=== PATIENT | female | born 1985 | race Caucasian/White ===

== ENCOUNTER 2016-08-25 15:45 | Emergency (ER) | payer OTHER ==
[~2016-08-25] VITALS: Ht 170.2 cm; Wt 90.1 kg
[~2016-08-25 15:45] MED LIST: ACET-1256 PO; LMC25 PO; LTHCR300 PO; QUET5TAB PO; WLLSR150 PO
[2016-08-25 15:49] VITALS: Ht 170.2 cm; Wt 90.1 kg
[2016-08-25] MEDS ORDERED: ACET-1256 PO (17:19)
[2016-08-25 17:26] LABS: BASO % 0.6 %; BASO ABS # 0.06 K/uL (0-0.2); COMPLETE YES; EOS % 3.8 %; HEMATOCRIT 41.1 % (37-47); IG% 0.1 %; LYMPH % 30.5 %; LYMPH ABS # 2.84 K/uL (1.2-3.4); MEAN CELL VOLUME 87.4 fL (80-100); MEAN CORPUSCULAR HGB CONC 34.3 g/dl (32-36); MEAN PLATELET VOLUME 9.4 fL (7.4-10.4); MONO % 8.7 %; NEUT % 56.3 %; PLATELET COUNT 298 K/uL (130-400); WHITE BLOOD COUNT 9.32 K/uL (4.8-10.8)
[2016-08-25 17:39] LABS: PROTHROMBIN TIME (PATIENT) 10.7 SECONDS (9.0-12.0)
[2016-08-25 17:43] LABS: ALT/SGPT 12 U/L (12-78); BLOOD UREA NITROGEN 8 mg/dl (7-18); BUN/CREATININE RATIO 12.9 (10-20); CALCIUM 9.5 mg/dl (8.5-10.1); CARBON DIOXIDE 26 mmol/L (21-32); CHLORIDE 105 mmol/L (98-107); CREATININE 0.62 mg/dl (0.60-1.20); GLUCOSE 79 mg/dl (70-99); POTASSIUM 3.9 mmol/L (3.5-5.1); SODIUM 141 mmol/L (136-145)
[2016-08-25 17:48] LABS: ALKALINE PHOSPHATASE 50 U/L (45-117); AST/SGOT 8 U/L (15-37)
--- NOTE | 2016-08-25 18:05 | DIAGNOSTIC IMAGING REPORT ---
CHEST ONE VIEW PORTABLE HISTORY: Evaluate Fever/Sepsis COMPARISON: Chest 04/21/2016. FINDINGS: The lungs are clear. Cardiac silhouette remains top normal in size. No pleural effusions. No pneumothorax. IMPRESSION: No significant change compared to the prior study. No acute process. Electronically signed by: Jovan Abreu M.D. 08/25/2016 6:03 PM Dictated Date/Time: 08/25/2016 6:02 PM
[2016-08-25 18:11] LABS: URINE APPEARANCE CLEAR (CLEAR); URINE BILIRUBIN NEG (NEG); URINE COLOR YELLOW; URINE NITRITE NEG (NEG); URINE SPECIFIC GRAVITY 1.003 (1.000-1.030); UROBILINOGEN NEG (NEG)
[2016-08-25 18:15] LABS: MANUAL MICROSCOPIC REQUIRED? NO; REVIEW REQ? NO
--- NOTE | 2016-08-25 18:42 | EMERGENCY ROOM VISIT NOTE ---
History Report prepared by Bette: Husam Mitchell Under the Supervision of: Dr. J Luis Castro D.O. First contact with patient: 17:00 Chief Complaint: CHEST PAIN Stated Complaint: DIZZY, CHEST PAIN Nursing Triage Summary: Dizzy and chest tightness that started 2 hours ago. Denies cardiac history. SOB. History of Present Illness The patient is a 30 year old female who presents to the Emergency Room with complaints of constant central chest pain beginning three hours prior to arrival. She describes her pain as tightness and currently rates her discomfort as a 7/10 in severity. The patient associates intermittent chest pain that radiates to the left side of her neck with today's symptoms. She states she was at home with her child, when the pain began. The patient notes she has a history of bronchitis and is a smoker. She states she was told she had a blood clot years ago after a and was on a blood thinner for a period of time. The patient denies experiencing symptoms like this in the past. She denies having issues with her heart or lungs in the past, as well. The patient denies recent illness, fever, cough, abdominal pain, shortness of breath, recent long travel, recent surgeries, and using unusual chemicals while cleaning. 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 A total of 10 systems reviewed and were otherwise negative. Past Medical & Surgical Medical Problems: (1) Acute appendicitis (2) ALCOHOL ABUSE-UNSPEC (3) Anxiety State Nos (4) Appendectomy (5) Bipolar disorder (6) Bronchitis (7) decreased movement (8) HYPERTENSION NOS (9) CONTRACTIONS (10) Prev Delivery, Antepartum Cond Or Complic (11) Pulmonary embolism (12) Spinal meningitis (13) Tobacco Use Disorder Social History Problems: (1) S/P section Family History Cancer Diabetes mellitus FHx: heart disease Hypertension Kidney disease or stones Seizures Social History Smoking Status: Current Every Day Smoker Alcohol Use: occasionally Drug Use: none Marital Status: Housing Status: lives with family Occupation Status: unemployed, other Current/Historical Medications Scheduled PRN Acetaminophen (Tylenol), 1,000 MG PO DIRECTED PRN for Pain Allergies Coded Allergies: Penicillins (Verified Allergy, Severe, CAN'T BREATH, 08/25/16) Morphine (Unverified Allergy, Intermediate, hives, 08/25/16) patient received toradol with the morphine. Questionable if allergic to toradol. Mushroom (Verified Allergy, Unknown, HIVES, 08/25/16) Patient states causes itching and hives AND THROAT CLOSES NUTS (Verified Allergy, Unknown, HIVES, 08/25/16) SWELLING Peanut (Verified Allergy, Unknown, HIVES, 08/25/16) Patient states causes itching and hives. Physical Exam Vital Signs Date Time Temp Pulse Resp B/P Pulse Ox O2 Delivery O2 Flow Rate FiO2 08/25/16 17:27 90 08/25/16 15:51 97 Room Air 08/25/16 15:49 36.9 116 18 132/94 96 Room Air Physical Exam CONSTITUTIONAL/VITAL SIGNS: Reviewed / noted above. GENERAL: Non-toxic in appearance. INTEGUMENTARY: Warm, dry, and [place]. HEAD: Normocephalic. EYES: without scleral icterus or trauma. ENT/OROPHARYNX: clear and moist. LYMPHADENOPATHY/NECK: Is supple without lymphadenopathy or meningismus. RESPIRATORY: Lungs clear and equal. CARDIOVASCULAR: Regular rate and rhythm. GI/ABDOMEN: Soft and nontender. No organomegaly or pulsatile mass. No rebound or guarding. Normal bowel sounds. EXTREMITIES: Warm and well perfused. BACK: No CVA tenderness. NEUROLOGICAL: Intact without focal deficits. PSYCHIATRIC: normal affect. MUSCULOSKELETAL: Normally developed with good muscle tone. Medical Decision & Procedures ER Provider Diagnostic Interpretation: X ray results and stated below per my interpretation and radiology interpretation. CHEST ONE VIEW PORTABLE HISTORY: Evaluate Fever/Sepsis COMPARISON: Chest 04/21/2016. FINDINGS: The lungs are clear. Cardiac silhouette remains top normal in size. No pleural effusions. No pneumothorax. IMPRESSION: No significant change compared to the prior study. No acute process. Electronically signed by: Jovan Abreu M.D. 08/25/2016 6:03 PM Dictated Date/Time: 08/25/2016 6:02 PM Laboratory Results 08/25/16 17:15 Red Blood Count 4.70, Mean Corpuscular Volume 87.4, Mean Corpuscular Hemoglobin 30.0, Mean Corpuscular Hemoglobin Concent 34.3, Mean Platelet Volume 9.4, Neutrophils (%) (Auto) 56.3, Lymphocytes (%) (Auto) 30.5, Monocytes (%) (Auto) 8.7, Eosinophils (%) (Auto) 3.8, Basophils (%) (Auto) 0.6, Neutrophils # (Auto) 5.25, Lymphocytes # (Auto) 2.84, Monocytes # (Auto) 0.81, Eosinophils # (Auto) 0.35, Basophils # (Auto) 0.06 08/25/16 17:15 Test 08/25/16 17:15 08/25/16 17:55 White Blood Count 9.32 K/uL (4.8-10.8) Red Blood Count 4.70 M/uL (4.2-5.4) Hemoglobin 14.1 g/dL (12.0-16.0) Hematocrit 41.1 % (37-47) Mean Corpuscular Volume 87.4 fL (80-100) Mean Corpuscular Hemoglobin 30.0 pg (25-34) Mean Corpuscular Hemoglobin Concent 34.3 g/dl (32-36) Platelet Count 298 K/uL (130-400) Mean Platelet Volume 9.4 fL (7.4-10.4) Neutrophils (%) (Auto) 56.3 % Lymphocytes (%) (Auto) 30.5 % Monocytes (%) (Auto) 8.7 % Eosinophils (%) (Auto) 3.8 % Basophils (%) (Auto) 0.6 % Neutrophils # (Auto) 5.25 K/uL (1.4-6.5) Lymphocytes # (Auto) 2.84 K/uL (1.2-3.4) Monocytes # (Auto) 0.81 K/uL (0.11-0.59) Eosinophils # (Auto) 0.35 K/uL (0-0.5) Basophils # (Auto) 0.06 K/uL (0-0.2) RDW Standard Deviation 43.8 fL (36.4-46.3) RDW Coefficient of Variation 13.6 % (11.5-14.5) Immature Granulocyte % (Auto) 0.1 % Immature Granulocyte # (Auto) 0.01 K/uL (0.00-0.02) Prothrombin Time 10.7 SECONDS (9.0-12.0) Prothromb Time International Ratio 1.0 (0.9-1.1) Activated Partial Thromboplast Time 26.4 SECONDS (21.0-31.0) Partial Thromboplastin Ratio 1.0 D-Dimer < 190 ug/L FEU (0-500) Anion Gap 10.0 mmol/L (3-11) Est Creatinine Clear Calc Drug Dose 155.7 ml/min Estimated GFR () 142.2 Estimated GFR (Non- 122.7 BUN/Creatinine Ratio 12.9 (10-20) Calcium Level 9.5 mg/dl (8.5-10.1) Total Bilirubin 0.3 mg/dl (0.2-1) Direct Bilirubin < 0.1 mg/dl (0-0.2) Aspartate Amino Transf (AST/SGOT) 8 U/L (15-37) Alanine Aminotransferase (ALT/SGPT) 12 U/L (12-78) Alkaline Phosphatase 50 U/L (45-117) Total Creatine Kinase 39 U/L (26-192) Creatine Kinase MB < 0.5 ng/ml (0.5-3.6) Creatine Kinase MB Ratio (0-3.0) Troponin I < 0.015 ng/ml (0-0.045) Total Protein 7.4 gm/dl (6.4-8.2) Albumin 4.1 gm/dl (3.4-5.0) Urine Color YELLOW Urine Appearance CLEAR (CLEAR) Urine pH 7.0 (4.5-7.5) Urine Specific [place] 1.003 (1.000-1.030) Urine Protein NEG (NEG) Urine Glucose (UA) NEG (NEG) Urine Ketones NEG (NEG) Urine Occult Blood NEG (NEG) Urine Nitrite NEG (NEG) Urine Bilirubin NEG (NEG) Urine Urobilinogen NEG (NEG) Urine Leukocyte Esterase NEG (NEG) Laboratory results as stated above per my review. ECG Indication: chest pain Rate (beats per minute): 86 Rhythm: normal sinus Findings: no ectopy, other (no acute injury) ED Course 1702: Previous medical records were reviewed. The patient was evaluated in room B11A. A complete history and physical examination was performed. 1841: On reevaluation, the patient is doing well. I discussed the results and findings with the patient. She verbalized agreement of the treatment plan. The patient was discharged home. Medical Decision the differential was considered includes acute myocardial infarction, acute coronary syndrome, myocarditis, pericarditis, pericardial effusions /tamponad, esophageal perforation, thoracic aortic dissection, pulmonary embolism, pneumonia, pneumothorax, pancreatitis, shingles, acute cholecystitis, perforated abdominal viscus. Physical 22-year-old female who presents to the ED with a chief complaint of chest pain for the last 3 hours. The patient states that she was cleaning the house when her symptoms occurred. She denies using chemicals. She describes a tightness in her mid chest area. The patient denies any associated shortness of breath, fevers or recent illness. She denies any trauma or other symptoms. Her physical exam reveals no sign of abnormalities. Her initial vital signs revealed a tachycardia with a heart rate 116. The patient is resting comfortably in no acute distress. Her EKG showed normal sinus rhythm at a rate of 86 without ectopy or acute injury. Chest x-ray did not show any acute disease. CBC is normal. D-dimer is negative. Troponin is negative. Complete metabolic panel was unremarkable. Urine did not show infection. The patient was told the results of the tests. She is felt to be stable for discharge and outpatient follow-up. Impression Primary Impression: Retrosternal chest pain Scribe Attestation The scribe's documentation has been prepared under my direction and personally reviewed by me in its entirety. I confirm that the note above accurately reflects all work, treatment, procedures, and medical decision making performed by me. Departure Information Dispostion Home / Self-Care Referrals No Doctor, Assigned (PCP) Forms HOME CARE DOCUMENTATION FORM, IMPORTANT VISIT INFORMATION Patient Instructions A Signature Page, Chest Pain - [facility], [facility] Additional Instructions Follow-up with your doctor for further care and evaluation in 1-2 days. Return to the emergency department for worsening or new symptoms or any concerns. You have been examined and treated today on an emergency basis only. This is not a substitute for, or an effort to provide, complete comprehensive medical care. It is impossible to recognize and treat all injuries or illnesses in a single emergency department visit. It is therefore important that you follow up closely with your doctor. Call as soon as possible for an appointment.
[2016-08-25 19:18] VITALS: BP 129/90; PULSE 97; TEMP 36.9; O2SAT 99
== END 2016-08-25 19:19 | disposition home or self-care (01) ==
LOC: C.EDB 15:46
DX: R07.2 Precordial pain (principal); F31.9 Bipolar disorder, unspecified; I10 Essential (primary) hypertension; Z86.711 Personal history of pulmonary embolism; F41.9 Anxiety disorder, unspecified; F17.210 Nicotine dependence, cigarettes, uncomplicated; Z80.9 Family history of malignant neoplasm, unspecified; Z83.3 Family history of diabetes mellitus; Z82.49 Family history of ischemic heart disease and other diseases of the circulatory system; Z84.1 Family history of disorders of kidney and ureter

== ENCOUNTER 2016-11-19 09:30 | Emergency (ER) | payer BC, OTHER ==
[~2016-11-19] VITALS: Ht 170.2 cm; Wt 87.5 kg
[~2016-11-19 09:30] MED LIST changes: -LMC25 PO; -LTHCR300 PO; -QUET5TAB PO; -WLLSR150 PO
[2016-11-19 09:36] VITALS: TEMP 36.8; Ht 170.2 cm; Wt 87.5 kg
[2016-11-19] MEDS ORDERED: DAYQLIQ PO (10:02)
--- NOTE | 2016-11-19 10:13 | EMERGENCY ROOM VISIT NOTE ---
History Report prepared by Bette: Marsha Bolden Under the Supervision of: Dr. Evelio Hansen M.D. First contact with patient: 10:06 Chief Complaint: VOMITING Stated Complaint: VOMITING, FEVER, CONGESTED Nursing Triage Summary: congestion and fever for 3 days, vomited today at work History of Present Illness The patient is a 30 year old female who presents to the Emergency Room with complaints of one episode of vomiting that occurred today prior to arrival. The patient states that over the last three days she has intermittently experienced a fever. She states that she has measured her temperature to be 101 degrees Fahrenheit. The patient states that she has taken DayQuil and Tylenol for her symptoms. She additionally associates congestion with her fever. The patient states that while at work today she vomited and is still feeling nauseous. She denies any abdominal pain. The patient states that she was instructed to go to the doctor by her employer. She notes a history of cholecystectomy and appendectomy. Source of History: patient Onset: today prior to arrival Position: other (global) Quality: other (vomiting) Timing: other (one episode) Associated Symptoms: + fevers, + nausea, No abdominal pain Note: Associated Symptoms: congestion Review of Systems All systems have been listed, reviewed, and are negative other than those previously mentioned. Please see Additional Medical History Sheet. Past Medical & Surgical Medical Problems: (1) Acute appendicitis (2) ALCOHOL ABUSE-UNSPEC (3) Anxiety State Nos (4) Appendectomy (5) Bipolar disorder (6) Bronchitis (7) decreased movement (8) HYPERTENSION NOS (9) CONTRACTIONS (10) Prev Delivery, Antepartum Cond Or Complic (11) Pulmonary embolism (12) Spinal meningitis (13) Tobacco Use Disorder Social History Problems: (1) S/P section Family History Cancer Diabetes mellitus FHx: heart disease Hypertension Kidney disease or stones Seizures Social History Smoking Status: Current Every Day Smoker Alcohol Use: none Drug Use: none Marital Status: other (seperated) Housing Status: lives alone Occupation Status: employed Current/Historical Medications Scheduled [Dayquil], 2 CAP PO UD Scheduled PRN Acetaminophen (Tylenol), 1,000 MG PO DIRECTED PRN for Pain Allergies Coded Allergies: Penicillins (Verified Allergy, Severe, CAN'T BREATH, 11/19/16) Morphine (Unverified Allergy, Intermediate, hives, 11/19/16) patient received toradol with the morphine. Questionable if allergic to toradol. Mushroom (Verified Allergy, Unknown, HIVES, 11/19/16) Patient states causes itching and hives AND THROAT CLOSES NUTS (Verified Allergy, Unknown, HIVES, 11/19/16) SWELLING Peanut (Verified Allergy, Unknown, HIVES, 11/19/16) Patient states causes itching and hives. Physical Exam Vital Signs Date Time Temp Pulse Resp B/P Pulse Ox O2 Delivery O2 Flow Rate FiO2 11/19/16 10:34 82 18 144/87 99 11/19/16 09:36 36.8 94 18 151/106 98 Room Air Physical Exam GENERAL: Patient awake, alert, oriented x 3. Patient follows commands. Patient does not appear toxic. Patient is adequately hydrated and well- nourished. SKIN: No erythema, pallor, cyanosis or rash HEENT: Normal head, pupils equal, reactive to light and accommodation. Ears normal. Oral cavity and posterior pharynx appear normal. No tenderness over frontal or maxillary sinuses. Neck: Without cervical adenopathy, no neck vein distention. LUNGS: Clear to auscultation. No wheezes, no rales, no rhonchi. HEART: No murmurs. No gallops. No rubs ABDOMEN: Well healed scar from cholecystectomy and appendectomy. No masses, no rebound, no hepatomegaly or splenomegaly. EXTREMITIES: No signs of trauma. No pedal or pretibial edema. No calf or thigh tenderness. NEUROLOGIC: Cranial nerves II-XII within normal limits. No gross motor sensory function deficits. Medical Decision & Procedures ED Course 1006: Past medical records reviewed. The patient was evaluated in room A12B. A complete history and physical examination was performed. I discussed the treatment plan with her and she verbalized complete understanding and agreement. She is ready to go home. Medical Decision Nurses notes reviewed. Medical history sheet reviewed. Differential diagnosis includes but is not limited to: URI, nausea/vomiting, metabolic disorder. 30-year-old female here with upper respiratory type symptoms. The patient also vomited once while working was encouraged to come here by her employer. Differential diagnosis includes upper respiratory infection, nausea/vomiting and metabolic disorder. Patient denies any chance of . She's had a tubal ligation. Patient does not feel nauseous now. Patient's symptoms are most consistent with upper respiratory infection. I do not believe she has a bacterial infection. She does not appear to have a sinus infection. Most likely she is swallowed mucus resulting in an upset stomach and vomiting. The patient does not want any blood work performed. The patient does need a note for work. Impression Primary Impression: Upper respiratory infection Additional Impression: Nausea & vomiting Scribe Attestation The scribe's documentation has been prepared under my direction and personally reviewed by me in its entirety. I confirm that the note above accurately reflects all work, treatment, procedures, and medical decision making performed by me. Departure Information Dispostion Home / Self-Care Referrals No Doctor, Assigned (PCP) Forms HOME CARE DOCUMENTATION FORM, IMPORTANT VISIT INFORMATION, Work Instructions Patient Instructions Colds Self Care, My [facility] Additional Instructions 650 mg of Tylenol every 4 hours as needed for aches, pain or fever. Drink extra fluids. REST You may use [id number] cold remedies as needed but avoid extra acetaminophen/Tylenol. Off work for 3 days. Problem Qualifiers
[2016-11-19 10:34] VITALS: BP 144/87; PULSE 82; O2SAT 99
[2017-07-19] MEDS ORDERED: LISD30CA4 PO (13:36)
== END 2016-11-19 10:36 | disposition home or self-care (01) ==
LOC: C.EDB 09:33 → C.EDA 10:36
DX: J06.9 Acute upper respiratory infection, unspecified (principal); R11.2 Nausea with vomiting, unspecified; F41.9 Anxiety disorder, unspecified; F31.9 Bipolar disorder, unspecified; I10 Essential (primary) hypertension; F17.200 Nicotine dependence, unspecified, uncomplicated; Z86.711 Personal history of pulmonary embolism; Z83.3 Family history of diabetes mellitus; Z82.49 Family history of ischemic heart disease and other diseases of the circulatory system; Z84.1 Family history of disorders of kidney and ureter; Z82.0 Family history of epilepsy and other diseases of the nervous system

== ENCOUNTER 2016-12-11 17:58 | Emergency (ER) | payer OTHER ==
[~2016-12-11] VITALS: Ht 167.6 cm; Wt 86.0 kg
[~2016-12-11 17:58] MED LIST changes: +DAYQLIQ PO
[2016-12-11 18:02] VITALS: TEMP 36.8; Ht 167.6 cm; Wt 86.0 kg
[2016-12-11] MEDS ORDERED: LAMO25TA PO (18:26)
[2016-12-11 18:50] VITALS: BP 126/70; PULSE 74; O2SAT 99
[2016-12-11] MEDS ORDERED: BCTROWC EXT (18:50)
--- NOTE | 2016-12-11 18:51 | EMERGENCY ROOM VISIT NOTE ---
ED Visit Note First contact with patient: 18:04 CHIEF COMPLAINT: Bump on right leg HISTORY OF PRESENT ILLNESS: This 31-year-old female patient presents to the emergency department ambulatory complaining of a painful bump on her right leg. The patient states that she first noticed this approximately 3 weeks ago and it appeared to be a pimple at that time. She states that she squeezed it approximately one week ago and it has been painful since then. She feels that the redness has been spreading. She rates her discomfort a 1/10. She denies any further drainage from the area or fevers/chills. REVIEW OF SYSTEMS: A 6 system review of systems was completed with positives and pertinent negatives listed in the HPI. ALLERGIES: Morphine, mushrooms, nuts, peanuts, penicillins MEDICATIONS: Lamictal PMH: Hypertension, kidney stones SOCIAL HISTORY: The patient lives locally with family. She is a smoker. PHYSICAL EXAM: Vital Signs: Reviewed Nurse's notes, vital signs stable. GENERAL : This is a 31-year-old female, in no acute distress, well-developed, well- nourished. SKIN: There is a small, 3 mm erythematous papule over the lateral aspect of the right lower leg with minimal surrounding erythema. No induration or drainage. Capillary refill less than 2 seconds. EMERGENCY DEPARTMENT COURSE: The patient was evaluated as above. She has a very small pimple-like lesion to the right lower leg. She will be given a prescription for Bactroban ointment and wound care instructions were discussed. She verbalized understanding and was discharged home in good condition. DIAGNOSIS: Cellulitis right leg Problem List Medical Problems: (1) Acute appendicitis Status: Resolved (2) ALCOHOL ABUSE-UNSPEC Status: Resolved (3) Anxiety State Nos Status: Chronic (4) Appendectomy Status: Resolved (5) Bipolar disorder Status: Chronic (6) Bronchitis Status: Resolved (7) HYPERTENSION NOS Status: Chronic (8) Prev Delivery, Antepartum Cond Or Complic Status: Resolved (9) Pulmonary embolism Status: Resolved (10) Spinal meningitis Status: Chronic (11) Tobacco Use Disorder Status: Chronic Social History Problems: (1) S/P section Status: Resolved Current/Historical Medications Scheduled Lamotrigine (Lamictal), 50 MG PO DAILY Mupirocin (Bactroban 2% Oint), 1 APPLN EXT BID Allergies Coded Allergies: Penicillins (Verified Allergy, Severe, CAN'T BREATH, 11/19/16) Morphine (Unverified Allergy, Intermediate, hives, 11/19/16) patient received toradol with the morphine. Questionable if allergic to toradol. Mushroom (Verified Allergy, Unknown, HIVES, 11/19/16) Patient states causes itching and hives AND THROAT CLOSES NUTS (Verified Allergy, Unknown, HIVES, 11/19/16) SWELLING Peanut (Verified Allergy, Unknown, HIVES, 11/19/16) Patient states causes itching and hives. Vital Signs Date Time Temp Pulse Resp B/P Pulse Ox O2 Delivery O2 Flow Rate FiO2 12/11/16 18:50 74 18 126/70 99 12/11/16 18:02 36.8 91 18 153/107 96 Room Air Departure Information Impression Primary Impression: Cellulitis Dispostion Home / Self-Care Condition GOOD Prescriptions Mupirocin (Bactroban 2% Oint) 66 Appln/22 Gm Oint 1 APPLN EXT BID for 10 Days, #1 TUBE Prov: Lynne Frias ., [place] 12/11/16 Referrals No Doctor, Assigned (PCP) Patient Instructions My [facility] Additional Instructions Apply Bactroban ointment twice a day for the next 10 days. Return for worsening redness, swelling or fevers. Problem Qualifiers Primary Impression: Cellulitis Site of cellulitis: extremity Site of cellulitis of extremity: lower extremity Laterality: right Qualified Codes: L03.115 - Cellulitis of right lower limb
[2017-07-19] MEDS ORDERED: LISD30CA4 PO (13:36)
== END 2016-12-11 18:50 | disposition home or self-care (01) ==
LOC: C.EDB 17:59 → C.EDD 18:50
DX: L03.115 Cellulitis of right lower limb (principal); I10 Essential (primary) hypertension; Z87.442 Personal history of urinary calculi; F17.210 Nicotine dependence, cigarettes, uncomplicated; F41.9 Anxiety disorder, unspecified; F31.9 Bipolar disorder, unspecified; Z86.61 Personal history of infections of the central nervous system; Z79.899 Other long term (current) drug therapy

== ENCOUNTER 2017-02-25 13:04 | Emergency (ER) | payer OTHER ==
[~2017-02-25] VITALS: Ht 167.6 cm; Wt 79.6 kg
[~2017-02-25 13:04] MED LIST changes: -ACET-1256 PO; -DAYQLIQ PO; +LAMO25TA PO
[2017-02-25 13:05] VITALS: TEMP 36.9; Ht 167.6 cm; Wt 79.6 kg
[2017-02-25 13:09] VITALS: O2SAT 98
[2017-02-25] MEDS ORDERED: SODIUM CHLORIDE 0.9% 1000ML 1,000 ML IV STA (13:38)
[2017-02-25 14:00] LABS: BASO % 0.6 %; BASO ABS # 0.05 K/uL (0-0.2); COMPLETE YES; EOS % 1.6 %; HEMATOCRIT 42.8 % (37-47); IG% 0.4 %; LYMPH % 23.9 %; LYMPH ABS # 1.92 K/uL (1.2-3.4); MEAN CELL VOLUME 88.2 fL (80-100); MEAN CORPUSCULAR HEMOGLOBIN 30.1 pg (25-34); MEAN CORPUSCULAR HGB CONC 34.1 g/dl (32-36); MEAN PLATELET VOLUME 9.5 fL (7.4-10.4); MONO % 6.1 %; NEUT % 67.4 %; PLATELET COUNT 348 K/uL (130-400); RED BLOOD COUNT 4.85 M/uL (4.2-5.4); WHITE BLOOD COUNT 8.04 K/uL (4.8-10.8)
[2017-02-25] MEDS ORDERED: QUET1TAB34 PO (14:13)
[2017-02-25] MEDS ORDERED: LORA-741 PO (14:13)
[2017-02-25] MEDS ORDERED: BUPR-79 PO (14:13)
[2017-02-25 14:19] LABS: BUN/CREATININE RATIO 8.1 (10-20); CALCIUM 9.3 mg/dl (8.5-10.1); CREATININE 0.83 mg/dl (0.60-1.20); POTASSIUM 3.6 mmol/L (3.5-5.1)
--- NOTE | 2017-02-25 14:22 | DIAGNOSTIC IMAGING REPORT ---
CHEST 2 VIEWS ROUTINE CLINICAL HISTORY: PLEURITIC CHEST PAIN, DIZZINESS dyspnea COMPARISON STUDY: 08/25/2016 FINDINGS: The bones soft tissues and hemidiaphragms are normal. The cardiomediastinal silhouette is normal. The lungs are clear. The pulmonary vasculature is normal. IMPRESSION: Negative chest. Electronically signed by: Dirk Lam M.D. 02/25/2017 2:20 PM Dictated Date/Time: 02/25/2017 2:20 PM
[2017-02-25 14:26] LABS: ALB/GLOB RATIO 1.2 (0.9-2)
[2017-02-25 14:28] LABS: CKMB/CK RATIO 1.6 (0-3.0); THYROID STIMULATING HORMONE 1.71 uIu/ml (0.300-4.500)
[2017-02-25 14:37] LABS: BENZODIAZEPINE, URINE NEG (NEG); COCAINE,URINE NEG (NEG); PHENCYCLIDINE, URINE NEG (NEG)
[2017-02-25] MEDS ORDERED: KETOROLAC TROMETHAMINE 30 MG/ML VIAL IV STA (15:00)
[2017-02-25] MEDS ORDERED: OPTIRAY 320 IV PRN (16:00)
--- NOTE | 2017-02-25 16:04 | DIAGNOSTIC IMAGING REPORT ---
CT ANGIOGRAPHY OF THE CHEST, PULMONARY EMBOLUS PROTOCOL CLINICAL HISTORY: Shortness of breath and chest pain. COMPARISON STUDY: Chest CT March 30, 2012 and chest radiograph February 25, 2017. TECHNIQUE: Following IV administration of 93 mL of [id number]-320, helical axial images of the chest were obtained utilizing the pulmonary embolus protocol. Maximal intensity projections and sagittal and coronal reformats were viewed on an independent 3D workstation. IV contrast was administered without complication. CT DOSE: 353.53 mGycm FINDINGS: No pulmonary emboli are identified. There is no evidence of thoracic aortic dissection. The size of the heart is normal. There is no pericardial effusion. No enlarged axillary, mediastinal or hilar lymph nodes are present. Central airways are patent. There is no consolidation. No pneumothorax or pleural effusion is present. Bony thorax is unremarkable. Gallbladder is surgically absent. Right middle lobe linear opacity is consistent with atelectasis. IMPRESSION: 1. No pulmonary emboli identified. 2. No acute intrathoracic findings. Electronically signed by: Mo Alston M.D. 02/25/2017 4:03 PM Dictated Date/Time: 02/25/2017 3:58 PM
[2017-02-25] MEDS ORDERED: LABETALOL HCL IV 5 MG/ML 20ML IV STA ×2 (16:52→17:57)
[2017-02-25] MEDS ORDERED: LABE100T23 PO (18:21)
--- NOTE | 2017-02-25 18:23 | EMERGENCY ROOM VISIT NOTE ---
History First contact with patient: 13:08 Chief Complaint: CHEST PAIN Stated Complaint: CHEST PAIN History of Present Illness Patient is a 31-year-old white female with past medical history significant for bipolar disorder and anxiety who presents to emergency department for evaluation of weakness, dizziness and chest pain that started this morning. Her symptoms started around 9:00 in the morning. She states that she has been feeling well and was in her usual state of health this week, and this morning when she woke up. She took her normal morning medications. She was getting ready to go run some errands, when she began to feel "weird." She felt dizzy and shaky, and began to note some midsternal chest pain when she took deep breaths. She tried eating and drinking, and lay down to her past, but none of this helped her symptoms. She also reports feeling like her heart was racing. She denies being ill with any cold or respiratory symptoms, and cone cough or fever. No urinary symptoms, abdominal pain, nausea or vomiting or diarrhea. Bowel movements have been normal. [facility] There she was found to be hypertensive and tachycardic. She had some nonspecific EKG changes and was thus sent to the emergency department. The patient reports that this does not feel similar to her anxiety. She has lorazepam at home, but does not like to take it. She denies any medication changes recently. She denies any alcohol or illicit drug use. There is no history of IV drug use. She has a remote history of a pulmonary embolism, which occurred postoperative from a . She is not presently on any anticoagulation. She traveled to [place] over the February, has not noticed any calf or leg pain or swelling. She denies any chance of secondary to a tubal ligation. She does have a history of hypertension, but is not presently on medication. Review of Systems Review of systems as per HPI. All other systems reviewed were negative. 10 systems reviewed. 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 (20) decreased movement (21) Dentalgia (22) Fall (23) Hematuria (24) HYPERTENSION NOS (25) Nausea & vomiting (26) Overdose (27) Overdose of antipsychotic (28) Pain, dental (29) Pain, dental (30) Pain, dental (31) Pelvic pain (32) CONTRACTIONS (33) Prev Delivery, Antepartum Cond Or Complic (34) Pulmonary embolism (35) Pyelonephritis (36) Pyelonephritis (37) Retrosternal chest pain (38) Spinal meningitis (39) Substernal precordial chest pain (40) Suicidal ideation (41) Suicidal ideation (42) Suicidal ideation (43) Tobacco Use Disorder (44) Tooth pain with chewing (45) Upper respiratory infection (46) Wrist sprain Surgical Problems: (1) Appendectomy (2) History of cholecystectomy (3) S/P section Social History Problems: (1) ALCOHOL ABUSE-UNSPEC Electronic medical records are reviewed and summarized as above/below. See Problem List. Family History Cancer Diabetes mellitus FHx: heart disease Hypertension Kidney disease or stones Seizures Social History Smoking Status: Unknown if Ever Smoked Alcohol Use: none Drug Use: none Marital Status: other Housing Status: lives alone Occupation Status: employed Current/Historical Medications Scheduled Bupropion (Wellbutrin Sr), 150 MG PO BID Labetalol Hcl (Labetalol Hcl), 1 TAB PO BID Lamotrigine (Lamictal), 50 MG PO DAILY Quetiapine Fumarate (Seroquel), 100 MG PO HS Scheduled PRN Lorazepam (Ativan), 0.5 MG PO Q6H PRN for Anxiety Allergies Coded Allergies: Penicillins (Verified Allergy, Severe, CAN'T BREATH, 02/25/17) Morphine (Unverified Allergy, Intermediate, hives, 02/25/17) patient received toradol with the morphine. Questionable if allergic to toradol. Mushroom (Verified Allergy, Unknown, HIVES, 02/25/17) Patient states causes itching and hives AND THROAT CLOSES NUTS (Verified Allergy, Unknown, HIVES, 02/25/17) SWELLING Peanut (Verified Allergy, Unknown, HIVES, 02/25/17) Patient states causes itching and hives. Physical Exam Vital Signs Date Time Temp Pulse Resp B/P (MAP) Pulse Ox O2 Delivery O2 Flow Rate FiO2 02/25/17 20:01 83 20 145/99 98 Room Air 02/25/17 19:51 78 20 146/102 97 Room Air 02/25/17 19:20 80 20 153/111 98 Room Air 02/25/17 18:45 73 16 148/122 96 Room Air 02/25/17 18:30 79 16 157/119 98 02/25/17 18:15 78 162/120 02/25/17 17:45 77 16 160/116 99 Room Air 02/25/17 17:34 76 16 153/120 99 Room Air 02/25/17 17:15 72 16 161/112 98 Room Air 02/25/17 17:07 93 20 158/114 98 02/25/17 16:02 95 02/25/17 15:57 95 16 157/113 100 Room Air 02/25/17 15:16 94 16 148/113 99 Room Air 02/25/17 14:01 91 18 147/103 98 Room Air 106 149/116 100 174/110 02/25/17 13:56 149/116 174/110 02/25/17 13:55 147/103 02/25/17 13:54 161/110 02/25/17 13:32 148/117 02/25/17 13:10 110 02/25/17 13:09 98 Room Air 02/25/17 13:05 98 Room Air 02/25/17 13:05 36.9 92 20 162/111 99 Room Air 02/25/17 13:04 162/111 Physical Exam CONSTITUTIONAL: Patient is a well-appearing 31-year-old white female who is awake and alert and in no acute distress. She is noted to be slightly tachycardic, heart rate in the 90s to 100s, blood pressure elevated in the 160s over 110s. EYES: Pupils equal, round, reactive to light and accommodation. EOMs intact without nystagmus. Sclera are anicteric. ENT: Tympanic membranes intact, with normal landmarks. External canals are clear. Oral and nasopharynx are clear. Mucous membranes are moist, no lesions , tongue and gums appear normal. NECK: No bruits auscultated. Supple without lymphadenopathy. No thyromegaly. No meningeal signs. Full active range of motion without discomfort. CARDIOVASCULAR: Regular rate and rhythm, with normal S1 and S2, no murmur or gallop or rub is heard. No carotid bruits auscultated. No JVD. Peripheral pulses easy to palpable. RESPIRATORY: Breath sounds equal and clear to auscultation without wheezes, rales, or rhonchi heard. Full and equal chest expansion without accessory muscle use or retractions. GI: Bowel sounds are present. Abdomen is soft, nontender, nondistended. No organomegaly. No pulsatile masses. No guarding or rebound. MUSCULOSKELETAL: Full range of motion of extremities x 4 with good strength. No cyanosis, edema, joint tenderness or swelling. No deformity. INTEGUMENTARY: No lesions or rash, normal skin turgor. NEUROLOGICAL: Alert, oriented, and cooperative. Cranial nerves, sensation and strength grossly intact. Pupils round, equal, and react to light, EOMs are full. LYMPH: No lymphadenopathy. Medical Decision & Procedures ER Provider Diagnostic Interpretation: CHEST 2 VIEWS ROUTINE CLINICAL HISTORY: PLEURITIC CHEST PAIN, DIZZINESS dyspnea COMPARISON STUDY: 08/25/2016 FINDINGS: The bones soft tissues and hemidiaphragms are normal. The cardiomediastinal silhouette is normal. The lungs are clear. The pulmonary vasculature is normal. IMPRESSION: Negative chest. CT ANGIOGRAPHY OF THE CHEST, PULMONARY EMBOLUS PROTOCOL CLINICAL HISTORY: Shortness of breath and chest pain. COMPARISON STUDY: Chest CT March 30, 2012 and chest radiograph February 25, 2017. TECHNIQUE: Following IV administration of 93 mL of [id number], helical axial images of the chest were obtained utilizing the pulmonary embolus protocol. Maximal intensity projections and sagittal and coronal reformats were viewed on an independent 3D workstation. IV contrast was administered without complication. CT DOSE: 353.53 mGycm FINDINGS: No pulmonary emboli are identified. There is no evidence of thoracic aortic dissection. The size of the heart is normal. There is no pericardial effusion. No enlarged axillary, mediastinal or hilar lymph nodes are present. Central airways are patent. There is no consolidation. No pneumothorax or pleural effusion is present. Bony thorax is unremarkable. Gallbladder is surgically absent. Right middle lobe linear opacity is consistent with atelectasis. IMPRESSION: 1. No pulmonary emboli identified. 2. No acute intrathoracic findings. Laboratory Results 02/25/17 13:00 Red Blood Count 4.85, Mean Corpuscular Volume 88.2, Mean Corpuscular Hemoglobin 30.1, Mean Corpuscular Hemoglobin Concent 34.1, Mean Platelet Volume 9.5, Neutrophils (%) (Auto) 67.4, Lymphocytes (%) (Auto) 23.9, Monocytes (%) (Auto) 6.1, Eosinophils (%) (Auto) 1.6, Basophils (%) (Auto) 0.6, Neutrophils # (Auto) 5.42, Lymphocytes # (Auto) 1.92, Monocytes # (Auto) 0.49, Eosinophils # (Auto) 0.13, Basophils # (Auto) 0.05 02/25/17 13:00 Test 02/25/17 13:00 02/25/17 13:50 White Blood Count 8.04 K/uL (4.8-10.8) Red Blood Count 4.85 M/uL (4.2-5.4) Hemoglobin 14.6 g/dL (12.0-16.0) Hematocrit 42.8 % (37-47) Mean Corpuscular Volume 88.2 fL (80-100) Mean Corpuscular Hemoglobin 30.1 pg (25-34) Mean Corpuscular Hemoglobin Concent 34.1 g/dl (32-36) Platelet Count 348 K/uL (130-400) Mean Platelet Volume 9.5 fL (7.4-10.4) Neutrophils (%) (Auto) 67.4 % Lymphocytes (%) (Auto) 23.9 % Monocytes (%) (Auto) 6.1 % Eosinophils (%) (Auto) 1.6 % Basophils (%) (Auto) 0.6 % Neutrophils # (Auto) 5.42 K/uL (1.4-6.5) Lymphocytes # (Auto) 1.92 K/uL (1.2-3.4) Monocytes # (Auto) 0.49 K/uL (0.11-0.59) Eosinophils # (Auto) 0.13 K/uL (0-0.5) Basophils # (Auto) 0.05 K/uL (0-0.2) RDW Standard Deviation 42.7 fL (36.4-46.3) RDW Coefficient of Variation 13.1 % (11.5-14.5) Immature Granulocyte % (Auto) 0.4 % Immature Granulocyte # (Auto) 0.03 K/uL (0.00-0.02) Anion Gap 10.0 mmol/L (3-11) Est Creatinine Clear Calc Drug Dose 106.4 ml/min Estimated GFR () 110.4 Estimated GFR (Non- 95.3 BUN/Creatinine Ratio 8.1 (10-20) Calcium Level 9.3 mg/dl (8.5-10.1) Total Bilirubin 0.5 mg/dl (0.2-1) Aspartate Amino Transf (AST/SGOT) 10 U/L (15-37) Alanine Aminotransferase (ALT/SGPT) 16 U/L (12-78) Alkaline Phosphatase 51 U/L (45-117) Total Creatine Kinase 45 U/L (26-192) Creatine Kinase MB 0.7 ng/ml (0.5-3.6) Creatine Kinase MB Ratio 1.6 (0-3.0) Total Protein 7.9 gm/dl (6.4-8.2) Albumin 4.3 gm/dl (3.4-5.0) Globulin 3.6 gm/dl (2.5-4.0) Albumin/Globulin Ratio 1.2 (0.9-2) Thyroid Stimulating Hormone (TSH) 1.710 uIu/ml (0.300-4.500) Urine Test NEG (NEG) Urine Opiates Screen NEG (NEG) Urine Methadone, Qualitative NEG (NEG) Urine Barbiturates NEG (NEG) Urine Phencyclidine (PCP) Level NEG (NEG) Ur Amphetamine/Methamphetamine NEG (NEG) MDMA (Ecstasy) Screen POS (NEG) Urine Benzodiazepines Screen NEG (NEG) Urine Cocaine Metabolite NEG (NEG) Urine Marijuana (THC) NEG (NEG) Medications Administered Medications (Trade) Dose Ordered Sig/Lynda Route Start Time Stop Time Status Last Admin Dose Admin Sodium Chloride 1,000 ml @ 999 mls/hr Q1H1M STAT IV 02/25/17 13:38 02/25/17 14:38 DC 02/25/17 14:02 999 MLS/HR Ketorolac Tromethamine (Toradol Inj) 30 mg NOW STAT IV 02/25/17 15:00 02/25/17 15:02 DC 02/25/17 15:00 30 MG Labetalol HCl (Normodyne IV) 10 mg NOW STAT IV 02/25/17 16:52 7/12/17 16:54 DC 02/25/17 17:07 10 MG Labetalol HCl (Normodyne IV) 20 mg NOW STAT IV 02/25/17 17:57 02/25/17 17:58 DC 02/25/17 18:19 20 MG Hydralazine HCl (HydrALAZINE INJ) 10 mg NOW STAT IV. 02/25/17 19:04 02/25/17 19:06 DC 02/25/17 19:18 10 MG Labetalol HCl (Normodyne Tab) 100 mg NOW ONCE PO 02/25/17 20:30 02/25/17 20:31 DC 02/25/17 20:27 100 MG ECG Indication: chest pain, weakness Rate (beats per minute): 95 Rhythm: normal sinus Findings: prolonged QT (QT/QTC 386/485) ED Course The patient was seen and assessed as above. Her old records are reviewed. IV lock was initiated. She was hydrated with normal saline solution. She is placed on cardiac catheterization technologist and EKG was performed. Orthostatic vitals did not demonstrate orthostasis. CBC with differential, CMP, cardiac enzymes, TSH, [id number] troponin and d-dimer were performed. Urinalysis, urine tox screen and urine test were also performed. She was given Toradol 30 mg IV for her chest pain. Laboratory studies noted a normal white count. H&H is normal. No gross electrolyte imbalance which required correction. Renal functions and liver functions are not elevated. Cardiac enzymes are negative 1, TSH is indicative of a euthyroid state. Urine dip was clear, test was negative, urine toxicology screen is positive for MDMA, likely related to her psychiatric medications. [id number] d-dimer was high normal at 347. The patient remained mildly tachycardic, and persistently hypertensive during her emergency department stay. Given her pleuritic chest pain, recent travel, smoking and history of pulmonary embolism, chest CT was performed, which was negative for PE. All laboratory and diagnostic imaging studies were reviewed with attending physician. She was treated with labetalol 10 mg IV, subsequently labetalol 20 mg IV for the hypertension, with improvement in her heart rate, however the pressure did not respond significantly. She was then given hydralazine 10 mg IV. This did improve her blood pressure into the 140s over 90s. She was given labetalol 100 mg orally, and a prescription for a 30 day supply. She was educated on the importance of close follow-up with her primary care provider for further care and management of her blood pressure. The patient has a history of hypertension. She was previously on an antihypertensive, but this was discontinued at some point. She presents the emergency department for evaluation of dizziness, weakness and some pleuritic midsternal chest pain. ED workup did not demonstrate any evidence for ACS, acute IA or pulmonary embolus. She was hypertensive, but does not have findings consistent with hypertensive emergency. Blood pressure did respond to antihypertensives administered in the emergency department. Differential diagnosis also includes, myocarditis, pericarditis, pericardial effusions / tamponade, esophageal perforation, pulmonary embolism, pneumonia, pneumothorax , cardiomyopathy, congestive heart failure, anemia, COPD/asthma exacerbation, musculoskeletal, anxiety, costochondritis, among others. The patient was discharged home in stable condition with her significant other. She was advised to follow-up closely with her primary care provider, and to return to the emergency department for worsening symptoms. Medication reconciliation: I attest that I have personally reviewed the patient' s current medication list. Blood pressure screening: Patient was found to have an elevated blood pressure and was referred to their primary doctor for recheck and further treatment. Medical Decision See emergency Department course Impression Primary Impression: Pleuritic chest pain Additional Impression: Hypertension Departure Information Prescriptions Labetalol Hcl (LABETALOL HCL) 100 Mg Tab 1 TAB PO BID for 30 Days, #60 TAB Prov: Lynette Elizondo PA 02/25/17 Referrals No Doctor, Assigned (PCP) Patient Instructions My [facility] Additional Instructions Labetalol 100 m tablet twice daily. Acetaminophen(Tylenol) may be used for fever or pain. Use 1000mg every six hours as needed. Avoid using more than 3000mg in a 24 hour period. Rest and drink plenty of fluids as tolerated. Continue current medications. Avoid strenuous activities and anything that worsens your pain. Resume normal activities once your symptoms resolve. Return to the ER immediately for worsening or persistent chest pain, abdominal pain, vomiting, fevers, chest pains, difficulty breathing, worsening of your condition, or as needed. Follow up with your primary physician in 2-3 days for a recheck of your current condition. Problem Qualifiers
[2017-02-25] MEDS ORDERED: HydrALAZINE HCL 20 MG/ML VIAL IV. STA (19:04)
[2017-02-25 20:01] VITALS: BP 145/99; PULSE 83; O2SAT 98
[2017-02-25] MEDS ORDERED: LABETALOL HCL 100 MG TAB PO ONE (20:30)
[2017-02-26 11:21] LABS: POINT OF CARE TROPONIN I < 0.030 ng/ml (0-0.045)
== END 2017-02-25 20:30 | disposition home or self-care (01) ==
LOC: EDUNIT# 13:04 → C.EDB 13:06
DX: R07.81 Pleurodynia (principal); I10 Essential (primary) hypertension; R06.02 Shortness of breath

== ENCOUNTER → 2017-03-05 | Outpatient (CLI) | payer OTHER ==
[~2017-03-05] MED LIST changes: +BUPR-79 PO; +LABE100T23 PO; +LORA-741 PO; +QUET1TAB34 PO
[2017-03-05 19:34] LABS: BASO % 0.6 %; BASO ABS # 0.06 K/uL (0-0.2); COMPLETE YES; EOS % 1.8 %; HEMATOCRIT 40.8 % (37-47); IG% 0.1 %; LYMPH % 27.3 %; LYMPH ABS # 2.74 K/uL (1.2-3.4); MEAN CELL VOLUME 90.3 fL (80-100); MEAN CORPUSCULAR HEMOGLOBIN 30.8 pg (25-34); MEAN CORPUSCULAR HGB CONC 34.1 g/dl (32-36); MEAN PLATELET VOLUME 9.9 fL (7.4-10.4); MONO % 6.4 %; NEUT % 63.8 %; PLATELET COUNT 319 K/uL (130-400); RED BLOOD COUNT 4.52 M/uL (4.2-5.4); WHITE BLOOD COUNT 10.05 K/uL (4.8-10.8)
[2017-03-05 19:36] LABS: URINE APPEARANCE CLEAR (CLEAR); URINE BILIRUBIN NEG (NEG); URINE COLOR YELLOW; URINE NITRITE NEG (NEG); URINE PH 7.5 (4.5-7.5); URINE SPECIFIC GRAVITY 1.016 (1.000-1.030); UROBILINOGEN NEG (NEG)
[2017-03-05 19:38] LABS: PREG INTERNAL NEGATIVE QC NEG CLEAR BACKGROUND; PREG INTERNAL POSITIVE QC POS CONTROL LINE
[2017-03-05 19:44] LABS: MANUAL MICROSCOPIC REQUIRED? NO; REVIEW REQ? NO
[2017-03-05 19:54] LABS: ALT/SGPT 18 U/L (12-78); AST/SGOT 12 U/L (15-37); BLOOD UREA NITROGEN 6 mg/dl (7-18); BUN/CREATININE RATIO 8.1 (10-20); CALCIUM 9.3 mg/dl (8.5-10.1); CARBON DIOXIDE 26 mmol/L (21-32); CHLORIDE 109 mmol/L (98-107); CREATININE 0.75 mg/dl (0.60-1.20); GLUCOSE 79 mg/dl (70-99); POTASSIUM 3.1 mmol/L (3.5-5.1); SODIUM 141 mmol/L (136-145)
[2017-03-05 20:04] LABS: ALB/GLOB RATIO 1.3 (0.9-2); ALKALINE PHOSPHATASE 45 U/L (45-117)
[2017-03-05 20:15] LABS: BENZODIAZEPINE, URINE NEG (NEG); COCAINE,URINE NEG (NEG); PHENCYCLIDINE, URINE NEG (NEG)
== END ==
LOC: C.LAB 17:11
PROVIDERS: ATTEND Psychiatry & Neurology Psychiatry
DX: F90.9 Attention-deficit hyperactivity disorder, unspecified type (principal)

== ENCOUNTER 2017-06-06 13:09 | Emergency (ER) | payer OTHER ==
[~2017-06-06] VITALS: Ht 167.6 cm; Wt 76.9 kg
[2017-06-06 13:11] VITALS: TEMP 36.7; Ht 167.6 cm; Wt 76.9 kg
--- NOTE | 2017-06-06 13:28 | EMERGENCY ROOM VISIT NOTE ---
ED Visit Note First contact with patient: 13:14 CHIEF COMPLAINT: Sore throat HISTORY OF PRESENT ILLNESS: This 31-year-old female presents the ER with chief complaint of a sore throat which started this morning. The patient denies any head congestion, ear pain, fever, cough. The patient states that she has 3 children with strep throat. REVIEW OF SYSTEMS:6 system review was performed and was negative unless stated otherwise in history of present illness. PMH: The patient is healthy; hypertension, appendectomy, cholecystectomy, 4 C- sections, meningitis SOCIAL HISTORY: Patient lives with her and children. The patient admits to tobacco use but denies any alcohol use. PHYSICAL EXAM: Vital Signs were reviewed: Reviewed Nurse's notes and agree. GENERAL: 31-year-old female appears in no acute distress. MENTAL STATUS: Alert, oriented, coherent. EARS: Canals clear. TMs good light reflex, no erythema or fluid level noted. NOSE: Nasal mucosa without erythema engorgement. PHARYNX: Mild erythema, no edema noted. No exudate noted. Airway is adequate. NECK: Supple, No lymphadenopathy noted. The patient is tender to palpation over the bilateral anterior cervical chains. No posterior nodes noted. LUNGS: Clear to auscultation without wheezes rales or rhonchi. CARDIAC: Regular rate and rhythm without murmur. SKIN: No rashes noted. EMERGENCY COURSE: The patient was evaluated. Rapid strep was negative, culture is pending. Due to the patient having 3 children with strep I will prophylactically treat the patient. The patient was discharged home in stable condition. DIAGNOSIS: Acute pharyngitis, DISCHARGE INSTRUCTIONS & TREATMENT: Follow sore throat handouts instructions. Take Zithromax as prescribed. Call in 24 hours for throat culture results. If it is negative you can stop the Zithromax. Tylenol or ibuprofen as needed for fever and pain. Problem List Medical Problems: (1) Abdominal pain in female patient Status: Resolved (2) Abdominal pain in female patient Status: Resolved (3) Acute anxiety Status: Resolved (4) Acute appendicitis Status: Resolved (5) Acute bronchitis Status: Resolved (6) Acute cholecystitis Status: Resolved (7) Alcohol intoxication Status: Resolved (8) Alcoholic intoxication Status: Resolved (9) Allergic reaction Status: Resolved (10) Allergic reaction Status: Resolved (11) Anxiety State Nos Status: Chronic (12) Auditory hallucinations Status: Resolved (13) Bipolar disorder Status: Chronic (14) Bipolar disorder Status: Resolved (15) Bipolar disorder Status: Resolved (16) Broken tooth Status: Resolved (17) Bronchitis Status: Resolved (18) Cellulitis Status: Resolved (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 Status: Resolved (20) decreased movement Status: Resolved (21) Dentalgia Status: Resolved (22) Fall Status: Resolved (23) Hematuria Status: Resolved (24) HYPERTENSION NOS Status: Chronic (25) Nausea & vomiting Status: Resolved (26) Overdose Status: Resolved (27) Overdose of antipsychotic Status: Resolved (28) Pain, dental Status: Resolved (29) Pain, dental Status: Resolved (30) Pain, dental Status: Resolved (31) Pelvic pain Status: Resolved (32) CONTRACTIONS Status: Resolved (33) Prev Delivery, Antepartum Cond Or Complic Status: Resolved (34) Pulmonary embolism Status: Resolved (35) Pyelonephritis Status: Resolved (36) Pyelonephritis Status: Resolved (37) Retrosternal chest pain Status: Resolved (38) Spinal meningitis Status: Resolved (39) Substernal precordial chest pain Status: Resolved (40) Suicidal ideation Status: Resolved (41) Suicidal ideation Status: Resolved (42) Suicidal ideation Status: Resolved (43) Tobacco Use Disorder Status: Chronic (44) Tooth pain with chewing Status: Resolved (45) Upper respiratory infection Status: Resolved (46) Wrist sprain Status: Resolved Surgical Problems: (1) Appendectomy Status: Resolved (2) History of cholecystectomy Status: Resolved (3) S/P section Status: Resolved Social History Problems: (1) ALCOHOL ABUSE-UNSPEC Status: Resolved Current/Historical Medications Scheduled Bupropion (Wellbutrin Sr), 150 MG PO BID Labetalol Hcl (Labetalol Hcl), 1 TAB PO BID Lamotrigine (Lamictal), 50 MG PO DAILY Quetiapine Fumarate (Seroquel), 100 MG PO HS Scheduled PRN Lorazepam (Ativan), 0.5 MG PO Q6H PRN for Anxiety Allergies Coded Allergies: Penicillins (Verified Allergy, Severe, CAN'T BREATH, 02/25/17) Morphine (Unverified Allergy, Intermediate, hives, 02/25/17) patient received toradol with the morphine. Questionable if allergic to toradol. Mushroom (Verified Allergy, Unknown, HIVES, 02/25/17) Patient states causes itching and hives AND THROAT CLOSES NUTS (Verified Allergy, Unknown, HIVES, 02/25/17) SWELLING Peanut (Verified Allergy, Unknown, HIVES, 02/25/17) Patient states causes itching and hives. Vital Signs Date Time Temp Pulse Resp B/P (MAP) Pulse Ox O2 Delivery O2 Flow Rate FiO2 06/06/17 13:11 36.7 105 18 141/106 96 06/06/17 13:11 97 Room Air Departure Information Referrals No Doctor, Assigned (PCP) Patient Instructions [facility]
[2017-06-06] MEDS ORDERED: AZIT500T PO (13:30)
[2017-06-06] MEDS ORDERED: LISD30CA4 PO (13:36)
[2017-06-06 13:41] VITALS: BP 143/86; PULSE 90; O2SAT 97
== END 2017-06-06 13:43 | disposition home or self-care (01) ==
LOC: C.EDB 13:10 → C.EDD 13:43
DX: J02.9 Acute pharyngitis, unspecified (principal); I10 Essential (primary) hypertension; F31.9 Bipolar disorder, unspecified; F41.9 Anxiety disorder, unspecified; Z79.899 Other long term (current) drug therapy; Z86.19 Personal history of other infectious and parasitic diseases; F17.200 Nicotine dependence, unspecified, uncomplicated

== ENCOUNTER 2017-07-18 18:19 | Emergency (ER) | payer OTHER ==
[~2017-07-18] VITALS: Ht 165.1 cm; Wt 78.5 kg
[~2017-07-18 18:19] MED LIST changes: +AZIT500T PO
[2017-07-18 18:22] VITALS: TEMP 36.5; Ht 165.1 cm; Wt 78.5 kg
--- NOTE | 2017-07-18 18:57 | DIAGNOSTIC IMAGING REPORT ---
CHEST ONE VIEW PORTABLE HISTORY: 31 years-old Female chest pain acute atypical chest pain COMPARISON: Chest radiographs and chest CT 02/25/2017 TECHNIQUE: Portable AP view of the chest FINDINGS: Cardiomediastinal and hilar silhouettes are within normal limits. No pneumothorax, pleural effusion, focal airspace consolidation or overt pulmonary edema. Bones of the chest are grossly intact. IMPRESSION: No acute cardiopulmonary process. The above report was generated using voice recognition software. It may contain grammatical, syntax or spelling errors. Electronically signed by: Jasiel Armas M.D. 07/18/2017 6:56 PM Dictated Date/Time: 07/18/2017 6:54 PM
[2017-07-18 19:00] LABS: BASO % 0.4 %; BASO ABS # 0.04 K/uL (0-0.2); COMPLETE YES; EOS % 3.2 %; HEMATOCRIT 42.8 % (37-47); IG% 0.2 %; LYMPH % 29.2 %; LYMPH ABS # 3.14 K/uL (1.2-3.4); MEAN CELL VOLUME 89.4 fL (80-100); MEAN CORPUSCULAR HEMOGLOBIN 30.5 pg (25-34); MEAN CORPUSCULAR HGB CONC 34.1 g/dl (32-36); MEAN PLATELET VOLUME 9.6 fL (7.4-10.4); MONO % 8.8 %; NEUT % 58.2 %; PLATELET COUNT 345 K/uL (130-400); RED BLOOD COUNT 4.79 M/uL (4.2-5.4); WHITE BLOOD COUNT 10.77 K/uL (4.8-10.8)
[2017-07-18 19:07] LABS: URINE APPEARANCE CLEAR (CLEAR); URINE BILIRUBIN NEG (NEG); URINE COLOR YELLOW; URINE NITRITE NEG (NEG); URINE PH 6.5 (4.5-7.5); URINE SPECIFIC GRAVITY 1.023 (1.000-1.030); UROBILINOGEN NEG (NEG); ZZUR CULT IF INDIC CLEAN CATCH NO
[2017-07-18 19:14] LABS: ALT/SGPT 15 U/L (12-78); AST/SGOT 8 U/L (15-37); BLOOD UREA NITROGEN 14 mg/dl (7-18); BUN/CREATININE RATIO 18.9 (10-20); CARBON DIOXIDE 25 mmol/L (21-32); CHLORIDE 106 mmol/L (98-107); CREATININE 0.72 mg/dl (0.60-1.20); GLUCOSE 81 mg/dl (70-99); POTASSIUM 3.4 mmol/L (3.5-5.1); SODIUM 137 mmol/L (136-145)
[2017-07-18] MEDS ORDERED: BENZ0.5T2 PO (19:14)
[2017-07-18 19:16] LABS: MANUAL MICROSCOPIC REQUIRED? NO; REVIEW REQ? NO
[2017-07-18] MEDS ORDERED: BUPR100T8 PO (19:16)
[2017-07-18] MEDS ORDERED: LBT/100 PO (19:17)
[2017-07-18 19:19] LABS: ALKALINE PHOSPHATASE 56 U/L (45-117)
[2017-07-18] MEDS ORDERED: LORA-741 PO (19:55)
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
[2017-07-18 20:07] VITALS: BP 151/103; PULSE 94; O2SAT 96
[2017-07-19] MEDS ORDERED: LISD30CA4 PO (13:36)
[2017-07-19] MEDS ORDERED: WLLSR100 PO (22:21)
[2017-07-19] MEDS ORDERED: LMC25 PO (22:21)
[2017-07-19] MEDS ORDERED: CLON0.5T3 PO (22:21)
[2017-07-19] MEDS ORDERED: QUET1TAB10 PO (22:21)
[2017-07-19] MEDS ORDERED: BENZ0.5T28 PO (22:21)
== END 2017-07-18 20:09 | disposition home or self-care (01) ==
LOC: C.EDB 18:20 → C.EDA 20:09
DX: R07.2 Precordial pain (principal); I10 Essential (primary) hypertension; F41.9 Anxiety disorder, unspecified; F17.200 Nicotine dependence, unspecified, uncomplicated; Z86.711 Personal history of pulmonary embolism; Z83.3 Family history of diabetes mellitus; Z82.49 Family history of ischemic heart disease and other diseases of the circulatory system; Z84.1 Family history of disorders of kidney and ureter; Z82.0 Family history of epilepsy and other diseases of the nervous system

== ENCOUNTER 2017-07-19 21:32 | Emergency (ER) | payer OTHER ==
[~2017-07-19] VITALS: Ht 165.1 cm; Wt 61.0 kg
[~2017-07-19 21:32] MED LIST changes: -AZIT500T PO; +BENZ0.5T2 PO; -BUPR-79 PO; +BUPR100T8 PO; -LABE100T23 PO; +LBT/100 PO; +LISD30CA4 PO
[2017-07-19 21:40] VITALS: TEMP 36.7; Ht 165.1 cm; Wt 61.0 kg
[2017-07-19] MEDS ORDERED: ONDANSETRON INJ 2 MG/ML 2 ML VIAL IV STA ×2 (21:54→23:54)
[2017-07-19] MEDS ORDERED: HYDROmorphone INJ 1 MG/ML SYR IV STA (21:54)
[2017-07-19] MEDS ORDERED: SODIUM CHLORIDE 0.9% 1000ML 1,000 ML IV ONE (22:00)
[2017-07-19] MEDS ORDERED: WLLSR100 PO (22:21)
[2017-07-19] MEDS ORDERED: QUET1TAB10 PO (22:21)
[2017-07-19] MEDS ORDERED: BENZ0.5T28 PO (22:21)
[2017-07-19] MEDS ORDERED: LMC25 PO (22:21)
[2017-07-19] MEDS ORDERED: CLON0.5T3 PO (22:21)
[2017-07-19 22:45] LABS: BASO % 0.4 %; BASO ABS # 0.04 K/uL (0-0.2); COMPLETE YES; EOS % 0.6 %; IG% 0.2 %; LYMPH % 13.4 %; LYMPH ABS # 1.51 K/uL (1.2-3.4); MEAN CELL VOLUME 88.8 fL (80-100); MEAN CORPUSCULAR HEMOGLOBIN 29.6 pg (25-34); MEAN CORPUSCULAR HGB CONC 33.3 g/dl (32-36); MONO % 5.6 %; NEUT % 79.8 %; PLATELET COUNT 327 K/uL (130-400); RED BLOOD COUNT 4.73 M/uL (4.2-5.4); WHITE BLOOD COUNT 11.28 K/uL (4.8-10.8)
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
[2017-07-19 22:53] LABS: ALB/GLOB RATIO 1.1 (0.9-2); ALKALINE PHOSPHATASE 52 U/L (45-117); ALT/SGPT 17 U/L (12-78); BUN/CREATININE RATIO 16.6 (10-20); CALCIUM 8.9 mg/dl (8.5-10.1); CARBON DIOXIDE 24 mmol/L (21-32); CHLORIDE 108 mmol/L (98-107); CREATININE 0.57 mg/dl (0.60-1.20); GLUCOSE 98 mg/dl (70-99); SODIUM 141 mmol/L (136-145)
[2017-07-19 22:54] LABS: BLOOD UREA NITROGEN 9 mg/dl (7-18)
[2017-07-19] MEDS: HYDROmorphone INJ 0.5 MG/0.5 ML SYR IV PRN (23:09)
[2017-07-19] MEDS ORDERED: OPTIRAY 320 IV PRN (23:15)
[2017-07-20] MEDS: HYDROmorphone INJ 0.5 MG/0.5 ML SYR IV PRN (00:27)
[2017-07-20] MEDS ORDERED: ONDA4TAB10 SL (00:42)
[2017-07-20] MEDS ORDERED: OXYC1TAB3 PO (00:42)
[2017-07-20 00:45] VITALS: BP 162/112; PULSE 95; O2SAT 96
[2017-07-20] MEDS ORDERED: OXYCODONE IR HOME PACK PO ONE (00:45)
[2017-07-20] MEDS ORDERED: ONDANSETRON HOME PACK 4MG OD TAB PO ONE (00:45)
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
== END 2017-07-20 01:02 | disposition home or self-care (01) ==
LOC: EDBD 21:32 → C.EDC 21:36
DX: S00.83XA Contusion of other part of head, initial encounter (principal); Y04.8XXA Assault by other bodily force, initial encounter; Y92.019 Unspecified place in single-family (private) house as the place of occurrence of the external cause; Y07.01 Husband, perpetrator of maltreatment and neglect; F31.9 Bipolar disorder, unspecified; I10 Essential (primary) hypertension; F17.200 Nicotine dependence, unspecified, uncomplicated; Z90.89 Acquired absence of other organs; Z90.49 Acquired absence of other specified parts of digestive tract; Z86.711 Personal history of pulmonary embolism; Z80.9 Family history of malignant neoplasm, unspecified; Z83.3 Family history of diabetes mellitus; Z82.49 Family history of ischemic heart disease and other diseases of the circulatory system; Z84.1 Family history of disorders of kidney and ureter; Z82.0 Family history of epilepsy and other diseases of the nervous system

== ENCOUNTER 2017-07-27 09:23 | Emergency (ER) | payer OTHER ==
[~2017-07-27] VITALS: Ht 167.6 cm; Wt 78.5 kg
[~2017-07-27 09:23] MED LIST changes: -BENZ0.5T2 PO; +BENZ0.5T28 PO; -BUPR100T8 PO; +CLON0.5T3 PO; -LAMO25TA PO; -LBT/100 PO; +LMC25 PO; -LORA-741 PO; +ONDA4TAB10 SL; +OXYC1TAB3 PO; +QUET1TAB10 PO; -QUET1TAB34 PO; +WLLSR100 PO
[2017-07-27 09:29] VITALS: TEMP 36.7; Ht 167.6 cm; Wt 78.5 kg
[2017-07-27] MEDS ORDERED: DiphenhydrAMINE HCL 50 MG/ML VIAL IV STA (10:44)
[2017-07-27] MEDS ORDERED: SODIUM CHLORIDE 0.9% 1000ML 2,000 ML IV STA (10:44)
[2017-07-27] MEDS ORDERED: METOCLOPRAMIDE HCL INJ 5 MG/ML 2 ML VIAL IV STA (10:44)
[2017-07-27] MEDS ORDERED: KETOROLAC TROMETHAMINE 30 MG/ML VIAL IV STA (10:44)
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
[2017-07-27 14:02] VITALS: BP 154/110; PULSE 101; O2SAT 98
== END 2017-07-27 14:03 | disposition home or self-care (01) ==
LOC: C.EDB 09:25
DX: S06.0X9A Concussion with loss of consciousness of unspecified duration, initial encounter (principal); Y00.XXXA Assault by blunt object, initial encounter; Y07.01 Husband, perpetrator of maltreatment and neglect; F41.9 Anxiety disorder, unspecified; F32.9 Major depressive disorder, single episode, unspecified; I10 Essential (primary) hypertension; F17.200 Nicotine dependence, unspecified, uncomplicated; Z86.711 Personal history of pulmonary embolism; Z90.89 Acquired absence of other organs; Z90.49 Acquired absence of other specified parts of digestive tract

== ENCOUNTER 2017-08-24 16:20 | Emergency (ER) | payer OTHER ==
[~2017-08-24] VITALS: Ht 167.6 cm; Wt 82.3 kg
[~2017-08-24 16:20] MED LIST changes: -BENZ0.5T28 PO; -CLON0.5T3 PO; -LMC25 PO; -OXYC1TAB3 PO; -QUET1TAB10 PO; -WLLSR100 PO
[2017-08-24 16:29] VITALS: BP 155/100; PULSE 110; TEMP 36.4; O2SAT 96; Ht 167.6 cm; Wt 82.3 kg
[2017-08-24] MEDS ORDERED: ACET-1256 PO (17:05)
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
[2017-08-24] MEDS ORDERED: BENZ0.5T28 PO (22:21)
[2017-08-24] MEDS ORDERED: QUET1TAB10 PO (22:21)
[2017-08-24] MEDS ORDERED: WLLSR100 PO (22:21)
[2017-08-24] MEDS ORDERED: LMC25 PO (22:21)
== END 2017-08-24 17:24 | disposition home or self-care (01) ==
LOC: C.EDB 16:22
DX: R51 Headache (principal); H53.8 Other visual disturbances; R04.0 Epistaxis; F41.9 Anxiety disorder, unspecified; F31.9 Bipolar disorder, unspecified; I10 Essential (primary) hypertension; Z86.711 Personal history of pulmonary embolism; N12 Tubulo-interstitial nephritis, not specified as acute or chronic; Z91.5 Personal history of self-harm; Z80.9 Family history of malignant neoplasm, unspecified; Z83.3 Family history of diabetes mellitus; Z82.49 Family history of ischemic heart disease and other diseases of the circulatory system; Z84.1 Family history of disorders of kidney and ureter; F17.210 Nicotine dependence, cigarettes, uncomplicated; Z79.899 Other long term (current) drug therapy

== ENCOUNTER 2017-12-16 07:58 | Emergency (ER) | payer OTHER ==
[~2017-12-16] VITALS: Ht 162.6 cm; Wt 85.8 kg
[~2017-12-16 07:58] MED LIST changes: +ACET-1256 PO; +BENZ0.5T28 PO; +LMC25 PO; +QUET1TAB10 PO; +WLLSR100 PO
[2017-12-16 08:16] VITALS: TEMP 36.6; Ht 162.6 cm; Wt 85.8 kg
[2017-12-16] MEDS ORDERED: ALBUT/IPRATROP 3MG/0.5MG NEB 3 ML VIAL INH STA (08:37)
[2017-12-16 08:45] VITALS: O2SAT 99
[2017-12-16] MEDS ORDERED: ACETAMINOPHEN 500 MG TAB PO STA ×2 (08:52→11:18)
[2017-12-16 08:55] LABS: BASO % 0.4 %; BASO ABS # 0.04 K/uL (0-0.2); EOS % 2.9 %; EOS ABS # 0.28 K/uL (0-0.5); HEMATOCRIT 41.3 % (37-47); HEMOGLOBIN 13.7 g/dL (12.0-16.0); IG# 0.03 K/uL (0.00-0.02); LYMPH ABS # 2.01 K/uL (1.2-3.4); MEAN CELL VOLUME 82.8 fL (80-100); MEAN CORPUSCULAR HEMOGLOBIN 27.5 pg (25-34); MEAN CORPUSCULAR HGB CONC 33.2 g/dl (32-36); MEAN PLATELET VOLUME 8.5 fL (7.4-10.4); MONO % 9.6 %; MONO ABS # 0.92 K/uL (0.11-0.59); NEUT % 65.8 %; NEUT ABS # 6.29 K/uL (1.4-6.5); PLATELET COUNT 320 K/uL (130-400); RED CELL DISTRIBUTION WIDTH CV 15.1 % (11.5-14.5); RED CELL DISTRIBUTION WIDTH SD 45.9 fL (36.4-46.3); WHITE BLOOD COUNT 9.57 K/uL (4.8-10.8)
[2017-12-16 09:08] LABS: PTT PATIENT 25.1 SECONDS (21.0-31.0)
[2017-12-16 09:11] LABS: ALBUMIN 3.9 gm/dl (3.4-5.0); ALT/SGPT 22 U/L (12-78); AST/SGOT 21 U/L (15-37); BLOOD UREA NITROGEN 9 mg/dl (7-18); CALCIUM 8.2 mg/dl (8.5-10.1); CARBON DIOXIDE 25 mmol/L (21-32); CREATININE 0.73 mg/dl (0.60-1.20); GLUCOSE 96 mg/dl (70-99); SODIUM 136 mmol/L (136-145)
[2017-12-16] MEDS ORDERED: ARIP2TAB3 PO (09:18)
[2017-12-16 09:22] LABS: ALKALINE PHOSPHATASE 76 U/L (45-117); TOTAL PROTEIN 7.6 gm/dl (6.4-8.2)
--- NOTE | 2017-12-16 09:58 | DIAGNOSTIC IMAGING REPORT ---
CHEST ONE VIEW PORTABLE CLINICAL HISTORY: 32 years-old Female presenting with chest pain/dyspnea. TECHNIQUE: Portable upright AP view of the chest was obtained. COMPARISON: 07/19/2017. FINDINGS: Cardiomediastinal silhouette normal. Lungs and pleural spaces clear. Osseous structures normal. Upper abdomen normal. IMPRESSION: 1. No acute cardiopulmonary disease. Electronically signed by: Quinn Edwards M.D. 12/16/2017 9:57 AM Dictated Date/Time: 12/16/2017 9:56 AM
[2017-12-16] MEDS ORDERED: POTASSIUM CHLORIDE 10 MEQ TABCR PO STA (10:59)
[2017-12-16] MEDS ORDERED: POTASSIUM CHLR 10 MEQ / WTR 100 ML IV STA (10:59)
[2017-12-16] MEDS ORDERED: OPTIRAY 320 IV PRN (11:15)
--- NOTE | 2017-12-16 11:34 | DIAGNOSTIC IMAGING REPORT ---
(CHEST FOR PE) ANGIO WITH CT DOSE: 366.45 mGy.cm HISTORY: Chest pain dyspnea TECHNIQUE: Multiaxial CT images of the chest were performed following the intravenous administration of contrast to evaluate the pulmonary arteries. Maximal intensity projection images were also obtained. A dose lowering technique was utilized adhering to the principles of ALARA. COMPARISON STUDY: None. FINDINGS: There is a normal caliber thoracic aorta with no evidence for dissection. There is no evidence for pulmonary embolus. No pleural effusions. No pneumothorax. The liver and spleen are unremarkable. No mediastinal or hilar lymphadenopathy. The central airways are patent. The lungs are clear. IMPRESSION: No evidence for pulmonary embolus. The lungs are clear. The above report was generated using voice recognition software. It may contain grammatical, syntax or spelling errors. Electronically signed by: Dirk Lam M.D. 12/16/2017 11:33 AM Dictated Date/Time: 12/16/2017 11:31 AM
[2017-12-16] MEDS ORDERED: ALBUTEROL HFA 8 GM INHALER INH STA (12:25)
--- NOTE | 2017-12-16 12:32 | EMERGENCY ROOM VISIT NOTE ---
History First contact with patient: 08:19 Chief Complaint: SHORTNESS OF BREATH Stated Complaint: HARD TO BREATHE, HURST CHEST, THROAT Nursing Triage Summary: shortness of breath. cough for the past week. non productive, lungs are clear throughout History of Present Illness The patient is a 32 year old female who presents to the Emergency Room via private vehicle with complaints of "hard to breathe, her chest, throat". The patient states that she began 1 week ago with a cough. It was nonproductive in nature. She states that she feels out of breath and fatigue. She has had diarrhea for the last 3 days, quantifying 4 per day. She denies with this any fever, congestion, sinus pressure, itchy/watery eyes, ear pain, blood in her stool, nausea, vomiting, constipation, recent contact with sick individuals, recent travel, flu shot. Review of Systems A complete 10-point Review of Systems was discussed with the patient, with pertinent positives and negatives listed in the History of Present Illness. All remaining Review of Systems questions can be considered negative unless otherwise specified. 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 (20) decreased movement (21) Dentalgia (22) Fall (23) Hematuria (24) HYPERTENSION NOS (25) Nausea & vomiting (26) Overdose (27) Overdose of antipsychotic (28) Pain, dental (29) Pain, dental (30) Pain, dental (31) Pelvic pain (32) CONTRACTIONS (33) Prev Delivery, Antepartum Cond Or Complic (34) Pulmonary embolism (35) Pyelonephritis (36) Pyelonephritis (37) Retrosternal chest pain (38) Spinal meningitis (39) Substernal precordial chest pain (40) Suicidal ideation (41) Suicidal ideation (42) Suicidal ideation (43) Tobacco Use Disorder (44) Tooth pain with chewing (45) Upper respiratory infection (46) Wrist sprain Surgical Problems: (1) Appendectomy (2) History of cholecystectomy (3) S/P section Social History Problems: (1) ALCOHOL ABUSE-UNSPEC Family History Cancer Diabetes mellitus FHx: heart disease Hypertension Kidney disease or stones Seizures Social History Smoking Status: Current Every Day Smoker Alcohol Use: none Drug Use: none Marital Status: other Housing Status: lives alone Occupation Status: employed Current/Historical Medications Scheduled Aripiprazole (Abilify), 1 TAB PO DAILY Benztropine Mesylate (Benztropine Mesylate), 0.5 MG PO HS Bupropion HCl (Bupropion HCl Sr), 100 MG PO DAILY Lamotrigine (Lamotrigine), 75 MG PO DAILY Physical Exam Vital Signs Date Time Temp Pulse Resp B/P (MAP) Pulse Ox O2 Delivery O2 Flow Rate FiO2 12/16/17 13:11 85 20 156/110 98 Room Air 12/16/17 12:32 81 12/16/17 12:25 86 18 147/112 99 Room Air 12/16/17 11:37 85 16 157/98 98 Room Air 12/16/17 10:35 82 18 137/91 96 Room Air 12/16/17 09:09 87 12/16/17 08:45 99 Room Air 12/16/17 08:38 97 Room Air 12/16/17 08:16 36.6 79 20 156/111 94 Room Air Physical Exam VITAL SIGNS - Vital signs and nursing notes were reviewed. Stable. Hypertensive. GENERAL -32-year-old female appearing her stated age who is in no acute distress. Communicates well with provider and answers questions appropriately. SKIN - Without rashes. HEAD - NC/AT. EYES - PERRL with EOMI bilaterally. Sclera anicteric. Palpebral conjunctiva pink and moist with no injection noted. EARS - No deformities of external structures noted on gross examination bilaterally. External auditory canals without discharge or otorrhea. Tympanic membranes pearly goncalves without retraction or bulging. No fluid or purulent material visualized behind the TM. Handle of malleus, umbo, cone of light, pars tensa/flaccid all easily visualized. NOSE - Midline and without cyanosis. No epistaxis or purulent drainage noted. Septum midline without deviation or septal hematoma noted. MOUTH/OROPHARYNX - Without perioral cyanosis. Buccal mucosa pink and moist and without leukoplakia. Tongue midline with equal elevation of palate bilaterally. No tonsillar hypertrophy, erythema, or exudates noted. Fair dentition noted. NECK - Neck with FROM. Supple to palpation. No lymphadenopathy noted. No nuchal rigidity. LUNGS - Chest wall symmetric without accessory muscle use, intercostals retractions, or central cyanosis. Normal vesicular breath sounds CTA B/L. No wheezes, rales, or rhonchi appreciated. CARDIAC - RRR with S1/S2. No murmur, rubs, or gallops appreciated. ABDOMEN - Abdominal contour normal without pulsations or visible masses. BS normoactive all four quadrants. No tenderness, palpable masses, hepatosplenomegaly, or ascites noted. EXTREMITIES - No clubbing or peripheral cyanosis. No pretibial edema present. + 5/5 strength noted in UE/LE bilaterally. NEUROLOGIC - Cranial nerves II through XII grossly intact. Sensory intact to light touch throughout. PSYCH - A&O, and cooperates fully with examiner. Pt is very pleasant and interacts well with examiner. Medical Decision & Procedures ER Provider Diagnostic Interpretation: [~ rep ct add3]] CHEST ONE VIEW PORTABLE CLINICAL HISTORY: 32 years-old Female presenting with chest pain/dyspnea. TECHNIQUE: Portable upright AP view of the chest was obtained. COMPARISON: 07/19/2017. FINDINGS: Cardiomediastinal silhouette normal. Lungs and pleural spaces clear. Osseous structures normal. Upper abdomen normal. IMPRESSION: 1. No acute cardiopulmonary disease. Electronically signed by: Quinn Edwards M.D. 12/16/2017 9:57 AM Dictated Date/Time: 12/16/2017 9:56 AM (CHEST FOR PE) ANGIO WITH CT DOSE: 366.45 mGy.cm HISTORY: Chest pain dyspnea TECHNIQUE: Multiaxial CT images of the chest were performed following the intravenous administration of contrast to evaluate the pulmonary arteries. Maximal intensity projection images were also obtained. A dose lowering technique was utilized adhering to the principles of ALARA. COMPARISON STUDY: None. FINDINGS: There is a normal caliber thoracic aorta with no evidence for dissection. There is no evidence for pulmonary embolus. No pleural effusions. No pneumothorax. The liver and spleen are unremarkable. No mediastinal or hilar lymphadenopathy. The central airways are patent. The lungs are clear. IMPRESSION: No evidence for pulmonary embolus. The lungs are clear. The above report was generated using voice recognition software. It may contain grammatical, syntax or spelling errors. Electronically signed by: Dirk Lam M.D. 12/16/2017 11:33 AM Dictated Date/Time: 12/16/2017 11:31 AM Laboratory Results 12/16/17 08:45 Red Blood Count 4.99, Mean Corpuscular Volume 82.8, Mean Corpuscular Hemoglobin 27.5, Mean Corpuscular Hemoglobin Concent 33.2, Mean Platelet Volume 8.5, Neutrophils (%) (Auto) 65.8, Lymphocytes (%) (Auto) 21.0, Monocytes (%) (Auto) 9.6, Eosinophils (%) (Auto) 2.9, Basophils (%) (Auto) 0.4, Neutrophils # (Auto) 6.29, Lymphocytes # (Auto) 2.01, Monocytes # (Auto) 0.92, Eosinophils # (Auto) 0.28, Basophils # (Auto) 0.04 12/16/17 08:45 Test 12/16/17 08:45 White Blood Count 9.57 K/uL (4.8-10.8) Red Blood Count 4.99 M/uL (4.2-5.4) Hemoglobin 13.7 g/dL (12.0-16.0) Hematocrit 41.3 % (37-47) Mean Corpuscular Volume 82.8 fL (80-100) Mean Corpuscular Hemoglobin 27.5 pg (25-34) Mean Corpuscular Hemoglobin Concent 33.2 g/dl (32-36) Platelet Count 320 K/uL (130-400) Mean Platelet Volume 8.5 fL (7.4-10.4) Neutrophils (%) (Auto) 65.8 % Lymphocytes (%) (Auto) 21.0 % Monocytes (%) (Auto) 9.6 % Eosinophils (%) (Auto) 2.9 % Basophils (%) (Auto) 0.4 % Neutrophils # (Auto) 6.29 K/uL (1.4-6.5) Lymphocytes # (Auto) 2.01 K/uL (1.2-3.4) Monocytes # (Auto) 0.92 K/uL (0.11-0.59) Eosinophils # (Auto) 0.28 K/uL (0-0.5) Basophils # (Auto) 0.04 K/uL (0-0.2) RDW Standard Deviation 45.9 fL (36.4-46.3) RDW Coefficient of Variation 15.1 % (11.5-14.5) Immature Granulocyte % (Auto) 0.3 % Immature Granulocyte # (Auto) 0.03 K/uL (0.00-0.02) Prothrombin Time 10.2 SECONDS (9.0-12.0) Prothromb Time International Ratio 1.0 (0.9-1.1) Activated Partial Thromboplast Time 25.1 SECONDS (21.0-31.0) Partial Thromboplastin Ratio 1.0 Anion Gap 6.0 mmol/L (3-11) Est Creatinine Clear Calc Drug Dose 119.5 ml/min Estimated GFR () 128.1 Estimated GFR (Non- 110.5 BUN/Creatinine Ratio 11.9 (10-20) Calcium Level 8.2 mg/dl (8.5-10.1) Magnesium Level 1.9 mg/dl (1.8-2.4) Total Bilirubin 0.9 mg/dl (0.2-1) Aspartate Amino Transf (AST/SGOT) 21 U/L (15-37) Alanine Aminotransferase (ALT/SGPT) 22 U/L (12-78) Alkaline Phosphatase 76 U/L (45-117) Troponin I < 0.015 ng/ml (0-0.045) Total Protein 7.6 gm/dl (6.4-8.2) Albumin 3.9 gm/dl (3.4-5.0) Globulin 3.7 gm/dl (2.5-4.0) Albumin/Globulin Ratio 1.1 (0.9-2) Thyroid Stimulating Hormone (TSH) 1.670 uIu/ml (0.300-4.500) Medications Administered Medications (Trade) Dose Ordered Sig/Lnyda Route Start Time Stop Time Status Last Admin Dose Admin Albuterol/ Ipratropium (Duoneb) 3 ml NOW STAT INH 12/16/17 08:37 12/16/17 08:40 DC 12/16/17 08:45 3 ML Acetaminophen (Tylenol Tab) 500 mg NOW STAT PO 12/16/17 08:52 12/16/17 08:53 DC 12/16/17 09:01 500 MG Potassium Chloride 100 ml @ 100 mls/hr NOW STAT IV 12/16/17 10:59 12/16/17 11:58 DC 12/16/17 11:34 100 MLS/HR Potassium Chloride (Klor-Con M10) 40 meq NOW STAT PO 12/16/17 10:59 12/16/17 11:02 DC 12/16/17 11:35 40 MEQ Acetaminophen (Tylenol Tab) 500 mg NOW STAT PO 12/16/17 11:18 12/16/17 11:19 DC 12/16/17 11:35 500 MG Magnesium Oxide (Mag-Ox Tab) 800 mg BID PO 12/16/17 21:00 12/16/17 21:00 DC 12/16/17 13:14 800 MG Albuterol (Ventolin Hfa Inhaler) 1 puffs NOW STAT INH 12/16/17 12:25 12/16/17 12:27 DC 12/16/17 13:15 1 PUFFS Medical Decision Patient was seen and evaluated as above in room a10. Review was performed of nursing notes and vital signs. After obtaining a thorough history and physical examination the above work up was performed. She presents to us today with shortness of breath, minimal anterior chest pain that is substernal worse with a cough. She has a history of pulmonary embolism. A bedside EKG was obtained and reveals normal sinus rhythm, incomplete right bundle branch block. This was compared with previous and QT prolongation new. CBC reveals no leukocytosis or concerning anemia. Coags normal. Metabolic panel does reveal hypokalemia at 3.0. This could explain the QT prolongation however this could be medication induced. No evidence of liver failure. Troponin is negative. Magnesium is normal. TSH is within normal limits. Because of the patient's hypokalemia, and presentation here today I did elect to replete her potassium both intravenously and orally. She will also be given a list of foods high in potassium and she is to follow with her family doctor to have these levels repeated and potential supplementation initiated. She was also given magnesium here. Chest x-ray was obtained and was negative. Unfortunately because of her nonproductive cough, substernal chest pain, and history of PE the concern was that this could be a pulmonary embolism. She also had an O2 sat of 94% upon presentation. After thoroughly discussing benefit versus risk of obtaining CT scan of the chest, it was obtained. It does reveal no pulmonary emboli. She was given a breathing treatment here. I suspect she likely is experiencing a viral process which is exacerbating reactive airways. At this time she appears stable for outpatient management with an inhaler. I do believe that outpatient management is warranted given no emergent process identified today, and her symptoms being greater than 6 hours I believe the troponin being negative is sufficient. She was educated to follow with the family doctor for QT prolongation. She was educated upon worrisome symptoms which to return. ] The patient was educated upon management, had questions answered prior to discharge , and was discharged home in good condition. Case was discussed with the attending physician. In the evaluation and treatment of this patient the following differential diagnoses were entertained: HI, pneumonia, bronchitis, influenza, PE, pericarditis, costochondritis, myocarditis, among others. Impression Primary Impression: Hypokalemia Additional Impression: Acute bronchitis Departure Information Dispostion Home / Self-Care Condition GOOD Referrals Angelic Pereira D.O. (PCP) Patient Instructions Hypokalemia [facility], [facility] Additional Instructions You were seen in the emergency department for chest pain, shortness of breath. CT scan of your chest reveals no blood clot. Your EKG does reveal QT prolongation. This could be from the low potassium or from medications. We gave you some potassium and magnesium here. I recommend referring to the attached handout for foods high in potassium and also calling the family doctor to schedule follow-up for potential repeat. Please use the inhaler, 1 puff every 6 hours to help with breathing. Please rest. Please watch your blood pressure. Please call your family doctor soon as possible to schedule follow-up. Please return with any new/concerning symptoms. Problem Qualifiers
[2017-12-16 13:11] VITALS: BP 156/110; PULSE 85; O2SAT 98
[2017-12-16] MEDS ORDERED: MAGNESIUM OXIDE 400 MG TAB PO SCH (21:00)
== END 2017-12-16 13:24 | disposition home or self-care (01) ==
LOC: C.EDB 07:59 → C.EDA 13:24
DX: J20.9 Acute bronchitis, unspecified (principal); E87.6 Hypokalemia; F41.9 Anxiety disorder, unspecified; F31.9 Bipolar disorder, unspecified; I10 Essential (primary) hypertension; Z86.711 Personal history of pulmonary embolism; Z90.49 Acquired absence of other specified parts of digestive tract; F17.210 Nicotine dependence, cigarettes, uncomplicated; Z80.9 Family history of malignant neoplasm, unspecified; Z83.3 Family history of diabetes mellitus; Z82.49 Family history of ischemic heart disease and other diseases of the circulatory system; Z84.1 Family history of disorders of kidney and ureter; Z82.0 Family history of epilepsy and other diseases of the nervous system; Z79.899 Other long term (current) drug therapy

== ENCOUNTER 2018-01-06 21:43 | Emergency (ER) | payer OTHER ==
[~2018-01-06] VITALS: Ht 165.1 cm; Wt 88.8 kg
[~2018-01-06 21:43] MED LIST changes: -ACET-1256 PO; +ARIP2TAB3 PO; -LISD30CA4 PO; -ONDA4TAB10 SL; -QUET1TAB10 PO
[2018-01-06 21:48] VITALS: Ht 165.1 cm; Wt 88.8 kg
[2018-01-06] MEDS ORDERED: KETOROLAC TROMETHAMINE 30 MG/ML VIAL IV STA (22:07)
[2018-01-06 22:18] LABS: BASO % 0.5 %; BASO ABS # 0.05 K/uL (0-0.2); EOS % 4.5 %; EOS ABS # 0.43 K/uL (0-0.5); HEMATOCRIT 43.5 % (37-47); HEMOGLOBIN 14.4 g/dL (12.0-16.0); IG# 0.02 K/uL (0.00-0.02); LYMPH % 35.9 %; LYMPH ABS # 3.45 K/uL (1.2-3.4); MEAN CELL VOLUME 84.1 fL (80-100); MEAN CORPUSCULAR HEMOGLOBIN 27.9 pg (25-34); MEAN CORPUSCULAR HGB CONC 33.1 g/dl (32-36); MEAN PLATELET VOLUME 9.2 fL (7.4-10.4); MONO % 8.8 %; MONO ABS # 0.84 K/uL (0.11-0.59); NEUT % 50.1 %; NEUT ABS # 4.81 K/uL (1.4-6.5); PLATELET COUNT 333 K/uL (130-400); RED CELL DISTRIBUTION WIDTH CV 15.4 % (11.5-14.5); RED CELL DISTRIBUTION WIDTH SD 47.4 fL (36.4-46.3)
[2018-01-06] MEDS ORDERED: LISD30CA4 PO (22:24)
--- NOTE | 2018-01-06 22:34 | DIAGNOSTIC IMAGING REPORT ---
SINGLE VIEW CHEST CLINICAL HISTORY: Atypical chest pain. FINDINGS: An AP, portable, upright chest radiograph is compared to chest x-ray and chest CT dated 12/16/2017. The cardiomediastinal silhouette is unremarkable. The lungs and pleural spaces are clear. No pneumothorax is seen. The bony thorax is grossly intact. IMPRESSION: No active disease in the chest and no significant change from chest x-ray and chest CT. Electronically signed by: Rakesh Sarabia M.D. 01/06/2018 10:33 PM Dictated Date/Time: 01/06/2018 10:32 PM
[2018-01-06 22:42] LABS: ALBUMIN 4.1 gm/dl (3.4-5.0); ALKALINE PHOSPHATASE 59 U/L (45-117); ALT/SGPT 15 U/L (12-78); AST/SGOT 9 U/L (15-37); BLOOD UREA NITROGEN 15 mg/dl (7-18); CALCIUM 8.9 mg/dl (8.5-10.1); CARBON DIOXIDE 27 mmol/L (21-32); CREATININE 0.78 mg/dl (0.60-1.20); GLUCOSE 80 mg/dl (70-99); POTASSIUM 3.4 mmol/L (3.5-5.1); SODIUM 138 mmol/L (136-145); TOTAL PROTEIN 8.1 gm/dl (6.4-8.2)
[2018-01-06] MEDS ORDERED: POTASSIUM CHLORIDE 20 MEQ TABCR PO STA (23:13)
[2018-01-06] MEDS ORDERED: POTASSIUM CHLORIDE 10 MEQ TABCR ONE (23:20)
--- NOTE | 2018-01-06 23:25 | EMERGENCY ROOM VISIT NOTE ---
History First contact with patient: 21:56 Chief Complaint: CARDIAC ASSESSMENT Stated Complaint: CHEST PAIN, DIZZY, NAUSEAS Nursing Triage Summary: Pt c/o right sided chest pain/pressure that started 2hrs [employer]. C/o associated dizziness. History of Present Illness The patient is a 32 year old female who presents to the Emergency Room with complaints of right-sided chest pain, dizziness and nausea. The patient states that for the past 2 hours, she has been having pain in the right side of her chest. She states it has been constant. She has felt dizzy but describes this as more of a lightheaded feeling. She has been nauseous but has not vomited. She took Zofran and Tylenol without relief. She describes the pain in the chest as a pressure. She rates her overall discomfort a 5/10. Her symptoms are somewhat worse with breathing. She has had some similar episodes in the past. She does not have any shortness of breath. She is a smoker. She takes no control pills. She denies recent travel. She did have a pulmonary embolism in the past, but states this was after a surgery. She denies recent illness, cough, fever/chills. She denies injury or any recent heavy lifting. She does note increased stress recently. Review of Systems A complete 10 point review of systems was reviewed with the patient with pertinent positives and negatives as per history of present illness. All else were negative. 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 (20) decreased movement (21) Dentalgia (22) Fall (23) Hematuria (24) HYPERTENSION NOS (25) Nausea & vomiting (26) Overdose (27) Overdose of antipsychotic (28) Pain, dental (29) Pain, dental (30) Pain, dental (31) Pelvic pain (32) CONTRACTIONS (33) Prev Delivery, Antepartum Cond Or Complic (34) Pulmonary embolism (35) Pyelonephritis (36) Pyelonephritis (37) Retrosternal chest pain (38) Spinal meningitis (39) Substernal precordial chest pain (40) Suicidal ideation (41) Suicidal ideation (42) Suicidal ideation (43) Tobacco Use Disorder (44) Tooth pain with chewing (45) Upper respiratory infection (46) Wrist sprain Surgical Problems: (1) Appendectomy (2) History of cholecystectomy (3) S/P section Social History Problems: (1) ALCOHOL ABUSE-UNSPEC Family History Cancer Diabetes mellitus FHx: heart disease Hypertension Kidney disease or stones Seizures Social History Smoking Status: Current Every Day Smoker Alcohol Use: none Drug Use: none Marital Status: other Housing Status: lives alone Occupation Status: employed Current/Historical Medications Scheduled Aripiprazole (Abilify), 1 TAB PO HS Benztropine Mesylate (Benztropine Mesylate), 0.5 MG PO HS Bupropion HCl (Bupropion HCl Sr), 100 MG PO QAM Lamotrigine (Lamotrigine), 75 MG PO QAM Lisdexamfetamine Dimesylate (Vyvanse), 30 MG PO QAM Physical Exam Vital Signs Date Time Temp Pulse Resp B/P (MAP) Pulse Ox O2 Delivery O2 Flow Rate FiO2 01/06/18 23:35 36.6 89 16 167/104 99 01/06/18 22:09 91 01/06/18 21:48 36.6 88 16 160/115 100 Room Air Physical Exam VITALS: Vitals are noted on the nurse's note and reviewed by myself. Vital signs stable. GENERAL: This is a 32-year-old female, in no acute distress, nondiaphoretic, well-developed well-nourished. SKIN: The skin was without rashes, erythema, edema, or bruising. EARS: External auditory canals clear, tympanic membranes pearly goncalves without erythema or effusion bilaterally. EYES: Pupils equal round and reactive to light and accommodation. MOUTH: Mucous membranes moist. Tonsils are not enlarged. Pharynx without erythema or exudate. NECK: Supple without nuchal rigidity. No lymphadenopathy. HEART: Regular rate and rhythm without murmurs gallops or rubs. LUNGS: Clear to auscultation bilaterally without wheezes, rales or rhonchi. MUSCULOSKELETAL: Reproducible mild tenderness to palpation to the right anterior chest wall. NEURO: Patient was alert and oriented to person place and time. Medical Decision & Procedures Laboratory Results 01/06/18 21:55 Red Blood Count 5.17, Mean Corpuscular Volume 84.1, Mean Corpuscular Hemoglobin 27.9, Mean Corpuscular Hemoglobin Concent 33.1, Mean Platelet Volume 9.2, Neutrophils (%) (Auto) 50.1, Lymphocytes (%) (Auto) 35.9, Monocytes (%) (Auto) 8.8, Eosinophils (%) (Auto) 4.5, Basophils (%) (Auto) 0.5, Neutrophils # (Auto) 4.81, Lymphocytes # (Auto) 3.45, Monocytes # (Auto) 0.84, Eosinophils # (Auto) 0.43, Basophils # (Auto) 0.05 01/06/18 21:55 Test 01/06/18 21:55 White Blood Count 9.60 K/uL (4.8-10.8) Red Blood Count 5.17 M/uL (4.2-5.4) Hemoglobin 14.4 g/dL (12.0-16.0) Hematocrit 43.5 % (37-47) Mean Corpuscular Volume 84.1 fL (80-100) Mean Corpuscular Hemoglobin 27.9 pg (25-34) Mean Corpuscular Hemoglobin Concent 33.1 g/dl (32-36) Platelet Count 333 K/uL (130-400) Mean Platelet Volume 9.2 fL (7.4-10.4) Neutrophils (%) (Auto) 50.1 % Lymphocytes (%) (Auto) 35.9 % Monocytes (%) (Auto) 8.8 % Eosinophils (%) (Auto) 4.5 % Basophils (%) (Auto) 0.5 % Neutrophils # (Auto) 4.81 K/uL (1.4-6.5) Lymphocytes # (Auto) 3.45 K/uL (1.2-3.4) Monocytes # (Auto) 0.84 K/uL (0.11-0.59) Eosinophils # (Auto) 0.43 K/uL (0-0.5) Basophils # (Auto) 0.05 K/uL (0-0.2) RDW Standard Deviation 47.4 fL (36.4-46.3) RDW Coefficient of Variation 15.4 % (11.5-14.5) Immature Granulocyte % (Auto) 0.2 % Immature Granulocyte # (Auto) 0.02 K/uL (0.00-0.02) Anion Gap 5.0 mmol/L (3-11) Est Creatinine Clear Calc Drug Dose 116.1 ml/min Estimated GFR () 118.2 Estimated GFR (Non- 102.0 BUN/Creatinine Ratio 19.7 (10-20) Calcium Level 8.9 mg/dl (8.5-10.1) Total Bilirubin 0.4 mg/dl (0.2-1) Aspartate Amino Transf (AST/SGOT) 9 U/L (15-37) Alanine Aminotransferase (ALT/SGPT) 15 U/L (12-78) Alkaline Phosphatase 59 U/L (45-117) Troponin I < 0.015 ng/ml (0-0.045) Total Protein 8.1 gm/dl (6.4-8.2) Albumin 4.1 gm/dl (3.4-5.0) Globulin 4.0 gm/dl (2.5-4.0) Albumin/Globulin Ratio 1.0 (0.9-2) Medications Administered Medications (Trade) Dose Ordered Sig/Lynda Route Start Time Stop Time Status Last Admin Dose Admin Ketorolac Tromethamine (Toradol Inj) 30 mg NOW STAT IV 01/06/18 22:07 01/06/18 22:09 DC 01/06/18 22:13 30 MG Potassium Chloride (Klor-Con M10) 20 meq STK-MED ONCE .ROUTE 01/06/18 23:20 01/06/18 23:21 DC 01/06/18 23:22 20 MEQ ECG Per My Interpretation Indication: chest pain Rate (beats per minute): 73 Rhythm: normal sinus Findings: no acute ischemic change, no ectopy, other (incomplete RBBB) Change: no significant change Medical Decision Differential diagnosis includes acute coronary syndrome, pulmonary embolism, pneumothorax, pericarditis, myocarditis, endocarditis, anxiety, musculoskeletal pain, GERD, costochondritis, pneumonia, among others. The patient is a 32-year-old female who presents today complaining of right- sided chest pain. Labs revealed no leukocytosis, anemia or concerning electrolyte abnormalities. Troponin was not elevated. History is not suggestive of PE and patient had a negative CTA of the chest earlier this month. She has been seen here multiple times for similar symptoms. Pain is reproducible to palpation of the chest wall and may be musculoskeletal in nature. She was advised to follow-up closely with her primary care provider this week for recheck in the office. The patient's case was reviewed with Dr. Sierra , ED attending physician, who agreed with my assessment and treatment plan. Based on the patient's presentation and work up, I feel the patient is stable for outpatient treatment. The patient was educated to return to the emergency department for any worsening of their current condition or new/concerning symptoms. She will follow up with her PCP. Medication Reconcilliation Current Medication List: was personally reviewed by me Blood Pressure Screening Patient's blood pressure: Elevated blood pressure Blood pressure disposition: Referred to PCP Impression Primary Impression: Right-sided chest pain Departure Information Dispostion Home / Self-Care Condition GOOD Referrals Angelic Pereira D.O. (PCP) Patient Instructions My [facility] Additional Instructions You have been treated in the Emergency Department for your Chest Pain. Laboratory results and Imaging Studies have ruled out any acute cardiac or pulmonary cause of your chest pain. For pain control, you can use the following [id number] medicines (if >12 yo): - Regular strength (325mg/tab) Tylenol (acetaminophen) 2 tabs every 4-6 hours as needed. Do not exceed 12 tablets in a 24 hour period. Avoid taking more than 4 grams (4000 mg) of Tylenol per day. This includes any other sources of acetaminophen you may take on a regular basis. - Regular strength (200 mg/tab) Advil (ibuprofen) 1-2 tabs every 4-6 hours as needed. Do not exceed a dose of 3200 mg per day. You should schedule a follow-up appointment with your Primary Care Provider in 2 -3 days for further evaluation from today's Emergency Department visit. Your blood pressure has been high on her last several visits here. Follow-up with your primary care provider regarding this as well. You may need adjustment of your medications. Return to the Emergency Department if your current symptoms worsen despite treatment course outlined above, or if you develop any of the following symptoms : worsening chest pain, associated jaw/arm pain, nausea, dizziness, shortness of breath, bloody cough, or fainting.
[2018-01-06 23:35] VITALS: BP 167/104; PULSE 89; TEMP 36.6; O2SAT 99
== END 2018-01-06 23:36 | disposition home or self-care (01) ==
LOC: C.EDB 21:44
DX: R07.9 Chest pain, unspecified (principal); F17.200 Nicotine dependence, unspecified, uncomplicated; F31.9 Bipolar disorder, unspecified; I10 Essential (primary) hypertension; Z79.899 Other long term (current) drug therapy

== ENCOUNTER 2018-03-18 20:33 | Emergency (ER) | payer OTHER ==
[~2018-03-18] VITALS: Ht 165.1 cm; Wt 90.0 kg
[~2018-03-18 20:33] MED LIST changes: -BENZ0.5T28 PO; +LISD30CA4 PO; -LMC25 PO; -WLLSR100 PO
[2018-03-18 20:44] VITALS: TEMP 36.9; Ht 165.1 cm; Wt 90.0 kg
--- NOTE | 2018-03-18 21:33 | EMERGENCY ROOM VISIT NOTE ---
History Report prepared by Bette: Rosalina Cyr Under the Supervision of: Dr. Fuad Katz M.D. First contact with patient: 21:21 Chief Complaint: CHEST PAIN Stated Complaint: CHEST PAIN,PALPITATIONS,CAREWORKS SENT OVER Nursing Triage Summary: Intermittent chest pain x several days, seen at [facility] and sent here for further evaluation. History of Present Illness The patient is a 32 year old female who presents to the Emergency Room with complaints of sudden pounding chest pain that started a few days ago. The patient reports that her heart suddenly started pounding very hard and that she has experienced 2 episodes of heart pounding since her symptoms' onset. She currently rates her pain a 6/10. The patient states she has previously experienced similar symptoms when her potassium was low. The patient denies any any shortness of breath, pain when breathing, and swelling in her legs. The also denies any chance of being . She reports that she has a history of hypertension and reports that she takes Propranolol. She also notes that she has not missed any of her medications. The patient notes she has a family history of cancer. Source of History: patient Onset: a few days ago Position: chest Symptom Intensity: 6/10 Quality: other (pounding pain) Timing: other (2 episodes) Associated Symptoms: No SOB Note: denies: pain when breathing, leg swelling Review of Systems See HPI for pertinent positives & negatives. A total of 10 systems reviewed and were otherwise negative. 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 (20) decreased movement (21) Dentalgia (22) Fall (23) Hematuria (24) HYPERTENSION NOS (25) Nausea & vomiting (26) Overdose (27) Overdose of antipsychotic (28) Pain, dental (29) Pain, dental (30) Pain, dental (31) Pelvic pain (32) CONTRACTIONS (33) Prev Delivery, Antepartum Cond Or Complic (34) Pulmonary embolism (35) Pyelonephritis (36) Pyelonephritis (37) Retrosternal chest pain (38) Spinal meningitis (39) Substernal precordial chest pain (40) Suicidal ideation (41) Suicidal ideation (42) Suicidal ideation (43) Tobacco Use Disorder (44) Tooth pain with chewing (45) Upper respiratory infection (46) Wrist sprain Surgical Problems: (1) Appendectomy (2) History of cholecystectomy (3) S/P section Social History Problems: (1) ALCOHOL ABUSE-UNSPEC Old medical records were reviewed. Nurse's notes were reviewed and I agree with. Family History Cancer Diabetes mellitus FHx: heart disease Hypertension Kidney disease or stones Seizures Social History Smoking Status: Current Every Day Smoker Alcohol Use: none Drug Use: none Marital Status: Housing Status: lives alone Occupation Status: employed Current/Historical Medications Scheduled Aripiprazole (Aripiprazole), 10 MG PO QPM Benztropine Mesylate (Benztropine Mesylate), 0.5 MG PO HS Bupropion HCl (Bupropion HCl Sr), 100 MG PO QAM Epinephrine (Epipen), 0.3 MG IM UD Lamotrigine (Lamotrigine), 75 MG PO QAM Propranolol (Inderal), 10 MG PO BID Scheduled PRN Ondansetron (Ondansetron HCl), 4 MG PO Q8 PRN for Nausea or Vomiting Allergies Coded Allergies: NUTS (Verified Allergy, Severe, ., 01/06/18) Nut Tree (Verified Allergy, Severe, ., 01/06/18) Penicillins (Verified Allergy, Severe, CAN'T BREATH, 01/06/18) Morphine (Verified Allergy, Intermediate, hives, 01/06/18) patient received toradol with the morphine. Questionable if allergic to toradol. Mushroom (Verified Allergy, Unknown, HIVES, 01/06/18) Patient states causes itching and hives AND THROAT CLOSES Physical Exam Vital Signs Date Time Temp Pulse Resp B/P (MAP) Pulse Ox O2 Delivery O2 Flow Rate FiO2 03/19/18 00:49 85 18 157/106 99 03/18/18 22:41 99 24 174/103 99 Room Air 03/18/18 21:39 90 03/18/18 20:44 36.9 92 16 163/118 100 Room Air Physical Exam General: Well developed well nourished non ill-appearing middle aged female in no acute distress, breathing comfortably on room air. Normal speech HEENT: Normal cephalic atraumatic. Pupils are equal round and reactive to light. Extraocular movements are intact. Oropharynx is pink with moist mucous membranes. No swelling of the mouth lips or tongue. Neck: Supple with a midline trachea. No meningeal signs or stiffness, no JVD or bruits. No Stridor. Chest: Clear to auscultation bilaterally. No wheezes or rhonchi. No increased work of breathing. Heart: regular rate and rhythm. Abdomen: Soft nontender, nondistended without rebound guarding or rigidity. Extremities: No cyanosis clubbing or edema. No calf tenderness or assymetry Spine/Back. Non tender to palpation. No CVA tenderness Skin: Good turgor without rashes. Neurologic exam: Cranial nerves two through 12 are intact. Motor and sensation are intact and symmetrical throughout. Medical Decision & Procedures ER Provider Diagnostic Interpretation: Radiology results as stated below per my review and radiologist interpretation: SINGLE VIEW CHEST CLINICAL HISTORY: Atypical chest pain. FINDINGS: An AP, portable, upright chest radiograph is compared to study dated 01/06/2018 and correlated with chest CT dated 12/16/2017. The examination is degraded by portable technique and patient rotation. The cardiomediastinal silhouette is unremarkable. The lungs and pleural spaces are clear. No pneumothorax is seen. The bony thorax is grossly intact. IMPRESSION: No active disease in the chest. Electronically signed by: Rakesh Sarabia M.D. 03/18/2018 9:55 PM Dictated Date/Time: 03/18/2018 9:54 PM Laboratory Results 03/18/18 21:30 Red Blood Count 4.68, Mean Corpuscular Volume 85.3, Mean Corpuscular Hemoglobin 30.1, Mean Corpuscular Hemoglobin Concent 35.3, Mean Platelet Volume 9.1, Neutrophils (%) (Auto) 56.8, Lymphocytes (%) (Auto) 32.2, Monocytes (%) (Auto) 7.6, Eosinophils (%) (Auto) 2.8, Basophils (%) (Auto) 0.4, Neutrophils # (Auto) 6.62, Lymphocytes # (Auto) 3.76, Monocytes # (Auto) 0.89, Eosinophils # (Auto) 0.33, Basophils # (Auto) 0.05 03/18/18 21:30 Test 03/18/18 21:30 White Blood Count 11.67 K/uL (4.8-10.8) Red Blood Count 4.68 M/uL (4.2-5.4) Hemoglobin 14.1 g/dL (12.0-16.0) Hematocrit 39.9 % (37-47) Mean Corpuscular Volume 85.3 fL (80-100) Mean Corpuscular Hemoglobin 30.1 pg (25-34) Mean Corpuscular Hemoglobin Concent 35.3 g/dl (32-36) Platelet Count 315 K/uL (130-400) Mean Platelet Volume 9.1 fL (7.4-10.4) Neutrophils (%) (Auto) 56.8 % Lymphocytes (%) (Auto) 32.2 % Monocytes (%) (Auto) 7.6 % Eosinophils (%) (Auto) 2.8 % Basophils (%) (Auto) 0.4 % Neutrophils # (Auto) 6.62 K/uL (1.4-6.5) Lymphocytes # (Auto) 3.76 K/uL (1.2-3.4) Monocytes # (Auto) 0.89 K/uL (0.11-0.59) Eosinophils # (Auto) 0.33 K/uL (0-0.5) Basophils # (Auto) 0.05 K/uL (0-0.2) RDW Standard Deviation 45.5 fL (36.4-46.3) RDW Coefficient of Variation 14.6 % (11.5-14.5) Immature Granulocyte % (Auto) 0.2 % Immature Granulocyte # (Auto) 0.02 K/uL (0.00-0.02) D-Dimer 190 ug/L FEU (0-500) Anion Gap 6.0 mmol/L (3-11) Est Creatinine Clear Calc Drug Dose 115.4 ml/min Estimated GFR () 116.4 Estimated GFR (Non- 100.5 BUN/Creatinine Ratio 12.1 (10-20) Calcium Level 8.6 mg/dl (8.5-10.1) Total Bilirubin 0.4 mg/dl (0.2-1) Direct Bilirubin 0.1 mg/dl (0-0.2) Aspartate Amino Transf (AST/SGOT) 11 U/L (15-37) Alanine Aminotransferase (ALT/SGPT) 16 U/L (12-78) Alkaline Phosphatase 56 U/L (45-117) Troponin I < 0.015 ng/ml (0-0.045) Total Protein 8.0 gm/dl (6.4-8.2) Albumin 4.2 gm/dl (3.4-5.0) Lipase 113 U/L (73-393) Thyroid Stimulating Hormone (TSH) 2.000 uIu/ml (0.300-4.500) Human Chorionic Gonadotropin, Qual NEG (NEG) Laboratory studies as stated above per my review. Medications Administered Medications (Trade) Dose Ordered Sig/Lynda Route Start Time Stop Time Status Last Admin Dose Admin Potassium Chloride (Klor-Con M10) 40 meq NOW STAT PO 03/18/18 23:35 03/18/18 23:37 DC 03/19/18 00:14 40 MEQ Potassium Chloride (Klor-Con M10) 40 meq NOW STAT PO 03/18/18 23:35 03/18/18 23:37 DC 03/19/18 00:45 40 MEQ ECG Per My Interpretation Indication: chest pain Rate (beats per minute): 83 Rhythm: normal sinus Findings: no acute ischemic change, other (incomplete bundle branch block) Comparison ECG Date: 01/06/18 Change: Compared to old EKG, the new EKG shows balderas increased QT interval. ED Course 2120: Past medical records reviewed. The patient was evaluated in room A4B, and a complete history and physical examination were performed. 2339: Upon reevaluation, the patient is stable. I discussed the results and treatment plan with her. She verbalized agreement of the treatment plan. The patient was discharged home. Medical Decision Differentials include, but are not limited to; acute coronary syndrome, arrhythmia, pulmonary embolism, pneumothorax, electrolyte or metabolic abnormality. This patient comes in as described above. She was placed in room A4. She has been having episodes of chest pain/palpitations last about a minute. She looks well on exam. She does have hypertension and I talked to her at length about this. She does chronically run very high. She is to follow-up with her regular doctor for this. She has no back pain or anything to suggest aortic dissection. She has no respiratory symptoms. IV access established EKG chest x -ray multiple blood testing was obtained. her EKG does not suggest significant arrhythmia or cardiac ischemia. She has no significant electrolyte or metabolic abnormalities with exception potassium be mildly low at 3.1. She was repleted with 40 mEq KCl once p.o. here and given 40 mEq once to take tomorrow. I recommend she follow with her regular doctor and get this rechecked. Her troponin is within normal limits and her symptoms are atypical for acute coronary syndrome. Her d-dimer is within normal limits and in the low pretest probability setting makes PE highly unlikely. She has nothing she has acute thyroid abnormality. She feels good would like to go home I think it is reasonable to let her go home. She should return if: increasing pain or problems, worsening of symptoms, fever or chills, any new problems or concerns. She is happy the plan and discharged to home. Medication Reconcilliation Current Medication List: was personally reviewed by me Blood Pressure Screening Patient's blood pressure: Elevated blood pressure Blood pressure disposition: Referred to PCP Impression Primary Impression: Chest pain Additional Impression: Hypokalemia Scribe Attestation The scribe's documentation has been prepared under my direction and personally reviewed by me in its entirety. I confirm that the note above accurately reflects all work, treatment, procedures, and medical decision making performed by me. Departure Information Dispostion Home / Self-Care Referrals No Doctor, Assigned (PCP) Forms HOME CARE DOCUMENTATION FORM, IMPORTANT VISIT INFORMATION Patient Instructions My [facility] Additional Instructions Rest Drink plenty of fluids Return if: worsening of symptoms, increasing pain, any new problems or concerns Follow-up with your doctor in 1-3 days for recheck Problem Qualifiers
[2018-03-18 21:48] LABS: BASO % 0.4 %; BASO ABS # 0.05 K/uL (0-0.2); EOS % 2.8 %; EOS ABS # 0.33 K/uL (0-0.5); HEMATOCRIT 39.9 % (37-47); HEMOGLOBIN 14.1 g/dL (12.0-16.0); IG# 0.02 K/uL (0.00-0.02); LYMPH % 32.2 %; LYMPH ABS # 3.76 K/uL (1.2-3.4); MEAN CELL VOLUME 85.3 fL (80-100); MEAN CORPUSCULAR HEMOGLOBIN 30.1 pg (25-34); MEAN CORPUSCULAR HGB CONC 35.3 g/dl (32-36); MEAN PLATELET VOLUME 9.1 fL (7.4-10.4); MONO % 7.6 %; MONO ABS # 0.89 K/uL (0.11-0.59); NEUT % 56.8 %; NEUT ABS # 6.62 K/uL (1.4-6.5); PLATELET COUNT 315 K/uL (130-400); RED CELL DISTRIBUTION WIDTH CV 14.6 % (11.5-14.5); RED CELL DISTRIBUTION WIDTH SD 45.5 fL (36.4-46.3); WHITE BLOOD COUNT 11.67 K/uL (4.8-10.8)
--- NOTE | 2018-03-18 21:56 | DIAGNOSTIC IMAGING REPORT ---
SINGLE VIEW CHEST CLINICAL HISTORY: Atypical chest pain. FINDINGS: An AP, portable, upright chest radiograph is compared to study dated 01/06/2018 and correlated with chest CT dated 12/16/2017. The examination is degraded by portable technique and patient rotation. The cardiomediastinal silhouette is unremarkable. The lungs and pleural spaces are clear. No pneumothorax is seen. The bony thorax is grossly intact. IMPRESSION: No active disease in the chest. Electronically signed by: Rakesh Sarabia M.D. 03/18/2018 9:55 PM Dictated Date/Time: 03/18/2018 9:54 PM
[2018-03-18] MEDS ORDERED: EPP3/2 IM (22:10)
[2018-03-18] MEDS ORDERED: ARIP1TAB15 PO (22:10)
[2018-03-18] MEDS ORDERED: PROP10TA7 PO (22:10)
[2018-03-18] MEDS ORDERED: ONDA4TAB9 PO (22:10)
[2018-03-18 22:16] LABS: ALBUMIN 4.2 gm/dl (3.4-5.0); ALKALINE PHOSPHATASE 56 U/L (45-117); ALT/SGPT 16 U/L (12-78); AST/SGOT 11 U/L (15-37); BLOOD UREA NITROGEN 10 mg/dl (7-18); CALCIUM 8.6 mg/dl (8.5-10.1); CARBON DIOXIDE 26 mmol/L (21-32); CREATININE 0.79 mg/dl (0.60-1.20); GLUCOSE 84 mg/dl (70-99); LIPASE 113 U/L (73-393); POTASSIUM 3.1 mmol/L (3.5-5.1); SODIUM 137 mmol/L (136-145)
[2018-03-18] MEDS ORDERED: WLLSR100 PO (22:21)
[2018-03-18] MEDS ORDERED: BENZ0.5T28 PO (22:21)
[2018-03-18] MEDS ORDERED: LMC25 PO (22:21)
[2018-03-18] MEDS ORDERED: POTASSIUM CHLORIDE 10 MEQ TABCR PO STA ×2 (23:35)
[2018-03-19] MEDS ORDERED: EMPTY 8 DRAM VIAL ONE (00:13)
[2018-03-19 00:49] VITALS: BP 157/106; PULSE 85; O2SAT 99
== END 2018-03-19 00:50 | disposition home or self-care (01) ==
LOC: C.EDB 20:34 → C.EDA 03-19 00:50
DX: R07.9 Chest pain, unspecified (principal); E87.6 Hypokalemia; I10 Essential (primary) hypertension; F31.9 Bipolar disorder, unspecified; Z79.899 Other long term (current) drug therapy; Z88.0 Allergy status to penicillin; Z88.5 Allergy status to narcotic agent; Z91.018 Allergy to other foods; F17.200 Nicotine dependence, unspecified, uncomplicated

== ENCOUNTER 2018-12-01 02:25 | Observation (INO) ==
[2018-12-01] MEDS ORDERED: LORazepam 1 MG/2 ML VIAL IV STA (02:52)
[2018-12-01] MEDS ORDERED: cloNIDine HCl 0.1 MG TAB PO ONE ×3 (02:54→15:00)
[2018-12-01 03:04] LABS: Basophils # (auto) 0.05 K/uL (0-0.2); Basophils % (auto) 0.6 %; Eosinophils # (auto) 0.42 K/uL (0-0.5); Eosinophils % (auto) 4.7 %; Hematocrit (blood only) 42.1 % (37-47); Hemoglobin 14.7 g/dL (12.0-16.0); Immature Granulocytes # (auto) 0.02 K/uL (0.00-0.02); Immature Granulocytes % (auto) 0.2 %; Lymphocytes # (auto) 3.29 K/uL (1.2-3.4); Lymphocytes % (auto) 36.7 %; Mean Corpuscular Hgb Conc 34.9 g/dL (32-36); Mean Corpuscular Volume 84.4 fL (80-100); Mean Platelet Volume 9.2 fL (7.4-10.4); Monocytes # (auto) 0.75 K/uL (0.11-0.59); Monocytes % (auto) 8.4 %; Neutrophils # (auto) 4.43 K/uL (1.4-6.5); Neutrophils % (auto) 49.4 %; Platelet Count 308 K/uL (130-400); RDW Coefficient of Variation 14.8 % (11.5-14.5); RDW Standard Deviation 45.6 fL (36.4-46.3); Red Blood Count 4.99 M/uL (4.2-5.4); White Blood Count 8.96 K/uL (4.8-10.8)
[2018-12-01 03:23] LABS: Albumin Level 3.9 gm/dl (3.4-5.0); BUN Creatinine Ratio 9.7 (10-20); Calcium 8.4 mg/dl (8.5-10.1); Creatinine Clr Calc Pharmacy 144.3 ml/min; Est GFR (African American) 137.1; Est GFR (Non-African American) 118.3; Magnesium 2.1 mg/dl (1.8-2.4); Potassium 3.1 mmol/L (3.5-5.1)
[2018-12-01 03:26] LABS: Albumin Globulin Ratio 0.9 (0.9-2); Bilirubin,Total 0.3 mg/dl (0.2-1); Globulin 4.2 gm/dl (2.5-4.0); Total Protein 8.1 gm/dl (6.4-8.2)
[2018-12-01] MEDS ORDERED: LABETALOL HCL IV 5 MG/ML 20ML IV STA ×2 (03:41→06:04)
[2018-12-01] MEDS ORDERED: POTASSIUM CHLORIDE 10 MEQ TABCR PO STA (03:50)
[2018-12-01] MEDS ORDERED: IRBESARTAN 150 MG TAB PO STA (05:25)
[2018-12-01] MEDS ORDERED: SPIRONOLACTONE 25 MG TAB PO ONE (05:25)
[2018-12-01] MEDS ORDERED: ACETAMINOPHEN 500 MG TAB PO STA (05:26)
[2018-12-01] MEDS ORDERED: LORazepam 2 MG/4 ML VIAL IV STA (05:48)
[2018-12-01] MEDS ORDERED: ONDANSETRON INJ 2 MG/ML 2 ML VIAL IV STA (05:57)
[2018-12-01] MEDS ORDERED: OXYCODONE HCL IR 5 MG TAB (IMMEDIATE RELEASE) PO STA (07:09)
--- NOTE | 2018-12-01 07:19 | CT Scan Report ---
CT head/brain wo con CLINICAL HISTORY: Severe headache COMPARISON STUDY: 07/19/2017 TECHNIQUE: Axial CT of the brain is performed from the vertex to the skull base. IV contrast was not administered for this examination. A dose lowering technique was utilized adhering to the principles of ALARA. CT DOSE: 537.48 mGy.cm FINDINGS: No intra or extra-axial mass lesions are visualized. There is no CT evidence of acute cortical infarc tion. There is no evidence of midline shift. There is no acute hemorrhage. No calvarial fractures ar e visualized. There is no evidence of pathologic ventricular dilatation. There is no evidence of acute sinusitis IMPRESSION: No acute intracranial findings Electronically signed by: Emmanuel Meyer M.D. 12/01/2018 7:17 AM
--- NOTE | 2018-12-01 07:25 | Emergency Department Note ---
Entered by Avery Magana acting as a scribe for History of Present Illness General Chief complaint: Hypertension Stated complaint: HIGH BLOOD PRESSURE Time Seen by Provider: 12/01/18 02:38 Source: patient and other (boyfriend) History of Present Illness Provider complaint: Hypertension Onset (ago): day(s) (last night) Location: head Pain Consistency: + other (episode) Maximum Pain Intensity: 8 Quality: + other (hypertension) Associated symptoms: + denies other symptoms (any recent drug use), + headaches and + other (alcohol consumption) Treatments prior to arrival: other (Norvasc) The patient is a 33 year old female who presents to the Emergency Room with complaints of hypertension that started last night. The patient's boyfriend notes that the patient's last two blood pressures were 196/150 and 198/141. The patient admits to having a throbbing headache and describes it as "I feel like a nail is going through my head." The patient also admits to having two seizures. Her boyfriend states when the patient experiences a seizure, she curls up into position, shakes, and becomes stiff. The patient states that she was discharged from the hospital last week for the same thing and reports that she was diagnosed with malignant hypertension. She also states that she is currently prescribed Clonidine and notes that she has been taking it regularly. She notes that since being discharged last week, she has taken 4 Norvasc tablets which did not bring down her blood pressure. The patient admits to formerly using alcohol heavily, but notes that she now only drinks about 3 times a week. She admits to drinking a large Four [place] last night. When offered an Ativan, the patient states that she would not like to take it due to being an addict. [place], she states she has been clean for about 5 years. Home Medications Home Medications Medication Instructions Recorded Confirmed Type aripiprazole 10 mg PO QPM 05/13/18 12/01/18 History benztropine 0.5 mg PO HS 05/13/18 12/01/18 History epinephrine [EpiPen] 0.3 mg IM Q3H PRN 05/13/18 12/01/18 History lamotrigine 75 mg PO QAM 05/13/18 12/01/18 History ondansetron HCl [Zofran] 4 mg PO TID PRN 05/13/18 12/01/18 History irbesartan 150 mg PO DAILY 11/07/18 12/01/18 History Vyvanse 30 mg PO DAILY PRN 12/01/18 12/01/18 History bupropion HCl 100 mg PO DAILY 12/01/18 12/01/18 History clonidine HCl 0.1 mg PO TID 12/01/18 12/01/18 History cyclobenzaprine 10 mg PO TID PRN 12/01/18 12/01/18 History naproxen 500 mg PO BID PRN 12/01/18 12/01/18 History spironolactone 50 mg PO DAILY 12/01/18 12/01/18 History nicotine [Nicoderm CQ] 14 mg TRANSDERMAL QAM 30 Days #30 12/02/18 Rx ea Allergies Allergy/AdvReac Type Severity Reaction Status Date / Time nut - unspecified Allergy Severe Anaphylaxis Verified 12/01/18 04:42 Penicillins Allergy Severe CAN'T Verified 12/01/18 04:42 BREATH tree nut Allergy Severe Anaphylaxis Verified 12/01/18 04:42 morphine Allergy Intermediate hives Verified 12/01/18 04:42 mushroom Allergy Intermediate HIVES Verified 12/01/18 04:42 Past Med/Surg History Medical History Hypertension (Chronic 07/15/12) Anxiety state, unspecified (Chronic 06/16/11) Alcohol abuse, unspecified (Resolved 07/15/12) Bipolar disorder (Chronic) Overdose of antipsychotic (Resolved) Pyelonephritis (Resolved) Suicidal ideation (Resolved) Cellulitis (Resolved) Acute appendicitis (Resolved 12/25/12) Acute cholecystitis (Resolved) Surgical History History of appendectomy (Resolved 12/25/12) Cholecystostomy care History of dental surgery Tubal ligation status Social History Preferred Language: Belarusian Communication Ability: Effective 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 Beliefs That Will Affect Care: None marital status: Single Current Living Situation: Significant Other current occupational status: unemployed current occupation: Prior employment at [employer] Other Information That Helps Us Care for You: No Feels Safe at Home: Yes Safety Concerns: Feels Safe At This Time Smoking Status: Current every day smoker Tobacco Type: cigarettes Cigarettes Per Day: 20 Do You Dip or Chew Tobacco: No Second Hand Exposure: No Tobacco Cessation Education Requested by Patient: No Hx Alcohol Use: Yes Alcohol type: beer Hx Substance Use: Yes Last Used Substance: Unknown Last Used Substance Other:: patient states clean X 5 years Review of Systems See HPI for pertinent positives & negatives. and A total of 10 systems reviewed and were otherwise negative Physical Exam Vital Signs Vital Signs - 24 hr 12/02/18 11:29 12/02/18 15:22 12/02/18 15:31 Temperature 36.5 C 36.5 C Temperature Source Oral Pulse Rate [Finger] 73 73 Respiratory Rate 16 16 Blood Pressure [Left Arm] 143/90 H 143/90 H Blood Pressure [Right Arm] 159/115 H 159/115 H Blood Pressure Mean [Left Arm] 107 Blood Pressure Mean [Right Arm] 129 Blood Pressure Position [Left Arm] Lying Blood Pressure Position [Right Arm] Lying Pulse Oximetry 98 98 Oxygen Delivery Method Room Air 12/02/18 15:34 12/02/18 15:54 Temperature 36.5 C Temperature Source Pulse Rate [Finger] 73 Respiratory Rate 16 Blood Pressure [Left Arm] 143/90 H Blood Pressure [Right Arm] 159/115 H 140/94 Blood Pressure Mean [Left Arm] Blood Pressure Mean [Right Arm] 109 Blood Pressure Position [Left Arm] Blood Pressure Position [Right Arm] Pulse Oximetry 98 Oxygen Delivery Method Vital signs reviewed. Hypertensive and tachycardic. General: Well-appearing female, in no significant distress. Smells of alcohol. HEENT: No scleral icterus, PERRLA, neck supple. Atraumatic. Cardiovascular: Tachycardic. Regular rhythm, no extra sounds. Pulmonary: Clear to auscultation bilaterally, normal work of breathing. Abdomen: Soft, nontender, nondistended, positive bowel sounds. Musculoskeletal: Atraumatic, no peripheral edema. Neurologic: Patient awake alert and oriented x 3, full strength in all 4 extremities. Cranial nerves 2 through 12 grossly intact. Skin: Warm, dry, no rash Course 0251: The patient was evaluated in room B3B, and a complete history and physical examination were performed. 0522: I checked in on the patient and discussed her tests results with her. 0540: Upon reevaluation, the patient appeared to have improvement of her symptoms. I discussed tonight's findings with her. She verbalized agreement of the treatment plan. She was discharged home. 0600: Per nursing staff, the patient was given her medications and was found in the bathroom vomiting. 0605: I reevaluated the patient and I discussed my recommendation for inpatient stay. 0608: [facility] the [facility] He will evaluate the patient for further management. Consultations Consultation #1: Andreia Ramon [facility]ist Time: 06:08 Administered Medications Discontinued Medications Acetaminophen (Tylenol) 1,000 mg PO NOW STA Stop: 12/01/18 05:27 Last Admin: 12/01/18 07:55 Dose: 1,000 mg Documented by: [id number] Acetaminophen (Tylenol) 650 mg PO Q4H PRN PRN Reason: Pain or Fever Stop: 12/31/18 09:25 Last Admin: 12/02/18 07:17 Dose: 650 mg Documented by: [id number] Admin: 12/01/18 10:36 Dose: 650 mg Documented by: [id number] Aripiprazole (Abilify) 10 mg PO QPM VANIA Stop: 12/31/18 20:59 Last Admin: 12/01/18 20:41 Dose: 10 mg Documented by: [id number] Benztropine Mesylate (Cogentin) 0.5 mg PO HS VANIA Stop: 12/31/18 20:59 Last Admin: 12/01/18 20:42 Dose: 0.5 mg Documented by: [id number] Bupropion HCl (Wellbutrin-Sr) 100 mg PO DAILY VANIA Stop: 12/31/18 09:44 Last Admin: 12/02/18 08:55 Dose: 100 mg Documented by: [id number] Admin: 12/01/18 10:24 Dose: 100 mg Documented by: [id number] Clonidine HCl (Catapres) 0.2 mg PO NOW ONE Stop: 12/01/18 02:55 Last Admin: 12/01/18 03:08 Dose: 0.2 mg Documented by: [id number] Clonidine HCl (Catapres) 0.2 mg PO NOW ONE Stop: 12/01/18 05:26 Last Admin: 12/01/18 07:59 Dose: 0.2 mg Documented by: [id number] Clonidine HCl (Catapres) Confirm Administered Dose 0.1 mg .ROUTE .STK-MED ONE Stop: 12/01/18 07:59 Last Admin: 12/01/18 09:28 Dose: Not Given Documented by: [id number] Clonidine HCl (Catapress) 0.2 mg PO TID [facility] Stop: 12/31/18 13:59 Last Admin: 12/01/18 14:32 Dose: Not Given Documented by: [id number] Clonidine HCl (Catapres) 0.1 mg PO TID [facility] Stop: 12/31/18 20:59 Last Admin: 12/02/18 15:22 Dose: 0.1 mg Documented by: [id number] Admin: 12/02/18 08:52 Dose: Not Given Documented by: [id number] Admin: 12/01/18 20:40 Dose: Not Given Documented by: [id number] Clonidine HCl (Catapres) 0.1 mg PO 1500 ONE Stop: 12/01/18 15:01 Last Admin: 12/01/18 15:48 Dose: Not Given Documented by: [id number] Enoxaparin Sodium (Lovenox) 40 mg SQ QAM [facility] Stop: 12/31/18 10:59 Last Admin: 12/02/18 08:54 Dose: Not Given Documented by: [id number] Admin: 12/01/18 11:27 Dose: 40 mg Documented by: [id number] Gadobutrol (Gadavist 65ml) 9.5 ml IV ONCE PRN PRN Reason: Interaction Checking Stop: 12/05/18 13:29 Last Admin: 12/01/18 13:31 Dose: 9.5 ml Documented by: [id number] Lorazepam (Ativan) 1 mg in 2 mls @ 2 mls/min IV NOW STA Stop: 12/01/18 02:53 Last Admin: 12/01/18 03:28 Dose: Not Given Documented by: [id number] Lorazepam (Ativan) 2 mg in 4 mls @ 4 mls/min IV NOW STA Stop: 12/01/18 05:49 Last Admin: 12/01/18 06:07 Dose: Not Given Documented by: [id number] Prochlorperazine 5 mg/ Syringe 5 mls @ 5 mls/min IV ONE ONE Stop: 12/01/18 07:36 Last Admin: 12/01/18 07:54 Dose: 5 mls/min Documented by: [id number] Potassium Chloride (K Wagner / Wtr) 10 meq in 100 mls @ 100 mls/hr IV Q1H VANIA Stop: 12/01/18 13:59 Last Admin: 12/01/18 10:53 Dose: Not Given Documented by: [id number] Admin: 12/01/18 10:52 Dose: Not Given Documented by: [id number] Admin: 12/01/18 10:52 Dose: Not Given Documented by: [id number] Infusion: 12/01/18 10:39 Dose: 0 mls/hr Documented by: [id number] Admin: 12/01/18 10:18 Dose: 100 mls/hr Documented by: [id number] Potassium Chloride/Sodium Chloride (Normal Saline W/20 Meq Kcl) 20 meq in 1,000 mls @ 50 mls/hr IV .Q20H ONE Stop: 12/02/18 05:44 Last Infusion: 12/02/18 15:24 Dose: 0 mls/hr Documented by: [id number] Admin: 12/01/18 10:18 Dose: 50 mls/hr Documented by: [id number] Prochlorperazine 5 mg/ Syringe 5 mls @ 5 mls/min IV Q6H PRN PRN Reason: Nausea And Vomiting Stop: 12/31/18 09:25 Last Admin: 12/02/18 02:20 Dose: 5 mls/min Documented by: [id number] Admin: 12/01/18 17:56 Dose: 5 mls/min Documented by: [id number] Irbesartan (Avapro) 150 mg PO NOW STA Stop: 12/01/18 05:26 Last Admin: 12/01/18 07:55 Dose: 150 mg Documented by: [id number] Irbesartan (Avapro) 150 mg PO DAILY VANIA Stop: 01/01/19 08:59 Last Admin: 12/02/18 08:53 Dose: 150 mg Documented by: [id number] Labetalol HCl (Normodyne) 10 mg IV NOW STA Stop: 12/01/18 03:42 Last Admin: 12/01/18 03:49 Dose: 10 mg Documented by: [id number] Cosigned by: [id number] Labetalol HCl (Normodyne) 20 mg IV NOW STA Stop: 12/01/18 06:05 Last Admin: 12/01/18 06:13 Dose: 20 mg Documented by: [id number] Cosigned by: [id number] Lamotrigine (Lamictal) 75 mg PO QAM [facility] Stop: 12/31/18 09:25 Last Admin: 12/02/18 08:54 Dose: 75 mg Documented by: [id number] Admin: 12/01/18 10:24 Dose: 75 mg Documented by: [id number] Miscellaneous (Remove Nicoderm Patch) 1 ea N/A HS [facility] Stop: 12/31/18 20:59 Last Admin: 12/01/18 20:43 Dose: 1 ea Documented by: [id number] Nic[facility] ([facility] Cq) [facility] [place]: 12/31/18 07:49 Last Admin: 12/02/18 08:55 Dose: 14 mg Documented by: [id number] Admin: 12/01/18 08:03 Dose: 14 mg Documented by: [id number] Ondansetron HCl (Zofran) 4 mg IV NOW STA Stop: 12/01/18 05:58 Last Admin: 12/01/18 06:04 Dose: 4 mg Documented by: [id number] Oxycodone HCl (Roxicodone Immediate Rel) 5 mg PO NOW STA Stop: 12/01/18 07:10 Last Admin: 12/01/18 07:54 Dose: 5 mg Documented by: [id number] Oxycodone HCl (Roxicodone Immediate Rel) 5 mg PO Q8H PRN PRN Reason: Pain Stop: 12/15/18 09:25 Last Admin: 12/02/18 09:00 Dose: 5 mg Documented by: [id number] Admin: 12/01/18 22:40 Dose: 5 mg Documented by: [id number] Admin: 12/01/18 14:32 Dose: 5 mg Documented by: [id number] Potassium Chloride (Klor-Con M10) 40 meq PO NOW STA Stop: 12/01/18 03:51 Last Admin: 12/01/18 03:54 Dose: 40 meq Documented by: [id number] Potassium Chloride (Klor-Con M20) 40 meq PO NOW STA Stop: 12/01/18 10:53 Last Admin: 12/01/18 11:05 Dose: 40 meq Documented by: [id number] Spironolactone (Aldactone) 50 mg PO NOW ONE Stop: 12/01/18 05:26 Last Admin: 12/01/18 07:55 Dose: 50 mg Documented by: [id number] Spironolactone (Aldactone) 50 mg PO DAILY VANIA Stop: 01/01/19 08:59 Last Admin: 12/02/18 08:53 Dose: 50 mg Documented by: [id number] Medical Decision Making Differential Diagnosis Differential diagnosis: Etiologies such as benign hypertension, hypertensive emergency, cardiovascular pathology, pheochromocytoma, electrolyte abnormality, renal disease, endorgan damage, as well as others were entertained. Medical Records Attestation: I reviewed the patient's medical records. Home Medications Current Medication List: was personally reviewed by me Laboratory Data Attestation: I reviewed the patient's lab results. Result diagrams: 12/02/18 05:41 12/02/18 05:41 Lab Results 12/01/18 12/01/18 12/01/18 Range/Units 02:46 02:46 02:46 WBC 8.96 (4.8-10.8) K/uL RBC 4.99 (4.2-5.4) M/uL Hgb 14.7 (12.0-16.0) g/dL Hct 42.1 (37-47) % MCV 84.4 (80-100) fL MCH 29.5 (25-34) pg MCHC 34.9 (32-36) g/dL RDW Std Deviation 45.6 (36.4-46.3) fL RDW Coeff of Carmen 14.8 H (11.5-14.5) % Plt Count 308 (130-400) K/uL MPV 9.2 (7.4-10.4) fL Immature Gran % (Auto) 0.2 % Neut % (Auto) 49.4 % Lymph % (Auto) 36.7 % [place] % (Auto) 8.4 % Eos % (Auto) 4.7 % Baso % (Auto) 0.6 % Immature Gran # (Auto) 0.02 (0.00-0.02) K/uL Neut # (Auto) 4.43 (1.4-6.5) K/uL Lymph # (Auto) 3.29 (1.2-3.4) K/uL [place] # (Auto) 0.75 H (0.11-0.59) K/uL Eos # (Auto) 0.42 (0-0.5) K/uL Baso # (Auto) 0.05 (0-0.2) K/uL PT (9.0-12.0) Seconds INR (0.9-1.1) Sodium 137 (136-145) mmol/L Potassium 3.1 L (3.5-5.1) mmol/L Chloride 108 H (98-107) mmol/L Carbon Dioxide 23 (21-32) mmol/L Anion Gap 6.0 (3-11) BUN 6 L (7-18) mg/dl Creatinine 0.65 (0.6-1.2) mg/dl Est Cr Clr Drug Dosing 144.3 ml/min Est GFR ( Amer) 137.1 Est GFR (Non-Af Amer) 118.3 BUN/Creatinine Ratio 9.7 L (10-20) Glucose 89 (70-99) mg/dl Calcium 8.4 L (8.5-10.1) mg/dl Magnesium 2.1 (1.8-2.4) mg/dl Total Bilirubin 0.3 (0.2-1) mg/dl AST 10 L (15-37) U/L ALT 17 (12-78) U/L Alkaline Phosphatase 65 (45-117) U/L Total Protein 8.1 (6.4-8.2) gm/dl Albumin 3.9 (3.4-5.0) gm/dl Globulin 4.2 H (2.5-4.0) gm/dl Albumin/Globulin Ratio 0.9 (0.9-2) Triglycerides (0-150) mg/dl Cholesterol (0-200) mg/dl LDL Cholesterol, Calc mg/dl VLDL Cholesterol, Calc mg/dl HDL Cholesterol mg/dl Cholesterol/HDL Ratio Lipase 114 (73-393) U/L TSH 2.860 (0.300-4.500) uIu/ml Urine Color Urine Appearance (Clear) Urine pH (4.5-7.5) Ur Specific [place] (1.000-1.030) Urine Protein (Negative) Urine Glucose (UA) (Negative) Urine Ketones (Negative) Urine Blood (Negative) Urine Nitrite (Negative) Urine Bilirubin (Negative) Urine Urobilinogen (Negative) Ur Leukocyte Esterase (Negative) Urine WBC (Auto) (0-5) /hpf Urine RBC (Auto) (0-4) /hpf U Hyaline Cast (Auto) (0-5) /lpf U Epithel Cells (Auto) (0-5) /lpf Urine Bacteria (Auto) (Negative) Urine Test (Negative) Urine Opiates Screen (Neg) Ur Methadone, Qual (Neg) Urine Barbiturates (Neg) Ur Phencyclidine (PCP) (Neg) U Amphetamin/Meth Scrn (Neg) MDMA (Ecstasy) Screen (Neg) U Benzodiazepines Scrn (Neg) Ur Cocaine Metabolite (Neg) U Marijuana (THC) Screen (Neg) Ethyl Alcohol mg/dL (0-3) mg/dl 12/01/18 12/01/18 12/01/18 Range/Units 02:46 03:02 08:20 WBC (4.8-10.8) K/uL RBC (4.2-5.4) M/uL Hgb (12.0-16.0) g/dL Hct (37-47) % MCV (80-100) fL MCH (25-34) pg MCHC (32-36) g/dL RDW Std Deviation (36.4-46.3) fL RDW Coeff of Carmen (11.5-14.5) % Plt Count (130-400) K/uL MPV (7.4-10.4) fL Immature Gran % (Auto) % Neut % (Auto) % Lymph % (Auto) % [place] % (Auto) % Eos % (Auto) % Baso % (Auto) % Immature Gran # (Auto) (0.00-0.02) K/uL Neut # (Auto) (1.4-6.5) K/uL Lymph # (Auto) (1.2-3.4) K/uL [place] # (Auto) (0.11-0.59) K/uL Eos # (Auto) (0-0.5) K/uL Baso # (Auto) (0-0.2) K/uL PT 10.3 (9.0-12.0) Seconds INR 1.0 (0.9-1.1) Sodium (136-145) mmol/L Potassium (3.5-5.1) mmol/L Chloride (98-107) mmol/L Carbon Dioxide (21-32) mmol/L Anion Gap (3-11) BUN (7-18) mg/dl Creatinine (0.6-1.2) mg/dl Est Cr Clr Drug Dosing ml/min Est GFR ( Amer) Est GFR (Non-Af Amer) BUN/Creatinine Ratio (10-20) Glucose (70-99) mg/dl Calcium (8.5-10.1) mg/dl Magnesium (1.8-2.4) mg/dl Total Bilirubin (0.2-1) mg/dl AST (15-37) U/L ALT (12-78) U/L Alkaline Phosphatase (45-117) U/L Total Protein (6.4-8.2) gm/dl Albumin (3.4-5.0) gm/dl Globulin (2.5-4.0) gm/dl Albumin/Globulin Ratio (0.9-2) Triglycerides (0-150) mg/dl Cholesterol (0-200) mg/dl LDL Cholesterol, Calc mg/dl VLDL Cholesterol, Calc mg/dl HDL Cholesterol mg/dl Cholesterol/HDL Ratio Lipase (73-393) U/L TSH (0.300-4.500) uIu/ml Urine Color Urine Appearance (Clear) Urine pH (4.5-7.5) Ur Specific [place] (1.000-1.030) Urine Protein (Negative) Urine Glucose (UA) (Negative) Urine Ketones (Negative) Urine Blood (Negative) Urine Nitrite (Negative) Urine Bilirubin (Negative) Urine Urobilinogen (Negative) Ur Leukocyte Esterase (Negative) Urine WBC (Auto) (0-5) /hpf Urine RBC (Auto) (0-4) /hpf U Hyaline Cast (Auto) (0-5) /lpf U Epithel Cells (Auto) (0-5) /lpf Urine Bacteria (Auto) (Negative) Urine Test (Negative) Urine Opiates Screen Neg (Neg) Ur Methadone, Qual Neg (Neg) Urine Barbiturates Neg (Neg) Ur Phencyclidine (PCP) Neg (Neg) U Amphetamin/Meth Scrn Neg (Neg) MDMA (Ecstasy) Screen Pos H (Neg) U Benzodiazepines Scrn Neg (Neg) Ur Cocaine Metabolite Neg (Neg) U Marijuana (THC) Screen Neg (Neg) Ethyl Alcohol mg/dL 142.0 H (0-3) mg/dl 04/17/19 04/17/19 04/17/19 Range/Units 08:20 13:46 17:36 WBC (4.8-10.8) K/uL RBC (4.2-5.4) M/uL Hgb (12.0-16.0) g/dL Hct (37-47) % MCV (80-100) fL MCH (25-34) pg MCHC (32-36) g/dL RDW Std Deviation (36.4-46.3) fL RDW Coeff of Carmen (11.5-14.5) % Plt Count (130-400) K/uL MPV (7.4-10.4) fL Immature Gran % (Auto) % Neut % (Auto) % Lymph % (Auto) % [place] % (Auto) % Eos % (Auto) % Baso % (Auto) % Immature Gran # (Auto) (0.00-0.02) K/uL Neut # (Auto) (1.4-6.5) K/uL Lymph # (Auto) (1.2-3.4) K/uL [place] # (Auto) (0.11-0.59) K/uL Eos # (Auto) (0-0.5) K/uL Baso # (Auto) (0-0.2) K/uL PT (9.0-12.0) Seconds INR (0.9-1.1) Sodium 138 (136-145) mmol/L Potassium 3.8 D (3.5-5.1) mmol/L Chloride 108 H (98-107) mmol/L Carbon Dioxide 27 (21-32) mmol/L Anion Gap 3.0 (3-11) BUN 9 (7-18) mg/dl Creatinine 0.88 (0.6-1.2) mg/dl Est Cr Clr Drug Dosing 106.6 ml/min Est GFR ( Amer) 101.5 Est GFR (Non-Af Amer) 87.6 BUN/Creatinine Ratio 10.4 (10-20) Glucose 93 (70-99) mg/dl Calcium 8.2 L (8.5-10.1) mg/dl Magnesium (1.8-2.4) mg/dl Total Bilirubin (0.2-1) mg/dl AST (15-37) U/L ALT (12-78) U/L Alkaline Phosphatase (45-117) U/L Total Protein (6.4-8.2) gm/dl Albumin (3.4-5.0) gm/dl Globulin (2.5-4.0) gm/dl Albumin/Globulin Ratio (0.9-2) Triglycerides (0-150) mg/dl Cholesterol (0-200) mg/dl LDL Cholesterol, Calc mg/dl VLDL Cholesterol, Calc mg/dl HDL Cholesterol mg/dl Cholesterol/HDL Ratio Lipase (73-393) U/L TSH (0.300-4.500) uIu/ml Urine Color Yellow Urine Appearance Clear (Clear) Urine pH 6.5 (4.5-7.5) Ur Specific [place] 1.006 (1.000-1.030) Urine Protein Negative (Negative) Urine Glucose (UA) Negative (Negative) Urine Ketones Negative (Negative) Urine Blood 1+ H (Negative) Urine Nitrite Negative (Negative) Urine Bilirubin Negative (Negative) Urine Urobilinogen Negative (Negative) Ur Leukocyte Esterase Negative (Negative) Urine WBC (Auto) 1-5 (0-5) /hpf Urine RBC (Auto) 0-4 (0-4) /hpf U Hyaline Cast (Auto) 0 (0-5) /lpf U Epithel Cells (Auto) 20-30 H (0-5) /lpf Urine Bacteria (Auto) Negative (Negative) Urine Test Negative (Negative) Urine Opiates Screen (Neg) Ur Methadone, Qual (Neg) Urine Barbiturates (Neg) Ur Phencyclidine (PCP) (Neg) U Amphetamin/Meth Scrn (Neg) MDMA (Ecstasy) Screen (Neg) U Benzodiazepines Scrn (Neg) Ur Cocaine Metabolite (Neg) U Marijuana (THC) Screen (Neg) Ethyl Alcohol mg/dL (0-3) mg/dl 12/01/18 12/02/18 12/02/18 Range/Units 22:37 05:41 05:41 WBC 8.09 (4.8-10.8) K/uL RBC 4.25 (4.2-5.4) M/uL Hgb 12.4 (12.0-16.0) g/dL Hct 38.1 (37-47) % MCV 89.6 D (80-100) fL MCH 29.2 (25-34) pg MCHC 32.5 (32-36) g/dL RDW Std Deviation 50.6 H (36.4-46.3) fL RDW Coeff of Carmen 15.4 H (11.5-14.5) % Plt Count 252 (130-400) K/uL MPV 9.3 (7.4-10.4) fL Immature Gran % (Auto) 0.1 % Neut % (Auto) 48.4 % Lymph % (Auto) 34.2 % [place] % (Auto) 11.6 % Eos % (Auto) 5.2 % Baso % (Auto) 0.5 % Immature Gran # (Auto) 0.01 (0.00-0.02) K/uL Neut # (Auto) 3.91 (1.4-6.5) K/uL Lymph # (Auto) 2.77 (1.2-3.4) K/uL [place] # (Auto) 0.94 H (0.11-0.59) K/uL Eos # (Auto) 0.42 (0-0.5) K/uL Baso # (Auto) 0.04 (0-0.2) K/uL PT (9.0-12.0) Seconds INR (0.9-1.1) Sodium 140 (136-145) mmol/L Potassium 4.0 (3.5-5.1) mmol/L Chloride 110 H (98-107) mmol/L Carbon Dioxide 28 (21-32) mmol/L Anion Gap 2.0 L (3-11) BUN 12 (7-18) mg/dl Creatinine 0.73 (0.6-1.2) mg/dl Est Cr Clr Drug Dosing 128.5 ml/min Est GFR ( Amer) 127.2 Est GFR (Non-Af Amer) 109.7 BUN/Creatinine Ratio 16.0 (10-20) Glucose 88 (70-99) mg/dl Calcium 8.8 (8.5-10.1) mg/dl Magnesium (1.8-2.4) mg/dl Total Bilirubin (0.2-1) mg/dl AST (15-37) U/L ALT (12-78) U/L Alkaline Phosphatase (45-117) U/L Total Protein (6.4-8.2) gm/dl Albumin (3.4-5.0) gm/dl Globulin (2.5-4.0) gm/dl Albumin/Globulin Ratio (0.9-2) Triglycerides 186 H (0-150) mg/dl Cholesterol 130 (0-200) mg/dl LDL Cholesterol, Calc 53 mg/dl VLDL Cholesterol, Calc 37 mg/dl HDL Cholesterol 40 mg/dl Cholesterol/HDL Ratio 3 Lipase (73-393) U/L TSH (0.300-4.500) uIu/ml Urine Color Urine Appearance (Clear) Urine pH (4.5-7.5) Ur Specific [place] (1.000-1.030) Urine Protein (Negative) Urine Glucose (UA) (Negative) Urine Ketones (Negative) Urine Blood (Negative) Urine Nitrite (Negative) Urine Bilirubin (Negative) Urine Urobilinogen (Negative) Ur Leukocyte Esterase (Negative) Urine WBC (Auto) (0-5) /hpf Urine RBC (Auto) (0-4) /hpf U Hyaline Cast (Auto) (0-5) /lpf U Epithel Cells (Auto) (0-5) /lpf Urine Bacteria (Auto) (Negative) Urine Test (Negative) Urine Opiates Screen Neg (Neg) Ur Methadone, Qual Neg (Neg) Urine Barbiturates Neg (Neg) Ur Phencyclidine (PCP) Neg (Neg) U Amphetamin/Meth Scrn Neg (Neg) MDMA (Ecstasy) Screen Pos H (Neg) U Benzodiazepines Scrn Neg (Neg) Ur Cocaine Metabolite Neg (Neg) U Marijuana (THC) Screen Pos H (Neg) Ethyl Alcohol mg/dL (0-3) mg/dl ECG Data Attestation: I personally reviewed and interpreted this ECG as follows: Indication: other (hypertension) Rate (beats per minute): 101 Rhythm: sinus tachycardia Findings: + other (left atrial enlargement) and + RBBB (incomplete); no acute ischemic change and no ectopy Blood Pressure Blood Pressure Findings: Elevated blood pressure Blood Pressure Disposition: Referred to patients primary care provider (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 IV access was e valuated and appeared to be in no distress. Pt was medicated with po clonidine 0.2mg. IV ativan was ordered for the possibility of ETOH w/d, however pt declined benzos d/t h/o addiction. She does not feel ETOH is a factor. Pt was ordered IV labetalol and subsequently po meds. Pt was then found vomiting in the bathroom, prior to med administration. She was then ordered additional IV labetalol 20 mg. I expressed concern about ETOH history again, given tachycardia and hypertension. Pt denies. She was d/w the hospitalist service for further management. Impression & Plan Hypertensive urgency Discharge Plan Visit Data *Final* Discharge Date/Time: 12/01/18 09:29 Chief Complaint: Hypertension Stated Complaint: HIGH BLOOD PRESSURE ED Provider: Angeline Mark Discharge Problem: Hypertensive urgency Patient Disposition: Admitted As Inpatient Condition: Good Discharge Instructions Interventions: ED Discharge Assessment Last Done: 12/01/18 09:29 The scribe's documentation has been prepared under my direction and personally reviewed by me in its entirety. I confirm that the note above accurately reflects all work, treatment, procedures, and medical decision making performed by me.
[2018-12-01] MEDS ORDERED: PROCHLORPERAZINE 5 MG in SYRINGE 4 ML IV ONE (07:35)
--- NOTE | 2018-12-01 07:35 | History & Physical Report ---
Date of Service December 01, 2018 Assessment & Plan (1) Hypertensive crisis: Improved BP after initial intervention at the ER Suboptimal BP control at home Rule out substance abuse (past history benzodiazepine/opiate abuse as per records) Recurrent syncope Seizure DSO versus pseudoseizure Hypokalemia secondary to emesis, diuretic Rx mood disorder, at baseline as per patient hx PE status post anti-coagulation ongoing tobacco abuse OBS Medical telemetry Increase home Clonidine dose from 0.1 to 0.2 mg 3 times daily GMG Nephrology consult RE uncontrolled hypertension (patient known to service) TTE RE syncope EEG, MRI brain, Neurology consult RE recurrent seizures Urine tox Caution with narcotic, benzodiazepine administration Replace potassium Nicotine patch DVT prophylaxis. Lovenox subcu Full code (2) Tubal ligation status: History of Present Illness Chief Complaint: Headache, blacking out, seizures Primary Care Provider: Angelic Pereira, History obtained from patient, family, and records. Medical history significant for hypertension, mood disorder, PE status post anti-coagulation, chronic back pain, past history benzodiazepine/opioid abuse as per records, ongoing tobacco abuse. Recent confinement at [facility] 2 weeks ago for malignant hypertension. Patient's blood pressure this week still suboptimal. SBP 130-200s. Patient claims to be compliant with regimen. Denies dietary indiscretion, NSAID intake, unusual stress. Yesterday patient had multiple "seizure" episodes. Shaking, sometimes passing out, sometimes not. She has had these episodes for some time now for which her LamCoAxiaal works. No previous EEGs, Neurology evaluation. Patient noted worsening generalized headache followed by nausea and emesis. Denies chest pain, abdominal pain complaints. Patient admits to drinking alcohol but denies habitual use/abuse. Upon arrival at the ER, SBP noted to be 170-200s. Allergies Allergy/AdvReac Type Severity Reaction Status Date / Time nut - unspecified Allergy Severe Anaphylaxis Verified 12/01/18 04:42 Penicillins Allergy Severe CAN'T Verified 12/01/18 04:42 BREATH tree nut Allergy Severe Anaphylaxis Verified 12/01/18 04:42 morphine Allergy Intermediate hives Verified 12/01/18 04:42 mushroom Allergy Intermediate HIVES Verified 12/01/18 04:42 Home Medications Home Medications Medication Instructions Recorded Confirmed Type aripiprazole 10 mg PO QPM 05/13/18 12/01/18 History benztropine 0.5 mg PO HS 05/13/18 12/01/18 History epinephrine [EpiPen] 0.3 mg IM Q3H PRN 05/13/18 12/01/18 History lamotrigine 75 mg PO QAM 05/13/18 12/01/18 History ondansetron HCl [Zofran] 4 mg PO TID PRN 05/13/18 12/01/18 History irbesartan 150 mg PO DAILY 11/07/18 12/01/18 History bupropion HCl 100 mg PO DAILY 12/01/18 12/01/18 History clonidine HCl 0.1 mg PO TID 12/01/18 12/01/18 History cyclobenzaprine 10 mg PO TID PRN 12/01/18 12/01/18 History lisdexamfetamine [Vyvanse] 30 mg PO DAILY PRN 12/01/18 12/01/18 History naproxen 500 mg PO BID PRN 12/01/18 12/01/18 History spironolactone 50 mg PO DAILY 12/01/18 12/01/18 History Past Med/Surg History Medical History Hypertension (Chronic 07/15/12) Anxiety state, unspecified (Chronic 06/16/11) Alcohol abuse, unspecified (Resolved 07/15/12) Bipolar disorder (Chronic) Overdose of antipsychotic (Resolved) Pyelonephritis (Resolved) Suicidal ideation (Resolved) Cellulitis (Resolved) Acute appendicitis (Resolved 12/25/12) Acute cholecystitis (Resolved) Surgical History History of appendectomy (Resolved 12/25/12) Cholecystostomy care History of dental surgery Tubal ligation status Social History Preferred Language: Azeri Communication Ability: Effective 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 Beliefs That Will Affect Care: None marital status: Single Current Living Situation: Significant Other current occupational status: unemployed current occupation: Prior employment at [employer] Other Information That Helps Us Care for You: No Feels Safe at Home: Yes Safety Concerns: Feels Safe At This Time Smoking Status: Current every day smoker Tobacco Type: cigarettes Cigarettes Per Day: 20 Do You Dip or Chew Tobacco: No Second Hand Exposure: No Tobacco Cessation Education Requested by Patient: No Hx Alcohol Use: Yes Alcohol type: beer Hx Substance Use: Yes Last Used Substance: Unknown Last Used Substance Other:: patient states clean X 5 years Review of Systems Review of Systems: As per HPI, all 10 systems reviewed, all other ROS negative Physical Exam Vital Signs (Past 24 Hours): Last Vital Signs Temp 36.7 C 12/01/18 02:26 Pulse 97 H 12/01/18 06:33 Resp 16 12/01/18 06:33 BP 177/111 H 12/01/18 06:33 Pulse Ox 97 12/01/18 06:33 Physical Exam: GENERAL: uncomfortable, obese, no respiratory distress, looks older than stated age SKIN: Normal color, warm HEENT: [place] palpebral conjunctivae, no ptosis, dry buccal mucosa NECK : Supple, short neck, no tenderness CHEST : CTA, no tenderness HEART : RRR, no obvious murmurs ABDOMEN: Some distention, nontender EXTREMITIES : Minimal LE swelling, no LE tenderness, no other conspicuous deformities noted NEUROLOGIC : Coherent, no facial asymmetry, no other gross focality Results & Data Laboratory Results Laboratory Results WBC 8.96 K/uL (4.8-10.8) 12/01/18 02:46 RBC 4.99 M/uL (4.2-5.4) 12/01/18 02:46 Hgb 14.7 g/dL (12.0-16.0) 12/01/18 02:46 Hct 42.1 % (37-47) 12/01/18 02:46 MCV 84.4 fL (80-100) 12/01/18 02:46 MCH 29.5 pg (25-34) 12/01/18 02:46 MCHC 34.9 g/dL (32-36) 12/01/18 02:46 RDW Std Deviation 45.6 fL (36.4-46.3) 12/01/18 02:46 RDW Coeff of Carmen 14.8 % (11.5-14.5) H 12/01/18 02:46 Plt Count 308 K/uL (130-400) 12/01/18 02:46 MPV 9.2 fL (7.4-10.4) 12/01/18 02:46 Immature Gran % (Auto) 0.2 % 12/01/18 02:46 Neut % (Auto) 49.4 % 12/01/18 02:46 Lymph % (Auto) 36.7 % 12/01/18 02:46 Patrick % (Auto) 8.4 % 12/01/18 02:46 Eos % (Auto) 4.7 % 12/01/18 02:46 Baso % (Auto) 0.6 % 12/01/18 02:46 Immature Gran # (Auto) 0.02 K/uL (0.00-0.02) 12/01/18 02:46 Neut # (Auto) 4.43 K/uL (1.4-6.5) 12/01/18 02:46 Lymph # (Auto) 3.29 K/uL (1.2-3.4) 12/01/18 02:46 Patrick # (Auto) 0.75 K/uL (0.11-0.59) H 12/01/18 02:46 Eos # (Auto) 0.42 K/uL (0-0.5) 12/01/18 02:46 Baso # (Auto) 0.05 K/uL (0-0.2) 12/01/18 02:46 Sodium 137 mmol/L (136-145) 12/01/18 02:46 Potassium 3.1 mmol/L (3.5-5.1) L 12/01/18 02:46 Chloride 108 mmol/L (98-107) H 12/01/18 02:46 Carbon Dioxide 23 mmol/L (21-32) 12/01/18 02:46 Anion Gap 6.0 (3-11) 12/01/18 02:46 BUN 6 mg/dl (7-18) L 12/01/18 02:46 Creatinine 0.65 mg/dl (0.6-1.2) 12/01/18 02:46 Est Cr Clr Drug Dosing 144.3 ml/min 12/01/18 02:46 Est GFR ( Amer) 137.1 12/01/18 02:46 Est GFR (Non-Af Amer) 118.3 12/01/18 02:46 BUN/Creatinine Ratio 9.7 (10-20) L 12/01/18 02:46 Glucose 89 mg/dl (70-99) 12/01/18 02:46 Calcium 8.4 mg/dl (8.5-10.1) L 12/01/18 02:46 Magnesium 2.1 mg/dl (1.8-2.4) 12/01/18 02:46 Total Bilirubin 0.3 mg/dl (0.2-1) 12/01/18 02:46 AST 10 U/L (15-37) L 12/01/18 02:46 ALT 17 U/L (12-78) 12/01/18 02:46 Alkaline Phosphatase 65 U/L (45-117) 12/01/18 02:46 Total Protein 8.1 gm/dl (6.4-8.2) 12/01/18 02:46 Albumin 3.9 gm/dl (3.4-5.0) 12/01/18 02:46 Globulin 4.2 gm/dl (2.5-4.0) H 12/01/18 02:46 Albumin/Globulin Ratio 0.9 (0.9-2) 12/01/18 02:46 Lipase 114 U/L (73-393) 12/01/18 02:46 TSH 2.860 uIu/ml (0.300-4.500) 12/01/18 02:46 Ethyl Alcohol mg/dL 142.0 mg/dl (0-3) H 12/01/18 03:[address] head initial read no acute pathology EKG as per my interpretation rate 105, sinus tachycardia, LAE, incomplete RBBB,
[2018-12-01] MEDS ORDERED: cloNIDine HCl 0.1 MG TAB ONE (07:58)
[2018-12-01] MEDS: NICOTINE 14 MG/24 HR PATCH TD SCH (08:03)
[2018-12-01 08:40] LABS: Appearance Urine Clear (Clear); Bacteria Urine Automated Negative (Negative); Bilirubin Urine Negative (Negative); Blood Urine 1+ (Negative); Cast Urine Automated 0 /lpf (0-5); Color Urine Yellow; Epithelial Cell Urine Auto 20-30 /lpf (0-5); Glucose Urine UA Negative (Negative); Ketones Urine Negative (Negative); Leukocyte Esterase Urine Negative (Negative); Nitrite Urine Negative (Negative); Protein Urine Negative (Negative); RBC Urine Automated 0-4 /hpf (0-4); Specific Gravity Urine 1.006 (1.000-1.030); Urobilinogen Urine Negative (Negative); pH Urine 6.5 (4.5-7.5)
[2018-12-01 09:17] LABS: Amphetamines+Metham, Urine Neg (Neg); Barbiturates, Urine Neg (Neg); Benzodiazepine, Urine Neg (Neg); Cocaine, Urine Neg (Neg); MDMA (Ecstacy), Urine Pos (Neg); Methadone, Urine Neg (Neg); Opiate, Urine Neg (Neg); Phencyclidine, Urine Neg (Neg)
[2018-12-01] MEDS ORDERED: ENOXAPARIN INJ 40 MG/0.4 ML SYR SQ SCH (09:26)
[2018-12-01] MEDS ORDERED: CYCLOBENZAPRINE HCL 10 MG TAB PO PRN (09:26)
[2018-12-01] MEDS ORDERED: hydrOXYzine HCl 10 MG TAB PO PRN (09:26)
[2018-12-01] MEDS ORDERED: LISDEXAMFETAMINE 30 MG PO PRN (09:26)
[2018-12-01] MEDS ORDERED: NITROGLYCERIN SL 0.4 MG/TAB TAB SL PRN (09:26)
[2018-12-01] MEDS ORDERED: NSS + 20MEQ KCL 20 MEQ/1,000 ML BAG IV ONE (09:45)
[2018-12-01] MEDS: POTASSIUM CHLORIDE / WTR 10 MEQ/100 ML PLCT IV SCH ×3 (10:18→10:53)
[2018-12-01] MEDS: BuPROPion SR 100 MG TABCR PO SCH (10:24)
[2018-12-01] MEDS: lamoTRIgine 25 MG TAB PO SCH (10:24)
[2018-12-01 10:27] LABS: Prothrombin Time 10.3 Seconds (9.0-12.0)
[2018-12-01] MEDS: ACETAMINOPHEN 325 MG TAB PO PRN (10:36)
[2018-12-01] MEDS ORDERED: POTASSIUM CHLORIDE 20 MEQ TABCR PO STA (10:52)
[2018-12-01] MEDS: ENOXAPARIN INJ 40 MG/0.4 ML SYR SQ SCH (11:27)
--- NOTE | 2018-12-01 12:48 | Procedure Note ---
EEG Procedure Note Date of Service December 01, 2018 Start / End Times Start Time: 1100 End Time: 1124 Referring Physician Thalia Fofana MD History possible seizures Home Medication List Home Medications Medication Instructions Recorded Confirmed Type aripiprazole 10 mg PO QPM 05/13/18 12/01/18 History benztropine 0.5 mg PO HS 05/13/18 12/01/18 History epinephrine [EpiPen] 0.3 mg IM Q3H PRN 05/13/18 12/01/18 History lamotrigine 75 mg PO QAM 05/13/18 12/01/18 History ondansetron HCl [Zofran] 4 mg PO TID PRN 05/13/18 12/01/18 History irbesartan 150 mg PO DAILY 11/07/18 12/01/18 History bupropion HCl 100 mg PO DAILY 12/01/18 12/01/18 History clonidine HCl 0.1 mg PO TID 12/01/18 12/01/18 History cyclobenzaprine 10 mg PO TID PRN 12/01/18 12/01/18 History lisdexamfetamine [Vyvanse] 30 mg PO DAILY PRN 12/01/18 12/01/18 History naproxen 500 mg PO BID PRN 12/01/18 12/01/18 History spironolactone 50 mg PO DAILY 12/01/18 12/01/18 History Inpatient Medication List Acetaminophen (Tylenol) 650 mg PO Q4H PRN PRN Reason: Pain or Fever Stop: 12/31/18 09:25 Last Admin: 12/01/18 10:36 Dose: 650 mg Documented by: [id number] Bupropion HCl (Wellbutrin-Sr) 100 mg PO DAILY REPLACED BY [facility] Stop: 12/31/18 09:44 Last Admin: 12/01/18 10:24 Dose: 100 mg Documented by: [id number] Enoxaparin Sodium (Lovenox) 40 mg SQ QAM REPLACED BY [facility] Stop: 12/31/18 10:59 Last Admin: 12/01/18 11:27 Dose: 40 mg Documented by: [id number] Potassium Chloride (K Wagner / Wtr) 10 meq in 100 mls @ 100 mls/hr IV Q1H REPLACED BY [facility] Stop: 12/01/18 13:59 Last Admin: 12/01/18 10:53 Dose: Not Given Documented by: [id number] Admin: 12/01/18 10:52 Dose: Not Given Documented by: [id number] Admin: 12/01/18 10:52 Dose: Not Given Documented by: [id number] Infusion: 12/01/18 10:39 Dose: 0 mls/hr Documented by: [id number] Admin: 12/01/18 10:18 Dose: 100 mls/hr Documented by: [id number] Potassium Chloride/Sodium Chloride (Normal Saline W/20 Meq Kcl) 20 meq in 1,000 mls @ 50 mls/hr IV .Q20H ONE Stop: 12/02/18 05:44 Last Admin: 12/01/18 10:18 Dose: 50 mls/hr Documented by: [id number] Lamotrigine (Lamictal) 75 mg PO [facility] Stop: 12/31/18 09:25 Last Admin: 12/01/18 10:24 Dose: 75 mg Documented by: [id number] Nicotine (Nicoderm Cq) 14 mg TD [facility] Stop: 12/31/18 07:49 Last Admin: 12/01/18 08:03 Dose: 14 mg Documented by: [id number] Discontinued Medications Acetaminophen (Tylenol) 1,000 mg PO NOW STA Stop: 12/01/18 05:27 Last Admin: 12/01/18 07:55 Dose: 1,000 mg Documented by: [id number] Clonidine HCl (Catapres) 0.2 mg PO NOW ONE Stop: 12/01/18 02:55 Last Admin: 12/01/18 03:08 Dose: 0.2 mg Documented by: [id number] Clonidine HCl (Catapres) 0.2 mg PO NOW ONE Stop: 12/01/18 05:26 Last Admin: 12/01/18 07:59 Dose: 0.2 mg Documented by: [id number] Clonidine HCl (Catapres) Confirm Administered Dose 0.1 mg .ROUTE .STK-MED ONE Stop: 12/01/18 07:59 Last Admin: 12/01/18 09:28 Dose: Not Given Documented by: [id number] Lorazepam (Ativan) 1 mg in 2 mls @ 2 mls/min IV NOW STA Stop: 12/01/18 02:53 Last Admin: 12/01/18 03:28 Dose: Not Given Documented by: [id number] Lorazepam (Ativan) 2 mg in 4 mls @ 4 mls/min IV NOW STA Stop: 12/01/18 05:49 Last Admin: 12/01/18 06:07 Dose: Not Given Documented by: [id number] Prochlorperazine 5 mg/ Syringe 5 mls @ 5 mls/min IV ONE ONE Stop: 12/01/18 07:36 Last Admin: 12/01/18 07:54 Dose: 5 mls/min Documented by: [id number] Irbesartan (Avapro) 150 mg PO NOW STA Stop: 12/01/18 05:26 Last Admin: 12/01/18 07:55 Dose: 150 mg Documented by: [id number] Labetalol HCl (Normodyne) 10 mg IV NOW STA Stop: 12/01/18 03:42 Last Admin: 12/01/18 03:49 Dose: 10 mg Documented by: [id number] Cosigned by: [id number] Labetalol HCl (Normodyne) 20 mg IV NOW STA Stop: 12/01/18 06:05 Last Admin: 12/01/18 06:13 Dose: 20 mg Documented by: [id number] Cosigned by: [id number] Ondansetron HCl (Zofran) 4 mg IV NOW STA Stop: 12/01/18 05:58 Last Admin: 12/01/18 06:04 Dose: 4 mg Documented by: [id number] Oxycodone HCl (Roxicodone Immediate Rel) 5 mg PO NOW STA Stop: 12/01/18 07:10 Last Admin: 12/01/18 07:54 Dose: 5 mg Documented by: [id number] Potassium Chloride (Klor-Con M10) 40 meq PO NOW STA Stop: 12/01/18 03:51 Last Admin: 12/01/18 03:54 Dose: 40 meq Documented by: [id number] Potassium Chloride (Klor-Con M20) 40 meq PO NOW STA Stop: 12/01/18 10:53 Last Admin: 12/01/18 11:05 Dose: 40 meq Documented by: [id number] Spironolactone (Aldactone) 50 mg PO NOW ONE Stop: 12/01/18 05:26 Last Admin: 12/01/18 07:55 Dose: 50 mg Documented by: [id number] Description This is a 21 electrode EEG with a single channel dedicated to limited EKG. The electrodes were placed in accordance with the International 10-20 system. The tracing is done at the bedside and is of goo quality with a few head movement related artefacts photic stimulation was perfomred sleep is not obtained and video analysis of movements and behavior is recorded The tracing shows a normal alpha rhythm posteriorly, a nomral and symmoetrical modest voltage central theta and a normal symmetrical low voltage frontal alpha pattern with no significan abnormalities induced by photic stimulation and no evidence for potentially epileptogenic activity. Interpretation Normal waking eeg Clinical Correlation Normal study with no evidence for a focal or generalized encephalopthy or potentially epileptogenic acitivty during wakefulness Manjit Oliveros MD
[2018-12-01] MEDS ORDERED: GADOBUTROL 65ML VIAL IV PRN (13:30)
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
--- NOTE | 2018-12-01 13:53 | Magnetic Resonance Report ---
MRI OF THE BRAIN COMBO CLINICAL HISTORY: Seizure. COMPARISON STUDY: CT of the brain dated 12/01/2018. TECHNIQUE: MRI of the brain was performed utilizing various T1 and T2-weighted sequences in the axial , sagittal, and coronal planes. Contrast-enhanced sequences were acquired following the administratio n of 9.5 cc of Gadavist. The examination is performed using the seizure protocol. FINDINGS: Brain parenchyma: The brain parenchyma is normal in appearance. A small developmental venous anomaly is incidentally noted in the right frontal lobe. There is no hemorrhage or mass effect. There is no r estricted diffusion to suggest acute ischemia. No enhancing mass lesion is identified on the postcont rast images. Lucas-white matter differentiation is preserved. No extra-axial fluid collection is seen. The cerebellar tonsils are normal in configuration. The hippocampi are normal and symmetric. Ventricles, sulci, and cisterns: Normal in configuration. Pituitary and sella: Unremarkable. Intracranial vasculature: Normal flow voids are maintained at the skull base. Orbits: The bony orbits are grossly intact. Orbital contents are normal in appearance. Sinuses and mastoids: Clear. Calvarium: Unremarkable. Cervical cord: Partially visualized cervical spinal cord is normal in morphology and signal intensity . IMPRESSION: No acute intracranial abnormality. Electronically signed by: Rakesh Sarabia M.D. 12/01/2018 1:52 PM
[2018-12-01] MEDS ORDERED: cloNIDine HCl 0.1 MG TAB PO SCH (14:00)
[2018-12-01] MEDS: OXYCODONE HCL IR 5 MG TAB (IMMEDIATE RELEASE) PO PRN ×2 (14:32→22:40)
[2018-12-01 14:33] LABS: BUN Creatinine Ratio 10.4 (10-20); Calcium 8.2 mg/dl (8.5-10.1); Creatinine Clr Calc Pharmacy 106.6 ml/min; Est GFR (African American) 101.5; Est GFR (Non-African American) 87.6; Potassium 3.8 mmol/L (3.5-5.1)
--- NOTE | 2018-12-01 16:53 | Hospitalist Progress Note ---
Date of Service December 01, 2018 Assessment & Plan (1) Hypertensive crisis: Improved BP after initial intervention at the ER Suboptimal BP control at home Rule out substance abuse (past history benzodiazepine/opiate abuse as per records) Recurrent syncope Seizure DSO versus pseudoseizure Hypokalemia secondary to emesis, diuretic Rx mood disorder, at baseline as per patient hx PE status post anti-coagulation ongoing tobacco abuse OBS Medical telemetry Increase home Clonidine dose from 0.1 to 0.2 mg 3 times daily [facility] Nephrology consult RE uncontrolled hypertension (patient known to service) TTE RE syncope EEG, MRI brain, Neurology consult RE recurrent seizures Urine tox Caution with narcotic, benzodiazepine administration Replace potassium Nicotine patch DVT prophylaxis. Lovenox subcu Full code (2) Tubal ligation status: Results & Data Vital Signs (Past 12 Hours) Vital Signs Temp Pulse Resp BP Pulse Ox 12/01/18 15:47 36.8 C 79 114/72 97 12/01/18 15:35 37.1 C 83 22 102/66 96 12/01/18 14:30 81 119/82 12/01/18 11:06 36.6 C 79 20 123/84 99 12/01/18 09:12 36.7 C 85 18 143/92 H 95 12/01/18 08:40 116/94 12/01/18 08:04 91 H 18 162/110 H 97 12/01/18 06:33 97 H 16 177/111 H 97 12/01/18 06:02 104 H 20 193/134 H 97 12/01/18 05:30 160 H 20 166/128 H 97 12/01/18 05:01 98 H 20 162/116 H 96
--- NOTE | 2018-12-01 16:55 | Nephrology Consultation ---
Date of Consultation December 01, 2018 Assessment & Plan (1) Hypertensive urgency: HTN in the setting of EtOH intoxication and possible amphetamine use (may well be from her OP psych meds however) -- CXR is clear; would not call this HTN crisis or emergency (we have the luxury of watching her through the day as we say this); HTN urgency in setting of substance abuse Aim for BP 130-150 systolic for next 24 hrs; cont home meds w/ hold parameters Treat EtOH intoxication /withdrawal Daily bmp Cont routine OP meds>> I did adjust sbp hold parameters to clonidine, to spironolactone Present on Admission?: Yes History of Present Illness Reason for Consultation: HTN crisis Requesting Physician: Dr Barone Attending Physician: Kathy Murrell MD History of Present Illness 33 y/o F whom I'm asked to see for hypertensive crisis after she was admitted to evaluate possible seizures prior to admission, labile/ often uncontrolled bp. Has been hospitalized at [facility] at least 3 times including recently for HTN urgency. PMH includes premature HTN, chronic back pain, active tobacco abuse, past benzo/opiate abuse, mood disorder, past PE sp/ anticoaguation. presented this am w/ hx at home of shaking limbs, recurrent syncope; had RODRÍGUEZ w/ N/ emesis. her sbp on presentation ranged 170-200. she had both EtOH and ecstasy on her tox screen (possible that ecstasy screen affected by psych meds). Has seen Dr Thomas in CKD clinic earlier this year for HTN evaluation. Admission labs + for EtOH and ecstasy. CT head and MRI head both negative. She's getting NS w/ 20 mEq /L K at 50 ml/hr. As OP takes spironolactone, irb esartan, clonidine. Her home meds have been continued today. In ER she had labetalol iv and clonidine. no OP naproxen x 1 mo pe rpt. Allergies Allergy/AdvReac Type Severity Reaction Status Date / Time nut - unspecified Allergy Severe Anaphylaxis Verified 12/01/18 04:42 Penicillins Allergy Severe CAN'T Verified 12/01/18 04:42 BREATH tree nut Allergy Severe Anaphylaxis Verified 12/01/18 04:42 morphine Allergy Intermediate hives Verified 12/01/18 04:42 mushroom Allergy Intermediate HIVES Verified 12/01/18 04:42 Home Medications Home Medications Medication Instructions Recorded Confirmed Type aripiprazole 10 mg PO QPM 05/13/18 12/01/18 History benztropine 0.5 mg PO HS 05/13/18 12/01/18 History epinephrine [EpiPen] 0.3 mg IM Q3H PRN 05/13/18 12/01/18 History lamotrigine 75 mg PO QAM 05/13/18 12/01/18 History ondansetron HCl [Zofran] 4 mg PO TID PRN 05/13/18 12/01/18 History irbesartan 150 mg PO DAILY 11/07/18 12/01/18 History bupropion HCl 100 mg PO DAILY 12/01/18 12/01/18 History clonidine HCl 0.1 mg PO TID 12/01/18 12/01/18 History cyclobenzaprine 10 mg PO TID PRN 12/01/18 12/01/18 History lisdexamfetamine [Vyvanse] 30 mg PO DAILY PRN 12/01/18 12/01/18 History naproxen 500 mg PO BID PRN 12/01/18 12/01/18 History spironolactone 50 mg PO DAILY 12/01/18 12/01/18 History Patient History Medical History Hypertension (Chronic 07/15/12) Anxiety state, unspecified (Chronic 06/16/11) Alcohol abuse, unspecified (Resolved 07/15/12) Bipolar disorder (Chronic) Overdose of antipsychotic (Resolved) Pyelonephritis (Resolved) Suicidal ideation (Resolved) Cellulitis (Resolved) Acute appendicitis (Resolved 12/25/12) Acute cholecystitis (Resolved) Surgical History History of appendectomy (Resolved 12/25/12) Cholecystostomy care History of dental surgery Tubal ligation status Social History Preferred Language: Tanzanian Communication Ability: Effective 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 Beliefs That Will Affect Care: None marital status: Single Current Living Situation: Significant Other current occupational status: unemployed current occupation: Prior employment at [employer] Other Information That Helps Us Care for You: No Feels Safe at Home: Yes Safety Concerns: Feels Safe At This Time Smoking Status: Current every day smoker Tobacco Type: cigarettes Cigarettes Per Day: 20 Do You Dip or Chew Tobacco: No Second Hand Exposure: No Tobacco Cessation Education Requested by Patient: No Hx Alcohol Use: Yes Alcohol type: beer Hx Substance Use: Yes Last Used Substance: Unknown Last Used Substance Other:: patient states clean X 5 years Review of Systems Review of Systems: All systems reviewed & are unremarkable except as noted in HPI & below Constitutional: + fatigue and + weakness Respiratory: initially says no sob then says has sob w/ elevated bp Gastrointestinal: + vomiting (this am) Genitourinary: + dysuria; no hematuria and no flank pain Physical Exam Constitutional: well developed, well nourished and + overweight; no acute distress ambulatory w/o asst Eyes: EOM intact bilaterally ENMT: Ears: no external ear abnormality Nose: no external nose abnormality Mouth: + dry oral mucous membranes Neck: no nuchal rigidity Respiratory: normal respiratory effort Auscultation: lungs clear to auscultation bilaterally and + diminished lung sounds Cardiovascular: RRR, no murmur, no edema Gastrointestinal (Abdomen): Inspection/Auscultation: normal bowel sounds Percussion/Palpation: abdomen soft; abdomen nontender Musculoskeletal: no cyanosis or clubbing, extremities motor strength 5/5 Extremities: strength 5/5 throughout Skin: no rashes, warm and dry Neurologic: hou, fluent speech, no tremor Psychiatric: A+Ox3, euthymic affect Results & Data Vital Signs (Past 12 Hours) Vital Signs Temp Pulse Resp BP Pulse Ox 12/01/18 15:47 36.8 C 79 114/72 97 12/01/18 15:35 37.1 C 83 22 102/66 96 12/01/18 14:30 81 119/82 12/01/18 11:06 36.6 C 79 20 123/84 99 12/01/18 09:12 36.7 C 85 18 143/92 H 95 12/01/18 08:40 116/94 12/01/18 08:04 91 H 18 162/110 H 97 12/01/18 06:33 97 H 16 177/111 H 97 12/01/18 06:02 104 H 20 193/134 H 97 12/01/18 05:30 160 H 20 166/128 H 97 12/01/18 05:01 98 H 20 162/116 H 96 Laboratory Results Abnormal lab results 04/12/01/18 12/01/18 Range/Units 02:46 02:46 03:02 RDW Coeff of Carmen 14.8 H (11.5-14.5) % [place] # (Auto) 0.75 H (0.11-0.59) K/uL Potassium 3.1 L (3.5-5.1) mmol/L Chloride 108 H (98-107) mmol/L BUN 6 L (7-18) mg/dl BUN/Creatinine Ratio 9.7 L (10-20) Calcium 8.4 L (8.5-10.1) mg/dl AST 10 L (15-37) U/L Globulin 4.2 H (2.5-4.0) gm/dl Urine Blood (Negative) U Epithel Cells (Auto) (0-5) /lpf MDMA (Ecstasy) Screen (Neg) Ethyl Alcohol mg/dL 142.0 H (0-3) mg/dl 12/01/18 12/01/18 12/01/18 Range/Units 08:20 08:20 13:46 RDW Coeff of Carmen (11.5-14.5) % [place] # (Auto) (0.11-0.59) K/uL Potassium (3.5-5.1) mmol/L Chloride 108 H (98-107) mmol/L BUN (7-18) mg/dl BUN/Creatinine Ratio (10-20) Calcium 8.2 L (8.5-10.1) mg/dl AST (15-37) U/L Globulin (2.5-4.0) gm/dl Urine Blood 1+ H (Negative) U Epithel Cells (Auto) 20-30 H (0-5) /lpf MDMA (Ecstasy) Screen Pos H (Neg) Ethyl Alcohol mg/dL (0-3) mg/dl Diagnostic Findings as per HPI
[2018-12-01] MEDS: PROCHLORPERAZINE 5 MG in SYRINGE 4 ML IV PRN (17:56)
[2018-12-01 18:30] LABS: Pregnancy Test, Urine Negative (Negative)
[2018-12-01] MEDS: cloNIDine HCl 0.1 MG TAB PO SCH (20:40)
[2018-12-01] MEDS ORDERED: BENZTROPINE MESYLATE 0.5 MG TAB PO SCH (21:00)
[2018-12-01] MEDS ORDERED: ARIPiprazole 10 MG TAB PO SCH (21:00)
[2018-12-02 00:11] LABS: Amphetamines+Metham, Urine Neg (Neg); Barbiturates, Urine Neg (Neg); Benzodiazepine, Urine Neg (Neg); Cocaine, Urine Neg (Neg); MDMA (Ecstacy), Urine Pos (Neg); Methadone, Urine Neg (Neg); Opiate, Urine Neg (Neg); Phencyclidine, Urine Neg (Neg)
[2018-12-02] MEDS: PROCHLORPERAZINE 5 MG in SYRINGE 4 ML IV PRN (02:20)
[2018-12-02 06:32] LABS: Calcium 8.8 mg/dl (8.5-10.1); Creatinine Clr Calc Pharmacy 128.5 ml/min; Est GFR (African American) 127.2; Est GFR (Non-African American) 109.7
[2018-12-02 07:04] LABS: Basophils # (auto) 0.04 K/uL (0-0.2); Basophils % (auto) 0.5 %; Eosinophils # (auto) 0.42 K/uL (0-0.5); Eosinophils % (auto) 5.2 %; Hematocrit (blood only) 38.1 % (37-47); Hemoglobin 12.4 g/dL (12.0-16.0); Immature Granulocytes # (auto) 0.01 K/uL (0.00-0.02); Immature Granulocytes % (auto) 0.1 %; Lymphocytes # (auto) 2.77 K/uL (1.2-3.4); Lymphocytes % (auto) 34.2 %; Mean Corpuscular Hgb Conc 32.5 g/dL (32-36); Mean Corpuscular Volume 89.6 fL (80-100); Mean Platelet Volume 9.3 fL (7.4-10.4); Monocytes # (auto) 0.94 K/uL (0.11-0.59); Monocytes % (auto) 11.6 %; Neutrophils # (auto) 3.91 K/uL (1.4-6.5); Neutrophils % (auto) 48.4 %; Platelet Count 252 K/uL (130-400); RDW Coefficient of Variation 15.4 % (11.5-14.5); RDW Standard Deviation 50.6 fL (36.4-46.3); Red Blood Count 4.25 M/uL (4.2-5.4); White Blood Count 8.09 K/uL (4.8-10.8)
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
[2018-12-02] MEDS: ACETAMINOPHEN 325 MG TAB PO PRN (07:17)
[2018-12-02] MEDS: cloNIDine HCl 0.1 MG TAB PO SCH ×2 (08:52→15:22)
[2018-12-02] MEDS: lamoTRIgine 25 MG TAB PO SCH (08:54)
[2018-12-02] MEDS: ENOXAPARIN INJ 40 MG/0.4 ML SYR SQ SCH (08:54)
[2018-12-02] MEDS: NICOTINE 14 MG/24 HR PATCH TD SCH (08:55)
[2018-12-02] MEDS: BuPROPion SR 100 MG TABCR PO SCH (08:55)
[2018-12-02] MEDS: OXYCODONE HCL IR 5 MG TAB (IMMEDIATE RELEASE) PO PRN (09:00)
[2018-12-02] MEDS ORDERED: SPIRONOLACTONE 25 MG TAB PO SCH (09:00)
[2018-12-02] MEDS ORDERED: IRBESARTAN 150 MG TAB PO SCH (09:00)
--- NOTE | 2018-12-02 11:22 | Hospitalist Progress Note ---
Date of Service December 02, 2018 Assessment & Plan (1) Hypertensive crisis: Improved BP after initial intervention at the ER Suboptimal BP control at home Urine tox screen is positive for ecstasy but the patient is strongly denied use of any ecstasy Urine also showed positive for marijuana and the patient admits that she smokes marijuana Advised to quit marijuana and/or ecstasy Appreciate nephrology input and recommendation Blood pressure is controlled now in the hospital We will resume her usual outpatient medications Recurrent syncope Seizure DSO versus pseudoseizure Appreciate neurology input and recommendation EEG has been negative for any seizure activity Hypokalemia secondary to emesis, diuretic Rx mood disorder, at baseline as per patient hx PE status post anti-coagulation ongoing tobacco abuse DVT prophylaxis. Lovenox subcu Full code Discharge this afternoon (2) Tubal ligation status: Subjective 12/02 The patient was seen and examined in medical telemetry unit She was also seen by me yesterday She complains of some headache but no other significant symptoms She has been ambulating without difficulty and wants to go home No more seizures noted Review of Systems Review of Systems: Other (All systems reviewed and are unremarkable except as noted below) Constitutional: + fatigue and + insomnia Neurologic: no tremor(s), no abnormal movements and no seizure-like activity Physical Exam Physical Exam: No apparent distress at rest Constitutional: WD/WN, vitals as above well developed Eyes: PERRL, conjunctivae normal, anicteric sclerae ENMT: external ear and nose normal, oropharynx normal Neck: trachea midline, no thyromegaly Respiratory: normal respiratory effort Auscultation: lungs clear to aus cultation bilaterally Cardiovascular: Rate/Rhythm: regular rate and regular rhythm Heart Sounds: normal S1 and normal S2 Gastrointestinal (Abdomen): Inspection/Auscultation: abdomen normal to inspection and normal bowel sounds Percussion/Palpation: abdomen soft; abdomen nontender Neurologic: PERRL, EOMI, accommodation nl, no face palsy, no dysarthria Results & Data Vital Signs (Past 12 Hours) Vital Signs Temp Pulse Pulse Resp BP BP Pulse Ox 12/02/18 07:33 66 12/02/18 07:18 36.7 C 69 16 130/84 97 12/02/18 04:34 36.7 C 66 20 130/80 97 12/01/18 23:34 36.8 C 71 16 129/84 97 Laboratory Results Short CBC 12/02/18 Range/Units 05:41 WBC 8.09 (4.8-10.8) K/uL Hgb 12.4 (12.0-16.0) g/dL Hct 38.1 (37-47) % Plt Count 252 (130-400) K/uL BMP 12/01/18 12/02/18 13:46 05:41 Sodium 138 140 Potassium 3.8 D 4.0 Chloride 108 H 110 H Carbon Dioxide 27 28 BUN 9 12 Creatinine 0.88 0.73 Glucose 93 88 Calcium 8.2 L 8.8 Medications Administered Current Inpatient Medications Acetaminophen (Tylenol) 650 mg PO Q4H PRN PRN Reason: Pain or Fever Stop: 12/31/18 09:25 Last Admin: 12/02/18 07:17 Dose: 650 mg Documented by: Aripiprazole (Abilify) 10 mg PO QPM [facility] Stop: 12/31/18 20:59 Last Admin: 12/01/18 20:41 Dose: 10 mg Documented by: Benztropine Mesylate (Cogentin) 0.5 mg PO HS [facility] Stop: 12/31/18 20:59 Last Admin: 12/01/18 20:42 Dose: 0.5 mg Documented by: Bupropion HCl (Wellbutrin-Sr) 100 mg PO DAILY [facility] Stop: 12/31/18 09:44 Last Admin: 12/02/18 08:55 Dose: 100 mg Documented by: Clonidine HCl (Catapres) 0.1 mg PO TID [facility] Stop: 12/31/18 20:59 Last Admin: 12/02/18 08:52 Dose: Not Given Documented by: Cyclobenzaprine HCl (Flexeril) 10 mg PO TID PRN PRN Reason: Muscle Spasm Stop: 12/31/18 09:25 Enoxaparin Sodium (Lovenox) 40 mg SQ QAM [facility] Stop: 12/31/18 10:59 Last Admin: 12/02/18 08:54 Dose: Not Given Documented by: Gadobutrol (Gadavist 65ml) 9.5 ml IV ONCE PRN PRN Reason: Interaction Checking Stop: 12/05/18 13:29 Last Admin: 12/01/18 13:31 Dose: 9.5 ml Documented by: Hydroxyzine HCl (Vistaril) 10 mg PO Q6H PRN PRN Reason: Anxiety Stop: 12/31/18 09:25 Prochlorperazine 5 mg/ Syringe 5 mls @ 5 mls/min IV Q6H PRN PRN Reason: Nausea And Vomiting Stop: 12/31/18 09:25 Last Admin: 12/02/18 02:20 Dose: 5 mls/min Documented by: Irbesartan (Avapro) 150 mg PO DAILY [facility] Stop: 01/01/19 08:59 Last Admin: 12/02/18 08:53 Dose: 150 mg Documented by: Lamotrigine (Lamictal) 75 mg PO QAM [facility] Stop: 12/31/18 09:25 Last Admin: 12/02/18 08:54 Dose: 75 mg Documented by: Miscellaneous (Remove Nicoderm Patch) 1 ea N/A HS [facility] Stop: 12/31/18 20:59 Last Admin: 12/01/18 20:43 Dose: 1 ea Documented by: Nicotine (Nicoderm Cq) [address] [facility] Stop: 12/31/18 07:49 Last Admin: 12/02/18 08:55 Dose: 14 mg Documented by: Nitroglycerin (Nitrostat) 0.4 mg SL UD PRN PRN Reason: Chest Pain Stop: 12/31/18 09:25 Oxycodone HCl (Roxicodone Immediate Rel) 5 mg PO Q8H PRN PRN Reason: Pain Stop: 12/15/18 09:25 Last Admin: 12/02/18 09:00 Dose: 5 mg Documented by: Spironolactone (Aldactone) 50 mg PO DAILY [facility] Stop: 01/01/19 08:59 Last Admin: 12/02/18 08:53 Dose: 50 mg Documented by:
--- NOTE | 2018-12-03 08:28 | Discharge Summary ---
Date of Service December 03, 2018 Admission HPI Per Admitting Provider History obtained from patient, family, and records. Medical history significant for hypertension, mood disorder, PE status post anti-coagulation, chronic back pain, past history benzodiazepine/opioid abuse as per records, ongoing tobacco abuse. Recent confinement at [facility] 2 weeks ago for malignant hypertension. Patient's blood pressure this week still suboptimal. SBP 130-200s. Patient claims to be compliant with regimen. Denies dietary indiscretion, NSAID intake, unusual stress. Yesterday patient had multiple "seizure" episodes. Shaking, sometimes passing out, sometimes not. She has had these episodes for some time now for which her [employer] works. No previous EEGs, Neurology evaluation. Patient noted worsening generalized headache followed by nausea and emesis. Denies chest pain, abdominal pain complaints. Patient admits to drinking alcohol but denies habitual use/abuse. Upon arrival at the ER, SBP noted to be 170-200s. Admission Exam Per Admitting Provider Vital Signs (Past 24 Hours): Last Vital Signs Temp 36.7 C 12/01/18 02:26 Pulse 97 H 12/01/18 06:33 Resp 16 12/01/18 06:33 BP 177/111 H 12/01/18 06:33 Pulse Ox 97 12/01/18 06:33 Physical Exam: GENERAL: uncomfortable, obese, no respiratory distress, looks older than stated age SKIN: Normal color, warm HEENT: [place] palpebral conjunctivae, no ptosis, dry buccal mucosa NECK : Supple, short neck, no tenderness CHEST : CTA, no tenderness HEART : RRR, no obvious murmurs ABDOMEN: Some distention, nontender EXTREMITIES : Minimal LE swelling, no LE tenderness, no other conspicuous d eformities noted NEUROLOGIC : Coherent, no facial asymmetry, no other gross focality Principal Diagnosis Hypertensive urgency, seizures ruled out Discharge Exam Constitutional WD/WN, vitals as above well developed Eyes PERRL, conjunctivae normal, anicteric sclerae ENMT external ear and nose normal, oropharynx normal Neck trachea midline, no thyromegaly Respiratory normal respiratory effort Auscultation: lungs clear to auscultation bilaterally Cardiovascular Rate/Rhythm: regular rate and regular rhythm Heart Sounds: normal S1 and normal S2 Gastrointestinal (Abdomen) Inspection/Auscultation: abdomen normal to inspection and normal bowel sounds Percussion/Palpation: abdomen soft; abdomen nontender Neurologic PERRL, EOMI, accommodation nl, no face palsy, no dysarthria Discharge Data Allergies Allergy/AdvReac Type Severity Reaction Status Date / Time nut - unspecified Allergy Severe Anaphylaxis Verified 12/01/18 04:42 Penicillins Allergy Severe CAN'T Verified 12/01/18 04:42 BREATH tree nut Allergy Severe Anaphylaxis Verified 12/01/18 04:42 morphine Allergy Intermediate hives Verified 12/01/18 04:42 mushroom Allergy Intermediate HIVES Verified 12/01/18 04:42 Consultations 12/01/18 06:06 ED Decision to Admit Stat 12/01/18 09:26 Consult Nephrology Routine Consult Neurology Routine Ordered Studies 12/01/18 07:03 CT head/brain wo con Stat 12/01/18 09:26 MR brain seizure wo/w con Routine Hospital Course (1) Hypertensive crisis: Improved BP after initial intervention at the ER Suboptimal BP control at home Urine tox screen is positive for ecstasy but the patient is strongly denied use of any ecstasy Urine also showed positive for marijuana and the patient admits that she smokes marijuana Advised to quit marijuana and/or ecstasy Appreciate nephrology input and recommendation Blood pressure is controlled now in the hospital We will resume her usual outpatient medications Recurrent syncope Seizure DSO versus pseudoseizure Appreciate neurology input and recommendation EEG has been negative for any seizure activity Hypokalemia secondary to emesis, diuretic Rx mood disorder, at baseline as per patient hx PE status post anti-coagulation ongoing tobacco abuse DVT prophylaxis. Lovenox subcu Full code Discharge this afternoon (2) Tubal ligation status: Total Time Total Time Spent Total Time Spent (In Minutes): 35 minutes Total Time Includes: Examination of the Patient, Discharge Planning, Medication Reconciliation and Communication With Other Providers Discharge Plan Discharge Items Patient Disposition: Home - Self-Care Reason For Visit: HTN URGENCY, SYNCOPE Discharge Diagnosis: Hypertensive urgency, seizures ruled out Condition: Good Discharge Goals: Decrease discomfort and Improve function Activity: Resume your previous activity Non-emergency contact: Primary Care Provider Call non-emergency contact if: you have any medication questions and your symptoms worsen Follow-up/Referrals: Angelic Pereira DO [Primary Care Provider] - 12/08/18 10:05 am (The appointment is going to be with Dr. Tian . Dr. Pena does not have any slot) Diet: Heart Healthy and Low Sodium (2gm) Addtl Provider Instructions: Please take your medications regularly. Prescriptions: New nicotine [Nicoderm CQ] 14 mg/24 hr Patch 24 Hour 14 mg transdermal QAM 30 Days Qty: 30 RF: 0 Continued cyclobenzaprine 10 mg Tablet 10 mg PO TID PRN (Reason: Muscle Spasm) RF: 0 clonidine HCl 0.1 mg Tablet 0.1 mg PO TID RF: 0 bupropion HCl 100 mg tablet sustained-release 12 hr 100 mg PO DAILY RF: 0 naproxen 500 mg Tablet 500 mg PO BID PRN (Reason: Pain) RF: 0 spironolactone 50 mg Tablet 50 mg PO DAILY RF: 0 Vyvanse 30 mg capsule 30 mg PO DAILY PRN (Reason: adhd) RF: 0 benztropine 0.5 mg Tablet 0.5 mg PO HS RF: 0 ondansetron HCl [Zofran] 4 mg Tablet 4 mg PO TID PRN (Reason: Nausea) RF: 0 lamotrigine 25 mg Tablet 75 mg PO QAM RF: 0 epinephrine [EpiPen] 0.3 mg/0.3 mL Auto-Injector 0.3 mg IM Q3H PRN (Reason: Allergic Reaction) RF: 0 aripiprazole 10 mg Tablet 10 mg PO QPM RF: 0 irbesartan 150 mg tablet 150 mg PO DAILY RF: 0 Stand-Alone Forms: [facility] Discharge Orders: Discharge Order (Routine); Ordered 12/02/18 Ordered By: Kathy Murrell Admission Data Admit Date/Time: 12/01/18 07:56 Attending Provider: Kathy Murrell Admit Provider: Juan Pablo Quiroz Primary Care Provider: Angelic Pereira Other Providers: Juan Pablo Quiroz ; Charlene Tsang ; Ramana Thomas ; Jared Banerjee I ; Brooke Johnson ; Linda Valdez ; Rob Alvarado ; Thalia Cook ; Manjit Oliveros ; Thalia Fofana ; Alton Browning ; Bj Valiente Service: Telemetry Medical Other Interventions: Discharge Summary Assessment (RN) Last Done: 12/02/18 15:34 DC Date/Time DO NOT enter until pt leaves facility: 12/02/18 16:08
== END 2018-12-02 16:08 | disposition home or self-care (01) ==
LOC: 2N 02:25 → ED 02:25 → 2N 09:29

== ENCOUNTER 2019-03-21 02:29 | Inpatient (IN) ==
[2019-03-21] MEDS ORDERED: HYDROmorphone INJ 1 MG/ML SYRINGE IV STA (03:00)
[2019-03-21] MEDS ORDERED: SODIUM CHLORIDE 0.9% 1000ML 1,000 ML IV SCH (03:00)
[2019-03-21 03:08] LABS: Basophils # (auto) 0.04 K/uL (0-0.2); Basophils % (auto) 0.4 %; Eosinophils # (auto) 0.39 K/uL (0-0.5); Eosinophils % (auto) 3.4 %; Hematocrit (blood only) 45.6 % (37-47); Hemoglobin 15.6 g/dL (12.0-16.0); Immature Granulocytes # (auto) 0.04 K/uL (0.00-0.02); Immature Granulocytes % (auto) 0.4 %; Lymphocytes # (auto) 3.21 K/uL (1.2-3.4); Lymphocytes % (auto) 28.2 %; Mean Corpuscular Hgb Conc 34.2 g/dL (32-36); Mean Platelet Volume 9.9 fL (7.4-10.4); Monocytes # (auto) 0.81 K/uL (0.11-0.59); Monocytes % (auto) 7.1 %; Neutrophils % (auto) 60.5 %; Platelet Count 333 K/uL (130-400); RDW Standard Deviation 45.2 fL (36.4-46.3); Red Blood Count 5.18 M/uL (4.2-5.4); White Blood Count 11.39 K/uL (4.8-10.8)
[2019-03-21 03:17] LABS: Appearance Urine Clear (Clear); Bilirubin Urine Negative (Negative); Blood Urine Negative (Negative); Color Urine Yellow; Glucose Urine UA Negative (Negative); Ketones Urine Negative (Negative); Leukocyte Esterase Urine Negative (Negative); Nitrite Urine Negative (Negative); Protein Urine Negative (Negative); Specific Gravity Urine 1.008 (1.000-1.030); Urobilinogen Urine Negative (Negative); pH Urine 7.5 (4.5-7.5)
[2019-03-21 03:17] LABS: Alanine Aminotransferase 34 U/L (12-78); Albumin Level 4.3 gm/dl (3.4-5.0); Aspartate Aminotransferase 25 U/L (15-37); BUN Creatinine Ratio 6.6 (10-20); Blood Urea Nitrogen 5 mg/dl (7-18); Calcium 9.3 mg/dl (8.5-10.1); Carbon Dioxide 28 mmol/L (21-32); Chloride 103 mmol/L (98-107); Creatinine Clr Calc Pharmacy 133.3 ml/min; Est GFR (African American) 127.2; Est GFR (Non-African American) 109.7; Glucose 80 mg/dl (70-99); Magnesium 2.2 mg/dl (1.8-2.4); Sodium 138 mmol/L (136-145)
[2019-03-21] MEDS ORDERED: ONDANSETRON INJ 2 MG/ML 2 ML VIAL IV STA (03:23)
--- NOTE | 2019-03-21 03:26 | Emergency Department Note ---
History of Present Illness General Chief complaint: Chest Pain Stated complaint: chest pressure Time Seen by Provider: 03/21/19 02:41 History of Present Illness Maximum Pain Intensity: 10 This is a 33-year-old female that presents to the emergency department via ambulance accompanied by male with complaints of "chest pressure". The patient states that around 10 PM she began with sensation that her blood pressure was starting to elevate and felt as though she was going "cross eyed". She feels as if someone is sitting on her chest with pain radiating down the left arm. She has associated dizziness and some minimal nausea. Prehospital she was given nitroglycerin, aspirin and Zofran. She notes that she has a history of admission to the hospital for evaluation of elevated blood pressure in the past. She denies any fevers, chills, recent illness. She has a history of PE follow ing a without any current anticoagulation use. She notes that she is taking a 3 medication regimen for her blood pressure and has been compliant. She denies any drug use. Home Medications Home Medications Medication Instructions Recorded Confirmed Type aripiprazole 10 mg PO QPM 05/13/18 03/21/19 History epinephrine [EpiPen] 0.3 mg IM Q3H PRN 05/13/18 03/21/19 History lamotrigine 75 mg PO QAM 05/13/18 03/21/19 History irbesartan 150 mg PO DAILY 11/07/18 03/21/19 History Vyvanse 30 mg PO DAILY 12/01/18 03/21/19 History bupropion HCl 100 mg PO DAILY 12/01/18 03/21/19 History clonidine HCl 0.1 mg PO TID 12/01/18 03/21/19 History spironolactone 50 mg PO DAILY 12/01/18 03/21/19 History clonazepam 1 mg PO BID 03/21/19 03/21/19 History prazosin [Minipress] 3 mg PO HS 03/21/19 03/21/19 History Allergies Allergy/AdvReac Type Severity Reaction Status Date / Time nut - unspecified Allergy Severe Anaphylaxis Verified 03/21/19 02:58 Penicillins Allergy Severe CAN'T Verified 03/21/19 02:58 BREATH tree nut Allergy Severe Anaphylaxis Verified 03/21/19 02:58 morphine Allergy Intermediate hives Verified 03/21/19 02:58 mushroom Allergy Intermediate HIVES Verified 03/21/19 02:58 Past Med/Surg History Social History Preferred Language: Gambian Communication Ability: Effective Insurance Examining Clerk Required: No Beliefs That Will Affect Care: None marital status: Single Current Living Situation: Significant Other current occupational status: unemployed current occupation: Prior employment at [employer] Feels Safe at Home: Yes Smoking Status: Current every day smoker Tobacco Type: cigarettes ; Cigarettes Per Day: 20 ; Second Hand Exposure: No ; Hx Alcohol Use: Yes Alcohol type: beer Hx Substance Use: Yes Last Used Substance: Unknown Review of Systems A total of 10 systems reviewed and were otherwise negative Physical Exam Vital Signs Vital Signs - 24 hr 03/21/19 02:30 03/21/19 03:29 03/21/19 04:49 Temperature 36.8 C Temperature Source Oral Sepsis Recent Fever Within 48 Hours No Sepsis New/Unexplained Change in Mental Status No Sepsis Action Taken by Nursing No Action Required Pulse Rate 104 H Pulse Rate [Apical] 97 H 106 H Respiratory Rate 18 17 22 Blood Pressure 157/114 H Blood Pressure [Left Arm] 159/114 H 146/116 H Blood Pressure Mean 128 Blood Pressure Mean [Left Arm] 129 126 Pulse Oximetry 100 97 100 Oxygen Delivery Method Room Air Room Air Room Air 03/21/19 05:00 03/21/19 05:23 03/21/19 05:37 Temperature Temperature Source Sepsis Recent Fever Within 48 Hours Sepsis New/Unexplained Change in Mental Status Sepsis Action Taken by Nursing Pulse Rate Pulse Rate [Apical] 109 H 108 H 91 H Respiratory Rate 19 13 Blood Pressure Blood Pressure [Left Arm] 155/114 H 165/110 H Blood Pressure Mean Blood Pressure Mean [Left Arm] 127 128 Pulse Oximetry 99 99 97 Oxygen Delivery Method Room Air 03/21/19 05:58 03/21/19 06:30 Temperature Temperature Source Sepsis Recent Fever Within 48 Hours Sepsis New/Unexplained Change in Mental Status Sepsis Action Taken by Nursing Pulse Rate Pulse Rate [Apical] 92 H 93 H Respiratory Rate 14 20 Blood Pressure Blood Pressure [Left Arm] 160/114 H 158/117 H Blood Pressure Mean Blood Pressure Mean [Left Arm] 129 130 Pulse Oximetry 95 97 Oxygen Delivery Method Room Air Room Air VITAL SIGNS - Vital signs and nursing notes were reviewed. Hypertensive and afebrile. GENERAL -33-year-old female appearing her stated age who is in no acute distress. Communicates well with provider and answers questions appropriately. SKIN - Without rashes. No meningeal or petechial rash. HEAD - NC/AT. EYES - PERRL with EOMI bilaterally. Sclera anicteric. EARS - No deformities of external structures noted on gross examination bilatera lly. No pain elicited with palpation of the tragus bilaterally. NOSE - Midline and without cyanosis. No epistaxis or purulent drainage noted. Septum midline without deviation or septal hematoma noted. MOUTH/OROPHARYNX - Without perioral cyanosis. Buccal mucosa pink and moist and without leukoplakia. Tongue midline with equal elevation of palate bilaterally. No tonsillar hypertrophy, erythema, or exudates noted. Good dentition noted. NECK - Neck with FROM. Supple to palpation. No lymphadenopathy noted. No nuchal rigidity. LUNGS - Chest wall symmetric without accessory muscle use, intercostals retractions, or central cyanosis. Normal vesicular breath sounds CTA B/L. No wheezes, rales, or rhonchi appreciated. CARDIAC - RRR with S1/S2. No murmur, rubs, or gallops appreciated. ABDOMEN - Abdominal contour normal without pulsations or visible masses. BS normoactive all four quadrants. No tenderness, palpable masses, hepatosplenomegaly, or ascites noted. EXTREMITIES - No clubbing or peripheral cyanosis. No pretibial edema present. +5/5 strength noted in UE/LE bilaterally. NEUROLOGIC - Cranial nerves II through XII grossly intact. Sensory intact to light touch throughout. PSYCH - A&Ox3 and cooperates fully with examiner. Pt is very pleasant and interacts well with examiner. Course Administered Medications Discontinued Medications Amlodipine Besylate (Norvasc) 5 mg PO NOW STA Stop: 03/21/19 04:15 Last Admin: 03/21/19 04:50 Dose: 5 mg Documented by: [id number] Hydromorphone HCl (Dilaudid) 1 mg IV NOW STA Stop: 03/21/19 03:01 Last Admin: 03/21/19 03:06 Dose: 1 mg Documented by: [id number] Hydromorphone HCl (Dilaudid) 0.5 mg IV NOW STA Stop: 03/21/19 05:26 Last Admin: 03/21/19 05:36 Dose: 0.5 mg Documented by: [id number] Sodium Chloride (Nss 1000ml) 1,000 mls @ 999 mls/hr IV .Q1H1M VANIA Stop: 03/21/19 04:00 Last Infusion: 03/21/19 04:10 Dose: 0 mls/hr Documented by: [id number] Admin: 03/21/19 03:06 Dose: 999 mls/hr Documented by: [id number] Labetalol HCl (Normodyne) 5 mg IV NOW STA Stop: 03/21/19 05:25 Last Admin: 03/21/19 05:27 Dose: 5 mg Documented by: [id number] Cosigned by: [id number] Labetalol HCl (Normodyne) 10 mg IV NOW STA Stop: 03/21/19 05:56 Last Admin: 03/21/19 06:02 Dose: 10 mg Documented by: [id number] Cosigned by: [id number] Ondansetron HCl (Zofran) 4 mg IV NOW STA Stop: 03/21/19 03:24 Last Admin: 03/21/19 03:26 Dose: 4 mg Documented by: [id number] Potassium Chloride (Klor-Con M10) 50 meq PO NOW STA Stop: 03/21/19 06:20 Last Admin: 03/21/19 06:32 Dose: 50 meq Documented by: [id number] Medical Decision Making Laboratory Data Result diagrams: 03/21/19 02:15 03/21/19 02:15 Lab Results 03/21/19 03/21/19 03/21/19 Range/Units 02:15 02:15 02:15 WBC 11.39 H (4.8-10.8) K/uL RBC 5.18 (4.2-5.4) M/uL Hgb 15.6 (12.0-16.0) g/dL Hct 45.6 (37-47) % MCV 88.0 (80-100) fL MCH 30.1 (25-34) pg MCHC 34.2 (32-36) g/dL RDW Std Deviation 45.2 (36.4-46.3) fL RDW Coeff of Carmen 14.0 (11.5-14.5) % Plt Count 333 (130-400) K/uL MPV 9.9 (7.4-10.4) fL Immature Gran % (Auto) 0.4 % Neut % (Auto) 60.5 % Lymph % (Auto) 28.2 % [place] % (Auto) 7.1 % Eos % (Auto) 3.4 % Baso % (Auto) 0.4 % Immature Gran # (Auto) 0.04 H (0.00-0.02) K/uL Neut # (Auto) 6.90 H (1.4-6.5) K/uL Lymph # (Auto) 3.21 (1.2-3.4) K/uL [place] # (Auto) 0.81 H (0.11-0.59) K/uL Eos # (Auto) 0.39 (0-0.5) K/uL Baso # (Auto) 0.04 (0-0.2) K/uL PT Cancelled INR Cancelled APTT Cancelled PTT Ratio Cancelled D-Dimer Cancelled Sodium 138 (136-145) mmol/L Potassium 3.0 L (3.5-5.1) mmol/L Chloride 103 (98-107) mmol/L Carbon Dioxide 28 (21-32) mmol/L Anion Gap 7.0 (3-11) BUN 5 L (7-18) mg/dl Creatinine 0.73 (0.6-1.2) mg/dl Est Cr Clr Drug Dosing 133.3 ml/min Est GFR ( Amer) 127.2 Est GFR (Non-Af Amer) 109.7 BUN/Creatinine Ratio 6.6 L (10-20) Glucose 80 (70-99) mg/dl Calcium 9.3 (8.5-10.1) mg/dl Magnesium 2.2 (1.8-2.4) mg/dl Total Bilirubin 0.5 (0.2-1) mg/dl AST 25 (15-37) U/L ALT 34 (12-78) U/L Alkaline Phosphatase 104 (45-117) U/L Troponin I < 0.015 (0-0.045) ng/ml Total Protein 8.7 H (6.4-8.2) gm/dl Albumin 4.3 (3.4-5.0) gm/dl Globulin 4.4 H (2.5-4.0) gm/dl Albumin/Globulin Ratio 1.0 (0.9-2) Lipase 107 (73-393) U/L TSH 4.680 H (0.300-4.500) uIu/ml Free T4 1.33 (0.8-1.6) ng/dl Urine Color Urine Appearance (Clear) Urine pH (4.5-7.5) Ur Specific [employer] (1.000-1.030) Urine Protein (Negative) Urine Glucose (UA) (Negative) Urine Ketones (Negative) Urine Blood (Negative) Urine Nitrite (Negative) Urine Bilirubin (Negative) Urine Urobilinogen (Negative) Ur Leukocyte Esterase (Negative) POC Ur Test (NEG) Urine Opiates Screen (Neg) Ur Methadone, Qual (Neg) Urine Barbiturates (Neg) Ur Phencyclidine (PCP) (Neg) U Amphetamin/Meth Scrn (Neg) MDMA (Ecstasy) Screen (Neg) U Benzodiazepines Scrn (Neg) Ur Cocaine Metabolite (Neg) U Marijuana (THC) Screen (Neg) 03/21/19 03/21/19 03/21/19 Range/Units 03:09 03:09 03:09 WBC (4.8-10.8) K/uL RBC (4.2-5.4) M/uL Hgb (12.0-16.0) g/dL Hct (37-47) % MCV (80-100) fL MCH (25-34) pg MCHC (32-36) g/dL RDW Std Deviation (36.4-46.3) fL RDW Coeff of Carmen (11.5-14.5) % Plt Count (130-400) K/uL MPV (7.4-10.4) fL Immature Gran % (Auto) % Neut % (Auto) % Lymph % (Auto) % [place] % (Auto) % Eos % (Auto) % Baso % (Auto) % Immature Gran # (Auto) (0.00-0.02) K/uL Neut # (Auto) (1.4-6.5) K/uL Lymph # (Auto) (1.2-3.4) K/uL [place] # (Auto) (0.11-0.59) K/uL Eos # (Auto) (0-0.5) K/uL Baso # (Auto) (0-0.2) K/uL PT INR APTT PTT Ratio D-Dimer Sodium (136-145) mmol/L Potassium (3.5-5.1) mmol/L Chloride (98-107) mmol/L Carbon Dioxide (21-32) mmol/L Anion Gap (3-11) BUN (7-18) mg/dl Creatinine (0.6-1.2) mg/dl Est Cr Clr Drug Dosing ml/min Est GFR ( Amer) Est GFR (Non-Af Amer) BUN/Creatinine Ratio (10-20) Glucose (70-99) mg/dl Calcium (8.5-10.1) mg/dl Magnesium (1.8-2.4) mg/dl Total Bilirubin (0.2-1) mg/dl AST (15-37) U/L ALT (12-78) U/L Alkaline Phosphatase (45-117) U/L Troponin I (0-0.045) ng/ml Total Protein (6.4-8.2) gm/dl Albumin (3.4-5.0) gm/dl Globulin (2.5-4.0) gm/dl Albumin/Globulin Ratio (0.9-2) Lipase (73-393) U/L TSH (0.300-4.500) uIu/ml Free T4 (0.8-1.6) ng/dl Urine Color Yellow Urine Appearance Clear (Clear) Urine pH 7.5 (4.5-7.5) Ur Specific [employer] 1.008 (1.000-1.030) Urine Protein Negative (Negative) Urine Glucose (UA) Negative (Negative) Urine Ketones Negative (Negative) Urine Blood Negative (Negative) Urine Nitrite Negative (Negative) Urine Bilirubin Negative (Negative) Urine Urobilinogen Negative (Negative) Ur Leukocyte Esterase Negative (Negative) POC Ur Test NEG (NEG) Urine Opiates Screen Neg (Neg) Ur Methadone, Qual Neg (Neg) Urine Barbiturates Neg (Neg) Ur Phencyclidine (PCP) Neg (Neg) U Amphetamin/Meth Scrn Pos H (Neg) MDMA (Ecstasy) Screen Pos H (Neg) U Benzodiazepines Scrn Neg (Neg) Ur Cocaine Metabolite Neg (Neg) U Marijuana (THC) Screen Pos H (Neg) 03/21/19 Range/Units 03:35 WBC (4.8-10.8) K/uL RBC (4.2-5.4) M/uL Hgb (12.0-16.0) g/dL Hct (37-47) % MCV (80-100) fL MCH (25-34) pg MCHC (32-36) g/dL RDW Std Deviation (36.4-46.3) fL RDW Coeff of Carmen (11.5-14.5) % Plt Count (130-400) K/uL MPV (7.4-10.4) fL Immature Gran % (Auto) % Neut % (Auto) % Lymph % (Auto) % [place] % (Auto) % Eos % (Auto) % Baso % (Auto) % Immature Gran # (Auto) (0.00-0.02) K/uL Neut # (Auto) (1.4-6.5) K/uL Lymph # (Auto) (1.2-3.4) K/uL [place] # (Auto) (0.11-0.59) K/uL Eos # (Auto) (0-0.5) K/uL Baso # (Auto) (0-0.2) K/uL PT 10.1 INR 1.0 APTT 26.4 PTT Ratio 1.0 D-Dimer 210 Sodium (136-145) mmol/L Potassium (3.5-5.1) mmol/L Chloride (98-107) mmol/L Carbon Dioxide (21-32) mmol/L Anion Gap (3-11) BUN (7-18) mg/dl Creatinine (0.6-1.2) mg/dl Est Cr Clr Drug Dosing ml/min Est GFR ( Amer) Est GFR (Non-Af Amer) BUN/Creatinine Ratio (10-20) Glucose (70-99) mg/dl Calcium (8.5-10.1) mg/dl Magnesium (1.8-2.4) mg/dl Total Bilirubin (0.2-1) mg/dl AST (15-37) U/L ALT (12-78) U/L Alkaline Phosphatase (45-117) U/L Troponin I (0-0.045) ng/ml Total Protein (6.4-8.2) gm/dl Albumin (3.4-5.0) gm/dl Globulin (2.5-4.0) gm/dl Albumin/Globulin Ratio (0.9-2) Lipase (73-393) U/L TSH (0.300-4.500) uIu/ml Free T4 (0.8-1.6) ng/dl Urine Color Urine Appearance (Clear) Urine pH (4.5-7.5) Ur Specific [employer] (1.000-1.030) Urine Protein (Negative) Urine Glucose (UA) (Negative) Urine Ketones (Negative) Urine Blood (Negative) Urine Nitrite (Negative) Urine Bilirubin (Negative) Urine Urobilinogen (Negative) Ur Leukocyte Esterase (Negative) POC Ur Test (NEG) Urine Opiates Screen (Neg) Ur Methadone, Qual (Neg) Urine Barbiturates (Neg) Ur Phencyclidine (PCP) (Neg) U Amphetamin/Meth Scrn (Neg) MDMA (Ecstasy) Screen (Neg) U Benzodiazepines Scrn (Neg) Ur Cocaine Metabolite (Neg) U Marijuana (THC) Screen (Neg) Imaging Data My Impression: Cardiomediastinal silhouette is unremarkable. No pneumothorax, effusion or infiltrate. This is compared to most recent chest x-ray. Radiologist's Impression: CT HEAD: Negative Radiologist: Saul Hays MD Study ready at 04:56 and initial results transmitted at 05:19 MDM Narrative Patient was seen and evaluated as above in room B12. Review was performed of nursing notes and vital signs. After obtaining a thorough history and physical examination the above work up was performed. She presents to us today via ambulance with chest pressure, headache, pain in the left arm with associated history of hypertension. She is on a 3 medication regimen for hypertension at this point in the outpatient setting. Her presenting blood pressure was 157/114. Heart rate of 104. She is afebrile. She was given pain medications in the event that her elevated pressure could be secondary to the pain in the chest and her headache. She already had Tylenol before arriving here, said she cannot take NSAIDs as it raises her blood pressure, and is allergic to morphine. She was given 1 mg of IV Dilaudid she was reevaluated with only an increase in her pressure but improvement of her pain. Her blood pressure was then in the 180s systolic with 120s diastolic. She was then ordered p.o. amlodipine and a CT scan of the head was ordered. This was secondary to the patient's presentation and her also noting that she was developing what she described as some small black spots in her vision bilaterally. Minimal leukocytosis of 11.39. No anemia. No emergent metabolic ab normality. There is hypokalemia with potassium 3.0. TSH reveals slight elevation of 4.60. Free T4 within normal limits. Urinalysis is negative. Urine test is negative. Urine drug screen reveals positive for marijuana, MDMA and amphetamines. Her EKG at this time does not reveal any evidence of KS. Reveals normal sinus rhyth m, rate of 92 bpm. No evidence of KS. Patient premedication was 155/114, after the Norvasc was 165/110. Because of this increase even with the antihypertensives and allowing half an hour to pass after the p.o. medication, 5 mg of IV labetalol was ordered. Patient also notes resurgence of her headache with elevated pressure and was given Dilaudid for the pain. It appears though at this time that her pressure is not from a pain, rather her elevated pressure is causing the pain. She was reevaluated with improvement of her pain however she notes that she still feels some chest pressure and minimal vision change. I rechecked the blood pressure at bedside and it was 160/114. This prompted an order for labetalol 10 mg IV. Because of the patient's persistence of hypertensive state despite IV medication and her suspected symptomatic hypertension, stated complaints of at home 3 medication regimen for hypertension, it is felt that further evaluation and management is warranted in the inpatient setting. Case was discussed with the attending physician. GCS: 15 In the evaluation and treatment of this patient, the following differential diagnoses were considered: Migraine Headache, Intracranial Hemorrhage, Subdural Hematoma, Subarachnoid Hemorrhage, Cerebral Aneurysm, Temporal/Giant Cell Arteritis, Tension Headache, Meningitis, Encephalitis, or Hydrocephalus. Impression & Plan Hypertensive urgency Critical Care Time Critical Care Time: Yes Total Critical Care Time: 35 I have personally spent greater than 35 minutes of critical care time in the direct management of this patient. This includes bedside care, interpretation of diagnostic studies, and testing, discussion with consultants, patient, and family members, and other required patient management activities. This 35 minutes is in excess of all separately billable procedures. Discharge Plan Visit Data Chief Complaint: Chest Pain Stated Complaint: chest pressure ED Provider: Julieth Ford ED Midlevel Provider: Hari Gold Discharge Problem: Hypertensive urgency Patient Disposition: Admitted As Inpatient Condition: Good Forms Stand Alone Forms: Call Back Authorization, My [facility], Important Visit Information Prescriptions Prescriptions: No Action clonidine HCl 0.1 mg Tablet 0.1 mg PO TID RF: 0 bupropion HCl 100 mg tablet sustained-release 12 hr 100 mg PO DAILY RF: 0 spironolactone 50 mg Tablet 50 mg PO DAILY RF: 0 Vyvanse 30 mg capsule 30 mg PO DAILY RF: 0 prazosin [Minipress] 1 mg Capsule 3 mg PO HS RF: 0 clonazepam 1 mg Tablet 1 mg PO BID RF: 0 lamotrigine 25 mg Tablet 75 mg PO QAM RF: 0 epinephrine [EpiPen] 0.3 mg/0.3 mL Auto-Injector 0.3 mg IM Q3H PRN (Reason: Allergic Reaction) RF: 0 aripiprazole 10 mg Tablet 10 mg PO QPM RF: 0 irbesartan 150 mg tablet 150 mg PO DAILY RF: 0 Referrals Referrals: Angelic Pereira DO [Primary Care Provider] -
[2019-03-21 03:28] LABS: Alkaline Phosphatase 104 U/L (45-117); Bilirubin,Total 0.5 mg/dl (0.2-1); Globulin 4.4 gm/dl (2.5-4.0); Total Protein 8.7 gm/dl (6.4-8.2); Troponin I < 0.015 ng/ml (0-0.045)
[2019-03-21 03:41] LABS: T4 Free Thyroxine 1.33 ng/dl (0.8-1.6)
[2019-03-21 03:42] LABS: Amphetamines+Metham, Urine Pos (Neg); Barbiturates, Urine Neg (Neg); Benzodiazepine, Urine Neg (Neg); Cocaine, Urine Neg (Neg); MDMA (Ecstacy), Urine Pos (Neg); Methadone, Urine Neg (Neg); Opiate, Urine Neg (Neg); Phencyclidine, Urine Neg (Neg)
[2019-03-21 03:54] LABS: D Dimer 210 ug/L FEU (0-500); Partial Thromboplastin Time 26.4 Seconds (21.0-31.0); Prothrombin Time 10.1 Seconds (9.0-12.0)
[2019-03-21] MEDS ORDERED: AMLODIPINE BESYLATE 5 MG TAB PO STA (04:14)
[2019-03-21] MEDS ORDERED: LABETALOL HCL IV 5 MG/ML 20ML IV STA ×2 (05:24→05:55)
[2019-03-21] MEDS ORDERED: HYDROmorphone INJ 0.5 MG/0.5 ML SYR IV STA (05:25)
[2019-03-21] MEDS ORDERED: POTASSIUM CHLORIDE 10 MEQ TABCR PO STA (06:19)
--- NOTE | 2019-03-21 07:01 | History & Physical Report ---
Date of Service March 21, 2019 Assessment & Plan (1) Chest pain: Secondary to hypertensive urgency Alcohol abuse, substance possibly contributory hx seizure DSO versus pseudoseizure Recent outpatient EEG was normal [place] [facility] [place] Hypokalemia mood disorder, at baseline as per patient hx PE status post anti-coagulation ongoing tobacco abuse OBS PCU Continue antihypertensive meds; increase ARB dose G Nephrology consult if without improvement for uncontrolled hypertension (patient known to service) Replace potassium DT precautions Nicotine patch DVT prophylaxis. Lovenox subcu Full code History of Present Illness Chief Complaint: Chest pain, headache Primary Care Provider: Angelic Pereira DO History obtained from patient and records. Medical history significant for hypertension, mood disorder, PE status post anti-coagulation, chronic back pain, past history benzodiazepine/opioid abuse as per records, alcohol abuse as per records, history seizures/pseudoseizure disorder, ongoing tobacco abuse. Recent confinement November 2018 for hypertensive urgency in the context of alcohol abuse. Around 10 PM last night, patient noted substernal pain going down the right arm associated with achy headache symptoms, dizziness, nausea. Usual exertional S OB symptoms. Patient compliant with home medications. Denies dietary indiscretion, NSAID intake. No unusual stress at home. Alcohol intake twice a week, last intake was around 2 PM yesterday. SBP currently 1 50-160s at the emergency room. Currently more comfortable. Allergies Allergy/AdvReac Type Severity Reaction Status Date / Time nut - unspecified Allergy Severe Anaphylaxis Verified 03/21/19 02:58 Penicillins Allergy Severe CAN'T Verified 03/21/19 02:58 BREATH tree nut Allergy Severe Anaphylaxis Verified 03/21/19 02:58 morphine Allergy Intermediate hives Verified 03/21/19 02:58 mushroom Allergy Intermediate HIVES Verified 03/21/19 02:58 Home Medications Home Medications Medication Instructions Recorded Confirmed Type aripiprazole 10 mg PO QPM 05/13/18 03/21/19 History epinephrine [EpiPen] 0.3 mg IM Q3H PRN 05/13/18 03/21/19 History lamotrigine 75 mg PO QAM 05/13/18 03/21/19 History irbesartan 150 mg PO DAILY 11/07/18 03/21/19 History Vyvanse 30 mg PO DAILY 12/01/18 03/21/19 History bupropion HCl 100 mg PO DAILY 12/01/18 03/21/19 History clonidine HCl 0.1 mg PO TID 12/01/18 03/21/19 History spironolactone 50 mg PO DAILY 12/01/18 03/21/19 History clonazepam 1 mg PO BID 03/21/19 03/21/19 History prazosin [Minipress] 3 mg PO HS 03/21/19 03/21/19 History Past Med/Surg History Social History Preferred Language: Malaysian Communication Ability: Effective 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 Beliefs That Will Affect Care: None marital status: Single Current Living Situation: Significant Other current occupational status: unemployed current occupation: Prior employment at [employer] Feels Safe at Home: Yes Smoking Status: Current every day smoker Tobacco Type: cigarettes ; Cigarettes Per Day: 20 ; Second Hand Exposure: No ; Hx Alcohol Use: Yes Alcohol type: beer Hx Substance Use: Yes Last Used Substance: Unknown Review of Systems Review of Systems: As per HPI, all 10 systems reviewed, all other ROS negative Physical Exam Physical Exam: GENERAL: Obese, slightly uncomfortable, no respiratory distress SKIN: Normal color, warm HEENT: [place] palpebral conjunctivae, no ptosis, dry buccal mucosa NECK : Supple, short neck, no tenderness CHEST : CTA, no tenderness HEART : RRR, no obvious murmurs ABDOMEN: Some distention, nontender EXTREMITIES : No LE swelling/tenderness, no other conspicuous deformities noted NEUROLOGIC : Coherent, no facial asymmetry, no other gross focality Results & Data Vital Signs (Past 12 Hours) Vital Signs Temp Pulse Pulse Resp BP BP Pulse Ox 03/21/19 06:30 93 H 20 158/117 H 97 03/21/19 05:58 92 H 14 160/114 H 95 03/21/19 05:37 91 H 97 03/21/19 05:23 108 H 13 165/110 H 99 03/21/19 05:00 109 H 19 155/114 H 99 03/21/19 04:49 106 H 22 146/116 H 100 03/21/19 03:29 97 H 17 159/114 H 97 03/21/19 02:30 36.8 C 104 H 18 157/114 H 100 Laboratory Results Laboratory Results WBC 11.39 K/uL (4.8-10.8) H 03/21/19 02:15 RBC 5.18 M/uL (4.2-5.4) 03/21/19 02:15 Hgb 15.6 g/dL (12.0-16.0) 03/21/19 02:15 Hct 45.6 % (37-47) 03/21/19 02:15 MCV 88.0 fL (80-100) 03/21/19 02:15 MCH 30.1 pg (25-34) 03/21/19 02:15 MCHC 34.2 g/dL (32-36) 03/21/19 02:15 RDW Std Deviation 45.2 fL (36.4-46.3) 03/21/19 02:15 RDW Coeff of Carmen 14.0 % (11.5-14.5) 03/21/19 02:15 Plt Count 333 K/uL (130-400) 03/21/19 02:15 MPV 9.9 fL (7.4-10.4) 03/21/19 02:15 Immature Gran % (Auto) 0.4 % 03/21/19 02:15 Neut % (Auto) 60.5 % 03/21/19 02:15 Lymph % (Auto) 28.2 % 03/21/19 02:15 [place] % (Auto) 7.1 % 03/21/19 02:15 Eos % (Auto) 3.4 % 03/21/19 02:15 Baso % (Auto) 0.4 % 03/21/19 02:15 Immature Gran # (Auto) 0.04 K/uL (0.00-0.02) H 03/21/19 02:15 Neut # (Auto) 6.90 K/uL (1.4-6.5) H 03/21/19 02:15 Lymph # (Auto) 3.21 K/uL (1.2-3.4) 03/21/19 02:15 [place] # (Auto) 0.81 K/uL (0.11-0.59) H 03/21/19 02:15 Eos # (Auto) 0.39 K/uL (0-0.5) 03/21/19 02:15 Baso # (Auto) 0.04 K/uL (0-0.2) 03/21/19 02:15 PT 10.1 Seconds (9.0-12.0) 03/21/19 03:35 INR 1.0 (0.9-1.1) 03/21/19 03:35 APTT 26.4 Seconds (21.0-31.0) 03/21/19 03:35 PTT Ratio 1.0 03/21/19 03:35 D-Dimer 210 ug/L FEU (0-500) 03/21/19 03:35 Sodium 138 mmol/L (136-145) 03/21/19 02:15 Potassium 3.0 mmol/L (3.5-5.1) L 03/21/19 02:15 Chloride 103 mmol/L (98-107) 03/21/19 02:15 Carbon Dioxide 28 mmol/L (21-32) 03/21/19 02:15 Anion Gap 7.0 (3-11) 03/21/19 02:15 BUN 5 mg/dl (7-18) L 03/21/19 02:15 Creatinine 0.73 mg/dl (0.6-1.2) 03/21/19 02:15 Est Cr Clr Drug Dosing 133.3 ml/min 03/21/19 02:15 Est GFR ( Amer) 127.2 03/21/19 02:15 Est GFR (Non-Af Amer) 109.7 03/21/19 02:15 BUN/Creatinine Ratio 6.6 (10-20) L 03/21/19 02:15 Glucose 80 mg/dl (70-99) 03/21/19 02:15 Calcium 9.3 mg/dl (8.5-10.1) 03/21/19 02:15 Magnesium 2.2 mg/dl (1.8-2.4) 03/21/19 02:15 Total Bilirubin 0.5 mg/dl (0.2-1) 03/21/19 02:15 AST 25 U/L (15-37) 03/21/19 02:15 ALT 34 U/L (12-78) 03/21/19 02:15 Alkaline Phosphatase 104 U/L (45-117) 03/21/19 02:15 Troponin I < 0.015 ng/ml (0-0.045) 03/21/19 02:15 Total Protein 8.7 gm/dl (6.4-8.2) H 03/21/19 02:15 Albumin 4.3 gm/dl (3.4-5.0) 03/21/19 02:15 Globulin 4.4 gm/dl (2.5-4.0) H 03/21/19 02:15 Albumin/Globulin Ratio 1.0 (0.9-2) 03/21/19 02:15 Lipase 107 U/L (73-393) 03/21/19 02:15 TSH 4.680 uIu/ml (0.300-4.500) H 03/21/19 02:15 Free T4 1.33 ng/dl (0.8-1.6) 03/21/19 02:15 Urine Color Yellow 03/21/19 03:09 Urine Appearance Clear (Clear) 03/21/19 03:09 Urine pH 7.5 (4.5-7.5) 03/21/19 03:09 Ur Specific [place] 1.008 (1.000-1.030) 03/21/19 03:09 Urine Protein Negative (Negative) 03/21/19 03:09 Urine Glucose (UA) Negative (Negative) 03/21/19 03:09 Urine Ketones Negative (Negative) 03/21/19 03:09 Urine Blood Negative (Negative) 03/21/19 03:09 Urine Nitrite Negative (Negative) 03/21/19 03:09 Urine Bilirubin Negative (Negative) 03/21/19 03:09 Urine Urobilinogen Negative (Negative) 03/21/19 03:09 Ur Leukocyte Esterase Negative (Negative) 03/21/19 03:09 POC Ur Test NEG (NEG) 03/21/19 03:09 Urine Opiates Screen Neg (Neg) 03/21/19 03:09 Ur Methadone, Qual Neg (Neg) 03/21/19 03:09 Urine Barbiturates Neg (Neg) 03/21/19 03:09 Ur Phencyclidine (PCP) Neg (Neg) 03/21/19 03:09 U Amphetamin/Meth Scrn Pos (Neg) H 03/21/19 03:09 MDMA (Ecstasy) Screen Pos (Neg) H 03/21/19 03:09 U Benzodiazepines Scrn Neg (Neg) 03/21/19 03:09 Ur Cocaine Metabolite Neg (Neg) 03/21/19 03:09 U Marijuana (THC) Screen Pos (Neg) H 03/21/19 03:09 Diagnostic Findings Chest x-ray as per my interpretation no infiltrate no cardiomegaly EKG as per my interpretation : Rate 90, NSR, LAD, LAFB, incomplete RBBB, LAE, no ischemia CT head initial read: Negative
--- NOTE | 2019-03-21 07:06 | CT Scan Report ---
CT SCAN OF THE BRAIN WITHOUT IV CONTRAST CLINICAL HISTORY: Hypertension. Headache COMPARISON STUDY: CT of the brain dated 12/01/2018. TECHNIQUE: Unenhanced axial CT scan of the brain is performed from the vertex to the skull base. A d ose lowering technique was utilized adhering to the principles of ALARA. CT DOSE: 614.27 mGy.cm FINDINGS: Brain parenchyma: The brain parenchyma is normal in appearance. There is no hemorrhage, mass effect, or evidence of acute territorial ischemia by CT criteria. Lucas-white matter differentiation is preser gregor. No extra-axial fluid collection is seen. Ventricles, sulci, cisterns: Normal in configuration. Intracranial vasculature: The visualized intracranial vasculature at the skull base is normal in appe arance. Calvarium: Unremarkable. Sinuses and mastoids: The visualized paranasal sinuses are clear. The mastoid air cells are well pneu matized. Orbits: The bony orbits are grossly intact. IMPRESSION: No acute intracranial abnormality. Electronically signed by: Rakesh Sarabia M.D. 03/21/2019 7:04 AM
--- NOTE | 2019-03-21 07:32 | XRay Report ---
XR chest 1V portable CLINICAL HISTORY: 33 years-old Female presenting with chest pain. TECHNIQUE: Portable upright AP view of the chest was obtained. COMPARISON: 09/01/2018. FINDINGS: Cardiomediastinal silhouette normal. No focal opacity. No large effusion or pneumothorax. Osseous str uctures normal. Upper abdomen normal. IMPRESSION: 1. No acute cardiopulmonary disease. Electronically signed by: Quinn Edwards M.D. 03/21/2019 7:31 AM
[2019-03-21] MEDS ORDERED: GABAPENTIN 1200MG ALCOHOL WITHDRAWAL LOAD PO STA (07:39)
[2019-03-21] MEDS ORDERED: LORazepam 1 MG/2 ML VIAL IV PRN (07:39)
[2019-03-21] MEDS ORDERED: LORazepam 2 MG/4 ML VIAL IV PRN (07:39)
[2019-03-21] MEDS ORDERED: LORazepam 3 MG/6 ML VIAL IV PRN (07:39)
[2019-03-21] MEDS ORDERED: ATIVAN IV ALCOHOL WITHDRAWL IV SCH (07:45)
[2019-03-21] MEDS ORDERED: PROMETHAZINE HCL 12.5 MG in SODIUM CHLORIDE 0.9% 50 ML IV PRN (08:16)
[2019-03-21] MEDS ORDERED: NITROGLYCERIN SL 0.4 MG/TAB TAB SL PRN (08:16)
[2019-03-21] MEDS ORDERED: LISDEXAMFETAMINE 30 MG PO SCH (09:00)
[2019-03-21] MEDS ORDERED: GABAPENTIN 600 MG TAB PO SCH (09:00)
[2019-03-21] MEDS ORDERED: NICOTINE 21 MG/24 HR TDSY TD SCH (09:00)
[2019-03-21] MEDS: cloNIDine HCl 0.1 MG TAB PO SCH ×3 (09:08→20:07)
[2019-03-21] MEDS: clonazePAM 1 MG TAB PO SCH ×2 (09:08→20:20)
[2019-03-21] MEDS: IRBESARTAN 150 MG TAB PO SCH (09:09)
[2019-03-21] MEDS: SPIRONOLACTONE 25 MG TAB PO SCH (09:09)
[2019-03-21] MEDS: BuPROPion SR 100 MG TABCR PO SCH (09:15)
[2019-03-21] MEDS: lamoTRIgine 25 MG TAB PO SCH (09:15)
[2019-03-21] MEDS: THIAMINE HCL 100 MG TAB PO SCH (09:16)
[2019-03-21] MEDS: FOLIC ACID 1 MG TAB PO SCH (09:16)
[2019-03-21] MEDS: MULTIVITAMIN TAB PO SCH (09:16)
[2019-03-21] MEDS: ENOXAPARIN INJ 40 MG/0.4 ML SYR SQ SCH (09:20)
[2019-03-21] MEDS ORDERED: AMLODIPINE BESYLATE 5 MG TAB PO ONE (11:30)
[2019-03-21] MEDS: HYDROmorphone INJ 0.5 MG/0.5 ML SYR IV PRN ×2 (11:38→17:53)
--- NOTE | 2019-03-21 13:13 | Hospitalist Progress Note ---
Date of Service March 21, 2019 Assessment & Plan (1) Chest pain: Secondary to hypertensive urgency -- Irbesartan increased to 300mg po daily Add Amlodipine 10mg po daily Clonidine, Prazosin, Spironolactone continued will consult Nephrology -- Troponins negative x 2 D Dimer negative -- denies using illicit substances HOLD Vyvanse for now will consult Psych for medication review Alcohol abuse -- no overt signs of alcohol withdrawal continue Gabapentin protocol Positive Urine Drug Screen -- (+) MDMA, Metamphetamine, Marijuana patient reports she uses medical marijuana patient denies using illicit drugs -- from Vyvanse? Psych consulted hx seizure DSO versus pseudoseizure -- follows with Neurology service Hypokalemia -- replaced mood disorder, at baseline as per patient -- Psych consulted for medication review hx PE status post anti-coagulation -- on Lovenox for DVT prophyalaxis ongoing tobacco abuse -- counselling DVT prophylaxis. Lovenox subcu Full code Disposition lives with family at home Subjective ff up for hypertension seen with BEAN Dumont at the bedside throughout whole encounter not in distress, somewhat anxious states she still feels some chest pressure- denies shortness of breath, nausea has mild headache no abdominal pain, nausea/vomiting no other symptoms Review of Systems Review of Systems: All systems reviewed & are unremarkable except as noted in HPI & below Physical Exam Physical Exam: General- oriented x 3, not in distress, speaks in sentences with no effort or accessory muscle use Head- atraumatic Eyes- PERRL, EOMI, anicteric ENT- oropharynx clear Neck- supple, no JVD, no adenopathy, no thyromegaly; carotids +2/2, no bruits appreciated Lungs- clear to auscultation bilaterally, no rales/wheezes Heart- normal rate, regular rhythm; no murmur, no gallop, no rub appreciated Abdomen- normal bowel sounds, nondistended, soft, nontender, no masses or hepatosplenomegaly Extremities- no pretibial edema, no calf tenderness; peripheral pulses intact Neuro- alert, oriented x 3; CN 2-12 grossly intact; motor 5/5 bilaterally;sensation 100% on all extremities; no other gross focal neurologic deficits Skin- warm & dry Results & Data Vital Signs (Past 12 Hours) Vital Signs Temp Pulse Pulse Resp BP BP BP 03/21/19 12:40 102 H 03/21/19 11:55 36.7 C 100 H 18 160/113 H 03/21/19 11:20 160/102 H 03/21/19 10:48 36.8 C 89 28 H 147/105 H 03/21/19 10:03 36.4 C L 87 16 143/106 H 03/21/19 10:00 91 H 03/21/19 06:30 93 H 20 158/117 H 03/21/19 05:58 92 H 14 160/114 H 03/21/19 05:37 91 H 03/21/19 05:23 108 H 13 165/110 H 03/21/19 05:00 109 H 19 155/114 H 03/21/19 04:49 106 H 22 146/116 H 03/21/19 03:29 97 H 17 159/114 H 03/21/19 02:30 36.8 C 104 H 18 157/114 H Pulse Ox 03/21/19 12:40 03/21/19 11:55 95 03/21/19 11:20 03/21/19 10:48 100 03/21/19 10:03 95 03/21/19 10:00 03/21/19 06:30 97 03/21/19 05:58 95 03/21/19 05:37 97 03/21/19 05:23 99 03/21/19 05:00 99 03/21/19 04:49 100 03/21/19 03:29 97 03/21/19 02:30 100 Laboratory Results Laboratory Results - last 24 hr 03/21/19 03/21/19 03/21/19 02:15 02:15 02:15 WBC 11.39 H RBC 5.18 Hgb 15.6 Hct 45.6 MCV 88.0 MCH 30.1 MCHC 34.2 RDW Std Deviation 45.2 RDW Coeff of Carmen 14.0 Plt Count 333 MPV 9.9 Immature Gran % (Auto) 0.4 Neut % (Auto) 60.5 Lymph % (Auto) 28.2 [place] % (Auto) 7.1 Eos % (Auto) 3.4 Baso % (Auto) 0.4 Immature Gran # (Auto) 0.04 H Neut # (Auto) 6.90 H Lymph # (Auto) 3.21 [place] # (Auto) 0.81 H Eos # (Auto) 0.39 Baso # (Auto) 0.04 PT Cancelled INR Cancelled APTT Cancelled PTT Ratio Cancelled D-Dimer Cancelled Sodium 138 Potassium 3.0 L Chloride 103 Carbon Dioxide 28 Anion Gap 7.0 BUN 5 L Creatinine 0.73 Est Cr Clr Drug Dosing 133.3 Est GFR ( Amer) 127.2 Est GFR (Non-Af Amer) 109.7 BUN/Creatinine Ratio 6.6 L Glucose 80 Calcium 9.3 Magnesium 2.2 Total Bilirubin 0.5 AST 25 ALT 34 Alkaline Phosphatase 104 Troponin I < 0.015 Total Protein 8.7 H Albumin 4.3 Globulin 4.4 H Albumin/Globulin Ratio 1.0 Lipase 107 TSH 4.680 H Free T4 1.33 Urine Color Urine Appearance Urine pH Ur Specific Ruby Urine Protein Urine Glucose (UA) Urine Ketones Urine Blood Urine Nitrite Urine Bilirubin Urine Urobilinogen Ur Leukocyte Esterase POC Ur Test Urine Opiates Screen Ur Methadone, Qual Urine Barbiturates Ur Phencyclidine (PCP) U Amphetamines Confirm U Amphetamin/Meth Scrn U Methamphetamin Confrm MDMA (Ecstasy) Screen U MDMA (Ecstasy), Quant U Benzodiazepines Scrn Ur Cocaine Metabolite U Marijuana (THC) Screen U Marijuana THC Carboxy Ethyl Alcohol mg/dL 03/21/19 03/21/19 03/21/19 03:09 03:09 03:09 WBC RBC Hgb Hct MCV MCH MCHC RDW Std Deviation RDW Coeff of Carmen Plt Count MPV Immature Gran % (Auto) Neut % (Auto) Lymph % (Auto) [place] % (Auto) Eos % (Auto) Baso % (Auto) Immature Gran # (Auto) Neut # (Auto) Lymph # (Auto) [place] # (Auto) Eos # (Auto) Baso # (Auto) PT INR APTT PTT Ratio D-Dimer Sodium Potassium Chloride Carbon Dioxide Anion Gap BUN Creatinine Est Cr Clr Drug Dosing Est GFR ( Amer) Est GFR (Non-Af Amer) BUN/Creatinine Ratio Glucose Calcium Magnesium Total Bilirubin AST ALT Alkaline Phosphatase Troponin I Total Protein Albumin Globulin Albumin/Globulin Ratio Lipase TSH Free T4 Urine Color Yellow Urine Appearance Clear Urine pH 7.5 Ur Specific [place] 1.008 Urine Protein Negative Urine Glucose (UA) Negative Urine Ketones Negative Urine Blood Negative Urine Nitrite Negative Urine Bilirubin Negative Urine Urobilinogen Negative Ur Leukocyte Esterase Negative POC Ur Test NEG Urine Opiates Screen Neg Ur Methadone, Qual Neg Urine Barbiturates Neg Ur Phencyclidine (PCP) Neg U Amphetamines Confirm U Amphetamin/Meth Scrn Pos H U Methamphetamin Confrm MDMA (Ecstasy) Screen Pos H U MDMA (Ecstasy), Quant U Benzodiazepines Scrn Neg Ur Cocaine Metabolite Neg U Marijuana (THC) Screen Pos H U Marijuana THC Carboxy Ethyl Alcohol mg/dL 03/21/19 03/21/19 03/21/19 03:09 03:09 03:35 WBC RBC Hgb Hct MCV MCH MCHC RDW Std Deviation RDW Coeff of Carmen Plt Count MPV Immature Gran % (Auto) Neut % (Auto) Lymph % (Auto) [place] % (Auto) Eos % (Auto) Baso % (Auto) Immature Gran # (Auto) Neut # (Auto) Lymph # (Auto) [place] # (Auto) Eos # (Auto) Baso # (Auto) PT 10.1 INR 1.0 APTT 26.4 PTT Ratio 1.0 D-Dimer 210 Sodium Potassium Chloride Carbon Dioxide Anion Gap BUN Creatinine Est Cr Clr Drug Dosing Est GFR ( Amer) Est GFR (Non-Af Amer) BUN/Creatinine Ratio Glucose Calcium Magnesium Total Bilirubin AST ALT Alkaline Phosphatase Troponin I Total Protein Albumin Globulin Albumin/Globulin Ratio Lipase TSH Free T4 Urine Color Urine Appearance Urine pH Ur Specific [place] Urine Protein Urine Glucose (UA) Urine Ketones Urine Blood Urine Nitrite Urine Bilirubin Urine Urobilinogen Ur Leukocyte Esterase POC Ur Test Urine Opiates Screen Ur Methadone, Qual Urine Barbiturates Ur Phencyclidine (PCP) U Amphetamines Confirm Pending U Amphetamin/Meth Scrn U Methamphetamin Confrm Pending MDMA (Ecstasy) Screen U MDMA (Ecstasy), Quant Pending U Benzodiazepines Scrn Ur Cocaine Metabolite U Marijuana (THC) Screen U Marijuana THC Carboxy Pending Ethyl Alcohol mg/dL 03/21/19 03/21/19 10:02 10:02 WBC RBC Hgb Hct MCV MCH MCHC RDW Std Deviation RDW Coeff of Carmen Plt Count MPV Immature Gran % (Auto) Neut % (Auto) Lymph % (Auto) [place] % (Auto) Eos % (Auto) Baso % (Auto) Immature Gran # (Auto) Neut # (Auto) Lymph # (Auto) [place] # (Auto) Eos # (Auto) Baso # (Auto) PT INR APTT PTT Ratio D-Dimer Sodium Potassium Chloride Carbon Dioxide Anion Gap BUN Creatinine Est Cr Clr Drug Dosing Est GFR ( Amer) Est GFR (Non-Af Amer) BUN/Creatinine Ratio Glucose Calcium Magnesium Total Bilirubin AST ALT Alkaline Phosphatase Troponin I < 0.015 Total Protein Albumin Globulin Albumin/Globulin Ratio Lipase TSH Free T4 Urine Color Urine Appearance Urine pH Ur Specific [place] Urine Protein Urine Glucose (UA) Urine Ketones Urine Blood Urine Nitrite Urine Bilirubin Urine Urobilinogen Ur Leukocyte Esterase POC Ur Test Urine Opiates Screen Ur Methadone, Qual Urine Barbiturates Ur Phencyclidine (PCP) U Amphetamines Confirm U Amphetamin/Meth Scrn U Methamphetamin Confrm MDMA (Ecstasy) Screen U MDMA (Ecstasy), Quant U Benzodiazepines Scrn Ur Cocaine Metabolite U Marijuana (THC) Screen U Marijuana THC Carboxy Ethyl Alcohol mg/dL < 3.0
[2019-03-21] MEDS: NICOTINE 14 MG/24 HR PATCH TD SCH (14:48)
[2019-03-21] MEDS: GABAPENTIN 600 MG TAB PO SCH ×2 (14:48→20:06)
[2019-03-21] MEDS ORDERED: MECLIZINE HCL 25 MG TAB PO PRN (16:29)
[2019-03-21] MEDS ORDERED: HydrALAZINE HCL 20 MG/ML VIAL IV STA (16:42)
[2019-03-21] MEDS ORDERED: HydrALAZINE HCL 20 MG/ML VIAL IV PRN (16:43)
[2019-03-21] MEDS ORDERED: HydrALAZINE HCL 20 MG/ML VIAL ONE (16:45)
[2019-03-21] MEDS: OXYCODONE HCL IR 5 MG TAB (IMMEDIATE RELEASE) PO PRN (16:53)
--- NOTE | 2019-03-21 17:29 | Nephrology Consultation ---
Date of Consultation March 21, 2019 Assessment & Plan (1) Hypertensive urgency: Patient with hypertensive urgency. It appears patient has hypertension for a long time. This could be secondary hypertension given young age of onset. Patient reports being told that she has right renal artery stenosis although I do not have documentation from [facility]. She also has hypokalemia and could have primary hyperaldosteronism. She is currently on Aldactone which can interfere with assay. The main priority now is controlling her blood pressure. I recommend starting her on labetalol 200 mg 3 times daily. Continue her current regimen. Target systolic blood pressure of 150 at 160 until morning. Will consider additional work-up for secondary hypertension after stabilizing her blood pressure and reviewing outside records. (2) Headache: Patient with headache unclear if this is due to the hypertension or she has at the forms of primary headache such as migraine. Consider neurology evaluation. Continue supportive management for the headache and Zofran for nausea. Consider trial of sumatriptan in case this is migraine. History of Present Illness Reason for Consultation: Hypertensive urgency Requesting Physician: Yoshi Corado MD Attending Physician: Yoshi Corado MD History of Present Illness This is a 33-year-old female with history of mood disorder, hypertension with recurrent admissions for hypertensive urgency, active tobacco use, seizures who was admitted on 03/21/2019 with severe headache, chest pain and hypertensive urgency. Her blood pressure has been in the 200s systolic. Patient recently admitted here 3-month ago with the hypertensive urgency. Home blood pressures usually controlled in the 130s. She reports having severe frontal headache since last night at 10 PM. She denies history of migraines. She reports history of visual impairment and seeing stars with episodes of headache. No seizures. No hot flashes. She reports having had work-up for secondary hypertension at [facility] and was told she has right renal artery stenosis. She follows with my colleague Dr. Thomas. Patient still complaining of a headache at the time of my visit. She received Dilaudid, IV labetalol and clonidine in the emergency room. Systolic blood pressure still in the 200s. She denied cocaine use. She has medical marijuana. She is also having nausea. Allergies Allergy/AdvReac Type Severity Reaction Status Date / Time nut - unspecified Allergy Severe Anaphylaxis Verified 03/21/19 02:58 Penicillins Allergy Severe CAN'T Verified 03/21/19 02:58 BREATH tree nut Allergy Severe Anaphylaxis Verified 03/21/19 02:58 morphine Allergy Intermediate hives Verified 03/21/19 02:58 mushroom Allergy Intermediate HIVES Verified 03/21/19 02:58 Home Medications Home Medications Medication Instructions Recorded Confirmed Type aripiprazole 10 mg PO QPM 05/13/18 03/21/19 History epinephrine [EpiPen] 0.3 mg IM Q3H PRN 05/13/18 03/21/19 History lamotrigine 75 mg PO QAM 05/13/18 03/21/19 History irbesartan 150 mg PO DAILY 11/07/18 03/21/19 History Vyvanse 30 mg PO DAILY 12/01/18 03/21/19 History bupropion HCl 100 mg PO DAILY 12/01/18 03/21/19 History clonidine HCl 0.1 mg PO TID 12/01/18 03/21/19 History spironolactone 50 mg PO DAILY 12/01/18 03/21/19 History clonazepam 1 mg PO BID 03/21/19 03/21/19 History prazosin [Minipress] 3 mg PO HS 03/21/19 03/21/19 History Patient History Social History Preferred Language: Danish Communication Ability: Effective Spring Maker Required: No Beliefs That Will Affect Care: None marital status: Single Current Living Situation: Family and Significant Other current occupational status: unemployed current occupation: Prior employment at [employer] Other Information That Helps Us Care for You: No Feels Safe at Home: Yes Safety Concerns: Feels Safe At This Time Smoking Status: Heavy tobacco smoker Tobacco Type: cigarettes ; Cigarettes Per Day: half pack per day ; Do You Dip or Chew Tobacco: No ; Second Hand Exposure: Yes ; Tobacco Cessation Education Requested by Patient: No Hx Alcohol Use: Yes Alcohol type: hard liquor Hx Substance Use: Yes substance use type: marijuana and hallucinogens Last Used Substance: Days (ago) Last Used Substance Other:: Medical Marijuana yesterday. Hallucinogens 10 years ago Review of Systems Review of Systems: All systems reviewed & are unremarkable except as noted in HPI & below Physical Exam Physical Exam: General exam: Patient is in distress due to severe headache but able to give history HEENT: Pupils are equal and reactive to light Neck: No JVD, neck is supple trachea is midline Respiratory system: Clear breath sounds bilaterally. Gastrointestinal: Abdomen is soft, non distended, non tender, bowel sounds are present CVS: Regular rate and rhythm. No murmurs, rubs or gallops Musculoskeletal: No joint or muscle tenderness Extremities: Non tender, no edema, peripheral pulses are present Neuro: Oriented, no tremors, no focal neurological deficits Skin: No rashes Results & Data Vital Signs (Past 12 Hours) Vital Signs Temp Pulse Pulse Pulse Resp BP BP 03/21/19 17:22 153/89 H 03/21/19 16:32 36.9 C 103 H 19 164/119 H 169/139 H 03/21/19 12:40 102 H 03/21/19 11:55 36.7 C 100 H 18 160/113 H 03/21/19 11:20 160/102 H 03/21/19 10:48 36.8 C 89 28 H 147/105 H 03/21/19 10:03 36.4 C L 87 16 143/106 H 03/21/19 10:00 91 H 03/21/19 06:30 93 H 20 158/117 H 03/21/19 05:58 92 H 14 160/114 H 03/21/19 05:37 91 H Pulse Ox 03/21/19 17:22 03/21/19 16:32 97 03/21/19 12:40 03/21/19 11:55 95 03/21/19 11:20 03/21/19 10:48 100 03/21/19 10:03 95 03/21/19 10:00 03/21/19 06:30 97 03/21/19 05:58 95 03/21/19 05:37 97 Laboratory Results Laboratory Results - last 24 hr 03/21/19 03/21/19 03/21/19 02:15 02:15 02:15 WBC 11.39 H RBC 5.18 Hgb 15.6 Hct 45.6 MCV 88.0 MCH 30.1 MCHC 34.2 RDW Std Deviation 45.2 RDW Coeff of Carmen 14.0 Plt Count 333 MPV 9.9 Immature Gran % (Auto) 0.4 Neut % (Auto) 60.5 Lymph % (Auto) 28.2 [place] % (Auto) 7.1 Eos % (Auto) 3.4 Baso % (Auto) 0.4 Immature Gran # (Auto) 0.04 H Neut # (Auto) 6.90 H Lymph # (Auto) 3.21 [place] # (Auto) 0.81 H Eos # (Auto) 0.39 Baso # (Auto) 0.04 PT Cancelled INR Cancelled APTT Cancelled PTT Ratio Cancelled D-Dimer Cancelled Sodium 138 Potassium 3.0 L Chloride 103 Carbon Dioxide 28 Anion Gap 7.0 BUN 5 L Creatinine 0.73 Est Cr Clr Drug Dosing 133.3 Est GFR ( Amer) 127.2 Est GFR (Non-Af Amer) 109.7 BUN/Creatinine Ratio 6.6 L Glucose 80 Calcium 9.3 Magnesium 2.2 Total Bilirubin 0.5 AST 25 ALT 34 Alkaline Phosphatase 104 Troponin I < 0.015 Total Protein 8.7 H Albumin 4.3 Globulin 4.4 H Albumin/Globulin Ratio 1.0 Lipase 107 TSH 4.680 H Free T4 1.33 Urine Color Urine Appearance Urine pH Ur Specific [place] Urine Protein Urine Glucose (UA) Urine Ketones Urine Blood Urine Nitrite Urine Bilirubin Urine Urobilinogen Ur Leukocyte Esterase POC Ur Test Urine Opiates Screen Ur Methadone, Qual Urine Barbiturates Ur Phencyclidine (PCP) U Amphetamines Confirm U Amphetamin/Meth Scrn U Methamphetamin Confrm MDMA (Ecstasy) Screen U MDMA (Ecstasy), Quant U Benzodiazepines Scrn Ur Cocaine Metabolite U Marijuana (THC) Screen U Marijuana THC Carboxy Ethyl Alcohol mg/dL 03/21/19 03/21/19 03/21/19 03:09 03:09 03:09 WBC RBC Hgb Hct MCV MCH MCHC RDW Std Deviation RDW Coeff of Carmen Plt Count MPV Immature Gran % (Auto) Neut % (Auto) Lymph % (Auto) [place] % (Auto) Eos % (Auto) Baso % (Auto) Immature Gran # (Auto) Neut # (Auto) Lymph # (Auto) [place] # (Auto) Eos # (Auto) Baso # (Auto) PT INR APTT PTT Ratio D-Dimer Sodium Potassium Chloride Carbon Dioxide Anion Gap BUN Creatinine Est Cr Clr Drug Dosing Est GFR ( Amer) Est GFR (Non-Af Amer) BUN/Creatinine Ratio Glucose Calcium Magnesium Total Bilirubin AST ALT Alkaline Phosphatase Troponin I Total Protein Albumin Globulin Albumin/Globulin Ratio Lipase TSH Free T4 Urine Color Yellow Urine Appearance Clear Urine pH 7.5 Ur Specific [place] 1.008 Urine Protein Negative Urine Glucose (UA) Negative Urine Ketones Negative Urine Blood Negative Urine Nitrite Negative Urine Bilirubin Negative Urine Urobilinogen Negative Ur Leukocyte Esterase Negative POC Ur Test NEG Urine Opiates Screen Neg Ur Methadone, Qual Neg Urine Barbiturates Neg Ur Phencyclidine (PCP) Neg U Amphetamines Confirm U Amphetamin/Meth Scrn Pos H U Methamphetamin Confrm MDMA (Ecstasy) Screen Pos H U MDMA (Ecstasy), Quant U Benzodiazepines Scrn Neg Ur Cocaine Metabolite Neg U Marijuana (THC) Screen Pos H U Marijuana THC Carboxy Ethyl Alcohol mg/dL 03/21/19 03/21/19 03/21/19 03:09 03:09 03:35 WBC RBC Hgb Hct MCV MCH MCHC RDW Std Deviation RDW Coeff of Carmen Plt Count MPV Immature Gran % (Auto) Neut % (Auto) Lymph % (Auto) [place] % (Auto) Eos % (Auto) Baso % (Auto) Immature Gran # (Auto) Neut # (Auto) Lymph # (Auto) [place] # (Auto) Eos # (Auto) Baso # (Auto) PT 10.1 INR 1.0 APTT 26.4 PTT Ratio 1.0 D-Dimer 210 Sodium Potassium Chloride Carbon Dioxide Anion Gap BUN Creatinine Est Cr Clr Drug Dosing Est GFR ( Amer) Est GFR (Non-Af Amer) BUN/Creatinine Ratio Glucose Calcium Magnesium Total Bilirubin AST ALT Alkaline Phosphatase Troponin I Total Protein Albumin Globulin Albumin/Globulin Ratio Lipase TSH Free T4 Urine Color Urine Appearance Urine pH Ur Specific [place] Urine Protein Urine Glucose (UA) Urine Ketones Urine Blood Urine Nitrite Urine Bilirubin Urine Urobilinogen Ur Leukocyte Esterase POC Ur Test Urine Opiates Screen Ur Methadone, Qual Urine Barbiturates Ur Phencyclidine (PCP) U Amphetamines Confirm Pending U Amphetamin/Meth Scrn U Methamphetamin Confrm Pending MDMA (Ecstasy) Screen U MDMA (Ecstasy), Quant Pending U Benzodiazepines Scrn Ur Cocaine Metabolite U Marijuana (THC) Screen U Marijuana THC Carboxy Pending Ethyl Alcohol mg/dL 03/21/19 03/21/19 03/21/19 10:02 10:02 16:10 WBC RBC Hgb Hct MCV MCH MCHC RDW Std Deviation RDW Coeff of Carmen Plt Count MPV Immature Gran % (Auto) Neut % (Auto) Lymph % (Auto) [place] % (Auto) Eos % (Auto) Baso % (Auto) Immature Gran # (Auto) Neut # (Auto) Lymph # (Auto) [place] # (Auto) Eos # (Auto) Baso # (Auto) PT INR APTT PTT Ratio D-Dimer Sodium Potassium Chloride Carbon Dioxide Anion Gap BUN Creatinine Est Cr Clr Drug Dosing Est GFR ( Amer) Est GFR (Non-Af Amer) BUN/Creatinine Ratio Glucose Calcium Magnesium Total Bilirubin AST ALT Alkaline Phosphatase Troponin I < 0.015 < 0.015 Total Protein Albumin Globulin Albumin/Globulin Ratio Lipase TSH Free T4 Urine Color Urine Appearance Urine pH Ur Specific [place] Urine Protein Urine Glucose (UA) Urine Ketones Urine Blood Urine Nitrite Urine Bilirubin Urine Urobilinogen Ur Leukocyte Esterase POC Ur Test Urine Opiates Screen Ur Methadone, Qual Urine Barbiturates Ur Phencyclidine (PCP) U Amphetamines Confirm U Amphetamin/Meth Scrn U Methamphetamin Confrm MDMA (Ecstasy) Screen U MDMA (Ecstasy), Quant U Benzodiazepines Scrn Ur Cocaine Metabolite U Marijuana (THC) Screen U Marijuana THC Carboxy Ethyl Alcohol mg/dL < 3.0
[2019-03-21] MEDS: ARIPiprazole 10 MG TAB PO SCH (20:07)
[2019-03-21] MEDS: LABETALOL HCL 200 MG TAB PO SCH (20:13)
[2019-03-21] MEDS ORDERED: PRAZOSIN HCL 1 MG CAP PO SCH (21:00)
[2019-03-22] MEDS: ACETAMINOPHEN 325 MG TAB PO PRN ×3 (02:30→19:50)
[2019-03-22] MEDS: GABAPENTIN 600 MG TAB PO SCH ×3 (03:49→19:52)
[2019-03-22 07:03] LABS: Basophils # (auto) 0.03 K/uL (0-0.2); Basophils % (auto) 0.3 %; Eosinophils # (auto) 0.36 K/uL (0-0.5); Eosinophils % (auto) 4.1 %; Hematocrit (blood only) 37.8 % (37-47); Hemoglobin 12.5 g/dL (12.0-16.0); Immature Granulocytes # (auto) 0.02 K/uL (0.00-0.02); Immature Granulocytes % (auto) 0.2 %; Lymphocytes # (auto) 1.98 K/uL (1.2-3.4); Lymphocytes % (auto) 22.4 %; Mean Corpuscular Hgb Conc 33.1 g/dL (32-36); Mean Corpuscular Volume 87.9 fL (80-100); Mean Platelet Volume 9.6 fL (7.4-10.4); Monocytes % (auto) 10.2 %; Neutrophils # (auto) 5.53 K/uL (1.4-6.5); Neutrophils % (auto) 62.8 %; Platelet Count 266 K/uL (130-400); RDW Coefficient of Variation 14.5 % (11.5-14.5); RDW Standard Deviation 46.8 fL (36.4-46.3); White Blood Count 8.82 K/uL (4.8-10.8)
[2019-03-22] MEDS: ENOXAPARIN INJ 40 MG/0.4 ML SYR SQ SCH (07:38)
[2019-03-22] MEDS: NICOTINE 14 MG/24 HR PATCH TD SCH (07:38)
[2019-03-22] MEDS: MULTIVITAMIN TAB PO SCH (07:38)
[2019-03-22] MEDS: clonazePAM 1 MG TAB PO SCH ×2 (07:38→19:55)
[2019-03-22] MEDS: cloNIDine HCl 0.1 MG TAB PO SCH (07:38)
[2019-03-22] MEDS: IRBESARTAN 150 MG TAB PO SCH (07:40)
[2019-03-22] MEDS: SPIRONOLACTONE 25 MG TAB PO SCH (07:40)
[2019-03-22] MEDS: THIAMINE HCL 100 MG TAB PO SCH (07:41)
[2019-03-22] MEDS: lamoTRIgine 25 MG TAB PO SCH (07:41)
[2019-03-22] MEDS: BuPROPion SR 100 MG TABCR PO SCH (07:41)
[2019-03-22] MEDS: FOLIC ACID 1 MG TAB PO SCH (07:42)
[2019-03-22] MEDS: LABETALOL HCL 200 MG TAB PO SCH ×3 (07:42→19:52)
[2019-03-22] MEDS ORDERED: AMLODIPINE BESYLATE 5 MG TAB PO SCH (09:00)
--- NOTE | 2019-03-22 09:48 | Nephrology Progress Note ---
Date of Service March 22, 2019 Assessment & Plan (1) Hypertensive urgency: Patient with hypertensive urgency. It appears patient has had hypertension for a long time. This could be secondary hypertension given young age of onset. Patient reports being told that she has right renal artery stenosis although I do not have documentation from [facility]. She also has hypokalemia and could have primary hyperaldosteronism. She is currently on Aldactone which can interfere with assay. Blood pressure is controlled on current regimen. I will stop clonidine as it tends to cause reflux hypertension. Will consider additional work-up for secondary hypertension after stabilizing her blood pressure and reviewing outside records. (2) Headache: Patient with headache unclear if this is due to the hypertension or she has other forms of primary headache such as migraine. Headache is better this morning. Continue supportive management for the headache and Zofran as needed for nausea. Subjective Patient seen in follow-up for hypertension. Blood pressure is better this morning. Headache had subsided. She is complaining of double vision. No vomiting or diarrhea. Review of Systems Review of Systems: All systems reviewed & are unremarkable except as noted in HPI & below Physical Exam Physical Exam: General exam: Appears comfortable, no acute distress HEENT: Pupils are equal and reactive to light Neck: No JVD, neck is supple trachea is midline Respiratory system: Clear breath sounds bilaterally. Gastrointestinal: Abdomen is soft, non distended, non tender, bowel sounds are present CVS: Regular rate and rhythm. No murmurs, rubs or gallops Musculoskeletal: No joint or muscle tenderness Extremities: Non tender, no edema, peripheral pulses are present Neuro: Oriented, no tremors, no focal neurological deficits Skin: No rashes Results & Data Vital Signs (Past 12 Hours) Vital Signs Temp Pulse Pulse Pulse Resp BP Pulse Ox 03/22/19 07:03 36.9 C 92 H 18 118/90 95 03/22/19 04:00 36.9 C 94 H 18 136/82 95 03/22/19 02:25 36.9 C 97 H 18 140/93 95 03/22/19 00:00 37.0 C 94 H 18 127/89 93 03/21/19 23:00 98 H 03/21/19 22:45 120/81 Laboratory Results Laboratory Results - last 24 hr 03/21/19 03/21/19 03/21/19 10:02 10:02 16:10 WBC RBC Hgb Hct MCV MCH MCHC RDW Std Deviation RDW Coeff of Carmen Plt Count MPV Immature Gran % (Auto) Neut % (Auto) Lymph % (Auto) [place] % (Auto) Eos % (Auto) Baso % (Auto) Immature Gran # (Auto) Neut # (Auto) Lymph # (Auto) [place] # (Auto) Eos # (Auto) Baso # (Auto) Troponin I < 0.015 < 0.015 Ethyl Alcohol mg/dL < 3.0 03/22/19 06:10 WBC 8.82 RBC 4.30 Hgb 12.5 D Hct 37.8 MCV 87.9 MCH 29.1 MCHC 33.1 RDW Std Deviation 46.8 H RDW Coeff of Carmen 14.5 Plt Count 266 MPV 9.6 Immature Gran % (Auto) 0.2 Neut % (Auto) 62.8 Lymph % (Auto) 22.4 [place] % (Auto) 10.2 Eos % (Auto) 4.1 Baso % (Auto) 0.3 Immature Gran # (Auto) 0.02 Neut # (Auto) 5.53 Lymph # (Auto) 1.98 [place] # (Auto) 0.90 H Eos # (Auto) 0.36 Baso # (Auto) 0.03 Troponin I Ethyl Alcohol mg/dL
[2019-03-22 10:37] LABS: BUN Creatinine Ratio 9.1 (10-20); Calcium 8.8 mg/dl (8.5-10.1); Creatinine Clr Calc Pharmacy 123.5 ml/min; Est GFR (African American) 115.6; Est GFR (Non-African American) 99.8; Potassium 3.7 mmol/L (3.5-5.1)
--- NOTE | 2019-03-22 10:40 | Hospitalist Progress Note ---
Date of Service March 22, 2019 Assessment & Plan (1) Chest pain: Secondary to hypertensive urgency --[facility] of uncontrolled [facility] --Presented with chest pressure sensation associated with uncontrolled blood pressure, systolic 180s --Usually takes irbesartan 150 mg p.o. daily, clonidine 0.1 mg 3 times daily, prazosin 3 mg p.o. daily, spine letter 50 mg p.o. daily -- Troponins negative x 2 D Dimer negative denies using illicit substances --[employer] Manager consulted Irbesartan increased to 300mg po daily Added Amlodipine 10mg po daily Added labetalol 200 mg p.o. 3 times daily Usual clonidine and prazosin and spironolactone ordered --Today blood pressure is significantly improved Discussed with Dr. Alvarado Continue irbesartan 300 mg p.o. daily, labetalol 200 mg p.o. daily, amlodipine 10 mg p.o. daily Discontinue clonidine and prazosin as per nephrology recommendations May resume Vyvanse per nephrology service Monitor blood pressure once Vyvanse started tomorrow March 23, 2019 --We will order nocturnal pulse oximetry, patient will need formal sleep study to rule out obstructive sleep apnea as a cause of possible secondary hypertension Alcohol usage --Patient reports she she drinks 2 to 3 cups of wine a few times a week, can finish 1 bottle in 1 week she says she does not drink alcohol every day, last drink Thursday -- no overt signs of alcohol withdrawal continue Gabapentin protocol --May be contributing to hypertension, patient counseled to limit and eventually discontinue alcohol usage Positive Urine Drug Screen -- (+) MDMA, Metamphetamine, Marijuana patient reports she uses medical marijuana patient denies using illicit drugs --False positive from Vyvanse? Psych consulted --Patient advised not to drive, fitness for driving should be reevaluated as an outpatient and follow-up History of seizure DSO versus pseudoseizure -- follows with Neurology service --Consulted neurology for headache with visual disturbance Hypokalemia -- replaced mood disorder, at baseline as per patient -- Psych consulted for medication review States her mood is stable overall hx PE status post anti-coagulation -- on Lovenox for DVT prophylaxis Ongoing tobacco abuse -- counselling done, continue nicotine patch DVT prophylaxis. Lovenox subcu given history of thromboembolism in the past Full code Disposition lives with family at home PT OT requested Anticipate discharge to home when medically stable Subjective Follow-up for hypertension, uncontrolled Seen and evaluated with BEAN Oliveira at the bedside Sleeping but easily awakened Denies chest pain, shortness of breath today Does report diplopia, some difficulty with reading Has mild frontal headache Denies focal weakness/numbness/paresthesias Denies nausea vomiting, abdominal pain, urinary symptoms, changes to bowel movement No other symptoms Patient is upset as she was told that further work-up for her hypertension will be performed as an outpatient, including renal artery stenosis [facility], visits with latex caster Dr. Thomas also reviewed Relayed to patient that CT angiogram last August 2018 ruled out renal artery stenosis Also hormone assays performed, negative for pheochromocytoma or hyperaldosteronism Inquired regarding diagnosis of obstructive sleep apnea, patient has not been evaluated for this Denies OCP use, NSAID use Explained to patient that she may have essential hypertension, exacerbated by Vyvanse, alcohol use, and smoking Patient states she only drinks wine a few days a week Counseled to limit and eventually discontinue alcohol and smoking as this would help control her blood pressure as well Case discussed in detail and at length with patient, including laboratory studies and medications All questions answered to her satisfaction She is understanding, agreeable, comfortable with the plan of care Reevaluated in the afternoon Still reporting some diplopia, headache improving Patient looks improved compared to this morning Informed her that I am consulting neurology for further recommendations regarding headache and visual changes She is also agreeable to this plan Review of Systems Review of Systems: All systems reviewed & are unremarkable except as noted in HPI & below Physical Exam Physical Exam: General- oriented x 3, not in distress, speaks in sentences with no effort or accessory muscle use Somewhat anxious Eyes- anicteric Neck- no JVD Lungs- clear breath sounds, no crackles, no wheezing bilaterally Heart- normal rate, regular rhythm; no murmurs Abdomen- normal bowel sounds, nondistended, soft, no tenderness noted Extremities- no pretibial edema, no calf tenderness Neuro- alert, oriented x 3; no gross focal neurologic deficits Skin- warm & dry Results & Data Vital Signs (Past 12 Hours) Vital Signs Temp Pulse Pulse Pulse Resp BP Pulse Ox 03/22/19 07:03 36.9 C 92 H 18 118/90 95 08/06/19 04:00 36.9 C 94 H 18 136/82 95 03/22/19 02:25 36.9 C 97 H 18 140/93 95 03/22/19 00:00 37.0 C 94 H 18 127/89 93 03/21/19 23:00 98 H 03/21/19 22:45 120/81
--- NOTE | 2019-03-22 11:04 | Psychiatric Consultation ---
Date of Consultation March 22, 2019 Impression / Recommendations Impression 33-year-old female admitted medically on 03/21/19 due to hypertensive urgency, having presented to the ED initially with chest pain, dizziness, and visual disturbance. According to patient, this is her 5th admission for similar concerns since May 2018. Psychiatric consultation was requested to review patient's medication regimen for possible contribution to hypertensive episodes. After review of outpatient psychiatric records, and through discussion with the patient - there are no verbalized concerns related to the efficacy of the patient's psychiatric medication regimen. Pt feels her symptoms of anxiety, periods of low mood, and overall mood stability are adequately managed. She denies SI/HI, SIB, A/V hallucinations, and other psychotic symptoms. There is no indication for an inpatient psychiatric admission at this time. In regard to her medication regimen, certainly the routine use of Wellbutrin and Vyvanse can contribute to hypertension - however, it would be expected that administration of these medications as routinely as patient indicates would be more consistent with regularly elevate blood pressure - rather than the acute episodes the patient has been experiencing. While hypertension can be a side effect of these medications, it is far less likely at the lower doses she is currently prescribed. When weighing out the efficacy of her current medication regimen with the likelihood the medications are significantly contributing to her hypertensive episodes, it seems most appropriate to continue her psychotropic medication regimen unchanged at this time while continuing to explore other explanations for her acute episodes of hypertensive urgency. We will continue to follow along and offer recommendations as they apply. Appreciate the opportunity to participate in the care of this patient. Would suggest faxing medical records and/or discharge summary to patient's psychiatric prescriber, in order to ensure any new medical findings are taken into consideration with any future medication adjustments. Dr. Renae Richard was directly involved in review and discussion of the patient's case and participated in medical decision making regarding treatment recommenda tions. CPT Code Initial Consultation: 99667 Psych History Identifying Data 33-year-old female presented to ED on 03/21/19 with complaints of chest pain, dizziness, and visual disturbances. Pt was developed hypertensive urgency and was admitted to the medical floor for observation. Psychiatric consultation was requested to review medication regimen with regard to contributions to hypertensive episodes. Information is gathered from the patient directly as well as from other hospital documentation - the combination of which is considered to be reliable. Chief Complaint "I'm here because of my blood pressure. This is like the 5th time since May." History of Present Illness Brigette Patel is a 33-year-old female admitted medically on 03/21/19 due to chest pain, visual disturbances, and dizziness. Pt developed hypertensive urgency and was admitted from the ED for closer observation and treatment. Psychiatric consultation is requested in order to evaluate medication regimen, as concern medications may be contributing to hypertensive episodes. Pt states this is her 5th admission for hypertension since 05/2018, and she is rather concerned that these events continue to occur. Pt's case was reviewed with psychiatric nurse liaison and psychiatrist prior to evaluation of the patient. Pt was agreeable to encounter and was cooperative for the duration of conversation. Pt states, "it's my blood pressure, I don't know what's going on." We reviewed her current medication regimen, which is accurate with the exception of Lunesta 1mg being added about 2 weeks ago to assist with sleep. Pt states that other than difficulty sleeping, she is "really comfortable with my medications." Pt has reportedly been seeing Xiomy Lopez PA-C for psychiatric medication adjustments for quite some time, and states, "I haven't had a manic episode in 2 or 3 years." Pt reports diagnoses of bipolar disorder, PTSD, anxiety, ADHD, and OCD. She states that she had been doing well until her ex- was released from alf and she acquired a PFA. Clonazepam was started at that time, with intent to taper the medication after this acute stressor. Pt reports that her boyfriend manages her medications; keeping them in a lock box and providing them to the patient at scheduled times. Pt states, "I'm a recovering addict, I've been super hesitant to even accept medications that can be addictive, but the clonazepam has been really helpful." Pt states that she has been taking this current regimen of psychotropic medications for at least the past 6 months, with no difficulties. She states the concern for her hypertensive episodes have been explored with her outpatient psychiatrist as well, with no imminent concern for their direct contribution. Pt does have her medical marijuana card, but states this behavior is unchanged as well. Pt reports consumption of about 1 glass of wine or 1 wine cooler weekly. She denies alcohol dependence. Pt denies use of illicit substances since 2013. Pt denies SI, HI, SIB, A/V hallucinations, paranoia, hector/hypomania, eating disorder, and other specific psychiatric symptoms. Past Psychiatric History Previous Psych History: Pt reports diagnoses of OCD, PTSD, Anxiety, Bipolar disorder, and ADHD. She is seen routinely by Xiomy Lopez at [facility], and has been given the diagnoses of post-traumatic stress disorder, chronic; and attention-deficit hyperactivity disorder, combined type. Pt sees Skyler Joshua for therapy on an intermittent basis. She has been admitted for inpatient psychiatric treatment at [facility] and the [facility]. Current Psychiatric Diagnosis: Bipolar I disorder, anxiety, PTSD, polysubstance abuse Outpatient Services: Medication Management - Xiomy Lopez PA-C - [facility] Therapy - Skyler Lewis Previous Psych Admissions: Includes, but not limited to: - [facility]: 06/2015; following overdose of Thorazine - [facility]: 05/2015 - [facility]: 10/2012; anxiety, depression, and SI History of Previous Suicide Attempt: Yes Describe Attempts in the Past: Overdose Past Medication Trials: List complied from available documentation: 1. Seroquel 2. Risperdal 3. Adderall 4. Hagan 5. Neurontin 6. Lexapro 7. Abilify 8. Wellbutrin SR 9. Vyvanse 10.Lamictal 11.Klonopin 12.Prazosin 13.Clonidine 14.Thorazine Allergies Allergy/AdvReac Type Severity Reaction Status Date / Time nut - unspecified Allergy Severe Anaphylaxis Verified 03/21/19 02:58 Penicillins Allergy Severe CAN'T Verified 03/21/19 02:58 BREATH tree nut Allergy Severe Anaphylaxis Verified 03/21/19 02:58 morphine Allergy Intermediate hives Verified 03/21/19 02:58 mushroom Allergy Intermediate HIVES Verified 03/21/19 02:58 Home Medications Home Medications Medication Instructions Recorded Confirmed Type aripiprazole 10 mg PO QPM 05/13/18 03/21/19 History epinephrine [EpiPen] 0.3 mg IM Q3H PRN 05/13/18 03/21/19 History irbesartan 150 mg PO DAILY 11/07/18 03/21/19 History Vyvanse 30 mg PO DAILY 12/01/18 03/21/19 History bupropion HCl 100 mg PO DAILY 12/01/18 03/21/19 History clonidine HCl 0.1 mg PO TID 12/01/18 03/21/19 History spironolactone 50 mg PO DAILY 12/01/18 03/21/19 History prazosin [Minipress] 3 mg PO HS 03/21/19 03/21/19 History benztropine 0.5 mg PO HS 03/22/19 03/22/19 History clonazepam 0.5 mg PO HS 03/22/19 03/22/19 History clonazepam 1 mg PO DAILY PRN 03/22/19 03/22/19 History eszopiclone [Lunesta] 1 mg PO HS 03/22/19 03/22/19 History lamotrigine [Lamictal] 75 mg PO DAILY 03/22/19 03/22/19 History Family History Pt reports family history of "issues" - mother and sister with bipolar disorder; brother with "PD-NOS, he's 13 in his mind but actually 23 years old." Grandmother with schizophrenia. Father with alcoholism. Substance Abuse History Pt reports consuming alcohol 1-2 days per week, typically 1 glass of wine or 1 wine cooler twice weekly. She admits to have secured a medical marijuana card, with daily use via vaping. Pt denies other use of illicit substances since 2013, when she "detoxed off Suboxone." Previous abuse of Percocet, alcohol, and cocaine - among other agents. Personal History Living Arrangements: Home (with boyfriend and children) Born In: [place] Highest Grade Completed: G.E.D. Employment Status: Unemployed Marital Status: ( from ex- - living with boyfriend of 1.5 years) Beliefs That Will Affect Care: None Patient History Medical History Hypertension (Chronic 07/15/12) Anxiety state, unspecified (Chronic 06/16/11) Alcohol abuse, unspecified (Resolved 07/15/12) Bipolar disorder (Chronic) Overdose of antipsychotic (Resolved) Pyelonephritis (Resolved) Suicidal ideation (Resolved) Cellulitis (Resolved) No known health problems Acute appendicitis (Resolved 12/25/12) Acute cholecystitis (Resolved) Surgical History History of appendectomy (Resolved 12/25/12) Cholecystostomy care History of dental surgery Tubal ligation status Family History Other No pertinent family history Social History Preferred Language: Polish Communication Ability: Effective System Technologist Required: No Beliefs That Will Affect Care: None marital status: Single Current Living Situation: Family and Significant Other current occupational status: unemployed current occupation: Prior employment at [employer] Other Information That Helps Us Care for You: No Feels Safe at Home: Yes Safety Concerns: Feels Safe At This Time Smoking Status: Heavy tobacco smoker Tobacco Type: cigarettes ; Cigarettes Per Day: half pack per day ; Do You Dip or Chew Tobacco: No ; Second Hand Exposure: Yes ; Tobacco Cessation Education Requested by Patient: No Hx Alcohol Use: Yes Alcohol type: hard liquor Hx Substance Use: Yes substance use type: marijuana and hallucinogens Last Used Substance: Days (ago) Last Used Substance Other:: Medical Marijuana yesterday. Hallucinogens 10 years ago Physical Exam Psychiatric: Orientation: alert, oriented x 3 and cooperative Apperance: a ppropriately dressed (in hospital gown), appropriately groomed and appeared stated age Obese-appearing female, seated in no acute distress. Dressed appropriately in hospital gown. Well-groomed with hair neatly pulled back in ponytail, wearing corrective lenses. Level of hygiene and hydration appears adequate. Eye Contact: good eye contact Motor Behavior: no abnormal motor movements (observed while sitting upright in bed) Speech: normal rate/rhythm/volume of speech Affect: euthymic affect Mood: no depressed mood and no anxious mood "Really, I've been pretty good." Thought Process: goal directed thought process, linear/logical thought process and clear/coherent thought process Thought Content: reality based without delusions Suicidal Thoughts: denies suicidal thoughts and denies suicidal intent Homicidal Thoughts: denies homicidal thoughts Hallucinations: no auditory hallucinations and no visual hallucinations Cognition: remote memory grossly intact, attention grossly intact and language grossly intact Estimated Intelligence: consistent with education level Insight: good insight Judgement: good judgement Vital Signs (Past 24 Hours): Last Vital Signs Temp 36.9 C 03/22/19 07:03 Pulse 92 H 03/22/19 07:03 Resp 18 03/22/19 07:03 BP 118/90 03/22/19 07:03 Pulse Ox 95 03/22/19 07:03 Review of Systems Constitutional: persistent headache Cardiovascular: denied Respiratory: reports occasional SOB with exertion Gastrointestinal: denied Neurological: reports ongoing dizziness and visual disturbance ("blurry vision") Psychiatric: denies symptoms other than stated above Total of at least 10 systems reviewed, pertinent positives as above and in HPI. Results & Data Medications Administered Acetaminophen (Tylenol) 650 mg PO Q4H PRN PRN Reason: Pain or Fever Stop: 04/20/19 08:15 Last Admin: 03/22/19 02:30 Dose: 650 mg Documented by: [id number] Aripiprazole (Abilify) 10 mg PO QPM [facility] Stop: 04/20/19 20:59 Last Admin: 03/21/19 20:07 Dose: 10 mg Documented by: [id number] Bupropion HCl (Wellbutrin-Sr) 100 mg PO DAILY [facility] Stop: 04/20/19 08:59 Last Admin: 03/22/19 07:41 Dose: 100 mg Documented by: [id number] Admin: 03/21/19 09:15 Dose: 100 mg Documented by: [id number] Clonazepam (Klonopin) 1 mg PO BID [facility] Stop: 04/20/19 08:59 Last Admin: 03/22/19 07:38 Dose: 1 mg Documented by: [id number] Admin: 03/21/19 20:20 Dose: 1 mg Documented by: [id number] Admin: 03/21/19 09:08 Dose: 1 mg Documented by: [id number] Enoxaparin Sodium (Lovenox) 40 mg SQ QAM [facility] Stop: 04/20/19 08:59 Last Admin: 03/22/19 07:38 Dose: 40 mg Documented by: [id number] Admin: 03/21/19 09:20 Dose: 40 mg Documented by: [id number] Folic Acid (Folvite) 1 mg PO QAM [facility] Stop: 04/20/19 08:59 Last Admin: 03/22/19 07:42 Dose: 1 mg Documented by: [id number] Admin: 03/21/19 09:16 Dose: 1 mg Documented by: [id number] Gabapentin (Neurontin) 600 mg PO Q8H [facility] Stop: 03/22/19 20:01 Last Admin: 03/22/19 03:49 Dose: 600 mg Documented by: [id number] Hydromorphone HCl (Dilaudid) 0.25 mg IV Q6H PRN PRN Reason: Pain Stop: 04/04/19 08:15 Last Admin: 03/21/19 17:53 Dose: 0.25 mg Documented by: [id number] Admin: 03/21/19 11:38 Dose: 0.25 mg Documented by: [id number] Promethazine HCl 12.5 mg/ (Sodium Chloride) 50.5 mls @ 202 mls/hr IV Q6H PRN PRN Reason: Nausea And Vomiting Stop: 04/20/19 08:15 Last Infusion: 03/21/19 09:29 Dose: 0 mls/hr Documented by: [id number] Admin: 03/21/19 09:14 Dose: 202 mls/hr Documented by: [id number] Irbesartan (Avapro) 300 mg PO DAILY [facility] Stop: 04/20/19 07:04 Last Admin: 03/22/19 07:40 Dose: 300 mg Documented by: [id number] Admin: 03/21/19 09:09 Dose: 300 mg Documented by: [id number] Labetalol HCl (Normodyne) 200 mg PO TID [facility] Stop: 04/20/19 20:59 Last Admin: 03/22/19 07:42 Dose: 200 mg Documented by: [id number] Admin: 03/21/19 20:13 Dose: 200 mg Documented by: [id number] Lamotrigine (Lamictal) 75 mg PO QAM [facility] Stop: 04/20/19 08:59 Last Admin: 03/22/19 07:41 Dose: 75 mg Documented by: [id number] Admin: 03/21/19 09:15 Dose: 75 mg Documented by: [id number] Meclizine HCl (Antivert) 25 mg PO Q6H PRN PRN Reason: Dizziness or Vertigo Stop: 04/20/19 16:28 Last Admin: 03/21/19 17:18 Dose: 25 mg Documented by: [id number] Miscellaneous (Remove Nicoderm Patch) 1 ea N/A [facility] Stop: 04/20/19 20:59 Last Admin: 03/21/19 20:10 Dose: 1 ea Documented by: [id number] Miscellaneous (Remove Nicoderm Patch) 1 ea N/A [facility] Stop: 04/20/19 20:59 Last Admin: 03/21/19 20:16 Dose: Not Given Documented by: [id number] [facility] [place]: 04/20/19 08:59 Last Admin: 03/22/19 07:38 Dose: 1 tab Documented by: [id number] Admin: 03/21/19 09:16 Dose: 1 tab Documented by: [id number] Nicotine (Nicoderm Cq) 14 mg TD [facility] Stop: 04/20/19 13:29 Last Admin: 03/22/19 07:38 Dose: 14 mg Documented by: [id number] Admin: 03/21/19 14:48 Dose: 14 mg Documented by: [id number] Oxycodone HCl (Roxicodone Immediate Rel) 5 mg PO Q4H PRN PRN Reason: Pain Stop: 04/04/19 08:15 Last Admin: 03/21/19 16:53 Dose: 5 mg Documented by: [id number] Spironolactone (Aldactone) 50 mg PO DAILY [facility] Stop: 04/20/19 06:29 Last Admin: 03/22/19 07:40 Dose: 50 mg Documented by: [id number] Admin: 03/21/19 09:09 Dose: 50 mg Documented by: [id number] Thiamine HCl (Vitamin B-1) 100 mg PO [facility] Stop: 04/20/19 08:59 Last Admin: 03/22/19 07:41 Dose: 100 mg Documented by: [id number] Admin: 03/21/19 09:16 Dose: 100 mg Documented by: [id number]
--- NOTE | 2019-03-22 14:30 | Magnetic Resonance Report ---
MR brain wo con CLINICAL HISTORY: 33 years-old Female presenting with diplopia, HTN; r/o CVA. TECHNIQUE: Multisequence, multiplanar MR imaging of the brain was performed without the use of intrav enous contrast. IV contrast: None. COMPARISON: Noncontrast CT head performed the previous day as well as MR brain from 12/01/2018. FINDINGS: Localizer images: Unremarkable. Normal midline sagittal structures. Ventricles and sulci normal in size. No restricted diffusion or h emorrhage. Brain parenchyma normal in appearance with preserved goncalves-white differentiation. No mass e ffect or midline shift. No extra-axial fluid collection. T2 skull base flow voids preserved. Bone marrow signal intensity within the calvarium within normal limits. IMPRESSION: 1. No acute intracranial abnormality. Electronically signed by: Quinn Edwards M.D. 03/22/2019 2:29 PM
--- NOTE | 2019-03-22 15:35 | Neurology Consultation ---
Date of Consultation March 22, 2019 Assessment & Plan (1) Monocular diplopia of left eye: 1. MRI no acute findings 2. TTE- no ASD 3. CTA head and neck - ordered 4. optimize HTN, HLD, DM LDL <70 5. may be complex migraine increased with HTN and drug use- which she denies 6. ophthalmology - for further evaluation of vision (2) Headache: 1. avoid narcotics 2. tylenol for now will address further management if needed. Supervising Physician Co-Signing Physician Notes I have seen and discussed above patient with Dr Manjit Oliveros, neurology I have seen and examined this young woman Thalia Johnson PA-C and I reviewed some of her prior history which includes recurrent episodes of similar neurologic dysfunction associated with headache and hypertension Currently her drug screens suggests potential use of methamphetamine among other stimulants, she was significantly hypertensive on admission, has a 24 to 48-hour history of headaches and diplopia on left lateral gaze along with variable and migratory paresthesias without lateralizing consistency and exam that shows it most suggestion of a mild left lateral rectus insufficiency Imaging studies thus far show no evidence for brainstem ischemia or indeed any other significant vascular events Her blood pressure is better, her headaches are improving and at this point I am simply go diagnose a potential complicated migraine perhaps related to excessive catecholamine ingestion and perhaps a hypertensive urgency of sorts without any significant findings to suggest a reversible vasoconstrictive syndrome This may be a "hypertensive" partial left lateral rectus palsy and at this point I am simply recommend doing that we observe it and consider getting ophthalmology to assess that if her symptoms persist in the morning and her exam still reveals what appears to be a partial and very minor left lateral rectus weakness Manjit Oliveros MD History of Present Illness Reason for Consultation: diplopia Requesting Physician: Yoshi Corado MD Attending Physician: Yoshi Corado MD History of Present Illness Brigette is a 33 year old female that presents to the ED via ambulance accompanied by male with complaints of "chest pressure". Around 10 PM she began with sensation that her blood pressure was starting to elevate and felt as though she was going "cross eyed". She feels as if someone is sitting on her chest with pain radiating down the left arm. She has associated dizziness and some minimal nausea. She was given nitroglycerin, aspirin and Zofran in route. She notes that she has a history of admission to the hospital for evaluation of elevated blood pressure in the past. She has a history of PE following a without any current anticoagulation use. She notes that she is taking a 3 medication regimen for her blood pressure and has been compliant. She denies any drug use. Allergies Allergy/AdvReac Type Severity Reaction Status Date / Time nut - unspecified Allergy Severe Anaphylaxis Verified 03/21/19 02:58 Penicillins Allergy Severe CAN'T Verified 03/21/19 02:58 BREATH tree nut Allergy Severe Anaphylaxis Verified 03/21/19 02:58 morphine Allergy Intermediate hives Verified 03/21/19 02:58 mushroom Allergy Intermediate HIVES Verified 03/21/19 02:58 Home Medications Home Medications Medication Instructions Recorded Confirmed Type aripiprazole 10 mg PO QPM 05/13/18 03/21/19 History epinephrine [EpiPen] 0.3 mg IM Q3H PRN 05/13/18 03/21/19 History irbesartan 150 mg PO DAILY 11/07/18 03/21/19 History Vyvanse 30 mg PO DAILY 12/01/18 03/21/19 History bupropion HCl 100 mg PO DAILY 12/01/18 03/21/19 History clonidine HCl 0.1 mg PO TID 12/01/18 03/21/19 History spironolactone 50 mg PO DAILY 12/01/18 03/21/19 History prazosin [Minipress] 3 mg PO HS 03/21/19 03/21/19 History benztropine 0.5 mg PO HS 03/22/19 03/22/19 History clonazepam 0.5 mg PO HS 03/22/19 03/22/19 History clonazepam 1 mg PO DAILY PRN 03/22/19 03/22/19 History eszopiclone [Lunesta] 1 mg PO HS 03/22/19 03/22/19 History lamotrigine [Lamictal] 75 mg PO DAILY 03/22/19 03/22/19 History Patient History Social History Preferred Language: Japanese Communication Ability: Effective Musculoskeletal Physiotherapist Required: No Beliefs That Will Affect Care: None marital status: Single Current Living Situation: Family and Significant Other current occupational status: unemployed current occupation: Prior employment at [employer] Other Information That Helps Us Care for You: No Feels Safe at Home: Yes Safety Concerns: Feels Safe At This Time Smoking Status: Heavy tobacco smoker Tobacco Type: cigarettes ; Cigarettes Per Day: half pack per day ; Do You Dip or Chew Tobacco: No ; Second Hand Exposure: Yes ; Tobacco Cessation Education Requested by Patient: No Hx Alcohol Use: Yes Alcohol type: hard liquor Hx Substance Use: Yes substance use type: marijuana and hallucinogens Last Used Substance: Days (ago) Last Used Substance Other:: Medical Marijuana yesterday. Hallucinogens 10 years ago Physical Exam Physical Exam: Physical Exam: Constitutional: appearance over nourished, healthy Ears, Nose, Mouth and Throat: mucous membranes moist, no injection and skin normal, eyes normal Cardiovascular: normal S-1 and S-2 and regular rate and rhythm Respiratory: clear to auscultation (CTA) and no rales, rhonchi or wheeze Musculoskeletal: no peripheral edema and good distal pulses Skin: no stigmata of neurocutaneous disease noted and normal and intact Eyes: soft left lateral 6th nerve and pupils equal, round and reactive to light (PERRL) NEUROLOGIC EXAMINATION: Mental status: Alert and interactive Oriented to full date and location Oriented to person Speech fluent with no evidence of aphasia Cranial Nerves smile eye brow raise symmetric Reflexes: Deep tendon reflexes were symmetrical and graded 2/5. Sensory: to light and cool touch Coordination: Romberg absent Gait/Stance: Posture normal. sitting up in bed Motor: Negative for pronator drift of out stretched arms with eyes closed. 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 TTE EF 55-60% no ASD
[2019-03-22] MEDS ORDERED: OPTIRAY 320 125ml IV PRN (16:51)
--- NOTE | 2019-03-22 17:12 | CT Scan Report ---
CT angio neck with con CLINICAL HISTORY: 33 years-old Female with diplopia left r/o occlusion. Acute headache with double vision COMPARISON STUDY: CTA had of same day TECHNIQUE: Following the IV administration of 120 mL of Optiray 320, CT angiogram of the neck was per formed from the aortic arch to the skull base. Images are reviewed in the axial, sagittal, and talley l planes. 3-D MIPS images are created and assessed. IV contrast was administered without complication . All measurements were calculated based on NASCET criteria. A dose lowering technique was utilized adhering to the principles of ALARA. CT DOSE: 1161.17 mGy.cm FINDINGS: The imaged opacified pulmonary tree all tree is unremarkable. The left vertebral artery origin direct ly from the aortic arch. Imaged bilateral subclavian arteries appear patent. The bilateral common car otid arteries appear normal and are widely patent. Bilateral internal carotid arteries also appear to be normal and are widely patent. The vertebral arteries are codominant and appear to be within alverto l limits. Basilar artery is patent and appears unremarkable. Lung apices appear clear. Mild nonspecific bilateral bronchial wall thickening. Soft tissues appear u nremarkable. Bones appear to be intact. IMPRESSION:Unremarkable CTA of the neck. The above report was generated using voice recognition software. It may contain grammatical, syntax o r spelling errors. Electronically signed by: Jasiel Armas M.D. 03/22/2019 5:10 PM
--- NOTE | 2019-03-22 17:13 | CT Scan Report ---
CT OF THE HEAD WITHOUT CONTRAST AND CTA OF THE HEAD CLINICAL HISTORY: diplopia left r/o occlusion COMPARISON STUDY: MRI of the brain March 22, 2019. Head CT March 31, 2019. TECHNIQUE: Unenhanced and arterial phase imaging of the head was performed. Intravenous injection of 120 cc Optiray 320 IV was uneventful. Sagittal and coronal reconstructions were viewed as well as max imal intensity projections on an independent 3-D workstation. Automated exposure control was utilized for the study. A dose lowering technique was utilized adhering to the principles of ALARA. FINDINGS: No acute intracranial hemorrhage, midline shift or mass effect is present. Brain volume is normal. Ventricular system is normal. The basilar cisterns are patent. There are no extra-axial colle ctions. Lucas-white differentiation is maintained. There are no findings to suggest acute dural sinus thrombosis or acute territorial infarct. There are no calvarial abnormalities. The bilateral M1, M2, A1 and A2 segments are patent. There is no abrupt vessel cut off, stenosis or a neurysm within the intracranial circulation. There is persistence of the left posterior cerebra l artery and a large right posterior communicating artery. There is an anterior communicating artery. IMPRESSION: 1. No acute intracranial findings. 2. Normal CTA of the head. Electronically signed by: Mo Alston M.D. 03/22/2019 5:12 PM
[2019-03-22] MEDS ORDERED: AMLODIPINE BESYLATE 5 MG TAB PO ONE (17:19)
[2019-03-22] MEDS: ARIPiprazole 10 MG TAB PO SCH (19:51)
[2019-03-22] MEDS: OXYCODONE HCL IR 5 MG TAB (IMMEDIATE RELEASE) PO PRN (20:19)
[2019-03-23] MEDS: ACETAMINOPHEN 325 MG TAB PO PRN (01:57)
[2019-03-23] MEDS: OXYCODONE HCL IR 5 MG TAB (IMMEDIATE RELEASE) PO PRN (03:51)
[2019-03-23] MEDS ORDERED: GABAPENTIN 600 MG TAB PO SCH (08:00)
[2019-03-23] MEDS ORDERED: AMLODIPINE BESYLATE 5 MG TAB PO SCH (09:00)
[2019-03-23] MEDS: lamoTRIgine 25 MG TAB PO SCH (09:18)
[2019-03-23] MEDS: FOLIC ACID 1 MG TAB PO SCH (09:18)
[2019-03-23] MEDS: SPIRONOLACTONE 25 MG TAB PO SCH (09:18)
[2019-03-23] MEDS: THIAMINE HCL 100 MG TAB PO SCH (09:18)
[2019-03-23] MEDS: IRBESARTAN 150 MG TAB PO SCH (09:18)
[2019-03-23] MEDS: LABETALOL HCL 200 MG TAB PO SCH (09:19)
[2019-03-23] MEDS: BuPROPion SR 100 MG TABCR PO SCH (09:19)
[2019-03-23] MEDS: NICOTINE 14 MG/24 HR PATCH TD SCH (09:19)
[2019-03-23] MEDS: MULTIVITAMIN TAB PO SCH (09:19)
[2019-03-23] MEDS: ENOXAPARIN INJ 40 MG/0.4 ML SYR SQ SCH (09:20)
[2019-03-23] MEDS: clonazePAM 1 MG TAB PO SCH (09:24)
--- NOTE | 2019-03-23 13:42 | Discharge Summary ---
Date of Service March 23, 2019 Admission HPI Per Admitting Provider Brigette Patel is a 33-year-old female admitted medically on 03/21/19 due to chest pain, visual disturbances, and dizziness. Pt developed hypertensive urgency and was admitted from the ED for closer observation and treatment. Psychiatric consultation is requested in order to evaluate medication regimen, as concern medications may be contributing to hypertensive episodes. Pt states this is her 5th admission for hypertension since 05/2018, and she is rather concerned that these events continue to occur. Pt's case was reviewed with psychiatric nurse liaison and psychiatrist prior to evaluation of the patient. Pt was agreeable to encounter and was cooperative for the duration of conversation. Pt states, "it's my blood pressure, I don't know what's going on." We reviewed her current medication regimen, which is accurate with the exception of Lunesta 1mg being added about 2 weeks ago to assist with sleep. Pt states that other than difficulty sleeping, she is "really comfortable with my medications." Pt has reportedly been seeing Xiomy Lopez PA-C for psychiatric medication adjustments for quite some time, and states, "I haven't had a manic episode in 2 or 3 years." Pt reports diagnoses of bipolar disorder, PTSD, anxiety, ADHD, and OCD. She states that she had been doing well until her ex- was released from [facility] and she acquired a PFA. Clonazepam was started at that time, with intent to taper the medication after this acute stressor. Pt reports that her boyfriend manages her medications; keeping them in a lock box and providing them to the patient at scheduled times. Pt states, "I'm a recovering addict, I've been super hesitant to even accept medications that can be addictive, but the clonazepam has been really helpful." Pt states that she has been taking this current regimen of psychotropic medications for at least the past 6 months, with no difficulties. She states the concern for her hypertensive episodes have been explored with her outpatient psychiatrist as well, with no imminent concern for their direct contribution. Pt does have her medical marijuana card, but states this behavior is unchanged as well. Pt reports consumption of about 1 glass of wine or 1 wine cooler weekly. She denies alcohol dependence. Pt denies use of illicit substances since 2013. Pt denies SI, HI, SIB, A/V hallucinations, paranoia, hector/hypomania, eating disorder, and other specific psychiatric symptoms. Principal Diagnosis Hypertensive urgency Discharge Exam GENERAL: No sign of distress, HEENT: Sclera nonicteric, pink-purple bilateral equal reactive to light extraocular muscle intact Normal oral mucosa, neck: No JVD, no thyromegaly, trachea midline Lungs: Clear to auscultate, no wheeze or rales Cardiovascular: Regular S1 and S2, no murmur or gallop, no JVD, no lower extremity edema Abdomen: Soft, nontender, bowel sounds active, no hepatosplenomegaly Extremities: No rash or deformity, normal joint, Neuro: No focal neurological deficit, no dysarthria, no facial droop Psych: Alert awake oriented x3: Euthymic Skin: No rash LYMPH NODES: No cervical lymphadenopathy Discharge Data Allergies Allergy/AdvReac Type Severity Reaction Status Date / Time nut - unspecified Allergy Severe Anaphylaxis Verified 03/21/19 02:58 Penicillins Allergy Severe CAN'T Verified 03/21/19 02:58 BREATH tree nut Allergy Severe Anaphylaxis Verified 03/21/19 02:58 morphine Allergy Intermediate hives Verified 03/21/19 02:58 mushroom Allergy Intermediate HIVES Verified 03/21/19 02:58 Consultations 03/21/19 06:09 ED Decision to Admit Stat 03/21/19 14:55 Consult Psychiatry Routine 03/21/19 15:02 Consult Nephrology Routine 03/22/19 14:46 Consult Neurology Routine Ordered Studies 03/21/19 04:19 CT head/brain wo con Urgent 03/22/19 10:26 MR brain wo con Stat 03/22/19 15:51 CT angio head wo/w Routine CT angio neck with con Routine Hospital Course (1) Chest pain: Secondary to hypertensive urgency Symptom has resolved after adjustment of BP meds, with controlled blood pressure --History of uncontrolled hypertension Follows with [facility], Dr. Ramana Thomas --Presented with chest pressure sensation associated with uncontrolled blood pressure, systolic 180s --Usually takes irbesartan 150 mg p.o. daily, clonidine 0.1 mg 3 times daily, prazosin 3 mg p.o. daily, Aldactone 50 mg p.o. daily BP meds has been adjusted, clonidine and prazosin discontinued Added labetalol -- Troponins negative x 2 D Dimer negative denies using illicit substances-tox screen positive for methamphetamine takes Vyvanse for ADHD resumed Concern for possible obstructive sleep apnea causing hypertensive episodes Nocturnal pulse oximetry shows no significant desaturation Alcohol usage --Patient reports she she drinks 2 to 3 cups of wine a few times a week, can finish 1 bottle in 1 week she says she does not drink alcohol every day, last drink Thursday -- no overt signs of alcohol withdrawal continue Gabapentin protocol --May be contributing to hypertension, patient counseled to limit and eventually discontinue alcohol usage Positive Urine Drug Screen -- (+) MDMA, Metamphetamine, Marijuana patient reports she uses medical marijuana patient denies using illicit drugs --False positive from Vyvanse? Psych consulted Appreciate input History of seizure DSO versus pseudoseizure -- follows with Neurology service --Consulted neurology for headache with visual disturbance Detail neuroimaging: MRI brain, CTA of head and neck, normal study Patient reports today resolution of her headache and blurred vision Since she was using contacts lenses which she took them off and using glasses, does not have any visual disturbances since Hypokalemia -- replaced mood disorder, at baseline as per patient -- Psych consulted for medication review States her mood is stable overall hx PE status post anti-coagulation -- on Lovenox for DVT prophylaxis Ongoing tobacco abuse -- counselling done, continue nicotine patch DVT prophylaxis. Lovenox subcu given history of thromboembolism in the past Full code (2) Hypertensive urgency: Resented with chest pain chest heaviness secondary to hypertensive urgency Admission SBP was elevated more than 180 Blood pressure much improved after adjustment of BP meds Appreciate input from nephrology Irbesartan increased to 300mg po daily-was on 150 mg by mouth daily Added Amlodipine 10mg po daily Added labetalol 200 mg p.o. 3 times daily Patient will continue with Aldactone 50 mg daily Clonidine discontinued: As it can cause rebound hypertension/prazosin discontinued --Today blood pressure is significantly improved BP in AM 120/[address] Alvarado Patient will be discharged today on irbesartan 300 mg p.o. daily, labetalol 200 mg p.o. daily, amlodipine 10 mg p.o. daily Continue Aldactone 50 mg daily Nephrology follow-up in 2 weeks Disposition: Stable to be discharged home today Total Time Total Time Spent Total Time Spent (In Minutes): Approximately 45 minutes Total Time Includes: Examination of the Patient, Discharge Planning, Medication Reconciliation and Communication With Other Providers Discharge Plan Discharge Items Patient Disposition: Home - Self-Care Reason For Visit: CP, HTN URGENCY Discharge Diagnosis: HYPERTENSIVE URGENCY -uncontrolled high blood pressure Condition: Good Discharge Goals: Decrease discomfort and Therapeutic intervention Activity: Resume your previous activity Non-emergency contact: Primary Care Provider Call non-emergency contact if: you have any medication questions Follow-up/Referrals: Terry Kemp MD [Physician] - 03/28/19 2:55 pm Rob Alvarado MD [Physician] - (IN 4-6 WEEKS FOR FOLLOW UP BLOOD PRESSURE MANAGEMENT ) Diet: Low Sodium (2gm) Addtl Provider Instructions: HOSPITAL FOLLOW UP WITH DR TERRY KEMP ON Thursday03/28/19 AT 2 : [address] ELISSA PICKETT'S SCHEDULE IS FULL IT IS VERY IMPORTANT FOR YOU TO QUIT SMOKING TO REDUCE FUTURE RISK FOR STROKE , HEART ATTACK , KIDNEY DAMANGE FOLLOW UP WITH OPHTALOMOLOGY IN 1 WEEK NEPHROLOGY FOLLOW UP WITH DR ALVARADO IN 4-6 WEEKS FOR FOLLOW UP BLOOD PRESSURE MANAGEMENT NEW MEDICATIONS : NORVASC 10 MG -1 TAB DAILY -FOR HIGH BLOOD PRESSURE AVAPRO/IRBESARTAN 300 MG DAILY -FOR HIGH BLOOD PRESSURE ( DOSE INCREASED FROM 150 MG TO 300 MG -CAN TAKE 2 TABS OF PREVIOUS MEDS ) NEW MEDICATION SCRIPT IS SENT TO PHARMACY LABTALOL 200 MG TAB THREE TIMES DAILY -FOR HIGH BLOOD PRESSURE LIMIT SALT IN YOUR DIET -WILL HELP TO CONTROL YOUR BLOOD PRESSURE DO NOT TAKE : CLONIDINE PRAZOSINE Prescriptions: New labetalol 200 mg Tablet 200 mg PO TID 30 Days Qty: 90 RF: 3 irbesartan 150 mg Tablet 300 mg PO DAILY 30 Days Qty: 60 RF: 3 amlodipine [Norvasc] 10 mg tablet 10 mg PO DAILY Qty: 30 RF: 3 Continued bupropion HCl 100 mg tablet sustained-release 12 hr 100 mg PO DAILY RF: 0 spironolactone 50 mg Tablet 50 mg PO DAILY RF: 0 Vyvanse 30 mg capsule 30 mg PO DAILY RF: 0 clonazepam 0.5 mg Tablet 0.5 mg PO HS RF: 0 clonazepam 1 mg Tablet 1 mg PO DAILY PRN (Reason: Panic Attack(S)) RF: 0 lamotrigine [Lamictal] 25 mg Tablet 75 mg PO DAILY RF: 0 benztropine 0.5 mg Tablet 0.5 mg PO HS RF: 0 eszopiclone [Lunesta] 1 mg Tablet 1 mg PO HS RF: 0 epinephrine [EpiPen] 0.3 mg/0.3 mL Auto-Injector 0.3 mg IM Q3H PRN (Reason: Allergic Reaction) RF: 0 aripiprazole 10 mg Tablet 10 mg PO QPM RF: 0 Discontinued clonidine HCl 0.1 mg Tablet 0.1 mg PO TID RF: 0 prazosin [Minipress] 1 mg Capsule 3 mg PO HS RF: 0 irbesartan 150 mg tablet 150 mg PO DAILY RF: 0 Stand-Alone Forms: Call Back Authorization, [facility] Discharge Orders: Discharge Order (Routine); Ordered 03/23/19 Ordered By: Leidy Ch Admission Data Admit Date/Time: 03/22/19 19:46 Attending Provider: Leidy Ch Admit Provider: Juan Pablo Quiroz Primary Care Provider: Elissa Pickett Other Providers: Deirdre Wynne Japheth E. ; Juan Pablo Quiroz ; Manjit Oliveros ; Yoshi Corado Service: Telemetry Other Interventions: Discharge Summary Assessment (RN) Last Done: 03/23/19 11:16 DC Date/Time DO NOT enter until pt leaves facility: 03/23/19 12:47
--- NOTE | 2019-03-23 15:29 | Nephrology Progress Note ---
Date of Service March 23, 2019 Assessment & Plan (1) Hypertensive urgency: Patient with hypertensive urgency. It appears patient has had hypertension for a long time. This could be secondary hypertension given young age of onset. She also has hypokalemia and could have primary hyperaldoste ronism. She is currently on Aldactone which can interfere with assay. Blood pressure is controlled on current regimen. consider additional work-up for secondary hypertension as out patient. Patient can be discharged on current regimen. Care cordinated with Dr. Ch. She will need nephrology follow up in 2 weeks. (2) Headache: Patient with headache unclear if this is due to the hypertension or she has other forms of primary headache such as migraine. Headache resolved. Continue supportive management for the headache and Zofran as needed for nausea. Subjective Patient seen this morning during rounds in follow up. No headache of dizziness. BP is controlled. Patient eager to go home. Review of Systems Review of Systems: All systems reviewed & are unremarkable except as noted in HPI & below Physical Exam Physical Exam: General exam: Appears comfortable, no acute distress HEENT: Pupils are equal and reactive to light Neck: No JVD, neck is supple trachea is midline Respiratory system: Clear breath sounds bilaterally. Gastrointestinal: Abdomen is soft, non distended, non tender, bowel sounds are present CVS: Regular rate and rhythm. No murmurs, rubs or gallops Musculoskeletal: No joint or muscle tenderness Extremities: Non tender, no edema, peripheral pulses are present Neuro: Oriented, no tremors, no focal neurological deficits Skin: No rashes Results & Data Vital Signs (Past 12 Hours) Vital Signs Temp Pulse Pulse Resp BP BP Pulse Ox 03/23/19 11:16 36.8 C 94 H 82 17 164/119 H 125/80 95 03/23/19 07:11 36.8 C 82 17 125/80 95 03/23/19 03:43 37.0 C 84 17 113/78 96
[2019-03-23 15:37] LABS: Amphetamine Urine, Confirm 5420 NG/ML (CUTOFF=250); Marijuana Quant, GCMS Urine 48 NG/ML (CUTOFF=5); Methamphetamine, Ur Confirm NEGATIVE NG/ML (CUTOFF=250)
[2019-03-24] MEDS ORDERED: GABAPENTIN 600 MG TAB PO SCH (08:00)
== END 2019-03-23 12:47 | disposition home or self-care (01) | DRG 305 ==
LOC: ED 02:29 → 2S 02:29 → 2E 11:42 → SUATTDRO 03-22 19:46

== ENCOUNTER 2020-09-12 18:32 | Observation (INO) ==
[~2020-09-12 18:32] MED LIST changes: -ARIP2TAB3 PO; -LISD30CA4 PO; +OPTIRAY 320 125ml IV ONE
--- NOTE | 2020-09-12 18:47 | CT Scan Report ---
CT SCAN OF THE BRAIN WITHOUT IV CONTRAST CLINICAL HISTORY: Strokelike symptoms. COMPARISON STUDY: CT of the brain dated 03/22/2019. TECHNIQUE: Unenhanced axial CT scan of the brain is performed from the vertex to the skull base. A d ose lowering technique was utilized adhering to the principles of ALARA. FINDINGS: Brain parenchyma: The brain parenchyma is normal in appearance. There is no hemorrhage, mass effect, or evidence of acute territorial ischemia by CT criteria. Lucas-white matter differentiation is preser gregor. No extra-axial fluid collection is seen. Ventricles, sulci, cisterns: Normal in configuration. Intracranial vasculature: The visualized intracranial vasculature at the skull base is normal in appe arance. Calvarium: Unremarkable. Sinuses and mastoids: The visualized paranasal sinuses are clear. The mastoid air cells are well pneu matized. Orbits: The bony orbits are grossly intact. IMPRESSION: There is no hemorrhage, mass effect, or evidence of acute territorial ischemia by CT lilit gely. ACT 112: Negative or not required by law. Electronically signed by: Rakesh Sarabia M.D. 09/12/2020 6:46 PM
--- NOTE | 2020-09-12 18:49 | Emergency Department Note ---
Impression & Plan Stroke-like symptom, Headache, Elevated blood pressure reading, Alcohol intoxication ED Provider Note NAME: CECILIA NIEVES AGE: 34 SEX: F : 1985 ARRIVES VIA: Ambulance INFORMANT: Patient, prehospital personnel ED PROVIDER(S): Tucker Salgado DO CHIEF COMPLAINT: Headache HPI: The patient is a 34-year-old female who presented to the emergency department via ambulance for a stroke alert. The patient was noted to have a severe headache but prior to the onset of the headache she states that she started noticing weakness on her right side. She was driving home from work. She states that she has a history of hypertension and has been compliant with all of her outpatient medications. She also has a history of alcohol abuse. She denies having any nausea or vomiting at this time. She does complain of a severe headache which is on the top of her head. She denies having any trauma or neck pain. She states that her significant other called 911 and she presented to the emergency department and was made a stroke alert prior to arrival. At this time she states that her symptoms are mildly improved but still complains of severe headache as well as right-sided weakness. She states that she had similar symptoms in the past that was determined to be secondary to her elevated blood pressure. She denies having any history of head bleeding. She does not take any blood thinners at this time. She states her symptoms are moderate at this time. She states her headache is severe at this time. ROS: See above HPI for pertinent positives & negatives. A total of 10 systems reviewed and were otherwise negative. PAST MEDICAL HISTORY: See Below PAST SURGICAL HISTORY: See Below FAMILY HISTORY: See Below SOCIAL HISTORY: See Below HOME MEDICATIONS: See Below ALLERGIES: See Below VITALS: See Below PHYSICAL EXAMINATION: GENERAL: Patient is awake alert in no acute distress patient is resting comfortably and showing no signs of anxiety EYES: The conjunctivae are clear. The pupils are round and reactive. EARS, NOSE, MOUTH AND THROAT: The nose is without any evidence of any deformity. NECK: The neck is nontender and supple. RESPIRATORY: Normal respiratory effort is noted there is no evidence of wheezing rhonchi or rales CARDIOVASCULAR: Regular rate and rhythm noted there no murmurs rubs or gallops normal S1 normal S2. GASTROINTESTINAL: The abdomen is soft. Abdomen is nontender. MUSCULOSKELETAL/EXTREMITIES: There is no evidence of gross deformity full range of motion is noted in the hips and shoulders. SKIN: There is no obvious evidence of any rash. There are no petechiae, pallor or cyanosis noted. NEUROLOGIC: The patient is awake alert and oriented x3. The patient does have a left-sided facial droop with forehead sparing. 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 There is no drift in the upper extremities. Patient is able to hold the left leg off of the bed for greater than 5 seconds. The patient is only able to hold the right leg off the bed for less than 5 seconds. MEDICAL DECISION MAKING: The patient is a 34-year-old female who presented to the emergency department for an evaluation of strokelike symptoms. The patient was made a stroke alert prior to arrival. She had significant right-sided weakness and reported left facial droop with a very elevated blood pressure. The patient was evaluated by the telestroke neurologist from [facility]. She does not appear to be a candidate for TPA given her blood pressure as well as her rapidly improving symptoms. She was reevaluated multiple times. I discussed the patient's laboratory and radiographic studies with her. Ultimately she continued to have elevated blood pressure and there was concern that she may require further inpatient management. I discussed the patient's condition with the on-call [facility] hospitalist. She was treated with IV antihypertensive medication. She was also ordered pain medication by the inpatient group. Triage Nursing notes reviewed. Prior medical records reviewed Vital Signs: reviewed and remarkable for elevated blood pressure. Differential diagnosis: Infection, dehydration, metabolic abnormality, hypo/hyperglycemia, electrolyte disturbance, anemia, hypoxia, cardiac sources, intracerebral event, toxicologic, neurologic, as well as other pathologies. ER treatment provided: See below Diagnostics interpreted by me: ECG: EKG was obtained in the emergency department. My interpretation is sinus tachycardia at 108 bpm. There was no ectopy. There is no acute ST segment abnormalities noted. This was compared to a tracing from April 142018. No significant changes were noted. Cardiac Monitoring: An order was placed for continuous cardiac monitoring. The monitor shows a rate of 110 bpm with sinus tachycardia rhythm. Laboratory studies: As stated above and show below. Imaging studies: See below Consultation(s): 1854: I discussed this case with Dr. Christianson who is on-call for the telestroke neurologist at [facility]. He will evaluate the patient using the telestroke cart. I discussed this case with Dr. You who is on-call for the [facility] list group. He will evaluate the patient in the emergency department ED COURSE: Procedures: none PDMP:reviewed and no issues Critical Care: I have personally spent greater than 45 minutes of critical care time in the direct management of this patient. This includes bedside care, interpretation of diagnostic studies, and testing, discussion with consultants, patient, and family members, and other required patient management activities. This 45 minutes is in excess of all separately billable procedures. Past Med/Surg History Medical History (Updated 09/12/20 @ 21:49 by Tucker Salgado DO) Acute appendicitis (12/25/12) Acute cholecystitis Alcohol abuse, unspecified (07/15/12) Anxiety state, unspecified (06/16/11) Bipolar disorder Cellulitis Hypertension (07/15/12) No known health problems Overdose of antipsychotic Pyelonephritis Suicidal ideation Surgical History Cholecystostomy care History of appendectomy (12/25/12) History of dental surgery Tubal ligation status Family History Other No pertinent family history Social History Smoking Status: Current every day smoker Tobacco Type: Cigarettes Cigarettes Per Day: half pack per day; Second Hand Exposure: Yes; Hx Alcohol Use: Yes Alcohol type: hard liquor Hx Substance Use: Yes Last Used Substance: Days (ago) Last Used Substance Other:: Medical Marijuana yesterday. Hallucinogens 10 years ago Preferred Language: [place] Communication Ability: Effective Director Pharmacovigilance Required: No Beliefs That Will Affect Care: None marital status: Single Current Living Situation: Family and Significant Other current occupational status: unemployed current occupation: Prior employment at [employer] Feels Safe at Home: Yes Assistive Devices: Contacts and Glasses Allergies Allergies Allergy/AdvReac Type Severity Reaction Status Date / Time nut - unspecified Allergy Severe Anaphylaxis Verified 09/12/20 20:03 Penicillins Allergy Severe Difficulty Verified 09/12/20 20:03 Breathing tree nut Allergy Severe Anaphylaxis Verified 09/12/20 20:03 morphine Allergy Intermediate Hives Verified 09/12/20 20:03 mushroom Allergy Intermediate Hives Verified 09/12/20 20:03 Home Meds Home Medications Medication Instructions Recorded Confirmed epinephrine [EpiPen] 0.3 mg IM DIRECTED PRN 05/13/18 09/12/20 spironolactone 50 mg PO QAM 12/01/18 09/12/20 benztropine 0.5 mg PO HS 03/22/19 09/12/20 benzonatate [Tessalon Perles] 100 mg PO TID PRN 10/18/19 09/12/20 carvedilol 25 mg PO BID 10/18/19 09/12/20 lisinopril 10 mg PO DAILY 10/18/19 09/12/20 mirtazapine 15 mg PO HS 10/18/19 09/12/20 Previous Rx's Medication Instructions Recorded amlodipine [Norvasc] 10 mg PO DAILY #30 tab 03/23/19 Results & Data (ED) Vital Signs Vital Signs - 24 hr 09/12/20 18:45 09/12/20 19:12 09/12/20 20:24 Temperature 37.0 C Temperature Source Oral Pulse Rate 107 H Pulse Rate [Right Finger] 100 H 90 Respiratory Rate 21 16 Respiratory Effort / Characteristics Non-Labored Respiratory Depth Normal Normal Respiratory Pattern Regular Blood Pressure 190/132 H Blood Pressure [Right Arm] 164/135 H 176/119 H Blood Pressure Mean 151 Blood Pressure Mean [Right Arm] 144 138 Blood Pressure Position Sitting Blood Pressure Position [Right Arm] Lying Pulse Oximetry 95 98 97 Oxygen Delivery Method Room Air Room Air Room Air Sepsis Recent Fever Within 48 Hours No Sepsis New/Unexplained Change in Mental Status No Sepsis Action Taken by Nursing Physician Notified Home Medications Current Medication List: was personally reviewed by me Laboratory Data Attestation: I reviewed the patient's lab results. Result diagrams: 09/12/20 18:54 09/12/20 18:54 Lab Results 09/12/20 09/12/20 09/12/20 Range/Units 18:54 18:54 18:54 WBC 8.06 (4.8-10.8) K/uL RBC 4.95 (4.2-5.4) M/uL Hgb 15.3 (12.0-16.0) g/dL Hct 45.2 (37-47) % MCV 91.3 (80-100) fL MCH 30.9 (25-34) pg MCHC 33.8 (32-36) g/dL RDW Std Deviation 47.2 H (36.4-46.3) fL RDW Coeff of Carmen 14.2 (11.5-14.5) % Plt Count 265 (130-400) K/uL MPV 9.4 (7.4-10.4) fL Neutrophils % (Manual) 42.6 % Lymphocytes % (Manual) 31.3 % Reactive Lymphs % (Man) 23.5 % Monocytes % (Manual) 0.9 % Eosinophils % (Manual) 1.7 % Neutrophils # (Manual) 3.43 (1.4-6.5) K/uL Total Absolute Neuts 3.43 (1.4-6.5) K/uL Lymphocytes # (Manual) 2.52 (1.2-3.4) K/uL Reactive Lymphs # 1.89 K/uL Total Abs Lymphocytes 4.42 H (1.2-3.4) K/uL Monocytes # (Manual) 0.07 L (0.11-0.59) K/uL Eosinophils # (Manual) 0.14 (0-0.5) K/uL PT 10.6 (9.0-12.0) Seconds INR 1.0 (0.9-1.1) APTT 25.9 (21.0-31.0) Seconds PTT Ratio 0.9 Sodium 142 (136-145) mmol/L Potassium 4.3 (3.5-5.1) mmol/L Chloride 112 H (98-107) mmol/L Carbon Dioxide 20 L (21-32) mmol/L Anion Gap 10.0 (3-11) BUN 9 (7-18) mg/dl Creatinine 0.72 (0.6-1.2) mg/dl Est Cr Clr Drug Dosing 142.1 ml/min Est GFR ( Amer) 128.4 Est GFR (Non-Af Amer) 110.8 BUN/Creatinine Ratio 12.7 (10-20) Glucose 83 (70-99) mg/dl Calcium 8.6 (8.5-10.1) mg/dl Magnesium 2.5 H (1.8-2.4) mg/dl Total Bilirubin 0.3 (0.2-1) mg/dl AST 35 (15-37) U/L ALT 64 (12-78) U/L Alkaline Phosphatase 69 (45-117) U/L Troponin I < 0.015 (0-0.045) ng/ml Total Protein 8.0 (6.4-8.2) gm/dl Albumin 3.6 (3.4-5.0) gm/dl Globulin 4.4 H (2.5-4.0) gm/dl Albumin/Globulin Ratio 0.8 L (0.9-2) HCG, Quant mIU/ml Urine Color Urine Appearance (Clear) Urine pH (4.5-7.5) Ur Specific [place] (1.000-1.030) Urine Protein (Negative) Urine Glucose (UA) (Negative) Urine Ketones (Negative) Urine Blood (Negative) Urine Nitrite (Negative) Urine Bilirubin (Negative) Urine Urobilinogen (Negative) Ur Leukocyte Esterase (Negative) Urine WBC (Auto) (0-5) /hpf Urine RBC (Auto) (0-4) /hpf U Hyaline Cast (Auto) (0-5) /lpf U Epithel Cells (Auto) (0-5) /lpf Urine Bacteria (Auto) (Negative) Salicylates (2.8-20) mg/dl Urine Opiates Screen (Neg) Ur Methadone, Qual (Neg) Acetaminophen (10-30) ug/ml Urine Barbiturates (Neg) Ur Phencyclidine (PCP) (Neg) U Amphetamin/Meth Scrn (Neg) MDMA (Ecstasy) Screen (Neg) U Benzodiazepines Scrn (Neg) Ur Cocaine Metabolite (Neg) U Marijuana (THC) Screen (Neg) Ethyl Alcohol mg/dL (0-3) mg/dl COVID-19 Eval Order SARS-CoV-2, RNA, NAAT (NEGATIVE) 09/12/20 09/12/20 09/12/20 Range/Units 18:54 18:54 18:54 WBC (4.8-10.8) K/uL RBC (4.2-5.4) M/uL Hgb (12.0-16.0) g/dL Hct (37-47) % MCV (80-100) fL MCH (25-34) pg MCHC (32-36) g/dL RDW Std Deviation (36.4-46.3) fL RDW Coeff of Carmen (11.5-14.5) % Plt Count (130-400) K/uL MPV (7.4-10.4) fL Neutrophils % (Manual) % Lymphocytes % (Manual) % Reactive Lymphs % (Man) % Monocytes % (Manual) % Eosinophils % (Manual) % Neutrophils # (Manual) (1.4-6.5) K/uL Total Absolute Neuts (1.4-6.5) K/uL Lymphocytes # (Manual) (1.2-3.4) K/uL Reactive Lymphs # K/uL Total Abs Lymphocytes (1.2-3.4) K/uL Monocytes # (Manual) (0.11-0.59) K/uL Eosinophils # (Manual) (0-0.5) K/uL PT (9.0-12.0) Seconds INR (0.9-1.1) APTT (21.0-31.0) Seconds PTT Ratio Sodium (136-145) mmol/L Potassium (3.5-5.1) mmol/L Chloride (98-107) mmol/L Carbon Dioxide (21-32) mmol/L Anion Gap (3-11) BUN (7-18) mg/dl Creatinine (0.6-1.2) mg/dl Est Cr Clr Drug Dosing ml/min Est GFR ( Amer) Est GFR (Non-Af Amer) BUN/Creatinine Ratio (10-20) Glucose (70-99) mg/dl Calcium (8.5-10.1) mg/dl Magnesium (1.8-2.4) mg/dl Total Bilirubin (0.2-1) mg/dl AST (15-37) U/L ALT (12-78) U/L Alkaline Phosphatase (45-117) U/L Troponin I (0-0.045) ng/ml Total Protein (6.4-8.2) gm/dl Albumin (3.4-5.0) gm/dl Globulin (2.5-4.0) gm/dl Albumin/Globulin Ratio (0.9-2) HCG, Quant < 1 mIU/ml Urine Color Urine Appearance (Clear) Urine pH (4.5-7.5) Ur Specific [place] (1.000-1.030) Urine Protein (Negative) Urine Glucose (UA) (Negative) Urine Ketones (Negative) Urine Blood (Negative) Urine Nitrite (Negative) Urine Bilirubin (Negative) Urine Urobilinogen (Negative) Ur Leukocyte Esterase (Negative) Urine WBC (Auto) (0-5) /hpf Urine RBC (Auto) (0-4) /hpf U Hyaline Cast (Auto) (0-5) /lpf U Epithel Cells (Auto) (0-5) /lpf Urine Bacteria (Auto) (Negative) Salicylates 3.4 (2.8-20) mg/dl Urine Opiates Screen (Neg) Ur Methadone, Qual (Neg) Acetaminophen < 2 L (10-30) ug/ml Urine Barbiturates (Neg) Ur Phencyclidine (PCP) (Neg) U Amphetamin/Meth Scrn (Neg) MDMA (Ecstasy) Screen (Neg) U Benzodiazepines Scrn (Neg) Ur Cocaine Metabolite (Neg) U Marijuana (THC) Screen (Neg) Ethyl Alcohol mg/dL 233.8 H (0-3) mg/dl COVID-19 Eval Order SARS-CoV-2, RNA, NAAT (NEGATIVE) 09/12/20 09/12/20 09/12/20 Range/Units 19:42 19:42 20:04 WBC (4.8-10.8) K/uL RBC (4.2-5.4) M/uL Hgb (12.0-16.0) g/dL Hct (37-47) % MCV (80-100) fL MCH (25-34) pg MCHC (32-36) g/dL RDW Std Deviation (36.4-46.3) fL RDW Coeff of Carmen (11.5-14.5) % Plt Count (130-400) K/uL MPV (7.4-10.4) fL Neutrophils % (Manual) % Lymphocytes % (Manual) % Reactive Lymphs % (Man) % Monocytes % (Manual) % Eosinophils % (Manual) % Neutrophils # (Manual) (1.4-6.5) K/uL Total Absolute Neuts (1.4-6.5) K/uL Lymphocytes # (Manual) (1.2-3.4) K/uL Reactive Lymphs # K/uL Total Abs Lymphocytes (1.2-3.4) K/uL Monocytes # (Manual) (0.11-0.59) K/uL Eosinophils # (Manual) (0-0.5) K/uL PT (9.0-12.0) Seconds INR (0.9-1.1) APTT (21.0-31.0) Seconds PTT Ratio Sodium (136-145) mmol/L Potassium (3.5-5.1) mmol/L Chloride (98-107) mmol/L Carbon Dioxide (21-32) mmol/L Anion Gap (3-11) BUN (7-18) mg/dl Creatinine (0.6-1.2) mg/dl Est Cr Clr Drug Dosing ml/min Est GFR ( Amer) Est GFR (Non-Af Amer) BUN/Creatinine Ratio (10-20) Glucose (70-99) mg/dl Calcium (8.5-10.1) mg/dl Magnesium (1.8-2.4) mg/dl Total Bilirubin (0.2-1) mg/dl AST (15-37) U/L ALT (12-78) U/L Alkaline Phosphatase (45-117) U/L Troponin I (0-0.045) ng/ml Total Protein (6.4-8.2) gm/dl Albumin (3.4-5.0) gm/dl Globulin (2.5-4.0) gm/dl Albumin/Globulin Ratio (0.9-2) HCG, Quant mIU/ml Urine Color Yellow Urine Appearance Clear (Clear) Urine pH 6.5 (4.5-7.5) Ur Specific [place] 1.038 H (1.000-1.030) Urine Protein Trace H (Negative) Urine Glucose (UA) Negative (Negative) Urine Ketones Negative (Negative) Urine Blood Negative (Negative) Urine Nitrite Negative (Negative) Urine Bilirubin Negative (Negative) Urine Urobilinogen Negative (Negative) Ur Leukocyte Esterase Negative (Negative) Urine WBC (Auto) 1-5 (0-5) /hpf Urine RBC (Auto) 0-4 (0-4) /hpf U Hyaline Cast (Auto) 0 (0-5) /lpf U Epithel Cells (Auto) 10-20 H (0-5) /lpf Urine Bacteria (Auto) Negative (Negative) Salicylates (2.8-20) mg/dl Urine Opiates Screen Neg (Neg) Ur Methadone, Qual Neg (Neg) Acetaminophen (10-30) ug/ml Urine Barbiturates Neg (Neg) Ur Phencyclidine (PCP) Neg (Neg) U Amphetamin/Meth Scrn Neg (Neg) MDMA (Ecstasy) Screen Neg (Neg) U Benzodiazepines Scrn Neg (Neg) Ur Cocaine Metabolite Neg (Neg) U Marijuana (THC) Screen Neg (Neg) Ethyl Alcohol mg/dL (0-3) mg/dl COVID-19 Eval [facility] SARS-CoV-2, RNA, NAAT (NEGATIVE) 09/12/20 Range/Units 20:04 WBC (4.8-10.8) K/uL RBC (4.2-5.4) M/uL Hgb (12.0-16.0) g/dL Hct (37-47) % MCV (80-100) fL MCH (25-34) pg MCHC (32-36) g/dL RDW Std Deviation (36.4-46.3) fL RDW Coeff of Carmen (11.5-14.5) % Plt Count (130-400) K/uL MPV (7.4-10.4) fL Neutrophils % (Manual) % Lymphocytes % (Manual) % Reactive Lymphs % (Man) % Monocytes % (Manual) % Eosinophils % (Manual) % Neutrophils # (Manual) (1.4-6.5) K/uL Total Absolute Neuts (1.4-6.5) K/uL Lymphocytes # (Manual) (1.2-3.4) K/uL Reactive Lymphs # K/uL Total Abs Lymphocytes (1.2-3.4) K/uL Monocytes # (Manual) (0.11-0.59) K/uL Eosinophils # (Manual) (0-0.5) K/uL PT (9.0-12.0) Seconds INR (0.9-1.1) APTT (21.0-31.0) Seconds PTT Ratio Sodium (136-145) mmol/L Potassium (3.5-5.1) mmol/L Chloride (98-107) mmol/L Carbon Dioxide (21-32) mmol/L Anion Gap (3-11) BUN (7-18) mg/dl Creatinine (0.6-1.2) mg/dl Est Cr Clr Drug Dosing ml/min Est GFR ( Amer) Est GFR (Non-Af Amer) BUN/Creatinine Ratio (10-20) Glucose (70-99) mg/dl Calcium (8.5-10.1) mg/dl Magnesium (1.8-2.4) mg/dl Total Bilirubin (0.2-1) mg/dl AST (15-37) U/L ALT (12-78) U/L Alkaline Phosphatase (45-117) U/L Troponin I (0-0.045) ng/ml Total Protein (6.4-8.2) gm/dl Albumin (3.4-5.0) gm/dl Globulin (2.5-4.0) gm/dl Albumin/Globulin Ratio (0.9-2) HCG, Quant mIU/ml Urine Color Urine Appearance (Clear) Urine pH (4.5-7.5) Ur Specific [place] (1.000-1.030) Urine Protein (Negative) Urine Glucose (UA) (Negative) Urine Ketones (Negative) Urine Blood (Negative) Urine Nitrite (Negative) Urine Bilirubin (Negative) Urine Urobilinogen (Negative) Ur Leukocyte Esterase (Negative) Urine WBC (Auto) (0-5) /hpf Urine RBC (Auto) (0-4) /hpf U Hyaline Cast (Auto) (0-5) /lpf U Epithel Cells (Auto) (0-5) /lpf Urine Bacteria (Auto) (Negative) Salicylates (2.8-20) mg/dl Urine Opiates Screen (Neg) Ur Methadone, Qual (Neg) Acetaminophen (10-30) ug/ml Urine Barbiturates (Neg) Ur Phencyclidine (PCP) (Neg) U Amphetamin/Meth Scrn (Neg) MDMA (Ecstasy) Screen (Neg) U Benzodiazepines Scrn (Neg) Ur Cocaine Metabolite (Neg) U Marijuana (THC) Screen (Neg) Ethyl Alcohol mg/dL (0-3) mg/dl COVID-19 Eval Order SARS-CoV-2, RNA, NAAT NEGATIVE (NEGATIVE) Administered Medications Discontinued Medications Carvedilol (Carvedilol 3.125 Mg Tab) 3.125 mg PO NOW ONE Stop: 09/12/20 20:36 Last Admin: 09/12/20 20:49 Dose: 3.125 mg Documented by: [id number] Gabapentin (Gabapentin 600 Mg Tab) 1,200 mg PO NOW STA Stop: 09/12/20 20:35 Last Admin: 09/12/20 20:49 Dose: 1,200 mg Documented by: [id number] Ioversol (Optiray 320 125ml) 118 ml IV ONCE ONE Stop: 09/12/20 18:33 Last Admin: 09/12/20 18:32 Dose: 118 ml Documented by: [id number] Labetalol HCl (Labetalol Hcl Iv 5 Mg/Ml 20ml) 10 mg IV NOW STA Stop: 09/12/20 18:53 Last Admin: 09/12/20 19:09 Dose: 10 mg Documented by: [id number] Cosigned by: [id number] Labetalol HCl (Labetalol Hcl Iv 5 Mg/Ml 20ml) 10 mg IV NOW STA Stop: 09/12/20 19:40 Last Admin: 09/12/20 19:47 Dose: 10 mg Documented by: [id number] Cosigned by: [id number] Oxycodone HCl (Oxycodone Hcl Ir 5 Mg Tab (Immediate Release)) 5 mg PO NOW STA Stop: 09/12/20 20:33 Last Admin: 09/12/20 20:49 Dose: 5 mg Documented by: [id number] Imaging Data Radiologist's Impression: [facility], [phone] CT Scan Report Patient: CECILIA NIEVES Date: 09/12/20MR#: [id number]: [id number]: Date: 1985[facility] Zip: [place] [id number]: [id number]: EDSex: FRoom/Bed:Att Phy:Diagnosis: STROKE ALERT, HTN, HEADACHE,Meseret Phy: Angelic Pereira DOService Date: 09/12/20Fam Phy:Interpreting Phy: Rakesh Sarabia MDAdmit Phy: Ordering Phy: Tucker Salgado DO cc: ~ CT ANGIOGRAM OF THE BRAIN; CT ANGIOGRAM OF THE NECK CLINICAL HISTORY: Strokelike symptoms. COMPARISON STUDY: Unenhanced CT of the brain performed concurrently on 09/12/2020. CT angiogram of the head and neck dated 03/22/2019. TECHNIQUE: Following the IV administration of 118 of Optiray 320, CT angiogram of the head and neck was performed from the aortic arch to the vertex. Images are reviewed in the axial, sagittal, and coronal planes. 3-D MIPS images are created and assessed. IV contrast was administered without complication. All measurements were calculated based on NASCET criteria. A dose lowering yinka hnique was utilized adhering to the principles of ALARA. CT DOSE: 1066.49 mGy.cm FINDINGS: Brain parenchyma: The brain parenchyma is normal in appearance. There is no hemorrhage, mass effect, or evidence of acute territorial ischemia by CT criteria. There is no evidence of enhancing mass lesion on the angiogram phase images. The ventricles, sulci, and cisterns are normal in configuration. Lucas- white matter differentiation is preserved. No extra-axial fluid collection is seen. Thoracic aorta: Visualized portions of the thoracic aorta are normal in caliber. The aortic arch demonstrates 4-vessel variant anatomy. The left vertebral artery arises distracted from the arch. Right carotid arterial system: The right common carotid artery is widely patent, as are the right internal and external carotid arteries. There is tortuosity of the distal internal carotid artery. Left carotid arterial system: The left common carotid artery is widely patent, as are the left internal and external carotid arteries. There is tortuosity of the distal internal carotid artery. Vertebral arteries: The vertebral arteries are widely patent bilaterally and codominant in the neck. Subclavian arteries: Widely patent bilaterally. Intracranial vasculature: There is origin of the left posterior cerebral artery. A large posterior communicating artery seen on the right. The internal carotid arteries are patent at the skull base, as are the anterior and middle cerebral arteries bilaterally. The vertebrobasilar system and posterior cerebral arteries are diminutive but patent. The right vertebral artery is dominant. The right P1 segment is diminutive. There is no aneurysm, high-grade stenosis, or focal vessel cut off seen throughout the intracranial circulation. Jugular veins: Patent bilaterally. Dural sinuses: Patent. Lung apices: Partially visualized upper lobe lung parenchyma appears clear. Soft tissues: The visualized pharyngeal soft tissues are normal in appearance noting angiographic phase technique. The oropharyngeal airway appears widely patent. The salivary and thyroid glands are normal in appearance. No cervical lymphadenopathy is seen. Skeletal structures: The calvarium appears intact. The cervical spine is within normal limits. No lytic or blastic lesion is seen. Sinuses and mastoids: There is trace mucosal thickening in the right maxillary antrum. The remaining paranasal sinuses are clear. The mastoid air cells are well pneumatized. Dentition: Numerous dental caries are identified. A right lip piercing is noted. IMPRESSION: 1. There is no hemorrhage, mass effect, or evidence of acute territorial ischemia by CT criteria. 2. Unremarkable CT angiogram of the brain. 3. Unremarkable CT angiogram of the neck. 4. There are numerous dental caries. Nonemergent follow-up with dentistry is recommended. ACT 112: Negative or not required by law. Electronically signed by: Rakesh Sarabia M.D. 09/12/2020 6:56 PM Dictated: 09/12/201847Transcribed: 09/12/201847 Patient: CECILIA NIEVES Date: 09/12/20MR#: [id number]: [id number] [facility] LNAcct ID:[id number]: Date: 1985[facility] Zip: [place] [id number]: [id number]: EDSex: FRoom/Bed:Att Phy:Diagnosis: STROKE ALERT, HTN, HEADACHE,Meseret Phy: Angelic Pereira DOService Date: 09/12/20Fam Phy:Interpreting Phy: Rakesh Sarabia MDAdmit Phy: Ordering Phy: Tucker Salgado DO cc: ~ CT SCAN OF THE BRAIN WITHOUT IV CONTRAST CLINICAL HISTORY: Strokelike symptoms. COMPARISON STUDY: CT of the brain dated 03/22/2019. TECHNIQUE: Unenhanced axial CT scan of the brain is performed from the vertex to the skull base. A dose lowering technique was utilized adhering to the principles of ALARA. FINDINGS: Brain parenchyma: The brain parenchyma is normal in appearance. There is no hemorrhage, mass effect, or evidence of acute territorial ischemia by CT criteria. Lucas-white matter differentiation is preserved. No extra-axial fluid collection is seen. Ventricles, sulci, cisterns: Normal in configuration. Intracranial vasculature: The visualized intracranial vasculature at the skull base is normal in appearance. Calvarium: Unremarkable. Sinuses and mastoids: The visualized paranasal sinuses are clear. The mastoid air cells are well pneumatized. Orbits: The bony orbits are grossly intact. IMPRESSION: There is no hemorrhage, mass effect, or evidence of acute territorial ischemia by CT criteria. ACT 112: Negative or not required by law. Electronically signed by: Rakesh Sarabia M.D. 09/12/2020 6:46 PM Dictated: 09/12/201843Transcribed: 09/12/201843 Patient: CECILIA NIEVES Date: 09/12/20MR#: [id number]: [address] [facility] LNAcct ID:[id number]: [facility]: 1985[facility] Zip: [place] [id number]: [id number]: EDSex: FRoom/Bed:Att Phy:Diagnosis: STROKE ALERT, HTN, HEADACHE,Meseret Phy: Angelic Pereira DOService Date: 09/12/20Fam Phy:Interpreting Phy: Rakesh Sarabia MDAdmit Phy: Ordering Phy: Tucker Salgado DO cc: ~ SINGLE VIEW CHEST CLINICAL HISTORY: Strokelike symptoms. FINDINGS: An AP, portable, upright chest radiograph is compared to study dated 03/21/2019 and correlated with chest CT dated 04/14/2019. The examination is degraded by portable technique and apical lordotic positioning. The cardiomedias tinal silhouette is unremarkable. There is mild elevation of the right hemidiaphragm. The lungs and pleural spaces are clear. No pneumothorax is seen. The bony thorax is grossly intact. IMPRESSION: No active disease in the chest. ACT 112: Negative or not required by law. Electronically signed by: Rakesh Sarabia M.D. 09/12/2020 7:04 PM Dictated: 09/12/201902Transcribed: 09/12/201902 Prescription Drug Monitoring [place] Drug Monitoring Program reviewed and no issues identified Blood Pressure Blood Pressure Findings: Elevated blood pressure Blood Pressure Disposition: further management by hospitalist Discharge Plan Visit Data Chief Complaint: Stroke Alert Stated Complaint: STROKE ALERT, HTN, HEADACHE, ED Provider: Tucker Salgado Discharge Problem: Stroke-like symptom, Headache, Elevated blood pressure reading, Alcohol intoxication Patient Disposition: Admitted As Inpatient Condition: Good Discharge Instructions Interventions: ED Discharge Assessment Last Done: 09/12/20 21:47 Discharge Problem: Headache Qualifiers: Headache type: unspecified Headache chronicity pattern: unspecified pattern Intractability: not intractable Qualified Code(s): R51.9 - Headache, unspecified Alcohol intoxication Qualifiers: Complication of substance-induced condition: uncomplicated Qualified Code(s): F10.920 - Alcohol use, unspecified with intoxication, uncomplicated
[2020-09-12] MEDS ORDERED: LABETALOL HCL IV 5 MG/ML 20ML IV STA ×2 (18:52→19:39)
--- NOTE | 2020-09-12 18:57 | CT Scan Report ---
CT ANGIOGRAM OF THE BRAIN; CT ANGIOGRAM OF THE NECK CLINICAL HISTORY: Strokelike symptoms. COMPARISON STUDY: Unenhanced CT of the brain performed concurrently on 09/12/2020. CT angiogram of th e head and neck dated 03/22/2019. TECHNIQUE: Following the IV administration of 118 of Optiray 320, CT angiogram of the head and neck w as performed from the aortic arch to the vertex. Images are reviewed in the axial, sagittal, and susan nal planes. 3-D MIPS images are created and assessed. IV contrast was administered without complicati on. All measurements were calculated based on NASCET criteria. A dose lowering technique was utilize d adhering to the principles of ALARA. CT DOSE: 1066.49 mGy.cm FINDINGS: Brain parenchyma: The brain parenchyma is normal in appearance. There is no hemorrhage, mass effect, or evidence of acute territorial ischemia by CT criteria. There is no evidence of enhancing mass lesi on on the angiogram phase images. The ventricles, sulci, and cisterns are normal in configuration. Gr ay-white matter differentiation is preserved. No extra-axial fluid collection is seen. Thoracic aorta: Visualized portions of the thoracic aorta are normal in caliber. The aortic arch demo nstrates 4-vessel variant anatomy. The left vertebral artery arises distracted from the arch. Right carotid arterial system: The right common carotid artery is widely patent, as are the right int ernal and external carotid arteries. There is tortuosity of the distal internal carotid artery. Left carotid arterial system: The left common carotid artery is widely patent, as are the left technical support intern al and external carotid arteries. There is tortuosity of the distal internal carotid artery. Vertebral arteries: The vertebral arteries are widely patent bilaterally and codominant in the neck. Subclavian arteries: Widely patent bilaterally. Intracranial vasculature: There is origin of the left posterior cerebral artery. A large hand packer/packager ior communicating artery seen on the right. The internal carotid arteries are patent at the skull bas e, as are the anterior and middle cerebral arteries bilaterally. The vertebrobasilar system and poste rior cerebral arteries are diminutive but patent. The right vertebral artery is dominant. The right P 1 segment is diminutive. There is no aneurysm, high-grade stenosis, or focal vessel cut off seen thro ughout the intracranial circulation. Jugular veins: Patent bilaterally. Dural sinuses: Patent. Lung apices: Partially visualized upper lobe lung parenchyma appears clear. Soft tissues: The visualized pharyngeal soft tissues are normal in appearance noting angiographic pha se technique. The oropharyngeal airway appears widely patent. The salivary and thyroid glands are nor mal in appearance. No cervical lymphadenopathy is seen. Skeletal structures: The calvarium appears intact. The cervical spine is within normal limits. No lyt ic or blastic lesion is seen. Sinuses and mastoids: There is trace mucosal thickening in the right maxillary antrum. The remaining paranasal sinuses are clear. The mastoid air cells are well pneumatized. Dentition: Numerous dental caries are identified. A right lip piercing is noted. IMPRESSION: 1. There is no hemorrhage, mass effect, or evidence of acute territorial ischemia by CT criteria. 2. Unremarkable CT angiogram of the brain. 3. Unremarkable CT angiogram of the neck. 4. There are numerous dental caries. Nonemergent follow-up with dentistry is recommended. ACT 112: Negative or not required by law. Electronically signed by: Rakesh Sarabia M.D. 09/12/2020 6:56 PM
--- NOTE | 2020-09-12 19:05 | XRay Report ---
SINGLE VIEW CHEST CLINICAL HISTORY: Strokelike symptoms. FINDINGS: An AP, portable, upright chest radiograph is compared to study dated 03/21/2019 and correlate d with chest CT dated 04/14/2019. The examination is degraded by portable technique and apical lordoti c positioning. The cardiomediastinal silhouette is unremarkable. There is mild elevation of the right hemidiaphragm. The lungs and pleural spaces are clear. No pneumothorax is seen. The bony thorax is g rossly intact. IMPRESSION: No active disease in the chest. ACT 112: Negative or not required by law. Electronically signed by: Rakesh Sarabia M.D. 09/12/2020 7:04 PM
[2020-09-12 19:19] LABS: Hematocrit (blood only) 45.2 % (37-47); Hemoglobin 15.3 g/dL (12.0-16.0); Mean Corpuscular Hemoglobin 30.9 pg (25-34); Mean Corpuscular Hgb Conc 33.8 g/dL (32-36); Mean Corpuscular Volume 91.3 fL (80-100); Mean Platelet Volume 9.4 fL (7.4-10.4); Platelet Count 265 K/uL (130-400); RDW Coefficient of Variation 14.2 % (11.5-14.5); RDW Standard Deviation 47.2 fL (36.4-46.3); Red Blood Count 4.95 M/uL (4.2-5.4); White Blood Count 8.06 K/uL (4.8-10.8)
[2020-09-12 19:37] LABS: Partial Thromboplastin Ratio 0.9; Partial Thromboplastin Time 25.9 Seconds (21.0-31.0); Prothrombin Time 10.6 Seconds (9.0-12.0)
[2020-09-12 19:43] LABS: ALC (manual) 4.42 K/uL (1.2-3.4); ANC (manual) 3.43 K/uL (1.4-6.5); Eosinophils # (manual) 0.14 K/uL (0-0.5); Eosinophils % (manual) 1.7 %; Lymphocytes # (manual) 2.52 K/uL (1.2-3.4); Lymphocytes % (manual) 31.3 %; Monocytes # (manual) 0.07 K/uL (0.11-0.59); Monocytes % (manual) 0.9 %; Neutrophils # (manual) 3.43 K/uL (1.4-6.5); Neutrophils % (manual) 42.6 %; Reactive Lymphocytes # (manual) 1.89 K/uL; Reactive Lymphocytes % (manual) 23.5 %
[2020-09-12 19:52] LABS: Acetaminophen < 2 ug/ml (10-30); Salicylate 3.4 mg/dl (2.8-20)
[2020-09-12 20:01] LABS: Alanine Aminotransferase 64 U/L (12-78); Albumin Globulin Ratio 0.8 (0.9-2); Albumin Level 3.6 gm/dl (3.4-5.0); Alkaline Phosphatase 69 U/L (45-117); Aspartate Aminotransferase 35 U/L (15-37); BUN Creatinine Ratio 12.7 (10-20); Bilirubin,Total 0.3 mg/dl (0.2-1); Blood Urea Nitrogen 9 mg/dl (7-18); Calcium 8.6 mg/dl (8.5-10.1); Carbon Dioxide 20 mmol/L (21-32); Chloride 112 mmol/L (98-107); Creatinine Clr Calc Pharmacy 142.1 ml/min; Est GFR (African American) 128.4; Est GFR (Non-African American) 110.8; Globulin 4.4 gm/dl (2.5-4.0); Glucose 83 mg/dl (70-99); Magnesium 2.5 mg/dl (1.8-2.4); Potassium 4.3 mmol/L (3.5-5.1); Sodium 142 mmol/L (136-145); Troponin I < 0.015 ng/ml (0-0.045)
[2020-09-12 20:01] LABS: Appearance Urine Clear (Clear); Bacteria Urine Automated Negative (Negative); Bilirubin Urine Negative (Negative); Blood Urine Negative (Negative); Cast Urine Automated 0 /lpf (0-5); Color Urine Yellow; Glucose Urine UA Negative (Negative); Ketones Urine Negative (Negative); Leukocyte Esterase Urine Negative (Negative); Nitrite Urine Negative (Negative); Protein Urine Trace (Negative); RBC Urine Automated 0-4 /hpf (0-4); Specific Gravity Urine 1.038 (1.000-1.030); Urobilinogen Urine Negative (Negative); pH Urine 6.5 (4.5-7.5)
[2020-09-12 20:22] LABS: Amphetamines+Metham, Urine Neg (Neg); Barbiturates, Urine Neg (Neg); Benzodiazepine, Urine Neg (Neg); Cocaine, Urine Neg (Neg); MDMA (Ecstacy), Urine Neg (Neg); Methadone, Urine Neg (Neg); Opiate, Urine Neg (Neg); Phencyclidine, Urine Neg (Neg)
[2020-09-12] MEDS ORDERED: oxyCODONE HCL IR 5 MG TAB (IMMEDIATE RELEASE) PO STA (20:32)
[2020-09-12] MEDS ORDERED: GABAPENTIN 600 MG TAB PO STA (20:34)
[2020-09-12] MEDS ORDERED: carvediloL 3.125 MG TAB PO ONE (20:35)
--- NOTE | 2020-09-12 20:35 | History & Physical Report ---
Date of Service September 12, 2020 Assessment & Plan (1) TIA (transient ischemic attack): hypertension, elevated secondary to above mood disorder, at baseline hx PE status post anti-coagulation past history benzodiazepine/opioid abuse as per records Ongoing alcohol/tobacco abuse history seizures/pseudoseizure disorder OBS Medical telemetry Neurochecks MRI brain Aspirin for stroke prevention until acute stroke ruled out Permissive hypertension until acute stroke ruled out Neurology consult RE TIA JUAN S, DT precautions Judicious narcotic use given history of substance abuse Nicotine patch as needed DVT prophylaxis. Lovenox subcu Full code Text document was generated using [employer] voice recognition software. It may contain grammatical or spelling errors. Kindly contact undersigned for clarification of any documentation item in question. History of Present Illness Chief Complaint: Right-sided weakness Primary Care Provider: Angelic Pereira DO History obtained from patient and records. Medical history significant for hypertension, mood disorder, PE status post anti-coagulation, chronic back pain, past history benzodiazepine/opioid abuse as per records, alcohol abuse as per records, history seizures/pseudoseizure disorder, ongoing tobacco abuse. Last confinement March 2019 for chest pain secondary to hypertensive urgency. Few hours ago patient noted sudden onset of right-sided weakness and generalized headache symptoms. No slurred speech symptoms. Compliant with home medications. SBP this morning 160s which is kind of high for her. Tick bite on left breast noted last week. No fever, no chills, no chest pain, no S OB. Some personal stressors at home. No prior episodes in the past. Patient took an aspirin at home. Right-sided weakness improving during stay at the ER. 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 Allergies Allergy/AdvReac Type Severity Reaction Status Date / Time nut - unspecified Allergy Severe Anaphylaxis Verified 09/12/20 20:03 Penicillins Allergy Severe Difficulty Verified 09/12/20 20:03 Breathing tree nut Allergy Severe Anaphylaxis Verified 09/12/20 20:03 morphine Allergy Intermediate Hives Verified 09/12/20 20:03 mushroom Allergy Intermediate Hives Verified 09/12/20 20:03 Home Medications Medication Instructions Recorded Confirmed Type epinephrine [EpiPen] 0.3 mg IM DIRECTED PRN 05/13/18 09/12/20 History spironolactone 50 mg PO QAM 12/01/18 09/12/20 History benztropine 0.5 mg PO HS 03/22/19 09/12/20 History amlodipine [Norvasc] 10 mg PO DAILY #30 tab 03/23/19 09/12/20 Rx benzonatate [Tessalon Perles] 100 mg PO TID PRN 10/18/19 09/12/20 History carvedilol 25 mg PO BID 10/18/19 09/12/20 History lisinopril 10 mg PO DAILY 10/18/19 09/12/20 History mirtazapine 15 mg PO HS 10/18/19 09/12/20 History Past Med/Surg History Medical History (Updated 09/12/20 @ 21:49 by Tucker Salgado DO) Acute appendicitis (12/25/12) Acute cholecystitis Alcohol abuse, unspecified (07/15/12) Anxiety state, unspecified (06/16/11) Bipolar disorder Cellulitis Hypertension (07/15/12) No known health problems Overdose of antipsychotic Pyelonephritis Suicidal ideation Surgical History Cholecystostomy care History of appendectomy (12/25/12) History of dental surgery Tubal ligation status Family History Other No pertinent family history Social History Smoking Status: Current every day smoker Tobacco Type: Cigarettes Cigarettes Per Day: 20; Second Hand Exposure: Yes; Tobacco Cessation Education Requested by Patient: No Hx Alcohol Use: Yes Alcohol type: wine Hx Substance Use: No Preferred Language: Frisian Communication Ability: Effective 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 Beliefs That Will Affect Care: None marital status: Single Current Living Situation: Spouse current occupational status: unemployed current occupation: Prior employment at [employer] Feels Safe at Home: Yes Assistive Devices: None Review of Systems Review of Systems: As per HPI, all 10 systems reviewed, all other ROS negative Physical Exam Physical Exam: GENERAL: Uncomfortable , obese, no respiratory distress SKIN: Normal color, warm HEENT: Joiner palpebral conjunctivae, no ptosis, dry buccal mucosa NECK : Supple, short neck, no tenderness CHEST : CTA, no tenderness HEART : RRR, no obvious murmurs ABDOMEN: Some distention, nontender EXTREMITIES : Minimal LE swelling, no LE tenderness, no other conspicuous deformities noted NEUROLOGIC : Coherent, no facial asymmetry, no pronator drift, no other gross focality Results & Data Results & Data ([facility]) Vital Signs (Past 12 Hours) Vital Signs Temp Pulse Pulse Resp BP BP Pulse Ox 09/12/20 20:24 90 176/119 H 97 09/12/20 19:12 100 H 16 164/135 H 98 09/12/20 18:45 37.0 C 107 H 21 190/132 H 95 Laboratory Results Laboratory Results WBC 8.06 K/uL (4.8-10.8) 09/12/20 18:54 RBC 4.95 M/uL (4.2-5.4) 09/12/20 18:54 Hgb 15.3 g/dL (12.0-16.0) 09/12/20 18:54 Hct 45.2 % (37-47) 09/12/20 18:54 MCV 91.3 fL (80-100) 09/12/20 18:54 MCH 30.9 pg (25-34) 09/12/20 18:54 MCHC 33.8 g/dL (32-36) 09/12/20 18:54 RDW Std Deviation 47.2 fL (36.4-46.3) H 09/12/20 18:54 RDW Coeff of Carmen 14.2 % (11.5-14.5) 09/12/20 18:54 Plt Count 265 K/uL (130-400) 09/12/20 18:54 MPV 9.4 fL (7.4-10.4) 09/12/20 18:54 Neutrophils % (Manual) 42.6 % 09/12/20 18:54 Lymphocytes % (Manual) 31.3 % 09/12/20 18:54 Reactive Lymphs % (Man) 23.5 % 09/12/20 18:54 Monocytes % (Manual) 0.9 % 09/12/20 18:54 Eosinophils % (Manual) 1.7 % 09/12/20 18:54 Neutrophils # (Manual) 3.43 K/uL (1.4-6.5) 09/12/20 18:54 Total Absolute Neuts 3.43 K/uL (1.4-6.5) 09/12/20 18:54 Lymphocytes # (Manual) 2.52 K/uL (1.2-3.4) 09/12/20 18:54 Reactive Lymphs # 1.89 K/uL 09/12/20 18:54 Total Abs Lymphocytes 4.42 K/uL (1.2-3.4) H 09/12/20 18:54 Monocytes # (Manual) 0.07 K/uL (0.11-0.59) L 09/12/20 18:54 Eosinophils # (Manual) 0.14 K/uL (0-0.5) 09/12/20 18:54 PT 10.6 Seconds (9.0-12.0) 09/12/20 18:54 INR 1.0 (0.9-1.1) 09/12/20 18:54 APTT 25.9 Seconds (21.0-31.0) 09/12/20 18:54 PTT Ratio 0.9 09/12/20 18:54 Sodium 142 mmol/L (136-145) 09/12/20 18:54 Potassium 4.3 mmol/L (3.5-5.1) 09/12/20 18:54 Chloride 112 mmol/L (98-107) H 09/12/20 18:54 Carbon Dioxide 20 mmol/L (21-32) L 09/12/20 18:54 Anion Gap 10.0 (3-11) 09/12/20 18:54 BUN 9 mg/dl (7-18) 09/12/20 18:54 Creatinine 0.72 mg/dl (0.6-1.2) 09/12/20 18:54 Est Cr Clr Drug Dosing 142.1 ml/min 09/12/20 18:54 Est GFR ( Amer) 128.4 09/12/20 18:54 Est GFR (Non-Af Amer) 110.8 09/12/20 18:54 BUN/Creatinine Ratio 12.7 (10-20) 09/12/20 18:54 Glucose 83 mg/dl (70-99) 09/12/20 18:54 Calcium 8.6 mg/dl (8.5-10.1) 09/12/20 18:54 Magnesium 2.5 mg/dl (1.8-2.4) H 09/12/20 18:54 Total Bilirubin 0.3 mg/dl (0.2-1) 09/12/20 18:54 AST 35 U/L (15-37) 09/12/20 18:54 ALT 64 U/L (12-78) 09/12/20 18:54 Alkaline Phosphatase 69 U/L (45-117) 09/12/20 18:54 Troponin I < 0.015 ng/ml (0-0.045) 09/12/20 18:54 Total Protein 8.0 gm/dl (6.4-8.2) 09/12/20 18:54 Albumin 3.6 gm/dl (3.4-5.0) 09/12/20 18:54 Globulin 4.4 gm/dl (2.5-4.0) H 09/12/20 18:54 Albumin/Globulin Ratio 0.8 (0.9-2) L 09/12/20 18:54 HCG, Quant < 1 mIU/ml 09/12/20 18:54 Urine Color Yellow 09/12/20 19:42 Urine Appearance Clear (Clear) 09/12/20 19:42 Urine pH 6.5 (4.5-7.5) 09/12/20 19:42 Ur Specific Hathaway 1.038 (1.000-1.030) H 09/12/20 19:42 Urine Protein Trace (Negative) H 09/12/20 19:42 Urine Glucose (UA) Negative (Negative) 09/12/20 19:42 Urine Ketones Negative (Negative) 09/12/20 19:42 Urine Blood Negative (Negative) 09/12/20 19:42 Urine Nitrite Negative (Negative) 09/12/20 19:42 Urine Bilirubin Negative (Negative) 09/12/20 19:42 Urine Urobilinogen Negative (Negative) 09/12/20 19:42 Ur Leukocyte Esterase Negative (Negative) 09/12/20 19:42 Urine WBC (Auto) 1-5 /hpf (0-5) 09/12/20 19:42 Urine RBC (Auto) 0-4 /hpf (0-4) 09/12/20 19:42 U Hyaline Cast (Auto) 0 /lpf (0-5) 09/12/20 19:42 U Epithel Cells (Auto) 10-20 /lpf (0-5) H 09/12/20 19:42 Urine Bacteria (Auto) Negative (Negative) 09/12/20 19:42 Salicylates 3.4 mg/dl (2.8-20) 09/12/20 18:54 Urine Opiates Screen Neg (Neg) 09/12/20 19:42 Ur Methadone, Qual Neg (Neg) 09/12/20 19:42 Acetaminophen < 2 ug/ml (10-30) L 09/12/20 18:54 Urine Barbiturates Neg (Neg) 09/12/20 19:42 Ur Phencyclidine (PCP) Neg (Neg) 09/12/20 19:42 U Amphetamin/Meth Scrn Neg (Neg) 09/12/20 19:42 MDMA (Ecstasy) Screen Neg (Neg) 09/12/20 19:42 U Benzodiazepines Scrn Neg (Neg) 09/12/20 19:42 Ur Cocaine Metabolite Neg (Neg) 09/12/20 19:42 U Marijuana (THC) Screen Neg (Neg) 09/12/20 19:42 Ethyl Alcohol mg/dL 233.8 mg/dl (0-3) H 09/12/20 18:54 COVID-19 [facility] 09/12/20 20:[address] head : There is no hemorrhage, mass effect, or evidence of acute territorial ischemia by CT criteria. CT angio head/neck: 1. There is no hemorrhage, mass effect, or evidence of acute territorial ischemia by CT criteria. 2. Unremarkable CT angiogram of the brain. 3. Unremarkable CT angiogram of the neck. 4. There are numerous dental caries. Nonemergent follow-up with dentistry is recommended. Chest x-ray : No active disease in the chest. EKG as per my interpretation : Rate 105, sinus tachycardia, normal axis, incomplete RBBB, no ischemia
[2020-09-12] MEDS ORDERED: MIRTAZAPINE TAB 15 MG TAB PO SCH (21:48)
[2020-09-12] MEDS ORDERED: BENZTROPINE MESYLATE 0.5 MG TAB PO SCH (21:48)
[2020-09-12] MEDS ORDERED: LORazepam 0.25 MG/0.5 ML VIAL IV PRN (21:48)
[2020-09-12] MEDS ORDERED: ATIVAN IV ALCOHOL WITHDRAWL IV PRN (21:48)
[2020-09-12] MEDS ORDERED: GABAPENTIN 1200MG ALCOHOL WITHDRAWAL LOAD PO STA (21:48)
[2020-09-12] MEDS ORDERED: PROMETHAZINE HCL 12.5 MG in SODIUM CHLORIDE 0.9% 50 ML IV PRN (21:48)
[2020-09-12] MEDS ORDERED: LORazepam 1 MG/2 ML VIAL IV PRN (21:48)
[2020-09-12] MEDS ORDERED: LORazepam 3 MG/6 ML VIAL IV PRN (21:48)
[2020-09-12] MEDS ORDERED: LORazepam 2 MG/4 ML VIAL IV PRN (21:48)
[2020-09-12] MEDS ORDERED: MULTI-VITAMIN INFUSION 10 ML, THIAMINE HCL 100 MG, FOLIC ACID 1 MG in SODIUM CHLORIDE 0... IV ONE (22:00)
[2020-09-12] MEDS: ACETAMINOPHEN 325 MG TAB PO PRN (22:14)
[2020-09-12 22:17] LABS: Lyme Ab IgG w/WB Rflx Negative (Negative); Lyme Ab IgM w/WB Rflx Negative (Negative)
[2020-09-12] MEDS ORDERED: NICOTINE 21 MG/24 HR TDSY TD SCH (23:50)
[2020-09-13] MEDS: oxyCODONE HCL IR 5 MG TAB (IMMEDIATE RELEASE) PO PRN ×2 (01:18→12:16)
[2020-09-13] MEDS ORDERED: carvediloL 3.125 MG TAB PO ONE (01:38)
[2020-09-13] MEDS: GABAPENTIN 600 MG TAB PO SCH ×2 (06:23→12:10)
[2020-09-13] MEDS: ACETAMINOPHEN 325 MG TAB PO PRN (06:23)
[2020-09-13 06:29] LABS: Basophils # (auto) 0.04 K/uL (0-0.2); Basophils % (auto) 0.5 %; Eosinophils # (auto) 0.27 K/uL (0-0.5); Eosinophils % (auto) 3.7 %; Hematocrit (blood only) 41.2 % (37-47); Hemoglobin 13.8 g/dL (12.0-16.0); Immature Granulocytes # (auto) 0.06 K/uL (0.00-0.02); Immature Granulocytes % (auto) 0.8 %; Lymphocytes # (auto) 3.15 K/uL (1.2-3.4); Mean Corpuscular Hemoglobin 30.9 pg (25-34); Mean Corpuscular Hgb Conc 33.5 g/dL (32-36); Mean Corpuscular Volume 92.4 fL (80-100); Mean Platelet Volume 9.6 fL (7.4-10.4); Monocytes # (auto) 0.73 K/uL (0.11-0.59); Neutrophils # (auto) 3.07 K/uL (1.4-6.5); Platelet Count 280 K/uL (130-400); RDW Coefficient of Variation 14.6 % (11.5-14.5); RDW Standard Deviation 49.5 fL (36.4-46.3); Red Blood Count 4.46 M/uL (4.2-5.4); White Blood Count 7.32 K/uL (4.8-10.8)
[2020-09-13 07:04] LABS: BUN Creatinine Ratio 15.2 (10-20); Calcium 8.4 mg/dl (8.5-10.1); Est GFR (African American) 133.5; Est GFR (Non-African American) 115.2; Potassium 3.7 mmol/L (3.5-5.1)
--- NOTE | 2020-09-13 08:17 | Magnetic Resonance Report ---
Brain MRI WITHOUT CONTRAST HISTORY: Severe headache. Dizziness. Right-sided weakness. TECHNIQUE: Multiplanar multisequence MRI of the brain was performed without the use of contrast. COMPARISON STUDY: Head CT 09/12/2020. FINDINGS: There are no areas of restricted diffusion to suggest acute infarction. The midline structu res are intact. The paranasal sinuses are clear. The mastoid air cells are clear. The ventricles and sulci are within normal limits for age. There is no mass, hematoma, midline shift. The major vascular flow-voids at the skull base are well maintained. IMPRESSION: No acute intracranial abnormality. ACT 112: Negative or not required by law. Electronically signed by: Jovan Abreu M.D. 09/13/2020 8:15 AM
[2020-09-13] MEDS ORDERED: carvediloL 25 MG TAB PO SCH (09:00)
[2020-09-13] MEDS ORDERED: lisinopril 10 MG TAB PO SCH (09:00)
[2020-09-13] MEDS ORDERED: ASPIRIN 81 MG ECTAB PO SCH (09:00)
[2020-09-13] MEDS ORDERED: amLODIPine BESYLATE 5 MG TAB PO SCH (09:00)
[2020-09-13] MEDS ORDERED: THIAMINE HCL 100 MG TAB PO SCH (09:00)
[2020-09-13] MEDS ORDERED: MULTIVITAMIN TAB PO SCH (09:00)
[2020-09-13] MEDS ORDERED: ENOXAPARIN INJ 40 MG/0.4 ML SYR SQ SCH (09:00)
[2020-09-13] MEDS ORDERED: FOLIC ACID 1 MG TAB PO SCH (09:00)
--- NOTE | 2020-09-13 10:14 | Electrocardiogram Report ---
Test Reason : Blood Pressure : / mmHG Vent. Rate : 108 BPM Atrial Rate : 108 BPM P-R Int : 150 ms QRS Dur : 104 ms QT Int : 358 ms P-R-T Axes : 056 018 037 degrees QTc Int : 479 ms Sinus tachycardia Incomplete right bundle branch block Borderline ECG When compared with ECG of 14-APR-2019 16:28, No significant change was found Confirmed by Zeferino Salazar ([id number]) on 09/13/2020 10:14:13 AM Referred By: REFERRED SELF Confirmed By:Dl Salazar
--- NOTE | 2020-09-13 13:24 | Hospitalist Progress Note ---
Date of Service September 13, 2020 Assessment & Plan (1) Stroke-like symptom: Present on admission with right side weakness and headache Possible related to migraine vs elevated blood pressure Stroke alert was called and she was not a candidate for TPA given her blood pressure as well as her rapidly improvement in her symptoms as per stroke tele at [place] CT head was negative for any acute intracranial abnormality CTA head/neck showed no hemorrhage, mass effect, or evidence of acute territorial ischemia MRI head showed no acute intracranial abnormality No focal neuro deficit on exam Neuro consulted- Pending Pt is very anxious to go home today Continue aspirin for now Headache Possible related to elevated BP and stress CT/MRI head negative Improved Hypertension Hypertensive Urgency BP elevated 190/132 on admission Received IV labetalol on admission Continue Amlodipine, Lisinopril carvedilol Will resume Spironolactone on discharge Pt was advised about alcohol cessation since that can cause elevates BP BP normalized Alcohol abuse Alcohol level 233 Pt said that she drinks alcohol about 3 times a week Denies any history of withdrawal or DT Continue alcohol withdrawal protocol with Ativan and Gabapentin Continue Thiamine and folic acid Counseling on alcohol cessation Will monitor for DT or alcohol withdrawal Tobacco abuse Counseling on smoking cessation On Nicotine patch prn Hx substance abuse Past history benzodiazepine/opioid abuse Will not give any prescription for Benzo or opioid Continue monitor closely DVT px on Lovenox subq CODE STATUS FULL CODE Admission and Anticipated Discharge Date Admission Date: September 12, 2020 Subjective Pt was seen and examined for follow up of headache and right side weakness Lying in bed with no distress Pt is very anxious to go home because her is leaving for work soon She said that she does not have anymore right side tenderness and headache She said that she is under a lot of stress and family dynamic lately She said that she just lost her ext mother in law from drug overdose Denies any chest pain, palpitation, dizziness and SOB Physical Exam Physical Exam: General- No acute distress Head- atraumatic Eyes- PERRL, EOMI, ENT- oropharynx clear Neck- supple, no JVD Lungs- clear to auscultation Heart- regular rhythm; no murmur Abdomen- normal bowel sounds, soft, nontender Extremities- no calf tenderness Neuro- alert, oriented x 3; PERRL, EOMI; no facial palsy; no dysarthria, finger to touch intact Skin- warm & dry Results & Data Results & Data ([place]) Vital Signs (Past 12 Hours) Vital Signs Temp Pulse Pulse Pulse Resp BP BP 09/13/20 11:58 36.8 C 83 18 128/87 09/13/20 08:00 36.4 C L 94 H 81 16 142/103 H 09/13/20 04:00 36.7 C 104 H 22 169/96 H Pulse Ox 09/13/20 11:58 97 09/13/20 08:00 94 09/13/20 04:00 93
[2020-09-13] MEDS ORDERED: GABAPENTIN 600 MG TAB PO SCH (22:00)
[2020-09-15] MEDS ORDERED: GABAPENTIN 600 MG TAB PO SCH
--- NOTE | 2020-09-16 08:57 | Discharge Summary ---
Date of Service September 13, 2020 Admission HPI Per Admitting Provider History obtained from patient and records. Medical history significant for hypertension, mood disorder, PE status post anti-coagulation, chronic back pain, past history benzodiazepine/opioid abuse as per records, alcohol abuse as per records, history seizures/pseudoseizure disorder, ongoing tobacco abuse. Last confinement March 2019 for chest pain secondary to hypertensive urgency. Few hours ago patient noted sudden onset of right-sided weakness and generalized headache symptoms. No slurred speech symptoms. Compliant with home medications. SBP this morning 160s which is kind of high for her. Tick bite on left breast noted last week. No fever, no chills, no chest pain, no S OB. Some personal stressors at home. No prior episodes in the past. Patient took an aspirin at home. Right-sided weakness improving during stay at the ER. 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 Admission Exam Per Admitting Provider GENERAL: Uncomfortable , obese, no respiratory distress SKIN: Normal color, warm HEENT: [place] palpebral conjunctivae, no ptosis, dry buccal mucosa NECK : Supple, short neck, no tenderness CHEST : CTA, no tenderness HEART : RRR, no obvious murmurs ABDOMEN: Some distention, nontender EXTREMITIES : Minimal LE swelling, no LE tenderness, no other conspicuous deformities noted NEUROLOGIC : Coherent, no facial asymmetry, no pronator drift, no other gross focality Principal Diagnosis Stroke-like symptom Headache Hypertension Alcohol abuse Tobacco abuse Hx substance abuse Discharge Exam General- No acute distress Head- atraumatic Eyes- PERRL, EOMI, ENT- oropharynx clear Neck- supple, no JVD Lungs- clear to auscultation Heart- regular rhythm; no murmur Abdomen- normal bowel sounds, soft, nontender Extremities- no calf tenderness Neuro- alert, oriented x 3; PERRL, EOMI; no facial palsy; no dysarthria, finger to touch intact Skin- warm & dry Discharge Data Allergies Allergy/AdvReac Type Severity Reaction Status Date / Time nut - unspecified Allergy Severe Anaphylaxis Verified 09/12/20 20:03 Penicillins Allergy Severe Difficulty Verified 09/12/20 20:03 Breathing tree nut Allergy Severe Anaphylaxis Verified 09/12/20 20:03 morphine Allergy Intermediate Hives Verified 09/12/20 20:03 mushroom Allergy Intermediate Hives Verified 09/12/20 20:03 Consultations 09/12/20 19:55 ED Decision to Admit Stat 09/12/20 21:48 Consult Case Management - Discharge Planning Routine Consult Neurology Routine Ordered Studies 09/12/20 18:24 CT angio head w con Stat CT angio neck with con Stat CT head/brain wo con Stat 09/13/20 00:09 MR brain wo con Urgent Brain MRI WITHOUT CONTRAST HISTORY: Severe headache. Dizziness. Right-sided weakness. TECHNIQUE: Multiplanar multisequence MRI of the brain was performed without the use of contrast. COMPARISON STUDY: Head CT 09/12/2020. FINDINGS: There are no areas of restricted diffusion to suggest acute infarction. The midline structures are intact. The paranasal sinuses are clear. The mastoid air cells are clear. The ventricles and sulci are within normal limits for age. There is no mass, hematoma, midline shift. The major vascular flow-voids at the skull base are well maintained. IMPRESSION: No acute intracranial abnormality. ACT 112: Negative or not required by law. Electronically signed by: Jovan Abreu M.D. 09/13/2020 8:15 AM Dictated: 09/13/20811Transcribed: 09/13/20811 CT ANGIOGRAM OF THE BRAIN; CT ANGIOGRAM OF THE NECK CLINICAL HISTORY: Strokelike symptoms. COMPARISON STUDY: Unenhanced CT of the brain performed concurrently on 2020. CT angiogram of the head and neck dated 03/22/2019. TECHNIQUE: Following the IV administration of 118 of Optiray 320, CT angiogram of the head and neck was performed from the aortic arch to the vertex. Images are reviewed in the axial, sagittal, and coronal planes. 3-D MIPS images are created and assessed. IV contrast was administered without complication. All measurements were calculated based on NASCET criteria. A dose lowering technique was utilized adhering to the principles of ALARA. CT DOSE: 1066.49 mGy.cm FINDINGS: Brain parenchyma: The brain parenchyma is normal in appearance. There is no hemorrhage, mass effect, or evidence of acute territorial ischemia by CT criteria. There is no evidence of enhancing mass lesion on the angiogram phase images. The ventricles, sulci, and cisterns are normal in configuration. Lucas- white matter differentiation is preserved. No extra-axial fluid collection is seen. Thoracic aorta: Visualized portions of the thoracic aorta are normal in caliber. The aortic arch demonstrates 4-vessel variant anatomy. The left vertebral artery arises distracted from the arch. Right carotid arterial system: The right common carotid artery is widely patent, as are the right internal and external carotid arteries. There is tortuosity of the distal internal carotid artery. Left carotid arterial system: The left common carotid artery is widely patent, as are the left internal and external carotid arteries. There is tortuosity of the distal internal carotid artery. Vertebral arteries: The vertebral arteries are widely patent bilaterally and codominant in the neck. Subclavian arteries: Widely patent bilaterally. Intracranial vasculature: There is origin of the left posterior cerebral artery. A large posterior communicating artery seen on the right. The internal carotid arteries are patent at the skull base, as are the anterior and middle cerebral arteries bilaterally. The vertebrobasilar system and posterior cerebral arteries are diminutive but patent. The right vertebral artery is dominant. The right P1 segment is diminutive. There is no aneurysm, high-grade stenosis, or focal vessel cut off seen throughout the intracranial circulation. Jugular veins: Patent bilaterally. Dural sinuses: Patent. Lung apices: Partially visualized upper lobe lung parenchyma appears clear. Soft tissues: The visualized pharyngeal soft tissues are normal in appearance noting angiographic phase technique. The oropharyngeal airway appears widely patent. The salivary and thyroid glands are normal in appearance. No cervical lymphadenopathy is seen. Skeletal structures: The calvarium appears intact. The cervical spine is within normal limits. No lytic or blastic lesion is seen. Sinuses and mastoids: There is trace mucosal thickening in the right maxillary antrum. The remaining paranasal sinuses are clear. The mastoid air cells are well pneumatized. Dentition: Numerous dental caries are identified. A right lip piercing is noted. IMPRESSION: 1. There is no hemorrhage, mass effect, or evidence of acute territorial ischemia by CT criteria. 2. Unremarkable CT angiogram of the brain. 3. Unremarkable CT angiogram of the neck. 4. There are numerous dental caries. Nonemergent follow-up with dentistry is recommended. ACT 112: Negative or not required by law. Electronically signed by: Rakesh Sarabia M.D. 09/12/2020 6:[address] ANGIOGRAM OF THE BRAIN; CT ANGIOGRAM OF THE NECK CLINICAL HISTORY: Strokelike symptoms. COMPARISON STUDY: Unenhanced CT of the brain performed concurrently on 09/12/2020. CT angiogram of the head and neck dated 03/22/2019. TECHNIQUE: Following the IV administration of 118 of Optiray 320, CT angiogram of the head and neck was performed from the aortic arch to the vertex. Images are reviewed in the axial, sagittal, and coronal planes. 3-D MIPS images are created and assessed. IV contrast was administered without complication. All measurements were calculated based on NASCET criteria. A dose lowering technique was utilized adhering to the principles of ALARA. CT DOSE: 1066.49 mGy.cm FINDINGS: Brain parenchyma: The brain parenchyma is normal in appearance. There is no hemorrhage, mass effect, or evidence of acute territorial ischemia by CT criteria. There is no evidence of enhancing mass lesion on the angiogram phase images. The ventricles, sulci, and cisterns are normal in configuration. Lucas- white matter differentiation is preserved. No extra-axial fluid collection is seen. Thoracic aorta: Visualized portions of the thoracic aorta are normal in caliber. The aortic arch demonstrates 4-vessel variant anatomy. The left vertebral artery arises distracted from the arch. Right carotid arterial system: The right common carotid artery is widely patent, as are the right internal and external carotid arteries. There is tortuosity of the distal internal carotid artery. Left carotid arterial system: The left common carotid artery is widely patent, as are the left internal and external carotid arteries. There is tortuosity of the distal internal carotid artery. Vertebral arteries: The vertebral arteries are widely patent bilaterally and codominant in the neck. Subclavian arteries: Widely patent bilaterally. Intracranial vasculature: There is origin of the left posterior cerebral artery. A large posterior communicating artery seen on the right. The internal c arotid arteries are patent at the skull base, as are the anterior and middle cerebral arteries bilaterally. The vertebrobasilar system and posterior cerebral arteries are diminutive but patent. The right vertebral artery is dominant. The right P1 segment is diminutive. There is no aneurysm, high-grade stenosis, or focal vessel cut off seen throughout the intracranial circulation. Jugular veins: Patent bilaterally. Dural sinuses: Patent. Lung apices: Partially visualized upper lobe lung parenchyma appears clear. Soft tissues: The visualized pharyngeal soft tissues are normal in appearance n oting angiographic phase technique. The oropharyngeal airway appears widely patent. The salivary and thyroid glands are normal in appearance. No cervical lymphadenopathy is seen. Skeletal structures: The calvarium appears intact. The cervical spine is within normal limits. No lytic or blastic lesion is seen. Sinuses and mastoids: There is trace mucosal thickening in the right maxillary antrum. The remaining paranasal sinuses are clear. The mastoid air cells are well pneumatized. Dentition: Numerous dental caries are identified. A right lip piercing is noted. IMPRESSION: 1. There is no hemorrhage, mass effect, or evidence of acute territorial ischemia by CT criteria. 2. Unremarkable CT angiogram of the brain. 3. Unremarkable CT angiogram of the neck. 4. There are numerous dental caries. Nonemergent follow-up with dentistry is recommended. ACT 112: Negative or not required by law. Electronically signed by: Rakesh Sarabia M.D. 09/12/2020 6:56 PM Dictated: 09/12/201847Transcribed: 09/12/201847 CT SCAN OF THE BRAIN WITHOUT IV CONTRAST CLINICAL HISTORY: Strokelike symptoms. COMPARISON STUDY: CT of the brain dated 03/22/2019. TECHNIQUE: Unenhanced axial CT scan of the brain is performed from the vertex to the skull base. A dose lowering technique was utilized adhering to the principles of ALARA. FINDINGS: Brain parenchyma: The brain parenchyma is normal in appearance. There is no hemorrhage, mass effect, or evidence of acute territorial ischemia by CT criteria. Lucas-white matter differentiation is preserved. No extra-axial fluid collection is seen. Ventricles, sulci, cisterns: Normal in configuration. Intracranial vasculature: The visualized intracranial vasculature at the skull base is normal in appearance. Calvarium: Unremarkable. Sinuses and mastoids: The visualized paranasal sinuses are clear. The mastoid air cells are well pneumatized. Orbits: The bony orbits are grossly intact. IMPRESSION: There is no hemorrhage, mass effect, or evidence of acute territorial ischemia by CT criteria. ACT 112: Negative or not required by law. Electronically signed by: Rakesh Sarabia M.D. 09/12/2020 6:46 PM Dictated: 09/12/201843Transcribed: 09/12/201843 SINGLE VIEW CHEST CLINICAL HISTORY: Strokelike symptoms. FINDINGS: An AP, portable, upright chest radiograph is compared to study dated 03/21/2019 and correlated with chest CT dated 04/14/2019. The examination is degraded by portable technique and apical lordotic positioning. The cardiomediastinal silhouette is unremarkable. There is mild elevation of the right hemidiaphragm. The lungs and pleural spaces are clear. No pneumothorax is seen. The bony thorax is grossly intact. IMPRESSION: No active disease in the chest. ACT 112: Negative or not required by law. Electronically signed by: Rakesh Sarabia M.D. 09/12/2020 7:04 PM Dictated: 09/12/201902Transcribed: 09/12/201902 Hospital Course (1) Stroke-like symptom: Present on admission with right side weakness and headache Possible related to migraine vs elevated blood pressure Stroke alert was called and she was not a candidate for TPA given her blood pressure as well as her rapidly improvement in her symptoms as per stroke tele at [place] CT head was negative for any acute intracranial abnormality CTA head/neck showed no hemorrhage, mass effect, or evidence of acute territorial ischemia MRI head showed no acute intracranial abnormality No focal neuro deficit on exam Neuro consulted- Pending Pt is very anxious to go home today Continue aspirin for now Headache Possible related to elevated BP and stress CT/MRI head negative Improved Hypertension Hypertensive Urgency BP elevated 190/132 on admission Received IV labetalol on admission Continue Amlodipine, Lisinopril carvedilol Will resume Spironolactone on discharge Pt was advised about alcohol cessation since that can cause elevates BP BP normalized Alcohol abuse Alcohol level 233 Pt said that she drinks alcohol about 3 times a week Denies any history of withdrawal or DT Continue alcohol withdrawal protocol with Ativan and Gabapentin Continue Thiamine and folic acid Counseling on alcohol cessation Will monitor for DT or alcohol withdrawal Tobacco abuse Counseling on smoking cessation On Nicotine patch prn Hx substance abuse Past history benzodiazepine/opioid abuse Will not give any prescription for Benzo or opioid Continue monitor closely DVT px on Lovenox subq CODE STATUS FULL CODE Total Time Total Time Spent Total Time Spent (In Minutes): 35 minutes Total Time Includes: Examination of the Patient, Discharge Planning, Medication Reconciliation, Communication With Other Providers and Other Discharge Plan Discharge Items Patient Disposition: Against Medical Advice Reason For Visit: TIA Discharge Diagnosis: Stroke-like symptom Headache Hypertension Alcohol abuse Tobacco abuse Hx substance abuse Condition on Discharge: Good Activity: Resume your previous activity Non-emergency contact: Primary Care Provider Call non-emergency contact if: you have any medication questions Follow-up/Referrals: Angelic Pereira DO [Primary Care Provider] - (Date & Time 09/20/2020 11:10 AMProvider Angelic [facility], [facility] ) Diet: Low Sodium (2gm) Addtl Attending Provider Instructions: Left against medical advice before seeing the neurologist Follow up with primary care provider Dr. Pereira 09/20/2020 @ 11:10 AM Follow up with neurology outpatient Counseling on alcohol cessation and tobacco cessation Continue monitor blood pressure Pending Studies at Discharge: No Stand-Alone Forms: My [facility] [employer], Smoking Cessation Medications and DC Order Prescriptions: Continued spironolactone 50 mg Tablet 50 mg PO QAM RF: 0 benztropine 0.5 mg Tablet 0.5 mg PO HS RF: 0 amlodipine [Norvasc] 10 mg tablet 10 mg PO DAILY Qty: 30 RF: 3 epinephrine [EpiPen] 0.3 mg/0.3 mL Auto-Injector 0.3 mg IM DIRECTED PRN (Reason: Allergic Reaction) RF: 0 carvedilol 25 mg Tablet 25 mg PO BID RF: 0 benzonatate [Tessalon Perles] 100 mg Capsule 100 mg PO TID PRN (Reason: Cough) RF: 0 lisinopril 10 mg Tablet 10 mg PO DAILY RF: 0 mirtazapine 15 mg Tablet 15 mg PO HS RF: 0 Discharge Orders: Left Against Medical Advice (Routine); Ordered 09/13/20 Ordered By: Frankie Hummel Admission Data Admit Date/Time: 09/12/20 20:38 Attending Provider: Frankie Hummel Admit Provider: Juan Pablo Quiroz Primary Care Provider: Angelic Pereira Other Providers: Juan Pablo Quiroz ; Thalia Johnson ; Manjit Oliveros ; Thalia Fofana ; Bj Valiente Other Interventions: Discharge Summary Assessment (RN) Last Done: 09/13/20 15:25
[2020-09-16] MEDS ORDERED: GABAPENTIN 600 MG TAB PO SCH (12:00)
== END 2020-09-13 15:26 | disposition left against medical advice (07) ==
LOC: 2W 18:32 → ED 18:32 → 2W 21:47

== ENCOUNTER 2021-01-13 18:18 | Inpatient (IN) ==
[2021-01-13] MEDS ORDERED: SODIUM CHLORIDE 0.9% 1000ML 1,000 ML IV ONE (18:47)
[2021-01-13] MEDS ORDERED: PROCHLORPERAZINE 2 ML IV ONE (18:47)
[2021-01-13] MEDS ORDERED: hydrOXYzine HCL IM SOLN 50 MG/ML 1 ML VIAL IM STA (18:47)
[2021-01-13] MEDS ORDERED: KETOROLAC 30 MG/ML VIAL IV STA (18:49)
--- NOTE | 2021-01-13 19:08 | Emergency Department Note ---
History of Present Illness General Chief complaint: Headache Stated complaint: MIGRAINE,HIGH BLOOD PRESSURE,FACE NUMB,NAUSEA Time Seen by Provider: 01/13/21 18:38 Source: patient Mode of arrival: ambulatory Limitations: no limitations History of Present Illness Provider complaint: Headache, HTN Onset (ago): hour(s) 3 This 35-year-old female patient presents to the emergency department today for evaluation of headache and hypertension. The patient has a known history of hypertension and associated migraines. She does also have a history of anxiety and states she has been in some very stressful situations recently, suspecting her hypertension and headache to be associated with the stress. The patient does have a prescription for Xanax, but does not like taking the benzodiazepines. She did take "a headache pill" as well as a labetalol (unknown dose) approximately 1 hour prior to arrival with no significant improvement in her symptoms. She denies any dizziness, confusion, vomiting, numbness, tingling, weakness. She does report some nausea. No chest pain or dyspnea. Patient denies any fever or recent illness. She rates her pain an 8/10 and throbbing. Home Medications Medication Instructions Recorded Confirmed Type epinephrine [EpiPen] 0.3 mg IM DIRECTED PRN 05/13/18 01/13/21 History clonazepam 1 mg PO BID PRN 11/05/20 01/13/21 History labetalol 200 mg PO QID 11/05/20 01/13/21 History lorazepam [Ativan] 0.5 - 1 mg PO Q4H PRN #12 tab 11/05/20 01/13/21 Rx clindamycin HCl 0 mg PO QID 01/13/21 01/13/21 History Allergies Allergy/AdvReac Type Severity Reaction Status Date / Time nut - unspecified Allergy Severe Anaphylaxis Verified 01/13/21 19:53 Penicillins Allergy Severe Difficulty Verified 01/13/21 19:53 Breathing tree nut Allergy Severe Anaphylaxis Verified 01/13/21 19:53 morphine Allergy Intermediate Hives Verified 01/13/21 19:53 mushroom Allergy Intermediate Hives Verified 01/13/21 19:53 Past Med/Surg History Medical History Alcohol abuse, unspecified (07/15/12) Anxiety state, unspecified (06/16/11) Bipolar disorder Headache Hypertension (07/15/12) Overdose of antipsychotic Surgical History Cholecystostomy care History of appendectomy (12/25/12) History of dental surgery Tubal ligation status Family History Other No pertinent family history Social History Smoking Status: Current every day smoker Tobacco Type: Cigarettes Cigarettes Per Day: 10; Second Hand Exposure: No; Do You Dip or Chew Tobacco: No; Tobacco Cessation Education Requested by Patient: No Hx Alcohol Use: Yes Alcohol type: wine Hx Substance Use: Yes Last Used Substance: Hours (ago) Last Used Substance Other:: Medical Marijuana yesterday. Hallucinogens 10 years ago Substance Use Type Other:: medical marijuana Preferred Language: Kenyan Communication Ability: Effective Correctional Officer Sergeant Required: No Beliefs That Will Affect Care: None marital status: Current Living Situation: Spouse current occupational status: unemployed current occupation: Prior employment at [employer] How many Children do You have: 4 Other Information That Helps Us Care for You: No Feels Safe at Home: Yes Safety Concerns: Feels Safe At This Time Assistive Devices: Contacts and Glasses Review of Systems A total of 10 systems reviewed and were otherwise negative Physical Exam Vital Signs Vital Signs - 24 hr 01/13/21 18:32 01/13/21 18:57 01/13/21 18:58 Temperature 36.3 C L Temperature Source Oral Pulse Rate 101 H 106 H Pulse Rate [Apical] 89 Pulse Rate from SpO2 Sensor 105 H Respiratory Rate 18 15 22 Respiratory Depth Normal Blood Pressure 182/122 H 154/113 H Blood Pressure [Right Arm] 154/113 H Blood Pressure Mean 142 126 Blood Pressure Mean [Right Arm] 126 Pulse Oximetry 97 96 96 Oxygen Delivery Method Room Air Room Air Room Air Sepsis Recent Fever Within 48 Hours No Sepsis New/Unexplained Change in Mental Status No Sepsis Action Taken by Nursing No Action Required 01/13/21 19:05 01/13/21 19:30 01/13/21 19:45 Temperature Temperature Source Pulse Rate 103 H 100 H 84 Pulse Rate [Apical] Pulse Rate from SpO2 Sensor 101 H 97 H 80 Respiratory Rate 15 20 16 Respiratory Depth Blood Pressure 177/125 H Blood Pressure [Right Arm] Blood Pressure Mean 142 Blood Pressure Mean [Right Arm] Pulse Oximetry 96 98 96 Oxygen Delivery Method Room Air Room Air Room Air Sepsis Recent Fever Within 48 Hours Sepsis New/Unexplained Change in Mental Status Sepsis Action Taken by Nursing 01/13/21 20:00 01/13/21 20:30 01/13/21 20:31 Temperature Temperature Source Pulse Rate 82 92 H 96 H Pulse Rate [Apical] Pulse Rate from SpO2 Sensor 76 93 H 97 H Respiratory Rate 12 19 21 Respiratory Depth Blood Pressure 182/138 H 192/128 H Blood Pressure [Right Arm] Blood Pressure Mean 152 149 Blood Pressure Mean [Right Arm] Pulse Oximetry 97 98 98 Oxygen Delivery Method Room Air Sepsis Recent Fever Within 48 Hours Sepsis New/Unexplained Change in Mental Status Sepsis Action Taken by Nursing 01/13/21 20:32 01/13/21 21:00 01/13/21 21:30 Temperature Temperature Source Pulse Rate 90 87 96 H Pulse Rate [Apical] Pulse Rate from SpO2 Sensor 89 89 93 H Respiratory Rate 22 20 12 Respiratory Depth Blood Pressure 185/132 H Blood Pressure [Right Arm] Blood Pressure Mean 149 Blood Pressure Mean [Right Arm] Pulse Oximetry 98 97 97 Oxygen Delivery Method Room Air Sepsis Recent Fever Within 48 Hours Sepsis New/Unexplained Change in Mental Status Sepsis Action Taken by Nursing 01/13/21 21:31 01/13/21 22:00 01/13/21 22:07 Temperature Temperature Source Pulse Rate 96 H 91 H 90 Pulse Rate [Apical] Pulse Rate from SpO2 Sensor 96 H 93 H 94 H Respiratory Rate 18 22 22 Respiratory Depth Blood Pressure 175/120 H 159/105 H Blood Pressure [Right Arm] Blood Pressure Mean 138 123 Blood Pressure Mean [Right Arm] Pulse Oximetry 97 97 98 Oxygen Delivery Method Room Air Room Air Sepsis Recent Fever Within 48 Hours Sepsis New/Unexplained Change in Mental Status Sepsis Action Taken by Nursing 01/13/21 22:08 01/13/21 22:30 01/13/21 22:31 Temperature Temperature Source Pulse Rate 87 88 91 H Pulse Rate [Apical] Pulse Rate from SpO2 Sensor 86 89 84 Respiratory Rate 14 18 17 Respiratory Depth Blood Pressure 182/103 H Blood Pressure [Right Arm] Blood Pressure Mean 129 Blood Pressure Mean [Right Arm] Pulse Oximetry 97 97 97 Oxygen Delivery Method Sepsis Recent Fever Within 48 Hours Sepsis New/Unexplained Change in Mental Status Sepsis Action Taken by Nursing VITALS: Vitals are noted on the nurse's note and reviewed by myself. Pt. is hypertensive. GENERAL: This is a 35 year old white female, in no acute distress, nondiaphoretic, well-developed well-nourished. SKIN: The skin was without rashes, erythema, edema, or bruising. There is no tenting of the skin. Capillary refill less than 2 seconds. HEAD: Normocephalic atraumatic. EARS: External auditory canals clear, tympanic membranes pearly goncalves without erythema or effusion bilaterally. EYES: Pupils equal round and reactive to light and accommodation. Conjunctivae without injection, sclerae without icterus. Extraocular movements intact. NOSE: Patent, turbinates without inflammation or discharge. No sinus tenderness. MOUTH: Mucous membranes moist. Tonsils are not enlarged. Pharynx without erythema or exudate. Uvula midline. Airway patent. Tongue does not deviate. NECK: Supple without nuchal rigidity. No lymphadenopathy. Cervical spine is nontender. No JVD. HEART: Regular rate and rhythm without murmurs gallops or rubs. LUNGS: Clear to auscultation bilaterally without wheezes, rales or rhonchi. No retractions or accessory muscle use. ABDOMEN: Positive bowel sounds x 4. Normal tympanic percussion. Soft, nontender, without masses or organomegaly. Dan sign negative. No guarding or rebound tenderness. MUSCULOSKELETAL: No muscle atrophy, erythema, or edema noted. Full range of motion without joint tenderness in all extremities. No tenderness to palpation. Normal gait. Strength 5/5 throughout. NEURO: Patient was alert and oriented to person place and time. Normal sensation to light and sharp touch. No focal neurological deficits. Course Course The patient was seen and evaluated as above. Patient is declining any benzodiazepines. She indicates she is not interested in any addictive substances due to history of addiction. An order was placed for continuous cardiac monitoring. The monitor shows a normal sinus rhythm at a rate of 90 bpm. IV access obtained, labs drawn. Patient medicated with IV fluids, Toradol, hydroxyzine, Reglan. She did advise nursing staff that she took multiple doses of Compazine as well as labetalol at home due to her symptoms. Labs reviewed by myself. Patient continues to complain of headache and hypertension. She was medicated with acetaminophen and hydralazine. I discussed the case with my attending physician. Patient continues to complain of headache, nausea, and hypertension. She was medicated with 10 mg IV labetalol, Reglan, Benadryl. Recommended inpatient management and the patient was agreeable. I discussed case with the flight operations manager. I discussed the case with Dr. Villalobos, [facility] hospitalist physician. He did agree to see and evaluate the patient for admission. Please see hospitalist dictation regarding ongoing management and care of this patient. Administered Medications Discontinued Medications Diphenhydramine HCl (Diphenhydramine 50 Mg/Ml Vial) 25 mg IV NOW STA Stop: 01/13/21 20:54 Last Admin: 01/13/21 21:10 Dose: 25 mg Documented by: [id number] Hydralazine HCl (Hydralazine Hcl 20 Mg/Ml Vial) 10 mg IV NOW STA Stop: 01/13/21 20:14 Last Admin: 01/13/21 20:24 Dose: 10 mg Documented by: [id number] Hydroxyzine HCl (Hydroxyzine Hcl Im Soln 50 Mg/Ml 1 Ml Vial) 50 mg IM NOW STA Stop: 01/13/21 18:48 Last Admin: 01/13/21 19:50 Dose: Not Given Documented by: [id number] Hydroxyzine HCl (Hydroxyzine Hcl 25 Mg Tab) 25 mg PO NOW STA Stop: 01/13/21 19:30 Last Admin: 01/13/21 19:38 Dose: 25 mg Documented by: [id number] Sodium Chloride (Nss 1000ml) 1,000 mls @ 999 mls/hr IV .Q1H1M ONE Stop: 01/13/21 19:47 Last Infusion: 01/13/21 20:43 Dose: 0 mls/hr Documented by: [id number] Admin: 01/13/21 19:40 Dose: 999 mls/hr Documented by: [id number] Prochlorperazine (Compazine) 2 mls @ 1 mls/min IV ONE ONE Stop: 01/13/21 18:48 Last Admin: 01/13/21 19:50 Dose: Not Given Documented by: [id number] Acetaminophen (Ofirmev) 1,000 mg in 100 mls @ 400 mls/hr IV NOW STA Stop: 01/13/21 20:27 Last Infusion: 01/13/21 20:43 Dose: 0 mls/hr Documented by: [id number] Admin: 01/13/21 20:24 Dose: 400 mls/hr Documented by: [id number] Ketorolac Tromethamine (Ketorolac 30 Mg/Ml Vial) 30 mg IV NOW STA Stop: 01/13/21 18:50 Last Admin: 01/13/21 19:37 Dose: 30 mg Documented by: [id number] Labetalol HCl (Labetalol Hcl Iv 5 Mg/Ml 20ml) 10 mg IV NOW STA Stop: 01/13/21 20:54 Last Admin: 01/13/21 21:06 Dose: 10 mg Documented by: [id number] Cosigned by: [id number] Metoclopramide HCl (Metoclopramide Hcl Inj 5 Mg/Ml 2 Ml Vial) 10 mg IV NOW STA Stop: 01/13/21 20:54 Last Admin: 01/13/21 21:09 Dose: 10 mg Documented by: [id number] Ondansetron HCl (Ondansetron Inj 2 Mg/Ml 2 Ml Vial) 4 mg IV NOW STA Stop: 01/13/21 19:30 Last Admin: 01/13/21 19:36 Dose: 4 mg Documented by: [id number] Medical Decision Making Differential Diagnosis Benign hypertension, hypertensive emergency, cardiovascular pathology, toxicologic, pheochromocytoma, electrolyte abnormality, renal disease, endorgan damage, Migraine headache, meningitis, sinusitis, CO exposure, ICH, SAH, infection, tumor, headache, sinus thrombosis, arterial dissection, as well as o ther pathologies. Medical Records Attestation: I reviewed the patient's medical records. Patient has been seen and admitted in the hospital several times in the past for the same symptoms with negative brain imaging. Home Medications Current Medication List: was personally reviewed by me Laboratory Data Attestation: I reviewed the patient's lab results. No leukocytosis, anemia, thrombocytopenia. Renal, hepatic function, and electrolytes without significant abnormality. Result diagrams: 01/13/21 19:46 01/13/21 19:46 Lab Results 01/13/21 01/13/21 01/13/21 Range/Units 19:46 19:46 21:35 WBC 10.21 (4.8-10.8) K/uL RBC 4.74 (4.2-5.4) M/uL Hgb 15.6 (12.0-16.0) g/dL Hct 44.7 (37-47) % MCV 94.3 (80-100) fL MCH 32.9 (25-34) pg MCHC 34.9 (32-36) g/dL RDW Std Deviation 43.9 (36.4-46.3) fL RDW Coeff of Carmen 12.7 (11.5-14.5) % Plt Count 261 (130-400) K/uL MPV 9.7 (7.4-10.4) fL Immature Gran % (Auto) 0.4 % Neut % (Auto) 43.0 % Lymph % (Auto) 40.9 % [place] % (Auto) 7.6 % Eos % (Auto) 7.6 % Baso % (Auto) 0.5 % Neut # (Auto) 4.38 (1.4-6.5) K/uL Lymph # (Auto) 4.18 H (1.2-3.4) K/uL [place] # (Auto) 0.78 H (0.11-0.59) K/uL Eos # (Auto) 0.78 H (0-0.5) K/uL Baso # (Auto) 0.05 (0-0.2) K/uL Immature Gran # (Auto) 0.04 H (0.00-0.02) K/uL Sodium 141 (136-145) mmol/L Potassium 3.5 (3.5-5.1) mmol/L Chloride 107 (98-107) mmol/L Carbon Dioxide 25 (21-32) mmol/L Anion Gap 9.0 (3-11) BUN 9 (7-18) mg/dl Creatinine 0.69 (0.6-1.2) mg/dl Est Cr Clr Drug Dosing 150.0 ml/min Est GFR ( Amer) 132.6 ml/min Est GFR (Non-Af Amer) 114.4 ml/min BUN/Creatinine Ratio 13.1 (10-20) Glucose 92 (70-99) mg/dl Calcium 8.9 (8.5-10.1) mg/dl Magnesium 1.9 (1.8-2.4) mg/dl Total Bilirubin 0.4 (0.2-1) mg/dl AST 60 H (15-37) U/L ALT 87 H (12-78) U/L Alkaline Phosphatase 66 (45-117) U/L Troponin I < 0.015 (0-0.045) ng/ml Total Protein 7.7 (6.4-8.2) gm/dl Albumin 4.1 (3.4-5.0) gm/dl Globulin 3.6 (2.5-4.0) gm/dl Albumin/Globulin Ratio 1.1 (0.9-2) TSH 2.480 (0.300-4.500) uIu/ml COVID-19 Eval Order Covid19 at [facility] SARS-CoV-2 (PCR) (Negative) 01/13/21 Range/Units 21:35 WBC (4.8-10.8) K/uL RBC (4.2-5.4) M/uL Hgb (12.0-16.0) g/dL Hct (37-47) % MCV (80-100) fL MCH (25-34) pg MCHC (32-36) g/dL RDW Std Deviation (36.4-46.3) fL RDW Coeff of Carmen (11.5-14.5) % Plt Count (130-400) K/uL MPV (7.4-10.4) fL Immature Gran % (Auto) % Neut % (Auto) % Lymph % (Auto) % [place] % (Auto) % Eos % (Auto) % Baso % (Auto) % Neut # (Auto) (1.4-6.5) K/uL Lymph # (Auto) (1.2-3.4) K/uL [place] # (Auto) (0.11-0.59) K/uL Eos # (Auto) (0-0.5) K/uL Baso # (Auto) (0-0.2) K/uL Immature Gran # (Auto) (0.00-0.02) K/uL Sodium (136-145) mmol/L Potassium (3.5-5.1) mmol/L Chloride (98-107) mmol/L Carbon Dioxide (21-32) mmol/L Anion Gap (3-11) BUN (7-18) mg/dl Creatinine (0.6-1.2) mg/dl Est Cr Clr Drug Dosing ml/min Est GFR ( Amer) ml/min Est GFR (Non-Af Amer) ml/min BUN/Creatinine Ratio (10-20) Glucose (70-99) mg/dl Calcium (8.5-10.1) mg/dl Magnesium (1.8-2.4) mg/dl Total Bilirubin (0.2-1) mg/dl AST (15-37) U/L ALT (12-78) U/L Alkaline Phosphatase (45-117) U/L Troponin I (0-0.045) ng/ml Total Protein (6.4-8.2) gm/dl Albumin (3.4-5.0) gm/dl Globulin (2.5-4.0) gm/dl Albumin/Globulin Ratio (0.9-2) TSH (0.300-4.500) uIu/ml COVID-19 Eval Order SARS-CoV-2 (PCR) NEGATIVE (Negative) Blood Pressure Blood Pressure Findings: Elevated blood pressure Blood Pressure Disposition: elevated BP felt to be situational Head Trauma GCS Score: 15 MDM Narrative This 35-year-old female patient presents to the emergency department today for evaluation of hypertension and headache. Patient does have a history of the same symptoms. Symptoms do seem to be anxiety provoked. 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 Patient's blood pressure was difficult to control in the emergency department. She was treated with a migraine cocktail and with hydroxyzine for anxiety. She was medicated with hydralazine followed by labetalol and continued to experience hypertension and headache. The patient will be admitted to the hospitalist [facility] for ongoing management of her symptoms. Please see hospitalist dictation regarding ongoing management care of this patient. The chart was completed utilizing [employer] Speech voice recognition software. Grammatical errors, random word insertions, pronoun errors, and incomplete sentences are an occasional consequence of this system due to software limitations, ambient noise, and hardware issues. Any formal questions or concerns about the content, text, or information contained within the body of this dictation should be directly addressed to the provider for clarification. Impression & Plan Hypertension, Headache, Anxiety Discharge Plan Visit Data Chief Complaint: Headache Stated Complaint: MIGRAINE,HIGH BLOOD PRESSURE,FACE NUMB,NAUSEA ED Provider: Manjit Shah ED Midlevel Provider: Rebeka Mittal Discharge Problem: Hypertension, Headache, Anxiety Patient Disposition: Admitted As Inpatient Condition: Good Forms Stand Alone Forms: [employer] Prescriptions Prescriptions: No Action epinephrine [EpiPen] 0.3 mg/0.3 mL Auto-Injector 0.3 mg IM DIRECTED PRN (Reason: Allergic Reaction) RF: 0 labetalol 200 mg tablet 200 mg PO QID RF: 0 clonazepam 1 mg tablet 1 mg PO BID PRN (Reason: Anxiety) RF: 0 lorazepam [Ativan] 0.5 mg tablet 0.5 - 1 mg PO Q4H PRN (Reason: anxiety) Qty: 12 RF: 0 clindamycin HCl 300 mg Capsule 0 mg PO QID RF: 0 Referrals Referrals: Angelic Pereira DO [Primary Care Provider] - Discharge Problem: Hypertension Qualifiers: Hypertension type: unspecified Qualified Code(s): I10 - Essential (primary) hypertension Headache Qualifiers: Headache type: unspecified Headache chronicity pattern: acute headache Intractability: intractable Qualified Code(s): R51.9 - Headache, unspecified
[2021-01-13] MEDS ORDERED: hydrOXYzine HCl 25 MG TAB PO STA (19:29)
[2021-01-13] MEDS ORDERED: ONDANSETRON INJ 2 MG/ML 2 ML VIAL IV STA (19:29)
[2021-01-13 19:59] LABS: Basophils # (auto) 0.05 K/uL (0-0.2); Basophils % (auto) 0.5 %; Eosinophils # (auto) 0.78 K/uL (0-0.5); Eosinophils % (auto) 7.6 %; Hematocrit (blood only) 44.7 % (37-47); Hemoglobin 15.6 g/dL (12.0-16.0); Immature Granulocytes # (auto) 0.04 K/uL (0.00-0.02); Immature Granulocytes % (auto) 0.4 %; Lymphocytes # (auto) 4.18 K/uL (1.2-3.4); Lymphocytes % (auto) 40.9 %; Mean Corpuscular Hemoglobin 32.9 pg (25-34); Mean Corpuscular Hgb Conc 34.9 g/dL (32-36); Mean Corpuscular Volume 94.3 fL (80-100); Mean Platelet Volume 9.7 fL (7.4-10.4); Monocytes # (auto) 0.78 K/uL (0.11-0.59); Monocytes % (auto) 7.6 %; Neutrophils # (auto) 4.38 K/uL (1.4-6.5); Platelet Count 261 K/uL (130-400); RDW Coefficient of Variation 12.7 % (11.5-14.5); RDW Standard Deviation 43.9 fL (36.4-46.3); Red Blood Count 4.74 M/uL (4.2-5.4); White Blood Count 10.21 K/uL (4.8-10.8)
[2021-01-13 20:10] LABS: Albumin Level 4.1 gm/dl (3.4-5.0); Aspartate Aminotransferase 60 U/L (15-37); BUN Creatinine Ratio 13.1 (10-20); Blood Urea Nitrogen 9 mg/dl (7-18); Calcium 8.9 mg/dl (8.5-10.1); Carbon Dioxide 25 mmol/L (21-32); Chloride 107 mmol/L (98-107); Est GFR (African American) 132.6 ml/min; Est GFR (Non-African American) 114.4 ml/min; Glucose 92 mg/dl (70-99); Magnesium 1.9 mg/dl (1.8-2.4); Potassium 3.5 mmol/L (3.5-5.1); Sodium 141 mmol/L (136-145)
[2021-01-13] MEDS ORDERED: hydrALAZINE HCL 20 MG/ML VIAL IV STA (20:13)
[2021-01-13] MEDS ORDERED: ACETAMINOPHEN 1,000 MG/100 ML VIAL IV STA (20:13)
[2021-01-13 20:20] LABS: Alanine Aminotransferase 87 U/L (12-78); Albumin Globulin Ratio 1.1 (0.9-2); Alkaline Phosphatase 66 U/L (45-117); Bilirubin,Total 0.4 mg/dl (0.2-1); Globulin 3.6 gm/dl (2.5-4.0); Total Protein 7.7 gm/dl (6.4-8.2); Troponin I < 0.015 ng/ml (0-0.045)
[2021-01-13] MEDS ORDERED: diphenhydrAMINE 50 MG/ML VIAL IV STA (20:53)
[2021-01-13] MEDS ORDERED: METOCLOPRAMIDE HCL INJ 5 MG/ML 2 ML VIAL IV STA (20:53)
[2021-01-13] MEDS ORDERED: LABETALOL HCL IV 5 MG/ML 20ML IV STA (20:53)
[2021-01-14] MEDS ORDERED: KETOROLAC 30 MG/ML VIAL IV STA (00:03)
[2021-01-14] MEDS ORDERED: KETOROLAC 30 MG/ML VIAL ONE (00:03)
[2021-01-14] MEDS ORDERED: LABETALOL HCL IV 5 MG/ML 20ML IV PRN (00:25)
[2021-01-14] MEDS ORDERED: SPIRONOLACTONE 25 MG TAB PO ONE (00:25)
[2021-01-14] MEDS ORDERED: NITROGLYCERIN SL 0.4 MG/TAB TAB SL PRN (00:25)
[2021-01-14] MEDS ORDERED: ACETAMINOPHEN 325 MG TAB PO PRN (00:25)
[2021-01-14] MEDS ORDERED: ONDANSETRON INJ 2 MG/ML 2 ML VIAL IV PRN (00:25)
[2021-01-14] MEDS ORDERED: EPINEPHrine ADULT AUTO-INJECT 0.3 MG SYR IM PRN (00:25)
[2021-01-14] MEDS ORDERED: LORazepam 0.5 MG/1 ML VIAL IV PRN (00:25)
[2021-01-14] MEDS ORDERED: oxyCODONE HCL IR 5 MG TAB (IMMEDIATE RELEASE) PO STA (00:37)
[2021-01-14] MEDS ORDERED: THIAMINE HCL 100 MG in SYRINGE 9 ML IV ONE (00:45)
[2021-01-14] MEDS: NICOTINE 21 MG/24 HR TDSY TD SCH ×2 (01:05→07:55)
[2021-01-14] MEDS: clonazePAM 1 MG TAB PO PRN ×2 (01:05→13:28)
--- NOTE | 2021-01-14 01:37 | History and Physical Report ---
DATE OF ADMISSION: 01/13/2021 CHIEF COMPLAINT: Severe headache and elevated blood pressure. HISTORY OF PRESENT ILLNESS: This 35-year-old female with past medical history significant for hypertension, morbid obesity, posttraumatic stress disorder, opioid dependence in remission, bipolar disorder, tobacco use, generalized anxiety disorder, says that she drinks about 3-4 beers 4 times a week and she does not get withdrawal symptoms, presents with severe headache. The patient has a similar presentation in the past, headaches and with elevated blood pressure. Previously as per the Epic she was supposed to be on spironolactone, amlodipine, Coreg, hydrochlorothiazide, and lisinopril. But the patient states she is taking only amlodipine, spironolactone and labetalol. She states today she was very anxious. Generally the blood pressure is running okay with the medication, but today she was very anxious. One of her neighbors is a drug peddler and as per patient color repairer were asking her to testify and she is feeling very anxious causing her blood pressure go high and she was getting severe headaches, that is why she came to the hospital. Her systolic blood pressure was in like 190s and 180s and diastolic in 100s to 120s in the ER, she received hydralazine and labetalol. It is still running high, so we are called for admission. The patient denies any other complaints. No blurred vision, no double vision, no earache, no runny nose, no sore throat, no cough, no fever, no chest pain or shortness of breath. No nausea, no abdominal pain. Normal bowel and bladder movements. Currently, resting comfortably and hemodynamically stable. ALLERGIES: PENICILLINS, TREE NUT, MORPHINE, MUSHROOMS. PAST MEDICAL HISTORY: As mentioned above. PAST SURGICAL HISTORY: deliveries, cholecystectomy, hysteroscopy, endometrial ablation, ligation of oviducts, appendectomy, surgical removal of erupted tooth. MEDICATIONS: As per patient, the patient is on labetalol 200 mg p.o. b.i.d., amlodipine 10 mg p.o. daily, spironolactone 50 mg p.o. b.i.d., Klonopin 1 mg p.o. b.i.d. p.r.n., Ativan 1 mg p.o. q. 4 hours p.r.n. FAMILY HISTORY: Significant for father has a history of alcoholism, mother has bipolar disorder, sister has drug abuse. Mother has heart attack. Sister has kidney disease. Mother had stroke. Brother has Asperger's, sister has kidney stones. SOCIAL HISTORY: . Smoked half pack a day for 7 years. Now 4 cigarettes a day. She drinks alcohol 3-4 beers 4 times a week. She used medical marijuana. Denies any other drug use. REVIEW OF SYSTEMS: As per HPI. Rest of the review of systems negative. PHYSICAL EXAMINATION: GENERAL: The patient is morbidly obese, not in acute distress. VITAL SIGNS: Temperature 36.3, pulse 91, respiratory rate 17, blood pressure of 182/103, oxygen 97% on room air. HEENT: Pupils equal, round, reactive to light. Oral mucosa moist. NECK: No JVD. No neck masses. CARDIOVASCULAR: S1, S2 heard, regular rate and rhythm. No murmur, no gallop. RESPIRATORY SYSTEM: Normal AP diameter. No accessory muscle use. No wheezing, no crackles. ABDOMEN: Soft, bowel sounds present, nontender. No distention. CENTRAL NERVOUS SYSTEM: Cranial nerves II-XII grossly intact. Nonfocal. EXTREMITIES: No edema, no erythema. LABORATORY DATA: WBC 10, hemoglobin 15.6, hematocrit 44.7, platelets 261. Sodium 141, potassium 3.5, chloride 107, bicarbonate 25, BUN 9, creatinine 0.6, serum glucose 92, calcium 8.9, magnesium 1.9, total bilirubin 0.4, AST 60, ALT 87, alkaline phosphatase 66. Troponin I less than 0.015. TSH 2.4. SARS-CoV-2 PCR negative. EKG: Normal sinus rhythm with rate of 93. Possible left atrial enlargement, no significant change was found. ASSESSMENT AND PLAN: This is a 35-year-old female who presents with hypertensive urgency and severe headache. 1. Hypertensive urgency. The headache possibly from elevated BP. Blood pressure controlled with IV labetalol p.r.n. Continue home medication of labetalol and amlodipine and spironolactone. We will monitor the patient in the hospital. If any concern, will get a CT of the head. She had multiple imaging studies in the past for similar complaints as per the ER. Also brain MRI in August 2020 which was okay. 2. Generalized anxiety disorder. Continue Ativan. Continue Klonopin. 3. History of alcoholism, patient drinks 3-4 beers 4 times a week. We will monitor for withdrawal. Placed on thiamine, multivitamin, folic acid and IV Ativan p.r.n. 4. Deep venous thrombosis prophylaxis, sequential compression devices. DISPOSITION: Admit to tele floor. Expect discharge home and follow with family doctor. Level 1 full code. MTDD
[2021-01-14 06:10] LABS: Basophils # (auto) 0.06 K/uL (0-0.2); Basophils % (auto) 0.5 %; Eosinophils # (auto) 0.89 K/uL (0-0.5); Eosinophils % (auto) 7.7 %; Hematocrit (blood only) 41.5 % (37-47); Hemoglobin 14.2 g/dL (12.0-16.0); Immature Granulocytes # (auto) 0.06 K/uL (0.00-0.02); Immature Granulocytes % (auto) 0.5 %; Lymphocytes # (auto) 3.54 K/uL (1.2-3.4); Lymphocytes % (auto) 30.5 %; Mean Corpuscular Hemoglobin 32.9 pg (25-34); Mean Corpuscular Hgb Conc 34.2 g/dL (32-36); Mean Corpuscular Volume 96.1 fL (80-100); Mean Platelet Volume 9.9 fL (7.4-10.4); Monocytes # (auto) 1.19 K/uL (0.11-0.59); Monocytes % (auto) 10.2 %; Neutrophils # (auto) 5.87 K/uL (1.4-6.5); Neutrophils % (auto) 50.6 %; Platelet Count 249 K/uL (130-400); RDW Coefficient of Variation 12.9 % (11.5-14.5); RDW Standard Deviation 44.9 fL (36.4-46.3); Red Blood Count 4.32 M/uL (4.2-5.4); White Blood Count 11.61 K/uL (4.8-10.8)
[2021-01-14 06:39] LABS: BUN Creatinine Ratio 13.8 (10-20); Calcium 7.8 mg/dl (8.5-10.1); Creatinine Clr Calc Pharmacy 140.7 ml/min; Est GFR (African American) 123.4 ml/min; Est GFR (Non-African American) 106.4 ml/min; Magnesium 1.6 mg/dl (1.8-2.4); Potassium 3.2 mmol/L (3.5-5.1)
[2021-01-14] MEDS: SPIRONOLACTONE 25 MG TAB PO SCH ×2 (07:54→20:50)
[2021-01-14] MEDS: amLODIPine BESYLATE 5 MG TAB PO SCH (07:54)
[2021-01-14] MEDS: LABETALOL HCL 200 MG TAB PO SCH ×4 (07:54→20:50)
[2021-01-14] MEDS: THIAMINE HCL 50 MG TABLET PO SCH (07:54)
[2021-01-14] MEDS: CEROVITE ADV FORMULA TAB PO SCH (07:55)
[2021-01-14] MEDS: FOLIC ACID 1 MG TAB PO SCH (07:55)
[2021-01-14] MEDS ORDERED: KETOROLAC 30 MG/ML VIAL IV PRN (08:19)
--- NOTE | 2021-01-14 10:06 | Electrocardiogram Report ---
Test Reason : Blood Pressure : / mmHG Vent. Rate : 093 BPM Atrial Rate : 093 BPM P-R Int : 152 ms QRS Dur : 102 ms QT Int : 382 ms P-R-T Axes : 062 049 054 degrees QTc Int : 474 ms Normal sinus rhythm Possible Left atrial enlargement RSR' or QR pattern in V1 suggests right ventricular conduction delay Borderline ECG When compared with ECG of 05-NOV-2020 02:15, No significant change was found Confirmed by Morgan Zarate ([id number]) on 01/14/2021 10:06:00 AM Referred By: REFERRED SELF Confirmed By:Morgan Zarate
[2021-01-14] MEDS ORDERED: POTASSIUM CHLORIDE CRTAB 20 MEQ TABCR PO STA (10:11)
--- NOTE | 2021-01-14 14:45 | Hospitalist Progress Note ---
Date of Service January 14, 2021 Assessment & Plan (1) Hypertension: Admitted with hypertensive urgency associated with headache Has been put back on her usual medications for blood pressure Patient seems to be improving (2) JEAN (generalized anxiety disorder): Has had history of anxiety With recent suffering of severe anxiety Likely the cause for the blood pressure to go too high Anxiety seems to be controlled now (3) Headache: Severe headache associated with high blood pressure Received 1 dose of oxycodone since admission and will be avoided anymore from now Received Toradol intravenously and the headache seems to be controlled History of alcoholism Does not have any overt drinking and/or binge No signs of withdrawal DVT prophylaxis SCDs CODE STATUS Full Likely discharge tomorrow Admission and Anticipated Discharge Date Admission Date: January 13, 2021 Subjective 01/14/2021 The patient was seen and examined in telemetry unit She was admitted with severe anxiety, high blood pressure and headache She has been feeling much better as of this morning and complaint of headache She was given Toradol and the headache resolved Review of Systems Review of Systems: All systems reviewed and are unremarkable except as noted below Neurologic: no dizziness and no headache(s) Physical Exam Physical Exam: Lying in bed comfortably Constitutional: well developed, + well hydrated and + obese; not ill appearing Eyes: PERRL, conjunctivae normal, anicteric sclerae ENMT: external ear and nose normal, oropharynx normal Neck: trachea midline, no thyromegaly Respiratory: no respiratory distress Auscultation: lungs clear to auscultation bilaterally Cardiovascular: Rate/Rhythm: regular rate and regular rhythm Heart Sounds: no murmur Extremities: no edema Gastrointestinal (Abdomen): Inspection/Auscultation: normal bowel sounds; abdomen not distended Percussion/Palpation: abdomen soft; abdomen nontender Musculoskeletal: No acute arthritis in any joint Neurologic: Alert, awake and oriented x3 Results & Data Results & Data ([facility]) Vital Signs (Past 12 Hours) Vital Signs Temp Pulse Pulse Pulse Resp BP BP 01/14/21 12:18 36.5 C 84 22 141/96 H 01/14/21 10:43 86 01/14/21 07:23 37.2 C 94 H 19 163/148 H 01/14/21 05:55 151/111 H 01/14/21 03:48 36.7 C 98 H 18 153/88 H Pulse Ox 01/14/21 12:18 94 01/14/21 10:43 01/14/21 07:23 97 01/14/21 05:55 01/14/21 03:48 97 Laboratory Results Short CBC 01/13/21 01/14/21 Range/Units 19:46 05:39 WBC 10.21 11.61 H (4.8-10.8) K/uL Hgb 15.6 14.2 (12.0-16.0) g/dL Hct 44.7 41.5 (37-47) % Plt Count 261 249 (130-400) K/uL BMP 01/13/21 01/14/21 19:46 05:39 Sodium 141 140 Potassium 3.5 3.2 L Chloride 107 108 H Carbon Dioxide 25 26 BUN 9 10 Creatinine 0.69 0.74 Glucose 92 82 Calcium 8.9 7.8 L Cardiac Enzymes 01/13/21 Range/Units 19:46 Troponin I < 0.015 (0-0.045) ng/ml Liver Function 01/13/21 Range/Units 19:46 Total Bilirubin 0.4 (0.2-1) mg/dl AST 60 H (15-37) U/L ALT 87 H (12-78) U/L Alkaline Phosphatase 66 (45-117) U/L Albumin 4.1 (3.4-5.0) gm/dl Medications Administered Current Inpatient Medications Acetaminophen (Acetaminophen 325 Mg Tab) 650 mg PO Q4H PRN PRN Reason: Pain or Fever Stop: 02/13/21 00:24 Last Admin: 01/14/21 05:54 Dose: 650 mg Documented by: Amlodipine Besylate (Amlodipine Besylate 5 Mg Tab) 10 mg PO [facility] Stop: 02/13/21 08:59 Last Admin: 01/14/21 07:54 Dose: 10 mg Documented by: Clonazepam (Clonazepam 1 Mg Tab) 1 mg PO BID PRN PRN Reason: Anxiety Stop: 02/13/21 00:24 Last Admin: 01/14/21 13:28 Dose: 1 mg Documented by: Epinephrine HCl (Epinephrine Adult Auto-Inject 0.3 Mg Syr) 0.3 mg IM UD PRN PRN Reason: Allergic Reaction Stop: 02/13/21 00:24 Folic Acid (F[facility] 1 Mg Tab) [facility] Stop: 02/13/21 08:59 Last Admin: 01/14/21 07:55 Dose: 1 mg Documented by: Lorazepam (Ativan) 0.5 mg in 1 mls @ 1 mls/min IV Q4H PRN PRN Reason: Anxiety/Agitation Stop: 02/13/21 00:24 Ketorolac Tromethamine (Ketorolac 30 Mg/Ml Vial) 30 mg IV Q6H PRN PRN Reason: Pain Stop: 01/19/21 08:18 Last Admin: 01/14/21 11:06 Dose: 30 mg Documented by: Labetalol HCl (Labetalol Hcl 200 Mg Tab) 200 mg PO QID [facility] Stop: 02/13/21 08:59 Last Admin: 01/14/21 13:28 Dose: 200 mg Documented by: Labetalol HCl (Labetalol Hcl Iv 5 Mg/Ml 20ml) 10 mg IV Q4H PRN PRN Reason: Hypertension Stop: 02/13/21 00:24 Miscellaneous (Remove Nicoderm Patch) 1 ea N/A DAILY@0859 [facility] Stop: 02/13/21 08:58 Last Admin: 01/14/21 07:55 Dose: 1 ea Documented by: Multivitamins/Minerals (Cerovite Adv Formula Tab) 1 tab PO QAM [facility] Stop: 02/13/21 08:59 Last Admin: 01/14/21 07:55 Dose: 1 tab Documented by: Nicotine (Nicotine 21 Mg/24 Hr Tdsy) 21 mg TD DAILY [facility] Stop: 02/13/21 00:34 Last Admin: 01/14/21 07:55 Dose: 21 mg Documented by: Nitroglycerin (Nitroglycerin Sl 0.4 Mg/Tab Tab) 0.4 mg SL UD PRN PRN Reason: Chest Pain Stop: 02/13/21 00:24 Ondansetron HCl (Ondansetron Inj 2 Mg/Ml 2 Ml Vial) 4 mg IV Q6H PRN PRN Reason: Nausea Stop: 02/13/21 00:24 Last Admin: 01/14/21 08:01 Dose: 4 mg Documented by: Spironolactone (Spironolactone 25 Mg Tab) 25 mg PO BID [facility] Stop: 02/13/21 08:59 Last Admin: 01/14/21 07:54 Dose: 25 mg Documented by: Thiamine HCl (Thiamine Hcl 50 Mg Tablet) 50 mg PO QAM [facility] Stop: 02/13/21 08:59 Last Admin: 01/14/21 07:54 Dose: 50 mg Documented by: (1) Headache Headache chronicity pattern: acute headache Headache type: unspecified Intractability: intractable Qualified Code(s): R51.9 - Headache, unspecified (2) Hypertension Hypertension type: unspecified Qualified Code(s): I10 - Essential (primary) hypertension
[2021-01-14] MEDS ORDERED: hydrALAZINE HCL 20 MG/ML VIAL IV ONE ×2 (19:27→19:29)
[2021-01-14] MEDS: MAGNESIUM SULFATE / D5W 1 GM/100 ML BAG IV SCH ×2 (19:58→21:59)
[2021-01-14 20:12] LABS: Potassium 3.9 mmol/L (3.5-5.1)
[2021-01-14 20:16] LABS: Magnesium 1.8 mg/dl (1.8-2.4)
[2021-01-15] MEDS: clonazePAM 1 MG TAB PO PRN ×2 (00:09→11:54)
[2021-01-15] MEDS: NICOTINE 21 MG/24 HR TDSY TD SCH (08:15)
[2021-01-15] MEDS: FOLIC ACID 1 MG TAB PO SCH (08:16)
[2021-01-15] MEDS: SPIRONOLACTONE 25 MG TAB PO SCH (08:16)
[2021-01-15] MEDS: LABETALOL HCL 200 MG TAB PO SCH ×2 (08:16→13:39)
[2021-01-15] MEDS: THIAMINE HCL 50 MG TABLET PO SCH (08:16)
[2021-01-15] MEDS: amLODIPine BESYLATE 5 MG TAB PO SCH (08:16)
[2021-01-15] MEDS: CEROVITE ADV FORMULA TAB PO SCH (08:16)
--- NOTE | 2021-01-15 10:28 | Electrocardiogram Report ---
Test Reason : Blood Pressure : / mmHG Vent. Rate : 088 BPM Atrial Rate : 088 BPM P-R Int : 148 ms QRS Dur : 106 ms QT Int : 394 ms P-R-T Axes : 057 044 047 degrees QTc Int : 476 ms Normal sinus rhythm Normal ECG When compared with ECG of 13-JAN-2021 18:58, No significant change was found Confirmed by Pradip Mcleod ([id number]) on 01/15/2021 10:28:11 AM Referred By: REFERRED SELF Confirmed By:Pradip Mcleod
--- NOTE | 2021-01-15 12:37 | Hospitalist Progress Note ---
Date of Service January 15, 2021 Assessment & Plan (1) Hypertension: Admitted with hypertensive urgency associated with headache Has been put back on her usual medications for blood pressure Blood pressure is well controlled (2) JEAN (generalized anxiety disorder): Has had history of anxiety With recent suffering of severe anxiety Likely the cause for the blood pressure to go too high Anxiety seems to be controlled now (3) Headache: Severe headache associated with high blood pressure Received 1 dose of oxycodone since admission and will be avoided anymore from now Received Toradol intravenously and the headache seems to be controlled No more headache History of alcoholism Does not have any overt drinking and/or binge No signs of withdrawal DVT prophylaxis SCDs CODE STATUS Full Will be discharged home this afternoon Admission and Anticipated Discharge Date Admission Date: January 13, 2021 Subjective 01/14/2021 The patient was seen and examined in telemetry unit She was admitted with severe anxiety, high blood pressure and headache She has been feeling much better as of this morning and complaint of headache She was given Toradol and the headache resolved 01/15/2021 The patient was seen and examined in telemetry unit She has been feeling a lot better and denies any anxiety symptoms and/or headache Her blood pressure seems to be controlled and she wants to leave Review of Systems Review of Systems: All systems reviewed and are unremarkable except as noted below Physical Exam Physical Exam: Lying in bed comfortably Constitutional: well developed, + well hydrated and + obese; not ill appearing Eyes: PERRL, conjunctivae normal, anicteric sclerae ENMT: external ear and nose normal, oropharynx normal Neck: trachea midline, no thyromegaly Respiratory: no respiratory distress Auscultation: lungs clear to auscultation bilaterally Cardiovascular: Rate/Rhythm: regular rate and regular rhythm Heart Sounds: no murmur Extremities: no edema Gastrointestinal (Abdomen): Inspection/Auscultation: normal bowel sounds; abdomen not distended Percussion/Palpation: abdomen soft; abdomen nontender Musculoskeletal: No acute arthritis in any joint Neurologic: Alert, awake and oriented x3. No focal sensory and motor deficit appreciated Results & Data Results & Data ([facility]) Vital Signs (Past 12 Hours) Vital Signs Temp Pulse Pulse Resp BP BP Pulse Ox 01/15/21 12:14 36.9 C 84 18 131/85 96 01/15/21 12:00 85 18 01/15/21 08:00 75 01/15/21 07:54 36.5 C 117 H 18 161/96 H 96 01/15/21 03:38 36.4 C L 73 18 146/111 H 96 Laboratory Results BMP 01/14/21 19:51 Potassium 3.9 D Medications Administered Current Inpatient Medications Acetaminophen (Acetaminophen 325 Mg Tab) 650 mg PO Q4H PRN PRN Reason: Pain or Fever Stop: 02/13/21 00:24 Last Admin: 01/14/21 05:54 Dose: 650 mg Documented by: Amlodipine Besylate (Amlodipine Besylate 5 Mg Tab) 10 mg PO QAM [facility] Stop: 02/13/21 08:59 Last Admin: 01/15/21 08:16 Dose: 10 mg Documented by: Clonazepam (Clonazepam 1 Mg Tab) 1 mg PO BID PRN PRN Reason: Anxiety Stop: 02/13/21 00:24 Last Admin: 01/15/21 11:54 Dose: 1 mg Documented by: Epinephrine HCl (Epinephrine Adult Auto-Inject 0.3 Mg Syr) 0.3 mg IM UD PRN PRN Reason: Allergic Reaction Stop: 02/13/21 00:24 Folic Acid (Folic Acid 1 Mg Tab) 1 mg PO QAM [facility] Stop: 02/13/21 08:59 Last Admin: 01/15/21 08:16 Dose: 1 mg Documented by: Lorazepam (Ativan) 0.5 mg in 1 mls @ 1 mls/min IV Q4H PRN PRN Reason: Anxiety/Agitation Stop: 02/13/21 00:24 Ketorolac Tromethamine (Ketorolac 30 Mg/Ml Vial) 30 mg IV Q6H PRN PRN Reason: Pain Stop: 01/19/21 08:18 Last Admin: 01/14/21 11:06 Dose: 30 mg Documented by: Labetalol HCl (Labetalol Hcl 200 Mg Tab) 200 mg PO QID [facility] Stop: 02/13/21 08:59 Last Admin: 01/15/21 08:16 Dose: 200 mg Documented by: Labetalol HCl (Labetalol Hcl Iv 5 Mg/Ml 20ml) 10 mg IV Q4H PRN PRN Reason: Hypertension Stop: 02/13/21 00:24 Miscellaneous (Remove Nicoderm Patch) 1 ea N/A DAILY@0859 [facility] Stop: 02/13/21 08:58 Last Admin: 01/15/21 08:15 Dose: 1 ea Documented by: Multivitamins/Minerals (Cerovite Adv Formula Tab) 1 tab PO QAM [facility] Stop: 02/13/21 08:59 Last Admin: 01/15/21 08:16 Dose: 1 tab Documented by: Nicotine (Nicotine 21 Mg/24 Hr Tdsy) 21 mg TD DAILY [facility] Stop: 02/13/21 00:34 Last Admin: 01/15/21 08:15 Dose: 21 mg Documented by: Nitroglycerin (Nitroglycerin Sl 0.4 Mg/Tab Tab) 0.4 mg SL UD PRN PRN Reason: Chest Pain Stop: 02/13/21 00:24 Ondansetron HCl (Ondansetron Inj 2 Mg/Ml 2 Ml Vial) 4 mg IV Q6H PRN PRN Reason: Nausea Stop: 02/13/21 00:24 Last Admin: 01/14/21 08:01 Dose: 4 mg Documented by: Spironolactone (Spironolactone 25 Mg Tab) 25 mg PO BID [facility] Stop: 02/13/21 08:59 Last Admin: 01/15/21 08:16 Dose: 25 mg Documented by: Thiamine HCl (Thiamine Hcl 50 Mg Tablet) 50 mg PO QAM [facility] Stop: 02/13/21 08:59 Last Admin: 01/15/21 08:16 Dose: 50 mg Documented by: (1) Hypertension Hypertension type: unspecified Qualified Code(s): I10 - Essential (primary) hypertension (2) Headache Headache chronicity pattern: acute headache Headache type: unspecified Intractability: intractable Qualified Code(s): R51.9 - Headache, unspecified
--- NOTE | 2021-01-22 12:59 | Discharge Summary ---
Date of Service January 22, 2021 Admission HPI Per Admitting Provider DICTATED BY: Gilberto Villalobos MD DATE OF ADMISSION: 01/13/2021 CHIEF COMPLAINT: Severe headache and elevated blood pressure. HISTORY OF PRESENT ILLNESS: This 35-year-old female with past medical history significant for hypertension, morbid obesity, posttraumatic stress disorder, opioid dependence in remission, bipolar disorder, tobacco use, generalized anxiety disorder, says that she drinks about 3-4 beers 4 times a week and she does not get withdrawal symptoms, presents with severe headache. The patient has a similar presentation in the past, headaches and with elevated blood pressure. Previously as per the Epic she was supposed to be on spironolactone, amlodipine, Coreg, hydrochlorothiazide, and lisinopril. But the patient states she is taking only amlodipine, spironolactone and labetalol. She states today she was very anxious. Generally the blood pressure is running okay with the medication, but today she was very anxious. One of her neighbors is a drug peddler and as per patient cement handler were asking her to testify and she is feeling very anxious causing her blood pressure go high and she was getting severe headaches, that is why she came to the hospital. Her systolic blood pressure was in like 190s and 180s and diastolic in 100s to 120s in the ER, she received hydralazine and labetalol. It is still running high, so we are called for admission. The patient denies any other complaints. No blurred vision, no double vision, no earache, no runny nose, no sore throat, no cough, no fever, no chest pain or shortness of breath. No nausea, no abdominal pain. Normal bowel and bladder movements. Currently, resting comfortably and hemodynamically stable. Admission Exam Per Admitting Provider GENERAL: The patient is morbidly obese, not in acute distress. VITAL SIGNS: Temperature 36.3, pulse 91, respiratory rate 17, blood pressure of 182/103, oxygen 97% on room air. HEENT: Pupils equal, round, reactive to light. Oral mucosa moist. NECK: No JVD. No neck masses. CARDIOVASCULAR: S1, S2 heard, regular rate and rhythm. No murmur, no gallop. RESPIRATORY SYSTEM: Normal AP diameter. No accessory muscle use. No wheezing, no crackles. ABDOMEN: Soft, bowel sounds present, nontender. No distention. CENTRAL NERVOUS SYSTEM: Cranial nerves II-XII grossly intact. Nonfocal. EXTREMITIES: No edema, no erythema. Principal Diagnosis Hypertensive urgency, headache, JEAN Discharge Exam Constitutional well developed, + well hydrated and + obese; not ill appearing Eyes PERRL, conjunctivae normal, anicteric sclerae ENMT external ear and nose normal, oropharynx normal Neck trachea midline, no thyromegaly Respiratory no respiratory distress Auscultation: lungs clear to auscultation bilaterally Cardiovascular Rate/Rhythm: regular rate and regular rhythm Heart Sounds: no murmur Extremities: no edema Gastrointestinal (Abdomen) Inspection/Auscultation: normal bowel sounds; abdomen not distended Percussion/Palpation: abdomen soft; abdomen nontender Discharge Data Allergies Allergy/AdvReac Type Severity Reaction Status Date / Time nut - unspecified Allergy Severe Anaphylaxis Verified 01/13/21 19:53 Penicillins Allergy Severe Difficulty Verified 01/13/21 19:53 Breathing tree nut Allergy Severe Anaphylaxis Verified 01/13/21 19:53 morphine Allergy Intermediate Hives Verified 01/13/21 19:53 mushroom Allergy Intermediate Hives Verified 01/13/21 19:53 Consultations 01/13/21 21:24 ED Decision to Admit Stat Hospital Course (1) Hypertension: Admitted with hypertensive urgency associated with headache Has been put back on her usual medications for blood pressure Blood pressure is well controlled (2) JEAN (generalized anxiety disorder): Has had history of anxiety With recent suffering of severe anxiety Likely the cause for the blood pressure to go too high Anxiety seems to be controlled now (3) Headache: Severe headache associated with high blood pressure Received 1 dose of oxycodone since admission and will be avoided anymore from now Received Toradol intravenously and the headache seems to be controlled No more headache History of alcoholism Does not have any overt drinking and/or binge No signs of withdrawal DVT prophylaxis SCDs CODE STATUS Full Will be discharged home this afternoon Total Time Total Time Spent Total Time Spent (In Minutes): 35 minutes Total Time Includes: Examination of the Patient, Discharge Planning, Medication Reconciliation and Communication With Other Providers Discharge Plan Discharge Items Patient Disposition: Home - Self-Care Reason For Visit: HEADACHE Discharge Diagnosis: Hypertensive urgency, headache, JEAN Condition on Discharge: Good Activity: Resume your previous activity Non-emergency contact: Primary Care Provider Call non-emergency contact if: you have any medication questions and your symptoms worsen Follow-up/Referrals: Angelic Pereira DO [Primary Care Provider] - (Date & Time 01/21/2021 11:10 AM Provider Angelic Pereira DO [facility] ) Diet: Regular and Low Sodium (2gm) Addtl Attending Provider Instructions: Please take your medications as advised Try to take rest and keep calm when the blood pressure is very high as advised Pending Studies at Discharge: No Stand-Alone Forms: My [facility], Smoking Cessation Medications and DC Order Prescriptions: New amlodipine [Norvasc] 5 mg Tablet 10 mg PO QAM 30 Days Qty: 60 RF: 0 spironolactone 25 mg Tablet 25 mg PO BID 30 Days Qty: 60 RF: 0 nicotine [Nicoderm CQ] 21 mg/24 hr Patch 24 Hour 21 mg transdermal DAILY 30 Days Qty: 30 RF: 0 folic acid 1 mg Tablet 1 mg PO QAM 30 Days Qty: 30 RF: 0 thiamine HCl (vitamin B1) [Vitamin B-1] 50 mg Tablet 50 mg PO QAM 30 Days Qty: 30 RF: 0 Continued epinephrine [EpiPen] 0.3 mg/0.3 mL Auto-Injector 0.3 mg IM DIRECTED PRN (Reason: Allergic Reaction) RF: 0 labetalol 200 mg tablet 200 mg PO QID RF: 0 clonazepam 1 mg tablet 1 mg PO BID PRN (Reason: Anxiety) RF: 0 lorazepam [Ativan] 0.5 mg tablet 0.5 - 1 mg PO Q4H PRN (Reason: anxiety) Qty: 12 RF: 0 clindamycin HCl 300 mg Capsule 0 mg PO QID RF: 0 Discharge Orders: Discharge Order (Routine); Ordered 01/15/21 Ordered By: Kathy Murrell Admission Data Admit Date/Time: 01/13/21 22:48 Attending Provider: Kathy Murrell Admit Provider: Gilberto Villalobos Primary Care Provider: Angelic Pereira Other Providers: Gilberto Villalobos Other Interventions: Discharge Summary Assessment (RN) Last Done: 01/15/21 13:34
== END 2021-01-15 13:50 | disposition home or self-care (01) | DRG 305 ==
LOC: ED 18:18 → 2S 22:48

== ENCOUNTER 2022-04-03 20:38 | Inpatient (IN) ==
[2022-04-03] MEDS ORDERED: OPTIRAY 300 500mL IV ONE (20:51)
[2022-04-03] MEDS ORDERED: KETOROLAC TROMETHAMINE 15 MG/ML VIAL IV ONE (21:02)
[2022-04-03] MEDS ORDERED: SODIUM CHLORIDE 0.9% 1000ML 1,000 ML IV STA (21:02)
[2022-04-03] MEDS ORDERED: PROCHLORPERAZINE 2 ML IV ONE (21:02)
--- NOTE | 2022-04-03 21:03 | CT Scan Report ---
UNENHANCED CT OF THE BRAIN; CT ANGIOGRAM OF THE BRAIN; CT ANGIOGRAM OF THE NECK CLINICAL HISTORY: Headache. COMPARISON STUDY: CT scan of the brain dated 01/26/2021. CT angiogram of the head and neck dated 09/12. TECHNIQUE: Unenhanced axial CT of the brain was performed. Subsequent, following the IV administratio n of 120 of Optiray 300, CT angiogram of the head and neck was performed from the aortic arch to the vertex. Images are reviewed in the axial, sagittal, and coronal planes. 3-D MIPS images are created a nd assessed. IV contrast was administered without complication. All measurements were calculated base d on NASCET criteria. A dose lowering technique was utilized adhering to the principles of ALARA. CT DOSE: 1621.39 mGy.cm FINDINGS: Brain parenchyma: The brain parenchyma is normal in appearance. There is no hemorrhage, mass effect, or evidence of acute territorial ischemia by CT criteria. There is no evidence of enhancing mass lesi on on the angiogram phase images. The ventricles, sulci, and cisterns are normal in configuration. Gr ay-white matter differentiation is preserved. No extra-axial fluid collection is seen. Thoracic aorta: Visualized portions of the thoracic aorta are normal in caliber. The aortic arch demo nstrates 4-vessel variant anatomy. The left vertebral artery arises distracted from the arch. Right carotid arterial system: The right common carotid artery is widely patent, as are the right int ernal and external carotid arteries. There is tortuosity of the distal internal carotid artery. Left carotid arterial system: The left common carotid artery is widely patent, as are the left employee communications intern al and external carotid arteries. There is tortuosity of the distal internal carotid artery. Vertebral arteries: The vertebral arteries are widely patent bilaterally and codominant in the neck. Subclavian arteries: Widely patent bilaterally. Intracranial vasculature: There is origin of the left posterior cerebral artery. A large backup administrative coordinator ior communicating artery seen on the right. The internal carotid arteries are patent at the skull bas e, as are the anterior and middle cerebral arteries bilaterally. The vertebrobasilar system and poste rior cerebral arteries are diminutive but patent. The right vertebral artery is dominant. The right P 1 segment is diminutive. There is no aneurysm, high-grade stenosis, or focal vessel cut off seen thro ughout the intracranial circulation. Jugular veins: Patent bilaterally. Dural sinuses: Patent. Lung apices: Partially visualized upper lobe lung parenchyma appears clear. Soft tissues: The visualized pharyngeal soft tissues are normal in appearance noting angiographic pha se technique. The oropharyngeal airway appears widely patent. The salivary and thyroid glands are nor mal in appearance. No cervical lymphadenopathy is seen. Skeletal structures: The calvarium appears intact. The cervical spine is within normal limits. No lyt ic or blastic lesion is seen. Sinuses and mastoids: There is trace mucosal thickening in the right maxillary antrum. The remaining paranasal sinuses are clear. The mastoid air cells are well pneumatized. IMPRESSION: 1. There is no hemorrhage, mass effect, or evidence of acute territorial ischemia by CT criteria. 2. Unremarkable CT angiogram of the brain. 3. Unremarkable CT angiogram of the neck. ACT 112: Negative or not required by law. Electronically signed by: Rakesh Sarabia M.D. 04/03/2022 9:01 PM
[2022-04-03] MEDS ORDERED: METOCLOPRAMIDE HCL INJ 5 MG/ML 2 ML VIAL IV STA (21:04)
[2022-04-03] MEDS ORDERED: LABETALOL HCL IV 5 MG/ML 20ML IV STA (21:04)
[2022-04-03] MEDS ORDERED: diphenhydrAMINE 50 MG/ML VIAL IV STA (21:21)
[2022-04-03 21:42] LABS: Partial Thromboplastin Ratio 0.9; Partial Thromboplastin Time 23.5 Seconds (21.0-31.0); Prothrombin Time 10.7 Seconds (9.0-12.0)
[2022-04-03 21:43] LABS: Albumin Globulin Ratio 1.4 (0.9-2); Albumin Level 4.4 gm/dl (3.4-5.0); BUN Creatinine Ratio 3.8 (10-20); Bilirubin,Total 0.5 mg/dl (0.2-1.0); Creatinine Clr Calc Pharmacy 203.1 ml/min; Est GFR (African American) 144.5 ml/min; Est GFR (Non-African American) 124.7 ml/min; Globulin 3.2 gm/dl (2.5-4.0); Potassium 3.2 mmol/L (3.5-5.1); Total Protein 7.6 gm/dl (6.0-8.3)
[2022-04-03 21:44] LABS: iSTAT Blood Urea Nitrogen < 3 mg/dl (7-18); iSTAT Carbon Dioxide 21 mmol/L (24-31); iSTAT Chloride 105 mmol/L (101-112); iSTAT Creatinine 0.7 mg/dl (0.6-1.3); iSTAT Glucose 168 mg/dl (70-99); iSTAT Hematocrit 48 % (37-47); iSTAT Hemoglobin 16.3 g/dl (12.0-16.0); iSTAT Ionized Calcium 1.13 mmol/l (1.12-1.32); iSTAT Potassium 3.4 mmol/L (3.3-5.0); iSTAT Sodium 141 mmol/L (135-144)
[2022-04-03 21:45] LABS: Troponin I High Sensitivity 8.7 pg/ml (0-14)
--- NOTE | 2022-04-03 21:45 | XRay Report ---
SINGLE VIEW CHEST CLINICAL HISTORY: Strokelike symptoms. FINDINGS: An AP, portable, upright chest radiograph is compared to study dated 06/25/2021. The examina tion is degraded by portable technique and patient rotation. The cardiomediastinal silhouette is unr emarkable. There is elevation of the right hemidiaphragm with mild atelectasis. The lungs and pleural spaces are otherwise clear. No pneumothorax is seen. The bony thorax is grossly intact. IMPRESSION: No active disease in the chest. ACT 112: Negative or not required by law. Electronically signed by: Rakesh Sarabia M.D. 04/03/2022 9:44 PM
[2022-04-03 21:46] LABS: Basophils # (auto) 0.13 K/uL (0-0.2); Basophils % (auto) 1.4 %; Eosinophils # (auto) 0.51 K/uL (0-0.50); Eosinophils % (auto) 5.5 %; Hematocrit (blood only) 46.1 % (34.1-44.9); Hemoglobin 15.6 g/dl (12.0-16.0); Immature Granulocytes % (auto) 2.2 %; Lymphocytes # (auto) 4.05 K/uL (1.2-3.4); Lymphocytes % (auto) 43.9 %; Mean Corpuscular Hemoglobin 32.5 pg (25.0-34.0); Mean Corpuscular Hgb Conc 33.8 g/dL (32.0-36.0); Mean Platelet Volume 9.6 fL (9.4-12.3); Monocytes # (auto) 0.92 K/uL (0.24-0.82); Neutrophils # (auto) 3.42 K/uL (1.4-6.5); Platelet Count 314 K/uL (130-400); RDW Coefficient of Variation 14.6 % (11.5-14.5); RDW Standard Deviation 51.7 fL (36.4-46.3); White Blood Count 9.23 K/ul (4.8-10.8)
[2022-04-03 21:52] LABS: Pregnancy Test, Serum Negative (Negative)
[2022-04-03] MEDS ORDERED: HYDROmorphone INJ 0.5 MG/0.5 ML SYR IV STA ×2 (22:12→23:04)
[2022-04-03] MEDS ORDERED: ONDANSETRON INJ 2 MG/ML 2 ML VIAL IV STA (22:57)
[2022-04-03] MEDS ORDERED: ASPIRIN 81 MG CHEW PO STA (23:39)
[2022-04-04] MEDS ORDERED: HYDROmorphone INJ 0.5 MG/0.5 ML SYR IV STA ×2 (00:48→02:43)
--- NOTE | 2022-04-04 00:48 | Emergency Department Note ---
Impression & Plan Acute headache, Hypertensive emergency, Stroke-like symptoms ED Provider Note INFORMANT: Patient and EMS. Significant other as well. ED PROVIDER(S): Manjit Shah MD CHIEF COMPLAINT: Headache, stroke alert PLAN: Disposition: Admitted Condition: Good Outpatient prescription management: none Referral: None MEDICAL DECISION MAKING: Patient presented to the emergency department and was made a stroke alert prehospital. She went directly to CT imaging. She was evaluated when she got back to the emergency department. She was uncomfortable. There was concerns about ICH as well as hypertensive emergency. She had a history of the numbness. Seem to be less consistent with a clot and TN K type of case. I did consult probably with [facility]. CT imaging including angiography was negative. Patient was treated with fluids, Reglan, Benadryl, and Toradol. This helped with the nausea but she still had the headache. The significant other noted that she was treated in the past and did very well with Dilaudid. She is allergic to morphine. Patient was given a dose of IV labetalol for her severe hypertension. The patient was evaluated by [facility] of [facility] after we discussed the history and presentation. Thrombolytics were not recommended. She recommended admission and management of blood pressure. A baby aspirin. MRI and neurology consultation. Patient did require an additional dose of Dilaudid and was given Zofran. She was actually given a third dose. Consultation was made with the [facility] Hospitalist service, Dr. Villalobos. Patient was evaluated in the ER and admitted for further management. Triage Nursing notes reviewed and agree them. Vital Signs: reviewed and remarkable for severe hypertension Differential diagnosis: Migraine headache, CVA, TIA, hypertensive emergency, intracranial hemorrhage, meningitis, sinusitis, CO exposure, , SAH, infection, tumor, headache, sinus thrombosis, arterial dissection, as well as other pathologies. Diagnostics interpreted by me: ECG: Twelve-lead ECG reveals a sinus tachycardia 107 bpm. Left atrial enlargement. Incomplete right bundle branch block. No ST elevation or depression. No PVCs. Cardiac Monitoring: Cardiac monitoring ordered by me: The patient was placed on continuous cardiac monitoring and observed. It revealed a normal sinus rhythm at 105 beats per minute without ectopy or evidence of dysrhythmia. Imaging studies: CT angiography as noted above. Chest x-ray. Findings: A chest x-ray was performed and revealed no pneumothorax, effusion, infiltrate, pulmonary edema, free air under the diaphragm, or wide mediastinum. Impression: No acute disease. HPI: The patient is a 36year old female who presents to the Emergency Room with complaints of headache and numbness. This started earlier today around 1 PM but then worsened at 7 PM and is described as severe.. The patient also notes the following associated symptoms, right face, arm and leg numbness. Patient also had nausea and vomiting. Patient states she has a history of headache, hypertension, and does get numbness on the right side. She has not had headaches this severe before. No trauma reported.. The patient has tried Compazine for relieving factors. Current pain is rated as 10/10. Patient was reportedly very hypertensive for EMS with a systolic blood pressure over 220. Pt denies LOC, fevers, chills, diaphoresis, visual changes, neck pain, chest pain, breathing difficulties, abdominal pain, back pain, melena, hematochezia, urinary symptoms, weakness, lymphadenopathy, rash, or other complaints. ROS: See above HPI for pertinent positives & negatives. A total of 10 systems reviewed and were otherwise negative. PAST MEDICAL HISTORY:See Below , hypertension, migraine PAST SURGICAL HISTORY:See Below, FAMILY HISTORY:See Below SOCIAL HISTORY:See Below, smoker HOME MEDICATIONS:See Below ALLERGIES:See Below VITALS:See Below PHYSICAL EXAMINATION: GENERAL: Awake, alert, uncomfortable-appearing, in no distress HENT: Normocephalic, atraumatic. Oropharynx unremarkable. EYES: Normal conjunctiva. Sclera non-icteric. PERRLA. EOMI. NECK: Inspection normal. Non-tender. Supple. No nuchal rigidity. FROM. No masses. RESPIRATORY: Clear to auscultation. No wheezes. No rales. Normal respiratory effort. CARDIAC: Tachycardic rate. Normal rhythm. No murmurs. No rubs. Extremities warm and well perfused. Pulses equal. No JVD. GI: Soft, non-distended. No tenderness to palpation. No rebound or guarding. No masses. RECTAL: Deferred. MUSCULOSKELETAL: Atraumatic. Chest examination reveals no tenderness. The back is symmetrical on inspection without obvious abnormality. There is no CVA tenderness to palpation. No joint edema. LOWER EXTREMITIES: Calves are equal size bilaterally and non-tender. No edema. No discoloration. NEURO: Normal sensorium. Subjective right facial and arm numbness. No other sensory or motor deficits noted. No drift. Cranial nerves II through XII intact otherwise. Speech normal SKIN: No rash or jaundice noted. CRITICAL CARE: I have personally spent greater than 45 minutes of critical care time in the direct management of this patient. This includes bedside care, interpretation of diagnostic studies, and testing, discussion with consultants, patient, and family members, and other required patient management activities. These minutes are in excess of all separately billable procedures. Manjit Shah MD Past Med/Surg History Medical History Alcohol abuse, unspecified (07/15/12) Anxiety state, unspecified (06/16/11) Bipolar disorder Headache Hypertension (07/15/12) Overdose of antipsychotic Surgical History Cholecystostomy care History of appendectomy (12/25/12) History of dental surgery Tubal ligation status Family History Other No pertinent family history Social History Smoking Status: Current every day smoker Tobacco Type: Cigarettes Cigarettes Per Day: 20; Second Hand Exposure: No; Hx Alcohol Use: Yes Alcohol type: beer Hx Substance Use: Yes Last Used Substance: Days (ago) Last Used Substance Other:: Medical Marijuana yesterday. Hallucinogens 10 years ago Substance Use Type Other:: medical marijuana Preferred Language: Mohawk Communication Ability: Effective Radiology Technologist Required: No Beliefs That Will Affect Care: None marital status: Current Living Situation: Spouse current occupational status: unemployed current occupation: Prior employment at [employer] How many Children do You have: 4 Feels Safe at Home: Yes Assistive Devices: None Allergies Allergies Allergy/AdvReac Type Severity Reaction Status Date / Time nut - unspecified Allergy Severe Anaphylaxis Verified 04/03/22 23:17 Penicillins Allergy Severe Difficulty Verified 04/03/22 23:17 Breathing tree nut Allergy Severe Anaphylaxis Verified 04/03/22 23:17 morphine Allergy Intermediate Hives Verified 04/03/22 23:17 mushroom Allergy Intermediate Hives Verified 04/03/22 23:17 Home Meds Home Medications Medication Instructions Recorded Confirmed epinephrine 0.3 mg/0.3 mL 0.3 mg IM DIRECTED PRN Allergic 05/13/18 04/03/22 injection, auto-injector (EpiPen) Reaction clonazepam 1 mg tablet 1 mg PO TID PRN Anxiety 11/05/20 04/03/22 amlodipine 10 mg tablet 10 mg PO DAILY 06/02/21 04/03/22 ondansetron HCl 4 mg tablet 4 mg PO Q8 PRN Nausea 04/03/22 04/03/22 Previous Rx's Medication Instructions Recorded omeprazole 40 mg capsule,delayed 40 mg PO DAILY 14 days #14 caps 03/31/22 release Results & Data (ED) Vital Signs Vital Signs - 24 hr 04/03/22 20:55 04/03/22 21:38 04/03/22 22:13 Temperature 37.1 C 37.1 C Temperature Source Axillary Axillary Pulse Rate 126 H Pulse Rate [Apical] 96 H Pulse Rate from SpO2 Sensor Pulse Rhythm Regular Pulse Rhythm [Apical] Regular Pulse Strength Normal Pulse Strength [Apical] Normal Respiratory Rate 20 17 Respiratory Effort / Characteristics Non-Labored Spontaneous Non-Labored Spontaneous Respiratory Depth Normal Normal Respiratory Pattern Regular Regular Blood Pressure 191/146 H Blood Pressure [Right Arm] 156/111 H Blood Pressure Mean 161 Blood Pressure Mean [Right Arm] 126 Blood Pressure Position Semi-fowlers Blood Pressure Position [Right Arm] Semi-fowlers Pulse Oximetry 97 96 96 Oxygen Delivery Method Room Air Room Air Room Air Oxygen Flow Rate 0 Sepsis Recent Fever Within 48 Hours No Sepsis New/Unexplained Change in Mental Status No Sepsis Action Taken by Nursing No Action Required 04/03/22 20:59 04/03/22 21:00 04/03/22 21:00 Temperature Temperature Source Pulse Rate 123 H 122 H Pulse Rate [Apical] Pulse Rate from SpO2 Sensor 125 H 121 H Pulse Rhythm Pulse Rhythm [Apical] Pulse Strength Pulse Strength [Apical] Respiratory Rate 21 24 Respiratory Effort / Characteristics Respiratory Depth Respiratory Pattern Blood Pressure 191/146 H Blood Pressure [Right Arm] Blood Pressure Mean 161 Blood Pressure Mean [Right Arm] Blood Pressure Position Blood Pressure Position [Right Arm] Pulse Oximetry 95 96 Oxygen Delivery Method Oxygen Flow Rate Sepsis Recent Fever Within 48 Hours Sepsis New/Unexplained Change in Mental Status Sepsis Action Taken by Nursing 04/03/22 21:10 04/03/22 21:15 04/03/22 21:15 Temperature Temperature Source Pulse Rate 116 H 106 H Pulse Rate [Apical] Pulse Rate from SpO2 Sensor Pulse Rhythm Pulse Rhythm [Apical] Pulse Strength Pulse Strength [Apical] Respiratory Rate 23 16 Respiratory Effort / Characteristics Respiratory Depth Respiratory Pattern Blood Pressure 145/98 H Blood Pressure [Right Arm] Blood Pressure Mean 113 Blood Pressure Mean [Right Arm] Blood Pressure Position Blood Pressure Position [Right Arm] Pulse Oximetry Oxygen Delivery Method Oxygen Flow Rate Sepsis Recent Fever Within 48 Hours Sepsis New/Unexplained Change in Mental Status Sepsis Action Taken by Nursing 04/03/22 21:20 04/03/22 21:28 04/03/22 21:28 Temperature Temperature Source Pulse Rate 107 H 98 H Pulse Rate [Apical] Pulse Rate from SpO2 Sensor Pulse Rhythm Pulse Rhythm [Apical] Pulse Strength Pulse Strength [Apical] Respiratory Rate 21 19 Respiratory Effort / Characteristics Respiratory Depth Respiratory Pattern Blood Pressure 149/101 H Blood Pressure [Right Arm] Blood Pressure Mean 117 Blood Pressure Mean [Right Arm] Blood Pressure Position Blood Pressure Position [Right Arm] Pulse Oximetry Oxygen Delivery Method Oxygen Flow Rate Sepsis Recent Fever Within 48 Hours Sepsis New/Unexplained Change in Mental Status Sepsis Action Taken by Nursing 04/03/22 21:30 04/03/22 21:30 04/03/22 21:40 Temperature Temperature Source Pulse Rate 94 H 95 H Pulse Rate [Apical] Pulse Rate from SpO2 Sensor Pulse Rhythm Pulse Rhythm [Apical] Pulse Strength Pulse Strength [Apical] Respiratory Rate 20 19 Respiratory Effort / Characteristics Respiratory Depth Respiratory Pattern Blood Pressure 156/111 H Blood Pressure [Right Arm] Blood Pressure Mean 126 Blood Pressure Mean [Right Arm] Blood Pressure Position Blood Pressure Position [Right Arm] Pulse Oximetry Oxygen Delivery Method Oxygen Flow Rate Sepsis Recent Fever Within 48 Hours Sepsis New/Unexplained Change in Mental Status Sepsis Action Taken by Nursing 04/03/22 21:42 04/03/22 21:42 04/03/22 21:45 Temperature Temperature Source Pulse Rate 93 H Pulse Rate [Apical] Pulse Rate from SpO2 Sensor Pulse Rhythm Pulse Rhythm [Apical] Pulse Strength Pulse Strength [Apical] Respiratory Rate 19 Respiratory Effort / Characteristics Respiratory Depth Respiratory Pattern Blood Pressure 144/97 H 150/94 H Blood Pressure [Right Arm] Blood Pressure Mean 112 112 Blood Pressure Mean [Right Arm] Blood Pressure Position Blood Pressure Position [Right Arm] Pulse Oximetry Oxygen Delivery Method Oxygen Flow Rate Sepsis Recent Fever Within 48 Hours Sepsis New/Unexplained Change in Mental Status Sepsis Action Taken by Nursing 04/03/22 21:45 04/03/22 21:50 04/03/22 22:10 Temperature Temperature Source Pulse Rate 94 H 101 H 93 H Pulse Rate [Apical] Pulse Rate from SpO2 Sensor Pulse Rhythm Pulse Rhythm [Apical] Pulse Strength Pulse Strength [Apical] Respiratory Rate 19 24 18 Respiratory Effort / Characteristics Respiratory Depth Respiratory Pattern Blood Pressure Blood Pressure [Right Arm] Blood Pressure Mean Blood Pressure Mean [Right Arm] Blood Pressure Position Blood Pressure Position [Right Arm] Pulse Oximetry Oxygen Delivery Method Oxygen Flow Rate Sepsis Recent Fever Within 48 Hours Sepsis New/Unexplained Change in Mental Status Sepsis Action Taken by Nursing 04/03/22 22:15 04/03/22 22:15 04/03/22 22:20 Temperature Temperature Source Pulse Rate 91 H 96 H Pulse Rate [Apical] Pulse Rate from SpO2 Sensor 90 95 H Pulse Rhythm Pulse Rhythm [Apical] Pulse Strength Pulse Strength [Apical] Respiratory Rate 15 22 Respiratory Effort / Characteristics Respiratory Depth Respiratory Pattern Blood Pressure 127/87 Blood Pressure [Right Arm] Blood Pressure Mean 100 Blood Pressure Mean [Right Arm] Blood Pressure Position Blood Pressure Position [Right Arm] Pulse Oximetry 94 94 Oxygen Delivery Method Oxygen Flow Rate Sepsis Recent Fever Within 48 Hours Sepsis New/Unexplained Change in Mental Status Sepsis Action Taken by Nursing 04/03/22 22:30 04/03/22 22:30 04/03/22 22:42 Temperature Temperature Source Pulse Rate 95 H 98 H Pulse Rate [Apical] Pulse Rate from SpO2 Sensor 96 H 98 H Pulse Rhythm Pulse Rhythm [Apical] Pulse Strength Pulse Strength [Apical] Respiratory Rate 19 18 Respiratory Effort / Characteristics Respiratory Depth Respiratory Pattern Blood Pressure 142/95 H Blood Pressure [Right Arm] Blood Pressure Mean 110 Blood Pressure Mean [Right Arm] Blood Pressure Position Blood Pressure Position [Right Arm] Pulse Oximetry 94 96 Oxygen Delivery Method Oxygen Flow Rate Sepsis Recent Fever Within 48 Hours Sepsis New/Unexplained Change in Mental Status Sepsis Action Taken by Nursing 04/03/22 22:45 04/03/22 22:45 04/03/22 22:50 Temperature Temperature Source Pulse Rate 95 H 96 H Pulse Rate [Apical] Pulse Rate from SpO2 Sensor 94 H 97 H Pulse Rhythm Pulse Rhythm [Apical] Pulse Strength Pulse Strength [Apical] Respiratory Rate 22 23 Respiratory Effort / Characteristics Respiratory Depth Respiratory Pattern Blood Pressure 166/109 H Blood Pressure [Right Arm] Blood Pressure Mean 128 Blood Pressure Mean [Right Arm] Blood Pressure Position Blood Pressure Position [Right Arm] Pulse Oximetry 93 95 Oxygen Delivery Method Oxygen Flow Rate Sepsis Recent Fever Within 48 Hours Sepsis New/Unexplained Change in Mental Status Sepsis Action Taken by Nursing 04/03/22 23:00 04/03/22 23:00 04/03/22 23:10 Temperature Temperature Source Pulse Rate 95 H 98 H Pulse Rate [Apical] Pulse Rate from SpO2 Sensor 100 H 97 H Pulse Rhythm Pulse Rhythm [Apical] Pulse Strength Pulse Strength [Apical] Respiratory Rate 24 19 Respiratory Effort / Characteristics Respiratory Depth Respiratory Pattern Blood Pressure 164/98 H Blood Pressure [Right Arm] Blood Pressure Mean 120 Blood Pressure Mean [Right Arm] Blood Pressure Position Blood Pressure Position [Right Arm] Pulse Oximetry 95 94 Oxygen Delivery Method Oxygen Flow Rate Sepsis Recent Fever Within 48 Hours Sepsis New/Unexplained Change in Mental Status Sepsis Action Taken by Nursing 04/03/22 23:25 04/03/22 23:30 04/03/22 23:40 Temperature Temperature Source Pulse Rate 101 H 95 H 102 H Pulse Rate [Apical] Pulse Rate from SpO2 Sensor 101 H 95 H 103 H Pulse Rhythm Pulse Rhythm [Apical] Pulse Strength Pulse Strength [Apical] Respiratory Rate 25 H 18 21 Respiratory Effort / Characteristics Respiratory Depth Respiratory Pattern Blood Pressure Blood Pressure [Right Arm] Blood Pressure Mean Blood Pressure Mean [Right Arm] Blood Pressure Position Blood Pressure Position [Right Arm] Pulse Oximetry 95 91 95 Oxygen Delivery Method Oxygen Flow Rate Sepsis Recent Fever Within 48 Hours Sepsis New/Unexplained Change in Mental Status Sepsis Action Taken by Nursing 04/03/22 23:50 04/04/22 00:00 04/04/22 00:10 Temperature Temperature Source Pulse Rate 100 H 107 H 104 H Pulse Rate [Apical] Pulse Rate from SpO2 Sensor 96 H 110 H 104 H Pulse Rhythm Pulse Rhythm [Apical] Pulse Strength Pulse Strength [Apical] Respiratory Rate 19 23 21 Respiratory Effort / Characteristics Respiratory Depth Respiratory Pattern Blood Pressure Blood Pressure [Right Arm] Blood Pressure Mean Blood Pressure Mean [Right Arm] Blood Pressure Position Blood Pressure Position [Right Arm] Pulse Oximetry 95 94 95 Oxygen Delivery Method Oxygen Flow Rate Sepsis Recent Fever Within 48 Hours Sepsis New/Unexplained Change in Mental Status Sepsis Action Taken by Nursing 04/04/22 00:20 04/04/22 00:30 04/04/22 00:40 Temperature Temperature Source Pulse Rate 110 H 110 H 120 H Pulse Rate [Apical] Pulse Rate from SpO2 Sensor 108 H 109 H 115 H Pulse Rhythm Pulse Rhythm [Apical] Pulse Strength Pulse Strength [Apical] Respiratory Rate 19 17 18 Respiratory Effort / Characteristics Respiratory Depth Respiratory Pattern Blood Pressure Blood Pressure [Right Arm] Blood Pressure Mean Blood Pressure Mean [Right Arm] Blood Pressure Position Blood Pressure Position [Right Arm] Pulse Oximetry 94 94 94 Oxygen Delivery Method Oxygen Flow Rate Sepsis Recent Fever Within 48 Hours Sepsis New/Unexplained Change in Mental Status Sepsis Action Taken by Nursing Laboratory Data Result diagrams: 04/03/22 21:09 04/03/22 21:09 Lab Results 04/03/22 04/03/22 04/03/22 Range/Units 21:01 21:09 21:09 WBC 9.23 (4.8-10.8) K/ul RBC 4.80 (3.93-5.22) M/uL Hgb 15.6 (12.0-16.0) g/dl POC Hgb (12.0-16.0) g/dl Hct 46.1 H (34.1-44.9) % POC Hct (37-47) % MCV 96.0 (80.0-100.0) fL MCH 32.5 (25.0-34.0) pg MCHC 33.8 (32.0-36.0) g/dL RDW Std Deviation 51.7 H (36.4-46.3) fL RDW Coeff of Carmen 14.6 H (11.5-14.5) % Plt Count 314 (130-400) K/uL MPV 9.6 (9.4-12.3) fL Immature Gran % (Auto) 2.2 % Neut % (Auto) 37.0 % Lymph % (Auto) 43.9 % Chester % (Auto) 10.0 % Eos % (Auto) 5.5 % Baso % (Auto) 1.4 % Neut # (Auto) 3.42 (1.4-6.5) K/uL Lymph # (Auto) 4.05 H (1.2-3.4) K/uL Chester # (Auto) 0.92 H (0.24-0.82) K/uL Eos # (Auto) 0.51 H (0-0.50) K/uL Baso # (Auto) 0.13 (0-0.2) K/uL Immature Gran # (Auto) 0.20 H (0.00-0.02) K/uL PT (9.0-12.0) Seconds INR (0.9-1.1) APTT (21.0-31.0) Seconds PTT Ratio POC Sodium (135-144) mmol/L Sodium (136-145) mmol/L POC Potassium (3.3-5.0) mmol/L Potassium (3.5-5.1) mmol/L POC Chloride (101-112) mmol/L Chloride (98-107) mmol/L Carbon Dioxide (21-32) mmol/L POC Total CO2 (24-31) mmol/L Anion Gap (3-11) POC Anion Gap (16-25) mmol/L POC BUN (7-18) mg/dl BUN (6-23) mg/dl Creatinine (0.6-1.2) mg/dl POC Creatinine (0.6-1.3) mg/dl Est Cr Clr Drug Dosing ml/min Est GFR ( Amer) ml/min Est GFR (Non-Af Amer) ml/min BUN/Creatinine Ratio (10-20) Glucose (70-99(Fasting)) mg/dl POC Glucose 158 H (70-99) mg/dl POC Glucose (other) (70-99) mg/dl Calcium (8.5-10.1) mg/dl POC Ioniz Calcium Yany (1.12-1.32) mmol/l Magnesium (1.7-2.4) mg/dl Total Bilirubin (0.2-1.0) mg/dl AST (13-39) U/L ALT (7-52) U/L Alkaline Phosphatase (34-104) U/L Troponin I High Sens (0-14) pg/ml Total Protein (6.0-8.3) gm/dl Albumin (3.4-5.0) gm/dl Globulin (2.5-4.0) gm/dl Albumin/Globulin Ratio (0.9-2) HCG, Qual (Negative) SARS-CoV-2, RNA, NAAT (NEGATIVE) Blood Type A Negative Antibody Screen NEGATIVE 04/03/22 04/03/22 04/03/22 Range/Units 21:09 21:09 21:09 WBC (4.8-10.8) K/ul RBC (3.93-5.22) M/uL Hgb (12.0-16.0) g/dl POC Hgb (12.0-16.0) g/dl Hct (34.1-44.9) % POC Hct (37-47) % MCV (80.0-100.0) fL MCH (25.0-34.0) pg MCHC (32.0-36.0) g/dL RDW Std Deviation (36.4-46.3) fL RDW Coeff of Carmen (11.5-14.5) % Plt Count (130-400) K/uL MPV (9.4-12.3) fL Immature Gran % (Auto) % Neut % (Auto) % Lymph % (Auto) % Chester % (Auto) % Eos % (Auto) % Baso % (Auto) % Neut # (Auto) (1.4-6.5) K/uL Lymph # (Auto) (1.2-3.4) K/uL Chester # (Auto) (0.24-0.82) K/uL Eos # (Auto) (0-0.50) K/uL Baso # (Auto) (0-0.2) K/uL Immature Gran # (Auto) (0.00-0.02) K/uL PT 10.7 (9.0-12.0) Seconds INR 1.0 (0.9-1.1) APTT 23.5 (21.0-31.0) Seconds PTT Ratio 0.9 POC Sodium (135-144) mmol/L Sodium 136 (136-145) mmol/L POC Potassium (3.3-5.0) mmol/L Potassium 3.2 L (3.5-5.1) mmol/L POC Chloride (101-112) mmol/L Chloride 104 (98-107) mmol/L Carbon Dioxide 18 L (21-32) mmol/L POC Total CO2 (24-31) mmol/L Anion Gap 14 H (3-11) POC Anion Gap (16-25) mmol/L POC BUN (7-18) mg/dl BUN 2 L (6-23) mg/dl Creatinine 0.52 L (0.6-1.2) mg/dl POC Creatinine (0.6-1.3) mg/dl Est Cr Clr Drug Dosing 203.1 ml/min Est GFR ( Amer) 144.5 ml/min Est GFR (Non-Af Amer) 124.7 ml/min BUN/Creatinine Ratio 3.8 L (10-20) Glucose 152 H (70-99(Fasting)) mg/dl POC Glucose (70-99) mg/dl POC Glucose (other) (70-99) mg/dl Calcium 9.0 (8.5-10.1) mg/dl POC Ioniz Calcium Yany (1.12-1.32) mmol/l Magnesium 2.0 (1.7-2.4) mg/dl Total Bilirubin 0.5 (0.2-1.0) mg/dl AST 94 H (13-39) U/L ALT 68 H (7-52) U/L Alkaline Phosphatase 87 (34-104) U/L Troponin I High Sens 8.7 (0-14) pg/ml Total Protein 7.6 (6.0-8.3) gm/dl Albumin 4.4 (3.4-5.0) gm/dl Globulin 3.2 (2.5-4.0) gm/dl Albumin/Globulin Ratio 1.4 (0.9-2) HCG, Qual Negative (Negative) SARS-CoV-2, RNA, NAAT (NEGATIVE) Blood Type Antibody Screen 04/03/22 04/03/22 Range/Units 21:31 22:20 WBC (4.8-10.8) K/ul RBC (3.93-5.22) M/uL Hgb (12.0-16.0) g/dl POC Hgb 16.3 H (12.0-16.0) g/dl Hct (34.1-44.9) % POC Hct 48 H (37-47) % MCV (80.0-100.0) fL MCH (25.0-34.0) pg MCHC (32.0-36.0) g/dL RDW Std Deviation (36.4-46.3) fL RDW Coeff of Carmen (11.5-14.5) % Plt Count (130-400) K/uL MPV (9.4-12.3) fL Immature Gran % (Auto) % Neut % (Auto) % Lymph % (Auto) % Chester % (Auto) % Eos % (Auto) % Baso % (Auto) % Neut # (Auto) (1.4-6.5) K/uL Lymph # (Auto) (1.2-3.4) K/uL Chester # (Auto) (0.24-0.82) K/uL Eos # (Auto) (0-0.50) K/uL Baso # (Auto) (0-0.2) K/uL Immature Gran # (Auto) (0.00-0.02) K/uL PT (9.0-12.0) Seconds INR (0.9-1.1) APTT (21.0-31.0) Seconds PTT Ratio POC Sodium 141 (135-144) mmol/L Sodium (136-145) mmol/L POC Potassium 3.4 (3.3-5.0) mmol/L Potassium (3.5-5.1) mmol/L POC Chloride 105 (101-112) mmol/L Chloride (98-107) mmol/L Carbon Dioxide (21-32) mmol/L POC Total CO2 21 L (24-31) mmol/L Anion Gap (3-11) POC Anion Gap 20.0 (16-25) mmol/L POC BUN < 3 L (7-18) mg/dl BUN (6-23) mg/dl Creatinine (0.6-1.2) mg/dl POC Creatinine 0.7 (0.6-1.3) mg/dl Est Cr Clr Drug Dosing ml/min Est GFR ( Amer) ml/min Est GFR (Non-Af Amer) ml/min BUN/Creatinine Ratio (10-20) Glucose (70-99(Fasting)) mg/dl POC Glucose (70-99) mg/dl POC Glucose (other) 168 H (70-99) mg/dl Calcium (8.5-10.1) mg/dl POC Ioniz Calcium Yany 1.13 (1.12-1.32) mmol/l Magnesium (1.7-2.4) mg/dl Total Bilirubin (0.2-1.0) mg/dl AST (13-39) U/L ALT (7-52) U/L Alkaline Phosphatase (34-104) U/L Troponin I High Sens (0-14) pg/ml Total Protein (6.0-8.3) gm/dl Albumin (3.4-5.0) gm/dl Globulin (2.5-4.0) gm/dl Albumin/Globulin Ratio (0.9-2) HCG, Qual (Negative) SARS-CoV-2, RNA, NAAT NEGATIVE (NEGATIVE) Blood Type Antibody Screen Administered Medications Sodium Chloride (Nss 1000ml) 1,000 mls @ 125 mls/hr IV .Q8H STA Stop: 04/04/22 05:01 Last Admin: 04/03/22 21:33 Dose: 125 mls/hr Documented By: SUSHILA Discontinued Medications Diphenhydramine HCl (Diphenhydramine 50 Mg/Ml Vial) 12.5 mg IV NOW STA Stop: 04/03/22 21:22 Last Admin: 04/03/22 21:27 Dose: 12.5 mg Documented By: SUSHILA Hydromorphone HCl (Hydromorphone Inj 0.5 Mg/0.5 Ml Syr) 0.5 mg IV NOW STA Stop: 04/03/22 22:13 Last Admin: 04/03/22 22:22 Dose: 0.5 mg Documented By: SSUHILA Hydromorphone HCl (Hydromorphone Inj 0.5 Mg/0.5 Ml Syr) 0.5 mg IV NOW STA Stop: 04/03/22 23:05 Last Admin: 04/03/22 23:25 Dose: 0.5 mg Documented By: CLAUS Prochlorperazine (Compazine) 2 mls @ 1 mls/min IV ONE ONE Stop: 04/03/22 21:03 Last Admin: 04/03/22 23:36 Dose: Not Given Documented By: CLAUS Ioversol (Optiray 300 500ml) 120 ml IV ONCE ONE Stop: 04/03/22 20:52 Last Admin: 04/03/22 20:51 Dose: 120 ml Documented By: FAUSTINO Ketorolac Tromethamine (Ketorolac Tromethamine 15 Mg/Ml Vial) 10 mg IV NOW ONE Stop: 04/03/22 21:03 Last Admin: 04/03/22 21:26 Dose: 10 mg Documented By: SUSHILA Labetalol HCl (Labetalol Hcl Iv 5 Mg/Ml 20ml) 10 mg IV NOW STA Stop: 04/03/22 21:05 Last Admin: 04/03/22 21:20 Dose: 10 mg Documented By: JM Co-signed By: NAM Metoclopramide HCl (Metoclopramide Hcl Inj 5 Mg/Ml 2 Ml Vial) 10 mg IV NOW STA Stop: 04/03/22 21:05 Last Admin: 04/03/22 21:26 Dose: 10 mg Documented By: SUSHILA Ondansetron HCl (Ondansetron Inj 2 Mg/Ml 2 Ml Vial) 4 mg IV NOW STA Stop: 04/03/22 22:58 Last Admin: 04/03/22 23:02 Dose: 4 mg Documented By: CLAUS Imaging Data Radiologist's Impression: Chest X-Ray 04/03/22 20:37 SINGLE VIEW CHEST CLINICAL HISTORY: Strokelike symptoms. FINDINGS: An AP, portable, upright chest radiograph is compared to study dated 06/25/2021. The examination is degraded by portable technique and patient rotation. The cardiomediastinal silhouette is unremarkable. There is elevation of the right hemidiaphragm with mild atelectasis. The lungs and pleural spaces are otherwise clear. No pneumothorax is seen. The bony thorax is grossly intact. IMPRESSION: No active disease in the chest. ACT 112: Negative or not required by law. Electronically signed by: Rakesh Sarabia M.D. 04/03/2022 9:[address] 04/03/22 20:[address] OF THE BRAIN; CT ANGIOGRAM OF THE BRAIN; CT ANGIOGRAM OF THE NECK CLINICAL HISTORY: Headache. COMPARISON STUDY: CT scan of the brain dated 01/26/2021. CT angiogram of the head and neck dated 09/12/2020. TECHNIQUE: Unenhanced axial CT of the brain was performed. Subsequent, following the IV administration of 120 of Optiray 300, CT angiogram of the head and neck was performed from the aortic arch to the vertex. Images are reviewed in the axial, sagittal, and coronal planes. 3-D MIPS images are created and assessed. IV contrast was administered without complication. All measurements were phillip culated based on NASCET criteria. A dose lowering technique was utilized adhering to the principles of ALARA. CT DOSE: 1621.39 mGy.cm FINDINGS: Brain parenchyma: The brain parenchyma is normal in appearance. There is no h emorrhage, mass effect, or evidence of acute territorial ischemia by CT criteria. There is no evidence of enhancing mass lesion on the angiogram phase images. The ventricles, sulci, and cisterns are normal in configuration. Lucas- white matter differentiation is preserved. No extra-axial fluid collection is seen. Thoracic aorta: Visualized portions of the thoracic aorta are normal in caliber. The aortic arch demonstrates 4-vessel variant anatomy. The left vertebral artery arises distracted from the arch. Right carotid arterial system: The right common carotid artery is widely patent, as are the right internal and external carotid arteries. There is tortuosity of the distal internal carotid artery. Left carotid arterial system: The left common carotid artery is widely patent, as are the left internal and external carotid arteries. There is tortuosity of the distal internal carotid artery. Vertebral arteries: The vertebral arteries are widely patent bilaterally and codominant in the neck. Subclavian arteries: Widely patent bilaterally. Intracranial vasculature: There is origin of the left posterior cerebral artery. A large posterior communicating artery seen on the right. The internal carotid arteries are patent at the skull base, as are the anterior and middle cerebral arteries bilaterally. The vertebrobasilar system and posterior cerebral arteries are diminutive but patent. The right vertebral artery is dominant. The right P1 segment is diminutive. There is no aneurysm, high-grade stenosis, or focal vessel cut off seen throughout the intracranial circulation. Jugular veins: Patent bilaterally. Dural sinuses: Patent. Lung apices: Partially visualized upper lobe lung parenchyma appears clear. Soft tissues: The visualized pharyngeal soft tissues are normal in appearance noting angiographic phase technique. The oropharyngeal airway appears widely patent. The salivary and thyroid glands are normal in appearance. No cervical lymphadenopathy is seen. Skeletal structures: The calvarium appears intact. The cervical spine is within normal limits. No lytic or blastic lesion is seen. Sinuses and mastoids: There is trace mucosal thickening in the right maxillary antrum. The remaining paranasal sinuses are clear. The mastoid air cells are well pneumatized. IMPRESSION: 1. There is no hemorrhage, mass effect, or evidence of acute territorial ischemia by CT criteria. 2. Unremarkable CT angiogram of the brain. 3. Unremarkable CT angiogram of the neck. ACT 112: Negative or not required by law. Electronically signed by: Rakesh Sarabia M.D. 04/03/2022 9:01 PM Head CTA 04/03/22 20:[address] OF THE BRAIN; CT ANGIOGRAM OF THE BRAIN; CT ANGIOGRAM OF THE NECK CLINICAL HISTORY: Headache. COMPARISON STUDY: CT scan of the brain dated 01/26/2021. CT angiogram of the head and neck dated 09/12/2020. TECHNIQUE: Unenhanced axial CT of the brain was performed. Subsequent, following the IV administration of 120 of Optiray 300, CT angiogram of the head and neck was performed from the aortic arch to the vertex. Images are reviewed in the axial, sagittal, and coronal planes. 3-D MIPS images are created and assessed. IV contrast was administered without complication. All measurements were calculated based on NASCET criteria. A dose lowering technique was utilized adhering to the principles of ALARA. CT DOSE: 1621.39 mGy.cm FINDINGS: Brain parenchyma: The brain parenchyma is normal in appearance. There is no hemorrhage, mass effect, or evidence of acute territorial ischemia by CT criteria. There is no evidence of enhancing mass lesion on the angiogram phase images. The ventricles, sulci, and cisterns are normal in configuration. Lucas- white matter differentiation is preserved. No extra-axial fluid collection is seen. Thoracic aorta: Visualized portions of the thoracic aorta are normal in caliber. The aortic arch demonstrates 4-vessel variant anatomy. The left vertebral artery arises distracted from the arch. Right carotid arterial system: The right common carotid artery is widely patent, as are the right internal and external carotid arteries. There is tortuosity of the distal internal carotid artery. Left carotid arterial system: The left common carotid artery is widely patent, as are the left internal and external carotid arteries. There is tortuosity of the distal internal carotid artery. Vertebral arteries: The vertebral arteries are widely patent bilaterally and codominant in the neck. Subclavian arteries: Widely patent bilaterally. Intracranial vasculature: There is origin of the left posterior cerebral artery. A large posterior communicating artery seen on the right. The internal carotid arteries are patent at the skull base, as are the anterior and middle cerebral arteries bilaterally. The vertebrobasilar system and posterior cerebral arteries are diminutive but patent. The right vertebral artery is dominant. The right P1 segment is diminutive. There is no aneurysm, high-grade stenosis, or focal vessel cut off seen throughout the intracranial circulation. Jugular veins: Patent bilaterally. Dural sinuses: Patent. Lung apices: Partially visualized upper lobe lung parenchyma appears clear. Soft tissues: The visualized pharyngeal soft tissues are normal in appearance noting angiographic phase technique. The oropharyngeal airway appears widely patent. The salivary and thyroid glands are normal in appearance. No cervical lymphadenopathy is seen. Skeletal structures: The calvarium appears intact. The cervical spine is within normal limits. No lytic or blastic lesion is seen. Sinuses and mastoids: There is trace mucosal thickening in the right maxillary antrum. The remaining paranasal sinuses are clear. The mastoid air cells are well pneumatized. IMPRESSION: 1. There is no hemorrhage, mass effect, or evidence of acute territorial ischemia by CT criteria. 2. Unremarkable CT angiogram of the brain. 3. Unremarkable CT angiogram of the neck. ACT 112: Negative or not required by law. Electronically signed by: Rakesh Sarabia M.D. 04/03/2022 9:01 PM Neck CTA 04/03/22 20:[address] OF THE BRAIN; CT ANGIOGRAM OF THE BRAIN; CT ANGIOGRAM OF THE NECK CLINICAL HISTORY: Headache. COMPARISON STUDY: CT scan of the brain dated 01/26/2021. CT angiogram of the head and neck dated 09/12/2020. TECHNIQUE: Unenhanced axial CT of the brain was performed. Subsequent, following the IV administration of 120 of Optiray 300, CT angiogram of the head and neck was performed from the aortic arch to the vertex. Images are reviewed in the axial, sagittal, and coronal planes. 3-D MIPS images are created and assessed. IV contrast was administered without complication. All measurements were calculated based on NASCET criteria. A dose lowering technique was utilized adhering to the principles of ALARA. CT DOSE: 1621.39 mGy.cm FINDINGS: Brain parenchyma: The brain parenchyma is normal in appearance. There is no hemorrhage, mass effect, or evidence of acute territorial ischemia by CT criteria. There is no evidence of enhancing mass lesion on the angiogram phase images. The ventricles, sulci, and cisterns are normal in configuration. Lucas- white matter differentiation is preserved. No extra-axial fluid collection is seen. Thoracic aorta: Visualized portions of the thoracic aorta are normal in caliber. The aortic arch demonstrates 4-vessel variant anatomy. The left vertebral artery arises distracted from the arch. Right carotid arterial system: The right common carotid artery is widely patent, as are the right internal and external carotid arteries. There is tortuosity of the distal internal carotid artery. Left carotid arterial system: The left common carotid artery is widely patent, as are the left internal and external carotid arteries. There is tortuosity of the distal internal carotid artery. Vertebral arteries: The vertebral arteries are widely patent bilaterally and codominant in the neck. Subclavian arteries: Widely patent bilaterally. Intracranial vasculature: There is origin of the left posterior cerebral artery. A large posterior communicating artery seen on the right. The internal carotid arteries are patent at the skull base, as are the anterior and middle cerebral arteries bilaterally. The vertebrobasilar system and posterior cerebral arteries are diminutive but patent. The right vertebral artery is dominant. The right P1 segment is diminutive. There is no aneurysm, high-grade stenosis, or focal vessel cut off seen throughout the intracranial circulation. Jugular veins: Patent bilaterally. Dural sinuses: Patent. Lung apices: Partially visualized upper lobe lung parenchyma appears clear. Soft tissues: The visualized pharyngeal soft tissues are normal in appearance noting angiographic phase technique. The oropharyngeal airway appears widely patent. The salivary and thyroid glands are normal in appearance. No cervical lymphadenopathy is seen. Skeletal structures: The calvarium appears intact. The cervical spine is within normal limits. No lytic or blastic lesion is seen. Sinuses and mastoids: There is trace mucosal thickening in the right maxillary antrum. The remaining paranasal sinuses are clear. The mastoid air cells are well pneumatized. IMPRESSION: 1. There is no hemorrhage, mass effect, or evidence of acute territorial ischemia by CT criteria. 2. Unremarkable CT angiogram of the brain. 3. Unremarkable CT angiogram of the neck. ACT 112: Negative or not required by law. Electronically signed by: Rakesh Sarabia M.D. 04/03/2022 9:01 PM Discharge Plan Visit Data Chief Complaint: Stroke Alert ED Provider: Manjit Shah Discharge Problem: Acute headache, Hypertensive emergency, Stroke-like symptoms Forms Stand Alone Forms: My [facility] Prescriptions Prescriptions: No Action epinephrine [EpiPen] 0.3 mg/0.3 mL Auto-Injector 0.3 mg IM DIRECTED PRN (Reason: Allergic Reaction) Label Comments: pt says nothing has changed in a week since shes been here last clonazepam 1 mg tablet 1 mg PO TID PRN (Reason: Anxiety) amlodipine 10 mg Tablet 10 mg PO DAILY omeprazole 40 mg capsule,delayed release(DR/EC) 40 mg PO DAILY 14 Days Qty: 14 0RF ondansetron HCl 4 mg tablet 4 mg PO Q8 PRN (Reason: Nausea) Referrals Referrals: Angelic Pereira DO [Primary Care Provider] -
[2022-04-04] MEDS ORDERED: POTASSIUM CHLORIDE 20 MEQ/15 ML UDC PO STA (02:10)
[2022-04-04 02:38] LABS: Appearance Urine Cloudy (Clear); Bacteria Urine Automated 2+ (Negative); Blood Urine Negative (Negative); Color Urine Dark Yellow; Epithelial Cell Urine Auto >30 /lpf (0-5); Glucose Urine UA Negative (Negative); Ketones Urine Trace (Negative); Leukocyte Esterase Urine Negative (Negative); Nitrite Urine Negative (Negative); Protein Urine 2+ (Negative); Specific Gravity Urine > 1.045 (1.000-1.030); Urobilinogen Urine Negative (Negative)
[2022-04-04 02:40] LABS: Bilirubin Urine 1+ (Negative)
[2022-04-04 02:57] LABS: Cast Urine Automated 0 /lpf (0-5); RBC Urine Automated 0-4 /hpf (0-4)
[2022-04-04] MEDS ORDERED: NITROGLYCERIN SL 0.4 MG/TAB TAB SL PRN (03:51)
[2022-04-04] MEDS ORDERED: ONDANSETRON INJ 2 MG/ML 2 ML VIAL IV PRN (03:51)
[2022-04-04] MEDS ORDERED: PHARMACIST DISCHARGE MED REC CONSULT PRN (03:51)
[2022-04-04] MEDS ORDERED: SODIUM CHLORIDE 0.45 % 1,000 ML IV SCH (03:51)
[2022-04-04] MEDS ORDERED: LABETALOL HCL IV 5 MG/ML 20ML IV PRN (03:51)
[2022-04-04] MEDS ORDERED: POLYETHYLENE (MIRALAX) 17 GM PACK PO PRN (03:51)
[2022-04-04] MEDS: clonazePAM 1 MG TAB PO PRN ×2 (04:34→12:29)
[2022-04-04] MEDS ORDERED: GADOBUTROL 65ML VIAL IV ONE (05:20)
--- NOTE | 2022-04-04 05:37 | History and Physical Report ---
DATE OF ADMISSION: 04/04/2022. CHIEF COMPLAINT: Stroke-like symptoms. HISTORY OF PRESENT ILLNESS: A 36-year-old female with past medical history significant for chronic hypokalemia, hypertensive urgency, history of hypertension, morbid obesity, opioid dependence in remission, history of seizure-like activity, infection of tooth, bipolar I disorder, tobacco abuse, generalized anxiety disorder, posttraumatic stress disorder, presents with stroke-like symptoms. The patient states that around 7 p.m. she felt numbness in the right side of the face and her speech changed and her got worried and she was brought into the hospital. She was stroke alert on arrival. CT scan was done and imaging studies were unremarkable. ER physician [place] stroke neurologist, Dr. Schroeder. As by that time symptoms much improved and imaging studies were unremarkable,was advised for a aspirin and MRI scan and Neurology conmsult.. Her blood pressure was high when she came in, it was in 220/120 range. She was given iv labetalol. The patient says she is supposed to be on amlodipine 10 mg, hydrochlorothiazide 25 mg, lisinopril 10 mg and spironolactone 50 mg daily. She states she is taking these medications regularly, but for the last 2 days she has had some mild stomach upset and she missed her Aldactone in the morning. She is having severe headache. She still smokes half pack a day. She says she does not have sleep apnea. She said at one point she was told she has renal stenosis, but then after that she had studies done and she was told she does not have it.Currently resting comfortably. No blurred visions, no earache, no runny nose, no sore throat, no cough, no difficulty swallowing. No chest pain, no shortness of breath, no nausea, no abdominal pain. Normal bowel and bladder movements. No swelling in the legs. ALLERGIES: NUT, PENICILLINS, PEANUTS, MORPHINE, MUSHROOM. PAST MEDICAL HISTORY: As mentioned above. PAST SURGICAL HISTORY: Cholecystectomy, hysteroscopy, endometrial ablation, ligation of oviduct, appendectomy, surgical removal of erupted tooth. MEDICATIONS: As per [facility], the patient is on amlodipine 10 mg p.o. daily, bupropion 100 mg p.o. b.i.d., Klonopin 1 mg p.o. t.i.d. p.r.n., hydrochlorothiazide 25 mg p.o. daily, lisinopril 10 mg p.o. daily, albuterol p.r.n. FAMILY HISTORY: Significant for father has alcoholism. Mother has bipolar disorder, heart attack, stroke. Sister has kidney stones, drug abuse. SOCIAL HISTORY: Smokes half pack a day, currently not drinking alcohol, not currently using marijuana. REVIEW OF SYSTEMS: As per HPI. Rest of the review of systems is negative. PHYSICAL EXAMINATION: GENERAL: The patient is obese, not in acute distress. VITAL SIGNS: Temperature 37.1, pulse 103, respiratory rate 22, blood pressure 159/116, oxygen 92% on room air. HEENT: Pupils equal, round and reactive to light. Oral mucosa moist. NECK: No JVD or neck masses. CARDIOVASCULAR: S1 and S2 heard. Regular rate and rhythm. No murmur, no gallop. RESPIRATORY SYSTEM: Normal AP diameter. No accessory muscle use. No wheezing, no crackles. ABDOMEN: Soft, bowel sounds present, nontender, no distention. CENTRAL NERVOUS SYSTEM: Cranial nerves II-XII grossly intact. Power 5/5 in all extremities. Sensation is intact. Position sense intact. Coordination of movements normal. No pronator drift. EXTREMITIES: No edema, no erythema. LABORATORY DATA: WBC 9.2, hemoglobin 15.6, hematocrit 46.1, platelets 314. PT 10.7, INR 1, APTT 23.5. Sodium 136, potassium 3.2, chloride 104, bicarbonate 18, BUN 2, creatinine 0.5, serum glucose 152, calcium 9, magnesium 2, total bilirubin 0.5, AST 94, ALT 68, alkaline phosphatase 87. Troponin I high sensitivity 8.7. IMAGING DATA: CT of the head and CTA of the head and neck unremarkable. Chest x-ray, no acute findings. EKG: Sinus tachycardia at a rate of 107, no acute ST changes seen. ASSESSMENT AND PLAN: A 36-year-old female who presents with stroke-like symptoms. 1. Stroke-like symptoms with right sided facial numbness, right hand numbness and also some speech abnormality, which all improved except for some tingling sensation in the right side of the face. Imaging studies, the CT of the head and CTA of the head and neck unremarkable. Stroke alert was called on presentation and [place] stroke neurologist recommended aspirin and MRI scan, which we will do. We will also do echocardiogram, neuro consult. Monitor in the hospital. PT, OT when stable. 2. Hypertensive urgency, history of hypertension. Seems to be on lisinopril, hydrochlorothiazide, amlodipine and Aldactone. We will continue with amlodipine, lisinopril, hydrochlorothiazide and place her on IV labetalol p.r.n., await echocardiogram. Monitor in the tele. Await Cardiology input. 3. Chronic hypokalemia. The patient seems to be on Aldactone at home. We will follow the labs. 4. Anxiety: Continue Klonopin p.r.n. 5. Morbid obesity: Needs counseling. 6. Tobacco abuse: Needs counseling. 7. Deep venous thrombosis prophylaxis: Sequential compression devices for now. DISPOSITION: Closely monitor in tele floor. Level 1 full code. Expect to discharge home and follow with family doctor. Job ID: [id number] [id number]
[2022-04-04] MEDS: ACETAMINOPHEN 325 MG TAB PO PRN ×2 (05:42→10:37)
[2022-04-04 06:58] LABS: Basophils # (auto) 0.09 K/uL (0-0.2); Basophils % (auto) 0.9 %; Eosinophils # (auto) 0.36 K/uL (0-0.50); Eosinophils % (auto) 3.7 %; Hematocrit (blood only) 44.6 % (34.1-44.9); Immature Granulocytes # (auto) 0.16 K/uL (0.00-0.02); Immature Granulocytes % (auto) 1.7 %; Lymphocytes # (auto) 3.08 K/uL (1.2-3.4); Mean Corpuscular Hemoglobin 32.8 pg (25.0-34.0); Mean Corpuscular Hgb Conc 33.6 g/dL (32.0-36.0); Mean Corpuscular Volume 97.6 fL (80.0-100.0); Mean Platelet Volume 9.9 fL (9.4-12.3); Monocytes % (auto) 13.5 %; Neutrophils # (auto) 4.63 K/uL (1.4-6.5); Neutrophils % (auto) 48.2 %; Platelet Count 312 K/uL (130-400); RDW Coefficient of Variation 14.9 % (11.5-14.5); RDW Standard Deviation 53.6 fL (36.4-46.3); Red Blood Count 4.57 M/uL (3.93-5.22); White Blood Count 9.62 K/ul (4.8-10.8)
[2022-04-04 07:26] LABS: Estimated Average Glucose 111 mg/dl; Hemoglobin A1C 5.5 % (4.5-5.6)
[2022-04-04] MEDS: HYDROmorphone INJ 0.5 MG/0.5 ML SYR IV PRN ×5 (07:32→23:39)
[2022-04-04 07:40] LABS: Anion Gap 13 (3-11); BUN Creatinine Ratio 4.3 (10-20); Blood Urea Nitrogen 3 mg/dl (6-23); Calcium 8.7 mg/dl (8.5-10.1); Carbon Dioxide 20 mmol/L (21-32); Chloride 102 mmol/L (98-107); Cholesterol 216 mg/dl (0-200); Creatinine Clr Calc Pharmacy 149.1 ml/min; Glucose 165 mg/dl (70-99(Fasting)); HDL Cholesterol 27 mg/dl; Potassium 3.9 mmol/L (3.5-5.1); Sodium 135 mmol/L (136-145); Triglycerides 594 mg/dl (0-150)
[2022-04-04] MEDS: amLODIPine BESYLATE 5 MG TAB PO SCH (08:06)
[2022-04-04] MEDS: PANTOprazole 40 MG TAB PO SCH (08:06)
[2022-04-04] MEDS: ASPIRIN 81 MG ECTAB PO SCH (08:06)
[2022-04-04] MEDS ORDERED: lisinopril 10 MG TAB PO SCH (09:00)
[2022-04-04] MEDS ORDERED: hydroCHLOROthiazide 25 MG TAB PO SCH (09:00)
--- NOTE | 2022-04-04 10:20 | Cardiology Consultation ---
Date of Consultation April 04, 2022 Assessment & Plan (1) Stroke-like symptoms: (2) Hypertensive urgency: (3) Palpitations: (4) Hypertensive heart disease: Plan Hypertensive urgency History of hypertension, hypertensive heart disease Secondary work-up negative in Agree with resumption of lisinopril and amlodipine. Reduced hydrochlorothiazide dosing to 12.5 mg/day, RE: mild hyponatremia. Resume spironolactone 25 mg/day for now Add low-dose carvedilol, 3.125 mg twice per day for blood pressure and heart rate control. Nonpharmacologic treatment of hypertension discussed - weight loss, sodium restriction, reduced in alcohol intake, daily aerobic exercise Further recommendations pending the above, evaluation by Dr. Pereira, patient's ongoing hospitalization Supervising Physician Co-Signing Physician Notes 36-year-old female present to the ER with headache and uncontrolled hypertension. Reports nausea and vomiting x2 days. Unable to take medications for at least 2 days. Markedly elevated blood pressure noted on admission. Continues to note mild headache. PE: Hypertensive. General: NAD, awake and alert. Heart: Regular rhythm, normal S1-S2. No murmur. Lungs: Clear bilateral, no rales, rhonchi, wheeze. Extremities: No edema. Neuro: No focal motor deficit. A/P: Agree with above PA-C history, physical exam, assessment and plan. Resume lisinopril and amlodipine as ordered in the outpatient setting. Hydrochlorothiazide will be reduced temporarily due to hyponatremia. Patient received dose of carvedilol and lisinopril at approximately 1 PM. Continue to monitor blood pressure closely. Recommend gradual decline of systolic blood pressure over the next 24-48 hours. Repeat echocardiogram demonstrates preserved LV systolic function with left ventricular hypertrophy. Results reviewed with patient at bedside. Thank you for allow me to participate in care of your patient. History of Present Illness Reason for Consultation: Hypertensive urgency Requesting Physician: Wilfredo Attending Physician: Cinthya History of Present Illness Ms. Brigette Marti is a 36 year old female who is being seen at the request of Dr. Villalobos. Reason for consultation is hypertensive urgency. Patient presented to the [facility] ER on 04/03/2022 via EMS due to worsening headache and right-sided numbness involving the face, right upper extremity, and right lower extremity. Symptoms started around 1 PM on April 03, 2022. Associated symptoms include nausea and vomiting. Patient was notably seen in the ER on March 31, 2022 with abdominal pain. Blood pressure on presentation at that time was 227/100, 153/98 on discharge. Blood pressure on presentation on April 03, 2022 was 191/146. Patient notes noncompliance with antihypertensive regimen over the last couple of days due to stomach issues. Patient's prior antihypertensive regimen included amlodipine 10 mg/day, hydrochlorothiazide 25 mg/day, lisinopril 10 mg/day, and spironolactone 50 mg/day. Patient notes admission to [facility] in the past, ultrasound at that time raising concern for possible renal artery stenosis. After prolonged chart review, I determined the patient is listed in the [facility] electronic medical record as Brigette Patel, . The patient has previously been followed by [facility] and had a secondary work-up performed by Dr. Thomas which was negative. Imaging showed no evidence of renal artery stenosis, no accessory renal arteries, conventional renal venous anatomy. Patient notes awareness of elevated heart rate, palpitations. Patient denies chest pain. She has chronic exertional dyspnea. No resting dyspnea. No orthopnea or PND. No peripheral edema. No history of syncope. Patient denies no prior cardiac history. Patient specifically denies history of CAD, PR, CHF, arrhythmia, heart murmur, rheumatic fever, or scarlet fever. Family History: Mother is alive and well without cardiac issues. Father is alive and well without cardiac issues. Sister had an PR at the age of 18. Another sister is okay. Cousin with congenital heart disease status post pacemaker Social History: Patient is a smoker of cigarettes since the age of 15, currently 1/2 to 1 pack/day. Alcohol: 3 days/week she will consume 1 bottle of wine. Patient denies illegal drug use. Allergies Allergy/AdvReac Type Severity Reaction Status Date / Time nut - unspecified Allergy Severe Anaphylaxis Verified 04/03/22 23:17 Penicillins Allergy Severe Difficulty Verified 04/03/22 23:17 Breathing tree nut Allergy Severe Anaphylaxis Verified 04/03/22 23:17 morphine Allergy Intermediate Hives Verified 04/03/22 23:17 mushroom Allergy Intermediate Hives Verified 04/03/22 23:17 Home Medications Medication Instructions Recorded Confirmed Type epinephrine 0.3 mg/0.3 mL 0.3 mg IM DIRECTED PRN Allergic 05/13/18 04/03/22 History injection, auto-injector (EpiPen) Reaction clonazepam 1 mg tablet 1 mg PO TID PRN Anxiety 11/05/20 04/03/22 History amlodipine 10 mg tablet 10 mg PO DAILY 06/02/21 04/03/22 History omeprazole 40 mg capsule,delayed 40 mg PO DAILY 14 days #14 caps 03/31/22 04/03/22 Rx release ondansetron HCl 4 mg tablet 4 mg PO Q8 PRN Nausea 04/03/22 04/03/22 History Patient History Medical History Alcohol abuse, unspecified (07/15/12) Anxiety state, unspecified (06/16/11) Bipolar disorder Headache Hypertension (07/15/12) Overdose of antipsychotic Surgical History Cholecystostomy care History of appendectomy (12/25/12) History of dental surgery Tubal ligation status Family History Other No pertinent family history Social History Smoking Status: Current every day smoker Tobacco Type: Cigarettes Cigarettes Per Day: 20; Second Hand Exposure: No; Do You Dip or Chew Tobacco: No; Tobacco Cessation Education Requested by Patient: No Hx Alcohol Use: Yes Alcohol type: beer and wine Hx Substance Use: Yes Last Used Substance: Unknown Last Used Substance Other:: Medical Marijuana yesterday. 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 No fevers, sweats, or chills. HEENT: Glasses. It aches. No amaurosis fugax. Pulmonary: No history of sleep apnea, pulmonary embolism, or asthma. Cardiac: See above. GI/Abd: Epigastric pain. Heartburn. No dysphagia. No melena or hematochezia.? History of renal artery stenosis. Hepatic steatosis. History of kidney stones. Vascular: Denies history of claudication, AAA, or carotid artery disease. Hematologic: No coagulation disorder, anemia, or abnormal bleeding. Musculoskeletal: Negative. Skin: Multiple tattoos. No rash. Neurologic: History of seizures associated with head trauma. No history of CVA. Endocrine: No DM or thyroid problems. Complete Review of Systems is as stated above or negative. Physical Exam Physical Exam: Patient's entire consultation was completed in the presence of sharona Roy CNA General: A&Ox3. NAD. Elevated BMI HENT: Normocephalic. Atraumatic. Eyes: PER. Conjunctiva pink, sclera clear. Neck: No carotid bruits. No JVD. Heart: RRR, 96 bpm. No murmur appreciated. No rub. Lungs: Clear to auscultation. Abdomen: +BS. Soft. Nontender. No masses or organomegaly. Extremities: No clubbing, cyanosis, or edema. Limited neurological examination is without focal deficits. Pulses: radial=2/4, posterior tibial=2/4. Results & Data ([facility]) Vital Signs (Past 12 Hours) Vital Signs Temp Pulse Pulse Resp BP BP BP 04/04/22 07:55 36.6 C 100 H 22 170/108 H 04/04/22 07:49 104 H 04/04/22 03:49 105 H 04/04/22 03:53 37 C 101 H 18 115/110 H 04/04/22 03:40 04/04/22 03:20 112 H 16 04/04/22 03:10 98 H 22 04/04/22 03:01 100 H 17 04/04/22 03:01 147/113 H 04/04/22 03:00 103 H 19 04/04/22 02:50 96 H 19 04/04/22 02:40 99 H 17 04/04/22 02:30 98 H 20 136/96 04/04/22 02:20 103 H 22 04/04/22 02:14 04/04/22 02:00 113 H 23 04/04/22 02:00 159/116 H 04/04/22 01:50 110 H 18 04/04/22 01:40 101 H 15 04/04/22 01:30 112 H 23 04/04/22 01:20 112 H 20 04/04/22 01:13 106 H 24 04/04/22 01:13 147/88 H 04/04/22 01:10 04/04/22 01:00 104 H 21 04/04/22 00:50 109 H 22 04/04/22 01:00 111 H 147/88 H 04/04/22 00:40 120 H 18 04/04/22 00:30 110 H 17 04/04/22 00:20 110 H 19 04/04/22 00:10 104 H 21 04/04/22 00:00 107 H 23 04/03/22 23:50 100 H 19 04/03/22 23:40 102 H 21 04/03/22 23:30 95 H 18 04/03/22 23:25 101 H 25 H 04/03/22 23:10 98 H 19 04/03/22 23:00 95 H 24 04/03/22 23:00 164/98 H 04/03/22 22:50 96 H 23 04/03/22 22:45 95 H 22 04/03/22 22:45 166/109 H 04/03/22 22:42 98 H 18 04/03/22 22:30 95 H 19 04/03/22 22:30 142/95 H Pulse Ox O2 Del Method 04/04/22 07:55 94 Room Air 04/04/22 07:49 04/04/22 03:49 04/04/22 03:53 95 Room Air 04/04/22 03:40 Room Air 04/04/22 03:20 97 04/04/22 03:10 93 04/04/22 03:01 93 04/04/22 03:01 04/04/22 03:00 95 04/04/22 02:50 94 04/04/22 02:40 95 04/04/22 02:30 94 04/04/22 02:20 92 04/04/22 02:14 91 04/04/22 02:00 95 04/04/22 02:00 04/04/22 01:50 94 04/04/22 01:40 94 04/04/22 01:30 95 04/04/22 01:20 90 04/04/22 01:13 93 04/04/22 01:13 04/04/22 01:10 92 04/04/22 01:00 95 04/04/22 00:50 92 04/04/22 01:00 98 04/04/22 00:40 94 04/04/22 00:30 94 04/04/22 00:20 94 04/04/22 00:10 95 04/04/22 00:00 94 04/03/22 23:50 95 04/03/22 23:40 95 04/03/22 23:30 91 04/03/22 23:25 95 04/03/22 23:10 94 04/03/22 23:00 95 04/03/22 23:00 04/03/22 22:50 95 04/03/22 22:45 93 04/03/22 22:45 04/03/22 22:42 96 04/03/22 22:30 94 04/03/22 22:30 Laboratory Results Cardiac Enzymes 04/03/22 Range/Units 21:09 AST 94 H (13-39) U/L Troponin I High Sens 8.7 (0-14) pg/ml Coagulation 04/03/22 Range/Units 21:09 PT 10.7 (9.0-12.0) Seconds APTT 23.5 (21.0-31.0) Seconds Lipids 04/04/22 Range/Units 06:21 Triglycerides 594 H (0-150) mg/dl Cholesterol 216 H (0-200) mg/dl HDL Cholesterol 27 mg/dl Cholesterol/HDL Ratio 8.0 H (0-5) CBC 04/03/22 04/04/22 Range/Units 21:09 06:21 WBC 9.23 9.62 (4.8-10.8) K/ul RBC 4.80 4.57 (3.93-5.22) M/uL Hgb 15.6 15.0 (12.0-16.0) g/dl Hct 46.1 H 44.6 (34.1-44.9) % Plt Count 314 312 (130-400) K/uL Neut # (Auto) 3.42 4.63 (1.4-6.5) K/uL Lymph # (Auto) 4.05 H 3.08 (1.2-3.4) K/uL Curry # (Auto) 0.92 H 1.30 H (0.24-0.82) K/uL Eos # (Auto) 0.51 H 0.36 (0-0.50) K/uL Baso # (Auto) 0.13 0.09 (0-0.2) K/uL Comprehensive Metabolic Panel 04/03/22 04/04/22 Range/Units 21:09 06:21 Sodium 136 135 L (136-145) mmol/L Potassium 3.2 L 3.9 D (3.5-5.1) mmol/L Chloride 104 102 (98-107) mmol/L Carbon Dioxide 18 L 20 L (21-32) mmol/L BUN 2 L 3 L (6-23) mg/dl Creatinine 0.52 L 0.70 (0.6-1.2) mg/dl Glucose 152 H 165 H (70-99(Fasting)) mg/dl Calcium 9.0 8.7 (8.5-10.1) mg/dl AST 94 H (13-39) U/L ALT 68 H (7-52) U/L Alkaline Phosphatase 87 (34-104) U/L Total Protein 7.6 (6.0-8.3) gm/dl Albumin 4.4 (3.4-5.0) gm/dl Intake and Output 04/03/22 04/04/22 04/04/22 22:59 06:59 14:59 Intake Total 772 / 772 Output Total 200 / 200 Balance 572 / 572 Intake: Oral 772 / 772 Output: Other 200 / 200 Other: Weight 125.5 kg 123 kg Weight Measurement Method Built in [facility] Built in [facility] Diagnostic Findings EKG on presentation revealed sinus tachycardia at 107 bpm. Possible left atrial enlargement. Incomplete right bundle branch block. Poor R wave progression. QTC 477 ms Continuous telemetry monitoring reveals sinus/sinus tachycardia with heart rates ranging from the 90s to 1 teens. Occasional PVCs. Resting echocardiography in April 04, 2022 documented no interatrial shunt. No significant valvular pathology. LV systolic function was preserved, without wall motion abnormality, ejection fraction 60 to 65%. Mild concentric LVH was noted along with grade 1 diastolic dysfunction.
--- NOTE | 2022-04-04 10:23 | Magnetic Resonance Report ---
MRI OF THE BRAIN COMBO CLINICAL HISTORY: Headache. Stroke like symptoms. COMPARISON STUDY: CT of the brain dated 04/03/2022. MRI of the brain dated 09/05/2020. TECHNIQUE: MRI of the brain was performed utilizing various T1 and T2-weighted sequences in the axial , sagittal, and coronal planes. Contrast-enhanced sequences were acquired following the administratio n of 12 cc of Gadavist. FINDINGS: Brain parenchyma: The brain parenchyma is normal in appearance. 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 There is no hemorrhage or mass effect. There is no restric leeroy diffusion to suggest acute ischemia. No enhancing mass lesion is identified on the postcontrast i mages. Lucas-white matter differentiation is preserved. No extra-axial fluid collection is seen. The c erebellar tonsils are normal in configuration. Ventricles, sulci, and cisterns: Normal in configuration. Pituitary and sella: Unremarkable. Intracranial vasculature: Normal flow voids are maintained at the skull base. Orbits: The bony orbits are grossly intact. Orbital contents are normal in appearance. Sinuses and mastoids: Clear. Calvarium: Unremarkable. Cervical cord: Partially visualized cervical spinal cord is normal in morphology and signal intensity . IMPRESSION: No acute intracranial abnormality. ACT 112: Negative or not required by law. Electronically signed by: Rakesh Sarabia M.D. 04/04/2022 10:21 AM
--- NOTE | 2022-04-04 10:29 | Electrocardiogram Report ---
Test Reason : Blood Pressure : / mmHG Vent. Rate : 107 BPM Atrial Rate : 107 BPM P-R Int : 156 ms QRS Dur : 104 ms QT Int : 358 ms P-R-T Axes : 067 035 038 degrees QTc Int : 477 ms Sinus tachycardia Possible Left atrial enlargement Incomplete right bundle branch block Poor R wave progression, consider anterior MT vs. lead placement vs. LVH Abnormal ECG When compared with ECG of 31-MAR-2022 02:55, ST no longer depressed in Inferior leads Confirmed by Tucker Knight ([id number]) on 04/04/2022 10:28:30 AM Referred By: REFERRED SELF Confirmed By:Tucker Knight
[2022-04-04] MEDS ORDERED: carvediloL 3.125 MG TAB PO SCH (11:15)
--- NOTE | 2022-04-04 12:54 | Neurology Consultation ---
Date of Consultation April 04, 2022 Assessment & Plan (1) Hypertensive emergency: As Below (2) Stroke-like symptoms: As below (3) Headache: As below. Plan IMPRESSION: 1/ Intractable Headache: This is most likely due to hypertensive emergency. Based on history complicated migraine is less likely. RCVS ( reflex cerebral vasoconstrictive syndrome) is unlikely based on recurrent similar events with negative imaging studies. No findings to suggest arterial dissection. No history or imaging abnormality to suggest TIA/CVA. REC: --Management of Htn. Calcium channel blockers is recommended in Htn treatment as it is helpful for headaches and RCVS. --There is no neurological indication for antiplatelet treatment. --If headache persists we might consider short treatment on low dose Neurontin. --Cessation for tobacco and alcohol is strongly recommended. We should avoid using vasoconstrictive medications including triptans for headache . The patient should avoid using vasoconstrictive OTC medications including vasoconstrictive cold medications. --If she develops episodic headache syndrome, neurology clinic f/u. --The patient is neurologically stable to discharge home after management of Hypertensive urgency. 2/ Stroke-like symptoms: This is again likely due to hypertensive emergency. Multiple similar neurological events while having significantly elevated BP. No headaches without elevated BP is works against complicated migraine, however, it is still in differential as severe migraine might cause elevated BP. Negative stroke w/u including repeated MRIs over last few years during neurological symptoms makes TIA/CVA unlikely. REC: --No additional w/u is indicated 3/ Snoring and daytime sleepiness: Probable sleep-disordered breathing as seen in SHAE. Obviously SHAE might contribute difficult to control Htn and obesity. REC: --Outpatient f/u with PCP to assess SHAE. PSG might be indicated. 4/ Tobacco and alcohol abuse This might contribute Htn, SHAE, headache and might lower threshold for cerebral vasoconstrictive syndromes. REC: --Cessation is strongly recommended. Outpatient counseling. Thank you for the consultation. Darryl Hernandez MD Neurology History of Present Illness Reason for Consultation: Stroke like symptoms and severe headache. Requesting Physician: Paco Mendes MD Attending Physician: Paco Mendes MD History of Present Illness The patient is a 36 yo RHWF who presented to ED yesterday evening with severe headache, right sided hemiparesthesia, and some imbalance and nausea. Stroke alert was activated and the patient was evaluated by Tele-Neurology and was found not a candidate for tPA. Her BP was significantly elevated around 220/120. She was started on aspirin and BP medications. She has received Compazine, and IV pain medication with partial improvement of headache and BP has been lowered gradually but still not normalized. While she was in ED HCT w/o contrast, CTA head and neck were all unremarkable. After admission the patient had a brain MRI w/wo contrast which was also unremarkable. As seen i the chart the patient has been hospitalized multiple times during last couple years with acute neurolog ical symptoms including severe headaches, right sided weakness, numbness, monocular diplopia and each time neurological w/u were negative. The patient reports that she gets bad headaches with or without additional neurological symptoms while her BP significantly elevated. She denies having headaches and neurological symptoms other times. She has been using cigarettes and wine daily but denies change of amount recently. She uses marijuana occasionally and last use was a month ago. She denies using any other illicit drugs, recent use of vasoconstrictive medications. She is not on any psychoactive medications other than Clonazepam for anxiety. She has not been taking Amlodipine for last few days due to stomach problems without consulting with her physician. She reports snoring at times when she is tired and non-refreshing sleep and daytime sleepiness. She has not been investigated for sleep-disordered breathing so far as she reported. She has no established diagnosis of Migraine but at some point complicated migraine was considered in differential when she presented with headache and neurological symptoms. She denies having neck pain, neck trauma or chiropractic maneuvers.Since admission her right hemiparesthesia has been improved other than slight residual right facial numbness. Headache severity is currently 3/10. She reports that typically headache improves with lowering BP. I have reviewed the chart and visualized imaging studies personally. I have discussed the case with the patient and answered her questions in detail. Allergies Allergy/AdvReac Type Severity Reaction Status Date / Time nut - unspecified Allergy Severe Anaphylaxis Verified 04/03/22 23:17 Penicillins Allergy Severe Difficulty Verified 04/03/22 23:17 Breathing tree nut Allergy Severe Anaphylaxis Verified 04/03/22 23:17 morphine Allergy Intermediate Hives Verified 04/03/22 23:17 mushroom Allergy Intermediate Hives Verified 04/03/22 23:17 Home Medications Medication Instructions Recorded Confirmed Type epinephrine 0.3 mg/0.3 mL 0.3 mg IM DIRECTED PRN Allergic 05/13/18 04/03/22 History injection, auto-injector (EpiPen) Reaction clonazepam 1 mg tablet 1 mg PO TID PRN Anxiety 11/05/20 04/03/22 History amlodipine 10 mg tablet 10 mg PO DAILY 06/02/21 04/03/22 History omeprazole 40 mg capsule,delayed 40 mg PO DAILY 14 days #14 caps 03/31/22 04/03/22 Rx release ondansetron HCl 4 mg tablet 4 mg PO Q8 PRN Nausea 04/03/22 04/03/22 History Patient History Medical History Alcohol abuse, unspecified (07/15/12) Anxiety state, unspecified (06/16/11) Bipolar disorder Headache Hypertension (07/15/12) Overdose of antipsychotic Surgical History Cholecystostomy care History of appendectomy (12/25/12) History of dental surgery Tubal ligation status Family History Other No pertinent family history Social History Smoking Status: Current every day smoker Tobacco Type: Cigarettes Cigarettes Per Day: 20; Second Hand Exposure: No; Do You Dip or Chew Tobacco: No; Tobacco Cessation Education Requested by Patient: No Hx Alcohol Use: Yes Alcohol type: beer and wine Hx Substance Use: Yes Last Used Substance: Unknown Last Used Substance Other:: Medical Marijuana yesterday. Hallucinogens 10 years ago Substance Use Type Other:: medical marijuana Preferred Language: Niuean Communication Ability: Effective Community Placement Worker Required: No Beliefs That Will Affect Care: None marital status: Current Living Situation: Spouse and Significant Other current occupational status: unemployed current occupation: Prior employment at [employer] How many Children do You have: 4 Other Information That Helps Us Care for You: No Feels Safe at Home: Yes Safety Concerns: Feels Safe At This Time Assistive Devices: Glasses Review of Systems Review of Systems: All systems reviewed & are unremarkable except as noted in HPI & below Physical Exam Physical Exam: Laboratory Results - last 24 hr 04/03/22 04/03/22 04/03/22 21:01 21:09 21:09 WBC 9.23 RBC 4.80 Hgb 15.6 POC Hgb Hct 46.1 H POC Hct MCV 96.0 MCH 32.5 MCHC 33.8 RDW Std Deviation 51.7 H RDW Coeff of Carmen 14.6 H Plt Count 314 MPV 9.6 Immature Gran % (A uto) 2.2 Neut % (Auto) 37.0 Lymph % (Auto) 43.9 Rankin % (Auto) 10.0 Eos % (Auto) 5.5 Baso % (Auto) 1.4 Neut # (Auto) 3.42 Lymph # (Auto) 4.05 H Rankin # (Auto) 0.92 H Eos # (Auto) 0.51 H Baso # (Auto) 0.13 Immature Gran # (A uto) 0.20 H PT INR APTT PTT Ratio POC Sodium Sodium POC Potassium Potassium POC Chloride Chloride Carbon Dioxide POC Total CO2 Anion Gap POC Anion Gap POC BUN BUN Creatinine POC Creatinine Est Cr Clr Drug Do sing Est GFR ( A quinten) Est GFR (Non-Af Am er) BUN/Creatinine Rat io Glucose POC Glucose 158 H POC Glucose (other ) Estimat Average Gl ucose Hemoglobin A1c Calcium POC Ioniz Calcium Yany Magnesium Total Bilirubin AST ALT Alkaline Phosphata se Troponin I High Se ns Total Protein Albumin Globulin Albumin/Globulin R atio Triglycerides Cholesterol LDL Cholesterol, C alc VLDL Cholesterol, Calc HDL Cholesterol Cholesterol/HDL Ra cari HCG, Qual Urine Color Chest X-Ray 0 04/03/22 20:37 SING LE VIEW CHEST CL INICAL HISTORY: S trokelike symptoms . FINDINGS: An A P, portable, uprig ht chest radiograp h is compared to beka bautista dated 06/25/20 21. The examinatio n is degraded by p ortable technique and patient rotati on. The cardiomed iastinal silhouett e is unremarkable. There is elevatio n of the right hem idiaphragm with mi ld atelectasis. Th e lungs and pleura l spaces are other greenberg clear. No pne umothorax is seen. The bony thorax i s grossly intact. IMPRESSION: No a ctive disease in t he chest. AC T 112: Negative or not required by l aw. Electr onically signed by : Coco Bustos 04/03/2022 9:[address] 20:[address] OF THE BRA IN; CT ANGIOGRAM O F THE BRAIN; CT AN GIOGRAM OF THE NEC K CLINICAL HISTO RY: Headache. C OMPARISON STUDY: CT scan of the bra in dated 01/26/[address] angiogram of the head and neck dated 09/12/2020. TECHNIQUE: Unenha nced axial CT of t he brain was perfo rmed. Subsequent, following the IV a dministration of 1 20 of Optiray 300, CT angiogram of t he head and neck w as performed from the aortic arch to the vertex. Image s are reviewed in the axial, sagitta l, and coronal radha lupillo. 3-D MIPS imag es are created and assessed. IV cont rast was administe red without compli cation. All measur ements were calcul ated based on NASC ET criteria. A do se lowering techni que was utilized a dhering to the [facility]. CT DOSE: 1621.39 mGy.cm FINDINGS : Brain parenchy ma: The brain pare nchyma is normal i n appearance. Ther e is no hemorrhage , mass effect, or evidence of acute territorial ischem ia by CT criteria. There is no evide nce of enhancing m ass lesion on the angiogram phase im ages. The ventricl es, sulci, and cis terns are normal i n configuration. G ray-white matter d ifferentiation is preserved. No extr a-axial fluid cookie ection is seen. Thoracic aorta: Vi sualized portions of the thoracic ao rta are normal in caliber. The aorti c arch demonstrate s 4-vessel variant anatomy. The left vertebral artery arises distracted from the arch. R ight carotid arter ial system: The ri ght common carotid artery is widely patent, as are the right internal an d external carotid arteries. There i s tortuosity of th e distal internal carotid artery. Left carotid arter ial system: The le ft common carotid artery is widely p atent, as are the left internal and external carotid a rteries. There is tortuosity of the distal internal ca rotid artery. Ve rtebral arteries: The vertebral sunil stephanie are widely pa tent bilaterally a nd codominant in t he neck. Subclav christy arteries: Wide ly patent bilatera lly. Intracrania l vasculature: The re is origin of the left poste rior cerebral sunil ry. A large substation superintendent ior communicating artery seen on the right. The manager internship al carotid arterie s are patent at th e skull base, as a re the anterior an d middle cerebral arteries bilateral ly. The vertebroba silar system and p osterior cerebral arteries are dimin utive but patent. The right vertebra l artery is domina nt. The right P1 s egment is diminuti ve. There is no an eurysm, high-grade stenosis, or foca l vessel cut off s een throughout the intracranial circ ulation. Jugular veins: Patent cassi aterally. Dural sinuses: Patent. Lung apices: Part ially visualized u pper lobe lung par enchyma appears cl ear. Soft tissue s: The visualized pharyngeal soft ti ssues are normal i n appearance notin g angiographic pha se technique. The oropharyngeal airw ay appears widely patent. The saliva ry and thyroid gla nds are normal in appearance. No cer vical lymphadenopa thy is seen. Ske letal structures: The calvarium appe ars intact. The ce rvical spine is wi thin normal limits . No lytic or shad tic lesion is seen . Sinuses and ma stoids: There is t race mucosal thick ening in the right maxillary antrum. The remaining par anasal sinuses are clear. The mastoi d air cells are we ll pneumatized. IMPRESSION: 1 . There is no hemo rrhage, mass effec t, or evidence of acute territorial ischemia by CT cri teria. 2. Unrema rkable CT angiogra m of the brain. 3. Unremarkable CT angiogram of the neck. ACT 11 2: Negative or not required by law. Electronic ally signed by: Lucas Sarabia M.D. 04/03/2022 9:01 PM Head CTA 20:[address] OF THE BRAIN; CT ANGIOGRAM OF T HE BRAIN; CT ANGIO GRAM OF THE NECK CLINICAL HISTORY: Headache. COMP [place] STUDY: CT scan of the brain dated 01/26/2021. C T angiogram of the head and neck kellen ed 09/12/2020. TE CHNIQUE: Unenhance d axial CT of the brain was performe d. Subsequent, fol lowing the IV admi nistration of 120 of Optiray 300, CT angiogram of the head and neck was performed from the aortic arch to th e vertex. Images a re reviewed in the axial, sagittal, and coronal planes . 3-D MIPS images are created and as sessed. IV contras t was administered without complicat ion. All measureme nts were calculate d based on NASCET criteria. A dose lowering technique was utilized adhe ring to the princi ples of ALARA. C T DOSE: 1621.39 mG y.cm FINDINGS: Brain parenchyma: The brain parench yma is normal in a ppearance. There i s no hemorrhage, m ass effect, or ty dence of acute ter ritorial ischemia by CT criteria. Th ere is no evidence of enhancing mass lesion on the ang iogram phase image s. The ventricles, sulci, and cister ns are normal in c onfiguration. Lucas -white matter diff erentiation is pre served. No extra-a xial fluid collect ion is seen. Tho racic aorta: Visua lized portions of the thoracic aorta are normal in phillip iber. The aortic a rch demonstrates 4 -vessel variant an atomy. The left ve rtebral artery penny ses distracted fro m the arch. Righ t carotid arterial system: The right common carotid ar jason is widely pat ent, as are the ri ght internal and e xternal carotid ar teries. There is t ortuosity of the d istal internal car otid artery. Lef t carotid arterial system: The left common carotid art laurence is widely garza nt, as are the lef t internal and ext ernal carotid sunil stephanie. There is tor tuosity of the dis leo internal carot id artery. Verte bral arteries: The vertebral arterie s are widely paten t bilaterally and codominant in the neck. Subclavian arteries: Widely patent bilaterally . Intracranial v asculature: There is origin of the left posterio r cerebral artery. A large posterior communicating art laurence seen on the ri ght. The internal carotid arteries a re patent at the s kull base, as are the anterior and m iddle cerebral art eries bilaterally. The vertebrobasil ar system and post erior cerebral art eries are diminuti ve but patent. The right vertebral a rtery is dominant. The right P1 segm ent is diminutive. There is no aneur ysm, high-grade st enosis, or focal v essel cut off seen throughout the in tracranial circula tion. Jugular ve ins: Patent bilate rally. Dural sin uses: Patent. Chelsea ng apices: Partial ly visualized uppe r lobe lung parenc hyma appears clear . Soft tissues: The visualized pha ryngeal soft tissu es are normal in a ppearance noting a ngiographic phase technique. The param pharyngeal airway appears widely pat ent. The salivary and thyroid glands are normal in cielo earance. No cervic al lymphadenopathy is seen. Skelet al structures: The calvarium appears intact. The cervi phillip spine is withi n normal limits. N o lytic or blastic lesion is seen. Sinuses and masto ids: There is trac e mucosal thickeni ng in the right ma xillary antrum. Th e remaining parana marilynn sinuses are cl ear. The mastoid a ir cells are well pneumatized. I MPRESSION: 1. T here is no hemorrh age, mass effect, or evidence of acu te territorial isc hemia by CT criter ia. 2. Unremarka ble CT angiogram o f the brain. 3. Unremarkable CT an giogram of the nec k. ACT 112: Negative or not re quired by law. Electronicall y signed by: Rakesh Sarabia M.D. 03/17 9:01 PM N nicko CTA 04/03/22 20:37 UNENHANCED C T OF THE BRAIN; CT ANGIOGRAM OF THE BRAIN; CT ANGIOGRA M OF THE NECK CL INICAL HISTORY: He adache. COMPARI SON STUDY: CT sca n of the brain kellen ed 01/26/2021. CT a ngiogram of the he ad and neck dated 09/12/2020. TECHN IQUE: Unenhanced a xial CT of the bra in was performed. Subsequent, follow ing the IV adminis tration of 120 of Optiray 300, CT an giogram of the hea d and neck was per formed from the ao rtic arch to the v ertex. Images are reviewed in the ax ial, sagittal, and coronal planes. 3 -D MIPS images are created and asses sed. IV contrast w as administered wi thout complication . All measurements were calculated b ased on NASCET cri teria. A dose low ering technique wa s utilized adherin g to the principle s of KELI. CT D OSE: 1621.39 mGy.c m FINDINGS: Br ain parenchyma: Th e brain parenchyma is normal in appe arance. There is n o hemorrhage, mass effect, or eviden ce of acute territ orial ischemia by CT criteria. There is no evidence of enhancing mass le abraham on the angiog zamzam phase images. The ventricles, magdaleno lci, and cisterns are normal in conf iguration. Lucas-wh ite matter differe ntiation is preser gregor. No extra-axia l fluid collection is seen. Thorac ic aorta: Visualiz ed portions of the thoracic aorta ar e normal in calibe r. The aortic arch demonstrates 4-ve ssel variant anato my. The left verte bral artery arises distracted from t he arch. Right c arotid arterial sy stem: The right co mmon carotid arter y is widely patent , as are the right internal and exte rnal carotid arter ies. There is tort uosity of the dist al internal caroti d artery. Left c arotid arterial sy stem: The left com mon carotid artery is widely patent, as are the left i nternal and engineer automated equipment al carotid arterie s. There is tortuo sity of the distal internal carotid artery. Vertebra l arteries: The ve rtebral arteries a re widely patent b ilaterally and cod ominant in the nec k. Subclavian ar teries: Widely pat ent bilaterally. Intracranial vasc ulature: There is origin of th e left posterior c erebral artery. A large posterior co mmunicating artery seen on the right . The internal car otid arteries are patent at the skul l base, as are the anterior and midd le cerebral arteri es bilaterally. Th e vertebrobasilar system and posteri or cerebral arteri es are diminutive but patent. The ri ght vertebral sunil ry is dominant. Th e right P1 segment is diminutive. Th ere is no aneurysm , high-grade steno sis, or focal vess el cut off seen th roughout the intra cranial circulatio n. Jugular veins : Patent bilateral ly. Dural sinuse s: Patent. Lung apices: Partially visualized upper l obe lung parenchym a appears clear. Soft tissues: The visualized pharyn geal soft tissues are normal in appe arance noting lester ographic phase yinka hnique. The oropha ryngeal airway cielo ears widely patent . The salivary and thyroid glands ar e normal in appear ance. No cervical lymphadenopathy is seen. Skeletal structures: The ca lvarium appears in tact. The cervical spine is within n ormal limits. No l ytic or blastic le abraham is seen. Si nuses and mastoids : There is trace m ucosal thickening in the right maxil magalis antrum. The r emaining paranasal sinuses are clear . The mastoid air cells are well pne umatized. IMPR ESSION: 1. Ther e is no hemorrhage , mass effect, or evidence of acute territorial ischem ia by CT criteria. 2. Unremarkable CT angiogram of t he brain. 3. Unr emarkable CT angio gram of the neck. ACT 112: Neg ative or not requi red by law. Electronically s igned by: Rakesh villalta M.D. 022 9:01 PM Brai n MRI 04/04/22 03 :51 MRI OF THE BRA IN COMBO CLINICA L HISTORY: Headach e. Stroke like sym ptoms. COMPARISO N STUDY: CT of the brain dated 2021. MRI of the b rain dated 09/05/19 21. TECHNIQUE: M RI of the brain wa s performed utiliz ing various T1 and T2-weighted seque nces in the axial, sagittal, and cor onal planes. Contr ast-enhanced seque nces were acquired following the adm inistration of 12 cc of Gadavist. FINDINGS: Brain parenchyma: The br ain parenchyma is normal in appearan ce. A developmenta l venous anomaly i s incidentally not ed in the right fr ontal lobe. There is no hemorrhage o r mass effect. The re is no restricte d diffusion to sug gest acute ischemi a. No enhancing ma ss lesion is ident ified on the postc ontrast images. Gr ay-white matter di fferentiation is p reserved. No extra -axial fluid colle ction is seen. The cerebellar tonsil s are normal in co nfiguration. Shemar tricles, sulci, an d cisterns: Normal in configuration. Pituitary and s maurice: Unremarkable . Intracranial v asculature: Normal flow voids are ma intained at the sk ull base. Orbits : The bony orbits are grossly intact . Orbital contents are normal in cielo earance. Sinuses and mastoids: Gibson ar. Calvarium: U nremarkable. Cer vical cord: Partia lly visualized cer vical spinal cord is normal in morph ology and signal i ntensity. IMPR ESSION: No acute i ntracranial abnorm ality. ACT 1 12: Negative or no t required by law. Electroni jessica signed by: Rakesh Sarabia M.D. 04/04/2022 10:21 A M Urine Appearan ce Urine pH Ur Specific Gravit y Urine Protein Urine Glucose (UA) Urine Ketones Urine Blood Urine Nitrite Urine Bilirubin Urine Urobilinogen Ur Leukocyte Estela ase Urine WBC (Auto) Urine RBC (Auto) U Hyaline Cast (Au to) U Epithel Cells (A uto) Urine Bacteria (Au to) Ur Renal Epithelia l Cell SARS-CoV-2, RNA, N AAT Blood Type A Negative Antibody Screen NEGATIVE 04/03/22 04/03/22 04/03/22 21:09 21:09 21:09 WBC RBC Hgb POC Hgb Hct POC Hct MCV MCH MCHC RDW Std Deviation RDW Coeff of Carmen Plt Count MPV Immature Gran % (A uto) Neut % (Auto) Lymph % (Auto) Rankin % (Auto) Eos % (Auto) Baso % (Auto) Neut # (Auto) Lymph # (Auto) Rankin # (Auto) Eos # (Auto) Baso # (Auto) Immature Gran # (A uto) PT 10.7 INR 1.0 APTT 23.5 PTT Ratio 0.9 POC Sodium Sodium 136 POC Potassium Potassium 3.2 L POC Chloride Chloride 104 Carbon Dioxide 18 L POC Total CO2 Anion Gap 14 H POC Anion Gap POC BUN BUN 2 L Creatinine 0.52 L POC Creatinine Est Cr Clr Drug Do sing 203.1 Est GFR ( A quinten) 144.5 Est GFR (Non-Af Am er) 124.7 BUN/Creatinine Rat io 3.8 L Glucose 152 H POC Glucose POC Glucose (other ) Estimat Average Gl ucose Hemoglobin A1c Calcium 9.0 POC Ioniz Calcium Yany Magnesium 2.0 Total Bilirubin 0.5 AST 94 H ALT 68 H Alkaline Phosphata se 87 Troponin I High Se ns 8.7 Total Protein 7.6 Albumin 4.4 Globulin 3.2 Albumin/Globulin R atio 1.4 Triglycerides Cholesterol LDL Cholesterol, C alc VLDL Cholesterol, Calc HDL Cholesterol Cholesterol/HDL Ra cari HCG, Qual Negative Urine Color Urine Appearance Urine pH Ur Specific Gravit y Urine Protein Urine Glucose (UA) Urine Ketones Urine Blood Urine Nitrite Urine Bilirubin Urine Urobilinogen Ur Leukocyte Estela ase Urine WBC (Auto) Urine RBC (Auto) U Hyaline Cast (Au to) U Epithel Cells (A uto) Urine Bacteria (Au to) Ur Renal Epithelia l Cell SARS-CoV-2, RNA, N AAT Blood Type Antibody Screen 04/03/22 04/03/22 04/04/22 21:31 22:20 02:17 WBC RBC Hgb POC Hgb 16.3 H Hct POC Hct 48 H MCV MCH MCHC RDW Std Deviation RDW Coeff of Carmen Plt Count MPV Immature Gran % (A uto) Neut % (Auto) Lymph % (Auto) Rankin % (Auto) Eos % (Auto) Baso % (Auto) Neut # (Auto) Lymph # (Auto) Rankin # (Auto) Eos # (Auto) Baso # (Auto) Immature Gran # (A uto) PT INR APTT PTT Ratio POC Sodium 141 Sodium POC Potassium 3.4 Potassium POC Chloride 105 Chloride Carbon Dioxide POC Total CO2 21 L Anion Gap POC Anion Gap 20.0 POC BUN < 3 L BUN Creatinine POC Creatinine 0.7 Est Cr Clr Drug Do sing Est GFR ( A quinten) Est GFR (Non-Af Am er) BUN/Creatinine Rat io Glucose POC Glucose POC Glucose (other ) 168 H Estimat Average Gl ucose Hemoglobin A1c Calcium POC Ioniz Calcium Yany 1.13 Magnesium Total Bilirubin AST ALT Alkaline Phosphata se Troponin I High Se ns Total Protein Albumin Globulin Albumin/Globulin R atio Triglycerides Cholesterol LDL Cholesterol, C alc VLDL Cholesterol, Calc HDL Cholesterol Cholesterol/HDL Ra cari HCG, Qual Urine Color Dark Yellow Urine Appearance Cloudy A Urine pH 6.0 Ur Specific Gravit y > 1.045 H Urine Protein 2+ H Urine Glucose (UA) Negative Urine Ketones Trace H Urine Blood Negative Urine Nitrite Negative Urine Bilirubin 1+ H Urine Urobilinogen Negative Ur Leukocyte Estela ase Negative Urine WBC (Auto) 10-30 H Urine RBC (Auto) 0-4 U Hyaline Cast (Au to) 0 U Epithel Cells (A uto) >30 H Urine Bacteria (Au to) 2+ H Ur Renal Epithelia l Cell Not Reportable SARS-CoV-2, RNA, N AAT NEGATIVE Blood Type Antibody Screen 04/04/22 04/04/22 04/04/22 06:21 06:21 06:21 WBC 9.62 RBC 4.57 Hgb 15.0 POC Hgb Hct 44.6 POC Hct MCV 97.6 MCH 32.8 MCHC 33.6 RDW Std Deviation 53.6 H RDW Coeff of Carmen 14.9 H Plt Count 312 MPV 9.9 Immature Gran % (A uto) 1.7 Neut % (Auto) 48.2 Lymph % (Auto) 32.0 Rankin % (Auto) 13.5 Eos % (Auto) 3.7 Baso % (Auto) 0.9 Neut # (Auto) 4.63 Lymph # (Auto) 3.08 Rankin # (Auto) 1.30 H Eos # (Auto) 0.36 Baso # (Auto) 0.09 Immature Gran # (A uto) 0.16 H PT INR APTT PTT Ratio POC Sodium Sodium 135 L POC Potassium Potassium 3.9 D POC Chloride Chloride 102 Carbon Dioxide 20 L POC Total CO2 Anion Gap 13 H POC Anion Gap POC BUN BUN 3 L Creatinine 0.70 POC Creatinine Est Cr Clr Drug Do sing 149.1 Est GFR ( A quinten) 131.0 Est GFR (Non-Af Am er) 113.0 BUN/Creatinine Rat io 4.3 L Glucose 165 H POC Glucose POC Glucose (other ) Estimat Average Gl ucose 111 Hemoglobin A1c 5.5 Calcium 8.7 POC Ioniz Calcium Yany Magnesium Total Bilirubin AST ALT Alkaline Phosphata se Troponin I High Se ns Total Protein Albumin Globulin Albumin/Globulin R atio Triglycerides 594 H Cholesterol 216 H LDL Cholesterol, C alc TNP VLDL Cholesterol, Calc TNP HDL Cholesterol 27 Cholesterol/HDL Ra cari 8.0 H HCG, Qual Urine Color Urine Appearance Urine pH Ur Specific Gravit y Urine Protein Urine Glucose (UA) Urine Ketones Urine Blood Urine Nitrite Urine Bilirubin Urine Urobilinogen Ur Leukocyte Estela ase Urine WBC (Auto) Urine RBC (Auto) U Hyaline Cast (Au to) U Epithel Cells (A uto) Urine Bacteria (Au to) Ur Renal Epithelia l Cell SARS-CoV-2, RNA, N AAT Blood Type Antibody Screen Constitutional: WD/WN, vitals as above + overweight Eyes: PERRL, conjunctivae normal, anicteric sclerae ENMT: external ear and nose normal, oropharynx normal Mallampati Class: III Neck: trachea midline, no thyromegaly (No carotid bruit) Respiratory: normal respiratory effort, lungs clear to auscultation Cardiovascular: Rate/Rhythm: regular rate (with occasional PVCs) and regular rhythm (occasional skipped beats) Vessels: no carotid bruit Chest (Breasts): Chest: normal inspection of chest Gastrointestinal (Abdomen): normal bowel sounds, soft, nontender, no hepatosplenomegaly Musculoskeletal: no cyanosis or clubbing, extremities motor strength 5/5 Extremities: extremities normal to inspection Gait: normal gait Skin: no rashes, warm and dry Neurologic: patellar DTR's 2+ bilat, sensation intact (except right facial slight numbness/paresthesia. Coordination is normal.) and PERRL, EOMI, accommodation nl, no face palsy, no dysarthria CN's II-XI intact bilaterally Speech / Cognition: normal speech, no anomia, no expressive aphasia, no receptive aphasia and normal cognition Motor/Sensory: no tremor (Normal motor strength. Slight right facial dysesthesia/numbness.) and no pronator drift Cranial Nerves: sense of smell intact, PERRL, EOM intact bilaterally, normal facial strength, tongue midline, normal gag reflex, no nystagmus and symmetric palate elevation Coordination: normal [id number] test Funduscopic ex amination with bilateral normal looking optic discs. Psychiatric: A+Ox3, euthymic affect Suicidal Thoughts: denies suicidal thoughts Insight: good insight Judgement: good judgement Lymphatic: no cervical or axillary lymphadenopathy Results & Data ([facility]) Vital Signs (Past 12 Hours) Vital Signs Temp Pulse Pulse Resp BP BP BP 04/04/22 08:00 04/04/22 10:41 36.4 C L 97 H 22 164/112 H 04/04/22 10:39 164/112 H 04/04/22 07:55 36.6 C 100 H 22 170/108 H 04/04/22 07:49 104 H 04/04/22 03:49 105 H 04/04/22 03:53 37 C 101 H 18 115/110 H 04/04/22 03:40 04/04/22 03:20 112 H 16 04/04/22 03:10 98 H 22 04/04/22 03:01 100 H 17 04/04/22 03:01 147/113 H 04/04/22 03:00 103 H 19 04/04/22 02:50 96 H 19 04/04/22 02:40 99 H 17 04/04/22 02:30 98 H 20 136/96 04/04/22 02:20 103 H 22 04/04/22 02:14 04/04/22 02:00 113 H 23 04/04/22 02:00 159/116 H 04/04/22 01:50 110 H 18 04/04/22 01:40 101 H 15 04/04/22 01:30 112 H 23 04/04/22 01:20 112 H 20 04/04/22 01:13 106 H 24 04/04/22 01:13 147/88 H 04/04/22 01:10 04/04/22 01:00 104 H 21 04/04/22 00:50 109 H 22 04/04/22 01:00 111 H 147/88 H 04/04/22 00:40 120 H 18 04/04/22 00:30 110 H 17 04/04/22 00:20 110 H 19 04/04/22 00:10 104 H 21 04/04/22 00:00 107 H 23 04/03/22 23:50 100 H 19 Pulse Ox O2 Del Method 04/04/22 08:00 Room Air 04/04/22 10:41 95 Room Air 04/04/22 10:39 04/04/22 07:55 94 Room Air 04/04/22 07:49 04/04/22 03:49 04/04/22 03:53 95 Room Air 04/04/22 03:40 Room Air 04/04/22 03:20 97 04/04/22 03:10 93 04/04/22 03:01 93 04/04/22 03:01 04/04/22 03:00 95 04/04/22 02:50 94 04/04/22 02:40 95 04/04/22 02:30 94 04/04/22 02:20 92 04/04/22 02:14 91 04/04/22 02:00 95 04/04/22 02:00 04/04/22 01:50 94 04/04/22 01:40 94 04/04/22 01:30 95 04/04/22 01:20 90 04/04/22 01:13 93 04/04/22 01:13 04/04/22 01:10 92 04/04/22 01:00 95 04/04/22 00:50 92 04/04/22 01:00 98 04/04/22 00:40 94 04/04/22 00:30 94 04/04/22 00:20 94 04/04/22 00:10 95 04/04/22 00:00 94 04/03/22 23:50 95 Diagnostic Findings Chest X-Ray 04/03/22 20:37 SINGLE VIEW CHEST CLINICAL HISTORY: Strokelike symptoms. FINDINGS: An AP, portable, upright chest radiograph is compared to study dated 06/25/2021. The examination is degraded by portable technique and patient rotation. The cardiomediastinal silhouette is unremarkable. There is elevation of the right hemidiaphragm with mild atelectasis. The lungs and pleural spaces are otherwise clear. No pneumothorax is seen. The bony thorax is grossly intact. IMPRESSION: No active disease in the chest. ACT 112: Negative or not required by law. Electronically signed by: Rakesh Sarabia M.D. 04/03/2022 9:[address] 04/03/22 20:[address] OF THE BRAIN; CT ANGIOGRAM OF THE BRAIN; CT ANGIOGRAM OF THE NECK CLINICAL HISTORY: Headache. COMPARISON STUDY: CT scan of the brain dated 01/26/2021. CT angiogram of the head and neck dated 09/12/2020. TECHNIQUE: Unenhanced axial CT of the brain was performed. Subsequent, following the IV administration of 120 of Optiray 300, CT angiogram of the head and neck was performed from the aortic arch to the vertex. Images are reviewed in the axial, sagittal, and coronal planes. 3-D MIPS images are created and assessed. IV contrast was administered without complication. All measurements were calculated based on NASCET criteria. A dose lowering technique was utilized adhering to the principles of ALARA. CT DOSE: 1621.39 mGy.cm FINDINGS: Brain parenchyma: The brain parenchyma is normal in appearance. There is no hemorrhage, mass effect, or evidence of acute territorial ischemia by CT criteria. There is no evidence of enhancing mass lesion on the angiogram phase images. The ventricles, sulci, and cisterns are normal in configuration. Lucas- white matter differentiation is preserved. No extra-axial fluid collection is seen. Thoracic aorta: Visualized portions of the thoracic aorta are normal in caliber. The aortic arch demonstrates 4-vessel variant anatomy. The left vertebral artery arises distracted from the arch. Right carotid arterial system: The right common carotid artery is widely patent, as are the right internal and external carotid arteries. There is tortuosity of the distal internal carotid artery. Left carotid arterial system: The left common carotid artery is widely patent, as are the left internal and external carotid arteries. There is tortuosity of the distal internal carotid artery. Vertebral arteries: The vertebral arteries are widely patent bilaterally and codominant in the neck. Subclavian arteries: Widely patent bilaterally. Intracranial vasculature: There is origin of the left posterior cerebral artery. A large posterior communicating artery seen on the right. The internal carotid arteries are patent at the skull base, as are the anterior and middle cerebral arteries bilaterally. The vertebrobasilar system and posterior cerebral arteries are diminutive but patent. The right vertebral artery is dominant. The right P1 segment is diminutive. There is no aneurysm, high-grade stenosis, or focal vessel cut off seen throughout the intracranial circulation. Jugular veins: Patent bilaterally. Dural sinuses: Patent. Lung apices: Partially visualized upper lobe lung parenchyma appears clear. Soft tissues: The visualized pharyngeal soft tissues are normal in appearance noting angiographic phase technique. The oropharyngeal airway appears widely patent. The salivary and thyroid glands are normal in appearance. No cervical lymphadenopathy is seen. Skeletal structures: The calvarium appears intact. The cervical spine is within normal limits. No lytic or blastic lesion is seen. Sinuses and mastoids: There is trace mucosal thickening in the right maxillary antrum. The remaining paranasal sinuses are clear. The mastoid air cells are well pneumatized. IMPRESSION: 1. There is no hemorrhage, mass effect, or evidence of acute territorial ischemia by CT criteria. 2. Unremarkable CT angiogram of the brain. 3. Unremarkable CT angiogram of the neck. ACT 112: Negative or not required by law. Electronically signed by: Rakesh Sarabia M.D. 04/03/2022 9:01 PM Head CTA 04/03/22 20:[address] OF THE BRAIN; CT ANGIOGRAM OF THE BRAIN; CT ANGIOGRAM OF THE NECK CLINICAL HISTORY: Headache. COMPARISON STUDY: CT scan of the brain dated 01/26/2021. CT angiogram of the head and neck dated 09/12/2020. TECHNIQUE: Unenhanced axial CT of the brain was performed. Subsequent, following the IV administration of 120 of Optiray 300, CT angiogram of the head and neck was performed from the aortic arch to the vertex. Images are reviewed in the axial, sagittal, and coronal planes. 3-D MIPS images are created and assessed. IV contrast was administered without complication. All measurements were calculated based on NASCET criteria. A dose lowering technique was utilized adhering to the principles of ALARA. CT DOSE: 1621.39 mGy.cm FINDINGS: Brain parenchyma: The brain parenchyma is normal in appearance. There is no hemorrhage, mass effect, or evidence of acute territorial ischemia by CT criteria. There is no evidence of enhancing mass lesion on the angiogram phase images. The ventricles, sulci, and cisterns are normal in configuration. Lucas- white matter differentiation is preserved. No extra-axial fluid collection is seen. Thoracic aorta: Visualized portions of the thoracic aorta are normal in caliber. The aortic arch demonstrates 4-vessel variant anatomy. The left vertebral artery arises distracted from the arch. Right carotid arterial system: The right common carotid artery is widely patent, as are the right internal and external carotid arteries. There is tortuosity of the distal internal carotid artery. Left carotid arterial system: The left common carotid artery is widely patent, as are the left internal and external carotid arteries. There is tortuosity of the distal internal carotid artery. Vertebral arteries: The vertebral arteries are widely patent bilaterally and codominant in the neck. Subclavian arteries: Widely patent bilaterally. Intracranial vasculature: There is origin of the left posterior cerebral artery. A large posterior communicating artery seen on the right. The internal carotid arteries are patent at the skull base, as are the anterior and middle cerebral arteries bilaterally. The vertebrobasilar system and posterior cerebral arteries are diminutive but patent. The right vertebral artery is dominant. The right P1 segment is diminutive. There is no aneurysm, high-grade stenosis, or f ocal vessel cut off seen throughout the intracranial circulation. Jugular veins: Patent bilaterally. Dural sinuses: Patent. Lung apices: Partially visualized upper lobe lung parenchyma appears clear. Soft tissues: The visualized pharyngeal soft tissues are normal in appearance noting angiographic phase technique. The oropharyngeal airway appears widely patent. The salivary and thyroid glands are normal in appearance. No cervical lymphadenopathy is seen. Skeletal structures: The calvarium appears intact. The cervical spine is within normal limits. No lytic or blastic lesion is seen. Sinuses and mastoids: There is trace mucosal thickening in the right maxillary antrum. The remaining paranasal sinuses are clear. The mastoid air cells are well pneumatized. IMPRESSION: 1. There is no hemorrhage, mass effect, or evidence of acute territorial ischemia by CT criteria. 2. Unremarkable CT angiogram of the brain. 3. Unremarkable CT angiogram of the neck. ACT 112: Negative or not required by law. Electronically signed by: Rakesh Sarabia M.D. 04/03/2022 9:01 PM Neck CTA 04/03/22 20:[address] OF THE BRAIN; CT ANGIOGRAM OF THE BRAIN; CT ANGIOGRAM OF THE NECK CLINICAL HISTORY: Headache. COMPARISON STUDY: CT scan of the brain dated 01/26/2021. CT angiogram of the head and neck dated 09/12/2020. TECHNIQUE: Unenhanced axial CT of the brain was performed. Subsequent, following the IV administration of 120 of Optiray 300, CT angiogram of the head and neck was performed from the aortic arch to the vertex. Images are reviewed in the axial, sagittal, and coronal planes. 3-D MIPS images are created and assessed. IV contrast was administered without complication. All measurements were calculated based on NASCET criteria. A dose lowering technique was utilized adhering to the principles of ALARA. CT DOSE: 1621.39 mGy.cm FINDINGS: Brain parenchyma: The brain parenchyma is normal in appearance. There is no hemorrhage, mass effect, or evidence of acute territorial ischemia by CT criteria. There is no evidence of enhancing mass lesion on the angiogram phase images. The ventricles, sulci, and cisterns are normal in configuration. Lucas- white matter differentiation is preserved. No extra-axial fluid collection is seen. Thoracic aorta: Visualized portions of the thoracic aorta are normal in caliber. The aortic arch demonstrates 4-vessel variant anatomy. The left vertebral artery arises distracted from the arch. Right carotid arterial system: The right common carotid artery is widely patent, as are the right internal and external carotid arteries. There is tortuosity of the distal internal carotid artery. Left carotid arterial system: The left common carotid artery is widely patent, as are the left internal and external carotid arteries. There is tortuosity of the distal internal carotid artery. Vertebral arteries: The vertebral arteries are widely patent bilaterally and codominant in the neck. Subclavian arteries: Widely patent bilaterally. Intracranial vasculature: There is origin of the left posterior cerebral artery. A large posterior communicating artery seen on the right. The internal carotid arteries are patent at the skull base, as are the anterior and middle cerebral arteries bilaterally. The vertebrobasilar system and posterior cerebral arteries are diminutive but patent. The right vertebral artery is dominant. The right P1 segment is diminutive. There is no aneurysm, high-grade stenosis, or focal vessel cut off seen throughout the intracranial circulation. Jugular veins: Patent bilaterally. Dural sinuses: Patent. Lung apices: Partially visualized upper lobe lung parenchyma appears clear. Soft tissues: The visualized pharyngeal soft tissues are normal in appearance noting angiographic phase technique. The oropharyngeal airway appears widely patent. The salivary and thyroid glands are normal in appearance. No cervical lymphadenopathy is seen. Skeletal structures: The calvarium appears intact. The cervical spine is within normal limits. No lytic or blastic lesion is seen. Sinuses and mastoids: There is trace mucosal thickening in the right maxillary antrum. The remaining paranasal sinuses are clear. The mastoid air cells are well pneumatized. IMPRESSION: 1. There is no hemorrhage, mass effect, or evidence of acute territorial i schemia by CT criteria. 2. Unremarkable CT angiogram of the brain. 3. Unremarkable CT angiogram of the neck. ACT 112: Negative or not required by law. Electronically signed by: Rakesh Sarabia M.D. 04/03/2022 9:01 PM Brain MRI 04/04/22 03:51 MRI OF THE BRAIN COMBO CLINICAL HISTORY: Headache. Stroke like symptoms. COMPARISON STUDY: CT of the brain dated 04/03/2022. MRI of the brain dated 09/05/2020. TECHNIQUE: MRI of the brain was performed utilizing various T1 and T2-weighted sequences in the axial, sagittal, and coronal planes. Contrast-enhanced sequences were acquired following the administration of 12 cc of Gadavist. FINDINGS: Brain parenchyma: The brain parenchyma is normal in appearance. 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 There is no hemorrhage or mass effect. There is no restricted diffusion to suggest acute ischemia. No enhancing mass lesion is identified on the postcontrast images. Lucas-white matter differentiation is preserved. No extra-axial fluid collection is seen. The cerebellar tonsils are normal in configuration. Ventricles, sulci, and cisterns: Normal in configuration. Pituitary and sella: Unremarkable. Intracranial vasculature: Normal flow voids are maintained at the skull base. Orbits: The bony orbits are grossly intact. Orbital contents are normal in appea von. Sinuses and mastoids: Clear. Calvarium: Unremarkable. Cervical cord: Partially visualized cervical spinal cord is normal in morphology and signal intensity. IMPRESSION: No acute intracranial abnormality. ACT 112: Negative or not required by law. Electronically signed by: Rakesh Sarabia M.D. 04/04/2022 10:21 AM (1) Headache Headache chronicity pattern: acute headache Headache type: unspecified Intractability: intractable Qualified Code(s): R51.9 - Headache, unspecified
[2022-04-04] MEDS: SPIRONOLACTONE 25 MG TAB PO SCH (12:55)
[2022-04-04] MEDS: lisinopril 20 MG TAB PO SCH (12:56)
[2022-04-04] MEDS: NIACIN 500 MG TAB PO SCH ×2 (12:56→16:53)
[2022-04-04] MEDS: carvediloL 12.5 MG TAB PO SCH ×2 (12:57→20:46)
[2022-04-04] MEDS: NICOTINE 21 MG/24 HR TDSY TD SCH (15:08)
--- NOTE | 2022-04-04 18:06 | Hospitalist Progress Note ---
Date of Service April 04, 2022 Assessment & Plan Admission and Anticipated Discharge Date Admission Date: April 04, 2022 Supervising Physician Co-Signing Physician Notes Note in error Subjective Symptoms resolved. Blood pressure elevated however currently it is lower as well. Seen by cardiology recommending monitoring overnight. Cleared by neurology for discharge. Denies active chest pain shortness of breath nausea vomiting Review of Systems Review of Systems: All systems reviewed & are unremarkable except as noted in HPI & below Physical Exam Physical Exam: Constitutional:WD/WN, vitals as above Neck: trachea midline, no thyromegaly Respiratory: normal respiratory effort, lungs clear to aus cultationAuscultation:no rhonchi and no wheezes Cardiovascular:RRR, no murmur, no edemaHeart Sounds:no murmur Gastrointestinal (Abdomen):normal bowel sounds, soft, nontender, no hepatosplenomegaly Musculoskeletal:no cyanosis or clubbing, extremities motor strength 5/5 Skin: no rashes, warm and dry Neurologic: AA+Ox3, euthymic affect Results & Data Results & Data ([facility]) Vital Signs (Past 12 Hours) Vital Signs Temp Pulse Pulse Resp BP BP Pulse Ox 04/04/22 16:13 85 04/04/22 15:21 36.6 C 92 H 18 127/89 96 04/04/22 08:00 04/04/22 10:41 36.4 C L 97 H 22 164/112 H 95 04/04/22 10:39 164/112 H 04/04/22 07:55 36.6 C 100 H 22 170/108 H 94 04/04/22 07:49 104 H O2 Del Method 04/04/22 16:13 04/04/22 15:21 Room Air 04/04/22 08:00 Room Air 04/04/22 10:41 Room Air 04/04/22 10:39 04/04/22 07:55 Room Air 04/04/22 07:49 Laboratory Results Short CBC 04/03/22 04/04/22 Range/Units 21:09 06:21 WBC 9.23 9.62 (4.8-10.8) K/ul Hgb 15.6 15.0 (12.0-16.0) g/dl Hct 46.1 H 44.6 (34.1-44.9) % Plt Count 314 312 (130-400) K/uL BMP 04/03/22 04/04/22 21:09 06:21 Sodium 136 135 L Potassium 3.2 L 3.9 D Chloride 104 102 Carbon Dioxide 18 L 20 L BUN 2 L 3 L Creatinine 0.52 L 0.70 Glucose 152 H 165 H Calcium 9.0 8.7 Liver Function 04/03/22 Range/Units 21:09 Total Bilirubin 0.5 (0.2-1.0) mg/dl AST 94 H (13-39) U/L ALT 68 H (7-52) U/L Alkaline Phosphatase 87 (34-104) U/L Albumin 4.4 (3.4-5.0) gm/dl Urine 04/04/22 Range/Units 02:17 Urine Color Dark Yellow Urine Appearance Cloudy A (Clear) Urine pH 6.0 (4.5-7.5) Ur Specific [place] > 1.045 H (1.000-1.030) Urine Protein 2+ H (Negative) Urine Glucose (UA) Negative (Negative) Diagnostic Findings Brain MRI 04/04/22 03:51 MRI OF THE BRAIN COMBO CLINICAL HISTORY: Headache. Stroke like symptoms. COMPARISON STUDY: CT of the brain dated 04/03/2022. MRI of the brain dated 09/05/2020. TECHNIQUE: MRI of the brain was performed utilizing various T1 and T2-weighted sequences in the axial, sagittal, and coronal planes. Contrast-enhanced sequences were acquired following the administration of 12 cc of Gadavist. FINDINGS: Brain parenchyma: The brain parenchyma is normal in appearance. 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 There is no hemorrhage or mass effect. There is no restricted diffusion to suggest acute ischemia. No enhancing mass lesion is identified on the postcontrast images. Lucas-white matter differentiation is preserved. No extra-axial fluid collection is seen. The cerebellar tonsils are normal in configuration. Ventricles, sulci, and cisterns: Normal in configuration. Pituitary and sella: Unremarkable. Intracranial vasculature: Normal flow voids are maintained at the skull base. Orbits: The bony orbits are grossly intact. Orbital contents are normal in appearance. Sinuses and mastoids: Clear. Calvarium: Unremarkable. Cervical cord: Partially visualized cervical spinal cord is normal in morphology and signal intensity. IMPRESSION: No acute intracranial abnormality. ACT 112: Negative or not required by law. Electronically signed by: Rakesh Sarabia M.D. 04/04/2022 10:21 AM
[2022-04-05] MEDS ORDERED: HYDROmorphone INJ 0.5 MG/0.5 ML SYR IV STA (00:04)
[2022-04-05] MEDS: HYDROmorphone INJ 0.5 MG/0.5 ML SYR IV PRN (03:59)
[2022-04-05] MEDS: clonazePAM 1 MG TAB PO PRN (04:46)
[2022-04-05] MEDS ORDERED: GABAPENTIN 100 MG CAP PO SCH (07:30)
[2022-04-05] MEDS ORDERED: BUTALBITAL/ACETAMIN/CAFFEINE TAB PO PRN (07:39)
[2022-04-05] MEDS: lisinopril 20 MG TAB PO SCH (07:52)
[2022-04-05] MEDS: carvediloL 12.5 MG TAB PO SCH (07:53)
[2022-04-05] MEDS: ASPIRIN 81 MG ECTAB PO SCH (08:07)
[2022-04-05] MEDS: amLODIPine BESYLATE 5 MG TAB PO SCH (08:08)
[2022-04-05] MEDS: SPIRONOLACTONE 25 MG TAB PO SCH (08:09)
[2022-04-05] MEDS: PANTOprazole 40 MG TAB PO SCH (08:09)
[2022-04-05] MEDS: NICOTINE 21 MG/24 HR TDSY TD SCH (08:09)
[2022-04-05 08:45] LABS: Basophils % (auto) 1.1 %; Eosinophils # (auto) 0.84 K/uL (0-0.50); Eosinophils % (auto) 8.9 %; Hematocrit (blood only) 43.2 % (34.1-44.9); Hemoglobin 14.8 g/dl (12.0-16.0); Immature Granulocytes # (auto) 0.09 K/uL (0.00-0.02); Lymphocytes # (auto) 3.28 K/uL (1.2-3.4); Lymphocytes % (auto) 34.9 %; Mean Corpuscular Hgb Conc 34.3 g/dL (32.0-36.0); Mean Corpuscular Volume 96.4 fL (80.0-100.0); Mean Platelet Volume 10.4 fL (9.4-12.3); Monocytes # (auto) 0.85 K/uL (0.24-0.82); Neutrophils # (auto) 4.25 K/uL (1.4-6.5); Neutrophils % (auto) 45.1 %; Platelet Count 281 K/uL (130-400); RDW Coefficient of Variation 14.3 % (11.5-14.5); RDW Standard Deviation 51.3 fL (36.4-46.3); Red Blood Count 4.48 M/uL (3.93-5.22); White Blood Count 9.41 K/ul (4.8-10.8)
[2022-04-05] MEDS ORDERED: hydroCHLOROthiazide 25 MG TAB PO SCH (09:00)
[2022-04-05 09:20] LABS: BUN Creatinine Ratio 8.9 (10-20); Calcium 9.3 mg/dl (8.5-10.1); Creatinine Clr Calc Pharmacy 188.3 ml/min; Est GFR (Non-African American) 121.7 ml/min; Potassium 3.6 mmol/L (3.5-5.1)
--- NOTE | 2022-04-05 11:02 | Cardiology Progress Note ---
Date of Service April 05, 2022 Assessment & Plan (1) Stroke-like symptoms: (2) Hypertensive urgency: (3) Palpitations: (4) Hypertensive heart disease: Plan Hypertensive urgency History of hypertension, hypertensive heart disease Secondary work-up negative in Symptoms improved and blood pressure improved on current medical regimen. Will need close clinical follow-up with PCP on discharge. Strong recommendations for sleep medicine evaluation. Tobacco and alcohol cessation Admission and Anticipated Discharge Date Admission Date: April 04, 2022 Subjective Patient awakened from sleep snoring very loudly with gasping Chart medications and telemetry reviewed. No arrhythmias noted. Blood pressure much improved. Patient denies focal neurologic complaints or headache Review of Systems Review of Systems: All systems reviewed & are unremarkable except as noted in Subjective Physical Exam Physical Exam: Patient's entire consultation was completed in the presence of baby nurse Manuela GONZALEZ General: A&Ox3. NAD. Elevated BMI HENT: Normocephalic. Atraumatic. Eyes: PER. Conjunctiva pink, sclera clear. Neck: No carotid bruits. No JVD. Heart: RRR, 96 bpm. No murmur appreciated. No rub. Lungs: Clear to auscultation. Abdomen: +BS. Soft. Nontender. No masses or organomegaly. Extremities: No clubbing, cyanosis, or edema. Limited neurological examination is without focal deficits. Pulses: radial=2/4, posterior tibial=2/4. Results & Data ([facility]) Vital Signs (Past 12 Hours) Vital Signs Temp Pulse Pulse Resp BP BP Pulse Ox 04/05/22 08:19 36.7 C 85 20 110/66 97 04/05/22 07:23 86 04/05/22 03:57 36.4 C L 83 18 139/84 97 04/04/22 23:32 36.5 C 96 H 16 120/87 96 04/04/22 23:24 79 O2 Del Method 04/05/22 08:19 Room Air 04/05/22 07:23 04/05/22 03:57 Room Air 04/04/22 23:32 Room Air 04/04/22 23:24 Laboratory Results Laboratory Results - last 24 hr 04/05/22 04/05/22 07:45 07:45 WBC 9.41 RBC 4.48 Hgb 14.8 Hct 43.2 MCV 96.4 MCH 33.0 MCHC 34.3 RDW Std Deviation 51.3 H RDW Coeff of Carmen 14.3 Plt Count 281 MPV 10.4 Immature Gran % (Auto) 1.0 Neut % (Auto) 45.1 Lymph % (Auto) 34.9 [place] % (Auto) 9.0 Eos % (Auto) 8.9 Baso % (Auto) 1.1 Neut # (Auto) 4.25 Lymph # (Auto) 3.28 [place] # (Auto) 0.85 H Eos # (Auto) 0.84 H Baso # (Auto) 0.10 Immature Gran # (Auto) 0.09 H Sodium 134 L Potassium 3.6 Chloride 101 Carbon Dioxide 25 Anion Gap 8 BUN 5 L Creatinine 0.56 L Est Cr Clr Drug Dosing 188.3 Est GFR ( Amer) 141.0 Est GFR (Non-Af Amer) 121.7 BUN/Creatinine Ratio 8.9 L Glucose 110 H Calcium 9.3
--- NOTE | 2022-04-05 11:12 | Discharge Summary ---
Date of Service April 05, 2022 Admission HPI Per Admitting Provider A 36-year-old female with past medical history significant for chronic hypokalemia, hypertensive urgency, history of hypertension, morbid obesity, opioid dependence in remission, history of seizure-like activity, infection of tooth, bipolar I disorder, tobacco abuse, generalized anxiety disorder, posttraumatic stress disorder, presents with stroke-like symptoms. The patient states that around 7 p.m. she felt numbness in the right side of the face and her speech changed and her got worried and she was brought into the hospital. She was stroke alert on arrival. CT scan was done and imaging studies were unremarkable. ER physician Mercedes stroke neurologist, Dr. Schroeder. As by that time symptoms much improved and imaging studies were unremarkable,was advised for a aspirin and MRI scan and Neurology conmsult.. Her blood pressure was high when she came in, it was in 220/120 range. She was given iv labetalol. The patient says she is supposed to be on amlodipine 10 mg, hydrochlorothiazide 25 mg, lisinopril 10 mg and spironolactone 50 mg daily. She states she is taking these medications regularly, but for the last 2 days she has had some mild stomach upset and she missed her Aldactone in the morning. She is having severe headache. She still smokes half pack a day. She says she does not have sleep apnea. She said at one point she was told she has renal stenosis, but then after that she had studies done and she was told she does not have it.Currently resting comfortably. No blurred visions, no earache, no runny nose, no sore throat, no cough, no difficulty swallowing. No chest pain, no shortness of breath, no nausea, no abdominal pain. Normal bowel and bladder movements. No swelling in the legs. Principal Diagnosis Hypertensive emergency Discharge Exam Constitutional:WD/WN, vitals as above Neck: trachea midline, no thyromegaly Respiratory: normal respiratory effort, lungs clear to auscultationAuscultation:no rhonchi and no wheezes Cardiovascular:RRR, no murmur, no edemaHeart Sounds:no murmur Gastrointestinal (Abdomen):normal bowel sounds, soft, nontender, no hepatosplenomegaly Musculoskeletal:no cyanosis or clubbing, extremities motor strength 5/5 Skin: no rashes, warm and dry Neurologic: AA+Ox3, euthymic affect Discharge Data Allergies Allergy/AdvReac Type Severity Reaction Status Date / Time nut - unspecified Allergy Severe Anaphylaxis Verified 04/03/22 23:17 Penicillins Allergy Severe Difficulty Verified 04/03/22 23:17 Breathing tree nut Allergy Severe Anaphylaxis Verified 04/03/22 23:17 morphine Allergy Intermediate Hives Verified 04/03/22 23:17 mushroom Allergy Intermediate Hives Verified 04/03/22 23:17 Consultations 04/04/22 00:16 ED Decision to Admit Stat 04/04/22 08:00 Consult Cardiology Routine Consult Neurology Routine Ordered Studies 04/03/22 20:37 CT angio head w con Stat CT angio neck with con Stat CT head/brain wo con Stat 04/04/22 03:51 MR brain wo/w con Urgent Hospital Course (1) Hypertensive emergency: Plan Patient presenting with uncontrolled blood pressure and questionable strokelike symptoms with right-sided facial numbness. Patient was noted to have a elevated blood pressure of 220 x 120. Patient was initiated on oral medication as well as IV medications subsequently with improvement in patient's pressure with resolution of patient's symptoms. Patient did have headaches which is noted to be chronic however improved over the course of the hospital stay. Patient was seen by neurology as well. Recommended gabapentin in the event patient persist to have headaches which she persisted with although mild and gabapentin initiated. Patient feeling better currently. Asking for discharge. Denies active chest pain shortness of breath nausea vomiting or diarrhea. Patient to follow-up with neurology as an outpatient. Total Time Total Time Spent Total Time Spent (In Minutes): 40 minutes Discharge Plan Discharge Items Patient Disposition: Home - Self-Care Reason For Visit: STROKE LIKE SYMPTOMS Discharge Diagnosis: Hypertensive urgency Activity: Resume your previous activity Non-emergency contact: Primary Care Provider and Neurologist Call non-emergency contact if: your symptoms worsen Follow-up/Referrals: Angelic Pereira DO [Primary Care Provider] - (Date & Time 04/11/2022 11:10 AM Provider Angelic Pereira DO Department [facility] ) Diet: Heart Healthy Addtl Attending Provider Instructions: Follow-up with neurology as an outpatient Pending Studies at Discharge: No Stand-Alone Forms: My [employer], Smoking Cessation Medications and DC Order Prescriptions: New carvedilol 12.5 mg Tablet 12.5 mg PO BID Qty: 60 0RF lisinopril 20 mg Tablet 20 mg PO QAM Qty: 30 0RF niacin 500 mg Tablet 500 mg PO QDD Qty: 30 0RF spironolactone 25 mg Tablet 25 mg PO QAM Qty: 30 0RF acetaminophen 325 mg Tablet 650 mg PO Q4H PRN (Reason: headache) Qty: 30 0RF gabapentin 100 mg Capsule 100 mg PO BID Qty: 60 0RF hydrochlorothiazide 25 mg Tablet 12.5 mg PO QAM Qty: 30 0RF nicotine [Nicoderm CQ] 21 mg/24 hr Patch 24 Hour 21 mg transdermal QAM Qty: 28 0RF Continued epinephrine [EpiPen] 0.3 mg/0.3 mL Auto-Injector 0.3 mg IM DIRECTED PRN (Reason: Allergic Reaction) Label Comments: pt says nothing has changed in a week since shes been here last clonazepam 1 mg tablet 1 mg PO TID PRN (Reason: Anxiety) amlodipine 10 mg Tablet 10 mg PO DAILY omeprazole 40 mg capsule,delayed release(DR/EC) 40 mg PO DAILY 14 Days Qty: 14 0RF ondansetron HCl 4 mg tablet 4 mg PO Q8 PRN (Reason: Nausea) Discharge Orders: Discharge Order (Routine); Ordered 04/05/22 Ordered By: Paco Mendes Admission Data Admit Date/Time: 04/04/22 02:07 Attending Provider: Paco Mendes Admit Provider: Gilberto Villalobos Primary Care Provider: Angelic Pereira Other Providers: Gilberto Villalobos ; Skyler Riley ; Kyrie Smith ; Bj Canales ; Jamie Pereira ; Saul Soto ; Dirk Rick ; Brii Jackman ; Thalia Viveros ; Sanjuana Wilkins ; Serge Guthrie ; Fuad Boone
--- NOTE | 2022-04-05 17:10 | Communication Note ---
Date of Service: April 05, 2022 Hypertensive emergency e/b resenting blood pressure of 191/146 MAP 161 and Stroke like symptoms
== END 2022-04-05 12:06 | disposition home or self-care (01) | DRG 304 ==
LOC: ED 20:38 → 2S 04-04 02:07

== ENCOUNTER 2022-09-05 15:23 | Inpatient (IN) ==
[2022-09-05 16:36] LABS: Hemoglobin 13.5 g/dl (12.0-16.0); Mean Corpuscular Hemoglobin 32.8 pg (25.0-34.0); Mean Corpuscular Hgb Conc 34.6 g/dL (32.0-36.0); Mean Corpuscular Volume 94.9 fL (80.0-100.0); Mean Platelet Volume 9.6 fL (9.4-12.3); Nucleated RBC # (auto) 0.03 K/uL (0-0); Nucleated RBC % (auto) 0.1 %; Platelet Count 543 K/uL (130-400); RDW Coefficient of Variation 14.5 % (11.5-14.5); Red Blood Count 4.11 M/uL (3.93-5.22)
[2022-09-05] MEDS ORDERED: SODIUM CHLORIDE 0.9% 1000ML 2,000 ML IV ONE (16:57)
[2022-09-05] MEDS ORDERED: HYDROmorphone INJ 1 MG/ML SYRINGE IV STA (16:57)
[2022-09-05 17:01] LABS: Basophils # (auto) 0.46 K/uL (0-0.2); Basophils % (auto) 1.6 %; Eosinophils # (auto) 0.73 K/uL (0-0.50); Eosinophils % (auto) 2.6 %; Immature Granulocytes # (auto) 1.52 K/uL (0.00-0.02); Immature Granulocytes % (auto) 5.3 %; Lymphocytes # (auto) 4.95 K/uL (1.2-3.4); Lymphocytes % (auto) 17.3 %; Monocytes # (auto) 2.37 K/uL (0.24-0.82); Monocytes % (auto) 8.3 %; Neutrophils # (auto) 18.57 K/uL (1.4-6.5); Neutrophils % (auto) 64.9 %; Polychromasia 1+
--- NOTE | 2022-09-05 17:01 | Emergency Department Note ---
Impression & Plan Leukocytosis, Abdominal pain, Acute hyponatremia, UTI (urinary tract infection) ED Provider Note NAME: CECILIA NIEVES AGE: 36 SEX: F : 1985 ARRIVES VIA: Walk-In INFORMANT: Patient ED PROVIDER(S): Jameson Roger DO CHIEF COMPLAINT: Abdominal pain HPI: Patient is a 36-year-old female who presents the ER for right upper quadrant abdominal pain associate with nausea but no vomiting. Denies any dysuria, urgency, or frequency. Last menstrual period was several years ago. She does have a history of previous cholecystectomy and appendectomy. She has been following with her PCP. This been going on since and getting worse. Pain is a 10 out of 10 and constant. Unable to eat much. PAST MEDICAL HISTORY:See Below PAST SURGICAL HISTORY:See Below FAMILY HISTORY:See Below SOCIAL HISTORY:See Below HOME MEDICATIONS:See Below ALLERGIES:See Below VITALS:See Below PHYSICAL EXAMINATION: GENERAL: Laying in bed moderate distress holding abdomen EYE EXAM: normal conjunctiva. PERRL and EOM's grossly intact. OROPHARYNX: no exudate, no erythema, lips, buccal mucosa, and tongue normal and mucous membranes are moist NECK: supple, no nuchal rigidity, no adenopathy, non-tender LUNGS: Clear to auscultation. Normal chest wall mechanics HEART: no murmurs, S1 normal and S2 normal ABDOMEN: abdomen soft,TTP in RUQ, normo-active bowel sounds, no masses, no rebound or guarding. UPPER EXTREMITIES: upper extremities are grossly normal. LOWER EXTREMITIES: No pitting edema. NEURO EXAM: Normal sensorium, cranial nerves II-XII grossly intact, normal speech, no gross weakness of arms, no gross weakness of legs. MEDICAL DECISION MAKING: Patient is a 36-year-old female who presents ER for abdominal pain. Pain is located periumbilically associated with nausea. IV was established blood work is obtained. Labs show leukocytosis 20,000. No significant anemia. BMP was unremarkable. T bili slightly up at 1.2. LFTs were unremarkable. Lipase is normal. Urine does appear to be consistent with UTI. CT abdomen pelvis showed no acute pathology. Patient was given IV Dilaudid Zofran and fluids. She was updated bedside. External records were reviewed. Case was discussed with Justina from [facility] service in regards to presentation work-up and further treatment. Triage Nursing notes reviewed. Limited review of prior medical records performed Vital Signs: reviewed and remarkable for tachy Differential diagnosis: Differential diagnoses includes but is not limited to gastritis, peptic ulcer disease, GERD, gallbladder disease, pancreatitis, small bowel obstruction, appendicitis, diverticulitis, hernia, urinary tract infection, torsion, /ectopic (if female), perforation, trauma, infectious. ER treatment provided: See below Diagnostics interpreted by me include EKG and cardiac monitoring as listed below: -Cardiac Monitoring: An order was placed for continuous cardiac monitoring. The monitor shows a rate of 85 with sinus rhythm. -ECG: none -Laboratory studies:Interpreted by me as stated above in MDM and shown below. Imaging studies: Xrays: As interpreted by me:none CTs show: CT abdomen pelvis as described above Consultation(s): As described in MDM Procedures:none Critical Care: None Past Med/Surg History Medical History Alcohol abuse, unspecified (07/15/12) Anxiety state, unspecified (06/16/11) Bipolar disorder Headache Hypertension (07/15/12) Overdose of antipsychotic Surgical History Cholecystostomy care History of appendectomy (12/25/12) History of dental surgery Previous section 2007,2008,2009,2012 Tubal ligation status Family History Father Diabetes Hypertension Other Breast cancer No pertinent family history Social History Smoking Status: Current every day smoker Tobacco Type: Cigarettes Cigarettes Per Day: more than 1/2 a pack daily; Second Hand Exposure: No; Tobacco Cessation Education Requested by Patient: No Hx Alcohol Use: No Hx Substance Use: No Preferred Language: Yemeni Communication Ability: Effective Food Cashier Required: No Beliefs That Will Affect Care: None marital status: Current Living Situation: Family current occupational status: unemployed current occupation: Prior employment at [employer] How many Children do You have: 4 Other Information That Helps Us Care for You: No Feels Safe at Home: Yes Safety Concerns: Feels Safe At This Time during the past year weight has: increased > 10 lbs Assistive Devices: Glasses Allergies Allergies Allergy/AdvReac Type Severity Reaction Status Date / Time nut - unspecified Allergy Severe Anaphylaxis Verified 06/19/22 01:35 Penicillins Allergy Severe Difficulty Verified 06/19/22 01:35 Breathing tree nut Allergy Severe Anaphylaxis Verified 06/19/22 01:35 morphine Allergy Intermediate Hives Verified 06/19/22 01:35 mushroom Allergy Intermediate Hives Verified 06/19/22 01:35 Home Meds Home Medications Medication Instructions Recorded Confirmed epinephrine 0.3 mg/0.3 mL 0.3 mg IM DIRECTED PRN Allergic 05/13/18 09/05/22 injection, auto-injector (EpiPen) Reaction amlodipine 10 mg tablet 10 mg PO DAILY 06/02/21 09/05/22 albuterol sulfate 90 mcg/actuation 2 puff inhalation Q4H PRN 06/19/22 09/05/22 aerosol inhaler Shortness Of Breath Or Wheezing hydrochlorothiazide 25 mg tablet 25 mg PO QAM 06/19/22 09/05/22 lisinopril 10 mg tablet 10 mg PO DAILY 06/19/22 09/05/22 bupropion HCl 100 mg tablet,12 hr 100 mg PO AMHS 09/05/22 09/05/22 sustained-release ibuprofen 800 mg tablet 800 mg PO TID 09/05/22 09/05/22 lidocaine HCl 2 % mucosal solution 5 ml PO UD PRN Breakthrough Pain 09/05/22 09/05/22 (Lidocaine Viscous) nystatin 100,000 unit/mL oral 5 ml PO QID 09/05/22 09/05/22 suspension Previous Rx's Medication Instructions Recorded spironolactone 25 mg tablet 25 mg PO QAM #30 tabs 04/05/22 Results & Data (ED) Vital Signs Vital Signs - 24 hr 09/05/22 15:49 09/05/22 17:55 09/05/22 15:54 Temperature 36.3 C L Temperature Source Temporal Artery Scan Pulse Rate 122 H Pulse Rate [Apical] 91 H Pulse Rate from SpO2 Sensor Respiratory Rate 18 20 Respiratory Effort / Characteristics Non-Labored Spontaneous Respiratory Depth Normal Respiratory Pattern Regular Blood Pressure 136/98 Blood Pressure [Left Arm] 139/72 Blood Pressure Mean 110 Blood Pressure Mean [Left Arm] 94 Blood Pressure Position Sitting Pulse Oximetry 96 97 97 Oxygen Delivery Method Room Air Room Air Room Air Sepsis Recent Fever Within 48 Hours No Sepsis New/Unexplained Change in Mental Status N/A Sepsis Action Taken by Nursing No Action Required 09/05/22 17:18 09/05/22 17:30 09/05/22 17:30 Temperature Temperature Source Pulse Rate 99 H 99 H Pulse Rate [Apical] Pulse Rate from SpO2 Sensor 98 H 100 H Respiratory Rate 15 20 Respiratory Effort / Characteristics Respiratory Depth Respiratory Pattern Blood Pressure 138/97 Blood Pressure [Left Arm] Blood Pressure Mean 110 Blood Pressure Mean [Left Arm] Blood Pressure Position Pulse Oximetry 94 93 Oxygen Delivery Method Room Air Room Air Sepsis Recent Fever Within 48 Hours Sepsis New/Unexplained Change in Mental Status Sepsis Action Taken by Nursing 09/05/22 17:50 09/05/22 17:50 09/05/22 18:00 Temperature Temperature Source Pulse Rate 94 H 97 H Pulse Rate [Apical] Pulse Rate from SpO2 Sensor 96 H 97 H Respiratory Rate 17 17 Respiratory Effort / Characteristics Respiratory Depth Respiratory Pattern Blood Pressure 139/72 Blood Pressure [Left Arm] Blood Pressure Mean 94 Blood Pressure Mean [Left Arm] Blood Pressure Position Pulse Oximetry 95 95 Oxygen Delivery Method Room Air Room Air Sepsis Recent Fever Within 48 Hours Sepsis New/Unexplained Change in Mental Status Sepsis Action Taken by Nursing 09/05/22 18:30 09/05/22 19:00 09/05/22 19:30 Temperature Temperature Source Pulse Rate 87 99 H 98 H Pulse Rate [Apical] Pulse Rate from SpO2 Sensor 88 99 H Respiratory Rate 19 21 27 H Respiratory Effort / Characteristics Respiratory Depth Respiratory Pattern Blood Pressure Blood Pressure [Left Arm] Blood Pressure Mean Blood Pressure Mean [Left Arm] Blood Pressure Position Pulse Oximetry 95 97 Oxygen Delivery Method Room Air Room Air Sepsis Recent Fever Within 48 Hours Sepsis New/Unexplained Change in Mental Status Sepsis Action Taken by Nursing Laboratory Data 09/05/22 Unknown 09/05/22 Unknown Lab Results 09/05/22 09/05/22 09/05/22 Range/Units 17:50 17:59 18:37 Potassium 3.1 L (3.5-5.1) mmol/L AST 91 H (13-39) U/L Urine Color [place] Urine Appearance Cloudy A (Clear) Urine pH 5.5 (4.5-7.5) Ur Specific [place] 1.025 (1.000-1.030) Urine Protein 2+ H (Negative) Urine Glucose (UA) Trace H (Negative) Urine Ketones Trace H (Negative) Urine Blood Negative (Negative) Urine Nitrite Negative (Negative) Urine Bilirubin 2+ H (Negative) Urine Urobilinogen Negative (Negative) Ur Leukocyte Esterase Trace H (Negative) Urine RBC 0-4 (0-4) /hpf Urine WBC 10-30 H (0-5) /hpf Ur Epithelial Cells 5-10 H (0-5) /lpf Urine Bacteria 2+ H (Negative) SARS-CoV-2, RNA, NAAT NEGATIVE (NEGATIVE) Administered Medications Bupropion HCl (Bupropion Sr 100 Mg Tabcr) 100 mg PO AMHS VANIA Stop: 10/05/22 21:24 Last Admin: 09/05/22 21:40 Dose: Not Given Documented By: MARIO Hydromorphone HCl (Hydromorphone Inj 0.5 Mg/0.5 Ml Syr) 0.5 mg IV Q3H PRN PRN Reason: pain Stop: 09/19/22 20:57 Last Admin: 09/05/22 21:26 Dose: 0.5 mg Documented By: MARIO Discontinued Medications Al Hydrox/Mg Hydrox/Simethicone (Gi Cocktail Ed Use) 1 dose PO ONE ONE Stop: 09/05/22 18:35 Last Admin: 09/05/22 18:57 Dose: 1 dose Documented By: [id number] Hydromorphone HCl (Hydromorphone Inj 1 Mg/Ml Syringe) 1 mg IV NOW STA Stop: 09/05/22 16:58 Last Admin: 09/05/22 17:08 Dose: 1 mg Documented By: [id number] Hydromorphone HCl (Hydromorphone Inj 0.5 Mg/0.5 Ml Syr) 0.5 mg IV NOW STA Stop: 09/05/22 18:35 Last Admin: 09/05/22 18:57 Dose: 0.5 mg Documented By: [id number] Sodium Chloride (Nss 1000ml) 2,000 mls @ 999 mls/hr IV .Q2H1M ONE Stop: 09/05/22 18:57 Last Infusion: 09/05/22 19:29 Dose: 0 mls/hr Documented By: [id number] Admin: 09/05/22 17:08 Dose: 999 mls/hr Documented By: [id number] Ceftriaxone Sodium (Rocephin) 2,000 mg in 70 mls @ 140 mls/hr IV NOW STA Stop: 09/05/22 18:30 Last Infusion: 09/05/22 19:29 Dose: 0 mls/hr Documented By: [id number] Admin: 09/05/22 18:14 Dose: 140 mls/hr Documented By: [email or web address] Ioversol (Optiray 350 100ml) 81 ml IV ONCE ONE Stop: 09/05/22 17:39 Last Admin: 09/05/22 17:39 Dose: 81 ml Documented By: [email or web address] Potassium Chloride (Potassium Chloride Crtab 20 Meq Tabcr) 40 meq PO NOW STA Stop: 09/05/22 20:58 Last Admin: 09/05/22 21:34 Dose: 40 meq Documented By: GCB Imaging Data Radiologist's Impression: Abdomen/Pelvis CT 09/05/22 16:[address] WITH IV CONTRAST CT DOSE: 1399.01 mGy.cm HISTORY: Acute generalized abdominal pain with leukocytosis abd pain wbc 28k TECHNIQUE: Multiaxial CT images of the abdomen and pelvis were performed following the IV administration of 81 cc of Optiray, A dose lowering technique was utilized adhering to the principles of ALARA. COMPARISON STUDY: CT abdomen and pelvis 03/31/2022, CT abdomen and pelvis 10/19/2019, 08/29/2011 FINDINGS: Clear lung bases. No pneumatosis or pneumoperitoneum. Unremarkable spleen, pancreas and adrenal glands. Cholecystectomy. Hepatomegaly with hepatic steatosis. Ill-defined 8 mm area of decreased attenuation involving the anterior liver on image 26 series 2 is likely secondary to more severe fatty infiltration. Patent portal vein. Unremarkable left kidney. Subcentimeter hypodense focus of the inferior pole left kidney likely represents a cyst. Complex 2 cm slightly hypodense lesion involving the cortex of the posterior interpolar right kidney on image 236 series 3 demonstrates a dependent 2 mm calcification. Partial distention of the urinary bladder with mild wall thickening. This is stable in size compared to the prior study. Mildly heterogeneous appearance of the uterus. Mild atherosclerosis of the aorta. No lymphadenopathy. No bowel obstruction or bowel wall thickening. There is partial distention of the large bowel. Appendectomy. No ascites or mesenteric inflammation. Unremarkable soft tissues. No acute fracture identified. IMPRESSION: 1. No acute intra-abdominal or intrapelvic abnormality identified. 2. No bowel obstruction or bowel wall thickening. 3. Appendectomy and cholecystectomy. 4. Hepatomegaly with hepatic steatosis. 5. Complex 2 cm lesion of the right kidney is stable compared to the 2020 exam. This may represent a complex cyst, however could be correlated with a nonemergent follow-up ultrasound. ACT 112: Negative or not required by law. The above report was generated using voice recognition software. It may contain grammatical, syntax or spelling errors. Electronically signed by: Jeancarlos Armas M.D. 09/05/2022 5:58 PM Liver Ultrasound 09/05/22 19:26 US liver HISTORY: 36 years-old Female alcoholic hepatitis, leukocytosis acute right upper quadrant abdominal pain COMPARISON: CT of same day TECHNIQUE: Multiple real-time sonographic images of the abdominal right upper quadrant were obtained assessing grayscale appearance and color flow FINDINGS: Pancreas is obscured by bowel gas. Hepatomegaly with hepatic steatosis. The liver measures 13 cm in length. No hepatic mass identified. Cholecystectomy. Normal common bile duct, 5 mm. No hydronephrosis of the right kidney. Mildly complex 2.0 x 1.5 x 1.8 cm cyst of the interpolar right kidney with layering milk of calcium. IMPRESSION: 1. Hepatomegaly with hepatic steatosis. 2. Cholecystectomy. 3. 2.0 cm mildly complex cyst of the right kidney. ACT 112: Negative or not required by law. The above report was generated using voice recognition software. It may contain grammatical, syntax or spelling errors. Electronically signed by: Jeancarlos Armas M.D. 09/05/2022 8:34 PM Discharge Plan Visit Data Chief Complaint: Abdominal Pain Stated Complaint: ABD PAIN ED Provider: Jameson Roger Discharge Problem: Leukocytosis, Abdominal pain, Acute hyponatremia, UTI (urinary tract infection) Patient Disposition: Admitted As Inpatient Discharge Instructions Interventions: ED Discharge Assessment Last Done: 09/05/22 21:43
[2022-09-05 17:25] LABS: Alanine Aminotransferase 22 U/L (7-52); Alkaline Phosphatase 202 U/L (34-104); Anion Gap 14 (3-11); BUN Creatinine Ratio 7.2 (10-20); Bilirubin,Total 1.2 mg/dl (0.2-1.0); Blood Urea Nitrogen 7 mg/dl (6-23); Calcium 9.2 mg/dl (8.5-10.1); Carbon Dioxide 23 mmol/L (21-32); Chloride 97 mmol/L (98-107); Creatinine Clr Calc Pharmacy 100.7 ml/min; Est GFR (African American) 88.3 ml/min; Est GFR (Non-African American) 76.2 ml/min; Globulin 4.2 gm/dl (2.5-4.0); Glucose 103 mg/dl (70-99(Fasting)); Lipase 13 U/L (11-82); Sodium 134 mmol/L (136-145); Total Protein 8.2 gm/dl (6.0-8.3)
[2022-09-05] MEDS ORDERED: OPTIRAY 350 100ml IV ONE (17:38)
--- NOTE | 2022-09-05 18:00 | CT Scan Report ---
ABDOMEN AND PELVIS CT WITH IV CONTRAST CT DOSE: 1399.01 mGy.cm HISTORY: Acute generalized abdominal pain with leukocytosis abd pain wbc 28k TECHNIQUE: Multiaxial CT images of the abdomen and pelvis were performed following the IV administrat ion of 81 cc of Optiray, A dose lowering technique was utilized adhering to the principles of ALARA. COMPARISON STUDY: CT abdomen and pelvis 03/31/2022, CT abdomen and pelvis 10/19/2019, 08/29/2011 FINDINGS: Clear lung bases. No pneumatosis or pneumoperitoneum. Unremarkable spleen, pancreas and adr enal glands. Cholecystectomy. Hepatomegaly with hepatic steatosis. Ill-defined 8 mm area of decreased attenuation involving the anterior liver on image 26 series 2 is likely secondary to more severe fat ty infiltration. Patent portal vein. Unremarkable left kidney. Subcentimeter hypodense focus of the inferior pole left kidney likely repre sents a cyst. Complex 2 cm slightly hypodense lesion involving the cortex of the posterior interpolar right kidney on image 236 series 3 demonstrates a dependent 2 mm calcification. Partial distention o f the urinary bladder with mild wall thickening. This is stable in size compared to the prior study. Mildly heterogeneous appearance of the uterus. Mild atherosclerosis of the aorta. No lymphadenopathy. No bowel obstruction or bowel wall thickening. There is partial distention of the large bowel. Append ectomy. No ascites or mesenteric inflammation. Unremarkable soft tissues. No acute fracture identifie d. IMPRESSION: 1. No acute intra-abdominal or intrapelvic abnormality identified. 2. No bowel obstruction or bowel wall thickening. 3. Appendectomy and cholecystectomy. 4. Hepatomegaly with hepatic steatosis. 5. Complex 2 cm lesion of the right kidney is stable compared to the 2019 exam. This may represent a complex cyst, however could be correlated with a nonemergent follow-up ultrasound. ACT 112: Negative or not required by law. The above report was generated using voice recognition software. It may contain grammatical, syntax o r spelling errors. Electronically signed by: Jeancarlos Armas M.D. 09/05/2022 5:58 PM
[2022-09-05] MEDS ORDERED: cefTRIAXone SODIUM 2,000 MG/70 ML BAG IV STA (18:01)
[2022-09-05 18:34] LABS: Appearance Urine Cloudy (Clear); Bilirubin Urine 2+ (Negative); Blood Urine Negative (Negative); Color Urine Orange; Glucose Urine UA Trace (Negative); Ketones Urine Trace (Negative); Leukocyte Esterase Urine Trace (Negative); Nitrite Urine Negative (Negative); Protein Urine 2+ (Negative); Specific Gravity Urine 1.025 (1.000-1.030); Urobilinogen Urine Negative (Negative); pH Urine 5.5 (4.5-7.5)
[2022-09-05] MEDS ORDERED: GI COCKTAIL ED USE PO ONE (18:34)
[2022-09-05] MEDS ORDERED: HYDROmorphone INJ 0.5 MG/0.5 ML SYR IV STA (18:34)
[2022-09-05 18:37] LABS: Potassium 3.1 mmol/L (3.5-5.1)
[2022-09-05 18:40] LABS: RBC Urine 0-4 /hpf (0-4)
[2022-09-05 18:41] LABS: Bacteria Urine 2+ (Negative)
--- NOTE | 2022-09-05 18:44 | History & Physical Report ---
Date of Service September 05, 2022 Assessment & Plan (1) Alcoholic hepatitis: (2) Abdominal pain: Plan: - Admit to med surg - Outpatient workup reviewed in EPIC: Hepatitis panel was negative, stool pathogen panel PCR was negative, stool culture neg, as well as a recent CT abd which was done on 08/29/22 which showed severe hepatomegaly with heterogenous attenuation of the liver probably related to hepatic steatosis. Mild splenomegaly. New right renal cortical lesion. - Check liver US - Consult GI - Trend am labs with LFTs, cbc with leukocytosis and left shift on admission - concern for possible underlying infection - Follow blood culture x 2, check procal, peripheral smear consult - Trend magnesium with am labs - Pain control with dilaudid IV due to severe pain and no improvement with ibuprofen, no tylenol with acute alcoholic hepatitis - Start pantoprazole IV daily with heavy NSAID use - Keep NPO for now and start NSS + KCl at 125 ml/hr (3) Alcohol abuse, unspecified: Plan: - Hx of such, quit 08/07/22 but prior to this was drinking 12 shots vodka mixed with orange juice per day - Poor diet, will add folic acid, thiamine, mvi daily - Encourage continued cessation - Has followed with [facility] as outpatient - Continue bupropion as above (4) Hypertension: Plan: - Hx of such, Cont hctz, lisinopril, amlodipine - Pt also with hx of hypertensive urgency and emergency, BP is currently well controlled (5) JEAN (generalized anxiety disorder): Plan: - Continue bupropion hcl 100 mg BID DVT PPx: scds CODE: Full code Dispo: From home, likely to remain in the hospital x 1-2 days A total of 76 minutes were spent with greater than 50% of that time face to face with the patient, personally reviewing all current laboratories, imaging studies, past medication reconciliation, outpatient chart review, and discussion with specialists to collaborate care for the patient with attending. Please see attending documentation for corrections and/or additions. History of Present Illness Chief Complaint: Abdominal pain Primary Care Provider: Angelic Pereira DO This is a 36-year-old female with PMHx of chronic hypokalemia, hypertensive urgency, HTN, morbid obesity with BMI of 37.8, opioid dependence in remission, history of seizure-like activity, bipolar I disorder, tobacco abuse, generalized anxiety disorder, posttraumatic stress disorder, who presents with abdominal pain. She reports having significant abdominal pain in the right upper side which has been worsening specifically since last . It is nearly constant, with some sharp stabbing pain in nature. She has had diarrhea for the past 6 months which had negative outpatient workup. Reports 10-12 diarrhea movements daily, nearly all liquid with mucous. Denies any blood. She is taking ibuprofen 600 mg four times per day for the past week due to worsening abdominal pain. Her diet has been very poor recently. Pt recently stopped drinking all alcohol 1 month ago cold turkey, and then noticed night sweats where she was soaking the sheets. Pt also admits to chills but denies fevers. Pt thought this was due to alcohol stopping. Her drink of choice was vodka with orange juice ~12 shots per day which went on for 6 month time frame. She quit on 08/07/22 because her father was also working to stop drinking. Pt admits to feeling like she needs to pee and has increased urgency, no dysuria or hematuria. Allergies Allergy/AdvReac Type Severity Reaction Status Date / Time nut - unspecified Allergy Severe Anaphylaxis Verified 06/19/22 01:35 Penicillins Allergy Severe Difficulty Verified 06/19/22 01:35 Breathing tree nut Allergy Severe Anaphylaxis Verified 06/19/22 01:35 morphine Allergy Intermediate Hives Verified 06/19/22 01:35 mushroom Allergy Intermediate Hives Verified 06/19/22 01:35 Home Medications Medication Instructions Recorded Confirmed Type epinephrine 0.3 mg/0.3 mL 0.3 mg IM DIRECTED PRN Allergic 05/13/18 09/05/22 History injection, auto-injector (EpiPen) Reaction amlodipine 10 mg tablet 10 mg PO DAILY 06/02/21 09/05/22 History spironolactone 25 mg tablet 25 mg PO QAM #30 tabs 04/05/22 09/05/22 Rx albuterol sulfate 90 mcg/actuation 2 puff inhalation Q4H PRN 06/19/22 09/05/22 History aerosol inhaler Shortness Of Breath Or Wheezing hydrochlorothiazide 25 mg tablet 25 mg PO QAM 06/19/22 09/05/22 History lisinopril 10 mg tablet 10 mg PO DAILY 06/19/22 09/05/22 History bupropion HCl 100 mg tablet,12 hr 100 mg PO AMHS 09/05/22 09/05/22 History sustained-release ibuprofen 800 mg tablet 800 mg PO TID 09/05/22 09/05/22 History lidocaine HCl 2 % mucosal solution 5 ml PO UD PRN Breakthrough Pain 09/05/22 09/05/22 History (Lidocaine Viscous) nystatin 100,000 unit/mL oral 5 ml PO QID 09/05/22 09/05/22 History suspension Past Med/Surg History Medical History Alcohol abuse, unspecified (07/15/12) Anxiety state, unspecified (06/16/11) Bipolar disorder Headache Hypertension (07/15/12) Overdose of antipsychotic Surgical History Cholecystostomy care History of appendectomy (12/25/12) History of dental surgery Previous section 2007,2008,2009,2012 Tubal ligation status Family History Father Diabetes Hypertension Other Breast cancer No pertinent family history Social History Smoking Status: Current every day smoker Tobacco Type: Cigarettes Cigarettes Per Day: 20; Second Hand Exposure: No; Hx Alcohol Use: Yes Alcohol type: beer and wine Hx Substance Use: Yes Last Used Substance: Unknown Last Used Substance Other:: Medical Marijuana yesterday. 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 Payroll Required: No Beliefs That Will Affect Care: None marital status: Current Living Situation: Spouse and Significant Other current occupational status: unemployed current occupation: Prior employment at [employer] How many Children do You have: 4 Feels Safe at Home: Yes during the past year weight has: increased > 10 lbs Assistive Devices: None Review of Systems Review of Systems: Constitutional: No fever, sweats, + chills Eyes: No diplopia, no worsening or blurred vision ENT: normal hearing, no trouble swallowing Respiratory: No cough, sputum, dyspnea at rest or on exertion Cardiovascular: No chest pain, tightness or palpitations Abdomen: + As per HPI, + pain, +nausea, no vomiting, + diarrhea, no constipation Musculoskeletal: No joint pain, calf pain, swelling Neurologic: No weakness, numbness/tingling, or balance problems Psychiatric: + anxiety and depression on medication Skin: No rash or itch Physical Exam Physical Exam: Please refer to attending physical exam addendum. Results & Data Results & Data ([facility]) Vital Signs (Past 12 Hours) Vital Signs Temp Pulse Pulse Resp BP BP Pulse Ox 09/05/22 15:54 97 09/05/22 17:55 91 H 20 139/72 97 09/05/22 15:49 36.3 C L 122 H 18 136/98 96 O2 Del Method 09/05/22 15:54 Room Air 09/05/22 17:55 Room Air 09/05/22 15:49 Room Air Laboratory Results 09/05/22 17:50 Urine Culture - Pending Urine,Clean Catch 09/05/22 09/05/22 09/05/22 Unknown Unknown 18:37 WBC 28.60 H RBC 4.11 Hgb 13.5 Hct 39.0 MCV 94.9 MCH 32.8 MCHC 34.6 RDW Std Deviation 50.0 H RDW Coeff of Carmen 14.5 Plt Count 543 H MPV 9.6 Immature Gran % (Auto) 5.3 Neut % (Auto) 64.9 Lymph % (Auto) 17.3 [place] % (Auto) 8.3 Eos % (Auto) 2.6 Baso % (Auto) 1.6 Neut # (Auto) 18.57 H Lymph # (Auto) 4.95 H [place] # (Auto) 2.37 H Eos # (Auto) 0.73 H Baso # (Auto) 0.46 H Immature Gran # (Auto) 1.52 H Absolute Nucleated RBC 0.03 H Nucleated RBC % (auto) 0.1 Polychromasia 1+ Sodium 134 L Potassium TNP Chloride 97 L Carbon Dioxide 23 Anion Gap 14 H BUN 7 Creatinine 0.97 Est Cr Clr Drug Dosing 100.7 Est GFR ( Amer) 88.3 Est GFR (Non-Af Amer) 76.2 BUN/Creatinine Ratio 7.2 L Glucose 103 H Calcium 9.2 Total Bilirubin 1.2 H AST TNP ALT 22 Alkaline Phosphatase 202 H Total Protein 8.2 Albumin 4.0 Globulin 4.2 H Albumin/Globulin Ratio 1.0 Lipase 13 Urine Color Urine Appearance Urine pH Ur Specific Bruce Urine Protein Urine Glucose (UA) Urine Ketones Urine Blood Urine Nitrite Urine Bilirubin Urine Urobilinogen Ur Leukocyte Esterase Urine RBC Urine WBC Ur Epithelial Cells Urine Bacteria SARS-CoV-2, RNA, NAAT NEGATIVE 09/05/22 09/05/22 17:59 17:50 WBC RBC Hgb Hct MCV MCH MCHC RDW Std Deviation RDW Coeff of Carmen Plt Count MPV Immature Gran % (Auto) Neut % (Auto) Lymph % (Auto) [place] % (Auto) Eos % (Auto) Baso % (Auto) Neut # (Auto) Lymph # (Auto) [place] # (Auto) Eos # (Auto) Baso # (Auto) Immature Gran # (Auto) Absolute Nucleated RBC Nucleated RBC % (auto) Polychromasia Sodium Potassium 3.1 L Chloride Carbon Dioxide Anion Gap BUN Creatinine Est Cr Clr Drug Dosing Est GFR ( Amer) Est GFR (Non-Af Amer) BUN/Creatinine Ratio Glucose Calcium Total Bilirubin AST 91 H ALT Alkaline Phosphatase Total Protein Albumin Globulin Albumin/Globulin Ratio Lipase Urine Color [place] Urine Appearance Cloudy A Urine pH 5.5 Ur Specific Bruce 1.025 Urine Protein 2+ H Urine Glucose (UA) Trace H Urine Ketones Trace H Urine Blood Negative Urine Nitrite Negative Urine Bilirubin 2+ H Urine Urobilinogen Negative Ur Leukocyte Esterase Trace H Urine RBC 0-4 Urine WBC 10-30 H Ur Epithelial Cells 5-10 H Urine Bacteria 2+ H SARS-CoV-2, RNA, NAAT Diagnostic Findings Abdomen/Pelvis CT 09/05/22 16:[address] WITH IV CONTRAST CT DOSE: 1399.01 mGy.cm HISTORY: Acute generalized abdominal pain with leukocytosis abd pain wbc 28k TECHNIQUE: Multiaxial CT images of the abdomen and pelvis were performed following the IV administration of 81 cc of Optiray, A dose lowering technique was utilized adhering to the principles of ALARA. COMPARISON STUDY: CT abdomen and pelvis 03/31/2022, CT abdomen and pelvis 10/19/2019, 08/29/2011 FINDINGS: Clear lung bases. No pneumatosis or pneumoperitoneum. Unremarkable spleen, pancreas and adrenal glands. Cholecystectomy. Hepatomegaly with hepatic steatosis. Ill-defined 8 mm area of decreased attenuation involving the anterior liver on image 26 series 2 is likely secondary to more severe fatty infiltration. Patent portal vein. Unremarkable left kidney. Subcentimeter hypodense focus of the inferior pole lef t kidney likely represents a cyst. Complex 2 cm slightly hypodense lesion involving the cortex of the posterior interpolar right kidney on image 236 series 3 demonstrates a dependent 2 mm calcification. Partial distention of the urinary bladder with mild wall thickening. This is stable in size compared to the prior study. Mildly heterogeneous appearance of the uterus. Mild atherosclerosis of the aorta. No lymphadenopathy. No bowel obstruction or bowel wall thickening. There is partial distention of the large bowel. Appendectomy. No ascites or mesenteric inflammation. Unremarkable soft tissues. No acute fracture identified. IMPRESSION: 1. No acute intra-abdominal or intrapelvic abnormality identified. 2. No bowel obstruction or bowel wall thickening. 3. Appendectomy and cholecystectomy. 4. Hepatomegaly with hepatic steatosis. 5. Complex 2 cm lesion of the right kidney is stable compared to the 2020 exam. This may represent a complex cyst, however could be correlated with a noneme rgent follow-up ultrasound. ACT 112: Negative or not required by law. The above report was generated using voice recognition software. It may contain grammatical, syntax or spelling errors. Electronically signed by: Jeancarlos Armas M.D. 09/05/2022 5:58 PM Code Status & VTE Plan Code Status Full code - discussed with the patient at bedside Supervising Physician Co-Signing Physician Notes Patient seen and examined independently. Discussed with Sabrina White. 36 yo F with Hx of alcohol use disorder presents with RUQ abdominal pain, chills and diarrhea. On Physical Examination: General: Awake, alert, oriented X3, moderate distress due to pain. Chest: B/L vesicular breath sound CVS: S1S2, no murmur Abdomen- Hepatomegaly +nt, Tenderness present, BS +nt MSK- no edema, strength- 5/5 Skin- no rash, bruises. Neuro- CN II-XII intact, grossly intact. Psych: normal affect. Assessment/Plan: Alcohol hepatitis: RUQ usg, trend liver enzymes, nutritional support. GI consult. will obtain PT/INR in am. Infectious work up. Leukocytosis, Thrombocytosis: WBC-28, infectious work up include CXR, blood cx, urine cx and empiric antibiotics.will get hematology input if infectious work up is negative. Diarrhea- watery diarrhea. GI PCR. Full code DVT SCDs (1) Hypertension Hypertension type: unspecified Qualified Code(s): I10 - Essential (primary) hypertension
[2022-09-05] MEDS ORDERED: HYDROmorphone INJ 0.5 MG/0.5 ML SYR IV PRN ×2 (19:11→20:58)
[2022-09-05] MEDS ORDERED: HYDROmorphone INJ 1 MG/ML SYRINGE IV PRN (19:11)
--- NOTE | 2022-09-05 20:36 | Ultrasound Report ---
US liver HISTORY: 36 years-old Female alcoholic hepatitis, leukocytosis acute right upper quadrant abdominal pain COMPARISON: CT of same day TECHNIQUE: Multiple real-time sonographic images of the abdominal right upper quadrant were obtained assessing grayscale appearance and color flow FINDINGS: Pancreas is obscured by bowel gas. Hepatomegaly with hepatic steatosis. The liver measures 13 cm in l ength. No hepatic mass identified. Cholecystectomy. Normal common bile duct, 5 mm. No hydronephrosis of the right kidney. Mildly complex 2.0 x 1.5 x 1.8 cm cyst of the interpolar right kidney with layering milk of calcium. IMPRESSION: 1. Hepatomegaly with hepatic steatosis. 2. Cholecystectomy. 3. 2.0 cm mildly complex cyst of the right kidney. ACT 112: Negative or not required by law. The above report was generated using voice recognition software. It may contain grammatical, syntax o r spelling errors. Electronically signed by: Jeancarlos Armas M.D. 09/05/2022 8:34 PM
[2022-09-05] MEDS ORDERED: POTASSIUM CHLORIDE CRTAB 20 MEQ TABCR PO STA (20:57)
[2022-09-05] MEDS ORDERED: ALBUTEROL HFA 8 GM INHALER INH PRN (21:25)
[2022-09-05] MEDS: HYDROmorphone INJ 0.5 MG/0.5 ML SYR IV PRN (21:26)
[2022-09-05] MEDS: buPROPion SR 100 MG TABCR PO SCH (21:40)
[2022-09-05] MEDS: POTASSIUM CHLORIDE 10 MEQ in SODIUM CHLORIDE 0.9% 1000ML 1,000 ML IV SCH (22:56)
[2022-09-06 00:36] LABS: Adenovirus F 40/41 PCR Not Detected (NotDetected); Astrovirus PCR Not Detected (NotDetected); Campylobacter PCR Not Detected (NotDetected); Cryptosporidium PCR Not Detected (NotDetected); Cyclospora cayetanensis PCR Not Detected (NotDetected); Entamoeba histolytica PCR Not Detected (NotDetected); Enteroaggregative E.coli(EAEC) Not Detected (NotDetected); Enteropathogenic E.coli (EPEC) Not Detected (NotDetected); Enterotoxigenic E.coli (ETEC) Not Detected (NotDetected); Giardia lamblia PCR Not Detected (NotDetected); Norovirus GI/GII PCR Not Detected (NotDetected); Plesiomonas shigelloides PCR Not Detected (NotDetected); Rotavirus A PCR Not Detected (NotDetected); Salmonella PCR Not Detected (NotDetected); Sapovirus PCR Not Detected (NotDetected); Shiga-like Toxin E.coli (STEC) Not Detected (NotDetected); Shigella/Enteroinvasive E.coli Not Detected (NotDetected); Vibrio cholerae PCR Not Detected (NotDetected); Vibrio species PCR Not Detected (NotDetected); Yersinia enterocolitica PCR Not Detected (NotDetected)
[2022-09-06] MEDS: HYDROmorphone INJ 0.5 MG/0.5 ML SYR IV PRN ×7 (00:46→20:27)
[2022-09-06] MEDS: ONDANSETRON INJ 2 MG/ML 2 ML VIAL IV PRN ×3 (03:53→16:37)
[2022-09-06] MEDS: POTASSIUM CHLORIDE 10 MEQ in SODIUM CHLORIDE 0.9% 1000ML 1,000 ML IV SCH ×3 (06:42→23:19)
[2022-09-06 07:23] LABS: Hematocrit (blood only) 34.8 % (34.1-44.9); Hemoglobin 11.6 g/dl (12.0-16.0); Mean Corpuscular Hemoglobin 32.8 pg (25.0-34.0); Mean Corpuscular Hgb Conc 33.3 g/dL (32.0-36.0); Mean Corpuscular Volume 98.3 fL (80.0-100.0); Mean Platelet Volume 9.9 fL (9.4-12.3); Nucleated RBC # (auto) 0.02 K/uL (0-0); Nucleated RBC % (auto) 0.1 %; Platelet Count 464 K/uL (130-400); RDW Coefficient of Variation 14.6 % (11.5-14.5); RDW Standard Deviation 52.6 fL (36.4-46.3); Red Blood Count 3.54 M/uL (3.93-5.22); White Blood Count 23.62 K/ul (4.8-10.8)
[2022-09-06 07:54] LABS: Basophils # (auto) 0.27 K/uL (0-0.2); Basophils % (auto) 1.1 %; Eosinophils # (auto) 0.67 K/uL (0-0.50); Eosinophils % (auto) 2.8 %; Immature Granulocytes % (auto) 4.2 %; Lymphocytes # (auto) 4.38 K/uL (1.2-3.4); Lymphocytes % (auto) 18.5 %; Monocytes # (auto) 1.86 K/uL (0.24-0.82); Monocytes % (auto) 7.9 %; Neutrophils # (auto) 15.44 K/uL (1.4-6.5); Neutrophils % (auto) 65.5 %; RBC Morphology Unremarkable
[2022-09-06 07:55] LABS: INR 1.1 (0.9-1.1)
[2022-09-06 08:07] LABS: Albumin Level 3.4 gm/dl (3.4-5.0); Bilirubin Direct 0.5 mg/dl (0-0.2); Bilirubin,Total 1.1 mg/dl (0.2-1.0); Calcium 7.9 mg/dl (8.5-10.1); Magnesium 1.6 mg/dl (1.7-2.4); Potassium 3.4 mmol/L (3.5-5.1)
[2022-09-06] MEDS: buPROPion SR 100 MG TABCR PO SCH (08:08)
[2022-09-06] MEDS: MULTIVITAMIN TAB PO SCH (08:10)
[2022-09-06] MEDS: lisinopril 10 MG TAB PO SCH (08:10)
[2022-09-06] MEDS: THIAMINE HCL 100 MG TAB PO SCH (08:10)
[2022-09-06] MEDS: SPIRONOLACTONE 25 MG TAB PO SCH (08:10)
[2022-09-06] MEDS: FOLIC ACID 400 MCG TAB PO SCH (08:10)
[2022-09-06 08:13] LABS: BUN Creatinine Ratio 8.8 (10-20); C Reactive Protein 5.91 mg/dl (0-0.5); Creatinine Clr Calc Pharmacy 144.8 ml/min; Est GFR (African American) 132.3 ml/min; Est GFR (Non-African American) 114.1 ml/min; Globulin 3.3 gm/dl (2.5-4.0); Total Protein 6.7 gm/dl (6.0-8.3)
[2022-09-06] MEDS ORDERED: POTASSIUM CHLORIDE CRTAB 20 MEQ TABCR PO STA (08:23)
[2022-09-06] MEDS: MAGNESIUM SULFATE / D5W 1 GM/100 ML BAG IV SCH ×4 (08:51→14:58)
[2022-09-06] MEDS ORDERED: amLODIPine BESYLATE 5 MG TAB PO SCH (09:00)
[2022-09-06] MEDS ORDERED: hydroCHLOROthiazide 25 MG TAB PO SCH (09:00)
[2022-09-06] MEDS: NICOTINE 21 MG/24 HR TDSY TD SCH (09:29)
[2022-09-06] MEDS ORDERED: PANTOprazole 40 MG in SYRINGE 0 ML IV SCH (11:00)
--- NOTE | 2022-09-06 13:19 | Hospitalist Progress Note ---
Date of Service September 06, 2022 Assessment & Plan (1) Alcoholic hepatitis: (2) Alcohol abuse, unspecified: (3) Abdominal pain: Plan: Suspected alcoholic hepatitis Patient reports that she quit drinking on 08/07/2022. Used to drink 2 shots of vodka mixed with orange juice every day prior to that for 6 months. AST/ALT ratio in outpatient lab greater than [address] abdomen on August 29 showed severe hepatomegaly Outpatient hepatitis panel negative. Was sent to the emergency department by her primary care doctor due to leukocytosis, thrombocytosis and elevated LFTs CT abdomen done in admission shows hepatomegaly with hepatic steatosis. Prior cholecystectomy seen. Liver ultrasound confirms the same. PT/INR within normal limits. AST down trended. ALP 177. Plan; suspected alcoholic hepatitis; will appreciate GIs input. Continue supportive care with IV fluids, hydration and nutritional support. Underlying UTI treated with antibiotic. Pain control with Toradol, tramadol and Dilaudid. (4) Leukocytosis: (5) Thrombocytosis: (6) UTI (urinary tract infection): Plan: Patient was sent by her primary care doctor due to leukocytosis and thrombocytosis. CRP and ESR elevated consistent with underlying inflammation or infection. Urine culture shows gram-negative bacilli Pro-Bib elevated Chest x-ray negative for pneumonia Blood culture pending Continue on ceftriaxone for now; peripheral blood smear ordered. Leukocytosis likely due to infection(source UTI). We will follow-up on final result and culture. (7) Chronic diarrhea: Plan: Reports watery diarrhea ongoing for last 6 months. Frequency of diarrhea 8-10 episodes per day GI PCR panel negative We will check for community-acquired C. difficile Trial of Imodium after C. difficile rule out. (8) Hypertension: Plan: - Holding her amlodipine and hydrochlorothiazide for now. Continue on lisinopril and Aldactone. (9) Hypomagnesemia: (10) Hypokalemia: Plan: History of low magnesium and potassium. Will provide IV magnesium and oral potassium. Plan Full code DVT SCDs DispoHome after resolution of medical issues Admission and Anticipated Discharge Date Admission Date: September 05, 2022 Subjective Patient seen and examined at bedside. She reports continuing abdominal pain in right upper quadrant. She also complains of multiple episode of watery diarrhea. Review of Systems Review of Systems: All systems reviewed & are unremarkable except as noted in Subjective Physical Exam Physical Exam: Constitutional: Awake, alert, oriented x3; in moderate distress due to right upper quadrant abdominal pain. Respiratory: normal respiratory effort, lungs clear to auscultation, no wheeze, rales, rhonchi. Normal insp/exp effort, no accessory muscle use Cardiovascular: RRR, no murmur, no edema Vessels: no JVD or carotid bruit Chest: normal inspection of chest Abdomen: Hepatomegaly present, tenderness present in right upper quadrant. Musculoskeletal: no cyanosis or clubbing, extremities motor strength 5/5 Skin: no rashes, warm and dry normal turgor Neurologic: PERRL, EOMI, accommodation nl, no face palsy, no dysarthria CN's II- XI intact bilaterally and moves all extremities Psychiatric: A+Ox3, euthymic affect Lymphatic: no cervical or axillary lymphadenopathy : deferred Results & Data Results & Data ([facility]) Vital Signs (Past 12 Hours) Vital Signs Temp Pulse Pulse Resp BP Pulse Ox O2 Del Method 09/06/22 09:33 88 96 Room Air 09/06/22 07:25 Room Air 09/06/22 07:17 36.5 C 96 H 16 110/77 94 Room Air Laboratory Results Laboratory Results WBC 23.62 K/ul (4.8-10.8) H 09/06/22 06:29 RBC 3.54 M/uL (3.93-5.22) L 09/06/22 06:29 Hgb 11.6 g/dl (12.0-16.0) L 09/06/22 06:29 Hct 34.8 % (34.1-44.9) 09/06/22 06:29 MCV 98.3 fL (80.0-100.0) 09/06/22 06:29 MCH 32.8 pg (25.0-34.0) 09/06/22 06:29 MCHC 33.3 g/dL (32.0-36.0) 09/06/22 06:29 RDW Std Deviation 52.6 fL (36.4-46.3) H 09/06/22 06:29 RDW Coeff of Carmen 14.6 % (11.5-14.5) H 09/06/22 06:29 Plt Count 464 K/uL (130-400) H 09/06/22 06:29 MPV 9.9 fL (9.4-12.3) 09/06/22 06:29 Immature Gran % (Auto) 4.2 % 09/06/22 06:29 Neut % (Auto) 65.5 % 09/06/22 06:29 Lymph % (Auto) 18.5 % 09/06/22 06:29 Towns % (Auto) 7.9 % 09/06/22 06:29 Eos % (Auto) 2.8 % 09/06/22 06:29 Baso % (Auto) 1.1 % 09/06/22 06:29 Neut # (Auto) 15.44 K/uL (1.4-6.5) H 09/06/22 06:29 Lymph # (Auto) 4.38 K/uL (1.2-3.4) H 09/06/22 06:29 Towns # (Auto) 1.86 K/uL (0.24-0.82) H 09/06/22 06:29 Eos # (Auto) 0.67 K/uL (0-0.50) H 09/06/22 06:29 Baso # (Auto) 0.27 K/uL (0-0.2) H 09/06/22 06:29 Immature Gran # (Auto) 1.00 K/uL (0.00-0.02) H 09/06/22 06:29 Absolute Nucleated RBC 0.02 K/uL (0-0) H 09/06/22 06:29 Nucleated RBC % (auto) 0.1 % 09/06/22 06:29 RBC Morphology Unremarkable 09/06/22 06:29 Polychromasia 1+ 09/05/22 Unknown ESR 51 mm/hr (0-20) H 09/06/22 06:29 PT 12.0 Seconds (9.0-12.0) 09/06/22 06:29 INR 1.1 (0.9-1.1) 09/06/22 06:29 Sodium 136 mmol/L (136-145) 09/06/22 06:29 Potassium 3.4 mmol/L (3.5-5.1) L 09/06/22 06:29 Chloride 103 mmol/L (98-107) 09/06/22 06:29 Carbon Dioxide 23 mmol/L (21-32) 09/06/22 06:29 Anion Gap 10 (3-11) 09/06/22 06:29 BUN 6 mg/dl (6-23) 09/06/22 06:29 Creatinine 0.68 mg/dl (0.6-1.2) 09/06/22 06:29 Est Cr Clr Drug Dosing 144.8 ml/min 09/06/22 06:29 Est GFR ( Amer) 132.3 ml/min 09/06/22 06:29 Est GFR (Non-Af Amer) 114.1 ml/min 09/06/22 06:29 BUN/Creatinine Ratio 8.8 (10-20) L 09/06/22 06:29 Glucose 91 mg/dl (70-99(Fasting)) 09/06/22 06:29 Calcium 7.9 mg/dl (8.5-10.1) L 09/06/22 06:29 Magnesium 1.6 mg/dl (1.7-2.4) L 09/06/22 06:29 Total Bilirubin 1.1 mg/dl (0.2-1.0) H 09/06/22 06:29 Direct Bilirubin 0.5 mg/dl (0-0.2) H 09/06/22 06:29 AST 91 U/L (13-39) H 09/06/22 06:29 ALT 19 U/L (7-52) 09/06/22 06:29 Alkaline Phosphatase 177 U/L (34-104) H 09/06/22 06:29 C-Reactive Protein 5.91 mg/dl (0-0.5) H 09/06/22 06:29 Total Protein 6.7 gm/dl (6.0-8.3) 09/06/22 06:29 Albumin 3.4 gm/dl (3.4-5.0) 09/06/22 06:29 Globulin 3.3 gm/dl (2.5-4.0) 09/06/22 06:29 Albumin/Globulin Ratio 1.0 (0.9-2) 09/06/22 06:29 Lipase 13 U/L (11-82) 09/05/22 Unknown Procalcitonin 0.87 ng/ml (0-0.5) H 09/05/22 19:52 Urine Color [place] 09/05/22 17:50 Urine Appearance Cloudy (Clear) A 09/05/22 17:50 Urine pH 5.5 (4.5-7.5) 09/05/22 17:50 Ur Specific [place] 1.025 (1.000-1.030) 09/05/22 17:50 Urine Protein 2+ (Negative) H 09/05/22 17:50 Urine Glucose (UA) Trace (Negative) H 09/05/22 17:50 Urine Ketones Trace (Negative) H 09/05/22 17:50 Urine Blood Negative (Negative) 09/05/22 17:50 Urine Nitrite Negative (Negative) 09/05/22 17:50 Urine Bilirubin 2+ (Negative) H 09/05/22 17:50 Urine Urobilinogen Negative (Negative) 09/05/22 17:50 Ur Leukocyte Esterase Trace (Negative) H 09/05/22 17:50 Urine RBC 0-4 /hpf (0-4) 09/05/22 17:50 Urine WBC 10-30 /hpf (0-5) H 09/05/22 17:50 Ur Epithelial Cells 5-10 /lpf (0-5) H 09/05/22 17:50 Urine Bacteria 2+ (Negative) H 09/05/22 17:50 Stl C. cayetanensis PCR Not Detected (NotDetected) 09/05/22 23:00 Stool Rotavirus A PCR Not Detected (NotDetected) 09/05/22 23:00 Stl Adenov F 40/41 PCR Not Detected (NotDetected) 09/05/22 23:00 Stool Astrovirus (PCR) Not Detected (NotDetected) 09/05/22 23:00 Stool Campylobacter PCR Not Detected (NotDetected) 09/05/22 23:00 Stool Cryptosporidium PCR Not Detected (NotDetected) 09/05/22 23:00 Stl E.coli Shiga Tox PCR Not Detected (NotDetected) 09/05/22 23:00 Stl Enterotoxigenic E PCR Not Detected (NotDetected) 09/05/22 23:00 Stool EPEC (PCR) Not Detected (NotDetected) 09/05/22 23:00 Stool EAEC (PCR) Not Detected (NotDetected) 09/05/22 23:00 Stl E. histolytica PCR Not Detected (NotDetected) 09/05/22 23:00 Stool Giardia Lamblia PCR Not Detected (NotDetected) 09/05/22 23:00 Stool Salmonella PCR Not Detected (NotDetected) 09/05/22 23:00 Stool Sapovirus (PCR) Not Detected (NotDetected) 09/05/22 23:00 Stl P. shigelloides PCR Not Detected (NotDetected) 09/05/22 23:00 Stl Shigella/EIEC PCR Not Detected (NotDetected) 09/05/22 23:00 St Y.enterocolitica PCR Not Detected (NotDetected) 09/05/22 23:00 Stool Vibrio (PCR) Not Detected (NotDetected) 09/05/22 23:00 Stl Vibrio cholerae PCR Not Detected (NotDetected) 09/05/22 23:00 Stl Norovirus GI/GII PCR Not Detected (NotDetected) 09/05/22 23:00 SARS-CoV-2, RNA, NAAT NEGATIVE (NEGATIVE) 09/05/22 18:37 Impressions Abdomen/Pelvis CT 09/05/22 16:[address] WITH IV CONTRAST CT DOSE: 1399.01 mGy.cm HISTORY: Acute generalized abdominal pain with leukocytosis abd pain wbc 28k TECHNIQUE: Multiaxial CT images of the abdomen and pelvis were performed following the IV administration of 81 cc of Optiray, A dose lowering technique was utilized adhering to the principles of ALARA. COMPARISON STUDY: CT abdomen and pelvis 03/31/2022, CT abdomen and pelvis 10/19/2019, 08/29/2011 FINDINGS: Clear lung bases. No pneumatosis or pneumoperitoneum. Unremarkable spleen, pancreas and adrenal glands. Cholecystectomy. Hepatomegaly with hepatic steatosis. Ill-defined 8 mm area of decreased attenuation involving the anterior liver on image 26 series 2 is likely secondary to more severe fatty infiltration. Patent portal vein. Unremarkable left kidney. Subcentimeter hypodense focus of the inferior pole left kidney likely represents a cyst. Complex 2 cm slightly hypodense lesion involving the cortex of the posterior interpolar right kidney on image 236 series 3 demonstrates a dependent 2 mm calcification. Partial distention of the urinary bladder with mild wall thickening. This is stable in size compared to the prior study. Mildly heterogeneous appearance of the uterus. Mild atherosclerosis of the aorta. No lymphadenopathy. No bowel obstruction or bowel wall thickening. There is partial distention of the large bowel. Appendectomy. No ascites or mesenteric inflammation. Unremarkable soft tissues. No acute fracture identified. IMPRESSION: 1. No acute intra-abdominal or intrapelvic abnormality identified. 2. No bowel obstruction or bowel wall thickening. 3. Appendectomy and cholecystectomy. 4. Hepatomegaly with hepatic steatosis. 5. Complex 2 cm lesion of the right kidney is stable compared to the 2020 exam. This may represent a complex cyst, however could be correlated with a nonemergent follow-up ultrasound. ACT 112: Negative or not required by law. The above report was generated using voice recognition software. It may contain grammatical, syntax or spelling errors. Electronically signed by: Jeancarlos Armas M.D. 09/05/2022 5:58 PM Liver Ultrasound 09/05/22 19:26 US liver HISTORY: 36 years-old Female alcoholic hepatitis, leukocytosis acute right upper quadrant abdominal pain COMPARISON: CT of same day TECHNIQUE: Multiple real-time sonographic images of the abdominal right upper quadrant were obtained assessing grayscale appearance and color flow FINDINGS: Pancreas is obscured by bowel gas. Hepatomegaly with hepatic steatosis. The liver measures 13 cm in length. No hepatic mass identified. Cholecystectomy. Normal common bile duct, 5 mm. No hydronephrosis of the right kidney. Mildly complex 2.0 x 1.5 x 1.8 cm cyst of the interpolar right kidney with layering milk of calcium. IMPRESSION: 1. Hepatomegaly with hepatic steatosis. 2. Cholecystectomy. 3. 2.0 cm mildly complex cyst of the right kidney. ACT 112: Negative or not required by law. The above report was generated using voice recognition software. It may contain grammatical, syntax or spelling errors. Electronically signed by: Jeancarlos Armas M.D. 09/05/2022 8:34 PM (1) Hypertension Hypertension type: unspecified Qualified Code(s): I10 - Essential (primary) hypertension
--- NOTE | 2022-09-06 13:33 | Gastrointestinal Consultation ---
Date of Consultation September 06, 2022 Assessment & Plan (1) Abdominal pain: (2) Abnormal LFTs: (3) Chronic diarrhea: (4) Alcohol abuse: Plan This is a 36-year-old female with PMH of chronic hypokalemia, hypertensive urgency, HTN, obesity with BMI of 37.8, opioid dependence in remission, history of seizure-like activity, bipolar I disorder, tobacco abuse, generalized anxiety disorder, posttraumatic stress disorder, who presents with abdominal pain and chronic diarrhea for the past 6 months. plan: -check C. diff as I do not see this [facility] Enteric stool panel was negative. -will plan for EGD and colonoscopy on Thursday -please ensure patient is on a clear liquid diet on thursday and please place orders for the patient to be prepped on thursday evening -NPO at midnight on thursday -she will need hepatology follow up on discharge given hepatic steatosis likely secondary to alcohol abuse. -for elevated LFTs this is likely 2/2 alcohol abuse but i do not think she has alcohol hepatitis with normal bilirubin and minimally elevated AST. complete serological work up for elevated LFTs which includes hep A total, hep A IGM, hep B surface antibody, hep B core ab total, hep B surface antigen, Hep C ab, smooth muscle antibody, anti-mitocondrial ab, ceruloplasmin, ferritin, iron studies including transferrin saturation, IGA, TTG IGA -PPI 40 mg BID -please record all bowel movements in chart to see if patient is truly having this much diarrhea in the hospital Sanju[facility] Mandujano, Gastroenterology and Hepatology History of Present Illness Reason for Consultation: abdominal pain, diarrhea, elevated LFTs Attending Physician: Maksim Curiel MD History of Present Illness This is a 36-year-old female with PMH of chronic hypokalemia, hypertensive urgency, HTN, obesity with BMI of 37.8, opioid dependence in remission, history of seizure-like activity, bipolar I disorder, tobacco abuse, generalized anxiety disorder, posttraumatic stress disorder, who presents with abdominal pain and chronic diarrhea. She states she has a long standing history of alcohol abuse and that she was drinking around 12 mini bottles of vodka daily for 3 years but quit abruptly on 08/07 as she wanted to get sober for her children and denies any alcohol since that time. She states that she was previously sober for 6 years until she started drinking in 2019 and that prior to those 6 years she drank heavily as well. States that she has had diffuse, generalized abdominal pain that has become unbearable as well as 13 watery BMs/daily that has been going on for 6 months. She saw her PCP for these symptoms and she had an enteric panel checked [facility] that was negative but I do not see that a C. diff was checked. She states that her PCP advised her to come to ER for worsening pain and further work up. While H+P states she was taking ibuprofen daily she denies to me any NSAID use and states she was only taking tylenol as she knew NSAIDs could cause PUD. She denies any blood in the stool, nausea, or vomiting just ongoing severe pain and watery stools that are not responding to immodium. She has never had an EGD or colonoscopy before. No fevers or chills or recent sick contact. On admission, wbc 23k, hgb 11.6, platelets 464, INR 1.1, K 3.4, AST 91, ALT 19, total bili 1.1, ALP 177. her LFTs are actually improving upon chart reviewing prior LFTs from earlier this month in [facility]. CT abd/pelvis and RUQ US with no acute findings and notable hepatic steatosis. She had outpatient EGD and colonoscopy scheduled 09/30 but does not think she can make it this long. Allergies Allergy/AdvReac Type Severity Reaction Status Date / Time nut - unspecified Allergy Severe Anaphylaxis Verified 06/19/22 01:35 Penicillins Allergy Severe Difficulty Verified 06/19/22 01:35 Breathing tree nut Allergy Severe Anaphylaxis Verified 06/19/22 01:35 morphine Allergy Intermediate Hives Verified 06/19/22 01:35 mushroom Allergy Intermediate Hives Verified 06/19/22 01:35 Home Medications Medication Instructions Recorded Confirmed Type epinephrine 0.3 mg/0.3 mL 0.3 mg IM DIRECTED PRN Allergic 05/13/18 09/05/22 History injection, auto-injector (EpiPen) Reaction amlodipine 10 mg tablet 10 mg PO DAILY 06/02/21 09/05/22 History spironolactone 25 mg tablet 25 mg PO QAM #30 tabs 04/05/22 09/05/22 Rx albuterol sulfate 90 mcg/actuation 2 puff inhalation Q4H PRN 06/19/22 09/05/22 History aerosol inhaler Shortness Of Breath Or Wheezing hydrochlorothiazide 25 mg tablet 25 mg PO QAM 06/19/22 09/05/22 History lisinopril 10 mg tablet 10 mg PO DAILY 06/19/22 09/05/22 History bupropion HCl 100 mg tablet,12 hr 100 mg PO AMHS 09/05/22 09/05/22 History sustained-release ibuprofen 800 mg tablet 800 mg PO TID 09/05/22 09/05/22 History lidocaine HCl 2 % mucosal solution 5 ml PO UD PRN Breakthrough Pain 09/05/22 09/05/22 History (Lidocaine Viscous) nystatin 100,000 unit/mL oral 5 ml PO QID 09/05/22 09/05/22 History suspension Patient History Medical History Alcohol abuse, unspecified (07/15/12) Anxiety state, unspecified (06/16/11) Bipolar disorder Headache Hypertension (07/15/12) Overdose of antipsychotic Surgical History Cholecystostomy care History of appendectomy (12/25/12) History of dental surgery Previous section 2007,2008,2009,2012 Tubal ligation status Family History Father Diabetes Hypertension Other Breast cancer No pertinent family history Social History Smoking Status: Current every day smoker Tobacco Type: Cigarettes Cigarettes Per Day: more than 1/2 a pack daily; Second Hand Exposure: No; Tobacco Cessation Education Requested by Patient: No Hx Alcohol Use: No Hx Substance Use: No Preferred Language: Jamaican Communication Ability: Effective 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 Beliefs That Will Affect Care: None marital status: Current Living Situation: Family current occupational status: unemployed current occupation: Prior employment at [employer] How many Children do You have: 4 Other Information That Helps Us Care for You: No Feels Safe at Home: Yes Safety Concerns: Feels Safe At This Time during the past year weight has: increased > 10 lbs Assistive Devices: Glasses Review of Systems Review of Systems: All systems reviewed & are unremarkable except as noted in HPI & below Physical Exam Constitutional: WD/WN, vitals as above Eyes: PERRL, conjunctivae normal, anicteric sclerae Respiratory: normal respiratory effort, lungs clear to auscultation Cardiovascular: RRR, no murmur, no edema Gastrointestinal (Abdomen): soft, diffuse tenderness to palpation, non- distended, normoactive bowel sounds Skin: no rashes, warm and dry Psychiatric: A+Ox3, euthymic affect Results & Data ([facility] [place]) Vital Signs (Past 12 Hours) Vital Signs Temp Pulse Pulse Resp BP Pulse Ox O2 Del Method 09/06/22 09:33 88 96 Room Air 09/06/22 07:25 Room Air 09/06/22 07:17 36.5 C 96 H 16 110/77 94 Room Air
--- NOTE | 2022-09-06 14:17 | XRay Report ---
XR chest 1V portable CLINICAL HISTORY: Rule out pneumonia TECHNIQUE: Single frontal radiograph of the chest was obtained. Comparison: Comparison is made to chest radiograph 06/01/2022 FINDINGS: No lines and tubes are seen. The cardiomediastinal silhouette is normal. Lungs are underinflated but clear. No evidence of pleural effusion or pneumothorax. IMPRESSION: No acute chest disease. ACT 112: Negative or not required by law. Electronically signed by: Adam Ruiz M.D. 09/06/2022 2:15 PM
[2022-09-06] MEDS: KETOROLAC TROMETHAMINE 15 MG/ML VIAL IV PRN (15:15)
[2022-09-06] MEDS: cefTRIAXone SODIUM 2,000 MG in DEXTROSE 5% 50 ML IV SCH (18:10)
[2022-09-06] MEDS: PANTOprazole 40 MG TAB PO SCH (20:34)
[2022-09-06] MEDS: traMADol HCL 50 MG TABLET PO PRN (23:22)
[2022-09-07] MEDS: HYDROmorphone INJ 0.5 MG/0.5 ML SYR IV PRN ×6 (00:17→23:53)
[2022-09-07 06:22] LABS: Basophils # (auto) 0.23 K/uL (0-0.2); Basophils % (auto) 1.2 %; Eosinophils # (auto) 0.63 K/uL (0-0.50); Eosinophils % (auto) 3.4 %; Hematocrit (blood only) 34.7 % (34.1-44.9); Hemoglobin 11.4 g/dl (12.0-16.0); Immature Granulocytes # (auto) 0.93 K/uL (0.00-0.02); Lymphocytes % (auto) 20.4 %; Mean Corpuscular Hgb Conc 32.9 g/dL (32.0-36.0); Mean Corpuscular Volume 100.6 fL (80.0-100.0); Mean Platelet Volume 9.7 fL (9.4-12.3); Monocytes # (auto) 1.37 K/uL (0.24-0.82); Monocytes % (auto) 7.4 %; Neutrophils # (auto) 11.65 K/uL (1.4-6.5); Neutrophils % (auto) 62.6 %; Platelet Count 462 K/uL (130-400); RDW Coefficient of Variation 14.6 % (11.5-14.5); RDW Standard Deviation 53.8 fL (36.4-46.3); Red Blood Count 3.45 M/uL (3.93-5.22); White Blood Count 18.61 K/ul (4.8-10.8)
[2022-09-07 06:28] LABS: Albumin Level 3.2 gm/dl (3.4-5.0); Bilirubin,Total 0.8 mg/dl (0.2-1.0); Calcium 7.9 mg/dl (8.5-10.1); Potassium 3.6 mmol/L (3.5-5.1)
[2022-09-07 06:34] LABS: BUN Creatinine Ratio 5.8 (10-20); Creatinine Clr Calc Pharmacy 189.3 ml/min; Est GFR (African American) 144.5 ml/min; Est GFR (Non-African American) 124.7 ml/min; Globulin 3.1 gm/dl (2.5-4.0); Total Protein 6.3 gm/dl (6.0-8.3)
[2022-09-07] MEDS: POTASSIUM CHLORIDE 10 MEQ in SODIUM CHLORIDE 0.9% 1000ML 1,000 ML IV SCH ×2 (08:01→17:28)
[2022-09-07] MEDS: MULTIVITAMIN TAB PO SCH (08:02)
[2022-09-07] MEDS: FOLIC ACID 400 MCG TAB PO SCH (08:02)
[2022-09-07] MEDS: lisinopril 10 MG TAB PO SCH (08:02)
[2022-09-07] MEDS: SPIRONOLACTONE 25 MG TAB PO SCH (08:02)
[2022-09-07] MEDS: THIAMINE HCL 100 MG TAB PO SCH (08:02)
[2022-09-07] MEDS: NICOTINE 21 MG/24 HR TDSY TD SCH (08:02)
[2022-09-07] MEDS: PANTOprazole 40 MG TAB PO SCH ×2 (08:02→20:14)
[2022-09-07] MEDS: traMADol HCL 50 MG TABLET PO PRN ×2 (10:01→20:14)
--- NOTE | 2022-09-07 13:52 | Hospitalist Progress Note ---
Date of Service September 07, 2022 Assessment & Plan (1) Abnormal LFTs: (2) Alcoholic hepatitis: (3) Alcohol abuse, unspecified: (4) Abdominal pain: Plan: Suspected alcoholic hepatitis Patient reports that she quit drinking on 08/07/2022. Used to drink 2 shots of vodka mixed with orange juice every day prior to that for 6 months. AST/ALT ratio in outpatient lab greater than [address] abdomen on August 29 showed severe hepatomegaly Outpatient hepatitis panel negative. Was sent to the emergency department by her primary care doctor due to leukocytosis, thrombocytosis and elevated LFTs CT abdomen done in admission shows hepatomegaly with hepatic steatosis. Prior cholecystectomy seen. Liver ultrasound confirms the same. PT/INR within normal limits. AST down trended. ALP 177. Plan; Continue supportive care with IV fluids, hydration and nutritional support. Underlying UTI treated with antibiotic. Pain control with Toradol, tramadol and Dilaudid. Work up for elevated lft sent. (5) Leukocytosis: (6) Thrombocytosis: (7) UTI (urinary tract infection): Plan: Patient was sent by her primary care doctor due to leukocytosis and thrombocytosis. Improvement in leukocytosis and thrombocytosis CRP and ESR elevated consistent with underlying inflammation or infection. Urine culture shows E.coli Pro-Bib elevated Chest x-ray negative for pneumonia Blood culture pending Continue on ceftriaxone for now; peripheral blood smear ordered. Leukocytosis likely due to infection(source UTI). We will follow-up on final result and culture. (8) Chronic diarrhea: Plan: Reports watery diarrhea ongoing for last 6 months. Frequency of diarrhea 8-10 episodes per day GI PCR panel negative C.diff negative Colonoscopy and endoscopy tomorrow am by GI (9) Hypertension: Plan: - Holding her amlodipine and hydrochlorothiazide for now. Continue on li sinopril and Aldactone. (10) Hypomagnesemia: (11) Hypokalemia: Plan: History of low magnesium and potassium. Will provide IV magnesium and oral potassium. Plan Full code DVT SCDs DispoHome after resolution of medical issues Admission and Anticipated Discharge Date Admission Date: September 05, 2022 Subjective Patient seen and examined at bedside. Reports pain is well controlled better. Still having diarrhea. Review of Systems Review of Systems: All systems reviewed & are unremarkable except as noted in Subjective Physical Exam Physical Exam: Constitutional: Awake, alert, oriented x3; in moderate distress due to right upper quadrant abdominal pain. Respiratory: normal respiratory effort, lungs clear to auscultation, no wheeze, rales, rhonchi. Normal insp/exp effort, no accessory muscle use Cardiovascular: RRR, no murmur, no edema Vessels: no JVD or carotid bruit Chest: normal inspection of chest Abdomen: Hepatomegaly present, tenderness present in right upper quadrant; slight improvement today Musculoskeletal: no cyanosis or clubbing, extremities motor strength 5/5 Skin: no rashes, warm and dry normal turgor Neurologic: PERRL, EOMI, accommodation nl, no face palsy, no dysarthria CN's II- XI intact bilaterally and moves all extremities Psychiatric: A+Ox3, euthymic affect Lymphatic: no cervical or axillary lymphadenopathy : deferred Results & Data Results & Data ([facility]) Vital Signs (Past 12 Hours) Vital Signs Temp Pulse Resp BP Pulse Ox O2 Del Method 09/07/22 08:15 Room Air 09/07/22 07:35 36.8 C 84 16 117/76 95 Room Air Laboratory Results Laboratory Results WBC 18.61 K/ul (4.8-10.8) H 09/07/22 05:59 RBC 3.45 M/uL (3.93-5.22) L 09/07/22 05:59 Hgb 11.4 g/dl (12.0-16.0) L 09/07/22 05:59 Hct 34.7 % (34.1-44.9) 09/07/22 05:59 MCV 100.6 fL (80.0-100.0) H 09/07/22 05:59 MCH 33.0 pg (25.0-34.0) 09/07/22 05:59 MCHC 32.9 g/dL (32.0-36.0) 09/07/22 05:59 RDW Std Deviation 53.8 fL (36.4-46.3) H 09/07/22 05:59 RDW Coeff of Carmen 14.6 % (11.5-14.5) H 09/07/22 05:59 Plt Count 462 K/uL (130-400) H 09/07/22 05:59 MPV 9.7 fL (9.4-12.3) 09/07/22 05:59 Immature Gran % (Auto) 5.0 % 09/07/22 05:59 Neut % (Auto) 62.6 % 09/07/22 05:59 Lymph % (Auto) 20.4 % 09/07/22 05:59 Yancey % (Auto) 7.4 % 09/07/22 05:59 Eos % (Auto) 3.4 % 09/07/22 05:59 Baso % (Auto) 1.2 % 09/07/22 05:59 Neut # (Auto) 11.65 K/uL (1.4-6.5) H 09/07/22 05:59 Lymph # (Auto) 3.80 K/uL (1.2-3.4) H 09/07/22 05:59 Yancey # (Auto) 1.37 K/uL (0.24-0.82) H 09/07/22 05:59 Eos # (Auto) 0.63 K/uL (0-0.50) H 09/07/22 05:59 Baso # (Auto) 0.23 K/uL (0-0.2) H 09/07/22 05:59 Immature Gran # (Auto) 0.93 K/uL (0.00-0.02) H 09/07/22 05:59 Absolute Nucleated RBC 0.02 K/uL (0-0) H 09/06/22 06:29 Nucleated RBC % (auto) 0.1 % 09/06/22 06:29 RBC Morphology Unremarkable 09/06/22 06:29 Polychromasia 1+ 09/05/22 Unknown ESR 51 mm/hr (0-20) H 09/06/22 06:29 PT 12.0 Seconds (9.0-12.0) 09/06/22 06:29 INR 1.1 (0.9-1.1) 09/06/22 06:29 Sodium 137 mmol/L (136-145) 09/07/22 05:59 Potassium 3.6 mmol/L (3.5-5.1) 09/07/22 05:59 Chloride 108 mmol/L (98-107) H 09/07/22 05:59 Carbon Dioxide 22 mmol/L (21-32) 09/07/22 05:59 Anion Gap 7 (3-11) 09/07/22 05:59 BUN 3 mg/dl (6-23) L 09/07/22 05:59 Creatinine 0.52 mg/dl (0.6-1.2) L 09/07/22 05:59 Est Cr Clr Drug Dosing 189.3 ml/min 09/07/22 05:59 Est GFR ( Amer) 144.5 ml/min 09/07/22 05:59 Est GFR (Non-Af Amer) 124.7 ml/min 09/07/22 05:59 BUN/Creatinine Ratio 5.8 (10-20) L 09/07/22 05:59 Glucose 89 mg/dl (70-99(Fasting)) 09/07/22 05:59 Calcium 7.9 mg/dl (8.5-10.1) L 09/07/22 05:59 Magnesium 1.6 mg/dl (1.7-2.4) L 09/06/22 06:29 Total Bilirubin 0.8 mg/dl (0.2-1.0) 09/07/22 05:59 Direct Bilirubin 0.5 mg/dl (0-0.2) H 09/06/22 06:29 AST 85 U/L (13-39) H 09/07/22 05:59 ALT 18 U/L (7-52) 09/07/22 05:59 Alkaline Phosphatase 150 U/L (34-104) H 09/07/22 05:59 C-Reactive Protein 5.91 mg/dl (0-0.5) H 09/06/22 06:29 Total Protein 6.3 gm/dl (6.0-8.3) 09/07/22 05:59 Albumin 3.2 gm/dl (3.4-5.0) L 09/07/22 05:59 Globulin 3.1 gm/dl (2.5-4.0) 09/07/22 05:59 Albumin/Globulin Ratio 1.0 (0.9-2) 09/07/22 05:59 Lipase 13 U/L (11-82) 09/05/22 Unknown Procalcitonin 0.87 ng/ml (0-0.5) H 09/05/22 19:52 Urine Color [place] 09/05/22 17:50 Urine Appearance Cloudy (Clear) A 09/05/22 17:50 Urine pH 5.5 (4.5-7.5) 09/05/22 17:50 Ur Specific [place] 1.025 (1.000-1.030) 09/05/22 17:50 Urine Protein 2+ (Negative) H 09/05/22 17:50 Urine Glucose (UA) Trace (Negative) H 09/05/22 17:50 Urine Ketones Trace (Negative) H 09/05/22 17:50 Urine Blood Negative (Negative) 09/05/22 17:50 Urine Nitrite Negative (Negative) 09/05/22 17:50 Urine Bilirubin 2+ (Negative) H 09/05/22 17:50 Urine Urobilinogen Negative (Negative) 09/05/22 17:50 Ur Leukocyte Esterase Trace (Negative) H 09/05/22 17:50 Urine RBC 0-4 /hpf (0-4) 09/05/22 17:50 Urine WBC 10-30 /hpf (0-5) H 09/05/22 17:50 Ur Epithelial Cells 5-10 /lpf (0-5) H 09/05/22 17:50 Urine Bacteria 2+ (Negative) H 09/05/22 17:50 Stl C. cayetanensis PCR Not Detected (NotDetected) 09/05/22 23:00 Stool Rotavirus A PCR Not Detected (NotDetected) 09/05/22 23:00 Stl Adenov F 40/41 PCR Not Detected (NotDetected) 09/05/22 23:00 Stool Astrovirus (PCR) Not Detected (NotDetected) 09/05/22 23:00 Stool Campylobacter PCR Not Detected (NotDetected) 09/05/22 23:00 Stl C. diff Tox B Gene Negative Cdiff Gene (Neg) 09/06/22 15:17 Stool Cryptosporidium PCR Not Detected (NotDetected) 09/05/22 23:00 Stl E.coli Shiga Tox PCR Not Detected (NotDetected) 09/05/22 23:00 Stl Enterotoxigenic E PCR Not Detected (NotDetected) 09/05/22 23:00 Stool EPEC (PCR) Not Detected (NotDetected) 09/05/22 23:00 Stool EAEC (PCR) Not Detected (NotDetected) 09/05/22 23:00 Stl E. histolytica PCR Not Detected (NotDetected) 09/05/22 23:00 Stool Giardia Lamblia PCR Not Detected (NotDetected) 09/05/22 23:00 Stool Salmonella PCR Not Detected (NotDetected) 09/05/22 23:00 Stool Sapovirus (PCR) Not Detected (NotDetected) 09/05/22 23:00 Stl P. shigelloides PCR Not Detected (NotDetected) 09/05/22 23:00 Stl Shigella/EIEC PCR Not Detected (NotDetected) 09/05/22 23:00 St Y.enterocolitica PCR Not Detected (NotDetected) 09/05/22 23:00 Stool Vibrio (PCR) Not Detected (NotDetected) 09/05/22 23:00 Stl Vibrio cholerae PCR Not Detected (NotDetected) 09/05/22 23:00 Stl Norovirus GI/GII PCR Not Detected (NotDetected) 09/05/22 23:00 SARS-CoV-2, RNA, NAAT NEGATIVE (NEGATIVE) 09/05/22 18:37 Impressions Abdomen/Pelvis CT 09/05/22 16:[address] WITH IV CONTRAST CT DOSE: 1399.01 mGy.cm HISTORY: Acute generalized abdominal pain with leukocytosis abd pain wbc 28k TECHNIQUE: Multiaxial CT images of the abdomen and pelvis were performed following the IV administration of 81 cc of Optiray, A dose lowering technique was utilized adhering to the principles of ALARA. COMPARISON STUDY: CT abdomen and pelvis 03/31/2022, CT abdomen and pelvis 10/19/2019, 08/29/2011 FINDINGS: Clear lung bases. No pneumatosis or pneumoperitoneum. Unremarkable spleen, pancreas and adrenal glands. Cholecystectomy. Hepatomegaly with hepatic steatosis. Ill-defined 8 mm area of decreased attenuation involving the anterior liver on image 26 series 2 is likely secondary to more severe fatty infiltration. Patent portal vein. Unremarkable left kidney. Subcentimeter hypodense focus of the inferior pole left kidney likely represents a cyst. Complex 2 cm slightly hypodense lesion involving the cortex of the posterior interpolar right kidney on image 236 series 3 demonstrates a dependent 2 mm calcification. Partial distention of the urinary bladder with mild wall thickening. This is stable in size compared to the prior study. Mildly heterogeneous appearance of the uterus. Mild atherosclerosis of the aorta. No lymphadenopathy. No bowel obstruction or bowel wall thickening. There is partial distention of the large bowel. Appendectomy. No ascites or mesenteric inflammation. Unremarkable soft tissues. No acute fracture identified. IMPRESSION: 1. No acute intra-abdominal or intrapelvic abnormality identified. 2. No bowel obstruction or bowel wall thickening. 3. Appendectomy and cholecystectomy. 4. Hepatomegaly with hepatic steatosis. 5. Complex 2 cm lesion of the right kidney is stable compared to the 2020 exam. This may represent a complex cyst, however could be correlated with a nonemergent follow-up ultrasound. ACT 112: Negative or not required by law. The above report was generated using voice recognition software. It may contain grammatical, syntax or spelling errors. Electronically signed by: Jeancarlos Armas M.D. 09/05/2022 5:58 PM Liver Ultrasound 09/05/22 19:26 US liver HISTORY: 36 years-old Female alcoholic hepatitis, leukocytosis acute right upper quadrant abdominal pain COMPARISON: CT of same day TECHNIQUE: Multiple real-time sonographic images of the abdominal right upper quadrant were obtained assessing grayscale appearance and color flow FINDINGS: Pancreas is obscured by bowel gas. Hepatomegaly with hepatic steatosis. The liver measures 13 cm in length. No hepatic mass identified. Cholecystectomy. Normal common bile duct, 5 mm. No hydronephrosis of the right kidney. Mildly complex 2.0 x 1.5 x 1.8 cm cyst of the interpolar right kidney with layering milk of calcium. IMPRESSION: 1. Hepatomegaly with hepatic steatosis. 2. Cholecystectomy. 3. 2.0 cm mildly complex cyst of the right kidney. ACT 112: Negative or not required by law. The above report was generated using voice recognition software. It may contain grammatical, syntax or spelling errors. Electronically signed by: Jeancarlos Armas M.D. 09/05/2022 8:34 PM Chest X-Ray 09/06/22 07:00 XR chest 1V portable CLINICAL HISTORY: Rule out pneumonia TECHNIQUE: Single frontal radiograph of the chest was obtained. Comparison: Comparison is made to chest radiograph 06/01/2022 FINDINGS: No lines and tubes are seen. The cardiomediastinal silhouette is normal. Lungs are underinflated but clear. No evidence of pleural effusion or pneumothorax. IMPRESSION: No acute chest disease. ACT 112: Negative or not required by law. Electronically signed by: Adam Ruiz M.D. 09/06/2022 2:15 PM (1) Hypertension Hypertension type: unspecified Qualified Code(s): I10 - Essential (primary) hypertension
[2022-09-07] MEDS: KETOROLAC TROMETHAMINE 15 MG/ML VIAL IV PRN (14:19)
[2022-09-07] MEDS ORDERED: LAVAGE SOLUTION 4000ML PO SCH (15:00)
[2022-09-07] MEDS: LAVAGE SOLUTION 4000ML PO SCH (17:46)
[2022-09-07] MEDS: cefTRIAXone SODIUM 2,000 MG in DEXTROSE 5% 50 ML IV SCH (18:15)
[2022-09-07] MEDS: ONDANSETRON INJ 2 MG/ML 2 ML VIAL IV PRN (18:31)
[2022-09-08] MEDS: POTASSIUM CHLORIDE 10 MEQ in SODIUM CHLORIDE 0.9% 1000ML 1,000 ML IV SCH ×4 (01:27→22:09)
[2022-09-08] MEDS: traMADol HCL 50 MG TABLET PO PRN ×3 (01:31→21:11)
[2022-09-08] MEDS: LAVAGE SOLUTION 4000ML PO SCH (06:33)
[2022-09-08] MEDS: HYDROmorphone INJ 0.5 MG/0.5 ML SYR IV PRN ×3 (06:34→18:34)
[2022-09-08] MEDS: ONDANSETRON INJ 2 MG/ML 2 ML VIAL IV PRN (06:43)
[2022-09-08 06:57] LABS: Hematocrit (blood only) 36.3 % (34.1-44.9); Hemoglobin 11.7 g/dl (12.0-16.0); Mean Corpuscular Hemoglobin 32.9 pg (25.0-34.0); Mean Corpuscular Hgb Conc 32.2 g/dL (32.0-36.0); Mean Platelet Volume 9.7 fL (9.4-12.3); Platelet Count 497 K/uL (130-400); RDW Coefficient of Variation 14.9 % (11.5-14.5); RDW Standard Deviation 56.1 fL (36.4-46.3); Red Blood Count 3.56 M/uL (3.93-5.22); White Blood Count 19.05 K/ul (4.8-10.8)
[2022-09-08 07:21] LABS: Basophils # (auto) 0.25 K/uL (0-0.2); Basophils % (auto) 1.3 %; Eosinophils # (auto) 0.66 K/uL (0-0.50); Eosinophils % (auto) 3.5 %; Immature Granulocytes # (auto) 0.93 K/uL (0.00-0.02); Immature Granulocytes % (auto) 4.9 %; Lymphocytes # (auto) 4.32 K/uL (1.2-3.4); Lymphocytes % (auto) 22.7 %; Monocytes # (auto) 1.35 K/uL (0.24-0.82); Monocytes % (auto) 7.1 %; Neutrophils # (auto) 11.54 K/uL (1.4-6.5); Neutrophils % (auto) 60.5 %; Polychromasia 1+
[2022-09-08 07:28] LABS: Albumin Level 3.1 gm/dl (3.4-5.0); Bilirubin,Total 0.8 mg/dl (0.2-1.0); Calcium 8.3 mg/dl (8.5-10.1); Creatinine Clr Calc Pharmacy 196.9 ml/min; Est GFR (African American) 146.4 ml/min; Est GFR (Non-African American) 126.3 ml/min; Immunoglobulin A 152.3 mg/dl (70-400); Total Protein 6.2 gm/dl (6.0-8.3)
[2022-09-08] MEDS: SPIRONOLACTONE 25 MG TAB PO SCH (07:29)
[2022-09-08] MEDS: NICOTINE 21 MG/24 HR TDSY TD SCH (07:29)
[2022-09-08] MEDS: PANTOprazole 40 MG TAB PO SCH (07:29)
[2022-09-08] MEDS: THIAMINE HCL 100 MG TAB PO SCH (07:29)
[2022-09-08] MEDS: FOLIC ACID 400 MCG TAB PO SCH (07:29)
[2022-09-08] MEDS: MULTIVITAMIN TAB PO SCH (07:29)
[2022-09-08] MEDS: lisinopril 10 MG TAB PO SCH (07:29)
[2022-09-08 07:38] LABS: Ferritin 291.1 ng/ml (8-388)
[2022-09-08 07:39] LABS: Globulin 3.1 gm/dl (2.5-4.0)
--- NOTE | 2022-09-08 10:58 | Gastroenterology Progress Note ---
Date of Service September 08, 2022 Assessment & Plan (1) Abdominal pain: (2) Abnormal LFTs: (3) Chronic diarrhea: (4) Alcohol abuse: Plan Patient is a 39 years old female with past medical history of alcohol abuse, opioid dependence in remission, seizure activity, bipolar, anxiety, PTSD who is followed for abdominal pain and chronic diarrhea. Stool studies are negative for infections. Noted LFTs are slightly elevated suspect likely related to alcohol use. - Keep PPI PO BID - NPO for EGD and colonoscopy evaluation today - F/U AIH serologies, ceruloplasmin, celiac ab. Ordered acute hepatitis panel and iron profile studies - F/U Hepatology in OP setting for hepatic steatosis. - ETOH abstinence, no APAP >2g daily if needed. Admission and Anticipated Discharge Date Admission Date: September 05, 2022 Supervising Physician Co-Signing Physician Notes This is a 36-year-old female with PMH of chronic hypokalemia, hypertensive urgency, HTN, obesity with BMI of 37.8, opioid dependence in remission, history of seizure-like activity, bipolar I disorder, tobacco abuse, generalized anxiety disorder, posttraumatic stress disorder, who presents with abdominal pain and chronic diarrhea for the past 6 months. Planning for EGD and colonoscopy today for further work up. Today abdomen soft and non-tender on exam. Sanjuana Mandujano, DO Gastroenterology and Hepatology Subjective Patient denies any nausea or vomiting. States that she still has some abdominal discomfort, diarrhea, moved her bowels 8 times yesterday. Denies any dark or tarry appearing stools, no rectal bleeding. Review of Systems Review of Systems: All systems reviewed & are unremarkable except as noted in HPI & below Physical Exam Constitutional: WD/WN, vitals as above well groomed, cooperative and comfortable Eyes: PERRL, conjunctivae normal, anicteric sclerae ENMT: external ear and nose normal, oropharynx normal Respiratory: normal respiratory effort, lungs clear to auscultation Cardiovascular: RRR, no murmur, no edema Gastrointestinal (Abdomen): normal bowel sounds, soft, nontender, no hepatosplenomegaly Skin: no rashes, warm and dry no jaundice Psychiatric: A+Ox3, euthymic affect Lymphatic: no lymphedema Results & Data ([facility]) Vital Signs (Past 12 Hours) Vital Signs Temp Pulse Resp BP Pulse Ox O2 Del Method 01/23/23 07:29 36.5 C 94 H 16 125/88 94 Room Air
--- NOTE | 2022-09-08 14:07 | Anesthesiology Consultation ---
Date of Service September 08, 2022 Assessment & Plan (1) Encounter for pre-operative examination: Chart Review Chart Review: Acceptable Risk for Surgery and Patient NOT seen in Pre Admission Testing Cardiology visit 03/2022: Assessment & Plan (1) Stroke-like symptoms: (2) Hypertensive urgency: (3) Palpitations: (4) Hypertensive heart disease: Plan Hypertensive urgency History of hypertension, hypertensive heart disease Secondary work-up negative in Agree with resumption of lisinopril and amlodipine. Reduced hydrochlorothiazide dosing to 12.5 mg/day, RE: mild hyponatremia. Resume spironolactone 25 mg/day for now Add low-dose carvedilol, 3.125 mg twice per day for blood pressure and heart rate control. Nonpharmacologic treatment of hypertension discussed - weight loss, sodium restriction, reduced in alcohol intake, daily aerobic exercise Further recommendations pending the above, evaluation by Dr. Pereira, patient's ongoing hospitalization Consults Requested none History Surgery Operation Date: 09/08/22 16:30 Proposed Procedures p Colonoscopy EGD Nazia Mandujano, Height/Weight Height: 5 ft 6 in Weight: 107.7 kg Allergies Allergy/AdvReac Type Severity Reaction Status Date / Time nut - unspecified Allergy Severe Anaphylaxis Verified 09/08/22 14:23 Penicillins Allergy Severe Difficulty Verified 09/08/22 14:23 Breathing tree nut Allergy Severe Anaphylaxis Verified 09/08/22 14:23 morphine Allergy Intermediate Hives Verified 09/08/22 14:23 mushroom Allergy Intermediate Hives Verified 09/08/22 14:23 Medications Home Medications Medication Instructions Recorded Confirmed Last Taken epinephrine 0.3 mg/0.3 mL 0.3 mg IM DIRECTED PRN Allergic 05/13/18 09/05/22 01/26/21 injection, auto-injector (EpiPen) Reaction amlodipine 10 mg tablet 10 mg PO DAILY 06/02/21 09/05/22 04/09/22 spironolactone 25 mg tablet 25 mg PO QAM #30 tabs 04/05/22 09/05/22 04/09/22 albuterol sulfate 90 mcg/actuation 2 puff inhalation Q4H PRN 06/19/22 09/05/22 Unknown aerosol inhaler Shortness Of Breath Or Wheezing hydrochlorothiazide 25 mg tablet 25 mg PO QAM 06/19/22 09/05/22 Unknown lisinopril 10 mg tablet 10 mg PO DAILY 06/19/22 09/05/22 Unknown bupropion HCl 100 mg tablet,12 hr 100 mg PO AMHS 09/05/22 09/05/22 Unknown sustained-release ibuprofen 800 mg tablet 800 mg PO TID 09/05/22 09/05/22 Unknown lidocaine HCl 2 % mucosal solution 5 ml PO UD PRN Breakthrough Pain 09/05/22 09/05/22 Unknown (Lidocaine Viscous) nystatin 100,000 unit/mL oral 5 ml PO QID 09/05/22 09/05/22 Unknown suspension Active Medications Generic Name Dose Route Start Last Admin Trade Name Freq PRN Reason Stop Dose Admin Folic Acid 400 mcg 09/06/22 09:00 09/08/22 07:29 Folic Acid 400 Mcg Tab PO 10/06/22 08:59 400 mcg QAM VANIA Administration Hydromorphone HCl 0.5 mg 09/07/22 18:00 09/08/22 12:35 Hydromorphone Inj 0.5 Mg/0.5 Ml Syr IV 09/21/22 17:59 0.5 mg Q6H PRN Administration Severe Pain Ceftriaxone Sodium 2,000 mg/ 70 mls @ 100 mls/hr 09/06/22 18:00 09/07/22 20:10 Dextrose IV 09/15/22 17:59 Infused Q24H VANIA Infusion Protocol Potassium Chloride 10 meq/ 1,005 mls @ 125 mls/hr 09/05/22 21:25 09/08/22 11:00 Sodium Chloride IV 10/05/22 21:24 125 mls/hr .Q8H3M VANIA Administration Ketorolac Tromethamine 15 mg 09/06/22 10:10 09/07/22 14:19 Ketorolac Tromethamine 15 Mg/Ml Vial IV 09/11/22 10:09 15 mg Q6H PRN Administration Mild Pain Lisinopril 10 mg 09/06/22 09:00 09/08/22 07:29 Lisinopril 10 Mg Tab PO 10/06/22 08:59 10 mg DAILY VANIA Administration Miscellaneous 1 each 09/06/22 08:59 09/08/22 07:29 Remove Nicoderm Patch N/A 10/06/22 08:58 1 each DAILY@0859 VANIA Administration Multivitamins 1 tab 09/06/22 09:00 09/08/22 07:29 Multivitamin Tab PO 10/06/22 08:59 1 tab QAM VANIA Administration Nicotine 21 mg 09/06/22 09:00 09/08/22 07:29 Nicotine 21 Mg/24 Hr Tdsy TD 10/06/22 08:59 21 mg QAM VANIA Administration Ondansetron HCl 4 mg 09/05/22 21:25 09/08/22 06:43 Ondansetron Inj 2 Mg/Ml 2 Ml Vial IV 10/05/22 21:24 4 mg Q4H PRN Administration Nausea And Vomiting Pantoprazole Sodium 40 mg 09/06/22 21:00 09/08/22 07:29 Pantoprazole 40 Mg Tab PO 10/06/22 20:59 40 mg BID VANIA Administration Polyethylene Glycol/Electrolytes 8 dose 09/07/22 18:00 09/08/22 06:33 Lavage Solution 4000ml PO 8 dose TODAY@18 VANIA Administration Spironolactone 25 mg 09/06/22 09:00 09/08/22 07:29 Spironolactone 25 Mg Tab PO 10/06/22 08:59 25 mg QAM VANIA Administration Thiamine HCl 100 mg 09/06/22 09:00 09/08/22 07:29 Thiamine Hcl 100 Mg Tab PO 10/06/22 08:59 100 mg QAM VANIA Administration Tramadol HCl 50 mg 09/06/22 10:11 09/08/22 11:06 Tramadol Hcl 50 Mg Tablet PO 10/06/22 10:10 50 mg Q6H PRN Administration moderate pain Past Medical History Medical History Alcohol abuse, unspecified (07/15/12) Anxiety state, unspecified (06/16/11) Bipolar disorder Headache Hypertension (07/15/12) Overdose of antipsychotic Assessment & Plan (1) Abnormal LFTs: (2) Alcoholic hepatitis: (3) Alcohol abuse, unspecified: (4) Abdominal pain: Plan: Suspected alcoholic hepatitis Patient reports that she quit drinking on 08/07/2022. Used to drink 2 shots of vodka mixed with orange juice every day prior to that for 6 months. AST/ALT ratio in outpatient lab greater than [address] abdomen on August 29 showed severe hepatomegaly Outpatient hepatitis panel negative. Was sent to the emergency department by her primary care doctor due to leukocytosis, thrombocytosis and elevated LFTs CT abdomen done in admission shows hepatomegaly with hepatic steatosis. Prior cholecystectomy seen. Liver ultrasound confirms the same. Past Family History Family History Father Diabetes Hypertension Other Breast cancer No pertinent family history Past Surgical History Surgical History Cholecystostomy care History of appendectomy (12/25/12) History of dental surgery Previous section 2007,2008,2009,2012 Tubal ligation status Social History Smoking Status: Current every day smoker tobacco type: cigarettes Smoking cigarettes per day: more than 1/2 a pack daily Hx Alcohol Use: No Alcohol type: beer and wine alcohol intake frequency: a few times a week Hx Substance Use: No substance use type: marijuana and crack/cocaine Substance Use Type Other:: medical marijuana Last Used Substance: Unknown Last Used Substance Other:: Medical Marijuana yesterday. Hallucinogens 10 years ago Physical Exam Vital Signs Last Vital Signs Temp 37 C 09/08/22 14:26 Pulse 80 09/08/22 14:26 Resp 18 09/08/22 14:26 BP 151/96 H 09/08/22 14:26 Pulse Ox 96 09/08/22 14:26 O2 Del Method 09/08/22 14:26 Testing Laboratory Results 09/08/22 06:23 09/08/22 06:23 PT 12.0 Seconds (9.0-12.0) 09/06/22 06:29 INR 1.1 (0.9-1.1) 09/06/22 06:29 Urine Color [place] 09/05/22 17:50 Urine Appearance Cloudy (Clear) A 09/05/22 17:50 Urine pH 5.5 (4.5-7.5) 09/05/22 17:50 Ur Specific [place] 1.025 (1.000-1.030) 09/05/22 17:50 Urine Protein 2+ (Negative) H 09/05/22 17:50 Urine Glucose (UA) Trace (Negative) H 09/05/22 17:50 Urine Ketones Trace (Negative) H 09/05/22 17:50 Urine Nitrite Negative (Negative) 09/05/22 17:50 Ur Leukocyte Esterase Trace (Negative) H 09/05/22 17:50 Urine RBC 0-4 /hpf (0-4) 09/05/22 17:50 Urine WBC 10-30 /hpf (0-5) H 09/05/22 17:50 Ur Epithelial Cells 5-10 /lpf (0-5) H 09/05/22 17:50 09/05/22 19:52 Aerobic Blood Culture - Preliminary Blood No growth in Aerobic bottle after 48 hours. Anaerobic Blood Culture - Preliminary No growth in Anaerobic bottle after 48 hours. 09/05/22 19:52 Aerobic Blood Culture - Preliminary Blood No growth in Aerobic bottle after 48 hours. Anaerobic Blood Culture - Preliminary No growth in Anaerobic bottle after 48 hours. 09/05/22 17:50 Urine Culture - Final Urine,Clean Catch Escherichia coli Electrocardiogram Date: 06/19/22 DICTATED BY:Zeferino Salazar MD Test Reason : Blood Pressure : / mmHG Vent. Rate : 098 BPM Atrial Rate : 098 BPM P-R Int : 146 ms QRS Dur : 108 ms QT Int : 380 ms P-R-T Axes : 073 043 077 degrees QTc Int : 485 ms Normal sinus rhythm Possible Left atrial enlargement Incomplete right bundle branch block Poor R wave progression, consider anterior IA vs. lead placement vs. LVH Abnormal ECG When compared with ECG of 10-APR-2022 07:16, Nonspecific T wave abnormality now evident in Anterolateral leads Confirmed by Zeferino Salazar ([id number]) on 06/19/2022 12:04:40 PM Echocardiogram Date: 04/04/22 EF 60-65% Mild LVH Grade 1 DD No valvular pathology
[2022-09-08] MEDS ORDERED: LIDOCAINE 2% MPF LOCAL 5 ML VIAL INFIL ONE (14:38)
[2022-09-08] MEDS ORDERED: PROPOFOL IV EMULSION 10 MG/ML 20 ML VIAL IV ONE ×3 (14:38→15:32)
--- NOTE | 2022-09-08 15:33 | GI REPORT ---
Patient Name: Brigette Patel Procedure Date: 09/08/2022 2:45 PM Date of : 1985 Admit Type: Inpatient Age: 36 Gender: Female Attending MD: Sanjuana Mandujano DO, Procedure: Colonoscopy Providers: Sanjuana Mandujano DO Referring MD: Merced Lang Indications: Chronic diarrhea Patient Profile: This is a 36 year old female. Refer to note in patient chart for documentation of history and physical. Medicines: Monitored Anesthesia Care Complications: No immediate complications. Estimated Blood Loss: Estimated blood loss was minimal. Procedure: Pre-Anesthesia Assessment: - Prior to the procedure, a History and Physical was performed, and patient medications and allergies were reviewed. The risks and benefits of the procedure and the sedation options and risks were discussed with the patient. All questions were answered and informed consent was obtained. Patient identification and proposed procedure were verified by the physician, the nurse and the brick paving checker in the procedure room. Mental Status Examination: alert and oriented. Airway Examination: Mallampati Class II (the uvula but not tonsillar pillars visualized). Respiratory Examination: clear to auscultation. CV Examination: RRR, no murmurs, no S3 or S4. Prophylactic Antibiotics: The patient does not require prophylactic antibiotics. Prior Anticoagulants: The patient has taken no anticoagulant or antiplatelet agents. ASA Grade Assessment: III - A patient with severe systemic disease. After reviewing the risks and benefits, the patient was deemed in satisfactory condition to undergo the procedure. The anesthesia plan was to use monitored anesthesia care (MAC). Immediately prior to administration of medications, the patient was re-assessed for adequacy to receive sedatives. The physical status of the patient was re-assessed after the procedure. After I obtained informed consent, the scope was passed under direct vision. Throughout the procedure, the patient's blood pressure, pulse, and oxygen saturations were monitored continuously. The scope was introduced through the anus and advanced to the terminal ileum, with identification of the appendiceal orifice and IC valve. The colonoscopy was performed without difficulty. The patient tolerated the procedure well. The quality of the bowel preparation was fair. The terminal ileum, ileocecal valve, appendiceal orifice, and rectum were photographed. Findings: Hemorrhoids were found on perianal exam. A few small and large-mouthed diverticula were found in the entire colon. A 4 mm polyp was found in the cecum. The polyp was sessile. The polyp was removed with a cold snare. Resection and retrieval were complete. A 2 mm polyp was found in the ascending colon. The polyp was sessile. The polyp was removed with a cold biopsy forceps. Resection and retrieval were complete. Biopsies for histology were taken with a cold forceps for evaluation of microscopic colitis. Impression: - Preparation of the colon was fair. - Hemorrhoids found on perianal exam. - Diverticulosis in the entire examined colon. - One 4 mm polyp in the cecum, removed with a cold snare. Resected and retrieved. - One 2 mm polyp in the ascending colon, removed with a cold biopsy forceps. Resected and retrieved. - Biopsies obtained for microscopic colitis Recommendation: - Patient has a contact number available for emergencies. The signs and symptoms of potential delayed complications were discussed with the patient. Return to normal activities tomorrow. Written discharge instructions were provided to the patient. - The patient will be observed post-procedure, until all discharge criteria are met. - Discharge patient to home (with escort). - Resume previous diet. - Continue present medications. - Await pathology results. - Repeat colonoscopy in 3 years for surveillance given fair prep. Sanjuana Mandujano, 09/08/2022 3:33:17 PM Note Initiated On: 09/08/2022 2:45 PM Number of Addenda: 0 I attest to the content of the Intraoperative Record and orders documented therein, exceptions below {[id number]}
--- NOTE | 2022-09-08 15:38 | GI REPORT ---
Patient Name: Brigette Patel Procedure Date: 09/08/2022 2:45 PM Date of : 1985 Admit Type: Inpatient Age: 36 Gender: Female Attending MD: Sanjuana Mandujano DO, Procedure: Upper GI endoscopy Providers: Sanjuana Mandujano DO Referring MD: Merced Lang Indications: Generalized abdominal pain, Diarrhea Patient Profile: This is a 36 year old female. Refer to note in patient chart for documentation of history and physical. Medicines: Monitored Anesthesia Care Complications: No immediate complications. Estimated Blood Loss: Estimated blood loss was minimal. Procedure: Pre-Anesthesia Assessment: - Prior to the procedure, a History and Physical was performed, and patient medications and allergies were reviewed. The risks and benefits of the procedure and the sedation options and risks were discussed with the patient. All questions were answered and informed consent was obtained. Patient identification and proposed procedure were verified by the physician, the nurse and the paint pourer in the procedure room. Mental Status Examination: alert and oriented. Airway Examination: Mallampati Class II (the uvula but not tonsillar pillars visualized). Respiratory Examination: clear to auscultation. CV Examination: RRR, no murmurs, no S3 or S4. Prophylactic Antibiotics: The patient does not require prophylactic antibiotics. Prior Anticoagulants: The patient has taken no anticoagulant or antiplatelet agents. ASA Grade Assessment: III - A patient with severe systemic disease. After reviewing the risks and benefits, the patient was deemed in satisfactory condition to undergo the procedure. The anesthesia plan was to use monitored anesthesia care (MAC). Immediately prior to administration of medications, the patient was re-assessed for adequacy to receive sedatives. The physical status of the patient was re-assessed after the procedure. After obtaining informed consent, the endoscope was passed under direct vision. Throughout the procedure, the patient's blood pressure, pulse, and oxygen saturations were monitored continuously. The Endoscope was introduced through the mouth, and advanced to the second part of duodenum. The upper GI endoscopy was accomplished without difficulty. The patient tolerated the procedure well. Findings: The Z-line was regular and was found 36 cm from the incisors. LA Grade A (one or more mucosal breaks less than 5 mm, not extending between tops of 2 mucosal folds) esophagitis with no bleeding was found. Portal hypertensive gastropathy was found in the gastric body. The exam of the stomach was otherwise normal. Biopsies were taken with a cold forceps in the gastric body, at the incisura and in the gastric antrum for Helicobacter pylori testing. The duodenal bulb and second portion of the duodenum were normal. Biopsies for histology were taken with a cold forceps for evaluation of celiac disease. Impression: - Z-line regular, 36 cm from the incisors. - LA Grade A esophagitis with no bleeding. - Concern for portal hypertensive gastropathy on exam. - Normal duodenal bulb and second portion of the duodenum. Biopsied. - Biopsies were taken with a cold forceps for Helicobacter pylori testing. Recommendation: - [facility] care. - Resume previous diet. - Continue present medications. - PPI 40 mg once daily - Await pathology results. - Recommend outpatient fibroscan given history of heavy alcohol use and concern for PHG on exam to assess for advanced fibrosis. Sanjuana Mandujano, 09/08/2022 3:37:32 PM Note Initiated On: 09/08/2022 2:45 PM Number of Addenda: 0 I attest to the content of the Intraoperative Record and orders documented therein, exceptions below {[id number]}
--- NOTE | 2022-09-08 15:43 | Anesthesiology Progress Note ---
Date of Service September 08, 2022 Anesthesia Post Procedure Vital Signs Vital Signs: Temp Pulse Pulse Resp BP Pulse Ox O2 Del Method 09/08/22 15:40 83 18 131/94 95 Room Air 09/08/22 15:24 78 18 104/73 94 Room Air 09/08/22 14:26 37 C 80 80 18 151/96 H 96 Room Air 09/08/22 07:29 36.5 C 94 H 16 125/88 94 Room Air 09/07/22 22:21 36.7 C 85 18 119/81 96 Room Air 09/07/22 20:20 Room Air Pain Intensity Right Abdomen: Pain Intensity: 5 Transfer of Care Handoff Completed per policy Notes Mental Status: alert / awake / arousable and participated in evaluation Patient Amnestic to Procedure: Yes Nausea / Vomiting: adequately controlled Pain: adequately controlled Airway Patency, RR, SpO2: stable & adequate BP & HR: stable & adequate Hydration State: stable & adequate Anesthetic Complications: no major complications apparent and Pt Satisfied with anesthetic care
--- NOTE | 2022-09-08 16:33 | Hospitalist Progress Note ---
Date of Service September 08, 2022 Assessment & Plan (1) Abnormal LFTs: (2) Alcoholic hepatitis: (3) Alcohol abuse, unspecified: (4) Abdominal pain: Plan: Suspected alcoholic hepatitis Patient reports that she quit drinking on 08/07/2022. Used to drink 2 shots of vodka mixed with orange juice every day prior to that for 6 months. AST/ALT ratio in outpatient lab greater than [address] abdomen on August 29 showed severe hepatomegaly Outpatient hepatitis panel negative. Was sent to the emergency department by her primary care doctor due to leukocytosis, thrombocytosis and elevated LFTs CT abdomen done in admission shows hepatomegaly with hepatic steatosis. Prior cholecystectomy seen. Liver ultrasound confirms the same. PT/INR within normal limits. Plan; Continue supportive care with IV fluids, hydration and nutritional support. Underlying UTI treated with antibiotic. Pain control with Toradol, tramadol and Dilaudid. Work up for elevated lft sent. (5) Leukocytosis: (6) Thrombocytosis: (7) UTI (urinary tract infection): Plan: Patient was sent by her primary care doctor due to leukocytosis and thrombocytosis. Improvement in leukocytosis and thrombocytosis CRP and ESR elevated consistent with underlying inflammation or infection. Urine culture shows E.coli; sensitive to ceftriaxone. Pro-Bib elevated Chest x-ray negative for pneumonia Blood culture no growth Continue on ceftriaxone for now; Leukocytosis likely due to infection(source UTI). (8) Esophagitis: (9) Chronic diarrhea: Plan: Reports watery diarrhea ongoing for last 6 months. Frequency of diarrhea 8-10 episodes per day GI PCR panel negative C.diff negative Endoscopy done on September 08; grade A esophagitis with no bleeding. Concern for portal hypertensive gastropathy. Colonoscopy done in September 08; 4 mm polyp in the cecum; removed with cold snare. 2 mm polyp in ascending colon; removed. Biopsies for microscopic col itis obtained. (10) Hypertension: Plan: - Holding her amlodipine and hydrochlorothiazide for now. Continue on lisinopril and Aldactone. (11) Hypomagnesemia: (12) Hypokalemia: Plan: History of low magnesium and potassium. Will provide IV magnesium and oral potassium. Plan Full code DVT SCDs DispoHome after resolution of medical issues Admission and Anticipated Discharge Date Admission Date: September 05, 2022 Subjective Patient seen and examined at bedside. Reports that her abdominal pain has improved compared to previous days. Review of Systems Review of Systems: All systems reviewed & are unremarkable except as noted in Subjective Physical Exam Physical Exam: Constitutional: Awake, alert, oriented x3; in moderate distress due to right upper quadrant abdominal pain. Respiratory: normal respiratory effort, lungs clear to auscultation, no wheeze, rales, rhonchi. Normal insp/exp effort, no accessory muscle use Cardiovascular: RRR, no murmur, no edema Vessels: no JVD or carotid bruit Chest: normal inspection of chest Abdomen: Hepatomegaly present, tenderness present in right upper quadrant; improved compared to admission. Musculoskeletal: no cyanosis or clubbing, extremities motor strength 5/5 Skin: no rashes, warm and dry normal turgor Neurologic: PERRL, EOMI, accommodation nl, no face palsy, no dysarthria CN's II- XI intact bilaterally and moves all extremities Psychiatric: A+Ox3, euthymic affect Lymphatic: no cervical or axillary lymphadenopathy : deferred Results & Data Results & Data ([facility]) Vital Signs (Past 12 Hours) Vital Signs Temp Pulse Pulse Resp BP Pulse Ox O2 Del Method 09/08/22 15:54 78 18 119/90 96 Room Air 09/08/22 15:40 83 18 131/94 95 Room Air 09/08/22 15:24 78 18 104/73 94 Room Air 09/08/22 14:26 37 C 80 80 18 151/96 H 96 Room Air 09/08/22 07:29 36.5 C 94 H 16 125/88 94 Room Air (1) Hypertension Hypertension type: unspecified Qualified Code(s): I10 - Essential (primary) hypertension
[2022-09-08] MEDS: cefTRIAXone SODIUM 2,000 MG in DEXTROSE 5% 50 ML IV SCH (17:52)
[2022-09-09] MEDS: HYDROmorphone INJ 0.5 MG/0.5 ML SYR IV PRN ×2 (00:40→07:36)
[2022-09-09] MEDS: POTASSIUM CHLORIDE 10 MEQ in SODIUM CHLORIDE 0.9% 1000ML 1,000 ML IV SCH (06:38)
[2022-09-09] MEDS: SPIRONOLACTONE 25 MG TAB PO SCH (07:58)
[2022-09-09] MEDS: MULTIVITAMIN TAB PO SCH (07:58)
[2022-09-09] MEDS: NICOTINE 21 MG/24 HR TDSY TD SCH (07:59)
[2022-09-09] MEDS: FOLIC ACID 400 MCG TAB PO SCH (07:59)
[2022-09-09] MEDS: lisinopril 10 MG TAB PO SCH (07:59)
[2022-09-09] MEDS: THIAMINE HCL 100 MG TAB PO SCH (07:59)
[2022-09-09 08:11] LABS: Hematocrit (blood only) 34.5 % (34.1-44.9); Hemoglobin 11.2 g/dl (12.0-16.0); Mean Corpuscular Hemoglobin 32.4 pg (25.0-34.0); Mean Corpuscular Hgb Conc 32.5 g/dL (32.0-36.0); Mean Corpuscular Volume 99.7 fL (80.0-100.0); Mean Platelet Volume 9.8 fL (9.4-12.3); Nucleated RBC # (auto) 0.02 K/uL (0-0); Nucleated RBC % (auto) 0.1 %; Platelet Count 496 K/uL (130-400); RDW Coefficient of Variation 14.9 % (11.5-14.5); RDW Standard Deviation 55.1 fL (36.4-46.3); Red Blood Count 3.46 M/uL (3.93-5.22); White Blood Count 18.62 K/ul (4.8-10.8)
[2022-09-09 08:35] LABS: Basophils # (auto) 0.21 K/uL (0-0.2); Basophils % (auto) 1.1 %; Eosinophils % (auto) 3.2 %; Immature Granulocytes # (auto) 0.65 K/uL (0.00-0.02); Immature Granulocytes % (auto) 3.5 %; Lymphocytes # (auto) 4.09 K/uL (1.2-3.4); Monocytes # (auto) 1.42 K/uL (0.24-0.82); Monocytes % (auto) 7.6 %; Neutrophils # (auto) 11.65 K/uL (1.4-6.5); Neutrophils % (auto) 62.6 %
[2022-09-09 08:51] LABS: Albumin Globulin Ratio 1.1 (0.9-2); Albumin Level 3.1 gm/dl (3.4-5.0); BUN Creatinine Ratio 3.9 (10-20); Bilirubin,Total 0.7 mg/dl (0.2-1.0); Calcium 8.2 mg/dl (8.5-10.1); Est GFR (African American) 145.4 ml/min; Est GFR (Non-African American) 125.5 ml/min; Globulin 2.9 gm/dl (2.5-4.0); Potassium 3.9 mmol/L (3.5-5.1)
[2022-09-09] MEDS ORDERED: PANTOprazole 40 MG TAB PO SCH (09:00)
[2022-09-09] MEDS: traMADol HCL 50 MG TABLET PO PRN (09:58)
--- NOTE | 2022-09-09 10:50 | Discharge Summary ---
Date of Service September 09, 2022 Admission HPI Per Admitting Provider This is a 36-year-old female with PMHx of chronic hypokalemia, hypertensive urgency, HTN, morbid obesity with BMI of 37.8, opioid dependence in remission, history of seizure-like activity, bipolar I disorder, tobacco abuse, generalized anxiety disorder, posttraumatic stress disorder, who presents with abdominal pain. She reports having significant abdominal pain in the right upper side which has been worsening specifically since last . It is nearly constant, with some sharp stabbing pain in nature. She has had diarrhea for the past 6 months which had negative outpatient workup. Reports 10-12 diarrhea movements daily, nearly all liquid with mucous. Denies any blood. She is taking ibuprofen 600 mg four times per day for the past week due to worsening abdominal pain. Her diet has been very poor recently. Pt recently stopped drinking all alcohol 1 month ago cold turkey, and then noticed night sweats where she was soaking the sheets. Pt also admits to chills but denies fevers. Pt thought this was due to alcohol stopping. Her drink of choice was vodka with orange juice ~12 shots per day which went on for 6 month time frame. She quit on 08/07/22 because her father was also working to stop drinking. Pt admits to feeling like she needs to pee and has increased urgency, no dysuria or hematuria. Admission Exam Per Admitting Provider Constitutional: No fever, sweats, + chills Eyes: No diplopia, no worsening or blurred vision ENT: normal hearing, no trouble swallowing Respiratory: No cough, sputum, dyspnea at rest or on exertion Cardiovascular: No chest pain, tightness or palpitations Abdomen: + As per HPI, + pain, +nausea, no vomiting, + diarrhea, no constipation Musculoskeletal: No joint pain, calf pain, swelling Neurologic: No weakness, numbness/tingling, or balance problems Psychiatric: + anxiety and depression on medication Skin: No rash or itch Principal Diagnosis Alcoholic Hepatitis Abnormal liver functions Alcohol abuse Abdominal Pain Esophagitis UTI elevated white blood cell count Chronic Diarrhea Low potassium and magnesium Discharge Exam Gen: WD/WN, NAD, A&O x3 HEENT: Normocephalic, atraumatic, conjunctivae moist, sclerae anicteric, mucous membranes moist. Lung: Clear to Auscultation bilaterally, no wheezes/rales/rhonchi Heart: Regular rate, regular rhythm, no murmurs, rubs, or gallops Abdomen: Obese, soft, mildly tender to palpation right upper quadrant, ND +BS x 4 Extremities: No edema Skin: Warm, no rash, negative turgor. Discharge Data Allergies Allergy/AdvReac Type Severity Reaction Status Date / Time nut - unspecified Allergy Severe Anaphylaxis Verified 09/08/22 14:23 Penicillins Allergy Severe Difficulty Verified 09/08/22 14:23 Breathing tree nut Allergy Severe Anaphylaxis Verified 09/08/22 14:23 morphine Allergy Intermediate Hives Verified 09/08/22 14:23 mushroom Allergy Intermediate Hives Verified 09/08/22 14:23 Consultations 09/05/22 18:34 ED Decision to Admit Stat 09/05/22 19:09 Consult Gastroenterology Routine Procedures Performed Operation Date: 09/08/22 16:30 Actual Procedures p EGD Biopsy Cytology - Sanjuana Mandujano DO s Colonoscopy Polypectomy - Sanjuana Mandujano DO Ordered Studies Abdomen/Pelvis CT 09/05/22 16:[address] WITH IV CONTRAST CT DOSE: 1399.01 mGy.cm HISTORY: Acute generalized abdominal pain with leukocytosis abd pain wbc 28k TECHNIQUE: Multiaxial CT images of the abdomen and pelvis were performed following the IV administration of 81 cc of Optiray, A dose lowering technique was utilized adhering to the principles of ALARA. COMPARISON STUDY: CT abdomen and pelvis 03/31/2022, CT abdomen and pelvis 10/19/2019, 08/29/2011 FINDINGS: Clear lung bases. No pneumatosis or pneumoperitoneum. Unremarkable spleen, pancreas and adrenal glands. Cholecystectomy. Hepatomegaly with hepatic steatosis. Ill-defined 8 mm area of decreased attenuation involving the anterior liver on image 26 series 2 is likely secondary to more severe fatty infiltration. Patent portal vein. Unremarkable left kidney. Subcentimeter hypodense focus of the inferior pole left kidney likely represents a cyst. Complex 2 cm slightly hypodense lesion involving the cortex of the posterior interpolar right kidney on image 236 series 3 demonstrates a dependent 2 mm calcification. Partial distention of the urinary bladder with mild wall thickening. This is stable in size compared to the prior study. Mildly heterogeneous appearance of the uterus. Mild atherosclerosis of the aorta. No lymphadenopathy. No bowel obstruction or bowel wall thickening. There is partial distention of the large bowel. Appendectomy. No ascites or mesenteric inflammation. Unremarkable soft tissues. No acute fracture identified. IMPRESSION: 1. No acute intra-abdominal or intrapelvic abnormality identified. 2. No bowel obstruction or bowel wall thickening. 3. Appendectomy and cholecystectomy. 4. Hepatomegaly with hepatic steatosis. 5. Complex 2 cm lesion of the right kidney is stable compared to the 2020 exam. This may represent a complex cyst, however could be correlated with a nonemergent follow-up ultrasound. ACT 112: Negative or not required by law. The above report was generated using voice recognition software. It may contain grammatical, syntax or spelling errors. Electronically signed by: Jeancarlos Armas M.D. 09/05/2022 5:58 PM Liver Ultrasound 09/05/22 19:26 US liver HISTORY: 36 years-old Female alcoholic hepatitis, leukocytosis acute right upper quadrant abdominal pain COMPARISON: CT of same day TECHNIQUE: Multiple real-time sonographic images of the abdominal right upper quadrant were obtained assessing grayscale appearance and color flow FINDINGS: Pancreas is obscured by bowel gas. Hepatomegaly with hepatic steatosis. The liver measures 13 cm in length. No hepatic mass identified. Cholecystectomy. Normal common bile duct, 5 mm. No hydronephrosis of the right kidney. Mildly complex 2.0 x 1.5 x 1.8 cm cyst of the interpolar right kidney with layering milk of calcium. IMPRESSION: 1. Hepatomegaly with hepatic steatosis. 2. Cholecystectomy. 3. 2.0 cm mildly complex cyst of the right kidney. ACT 112: Negative or not required by law. The above report was generated using voice recognition software. It may contain grammatical, syntax or spelling errors. Electronically signed by: Jeancarlos Armas M.D. 09/05/2022 8:34 PM Chest X-Ray 09/06/22 07:00 XR chest 1V portable CLINICAL HISTORY: Rule out pneumonia TECHNIQUE: Single frontal radiograph of the chest was obtained. Comparison: Comparison is made to chest radiograph 06/01/2022 FINDINGS: No lines and tubes are seen. The cardiomediastinal silhouette is normal. Lungs are underinflated but clear. No evidence of pleural effusion or pneumothorax. IMPRESSION: No acute chest disease. ACT 112: Negative or not required by law. Electronically signed by: Adam Ruiz M.D. 09/06/2022 2:15 PM Hospital Course (1) Abnormal LFTs: (2) Alcoholic hepatitis: (3) Alcohol abuse, unspecified: (4) Abdominal pain: This is a 36-year-old female with PMHx of chronic hypokalemia, hypertensive urgency, HTN, morbid obesity with BMI of 37.8, opioid dependence in remission, history of seizure-like activity, bipolar I disorder, tobacco abuse, generalized anxiety disorder, posttraumatic stress disorder, who presents with abdominal pain and diarrhea. Patient reported drinking 2 shots of vodka mixed with oranges every day for the past 6 months. She was diagnosed with suspected alcoholic hepatitis as AST to ALT ratio greater than 2. Outpatient CT scan of abdomen on August 29 showed severe hepatomegaly. Outpatient hepatitis panel is negative. She was sent to the ED from PCP due to leukocytosis, thrombocytosis and elevated LFTs. CT scan done this admission showed hepatomegaly with hepatic steatosis, prior cholecystectomy seen. Liver ultrasound confirmed the same findings. Her PT/INR within normal limits. During hospital stay her LFTs trended down and on day of discharge AST was 64 and ALT was 15. In regards to her leukocytosis her white blood cell count was 28,000 on day of admission. Her procalcitonin was elevated and urine culture was positive for E. coli. She was treated with IV ceftriaxone. It was pansensitive. Her white blood cell count trended down although still elevated on day of discharge at 18.62k. She will be discharged on oral cefdinir for additional 3 days to complete a 7-day course. Due to diarrhea she did undergo GI PCR panel and C. difficile which were both negative. She was seen and evaluated by gastroenterology who performed an endoscopy and colonoscopy. EGD was consistent with grade a esophagitis and concern for portal hypertensive gastropathy. It is recommended she take Protonix 40 mg once daily. Colonoscopy revealed 4 mm polyp in cecum removed with cold snare and a 2 mm polyp in ascending colon also removed. Biopsies were performed for microscopic colitis. Her hospital course was further complicated by hypomagnesemia and hypokalemia both of which were replaced. On day of discharge she felt improved and was tolerating regular diet. She is advised and educated to abstain from all alcohol as well as tobacco products. She agrees. On day of discharge her H&H was 11.2 and 34.5, platelet 496, to WBC 18.62k, AST 64, ALT 15, alk phos 136. She continues to have hepatitis panel as well as autoimmune serologies pending. It is recommended she follow closely with gastroenterology as well as hepatology as outpatient under the guidance of her PCP. She offers no acute concerns was educated on the above prior to discharge. Her abdominal pain has since resolved and she is no longer having diarrhea. (5) Leukocytosis: (6) Thrombocytosis: (7) UTI (urinary tract infection): (8) Esophagitis: (9) Chronic diarrhea: Reports watery diarrhea ongoing for last 6 months. (10) Hypertension: (11) Hypomagnesemia: (12) Hypokalemia: Total Time Total Time Spent Total Time Spent (In Minutes): 60 minutes Discharge Plan Discharge Items Patient Disposition: Home - Self-Care Reason For Visit: ABDOMINAL PAIN Discharge Diagnosis: Alcoholic Hepatitis Abnormal liver functions Alcohol abuse Abdominal Pain Esophagitis UTI elevated white blood cell count Chronic Diarrhea Low potassium and magnesium Condition on Discharge: Good Activity: Resume your previous activity Driving/Machine Use: Resume 1 day after discharge Non-emergency contact: Primary Care Provider and Air Carrier Inspector Call non-emergency contact if: you have any medication questions, your symptoms worsen, your pain is not controlled, your pain is worsening, your pain is unusual for you, your pain is concerning for you, you have a fever and your temperature is above 101 Follow-up/Referrals: Angelic Pereira, [Primary Care Provider] - (Date & Time 09/11/2022 2:00 PM Provider Yane Thomas MD [facility] ) Diet: Regular Addtl Attending Provider Instructions: MEDICATION CHANGES: Cefdinir 300 mg twice daily for an additional 3 days to complete treatment for UTI. Start as soon as you picker and sorter load and unload prescription. Pantoprazole 40 mg once daily for stomach protection, next dose 09/10/22 Recommend multivitamin once daily, next dose 09/10/22 Folic acid 400 mcg once daily, next dose 09/10/22 Thiamine, vitamin B1, 100 mg once daily, next dose 09/10/22 SUMMARY OF TEST RESULTS: You admitted to hospital with abdominal pain, abnormal liver functions and suspected alcoholic hepatitis. Your liver functions were elevated above the level of normal. On day of discharge they are trending down. Your AST was slightly elevated at 64, and your ALT was within normal range. You still have blood work pending to rule out other conditions that could cause abnormal liver functions. You had a colonoscopy and EGD. Colonoscopy revealed hemorrhoids, diverticulosis throughout entire colon, 1 4 mm polyp in cecum and 2 mm polyp in ascending colon which were both resected and sent for biopsy. It is recommended you have a repeat colonoscopy in 3 years. EGD revealed inflammation of esophagus without bleeding. It is recommended you take pantoprazole once daily for this. You had an elevated white blood cell count throughout hospital stay. You are found to have an E. coli UTI and was treated with antibiotics. You will be discharged to complete course of antibiotics. PENDING TEST RESULTS: Autoimmune work up for elevated liver functions Hepatitis panel Biopsies from EGD/Colonoscopy RECOMMENDATIONS FOR FOLLOW-UP: Please follow-up with primary care provider as scheduled You will need a repeat CBC and CMP to evaluate for elevated liver functions as well as white blood cell count. Your primary care provider and tobacco cloth reclaimer will need to follow-up with pending blood work and biopsies from hospitalization. Please complete antibiotic in its entirety. Please continue to take pantoprazole 40 mg once daily until discontinued by your tobacco cloth reclaimer. This is for inflammation of your esophagus. Please abstain from all alcohol and tobacco products. If you need to take Tylenol do not take more than 2,000mg daily. You will need repeat colonoscopy in 3 years. It is recommended you follow-up with gastroenterology regarding possible underlying liver disease due to heavy alcohol use. They are also recommending you see a liver specialist. It is recommended you have an outpatient FibroScan to assess for scarring of your liver. OTHER INSTRUCTIONS: Seek medical attention if you have: * temperature above 101 * chest pain or trouble breathing * abdominal pain, nausea, vomiting * diarrhea, dark stools or bloody stools * any unanswered questions or concerns Call 911 if symptoms are severe. Please take good care of yourself. It has been a pleasure taking care of you. Please take care of yourself. If you have any questions regarding your recent hospitalization please contact [facility] and request Andreia Branch @ [phone]. Gina Brizuela PA-C Pending Studies at Discharge: Yes Studies:: Hepatitis panel Autoimmune hepatitis work up Stand-Alone Forms: My [facility] [employer], Smoking Cessation Medications and DC Order Prescriptions: New pantoprazole 40 mg Tablet,Delayed Release (Dr/Ec) 40 mg PO DAILY Qty: 30 0RF folic acid 400 mcg Tablet 400 mcg PO QAM Qty: 30 0RF multivitamin with folic acid [Daily-Rajendra (with folic acid)] 400 mcg Tablet 1 tab PO QAM Qty: 30 0RF thiamine HCl (vitamin B1) 100 mg Tablet 100 mg PO QAM Qty: 30 0RF cefdinir 300 mg capsule 300 mg PO BID 3 Days Qty: 6 0RF Continued epinephrine [EpiPen] 0.3 mg/0.3 mL Auto-Injector 0.3 mg IM DIRECTED PRN (Reason: Allergic Reaction) Label Comments: pt says nothing has changed in a week since shes been here last Rx Instructions: for a severe reaction: Place oragne end against outer thigh,press firmly, hold in place for 10 seconds and go to the emergency room. amlodipine 10 mg Tablet 10 mg PO DAILY lisinopril 10 mg tablet 10 mg PO DAILY albuterol sulfate 90 mcg/actuation HFA aerosol inhaler 2 puff INHALATION Q4H PRN (Reason: Shortness Of Breath Or Wheezing) hydrochlorothiazide 25 mg tablet 25 mg PO QAM spironolactone 25 mg Tablet 25 mg PO QAM Qty: 30 0RF nystatin 100,000 unit/mL suspension 5 ml PO QID bupropion HCl 100 mg Tablet Sustained-Release 12 Hr 100 mg PO AMHS lidocaine HCl [Lidocaine Viscous] 2 % solution 5 ml PO UD PRN (Reason: Breakthrough Pain) Rx Instructions: swish and spit ibuprofen 800 mg Tablet 800 mg PO TID Rx Instructions: take with food Discharge Orders: Discharge Order (Routine); Ordered 09/09/22 Ordered By: Gina Davis/Other Patient Handouts: Celiac Disease Admission Data Admit Date/Time: 09/05/22 19:35 Attending Provider: Maksim Curiel Admit Provider: Maksim Curiel Primary Care Provider: Angelic Pereira Other Providers: Maksim Curiel ; Salvatore Ayala ; Wilfred Leyva ; Josette Rodriguez ; Clare Bean ; Kylie Carreon ; Anjali Kemp ; Donaldo Parker ; Jenaro Munoz ; Maricarmen Ornelas ; Gladys Castrejon ; rTey Ocampo ; Sandy Crawford ; Eleanor Caldera ; Bozena Hawkins ; Alexandria Morales ; Dilma Patterson ; Bryon Diane ; Damir Cunningham ; Sanjuana Mandujano ; Laura Pereira Jr ; Gina Brizuela Other Interventions: Discharge Summary Assessment (RN) Last Done: 09/09/22 10:56 Supervising Physician Co-Signing Physician Notes Patient seen and examined independently. Agree with above documentation by Gina Brizuela PA-C. Patient presented with abnormal liver enzymes, leukocytosis and thrombocytosis. She was also found to have chronic diarrhea. Underwent colonoscopy and endoscopy by GI; endoscopy shows esophagitis. Biopsy from colonoscopy sent. Improvement in leukocytosis and thrombocytosis noted. Peripheral blood smear was done; Repeat CBC as outpatient after completion of antibiotic course for UTI.
[2022-09-09 11:47] LABS: HBSAG NON-REACTIVE (NON-REACTIVE); Hepatitis A Antibody IgM NON-REACTIVE (NON-REACTIVE); Hepatitis B Core Antibody IgM NON-REACTIVE (NON-REACTIVE)
[2022-09-11 00:18] LABS: Anti Mitochondrial Antibody NEGATIVE (NEGATIVE); Ceruloplasmin 28 mg/dL (18-53); Transglutaminase, Tissue IgA <1.0 U/mL
== END 2022-09-09 11:41 | disposition home or self-care (01) | DRG 433 ==
LOC: ED 15:23 → 3W 19:35

== ENCOUNTER 2022-09-17 19:53 | Inpatient (IN) ==
[2022-09-17 21:03] LABS: Hematocrit (blood only) 39.6 % (37.0-47.0); Hemoglobin 13.3 g/dl (12.0-16.0); Mean Corpuscular Hemoglobin 32.5 pg (25.0-34.0); Mean Corpuscular Hgb Conc 33.6 g/dL (32.0-36.0); Mean Corpuscular Volume 96.8 fL (80.0-100.0); Mean Platelet Volume 9.8 fL (9.4-12.4); Nucleated RBC # (auto) 0.02 K/uL (0-0.12); Nucleated RBC % (auto) 0.1 %; Platelet Count 512 K/uL (130-400); RDW Coefficient of Variation 14.3 % (11.5-14.5); RDW Standard Deviation 50.3 fL (36.4-46.3); Red Blood Count 4.09 M/uL (4.20-5.40); White Blood Count 23.66 K/ul (4.8-10.8)
[2022-09-17 21:17] LABS: Albumin Globulin Ratio 1.1 (0.9-2); Albumin Level 4.1 gm/dl (3.4-5.0); Bilirubin,Total 0.9 mg/dl (0.2-1.0); Calcium 9.1 mg/dl (8.5-10.1); Creatinine Clr Calc Pharmacy 195.3 ml/min; Est GFR (African American) 146.4 ml/min; Est GFR (Non-African American) 126.3 ml/min; Globulin 3.8 gm/dl (2.5-4.0); Potassium 3.2 mmol/L (3.5-5.1); Total Protein 7.9 gm/dl (6.0-8.3)
[2022-09-17 21:22] LABS: Basophils # (auto) 0.28 K/uL (0-0.2); Basophils % (auto) 1.2 %; Eosinophils # (auto) 0.72 K/uL (0-0.50); Immature Granulocytes # (auto) 0.82 K/uL (0.01-0.20); Immature Granulocytes % (auto) 3.5 %; Lymphocytes # (auto) 4.78 K/uL (1.2-3.4); Lymphocytes % (auto) 20.2 %; Monocytes # (auto) 1.44 K/uL (0.11-0.59); Monocytes % (auto) 6.1 %; Neutrophils # (auto) 15.62 K/uL (1.40-6.50)
[2022-09-17] MEDS ORDERED: ONDANSETRON INJ 2 MG/ML 2 ML VIAL IV STA (22:06)
--- NOTE | 2022-09-17 22:10 | Emergency Department Note ---
Impression & Plan Right upper quadrant abdominal pain, Hepatomegaly, UTI (urinary tract infection) ED Provider Note NAME: CECILIA NIEVES AGE: 36 SEX: F : 1985 ARRIVES VIA: Walk-In INFORMANT: Patient, ED PROVIDER(S): Cal Salgado DO CHIEF COMPLAINT: Abdominal pain HPI: The patient is a 36-year-old female who presented to the emergency department for an evaluation of abdominal pain. The patient states that she has had right upper quadrant abdominal pain for 2 weeks. She was admitted to our facility recently with similar complaints. She was discharged and continued to have pain. The patient states that she saw her family doctor recently and had laboratory studies drawn. She was called today and told to go to the emergency department. She had no outpatient scanning. She did have a CAT scan here recently. She states that she was noted to have some sort of infection. She is unsure what kind of infection it was. She thinks it could have been a urinary tract infection. She denies having any dysuria or frequency. She denies having any recent trauma. ROS: See above HPI for pertinent positives & negatives. A total of 10 systems reviewed and were otherwise negative. PAST MEDICAL HISTORY: See Below PAST SURGICAL HISTORY: See Below FAMILY HISTORY: See Below SOCIAL HISTORY: See Below HOME MEDICATIONS: See Below ALLERGIES: See Below VITALS: See Below PHYSICAL EXAMINATION: GENERAL: Patient is awake alert in no acute distress patient is resting comfortably and showing no signs of anxiety EYES: The conjunctivae are clear. The pupils are round and reactive. EARS, NOSE, MOUTH AND THROAT: The nose is without any evidence of any deformity. Mucous membranes are moist. Tongue is midline. NECK: The neck is nontender and supple. RESPIRATORY: Normal respiratory effort is noted there is no evidence of wheezing rhonchi or rales CARDIOVASCULAR: Regular rate and rhythm noted there no murmurs rubs or gallops normal S1 normal S2. GASTROINTESTINAL: The abdomen is distended and diffusely tender. There is guarding in the right upper quadrant. MUSCULOSKELETAL/EXTREMITIES: There is no evidence of gross deformity full range of motion is noted in the hips and shoulders. SKIN: There is no obvious evidence of any rash. Pedal edema was noted bilaterally. NEUROLOGIC: Patient is awake alert and oriented x3 strength is symmetric patellar reflexes are 2+ bilaterally MEDICAL DECISION MAKING: The patient is a 36-year-old female who presented to the emergency department for an evaluation of abdominal pain. The patient was recently admitted to our facility for similar complaints. The patient had a follow-up appoint with her primary care physician. She was in severe pain and had outpatient laboratory studies drawn. She was found to have an elevation in her white blood cell count. I discussed the patient's laboratory and radiographic studies with her. She was treated with pain medication in the emergency department. She was not significantly improved on my evaluation. Her white blood cell count was elevated again in the emergency department however no definite source for this elevation could be found. The patient's CAT scan did not show any acute process or change from previous. It is possible this represents a leukemoid reaction. I discussed the patient's condition with the on-call [facility] hospitalist. They have agreed to evaluate the patient in the emergency department for further management and disposition. Triage Nursing notes reviewed. Prior medical records reviewed Vital Signs: reviewed and remarkable for no significant abnormalities Differential diagnosis: Etiologies such as appendicitis, diverticulitis, obstruction, inflammatory bowel disease, renal colic, PUD, biliary pathology, pancreatitis, mesenteric ischemia, aortic pathology, infections, genitourinary, UTI, perforated viscus, as well as others were entertained. ER treatment provided: See below Diagnostics interpreted by me: ECG: EKG was obtained in the emergency department. My interpretation is sinus tachycardia at 103 bpm. There was no ectopy. Diffuse ST depressions were noted. This was compared to a tracing from June 19, 2022. No changes were noted. Cardiac Monitoring: An order was placed for continuous cardiac monitoring. The monitor shows a rate of 80 bpm with sinus rhythm. Laboratory studies: As stated above and show below. Imaging studies: See below. Radiographic imaging was reviewed by myself Consultation(s): I discussed this case with Dr. Villalobos who is on-call for the [facility]. The patient was found to have an infection in her urine when she was able to give a specimen. This was noted by the admitting team and the patient was treated with IV antibiotics. Past Med/Surg History Medical History Alcohol abuse, unspecified (07/15/12) Anxiety state, unspecified (06/16/11) Bipolar disorder Headache Hypertension (07/15/12) Overdose of antipsychotic Surgical History Cholecystostomy care History of appendectomy (12/25/12) History of dental surgery Previous section 2007,2008,2009,2012 Tubal ligation status Family History Father Diabetes Hypertension Other Breast cancer No pertinent family history Social History Smoking Status: Current every day smoker Tobacco Type: Cigarettes Cigarettes Per Day: more than 1/2 a pack daily; Second Hand Exposure: No; Hx Alcohol Use: No Hx Substance Use: No Preferred Language: Vietnamese Communication Ability: Effective Tile Mason Required: No Beliefs That Will Affect Care: None marital status: Current Living Situation: Spouse and Family current occupational status: unemployed current occupation: Prior employment at [employer] How many Children do You have: 4 Feels Safe at Home: Yes during the past year weight has: increased > 10 lbs Assistive Devices: Glasses Allergies Allergies Allergy/AdvReac Type Severity Reaction Status Date / Time nut - unspecified Allergy Severe Anaphylaxis Verified 09/08/22 14:23 Penicillins Allergy Severe Difficulty Verified 09/08/22 14:23 Breathing tree nut Allergy Severe Anaphylaxis Verified 09/08/22 14:23 morphine Allergy Intermediate Hives Verified 09/08/22 14:23 mushroom Allergy Intermediate Hives Verified 09/08/22 14:23 Home Meds Home Medications Medication Instructions Recorded Confirmed epinephrine 0.3 mg/0.3 mL 0.3 mg IM DIRECTED PRN Allergic 05/13/18 09/17/22 injection, auto-injector (EpiPen) Reaction amlodipine 10 mg tablet 10 mg PO DAILY 06/02/21 09/17/22 albuterol sulfate 90 mcg/actuation 2 puff inhalation Q4H PRN 06/19/22 09/17/22 aerosol inhaler Shortness Of Breath Or Wheezing hydrochlorothiazide 25 mg tablet 25 mg PO QAM 06/19/22 09/17/22 lisinopril 10 mg tablet 10 mg PO QAM 06/19/22 09/17/22 bupropion HCl 100 mg tablet,12 hr 100 mg PO AMHS 09/05/22 09/17/22 sustained-release ibuprofen 800 mg tablet 800 mg PO TID 09/05/22 09/17/22 lidocaine HCl 2 % mucosal solution 5 ml PO UD PRN Breakthrough Pain 09/05/22 09/17/22 (Lidocaine Viscous) nystatin 100,000 unit/mL oral 5 ml PO QID 09/05/22 09/17/22 suspension pantoprazole 40 mg tablet,delayed 40 mg PO QAM 09/17/22 09/17/22 release Previous Rx's Medication Instructions Recorded spironolactone 25 mg tablet 25 mg PO QAM #30 tabs 04/05/22 folic acid 400 mcg tablet 400 mcg PO QAM #30 tabs 09/09/22 multivitamin with folic acid 400 1 tab PO QAM #30 tabs 09/09/22 mcg tablet (Daily-Rajendra (with folic acid)) thiamine HCl (vitamin B1) 100 mg 100 mg PO QAM #30 tabs 09/09/22 tablet Results & Data (ED) Vital Signs Vital Signs - 24 hr 09/17/22 20:04 09/17/22 22:03 09/18/22 00:00 Temperature 36.1 C L Temperature Source Temporal Artery Scan Pulse Rate 127 H Pulse Rate [Apical] 104 H 106 H Pulse Rhythm [Apical] Regular Pulse Strength [Apical] Normal Respiratory Rate 22 24 12 Respiratory Effort / Characteristics Non-Labored Spontaneous Respiratory Depth Normal Respiratory Pattern Regular Blood Pressure 142/90 H Blood Pressure [Left Arm] 139/98 123/73 Blood Pressure Mean 107 Blood Pressure Mean [Left Arm] 111 89 Pulse Oximetry 96 98 96 Oxygen Delivery Method Room Air Room Air Room Air Sepsis Recent Fever Within 48 Hours No Sepsis New/Unexplained Change in Mental Status No Sepsis Action Taken by Nursing No Action Required Home Medications Current Medication List: was personally reviewed by me Laboratory Data Attestation: I reviewed the patient's lab results. 09/17/22 20:39 09/17/22 20:39 Lab Results 09/17/22 09/17/22 09/17/22 Range/Units 20:39 20:39 22:33 WBC 23.66 H (4.8-10.8) K/ul RBC 4.09 L (4.20-5.40) M/uL Hgb 13.3 (12.0-16.0) g/dl Hct 39.6 (37.0-47.0) % MCV 96.8 (80.0-100.0) fL MCH 32.5 (25.0-34.0) pg MCHC 33.6 (32.0-36.0) g/dL RDW Std Deviation 50.3 H (36.4-46.3) fL RDW Coeff of Carmen 14.3 (11.5-14.5) % Plt Count 512 H (130-400) K/uL MPV 9.8 (9.4-12.4) fL Immature Gran % (Auto) 3.5 % Neut % (Auto) 66.0 % Lymph % (Auto) 20.2 % Mobile % (Auto) 6.1 % Eos % (Auto) 3.0 % Baso % (Auto) 1.2 % Neut # (Auto) 15.62 H (1.40-6.50) K/uL Lymph # (Auto) 4.78 H (1.2-3.4) K/uL Mobile # (Auto) 1.44 H (0.11-0.59) K/uL Eos # (Auto) 0.72 H (0-0.50) K/uL Baso # (Auto) 0.28 H (0-0.2) K/uL Immature Gran # (Auto) 0.82 H (0.01-0.20) K/uL Absolute Nucleated RBC 0.02 (0-0.12) K/uL Nucleated RBC % (auto) 0.1 % Sodium 139 (136-145) mmol/L Potassium 3.2 L (3.5-5.1) mmol/L Chloride 104 (98-107) mmol/L Carbon Dioxide 24 (21-32) mmol/L Anion Gap 11 (3-11) BUN 3 L (6-23) mg/dl Creatinine 0.50 L (0.6-1.2) mg/dl Est Cr Clr Drug Dosing 195.3 ml/min Est GFR ( Amer) 146.4 ml/min Est GFR (Non-Af Amer) 126.3 ml/min BUN/Creatinine Ratio 6.0 L (10-20) Glucose 96 (70-99(Fasting)) mg/dl Calcium 9.1 (8.5-10.1) mg/dl Magnesium 2.0 (1.7-2.4) mg/dl Total Bilirubin 0.9 (0.2-1.0) mg/dl AST 75 H (13-39) U/L ALT 18 (7-52) U/L Alkaline Phosphatase 225 H (34-104) U/L Troponin I High Sens 16.6 H (0-14) pg/ml Total Protein 7.9 (6.0-8.3) gm/dl Albumin 4.1 (3.4-5.0) gm/dl Globulin 3.8 (2.5-4.0) gm/dl Albumin/Globulin Ratio 1.1 (0.9-2) Urine Color Urine Appearance (Clear) Urine pH (4.5-7.5) Ur Specific [place] (1.000-1.030) Urine Protein (Negative) Urine Glucose (UA) (Negative) Urine Ketones (Negative) Urine Blood (Negative) Urine Nitrite (Negative) Urine Bilirubin (Negative) Urine Urobilinogen (Negative) Ur Leukocyte Esterase (Negative) Urine WBC (Auto) (0-5) /hpf Urine RBC (Auto) (0-4) /hpf U Hyaline Cast (Auto) (0-5) /lpf U Epithel Cells (Auto) (0-5) /lpf Urine Bacteria (Auto) (Negative) Urine Yeast Urine Opiates Screen (Neg) Ur Methadone, Qual (Neg) Urine Barbiturates (Neg) Ur Phencyclidine (PCP) (Neg) U Amphetamin/Meth Scrn (Neg) MDMA (Ecstasy) Screen (Neg) U Benzodiazepines Scrn (Neg) Ur Cocaine Metabolite (Neg) U Marijuana (THC) Screen (Neg) Ethyl Alcohol mg/dL (<10.0) mg/dl SARS-CoV-2, RNA, NAAT NEGATIVE (NEGATIVE) 09/17/22 09/17/22 09/18/22 Range/Units 23:51 23:51 00:26 WBC (4.8-10.8) K/ul RBC (4.20-5.40) M/uL Hgb (12.0-16.0) g/dl Hct (37.0-47.0) % MCV (80.0-100.0) fL MCH (25.0-34.0) pg MCHC (32.0-36.0) g/dL RDW Std Deviation (36.4-46.3) fL RDW Coeff of Carmen (11.5-14.5) % Plt Count (130-400) K/uL MPV (9.4-12.4) fL Immature Gran % (Auto) % Neut % (Auto) % Lymph % (Auto) % Mobile % (Auto) % Eos % (Auto) % Baso % (Auto) % Neut # (Auto) (1.40-6.50) K/uL Lymph # (Auto) (1.2-3.4) K/uL Mobile # (Auto) (0.11-0.59) K/uL Eos # (Auto) (0-0.50) K/uL Baso # (Auto) (0-0.2) K/uL Immature Gran # (Auto) (0.01-0.20) K/uL Absolute Nucleated RBC (0-0.12) K/uL Nucleated RBC % (auto) % Sodium (136-145) mmol/L Potassium (3.5-5.1) mmol/L Chloride (98-107) mmol/L Carbon Dioxide (21-32) mmol/L Anion Gap (3-11) BUN (6-23) mg/dl Creatinine (0.6-1.2) mg/dl Est Cr Clr Drug Dosing ml/min Est GFR ( Amer) ml/min Est GFR (Non-Af Amer) ml/min BUN/Creatinine Ratio (10-20) Glucose (70-99(Fasting)) mg/dl Calcium (8.5-10.1) mg/dl Magnesium (1.7-2.4) mg/dl Total Bilirubin (0.2-1.0) mg/dl AST (13-39) U/L ALT (7-52) U/L Alkaline Phosphatase (34-104) U/L Troponin I High Sens (0-14) pg/ml Total Protein (6.0-8.3) gm/dl Albumin (3.4-5.0) gm/dl Globulin (2.5-4.0) gm/dl Albumin/Globulin Ratio (0.9-2) Urine Color Dark Yellow Urine Appearance Cloudy A (Clear) Urine pH 6.5 (4.5-7.5) Ur Specific [place] > 1.045 H (1.000-1.030) Urine Protein 1+ H (Negative) Urine Glucose (UA) Negative (Negative) Urine Ketones Negative (Negative) Urine Blood Trace H (Negative) Urine Nitrite Negative (Negative) Urine Bilirubin Negative (Negative) Urine Urobilinogen Negative (Negative) Ur Leukocyte Esterase 2+ H (Negative) Urine WBC (Auto) >30 H (0-5) /hpf Urine RBC (Auto) 0-4 (0-4) /hpf U Hyaline Cast (Auto) 0 (0-5) /lpf U Epithel Cells (Auto) >30 H (0-5) /lpf Urine Bacteria (Auto) Negative (Negative) Urine Yeast Not Reportable Urine Opiates Screen Neg (Neg) Ur Methadone, Qual Neg (Neg) Urine Barbiturates Neg (Neg) Ur Phencyclidine (PCP) Neg (Neg) U Amphetamin/Meth Scrn Pos H (Neg) MDMA (Ecstasy) Screen Neg (Neg) U Benzodiazepines Scrn Neg (Neg) Ur Cocaine Metabolite Neg (Neg) U Marijuana (THC) Screen Neg (Neg) Ethyl Alcohol mg/dL < 10.0 (<10.0) mg/dl SARS-CoV-2, RNA, NAAT (NEGATIVE) Administered Medications Amlodipine Besylate (Amlodipine Besylate 5 Mg Tab) 10 mg PO DAILY [facility] Stop: 10/18/22 08:59 Last Admin: 09/18/22 08:54 Dose: 10 mg Documented By: MARY Bupropion HCl (Bupropion Sr 100 Mg Tabcr) 100 mg PO [facility] Stop: 10/18/22 08:59 Last Admin: 09/18/22 08:55 Dose: Not Given Documented By: MARY Folic Acid (Folic Acid 400 Mcg Tab) [facility] Stop: 10/18/22 08:59 Last Admin: 09/18/22 08:54 Dose: 400 mcg Documented By: MARY Hydrochlorothiazide (Hydrochlorothiazide 25 Mg Tab) [facility] Stop: 10/18/22 08:59 Last Admin: 09/18/22 08:55 Dose: 25 mg Documented By: MARY Hydromorphone HCl (Hydromorphone Inj 0.5 Mg/0.5 Ml Syr) 0.5 mg IV Q4H PRN PRN Reason: Pain Stop: 10/02/22 02:32 Last Admin: 09/18/22 07:14 Dose: 0.5 mg Documented By: Admin: 09/18/22 03:02 Dose: 0.5 mg Documented By: CIPRIANO Dextrose/Sodium Chloride (D5w And Nss) 1,000 mls @ 100 mls/hr IV .Q10H [facility] Stop: 10/18/22 02:32 Last Admin: 09/18/22 02:59 Dose: 100 mls/hr Documented By: CIPRIANO Aztreonam 1,000 mg/ Dextrose 110 mls @ 110 mls/hr IV Q8H [facility] Stop: 09/28/22 07:59 Last Admin: 09/18/22 09:07 Dose: 110 mls/hr Documented By: MARY Lisinopril (Lisinopril 10 Mg Tab) 10 mg PO [facility] Stop: 10/18/22 08:59 Last Admin: 09/18/22 08:55 Dose: 10 mg Documented By: MARY Multivitamins (Multivitamin Tab) 1 tab PO [facility] Stop: 10/18/22 08:59 Last Admin: 09/18/22 08:54 Dose: 1 tab Documented By: MARY Nystatin (Nystatin Susp 500,000 U/5 Ml Udc) 5 ml PO QID [facility] Stop: 09/28/22 08:59 Last Admin: 09/18/22 08:55 Dose: Not Given Documented By: MARY Ondansetron HCl (Ondansetron Inj 2 Mg/Ml 2 Ml Vial) 4 mg IV Q6H PRN PRN Reason: Nausea Stop: 10/18/22 02:32 Last Admin: 09/18/22 03:02 Dose: 4 mg Documented By: CIPRIANO Pantoprazole Sodium (Pantoprazole 40 Mg Tab) 40 mg PO [facility] Stop: 10/18/22 08:59 Last Admin: 09/18/22 08:54 Dose: 40 mg Documented By: MARY Spironolactone (Spironolactone 25 Mg Tab) 25 mg PO [facility] Stop: 10/18/22 08:59 Last Admin: 09/18/22 08:55 Dose: 25 mg Documented By: MARY Thiamine HCl (Thiamine Hcl 100 Mg Tab) 100 mg PO [facility] Stop: 10/18/22 08:59 Last Admin: 09/18/22 08:54 Dose: 100 mg Documented By: MARY Discontinued Medications Fentanyl Citrate (Fentanyl Citrate 100 Mcg/2 Ml Vial) 50 mcg IV Q15M PRN PRN Reason: Pain Stop: 10/01/22 22:05 Last Admin: 09/18/22 01:35 Dose: 50 mcg Documented By: Admin: 09/18/22 00:43 Dose: 50 mcg Documented By: Admin: 09/17/22 23:32 Dose: 50 mcg Documented By: MARY(2) Admin: 09/17/22 22:14 Dose: 50 mcg Documented By: RC Potassium Chloride (K Wagner / Wtr) 10 meq in 100 mls @ 100 mls/hr IV Q1H [facility] Stop: 09/18/22 06:59 Last Admin: 09/18/22 09:05 Dose: 100 mls/hr Documented By: Infusion: 09/18/22 08:15 Dose: 100 mls/hr Documented By: Admin: 09/18/22 07:15 Dose: 100 mls/hr Documented By: Infusion: 09/18/22 06:05 Dose: 100 mls/hr Documented By: Admin: 09/18/22 05:05 Dose: 100 mls/hr Documented By: Infusion: 09/18/22 03:59 Dose: 100 mls/hr Documented By: Admin: 09/18/22 02:59 Dose: 100 mls/hr Documented By: CIPRIANO Ioversol (Optiray 350 100ml) 85 ml IV ONCE ONE Stop: 09/17/22 22:26 Last Admin: 09/17/22 22:27 Dose: 85 ml Documented By: MEHRAN Ondansetron HCl (Ondansetron Inj 2 Mg/Ml 2 Ml Vial) 4 mg IV NOW STA Stop: 09/17/22 22:07 Last Admin: 09/17/22 22:14 Dose: 4 mg Documented By: RC Imaging Data Radiologist's Impression: Abdomen/Pelvis CT 09/17/22 22:[address] WITH IV CONTRAST CT DOSE: 1511.26 mGy.cm HISTORY: RUQ pain TECHNIQUE: Multiaxial CT images of the abdomen and pelvis were performed following the use of intravenous contrast. A dose lowering technique was utilized adhering to the principles of ALARA. COMPARISON STUDY: Abdomen and pelvis CT 09/05/2022. FINDINGS: Clear lung bases. No pneumatosis or pneumoperitoneum. Unremarkable spleen, pancreas and adrenal glands. Cholecystectomy. Hepatomegaly with hepatic steatosis. Patent portal vein. Unremarkable left kidney. Subcentimeter hypodense focus of the inferior pole left kidney likely represents a cyst. Complex 2 cm slightly hypodense lesion involving the cortex of the posterior interpolar right kidney demonstrates a dependent 2 mm calcification. This remains unchanged. Partial distention of the urinary bladder with mild wall thickening. Mildly heterogeneous appearance of the uterus. Mild atherosclerosis of the aorta. No lymphadenopathy. No bowel obstruction or bowel wall thickening. There is partial distention of the large bowel. Appendectomy. No ascites or mesenteric inflammation. Unremarkable soft tissues. No acute fracture identified. Stable submucosal fat within the colon suggesting chronic inflammatory change. IMPRESSION: 1. No acute intra-abdominal or intrapelvic abnormality identified. 2. No bowel obstruction or bowel wall thickening. 3. Appendectomy and cholecystectomy. 4. Hepatomegaly with hepatic steatosis. 5. Complex 2 cm lesion of the right kidney is stable compared to the 2019 exam. This may represent a complex cyst, however could be correlated with a nonemergent follow-up ultrasound. ACT 112: Negative or not required by law. Electronically signed by: Jovan Abreu M.D. 09/18/2022 7:49 AM Patient: CECILIA NIEVES (Female) : 89 Status: ER Date: 09/17/22 22:32 Room #: History: RUQ pain Slices: [id number] Priors: Tech: Precious Rebeka @ [phone] Exams: CT ABDOMEN & PELVIS With Contrast Contrast: IV Amt: 95ml Accession Numbers: [id number] Referring Physician: CAL SALGADO Preliminary Findings Only See Final Report For Complete Findings CT ABDOMEN & PELVIS With Contrast: Stable prominent hepatomegaly measuring approximately 30.8 cm in length near the midclavicular line on the sagittal imaging. This is thought to be stable in appearance from the examination 09/05/2022. Hepatic steatosis. Stable cholecystectomy. No biliary dilatation. The gallbladder, spleen, adrenal glands and kidneys are unremarkable. No bowel obstruction. Similar mural fat deposition in the ascending and transv erse colon suggesting chronic inflammatory changes. However, no active inflammation identified. No free intraperitoneal fluid or pneumoperitoneum. Incidental normal caliber appendix. The bladder is decompressed, limiting evaluation. No appreciable alteration. The uterus and adnexa are grossly unremarkable. No acute osseous or significant overlying soft tissue abnormality. Radiologist: Gatito Sultana MD Study ready at 22:49 and initial results transmitted at 22:54 Discharge Plan Visit Data Chief Complaint: Abnormal Labs/Diagnostic Testing Stated Complaint: SEVERE BACK PAIN, ABNORMAL LABS ED Provider: Cal Salgado Discharge Problem: Right upper quadrant abdominal pain, Hepatomegaly, UTI (urinary tract infection) Patient Disposition: Admitted As Inpatient Discharge Instructions Interventions: ED Discharge Assessment Last Done: 09/18/22 02:13
[2022-09-17] MEDS: fentaNYL citrate 100 MCG/2 ML VIAL IV PRN ×2 (22:14→23:32)
[2022-09-17] MEDS ORDERED: OPTIRAY 350 100ml IV ONE (22:25)
[2022-09-17 22:42] LABS: Troponin I High Sensitivity 16.6 pg/ml (0-14)
[2022-09-18 00:13] LABS: Appearance Urine Cloudy (Clear); Bacteria Urine Automated Negative (Negative); Bilirubin Urine Negative (Negative); Blood Urine Trace (Negative); Color Urine Dark Yellow; Epithelial Cell Urine Auto >30 /lpf (0-5); Glucose Urine UA Negative (Negative); Ketones Urine Negative (Negative); Leukocyte Esterase Urine 2+ (Negative); Nitrite Urine Negative (Negative); Protein Urine 1+ (Negative); RBC Urine Automated 0-4 /hpf (0-4); Specific Gravity Urine > 1.045 (1.000-1.030); Urobilinogen Urine Negative (Negative); WBC Urine Automated >30 /hpf (0-5); pH Urine 6.5 (4.5-7.5)
[2022-09-18] MEDS: fentaNYL citrate 100 MCG/2 ML VIAL IV PRN ×2 (00:43→01:35)
[2022-09-18 00:59] LABS: Cast Urine Automated 0 /lpf (0-5)
[2022-09-18 01:05] LABS: Amphetamines+Metham, Urine Pos (Neg); Barbiturates, Urine Neg (Neg); Benzodiazepine, Urine Neg (Neg); Cocaine, Urine Neg (Neg); MDMA (Ecstacy), Urine Neg (Neg); Methadone, Urine Neg (Neg); Opiate, Urine Neg (Neg); Phencyclidine, Urine Neg (Neg)
[2022-09-18] MEDS ORDERED: ALBUTEROL HFA 8 GM INHALER INH PRN (02:33)
[2022-09-18] MEDS ORDERED: ACETAMINOPHEN 325 MG TAB PO PRN (02:33)
[2022-09-18] MEDS ORDERED: EPINEPHrine INJ 1 MG/ML AMP IM PRN (02:49)
[2022-09-18] MEDS ORDERED: LIDOCAINE VISCOUS 2% 15 ML UDC MT PRN (02:52)
[2022-09-18] MEDS: POTASSIUM CHLORIDE / WTR 10 MEQ/100 ML PLCT IV SCH ×4 (02:59→09:05)
[2022-09-18] MEDS: D5W AND NSS 1,000 ML IV SCH ×2 (02:59→19:32)
[2022-09-18] MEDS: ONDANSETRON INJ 2 MG/ML 2 ML VIAL IV PRN ×2 (03:02→14:27)
[2022-09-18] MEDS: HYDROmorphone INJ 0.5 MG/0.5 ML SYR IV PRN ×5 (03:02→19:33)
--- NOTE | 2022-09-18 05:00 | History and Physical Report ---
DATE OF ADMISSION: 09/18/2022. CHIEF COMPLAINT: Abdominal pain. HISTORY OF PRESENT ILLNESS: This is a 36-year-old female with past medical history significant for chronic hypokalemia, history of hypertension, history of hypertensive urgency, morbid obesity, opioid dependence in remission, history of seizure-like activity, bipolar I disorder, tobacco abuse, generalized anxiety disorder, history of posttraumatic stress disorder, history of alcoholism, she says she is not drinking since 08/07/2022 presents with abdominal pain and chronic diarrhea for the last 6 months, several episodes a day, states the stools are dark in color. The patient was recently in hospital with right upper quadrant abdominal pain. Imaging studies were unremarkable except for hepatomegaly and right kidney cyst she was seen by GI and s/p EGD and colonoscopy, which showed esophagitis and possible portal hypertensive gastropathy. Colonoscopy revealed 4-mm polyp in the cecum, removed 2mm polyp in transverse colon , which was also removed. Biopsy was performed showing microscopic colitis. Her electrolytes were replaced and she was discharged on 09/06/2022, followed with her family doctor on 09/11/2022 and outpatient labs were done today morning, which showed triglycerides were as high as 330. Her white count was 25,000 and she was advised to come to the hospital. Having right upper quadrant abdominal pain, severe in nature associated with nausea and diarrhea. Says having night sweating. Denies any fevers, no chest pain, no shortness of breath, no cough, no headache, no blurred visions, no earache, no runny nose, no sore throat. Hemodynamically stable. ALLERGIES: TO NUTS, PENICILLIN, PEANUT, MORPHINE, MUSHROOM. PAST MEDICAL HISTORY: As mentioned above. PAST SURGICAL HISTORY: EGD and colonoscopy, cholecystectomy, hysteroscopy, endometrial ablation, ligation of oviducts, appendectomy, surgical removal of the tooth. MEDICATIONS: The patient is on albuterol 2 puffs inhalation q. 4 hours p.r.n., amlodipine 10 mg p.o. daily, bupropion 100 mg p.o. b.i.d., folic acid 400 mcg p.o. daily, hydrochlorothiazide 25 mg p.o. a.m., lisinopril 10 mg p.o. daily, multivitamin with minerals 1 tablet p.o. daily, nystatin 5 mL p.o. q.i.d., Protonix 40 mg p.o. a.m., spironolactone 25 mg p.o. a.m., thiamine 100 mg p.o. daily. FAMILY HISTORY: Significant for father has alcoholism; paternal grandmother has alcoholism, aunt has alcoholism, mother has bipolar disorder, sister has drug abuse. Maternal grandmother had heart attack. Sister has kidney disease, mother has heart attack, father has stroke, sister with kidney stones. SOCIAL HISTORY: . Smokes 0.75 pack a day for the last 19 years. She states she is not drinking alcohol since 08/07/2022, Currently not on medical marijuana as per the epic. REVIEW OF SYSTEMS: As per HPI. Rest of review of systems is negative. PHYSICAL EXAMINATION: GENERAL: The patient is obese, not in acute distress. VITAL SIGNS: Temperature 36.1, pulse 106, respiratory rate 12, blood pressure 123/73, oxygen 96% on room air. HEENT: Pupils equal, round and reactive to light. Oral mucosa moist. NECK: No JVD or neck masses. CARDIOVASCULAR: S1 and S2 heard. Regular rate and rhythm. No murmur, no gallop. RESPIRATORY SYSTEM: Normal AP diameter. No accessory muscle use. No wheezing, no crackles. ABDOMEN: Soft, bowel sounds present. Right upper quadrant tenderness present. Guarding present. No distention. CENTRAL NERVOUS SYSTEM: Cranial nerves II-XII grossly intact, nonfocal. EXTREMITIES: No edema, no erythema. LABORATORY DATA: WBC23.6, hemoglobin 13.3, hematocrit 29.6, platelets 512. Sodium 139, potassium 3.2, chloride 104, bicarbonate 24, BUN 3, creatinine 0.5, serum glucose 96, calcium 9.1, magnesium 2, total bilirubin 0.9, AST 75, ALT 18, alkaline phosphatase 225. Troponin I high sensitivity 16.6. Urinalysis, +2 leukocyte esterase, bacteria negative. Urine drug screen positive for amphetamines. Ethyl alcohol less than 10. SARS-CoV-2 rapid test negative. IMAGING DATA: CT of abdomen and pelvis, preliminary report, hepatomegaly measuring 30 cm, stable in appearance from previous CAT scan. Chronic inflammatory change in the ascending and transverse colon. EKG: Sinus tachycardia at a rate of 103, no significant change was found. ASSESSMENT AND PLAN: This is a 36-year-old female who presents with ongoing abdominal pain and leukocytosis. 1. Ongoing abdominal pain, right upper quadrant, recent last admission, EGD and colonoscopy were done. On Protonix 40 mg daily for esophagitis, which will be continued and she also has leukocytosis, possible UTI. We will empirically start on antibiotic,Azactam for now until cultures are back. Consult GI. We will keep her on clear liquid diet until seen by GI. 2. Leukocytosis and elevated platelets. still persistently high, we need to follow up with hem/onc as outpatient. 3. History of alcoholism. The patient states she is currently not drinking. 4. Ongoing tobacco abuse. Needs counseling. 5.HTN. Continue home medication. On amlodipine, hydrochlorothiazide, lisinopril, spironolactone. 6. Esophagitis. On Protonix. 7. Chronic diarrhea. Recently, workup was negative. Await GI inputs. Will check Hemoccult as stools are dark 8. High Triglycerides. Needs followup. Can start on statin. 9. Mild elevated troponin. Asymptomatic. will follow serial CE. 10. Deep venous thrombosis prophylaxis. Sequential compression devices for now. DISPOSITION: Closely monitor in the medical floor. PT/OT prior to discharge. Social service to help with discharge planning. Job ID: [id number] [facility]ITALPe[facility]
[2022-09-18 06:47] LABS: Hematocrit (blood only) 34.3 % (37.0-47.0); Hemoglobin 11.5 g/dl (12.0-16.0); Mean Corpuscular Hemoglobin 32.6 pg (25.0-34.0); Mean Corpuscular Hgb Conc 33.5 g/dL (32.0-36.0); Mean Corpuscular Volume 97.2 fL (80.0-100.0); Mean Platelet Volume 9.4 fL (9.4-12.4); Nucleated RBC # (auto) 0.02 K/uL (0-0.12); Nucleated RBC % (auto) 0.1 %; Platelet Count 412 K/uL (130-400); RDW Coefficient of Variation 14.5 % (11.5-14.5); Red Blood Count 3.53 M/uL (4.20-5.40); White Blood Count 21.19 K/ul (4.8-10.8)
[2022-09-18 07:07] LABS: Basophils # (auto) 0.21 K/uL (0-0.2); Eosinophils # (auto) 0.75 K/uL (0-0.50); Eosinophils % (auto) 3.5 %; Immature Granulocytes # (auto) 0.79 K/uL (0.01-0.20); Immature Granulocytes % (auto) 3.7 %; Lymphocytes # (auto) 4.25 K/uL (1.2-3.4); Lymphocytes % (auto) 20.1 %; Monocytes # (auto) 1.51 K/uL (0.11-0.59); Monocytes % (auto) 7.1 %; Neutrophils # (auto) 13.68 K/uL (1.40-6.50); Neutrophils % (auto) 64.6 %; Toxic Vacuolation 1+
[2022-09-18] MEDS ORDERED: AZTREONAM 2,000 MG in DEXTROSE 5% 100 ML IV SCH (07:15)
--- NOTE | 2022-09-18 07:52 | CT Scan Report ---
ABDOMEN AND PELVIS CT WITH IV CONTRAST CT DOSE: 1511.26 mGy.cm HISTORY: RUQ pain TECHNIQUE: Multiaxial CT images of the abdomen and pelvis were performed following the use of intrave nous contrast. A dose lowering technique was utilized adhering to the principles of ALARA. COMPARISON STUDY: Abdomen and pelvis CT 09/05/2022. FINDINGS: Clear lung bases. No pneumatosis or pneumoperitoneum. Unremarkable spleen, pancreas and adr enal glands. Cholecystectomy. Hepatomegaly with hepatic steatosis. Patent portal vein. Unremarkable l eft kidney. Subcentimeter hypodense focus of the inferior pole left kidney likely represents a cyst. Complex 2 cm slightly hypodense lesion involving the cortex of the posterior interpolar right kidney demonstrates a dependent 2 mm calcification. This remains unchanged. Partial distention of the urinar y bladder with mild wall thickening. Mildly heterogeneous appearance of the uterus. Mild atherosclero sis of the aorta. No lymphadenopathy. No bowel obstruction or bowel wall thickening. There is partial distention of the large bowel. Append ectomy. No ascites or mesenteric inflammation. Unremarkable soft tissues. No acute fracture identifie d. Stable submucosal fat within the colon suggesting chronic inflammatory change. IMPRESSION: 1. No acute intra-abdominal or intrapelvic abnormality identified. 2. No bowel obstruction or bowel wall thickening. 3. Appendectomy and cholecystectomy. 4. Hepatomegaly with hepatic steatosis. 5. Complex 2 cm lesion of the right kidney is stable compared to the 2020 exam. This may represent a complex cyst, however could be correlated with a nonemergent follow-up ultrasound. ACT 112: Negative or not required by law. Electronically signed by: Jovan Abreu M.D. 09/18/2022 7:49 AM
[2022-09-18 08:12] LABS: Anion Gap 7 (3-11); BUN Creatinine Ratio 6.7 (10-20); Blood Urea Nitrogen 3 mg/dl (6-23); Calcium 8.5 mg/dl (8.5-10.1); Carbon Dioxide 26 mmol/L (21-32); Chloride 106 mmol/L (98-107); Creatinine Clr Calc Pharmacy 215.8 ml/min; Est GFR (African American) > 150.0 ml/min; Est GFR (Non-African American) 130.7 ml/min; Glucose 87 mg/dl (70-99(Fasting)); Magnesium 1.7 mg/dl (1.7-2.4); Potassium 3.1 mmol/L (3.5-5.1); Sodium 139 mmol/L (136-145)
[2022-09-18] MEDS: PANTOprazole 40 MG TAB PO SCH (08:54)
[2022-09-18] MEDS: MULTIVITAMIN TAB PO SCH (08:54)
[2022-09-18] MEDS: THIAMINE HCL 100 MG TAB PO SCH (08:54)
[2022-09-18] MEDS: FOLIC ACID 400 MCG TAB PO SCH (08:54)
[2022-09-18] MEDS: amLODIPine BESYLATE 5 MG TAB PO SCH (08:54)
[2022-09-18] MEDS: NYSTATIN SUSP 500,000 U/5 ML UDC PO SCH ×4 (08:55→21:38)
[2022-09-18] MEDS: buPROPion SR 100 MG TABCR PO SCH ×2 (08:55→21:38)
[2022-09-18] MEDS: SPIRONOLACTONE 25 MG TAB PO SCH (08:55)
[2022-09-18] MEDS: hydroCHLOROthiazide 25 MG TAB PO SCH (08:55)
[2022-09-18] MEDS: lisinopril 10 MG TAB PO SCH (08:55)
[2022-09-18] MEDS: AZTREONAM 1,000 MG in DEXTROSE 5% 100 ML IV SCH ×2 (09:07→17:30)
[2022-09-18] MEDS: oxyCODONE HCL IR 5 MG TAB (IMMEDIATE RELEASE) PO PRN ×3 (09:46→22:29)
--- NOTE | 2022-09-18 09:54 | Gastrointestinal Consultation ---
Date of Consultation September 18, 2022 Assessment & Plan (1) Right upper quadrant abdominal pain: Recent normal endoscopy and CT, so likely functional pain. (2) Chronic diarrhea: Unclear etiology but recent imaging, and colonosocpy w random colon bx and stool studies were (-) so likely functonal diarrhea. (3) Elevated LFTs: Likely secondary to fatty liver and hx of increased alcohol intake, but no significant alcoholic hepatitis as Bili is normal. Plan 1. Will r/o microlithiasis and bile duct abnormalities w MRCP. 2. Colestipol BID 3. Dicyclomine achs. 4. Continued alcohol abstention. 5. Appreciate primary hospitalists w/o for leukocytosis. At this point, unlikely to be of GI origin. Supervising Physician Co-Signing Physician Notes I performed a history and physical examination of the patient today, including specifically on physical exam - soft abdomen. I have discussed the patient's management with the advanced practitioner. Please refer to the nurse practitioner's note for the documented findings and plan of care. MRCP. Bentyl and Colestipol. Follow up as OP in GI clinic. History of Present Illness Reason for Consultation: Abdominal pain Requesting Physician: Wilfredo Attending Physician: Maksim Curiel MD History of Present Illness Ms. Brigette Patel is a 36 yr old female pt of Dr. Angelic Pereira w a hx of Bipolar, HTN, Obesity, increased alcohol intake (abstaining since Aug 05) who was a pt here at [facility] for similar symptoms 09/05 - 09/09 and underwent EGD w mild esophagitis and colonoscopy w normal random colon bx and gastric bx (-) for H Pylori. She did has culture positive UTI during that admission. After discharge, diarrhea continued and pain was minimal for a few days but returned again precipitating this presentation. She reports moderately severe right mid abdomen cramping pain that is not effected by eating/defecation and passing about 6 - 10 liquid BMs/day w/o any hematochezia. On arrival yesterday, CTAP w IV on arrival w/o any acute findings. She has leukocytosis at 21 and elevated troponin but no fevers. AST and Alk Phos are mildly elevated but improved since last week. Stools on 09/05/22 were (-) for C- diff and GI pathogens. Blood and urine Cx this admission are pending. She reports a significant weight loss which is verified by OP records: 268 in March 2023 ->238 Sep 11. Allergies Allergy/AdvReac Type Severity Reaction Status Date / Time nut - unspecified Allergy Severe Anaphylaxis Verified 09/08/22 14:23 Penicillins Allergy Severe Difficulty Verified 09/08/22 14:23 Breathing tree nut Allergy Severe Anaphylaxis Verified 09/08/22 14:23 morphine Allergy Intermediate Hives Verified 09/08/22 14:23 mushroom Allergy Intermediate Hives Verified 09/08/22 14:23 Home Medications Medication Instructions Recorded Confirmed Type epinephrine 0.3 mg/0.3 mL 0.3 mg IM DIRECTED PRN Allergic 05/13/18 09/17/22 History injection, auto-injector (EpiPen) Reaction amlodipine 10 mg tablet 10 mg PO DAILY 06/02/21 09/17/22 History spironolactone 25 mg tablet 25 mg PO QAM #30 tabs 04/05/22 09/17/22 Rx albuterol sulfate 90 mcg/actuation 2 puff inhalation Q4H PRN 06/19/22 09/17/22 History aerosol inhaler Shortness Of Breath Or Wheezing hydrochlorothiazide 25 mg tablet 25 mg PO QAM 06/19/22 09/17/22 History lisinopril 10 mg tablet 10 mg PO QAM 06/19/22 09/17/22 History bupropion HCl 100 mg tablet,12 hr 100 mg PO AMHS 09/05/22 09/17/22 History sustained-release ibuprofen 800 mg tablet 800 mg PO TID 09/05/22 09/17/22 History lidocaine HCl 2 % mucosal solution 5 ml PO UD PRN Breakthrough Pain 09/05/22 09/17/22 History (Lidocaine Viscous) nystatin 100,000 unit/mL oral 5 ml PO QID 09/05/22 09/17/22 History suspension folic acid 400 mcg tablet 400 mcg PO QAM #30 tabs 09/09/22 09/17/22 Rx multivitamin with folic acid 400 1 tab PO QAM #30 tabs 09/09/22 09/17/22 Rx mcg tablet (Daily-Rajendra (with folic acid)) thiamine HCl (vitamin B1) 100 mg 100 mg PO QAM #30 tabs 09/09/22 09/17/22 Rx tablet pantoprazole 40 mg tablet,delayed 40 mg PO QAM 09/17/22 09/17/22 History release Patient History Medical History Alcohol abuse, unspecified (07/15/12) Anxiety state, unspecified (06/16/11) Bipolar disorder Headache Hypertension (07/15/12) Overdose of antipsychotic Surgical History Cholecystostomy care History of appendectomy (12/25/12) History of dental surgery Previous section 2007,2008,2009,2012 Tubal ligation status Family History Father Diabetes Hypertension Other Breast cancer No pertinent family history Social History Smoking Status: Current every day smoker Tobacco Type: Cigarettes Cigarettes Per Day: more than 1/2 a pack daily; Second Hand Exposure: No; Hx Alcohol Use: No Hx Substance Use: No Preferred Language: Andorran Communication Ability: Effective Channel Marketing Coordinator Required: No Beliefs That Will Affect Care: None marital status: Current Living Situation: Spouse and Family current occupational status: unemployed current occupation: Prior employment at [employer] How many Children do You have: 4 Feels Safe at Home: Yes during the past year weight has: increased > 10 lbs Assistive Devices: None Review of Systems Review of Systems: ROS: Gen: + reports a 30lbs weight loss in the past 3 months; Denies weakness, fevers. Eyes: No eye redness, or pain, no recent vision changes Resp: No SOB, no cough Cardio: No palpitations/irregular beats, no chest pain GI: See HPI : Denies pain on urination Skin: No jaundice, itching or new rashes M/S: reports diffuse, bilat joint pain Hem: + nose bleed yesterday, otherwise no excessive bleeding/bruising Physical Exam Constitutional: well developed, well nourished, + obese and cooperative Eyes: PERRL, conjunctivae normal, anicteric sclerae ENMT: external ear and nose normal, oropharynx normal Neck: trachea midline, no thyromegaly Respiratory: normal respiratory effort, lungs clear to auscultation Cardiovascular: RRR, no murmur, no edema Gastrointestinal (Abdomen): Inspection/Auscultation: + abdomen distended (mildly) Percussion/Palpation: + abdomen tender (mild tenderness in the right upper abd) and abdomen soft; no abdominal mass and no ascites Musculoskeletal: no cyanosis or clubbing, extremities motor strength 5/5 Skin: no rashes, warm and dry Neurologic: PERRL, EOMI, accommodation nl, no face palsy, no dysarthria Psychiatric: A+Ox3, euthymic affect Lymphatic: no cervical or axillary lymphadenopathy Results & Data ([facility]) Vital Signs (Past 12 Hours) Vital Signs Temp Pulse Pulse Resp BP Pulse Ox O2 Del Method 09/18/22 07:05 36.7 C 80 17 117/77 96 Room Air 09/18/22 03:23 36.8 C 90 18 120/86 97 Room Air 09/18/22 01:31 101 H 20 128/80 94 Room Air 09/18/22 00:00 106 H 12 123/73 96 Room Air 09/17/22 22:03 104 H 24 139/98 98 Room Air Laboratory Results WBC 21.9, Hb 11.5, Hct 34.3, Plts 412, PT 12, INR 1.1, Na 139, K 3.1, Cl 106, CO2 26, BUN 3, Cr 0.45, glucose 87. T Bili 0.9, AST 75, ALT 18, Alk Phos 225 Diagnostic Findings CTAP w IV contrast 09/17/22: 1. No acute intra-abdominal or intrapelvic abnormality identified. 2. No bowel obstruction or bowel wall thickening. 3. Appendectomy and cholecystectomy. 4. Hepatomegaly with hepatic steatosis. 5. Complex 2 cm lesion of the right kidney is stable compared to the 2020 exam. This may represent a complex cyst, however could be correlated with a nonemergent follow-up ultrasound.
[2022-09-18] MEDS: COLESTIPOL HCL 1 GM TAB PO SCH ×2 (10:33→21:38)
[2022-09-18] MEDS: DICYCLOMINE HCL 10 MG CAP PO SCH ×4 (10:34→21:38)
[2022-09-18] MEDS ORDERED: LORazepam 2 MG/1 ML VIAL IV ONE (11:23)
--- NOTE | 2022-09-18 12:31 | Oncology Consultation ---
Date of Consultation September 18, 2022 Assessment & Plan (1) Leukocytosis: (2) Chronic diarrhea: (3) Hepatomegaly: Plan Leukocytosis possibly due to UTI/infection/reactive process. However, since leukocytosis has persisted since March last year, will obtain workup for CML/ myeloproliferative neoplasm. Plan to see her back in clinic after discharge from hospital to discuss results. History of Present Illness Reason for Consultation: Leukocytosis Attending Physician: Maksim Curiel MD History of Present Illness Pleasant female with multiple medical issues who was admitted [facility] with complaints of abdominal pain and diarrhea for the last [address] Abdomen and pelvis on 09/17/2022 revealed hepatomegaly with hepatic steatosis and stable complex 2 cm lesion of the right kidney.MRCP revealed Cholecystectomy with likely postsurgical biliary ductal dilation and Hepatomegaly with hepatic steatosis.Hematology was consulted for leukocytosis as labs have shown persistently elevated white blood cell count with recent wbc of 23,000.Urinalysis was concerning for infection with urine culture pending .Blood culture is also pending She complains of nausea, diarrhea, low grade fevers, drenching night sweats , weight loss and fatigue. Allergies Allergy/AdvReac Type Severity Reaction Status Date / Time nut - unspecified Allergy Severe Anaphylaxis Verified 09/08/22 14:23 Penicillins Allergy Severe Difficulty Verified 09/08/22 14:23 Breathing tree nut Allergy Severe Anaphylaxis Verified 09/08/22 14:23 morphine Allergy Intermediate Hives Verified 09/08/22 14:23 mushroom Allergy Intermediate Hives Verified 09/08/22 14:23 Home Medications Medication Instructions Recorded Confirmed Type epinephrine 0.3 mg/0.3 mL 0.3 mg IM DIRECTED PRN Allergic 05/13/18 09/17/22 History injection, auto-injector (EpiPen) Reaction amlodipine 10 mg tablet 10 mg PO DAILY 06/02/21 09/17/22 History spironolactone 25 mg tablet 25 mg PO QAM #30 tabs 04/05/22 09/17/22 Rx albuterol sulfate 90 mcg/actuation 2 puff inhalation Q4H PRN 06/19/22 09/17/22 History aerosol inhaler Shortness Of Breath Or Wheezing hydrochlorothiazide 25 mg tablet 25 mg PO QAM 06/19/22 09/17/22 History lisinopril 10 mg tablet 10 mg PO QAM 06/19/22 09/17/22 History bupropion HCl 100 mg tablet,12 hr 100 mg PO AMHS 09/05/22 09/17/22 History sustained-release ibuprofen 800 mg tablet 800 mg PO TID 09/05/22 09/17/22 History lidocaine HCl 2 % mucosal solution 5 ml PO UD PRN Breakthrough Pain 09/05/22 09/17/22 History (Lidocaine Viscous) nystatin 100,000 unit/mL oral 5 ml PO QID 09/05/22 09/17/22 History suspension folic acid 400 mcg tablet 400 mcg PO QAM #30 tabs 09/09/22 09/17/22 Rx multivitamin with folic acid 400 1 tab PO QAM #30 tabs 09/09/22 09/17/22 Rx mcg tablet (Daily-Rajendra (with folic acid)) thiamine HCl (vitamin B1) 100 mg 100 mg PO QAM #30 tabs 09/09/22 09/17/22 Rx tablet pantoprazole 40 mg tablet,delayed 40 mg PO QAM 09/17/22 09/17/22 History release Patient History Medical History Alcohol abuse, unspecified (07/15/12) Anxiety state, unspecified (06/16/11) Bipolar disorder Headache Hypertension (07/15/12) Overdose of antipsychotic Surgical History Cholecystostomy care History of appendectomy (12/25/12) History of dental surgery Previous section 2007,2008,2009,2012 Tubal ligation status Family History Father Diabetes Hypertension Other Breast cancer No pertinent family history Social History Smoking Status: Current every day smoker Tobacco Type: Cigarettes Cigarettes Per Day: more than 1/2 a pack daily; Second Hand Exposure: No; Hx Alcohol Use: No Hx Substance Use: No Preferred Language: Andorran Communication Ability: Effective Cook Station Required: No Beliefs That Will Affect Care: None marital status: Current Living Situation: Spouse and Family current occupational status: unemployed current occupation: Prior employment at [employer] How many Children do You have: 4 Feels Safe at Home: Yes during the past year weight has: increased > 10 lbs Assistive Devices: None Review of Systems Review of Systems: All systems reviewed & are unremarkable except as noted in HPI & below Physical Exam Constitutional: WD/WN, vitals as above Eyes: PERRL, conjunctivae normal, anicteric sclerae Respiratory: normal respiratory effort, lungs clear to auscultation Cardiovascular: RRR, no murmur, no edema Results & Data ([facility]) Vital Signs (Past 12 Hours) Vital Signs Temp Pulse Pulse Resp BP Pulse Ox O2 Del Method 09/18/22 07:05 36.7 C 80 17 117/77 96 Room Air 09/18/22 03:23 36.8 C 90 18 120/86 97 Room Air 09/18/22 01:31 101 H 20 128/80 94 Room Air
--- NOTE | 2022-09-18 12:53 | Hospitalist Progress Note ---
Date of Service September 18, 2022 Assessment & Plan (1) Hepatomegaly: (2) Right upper quadrant abdominal pain: (3) Elevated LFTs: Plan: Recent admission with right upper quadrant abdominal pain. Had colonoscopy and endoscopy done last admission. Endoscopy done on September 08; grade A esophagitis with no bleeding. Concern for portal hypertensive gastropathy. H. pylori negative Colonoscopy done in September 08; 4 mm polyp in the cecum; removed with cold snare. 2 mm polyp in ascending colon; removed. Cecum polypectomy showed tubular adenoma. No other abnormality found. CT abdomen and pelvis shows hepatomegaly ALP continues to be elevated GI consulted; recommend MRCP to rule out microlithiasis. Colestipol BID and Dicyclomine achs added We will follow-up on recommendation (4) Leukocytosis: (5) Thrombocytosis: Plan: Was recently admitted with urinary tract infection; treated with IV antibiotic and switch to oral at discharge. Reports no urinary symptoms presently Leukocytosis persistently present Peripheral blood smear done during last admission; no significant abnormalities were found. Discussed with hematology; work-up for leukocytosis as per hematology (6) Hypokalemia: Plan: History of significant hypokalemia Repleted (7) Hypertension: Plan: Continue on hydrochlorothiazide, amlodipine, lisinopril and spironolactone Plan Full code DVT heparin Admission and Anticipated Discharge Date Admission Date: September 18, 2022 Subjective This is a 36-year-old female with past medical history significant for chronic hypokalemia, history of hypertension, history of hypertensive urgency, morbid obesity, opioid dependence in remission, history of seizure-like activity, bipolar I disorder, tobacco abuse, generalized anxiety disorder, history of posttraumatic stress disorder, history of alcoholism, she says she is not drinking since 08/07/2022 presents with abdominal pain and chronic diarrhea for the last 6 months, several episodes a day, states the stools are dark in color. The patient was recently in hospital with right upper quadrant abdominal pain. Imaging studies were unremarkable except for hepatomegaly and right kidney cyst she was seen by GI and s/p EGD and colonoscopy, which showed esophagitis and possible portal hypertensive gastropathy. Colonoscopy revealed 4-mm polyp in the cecum, removed 2mm polyp in transverse colon , which was also removed. Biopsy was performed showing microscopic colitis. Her electrolytes were replaced and she was discharged on 09/06/2022, followed with her family doctor on 09/11/2022 and outpatient labs were done today morning, which showed triglycerides were as high as 330. Her white count was 25,000 and she was advised to come to the hospital. Having right upper quadrant abdominal pain, severe in nature associated with nausea and diarrhea. Says having night sweating. Denies any fevers, no chest pain, no shortness of breath, no cough, no headache, no blurred visions, no earache, no runny nose, no sore throat. Hemodynamically stable. Review of Systems Review of Systems: All systems reviewed & are unremarkable except as noted in Subjective Physical Exam Physical Exam: GENERAL: The patient is obese, not in acute distress. VITAL SIGNS: Temperature 36.1, pulse 106, respiratory rate 12, blood pressure 123/73, oxygen 96% on room air. HEENT: Pupils equal, round and reactive to light. Oral mucosa moist. NECK: No JVD or neck masses. CARDIOVASCULAR: S1 and S2 heard. Regular rate and rhythm. No murmur, no gallop. RESPIRATORY SYSTEM: Normal AP diameter. No accessory muscle use. No wheezing, no crackles. ABDOMEN: Soft, bowel sounds present. Right upper quadrant tenderness present. Guarding present. No distention. CENTRAL NERVOUS SYSTEM: Cranial nerves II-XII grossly intact, nonfocal. EXTREMITIES: No edema, no erythema. Results & Data Results & Data ([facility]) Vital Signs (Past 12 Hours) Vital Signs Temp Pulse Pulse Resp BP Pulse Ox O2 Del Method 09/18/22 07:05 36.7 C 80 17 117/77 96 Room Air 09/18/22 03:23 36.8 C 90 18 120/86 97 Room Air 09/18/22 01:31 101 H 20 128/80 94 Room Air Laboratory Results Laboratory Results WBC 21.19 K/ul (4.8-10.8) H 09/18/22 06:35 RBC 3.53 M/uL (4.20-5.40) L 09/18/22 06:35 Hgb 11.5 g/dl (12.0-16.0) L 09/18/22 06:35 Hct 34.3 % (37.0-47.0) L 09/18/22 06:35 MCV 97.2 fL (80.0-100.0) 09/18/22 06:35 MCH 32.6 pg (25.0-34.0) 09/18/22 06:35 MCHC 33.5 g/dL (32.0-36.0) 09/18/22 06:35 RDW Std Deviation 51.0 fL (36.4-46.3) H 09/18/22 06:35 RDW Coeff of Carmen 14.5 % (11.5-14.5) 09/18/22 06:35 Plt Count 412 K/uL (130-400) H 09/18/22 06:35 MPV 9.4 fL (9.4-12.4) 09/18/22 06:35 Immature Gran % (Auto) 3.7 % 09/18/22 06:35 Neut % (Auto) 64.6 % 09/18/22 06:35 Lymph % (Auto) 20.1 % 09/18/22 06:35 [place] % (Auto) 7.1 % 09/18/22 06:35 Eos % (Auto) 3.5 % 09/18/22 06:35 Baso % (Auto) 1.0 % 09/18/22 06:35 Neut # (Auto) 13.68 K/uL (1.40-6.50) H 09/18/22 06:35 Lymph # (Auto) 4.25 K/uL (1.2-3.4) H 09/18/22 06:35 [place] # (Auto) 1.51 K/uL (0.11-0.59) H 09/18/22 06:35 Eos # (Auto) 0.75 K/uL (0-0.50) H 09/18/22 06:35 Baso # (Auto) 0.21 K/uL (0-0.2) H 09/18/22 06:35 Immature Gran # (Auto) 0.79 K/uL (0.01-0.20) H 09/18/22 06:35 Absolute Nucleated RBC 0.02 K/uL (0-0.12) 09/18/22 06:35 Nucleated RBC % (auto) 0.1 % 09/18/22 06:35 Toxic Vacuolation 1+ 09/18/22 06:35 Sodium 139 mmol/L (136-145) 09/18/22 06:35 Potassium 3.1 mmol/L (3.5-5.1) L 09/18/22 06:35 Chloride 106 mmol/L (98-107) 09/18/22 06:35 Carbon Dioxide 26 mmol/L (21-32) 09/18/22 06:35 Anion Gap 7 (3-11) 09/18/22 06:35 BUN 3 mg/dl (6-23) L 09/18/22 06:35 Creatinine 0.45 mg/dl (0.6-1.2) L 09/18/22 06:35 Est Cr Clr Drug Dosing 215.8 ml/min 09/18/22 06:35 Est GFR ( Amer) > 150.0 ml/min 09/18/22 06:35 Est GFR (Non-Af Amer) 130.7 ml/min 09/18/22 06:35 BUN/Creatinine Ratio 6.7 (10-20) L 09/18/22 06:35 Glucose 87 mg/dl (70-99(Fasting)) 09/18/22 06:35 Calcium 8.5 mg/dl (8.5-10.1) 09/18/22 06:35 Magnesium 1.7 mg/dl (1.7-2.4) 09/18/22 06:35 Total Bilirubin 0.9 mg/dl (0.2-1.0) 09/17/22 20:39 AST 75 U/L (13-39) H 09/17/22 20:39 ALT 18 U/L (7-52) 09/17/22 20:39 Alkaline Phosphatase 225 U/L (34-104) H 09/17/22 20:39 Troponin I High Sens 10.3 pg/ml (0-14) D 09/18/22 08:33 Total Protein 7.9 gm/dl (6.0-8.3) 09/17/22 20:39 Albumin 4.1 gm/dl (3.4-5.0) 09/17/22 20:39 Globulin 3.8 gm/dl (2.5-4.0) 09/17/22 20:39 Albumin/Globulin Ratio 1.1 (0.9-2) 09/17/22 20:39 Urine Color Dark Yellow 09/17/22 23:51 Urine Appearance Cloudy (Clear) A 09/17/22 23:51 Urine pH 6.5 (4.5-7.5) 09/17/22 23:51 Ur Specific [place] > 1.045 (1.000-1.030) H 09/17/22 23:51 Urine Protein 1+ (Negative) H 09/17/22 23:51 Urine Glucose (UA) Negative (Negative) 09/17/22 23:51 Urine Ketones Negative (Negative) 09/17/22 23:51 Urine Blood Trace (Negative) H 09/17/22 23:51 Urine Nitrite Negative (Negative) 09/17/22 23:51 Urine Bilirubin Negative (Negative) 09/17/22 23:51 Urine Urobilinogen Negative (Negative) 09/17/22 23:51 Ur Leukocyte Esterase 2+ (Negative) H 09/17/22 23:51 Urine WBC (Auto) >30 /hpf (0-5) H 09/17/22 23:51 Urine RBC (Auto) 0-4 /hpf (0-4) 09/17/22 23:51 U Hyaline Cast (Auto) 0 /lpf (0-5) 09/17/22 23:51 U Epithel Cells (Auto) >30 /lpf (0-5) H 09/17/22 23:51 Urine Bacteria (Auto) Negative (Negative) 09/17/22 23:51 Urine Yeast Not Reportable 09/17/22 23:51 Urine Opiates Screen Neg (Neg) 09/17/22 23:51 Ur Methadone, Qual Neg (Neg) 09/17/22 23:51 Urine Barbiturates Neg (Neg) 09/17/22 23:51 Ur Phencyclidine (PCP) Neg (Neg) 09/17/22 23:51 U Amphetamin/Meth Scrn Pos (Neg) H 09/17/22 23:51 MDMA (Ecstasy) Screen Neg (Neg) 09/17/22 23:51 U Benzodiazepines Scrn Neg (Neg) 09/17/22 23:51 Ur Cocaine Metabolite Neg (Neg) 09/17/22 23:51 U Marijuana (THC) Screen Neg (Neg) 09/17/22 23:51 Ethyl Alcohol mg/dL < 10.0 mg/dl (<10.0) 09/18/22 00:26 SARS-CoV-2, RNA, NAAT NEGATIVE (NEGATIVE) 09/17/22 22:33 Impressions Abdomen/Pelvis CT 09/17/22 22:[address] WITH IV CONTRAST CT DOSE: 1511.26 mGy.cm HISTORY: RUQ pain TECHNIQUE: Multiaxial CT images of the abdomen and pelvis were performed following the use of intravenous contrast. A dose lowering technique was utilized adhering to the principles of ALARA. COMPARISON STUDY: Abdomen and pelvis CT 09/05/2022. FINDINGS: Clear lung bases. No pneumatosis or pneumoperitoneum. Unremarkable spleen, pancreas and adrenal glands. Cholecystectomy. Hepatomegaly with hepatic steatosis. Patent portal vein. Unremarkable left kidney. Subcentimeter hypodense focus of the inferior pole left kidney likely represents a cyst. Complex 2 cm slightly hypodense lesion involving the cortex of the posterior interpolar right kidney demonstrates a dependent 2 mm calcification. This remains unchanged. Partial distention of the urinary bladder with mild wall thickening. Mildly heterogeneous appearance of the uterus. Mild atherosclerosis of the aorta. No lymphadenopathy. No bowel obstruction or bowel wall thickening. There is partial distention of the large bowel. Appendectomy. No ascites or mesenteric inflammation. Unremarkable soft tissues. No acute fracture identified. Stable submucosal fat within the colon suggesting chronic inflammatory change. IMPRESSION: 1. No acute intra-abdominal or intrapelvic abnormality identified. 2. No bowel obstruction or bowel wall thickening. 3. Appendectomy and cholecystectomy. 4. Hepatomegaly with hepatic steatosis. 5. Complex 2 cm lesion of the right kidney is stable compared to the 2020 exam. This may represent a complex cyst, however could be correlated with a nonemergent follow-up ultrasound. ACT 112: Negative or not required by law. Electronically signed by: Jovan Abreu M.D. 09/18/2022 7:49 AM (1) Hypertension Hypertension type: unspecified Qualified Code(s): I10 - Essential (primary) hypertension
--- NOTE | 2022-09-18 13:57 | Magnetic Resonance Report ---
MR MRCP HISTORY: 36 years-old Female abdominal pain, elevated LFTs acute generalized abdominal pain with sanam vated LFTs COMPARISON: CT abdomen pelvis 09/17/2022, MRI abdomen 12/19/2012 TECHNIQUE: MRCP was obtained without the use of IV contrast. FINDINGS: Cholecystectomy. Mild intrahepatic and extrahepatic biliary ductal dilation redemonstrated with the c ommon bile duct measuring up to 8 mm. No obstructing biliary stone or stricture. No choledocholithias is. No pancreatic ductal dilation or pancreatic divisum. Hepatomegaly with hepatic steatosis. The amisha dy is motion degraded. 2.5 x 1.8 cm T2 hyperintense focus of the right kidney on image 31. Unremarkab le spleen, pancreas and adrenal glands. No free fluid. IMPRESSION: 1. Cholecystectomy with likely postsurgical biliary ductal dilation. No choledocholithiasis identifie d. 3. Hepatomegaly with hepatic steatosis. ACT 112: Negative or not required by law. The above report was generated using voice recognition software. It may contain grammatical, syntax o r spelling errors. Electronically signed by: Jeancarlos Armas M.D. 09/18/2022 1:55 PM
--- NOTE | 2022-09-18 14:08 | Electrocardiogram Report ---
Test Reason : Blood Pressure : / mmHG Vent. Rate : 103 BPM Atrial Rate : 103 BPM P-R Int : 142 ms QRS Dur : 102 ms QT Int : 356 ms P-R-T Axes : 051 012 080 degrees QTc Int : 466 ms Sinus tachycardia Possible Left atrial enlargement Incomplete right bundle branch block Poor R wave progression, consider anterior DC vs. lead placement vs. LVH Abnormal ECG When compared with ECG of 19-JUN-2022 02:15, No significant change was found Confirmed by Tucker Knight ([id number]) on 09/18/2022 2:08:21 PM Referred By: REFERRED SELF Confirmed By:Tucker Knight
[2022-09-19] MEDS: ONDANSETRON INJ 2 MG/ML 2 ML VIAL IV PRN ×2 (00:15→18:42)
[2022-09-19] MEDS: AZTREONAM 1,000 MG in DEXTROSE 5% 100 ML IV SCH ×2 (00:15→08:10)
[2022-09-19] MEDS: HYDROmorphone INJ 0.5 MG/0.5 ML SYR IV PRN ×6 (00:20→23:04)
[2022-09-19 07:31] LABS: Hematocrit (blood only) 37.6 % (37.0-47.0); Hemoglobin 12.2 g/dl (12.0-16.0); Mean Corpuscular Hemoglobin 32.5 pg (25.0-34.0); Mean Corpuscular Hgb Conc 32.4 g/dL (32.0-36.0); Mean Corpuscular Volume 100.3 fL (80.0-100.0); Mean Platelet Volume 9.8 fL (9.4-12.4); Nucleated RBC # (auto) 0.02 K/uL (0-0.12); Nucleated RBC % (auto) 0.1 %; Platelet Count 481 K/uL (130-400); RDW Coefficient of Variation 14.6 % (11.5-14.5); Red Blood Count 3.75 M/uL (4.20-5.40); White Blood Count 19.61 K/ul (4.8-10.8)
[2022-09-19 07:54] LABS: Basophils # (auto) 0.29 K/uL (0-0.2); Basophils % (auto) 1.5 %; Eosinophils % (auto) 4.6 %; Immature Granulocytes # (auto) 0.97 K/uL (0.01-0.20); Immature Granulocytes % (auto) 4.9 %; Lymphocytes # (auto) 4.45 K/uL (1.2-3.4); Lymphocytes % (auto) 22.7 %; Monocytes # (auto) 1.34 K/uL (0.11-0.59); Monocytes % (auto) 6.8 %; Neutrophils # (auto) 11.66 K/uL (1.40-6.50); Neutrophils % (auto) 59.5 %
[2022-09-19] MEDS: oxyCODONE HCL IR 5 MG TAB (IMMEDIATE RELEASE) PO PRN ×4 (08:09→21:59)
[2022-09-19] MEDS: DICYCLOMINE HCL 10 MG CAP PO SCH ×4 (08:10→21:59)
[2022-09-19] MEDS: PANTOprazole 40 MG TAB PO SCH (08:11)
[2022-09-19] MEDS: NYSTATIN SUSP 500,000 U/5 ML UDC PO SCH (08:11)
[2022-09-19] MEDS: SPIRONOLACTONE 25 MG TAB PO SCH (08:11)
[2022-09-19] MEDS: buPROPion SR 100 MG TABCR PO SCH (08:11)
[2022-09-19] MEDS: lisinopril 10 MG TAB PO SCH (08:11)
[2022-09-19] MEDS: hydroCHLOROthiazide 25 MG TAB PO SCH (08:11)
[2022-09-19] MEDS: amLODIPine BESYLATE 5 MG TAB PO SCH (08:11)
[2022-09-19] MEDS: THIAMINE HCL 100 MG TAB PO SCH (08:12)
[2022-09-19] MEDS: FOLIC ACID 400 MCG TAB PO SCH (08:12)
[2022-09-19] MEDS: MULTIVITAMIN TAB PO SCH (08:12)
[2022-09-19] MEDS: HEPARIN SOD 5,000 UNIT/0.5 ML VIAL SQ SCH ×3 (08:13→22:01)
[2022-09-19 08:23] LABS: Bilirubin,Total 0.8 mg/dl (0.2-1.0); Creatinine Clr Calc Pharmacy 170.4 ml/min; Potassium 3.3 mmol/L (3.5-5.1)
[2022-09-19 08:36] LABS: Albumin Level 3.7 gm/dl (3.4-5.0); BUN Creatinine Ratio 4.7 (10-20); Calcium 9.7 mg/dl (8.5-10.1); Est GFR (African American) 134.9 ml/min; Est GFR (Non-African American) 116.4 ml/min; Globulin 3.6 gm/dl (2.5-4.0); Total Protein 7.3 gm/dl (6.0-8.3)
[2022-09-19] MEDS ORDERED: NICOTINE POLACRILEX 2 MG GUM MT PRN (09:05)
[2022-09-19] MEDS ORDERED: cefTRIAXone SODIUM 1,000 MG in DEXTROSE 5% AD-VAN 50 ML IV SCH (09:15)
[2022-09-19] MEDS ORDERED: cefTRIAXone SODIUM 2,000 MG in DEXTROSE 5% 50 ML IV SCH (10:00)
[2022-09-19] MEDS: COLESTIPOL HCL 1 GM TAB PO SCH ×2 (10:11→21:59)
[2022-09-19] MEDS: POTASSIUM CHLORIDE / WTR 10 MEQ/100 ML PLCT IV SCH ×2 (10:11→12:21)
[2022-09-19] MEDS: NICOTINE 21 MG/24 HR TDSY TD SCH (10:58)
--- NOTE | 2022-09-19 13:03 | Hospitalist Progress Note ---
Date of Service September 19, 2022 Assessment & Plan (1) Hepatomegaly: (2) Right upper quadrant abdominal pain: (3) Elevated LFTs: Plan: Recent admission with right upper quadrant abdominal pain. Had colonoscopy and endoscopy done last admission. Endoscopy done on September 08; grade A esophagitis with no bleeding. Concern for portal hypertensive gastropathy. H. pylori negative Colonoscopy done in September 08; 4 mm polyp in the cecum; removed with cold snare. 2 mm polyp in ascending colon; removed. Cecum polypectomy showed tubular adenoma. No other abnormality found. CT abdomen and pelvis shows hepatomegaly ALP continues to be elevated GI consulted; recommend MRCP to rule out microlithiasis. Colestipol BID and Dicyclomine achs added MRCP Cholecystectomy with likely postsurgical biliary ductal dilation. No choledocholithiasis identified. Hepatomegaly with hepatic steatosis (4) Leukocytosis: (5) Thrombocytosis: Plan: Was recently admitted with urinary tract infection; treated with IV antibiotic and switch to oral at discharge. Reports no urinary symptoms presently Leukocytosis persistently present Peripheral blood smear done during last admission; no significant abnormalities were found. Oncology consulted; work up for CML/myeloproliferative neoplasm. Plan to see her in clinic as per oncology (6) Hypokalemia: Plan: History of significant hypokalemia Repleted (7) Hypertension: Plan: Continue on hydrochlorothiazide, amlodipine, lisinopril and spironolactone Plan Full code DVT heparin Admission and Anticipated Discharge Date Admission Date: September 18, 2022 Subjective Patient seen and examined at bedside. She reports continued right upper quadrant pain. No overnight significant events. Review of Systems Review of Systems: All systems reviewed & are unremarkable except as noted in Subjective Physical Exam Physical Exam: GENERAL: The patient is obese, not in acute distress. VITAL SIGNS: Temperature 36.1, pulse 106, respiratory rate 12, blood pressure 123/73, oxygen 96% on room air. HEENT: Pupils equal, round and reactive to light. Oral mucosa moist. NECK: No JVD or neck masses. CARDIOVASCULAR: S1 and S2 heard. Regular rate and rhythm. No murmur, no gallop. RESPIRATORY SYSTEM: Normal AP diameter. No accessory muscle use. No wheezing, no crackles. ABDOMEN: Soft, bowel sounds present. Right upper quadrant tenderness present. Guarding present. No distention. CENTRAL NERVOUS SYSTEM: Cranial nerves II-XII grossly intact, nonfocal. EXTREMITIES: No edema, no erythema. Results & Data Results & Data ([facility]) Vital Signs (Past 12 Hours) Vital Signs Temp Pulse Resp BP Pulse Ox O2 Del Method 09/19/22 08:00 Room Air 09/19/22 08:32 37.8 C H 90 16 130/78 94 Room Air Laboratory Results Laboratory Results WBC 19.61 K/ul (4.8-10.8) H 09/19/22 06:47 RBC 3.75 M/uL (4.20-5.40) L 09/19/22 06:47 Hgb 12.2 g/dl (12.0-16.0) 09/19/22 06:47 Hct 37.6 % (37.0-47.0) 09/19/22 06:47 MCV 100.3 fL (80.0-100.0) H 09/19/22 06:47 MCH 32.5 pg (25.0-34.0) 09/19/22 06:47 MCHC 32.4 g/dL (32.0-36.0) 09/19/22 06:47 RDW Std Deviation 54.0 fL (36.4-46.3) H 09/19/22 06:47 RDW Coeff of Carmen 14.6 % (11.5-14.5) H 09/19/22 06:47 Plt Count 481 K/uL (130-400) H 09/19/22 06:47 MPV 9.8 fL (9.4-12.4) 09/19/22 06:47 Immature Gran % (Auto) 4.9 % 09/19/22 06:47 Neut % (Auto) 59.5 % 09/19/22 06:47 Lymph % (Auto) 22.7 % 09/19/22 06:47 [place] % (Auto) 6.8 % 09/19/22 06:47 Eos % (Auto) 4.6 % 09/19/22 06:47 Baso % (Auto) 1.5 % 09/19/22 06:47 Neut # (Auto) 11.66 K/uL (1.40-6.50) H 09/19/22 06:47 Lymph # (Auto) 4.45 K/uL (1.2-3.4) H 09/19/22 06:47 [place] # (Auto) 1.34 K/uL (0.11-0.59) H 09/19/22 06:47 Eos # (Auto) 0.90 K/uL (0-0.50) H 09/19/22 06:47 Baso # (Auto) 0.29 K/uL (0-0.2) H 09/19/22 06:47 Immature Gran # (Auto) 0.97 K/uL (0.01-0.20) H 09/19/22 06:47 Absolute Nucleated RBC 0.02 K/uL (0-0.12) 09/19/22 06:47 Nucleated RBC % (auto) 0.1 % 09/19/22 06:47 Toxic Vacuolation 1+ 09/18/22 06:35 Sodium 138 mmol/L (136-145) 09/19/22 06:47 Potassium 3.3 mmol/L (3.5-5.1) L 09/19/22 06:47 Chloride 101 mmol/L (98-107) 09/19/22 06:47 Carbon Dioxide 28 mmol/L (21-32) 09/19/22 06:47 Anion Gap 9 (3-11) 09/19/22 06:47 BUN 3 mg/dl (6-23) L 09/19/22 06:47 Creatinine 0.64 mg/dl (0.6-1.2) 09/19/22 06:47 Est Cr Clr Drug Dosing 170.4 ml/min 09/19/22 06:47 Est GFR ( Amer) 134.9 ml/min 09/19/22 06:47 Est GFR (Non-Af Amer) 116.4 ml/min 09/19/22 06:47 BUN/Creatinine Ratio 4.7 (10-20) L 09/19/22 06:47 Glucose 83 mg/dl (70-99(Fasting)) 09/19/22 06:47 Calcium 9.7 mg/dl (8.5-10.1) 09/19/22 06:47 Magnesium 1.7 mg/dl (1.7-2.4) 09/18/22 06:35 Total Bilirubin 0.8 mg/dl (0.2-1.0) 09/19/22 06:47 AST 87 U/L (13-39) H 09/19/22 06:47 ALT 19 U/L (7-52) 09/19/22 06:47 Alkaline Phosphatase 200 U/L (34-104) H 09/19/22 06:47 Troponin I High Sens 7.0 pg/ml (0-14) 09/18/22 14:30 Total Protein 7.3 gm/dl (6.0-8.3) 09/19/22 06:47 Albumin 3.7 gm/dl (3.4-5.0) 09/19/22 06:47 Globulin 3.6 gm/dl (2.5-4.0) 09/19/22 06:47 Albumin/Globulin Ratio 1.0 (0.9-2) 09/19/22 06:47 Urine Color Dark Yellow 09/17/22 23:51 Urine Appearance Cloudy (Clear) A 09/17/22 23:51 Urine pH 6.5 (4.5-7.5) 09/17/22 23:51 Ur Specific [place] > 1.045 (1.000-1.030) H 09/17/22 23:51 Urine Protein 1+ (Negative) H 09/17/22 23:51 Urine Glucose (UA) Negative (Negative) 09/17/22 23:51 Urine Ketones Negative (Negative) 09/17/22 23:51 Urine Blood Trace (Negative) H 09/17/22 23:51 Urine Nitrite Negative (Negative) 09/17/22 23:51 Urine Bilirubin Negative (Negative) 09/17/22 23:51 Urine Urobilinogen Negative (Negative) 09/17/22 23:51 Ur Leukocyte Esterase 2+ (Negative) H 09/17/22 23:51 Urine WBC (Auto) >30 /hpf (0-5) H 09/17/22 23:51 Urine RBC (Auto) 0-4 /hpf (0-4) 09/17/22 23:51 U Hyaline Cast (Auto) 0 /lpf (0-5) 09/17/22 23:51 U Epithel Cells (Auto) >30 /lpf (0-5) H 09/17/22 23:51 Urine Bacteria (Auto) Negative (Negative) 09/17/22 23:51 Urine Yeast Not Reportable 09/17/22 23:51 Stool Occult Bld Scrn Negative (Negative) 09/18/22 14:30 Urine Opiates Screen Neg (Neg) 09/17/22 23:51 Ur Methadone, Qual Neg (Neg) 09/17/22 23:51 Urine Barbiturates Neg (Neg) 09/17/22 23:51 Ur Phencyclidine (PCP) Neg (Neg) 09/17/22 23:51 U Amphetamin/Meth Scrn Pos (Neg) H 09/17/22 23:51 MDMA (Ecstasy) Screen Neg (Neg) 09/17/22 23:51 U Benzodiazepines Scrn Neg (Neg) 09/17/22 23:51 Ur Cocaine Metabolite Neg (Neg) 09/17/22 23:51 U Marijuana (THC) Screen Neg (Neg) 09/17/22 23:51 Ethyl Alcohol mg/dL < 10.0 mg/dl (<10.0) 09/18/22 00:26 SARS-CoV-2, RNA, NAAT NEGATIVE (NEGATIVE) 09/17/22 22:33 Impressions Abdomen/Pelvis CT 09/17/22 22:[address] WITH IV CONTRAST CT DOSE: 1511.26 mGy.cm HISTORY: RUQ pain TECHNIQUE: Multiaxial CT images of the abdomen and pelvis were performed following the use of intravenous contrast. A dose lowering technique was utilized adhering to the principles of ALARA. COMPARISON STUDY: Abdomen and pelvis CT 09/05/2022. FINDINGS: Clear lung bases. No pneumatosis or pneumoperitoneum. Unremarkable spleen, pancreas and adrenal glands. Cholecystectomy. Hepatomegaly with hepatic steatosis. Patent portal vein. Unremarkable left kidney. Subcentimeter hypodense focus of the inferior pole left kidney likely represents a cyst. Complex 2 cm slightly hypodense lesion involving the cortex of the posterior interpolar right kidney demonstrates a dependent 2 mm calcification. This remains unchanged. Partial distention of the urinary bladder with mild wall thickening. Mildly heterogeneous appearance of the uterus. Mild atherosclerosis of the aorta. No lymphadenopathy. No bowel obstruction or bowel wall thickening. There is partial distention of the large bowel. Appendectomy. No ascites or mesenteric inflammation. Unremarkable soft tissues. No acute fracture identified. Stable submucosal fat within the colon suggesting chronic inflammatory change. IMPRESSION: 1. No acute intra-abdominal or intrapelvic abnormality identified. 2. No bowel obstruction or bowel wall thickening. 3. Appendectomy and cholecystectomy. 4. Hepatomegaly with hepatic steatosis. 5. Complex 2 cm lesion of the right kidney is stable compared to the 2020 exam. This may represent a complex cyst, however could be correlated with a nonemergent follow-up ultrasound. ACT 112: Negative or not required by law. Electronically signed by: Jovan Abreu M.D. 09/18/2022 7:49 AM Cholangiopancreatography MRI 09/18/22 09:21 MR MRCP HISTORY: 36 years-old Female abdominal pain, elevated LFTs acute generalized abdominal pain with elevated LFTs COMPARISON: CT abdomen pelvis 09/17/2022, MRI abdomen 12/19/2012 TECHNIQUE: MRCP was obtained without the use of IV contrast. FINDINGS: Cholecystectomy. Mild intrahepatic and extrahepatic biliary ductal dilation redemonstrated with the common bile duct measuring up to 8 mm. No obstructing biliary stone or stricture. No choledocholithiasis. No pancreatic ductal dilation or pancreatic divisum. Hepatomegaly with hepatic steatosis. The study is motion degraded. 2.5 x 1.8 cm T2 hyperintense focus of the right kidney on image 31. Unremarkable spleen, pancreas and adrenal glands. No free fluid. IMPRESSION: 1. Cholecystectomy with likely postsurgical biliary ductal dilation. No choledocholithiasis identified. 3. Hepatomegaly with hepatic steatosis. ACT 112: Negative or not required by law. The above report was generated using voice recognition software. It may contain grammatical, syntax or spelling errors. Electronically signed by: Jeancarlos Armas M.D. 09/18/2022 1:55 PM (1) Hypertension Hypertension type: unspecified Qualified Code(s): I10 - Essential (primary) hypertension
[2022-09-20] MEDS: HYDROmorphone INJ 0.5 MG/0.5 ML SYR IV PRN ×2 (03:39→07:53)
[2022-09-20] MEDS: HEPARIN SOD 5,000 UNIT/0.5 ML VIAL SQ SCH (05:36)
[2022-09-20] MEDS: oxyCODONE HCL IR 5 MG TAB (IMMEDIATE RELEASE) PO PRN ×2 (06:00→10:03)
[2022-09-20 06:17] LABS: Hematocrit (blood only) 35.8 % (37.0-47.0); Hemoglobin 11.9 g/dl (12.0-16.0); Mean Corpuscular Hemoglobin 32.8 pg (25.0-34.0); Mean Corpuscular Hgb Conc 33.2 g/dL (32.0-36.0); Mean Corpuscular Volume 98.6 fL (80.0-100.0); Mean Platelet Volume 9.5 fL (9.4-12.4); Nucleated RBC # (auto) 0.04 K/uL (0-0.12); Nucleated RBC % (auto) 0.2 %; Platelet Count 482 K/uL (130-400); RDW Coefficient of Variation 14.5 % (11.5-14.5); RDW Standard Deviation 52.4 fL (36.4-46.3); Red Blood Count 3.63 M/uL (4.20-5.40); White Blood Count 18.89 K/ul (4.8-10.8)
[2022-09-20 06:43] LABS: Albumin Globulin Ratio 1.1 (0.9-2); Albumin Level 3.7 gm/dl (3.4-5.0); BUN Creatinine Ratio 4.8 (10-20); Bilirubin,Total 0.6 mg/dl (0.2-1.0); Calcium 9.9 mg/dl (8.5-10.1); Creatinine Clr Calc Pharmacy 156.7 ml/min; Est GFR (African American) 136.4 ml/min; Est GFR (Non-African American) 117.6 ml/min; Globulin 3.3 gm/dl (2.5-4.0); Potassium 3.4 mmol/L (3.5-5.1)
[2022-09-20 06:47] LABS: Basophils % (auto) 1.6 %; Eosinophils # (auto) 0.84 K/uL (0-0.50); Eosinophils % (auto) 4.4 %; Immature Granulocytes # (auto) 1.23 K/uL (0.01-0.20); Immature Granulocytes % (auto) 6.5 %; Lymphocytes # (auto) 4.27 K/uL (1.2-3.4); Lymphocytes % (auto) 22.6 %; Monocytes # (auto) 1.26 K/uL (0.11-0.59); Monocytes % (auto) 6.7 %; Neutrophils # (auto) 10.99 K/uL (1.40-6.50); Neutrophils % (auto) 58.2 %; Polychromasia 1+
[2022-09-20] MEDS: DICYCLOMINE HCL 10 MG CAP PO SCH (08:00)
[2022-09-20] MEDS: hydroCHLOROthiazide 25 MG TAB PO SCH (08:36)
[2022-09-20] MEDS: lisinopril 10 MG TAB PO SCH (08:36)
[2022-09-20] MEDS: amLODIPine BESYLATE 5 MG TAB PO SCH (08:36)
[2022-09-20] MEDS: FOLIC ACID 400 MCG TAB PO SCH (08:36)
[2022-09-20] MEDS: MULTIVITAMIN TAB PO SCH (08:37)
[2022-09-20] MEDS: PANTOprazole 40 MG TAB PO SCH (08:37)
[2022-09-20] MEDS: SPIRONOLACTONE 25 MG TAB PO SCH (08:37)
[2022-09-20] MEDS: NICOTINE 21 MG/24 HR TDSY TD SCH (08:37)
[2022-09-20] MEDS: THIAMINE HCL 100 MG TAB PO SCH (08:37)
[2022-09-20] MEDS: COLESTIPOL HCL 1 GM TAB PO SCH (10:03)
--- NOTE | 2022-09-20 10:46 | Discharge Summary ---
Date of Service September 20, 2022 Admission HPI Per Admitting Provider This is a 36-year-old female with past medical history significant for chronic hypokalemia, history of hypertension, history of hypertensive urgency, morbid obesity, opioid dependence in remission, history of seizure-like activity, bipolar I disorder, tobacco abuse, generalized anxiety disorder, history of posttraumatic stress disorder, history of alcoholism, she says she is not drinking since 08/07/2022 presents with abdominal pain and chronic diarrhea for the last 6 months, several episodes a day, states the stools are dark in color. The patient was recently in hospital with right upper quadrant abdominal pain. Imaging studies were unremarkable except for hepatomegaly and right kidney cyst she was seen by GI and s/p EGD and colonoscopy, which showed esophagitis and possible portal hypertensive gastropathy. Colonoscopy revealed 4-mm polyp in the cecum, removed 2mm polyp in transverse colon , which was also removed. Biopsy was performed showing microscopic colitis. Her electrolytes were replaced and she was discharged on 09/06/2022, followed with her family doctor on 09/11/2022 and outpatient labs were done today morning, which showed triglycerides were as high as 330. Her white count was 25,000 and she was advised to come to the hospital. Having right upper quadrant abdominal pain, severe in nature associated with nausea and diarrhea. Says having night sweating. Denies any fevers, no chest pain, no shortness of breath, no cough, no headache, no blurred visions, no earache, no runny nose, no sore throat. Hemodynamically stable. Admission Exam Per Admitting Provider GENERAL: The patient is obese, not in acute distress. VITAL SIGNS: Temperature 36.1, pulse 106, respiratory rate 12, blood pressure 123/73, oxygen 96% on room air. HEENT: Pupils equal, round and reactive to light. Oral mucosa moist. NECK: No JVD or neck masses. CARDIOVASCULAR: S1 and S2 heard. Regular rate and rhythm. No murmur, no gallop. RESPIRATORY SYSTEM: Normal AP diameter. No accessory muscle use. No wheezing, no crackles. ABDOMEN: Soft, bowel sounds present. Right upper quadrant tenderness present. Guarding present. No distention. CENTRAL NERVOUS SYSTEM: Cranial nerves II-XII grossly intact, nonfocal. EXTREMITIES: No edema, no erythema. Principal Diagnosis (1) Hepatomegaly: (2) Right upper quadrant abdominal pain: (3) Elevated LFTs (4) Leukocytosis: (5) Thrombocytosis: Discharge Exam GENERAL: The patient is obese, not in acute distress. HEENT: Pupils equal, round and reactive to light. Oral mucosa moist. NECK: No JVD or neck masses. CARDIOVASCULAR: S1 and S2 heard. Regular rate and rhythm. No murmur, no gallop. RESPIRATORY SYSTEM: Normal AP diameter. No accessory muscle use. No wheezing, no crackles. ABDOMEN: Soft, bowel sounds present. Right upper quadrant tenderness present. Guarding present. No distention. CENTRAL NERVOUS SYSTEM: Cranial nerves II-XII grossly intact, nonfocal. EXTREMITIES: No edema, no erythema. Discharge Data Allergies Allergy/AdvReac Type Severity Reaction Status Date / Time nut - unspecified Allergy Severe Anaphylaxis Verified 09/08/22 14:23 Penicillins Allergy Severe Difficulty Verified 09/08/22 14:23 Breathing tree nut Allergy Severe Anaphylaxis Verified 09/08/22 14:23 morphine Allergy Intermediate Hives Verified 09/08/22 14:23 mushroom Allergy Intermediate Hives Verified 09/08/22 14:23 Consultations 09/17/22 23:46 ED Decision to Admit Stat 09/18/22 08:00 Consult Gastroenterology Routine 09/18/22 10:32 Consult Hematology Routine Ordered Studies 09/17/22 22:06 CT abd pelvis IV con only Urgent 09/18/22 09:21 MRI MRCP [MR MRCP] Routine Hospital Course (1) Hepatomegaly: (2) Right upper quadrant abdominal pain: (3) Elevated LFTs: Recent admission with right upper quadrant abdominal pain. Had colonoscopy and endoscopy done last admission. Endoscopy done on September 08; grade A esophagitis with no bleeding. Concern for portal hypertensive gastropathy. H. pylori negative Colonoscopy done in September 08; 4 mm polyp in the cecum; removed with cold snare. 2 mm polyp in ascending colon; removed. Cecum polypectomy showed tubular adenoma. No other abnormality found. CT abdomen and pelvis shows hepatomegaly During the hospitalization, GI was consulted. Recommended to do MRCP to rule out microlithiasis. MRCP was done which showed "Cholecystectomy with likely postsurgical biliary ductal dilation. No choledocholithiasis identified. Hepatomegaly with hepatic steatosis". No further recommendation was given by GI. Patient was started on Colestipol BID and Dicyclomine achs by GI. Prescription was provided on discharge Patient required IV Dilaudid and oxycodone for pain control during the hospitalization; discharged on as needed Tylenol and oxycodone. Patient to follow-up with her primary care doctor. (4) Leukocytosis: (5) Thrombocytosis: Was recently admitted with urinary tract infection; treated with IV antibiotic and switch to oral at discharge. Reports no urinary symptoms presently Leukocytosis persistently present Peripheral blood smear done during last admission; no significant abnormalities were found. During the hospitalization, hematology/oncology was consulted. Since leukocytosis has been persistent since March last year, work-up for CML/ myeloproliferative neoplasm. Patient to follow-up with Dr. Oviedo after discharge to discuss regarding the results. Total Time Total Time Spent Total Time Spent (In Minutes): 40 Total Time Includes: Examination of the Patient, Discharge Planning, Medication Reconciliation, Communication With Other Providers and Other Discharge Plan Discharge Items Patient Disposition: Home - Self-Care Reason For Visit: ABDOMINAL PAIN, LEUKOCYTOSIS Discharge Diagnosis: (1) Hepatomegaly: (2) Right upper quadrant abdominal pain: (3) Elevated LFTs: (4) Leukocytosis: (5) Thrombocytosis: Activity: Resume your previous activity Non-emergency contact: Primary Care Provider Call non-emergency contact if: you have any medication questions Follow-up/Referrals: Angelic Pereira DO [Primary Care Provider] - Diet: Regular Addtl Attending Provider Instructions: You were admitted here with abdominal pain. CT abdomen and pelvis was done which showed enlarged liver; similar to your previous scan. MRI/MRCP was done which showed MRCPCholecystectomy with likely postsurgical biliary ductal dilation. No choledocholithiasis identified. Hepatomegaly with hepatic steatosis. For the abdominal pain: You are prescribed oxycodone 5 to 10 mg tablet to be taken as needed. Please use Tylenol preferentially. You are also prescribed dicyclomine 10 mg to be taken twice daily. You are also prescribed Colestipol 1 g to be taken twice daily for the diarrhea. You were also found to have high WBC count. Your blood culture during the hospitalization was negative. You were evaluated by hematology; few test are sent out. You will be called with results. Please follow-up with hematology/oncology (Dr. Oviedo). Please follow-up with her doctor sometime next week. Pending Studies at Discharge: Yes Studies:: FISH BCR/ABL t (9,22), ALYSIA Molec MPN + sequential rflx Stand-Alone Forms: My [facility] [place], Smoking Cessation Medications and DC Order Prescriptions: New dicyclomine 10 mg Capsule 10 mg PO ACHS Qty: 30 0RF colestipol [Colestid] 1 gram Tablet 1 g PO DAILY@1000,2200 Qty: 60 0RF acetaminophen 325 mg Tablet 650 mg PO Q4H PRN (Reason: fever or pain) Qty: 60 0RF oxycodone 5 mg Tablet 5 - 10 mg PO Q4 PRN (Reason: severe pain (scale score 7-10)) Qty: 20 0RF Continued epinephrine [EpiPen] 0.3 mg/0.3 mL Auto-Injector 0.3 mg IM DIRECTED PRN (Reason: Allergic Reaction) Label Comments: pt says nothing has changed in a week since shes been here last Rx Instructions: for a severe reaction: Place oragne end against outer thigh,press firmly, hold in place for 10 seconds and go to the emergency room. amlodipine 10 mg Tablet 10 mg PO DAILY lisinopril 10 mg tablet 10 mg PO QAM albuterol sulfate 90 mcg/actuation HFA aerosol inhaler 2 puff INHALATION Q4H PRN (Reason: Shortness Of Breath Or Wheezing) hydrochlorothiazide 25 mg tablet 25 mg PO QAM pantoprazole 40 mg tablet,delayed release (DR/EC) 40 mg PO QAM spironolactone 25 mg Tablet 25 mg PO QAM Qty: 30 0RF nystatin 100,000 unit/mL suspension 5 ml PO QID Rx Instructions: end date 09/27/22 lidocaine HCl [Lidocaine Viscous] 2 % solution 5 ml PO UD PRN (Reason: Breakthrough Pain) Rx Instructions: swish and spit folic acid 400 mcg Tablet 400 mcg PO QAM Qty: 30 0RF multivitamin with folic acid [Daily-Rajendra (with folic acid)] 400 mcg Tablet 1 tab PO QAM Qty: 30 0RF thiamine HCl (vitamin B1) 100 mg Tablet 100 mg PO QAM Qty: 30 0RF Discontinued bupropion HCl 100 mg Tablet Sustained-Release 12 Hr 100 mg PO AMHS ibuprofen 800 mg Tablet 800 mg PO TID Rx Instructions: take with food Discharge Orders: Discharge Order (Routine); Ordered 09/20/22 Ordered By: Maksim Curiel Admission Data Admit Date/Time: 09/18/22 00:56 Attending Provider: Maksim Curiel Admit Provider: Gilberto Villalobos Primary Care Provider: Angelic Pereira Other Providers: Gilberto Villalobos ; Salvatore Ayala ; Wilfred Leyva ; Josette Rodriguez ; Clare Bean ; Kylie Carreon ; Anjali Kemp ; Donaldo Parker ; Jenaro Munoz ; Maricarmen Ornelas ; Gladys Castrejon ; Trey Ocampo ; Sandy Crawford ; Eleanor Caldera ; Bozena Hawkins ; Alexandria Morales ; Dilma Patterson ; Bryon Diane ; Damir Cunningham ; Sanjuana Mandujano ; Laura Pereira Jr ; Merced Wilder ; Floresita Crandall ; Rashad Royal ; Taylor Alvarez ; Keri Russo ; J Luis Orozco ; Patrice Crow ; Pauline Oviedo ; Felix,No Attending Other Interventions: Discharge Summary Assessment (RN) Last Done: 09/20/22 10:07
[2022-09-20 11:23] LABS: Amphetamine Urine, Confirm 1930 ng/mL (<250); Methamphetamine, Ur Confirm NEGATIVE ng/mL (<250)
--- NOTE | 2022-09-23 10:45 | Coding Query ---
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 Please assist us with the question(s) below: Coding Question(s): Pt admitted with RUQ abdominal pain with GI following . Prior Cholecystectomy . Rad tests revealed ductal dilation . DS documented RUQ abdominal pain. Please document, if known or suspected, the etiology of the abdominal pain. Thanks for your help! Silvano Land [employer] [facility] Physician's Response(s): Principal Diagnosis: "that condition established after study, to be chiefly responsible for occasioning the admission of the patient to the hospital for care." Co-Existing Principal Diagnosis: "when two or more diagnoses equally meet the criteria for principal diagnosis as determined by the circumstances of admission, diagnostic work up, and/or therapy provided, and the Alphabetic Index, Tabular List, or another coding guideline does not provide sequencing direction, any one of the diagnoses may be sequenced first." "When the physician has documented what appears to be a current diagnosis in the body of the record, but has not included the diagnosis in the final diagnostic statement, the physician should be asked whether the diagnosis should be added." (Source Coding Clinic 2 QTR90. p3-4) [id number]
[2022-10-02 09:51] LABS: NEO JAK2 Mut Exon 12-14 Molec See MPN Panel; NEO MPL Exon10 W1515,S505 mut See MPN Panel
== END 2022-09-20 10:39 | disposition home or self-care (01) | DRG 392 ==
LOC: ED 19:53 → 3E 09-18 00:56

== ENCOUNTER 2022-12-30 16:59 | Inpatient (IN) ==
[2022-12-30] MEDS ORDERED: SODIUM CHLORIDE 0.9% 1000ML 1,000 ML IV ONE ×2 (17:09→18:25)
[2022-12-30] MEDS ORDERED: KETOROLAC TROMETHAMINE 15 MG/ML VIAL IV STA (17:09)
[2022-12-30] MEDS ORDERED: ONDANSETRON INJ 2 MG/ML 2 ML VIAL IV STA (17:09)
[2022-12-30 17:40] LABS: iSTAT Blood Urea Nitrogen < 3 mg/dl (7-18); iSTAT Carbon Dioxide 14 mmol/L (24-31); iSTAT Chloride 108 mmol/L (101-112); iSTAT Creatinine 0.8 mg/dl (0.6-1.3); iSTAT Glucose 97 mg/dl (70-99); iSTAT Hematocrit 34 % (37-47); iSTAT Hemoglobin 11.6 g/dl (12.0-16.0); iSTAT Ionized Calcium 1.16 mmol/l (1.12-1.32); iSTAT Potassium 3.3 mmol/L (3.3-5.0); iSTAT Sodium 139 mmol/L (135-144)
--- NOTE | 2022-12-30 17:49 | Emergency Department Note ---
History of Present Illness General Chief Complaint: Abdominal Pain Stated Complaint: PAIN UPPER R MIDDLE ABDOMINAL,FEVER Time Seen by Provider: 12/30/22 17:05 History of Present Illness Provider Complaint: abdominal pain Onset (ago): 2 day(s) Pain Consistency: constant Location: epigastric Radiation: RUQ Severity: moderate Maximum Pain Intensity: 8 Quality: + stabbing and + sharp Relieved By: + nothing Exacerbated By: + nothing Context: no foreign travel, no possible food poisoning, no sick contacts, no recent antibiotic use, no recent surgery/procedure, no recent injury or no history of similar episodes Associated Symptoms: + nausea and + vomiting; no diarrhea, no fever, no chills, no constipation, no dysuria, no hematemesis, no hematochezia, no melena, no hematuria, no syncope, no back pain and no breathing difficulty Patient states she is a recovering alcoholic he has not had any alcohol since July 2022 Related Data Patient Confirmed : No Home Medications Medication Instructions Recorded Confirmed Type epinephrine 0.3 mg/0.3 mL 0.3 mg IM DIRECTED PRN Allergic 05/13/18 12/30/22 History injection, auto-injector (EpiPen) Reaction hydrochlorothiazide 25 mg tablet 25 mg PO QAM 06/19/22 12/30/22 History lisinopril 10 mg tablet 10 mg PO QAM 06/19/22 12/30/22 History multivitamin with folic acid 400 1 tab PO QAM #30 tabs 09/09/22 12/30/22 Rx mcg tablet (Daily-Rajendra (with folic acid)) Allergies Allergy/AdvReac Type Severity Reaction Status Date / Time nut - unspecified Allergy Severe Anaphylaxis Verified 12/30/22 19:17 Penicillins Allergy Severe Difficulty Verified 12/30/22 19:17 Breathing tree nut Allergy Severe Anaphylaxis Verified 12/30/22 19:17 morphine Allergy Intermediate Hives Verified 12/30/22 19:17 mushroom Allergy Intermediate Hives Verified 12/30/22 19:17 Past Med/Surg History Medical History Abdominal pain Acute hyponatremia Alcohol abuse, unspecified (07/15/12) Anxiety state, unspecified (06/16/11) Bipolar disorder Encounter for pre-operative examination Headache Hypertension (07/15/12) Hypokalemia Hypomagnesemia Overdose of antipsychotic TIA (transient ischemic attack) Surgical History Cholecystostomy care History of appendectomy (12/25/12) History of dental surgery Previous section 2007,2008,2009,2012 Tubal ligation status Family History Father Diabetes Hypertension Other Breast cancer No pertinent family history Social History Smoking Status: Current every day smoker Tobacco Type: Cigarettes Cigarettes Per Day: more than 1/2 a pack daily; Second Hand Exposure: No; Do You Dip or Chew Tobacco: No; Hx Alcohol Use: No Hx Substance Use: No Preferred Language: Turkmen Communication Ability: Effective Construction 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 Required: No Beliefs That Will Affect Care: None marital status: Current Living Situation: Spouse and Family current occupational status: unemployed current occupation: Prior employment at [employer] How many Children do You have: 4 Feels Safe at Home: Yes during the past year weight has: increased > 10 lbs Assistive Devices: None Physical Exam Vital Signs: Vital Signs - 24 hr 12/30/22 17:01 12/30/22 18:47 12/30/22 18:51 Temperature 36.7 C Temperature Source Temporal Artery Sc an Pulse Rate 121 H Pulse Rate [Right Brachial] 99 H Pulse Rhythm [Righ t Brachial] Regular Pulse Strength [Ri ght Brachial] Normal Respiratory Rate 18 19 Respiratory Effort / Characteristics Non-Labored Sponta neous Non-Labored Sponta neous Respiratory Depth Normal Normal Respiratory Patter n Regular Regular Blood Pressure 119/70 Blood Pressure [Ri ght Arm] 107/67 Blood Pressure Maite n 86 Blood Pressure Maite n [Right Arm] 80 Blood Pressure Pos ition Sitting Pulse Oximetry 96 99 92 Oxygen Delivery Me thod Room Air Room Air Room Air Sepsis Recent Feve r Within 48 Hours No Sepsis New/Unexpla ined Change in Men leo Status No Sepsis Action Take n by Nursing No Action Required 12/30/22 19:15 Temperature Temperature Source Pulse Rate 101 H Pulse Rate [Right Brachial] Pulse Rhythm [Righ t Brachial] Pulse Strength [Ri ght Brachial] Respiratory Rate Respiratory Effort / Characteristics Respiratory Depth Respiratory Patter n Blood Pressure Blood Pressure [Ri ght Arm] Blood Pressure Maite n Blood Pressure Maite n [Right Arm] Blood Pressure Pos ition Pulse Oximetry Oxygen Delivery Me thod Sepsis Recent Feve r Within 48 Hours Sepsis New/Unexpla ined Change in Men leo Status Sepsis Action Take n by Nursing Physical Exam: Physical Exam HENT: Exam performed. -Head: Normocephalic and atraumatic. -Right Ear: External ear normal. No mastoid erythema -Left Ear: External ear normal. No mastoid erythema EYES: Conjunctivae and EOM are normal. Right eye exhibits no discharge. Left eye exhibits no discharge. No scleral icterus. NECK: Normal range of motion. Neck supple. No JVD present. No spinous process tenderness present. No tracheal deviation and normal range of motion present. CV: Tachycardic rate, regular rhythm, normal heart sounds and intact distal pulses. There is no peripheral edema. Palpable radial pulses bue. PULM/CHEST: Effort normal and breath sounds normal. No respiratory distress. No stridor. She has no wheezes. She has no rales. ABD: The abdomen is soft. There is tenderness to palpation of the epigastric and right upper quadrant area. Dan sign negative. No fluid wave. MUSC/SKEL: Normal range of motion. There is no peripheral edema, tenderness or deformity. NEURO: She is alert and oriented to person, place, and time. She has normal strength. No cranial nerve deficit or sensory deficit. Coordination and gait normal. GCS eye subscore is 4. GCS verbal subscore is 5. GCS motor subscore is 6. Cerebellar tests wnl. SKIN: Skin is warm and dry. She is not diaphoretic. PSYCH: She has a normal mood and affect. Behavior is normal. Judgment and thought content normal. Course Course 1704: The patient was evaluated in room B11. A complete history and physical exam was performed Cardiac monitoring: An order was placed for continuous cardiac monitoring. The monitor shows a rate of 100 with sinus rhythm interpreted by me 1800: Patient requesting more analgesia prior to CT scan on reassessment patient is in no acute distress on her phone. Analgesia ordered. 1952: Vital signs stable. Labs do show a leukocytosis of 23.3. The patient has chronically elevated white blood cell count going back to August of this year. She also has a chronically elevated platelet count. Patient's alcohol was positive at 137.4. Anion gap elevated at 16. Glucose is 94. Lactic acid 4.1. Patient was given 30 cc/kg bolus. There is no source of any infection however the patient be treated empirically with antibiotics Cipro. CT of the abdomen pelvis negative. [facility] states he will evaluate the patient for admission. Administered Medications Ciprofloxacin (Cipro / D5w) 400 mg in 200 mls @ 200 mls/hr IV NOW STA Stop: 12/30/22 20:29 Last Admin: 12/30/22 19:37 Dose: 200 mls/hr Documented By: MARGUERITE Discontinued Medications Hydromorphone HCl (Hydromorphone Inj 1 Mg/Ml Syringe) 1 mg IV NOW STA Stop: 12/30/22 18:08 Last Admin: 12/30/22 18:19 Dose: 1 mg Documented By: JD Hydromorphone HCl (Hydromorphone Inj 1 Mg/Ml Syringe) 1 mg IV NOW STA Stop: 12/30/22 19:31 Last Admin: 12/30/22 19:38 Dose: 1 mg Documented By: MARGUERITE Sodium Chloride (Nss 1000ml) 1,000 mls @ 999 mls/hr IV .Q1H1M ONE Stop: 12/30/22 18:09 Last Infusion: 12/30/22 18:27 Dose: 0 mls/hr Documented By: Admin: 12/30/22 17:30 Dose: 999 mls/hr Documented By: JD Sodium Chloride (Nss 1000ml) 1,000 mls @ 999 mls/hr IV .Q1H1M ONE Stop: 12/30/22 19:25 Last Admin: 12/30/22 18:40 Dose: 999 mls/hr Documented By: JD Ioversol (Optiray 320 100ml) 89 ml IV ONCE ONE Stop: 12/30/22 18:41 Last Admin: 12/30/22 18:31 Dose: 89 ml Documented By: TOBIAS Ketorolac Tromethamine (Ketorolac Tromethamine 15 Mg/Ml Vial) 15 mg IV NOW STA Stop: 12/30/22 17:10 Last Admin: 12/30/22 17:31 Dose: 15 mg Documented By: JD Ondansetron HCl (Ondansetron Inj 2 Mg/Ml 2 Ml Vial) 4 mg IV NOW STA Stop: 12/30/22 17:10 Last Admin: 12/30/22 17:30 Dose: 4 mg Documented By: JD Medical Decision Making Laboratory Data Attestation: I reviewed the patient's lab results. 12/30/22 17:20 12/30/22 17:20 Lab Results 12/30/22 12/30/22 12/30/22 Range/Units 17:20 17:20 17:20 WBC 23.30 H (4.8-10.8) K/ul RBC 3.12 L (4.20-5.40) M/uL Hgb 10.5 L (12.0-16.0) g/dl POC Hgb (12.0-16.0) g/dl Hct 32.4 L (37.0-47.0) % POC Hct (37-47) % MCV 103.8 H (80.0-100.0) fL MCH 33.7 (25.0-34.0) pg MCHC 32.4 (32.0-36.0) g/dL RDW Std Deviation 53.6 H (36.4-46.3) fL RDW Coeff of Carmen 14.3 (11.5-14.5) % Plt Count 620 H (130-400) K/uL MPV 9.4 (9.4-12.4) fL Immature Gran % (Auto) 2.7 % Neut % (Auto) 65.9 % Lymph % (Auto) 20.7 % Dixon % (Auto) 7.7 % Eos % (Auto) 2.1 % Baso % (Auto) 0.9 % Neut # (Auto) 15.34 H (1.40-6.50) K/uL Lymph # (Auto) 4.83 H (1.2-3.4) K/uL Dixon # (Auto) 1.80 H (0.11-0.59) K/uL Eos # (Auto) 0.50 (0-0.50) K/uL Baso # (Auto) 0.21 H (0-0.2) K/uL Immature Gran # (Auto) 0.62 H (0.01-0.20) K/uL Absolute Nucleated RBC 0.02 (0-0.12) K/uL Nucleated RBC % (auto) 0.1 % Polychromasia 1+ POC Sodium (135-144) mmol/L Sodium 137 (136-145) mmol/L POC Potassium (3.3-5.0) mmol/L Potassium 3.3 L (3.5-5.1) mmol/L POC Chloride (101-112) mmol/L Chloride 107 (98-107) mmol/L Carbon Dioxide 14 L (21-32) mmol/L POC Total CO2 (24-31) mmol/L Anion Gap 16 H (3-11) POC Anion Gap (16-25) mmol/L POC BUN (7-18) mg/dl BUN 5 L (6-23) mg/dl Creatinine 0.65 (0.6-1.2) mg/dl POC Creatinine (0.6-1.3) mg/dl Est Cr Clr Drug Dosing 134.6 ml/min Est GFR ( Amer) 133.3 ml/min Est GFR (Non-Af Amer) 115.0 ml/min BUN/Creatinine Ratio 7.7 L (10-20) Glucose 94 (70-99(Fasting)) mg/dl POC Glucose (other) (70-99) mg/dl Lactate (0.4-2.0) mmol/L Calcium 9.2 (8.6-10.3) mg/dl POC Ioniz Calcium Yany (1.12-1.32) mmol/l Total Bilirubin 1.0 (0.2-1.0) mg/dl Direct Bilirubin 0.4 H (0-0.2) mg/dl AST 59 H (13-39) U/L ALT 19 (7-52) U/L Alkaline Phosphatase 280 H (34-104) U/L Total Protein 7.7 (6.0-8.3) gm/dl Albumin 3.6 (3.4-5.0) gm/dl Lipase 28 (11-82) U/L Urine Color Urine Appearance (Clear) Urine pH (4.5-7.5) Ur Specific [place] (1.000-1.030) Urine Protein (Negative) Urine Glucose (UA) (Negative) Urine Ketones (Negative) Urine Blood (Negative) Urine Nitrite (Negative) Urine Bilirubin (Negative) Urine Urobilinogen (Negative) Ur Leukocyte Esterase (Negative) Urine WBC (Auto) (0-5) /hpf Urine RBC (Auto) (0-4) /hpf U Hyaline Cast (Auto) (0-5) /lpf U Epithel Cells (Auto) (0-5) /lpf Urine Bacteria (Auto) (Negative) Urine Trichomonas (None Prsent) Urine Yeast POC Ur Test (NEG) Ethyl Alcohol mg/dL 137.4 H (<10.0) mg/dl 12/30/22 12/30/22 12/30/22 Range/Units 17:28 18:08 18:46 WBC (4.8-10.8) K/ul RBC (4.20-5.40) M/uL Hgb (12.0-16.0) g/dl POC Hgb 11.6 L (12.0-16.0) g/dl Hct (37.0-47.0) % POC Hct 34 L (37-47) % MCV (80.0-100.0) fL MCH (25.0-34.0) pg MCHC (32.0-36.0) g/dL RDW Std Deviation (36.4-46.3) fL RDW Coeff of Carmen (11.5-14.5) % Plt Count (130-400) K/uL MPV (9.4-12.4) fL Immature Gran % (Auto) % Neut % (Auto) % Lymph % (Auto) % Dixon % (Auto) % Eos % (Auto) % Baso % (Auto) % Neut # (Auto) (1.40-6.50) K/uL Lymph # (Auto) (1.2-3.4) K/uL Dixon # (Auto) (0.11-0.59) K/uL Eos # (Auto) (0-0.50) K/uL Baso # (Auto) (0-0.2) K/uL Immature Gran # (Auto) (0.01-0.20) K/uL Absolute Nucleated RBC (0-0.12) K/uL Nucleated RBC % (auto) % Polychromasia POC Sodium 139 (135-144) mmol/L Sodium (136-145) mmol/L POC Potassium 3.3 (3.3-5.0) mmol/L Potassium (3.5-5.1) mmol/L POC Chloride 108 (101-112) mmol/L Chloride (98-107) mmol/L Carbon Dioxide (21-32) mmol/L POC Total CO2 14 L (24-31) mmol/L Anion Gap (3-11) POC Anion Gap 21.0 (16-25) mmol/L POC BUN < 3 L (7-18) mg/dl BUN (6-23) mg/dl Creatinine (0.6-1.2) mg/dl POC Creatinine 0.8 (0.6-1.3) mg/dl Est Cr Clr Drug Dosing ml/min Est GFR ( Amer) ml/min Est GFR (Non-Af Amer) ml/min BUN/Creatinine Ratio (10-20) Glucose (70-99(Fasting)) mg/dl POC Glucose (other) 97 (70-99) mg/dl Lactate 4.1 H* (0.4-2.0) mmol/L Calcium (8.6-10.3) mg/dl POC Ioniz Calcium Yany 1.16 (1.12-1.32) mmol/l Total Bilirubin (0.2-1.0) mg/dl Direct Bilirubin (0-0.2) mg/dl AST (13-39) U/L ALT (7-52) U/L Alkaline Phosphatase (34-104) U/L Total Protein (6.0-8.3) gm/dl Albumin (3.4-5.0) gm/dl Lipase (11-82) U/L Urine Color Urine Appearance (Clear) Urine pH (4.5-7.5) Ur Specific [place] (1.000-1.030) Urine Protein (Negative) Urine Glucose (UA) (Negative) Urine Ketones (Negative) Urine Blood (Negative) Urine Nitrite (Negative) Urine Bilirubin (Negative) Urine Urobilinogen (Negative) Ur Leukocyte Esterase (Negative) Urine WBC (Auto) (0-5) /hpf Urine RBC (Auto) (0-4) /hpf U Hyaline Cast (Auto) (0-5) /lpf U Epithel Cells (Auto) (0-5) /lpf Urine Bacteria (Auto) (Negative) Urine Trichomonas (None Prsent) Urine Yeast POC Ur Test NEG (NEG) Ethyl Alcohol mg/dL (<10.0) mg/dl 12/30/22 Range/Units Unknown WBC (4.8-10.8) K/ul RBC (4.20-5.40) M/uL Hgb (12.0-16.0) g/dl POC Hgb (12.0-16.0) g/dl Hct (37.0-47.0) % POC Hct (37-47) % MCV (80.0-100.0) fL MCH (25.0-34.0) pg MCHC (32.0-36.0) g/dL RDW Std Deviation (36.4-46.3) fL RDW Coeff of Carmen (11.5-14.5) % Plt Count (130-400) K/uL MPV (9.4-12.4) fL Immature Gran % (Auto) % Neut % (Auto) % Lymph % (Auto) % Dixon % (Auto) % Eos % (Auto) % Baso % (Auto) % Neut # (Auto) (1.40-6.50) K/uL Lymph # (Auto) (1.2-3.4) K/uL Dixon # (Auto) (0.11-0.59) K/uL Eos # (Auto) (0-0.50) K/uL Baso # (Auto) (0-0.2) K/uL Immature Gran # (Auto) (0.01-0.20) K/uL Absolute Nucleated RBC (0-0.12) K/uL Nucleated RBC % (auto) % Polychromasia POC Sodium (135-144) mmol/L Sodium (136-145) mmol/L POC Potassium (3.3-5.0) mmol/L Potassium (3.5-5.1) mmol/L POC Chloride (101-112) mmol/L Chloride (98-107) mmol/L Carbon Dioxide (21-32) mmol/L POC Total CO2 (24-31) mmol/L Anion Gap (3-11) POC Anion Gap (16-25) mmol/L POC BUN (7-18) mg/dl BUN (6-23) mg/dl Creatinine (0.6-1.2) mg/dl POC Creatinine (0.6-1.3) mg/dl Est Cr Clr Drug Dosing ml/min Est GFR ( Amer) ml/min Est GFR (Non-Af Amer) ml/min BUN/Creatinine Ratio (10-20) Glucose (70-99(Fasting)) mg/dl POC Glucose (other) (70-99) mg/dl Lactate (0.4-2.0) mmol/L Calcium (8.6-10.3) mg/dl POC Ioniz Calcium Yany (1.12-1.32) mmol/l Total Bilirubin (0.2-1.0) mg/dl Direct Bilirubin (0-0.2) mg/dl AST (13-39) U/L ALT (7-52) U/L Alkaline Phosphatase (34-104) U/L Total Protein (6.0-8.3) gm/dl Albumin (3.4-5.0) gm/dl Lipase (11-82) U/L Urine Color Yellow Urine Appearance Cloudy A (Clear) Urine pH 6.0 (4.5-7.5) Ur Specific [place] 1.009 (1.000-1.030) Urine Protein Trace H (Negative) Urine Glucose (UA) Negative (Negative) Urine Ketones Negative (Negative) Urine Blood Negative (Negative) Urine Nitrite Negative (Negative) Urine Bilirubin Negative (Negative) Urine Urobilinogen Negative (Negative) Ur Leukocyte Esterase 1+ H (Negative) Urine WBC (Auto) 10-30 H (0-5) /hpf Urine RBC (Auto) 0-4 (0-4) /hpf U Hyaline Cast (Auto) 1-5 (0-5) /lpf U Epithel Cells (Auto) >30 H (0-5) /lpf Urine Bacteria (Auto) Negative (Negative) Urine Trichomonas Present H (None Prsent) Urine Yeast Not Reportable POC Ur Test (NEG) Ethyl Alcohol mg/dL (<10.0) mg/dl Imaging Data Radiologist's Impression: Abdomen/Pelvis CT 12/30/22 17:21 CT SCAN OF THE ABDOMEN AND PELVIS WITH IV CONTRAST CLINICAL HISTORY: Epigastric abdominal pain. COMPARISON STUDY: Abdominal CT dated 09/17/2022. TECHNIQUE: Following the IV administration of 89 cc of Optiray 320, CT scan of the abdomen and pelvis is performed from the lung bases to the proximal femora. Images are reviewed in the axial, sagittal, and coronal planes. IV contrast was administered without complication. A dose lowering technique was utilized adhering to the principles of ALARA. CT DOSE: 1130.11 mGy.cm FINDINGS: Lung bases: The heart is enlarged and without pericardial effusion. The lung bases are clear. There is a small hiatal hernia. Liver: The contrast-enhanced liver is markedly enlarged, measuring 35.2 cm in length. The liver demonstrates diffusely diminished attenuation indicating steatosis.. There is no intrahepatic biliary ductal dilatation. The hepatic veins and portal veins are patent. Gallbladder: Surgically absent noting clips in the gallbladder fossa. Spleen: The spleen is enlarged, measuring 18.1 cm in length. Pancreas: Unremarkable. Adrenal glands: Unremarkable. Kidneys: The contrast enhanced kidneys are normal in size and without hydronephrosis. The kidneys enhance symmetrically. A 1.7 cm complex cystic lesion of the right kidney seen previously is less apparent on today's examination. This is best seen on axial image #51 of 103. Abdominal vasculature: The abdominal aorta is normal in course and caliber. Bowel: There are scattered colonic diverticula without CT evidence of acute diverticulitis. No bowel obstruction is seen. The appendix is not identified and reported surgically absent. Peritoneum: There is no intraperitoneal free air or abdominal ascites. There is a fat-containing umbilical hernia. Lymphadenopathy: None. Pelvic viscera: The bladder, uterus, and adnexa are normal as visualized noting bilateral ovarian follicles. Skeletal structures: No lytic or blastic lesions are seen. IMPRESSION: 1. No acute infectious or inflammatory findings are identified in the abdomen or pelvis. 2. Marked hepatosplenomegaly with evidence of hepatic steatosis. 3. Cardiomegaly. 4. The complex right renal lesion seen previously is much less apparent than on the prior examination. This remains indeterminant. 5. Additional findings as above. ACT 112: Negative or not required by law. Electronically signed by: Rakesh Sarabia M.D. 12/30/2022 6:52 PM [facility] Narrative 1705: The patient was evaluated in room B11. A complete history and physical exa m was performed Cardiac monitoring: An order was placed for continuous cardiac monitoring. The monitor shows a rate of 100 with sinus rhythm interpreted by ia 1800: Patient requesting more analgesia prior to CT scan on reassessment patient is in no acute distress on her phone. Analgesia ordered. 1952: Vital signs stable. Labs do show a leukocytosis of 23.3. The patient has chronically elevated white blood cell count going back to August of this year. She also has a chronically elevated platelet count. Patient's alcohol was positive at 137.4. Anion gap elevated at 16. Glucose is 94. Lactic acid 4.1. Patient was given 30 cc/kg bolus. There is no source of any infection however the patient be treated empirically with antibiotics Cipro. CT of the abdomen pelvis negative. Patient be admitted to the [facility] hospitalist team Dr. Villalobos states he will evaluate the patient for admission. Impression & Plan Abdominal pain, Leukocytosis, Alcohol abuse, Lactic acidemia Discharge Plan Visit Data Chief Complaint: Abdominal Pain Stated Complaint: PAIN UPPER R MIDDLE ABDOMINAL,FEVER ED Provider: Theo Luther Discharge Problem: Abdominal pain, Leukocytosis, Alcohol abuse, Lactic acidemia Patient Disposition: Admitted As Inpatient Forms Stand Alone Forms: [facility] Prescriptions Prescriptions: No Action epinephrine [EpiPen] 0.3 mg/0.3 mL Auto-Injector 0.3 mg IM DIRECTED PRN (Reason: Allergic Reaction) Patient Comments: pt says nothing has changed in a week since shes been here last Rx Instructions: for a severe reaction: Place oragne end against outer thigh,press firmly, hold in place for 10 seconds and go to the emergency room. lisinopril 10 mg tablet 10 mg PO QAM hydrochlorothiazide 25 mg tablet 25 mg PO QAM multivitamin with folic acid [Daily-Rajendra (with folic acid)] 400 mcg Tablet 1 tab PO QAM Qty: 30 0RF Referrals Referrals: Angelic Pereira DO [Primary Care Provider] -
[2022-12-30 17:55] LABS: Hematocrit (blood only) 32.4 % (37.0-47.0); Hemoglobin 10.5 g/dl (12.0-16.0); Mean Corpuscular Hemoglobin 33.7 pg (25.0-34.0); Mean Corpuscular Hgb Conc 32.4 g/dL (32.0-36.0); Mean Corpuscular Volume 103.8 fL (80.0-100.0); Mean Platelet Volume 9.4 fL (9.4-12.4); Nucleated RBC # (auto) 0.02 K/uL (0-0.12); Nucleated RBC % (auto) 0.1 %; Platelet Count 620 K/uL (130-400); RDW Coefficient of Variation 14.3 % (11.5-14.5); RDW Standard Deviation 53.6 fL (36.4-46.3); Red Blood Count 3.12 M/uL (4.20-5.40)
[2022-12-30 18:01] LABS: Albumin Level 3.6 gm/dl (3.4-5.0); Bilirubin Direct 0.4 mg/dl (0-0.2); Calcium 9.2 mg/dl (8.6-10.3); Potassium 3.3 mmol/L (3.5-5.1)
[2022-12-30 18:07] LABS: BUN Creatinine Ratio 7.7 (10-20); Creatinine Clr Calc Pharmacy 134.6 ml/min; Est GFR (African American) 133.3 ml/min; Total Protein 7.7 gm/dl (6.0-8.3)
[2022-12-30] MEDS ORDERED: HYDROmorphone INJ 1 MG/ML SYRINGE IV STA ×2 (18:07→19:30)
[2022-12-30 18:13] LABS: Basophils # (auto) 0.21 K/uL (0-0.2); Basophils % (auto) 0.9 %; Eosinophils % (auto) 2.1 %; Immature Granulocytes # (auto) 0.62 K/uL (0.01-0.20); Immature Granulocytes % (auto) 2.7 %; Lymphocytes # (auto) 4.83 K/uL (1.2-3.4); Lymphocytes % (auto) 20.7 %; Monocytes % (auto) 7.7 %; Neutrophils # (auto) 15.34 K/uL (1.40-6.50); Neutrophils % (auto) 65.9 %; Polychromasia 1+
[2022-12-30] MEDS ORDERED: OPTIRAY 320 100ml IV ONE (18:40)
--- NOTE | 2022-12-30 18:54 | CT Scan Report ---
CT SCAN OF THE ABDOMEN AND PELVIS WITH IV CONTRAST CLINICAL HISTORY: Epigastric abdominal pain. COMPARISON STUDY: Abdominal CT dated 09/17/2022. TECHNIQUE: Following the IV administration of 89 cc of Optiray 320, CT scan of the abdomen and pelvi s is performed from the lung bases to the proximal femora. Images are reviewed in the axial, sagittal , and coronal planes. IV contrast was administered without complication. A dose lowering technique wa s utilized adhering to the principles of ALARA. CT DOSE: 1130.11 mGy.cm FINDINGS: Lung bases: The heart is enlarged and without pericardial effusion. The lung bases are clear. There i s a small hiatal hernia. Liver: The contrast-enhanced liver is markedly enlarged, measuring 35.2 cm in length. The liver demon strates diffusely diminished attenuation indicating steatosis.. There is no intrahepatic biliary duct al dilatation. The hepatic veins and portal veins are patent. Gallbladder: Surgically absent noting clips in the gallbladder fossa. Spleen: The spleen is enlarged, measuring 18.1 cm in length. Pancreas: Unremarkable. Adrenal glands: Unremarkable. Kidneys: The contrast enhanced kidneys are normal in size and without hydronephrosis. The kidneys enh ance symmetrically. A 1.7 cm complex cystic lesion of the right kidney seen previously is less appare nt on today's examination. This is best seen on axial image #51 of 103. Abdominal vasculature: The abdominal aorta is normal in course and caliber. Bowel: There are scattered colonic diverticula without CT evidence of acute diverticulitis. No bowel obstruction is seen. The appendix is not identified and reported surgically absent. Peritoneum: There is no intraperitoneal free air or abdominal ascites. There is a fat-containing umbi lical hernia. Lymphadenopathy: None. Pelvic viscera: The bladder, uterus, and adnexa are normal as visualized noting bilateral ovarian fol licles. Skeletal structures: No lytic or blastic lesions are seen. IMPRESSION: 1. No acute infectious or inflammatory findings are identified in the abdomen or pelvis. 2. Marked hepatosplenomegaly with evidence of hepatic steatosis. 3. Cardiomegaly. 4. The complex right renal lesion seen previously is much less apparent than on the prior examination . This remains indeterminant. 5. Additional findings as above. ACT 112: Negative or not required by law. Electronically signed by: Rakesh Sarabia M.D. 12/30/2022 6:52 PM
[2022-12-30 19:05] LABS: Appearance Urine Cloudy (Clear); Bacteria Urine Automated Negative (Negative); Bilirubin Urine Negative (Negative); Blood Urine Negative (Negative); Color Urine Yellow; Epithelial Cell Urine Auto >30 /lpf (0-5); Glucose Urine UA Negative (Negative); Ketones Urine Negative (Negative); Leukocyte Esterase Urine 1+ (Negative); Nitrite Urine Negative (Negative); Protein Urine Trace (Negative); RBC Urine Automated 0-4 /hpf (0-4); Specific Gravity Urine 1.009 (1.000-1.030); Urobilinogen Urine Negative (Negative)
[2022-12-30 19:23] LABS: Trichomonas Urine Present (None Prsent)
[2022-12-30] MEDS ORDERED: CIPROFLOXACIN / D5W 400 MG/200 ML BAG IV STA (19:30)
[2022-12-30] MEDS ORDERED: HYDROmorphone INJ 0.5 MG/0.5 ML SYR IV STA (22:18)
[2022-12-31] MEDS ORDERED: LORazepam 2 MG/1 ML VIAL IV PRN ×2 (00:34)
[2022-12-31] MEDS ORDERED: GABAPENTIN 1200MG ALCOHOL WITHDRAWAL LOAD PO STA (00:34)
[2022-12-31] MEDS ORDERED: ACETAMINOPHEN 325 MG TAB PO PRN (00:34)
[2022-12-31] MEDS ORDERED: Ativan IV Alcohol Withdrawal--Active Protocol IV PRN (00:34)
[2022-12-31] MEDS ORDERED: THIAMINE HCL 100 MG in SYRINGE 9 ML IV ONE (00:45)
[2022-12-31] MEDS ORDERED: GABAPENTIN 600 MG TAB PO ONE (00:45)
[2022-12-31] MEDS: HYDROmorphone INJ 0.5 MG/0.5 ML SYR IV PRN ×5 (00:55→19:56)
[2022-12-31] MEDS: ONDANSETRON INJ 2 MG/ML 2 ML VIAL IV PRN ×3 (00:55→19:56)
[2022-12-31] MEDS ORDERED: NICOTINE 21 MG/24 HR TDSY TD ONE (01:42)
[2022-12-31] MEDS ORDERED: NICOTINE 21 MG/24 HR TDSY TD STA (01:45)
[2022-12-31] MEDS: LORazepam 2 MG/1 ML VIAL IV PRN ×2 (01:45→13:16)
[2022-12-31] MEDS: metroNIDAZOLE 500 MG/100 ML BAG IV SCH ×2 (01:45→10:20)
--- NOTE | 2022-12-31 02:08 | History and Physical Report ---
DATE OF ADMISSION: 12/30/2022. CHIEF COMPLAINT: Abdominal pain. HISTORY OF PRESENT ILLNESS: A 37-year-old female with past medical history significant for history of chronic hypokalemia; history of hypertension; history of hypertensive urgency; history of morbid obesity; opioid dependence, in remission; history of seizure-like activity; history of bipolar disorder; tobacco abuse; generalized anxiety disorder; history of posttraumatic stress disorder; history of alcoholism. She says she has not drank alcohol since July 2022, but she drank 4 shots of alcohol today and alcohol level is 137 today. She has history of chronic diarrhea for the last several months. She says she has had multiple studies for diarrhea and were unremarkable. Says she had 1 episode of blood in the stools yesterday. The patient was hospitalized in the recent past for this right upper quadrant abdominal pain and worked up at that time, was seen by GI, status post EGD and colonoscopy, which showed esophagitis, possible portal hypertensive gastropathy. Colonoscopy showed 4 mm polyp in the cecum and 2 mm polyp in the transverse colon, which was also removed. At that time, biopsy showed microscopic colitis and she was also admitted in the hospital again in September with the same right quadrant abdominal pain and elevated LFTs. GI recommended MRCP to rule out microlithiasis and it was done, which showed no choledocholithiasis identified. Seemed to be the patient was started on colestipol and dicyclomine by GI. She was also having leukocytosis and thrombocytosis and she was seen by hematology/oncology since leukocytosis has been persistent since March. Workup for myeloproliferative disorders was done. She is supposed to follow with heme/onco but she did not follow up, but says she got a letter saying the labs were okay. The patient today comes in because the abdominal pain started again since last night, severe from the epigastric to the right upper quadrant region. Also has a lot of nausea and dry heaving and she has chronic diarrhea. She has poor appetite. No difficulty swallowing. Denies any chest pain. No shortness of breath, no cough, no fevers. Normal bladder movements. Has some chronic headache, no blurred visions. Has some mild dizziness. No runny nose, no sore throat. Currently, hemodynamically stable .Asking for pain medications. ALLERGIES: NUT, PENICILLINS, TREE NUT, MORPHINE, MUSHROOM. PAST MEDICAL HISTORY: As mentioned above. PAST SURGICAL HISTORY: Cholecystectomy, colonoscopy, EGD, hysteroscopy, ligation of oviducts, appendectomy, surgical removal of teeth. MEDICATIONS: The patient is on epinephrine p.r.n., hydrochlorothiazide 25 mg p.o. daily, lisinopril 10 mg p.o. daily, multivitamins with folic acid 1 tablet daily. FAMILY HISTORY: Significant for father has alcoholism; mother has bipolar disorder, heart attack, stroke; sister has kidney stones. SOCIAL HISTORY: . Smoked three-fourths pack a day for the last 19 years. She has been sober since last July 2022, but says she drank four shots today. Says that she uses cannabis gummies. REVIEW OF SYSTEMS: As per HPI. Rest of review of systems is negative. PHYSICAL EXAMINATION: GENERAL: The patient is of moderate build, not in acute distress. VITAL SIGNS: Temperature 36.7, pulse 97, respiratory rate 24, blood pressure 102/67, oxygen 94% on room air. HEENT: Pupils equal, round and reactive to light. Oral mucosa moist. NECK: No JVD, no neck masses. CARDIOVASCULAR: S1 and S2 heard. Regular rate and rhythm. No murmur, no gallop. RESPIRATORY SYSTEM: Normal AP diameter. No accessory muscle use. No wheezing or crackles. ABDOMEN: Soft, bowel sounds present. Tenderness in the epigastrium and right upper quadrant region. Mild guarding, no rigidity, no distention. CENTRAL NERVOUS SYSTEM: Cranial nerves II-XII grossly intact, nonfocal. EXTREMITIES: No edema, no erythema. LABORATORY DATA: WBC 23, hemoglobin 10.5, hematocrit 32.4, platelets 620. Sodium 137, potassium 3.3, chloride 107, CO2 of 14, BUN 5, creatinine 0.6, serum glucose 94, lactate initially was 4.1, repeat is 2.8, total bilirubin 1, direct bilirubin 0.4, AST 55 ALT 19, alkaline phosphatase 280. Urinalysis positive for leukocyte esterase, bacteria negative. Urine leukoesterase present. Ethyl alcohol 137. SARS-CoV-2 rapid test negative. IMAGING DATA: CT of the abdomen and pelvis with IV contrast shows no acute findings. Marked hepatosplenomegaly with evidence of hepatic steatosis, cardiomegaly. The complex right renal lesion was seen previously and is much less apparent than on the prior examination. This remains indeterminate. ASSESSMENT AND PLAN: A 37-year-old female who presents with again abdominal pain. 1. Right upper quadrant pain: Was admitted in the past and workup was unremarkable in the past. Today, CT scan was mostly unremarkable. The patient is also having chronic diarrhea. The patient has chronic leukocytosis. Will check stool for C. diff. Pain control. Will keep her n.p.o., IV fluids, and consult GI in the a.m. for further recommendations. 2. Metabolic acidosis and also elevated lactic acid. Lactic acid was 4.1, has come down to 2.8. Will follow the repeat lactic acid. Will keep on the fluids. Follow the repeat BMP if persistent acidosis, will consult nephro. Empirically starting on Cipro and Flagyl for now. Has elevated lactic acid and will follow the cultures.Hx of lactic acidosis in the past.Etiology unclear currently. No ketones in urine. 3. Hypertension: Continue her lisinopril and hydrochlorothiazide. Will monitor the labs. 4. Alcoholism: The patient says she is sober since July, but had four shots of alcohol today. Ethyl alcohol is 137. Will empirically [address] on gabapentin alcohol protocol with IV Ativan p.r.n., thiamine, folic acid, multivitamin.Follow lfts. 5. Deep venous thrombosis prophylaxis: Sequential compression devices for now. 6. Anemia: Hemoglobin of 10.5. Her hemoglobin was 11.9 on last admission. Will follow the stool for Hemoccult, and iron studies. Recheck B12 and folate levels. . Monitor the labs. Job ID: [id number] [facility]
[2022-12-31] MEDS: D5W AND NSS 1,000 ML IV SCH ×3 (02:20→18:32)
[2022-12-31] MEDS: GABAPENTIN 600 MG TAB PO SCH ×3 (06:20→21:28)
[2022-12-31 06:29] LABS: Basophils # (auto) 0.18 K/uL (0-0.2); Basophils % (auto) 0.9 %; Eosinophils # (auto) 0.36 K/uL (0-0.50); Eosinophils % (auto) 1.7 %; Hematocrit (blood only) 27.7 % (37.0-47.0); Hemoglobin 9.1 g/dl (12.0-16.0); Immature Granulocytes # (auto) 0.36 K/uL (0.01-0.20); Immature Granulocytes % (auto) 1.7 %; Lymphocytes # (auto) 3.58 K/uL (1.2-3.4); Lymphocytes % (auto) 17.2 %; Mean Corpuscular Hemoglobin 33.5 pg (25.0-34.0); Mean Corpuscular Hgb Conc 32.9 g/dL (32.0-36.0); Mean Corpuscular Volume 101.8 fL (80.0-100.0); Mean Platelet Volume 9.1 fL (9.4-12.4); Monocytes # (auto) 2.12 K/uL (0.11-0.59); Monocytes % (auto) 10.2 %; Neutrophils # (auto) 14.21 K/uL (1.40-6.50); Neutrophils % (auto) 68.3 %; Platelet Count 515 K/uL (130-400); RDW Coefficient of Variation 14.2 % (11.5-14.5); RDW Standard Deviation 52.6 fL (36.4-46.3); Red Blood Count 2.72 M/uL (4.20-5.40); White Blood Count 20.81 K/ul (4.8-10.8)
[2022-12-31 06:45] LABS: BUN Creatinine Ratio 4.8 (10-20); Bilirubin Direct 0.4 mg/dl (0-0.2); Bilirubin,Total 0.9 mg/dl (0.2-1.0); Calcium 8.2 mg/dl (8.6-10.3); Creatinine Clr Calc Pharmacy 141.1 ml/min; Est GFR (African American) 135.4 ml/min; Est GFR (Non-African American) 116.8 ml/min; Magnesium 1.7 mg/dl (1.7-2.4); Potassium 3.2 mmol/L (3.5-5.1); Total Protein 6.4 gm/dl (6.0-8.3)
[2022-12-31] MEDS ORDERED: POTASSIUM CHLORIDE CRTAB 20 MEQ TABCR PO STA (06:58)
[2022-12-31 07:04] LABS: Ferritin 244.3 ng/ml (8-388)
[2022-12-31] MEDS ORDERED: CIPROFLOXACIN / D5W 400 MG/200 ML BAG IV SCH (08:00)
--- NOTE | 2022-12-31 08:32 | Hospitalist Progress Note ---
Date of Service December 31, 2022 Assessment & Plan (1) Abdominal pain: Plan: uncertain cause but patient has multipple chronic medical problems including HTN, obesity, bipolar disorder, alcoholism, h/o migraines, anxiety and PTSD. She uses CBD gummies and smokes. She has chronic diarrhea. This pain appears similar in quality to her RUQ pain from her recent hospital admission. CT scan a/p reviewed with patient and reveals fatty liver and patent portal veins, alc ohol level was 137 on arrival so alcohol use may be contributing to ongoing pain, noted EGD and CSP a couple of months ago and she follows with GI who saw her today. The patient was previously sent home with Bentyl and said this was somewhat helpful but she stopped it because of no refills and a spontaneous resolution of her pain. Will restart this now. Questran for ongoing diarrhea. (2) Lactic acidemia: Plan: Cont IVF and trend lactate. Regular diet ordered. (3) Alcohol abuse: Plan: Presented intoxicated. Monitor for withdrawal. Patient reports wanting to quit, and has been to rehab in the past. Cont gabapentin taper, folate and thiamine daily. (4) Chronic diarrhea: Plan: Questran as above. Cont outpatient GI workup. (5) Hypertension: Plan: chronic, at goal. Cont lisinopril and HCTZ per home regimen. (6) Anemia: Plan: chronic, but progressively worse. Likely multifactorial given intermittent blood per rectum from hemorrhoids, multiple chronic medical problems. Recent EGD/CSP, monitor for overt bleeding and trend CBC. Lovenox Full Dipso-to home when abdominal pain is improved. Tabitha Abraham DO [facility] Hospitalist Admission and Anticipated Discharge Date Admission Date: December 30, 2022 Subjective 37 yo F with h/o alcoholism presents with RUQ pain that is sharp intermittent reports 12-13 BMs of loose stools daily reports EGD/CSP in Sep started drinking yesterday because of the pain and states the pain came on prior to her starting to drink Tylenol and Ibuprofen and CBD gummies were not successful in controlling the pain. Smokes Interested in getting sober from alcohol again. Reports some bright red blood in her stool yesterday drinks alot of protein shakes Review of Systems Review of Systems: All systems were reviewed and negative except as indicated on HPI above. Physical Exam Physical Exam: CONSTITUTIONAL: obese, vitals as above, generally well-appearing, NAD EYES: normal conjunctivae, no scleral icterus ENT: external ear and nose normal, MMM NECK: trachea midline RESPIRATORY: clear to auscultation bilaterally, no crackles, rales or wheezes, normal respiratory effort CARDIOVASCULAR: regular rate and rhythm, S1 and 2 heard without murmurs, gallops or rubs, no JVD, no peripheral edema CHEST: inspection of chest was normal GASTROINTESTINAL: soft, TTP in RUQ, there is a fullness in her RUQ and LUQ consistent with HSM, no guarding MUSCULOSKELETAL: strength 5/5 throughout, head is normocephalic and atraumatic, neck supple, normal palpation of chest wall without tenderness SKIN: warm and dry NEUROLOGIC: CN 2-12 grossly intact, no sensory deficit, normal cognition, normal speech, no tremor PSYCHIATRIC: alert cooperative and oriented to person, place and time. Results & Data Results & Data Vital Signs (Past 12 Hours) Vital Signs Temp Pulse Pulse Resp BP BP Pulse Ox 12/31/22 08:00 36.8 C 102 H 18 109/68 95 12/31/22 06:36 107 H 30 H 12/31/22 06:00 98 H 23 12/31/22 03:30 101 H 19 123/84 95 12/31/22 02:00 101 H 24 95 12/31/22 01:00 100 H 18 142/54 H 12/31/22 02:22 104 H 22 112/70 95 12/31/22 01:03 36.7 C 101 H 20 142/54 H 96 12/31/22 00:00 97 H 21 12/30/22 23:06 91 H 12/30/22 22:00 97 H 24 12/30/22 21:00 97 H 21 102/67 O2 Del Method 12/31/22 08:00 Room Air 12/31/22 06:36 12/31/22 06:00 12/31/22 03:30 Room Air 12/31/22 02:00 Room Air 12/31/22 01:00 12/31/22 02:22 Room Air 12/31/22 01:03 Room Air 12/31/22 00:00 12/30/22 23:06 12/30/22 22:00 12/30/22 21:00 Laboratory Results Short CBC 12/30/22 12/31/22 Range/Units 17:20 06:16 WBC 23.30 H 20.81 H (4.8-10.8) K/ul Hgb 10.5 L 9.1 L (12.0-16.0) g/dl Hct 32.4 L 27.7 L (37.0-47.0) % Plt Count 620 H 515 H (130-400) K/uL BMP 12/30/22 12/31/22 17:20 06:16 Sodium 137 139 Potassium 3.3 L 3.2 L Chloride 107 111 H Carbon Dioxide 14 L 16 L BUN 5 L 3 L Creatinine 0.65 0.62 Glucose 94 78 Calcium 9.2 8.2 L Liver Function 12/30/22 12/31/22 Range/Units 17:20 06:16 Total Bilirubin 1.0 0.9 (0.2-1.0) mg/dl Direct Bilirubin 0.4 H 0.4 H (0-0.2) mg/dl AST 59 H 55 H (13-39) U/L ALT 19 17 (7-52) U/L Alkaline Phosphatase 280 H 241 H (34-104) U/L Albumin 3.6 3.0 L (3.4-5.0) gm/dl Urine 12/30/22 Range/Units Unknown Urine Color Yellow Urine Appearance Cloudy A (Clear) Urine pH 6.0 (4.5-7.5) Ur Specific [place] 1.009 (1.000-1.030) Urine Protein Trace H (Negative) Urine Glucose (UA) Negative (Negative) Medications Administered Current Inpatient Medications Acetaminophen (Acetaminophen 325 Mg Tab) 650 mg PO Q4H PRN PRN Reason: pain/fever Stop: 01/30/23 00:33 Gabapentin (Gabapentin 600 Mg Tab) 600 mg PO Q24H [facility] Stop: 01/03/23 14:01 Gabapentin (Gabapentin 600 Mg Tab) 600 mg PO Q12H [facility] Stop: 01/02/23 14:01 Gabapentin (Gabapentin 600 Mg Tab) 600 mg PO Q8H [facility] Stop: 01/01/23 14:01 Gabapentin (Gabapentin 600 Mg Tab) 600 mg PO Q6H [facility] Stop: 12/31/22 13:01 Last Admin: 12/31/22 06:20 Dose: 600 mg Hydrochlorothiazide (Hydrochlorothiazide 25 Mg Tab) 25 mg PO QAM [facility] Stop: 01/30/23 08:59 Hydromorphone HCl (Hydromorphone Inj 0.5 Mg/0.5 Ml Syr) 0.5 mg IV Q4H PRN PRN Reason: Pain Stop: 01/14/23 00:33 Last Admin: 12/31/22 06:21 Dose: 0.5 mg Dextrose/Sodium Chloride (D5w And Nss) 1,000 mls @ 125 mls/hr IV .Q8H [facility] Stop: 01/30/23 00:44 Last Admin: 12/31/22 02:20 Dose: 125 mls/hr Thiamine HCl 100 mg/ Syringe 10 mls @ 2 mls/min IV [facility] Stop: 01/30/23 08:59 Folic Acid 1 mg/ Syringe 10 mls @ 5 mls/min IV [facility] Stop: 01/30/23 08:59 Metronidazole (Flagyl) 500 mg in 100 mls @ 100 mls/hr IV Q8H [facility] Stop: 01/10/23 00:59 Last Infusion: 12/31/22 02:53 Dose: Infused Ciprofloxacin (Cipro / D5w) 400 mg in 200 mls @ 100 mls/hr IV Q12H [facility]; Protocol Stop: 01/10/23 07:59 Last Admin: 12/31/22 08:02 Dose: 100 mls/hr Lisinopril (Lisinopril 10 Mg Tab) 10 mg PO [facility] Stop: 01/30/23 08:59 Lorazepam (Lorazepam 2 Mg/1 Ml Vial) 3 mg IV ONCE PRN; Protocol PRN Reason: EtOH Withdrawal AWSS Score 10+ Lorazepam (Lorazepam 2 Mg/1 Ml Vial) 2 mg IV UD PRN; Protocol PRN Reason: EtOH Withdrawal AWSS Score 8,9 Stop: 01/30/23 00:33 Lorazepam (Lorazepam 2 Mg/1 Ml Vial) 1 mg IV UD PRN; Protocol PRN Reason: EtOH Withdrawal AWSS Score 6,7 Stop: 01/30/23 00:33 Last Admin: 12/31/22 01:45 Dose: 1 mg Miscellaneous (Remove Nicoderm Patch) 1 each N/A DAILY@0859 [facility] Stop: 01/30/23 08:58 Multivitamins (Multivitamin Tab) 1 tab PO [facility] Stop: 01/30/23 08:59 Nicotine (Nicotine 21 Mg/24 Hr Tdsy) 21 mg TD DAILY [facility] Stop: 01/30/23 08:59 Ondansetron HCl (Ondansetron Inj 2 Mg/Ml 2 Ml Vial) 4 mg IV Q6H PRN PRN Reason: Nausea Stop: 01/30/23 00:33 Last Admin: 12/31/22 06:39 Dose: 4 mg (1) Abdominal pain Abdominal location: unspecified location Qualified Code(s): R10.9 - Unspecified abdominal pain (5) Hypertension Hypertension type: unspecified Qualified Code(s): I10 - Essential (primary) hypertension
[2022-12-31] MEDS: hydroCHLOROthiazide 25 MG TAB PO SCH (08:57)
[2022-12-31] MEDS: MULTIVITAMIN TAB PO SCH (08:57)
[2022-12-31] MEDS: lisinopril 10 MG TAB PO SCH (08:57)
[2022-12-31] MEDS ORDERED: THIAMINE HCL 100 MG in SYRINGE 9 ML IV SCH (09:00)
[2022-12-31] MEDS ORDERED: FOLIC ACID 1 MG in SYRINGE 9.8 ML IV SCH (09:00)
--- NOTE | 2022-12-31 09:25 | Gastrointestinal Consultation ---
Date of Consultation December 31, 2022 Assessment & Plan (1) Abdominal pain: 37 year old female with history of migraines, anxiety, PTSD, bipolar, HTN, obesity, increased alcohol intake last use 4 mixed drinks on 12/30/22, daily CBD/THC gummy last use 2 gummies 12/29/22 who was admitted through the ED w/ abd pain, nausea/vomiting no acute findings on labs/imaging Please check urine toxicology screen ETOH cessation discussed THC/CBD gummy cessation discussed Chest stool studies Can arrange gastric emptying scan Trial of liquids this AM Scheduled Questran once daily Scheduled Bentyl 10 mg three times daily No current plan for repeat endoscopic evaluation unless significant clinical changes I was unable to login to [facility] to check for outside imaging/labs/procedures Thank you for allowing us to participate in the care of this patient. Please call with any acute changes, questions or concerns. Please see addendum below with additional recommendation from my supervising physician. Supervising Physician Co-Signing Physician Notes I personally saw and evaluated the patient on 12/31/2022 with AMEE Kulkarni and agree with her findings and plan of care. patient asleep at bedside after receiving ativan. abdomen soft. Spoke with at bedside as well. Patient has continued to drink alcohol since last admission. She needs to stop all alcohol and consider alcohol rehab. EGD and colonoscopy completed in September without any findings to explain her abdominal pain and imaging has been unrevealing. Consider outpatient pain management referral for chronic abdominal wall pain. GI will sign off but please call back with questions. Sanjuana Mandujano DO Gastroenterology and Hepatology History of Present Illness Reason for Consultation: abd pain, nausea/vomiting, diarrhea Requesting Physician: Jarad Attending Physician: Tabitha Abraham DO History of Present Illness 37 year old female with history of migraines, anxiety, PTSD, bipolar, HTN, obesity, increased alcohol intake last use 4 mixed drinks on 12/30/22, daily CBD/THC gummy last use 2 gummies 12/29/22 who was admitted through the ED w/ abd pain, nausea/vomiting. GI asked to evaluate. Notes her symptoms started about 2/3 days ago. Severe upper abd pain. Radiates to her RUQ. Associated with nausea/vomiting and dry heaving. Notes warm bathing and showers help discomfort. Sometimes heating pads help, otherwise no other relief. Denies any black or bloody emesis. Suggests loose stools. Intermittent BRBPR related to hemorrhoids. No black stools. + THC/CBD gummies daily + ETOH misuse, last use 4 mixed drinks prior to arrival Denies other supplements Denies other drug use ETOH level + 137 HGB stable over night BUN nonelevated Tbili 0.9 AST 55 (baseline for her) ALT 17 ALKP 241 (baseline for her) lactic acid 3.7 CTAP 2022: No acute infectious or inflammatory findings are identified in the abdomen or pelvis. Marked hepatosplenomegaly with evidence of hepatic steatosis. Cardiomegaly.. The complex right renal lesion seen previously is much less apparent than on the prior examination. This remains indeterminant.. Additional findings as above. MRCP 2022: Cholecystectomy with likely postsurgical biliary ductal dilation. No choledocholithiasis identified. Hepatomegaly with hepatic steatosis. EGD 2022: - Z-line regular, 36 cm from the incisors. - LA Grade A esophagitis with no bleeding. - Concern for portal hypertensive gastropathy on exam. - Normal duodenal bulb and second portion of the duodenum. Biopsied. - Biopsies were taken with a cold forceps for Helicobacter pylori testing. Colonoscopy 2022: - Preparation of the colon was fair. - Hemorrhoids found on perianal exam. - Diverticulosis in the entire examined colon. - One 4 mm polyp in the cecum, removed with a cold snare. Resected and retrieved. - One 2 mm polyp in the ascending colon, removed with a cold biopsy forceps. Resected and retrieved. - Biopsies obtained for microscopic colitis Allergies Allergy/AdvReac Type Severity Reaction Status Date / Time nut - unspecified Allergy Severe Anaphylaxis Verified 12/30/22 19:17 Penicillins Allergy Severe Difficulty Verified 12/30/22 19:17 Breathing tree nut Allergy Severe Anaphylaxis Verified 12/30/22 19:17 morphine Allergy Intermediate Hives Verified 12/30/22 19:17 mushroom Allergy Intermediate Hives Verified 12/30/22 19:17 Home Medications Medication Instructions Recorded Confirmed Type epinephrine 0.3 mg/0.3 mL 0.3 mg IM DIRECTED PRN Allergic 05/13/18 12/30/22 History injection, auto-injector (EpiPen) Reaction hydrochlorothiazide 25 mg tablet 25 mg PO QAM 11/03/22 05/16/23 History lisinopril 10 mg tablet 10 mg PO QAM 06/19/22 12/30/22 History multivitamin with folic acid 400 1 tab PO QAM #30 tabs 09/09/22 12/30/22 Rx mcg tablet (Daily-Rajendra (with folic acid)) Patient History Medical History Abdominal pain Acute hyponatremia Alcohol abuse, unspecified (07/15/12) Anxiety state, unspecified (06/16/11) Bipolar disorder Encounter for pre-operative examination Headache Hypertension (07/15/12) Hypokalemia Hypomagnesemia Overdose of antipsychotic TIA (transient ischemic attack) Surgical History Cholecystostomy care History of appendectomy (12/25/12) History of dental surgery Previous section 2007,2008,2009,2012 Tubal ligation status Family History Father Diabetes Hypertension Other Breast cancer No pertinent family history Social History Smoking Status: Current every day smoker Tobacco Type: Cigarettes Cigarettes Per Day: more than 1/2 a pack daily; Second Hand Exposure: No; Do You Dip or Chew Tobacco: No; Tobacco Cessation Education Requested by Patient: No Hx Alcohol Use: Yes Alcohol type: hard liquor Hx Substance Use: No Preferred Language: Bhutanese Communication Ability: Effective 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 Beliefs That Will Affect Care: None marital status: Current Living Situation: Spouse current occupational status: unemployed current occupation: Prior employment at [employer] How many Children do You have: 4 Other Information That Helps Us Care for You: No Feels Safe at Home: Yes Safety Concerns: Feels Safe At This Time during the past year weight has: increased > 10 lbs Assistive Devices: None Review of Systems Review of Systems: All systems reviewed & are unremarkable except as noted in HPI & below Physical Exam Constitutional: WD/WN, vitals as above Respiratory: normal respiratory effort, lungs clear to auscultation Cardiovascular: Rate/Rhythm: regular rate and regular rhythm Gastrointestinal (Abdomen): Inspection/Auscultation: abdomen normal to inspection and normal bowel sounds Percussion/Palpation: + abdomen tender and abdomen soft; no guarding and abdomen not rigid Skin: no rashes, warm and dry Results & Data Vital Signs (Past 12 Hours) Vital Signs Temp Pulse Pulse Resp BP BP Pulse Ox 12/31/22 08:00 36.8 C 102 H 18 109/68 95 12/31/22 06:36 107 H 30 H 12/31/22 06:00 98 H 23 12/31/22 03:30 101 H 19 123/84 95 12/31/22 02:00 101 H 24 95 12/31/22 01:00 100 H 18 142/54 H 12/31/22 02:22 104 H 22 112/70 95 12/31/22 01:03 36.7 C 101 H 20 142/54 H 96 12/31/22 00:00 97 H 21 12/30/22 23:06 91 H 12/30/22 22:00 97 H 24 O2 Del Method 12/31/22 08:00 Room Air 12/31/22 06:36 12/31/22 06:00 12/31/22 03:30 Room Air 12/31/22 02:00 Room Air 12/31/22 01:00 12/31/22 02:22 Room Air 12/31/22 01:03 Room Air 12/31/22 00:00 12/30/22 23:06 12/30/22 22:00 Laboratory Results 12/31/22 12/31/22 12/31/22 Range/Units 06:16 06:16 06:16 WBC 20.81 H (4.8-10.8) K/ul RBC 2.72 L (4.20-5.40) M/uL Hgb 9.1 L (12.0-16.0) g/dl POC Hgb (12.0-16.0) g/dl Hct 27.7 L (37.0-47.0) % POC Hct (37-47) % MCV 101.8 H (80.0-100.0) fL MCH 33.5 (25.0-34.0) pg MCHC 32.9 (32.0-36.0) g/dL RDW Std Deviation 52.6 H (36.4-46.3) fL RDW Coeff of Carmen 14.2 (11.5-14.5) % Plt Count 515 H (130-400) K/uL MPV 9.1 L (9.4-12.4) fL Immature Gran % (Auto) 1.7 % Neut % (Auto) 68.3 % Lymph % (Auto) 17.2 % [place] % (Auto) 10.2 % Eos % (Auto) 1.7 % Baso % (Auto) 0.9 % Neut # (Auto) 14.21 H (1.40-6.50) K/uL Lymph # (Auto) 3.58 H (1.2-3.4) K/uL [place] # (Auto) 2.12 H (0.11-0.59) K/uL Eos # (Auto) 0.36 (0-0.50) K/uL Baso # (Auto) 0.18 (0-0.2) K/uL Immature Gran # (Auto) 0.36 H (0.01-0.20) K/uL Absolute Nucleated RBC (0-0.12) K/uL Nucleated RBC % (auto) % Polychromasia POC Sodium (135-144) mmol/L Sodium (136-145) mmol/L POC Potassium (3.3-5.0) mmol/L Potassium (3.5-5.1) mmol/L POC Chloride (101-112) mmol/L Chloride (98-107) mmol/L Carbon Dioxide (21-32) mmol/L POC Total CO2 (24-31) mmol/L Anion Gap (3-11) POC Anion Gap (16-25) mmol/L POC BUN (7-18) mg/dl BUN (6-23) mg/dl Creatinine (0.6-1.2) mg/dl POC Creatinine (0.6-1.3) mg/dl Est Cr Clr Drug Dosing ml/min Est GFR ( Amer) ml/min Est GFR (Non-Af Amer) ml/min BUN/Creatinine Ratio (10-20) Glucose (70-99(Fasting)) mg/dl POC Glucose (other) (70-99) mg/dl Lactate 3.7 H* (0.4-2.0) mmol/L Calcium (8.6-10.3) mg/dl POC Ioniz Calcium Yany (1.12-1.32) mmol/l Magnesium (1.7-2.4) mg/dl Iron (35-150) mcg/dl TIBC (250-450) mcg/dl Unsaturated IBC (155-355) mcg/dl Transferrin % Sat (15-50) % Ferritin (8-388) ng/ml Total Bilirubin (0.2-1.0) mg/dl Direct Bilirubin (0-0.2) mg/dl AST (13-39) U/L ALT (7-52) U/L Alkaline Phosphatase (34-104) U/L Total Protein (6.0-8.3) gm/dl Albumin (3.4-5.0) gm/dl Lipase (11-82) U/L Vitamin B12 262 (180-914) pg/ml Folate 9.27 (>5.38) ng/ml Urine Color Urine Appearance (Clear) Urine pH (4.5-7.5) Ur Specific [place] (1.000-1.030) Urine Protein (Negative) Urine Glucose (UA) (Negative) Urine Ketones (Negative) Urine Blood (Negative) Urine Nitrite (Negative) Urine Bilirubin (Negative) Urine Urobilinogen (Negative) Ur Leukocyte Esterase (Negative) Urine WBC (Auto) (0-5) /hpf Urine RBC (Auto) (0-4) /hpf U Hyaline Cast (Auto) (0-5) /lpf U Epithel Cells (Auto) (0-5) /lpf Urine Bacteria (Auto) (Negative) Urine Trichomonas (None Prsent) Urine Yeast POC Ur Test (NEG) Ethyl Alcohol mg/dL (<10.0) mg/dl SARS-CoV-2, RNA, NAAT (NEGATIVE) 12/31/22 12/30/22 12/30/22 Range/Units 06:16 Unknown 19:52 WBC (4.8-10.8) K/ul RBC (4.20-5.40) M/uL Hgb (12.0-16.0) g/dl POC Hgb (12.0-16.0) g/dl Hct (37.0-47.0) % POC Hct (37-47) % MCV (80.0-100.0) fL MCH (25.0-34.0) pg MCHC (32.0-36.0) g/dL RDW Std Deviation (36.4-46.3) fL RDW Coeff of Carmen (11.5-14.5) % Plt Count (130-400) K/uL MPV (9.4-12.4) fL Immature Gran % (Auto) % Neut % (Auto) % Lymph % (Auto) % [place] % (Auto) % Eos % (Auto) % Baso % (Auto) % Neut # (Auto) (1.40-6.50) K/uL Lymph # (Auto) (1.2-3.4) K/uL [place] # (Auto) (0.11-0.59) K/uL Eos # (Auto) (0-0.50) K/uL Baso # (Auto) (0-0.2) K/uL Immature Gran # (Auto) (0.01-0.20) K/uL Absolute Nucleated RBC (0-0.12) K/uL Nucleated RBC % (auto) % Polychromasia POC Sodium (135-144) mmol/L Sodium 139 (136-145) mmol/L POC Potassium (3.3-5.0) mmol/L Potassium 3.2 L (3.5-5.1) mmol/L POC Chloride (101-112) mmol/L Chloride 111 H (98-107) mmol/L Carbon Dioxide 16 L (21-32) mmol/L POC Total CO2 (24-31) mmol/L Anion Gap 12 H (3-11) POC Anion Gap (16-25) mmol/L POC BUN (7-18) mg/dl BUN 3 L (6-23) mg/dl Creatinine 0.62 (0.6-1.2) mg/dl POC Creatinine (0.6-1.3) mg/dl Est Cr Clr Drug Dosing 141.1 ml/min Est GFR ( Amer) 135.4 ml/min Est GFR (Non-Af Amer) 116.8 ml/min BUN/Creatinine Ratio 4.8 L (10-20) Glucose 78 (70-99(Fasting)) mg/dl POC Glucose (other) (70-99) mg/dl Lactate 2.8 H* (0.4-2.0) mmol/L Calcium 8.2 L (8.6-10.3) mg/dl POC Ioniz Calcium Yany (1.12-1.32) mmol/l Magnesium 1.7 (1.7-2.4) mg/dl Iron 49 (35-150) mcg/dl TIBC 137 L (250-450) mcg/dl Unsaturated IBC 88 L (155-355) mcg/dl Transferrin % Sat 36 (15-50) % Ferritin 244.3 (8-388) ng/ml Total Bilirubin 0.9 (0.2-1.0) mg/dl Direct Bilirubin 0.4 H (0-0.2) mg/dl AST 55 H (13-39) U/L ALT 17 (7-52) U/L Alkaline Phosphatase 241 H (34-104) U/L Total Protein 6.4 (6.0-8.3) gm/dl Albumin 3.0 L (3.4-5.0) gm/dl Lipase (11-82) U/L Vitamin B12 (180-914) pg/ml Folate (>5.38) ng/ml Urine Color Yellow Urine Appearance Cloudy A (Clear) Urine pH 6.0 (4.5-7.5) Ur Specific [place] 1.009 (1.000-1.030) Urine Protein Trace H (Negative) Urine Glucose (UA) Negative (Negative) Urine Ketones Negative (Negative) Urine Blood Negative (Negative) Urine Nitrite Negative (Negative) Urine Bilirubin Negative (Negative) Urine Urobilinogen Negative (Negative) Ur Leukocyte Esterase 1+ H (Negative) Urine WBC (Auto) 10-30 H (0-5) /hpf Urine RBC (Auto) 0-4 (0-4) /hpf U Hyaline Cast (Auto) 1-5 (0-5) /lpf U Epithel Cells (Auto) >30 H (0-5) /lpf Urine Bacteria (Auto) Negative (Negative) Urine Trichomonas Present H (None Prsent) Urine Yeast Not Reportable POC Ur Test (NEG) Ethyl Alcohol mg/dL (<10.0) mg/dl SARS-CoV-2, RNA, NAAT (NEGATIVE) 12/30/22 12/30/22 12/30/22 Range/Units 19:40 18:46 18:08 WBC (4.8-10.8) K/ul RBC (4.20-5.40) M/uL Hgb (12.0-16.0) g/dl POC Hgb (12.0-16.0) g/dl Hct (37.0-47.0) % POC Hct (37-47) % MCV (80.0-100.0) fL MCH (25.0-34.0) pg MCHC (32.0-36.0) g/dL RDW Std Deviation (36.4-46.3) fL RDW Coeff of Carmen (11.5-14.5) % Plt Count (130-400) K/uL MPV (9.4-12.4) fL Immature Gran % (Auto) % Neut % (Auto) % Lymph % (Auto) % [place] % (Auto) % Eos % (Auto) % Baso % (Auto) % Neut # (Auto) (1.40-6.50) K/uL Lymph # (Auto) (1.2-3.4) K/uL [place] # (Auto) (0.11-0.59) K/uL Eos # (Auto) (0-0.50) K/uL Baso # (Auto) (0-0.2) K/uL Immature Gran # (Auto) (0.01-0.20) K/uL Absolute Nucleated RBC (0-0.12) K/uL Nucleated RBC % (auto) % Polychromasia POC Sodium (135-144) mmol/L Sodium (136-145) mmol/L POC Potassium (3.3-5.0) mmol/L Potassium (3.5-5.1) mmol/L POC Chloride (101-112) mmol/L Chloride (98-107) mmol/L Carbon Dioxide (21-32) mmol/L POC Total CO2 (24-31) mmol/L Anion Gap (3-11) POC Anion Gap (16-25) mmol/L POC BUN (7-18) mg/dl BUN (6-23) mg/dl Creatinine (0.6-1.2) mg/dl POC Creatinine (0.6-1.3) mg/dl Est Cr Clr Drug Dosing ml/min Est GFR ( Amer) ml/min Est GFR (Non-Af Amer) ml/min BUN/Creatinine Ratio (10-20) Glucose (70-99(Fasting)) mg/dl POC Glucose (other) (70-99) mg/dl Lactate 4.1 H* (0.4-2.0) mmol/L Calcium (8.6-10.3) mg/dl POC Ioniz Calcium Yany (1.12-1.32) mmol/l Magnesium (1.7-2.4) mg/dl Iron (35-150) mcg/dl TIBC (250-450) mcg/dl Unsaturated IBC (155-355) mcg/dl Transferrin % Sat (15-50) % Ferritin (8-388) ng/ml Total Bilirubin (0.2-1.0) mg/dl Direct Bilirubin (0-0.2) mg/dl AST (13-39) U/L ALT (7-52) U/L Alkaline Phosphatase (34-104) U/L Total Protein (6.0-8.3) gm/dl Albumin (3.4-5.0) gm/dl Lipase (11-82) U/L Vitamin B12 (180-914) pg/ml Folate (>5.38) ng/ml Urine Color Urine Appearance (Clear) Urine pH (4.5-7.5) Ur Specific [place] (1.000-1.030) Urine Protein (Negative) Urine Glucose (UA) (Negative) Urine Ketones (Negative) Urine Blood (Negative) Urine Nitrite (Negative) Urine Bilirubin (Negative) Urine Urobilinogen (Negative) Ur Leukocyte Esterase (Negative) Urine WBC (Auto) (0-5) /hpf Urine RBC (Auto) (0-4) /hpf U Hyaline Cast (Auto) (0-5) /lpf U Epithel Cells (Auto) (0-5) /lpf Urine Bacteria (Auto) (Negative) Urine Trichomonas (None Prsent) Urine Yeast POC Ur Test NEG (NEG) Ethyl Alcohol mg/dL (<10.0) mg/dl SARS-CoV-2, RNA, NAAT NEGATIVE (NEGATIVE) 12/30/22 12/30/22 12/30/22 Range/Units 17:28 17:20 17:20 WBC (4.8-10.8) K/ul RBC (4.20-5.40) M/uL Hgb (12.0-16.0) g/dl POC Hgb 11.6 L (12.0-16.0) g/dl Hct (37.0-47.0) % POC Hct 34 L (37-47) % MCV (80.0-100.0) fL MCH (25.0-34.0) pg MCHC (32.0-36.0) g/dL RDW Std Deviation (36.4-46.3) fL RDW Coeff of Carmen (11.5-14.5) % Plt Count (130-400) K/uL MPV (9.4-12.4) fL Immature Gran % (Auto) % Neut % (Auto) % Lymph % (Auto) % [place] % (Auto) % Eos % (Auto) % Baso % (Auto) % Neut # (Auto) (1.40-6.50) K/uL Lymph # (Auto) (1.2-3.4) K/uL [place] # (Auto) (0.11-0.59) K/uL Eos # (Auto) (0-0.50) K/uL Baso # (Auto) (0-0.2) K/uL Immature Gran # (Auto) (0.01-0.20) K/uL Absolute Nucleated RBC (0-0.12) K/uL Nucleated RBC % (auto) % Polychromasia POC Sodium 139 (135-144) mmol/L Sodium 137 (136-145) mmol/L POC Potassium 3.3 (3.3-5.0) mmol/L Potassium 3.3 L (3.5-5.1) mmol/L POC Chloride 108 (101-112) mmol/L Chloride 107 (98-107) mmol/L Carbon Dioxide 14 L (21-32) mmol/L POC Total CO2 14 L (24-31) mmol/L Anion Gap 16 H (3-11) POC Anion Gap 21.0 (16-25) mmol/L POC BUN < 3 L (7-18) mg/dl BUN 5 L (6-23) mg/dl Creatinine 0.65 (0.6-1.2) mg/dl POC Creatinine 0.8 (0.6-1.3) mg/dl Est Cr Clr Drug Dosing 134.6 ml/min Est GFR ( Amer) 133.3 ml/min Est GFR (Non-Af Amer) 115.0 ml/min BUN/Creatinine Ratio 7.7 L (10-20) Glucose 94 (70-99(Fasting)) mg/dl POC Glucose (other) 97 (70-99) mg/dl Lactate (0.4-2.0) mmol/L Calcium 9.2 (8.6-10.3) mg/dl POC Ioniz Calcium Yany 1.16 (1.12-1.32) mmol/l Magnesium (1.7-2.4) mg/dl Iron (35-150) mcg/dl TIBC (250-450) mcg/dl Unsaturated IBC (155-355) mcg/dl Transferrin % Sat (15-50) % Ferritin (8-388) ng/ml Total Bilirubin 1.0 (0.2-1.0) mg/dl Direct Bilirubin 0.4 H (0-0.2) mg/dl AST 59 H (13-39) U/L ALT 19 (7-52) U/L Alkaline Phosphatase 280 H (34-104) U/L Total Protein 7.7 (6.0-8.3) gm/dl Albumin 3.6 (3.4-5.0) gm/dl Lipase 28 (11-82) U/L Vitamin B12 (180-914) pg/ml Folate (>5.38) ng/ml Urine Color Urine Appearance (Clear) Urine pH (4.5-7.5) Ur Specific [place] (1.000-1.030) Urine Protein (Negative) Urine Glucose (UA) (Negative) Urine Ketones (Negative) Urine Blood (Negative) Urine Nitrite (Negative) Urine Bilirubin (Negative) Urine Urobilinogen (Negative) Ur Leukocyte Esterase (Negative) Urine WBC (Auto) (0-5) /hpf Urine RBC (Auto) (0-4) /hpf U Hyaline Cast (Auto) (0-5) /lpf U Epithel Cells (Auto) (0-5) /lpf Urine Bacteria (Auto) (Negative) Urine Trichomonas (None Prsent) Urine Yeast POC Ur Test (NEG) Ethyl Alcohol mg/dL 137.4 H (<10.0) mg/dl SARS-CoV-2, RNA, NAAT (NEGATIVE) 12/30/22 Range/Units 17:20 WBC 23.30 H (4.8-10.8) K/ul RBC 3.12 L (4.20-5.40) M/uL Hgb 10.5 L (12.0-16.0) g/dl POC Hgb (12.0-16.0) g/dl Hct 32.4 L (37.0-47.0) % POC Hct (37-47) % MCV 103.8 H (80.0-100.0) fL MCH 33.7 (25.0-34.0) pg MCHC 32.4 (32.0-36.0) g/dL RDW Std Deviation 53.6 H (36.4-46.3) fL RDW Coeff of Carmen 14.3 (11.5-14.5) % Plt Count 620 H (130-400) K/uL MPV 9.4 (9.4-12.4) fL Immature Gran % (Auto) 2.7 % Neut % (Auto) 65.9 % Lymph % (Auto) 20.7 % [place] % (Auto) 7.7 % Eos % (Auto) 2.1 % Baso % (Auto) 0.9 % Neut # (Auto) 15.34 H (1.40-6.50) K/uL Lymph # (Auto) 4.83 H (1.2-3.4) K/uL [place] # (Auto) 1.80 H (0.11-0.59) K/uL Eos # (Auto) 0.50 (0-0.50) K/uL Baso # (Auto) 0.21 H (0-0.2) K/uL Immature Gran # (Auto) 0.62 H (0.01-0.20) K/uL Absolute Nucleated RBC 0.02 (0-0.12) K/uL Nucleated RBC % (auto) 0.1 % Polychromasia 1+ POC Sodium (135-144) mmol/L Sodium (136-145) mmol/L POC Potassium (3.3-5.0) mmol/L Potassium (3.5-5.1) mmol/L POC Chloride (101-112) mmol/L Chloride (98-107) mmol/L Carbon Dioxide (21-32) mmol/L POC Total CO2 (24-31) mmol/L Anion Gap (3-11) POC Anion Gap (16-25) mmol/L POC BUN (7-18) mg/dl BUN (6-23) mg/dl Creatinine (0.6-1.2) mg/dl POC Creatinine (0.6-1.3) mg/dl Est Cr Clr Drug Dosing ml/min Est GFR ( Amer) ml/min Est GFR (Non-Af Amer) ml/min BUN/Creatinine Ratio (10-20) Glucose (70-99(Fasting)) mg/dl POC Glucose (other) (70-99) mg/dl Lactate (0.4-2.0) mmol/L Calcium (8.6-10.3) mg/dl POC Ioniz Calcium Yany (1.12-1.32) mmol/l Magnesium (1.7-2.4) mg/dl Iron (35-150) mcg/dl TIBC (250-450) mcg/dl Unsaturated IBC (155-355) mcg/dl Transferrin % Sat (15-50) % Ferritin (8-388) ng/ml Total Bilirubin (0.2-1.0) mg/dl Direct Bilirubin (0-0.2) mg/dl AST (13-39) U/L ALT (7-52) U/L Alkaline Phosphatase (34-104) U/L Total Protein (6.0-8.3) gm/dl Albumin (3.4-5.0) gm/dl Lipase (11-82) U/L Vitamin B12 (180-914) pg/ml Folate (>5.38) ng/ml Urine Color Urine Appearance (Clear) Urine pH (4.5-7.5) Ur Specific [place] (1.000-1.030) Urine Protein (Negative) Urine Glucose (UA) (Negative) Urine Ketones (Negative) Urine Blood (Negative) Urine Nitrite (Negative) Urine Bilirubin (Negative) Urine Urobilinogen (Negative) Ur Leukocyte Esterase (Negative) Urine WBC (Auto) (0-5) /hpf Urine RBC (Auto) (0-4) /hpf U Hyaline Cast (Auto) (0-5) /lpf U Epithel Cells (Auto) (0-5) /lpf Urine Bacteria (Auto) (Negative) Urine Trichomonas (None Prsent) Urine Yeast POC Ur Test (NEG) Ethyl Alcohol mg/dL (<10.0) mg/dl SARS-CoV-2, RNA, NAAT (NEGATIVE) (1) Abdominal pain Abdominal location: unspecified location Qualified Code(s): R10.9 - Unspecified abdominal pain
[2022-12-31] MEDS: NICOTINE 21 MG/24 HR TDSY TD SCH (10:25)
--- NOTE | 2022-12-31 10:31 | Electrocardiogram Report ---
Test Reason : Blood Pressure : / mmHG Vent. Rate : 105 BPM Atrial Rate : 105 BPM P-R Int : 156 ms QRS Dur : 100 ms QT Int : 380 ms P-R-T Axes : 057 015 041 degrees QTc Int : 502 ms Sinus tachycardia Nonspecific ST abnormality Otherwise normal ECG When compared with ECG of 17-SEP-2022 21:57, Nonspecific T wave abnormality now evident in Inferior leads Nonspecific T wave abnormality no longer evident in Lateral leads Confirmed by Zeferino Salazar ([id number] on 12/31/2022 10:30:44 AM Referred By: REFERRED SELF Confirmed By:Dl Salazar
[2022-12-31] MEDS: DICYCLOMINE HCL 10 MG CAP PO SCH ×2 (10:53→16:08)
[2022-12-31 11:33] LABS: Amphetamines+Metham, Urine Neg (Neg); Barbiturates, Urine Neg (Neg); Benzodiazepine, Urine Neg (Neg); Cocaine, Urine Neg (Neg); MDMA (Ecstacy), Urine Neg (Neg); Methadone, Urine Neg (Neg); Opiate, Urine Pos (Neg); Phencyclidine, Urine Neg (Neg)
[2022-12-31] MEDS: ENOXAPARIN INJ 40 MG/0.4 ML SYR SQ SCH (12:13)
[2022-12-31] MEDS: CHOLESTYRAMINE LIGHT 4 GM PKT PO SCH (12:13)
[2022-12-31] MEDS ORDERED: LORazepam 2 MG/1 ML VIAL IV STA (20:41)
[2023-01-01] MEDS: D5W AND NSS 1,000 ML IV SCH ×2 (02:37→08:55)
[2023-01-01] MEDS: HYDROmorphone INJ 0.5 MG/0.5 ML SYR IV PRN ×5 (02:39→21:54)
[2023-01-01] MEDS: ONDANSETRON INJ 2 MG/ML 2 ML VIAL IV PRN (04:18)
[2023-01-01] MEDS: LORazepam 2 MG/1 ML VIAL IV PRN (04:52)
[2023-01-01] MEDS: GABAPENTIN 600 MG TAB PO SCH (05:04)
--- NOTE | 2023-01-01 08:07 | Hospitalist Progress Note ---
Date of Service January 01, 2023 Assessment & Plan (1) Sepsis: Plan: Possible evolving sepsis. Starting protocol with IVF, labwork and abx. Gen surgeon contacted to help with source control. (2) Abdominal pain: Plan: uncertain cause but patient has multiple chronic medical problems including HTN, obesity, bipolar disorder, alcoholism, h/o migraines, anxiety and PTSD. She uses CBD gummies and smokes. She has chronic diarrhea. This pain appears similar in quality to her RUQ pain from her recent hospital admission. CT scan a/p reviewed with patient and reveals fatty liver and patent portal veins, alcohol level was 137 on arrival so alcohol use may be contributing to ongoing pain, noted EGD and CSP a couple of months ago and she follows with GI who saw her today. The patient was previously sent home with Sumaya and said this was somewhat helpful but she stopped it because of no refills and a spontaneous resolution of her pain. 01/01: she is in more pain today with worsening abdominal distension today. Lactate has not corrected, however, she has ongoing difficulties with PO intake including vomiting once overnight and ongoing base loss from diarrhea. With worsening abdominal exam and overall clinical picture I am more concerned at this time for mesenteric ischemia or other cause of acute surgical abdomen. Other causes of pain include but are not limited to incarcerated bowel from hernia or other entrapment, Stat surgery consult placed to Dr. Faustin who will see her. Gave additional pain medication now and increased frequency of dilaudid. She is tolerating PO at this point somewhat. Increased IVF to LR @ 150 cc/hr. KUB ordered for now. (3) Lactic acidemia: Plan: Cont IVF and trend lactate. Regular diet ordered. (4) Alcohol abuse: Plan: Presented intoxicated. Monitor for withdrawal. Patient reports wanting to quit, and has been to rehab in the past. Cont gabapentin taper, folate and thiamine daily. 01/01: tachycardia may be consistent with withdrawal, but she is also possibly tachycardic with acute abdominal symptoms above. For now stopped gabapentin and cautious use of benzos (5) Chronic diarrhea: Plan: Questran not working for her. Will order stool culture with worsening clinical picture. KUB ordered as above. (6) Hypertension: Plan: normal to low. HCTZ and lisinopril have been held. (7) Anemia: Plan: chronic, but progressively worse. Likely multifactorial given intermittent blood per rectum from hemorrhoids, multiple chronic medical problems. Recent EGD/CSP, monitor for overt bleeding and trend CBC. 01/01: peripheral smear pending, retic count slightly elevated, LDH and haptoglobin pending. Direct Gerard negative. No active bleeding. Cont to trend and workup. Lovenox Full Dipso-cont telemetry montoring. [facility] Hospitalist Admission and Anticipated Discharge Date Admission Date: December 30, 2022 Subjective 37 yo F with h/o alcoholism presents with RUQ pain that is sharp intermittent Patient with worsening abdominal pain today. She is reporting anxiety from the pain and from the room. She states that she asked the covering RN for pain meds and was told that her RN was at lunch and would need to return before she could have anything. This made her more upset and anxious. She reports missing her kids, which is contributing to this. She feels her abdomen is more distended today She reports continued BMs that are loose today. Review of Systems Review of Systems: All systems were reviewed and negative except as indicated on HPI above. Physical Exam Physical Exam: CONSTITUTIONAL: obese, vitals as above, generally ill-appearing and in moderate distress EYES: normal conjunctivae, no scleral icterus ENT: external ear and nose normal, MMM NECK: trachea midline RESPIRATORY: clear to auscultation bilaterally, no crackles, rales or wheezes, normal respiratory effort CARDIOVASCULAR: regular rate and rhythm, S1 and 2 heard without murmurs, gallops or rubs, no JVD, no peripheral edema CHEST: inspection of chest was normal GASTROINTESTINAL: more distended today, TTP in RUQ (today this is more tender and she won't let me palpate here), there is a fullness in her RUQ and LUQ consistent with [facility] MUSCULOSKELETAL: strength 5/5 throughout, head is normocephalic and atraumatic SKIN: warm and dry NEUROLOGIC: CN 2-12 grossly intact, no sensory deficit, normal cognition, normal speech, no tremor PSYCHIATRIC: alert cooperative and oriented to person, place and time. Appears anxious. Results & Data Results & Data Vital Signs (Past 12 Hours) Vital Signs Temp Pulse Pulse Resp BP BP Pulse Ox 01/01/23 07:52 36.9 C 87 18 98/64 L 92 01/01/23 07:23 91 H 01/01/23 03:38 37.1 C 93 H 18 96/59 L 92 12/31/22 23:00 98 H 12/31/22 23:00 36.4 C L 99 H 18 106/70 94 O2 Del Method 01/01/23 07:52 Room Air 01/01/23 07:23 01/01/23 03:38 Room Air 12/31/22 23:00 12/31/22 23:00 Room Air Laboratory Results Short CBC 01/01/23 Range/Units 08:19 WBC 17.00 H (4.8-10.8) K/ul Hgb 8.8 L (12.0-16.0) g/dl Hct 28.1 L (37.0-47.0) % Plt Count 481 H (130-400) K/uL BMP 01/01/23 08:19 Sodium 141 Potassium 3.1 L Chloride 114 H Carbon Dioxide 20 L BUN 2 L Creatinine 0.65 Glucose 83 Calcium 7.9 L Liver Function 01/01/23 Range/Units 08:19 Total Bilirubin 0.8 (0.2-1.0) mg/dl AST 49 H (13-39) U/L ALT 16 (7-52) U/L Alkaline Phosphatase 238 H (34-104) U/L Albumin 2.8 L (3.4-5.0) gm/dl Medications Administered Current Inpatient Medications Acetaminophen (Acetaminophen 325 Mg Tab) 650 mg PO Q4H PRN PRN Reason: pain/fever Stop: 01/30/23 00:33 Cholestyramine Resin (Cholestyramine Light 4 Gm Pkt) 2 gm PO DAILY@1100 [facility] Stop: 01/30/23 10:59 Last Admin: 01/01/23 12:59 Dose: 2 gm Cyanocobalamin (Cyanocobalamin 1000 Mcg/Ml Vial) 1,000 mcg IM QAM VANIA Stop: 01/07/23 09:01 Last Admin: 01/01/23 11:09 Dose: 1,000 mcg Dicyclomine HCl (Dicyclomine Hcl 10 Mg Cap) 10 mg PO AC VANIA Stop: 01/30/23 11:29 Last Admin: 01/01/23 11:12 Dose: 10 mg Enoxaparin Sodium (Enoxaparin Inj 40 Mg/0.4 Ml Syr) 40 mg SQ QAM VANIA Stop: 01/30/23 10:59 Last Admin: 01/01/23 08:53 Dose: Not Given Folic Acid (Folic Acid 1 Mg Tab) 1 mg PO QAM [facility] Stop: 01/31/23 08:59 Last Admin: 01/01/23 08:55 Dose: 1 mg Gabapentin (Gabapentin 600 Mg Tab) 600 mg PO Q8H [facility] Last Admin: 01/01/23 05:04 Dose: 600 mg Hydrochlorothiazide (Hydrochlorothiazide 25 Mg Tab) 25 mg PO QAM [facility] Stop: 01/30/23 08:59 Last Admin: 01/01/23 08:55 Dose: Not Given Hydromorphone HCl (Hydromorphone Inj 0.5 Mg/0.5 Ml Syr) 0.5 mg IV Q2H PRN PRN Reason: severe breakthrough pain Stop: 01/14/23 00:33 Lactated Ringer's (Lr) 1,000 mls @ 150 mls/hr IV .Q6H40M [facility] Stop: 01/02/23 05:49 Lisinopril (Lisinopril 10 Mg Tab) 10 mg PO QAM [facility] Stop: 01/30/23 08:59 Last Admin: 01/01/23 08:55 Dose: Not Given Lorazepam (Lorazepam 0.5 Mg Tab) 0.5 mg PO UD PRN PRN Reason: AWSS score 6+ Stop: 01/31/23 10:17 Miscellaneous (Remove Nicoderm Patch) 1 each N/A DAILY@0859 [facility] Stop: 01/30/23 08:58 Last Admin: 01/01/23 08:55 Dose: 1 each Multivitamins (Multivitamin Tab) 1 tab PO QAM [facility] Stop: 01/30/23 08:59 Last Admin: 01/01/23 08:55 Dose: 1 tab Nicotine (Nicotine 21 Mg/24 Hr Tdsy) 21 mg TD DAILY [facility] Stop: 01/30/23 08:59 Last Admin: 01/01/23 08:55 Dose: 21 mg Ondansetron HCl (Ondansetron Inj 2 Mg/Ml 2 Ml Vial) 4 mg IV Q6H PRN PRN Reason: Nausea Stop: 01/30/23 00:33 Last Admin: 01/01/23 04:18 Dose: 4 mg Potassium Phosphate (Pot Phosphate Monobasic W/ Sod Tab) 2 tab PO QID [facility] Stop: 01/01/23 17:01 Last Admin: 01/01/23 12:13 Dose: 2 tab Thiamine HCl (Thiamine Hcl 100 Mg Tab) 100 mg PO [facility] Stop: 01/31/23 08:59 Last Admin: 01/01/23 08:54 Dose: 100 mg (2) Abdominal pain Abdominal location: unspecified location Qualified Code(s): R10.9 - Unspecified abdominal pain (6) Hypertension Hypertension type: unspecified Qualified Code(s): I10 - Essential (primary) hypertension
[2023-01-01 08:51] LABS: Basophils # (auto) 0.13 K/uL (0-0.2); Basophils % (auto) 0.8 %; Eosinophils # (auto) 0.39 K/uL (0-0.50); Eosinophils % (auto) 2.3 %; Hematocrit (blood only) 28.1 % (37.0-47.0); Hemoglobin 8.8 g/dl (12.0-16.0); Immature Granulocytes # (auto) 0.18 K/uL (0.01-0.20); Immature Granulocytes % (auto) 1.1 %; Lymphocytes # (auto) 3.57 K/uL (1.2-3.4); Mean Corpuscular Hemoglobin 33.2 pg (25.0-34.0); Mean Corpuscular Hgb Conc 31.3 g/dL (32.0-36.0); Mean Platelet Volume 9.3 fL (9.4-12.4); Monocytes # (auto) 1.52 K/uL (0.11-0.59); Monocytes % (auto) 8.9 %; Neutrophils # (auto) 11.21 K/uL (1.40-6.50); Neutrophils % (auto) 65.9 %; Platelet Count 481 K/uL (130-400); RDW Coefficient of Variation 14.4 % (11.5-14.5); RDW Standard Deviation 56.6 fL (36.4-46.3); Red Blood Count 2.65 M/uL (4.20-5.40)
[2023-01-01] MEDS: ENOXAPARIN INJ 40 MG/0.4 ML SYR SQ SCH (08:53)
[2023-01-01] MEDS: THIAMINE HCL 100 MG TAB PO SCH (08:54)
[2023-01-01] MEDS: DICYCLOMINE HCL 10 MG CAP PO SCH ×3 (08:54→17:12)
[2023-01-01] MEDS: lisinopril 10 MG TAB PO SCH (08:55)
[2023-01-01] MEDS: NICOTINE 21 MG/24 HR TDSY TD SCH (08:55)
[2023-01-01] MEDS: MULTIVITAMIN TAB PO SCH (08:55)
[2023-01-01] MEDS: hydroCHLOROthiazide 25 MG TAB PO SCH (08:55)
[2023-01-01] MEDS: FOLIC ACID 1 MG TAB PO SCH (08:55)
[2023-01-01 09:32] LABS: Albumin Globulin Ratio 0.8 (0.9-2); Albumin Level 2.8 gm/dl (3.4-5.0); BUN Creatinine Ratio 3.1 (10-20); Bilirubin,Total 0.8 mg/dl (0.2-1.0); Calcium 7.9 mg/dl (8.6-10.3); Creatinine Clr Calc Pharmacy 139.1 ml/min; Est GFR (African American) 133.3 ml/min; Globulin 3.3 gm/dl (2.5-4.0); Magnesium 1.7 mg/dl (1.7-2.4); Phosphorus 2.4 mg/dl (2.5-4.9); Potassium 3.1 mmol/L (3.5-5.1); Total Protein 6.1 gm/dl (6.0-8.3)
[2023-01-01] MEDS ORDERED: LORazepam 0.5 MG TAB PO PRN (10:18)
[2023-01-01] MEDS: POTASSIUM CHLORIDE CRTAB 20 MEQ TABCR PO SCH ×2 (11:08→17:12)
[2023-01-01] MEDS: CYANOCOBALAMIN 1000 MCG/ML VIAL IM SCH (11:09)
[2023-01-01] MEDS: MAGNESIUM SULFATE / D5W 1 GM/100 ML BAG IV SCH ×2 (11:09→12:58)
[2023-01-01 11:35] LABS: Reticulocyte % 3.6 % (0.5-2.0); Reticulocytes # 0.1 10^6/uL (0.02-0.10)
[2023-01-01] MEDS: POT PHOSPHATE MONOBASIC W/ SOD TAB PO SCH ×2 (12:13→17:11)
[2023-01-01 12:14] LABS: Thyroid Stimulating Hormone 9.484 uIu/ml (0.300-4.500)
[2023-01-01 12:53] LABS: T4 Free Thyroxine 1.24 ng/dl (0.61-1.60)
[2023-01-01] MEDS: CHOLESTYRAMINE LIGHT 4 GM PKT PO SCH (12:59)
[2023-01-01] MEDS ORDERED: HYDROmorphone INJ 0.5 MG/0.5 ML SYR IV STA (16:28)
[2023-01-01] MEDS ORDERED: LACTATED RINGER'S 1,000 ML IV ONE ×2 (16:50→19:24)
--- NOTE | 2023-01-01 17:39 | XRay Report ---
XR chest 1V portable CLINICAL HISTORY: Sepsis. COMPARISON STUDY: Chest radiograph September 06, 2022. FINDINGS: Lung volumes are normal. Lungs are clear. There is no pneumothorax or pleural effusion. Car diac size is normal. Mediastinal contours are normal. There is no evidence for pulmonary edema. IMPRESSION: No acute cardiopulmonary findings. ACT 112: Negative or not required by law. Electronically signed by: Mo Alston M.D. 01/01/2023 5:37 PM
--- NOTE | 2023-01-01 17:44 | XRay Report ---
KUB CLINICAL HISTORY: worsening abdominal distension and pain COMPARISON STUDY: CT of the abdomen and pelvis December 30, 2022. FINDINGS: There is no evidence for a bowel obstruction. Right upper quadrant density is due to hepato megaly, as shown on CT of December 30, 2022. There are cholecystectomy clips. IMPRESSION: 1. No evidence for a bowel obstruction. 2. Hepatomegaly, better depicted on recent abdominal CT. ACT 112: Negative or not required by law. Electronically signed by: Mo Alston M.D. 01/01/2023 5:43 PM
--- NOTE | 2023-01-01 17:59 | Surgery Consultation ---
Date of Consultation January 01, 2023 Assessment & Plan (1) Abdominal pain: patient is a 37 year-old female who was admitted to hospital for abdominal pain and diarrhea for last 8 months. WBC down to 17 from 23 2 days ago, alk phos 234. HGb 8.8.lactate 3 ( 4.[address] scan-1. No acute infectious or inflammatory findings are identified in the abdomen or pelvis. 2. Marked hepatosplenomegaly with evidence of hepatic steatosis. 3. Cardiomegaly. 4. The complex right renal lesion seen previously is much less apparent than on the prior examination. This remains indeterminant. IMP: abdominal pain, chronic GI infection? CBD stone ?, chronic ischemic bowel? plan: based on pt's H/P, labs and CT scan , in order to R/O ischemic bowel, recommend to do CT scan angiogram study , consult GI to R/O possible CBD stone and colitis. control pain.repeat labs in morning, D/W benefits, risks and alternatives of the CT scan, pt understood, she agreed with CT scan and treatment plan, D/W pt's attending. she agreed with the plan, will F/U, History of Present Illness Reason for Consultation: abdominal pain Requesting Physician: Tabitha Abraham DO Attending Physician: Tabitha Abraham DO History of Present Illness CC: abdominal pain with chronic diarrhea HPI: patient is a 37 year-old female who was admitted to hospital for abdominal pain and diarrhea 2 days ago. I got a called for consult abdominal pain. patient presented with PMH/PSH- alcoholism, tobacco abuse, chronic diarrhea and chronic abdominal pain for last 8 months. HTN, obesity, bipolar disorder, anxiety, stroke-like symptoms, and pt had laparoscopic cholecystectomy 8 years ago. patient said she started have abdominal pain and diarrhea for last 8 months, the abdominal pain located at upper abdomen and RUQ, with nausea and vomiting. the pain is radiate to back. patient denies fever, no chest pain. no dysuria patient was admitted to hospital in 09/2022 for same symptoms. abdominal pain, and diarrhea, pt had MRCP- no CBD stone, colonoscopy- 2 small benign polys were removed, possible colitis. patient said she stop drinking alcohol on 07/2022. but started drinking again 2 days ago. pt had [address] scan ( 12/30/2022)IMPRESSION: 1. No acute infectious or inflammatory findings are identified in the abdomen or pelvis. 2. Marked hepatosplenomegaly with evidence of hepatic steatosis. 3. Cardiomegaly. 4. The complex right renal lesion seen previously is much less apparent than on the prior examination. This remains indeterminant. 5. Additional findings as above. Allergies Allergy/AdvReac Type Severity Reaction Status Date / Time nut - unspecified Allergy Severe Anaphylaxis Verified 12/30/22 19:17 Penicillins Allergy Severe Difficulty Verified 12/30/22 19:17 Breathing tree nut Allergy Severe Anaphylaxis Verified 12/30/22 19:17 morphine Allergy Intermediate Hives Verified 12/30/22 19:17 mushroom Allergy Intermediate Hives Verified 12/30/22 19:17 Home Medications Medication Instructions Recorded Confirmed Type epinephrine 0.3 mg/0.3 mL 0.3 mg IM DIRECTED PRN Allergic 05/13/18 12/30/22 History injection, auto-injector (EpiPen) Reaction hydrochlorothiazide 25 mg tablet 25 mg PO QAM 06/19/22 12/30/22 History lisinopril 10 mg tablet 10 mg PO QAM 06/19/22 12/30/22 History multivitamin with folic acid 400 1 tab PO QAM #30 tabs 09/09/22 12/30/22 Rx mcg tablet (Daily-Rajendra (with folic acid)) Patient History Medical History Abdominal pain Acute hyponatremia Alcohol abuse, unspecified (07/15/12) Anxiety state, unspecified (06/16/11) Bipolar disorder Encounter for pre-operative examination Headache Hypertension (07/15/12) Hypokalemia Hypomagnesemia Overdose of antipsychotic TIA (transient ischemic attack) Surgical History Cholecystostomy care History of appendectomy (12/25/12) History of dental surgery Previous section 2007,2008,2009,2012 Tubal ligation status Family History Father Diabetes Hypertension Other Breast cancer No pertinent family history Social History Smoking Status: Current every day smoker Tobacco Type: Cigarettes Cigarettes Per Day: more than 1/2 a pack daily; Second Hand Exposure: No; Do You Dip or Chew Tobacco: No; Hx Alcohol Use: Yes Alcohol type: hard liquor Hx Substance Use: No Preferred Language: Maltese Communication Ability: Effective Support Specialist Required: Yes Beliefs That Will Affect Care: Spiritual marital status: Current Living Situation: Spouse current occupational status: unemployed current occupation: Prior employment at [employer] How many Children do You have: 4 Feels Safe at Home: Yes during the past year weight has: increased > 10 lbs Assistive Devices: None Review of Systems Review of Systems: reviewed review of systems, unremarkable finding except as HPI and below. Physical Exam Constitutional: WD/WN, vitals as above no distress, many family members with patient. Eyes: PERRL, conjunctivae normal, anicteric sclerae Neck: trachea midline, no thyromegaly Respiratory: normal respiratory effort, lungs clear to auscultation Cardiovascular: RRR, no murmur, no edema Gastrointestinal (Abdomen): soft, tenderness at RUQ, no rebound pain, no distend, BS +, no significant bulging or tenderness at umbilical area. Musculoskeletal: no cyanosis or clubbing, extremities motor strength 5/5 Neurologic: patellar DTR's 2+ bilat, sensation intact Psychiatric: A+Ox3, euthymic affect Results & Data Vital Signs (Past 12 Hours) Vital Signs Temp Pulse Pulse Resp BP Pulse Ox O2 Del Method 01/01/23 15:47 107 H 01/01/23 14:54 37.1 C 104 H 20 105/72 95 Room Air 01/01/23 11:13 36.8 C 97 H 20 119/83 93 Room Air 01/01/23 07:52 36.9 C 87 18 98/64 L 92 Room Air 01/01/23 07:23 91 H Laboratory Results Lab Results 12/30/22 12/30/22 12/30/22 Range/Units 17:20 17:20 17:20 WBC 23.30 H (4.8-10.8) K/ul RBC 3.12 L (4.20-5.40) M/uL Hgb 10.5 L (12.0-16.0) g/dl POC Hgb (12.0-16.0) g/dl Hct 32.4 L (37.0-47.0) % POC Hct (37-47) % MCV 103.8 H (80.0-100.0) fL MCH 33.7 (25.0-34.0) pg MCHC 32.4 (32.0-36.0) g/dL RDW Std Deviation 53.6 H (36.4-46.3) fL RDW Coeff of Carmen 14.3 (11.5-14.5) % Plt Count 620 H (130-400) K/uL MPV 9.4 (9.4-12.4) fL Immature Gran % (Auto) 2.7 % Neut % (Auto) 65.9 % Lymph % (Auto) 20.7 % [place] % (Auto) 7.7 % Eos % (Auto) 2.1 % Baso % (Auto) 0.9 % Reticulocyte % (Auto) (0.5-2.0) % Neut # (Auto) 15.34 H (1.40-6.50) K/uL Lymph # (Auto) 4.83 H (1.2-3.4) K/uL [place] # (Auto) 1.80 H (0.11-0.59) K/uL Eos # (Auto) 0.50 (0-0.50) K/uL Baso # (Auto) 0.21 H (0-0.2) K/uL Reticulocyte # (0.02-0.10) 10^6/uL Immature Gran # (Auto) 0.62 H (0.01-0.20) K/uL Absolute Nucleated RBC 0.02 (0-0.12) K/uL Nucleated RBC % (auto) 0.1 % Polychromasia 1+ Peripher Smr Path Cons VBG pH (7.36-7.41) POC Sodium (135-144) mmol/L Sodium 137 (136-145) mmol/L POC Potassium (3.3-5.0) mmol/L Potassium 3.3 L (3.5-5.1) mmol/L POC Chloride (101-112) mmol/L Chloride 107 (98-107) mmol/L Carbon Dioxide 14 L (21-32) mmol/L POC Total CO2 (24-31) mmol/L Anion Gap 16 H (3-11) POC Anion Gap (16-25) mmol/L POC BUN (7-18) mg/dl BUN 5 L (6-23) mg/dl Creatinine 0.65 (0.6-1.2) mg/dl POC Creatinine (0.6-1.3) mg/dl Est Cr Clr Drug Dosing 134.6 ml/min Est GFR ( Amer) 133.3 ml/min Est GFR (Non-Af Amer) 115.0 ml/min BUN/Creatinine Ratio 7.7 L (10-20) Glucose 94 (70-99(Fasting)) mg/dl POC Glucose (other) (70-99) mg/dl Lactate (0.4-2.0) mmol/L Calcium 9.2 (8.6-10.3) mg/dl POC Ioniz Calcium Yany (1.12-1.32) mmol/l Phosphorus (2.5-4.9) mg/dl Magnesium (1.7-2.4) mg/dl Iron (35-150) mcg/dl TIBC (250-450) mcg/dl Unsaturated IBC (155-355) mcg/dl Transferrin % Sat (15-50) % Ferritin (8-388) ng/ml Total Bilirubin 1.0 (0.2-1.0) mg/dl Direct Bilirubin 0.4 H (0-0.2) mg/dl AST 59 H (13-39) U/L ALT 19 (7-52) U/L Alkaline Phosphatase 280 H (34-104) U/L Lactate Dehydrogenase (86-244) U/L Total Protein 7.7 (6.0-8.3) gm/dl Albumin 3.6 (3.4-5.0) gm/dl Globulin (2.5-4.0) gm/dl Albumin/Globulin Ratio (0.9-2) Lipase 28 (11-82) U/L Vitamin B12 (180-914) pg/ml Folate (>5.38) ng/ml TSH (0.300-4.500) uIu/ml Free T4 (0.61-1.60) ng/dl Urine Color Urine Appearance (Clear) Urine pH (4.5-7.5) Ur Specific [place] (1.000-1.030) Urine Protein (Negative) Urine Glucose (UA) (Negative) Urine Ketones (Negative) Urine Blood (Negative) Urine Nitrite (Negative) Urine Bilirubin (Negative) Urine Urobilinogen (Negative) Ur Leukocyte Esterase (Negative) Urine WBC (Auto) (0-5) /hpf Urine RBC (Auto) (0-4) /hpf U Hyaline Cast (Auto) (0-5) /lpf U Epithel Cells (Auto) (0-5) /lpf Urine Bacteria (Auto) (Negative) Urine Trichomonas (None Prsent) Urine Yeast POC Ur Test (NEG) Stl C. diff Tox B Gene (Neg) Urine Opiates Screen (Neg) Ur Methadone, Qual (Neg) Urine Barbiturates (Neg) Ur Phencyclidine (PCP) (Neg) U Amphetamin/Meth Scrn (Neg) MDMA (Ecstasy) Screen (Neg) U Benzodiazepines Scrn (Neg) Ur Cocaine Metabolite (Neg) U Marijuana (THC) Screen (Neg) Ethyl Alcohol mg/dL 137.4 H (<10.0) mg/dl SARS-CoV-2, RNA, NAAT (NEGATIVE) Direct Antiglob Test (Negative) EROS (IgG-AHG) (Negative) EROS, Polyspecific (Negative) EROS C3b, C3d 5 Min (Negative) 12/30/22 12/30/22 12/30/22 Range/Units 17:28 18:08 18:46 WBC (4.8-10.8) K/ul RBC (4.20-5.40) M/uL Hgb (12.0-16.0) g/dl POC Hgb 11.6 L (12.0-16.0) g/dl Hct (37.0-47.0) % POC Hct 34 L (37-47) % MCV (80.0-100.0) fL MCH (25.0-34.0) pg MCHC (32.0-36.0) g/dL RDW Std Deviation (36.4-46.3) fL RDW Coeff of Carmen (11.5-14.5) % Plt Count (130-400) K/uL MPV (9.4-12.4) fL Immature Gran % (Auto) % Neut % (Auto) % Lymph % (Auto) % [place] % (Auto) % Eos % (Auto) % Baso % (Auto) % Reticulocyte % (Auto) (0.5-2.0) % Neut # (Auto) (1.40-6.50) K/uL Lymph # (Auto) (1.2-3.4) K/uL [place] # (Auto) (0.11-0.59) K/uL Eos # (Auto) (0-0.50) K/uL Baso # (Auto) (0-0.2) K/uL Reticulocyte # (0.02-0.10) 10^6/uL Immature Gran # (Auto) (0.01-0.20) K/uL Absolute Nucleated RBC (0-0.12) K/uL Nucleated RBC % (auto) % Polychromasia Peripher Smr Path Cons VBG pH (7.36-7.41) POC Sodium 139 (135-144) mmol/L Sodium (136-145) mmol/L POC Potassium 3.3 (3.3-5.0) mmol/L Potassium (3.5-5.1) mmol/L POC Chloride 108 (101-112) mmol/L Chloride (98-107) mmol/L Carbon Dioxide (21-32) mmol/L POC Total CO2 14 L (24-31) mmol/L Anion Gap (3-11) POC Anion Gap 21.0 (16-25) mmol/L POC BUN < 3 L (7-18) mg/dl BUN (6-23) mg/dl Creatinine (0.6-1.2) mg/dl POC Creatinine 0.8 (0.6-1.3) mg/dl Est Cr Clr Drug Dosing ml/min Est GFR ( Amer) ml/min Est GFR (Non-Af Amer) ml/min BUN/Creatinine Ratio (10-20) Glucose (70-99(Fasting)) mg/dl POC Glucose (other) 97 (70-99) mg/dl Lactate 4.1 H* (0.4-2.0) mmol/L Calcium (8.6-10.3) mg/dl POC Ioniz Calcium Yany 1.16 (1.12-1.32) mmol/l Phosphorus (2.5-4.9) mg/dl Magnesium (1.7-2.4) mg/dl Iron (35-150) mcg/dl TIBC (250-450) mcg/dl Unsaturated IBC (155-355) mcg/dl Transferrin % Sat (15-50) % Ferritin (8-388) ng/ml Total Bilirubin (0.2-1.0) mg/dl Direct Bilirubin (0-0.2) mg/dl AST (13-39) U/L ALT (7-52) U/L Alkaline Phosphatase (34-104) U/L Lactate Dehydrogenase (86-244) U/L Total Protein (6.0-8.3) gm/dl Albumin (3.4-5.0) gm/dl Globulin (2.5-4.0) gm/dl Albumin/Globulin Ratio (0.9-2) Lipase (11-82) U/L Vitamin B12 (180-914) pg/ml Folate (>5.38) ng/ml TSH (0.300-4.500) uIu/ml Free T4 (0.61-1.60) ng/dl Urine Color Urine Appearance (Clear) Urine pH (4.5-7.5) Ur Specific [place] (1.000-1.030) Urine Protein (Negative) Urine Glucose (UA) (Negative) Urine Ketones (Negative) Urine Blood (Negative) Urine Nitrite (Negative) Urine Bilirubin (Negative) Urine Urobilinogen (Negative) Ur Leukocyte Esterase (Negative) Urine WBC (Auto) (0-5) /hpf Urine RBC (Auto) (0-4) /hpf U Hyaline Cast (Auto) (0-5) /lpf U Epithel Cells (Auto) (0-5) /lpf Urine Bacteria (Auto) (Negative) Urine Trichomonas (None Prsent) Urine Yeast POC Ur Test NEG (NEG) Stl C. diff Tox B Gene (Neg) Urine Opiates Screen (Neg) Ur Methadone, Qual (Neg) Urine Barbiturates (Neg) Ur Phencyclidine (PCP) (Neg) U Amphetamin/Meth Scrn (Neg) MDMA (Ecstasy) Screen (Neg) U Benzodiazepines Scrn (Neg) Ur Cocaine Metabolite (Neg) U Marijuana (THC) Screen (Neg) Ethyl Alcohol mg/dL (<10.0) mg/dl SARS-CoV-2, RNA, NAAT (NEGATIVE) Direct Antiglob Test (Negative) EROS (IgG-AHG) (Negative) EROS, Polyspecific (Negative) EROS C3b, C3d 5 Min (Negative) 12/30/22 12/30/22 12/30/22 Range/Units 19:40 19:52 Unknown WBC (4.8-10.8) K/ul RBC (4.20-5.40) M/uL Hgb (12.0-16.0) g/dl POC Hgb (12.0-16.0) g/dl Hct (37.0-47.0) % POC Hct (37-47) % MCV (80.0-100.0) fL MCH (25.0-34.0) pg MCHC (32.0-36.0) g/dL RDW Std Deviation (36.4-46.3) fL RDW Coeff of Carmen (11.5-14.5) % Plt Count (130-400) K/uL MPV (9.4-12.4) fL Immature Gran % (Auto) % Neut % (Auto) % Lymph % (Auto) % [place] % (Auto) % Eos % (Auto) % Baso % (Auto) % Reticulocyte % (Auto) (0.5-2.0) % Neut # (Auto) (1.40-6.50) K/uL Lymph # (Auto) (1.2-3.4) K/uL [place] # (Auto) (0.11-0.59) K/uL Eos # (Auto) (0-0.50) K/uL Baso # (Auto) (0-0.2) K/uL Reticulocyte # (0.02-0.10) 10^6/uL Immature Gran # (Auto) (0.01-0.20) K/uL Absolute Nucleated RBC (0-0.12) K/uL Nucleated RBC % (auto) % Polychromasia Peripher Smr Path Cons VBG pH (7.36-7.41) POC Sodium (135-144) mmol/L Sodium (136-145) mmol/L POC Potassium (3.3-5.0) mmol/L Potassium (3.5-5.1) mmol/L POC Chloride (101-112) mmol/L Chloride (98-107) mmol/L Carbon Dioxide (21-32) mmol/L POC Total CO2 (24-31) mmol/L Anion Gap (3-11) POC Anion Gap (16-25) mmol/L POC BUN (7-18) mg/dl BUN (6-23) mg/dl Creatinine (0.6-1.2) mg/dl POC Creatinine (0.6-1.3) mg/dl Est Cr Clr Drug Dosing ml/min Est GFR ( Amer) ml/min Est GFR (Non-Af Amer) ml/min BUN/Creatinine Ratio (10-20) Glucose (70-99(Fasting)) mg/dl POC Glucose (other) (70-99) mg/dl Lactate 2.8 H* (0.4-2.0) mmol/L Calcium (8.6-10.3) mg/dl POC Ioniz Calcium Yany (1.12-1.32) mmol/l Phosphorus (2.5-4.9) mg/dl Magnesium (1.7-2.4) mg/dl Iron (35-150) mcg/dl TIBC (250-450) mcg/dl Unsaturated IBC (155-355) mcg/dl Transferrin % Sat (15-50) % Ferritin (8-388) ng/ml Total Bilirubin (0.2-1.0) mg/dl Direct Bilirubin (0-0.2) mg/dl AST (13-39) U/L ALT (7-52) U/L Alkaline Phosphatase (34-104) U/L Lactate Dehydrogenase (86-244) U/L Total Protein (6.0-8.3) gm/dl Albumin (3.4-5.0) gm/dl Globulin (2.5-4.0) gm/dl Albumin/Globulin Ratio (0.9-2) Lipase (11-82) U/L Vitamin B12 (180-914) pg/ml Folate (>5.38) ng/ml TSH (0.300-4.500) uIu/ml Free T4 (0.61-1.60) ng/dl Urine Color Yellow Urine Appearance Cloudy A (Clear) Urine pH 6.0 (4.5-7.5) Ur Specific [place] 1.009 (1.000-1.030) Urine Protein Trace H (Negative) Urine Glucose (UA) Negative (Negative) Urine Ketones Negative (Negative) Urine Blood Negative (Negative) Urine Nitrite Negative (Negative) Urine Bilirubin Negative (Negative) Urine Urobilinogen Negative (Negative) Ur Leukocyte Esterase 1+ H (Negative) Urine WBC (Auto) 10-30 H (0-5) /hpf Urine RBC (Auto) 0-4 (0-4) /hpf U Hyaline Cast (Auto) 1-5 (0-5) /lpf U Epithel Cells (Auto) >30 H (0-5) /lpf Urine Bacteria (Auto) Negative (Negative) Urine Trichomonas Present H (None Prsent) Urine Yeast Not Reportable POC Ur Test (NEG) Stl C. diff Tox B Gene (Neg) Urine Opiates Screen (Neg) Ur Methadone, Qual (Neg) Urine Barbiturates (Neg) Ur Phencyclidine (PCP) (Neg) U Amphetamin/Meth Scrn (Neg) MDMA (Ecstasy) Screen (Neg) U Benzodiazepines Scrn (Neg) Ur Cocaine Metabolite (Neg) U Marijuana (THC) Screen (Neg) Ethyl Alcohol mg/dL (<10.0) mg/dl SARS-CoV-2, RNA, NAAT NEGATIVE (NEGATIVE) Direct Antiglob Test (Negative) EROS (IgG-AHG) (Negative) EROS, Polyspecific (Negative) EROS C3b, C3d 5 Min (Negative) 12/31/22 12/31/22 12/31/22 Range/Units 06:16 06:16 06:16 WBC (4.8-10.8) K/ul RBC (4.20-5.40) M/uL Hgb (12.0-16.0) g/dl POC Hgb (12.0-16.0) g/dl Hct (37.0-47.0) % POC Hct (37-47) % MCV (80.0-100.0) fL MCH (25.0-34.0) pg MCHC (32.0-36.0) g/dL RDW Std Deviation (36.4-46.3) fL RDW Coeff of Carmen (11.5-14.5) % Plt Count (130-400) K/uL MPV (9.4-12.4) fL Immature Gran % (Auto) % Neut % (Auto) % Lymph % (Auto) % [place] % (Auto) % Eos % (Auto) % Baso % (Auto) % Reticulocyte % (Auto) (0.5-2.0) % Neut # (Auto) (1.40-6.50) K/uL Lymph # (Auto) (1.2-3.4) K/uL [place] # (Auto) (0.11-0.59) K/uL Eos # (Auto) (0-0.50) K/uL Baso # (Auto) (0-0.2) K/uL Reticulocyte # (0.02-0.10) 10^6/uL Immature Gran # (Auto) (0.01-0.20) K/uL Absolute Nucleated RBC (0-0.12) K/uL Nucleated RBC % (auto) % Polychromasia Peripher Smr Path Cons VBG pH (7.36-7.41) POC Sodium (135-144) mmol/L Sodium 139 (136-145) mmol/L POC Potassium (3.3-5.0) mmol/L Potassium 3.2 L (3.5-5.1) mmol/L POC Chloride (101-112) mmol/L Chloride 111 H (98-107) mmol/L Carbon Dioxide 16 L (21-32) mmol/L POC Total CO2 (24-31) mmol/L Anion Gap 12 H (3-11) POC Anion Gap (16-25) mmol/L POC BUN (7-18) mg/dl BUN 3 L (6-23) mg/dl Creatinine 0.62 (0.6-1.2) mg/dl POC Creatinine (0.6-1.3) mg/dl Est Cr Clr Drug Dosing 141.1 ml/min Est GFR ( Amer) 135.4 ml/min Est GFR (Non-Af Amer) 116.8 ml/min BUN/Creatinine Ratio 4.8 L (10-20) Glucose 78 (70-99(Fasting)) mg/dl POC Glucose (other) (70-99) mg/dl Lactate 3.7 H* (0.4-2.0) mmol/L Calcium 8.2 L (8.6-10.3) mg/dl POC Ioniz Calcium Yany (1.12-1.32) mmol/l Phosphorus (2.5-4.9) mg/dl Magnesium 1.7 (1.7-2.4) mg/dl Iron 49 (35-150) mcg/dl TIBC 137 L (250-450) mcg/dl Unsaturated IBC 88 L (155-355) mcg/dl Transferrin % Sat 36 (15-50) % Ferritin 244.3 (8-388) ng/ml Total Bilirubin 0.9 (0.2-1.0) mg/dl Direct Bilirubin 0.4 H (0-0.2) mg/dl AST 55 H (13-39) U/L ALT 17 (7-52) U/L Alkaline Phosphatase 241 H (34-104) U/L Lactate Dehydrogenase (86-244) U/L Total Protein 6.4 (6.0-8.3) gm/dl Albumin 3.0 L (3.4-5.0) gm/dl Globulin (2.5-4.0) gm/dl Albumin/Globulin Ratio (0.9-2) Lipase (11-82) U/L Vitamin B12 262 (180-914) pg/ml Folate 9.27 (>5.38) ng/ml TSH (0.300-4.500) uIu/ml Free T4 (0.61-1.60) ng/dl Urine Color Urine Appearance (Clear) Urine pH (4.5-7.5) Ur Specific [place] (1.000-1.030) Urine Protein (Negative) Urine Glucose (UA) (Negative) Urine Ketones (Negative) Urine Blood (Negative) Urine Nitrite (Negative) Urine Bilirubin (Negative) Urine Urobilinogen (Negative) Ur Leukocyte Esterase (Negative) Urine WBC (Auto) (0-5) /hpf Urine RBC (Auto) (0-4) /hpf U Hyaline Cast (Auto) (0-5) /lpf U Epithel Cells (Auto) (0-5) /lpf Urine Bacteria (Auto) (Negative) Urine Trichomonas (None Prsent) Urine Yeast POC Ur Test (NEG) Stl C. diff Tox B Gene (Neg) Urine Opiates Screen (Neg) Ur Methadone, Qual (Neg) Urine Barbiturates (Neg) Ur Phencyclidine (PCP) (Neg) U Amphetamin/Meth Scrn (Neg) MDMA (Ecstasy) Screen (Neg) U Benzodiazepines Scrn (Neg) Ur Cocaine Metabolite (Neg) U Marijuana (THC) Screen (Neg) Ethyl Alcohol mg/dL (<10.0) mg/dl SARS-CoV-2, RNA, NAAT (NEGATIVE) Direct Antiglob Test (Negative) EROS (IgG-AHG) (Negative) EROS, Polyspecific (Negative) EROS C3b, C3d 5 Min (Negative) 05/17/23 05/17/23 05/17/23 Range/Units 06:16 10:50 11:33 WBC 20.81 H (4.8-10.8) K/ul RBC 2.72 L (4.20-5.40) M/uL Hgb 9.1 L (12.0-16.0) g/dl POC Hgb (12.0-16.0) g/dl Hct 27.7 L (37.0-47.0) % POC Hct (37-47) % MCV 101.8 H (80.0-100.0) fL MCH 33.5 (25.0-34.0) pg MCHC 32.9 (32.0-36.0) g/dL RDW Std Deviation 52.6 H (36.4-46.3) fL RDW Coeff of Carmen 14.2 (11.5-14.5) % Plt Count 515 H (130-400) K/uL MPV 9.1 L (9.4-12.4) fL Immature Gran % (Auto) 1.7 % Neut % (Auto) 68.3 % Lymph % (Auto) 17.2 % [place] % (Auto) 10.2 % Eos % (Auto) 1.7 % Baso % (Auto) 0.9 % Reticulocyte % (Auto) (0.5-2.0) % Neut # (Auto) 14.21 H (1.40-6.50) K/uL Lymph # (Auto) 3.58 H (1.2-3.4) K/uL [place] # (Auto) 2.12 H (0.11-0.59) K/uL Eos # (Auto) 0.36 (0-0.50) K/uL Baso # (Auto) 0.18 (0-0.2) K/uL Reticulocyte # (0.02-0.10) 10^6/uL Immature Gran # (Auto) 0.36 H (0.01-0.20) K/uL Absolute Nucleated RBC (0-0.12) K/uL Nucleated RBC % (auto) % Polychromasia Peripher Smr Path Cons VBG pH (7.36-7.41) POC Sodium (135-144) mmol/L Sodium (136-145) mmol/L POC Potassium (3.3-5.0) mmol/L Potassium (3.5-5.1) mmol/L POC Chloride (101-112) mmol/L Chloride (98-107) mmol/L Carbon Dioxide (21-32) mmol/L POC Total CO2 (24-31) mmol/L Anion Gap (3-11) POC Anion Gap (16-25) mmol/L POC BUN (7-18) mg/dl BUN (6-23) mg/dl Creatinine (0.6-1.2) mg/dl POC Creatinine (0.6-1.3) mg/dl Est Cr Clr Drug Dosing ml/min Est GFR ( Amer) ml/min Est GFR (Non-Af Amer) ml/min BUN/Creatinine Ratio (10-20) Glucose (70-99(Fasting)) mg/dl POC Glucose (other) (70-99) mg/dl Lactate 4.2 H* (0.4-2.0) mmol/L Calcium (8.6-10.3) mg/dl POC Ioniz Calcium Yany (1.12-1.32) mmol/l Phosphorus (2.5-4.9) mg/dl Magnesium (1.7-2.4) mg/dl Iron (35-150) mcg/dl TIBC (250-450) mcg/dl Unsaturated IBC (155-355) mcg/dl Transferrin % Sat (15-50) % Ferritin (8-388) ng/ml Total Bilirubin (0.2-1.0) mg/dl Direct Bilirubin (0-0.2) mg/dl AST (13-39) U/L ALT (7-52) U/L Alkaline Phosphatase (34-104) U/L Lactate Dehydrogenase (86-244) U/L Total Protein (6.0-8.3) gm/dl Albumin (3.4-5.0) gm/dl Globulin (2.5-4.0) gm/dl Albumin/Globulin Ratio (0.9-2) Lipase (11-82) U/L Vitamin B12 (180-914) pg/ml Folate (>5.38) ng/ml TSH (0.300-4.500) uIu/ml Free T4 (0.61-1.60) ng/dl Urine Color Urine Appearance (Clear) Urine pH (4.5-7.5) Ur Specific [place]ili (1.000-1.030) Urine Protein (Negative) Urine Glucose (UA) (Negative) Urine Ketones (Negative) Urine Blood (Negative) Urine Nitrite (Negative) Urine Bilirubin (Negative) Urine Urobilinogen (Negative) Ur Leukocyte Esterase (Negative) Urine WBC (Auto) (0-5) /hpf Urine RBC (Auto) (0-4) /hpf U Hyaline Cast (Auto) (0-5) /lpf U Epithel Cells (Auto) (0-5) /lpf Urine Bacteria (Auto) (Negative) Urine Trichomonas (None Prsent) Urine Yeast POC Ur Test (NEG) Stl C. diff Tox B Gene (Neg) Urine Opiates Screen Pos H (Neg) Ur Methadone, Qual Neg (Neg) Urine Barbiturates Neg (Neg) Ur Phencyclidine (PCP) Neg (Neg) U Amphetamin/Meth Scrn Neg (Neg) MDMA (Ecstasy) Screen Neg (Neg) U Benzodiazepines Scrn Neg (Neg) Ur Cocaine Metabolite Neg (Neg) U Marijuana (THC) Screen Pos H (Neg) Ethyl Alcohol mg/dL (<10.0) mg/dl SARS-CoV-2, RNA, NAAT (NEGATIVE) Direct Antiglob Test (Negative) EROS (IgG-AHG) (Negative) EROS, Polyspecific (Negative) EROS C3b, C3d 5 Min (Negative) 12/31/22 12/31/22 01/01/23 Range/Units 13:13 17:25 08:19 WBC 17.00 H (4.8-10.8) K/ul RBC 2.65 L (4.20-5.40) M/uL Hgb 8.8 L (12.0-16.0) g/dl POC Hgb (12.0-16.0) g/dl Hct 28.1 L (37.0-47.0) % POC Hct (37-47) % MCV 106.0 H (80.0-100.0) fL MCH 33.2 (25.0-34.0) pg MCHC 31.3 L (32.0-36.0) g/dL RDW Std Deviation 56.6 H (36.4-46.3) fL RDW Coeff of Carmen 14.4 (11.5-14.5) % Plt Count 481 H (130-400) K/uL MPV 9.3 L (9.4-12.4) fL Immature Gran % (Auto) 1.1 % Neut % (Auto) 65.9 % Lymph % (Auto) 21.0 % [place] % (Auto) 8.9 % Eos % (Auto) 2.3 % Baso % (Auto) 0.8 % Reticulocyte % (Auto) (0.5-2.0) % Neut # (Auto) 11.21 H (1.40-6.50) K/uL Lymph # (Auto) 3.57 H (1.2-3.4) K/uL [place] # (Auto) 1.52 H (0.11-0.59) K/uL Eos # (Auto) 0.39 (0-0.50) K/uL Baso # (Auto) 0.13 (0-0.2) K/uL Reticulocyte # (0.02-0.10) 10^6/uL Immature Gran # (Auto) 0.18 (0.01-0.20) K/uL Absolute Nucleated RBC (0-0.12) K/uL Nucleated RBC % (auto) % Polychromasia Peripher Smr Path Cons VBG pH (7.36-7.41) POC Sodium (135-144) mmol/L Sodium (136-145) mmol/L POC Potassium (3.3-5.0) mmol/L Potassium (3.5-5.1) mmol/L POC Chloride (101-112) mmol/L Chloride (98-107) mmol/L Carbon Dioxide (21-32) mmol/L POC Total CO2 (24-31) mmol/L Anion Gap (3-11) POC Anion Gap (16-25) mmol/L POC BUN (7-18) mg/dl BUN (6-23) mg/dl Creatinine (0.6-1.2) mg/dl POC Creatinine (0.6-1.3) mg/dl Est Cr Clr Drug Dosing ml/min Est GFR ( Amer) ml/min Est GFR (Non-Af Amer) ml/min BUN/Creatinine Ratio (10-20) Glucose (70-99(Fasting)) mg/dl POC Glucose (other) (70-99) mg/dl Lactate 3.9 H* (0.4-2.0) mmol/L Calcium (8.6-10.3) mg/dl POC Ioniz Calcium [place] (1.12-1.32) mmol/l Phosphorus (2.5-4.9) mg/dl Magnesium (1.7-2.4) mg/dl Iron (35-150) mcg/dl TIBC (250-450) mcg/dl Unsaturated IBC (155-355) mcg/dl Transferrin % Sat (15-50) % Ferritin (8-388) ng/ml Total Bilirubin (0.2-1.0) mg/dl Direct Bilirubin (0-0.2) mg/dl AST (13-39) U/L ALT (7-52) U/L Alkaline Phosphatase (34-104) U/L Lactate Dehydrogenase (86-244) U/L Total Protein (6.0-8.3) gm/dl Albumin (3.4-5.0) gm/dl Globulin (2.5-4.0) gm/dl Albumin/Globulin Ratio (0.9-2) Lipase (11-82) U/L Vitamin B12 (180-914) pg/ml Folate (>5.38) ng/ml TSH (0.300-4.500) uIu/ml Free T4 (0.61-1.60) ng/dl Urine Color Urine Appearance (Clear) Urine pH (4.5-7.5) Ur Specific [place] (1.000-1.030) Urine Protein (Negative) Urine Glucose (UA) (Negative) Urine Ketones (Negative) Urine Blood (Negative) Urine Nitrite (Negative) Urine Bilirubin (Negative) Urine Urobilinogen (Negative) Ur Leukocyte Esterase (Negative) Urine WBC (Auto) (0-5) /hpf Urine RBC (Auto) (0-4) /hpf U Hyaline Cast (Auto) (0-5) /lpf U Epithel Cells (Auto) (0-5) /lpf Urine Bacteria (Auto) (Negative) Urine Trichomonas (None Prsent) Urine Yeast POC Ur Test (NEG) Stl C. diff Tox B Gene Negative Cdiff Gene (Neg) Urine Opiates Screen (Neg) Ur Methadone, Qual (Neg) Urine Barbiturates (Neg) Ur Phencyclidine (PCP) (Neg) U Amphetamin/Meth Scrn (Neg) MDMA (Ecstasy) Screen (Neg) U Benzodiazepines Scrn (Neg) Ur Cocaine Metabolite (Neg) U Marijuana (THC) Screen (Neg) Ethyl Alcohol mg/dL (<10.0) mg/dl SARS-CoV-2, RNA, NAAT (NEGATIVE) Direct Antiglob Test (Negative) EROS (IgG-AHG) (Negative) EROS, Polyspecific (Negative) EROS C3b, C3d 5 Min (Negative) 01/01/23 01/01/23 01/01/23 Range/Units 08:19 08:19 08:19 WBC (4.8-10.8) K/ul RBC (4.20-5.40) M/uL Hgb (12.0-16.0) g/dl POC Hgb (12.0-16.0) g/dl Hct (37.0-47.0) % POC Hct (37-47) % MCV (80.0-100.0) fL MCH (25.0-34.0) pg MCHC (32.0-36.0) g/dL RDW Std Deviation (36.4-46.3) fL RDW Coeff of Carmen (11.5-14.5) % Plt Count (130-400) K/uL MPV (9.4-12.4) fL Immature Gran % (Auto) % Neut % (Auto) % Lymph % (Auto) % [place] % (Auto) % Eos % (Auto) % Baso % (Auto) % Reticulocyte % (Auto) (0.5-2.0) % Neut # (Auto) (1.40-6.50) K/uL Lymph # (Auto) (1.2-3.4) K/uL [place] # (Auto) (0.11-0.59) K/uL Eos # (Auto) (0-0.50) K/uL Baso # (Auto) (0-0.2) K/uL Reticulocyte # (0.02-0.10) 10^6/uL Immature Gran # (Auto) (0.01-0.20) K/uL Absolute Nucleated RBC (0-0.12) K/uL Nucleated RBC % (auto) % Polychromasia Peripher Smr Path Cons VBG pH 7.34 L (7.36-7.41) POC Sodium (135-144) mmol/L Sodium 141 (136-145) mmol/L POC Potassium (3.3-5.0) mmol/L Potassium 3.1 L (3.5-5.1) mmol/L POC Chloride (101-112) mmol/L Chloride 114 H (98-107) mmol/L Carbon Dioxide 20 L (21-32) mmol/L POC Total CO2 (24-31) mmol/L Anion Gap 7 (3-11) POC Anion Gap (16-25) mmol/L POC BUN (7-18) mg/dl BUN 2 L (6-23) mg/dl Creatinine 0.65 (0.6-1.2) mg/dl POC Creatinine (0.6-1.3) mg/dl Est Cr Clr Drug Dosing 139.1 ml/min Est GFR ( Amer) 133.3 ml/min Est GFR (Non-Af Amer) 115.0 ml/min BUN/Creatinine Ratio 3.1 L (10-20) Glucose 83 (70-99(Fasting)) mg/dl POC Glucose (other) (70-99) mg/dl Lactate 2.8 H* (0.4-2.0) mmol/L Calcium 7.9 L (8.6-10.3) mg/dl POC Ioniz Calcium Yany (1.12-1.32) mmol/l Phosphorus 2.4 L (2.5-4.9) mg/dl Magnesium 1.7 (1.7-2.4) mg/dl Iron (35-150) mcg/dl TIBC (250-450) mcg/dl Unsaturated IBC (155-355) mcg/dl Transferrin % Sat (15-50) % Ferritin (8-388) ng/ml Total Bilirubin 0.8 (0.2-1.0) mg/dl Direct Bilirubin (0-0.2) mg/dl AST 49 H (13-39) U/L ALT 16 (7-52) U/L Alkaline Phosphatase 238 H (34-104) U/L Lactate Dehydrogenase (86-244) U/L Total Protein 6.1 (6.0-8.3) gm/dl Albumin 2.8 L (3.4-5.0) gm/dl Globulin 3.3 (2.5-4.0) gm/dl Albumin/Globulin Ratio 0.8 L (0.9-2) Lipase (11-82) U/L Vitamin B12 (180-914) pg/ml Folate (>5.38) ng/ml TSH (0.300-4.500) uIu/ml Free T4 (0.61-1.60) ng/dl Urine Color Urine Appearance (Clear) Urine pH (4.5-7.5) Ur Specific [place] (1.000-1.030) Urine Protein (Negative) Urine Glucose (UA) (Negative) Urine Ketones (Negative) Urine Blood (Negative) Urine Nitrite (Negative) Urine Bilirubin (Negative) Urine Urobilinogen (Negative) Ur Leukocyte Esterase (Negative) Urine WBC (Auto) (0-5) /hpf Urine RBC (Auto) (0-4) /hpf U Hyaline Cast (Auto) (0-5) /lpf U Epithel Cells (Auto) (0-5) /lpf Urine Bacteria (Auto) (Negative) Urine Trichomonas (None Prsent) Urine Yeast POC Ur Test (NEG) Stl C. diff Tox B Gene (Neg) Urine Opiates Screen (Neg) Ur Methadone, Qual (Neg) Urine Barbiturates (Neg) Ur Phencyclidine (PCP) (Neg) U Amphetamin/Meth Scrn (Neg) MDMA (Ecstasy) Screen (Neg) U Benzodiazepines Scrn (Neg) Ur Cocaine Metabolite (Neg) U Marijuana (THC) Screen (Neg) Ethyl Alcohol mg/dL (<10.0) mg/dl SARS-CoV-2, RNA, NAAT (NEGATIVE) Direct Antiglob Test (Negative) EROS (IgG-AHG) (Negative) EROS, Polyspecific (Negative) EROS C3b, C3d 5 Min (Negative) 01/01/23 01/01/23 01/01/23 Range/Units 10:22 11:03 11:03 WBC (4.8-10.8) K/ul RBC (4.20-5.40) M/uL Hgb (12.0-16.0) g/dl POC Hgb (12.0-16.0) g/dl Hct (37.0-47.0) % POC Hct (37-47) % MCV (80.0-100.0) fL MCH (25.0-34.0) pg MCHC (32.0-36.0) g/dL RDW Std Deviation (36.4-46.3) fL RDW Coeff of Carmen (11.5-14.5) % Plt Count (130-400) K/uL MPV (9.4-12.4) fL Immature Gran % (Auto) % Neut % (Auto) % Lymph % (Auto) % [place] % (Auto) % Eos % (Auto) % Baso % (Auto) % Reticulocyte % (Auto) 3.6 H (0.5-2.0) % Neut # (Auto) (1.40-6.50) K/uL Lymph # (Auto) (1.2-3.4) K/uL [place] # (Auto) (0.11-0.59) K/uL Eos # (Auto) (0-0.50) K/uL Baso # (Auto) (0-0.2) K/uL Reticulocyte # 0.10 (0.02-0.10) 10^6/uL Immature Gran # (Auto) (0.01-0.20) K/uL Absolute Nucleated RBC (0-0.12) K/uL Nucleated RBC % (auto) % Polychromasia Peripher Smr Path Cons VBG pH (7.36-7.41) POC Sodium (135-144) mmol/L Sodium (136-145) mmol/L POC Potassium (3.3-5.0) mmol/L Potassium (3.5-5.1) mmol/L POC Chloride (101-112) mmol/L Chloride (98-107) mmol/L Carbon Dioxide (21-32) mmol/L POC Total CO2 (24-31) mmol/L Anion Gap (3-11) POC Anion Gap (16-25) mmol/L POC BUN (7-18) mg/dl BUN (6-23) mg/dl Creatinine (0.6-1.2) mg/dl POC Creatinine (0.6-1.3) mg/dl Est Cr Clr Drug Dosing ml/min Est GFR ( Amer) ml/min Est GFR (Non-Af Amer) ml/min BUN/Creatinine Ratio (10-20) Glucose (70-99(Fasting)) mg/dl POC Glucose (other) (70-99) mg/dl Lactate 3.0 H* (0.4-2.0) mmol/L Calcium (8.6-10.3) mg/dl POC Ioniz Calcium Yany (1.12-1.32) mmol/l Phosphorus (2.5-4.9) mg/dl Magnesium (1.7-2.4) mg/dl Iron (35-150) mcg/dl TIBC (250-450) mcg/dl Unsaturated IBC (155-355) mcg/dl Transferrin % Sat (15-50) % Ferritin (8-388) ng/ml Total Bilirubin (0.2-1.0) mg/dl Direct Bilirubin (0-0.2) mg/dl AST (13-39) U/L ALT (7-52) U/L Alkaline Phosphatase (34-104) U/L Lactate Dehydrogenase (86-244) U/L Total Protein (6.0-8.3) gm/dl Albumin (3.4-5.0) gm/dl Globulin (2.5-4.0) gm/dl Albumin/Globulin Ratio (0.9-2) Lipase (11-82) U/L Vitamin B12 (180-914) pg/ml Folate (>5.38) ng/ml TSH (0.300-4.500) uIu/ml Free T4 (0.61-1.60) ng/dl Urine Color Urine Appearance (Clear) Urine pH (4.5-7.5) Ur Specific [place] (1.000-1.030) Urine Protein (Negative) Urine Glucose (UA) (Negative) Urine Ketones (Negative) Urine Blood (Negative) Urine Nitrite (Negative) Urine Bilirubin (Negative) Urine Urobilinogen (Negative) Ur Leukocyte Esterase (Negative) Urine WBC (Auto) (0-5) /hpf Urine RBC (Auto) (0-4) /hpf U Hyaline Cast (Auto) (0-5) /lpf U Epithel Cells (Auto) (0-5) /lpf Urine Bacteria (Auto) (Negative) Urine Trichomonas (None Prsent) Urine Yeast POC Ur Test (NEG) Stl C. diff Tox B Gene (Neg) Urine Opiates Screen (Neg) Ur Methadone, Qual (Neg) Urine Barbiturates (Neg) Ur Phencyclidine (PCP) (Neg) U Amphetamin/Meth Scrn (Neg) MDMA (Ecstasy) Screen (Neg) U Benzodiazepines Scrn (Neg) Ur Cocaine Metabolite (Neg) U Marijuana (THC) Screen (Neg) Ethyl Alcohol mg/dL (<10.0) mg/dl SARS-CoV-2, RNA, NAAT (NEGATIVE) Direct Antiglob Test Negative (Negative) EROS (IgG-AHG) Neg (Negative) EROS, Polyspecific Neg (Negative) EROS C3b, C3d 5 Min Neg (Negative) 01/01/23 01/01/23 Range/Units 11:03 11:03 WBC (4.8-10.8) K/ul RBC (4.20-5.40) M/uL Hgb (12.0-16.0) g/dl POC Hgb (12.0-16.0) g/dl Hct (37.0-47.0) % POC Hct (37-47) % MCV (80.0-100.0) fL MCH (25.0-34.0) pg MCHC (32.0-36.0) g/dL RDW Std Deviation (36.4-46.3) fL RDW Coeff of Carmen (11.5-14.5) % Plt Count (130-400) K/uL MPV (9.4-12.4) fL Immature Gran % (Auto) % Neut % (Auto) % Lymph % (Auto) % [place] % (Auto) % Eos % (Auto) % Baso % (Auto) % Reticulocyte % (Auto) (0.5-2.0) % Neut # (Auto) (1.40-6.50) K/uL Lymph # (Auto) (1.2-3.4) K/uL [place] # (Auto) (0.11-0.59) K/uL Eos # (Auto) (0-0.50) K/uL Baso # (Auto) (0-0.2) K/uL Reticulocyte # (0.02-0.10) 10^6/uL Immature Gran # (Auto) (0.01-0.20) K/uL Absolute Nucleated RBC (0-0.12) K/uL Nucleated RBC % (auto) % Polychromasia Peripher Smr Path Cons VBG pH (7.36-7.41) POC Sodium (135-144) mmol/L Sodium (136-145) mmol/L POC Potassium (3.3-5.0) mmol/L Potassium (3.5-5.1) mmol/L POC Chloride (101-112) mmol/L Chloride (98-107) mmol/L Carbon Dioxide (21-32) mmol/L POC Total CO2 (24-31) mmol/L Anion Gap (3-11) POC Anion Gap (16-25) mmol/L POC BUN (7-18) mg/dl BUN (6-23) mg/dl Creatinine (0.6-1.2) mg/dl POC Creatinine (0.6-1.3) mg/dl Est Cr Clr Drug Dosing ml/min Est GFR ( Amer) ml/min Est GFR (Non-Af Amer) ml/min BUN/Creatinine Ratio (10-20) Glucose (70-99(Fasting)) mg/dl POC Glucose (other) (70-99) mg/dl Lactate (0.4-2.0) mmol/L Calcium (8.6-10.3) mg/dl POC Ioniz Calcium Yany (1.12-1.32) mmol/l Phosphorus (2.5-4.9) mg/dl Magnesium (1.7-2.4) mg/dl Iron (35-150) mcg/dl TIBC (250-450) mcg/dl Unsaturated IBC (155-355) mcg/dl Transferrin % Sat (15-50) % Ferritin (8-388) ng/ml Total Bilirubin (0.2-1.0) mg/dl Direct Bilirubin (0-0.2) mg/dl AST (13-39) U/L ALT (7-52) U/L Alkaline Phosphatase (34-104) U/L Lactate Dehydrogenase 125 (86-244) U/L Total Protein (6.0-8.3) gm/dl Albumin (3.4-5.0) gm/dl Globulin (2.5-4.0) gm/dl Albumin/Globulin Ratio (0.9-2) Lipase (11-82) U/L Vitamin B12 (180-914) pg/ml Folate (>5.38) ng/ml TSH 9.484 H (0.300-4.500) uIu/ml Free T4 1.24 (0.61-1.60) ng/dl Urine Color Urine Appearance (Clear) Urine pH (4.5-7.5) Ur Specific [place] (1.000-1.030) Urine Protein (Negative) Urine Glucose (UA) (Negative) Urine Ketones (Negative) Urine Blood (Negative) Urine Nitrite (Negative) Urine Bilirubin (Negative) Urine Urobilinogen (Negative) Ur Leukocyte Esterase (Negative) Urine WBC (Auto) (0-5) /hpf Urine RBC (Auto) (0-4) /hpf U Hyaline Cast (Auto) (0-5) /lpf U Epithel Cells (Auto) (0-5) /lpf Urine Bacteria (Auto) (Negative) Urine Trichomonas (None Prsent) Urine Yeast POC Ur Test (NEG) Stl C. diff Tox B Gene (Neg) Urine Opiates Screen (Neg) Ur Methadone, Qual (Neg) Urine Barbiturates (Neg) Ur Phencyclidine (PCP) (Neg) U Amphetamin/Meth Scrn (Neg) MDMA (Ecstasy) Screen (Neg) U Benzodiazepines Scrn (Neg) Ur Cocaine Metabolite (Neg) U Marijuana (THC) Screen (Neg) Ethyl Alcohol mg/dL (<10.0) mg/dl SARS-CoV-2, RNA, NAAT (NEGATIVE) Direct Antiglob Test (Negative) EROS (IgG-AHG) (Negative) EROS, Polyspecific (Negative) EROS C3b, C3d 5 Min (Negative) Diagnostic Findings KUB CLINICAL HISTORY: worsening abdominal distension and pain COMPARISON STUDY: CT of the abdomen and pelvis December 30, 2022. FINDINGS: There is no evidence for a bowel obstruction. Right upper quadrant density is due to hepatomegaly, as shown on CT of December 30, 2022. There are cholecystectomy clips. IMPRESSION: 1. No evidence for a bowel obstruction. 2. Hepatomegaly, better depicted on recent abdominal CT. ACT 112: Negative or not required by law. Electronically signed by: Mo Alston M.D. 01/01/2023 5:[address] SCAN OF THE ABDOMEN AND PELVIS WITH IV CONTRAST CLINICAL HISTORY: Epigastric abdominal pain. COMPARISON STUDY: Abdominal CT dated 09/17/2022. TECHNIQUE: Following the IV administration of 89 cc of Optiray 320, CT scan of the abdomen and pelvis is performed from the lung bases to the proximal femora. Images are reviewed in the axial, sagittal, and coronal planes. IV contrast was administered without complication. A dose lowering technique was utilized adhering to the principles of ALARA. CT DOSE: 1130.11 mGy.cm FINDINGS: Lung bases: The heart is enlarged and without pericardial effusion. The lung bases are clear. There is a small hiatal hernia. Liver: The contrast-enhanced liver is markedly enlarged, measuring 35.2 cm in length. The liver demonstrates diffusely diminished attenuation indicating steatosis.. There is no intrahepatic biliary ductal dilatation. The hepatic veins and portal veins are patent. Gallbladder: Surgically absent noting clips in the gallbladder fossa. Spleen: The spleen is enlarged, measuring 18.1 cm in length. Pancreas: Unremarkable. Adrenal glands: Unremarkable. Kidneys: The contrast enhanced kidneys are normal in size and without hydronephrosis. The kidneys enhance symmetrically. A 1.7 cm complex cystic lesion of the right kidney seen previously is less apparent on today's examination. This is best seen on axial image #51 of 103. Abdominal vasculature: The abdominal aorta is normal in course and caliber. Bowel: There are scattered colonic diverticula without CT evidence of acute diverticulitis. No bowel obstruction is seen. The appendix is not identified and reported surgically absent. Peritoneum: There is no intraperitoneal free air or abdominal ascites. There is a fat-containing umbilical hernia. Lymphadenopathy: None. Pelvic viscera: The bladder, uterus, and adnexa are normal as visualized noting bilateral ovarian follicles. Skeletal structures: No lytic or blastic lesions are seen. IMPRESSION: 1. No acute infectious or inflammatory findings are identified in the abdomen or pelvis. 2. Marked hepatosplenomegaly with evidence of hepatic steatosis. 3. Cardiomegaly. 4. The complex right renal lesion seen previously is much less apparent than on the prior examination. This remains indeterminant. 5. Additional findings as above. ACT 112: Negative or not required by law. Electronically signed by: Rakesh Sarabia M.D. 12/30/2022 6:52 PM (1) Abdominal pain Abdominal location: unspecified location Qualified Code(s): R10.9 - Unspecified abdominal pain
[2023-01-01 18:23] LABS: Basophils # (auto) 0.09 K/uL (0-0.2); Basophils % (auto) 0.7 %; Eosinophils # (auto) 0.27 K/uL (0-0.50); Hematocrit (blood only) 35.6 % (37.0-47.0); Hemoglobin 11.4 g/dl (12.0-16.0); Immature Granulocytes # (auto) 0.15 K/uL (0.01-0.20); Immature Granulocytes % (auto) 1.1 %; Lymphocytes # (auto) 2.29 K/uL (1.2-3.4); Lymphocytes % (auto) 16.8 %; Mean Corpuscular Hemoglobin 33.3 pg (25.0-34.0); Mean Corpuscular Volume 104.1 fL (80.0-100.0); Mean Platelet Volume 9.2 fL (9.4-12.4); Monocytes # (auto) 1.19 K/uL (0.11-0.59); Monocytes % (auto) 8.7 %; Neutrophils # (auto) 9.67 K/uL (1.40-6.50); Neutrophils % (auto) 70.7 %; Platelet Count 402 K/uL (130-400); RDW Coefficient of Variation 14.3 % (11.5-14.5); RDW Standard Deviation 54.6 fL (36.4-46.3); Red Blood Count 3.42 M/uL (4.20-5.40); White Blood Count 13.66 K/ul (4.8-10.8)
[2023-01-01] MEDS: LACTATED RINGER'S 1,000 ML IV SCH (18:23)
[2023-01-01] MEDS: metroNIDAZOLE 500 MG/100 ML BAG IV SCH (18:25)
[2023-01-01 18:40] LABS: Albumin Level 2.9 gm/dl (3.4-5.0); BUN Creatinine Ratio 3.9 (10-20); Bilirubin Direct 0.4 mg/dl (0-0.2); Calcium 7.7 mg/dl (8.6-10.3); Creatinine Clr Calc Pharmacy 177.3 ml/min; Est GFR (African American) 144.4 ml/min; Est GFR (Non-African American) 124.6 ml/min; Magnesium 2.2 mg/dl (1.7-2.4); Potassium 3.8 mmol/L (3.5-5.1); Total Protein 6.4 gm/dl (6.0-8.3)
[2023-01-01 18:54] LABS: Troponin I High Sensitivity 7.3 pg/ml (0-14)
[2023-01-01 19:51] LABS: Appearance Urine Clear (Clear); Bacteria Urine Automated Negative (Negative); Bilirubin Urine Negative (Negative); Blood Urine Negative (Negative); Cast Urine Automated 0 /lpf (0-5); Color Urine Yellow; Epithelial Cell Urine Auto >30 /lpf (0-5); Glucose Urine UA Negative (Negative); Ketones Urine Negative (Negative); Leukocyte Esterase Urine Trace (Negative); Nitrite Urine Negative (Negative); Protein Urine Negative (Negative); RBC Urine Automated 0-4 /hpf (0-4); Specific Gravity Urine 1.006 (1.000-1.030); Urobilinogen Urine Negative (Negative); pH Urine 6.5 (4.5-7.5)
[2023-01-01] MEDS ORDERED: OPTIRAY 320 500ml IV ONE (20:36)
[2023-01-01] MEDS: CIPROFLOXACIN / D5W 400 MG/200 ML BAG IV SCH (20:44)
--- NOTE | 2023-01-01 21:46 | CT Scan Report ---
Exam(s): CT CHEST Without Contrast EXAM: CT Chest Without Intravenous Contrast CLINICAL HISTORY: Reason for exam: weight loss, smoker. TECHNIQUE: Axial computed tomography images of the chest without intravenous contrast. Automated exposure control was utilized for the study. A dose lowering technique was utilized adhering to the principles of ALARA. COMPARISON: No relevant prior studies available. FINDINGS: Lungs: Unremarkable. No mass. No consolidation. Pleural space: Unremarkable. No pneumothorax. No significant effusion. Heart: Unremarkable. No cardiomegaly. No significant pericardial effusion. No significant coronary artery calcifications. Bones/joints: Unremarkable. No acute fracture. No dislocation. Soft tissues: Unremarkable. Vasculature: Unremarkable. No thoracic aortic aneurysm. Lymph nodes: Unremarkable. No adenopathy. IMPRESSION: No acute or significant findings. Electronically signed by: Gabe Plascencia M.D. 01/01/23 21:45 PM
--- NOTE | 2023-01-01 21:48 | CT Scan Report ---
Exam(s): CTA ABDOMEN + PELVIS With Contrast IV Amt: 112ml Optiray 320 EXAM: CT Angiography Abdomen and Pelvis With Intravenous Contrast CLINICAL HISTORY: Reason for exam: worsening abdominal exam, r/o mesen ischemia. TECHNIQUE: Axial computed tomographic angiography images of the abdomen and pelvis with intravenous contrast. Automated exposure control was utilized for the study. A dose lowering technique was utilized adhering to the principles of ALARA. MIP reconstructed images were created and reviewed. CONTRAST: Patient received 112ml Optiray 320 of IV contrast COMPARISON: No relevant prior studies available. FINDINGS: Lung bases are clear. There is no aortic aneurysm, dissection, or stenosis. Celiac artery and its branches are adequately patent. SMA is adequately patent. Single bilateral renal arteries are adequately patent. MARI is adequately patent. Bilateral common, external, and internal iliac arteries are adequately patent. There is no adenopathy. There is mild pelvic ascites. There is no free air. There is severe hepatomegaly. Right hepatic lobe measures 36 cm in the midclavicular line. Diffuse and heterogeneous fatty infiltration is present. Gallbladder is surgically absent. There is no biliary dilatation. Spleen, pancreas, adrenal glands, and kidneys are within normal limits. Appendix is surgically absent. There is no bowel obstruction or inflammatory change. There is distal colonic diverticulosis without diverticulitis. Uterus and urinary bladder are unremarkable. Skeleton is intact. IMPRESSION: 1. Aorta and its branch vessels are adequately patent. 2. Severe hepatomegaly and steatosis. Electronically signed by: Gabe Plascencia M.D. 01/01/23 21:47 PM
[2023-01-01 23:34] LABS: Adenovirus F 40/41 PCR Not Detected (NotDetected); Astrovirus PCR Not Detected (NotDetected); Campylobacter PCR Not Detected (NotDetected); Cryptosporidium PCR Not Detected (NotDetected); Cyclospora cayetanensis PCR Not Detected (NotDetected); Entamoeba histolytica PCR Not Detected (NotDetected); Enteroaggregative E.coli(EAEC) Not Detected (NotDetected); Enteropathogenic E.coli (EPEC) Not Detected (NotDetected); Enterotoxigenic E.coli (ETEC) Not Detected (NotDetected); Giardia lamblia PCR Not Detected (NotDetected); Norovirus GI/GII PCR Not Detected (NotDetected); Plesiomonas shigelloides PCR Not Detected (NotDetected); Rotavirus A PCR Not Detected (NotDetected); Salmonella PCR Not Detected (NotDetected); Sapovirus PCR Not Detected (NotDetected); Shiga-like Toxin E.coli (STEC) Not Detected (NotDetected); Shigella/Enteroinvasive E.coli Not Detected (NotDetected); Vibrio cholerae PCR Not Detected (NotDetected); Vibrio species PCR Not Detected (NotDetected); Yersinia enterocolitica PCR Not Detected (NotDetected)
[2023-01-02] MEDS ORDERED: ONDANSETRON INJ 2 MG/ML 2 ML VIAL IV STA (00:16)
[2023-01-02] MEDS: metroNIDAZOLE 500 MG/100 ML BAG IV SCH ×3 (00:32→16:28)
[2023-01-02] MEDS: HYDROmorphone INJ 0.5 MG/0.5 ML SYR IV PRN ×7 (00:32→21:50)
[2023-01-02] MEDS ORDERED: GABAPENTIN 600 MG TAB PO SCH (02:00)
[2023-01-02] MEDS: LACTATED RINGER'S 1,000 ML IV SCH (04:58)
[2023-01-02] MEDS: CIPROFLOXACIN / D5W 400 MG/200 ML BAG IV SCH ×2 (05:27→16:28)
[2023-01-02 07:55] LABS: Hematocrit (blood only) 27.6 % (37.0-47.0); Hemoglobin 8.6 g/dl (12.0-16.0); Mean Corpuscular Hemoglobin 32.8 pg (25.0-34.0); Mean Corpuscular Hgb Conc 31.2 g/dL (32.0-36.0); Mean Corpuscular Volume 105.3 fL (80.0-100.0); Mean Platelet Volume 9.4 fL (9.4-12.4); Platelet Count 472 K/uL (130-400); RDW Coefficient of Variation 14.3 % (11.5-14.5); RDW Standard Deviation 55.5 fL (36.4-46.3); Red Blood Count 2.62 M/uL (4.20-5.40); White Blood Count 17.04 K/ul (4.8-10.8)
[2023-01-02 08:12] LABS: BUN Creatinine Ratio 3.6 (10-20); Creatinine Clr Calc Pharmacy 163.7 ml/min; Est GFR (African American) 140.8 ml/min; Est GFR (Non-African American) 121.5 ml/min; Potassium 3.5 mmol/L (3.5-5.1)
[2023-01-02] MEDS: ENOXAPARIN INJ 40 MG/0.4 ML SYR SQ SCH (08:34)
--- NOTE | 2023-01-02 08:39 | Gastroenterology Progress Note ---
Date of Service January 02, 2023 Assessment & Plan (1) Abdominal pain: Plan: 37 year old female with history of migraines, anxiety, PTSD, bipolar, HTN, obesity, increased alcohol intake last use 4 mixed drinks on 12/30/22, daily CBD/THC gummy last use 2 gummies 12/29/22 who was admitted through the ED w/ abd pain, nausea/vomiting no acute findings on labs/imaging. GI was asked to evaluate given persistent abdominal pain, repeat imaging all showing severe hepatic steatosis w/ hepatomegaly and s/p CCY but no acute etiology identified. Will discuss EGD/EUS +/- ERCP with attending NPO ETOH cessation discussed THC/CBD gummy cessation discussed OP arrange gastric emptying scan Scheduled Questran once daily Scheduled Bentyl 10 mg three times daily We appreciate assistance in the management of any serological abnormality and corrections to include: hemoglobin >7, INR <2, platelets >50,000, potassium levels >3.5 but <5.3, and sodium levels within 5 points of the reference range prior to endoscopic evaluation. Thank you for allowing us to participate in the care of this patient. Please call with any acute changes, questions or concerns. Please see addendum below with additional recommendation from my supervising physician. Admission and Anticipated Discharge Date Admission Date: December 30, 2022 Supervising Physician Co-Signing Physician Notes I saw and evaluated the patient. We are asked to see the patient again due to persistent abdominal pain with a slight elevation of her alkaline phosphatase. The patient does have a known history of alcohol abuse in addition to cannabis abuse. Given the refractory symptoms we can certainly provide further evaluation with upper endoscopy endoscopic ultrasound, if positive for choledocholithiasis and ERCP can then be performed. We did discuss risks of the procedures with the patient to include bleeding infection perforation pain pancreatitis and need for follow-up studies. [facility] asked to re-evaluate. Pt was seen and evaluated, chart reviewed. Notes she has had persistent upper abd pain. There has been some nausea. No vomiting in 2 days. She has had persistent loose stools. This has been brown mixed with bright red blood. The blood is in the toilet, on tissue and is mixed with stool. She notes she frequently has rectal bleeding from her hemorrhoids. No dysphagia. Regarding her recent endoscopy, she is to have a five year recall colonoscopy for adenomatous polyps. Otherwise EGD/Colonoscopy biopsies are negative. She was recently evaluated by hepatology as an outpatient for her chronically stable LFTs. Was told this was related to her ETOH use and severe fatty liver. CT chest 2022: No acute or significant findings. CTA Abdomen 3: Aorta and its branch vessels are adequately patent. Severe hepatomegaly and steatosis. Chest Xr 3: No acute cardiopulmonary findings. KUB 2022: No evidence for a bowel obstruction. Hepatomegaly, better depicted on recent abdominal CT. CTAP 2022: No acute infectious or inflammatory findings are identified in the abdomen or pelvis. Marked hepatosplenomegaly with evidence of hepatic steatosis. Cardiomegaly.The complex right renal lesion seen previously is much less apparent than on the prior examination. This remains indeterminant. Additional findings as above MRCP 2022: Cholecystectomy with likely postsurgical biliary ductal dilation. No choledocholithiasis identified. Hepatomegaly with hepatic steatosis. CTAP 2022: No acute intra-abdominal or intrapelvic abnormality identified. No bowel obstruction or bowel wall thickening. Appendectomy and cholecystectomy.Hepatomegaly with hepatic steatosis.Complex 2 cm lesion of the right kidney is stable compared to the 2019 exam. This may represent a complex cyst, however could be correlated with a nonemergent follow-up ultrasound. ABD US 2022: Hepatomegaly with hepatic steatosis.Cholecystectomy. 2.0 cm mildly complex cyst of the right kidney. CTAP 2022: No acute intra-abdominal or intrapelvic abnormality identified.No bowel obstruction or bowel wall thickening.Appendectomy and cholecystectomy.Hepatomegaly with hepatic steatosis. Complex 2 cm lesion of the right kidney is stable compared to the 2020 exam. This may represent a complex cyst, however could be correlated with a nonemergent follow-up ultrasound. Endoscopy biopsy 2022: A. Duodenum (biopsy):Multiple benign strips of small bowel mucosa with no pathologic diagnoses are seen.Villous architecture is maintained.The clinical history of chronic diarrhea and abdominal pain is noted.B. Stomach (biopsy):Multiple benign strips of gastric mucosa with no pathologic diagnoses are seen. C. Cecum and ascending colon (polypectomies 2): Two tubular adenomas are seen. Colon, "random colon biopsy" (biopsy): Multiple benign strips of colonic mucosa with no pathologic diagnoses are seen. EGD 2022: - Z-line regular, 36 cm from the incisors. - LA Grade A esophagitis with no bleeding. - Concern for portal hypertensive gastropathy on exam. - Normal duodenal bulb and second portion of the duodenum. Biopsied. - Biopsies were taken with a cold forceps for Helicobacter pylori testing. Colonoscopy 2022: - Preparation of the colon was fair. - Hemorrhoids found on perianal exam. - Diverticulosis in the entire examined colon. - One 4 mm polyp in the cecum, removed with a cold snare. Resected and retrieved. - One 2 mm polyp in the ascending colon, removed with a cold biopsy forceps. Resected and retrieved. - Biopsies obtained for microscopic colitis Review of Systems Review of Systems: All systems reviewed & are unremarkable except as noted in HPI & below Physical Exam Constitutional: WD/WN, vitals as above Respiratory: normal respiratory effort, lungs clear to auscultation Gastrointestinal (Abdomen): normal bowel sounds, soft, nontender, no hepatosplenomegaly Skin: no rashes, warm and dry Results & Data Vital Signs (Past 12 Hours) Vital Signs Temp Pulse Pulse Resp BP BP Pulse Ox 01/02/23 08:01 37.0 C 146 H 20 112/78 96 01/02/23 05:33 120/78 01/02/23 03:00 37.2 C 92 H 18 98/63 L 95 01/02/23 00:44 113 H 01/01/23 23:09 37.1 C 99 H 18 113/75 92 01/01/23 20:45 37.4 C 96 H 18 119/83 98 O2 Del Method 01/02/23 08:01 Room Air 01/02/23 05:33 01/02/23 03:00 Room Air 01/02/23 00:44 01/01/23 23:09 Room Air 01/01/23 20:45 Room Air Laboratory Results 01/02/23 01/02/23 01/01/23 Range/Units 07:05 07:05 Unknown WBC 17.04 H (4.8-10.8) K/ul RBC 2.62 L (4.20-5.40) M/uL Hgb 8.6 L (12.0-16.0) g/dl Hct 27.6 L (37.0-47.0) % MCV 105.3 H (80.0-100.0) fL MCH 32.8 (25.0-34.0) pg MCHC 31.2 L (32.0-36.0) g/dL RDW Std Deviation 55.5 H (36.4-46.3) fL RDW Coeff of Carmen 14.3 (11.5-14.5) % Plt Count 472 H (130-400) K/uL MPV 9.4 (9.4-12.4) fL Immature Gran % (Auto) % Neut % (Auto) % Lymph % (Auto) % [place] % (Auto) % Eos % (Auto) % Baso % (Auto) % Reticulocyte % (Auto) (0.5-2.0) % Neut # (Auto) (1.40-6.50) K/uL Lymph # (Auto) (1.2-3.4) K/uL [place] # (Auto) (0.11-0.59) K/uL Eos # (Auto) (0-0.50) K/uL Baso # (Auto) (0-0.2) K/uL Reticulocyte # (0.02-0.10) 10^6/uL Immature Gran # (Auto) (0.01-0.20) K/uL Peripher Smr Path Cons Haptoglobin Sodium 138 (136-145) mmol/L Potassium 3.5 (3.5-5.1) mmol/L Chloride 112 H (98-107) mmol/L Carbon Dioxide 19 L (21-32) mmol/L Anion Gap 7 (3-11) BUN 2 L (6-23) mg/dl Creatinine 0.55 L (0.6-1.2) mg/dl Est Cr Clr Drug Dosing 163.7 ml/min Est GFR ( Amer) 140.8 ml/min Est GFR (Non-Af Amer) 121.5 ml/min BUN/Creatinine Ratio 3.6 L (10-20) Glucose 89 (70-99(Fasting)) mg/dl Lactate (0.4-2.0) mmol/L Calcium 8.0 L (8.6-10.3) mg/dl Phosphorus (2.5-4.9) mg/dl Magnesium (1.7-2.4) mg/dl Total Bilirubin (0.2-1.0) mg/dl Direct Bilirubin (0-0.2) mg/dl AST (13-39) U/L ALT (7-52) U/L Alkaline Phosphatase (34-104) U/L Lactate Dehydrogenase (86-244) U/L Troponin I High Sens (0-14) pg/ml Total Protein (6.0-8.3) gm/dl Albumin (3.4-5.0) gm/dl Globulin (2.5-4.0) gm/dl Albumin/Globulin Ratio (0.9-2) Procalcitonin (0-0.5) ng/ml TSH (0.300-4.500) uIu/ml Free T4 (0.61-1.60) ng/dl Urine Color Urine Appearance (Clear) Urine pH (4.5-7.5) Ur Specific Dexter (1.000-1.030) Urine Protein (Negative) Urine Glucose (UA) (Negative) Urine Ketones (Negative) Urine Blood (Negative) Urine Nitrite (Negative) Urine Bilirubin (Negative) Urine Urobilinogen (Negative) Ur Leukocyte Esterase (Negative) Urine WBC (Auto) (0-5) /hpf Urine RBC (Auto) (0-4) /hpf U Hyaline Cast (Auto) (0-5) /lpf U Epithel Cells (Auto) (0-5) /lpf Urine Bacteria (Auto) (Negative) Ur Total Porphyrins Random Uroporphyrins I Random Uroporphyrin III U Rdm Heptacarboxylpor U Rndm Hexacarboxylpor U Rdm Pentacarboxylpor U Random Coproporphyr I U Rndm Coproporphyr III Ur Porphyrins Interp Stl C. cayetanensis PCR Not Detected (NotDetected) Stool Rotavirus A PCR Not Detected (NotDetected) Stl Adenov F 40/41 PCR Not Detected (NotDetected) Stool Astrovirus (PCR) Not Detected (NotDetected) Stool Campylobacter PCR Not Detected (NotDetected) Stool Cryptosporidium PCR Not Detected (NotDetected) Stl E.coli Shiga Tox PCR Not Detected (NotDetected) Stl Enterotoxigenic E PCR Not Detected (NotDetected) Stool EPEC (PCR) Not Detected (NotDetected) Stool EAEC (PCR) Not Detected (NotDetected) Stl E. histolytica PCR Not Detected (NotDetected) Stool Giardia Lamblia PCR Not Detected (NotDetected) Stool Salmonella PCR Not Detected (NotDetected) Stool Sapovirus (PCR) Not Detected (NotDetected) Stl P. shigelloides PCR Not Detected (NotDetected) Stl Shigella/EIEC PCR Not Detected (NotDetected) St Y.enterocolitica PCR Not Detected (NotDetected) Stool Vibrio (PCR) Not Detected (NotDetected) Stl Vibrio cholerae PCR Not Detected (NotDetected) Stl Norovirus GI/GII PCR Not Detected (NotDetected) Direct Antiglob Test (Negative) EROS (IgG-AHG) (Negative) EROS, Polyspecific (Negative) EROS C3b, C3d 5 Min (Negative) 01/01/23 01/01/23 01/01/23 Range/Units 20:51 18:30 18:30 WBC (4.8-10.8) K/ul RBC (4.20-5.40) M/uL Hgb (12.0-16.0) g/dl Hct (37.0-47.0) % MCV (80.0-100.0) fL MCH (25.0-34.0) pg MCHC (32.0-36.0) g/dL RDW Std Deviation (36.4-46.3) fL RDW Coeff of Carmen (11.5-14.5) % Plt Count (130-400) K/uL MPV (9.4-12.4) fL Immature Gran % (Auto) % Neut % (Auto) % Lymph % (Auto) % [place] % (Auto) % Eos % (Auto) % Baso % (Auto) % Reticulocyte % (Auto) (0.5-2.0) % Neut # (Auto) (1.40-6.50) K/uL Lymph # (Auto) (1.2-3.4) K/uL [place] # (Auto) (0.11-0.59) K/uL Eos # (Auto) (0-0.50) K/uL Baso # (Auto) (0-0.2) K/uL Reticulocyte # (0.02-0.10) 10^6/uL Immature Gran # (Auto) (0.01-0.20) K/uL Peripher Smr Path Cons Haptoglobin Sodium (136-145) mmol/L Potassium (3.5-5.1) mmol/L Chloride (98-107) mmol/L Carbon Dioxide (21-32) mmol/L Anion Gap (3-11) BUN (6-23) mg/dl Creatinine (0.6-1.2) mg/dl Est Cr Clr Drug Dosing ml/min Est GFR ( Amer) ml/min Est GFR (Non-Af Amer) ml/min BUN/Creatinine Ratio (10-20) Glucose (70-99(Fasting)) mg/dl Lactate 2.7 H* (0.4-2.0) mmol/L Calcium (8.6-10.3) mg/dl Phosphorus (2.5-4.9) mg/dl Magnesium (1.7-2.4) mg/dl Total Bilirubin (0.2-1.0) mg/dl Direct Bilirubin (0-0.2) mg/dl AST (13-39) U/L ALT (7-52) U/L Alkaline Phosphatase (34-104) U/L Lactate Dehydrogenase (86-244) U/L Troponin I High Sens (0-14) pg/ml Total Protein (6.0-8.3) gm/dl Albumin (3.4-5.0) gm/dl Globulin (2.5-4.0) gm/dl Albumin/Globulin Ratio (0.9-2) Procalcitonin (0-0.5) ng/ml TSH (0.300-4.500) uIu/ml Free T4 (0.61-1.60) ng/dl Urine Color Urine Appearance (Clear) Urine pH (4.5-7.5) Ur Specific Dexter (1.000-1.030) Urine Protein (Negative) Urine Glucose (UA) (Negative) Urine Ketones (Negative) Urine Blood (Negative) Urine Nitrite (Negative) Urine Bilirubin (Negative) Urine Urobilinogen (Negative) Ur Leukocyte Esterase (Negative) Urine WBC (Auto) (0-5) /hpf Urine RBC (Auto) (0-4) /hpf U Hyaline Cast (Auto) (0-5) /lpf U Epithel Cells (Auto) (0-5) /lpf Urine Bacteria (Auto) (Negative) Ur Total Porphyrins Pending Cancelled Random Uroporphyrins I Pending Cancelled Random Uroporphyrin III Pending Cancelled U Rdm Heptacarboxylpor Pending Cancelled U Rndm Hexacarboxylpor Pending Cancelled U Rdm Pentacarboxylpor Pending Cancelled U Random Coproporphyr I Pending Cancelled U Rndm Coproporphyr III Pending Cancelled Ur Porphyrins Interp Pending Cancelled Stl C. cayetanensis PCR (NotDetected) Stool Rotavirus A PCR (NotDetected) Stl Adenov F 40/41 PCR (NotDetected) Stool Astrovirus (PCR) (NotDetected) Stool Campylobacter PCR (NotDetected) Stool Cryptosporidium PCR (NotDetected) Stl E.coli Shiga Tox PCR (NotDetected) Stl Enterotoxigenic E PCR (NotDetected) Stool EPEC (PCR) (NotDetected) Stool EAEC (PCR) (NotDetected) Stl E. histolytica PCR (NotDetected) Stool Giardia Lamblia PCR (NotDetected) Stool Salmonella PCR (NotDetected) Stool Sapovirus (PCR) (NotDetected) Stl P. shigelloides PCR (NotDetected) Stl Shigella/EIEC PCR (NotDetected) St Y.enterocolitica PCR (NotDetected) Stool Vibrio (PCR) (NotDetected) Stl Vibrio cholerae PCR (NotDetected) Stl Norovirus GI/GII PCR (NotDetected) Direct Antiglob Test (Negative) EROS (IgG-AHG) (Negative) EROS, Polyspecific (Negative) EROS C3b, C3d 5 Min (Negative) 01/01/23 01/01/23 01/01/23 Range/Units 18:30 18:00 18:00 WBC (4.8-10.8) K/ul RBC (4.20-5.40) M/uL Hgb (12.0-16.0) g/dl Hct (37.0-47.0) % MCV (80.0-100.0) fL MCH (25.0-34.0) pg MCHC (32.0-36.0) g/dL RDW Std Deviation (36.4-46.3) fL RDW Coeff of Carmen (11.5-14.5) % Plt Count (130-400) K/uL MPV (9.4-12.4) fL Immature Gran % (Auto) % Neut % (Auto) % Lymph % (Auto) % [place] % (Auto) % Eos % (Auto) % Baso % (Auto) % Reticulocyte % (Auto) (0.5-2.0) % Neut # (Auto) (1.40-6.50) K/uL Lymph # (Auto) (1.2-3.4) K/uL [place] # (Auto) (0.11-0.59) K/uL Eos # (Auto) (0-0.50) K/uL Baso # (Auto) (0-0.2) K/uL Reticulocyte # (0.02-0.10) 10^6/uL Immature Gran # (Auto) (0.01-0.20) K/uL Peripher Smr Path Cons Haptoglobin Sodium (136-145) mmol/L Potassium (3.5-5.1) mmol/L Chloride (98-107) mmol/L Carbon Dioxide (21-32) mmol/L Anion Gap (3-11) BUN (6-23) mg/dl Creatinine (0.6-1.2) mg/dl Est Cr Clr Drug Dosing ml/min Est GFR ( Amer) ml/min Est GFR (Non-Af Amer) ml/min BUN/Creatinine Ratio (10-20) Glucose (70-99(Fasting)) mg/dl Lactate 3.3 H* (0.4-2.0) mmol/L Calcium (8.6-10.3) mg/dl Phosphorus (2.5-4.9) mg/dl Magnesium (1.7-2.4) mg/dl Total Bilirubin (0.2-1.0) mg/dl Direct Bilirubin (0-0.2) mg/dl AST (13-39) U/L ALT (7-52) U/L Alkaline Phosphatase (34-104) U/L Lactate Dehydrogenase (86-244) U/L Troponin I High Sens (0-14) pg/ml Total Protein (6.0-8.3) gm/dl Albumin (3.4-5.0) gm/dl Globulin (2.5-4.0) gm/dl Albumin/Globulin Ratio (0.9-2) Procalcitonin 0.25 (0-0.5) ng/ml TSH (0.300-4.500) uIu/ml Free T4 (0.61-1.60) ng/dl Urine Color Yellow Urine Appearance Clear (Clear) Urine pH 6.5 (4.5-7.5) Ur Specific Dexter 1.006 (1.000-1.030) Urine Protein Negative (Negative) Urine Glucose (UA) Negative (Negative) Urine Ketones Negative (Negative) Urine Blood Negative (Negative) Urine Nitrite Negative (Negative) Urine Bilirubin Negative (Negative) Urine Urobilinogen Negative (Negative) Ur Leukocyte Esterase Trace H (Negative) Urine WBC (Auto) 1-5 (0-5) /hpf Urine RBC (Auto) 0-4 (0-4) /hpf U Hyaline Cast (Auto) 0 (0-5) /lpf U Epithel Cells (Auto) >30 H (0-5) /lpf Urine Bacteria (Auto) Negative (Negative) Ur Total Porphyrins Random Uroporphyrins I Random Uroporphyrin III U Rdm Heptacarboxylpor U Rndm Hexacarboxylpor U Rdm Pentacarboxylpor U Random Coproporphyr I U Rndm Coproporphyr III Ur Porphyrins Interp Stl C. cayetanensis PCR (NotDetected) Stool Rotavirus A PCR (NotDetected) Stl Adenov F 40/41 PCR (NotDetected) Stool Astrovirus (PCR) (NotDetected) Stool Campylobacter PCR (NotDetected) Stool Cryptosporidium PCR (NotDetected) Stl E.coli Shiga Tox PCR (NotDetected) Stl Enterotoxigenic E PCR (NotDetected) Stool EPEC (PCR) (NotDetected) Stool EAEC (PCR) (NotDetected) Stl E. histolytica PCR (NotDetected) Stool Giardia Lamblia PCR (NotDetected) Stool Salmonella PCR (NotDetected) Stool Sapovirus (PCR) (NotDetected) Stl P. shigelloides PCR (NotDetected) Stl Shigella/EIEC PCR (NotDetected) St Y.enterocolitica PCR (NotDetected) Stool Vibrio (PCR) (NotDetected) Stl Vibrio cholerae PCR (NotDetected) Stl Norovirus GI/GII PCR (NotDetected) Direct Antiglob Test (Negative) EROS (IgG-AHG) (Negative) EROS, Polyspecific (Negative) EROS C3b, C3d 5 Min (Negative) 01/01/23 01/01/23 01/01/23 Range/Units 18:00 18:00 11:03 WBC 13.66 H (4.8-10.8) K/ul RBC 3.42 L (4.20-5.40) M/uL Hgb 11.4 L (12.0-16.0) g/dl Hct 35.6 L (37.0-47.0) % MCV 104.1 H (80.0-100.0) fL MCH 33.3 (25.0-34.0) pg MCHC 32.0 (32.0-36.0) g/dL RDW Std Deviation 54.6 H (36.4-46.3) fL RDW Coeff of Carmen 14.3 (11.5-14.5) % Plt Count 402 H (130-400) K/uL MPV 9.2 L (9.4-12.4) fL Immature Gran % (Auto) 1.1 % Neut % (Auto) 70.7 % Lymph % (Auto) 16.8 % [place] % (Auto) 8.7 % Eos % (Auto) 2.0 % Baso % (Auto) 0.7 % Reticulocyte % (Auto) (0.5-2.0) % Neut # (Auto) 9.67 H (1.40-6.50) K/uL Lymph # (Auto) 2.29 (1.2-3.4) K/uL [place] # (Auto) 1.19 H (0.11-0.59) K/uL Eos # (Auto) 0.27 (0-0.50) K/uL Baso # (Auto) 0.09 (0-0.2) K/uL Reticulocyte # (0.02-0.10) 10^6/uL Immature Gran # (Auto) 0.15 (0.01-0.20) K/uL Peripher Smr Path Cons Haptoglobin Pending Sodium 137 (136-145) mmol/L Potassium 3.8 D (3.5-5.1) mmol/L Chloride 115 H (98-107) mmol/L Carbon Dioxide 17 L (21-32) mmol/L Anion Gap 5 (3-11) BUN 2 L (6-23) mg/dl Creatinine 0.51 L (0.6-1.2) mg/dl Est Cr Clr Drug Dosing 177.3 ml/min Est GFR ( Amer) 144.4 ml/min Est GFR (Non-Af Amer) 124.6 ml/min BUN/Creatinine Ratio 3.9 L (10-20) Glucose 86 (70-99(Fasting)) mg/dl Lactate (0.4-2.0) mmol/L Calcium 7.7 L (8.6-10.3) mg/dl Phosphorus (2.5-4.9) mg/dl Magnesium 2.2 (1.7-2.4) mg/dl Total Bilirubin 1.0 (0.2-1.0) mg/dl Direct Bilirubin 0.4 H (0-0.2) mg/dl AST 58 H (13-39) U/L ALT 19 (7-52) U/L Alkaline Phosphatase 266 H (34-104) U/L Lactate Dehydrogenase (86-244) U/L Troponin I High Sens 7.3 (0-14) pg/ml Total Protein 6.4 (6.0-8.3) gm/dl Albumin 2.9 L (3.4-5.0) gm/dl Globulin (2.5-4.0) gm/dl Albumin/Globulin Ratio (0.9-2) Procalcitonin (0-0.5) ng/ml TSH (0.300-4.500) uIu/ml Free T4 (0.61-1.60) ng/dl Urine Color Urine Appearance (Clear) Urine pH (4.5-7.5) Ur Specific Dexter (1.000-1.030) Urine Protein (Negative) Urine Glucose (UA) (Negative) Urine Ketones (Negative) Urine Blood (Negative) Urine Nitrite (Negative) Urine Bilirubin (Negative) Urine Urobilinogen (Negative) Ur Leukocyte Esterase (Negative) Urine WBC (Auto) (0-5) /hpf Urine RBC (Auto) (0-4) /hpf U Hyaline Cast (Auto) (0-5) /lpf U Epithel Cells (Auto) (0-5) /lpf Urine Bacteria (Auto) (Negative) Ur Total Porphyrins Random Uroporphyrins I Random Uroporphyrin III U Rdm Heptacarboxylpor U Rndm Hexacarboxylpor U Rdm Pentacarboxylpor U Random Coproporphyr I U Rndm Coproporphyr III Ur Porphyrins Interp Stl C. cayetanensis PCR (NotDetected) Stool Rotavirus A PCR (NotDetected) Stl Adenov F 40/41 PCR (NotDetected) Stool Astrovirus (PCR) (NotDetected) Stool Campylobacter PCR (NotDetected) Stool Cryptosporidium PCR (NotDetected) Stl E.coli Shiga Tox PCR (NotDetected) Stl Enterotoxigenic E PCR (NotDetected) Stool EPEC (PCR) (NotDetected) Stool EAEC (PCR) (NotDetected) Stl E. histolytica PCR (NotDetected) Stool Giardia Lamblia PCR (NotDetected) Stool Salmonella PCR (NotDetected) Stool Sapovirus (PCR) (NotDetected) Stl P. shigelloides PCR (NotDetected) Stl Shigella/EIEC PCR (NotDetected) St Y.enterocolitica PCR (NotDetected) Stool Vibrio (PCR) (NotDetected) Stl Vibrio cholerae PCR (NotDetected) Stl Norovirus GI/GII PCR (NotDetected) Direct Antiglob Test (Negative) EROS (IgG-AHG) (Negative) EROS, Polyspecific (Negative) EROS C3b, C3d 5 Min (Negative) 01/01/23 01/01/23 01/01/23 Range/Units 11:03 11:03 11:03 WBC (4.8-10.8) K/ul RBC (4.20-5.40) M/uL Hgb (12.0-16.0) g/dl Hct (37.0-47.0) % MCV (80.0-100.0) fL MCH (25.0-34.0) pg MCHC (32.0-36.0) g/dL RDW Std Deviation (36.4-46.3) fL RDW Coeff of Carmen (11.5-14.5) % Plt Count (130-400) K/uL MPV (9.4-12.4) fL Immature Gran % (Auto) % Neut % (Auto) % Lymph % (Auto) % [place] % (Auto) % Eos % (Auto) % Baso % (Auto) % Reticulocyte % (Auto) 3.6 H (0.5-2.0) % Neut # (Auto) (1.40-6.50) K/uL Lymph # (Auto) (1.2-3.4) K/uL [place] # (Auto) (0.11-0.59) K/uL Eos # (Auto) (0-0.50) K/uL Baso # (Auto) (0-0.2) K/uL Reticulocyte # 0.10 (0.02-0.10) 10^6/uL Immature Gran # (Auto) (0.01-0.20) K/uL Peripher Smr Path Cons Haptoglobin Sodium (136-145) mmol/L Potassium (3.5-5.1) mmol/L Chloride (98-107) mmol/L Carbon Dioxide (21-32) mmol/L Anion Gap (3-11) BUN (6-23) mg/dl Creatinine (0.6-1.2) mg/dl Est Cr Clr Drug Dosing ml/min Est GFR ( Amer) ml/min Est GFR (Non-Af Amer) ml/min BUN/Creatinine Ratio (10-20) Glucose (70-99(Fasting)) mg/dl Lactate (0.4-2.0) mmol/L Calcium (8.6-10.3) mg/dl Phosphorus (2.5-4.9) mg/dl Magnesium (1.7-2.4) mg/dl Total Bilirubin (0.2-1.0) mg/dl Direct Bilirubin (0-0.2) mg/dl AST (13-39) U/L ALT (7-52) U/L Alkaline Phosphatase (34-104) U/L Lactate Dehydrogenase 125 (86-244) U/L Troponin I High Sens (0-14) pg/ml Total Protein (6.0-8.3) gm/dl Albumin (3.4-5.0) gm/dl Globulin (2.5-4.0) gm/dl Albumin/Globulin Ratio (0.9-2) Procalcitonin (0-0.5) ng/ml TSH 9.484 H (0.300-4.500) uIu/ml Free T4 1.24 (0.61-1.60) ng/dl Urine Color Urine Appearance (Clear) Urine pH (4.5-7.5) Ur Specific Dexter (1.000-1.030) Urine Protein (Negative) Urine Glucose (UA) (Negative) Urine Ketones (Negative) Urine Blood (Negative) Urine Nitrite (Negative) Urine Bilirubin (Negative) Urine Urobilinogen (Negative) Ur Leukocyte Esterase (Negative) Urine WBC (Auto) (0-5) /hpf Urine RBC (Auto) (0-4) /hpf U Hyaline Cast (Auto) (0-5) /lpf U Epithel Cells (Auto) (0-5) /lpf Urine Bacteria (Auto) (Negative) Ur Total Porphyrins Random Uroporphyrins I Random Uroporphyrin III U Rdm Heptacarboxylpor U Rndm Hexacarboxylpor U Rdm Pentacarboxylpor U Random Coproporphyr I U Rndm Coproporphyr III Ur Porphyrins Interp Stl C. cayetanensis PCR (NotDetected) Stool Rotavirus A PCR (NotDetected) Stl Adenov F 40/41 PCR (NotDetected) Stool Astrovirus (PCR) (NotDetected) Stool Campylobacter PCR (NotDetected) Stool Cryptosporidium PCR (NotDetected) Stl E.coli Shiga Tox PCR (NotDetected) Stl Enterotoxigenic E PCR (NotDetected) Stool EPEC (PCR) (NotDetected) Stool EAEC (PCR) (NotDetected) Stl E. histolytica PCR (NotDetected) Stool Giardia Lamblia PCR (NotDetected) Stool Salmonella PCR (NotDetected) Stool Sapovirus (PCR) (NotDetected) Stl P. shigelloides PCR (NotDetected) Stl Shigella/EIEC PCR (NotDetected) St Y.enterocolitica PCR (NotDetected) Stool Vibrio (PCR) (NotDetected) Stl Vibrio cholerae PCR (NotDetected) Stl Norovirus GI/GII PCR (NotDetected) Direct Antiglob Test (Negative) EROS (IgG-AHG) (Negative) EROS, Polyspecific (Negative) EROS C3b, C3d 5 Min (Negative) 01/01/23 01/01/23 01/01/23 Range/Units 11:03 10:22 08:19 WBC (4.8-10.8) K/ul RBC (4.20-5.40) M/uL Hgb (12.0-16.0) g/dl Hct (37.0-47.0) % MCV (80.0-100.0) fL MCH (25.0-34.0) pg MCHC (32.0-36.0) g/dL RDW Std Deviation (36.4-46.3) fL RDW Coeff of Carmen (11.5-14.5) % Plt Count (130-400) K/uL MPV (9.4-12.4) fL Immature Gran % (Auto) % Neut % (Auto) % Lymph % (Auto) % [place] % (Auto) % Eos % (Auto) % Baso % (Auto) % Reticulocyte % (Auto) (0.5-2.0) % Neut # (Auto) (1.40-6.50) K/uL Lymph # (Auto) (1.2-3.4) K/uL [place] # (Auto) (0.11-0.59) K/uL Eos # (Auto) (0-0.50) K/uL Baso # (Auto) (0-0.2) K/uL Reticulocyte # (0.02-0.10) 10^6/uL Immature Gran # (Auto) (0.01-0.20) K/uL Peripher Smr Path Cons Haptoglobin Sodium 141 (136-145) mmol/L Potassium 3.1 L (3.5-5.1) mmol/L Chloride 114 H (98-107) mmol/L Carbon Dioxide 20 L (21-32) mmol/L Anion Gap 7 (3-11) BUN 2 L (6-23) mg/dl Creatinine 0.65 (0.6-1.2) mg/dl Est Cr Clr Drug Dosing 139.1 ml/min Est GFR ( Amer) 133.3 ml/min Est GFR (Non-Af Amer) 115.0 ml/min BUN/Creatinine Ratio 3.1 L (10-20) Glucose 83 (70-99(Fasting)) mg/dl Lactate 3.0 H* (0.4-2.0) mmol/L Calcium 7.9 L (8.6-10.3) mg/dl Phosphorus 2.4 L (2.5-4.9) mg/dl Magnesium 1.7 (1.7-2.4) mg/dl Total Bilirubin 0.8 (0.2-1.0) mg/dl Direct Bilirubin (0-0.2) mg/dl AST 49 H (13-39) U/L ALT 16 (7-52) U/L Alkaline Phosphatase 238 H (34-104) U/L Lactate Dehydrogenase (86-244) U/L Troponin I High Sens (0-14) pg/ml Total Protein 6.1 (6.0-8.3) gm/dl Albumin 2.8 L (3.4-5.0) gm/dl Globulin 3.3 (2.5-4.0) gm/dl Albumin/Globulin Ratio 0.8 L (0.9-2) Procalcitonin (0-0.5) ng/ml TSH (0.300-4.500) uIu/ml Free T4 (0.61-1.60) ng/dl Urine Color Urine Appearance (Clear) Urine pH (4.5-7.5) Ur Specific Dexter (1.000-1.030) Urine Protein (Negative) Urine Glucose (UA) (Negative) Urine Ketones (Negative) Urine Blood (Negative) Urine Nitrite (Negative) Urine Bilirubin (Negative) Urine Urobilinogen (Negative) Ur Leukocyte Esterase (Negative) Urine WBC (Auto) (0-5) /hpf Urine RBC (Auto) (0-4) /hpf U Hyaline Cast (Auto) (0-5) /lpf U Epithel Cells (Auto) (0-5) /lpf Urine Bacteria (Auto) (Negative) Ur Total Porphyrins Random Uroporphyrins I Random Uroporphyrin III U Rdm Heptacarboxylpor U Rndm Hexacarboxylpor U Rdm Pentacarboxylpor U Random Coproporphyr I U Rndm Coproporphyr III Ur Porphyrins Interp Stl C. cayetanensis PCR (NotDetected) Stool Rotavirus A PCR (NotDetected) Stl Adenov F 40/41 PCR (NotDetected) Stool Astrovirus (PCR) (NotDetected) Stool Campylobacter PCR (NotDetected) Stool Cryptosporidium PCR (NotDetected) Stl E.coli Shiga Tox PCR (NotDetected) Stl Enterotoxigenic E PCR (NotDetected) Stool EPEC (PCR) (NotDetected) Stool EAEC (PCR) (NotDetected) Stl E. histolytica PCR (NotDetected) Stool Giardia Lamblia PCR (NotDetected) Stool Salmonella PCR (NotDetected) Stool Sapovirus (PCR) (NotDetected) Stl P. shigelloides PCR (NotDetected) Stl Shigella/EIEC PCR (NotDetected) St Y.enterocolitica PCR (NotDetected) Stool Vibrio (PCR) (NotDetected) Stl Vibrio cholerae PCR (NotDetected) Stl Norovirus GI/GII PCR (NotDetected) Direct Antiglob Test Negative (Negative) EROS (IgG-AHG) Neg (Negative) EROS, Polyspecific Neg (Negative) EROS C3b, C3d 5 Min Neg (Negative) (1) Abdominal pain Abdominal location: unspecified location Qualified Code(s): R10.9 - Unspecified abdominal pain
[2023-01-02] MEDS: THIAMINE HCL 100 MG TAB PO SCH (08:40)
[2023-01-02] MEDS: CYANOCOBALAMIN 1000 MCG/ML VIAL IM SCH (08:40)
[2023-01-02] MEDS: DICYCLOMINE HCL 10 MG CAP PO SCH ×3 (08:40→16:25)
[2023-01-02] MEDS: NICOTINE 21 MG/24 HR TDSY TD SCH (08:41)
[2023-01-02] MEDS: MULTIVITAMIN TAB PO SCH (08:41)
[2023-01-02] MEDS: FOLIC ACID 1 MG TAB PO SCH (08:41)
--- NOTE | 2023-01-02 10:10 | Surgery Progress Note ---
Date of Service January 02, 2023 Assessment & Plan (1) Abdominal pain: (2) Lactic acidemia: (3) Right upper quadrant abdominal pain: (4) Hepatomegaly: Plan 37 year old female with chronic upper/right upper abdominal pain for 6 months. History of alcohol use and recent use per records. Normal CT scan, normal CTA. Leukocytosis of 17k and Lactic acidosis of 2.7 (improving) Etiology of chronic abdominal pain: severe hepatomegaly and steatosis? Plan: No acute surgical intervention required at this time Continue pain management as needed Encourage alcohol cessation GI planning for upper endoscopy today [facility] surgery covering over weekend. Dr. Faustin has seen and examined pt, agrees with above. Admission and Anticipated Discharge Date Admission Date: December 30, 2022 Subjective upon entering room patient resting comfortably in bed with eyes closed states she is still having RUQ/epigastric pain, no changes, abdomen feels rock hard Had diarrhea with alot of bright red blood this morning possible upper endoscopy today by GI, now npo Physical Exam Constitutional: WD/WN, vitals as above cooperative and comfortable; no acute distress and not ill appearing Respiratory: normal respiratory effort; no respiratory distress Gastrointestinal (Abdomen): Inspection/Auscultation: abdomen normal to inspection and + abdominal surgical scar Percussion/Palpation: + abdomen tender (RUQ), + guarding (voluntary RUQ), abdomen soft and + hepatomegaly; abdomen not rigid Skin: no rashes, warm and dry no jaundice Psychiatric: Orientation: alert and oriented x 3 Results & Data Vital Signs (Past 12 Hours) Vital Signs Temp Pulse Pulse Resp BP BP Pulse Ox 01/02/23 08:01 37.0 C 95 H 20 112/78 96 01/02/23 05:33 120/78 01/02/23 03:00 37.2 C 92 H 18 98/63 L 95 01/02/23 00:44 113 H 01/01/23 23:09 37.1 C 99 H 18 113/75 92 O2 Del Method 01/02/23 08:01 Room Air 01/02/23 05:33 01/02/23 03:00 Room Air 01/02/23 00:44 01/01/23 23:09 Room Air Laboratory Results 01/02/23 01/02/23 01/01/23 Range/Units 07:05 07:05 Unknown WBC 17.04 H (4.8-10.8) K/ul RBC 2.62 L (4.20-5.40) M/uL Hgb 8.6 L (12.0-16.0) g/dl Hct 27.6 L (37.0-47.0) % MCV 105.3 H (80.0-100.0) fL MCH 32.8 (25.0-34.0) pg MCHC 31.2 L (32.0-36.0) g/dL RDW Std Deviation 55.5 H (36.4-46.3) fL RDW Coeff of Carmen 14.3 (11.5-14.5) % Plt Count 472 H (130-400) K/uL MPV 9.4 (9.4-12.4) fL Immature Gran % (Auto) % Neut % (Auto) % Lymph % (Auto) % [place] % (Auto) % Eos % (Auto) % Baso % (Auto) % Reticulocyte % (Auto) (0.5-2.0) % Neut # (Auto) (1.40-6.50) K/uL Lymph # (Auto) (1.2-3.4) K/uL [place] # (Auto) (0.11-0.59) K/uL Eos # (Auto) (0-0.50) K/uL Baso # (Auto) (0-0.2) K/uL Reticulocyte # (0.02-0.10) 10^6/uL Immature Gran # (Auto) (0.01-0.20) K/uL Peripher Smr Path Cons Haptoglobin (43-212) mg/dL Sodium 138 (136-145) mmol/L Potassium 3.5 (3.5-5.1) mmol/L Chloride 112 H (98-107) mmol/L Carbon Dioxide 19 L (21-32) mmol/L Anion Gap 7 (3-11) BUN 2 L (6-23) mg/dl Creatinine 0.55 L (0.6-1.2) mg/dl Est Cr Clr Drug Dosing 163.7 ml/min Est GFR ( Amer) 140.8 ml/min Est GFR (Non-Af Amer) 121.5 ml/min BUN/Creatinine Ratio 3.6 L (10-20) Glucose 89 (70-99(Fasting)) mg/dl Lactate (0.4-2.0) mmol/L Calcium 8.0 L (8.6-10.3) mg/dl Magnesium (1.7-2.4) mg/dl Total Bilirubin (0.2-1.0) mg/dl Direct Bilirubin (0-0.2) mg/dl AST (13-39) U/L ALT (7-52) U/L Alkaline Phosphatase (34-104) U/L Lactate Dehydrogenase (86-244) U/L Troponin I High Sens (0-14) pg/ml Total Protein (6.0-8.3) gm/dl Albumin (3.4-5.0) gm/dl Procalcitonin (0-0.5) ng/ml TSH (0.300-4.500) uIu/ml Free T4 (0.61-1.60) ng/dl Urine Color Urine Appearance (Clear) Urine pH (4.5-7.5) Ur Specific [place] (1.000-1.030) Urine Protein (Negative) Urine Glucose (UA) (Negative) Urine Ketones (Negative) Urine Blood (Negative) Urine Nitrite (Negative) Urine Bilirubin (Negative) Urine Urobilinogen (Negative) Ur Leukocyte Esterase (Negative) Urine WBC (Auto) (0-5) /hpf Urine RBC (Auto) (0-4) /hpf U Hyaline Cast (Auto) (0-5) /lpf U Epithel Cells (Auto) (0-5) /lpf Urine Bacteria (Auto) (Negative) Ur Total Porphyrins Random Uroporphyrins I Random Uroporphyrin III U Rdm Heptacarboxylpor U Rndm Hexacarboxylpor U Rdm Pentacarboxylpor U Random Coproporphyr I U Rndm Coproporphyr III Ur Porphyrins Interp Stl C. cayetanensis PCR Not Detected (NotDetected) Stool Rotavirus A PCR Not Detected (NotDetected) Stl Adenov F 40/41 PCR Not Detected (NotDetected) Stool Astrovirus (PCR) Not Detected (NotDetected) Stool Campylobacter PCR Not Detected (NotDetected) Stool Cryptosporidium PCR Not Detected (NotDetected) Stl E.coli Shiga Tox PCR Not Detected (NotDetected) Stl Enterotoxigenic E PCR Not Detected (NotDetected) Stool EPEC (PCR) Not Detected (NotDetected) Stool EAEC (PCR) Not Detected (NotDetected) Stl E. histolytica PCR Not Detected (NotDetected) Stool Giardia Lamblia PCR Not Detected (NotDetected) Stool Salmonella PCR Not Detected (NotDetected) Stool Sapovirus (PCR) Not Detected (NotDetected) Stl P. shigelloides PCR Not Detected (NotDetected) Stl Shigella/EIEC PCR Not Detected (NotDetected) St Y.enterocolitica PCR Not Detected (NotDetected) Stool Vibrio (PCR) Not Detected (NotDetected) Stl Vibrio cholerae PCR Not Detected (NotDetected) Stl Norovirus GI/GII PCR Not Detected (NotDetected) U Codeine Confrm GC/MS (<50) ng/mL Ur Morphine (GC/MS) (<50) ng/mL Ur Hydrocodone (GC/MS) (<50) ng/mL Ur Norhydrocodone (<50) ng/mL Ur Noroxycodone (<50) ng/mL Urine Oxycodone (GC/MS) (<50) ng/mL U Oxymorphone GC/MS (<50) ng/mL Ur Hydromorphone (GC/MS) (<50) ng/mL U Marijuana THC Carboxy (<5) ng/mL Drug Screen Comment Direct Antiglob Test (Negative) EROS (IgG-AHG) (Negative) EROS, Polyspecific (Negative) EROS C3b, C3d 5 Min (Negative) 01/01/23 01/01/23 01/01/23 Range/Units 20:51 18:30 18:30 WBC (4.8-10.8) K/ul RBC (4.20-5.40) M/uL Hgb (12.0-16.0) g/dl Hct (37.0-47.0) % MCV (80.0-100.0) fL MCH (25.0-34.0) pg MCHC (32.0-36.0) g/dL RDW Std Deviation (36.4-46.3) fL RDW Coeff of Carmen (11.5-14.5) % Plt Count (130-400) K/uL MPV (9.4-12.4) fL Immature Gran % (Auto) % Neut % (Auto) % Lymph % (Auto) % [place] % (Auto) % Eos % (Auto) % Baso % (Auto) % Reticulocyte % (Auto) (0.5-2.0) % Neut # (Auto) (1.40-6.50) K/uL Lymph # (Auto) (1.2-3.4) K/uL [place] # (Auto) (0.11-0.59) K/uL Eos # (Auto) (0-0.50) K/uL Baso # (Auto) (0-0.2) K/uL Reticulocyte # (0.02-0.10) 10^6/uL Immature Gran # (Auto) (0.01-0.20) K/uL Peripher Smr Path Cons Haptoglobin (43-212) mg/dL Sodium (136-145) mmol/L Potassium (3.5-5.1) mmol/L Chloride (98-107) mmol/L Carbon Dioxide (21-32) mmol/L Anion Gap (3-11) BUN (6-23) mg/dl Creatinine (0.6-1.2) mg/dl Est Cr Clr Drug Dosing ml/min Est GFR ( Amer) ml/min Est GFR (Non-Af Amer) ml/min BUN/Creatinine Ratio (10-20) Glucose (70-99(Fasting)) mg/dl Lactate 2.7 H* (0.4-2.0) mmol/L Calcium (8.6-10.3) mg/dl Magnesium (1.7-2.4) mg/dl Total Bilirubin (0.2-1.0) mg/dl Direct Bilirubin (0-0.2) mg/dl AST (13-39) U/L ALT (7-52) U/L Alkaline Phosphatase (34-104) U/L Lactate Dehydrogenase (86-244) U/L Troponin I High Sens (0-14) pg/ml Total Protein (6.0-8.3) gm/dl Albumin (3.4-5.0) gm/dl Procalcitonin (0-0.5) ng/ml TSH (0.300-4.500) uIu/ml Free T4 (0.61-1.60) ng/dl Urine Color Urine Appearance (Clear) Urine pH (4.5-7.5) Ur Specific [place] (1.000-1.030) Urine Protein (Negative) Urine Glucose (UA) (Negative) Urine Ketones (Negative) Urine Blood (Negative) Urine Nitrite (Negative) Urine Bilirubin (Negative) Urine Urobilinogen (Negative) Ur Leukocyte Esterase (Negative) Urine WBC (Auto) (0-5) /hpf Urine RBC (Auto) (0-4) /hpf U Hyaline Cast (Auto) (0-5) /lpf U Epithel Cells (Auto) (0-5) /lpf Urine Bacteria (Auto) (Negative) Ur Total Porphyrins Pending Cancelled Random Uroporphyrins I Pending Cancelled Random Uroporphyrin III Pending Cancelled U Rdm Heptacarboxylpor Pending Cancelled U Rndm Hexacarboxylpor Pending Cancelled U Rdm Pentacarboxylpor Pending Cancelled U Random Coproporphyr I Pending Cancelled U Rndm Coproporphyr III Pending Cancelled Ur Porphyrins Interp Pending Cancelled Stl C. cayetanensis PCR (NotDetected) Stool Rotavirus A PCR (NotDetected) Stl Adenov F 40/41 PCR (NotDetected) Stool Astrovirus (PCR) (NotDetected) Stool Campylobacter PCR (NotDetected) Stool Cryptosporidium PCR (NotDetected) Stl E.coli Shiga Tox PCR (NotDetected) Stl Enterotoxigenic E PCR (NotDetected) Stool EPEC (PCR) (NotDetected) Stool EAEC (PCR) (NotDetected) Stl E. histolytica PCR (NotDetected) Stool Giardia Lamblia PCR (NotDetected) Stool Salmonella PCR (NotDetected) Stool Sapovirus (PCR) (NotDetected) Stl P. shigelloides PCR (NotDetected) Stl Shigella/EIEC PCR (NotDetected) St Y.enterocolitica PCR (NotDetected) Stool Vibrio (PCR) (NotDetected) Stl Vibrio cholerae PCR (NotDetected) Stl Norovirus GI/GII PCR (NotDetected) U Codeine Confrm GC/MS (<50) ng/mL Ur Morphine (GC/MS) (<50) ng/mL Ur Hydrocodone (GC/MS) (<50) ng/mL Ur Norhydrocodone (<50) ng/mL Ur Noroxycodone (<50) ng/mL Urine Oxycodone (GC/MS) (<50) ng/mL U Oxymorphone GC/MS (<50) ng/mL Ur Hydromorphone (GC/MS) (<50) ng/mL U Marijuana THC Carboxy (<5) ng/mL Drug Screen Comment Direct Antiglob Test (Negative) EROS (IgG-AHG) (Negative) EROS, Polyspecific (Negative) EROS C3b, C3d 5 Min (Negative) 01/01/23 01/01/23 01/01/23 Range/Units 18:30 18:00 18:00 WBC (4.8-10.8) K/ul RBC (4.20-5.40) M/uL Hgb (12.0-16.0) g/dl Hct (37.0-47.0) % MCV (80.0-100.0) fL MCH (25.0-34.0) pg MCHC (32.0-36.0) g/dL RDW Std Deviation (36.4-46.3) fL RDW Coeff of Carmen (11.5-14.5) % Plt Count (130-400) K/uL MPV (9.4-12.4) fL Immature Gran % (Auto) % Neut % (Auto) % Lymph % (Auto) % [place] % (Auto) % Eos % (Auto) % Baso % (Auto) % Reticulocyte % (Auto) (0.5-2.0) % Neut # (Auto) (1.40-6.50) K/uL Lymph # (Auto) (1.2-3.4) K/uL [place] # (Auto) (0.11-0.59) K/uL Eos # (Auto) (0-0.50) K/uL Baso # (Auto) (0-0.2) K/uL Reticulocyte # (0.02-0.10) 10^6/uL Immature Gran # (Auto) (0.01-0.20) K/uL Peripher Smr Path Cons Haptoglobin (43-212) mg/dL Sodium (136-145) mmol/L Potassium (3.5-5.1) mmol/L Chloride (98-107) mmol/L Carbon Dioxide (21-32) mmol/L Anion Gap (3-11) BUN (6-23) mg/dl Creatinine (0.6-1.2) mg/dl Est Cr Clr Drug Dosing ml/min Est GFR ( Amer) ml/min Est GFR (Non-Af Amer) ml/min BUN/Creatinine Ratio (10-20) Glucose (70-99(Fasting)) mg/dl Lactate 3.3 H* (0.4-2.0) mmol/L Calcium (8.6-10.3) mg/dl Magnesium (1.7-2.4) mg/dl Total Bilirubin (0.2-1.0) mg/dl Direct Bilirubin (0-0.2) mg/dl AST (13-39) U/L ALT (7-52) U/L Alkaline Phosphatase (34-104) U/L Lactate Dehydrogenase (86-244) U/L Troponin I High Sens (0-14) pg/ml Total Protein (6.0-8.3) gm/dl Albumin (3.4-5.0) gm/dl Procalcitonin 0.25 (0-0.5) ng/ml TSH (0.300-4.500) uIu/ml Free T4 (0.61-1.60) ng/dl Urine Color Yellow Urine Appearance Clear (Clear) Urine pH 6.5 (4.5-7.5) Ur Specific [place] 1.006 (1.000-1.030) Urine Protein Negative (Negative) Urine Glucose (UA) Negative (Negative) Urine Ketones Negative (Negative) Urine Blood Negative (Negative) Urine Nitrite Negative (Negative) Urine Bilirubin Negative (Negative) Urine Urobilinogen Negative (Negative) Ur Leukocyte Esterase Trace H (Negative) Urine WBC (Auto) 1-5 (0-5) /hpf Urine RBC (Auto) 0-4 (0-4) /hpf U Hyaline Cast (Auto) 0 (0-5) /lpf U Epithel Cells (Auto) >30 H (0-5) /lpf Urine Bacteria (Auto) Negative (Negative) Ur Total Porphyrins Random Uroporphyrins I Random Uroporphyrin III U Rdm Heptacarboxylpor U Rndm Hexacarboxylpor U Rdm Pentacarboxylpor U Random Coproporphyr I U Rndm Coproporphyr III Ur Porphyrins Interp Stl C. cayetanensis PCR (NotDetected) Stool Rotavirus A PCR (NotDetected) Stl Adenov F 40/41 PCR (NotDetected) Stool Astrovirus (PCR) (NotDetected) Stool Campylobacter PCR (NotDetected) Stool Cryptosporidium PCR (NotDetected) Stl E.coli Shiga Tox PCR (NotDetected) Stl Enterotoxigenic E PCR (NotDetected) Stool EPEC (PCR) (NotDetected) Stool EAEC (PCR) (NotDetected) Stl E. histolytica PCR (NotDetected) Stool Giardia Lamblia PCR (NotDetected) Stool Salmonella PCR (NotDetected) Stool Sapovirus (PCR) (NotDetected) Stl P. shigelloides PCR (NotDetected) Stl Shigella/EIEC PCR (NotDetected) St Y.enterocolitica PCR (NotDetected) Stool Vibrio (PCR) (NotDetected) Stl Vibrio cholerae PCR (NotDetected) Stl Norovirus GI/GII PCR (NotDetected) U Codeine Confrm GC/MS (<50) ng/mL Ur Morphine (GC/MS) (<50) ng/mL Ur Hydrocodone (GC/MS) (<50) ng/mL Ur Norhydrocodone (<50) ng/mL Ur Noroxycodone (<50) ng/mL Urine Oxycodone (GC/MS) (<50) ng/mL U Oxymorphone GC/MS (<50) ng/mL Ur Hydromorphone (GC/MS) (<50) ng/mL U Marijuana THC Carboxy (<5) ng/mL Drug Screen Comment Direct Antiglob Test (Negative) EROS (IgG-AHG) (Negative) EROS, Polyspecific (Negative) EROS C3b, C3d 5 Min (Negative) 01/01/23 01/01/23 01/01/23 Range/Units 18:00 18:00 11:03 WBC 13.66 H (4.8-10.8) K/ul RBC 3.42 L (4.20-5.40) M/uL Hgb 11.4 L (12.0-16.0) g/dl Hct 35.6 L (37.0-47.0) % MCV 104.1 H (80.0-100.0) fL MCH 33.3 (25.0-34.0) pg MCHC 32.0 (32.0-36.0) g/dL RDW Std Deviation 54.6 H (36.4-46.3) fL RDW Coeff of Carmen 14.3 (11.5-14.5) % Plt Count 402 H (130-400) K/uL MPV 9.2 L (9.4-12.4) fL Immature Gran % (Auto) 1.1 % Neut % (Auto) 70.7 % Lymph % (Auto) 16.8 % [place] % (Auto) 8.7 % Eos % (Auto) 2.0 % Baso % (Auto) 0.7 % Reticulocyte % (Auto) (0.5-2.0) % Neut # (Auto) 9.67 H (1.40-6.50) K/uL Lymph # (Auto) 2.29 (1.2-3.4) K/uL [place] # (Auto) 1.19 H (0.11-0.59) K/uL Eos # (Auto) 0.27 (0-0.50) K/uL Baso # (Auto) 0.09 (0-0.2) K/uL Reticulocyte # (0.02-0.10) 10^6/uL Immature Gran # (Auto) 0.15 (0.01-0.20) K/uL Peripher Smr Path Cons Haptoglobin 164 (43-212) mg/dL Sodium 137 (136-145) mmol/L Potassium 3.8 D (3.5-5.1) mmol/L Chloride 115 H (98-107) mmol/L Carbon Dioxide 17 L (21-32) mmol/L Anion Gap 5 (3-11) BUN 2 L (6-23) mg/dl Creatinine 0.51 L (0.6-1.2) mg/dl Est Cr Clr Drug Dosing 177.3 ml/min Est GFR ( Amer) 144.4 ml/min Est GFR (Non-Af Amer) 124.6 ml/min BUN/Creatinine Ratio 3.9 L (10-20) Glucose 86 (70-99(Fasting)) mg/dl Lactate (0.4-2.0) mmol/L Calcium 7.7 L (8.6-10.3) mg/dl Magnesium 2.2 (1.7-2.4) mg/dl Total Bilirubin 1.0 (0.2-1.0) mg/dl Direct Bilirubin 0.4 H (0-0.2) mg/dl AST 58 H (13-39) U/L ALT 19 (7-52) U/L Alkaline Phosphatase 266 H (34-104) U/L Lactate Dehydrogenase (86-244) U/L Troponin I High Sens 7.3 (0-14) pg/ml Total Protein 6.4 (6.0-8.3) gm/dl Albumin 2.9 L (3.4-5.0) gm/dl Procalcitonin (0-0.5) ng/ml TSH (0.300-4.500) uIu/ml Free T4 (0.61-1.60) ng/dl Urine Color Urine Appearance (Clear) Urine pH (4.5-7.5) Ur Specific [place] (1.000-1.030) Urine Protein (Negative) Urine Glucose (UA) (Negative) Urine Ketones (Negative) Urine Blood (Negative) Urine Nitrite (Negative) Urine Bilirubin (Negative) Urine Urobilinogen (Negative) Ur Leukocyte Esterase (Negative) Urine WBC (Auto) (0-5) /hpf Urine RBC (Auto) (0-4) /hpf U Hyaline Cast (Auto) (0-5) /lpf U Epithel Cells (Auto) (0-5) /lpf Urine Bacteria (Auto) (Negative) Ur Total Porphyrins Random Uroporphyrins I Random Uroporphyrin III U Rdm Heptacarboxylpor U Rndm Hexacarboxylpor U Rdm Pentacarboxylpor U Random Coproporphyr I U Rndm Coproporphyr III Ur Porphyrins Interp Stl C. cayetanensis PCR (NotDetected) Stool Rotavirus A PCR (NotDetected) Stl Adenov F 40/41 PCR (NotDetected) Stool Astrovirus (PCR) (NotDetected) Stool Campylobacter PCR (NotDetected) Stool Cryptosporidium PCR (NotDetected) Stl E.coli Shiga Tox PCR (NotDetected) Stl Enterotoxigenic E PCR (NotDetected) Stool EPEC (PCR) (NotDetected) Stool EAEC (PCR) (NotDetected) Stl E. histolytica PCR (NotDetected) Stool Giardia Lamblia PCR (NotDetected) Stool Salmonella PCR (NotDetected) Stool Sapovirus (PCR) (NotDetected) Stl P. shigelloides PCR (NotDetected) Stl Shigella/EIEC PCR (NotDetected) St Y.enterocolitica PCR (NotDetected) Stool Vibrio (PCR) (NotDetected) Stl Vibrio cholerae PCR (NotDetected) Stl Norovirus GI/GII PCR (NotDetected) U Codeine Confrm GC/MS (<50) ng/mL Ur Morphine (GC/MS) (<50) ng/mL Ur Hydrocodone (GC/MS) (<50) ng/mL Ur Norhydrocodone (<50) ng/mL Ur Noroxycodone (<50) ng/mL Urine Oxycodone (GC/MS) (<50) ng/mL U Oxymorphone GC/MS (<50) ng/mL Ur Hydromorphone (GC/MS) (<50) ng/mL U Marijuana THC Carboxy (<5) ng/mL Drug Screen Comment Direct Antiglob Test (Negative) EROS (IgG-AHG) (Negative) EROS, Polyspecific (Negative) EROS C3b, C3d 5 Min (Negative) 01/01/23 01/01/23 01/01/23 Range/Units 11:03 11:03 11:03 WBC (4.8-10.8) K/ul RBC (4.20-5.40) M/uL Hgb (12.0-16.0) g/dl Hct (37.0-47.0) % MCV (80.0-100.0) fL MCH (25.0-34.0) pg MCHC (32.0-36.0) g/dL RDW Std Deviation (36.4-46.3) fL RDW Coeff of Carmen (11.5-14.5) % Plt Count (130-400) K/uL MPV (9.4-12.4) fL Immature Gran % (Auto) % Neut % (Auto) % Lymph % (Auto) % [place] % (Auto) % Eos % (Auto) % Baso % (Auto) % Reticulocyte % (Auto) 3.6 H (0.5-2.0) % Neut # (Auto) (1.40-6.50) K/uL Lymph # (Auto) (1.2-3.4) K/uL [place] # (Auto) (0.11-0.59) K/uL Eos # (Auto) (0-0.50) K/uL Baso # (Auto) (0-0.2) K/uL Reticulocyte # 0.10 (0.02-0.10) 10^6/uL Immature Gran # (Auto) (0.01-0.20) K/uL Peripher Smr Path Cons Haptoglobin (43-212) mg/dL Sodium (136-145) mmol/L Potassium (3.5-5.1) mmol/L Chloride (98-107) mmol/L Carbon Dioxide (21-32) mmol/L Anion Gap (3-11) BUN (6-23) mg/dl Creatinine (0.6-1.2) mg/dl Est Cr Clr Drug Dosing ml/min Est GFR ( Amer) ml/min Est GFR (Non-Af Amer) ml/min BUN/Creatinine Ratio (10-20) Glucose (70-99(Fasting)) mg/dl Lactate (0.4-2.0) mmol/L Calcium (8.6-10.3) mg/dl Magnesium (1.7-2.4) mg/dl Total Bilirubin (0.2-1.0) mg/dl Direct Bilirubin (0-0.2) mg/dl AST (13-39) U/L ALT (7-52) U/L Alkaline Phosphatase (34-104) U/L Lactate Dehydrogenase 125 (86-244) U/L Troponin I High Sens (0-14) pg/ml Total Protein (6.0-8.3) gm/dl Albumin (3.4-5.0) gm/dl Procalcitonin (0-0.5) ng/ml TSH 9.484 H (0.300-4.500) uIu/ml Free T4 1.24 (0.61-1.60) ng/dl Urine Color Urine Appearance (Clear) Urine pH (4.5-7.5) Ur Specific [place] (1.000-1.030) Urine Protein (Negative) Urine Glucose (UA) (Negative) Urine Ketones (Negative) Urine Blood (Negative) Urine Nitrite (Negative) Urine Bilirubin (Negative) Urine Urobilinogen (Negative) Ur Leukocyte Esterase (Negative) Urine WBC (Auto) (0-5) /hpf Urine RBC (Auto) (0-4) /hpf U Hyaline Cast (Auto) (0-5) /lpf U Epithel Cells (Auto) (0-5) /lpf Urine Bacteria (Auto) (Negative) Ur Total Porphyrins Random Uroporphyrins I Random Uroporphyrin III U Rdm Heptacarboxylpor U Rndm Hexacarboxylpor U Rdm Pentacarboxylpor U Random Coproporphyr I U Rndm Coproporphyr III Ur Porphyrins Interp Stl C. cayetanensis PCR (NotDetected) Stool Rotavirus A PCR (NotDetected) Stl Adenov F 40/41 PCR (NotDetected) Stool Astrovirus (PCR) (NotDetected) Stool Campylobacter PCR (NotDetected) Stool Cryptosporidium PCR (NotDetected) Stl E.coli Shiga Tox PCR (NotDetected) Stl Enterotoxigenic E PCR (NotDetected) Stool EPEC (PCR) (NotDetected) Stool EAEC (PCR) (NotDetected) Stl E. histolytica PCR (NotDetected) Stool Giardia Lamblia PCR (NotDetected) Stool Salmonella PCR (NotDetected) Stool Sapovirus (PCR) (NotDetected) Stl P. shigelloides PCR (NotDetected) Stl Shigella/EIEC PCR (NotDetected) St Y.enterocolitica PCR (NotDetected) Stool Vibrio (PCR) (NotDetected) Stl Vibrio cholerae PCR (NotDetected) Stl Norovirus GI/GII PCR (NotDetected) U Codeine Confrm GC/MS (<50) ng/mL Ur Morphine (GC/MS) (<50) ng/mL Ur Hydrocodone (GC/MS) (<50) ng/mL Ur Norhydrocodone (<50) ng/mL Ur Noroxycodone (<50) ng/mL Urine Oxycodone (GC/MS) (<50) ng/mL U Oxymorphone GC/MS (<50) ng/mL Ur Hydromorphone (GC/MS) (<50) ng/mL U Marijuana THC Carboxy (<5) ng/mL Drug Screen Comment Direct Antiglob Test (Negative) EROS (IgG-AHG) (Negative) EROS, Polyspecific (Negative) EROS C3b, C3d 5 Min (Negative) 01/01/23 12/31/22 Range/Units 11:03 10:50 WBC (4.8-10.8) K/ul RBC (4.20-5.40) M/uL Hgb (12.0-16.0) g/dl Hct (37.0-47.0) % MCV (80.0-100.0) fL MCH (25.0-34.0) pg MCHC (32.0-36.0) g/dL RDW Std Deviation (36.4-46.3) fL RDW Coeff of Carmen (11.5-14.5) % Plt Count (130-400) K/uL MPV (9.4-12.4) fL Immature Gran % (Auto) % Neut % (Auto) % Lymph % (Auto) % [place] % (Auto) % Eos % (Auto) % Baso % (Auto) % Reticulocyte % (Auto) (0.5-2.0) % Neut # (Auto) (1.40-6.50) K/uL Lymph # (Auto) (1.2-3.4) K/uL [place] # (Auto) (0.11-0.59) K/uL Eos # (Auto) (0-0.50) K/uL Baso # (Auto) (0-0.2) K/uL Reticulocyte # (0.02-0.10) 10^6/uL Immature Gran # (Auto) (0.01-0.20) K/uL Peripher Smr Path Cons Haptoglobin (43-212) mg/dL Sodium (136-145) mmol/L Potassium (3.5-5.1) mmol/L Chloride (98-107) mmol/L Carbon Dioxide (21-32) mmol/L Anion Gap (3-11) BUN (6-23) mg/dl Creatinine (0.6-1.2) mg/dl Est Cr Clr Drug Dosing ml/min Est GFR ( Amer) ml/min Est GFR (Non-Af Amer) ml/min BUN/Creatinine Ratio (10-20) Glucose (70-99(Fasting)) mg/dl Lactate (0.4-2.0) mmol/L Calcium (8.6-10.3) mg/dl Magnesium (1.7-2.4) mg/dl Total Bilirubin (0.2-1.0) mg/dl Direct Bilirubin (0-0.2) mg/dl AST (13-39) U/L ALT (7-52) U/L Alkaline Phosphatase (34-104) U/L Lactate Dehydrogenase (86-244) U/L Troponin I High Sens (0-14) pg/ml Total Protein (6.0-8.3) gm/dl Albumin (3.4-5.0) gm/dl Procalcitonin (0-0.5) ng/ml TSH (0.300-4.500) uIu/ml Free T4 (0.61-1.60) ng/dl Urine Color Urine Appearance (Clear) Urine pH (4.5-7.5) Ur Specific [place] (1.000-1.030) Urine Protein (Negative) Urine Glucose (UA) (Negative) Urine Ketones (Negative) Urine Blood (Negative) Urine Nitrite (Negative) Urine Bilirubin (Negative) Urine Urobilinogen (Negative) Ur Leukocyte Esterase (Negative) Urine WBC (Auto) (0-5) /hpf Urine RBC (Auto) (0-4) /hpf U Hyaline Cast (Auto) (0-5) /lpf U Epithel Cells (Auto) (0-5) /lpf Urine Bacteria (Auto) (Negative) Ur Total Porphyrins Random Uroporphyrins I Random Uroporphyrin III U Rdm Heptacarboxylpor U Rndm Hexacarboxylpor U Rdm Pentacarboxylpor U Random Coproporphyr I U Rndm Coproporphyr III Ur Porphyrins Interp Stl C. cayetanensis PCR (NotDetected) Stool Rotavirus A PCR (NotDetected) Stl Adenov F 40/41 PCR (NotDetected) Stool Astrovirus (PCR) (NotDetected) Stool Campylobacter PCR (NotDetected) Stool Cryptosporidium PCR (NotDetected) Stl E.coli Shiga Tox PCR (NotDetected) Stl Enterotoxigenic E PCR (NotDetected) Stool EPEC (PCR) (NotDetected) Stool EAEC (PCR) (NotDetected) Stl E. histolytica PCR (NotDetected) Stool Giardia Lamblia PCR (NotDetected) Stool Salmonella PCR (NotDetected) Stool Sapovirus (PCR) (NotDetected) Stl P. shigelloides PCR (NotDetected) Stl Shigella/EIEC PCR (NotDetected) St Y.enterocolitica PCR (NotDetected) Stool Vibrio (PCR) (NotDetected) Stl Vibrio cholerae PCR (NotDetected) Stl Norovirus GI/GII PCR (NotDetected) U Codeine Confrm GC/MS NEGATIVE (<50) ng/mL Ur Morphine (GC/MS) NEGATIVE (<50) ng/mL Ur Hydrocodone (GC/MS) NEGATIVE (<50) ng/mL Ur Norhydrocodone NEGATIVE (<50) ng/mL Ur Noroxycodone NEGATIVE (<50) ng/mL Urine Oxycodone (GC/MS) NEGATIVE (<50) ng/mL U Oxymorphone GC/MS NEGATIVE (<50) ng/mL Ur Hydromorphone (GC/MS) 565 H (<50) ng/mL U Marijuana THC Carboxy 2308 H (<5) ng/mL Drug Screen Comment SEE NOTE Direct Antiglob Test Negative (Negative) EROS (IgG-AHG) Neg (Negative) EROS, Polyspecific Neg (Negative) EROS C3b, C3d 5 Min Neg (Negative) Diagnostic Findings Exam(s): CTA ABDOMEN + PELVIS With Contrast IV Amt: 112ml Optiray 320 EXAM: CT Angiography Abdomen and Pelvis With Intravenous Contrast CLINICAL HISTORY: Reason for exam: worsening abdominal exam, r/o mesen ischemia. TECHNIQUE: Axial computed tomographic angiography images of the abdomen and pelvis with intravenous contrast. Automated exposure control was utilized for the study. A dose lowering technique was utilized adhering to the principles of ALARA. MIP reconstructed images were created and reviewed. CONTRAST: Patient received 112ml Optiray 320 of IV contrast COMPARISON: No relevant prior studies available. FINDINGS: Lung bases are clear. There is no aortic aneurysm, dissection, or stenosis. Celiac artery and its branches are adequately patent. SMA is adequately patent. Single bilateral renal arteries are adequately patent. MARI is adequately patent. Bilateral common, external, and internal iliac arteries are adequately patent. There is no adenopathy. There is mild pelvic ascites. There is no free air. There is severe hepatomegaly. Right hepatic lobe measures 36 cm in the midclavicular line. Diffuse and heterogeneous fatty infiltration is present. Gallbladder is surgically absent. There is no biliary dilatation. Spleen, pancreas, adrenal glands, and kidneys are within normal limits. Appendix is surgically absent. There is no bowel obstruction or inflammatory change. There is distal colonic diverticulosis without diverticulitis. Uterus and urinary bladder are unremarkable. Skeleton is intact. IMPRESSION: 1. Aorta and its branch vessels are adequately patent. 2. Severe hepatomegaly and steatosis. CT SCAN OF THE ABDOMEN AND PELVIS WITH IV CONTRAST CLINICAL HISTORY: Epigastric abdominal pain. COMPARISON STUDY: Abdominal CT dated 09/17/2022. TECHNIQUE: Following the IV administration of 89 cc of Optiray 320, CT scan of the abdomen and pelvis is performed from the lung bases to the proximal femora. Images are reviewed in the axial, sagittal, and coronal planes. IV contrast was administered without complication. A dose lowering technique was utilized adhering to the principles of ALARA. CT DOSE: 1130.11 mGy.cm FINDINGS: Lung bases: The heart is enlarged and without pericardial effusion. The lung bases are clear. There is a small hiatal hernia. Liver: The contrast-enhanced liver is markedly enlarged, measuring 35.2 cm in length. The liver demonstrates diffusely diminished attenuation indicating steatosis.. There is no intrahepatic biliary ductal dilatation. The hepatic veins and portal veins are patent. Gallbladder: Surgically absent noting clips in the gallbladder fossa. Spleen: The spleen is enlarged, measuring 18.1 cm in length. Pancreas: Unremarkable. Adrenal glands: Unremarkable. Kidneys: The contrast enhanced kidneys are normal in size and without hydronephrosis. The kidneys enhance symmetrically. A 1.7 cm complex cystic lesion of the right kidney seen previously is less apparent on today's examination. This is best seen on axial image #51 of 103. Abdominal vasculature: The abdominal aorta is normal in course and caliber. Bowel: There are scattered colonic diverticula without CT evidence of acute diverticulitis. No bowel obstruction is seen. The appendix is not identified and reported surgically absent. Peritoneum: There is no intraperitoneal free air or abdominal ascites. There is a fat-containing umbilical hernia. Lymphadenopathy: None. Pelvic viscera: The bladder, uterus, and adnexa are normal as visualized noting bilateral ovarian follicles. Skeletal structures: No lytic or blastic lesions are seen. IMPRESSION: 1. No acute infectious or inflammatory findings are identified in the abdomen or pelvis. 2. Marked hepatosplenomegaly with evidence of hepatic steatosis. 3. Cardiomegaly. 4. The complex right renal lesion seen previously is much less apparent than on the prior examination. This remains indeterminant. 5. Additional findings as above. (1) Abdominal pain Abdominal location: unspecified location Qualified Code(s): R10.9 - Unspecified abdominal pain
[2023-01-02] MEDS: CHOLESTYRAMINE LIGHT 4 GM PKT PO SCH (10:57)
[2023-01-02 10:58] LABS: Codeine Urine NEGATIVE ng/mL (<50); Hydrocodone Urine NEGATIVE ng/mL (<50); Hydromor Urine 565 ng/mL (<50); Marijuana Quant, GCMS Urine 2308 ng/mL (<5); Morphine Urine NEGATIVE ng/mL (<50); Norhydrocodone Conf Ur NEGATIVE ng/mL (<50); Noroxycodone Urine NEGATIVE ng/mL (<50); Oxycodone Urine NEGATIVE ng/mL (<50); Oxymorph Urine NEGATIVE ng/mL (<50)
[2023-01-02] MEDS ORDERED: ePHEDrine sulfate 50 MG/ML AMP IV PRN (11:39)
[2023-01-02] MEDS ORDERED: ONDANSETRON INJ 2 MG/ML 2 ML VIAL IV PRN (11:39)
[2023-01-02] MEDS ORDERED: ATROPINE SULFATE 0.1 MG/ML 10ML SYR IV PRN (11:39)
--- NOTE | 2023-01-02 11:39 | Anesthesiology Consultation ---
Date of Service January 02, 2023 Assessment & Plan Chart Review Chart Review: Acceptable Risk for Surgery and Patient NOT seen in Pre Admission Testing Consults Requested none ASA ASA3 Proposed Anesthesia Anesthesia Type: General Risk / Benefits Reviewed With: PT / POA / Parent / Guardian, Accepts Plan and Informed Consent Obtained History Surgery Operation Date: 01/02/23 08:10 Proposed Procedures p Endoscopic Ultrasonography Upper - Maricarmen Ornelas, s Esophagogastroduodenoscopy - Maricarmen Ornelas, s Endoscopic Retrograde Cholangiopancreato - Maricarmen Ornelas, Height/Weight Height: 5 ft 5 in Weight: 96.1 kg Allergies Allergy/AdvReac Type Severity Reaction Status Date / Time nut - unspecified Allergy Severe Anaphylaxis Verified 01/02/23 11:28 Penicillins Allergy Severe Difficulty Verified 01/02/23 11:28 Breathing tree nut Allergy Severe Anaphylaxis Verified 01/02/23 11:28 morphine Allergy Intermediate Hives Verified 01/02/23 11:28 mushroom Allergy Intermediate Hives Verified 01/02/23 11:28 Medications Home Medications Medication Instructions Recorded Confirmed Last Taken epinephrine 0.3 mg/0.3 mL 0.3 mg IM DIRECTED PRN Allergic 05/13/18 12/30/22 01/26/21 injection, auto-injector (EpiPen) Reaction hydrochlorothiazide 25 mg tablet 25 mg PO QAM 06/19/22 12/30/22 Unknown lisinopril 10 mg tablet 10 mg PO QAM 06/19/22 12/30/22 Unknown multivitamin with folic acid 400 1 tab PO QAM #30 tabs 09/09/22 12/30/22 Unknown mcg tablet (Daily-Rajendra (with folic acid)) Active Medications Generic Name Dose Route Start Last Admin Trade Name Freq PRN Reason Stop Dose Admin Cholestyramine Resin 2 gm 12/31/22 11:00 01/02/23 10:57 Cholestyramine Light 4 Gm Pkt PO 01/30/23 10:59 Not Given DAILY@1100 VANIA Cyanocobalamin 1,000 mcg 01/01/23 10:30 01/02/23 08:40 Cyanocobalamin 1000 Mcg/Ml Vial IM 01/07/23 09:01 1,000 mcg QAM VANIA Administration Dicyclomine HCl 10 mg 12/31/22 11:30 01/02/23 10:58 Dicyclomine Hcl 10 Mg Cap PO 01/30/23 11:29 Not Given AC VANIA Enoxaparin Sodium 40 mg 12/31/22 11:00 01/02/23 08:34 Enoxaparin Inj 40 Mg/0.4 Ml Syr SQ 01/30/23 10:59 Not Given QAM VANIA Folic Acid 1 mg 01/01/23 09:00 01/02/23 08:41 Folic Acid 1 Mg Tab PO 01/31/23 08:59 1 mg QAM VANIA Administration Gabapentin 600 mg 12/31/22 22:00 01/01/23 05:04 Gabapentin 600 Mg Tab PO 600 mg Q8H VANIA Administration Hydrochlorothiazide 25 mg 12/31/22 09:00 01/01/23 08:55 Hydrochlorothiazide 25 Mg Tab PO 01/30/23 08:59 Not Given QAM VANIA Hydromorphone HCl 0.5 mg 01/01/23 16:29 01/02/23 11:16 Hydromorphone Inj 0.5 Mg/0.5 Ml Syr IV 01/14/23 00:33 0.5 mg Q2H PRN Administration severe breakthrough pain Ciprofloxacin 400 mg in 200 mls @ 100 mls/hr 01/01/23 17:00 01/02/23 08:31 Cipro / D5w IV 01/11/23 16:59 Infused Q12H VANIA Infusion Protocol Metronidazole 500 mg in 100 mls @ 100 mls/hr 01/01/23 17:00 01/02/23 09:40 Flagyl IV 01/11/23 16:59 Infused Q8H VANIA Infusion Lisinopril 10 mg 12/31/22 09:00 01/01/23 08:55 Lisinopril 10 Mg Tab PO 01/30/23 08:59 Not Given QAM VANIA Lorazepam 0.5 mg 01/01/23 10:18 01/01/23 20:51 Lorazepam 0.5 Mg Tab PO 01/31/23 10:17 0.5 mg UD PRN Administration AWSS score 6+ Miscellaneous 1 each 12/31/22 08:59 01/02/23 08:41 Remove Nicoderm Patch N/A 01/30/23 08:58 1 each DAILY@0859 VANIA Administration Multivitamins 1 tab 12/31/22 09:00 01/02/23 08:41 Multivitamin Tab PO 01/30/23 08:59 1 tab QAM VANIA Administration Nicotine 21 mg 12/31/22 09:00 01/02/23 08:41 Nicotine 21 Mg/24 Hr Tdsy TD 01/30/23 08:59 21 mg DAILY VANIA Administration Thiamine HCl 100 mg 01/01/23 09:00 01/02/23 08:40 Thiamine Hcl 100 Mg Tab PO 01/31/23 08:59 100 mg QAM VANIA Administration NPO Date Last Intake of Fluids: 01/02/23 Time Last Intake of Fluids: 08:40 Date Last Intake of Solids: 01/01/23 Time Last Intake of Solids: 12:30 Past Medical History Medical History Abdominal pain Acute hyponatremia Alcohol abuse, unspecified (07/15/12) Anxiety state, unspecified (06/16/11) Bipolar disorder Encounter for pre-operative examination Headache Hypertension (07/15/12) Hypokalemia Hypomagnesemia Overdose of antipsychotic TIA (transient ischemic attack) Exercise / Class Metabolic Activity II 4-5 Yardwork/Stairs/Walk up hill Past Family History Family History Father Diabetes Hypertension Other Breast cancer No pertinent family history Past Surgical History Surgical History Cholecystostomy care History of appendectomy (12/25/12) History of dental surgery Previous section 2007,2008,2009,2012 Tubal ligation status Past Anesthesia History No Hx of Anesthesia Complications and No Family Hx of Anesthesia Complications History of PONV No Hx of PONV and No Hx of Motion Sickness Social History Smoking Status: Current every day smoker tobacco type: cigarettes Smoking cigarettes per day: more than 1/2 a pack daily Do You Dip or Chew Tobacco: No Hx Alcohol Use: Yes Alcohol type: hard liquor alcohol intake frequency: 3 or more drinks per day Hx Substance Use: No substance use type: marijuana and crack/cocaine Substance Use Type Other:: medical marijuana Last Used Substance: Unknown Last Used Substance Other:: Medical Marijuana yesterday. Hallucinogens 10 years ago Physical Exam Vital Signs Last Vital Signs Temp 36.9 C 01/02/23 11:30 Pulse 95 H 01/02/23 11:30 Resp 20 01/02/23 11:30 BP 119/78 01/02/23 11:30 Pulse Ox 98 01/02/23 11:30 O2 Del Method Room Air 01/02/23 11:30 ENMT Mouth: no dentition abnormality Thyromental Distance: > or= 3.5 Finger Breadths Mallampati Class: II Neck normal visual inspection and + thick neck Respiratory normal respiratory effort Auscultation: lungs clear to auscultation bilaterally Cardiovascular Rate/Rhythm: regular rate and regular rhythm Psychiatric Orientation: alert Testing Laboratory Results 01/02/23 07:05 01/02/23 07:05 Urine Color Yellow 01/01/23 18:30 Urine Appearance Clear (Clear) 01/01/23 18:30 Urine pH 6.5 (4.5-7.5) 01/01/23 18:30 Ur Specific [place] 1.006 (1.000-1.030) 01/01/23 18:30 Urine Protein Negative (Negative) 01/01/23 18:30 Urine Glucose (UA) Negative (Negative) 01/01/23 18:30 Urine Ketones Negative (Negative) 01/01/23 18:30 Urine Nitrite Negative (Negative) 01/01/23 18:30 Ur Leukocyte Esterase Trace (Negative) H 01/01/23 18:30 Urine WBC (Auto) 1-5 /hpf (0-5) 01/01/23 18:30 Urine RBC (Auto) 0-4 /hpf (0-4) 01/01/23 18:30 U Hyaline Cast (Auto) 0 /lpf (0-5) 01/01/23 18:30 U Epithel Cells (Auto) >30 /lpf (0-5) H 01/01/23 18:30 Urine Bacteria (Auto) Negative (Negative) 01/01/23 18:30 12/30/22 19:11 Aerobic Blood Culture - Preliminary Blood No growth in Aerobic bottle after 48 hours. Anaerobic Blood Culture - Preliminary No growth in Anaerobic bottle after 48 hours. 12/30/22 19:02 Aerobic Blood Culture - Preliminary Blood No growth in Aerobic bottle after 48 hours. Anaerobic Blood Culture - Preliminary No growth in Anaerobic bottle after 48 hours. 12/30/22 Unknown Urine Culture - Final Urine,Clean Catch More than three types of organisms present, all moderate counts mixed probable skin kenneth. No further identifications or sensitivities to follow. 12/30/22 18:46 POC Ur Test NEG
[2023-01-02] MEDS ORDERED: PROPOFOL IV EMULSION 10 MG/ML 20 ML VIAL IV ONE (12:01)
[2023-01-02] MEDS ORDERED: MIDAZOLAM HCL 1 MG/ML 2ML VIAL ONE (12:01)
[2023-01-02] MEDS ORDERED: ONDANSETRON INJ 2 MG/ML 2 ML VIAL ONE (12:01)
[2023-01-02] MEDS ORDERED: DEXAMETHASONE SOD INJ 4 MG/ML VIAL ONE (12:01)
[2023-01-02] MEDS ORDERED: fentaNYL citrate PF 100 MCG/2 ML VIAL ONE (12:01)
[2023-01-02] MEDS ORDERED: LIDOCAINE 2% 2 ML VIAL/AMP(20MG/ML) INFIL ONE (12:01)
[2023-01-02] MEDS ORDERED: ROCURONIUM BROMIDE 10 MG/ML 5 ML VIAL IV ONE (12:04)
--- NOTE | 2023-01-02 12:31 | GI REPORT ---
Patient Name: Brigette Patel Procedure Date: 01/02/2023 12:14 PM Date of : 1985 Admit Type: Inpatient Age: 37 Gender: Female Attending MD: Maricarmen Ornelas DO, Procedure: Upper GI endoscopy Providers: Maricarmen Ornelas DO Referring MD: Lenin Ledezma Md Indications: Epigastric abdominal pain Medicines: Monitored Anesthesia Care Complications: No immediate complications. Estimated blood loss: Minimal. Estimated Blood Loss: Estimated blood loss was minimal. Procedure: Pre-Anesthesia Assessment: - Prior to the procedure, a History and Physical was performed, and patient medications, allergies and sensitivities were reviewed. The patient's tolerance of previous anesthesia was reviewed. - The risks and benefits of the procedure and the sedation options and risks were discussed with the patient. All questions were answered and informed consent was obtained. - Patient identification and proposed procedure were verified prior to the procedure by the physician, the nurse and the slubber runner. The procedure was verified in the procedure room. - Pre-procedure physical examination revealed no contraindications to sedation. - ASA Grade Assessment: II - A patient with mild systemic disease. - After reviewing the risks and benefits, the patient was deemed in satisfactory condition to undergo the procedure. - The anesthesia plan was to use monitored anesthesia care (MAC). - Immediately prior to administration of medications, the patient was re-assessed for adequacy to receive sedatives. - The heart rate, respiratory rate, oxygen saturations, blood pressure, adequacy of pulmonary ventilation, and response to care were monitored throughout the procedure. - The physical status of the patient was re-assessed after the procedure. After obtaining informed consent, the endoscope was passed under direct vision. Throughout the procedure, the patient's blood pressure, pulse, and oxygen saturations were monitored continuously. The Endoscope was introduced through the mouth, and advanced to the third part of duodenum. The upper GI endoscopy was accomplished without difficulty. The patient tolerated the procedure well. Findings: The examined esophagus was normal. The Z-line was regular and was found 35 cm from the incisors. Mild portal hypertensive gastropathy was found in the entire examined stomach. The examined duodenum was normal. Impression: - Normal esophagus. - Z-line regular, 35 cm from the incisors. - Portal hypertensive gastropathy. - Normal examined duodenum. - No specimens collected. Recommendation: - Perform an upper endoscopic ultrasound (UEUS) today. - Repeat upper endoscopy in 1.5 years for screening purposes. Maricarmen Ornelas D.O. Maricarmen Ornelas, 01/02/2023 12:31:23 PM This report has been signed electronically. Note Initiated On: 01/02/2023 12:14 PM Number of Addenda: 0 I attest to the content of the Intraoperative Record and orders documented therein, exceptions below {[id number]}
[2023-01-02] MEDS ORDERED: SUCCINYLCHOLINE CHLORIDE 20 MG/ML 10 ML VIAL IV ONE (12:35)
[2023-01-02] MEDS ORDERED: SUGAMMADEX SODIUM 200 MG/2 ML VIAL IV ONE (12:38)
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
--- NOTE | 2023-01-02 12:46 | Post Operative Brief Note ---
Immediate Post Op Note v1 Date of Surgery January 02, 2023 Pre & Post Diagnosis Operation Date: 01/02/23 08:10 Portal hypertensive gastropathy Normal common bile duct Fatty infiltration of the liver I identified the patient and participated in the time-out.: Yes Procedure Operation Date: 01/02/23 08:10 Upper Endoscopy Endoscopic Ultrasound Surgeon Maricarmen Ornelas DO [employer] none Estimated Blood Loss 0 Findings Consistent with Post-Op Diagnosis
--- NOTE | 2023-01-02 12:48 | Communication Note ---
Date of Service: January 02, 2023 Patient underwent upper endoscopy and endoscopic ultrasound today to evaluate for history of abdominal discomfort was found to have portal hypertensive gastr opathy, the bile duct was without evidence of choledocholithiasis. The patient has fatty infiltration of the liver likely related to her alcohol abuse Recomendations: Advance diet as tolerated Patient should be counseled to avoid use of cannabis in addition to alcohol Please call with any questions or concerns GI to sign off
[2023-01-02] MEDS: fentaNYL citrate PF 100 MCG/2 ML VIAL IV PRN ×2 (12:59→13:07)
--- NOTE | 2023-01-02 13:00 | GI REPORT ---
Patient Name: Brigette Patel Procedure Date: 01/02/2023 12:15 PM Date of : 1985 Admit Type: Inpatient Age: 37 Gender: Female Attending MD: Maricarmen Ornelas DO, Procedure: Upper EUS Providers: Maricarmen Ornelas DO Referring MD: Lenin Ledezma Md Indications: Elevated liver enzymes, Suspected choledocholithiasis Medicines: General Anesthesia Complications: No immediate complications. Estimated blood loss: Minimal. Estimated Blood Loss: Estimated blood loss was minimal. Procedure: Pre-Anesthesia Assessment: - Prior to the procedure, a History and Physical was performed, and patient medications, allergies and sensitivities were reviewed. The patient's tolerance of previous anesthesia was reviewed. - The risks and benefits of the procedure and the sedation options and risks were discussed with the patient. All questions were answered and informed consent was obtained. - Patient identification and proposed procedure were verified prior to the procedure by the physician, the nurse and the bedspread inspector. The procedure was verified in the procedure room. - Pre-procedure physical examination revealed no contraindications to sedation. - ASA Grade Assessment: III - A patient with severe systemic disease. - After reviewing the risks and benefits, the patient was deemed in satisfactory condition to undergo the procedure. - The anesthesia plan was to use monitored anesthesia care (MAC). - Immediately prior to administration of medications, the patient was re-assessed for adequacy to receive sedatives. - The heart rate, respiratory rate, oxygen saturations, blood pressure, adequacy of pulmonary ventilation, and response to care were monitored throughout the procedure. - The physical status of the patient was re-assessed after the procedure. After obtaining informed consent, the endoscope was passed under direct vision. Throughout the procedure, the patient's blood pressure, pulse, and oxygen saturations were monitored continuously. The Endosonoscope was introduced through the mouth, and advanced to the third part of duodenum. The upper EUS was accomplished without difficulty. The patient tolerated the procedure well. Findings: ENDOSONOGRAPHIC FINDING: : There was no sign of significant endosonographic abnormality in the ampulla. No masses were identified. Evidence of a previous cholecystectomy was identified endosonographically. There was minimal dilation in the common bile duct which measured up to 7 mm. There was diffuse abnormal echotexture in the visualized portion of the liver. This was characterized by a hyperechoic appearance. Pancreatic parenchymal abnormalities were noted in the entire pancreas. These consisted of diffuse echogenicity and lobularity without honeycombing. There was no sign of significant endosonographic abnormality in the left adrenal gland. No adrenal gland enlargement was identified. A few benign-appearing lymph nodes were visualized in the ant hepatis region. The largest measured 8 mm by 6 mm in maximal cross-sectional diameter. The nodes were oval, hypoechoic and had poorly defined margins. Impression: - There was no sign of significant pathology in the ampulla. - Evidence of a cholecystectomy. - There was dilation in the common bile duct which measured up to 7 mm. This is consistent with the patient's prior cholecystectomy. - There was diffuse abnormal echotexture in the visualized portion of the liver. This was characterized by a hyperechoic appearance. - Pancreatic parenchymal abnormalities consisting of diffuse echogenicity and lobularity were noted in the entire pancreas. This is likely related to underlying alcohol abuse. - Endosonographic images of the left adrenal gland were unremarkable. - A few benign lymph nodes were visualized in the ant hepatis region. - No specimens collected. Recommendation: - [facility]. - Advance diet as tolerated today. - Observe patient's clinical course. Maricarmen Ornelas D.O. Maricarmen Ornelas, DO 01/02/2023 1:00:31 PM This report has been signed electronically. Note Initiated On: 01/02/2023 12:15 PM Number of Addenda: 0 I attest to the content of the Intraoperative Record and orders documented therein, exceptions below {[id number]}
--- NOTE | 2023-01-02 13:38 | Anesthesiology Progress Note ---
Date of Service January 02, 2023 Anesthesia Post Procedure Vital Signs Vital Signs: Temp Pulse Pulse Pulse Resp BP BP 01/02/23 13:20 90 21 116/69 01/02/23 13:10 94 H 16 101/76 01/02/23 13:00 96 H 21 127/70 01/02/23 13:30 36.2 C L 93 H 20 108/76 01/02/23 12:52 36.2 C L 97 H 21 107/73 01/02/23 11:30 36.9 C 95 H 20 119/78 01/02/23 10:57 36.9 C 92 H 18 114/77 01/02/23 07:30 94 H 01/02/23 08:01 37.0 C 95 H 20 112/78 01/02/23 05:33 120/78 01/02/23 03:00 37.2 C 92 H 18 98/63 L 01/02/23 00:44 113 H 01/01/23 23:09 37.1 C 99 H 18 113/75 01/01/23 20:45 37.4 C 96 H 18 119/83 01/01/23 19:00 37.6 C H 107 H 18 122/78 01/01/23 19:30 37.6 C H 106 H 18 110/68 01/01/23 18:45 37.0 C 108 H 16 136/66 01/01/23 18:30 36.7 C 99 H 16 132/76 01/01/23 18:15 36.7 C 104 H 16 114/76 01/01/23 18:00 36.8 C 101 H 18 128/74 01/01/23 17:45 36.5 C 107 H 14 118/64 01/01/23 17:30 36.4 C L 97 H 18 128/64 01/01/23 16:53 36.5 C 104 H 16 122/68 01/01/23 18:39 37.2 C 107 H 20 117/75 01/01/23 17:15 36.8 C 104 H 18 126/78 01/01/23 17:00 37.0 C 105 H 18 128/84 01/01/23 15:47 107 H 01/01/23 14:54 37.1 C 104 H 20 105/72 Pulse Ox O2 Del Method O2 Flow Rate 01/02/23 13:20 94 Room Air 05/19/23 13:10 95 Room Air 01/02/23 13:00 96 Oxymask 4 01/02/23 13:30 95 Room Air 01/02/23 12:52 95 Oxymask 8 01/02/23 11:30 98 Room Air 01/02/23 10:57 96 Room Air 01/02/23 07:30 01/02/23 08:01 96 Room Air 01/02/23 05:33 01/02/23 03:00 95 Room Air 01/02/23 00:44 01/01/23 23:09 92 Room Air 01/01/23 20:45 98 Room Air 01/01/23 19:00 95 Room Air 01/01/23 19:30 96 Room Air 01/01/23 18:45 95 Room Air 01/01/23 18:30 96 Room Air 01/01/23 18:15 96 Room Air 01/01/23 18:00 95 Room Air 01/01/23 17:45 94 Room Air 01/01/23 17:30 96 Room Air 01/01/23 16:53 96 Room Air 01/01/23 18:39 96 Room Air 01/01/23 17:15 97 Room Air 01/01/23 17:00 96 Room Air 01/01/23 15:47 01/01/23 14:54 95 Room Air Pain Intensity Right Upper Abdomen: Pain Intensity: 9 Throat: Pain Intensity: 1 Transfer of Care Handoff Completed per policy Notes Mental Status: alert / awake / arousable Patient Amnestic to Procedure: Yes Nausea / Vomiting: adequately controlled Pain: adequately controlled Airway Patency, RR, SpO2: stable & adequate BP & HR: stable & adequate Hydration State: stable & adequate Anesthetic Complications: no major complications apparent
[2023-01-02] MEDS ORDERED: EPINEPHrine INJ 1 MG/ML AMP IM PRN (13:57)
[2023-01-02] MEDS: GABAPENTIN 600 MG TAB PO SCH ×2 (14:56→17:51)
[2023-01-02] MEDS ORDERED: traMADol HCL 50 MG TABLET PO PRN (14:59)
--- NOTE | 2023-01-02 15:23 | Electrocardiogram Report ---
Test Reason : Blood Pressure : / mmHG Vent. Rate : 103 BPM Atrial Rate : 103 BPM P-R Int : 162 ms QRS Dur : 098 ms QT Int : 350 ms P-R-T Axes : 060 010 031 degrees QTc Int : 458 ms Sinus tachycardia Low voltage QRS Borderline ECG When compared with ECG of 31-DEC-2022 09:53, No significant change was found Confirmed by Zeferino Salazar ([id number]) on 01/02/2023 3:23:32 PM Referred By: REFERRED SELF Confirmed By:Dl Salazar
--- NOTE | 2023-01-02 16:16 | Hospitalist Progress Note ---
Date of Service January 02, 2023 Assessment & Plan (1) Sepsis: Plan: unclear if patient has sepsis but already on empiric antibiotic. Leucocytosis has been chronic since Mar 2022 and evaluated by hemon for MPD during recent admission. Blood clx on adm negative, repeat from yesterday pending. Urine with trichomonas but already on flagyl. Procal trended down, lactate improved. Seen by GI and surgery team. CT and endoscopy already done. (2) Abdominal pain: Plan: Unclear cause- ongoing issue for many months now with prior admission CT scan A/P reveals fatty liver and patent portal veins, alcohol level was 137 on arrival so alcohol use may be contributing to ongoing pain EGD today with portal hypertensive gastropathy GI and Surgery following Continue conservative management for now EGD- There was no sign of significant pathology in the ampulla. - Evidence of a cholecystectomy. - There was dilation in the common bile duct which mayda ured up to 7 mm. This is consistent with the patient's prior cholecystectomy. - There was diffuse abnormal echotexture in the visualized portion of the liver. This was characterized by a hyperechoic appearance. - Pancreatic parenchymal abnormalities consisting of diffuse echogenicity and lobularity were noted in the entire pancreas. This is likely related to underlying alcohol abuse. - Endosonographic images of the left adrenal gland were unremarkable. - A few benign lymph nodes were visualized in the ant hepatis region. - No specimens collected. CTA abd pelvis- 1. Aorta and its branch vessels are adequately patent. 2. Severe hepatomegaly and steatosis. CT chest- No acute or significant findings. (3) Lactic acidemia: Plan: Recheck in am (4) Alcohol abuse: Plan: Presented intoxicated. Alc level elevated. Monitor for withdrawal. Patient reports wanting to quit, and has been to rehab in the past. Resume gabapentin taper, folate, thiamine (5) Chronic diarrhea: Plan: Stool clx negative. Continue questran (6) Hypertension: Plan: stable, holding HCTZ (7) Anemia: Plan: chronic, stable, with macrocytosis, could be from her alcohol abuse. B12, folate, hemolysis work up negative so far. No active bleed noted. Prior w/u for myeloprolif disorder was unremarkable so far. Plan Sc Lovenox Dispo- Pending medical stability Admission and Anticipated Discharge Date Admission Date: December 30, 2022 Subjective Patient was seen and examined at bedside. States states still has significant pain in upper abdomen and waiting for pain medication. Feels nauseous. Evaluated before and after the endoscopy. She is disappointed that she is in so much pain and we do not have the answer for her pain and that she is not getting the pain meds as ordered. No fever, chills, chest pain, shortness of breath. Review of Systems Review of Systems: All systems reviewed & are unremarkable except as noted in Subjective Physical Exam Physical Exam: General: Obese lying in bed, in discomfort due to pain, on room air HEENT: EOMI, DANA, MMM Chest: Fair breath sound bilaterally CVS: Tachycardic, normal heart sounds, no murmur Abdomen: Tender, distended, striae+, bowel sounds + Neuro: Awake, alert, oriented, conversing well, non focal Extremities: No cyanosis, clubbing or edema Psych: Anxious, tearful Results & Data Results & Data Vital Signs (Past 12 Hours) Vital Signs Temp Pulse Pulse Pulse Resp BP BP 01/02/23 08:40 01/02/23 15:48 37.1 C 89 16 107/66 01/02/23 13:58 37.0 C 95 H 16 110/75 01/02/23 13:40 94 H 17 111/75 01/02/23 13:20 90 21 116/69 01/02/23 13:10 94 H 16 101/76 01/02/23 13:00 96 H 21 127/70 01/02/23 13:30 36.2 C L 93 H 20 108/76 01/02/23 12:52 36.2 C L 97 H 21 107/73 01/02/23 11:30 36.9 C 95 H 20 119/78 01/02/23 10:57 36.9 C 92 H 18 114/77 01/02/23 07:30 94 H 01/02/23 08:01 37.0 C 95 H 20 112/78 01/02/23 05:33 120/78 Pulse Ox O2 Del Method O2 Flow Rate 01/02/23 08:40 Room Air 01/02/23 15:48 94 Room Air 01/02/23 13:58 94 Room Air 01/02/23 13:40 94 Room Air 01/02/23 13:20 94 Room Air 01/02/23 13:10 95 Room Air 01/02/23 13:00 96 Oxymask 4 01/02/23 13:30 95 Room Air 01/02/23 12:52 95 Oxymask 8 01/02/23 11:30 98 Room Air 01/02/23 10:57 96 Room Air 01/02/23 07:30 01/02/23 08:01 96 Room Air 01/02/23 05:33 Laboratory Results Short CBC 01/01/23 01/02/23 Range/Units 18:00 07:05 WBC 13.66 H 17.04 H (4.8-10.8) K/ul Hgb 11.4 L 8.6 L (12.0-16.0) g/dl Hct 35.6 L 27.6 L (37.0-47.0) % Plt Count 402 H 472 H (130-400) K/uL BMP 01/01/23 01/02/23 18:00 07:05 Sodium 137 138 Potassium 3.8 D 3.5 Chloride 115 H 112 H Carbon Dioxide 17 L 19 L BUN 2 L 2 L Creatinine 0.51 L 0.55 L Glucose 86 89 Calcium 7.7 L 8.0 L Liver Function 01/01/23 Range/Units 18:00 Total Bilirubin 1.0 (0.2-1.0) mg/dl Direct Bilirubin 0.4 H (0-0.2) mg/dl AST 58 H (13-39) U/L ALT 19 (7-52) U/L Alkaline Phosphatase 266 H (34-104) U/L Albumin 2.9 L (3.4-5.0) gm/dl Urine 01/01/23 Range/Units 18:30 Urine Color Yellow Urine Appearance Clear (Clear) Urine pH 6.5 (4.5-7.5) Ur Specific [place] 1.006 (1.000-1.030) Urine Protein Negative (Negative) Urine Glucose (UA) Negative (Negative) Medications Administered Current Inpatient Medications Acetaminophen (Acetaminophen 325 Mg Tab) 650 mg PO Q4H PRN PRN Reason: pain/fever Stop: 01/30/23 00:33 Cholestyramine Resin (Cholestyramine Light 4 Gm Pkt) 2 gm PO DAILY@1100 [facility] Stop: 01/30/23 10:59 Last Admin: 01/02/23 10:57 Dose: Not Given Cyanocobalamin (Cyanocobalamin 1000 Mcg/Ml Vial) 1,000 mcg IM [facility] Stop: 01/07/23 09:01 Last Admin: 01/02/23 08:40 Dose: 1,000 mcg Dicyclomine HCl (Dicyclomine Hcl 10 Mg Cap) 10 mg PO AC [facility] Stop: 01/30/23 11:29 Last Admin: 01/02/23 10:58 Dose: Not Given Enoxaparin Sodium (Enoxaparin Inj 40 Mg/0.4 Ml Syr) 40 mg SQ [facility] Stop: 01/30/23 10:59 Last Admin: 01/02/23 08:34 Dose: Not Given Folic Acid (Folic Acid 1 Mg Tab) 1 mg PO [facility] Stop: 01/31/23 08:59 Last Admin: 01/02/23 08:41 Dose: 1 mg Hydrochlorothiazide (Hydrochlorothiazide 25 Mg Tab) 25 mg PO [facility] Stop: 01/30/23 08:59 Last Admin: 01/01/23 08:55 Dose: Not Given Hydromorphone HCl (Hydromorphone Inj 0.5 Mg/0.5 Ml Syr) 0.5 mg IV Q2H PRN PRN Reason: severe breakthrough pain Stop: 01/14/23 00:33 Last Admin: 01/02/23 14:25 Dose: 0.5 mg Hydroxyzine HCl (Hydroxyzine Hcl 25 Mg Tab) 25 mg PO TID PRN PRN Reason: anxiety-1st choice Stop: 02/01/23 12:43 Ciprofloxacin (Cipro / D5w) 400 mg in 200 mls @ 100 mls/hr IV Q12H [facility]; Protocol Stop: 01/11/23 16:59 Last Infusion: 01/02/23 08:31 Dose: Infused Metronidazole (Flagyl) 500 mg in 100 mls @ 100 mls/hr IV Q8H [facility] Stop: 01/11/23 16:59 Last Infusion: 01/02/23 09:40 Dose: Infused Lisinopril (Lisinopril 10 Mg Tab) 10 mg PO [facility] Stop: 01/30/23 08:59 Last Admin: 01/01/23 08:55 Dose: Not Given Lorazepam (Lorazepam 0.5 Mg Tab) 0.5 mg PO UD PRN PRN Reason: AWSS score 6+ Stop: 01/31/23 10:17 Last Admin: 01/01/23 20:51 Dose: 0.5 mg Miscellaneous (Remove Nicoderm Patch) 1 each N/A DAILY@0859 [facility] Stop: 01/30/23 08:58 Last Admin: 01/02/23 08:41 Dose: 1 each Multivitamins (Multivitamin Tab) 1 tab PO QAM [facility] Stop: 01/30/23 08:59 Last Admin: 01/02/23 08:41 Dose: 1 tab Nicotine (Nicotine 21 Mg/24 Hr Tdsy) 21 mg TD DAILY [facility] Stop: 01/30/23 08:59 Last Admin: 01/02/23 08:41 Dose: 21 mg Ondansetron HCl (Ondansetron Inj 2 Mg/Ml 2 Ml Vial) 4 mg IV ONCE PRN PRN Reason: PACU Use Only-Nausea/Vomiting Stop: 01/02/23 19:40 Quetiapine Fumarate (Quetiapine Fumarate 100 Mg Tablet) 100 mg PO HS [facility] Stop: 02/01/23 20:59 Thiamine HCl (Thiamine Hcl 100 Mg Tab) 100 mg PO QAM [facility] Stop: 01/31/23 08:59 Last Admin: 01/02/23 08:40 Dose: 100 mg Tramadol HCl (Tramadol Hcl 50 Mg Tablet) 100 mg PO Q4H PRN PRN Reason: Pain Stop: 02/01/23 14:58 (2) Abdominal pain Abdominal location: unspecified location Qualified Code(s): R10.9 - Unspecified abdominal pain (6) Hypertension Hypertension type: unspecified Qualified Code(s): I10 - Essential (primary) hypertension
[2023-01-02] MEDS: hydrOXYzine HCl 25 MG TAB PO PRN (17:02)
[2023-01-02] MEDS: QUEtiapine FUMARATE 100 MG TABLET PO SCH (21:54)
[2023-01-02] MEDS: PANTOprazole 40 MG in SYRINGE 0 ML IV SCH (22:04)
[2023-01-03] MEDS: metroNIDAZOLE 500 MG/100 ML BAG IV SCH ×3 (02:33→17:32)
[2023-01-03] MEDS: HYDROmorphone INJ 0.5 MG/0.5 ML SYR IV PRN ×3 (04:15→17:31)
[2023-01-03] MEDS: CIPROFLOXACIN / D5W 400 MG/200 ML BAG IV SCH ×2 (05:24→17:32)
[2023-01-03] MEDS: GABAPENTIN 600 MG TAB PO SCH (05:28)
--- NOTE | 2023-01-03 06:15 | Surgery Progress Note ---
Date of Service January 03, 2023 Assessment & Plan (1) Abdominal pain: Plan: Patient has been admitted on the hospitalist service. Surgical recommendations as follows: Patient underwent upper endoscopy and endoscopic ultrasound on 01/02/2023 by gastroenterology and was noted to have portal hypertensive gastropathy. There is no evidence of choledocholithiasis. Fatty infiltration of the liver noted which was felt to be likely due to alcohol abuse No etiology on imaging that would warrant surgical intervention. Patient's abdominal symptoms are resolving. Leukocytosis has been chronic since March 2022. F/U with PCP. So far no etiology identified. Continue analgesics as needed Blood pressure is a little low this am. Hydrate. May continue diet. -May consider discharge once acute symptoms have resolved and patient is hydrated if she continues to tolerate oral intake. Admission and Anticipated Discharge Date Admission Date: December 30, 2022 Supervising Physician Co-Signing Physician Notes I have seen and examined this patient with the PA to devise this plan. Agree with all above. Subjective Patient seen this am and says her abdominal discomfort has decreased. She feels better with mild discomfort and is ready to go home. She denies any nausea or vomiting overnight and tolerated some oral intake. She c/o night sweats and had an episode last night. She says this also is chronic and ongoing for several months. She has been afebrile o/n. Physical Exam Gastrointestinal (Abdomen): Abdomen is nonrigid and soft. Bowel sounds are present. Generalized mildly TTP. Abdomen is soft without gaurding. Results & Data Vital Signs (Past 12 Hours) Vital Signs Temp Pulse Pulse Resp BP Pulse Ox O2 Del Method 01/03/23 02:54 36.5 C 82 16 102/67 93 Room Air 01/03/23 01:10 95 H 01/02/23 23:07 36.6 C 98 H 18 110/71 92 Room Air 01/02/23 22:23 Room Air 01/02/23 20:14 36.9 C 91 H 18 100/63 95 Room Air PG Care Time/CCT Total # of Minutes Spent Total Time Spent with Patient: Total time spent is greater than 50% in coordination of care (as documented) at patient's floor/unit and/or counseling patient: C[place] [address] SUB INP/OBS CARE 1/25MIN Patient Type Established History Problem Focused Exam Problem Focused Medical Decision Making Low Complexity Diagnoses Abdominal pain R10.9 Abdominal location: unspecified location (1) Abdominal pain Abdominal location: unspecified location Qualified Code(s): R10.9 - Unspecified abdominal pain
[2023-01-03] MEDS: DICYCLOMINE HCL 10 MG CAP PO SCH ×3 (07:54→17:33)
[2023-01-03] MEDS: HYDROCODONE/ACETAMOPHEN 5/325MG TAB PO PRN ×3 (07:55→21:57)
[2023-01-03 08:28] LABS: Hematocrit (blood only) 28.4 % (37.0-47.0); Hemoglobin 9.3 g/dl (12.0-16.0); Mean Corpuscular Hemoglobin 33.7 pg (25.0-34.0); Mean Corpuscular Hgb Conc 32.7 g/dL (32.0-36.0); Mean Corpuscular Volume 102.9 fL (80.0-100.0); Mean Platelet Volume 9.4 fL (9.4-12.4); Platelet Count 480 K/uL (130-400); RDW Coefficient of Variation 14.2 % (11.5-14.5); RDW Standard Deviation 53.2 fL (36.4-46.3); Red Blood Count 2.76 M/uL (4.20-5.40); White Blood Count 17.17 K/ul (4.8-10.8)
[2023-01-03 08:51] LABS: Alanine Aminotransferase 15 U/L (7-52); Albumin Globulin Ratio 0.9 (0.9-2); Alkaline Phosphatase 237 U/L (34-104); Anion Gap 6 (3-11); Aspartate Aminotransferase 34 U/L (13-39); BUN Creatinine Ratio 4.7 (10-20); Bilirubin,Total 0.8 mg/dl (0.2-1.0); Blood Urea Nitrogen 2 mg/dl (6-23); Calcium 8.7 mg/dl (8.6-10.3); Carbon Dioxide 22 mmol/L (21-32); Chloride 114 mmol/L (98-107); Creatinine Clr Calc Pharmacy 211.1 ml/min; Est GFR (African American) > 150.0 ml/min; Est GFR (Non-African American) 131.8 ml/min; Globulin 3.5 gm/dl (2.5-4.0); Glucose 91 mg/dl (70-99(Fasting)); Lipase 5 U/L (11-82); Phosphorus 2.5 mg/dl (2.5-4.9); Potassium 3.8 mmol/L (3.5-5.1); Sodium 142 mmol/L (136-145); Total Protein 6.5 gm/dl (6.0-8.3)
[2023-01-03] MEDS: PANTOprazole 40 MG in SYRINGE 0 ML IV SCH ×2 (09:28→21:58)
[2023-01-03] MEDS: THIAMINE HCL 100 MG TAB PO SCH (09:28)
[2023-01-03] MEDS: FOLIC ACID 1 MG TAB PO SCH (09:29)
[2023-01-03] MEDS: ENOXAPARIN INJ 40 MG/0.4 ML SYR SQ SCH (09:29)
[2023-01-03] MEDS: MULTIVITAMIN TAB PO SCH (09:30)
[2023-01-03] MEDS: CYANOCOBALAMIN 1000 MCG/ML VIAL IM SCH (09:31)
[2023-01-03] MEDS: NICOTINE 21 MG/24 HR TDSY TD SCH (09:34)
--- NOTE | 2023-01-03 11:27 | Hospitalist Progress Note ---
Date of Service January 03, 2023 Assessment & Plan (1) Sepsis: Plan: unclear if patient has sepsis but already on empiric antibiotic. Leucocytosis has been chronic since Mar 2022 and evaluated by hemon for MPD during recent admission. Repeat blood cultures have been negative. Urine with trichomonas but already on flagyl. Procal trended down, lactate stable. Seen by GI and surgery team. CT and endoscopy already done. (2) Abdominal pain: Plan: Unclear cause- ongoing issue for many months now with prior admission CT scan A/P reveals fatty liver and patent portal veins, alcohol level was 137 on arrival so alcohol use may be contributing to ongoing pain EGD with portal hypertensive gastropathy as below Seen by GI and surgery-no surgical indication Improving with current management-we will continue for now Urinary porphyrins pending EGD- There was no sign of significant pathology in the ampulla. - Evidence of a cholecystectomy. - There was dilation in the common bile duct which measured up to 7 mm. This is consistent with the patient's prior cholecystectomy. - There was diffuse abnormal echotexture in the visualized portion of the liver. This was characterized by a hyperechoic appearance. - Pancreatic parenchymal abnormalities consisting of diffuse echogenicity and lobularity were noted in the entire pancreas. This is likely related to underlying alcohol abuse. - Endosonographic images of the left adrenal gland were unremarkable. - A few benign lymph nodes were visualized in the ant hepatis region. - No specimens collected. CTA abd pelvis- 1. Aorta and its branch vessels are adequately patent. 2. Severe hepatomegaly and steatosis. CT chest- No acute or significant findings. (3) Lactic acidemia: Plan: Unclear cause of persistent lactic acidemia but overall stable (4) Alcohol abuse: Plan: Presented intoxicated. Alc level elevated. Monitor for withdrawal. Patient reports wanting to quit, and has been to rehab in the past. On gabapentin taper, folate, thiamine (5) Chronic diarrhea: Plan: Stool clx negative. Continue questran. Bowel movements now improved (6) Hypertension: Plan: stable, holding HCTZ and lisinopril for now (7) Anemia: Plan: chronic, stable, with macrocytosis, could be from her alcohol abuse. B12, folate, hemolysis work up negative so far. No active bleed noted. Prior w/u for myeloprolif disorder was unremarkable so far. (8) Mental health problem: Plan: H/o bipolar disorder, PTSD, JEAN Seen by psychiatry and reocmmendations noted as below - started on Seroquel 100 Mg nightly. Recommended fasting lipid panel and glucose and again in 4 months to ensure not increasing - Vistaril 25 to 3 times daily as needed for anxiety - Ativan 0.25 mg twice daily as needed for panic attacks in the hospital-should not be given as outpatient prescription - In future, prazosin could be trialed at bedtime to help with night terrors Will check EKG in am to monitor for QTc- if elevated, will need to hold seroquel as she is getting cipro as well Plan Sc Lovenox Dispo- Pending medical stability. Admission and Anticipated Discharge Date Admission Date: December 30, 2022 Subjective Patient was seen and examined at bedside. She feels better today. Her pain is improved, currently 4 out of 10-she states [place] is helping and would like to see how it goes today. No nausea or vomiting. Tolerating diet well. Still some tenderness in upper abdomen. Her bowel movements are now semiformed. She had a good night sleep.. Review of Systems Review of Systems: All systems reviewed & are unremarkable except as noted in Subjective Physical Exam Physical Exam: General: Obese lying comfortably in bed, not in distress on room air HEENT: EOMI, DANA, MMM Chest: Fair breath sound bilaterally CVS: Regular, normal heart sounds, no murmur Abdomen: Some tenderness in upper abdomen, distended, striae+, bowel sounds + Neuro: Awake, alert, oriented, conversing well, non focal Extremities: No cyanosis, clubbing or edema Psych: Calm, cooperative. Not anxious or tearful today Results & Data Results & Data Vital Signs (Past 12 Hours) Vital Signs Temp Pulse Pulse Resp BP BP Pulse Ox 01/03/23 08:00 01/03/23 07:47 79 01/03/23 06:26 36.5 C 78 16 95/62 L 96 01/03/23 02:54 36.5 C 82 16 102/67 93 01/03/23 01:10 95 H O2 Del Method 01/03/23 08:00 Room Air 01/03/23 07:47 01/03/23 06:26 Room Air 01/03/23 02:54 Room Air 01/03/23 01:10 Laboratory Results Short CBC 01/03/23 Range/Units 08:06 WBC 17.17 H (4.8-10.8) K/ul Hgb 9.3 L (12.0-16.0) g/dl Hct 28.4 L (37.0-47.0) % Plt Count 480 H (130-400) K/uL BMP 01/03/23 08:06 Sodium 142 Potassium 3.8 Chloride 114 H Carbon Dioxide 22 BUN 2 L Creatinine 0.43 L Glucose 91 Calcium 8.7 Liver Function 01/03/23 Range/Units 08:06 Total Bilirubin 0.8 (0.2-1.0) mg/dl AST 34 (13-39) U/L ALT 15 (7-52) U/L Alkaline Phosphatase 237 H (34-104) U/L Albumin 3.0 L (3.4-5.0) gm/dl Medications Administered Current Inpatient Medications Acetaminophen (Acetaminophen 325 Mg Tab) 650 mg PO Q4H PRN PRN Reason: pain/fever Stop: 01/30/23 00:33 Hydrocodone Bitart/Acetaminophen (Hydrocodone/Acetamophen 5/325mg Tab) 1 tab PO Q4H PRN PRN Reason: Pain Stop: 01/16/23 17:29 Last Admin: 01/03/23 07:55 Dose: 1 tab Cholestyramine Resin (Cholestyramine Light 4 Gm Pkt) 2 gm PO DAILY@1100 [facility] Stop: 01/30/23 10:59 Last Admin: 01/02/23 10:57 Dose: Not Given Cyanocobalamin (Cyanocobalamin 1000 Mcg/Ml Vial) 1,000 mcg IM QAM [facility] Stop: 01/07/23 09:01 Last Admin: 01/03/23 09:31 Dose: 1,000 mcg Dicyclomine HCl (Dicyclomine Hcl 10 Mg Cap) 10 mg PO AC [facility] Stop: 01/30/23 11:29 Last Admin: 01/03/23 07:54 Dose: 10 mg Enoxaparin Sodium (Enoxaparin Inj 40 Mg/0.4 Ml Syr) 40 mg SQ QAM [facility] Stop: 01/30/23 10:59 Last Admin: 01/03/23 09:29 Dose: 40 mg Folic Acid (Folic Acid 1 Mg Tab) 1 mg PO QAM [facility] Stop: 01/31/23 08:59 Last Admin: 01/03/23 09:29 Dose: 1 mg Gabapentin (Gabapentin 600 Mg Tab) 600 mg PO ONE ONE Stop: 01/04/23 06:01 Hydromorphone HCl (Hydromorphone Inj 0.5 Mg/0.5 Ml Syr) 0.5 mg IV Q4H PRN PRN Reason: severe breakthrough pain Stop: 01/15/23 16:28 Last Admin: 01/03/23 04:15 Dose: 0.5 mg Hydroxyzine HCl (Hydroxyzine Hcl 25 Mg Tab) 25 mg PO TID PRN PRN Reason: anxiety-1st choice Stop: 02/01/23 12:43 Last Admin: 01/02/23 17:02 Dose: 25 mg Ciprofloxacin (Cipro / D5w) 400 mg in 200 mls @ 100 mls/hr IV Q12H [facility]; Protocol Stop: 01/11/23 16:59 Last Infusion: 01/03/23 07:24 Dose: Infused Metronidazole (Flagyl) 500 mg in 100 mls @ 100 mls/hr IV Q8H [facility] Stop: 01/11/23 16:59 Last Admin: 01/03/23 09:30 Dose: 100 mls/hr Pantoprazole Sodium 40 mg/ (Syringe) 10 mls @ 5 mls/min IV BID [facility] Stop: 02/01/23 20:59 Last Admin: 01/03/23 09:28 Dose: 5 mls/min Lisinopril (Lisinopril 10 Mg Tab) 10 mg PO QAM [facility] Stop: 01/30/23 08:59 Last Admin: 01/01/23 08:55 Dose: Not Given Lorazepam (Lorazepam 0.5 Mg Tab) 0.5 mg PO UD PRN PRN Reason: AWSS score 6+ Stop: 01/31/23 10:17 Last Admin: 01/01/23 20:51 Dose: 0.5 mg Miscellaneous (Remove Nicoderm Patch) 1 each N/A DAILY@0859 [facility] Stop: 01/30/23 08:58 Last Admin: 01/03/23 09:35 Dose: 1 each Multivitamins (Multivitamin Tab) 1 tab PO QAM [facility] Stop: 01/30/23 08:59 Last Admin: 01/03/23 09:30 Dose: 1 tab Nicotine (Nicotine 21 Mg/24 Hr Tdsy) 21 mg TD DAILY [facility] Stop: 01/30/23 08:59 Last Admin: 01/03/23 09:34 Dose: 21 mg Quetiapine Fumarate (Quetiapine Fumarate 100 Mg Tablet) 100 mg PO HS [facility] Stop: 02/01/23 20:59 Last Admin: 01/02/23 21:54 Dose: 100 mg Thiamine HCl (Thiamine Hcl 100 Mg Tab) 100 mg PO QAM [facility] Stop: 01/31/23 08:59 Last Admin: 01/03/23 09:28 Dose: 100 mg (2) Abdominal pain Abdominal location: unspecified location Qualified Code(s): R10.9 - Unspecified abdominal pain (6) Hypertension Hypertension type: unspecified Qualified Code(s): I10 - Essential (primary) hypertension
[2023-01-03] MEDS: CHOLESTYRAMINE LIGHT 4 GM PKT PO SCH (12:21)
[2023-01-03] MEDS ORDERED: GABAPENTIN 600 MG TAB PO SCH (14:00)
[2023-01-03] MEDS: hydrOXYzine HCl 25 MG TAB PO PRN (15:04)
[2023-01-03] MEDS: QUEtiapine FUMARATE 100 MG TABLET PO SCH (21:57)
[2023-01-04] MEDS: metroNIDAZOLE 500 MG/100 ML BAG IV SCH ×2 (00:33→08:32)
[2023-01-04] MEDS: HYDROmorphone INJ 0.5 MG/0.5 ML SYR IV PRN (00:35)
[2023-01-04] MEDS: CIPROFLOXACIN / D5W 400 MG/200 ML BAG IV SCH (05:46)
[2023-01-04] MEDS ORDERED: GABAPENTIN 600 MG TAB PO ONE (06:00)
--- NOTE | 2023-01-04 06:44 | Surgery Progress Note ---
Date of Service January 04, 2023 Assessment & Plan (1) Abdominal pain: Plan: Patient has been admitted on the hospitalist service. She presented with biliary symptoms and has no gallbladder. Leukocytosis was present and is resolving, she is HD stable and afebrile. Surgical recommendations as follows: -CT A/P on 01/01/23 reveals cholecystectomy clips without dilatation of the bile ducts and does not mention abnormalities at the surgical bed. She has marked hepatomegaly with fatty liver. There is no general surgical etiology to her persistent right sided abdominal pain. The patient went on to have a direct look at the ductal system by GI that was without abnormality as well; nothing to suggest a retained CBD stone or stricture from the previous cholecystectomy. Patient underwent upper endoscopy and endoscopic ultrasound on 01/02/2023 by gastroenterology and was noted to have portal hypertensive gastropathy. Fatty infiltration of the liver again noted which was felt to be likely due to alcohol abuse Evaluation/imaging during this admission did not reveal any etiology that would warrant surgical intervention. Continue analgesics as needed and current medical treatment as the patient is showing improvement on Cipro and Flagyl. Continue diet as tolerated -May consider discharge once acute symptoms have resolved if she continues to tolerate oral intake. Admission and Anticipated Discharge Date Admission Date: December 30, 2022 Subjective Patient notes she continues to have abdominal pain but feels as though it has slightly improved since yesterday. Seems to be worse when she wakes up in the am to start moving around. Today she says the pain is all on her right side. She does report having a bowel movement yesterday and denies any nausea or vomiting. She does not voice any other complaints at this time. Physical Exam Gastrointestinal (Abdomen): Abdomen is soft and nonrigid. Patient did have some mild generalized tenderness to palpation but feels most TTP at the right side of her abdomen. Results & Data Vital Signs (Past 12 Hours) Vital Signs Temp Pulse Pulse Resp BP Pulse Ox O2 Del Method 01/03/23 23:46 90 01/03/23 22:19 Room Air 01/03/23 20:08 36.7 C 91 H 18 119/78 96 Room Air PG Care Time/CCT Total # of Minutes Spent Total Time Spent with Patient: Total time spent is greater than 50% in coordination of care (as documented) at patient's floor/unit and/or counseling patient: Coding Level of Care Code 45461 SUB INP/OBS CARE 1/25MIN Diagnoses Abdominal pain R10.9 Abdominal location: unspecified location (1) Abdominal pain Abdominal location: unspecified location Qualified Code(s): R10.9 - Unspecified abdominal pain
--- NOTE | 2023-01-04 07:10 | Electrocardiogram Report ---
Test Reason : Blood Pressure : / mmHG Vent. Rate : 083 BPM Atrial Rate : 083 BPM P-R Int : 146 ms QRS Dur : 102 ms QT Int : 420 ms P-R-T Axes : 056 015 021 degrees QTc Int : 493 ms Normal sinus rhythm Low voltage QRS Poor R wave progression, consider anterior AL vs. lead placement vs. LVH Abnormal ECG When compared with ECG of 01-JAN-2023 18:37, No significant change was found Confirmed by Zeferino Salazar ([id number]) on 01/04/2023 7:09:49 AM Referred By: REFERRED SELF Confirmed By:Dl Salazar
[2023-01-04] MEDS: HYDROCODONE/ACETAMOPHEN 5/325MG TAB PO PRN ×2 (07:26→12:11)
[2023-01-04] MEDS: DICYCLOMINE HCL 10 MG CAP PO SCH ×2 (07:27→12:14)
[2023-01-04] MEDS: MULTIVITAMIN TAB PO SCH (08:15)
[2023-01-04] MEDS: THIAMINE HCL 100 MG TAB PO SCH (08:15)
[2023-01-04] MEDS: FOLIC ACID 1 MG TAB PO SCH (08:15)
[2023-01-04] MEDS: NICOTINE 21 MG/24 HR TDSY TD SCH (08:16)
[2023-01-04] MEDS: PANTOprazole 40 MG in SYRINGE 0 ML IV SCH (08:17)
[2023-01-04 08:20] LABS: Basophils # (auto) 0.12 K/uL (0-0.2); Basophils % (auto) 0.8 %; Eosinophils # (auto) 0.37 K/uL (0-0.50); Eosinophils % (auto) 2.4 %; Hematocrit (blood only) 29.6 % (37.0-47.0); Hemoglobin 9.4 g/dl (12.0-16.0); Immature Granulocytes # (auto) 0.18 K/uL (0.01-0.20); Immature Granulocytes % (auto) 1.2 %; Lymphocytes # (auto) 3.86 K/uL (1.2-3.4); Mean Corpuscular Hemoglobin 33.1 pg (25.0-34.0); Mean Corpuscular Hgb Conc 31.8 g/dL (32.0-36.0); Mean Corpuscular Volume 104.2 fL (80.0-100.0); Mean Platelet Volume 9.3 fL (9.4-12.4); Monocytes % (auto) 7.8 %; Neutrophils # (auto) 9.68 K/uL (1.40-6.50); Neutrophils % (auto) 62.8 %; Platelet Count 469 K/uL (130-400); RDW Standard Deviation 53.7 fL (36.4-46.3); Red Blood Count 2.84 M/uL (4.20-5.40); White Blood Count 15.41 K/ul (4.8-10.8)
[2023-01-04] MEDS: hydrOXYzine HCl 25 MG TAB PO PRN (08:20)
[2023-01-04] MEDS: CYANOCOBALAMIN 1000 MCG/ML VIAL IM SCH (08:22)
[2023-01-04 08:34] LABS: Calcium 8.6 mg/dl (8.6-10.3); Chol HDL Ratio 7.9 (0-5); Creatinine Clr Calc Pharmacy 156.7 ml/min; Est GFR (African American) 138.4 ml/min; Est GFR (Non-African American) 119.4 ml/min; Magnesium 1.7 mg/dl (1.7-2.4); Phosphorus 3.3 mg/dl (2.5-4.9); Potassium 3.6 mmol/L (3.5-5.1)
[2023-01-04] MEDS: ENOXAPARIN INJ 40 MG/0.4 ML SYR SQ SCH (10:12)
--- NOTE | 2023-01-04 11:09 | Hospitalist Progress Note ---
Date of Service January 04, 2023 Assessment & Plan (1) Sepsis: Plan: unclear if patient has sepsis but already on empiric antibiotic. Leucocytosis has been chronic since Mar 2022 and evaluated by [facility] for MPD during recent admission. Repeat blood cultures have been negative. Urine with trichomonas but already on flagyl. Procal trended down, lactate stable. Seen by GI and surgery team. CT and endoscopy already done. (2) Abdominal pain: Plan: Unclear cause- ongoing issue for many months now with prior admissions CT scan A/P reveals fatty liver and patent portal veins, alcohol level was 137 o n arrival so alcohol use may be contributing to ongoing pain EGD with portal hypertensive gastropathy as below Seen by GI and surgery-no surgical indication Improving with current management-we will continue for now Urine for porphyria is pending Cipro and Flagyl has been started for gastrointestinal infection and will continue for 7 days in total Cynically stable and the pain seems to be tolerable She has had bowel movement and has been tolerating regular diet She has been ambulating without any difficulties Will be discharged home this afternoon Strongly advised to keep appointments with GI as an outpatient Imaging studies and procedures: EGD- There was no sign of significant pathology in the ampulla. - Evidence of a cholecystectomy. - There was dilation in the common bile duct which measured up to 7 mm. This is consistent with the patient's prior cholecystectomy. - There was diffuse abnormal echotexture in the visualized portion of the liver. This was characterized by a hyperechoic appearance. - Pancreatic parenchymal abnormalities consisting of diffuse echogenicity and lobularity were noted in the entire pancreas. This is likely related to underlying alcohol abuse. - Endosonographic images of the left adrenal gland were unremarkable. - A few benign lymph nodes were visualized in the ant hepatis region. - No specimens collected. CTA abd pelvis- 1. Aorta and its branch vessels are adequately patent. 2. Severe hepatomegaly and steatosis. CT chest- No acute or significant findings. (3) Lactic acidemia: Plan: Unclear cause of persistent lactic acidemia but overall stable Lactic acid remains mildly elevated (4) Alcohol abuse: Plan: Presented intoxicated. Alc level elevated. Monitor for withdrawal. Patient reports wanting to quit, and has been to rehab in the past. On gabapentin taper, folate, thiamine Strongly advised to quit drinking (5) Chronic diarrhea: Plan: Stool clx negative. Continue questran. Bowel movements now improved (6) Hypertension: Plan: stable, holding HCTZ and lisinopril for now (7) Anemia: Plan: chronic, stable, with macrocytosis, could be from her alcohol abuse. B12, fol ate, hemolysis work up negative so far. No active bleed noted. Prior w/u for myeloprolif disorder was unremarkable so far. (8) Mental health problem: Plan: H/o bipolar disorder, PTSD, JEAN Seen by psychiatry and reocmmendations noted as below - started on Seroquel 100 Mg nightly. Recommended fasting lipid panel and glucose and again in 4 months to ensure not increasing - Vistaril 25 to 3 times daily as needed for anxiety - Ativan 0.25 mg twice daily as needed for panic attacks in the hospital-should not be given as outpatient prescription - In future, prazosin could be trialed at bedtime to help with night terrors -EKG reviewed in the morning and normal increasing QTc -We will resume Seroquel and the patient is getting better with it Plan Sc Lovenox Dispo- Pending medical stability. Admission and Anticipated Discharge Date Admission Date: December 30, 2022 Subjective 01/04/2023 The patient was seen and examined in medical telemetry unit She continues to have colicky abdominal pain involving mainly right upper quadrant which has been going on since August She has had her bowel movement and has been tolerating regular diet So far investigations are negative and she wants to go home Review of Systems Review of Systems: All systems reviewed and are unremarkable except as noted below Gastrointestinal: Chronic colicky abdominal pain Physical Exam Physical Exam: Lying in bed with some discomfort in the abdomen Constitutional: well developed, well nourished, + ill appearing and + obese Eyes: PERRL, conjunctivae normal, anicteric sclerae ENMT: external ear and nose normal, oropharynx normal Neck: trachea midline, no thyromegaly Respiratory: no respiratory distress Auscultation: lungs clear to auscultation bilaterally Cardiovascular: Rate/Rhythm: regular rate and regular rhythm; not tachycardic Heart Sounds: normal S1 and normal S2; no murmur Extremities: no edema Gastrointestinal (Abdomen): Inspection/Auscultation: + abdomen distended (Mildly distended) and normal bowel sounds Percussion/Palpation: + abdomen tender (Tender right upper quadrant) and abdomen soft Musculoskeletal: No acute arthritis involving any of the joint Neurologic: Alert, awake and oriented x3. No focal sensory or motor deficit appreciated Lymphatic: no cervical or axillary lymphadenopathy Results & Data Results & Data Vital Signs (Past 12 Hours) Vital Signs Temp Pulse Pulse Resp BP Pulse Ox O2 Del Method 01/04/23 07:33 88 01/04/23 07:31 36.7 C 82 18 115/80 95 Room Air 01/03/23 23:46 90 Laboratory Results Short CBC 01/04/23 Range/Units 07:57 WBC 15.41 H (4.8-10.8) K/ul Hgb 9.4 L (12.0-16.0) g/dl Hct 29.6 L (37.0-47.0) % Plt Count 469 H (130-400) K/uL BMP 01/04/23 07:57 Sodium 140 Potassium 3.6 Chloride 113 H Carbon Dioxide 21 BUN 2 L Creatinine 0.58 L Calcium 8.6 Medications Administered Current Inpatient Medications Acetaminophen (Acetaminophen 325 Mg Tab) 650 mg PO Q4H PRN PRN Reason: pain/fever Stop: 01/30/23 00:33 Hydrocodone Bitart/Acetaminophen (Hydrocodone/Acetamophen 5/325mg Tab) 1 tab PO Q4H PRN PRN Reason: Pain Stop: 01/16/23 17:29 Last Admin: 01/04/23 07:26 Dose: 1 tab Cholestyramine Resin (Cholestyramine Light 4 Gm Pkt) 2 gm PO DAILY@1100 [facility] Stop: 01/30/23 10:59 Last Admin: 01/03/23 12:21 Dose: 2 gm Cyanocobalamin (Cyanocobalamin 1000 Mcg/Ml Vial) 1,000 mcg IM QAM VAN[facility] Stop: 01/07/23 09:01 Last Admin: 01/04/23 08:22 Dose: 1,000 mcg Dicyclomine HCl (Dicyclomine Hcl 10 Mg Cap) 10 mg PO AC [facility] Stop: 01/30/23 11:29 Last Admin: 01/04/23 07:27 Dose: 10 mg Enoxaparin Sodium (Enoxaparin Inj 40 Mg/0.4 Ml Syr) 40 mg SQ QAM VANIA Stop: 01/30/23 10:59 Last Admin: 01/04/23 10:12 Dose: Not Given Folic Acid (Folic Acid 1 Mg Tab) 1 mg PO QAM [facility] Stop: 01/31/23 08:59 Last Admin: 01/04/23 08:15 Dose: 1 mg Hydromorphone HCl (Hydromorphone Inj 0.5 Mg/0.5 Ml Syr) 0.5 mg IV Q4H PRN PRN Reason: severe breakthrough pain Stop: 01/15/23 16:28 Last Admin: 01/04/23 00:35 Dose: 0.5 mg Hydroxyzine HCl (Hydroxyzine Hcl 25 Mg Tab) 25 mg PO TID PRN PRN Reason: anxiety-1st choice Stop: 02/01/23 12:43 Last Admin: 01/04/23 08:20 Dose: 25 mg Ciprofloxacin (Cipro / D5w) 400 mg in 200 mls @ 100 mls/hr IV Q12H [facility]; Protocol Stop: 01/11/23 16:59 Last Infusion: 01/04/23 07:46 Dose: Infused Metronidazole (Flagyl) 500 mg in 100 mls @ 100 mls/hr IV Q8H [facility] Stop: 01/11/23 16:59 Last Infusion: 01/04/23 09:32 Dose: Infused Pantoprazole Sodium 40 mg/ (Syringe) 10 mls @ 5 mls/min IV BID [facility] Stop: 02/01/23 20:59 Last Admin: 01/04/23 08:17 Dose: 5 mls/min Lorazepam (Lorazepam 0.5 Mg Tab) 0.5 mg PO UD PRN PRN Reason: AWSS score 6+ Stop: 01/31/23 10:17 Last Admin: 01/01/23 20:51 Dose: 0.5 mg Miscellaneous (Remove Nicoderm Patch) 1 each N/A DAILY@0859 [facility] Stop: 01/30/23 08:58 Last Admin: 01/04/23 08:17 Dose: 1 each Multivitamins (Multivitamin Tab) 1 tab PO QAM [facility] Stop: 01/30/23 08:59 Last Admin: 01/04/23 08:15 Dose: 1 tab Nicotine (Nicotine 21 Mg/24 Hr Tdsy) 21 mg TD DAILY [facility] Stop: 01/30/23 08:59 Last Admin: 01/04/23 08:16 Dose: 21 mg Quetiapine Fumarate (Quetiapine Fumarate 100 Mg Tablet) 100 mg PO HS [facility] Stop: 02/01/23 20:59 Last Admin: 01/03/23 21:57 Dose: 100 mg Thiamine HCl (Thiamine Hcl 100 Mg Tab) 100 mg PO QAM [facility] Stop: 01/31/23 08:59 Last Admin: 01/04/23 08:15 Dose: 100 mg (2) Abdominal pain Abdominal location: unspecified location Qualified Code(s): R10.9 - Unspecified abdominal pain (6) Hypertension Hypertension type: unspecified Qualified Code(s): I10 - Essential (primary) hypertension
[2023-01-04] MEDS: CHOLESTYRAMINE LIGHT 4 GM PKT PO SCH (12:13)
--- NOTE | 2023-01-05 08:08 | Discharge Summary ---
Date of Service January 04, 2023 Admission HPI Per Admitting Provider DICTATED BY:Gilberto Villalobos MD DATE OF ADMISSION: 12/30/2022. CHIEF COMPLAINT: Abdominal pain. HISTORY OF PRESENT ILLNESS: A 37-year-old female with past medical history significant for history of chronic hypokalemia; history of hypertension; history of hypertensive urgency; history of morbid obesity; opioid dependence, in remission; history of seizure-like activity; history of bipolar disorder; tobacco abuse; generalized anxiety disorder; history of posttraumatic stress disorder; history of alcoholism. She says she has not drank alcohol since July 2022, but she drank 4 shots of alcohol today and alcohol level is 137 today. She has history of chronic diarrhea for the last several months. She says she has had multiple studies for diarrhea and were unremarkable. Says she h ad 1 episode of blood in the stools yesterday. The patient was hospitalized in the recent past for this right upper quadrant abdominal pain and worked up at that time, was seen by GI, status post EGD and colonoscopy, which showed esophagitis, possible portal hypertensive gastropathy. Colonoscopy showed 4 mm polyp in the cecum and 2 mm polyp in the transverse colon, which was also removed. At that time, biopsy showed microscopic colitis and she was also admitted in the hospital again in September with the same right quadrant abdominal pain and elevated LFTs. GI recommended MRCP to rule out microlithiasis and it was done, which showed no choledocholithiasis identified. Seemed to be the patient was started on colestipol and dicyclomine by GI. She was also having leukocytosis and thrombocytosis and she was seen by hematology/oncology since leukocytosis has been persistent since March. Workup for myeloproliferative disorders was done. She is supposed to follow with heme/onco but she did not follow up, but says she got a letter saying the labs were okay. The patient today comes in because the abdominal pain started again since last night, severe from the epigastric to the right upper quadrant region. Also has a lot of nausea and dry heaving and she has chronic diarrhea. She has poor appetite. No difficulty swallowing. Denies any chest pain. No shortness of breath, no cough, no fevers. Normal bladder movements. Has some chronic headache, no blurred visions. Has some mild dizziness. No runny nose, no sore throat. Currently, hemodynamically stable .Asking for pain medications. Admission Exam Per Admitting Provider GENERAL: The patient is of moderate build, not in acute distress. VITAL SIGNS: Temperature 36.7, pulse 97, respiratory rate 24, blood pressure 102/67, oxygen 94% on room air. HEENT: Pupils equal, round and reactive to light. Oral mucosa moist. NECK: No JVD, no neck masses. CARDIOVASCULAR: S1 and S2 heard. Regular rate and rhythm. No murmur, no gallop. RESPIRATORY SYSTEM: Normal AP diameter. No accessory muscle use. No wheezing or crackles. ABDOMEN: Soft, bowel sounds present. Tenderness in the epigastrium and right upper quadrant region. Mild guarding, no rigidity, no distention. CENTRAL NERVOUS SYSTEM: Cranial nerves II-XII grossly intact, nonfocal. EXTREMITIES: No edema, no erythema. Principal Diagnosis Chronic abdominal pain, bipolar disorder, alcohol abuse Discharge Exam Lying in bed with some discomfort in the abdomen Constitutional well developed, well nourished, + ill appearing and + obese Eyes PERRL, conjunctivae normal, anicteric sclerae ENMT external ear and nose normal, oropharynx normal Neck trachea midline, no thyromegaly Respiratory no respiratory distress Auscultation: lungs clear to auscultation bilaterally Cardiovascular Rate/Rhythm: regular rate and regular rhythm; not tachycardic Heart Sounds: normal S1 and normal S2; no murmur Extremities: no edema Gastrointestinal (Abdomen) Inspection/Auscultation: + abdomen distended (Mildly distended) and normal bowel sounds Percussion/Palpation: + abdomen tender (Tender right upper quadrant) and abdomen soft Lymphatic no cervical or axillary lymphadenopathy Discharge Data Allergies Allergy/AdvReac Type Severity Reaction Status Date / Time nut - unspecified Allergy Severe Anaphylaxis Verified 01/02/23 11:28 Penicillins Allergy Severe Difficulty Verified 01/02/23 11:28 Breathing tree nut Allergy Severe Anaphylaxis Verified 01/02/23 11:28 morphine Allergy Intermediate Hives Verified 01/02/23 11:28 mushroom Allergy Intermediate Hives Verified 01/02/23 11:28 Consultations 12/30/22 19:30 ED Decision to Admit Stat 12/31/22 08:00 Consult Gastroenterology Routine 01/01/23 11:34 Consult Behavioral Health Liaison Routine Consult Psychiatry Routine 01/01/23 16:31 Consult General Surgery Stat Procedures Performed Operation Date: 01/02/23 08:10 Actual Procedures s Esophagogastroduodenoscopy - Maricarmen Ornelas, DO p Endoscopic Ultrasonography Upper - Maricarmen Ornelas, DO Ordered Studies 12/30/22 17:21 CT abd pelvis IV con only Stat 01/01/23 17:13 CT angio abdomen pelvis w con Urgent 01/01/23 20:17 CT chest diagnostic wo con Routine 01/02/23 12:05 US upper EUS PACS images Routine Hospital Course (1) Sepsis: unclear if patient has sepsis but already on empiric antibiotic. Leucocytosis has been chronic since Mar 2022 and evaluated by [facility] for MPD during recent admission. Repeat blood cultures have been negative. Urine with trichomonas but already on flagyl. Procal trended down, lactate stable. Seen by GI and surgery team. CT and endoscopy already done. (2) Abdominal pain: Unclear cause- ongoing issue for many months now with prior admissions CT scan A/P reveals fatty liver and patent portal veins, alcohol level was 137 on arrival so alcohol use may be contributing to ongoing pain EGD with portal hypertensive gastropathy as below Seen by GI and surgery-no surgical indication Improving with current management-we will continue for now Urine for porphyria is pending Cipro and Flagyl has been started for gastrointestinal infection and will continue for 7 days in total Cynically stable and the pain seems to be tolerable She has had bowel movement and has been tolerating regular diet She has been ambulating without any difficulties Will be discharged home this afternoon Strongly advised to keep appointments with GI as an outpatient Imaging studies and procedures: EGD- There was no sign of significant pathology in the ampulla. - Evidence of a cholecystectomy. - There was dilation in the common bile duct which measured up to 7 mm. This is consistent with the patient's prior cholecystectomy. - There was diffuse abnormal echotexture in the visualized portion of the liver. This was characterized by a hyperechoic appearance. - Pancreatic parenchymal abnormalities consisting of diffuse echogenicity and lobularity were noted in the entire pancreas. This is likely related to underlying alcohol abuse. - Endosonographic images of the left adrenal gland were unremarkable. - A few benign lymph nodes were visualized in the ant hepatis region. - No specimens collected. CTA abd pelvis- 1. Aorta and its branch vessels are adequately patent. 2. Severe hepatomegaly and steatosis. CT chest- No acute or significant findings. (3) Lactic acidemia: Unclear cause of persistent lactic acidemia but overall stable Lactic acid remains mildly elevated (4) Alcohol abuse: Presented intoxicated. Alc level elevated. Monitor for withdrawal. Patient reports wanting to quit, and has been to rehab in the past. On gabapentin taper, folate, thiamine Strongly advised to quit drinking (5) Chronic diarrhea: Stool clx negative. Continue questran. Bowel movements now improved (6) Hypertension: stable, holding HCTZ and lisinopril for now (7) Anemia: chronic, stable, with macrocytosis, could be from her alcohol abuse. B12, folate, hemolysis work up negative so far. No active bleed noted. Prior w/u for myeloprolif disorder was unremarkable so far. (8) Mental health problem: H/o bipolar disorder, PTSD, JEAN Seen by psychiatry and reocmmendations noted as below - started on Seroquel 100 Mg nightly. Recommended fasting lipid panel and glucose and again in 4 months to ensure not increasing - Vistaril 25 to 3 times daily as needed for anxiety - Ativan 0.25 mg twice daily as needed for panic attacks in the hospital-should not be given as outpatient prescription - In future, prazosin could be trialed at bedtime to help with night terrors -EKG reviewed in the morning and normal increasing QTc -We will resume Seroquel and the patient is getting better with it Plan Sc Lovenox Dispo- Pending medical stability. Total Time Total Time Spent Total Time Spent (In Minutes): 35 minutes Discharge Plan Discharge Items Patient Disposition: Home - Self-Care Reason For Visit: ABDOMINAL PAIN Discharge Diagnosis: Chronic abdominal pain, bipolar disorder, alcohol abuse Condition on Discharge: Fair Activity: Resume your previous activity Non-emergency contact: Primary Care Provider Call non-emergency contact if: you have any medication questions Follow-up/Referrals: Angelic Pereira DO [Primary Care Provider] - (Your doctor's office will call you with an appointment within 7 days) Pauline Oviedo MD [Physician] - 01/15/23 2:50 pm Diet: Regular Addtl Attending Provider Instructions: Please take precautions to avoid falls Try to use less of narcotic pain medication to avoid confusion, drowsiness, constipation and addiction Take your medications as advised Please keep appointment with your healthcare providers Strongly advised to quit drinking of alcohol Pending Studies at Discharge: Yes Studies:: Urine porphyria Stand-Alone Forms: [facility], Smoking Cessation Medications and DC Order Prescriptions: New hydrocodone-acetaminophen 5-325 mg Tablet 1 tab PO Q4H PRN (Reason: pain) 5 Days Qty: 14 0RF thiamine HCl (vitamin B1) 100 mg Tablet 100 mg PO QAM 30 Days Qty: 30 0RF quetiapine 100 mg Tablet 100 mg PO HS 30 Days Qty: 30 0RF nicotine [Nicoderm CQ] 21 mg/24 hr Patch 24 Hour 21 mg transdermal DAILY 30 Days Qty: 30 0RF folic acid 1 mg Tablet 1 mg PO QAM 30 Days Qty: 30 0RF hydroxyzine HCl 25 mg Tablet 25 mg PO TID PRN (Reason: anxiety) 30 Days Qty: 30 0RF dicyclomine 10 mg Capsule 10 mg PO AC 10 Days Qty: 30 0RF cholestyramine-aspartame [Prevalite] 4 gram Powder In Packet 2 g PO DAILY@1100 30 Days Qty: 30 0RF ciprofloxacin HCl [Cipro] 500 mg tablet 500 mg PO BID Qty: 8 0RF metronidazole 500 mg tablet 500 mg PO TID Qty: 12 0RF Continued epinephrine [EpiPen] 0.3 mg/0.3 mL Auto-Injector 0.3 mg IM DIRECTED PRN (Reason: Allergic Reaction) Patient Comments: pt says nothing has changed in a week since shes been here last Rx Instructions: for a severe reaction: Place oragne end against outer thigh,press firmly, hold in place for 10 seconds and go to the emergency room. lisinopril 10 mg tablet 10 mg PO QAM hydrochlorothiazide 25 mg tablet 25 mg PO QAM multivitamin with folic acid [Daily-Rajendra (with folic acid)] 400 mcg Tablet 1 tab PO QAM Qty: 30 0RF Discharge Orders: Discharge Order (Routine); Ordered 01/04/23 Ordered By: Kathy Murrell Admission Data Admit Date/Time: 12/30/22 23:02 Attending Provider: Kathy Murrell Admit Provider: Gilberto Villalobos Primary Care Provider: Angelic Pereira Other Providers: Gilberto Villalobos ; Gladys Castrejon ; Melissa Gallardo ; Deirdre Wynne ; Dirk Espinoza ; Fermin Faustin ; Lenin Ledezma Other Interventions: Discharge Summary Assessment (RN) Last Done: 01/04/23 11:45
== END 2023-01-04 13:03 | disposition home or self-care (01) | DRG 872 ==
LOC: ED 16:59 → EDINP 23:02 → SUATTDRO 23:02 → 2N 12-31 00:26

== ENCOUNTER 2023-12-25 09:23 | Observation (INO) ==
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
[2023-12-25] MEDS: HYDROmorphone INJ 2 MG/ML SYR/VIAL IV PRN (01:30)
[~2023-12-25 09:23] MED LIST changes: +ACETAMINOPHEN 1000 MG/100 ML IV IV ONE; -OPTIRAY 320 125ml IV ONE
[2023-12-25] MEDS: LR 15ML/HR IV SCH (10:07)
[2023-12-25] MEDS: LACTATED RINGER'S 1,000 ML IV SCH ×2 (10:10→23:06)
[2023-12-25] MEDS ORDERED: DEXAMETHASONE SOD INJ 4 MG/ML VIAL ONE (10:29)
[2023-12-25] MEDS ORDERED: LIDOCAINE 2% 2 ML VIAL/AMP(20MG/ML) INFIL ONE (10:29)
[2023-12-25] MEDS ORDERED: KETOROLAC 30 MG/ML VIAL ONE (10:29)
[2023-12-25] MEDS ORDERED: SODIUM CHLORIDE 0.9% PF INJ 10 ML VIAL ONE (10:29)
[2023-12-25] MEDS ORDERED: PROPOFOL IV EMULSION 10 MG/ML 20 ML VIAL IV ONE (10:29)
[2023-12-25] MEDS ORDERED: diphenhydrAMINE 50 MG/ML VIAL ONE (10:29)
[2023-12-25] MEDS ORDERED: ROCURONIUM BROMIDE 10 MG/ML 5 ML VIAL IV ONE ×2 (10:29→12:36)
[2023-12-25] MEDS ORDERED: ONDANSETRON INJ 2 MG/ML 2 ML VIAL ONE (10:29)
[2023-12-25] MEDS ORDERED: SUGAMMADEX SODIUM 200 MG/2 ML VIAL IV ONE (10:30)
[2023-12-25] MEDS ORDERED: MIDAZOLAM HCL 1 MG/ML 2ML VIAL ONE ×2 (10:30→10:43)
[2023-12-25] MEDS ORDERED: fentaNYL citrate PF 100 MCG/2 ML VIAL ONE (10:30)
[2023-12-25] MEDS ORDERED: ONDANSETRON INJ 2 MG/ML 2 ML VIAL IV PRN ×2 (10:35→14:19)
[2023-12-25] MEDS ORDERED: ePHEDrine sulfate 50 MG/ML AMP IV PRN (10:35)
[2023-12-25] MEDS ORDERED: ATROPINE SULFATE 0.1 MG/ML 10ML SYR IV PRN (10:35)
[2023-12-25] MEDS ORDERED: HYDROmorphone INJ 2 MG/ML SYR/VIAL ONE (10:43)
--- NOTE | 2023-12-25 11:34 | History & Physical Bridge Note ---
Date of Service December 25, 2023 History & Physical Bridge Note I have examined the patient, reviewed the History & Physical and in the interval since the performance of the History & Physical I have noted the following changes of clinical significance: no changes noted
[2023-12-25] MEDS: ceFAZolin 2000MG 2,000 MG/15 ML SYR IV SCH (11:40)
[2023-12-25] MEDS ORDERED: LABETALOL HCL IV 5 MG/ML 20ML IV ONE ×3 (12:31→13:02)
[2023-12-25] MEDS: FLOSEAL HEMOSTATIC MATRIX 5ML TOP ONE (12:58)
[2023-12-25] MEDS ORDERED: DexMEDEtomidine HCL IV 100 MCG/ML VIAL IV ONE (13:04)
[2023-12-25] MEDS ORDERED: METHYLENE BLUE 0.5% 10 ML VIAL ONE (13:18)
[2023-12-25] MEDS: FLOSEAL HEMOSTATIC MATRIX 10ML TOP ONE (13:50)
[2023-12-25] MEDS: BUPIVACAINE/EPINEPHRINE 0.5% MPF 1:200,000 30 ML VIAL ONE (14:09)
[2023-12-25] MEDS ORDERED: PROMETHAZINE HCL 12.5 MG in SODIUM CHLORIDE 0.9% 50 ML IV PRN (14:19)
[2023-12-25] MEDS ORDERED: SIMETHICONE 80 MG CHEW PO PRN (14:19)
[2023-12-25] MEDS ORDERED: ZOLPIDEM TARTRATE 5 MG TAB PO PRN (14:19)
[2023-12-25] MEDS ORDERED: MAGNESIUM HYDROXIDE SUSP 30 ML UDC PO PRN (14:19)
--- NOTE | 2023-12-25 14:33 | Operative Report ---
Post Operative Report Pre & Post Diagnosis Operation Date: 12/25/23 12:20 Pre-Op Diagnosis: Menorrhagia Failed Ablation Post-Op Diagnosis: Menorrhagia Failed Ablation I identified the patient and participated in the time-out.: Yes Procedure Operation Date: 12/25/23 12:20 Actual Procedures p Total Laparoscopic Hysterectomy, Bilateral Salpingectomy Lysis of adhesion - Aiden Appiah MD Surgeon Aiden Appiah MD Spa Technician Stan Zarate Estimated Blood Loss 15 Findings Consistent with Post-Op Diagnosis Normal female escutcheon appropriate for age. Cervix appeared grossly normal and no lesions seen in the vagina. Laparoscopic findings. Patient had adhesion of the omentum to the umbilicus uterus is about 10 weeks size both both left and right ovaries and fallopian tube appeared grossly normal there appeared to be cystic otherwise normal. Patient has endometrial implants on the right uterosacral on and on the left lateral wall of the pelvics. Fluids IVF; 1200ml urine ; 200ml EBL; 15ml Specimens Uterus and cervix left and right fallopian tubes Drains None Anesthesia Type General Complications None Indications 38-year-old status post endometrial ablation failed endometrial ablation and chronic pelvic pain. Description of Procedure FINDINGS: DESCRIPTION OF PROCEDURE: The patient was prepped and draped in normal sterile fashion in the dorsal lithotomy position. Fisher catheter was placed without difficulty. An Advincula uterine manipulator was placed in the uterus to help with colpotomy. Attention was paid to the abdominal part of the procedure where a supraumbilical incision was made and carried down to the fascia. Martin was used to grab the fascia. Veress needle was introduced into the abdomen at a 45-degree angle while tenting up the abdomen. Intra-abdominal placement was confirmed with a water-filled syringe. A water drop and suction test was performed. The abdomen was insufflated with CO2 gas. The Veress needle was removed and a 5 mm non bladed trocar was attached to a laparoscope was introduced into the abdomen under direct visualization. This was a non bladed trocar. Once inside the abdomen, laparoscope was repositioned. Inspection of the abdomen shows the findings as dictated above. Three more accessory ports were placed, two 5 mm accessory ports were placed in the lower abdomen on the contralateral side, in addition, an 11 mm trocar was placed on the left upper quadrant. General inspection of the abdomen and pelvis was performed as dictated above. There was an adhesion of omentum to the umbilicus. This omentum was examined. There was no bowel in the omentum, so the LigaSure was passed through one of the contralateral port and dissection of the omentum from the abdominal wall was performed. There was good hemostasis. Left and right fallopian tubes, the ureters, uterosacrals, bowels, appeared grossly normal. LigaSure was passed through the left accessory port. And another revisualization the adhesions for greater than and cut close to the abdominal wall. The left fallopian tube was identified and grabbed 4 cm from the cornua of the uterus with the LigaSure and transected. This was followed by opening of the left anterior leaf of the broad ligament. This allowed fenestration of the posterior left broad ligament. The mid-section of the left fallopian tube, utero-ovarian and meso-ovarian pedicles were transected as well. Same procedure was performed on the contralateral side. The anterior broad ligament dissection was carried to the mid-section of the vesicouterine peritoneum over the bladder using the Harmonic scalpel. Same procedure was carried out on the contralateral side. The posterior broad ligament peritoneum was carefully dissected also from both sides over the uterosacral arch in order to displace the ureters laterally. Using traction and countertraction, the [place] retractor and irrigation probe was used to further dissect the bladder off the lower segment of the uterus. Bladder pillars and pubovesical fascia was dissected as well. Harmonic scalpel was used to obtain hemostasis where needed. Uterine manipulator was now palpable over the vaginal tissue. The right uterine pedicles were skeletonized and coagulated with the LigaSure. Good hemostasis was obtained. Same procedure was performed on the contralateral side. Cardinal ligaments were transected on both sides. Once good hemostasis was obtained, colpotomy was performed using the LigaSure hook from both sides. Uterus was removed through the vagina while still attached to the uterine manipulator. The bulb was attached to the uterine manipulator was reinserted into the vagina to establish pneumoperitoneum. With a grasper, the remaining section of the left ovary and tube were positioned anteromedially. The left fallopian tube is transected away from the ovary in order to preserve blood flow to the ovary.. Same procedure was performed on contralateral sode Both ovaries are preserved. EndoStitch closure device was passed through the 11 mm port on the left. Using the [place] grasper for traction, colpotomy closure was performed. The uterosacral ligaments incorporated into the closure in order to decrease the risk of prolapse. Lapro ties were used with the EndoStitch. The 11-mm trocar site was closed with a Ranjeet-Crooks under direct visualization. Attention was paid to the cystoscopy part of the procedure where a cystoscope was introduced into the bladder. There are no sutures seen in the bladder. There were no gross blood seen in the bladder as well. The bubble sign is noted showing the bladder was a close cavity. Both ureters were seen and there was efflux from both uterus. The skin incisions are closed with Dermabond, except for the 11-mm trocar site, which was closed with 4-0 Monocryl. The patient was returned to recovery in stable condition. Inspection of the vagina shows the vaginal cuff was intact. All instruments were removed from the vagina and the bladder and accounted for x2. I attest to the content of the Intraoperative Record and any orders documented therein. Any exceptions are noted below. Spa Technician was necessary for retraction and manipulation of instruments in order to provide for a safe operation
[2023-12-25] MEDS: LABETALOL HCL IV 5 MG/ML 20ML IV STA (15:00)
[2023-12-25] MEDS: fentaNYL citrate PF 100 MCG/2 ML VIAL IV PRN (15:20)
--- NOTE | 2023-12-25 15:22 | Anesthesiology Progress Note ---
Date of Service December 25, 2023 Anesthesia Post Procedure Vital Signs Vital Signs: Temp Pulse Pulse Resp BP Pulse Ox O2 Del Method 12/25/23 15:15 83 18 153/113 H 94 Oxymask 12/25/23 15:05 80 16 153/104 H 95 Oxymask 12/25/23 14:55 85 18 161/126 H 94 Oxymask 12/25/23 14:45 83 20 167/117 H 96 Oxymask 12/25/23 14:35 92 H 18 165/106 H 96 Oxymask 12/25/23 14:25 87 20 153/103 H 95 Oxymask 12/25/23 14:15 36 C L 88 16 129/101 H 93 Oxymask 12/25/23 10:36 136/108 H 12/25/23 10:16 36.8 C 93 H 20 95 Room Air O2 Flow Rate 12/25/23 15:15 2 12/25/23 15:05 2 12/25/23 14:55 2 12/25/23 14:45 4 12/25/23 14:35 4 12/25/23 14:25 8 12/25/23 14:15 8 12/25/23 10:36 12/25/23 10:16 Pain Intensity Lower Abdomen: Pain Intensity: 9 Transfer of Care Handoff Completed per policy Notes Mental Status: alert / awake / arousable Patient Amnestic to Procedure: Yes Nausea / Vomiting: adequately controlled Pain: adequately controlled Airway Patency, RR, SpO2: stable & adequate BP & HR: stable & adequate Hydration State: stable & adequate Anesthetic Complications: no major complications apparent
[2023-12-25] MEDS: HYDROmorphone INJ 2 MG/ML SYR/VIAL ONE (16:30)
[2023-12-25] MEDS: HYDROmorphone INJ 2 MG/ML SYR/VIAL IV STA (16:41)
[2023-12-25] MEDS: HYDROmorphone HCL 4 MG TAB PO PRN (17:53)
[2023-12-25] MEDS: hydrALAZINE HCL 20 MG/ML VIAL IV STA (18:05)
--- OUTSIDE RECORDS SUMMARY | 2023-12-25 18:59 | External Medical Summary | Summary of Care ---
Author Name Unknown Organization [facility] Address [address] [facility] [place] [address] Phone [phone] Care Team Providers Care Substance Addiction Coordinator Name Role Phone Angelic Pereira DO Primary Care Provider [phone] Reason for Visit * Reason Comments Pre-Op Testing Encounter Details Date Type Department Care Team (Late st Contact Info) Description 12/14/2023 3:45 PM EDT Office Visit Gynecology/Obstetric s Nenita Metz [address] [place] [address] Aiden Appiah MD [address] [place] [address] Preop testing*; Pelvic pain in female Allergies Active Allergy Reactions Criticality Noted Date Comments Justicia Adhatoda High 01/02/2023 Other reaction(s): Anaphylaxis Morphine Hives High 12/30/2012 Other reaction(s): Hives Mushroom Extract Complex Hives High 05/21/2015 mushrooms Other reaction(s): Hives Peanut Butter Flavor Hives 05/21/2015 Peanuts, nuts Penicillins Unknown High 12/30/2012 Told as a child Other reaction(s): Difficulty Breathing documented as of this encounter (statuses as of 12/14/2023) Medications Medication Sig Dispensed Refills Start Date End Date Status Blood Pressure Monitoring (ADULT BLOOD PRESSURE CUFF LG) KITIndications:HT N, goal below 130/80 Use daily for blood pressure checks 1 Kit 0 01/20/2018 Active ibuprofen (MOTRIN) 800 MG TabletIndications :Tooth pain Take 1 Tab by mouth 3 times a day. with food for pain 30 Tab 1 01/07/2020 Active Proventil HFA 108 (90 Base) MCG/ACT Inhalation Aerosol SolutionIndicatio ns:Acute cough,Acute bronchitis, antibiotics not indicated Inhale by mouth 2 Puffs every 4 hours as needed for Congestion or Wheezing. 18 g 0 06/01/2022 Active Folic Acid 400 MCG Oral Tablet DAILY IN THE MORNING 0 09/09/2022 Active Dicyclomine HCl 10 MG Oral Capsule (Bentyl) Take 1 Capsule by mouth 4 times a day before meals and at bedtime. 0 Active Multivitamin Adult Oral Tablet Take 1 Tablet by mouth in the morning. 0 Active Thiamine HCl 100 MG Oral Tablet (vitamin B-1) Take 1 Tablet by mouth in the morning. 0 Active EpiPen 2-Dorian 0.3 MG/0.3ML Injection Solution Auto-injector For a severe reaction: Place orange end against the outer thigh, press firmly, hold in place for 10 seconds and go to the Emergency room. 2 Each 2 04/28/2023 Active diazePAM 5 MG Oral Tablet (Valium) Take 1 tab 30 minutes prior to MRI, 1 tab at facility if needed then additional tab if needed 3 Tablet 0 09/15/2023 Active Cephalexin 500 MG Oral Capsule Take 1 Capsule by mouth in the morning and 1 Capsule at noon and 1 Capsule before bedtime. Do all this for 10 days. 30 Capsule 0 12/04/2023 4 Active Additional Information Patient not taking.Reported on 12/14/2023 metroNIDAZOLE 500 MG Oral Tablet (Flagyl) Take 1 Tablet by mouth in the morning and 1 Tablet before bedtime. Do all this for 10 days. 20 Tablet 0 12/04/2023 4 Active Additional Information Patient not taking.Reported on 12/14/2023 Cariprazine HCl 1.5 MG Oral Capsule (Vraylar) Take 1 Capsule by mouth in the morning. 0 Active Prazosin HCl 1 MG Oral Capsule (Minipress) Take 1 Capsule by mouth at bedtime. 0 Active lamoTRIgine 25 MG Oral Tablet (LaMICtal) Lamotrigine (Lamictal) 25 mg tablets.Take this medicatio as instructed below: 1 tab by mouth twice a day for 1 week Then 2 tabs by mouth twice a day for 1 week Then 3 tabs by mouth twice a day for 1 week Then 4 tabs by mouth twice a day and continue Please pay special attention for any rash, which can be a sign of a potentially serious side effect. If this occurs please stop the medication and call your doctor. 140 Tablet 0 12/09/2023 Active traMADol HCl 50 MG Oral Tablet (Ultram)Indicatio ns:Pelvic pain in female Take 1 Tablet by mouth every 6 hours as needed for Pain, Severe. 24 Tablet 0 12/14/2023 Active traMADol HCl 50 MG Oral Tablet (Ultram) Take 1 Tablet by mouth every 6 hours as needed for Pain, Severe. 12 Tablet 0 12/04/2023 Discontinue d(Refill) documented as of this encounter (statuses as of 12/14/2023) Active Problems Problem Noted Date Diagnosed Date Pelvic pain in female 12/04/2023 Alcoholic hepatitis without ascites 09/11/2022 Fatty liver 09/11/2022 Heart failure 09/11/2022 Major depressive disorder with single episode Alcohol abuse with intoxication, unspecified Family circumstance 09/11/2022 Chronic hypokalemia 03/29/2021 Infection of tooth 03/29/2021 Generalized anxiety disorder 09/09/2019 Post-traumatic stress disorder, unspecified 08/18 Opioid dependence in remission 04/17/2017 Hypertension 08/17/2016 Hypertensive urgency 07/15/2012 Bipolar 1 disorder Overview: Dr Neal, [facility] Tobacco abuse documented as of this encounter (statuses as of 12/14/2023) Resolved Problems Problem Noted Date Diagnosed Date Resolved Date Class 2 severe obesity with serious comorbidity and body mass index (BMI) of 38.0 to 38.9 in adult 09/11/2022 05/28/2023 Body mass index (BMI) of 40. 0 to 44.9 in adult 10/24/2019 09/11/2022 Overview: Per Obesity protocol Seizure-like activity 01/06/20192022 BMI 29.0-29.9,adult 04/30/2016 09/11/19 23 Overview: 185 lbs documented as of this encounter (statuses as of 12/14/2023) Immunizations Name Administration Dates Next Due COVID-19 mRNA, LNP-s, No Pre serve, 2-Dose Series (Pfizer) 08/07/2021 TDAP (age 10 and older)(Boostrix) 02/25/2019 documented as of this encounter Social History Tobacco Use Types Packs/Day Years Used Date Smoking Tobacco: Every Day Cigarettes 0.8 19 Passive Smoke Exposure: Current Smokeless Tobacco: Never Alcohol Use Standard Drinks/Week Comments Not Currently 0 (1 standard drink = 0.6 oz pure alcohol) last drink 11/03/22, 2 shots vodka with OJ PHQ-2 Answer Date Recorded PHQ Adult Total Score 12 01/29/2023 Hunger Vital Sign Answer Date Recorded Within the past 12 months, y ou worried that your food would run out before you got the money to buy more. Never true 01/30/20 Within the past 12 months, t he food you bought just didn't last and you didn't have money to get more. Never true 01/29/2023 Education Answer Date Recorded What is the highest level of school you have completed or the highest degree you have received? GED or equivalent Sex and Gender Information Value Date Recorded Sex Assigned at Female 10/20/2019 1:40 PM EST Gender Identity Female 10/20/2019 1:40 PM EST Sexual Orientation Straight 09/09/2019 11 :27 AM EST Job Start Date Occupation Industry Not on file Not on file Not on file documented as of this encounter Last Filed Vital Signs Vital Sign Reading Time Taken Comments Blood Pressure 142/108 12/14/2023 3:34 PM EDT Pulse - - Temperature 37.1 C (98.8 F) 12/14/2023 3:34 PM ED T Respiratory Rate - - Oxygen Saturation - - Inhaled Oxygen Concentration - - Weight 86.6 kg (191 lb) 12/14/2023 3:34 PM EDT Height 165.1 cm (5' 5") 12/14/2023 3:34 PM EDT Body Mass Index 31.78 12/14/2023 3:34 PM EDT documented in this encounter Progress Notes * Aiden Appiah MD - 12/14/2023 4:04 PM EDT Pt here for preop History and physical examination done Consnet obtained documented in this encounter H&P Notes * Aiden Appiah MD - 12/14/2023 4:01 PM EDT [address] [facility] [address] Appt line [phone] Context: (HPI) 37 year old status post endometrial ablation 4 years ago. Patient has had amenorrhea since it was very pleased with it. The last 3 months patient's has been experiencing heavy irregular menses with severe pain. Patient was seen in the emergency room on 11/15/2023. Pelvic ultrasound done showed use is 7.2 x 4.6 x 5.0. Both ovaries are unremarkable blade ovary however has an a nechoic structure 1.5 x 1.8 x 0.8 centimeters consistent with simple cyst. Patient is here today todiscuss next step in management. Patient is a smoker history of drug use in the past. OB History Para Term AB Living 5 4 0 0 1 4 SAB IAB Ectopic Multiple Live Births 1 0 0 0 4 # Outcome Date GA Lbr Ray/2nd Weight Sex Delivery Anes PTL Lv 5 Para 4 Para 3 Para 2 Para 1 SAB Obstetric Comments 4 c sections. 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 Denies h/o STDs and abnormal Paps. Her past medical/surgical histories and current medications are recorded in the electronic record. Past Surgical History: Procedure Laterality Date ANESTH, CS DELIVERY x 4 CHOLECYSTOTOMY OR CHOLECYSTOSTOMY, PERC 11/2014 COLONOSCOPY, DIAGNOSTIC (RECTUM) 09/08/2022 benign adenomatous polyps, diverticulosis, fair prep, repeat 5 yrs / [facility] EGD, FLEXIBLE, DIAGNOSTIC 09/08/2022 portal hypertensive gastropathy, esophagitis / [facility] HEMORRHOIDECTOMY, INTERNAL, 2 + COLUMNS N/A 05/08/2023 HEMORRHOIDECTOMY EXTERNAL AND INTERNAL COMPLEX performed by Saul Fitzgerald MD at [facility] HYSTEROSCOPY;ENDOMETRIAL ABLAT 09/29/2019 HYSTEROSCOPY ENDOMETRIAL ABLATION performed by Tabitha Mcgregor MD at [facility] LIGATE/CUT OVIDUCT(S) REMOVAL OF APPENDIX SURGICAL PROCEDURE ONLY Bilateral 05/08/2023 HEMORRHOIDECTOMY EXTERNAL AND INTERNAL COMPLEX by Dr. Saul Tompkins.e SURGICAL REMOVAL, ERUPTED TOOTH AND BONE 04/2016 6 teeth Family History Problem Relation Age of Onset Bipolar Disorder Mother Heart attack Mother Stroke Mother Alcohol and Other Disorders Associated Father Other (Tachycardia) Sister Urolithiasis Sister Drug abuse Sister Kidney disease Sister Urolithiasis Sister Autism spectrum disorder Brother Heart attack Grandmother (Maternal) Breast Cancer Grandmother (Maternal) No Known Problems Grandfather (Maternal) Alcohol and Other Disorders Associated Grandmother (Paternal) No Known Problems Grandfather (Paternal) Liver disease Aunt (Paternal) Alcohol and Other Disorders Associated Aunt (Paternal) Coronary Artery disease Other Cousin with "major heart probems" Breast Cancer Aunt (Maternal) History Social History Socioeconomic History Marital status: Spouse name: Tonio Number of children: 5 Years of education: Not on file Highest education level: GED or equivalent Occupational History Not on file Tobacco Use Smoking status: Every Day Current packs/day: 0.75 Average packs/day: 0.8 packs/day for 19.0 years (14.3 ttl pk-yrs) Types: Cigarettes Passive exposure: Current Smokeless tobacco: Never Vaping Use Vaping Use: Never used Substance and Sexual Activity Alcohol use: Not Currently Comment: last drink 11/03/22, 2 shots vodka with OJ Drug use: Yes Types: Marijuana Comment: delta 8 gummies, a few nights a week Sexual activity: Yes Partners: Male control/protection: Surgical Comment: BTL Other Topics Concern Not on file Social History Narrative Merged History Encounter Social Determinants of Health Financial Resource Strain: Not on file Food Insecurity: No Food Insecurity (01/29/2023) Hunger Vital Sign Worried About Running Out of Food in the Last Year: Never true Ran Out of Food in the Last Year: Never true Transportation Needs: Not on file Physical Activity: Not on file Stress: Not on file Social Connections: Not on file Intimate Partner Violence: Not on file Housing Stability: Not on file Pelvic sono Narrative & Impression PROCEDURE INFORMATION: Exam: US Duplex Artery and Vein of the Abdominal and/or Reproductive Organs, Complete Exam date and time: 12/04/2023 5:18 AM Clinical indication: Pelvic pain; Patient HX: Appy, ablation; Additional info: Eval severe rlq pain, HX torsion same side TECHNIQUE: Imaging protocol: Real-time duplex ultrasound scan of the arterial and venous flow of the abdominal and/or reproductive organs with B-mode, color Doppler flow and spectral waveform analysis with image documentation. Exam focused on the region of clinical concern. Complete exam. Duplex exam was performed to evaluate for vascular conditions. COMPARISON: No relevant prior studies available. FINDINGS: Right ovary: Normal arterial and venous flow. Left ovary: Normal arterial and venous flow. IMPRESSION IMPRESSION: No evidence of ovarian torsion. PROCEDURE INFORMATION: Exam: US Pelvis, Transvaginal Exam date and time: 12/04/2023 5:18 AM Age: 38 years old Clinical indication: Pelvic pain; Patient HX: Appy, ablation; Additional info: Eval severe rlq pain, HX torsion same side TECHNIQUE: Imaging protocol: Real-time transvaginal pelvic ultrasound with image documentation. Transvaginal imaging was used for better evaluation of the endometrium, adnexa, and/or cervix. COMPARISON: US PELVIS TRANS-VAGINAL NON-OB 05/07/2023 2:16 PM FINDINGS: Uterus: Uterus is heterogeneous and anteverted measuring 8.3 x 5 x 6 cm. Endometrial echo is poorly seen. Cervix: There is a 1 cm nabothian cyst. Right ovary/adnexa: There are multiple thick-walled follicles in the right ovary, largest measuring 2.1 x 2.1 x 1.8 cm. Left ovary/adnexa: Left ovary is normal in size and echogenicity measuring 1.6 x 2.1 x 1.9 cm. Intraperitoneal space: No free fluid. IMPRESSION: 1. Heterogeneous uterus which may be related to myomatous involvement. 2. Multiple right ovarian follicular cysts measuring up to 2.1 cm. Physical Exam: BP 142/108 | Ht 1.651 m (5' 5") | Wt 86.6 kg (191 lb) | BMI 31.78 kg/m | BSA 1.99 m CV: S1, S2. Regular rate and Rhythm Lungs: Clear to auscultation bilaterally. Abdomen: Soft Extremities: Soft non tender calves bilaterally. A/P: 38 year old year old Failed endometrial ablation Chronic pelvic pain We have discussed the risk alternatives and complications of surgery including more surgery to correct complication,risk of anesthesia,infection,damage to internal organs and . We have also discussed the possibility that pt's present situation may not change. Pt is aware and wishes to proceed to surgery. Consent is signed Pt scheduled for the ff procedures 1. Total laparoscopic hysterectomy 2. Bilateral salpingectomy 4. Possible laparotomy 5. Possible cystoscopy Aiden Appiah MD 12/14/2023 4:01 PM documented in this encounter Nursing Notes * Reyna Mayen LPN - 12/14/2023 3:58 PM EDT Pre-op, DOS 12/25/23. laparoscopic total hysterectomy, bilateral salpingectomy and cystoscopy as any indicated procedure documented in this encounter Plan of Treatment Upcoming Encounters Date Type Department Care Team (Late st Contact Info) Description 01/06/2024 11:45 AM EDT [facility] [address] [place] [address] Aiden Appiah MD [address] [place] [address] 03/09/2024 9:20 AM EDT Office Visit Neurology [facility] [address] [place] [address] Josette Beth MD [address] [place] [address] Scheduled Procedures Name Priority Associated Diagnoses Date/Ti me ESOPHAGOGASTRODUODENOSCOPY ( EGD), FLEXIBLE, TRANSORAL, DIAGNOSTIC Recall Portal hypertension (HCC) COLONOSCOPY FLEXIBLE PROXIMAL DIAGNOSTIC Recall History of colon polyps Health Maintenance Due Date Last Done Comments Pneumococcal Vaccine: Pediatrics (0 to 5 Years) and At-Risk Patients (6 to 64 Years) (1 of 2 - PCV) 11/26/1993 Albumin/Creatinine Ratio 11/26/2005 Hepatitis B (1 of 3 - 19+ 3-dose series) 11/26/2006 Depression, Most Recent Score >= 10 (will fire each visit until score < 10) 01/30/2023 01/29/2023 COVID-19 Vaccine (2 - season) 2023 08/07/2021 Influenza Vaccine (FLU shot) (Season Ended) 2024 GFR 12/03/2024 12/04/2023, 06/18, 04/29/2023, Additional history exists Pap Smear 04/29/2026 04/29/2023, 07/17, 07/28/2016, Additional history exists Diabetes Screening 12/03/2026 12/04/2023, 1 09/13/2022, 04/29/2023, Additional history exists Cervical Cancer Screening 04/29/2028 HPV/Co-Test 04/29/2028 04/29/2023 DTaP,Tdap,and Td Vaccines (2 - Td or Tdap) 02/25/2029 02/25/2019 Colonoscopy 11/26/2032 09/08/2022, 09/08/2022 RETIRED - COLONOSCOPY-EVERY 5 YRS AGES 18-100 Discontinued 09/08/2022, 09/08/2022 GARDASIL-HPV IMMUNIZATION SERIES Aged Out No longer eligible based on patient's age to complete this topic MENINGOCOCCAL (MENACTRA/MENVEO) Aged Out No longer eligible based on patient's age to complete this topic documented as of this encounter Medical Devices Not on filedocumented as of this encounter Visit Diagnoses Diagnosis Preop testing- Primary Preoperative examination, unspecified Pelvic pain in female Unspecified symptom associated with female genital organs documented in this encounter Advance Directives Latest Code Status on File Code Status Date Activated Date Inactivated Comments Full Code 05/08/2023 9:10 AM 05/08/2023 5:43 PM This order reflects the patients wishes and were consensually agreed upon. Question Answer Comments Discussion of Advance Directives occurred with: Patient Code Status History Code Status Date Activated Date Inactivated Comments Full Code 05/08/2023 9:06 AM 05/08/2023 9:10 AM This order reflects the patients wishes and were consensually agreed upon. Question Answer Comments Discussion of Advance Directives occurred with: Patient Care Teams Substance Addiction Coordinator Relationship Specialty Start Date End Date Angelic Pereira DO [address] [place] [address] PCP - General Family Medicine 01/20/18 documented as of this encounter
--- OUTSIDE RECORDS SUMMARY | 2023-12-25 18:59 | External Medical Summary | Summary of Care ---
Author Name Unknown Organization [facility] Address [address] [facility] [address] Phone [phone] Care Team Providers Care Senior Chemical Process Engineer Name Role Phone Angelic Pereira DO Primary Care Provider [phone] Reason for Visit * Reason Onset Date Comments Medication Question 12/23/2023 Encounter Details Date Type Department Care Team (Late st Contact Info) Description 12/23/2023 Telephone Gynecology/Obstetrics [facility] [address] [place] [address] Aiden Appiah MD [address] [place] [address] Medication Question Allergies Active Allergy Reactions Criticality Noted Date Comments Justicia Adhatoda High 01/02/2023 Other reaction(s): Anaphylaxis Morphine Hives High 12/30/2012 Other reaction(s): Hives Mushroom Extract Complex Hives High 05/21/2015 mushrooms Other reaction(s): Hives Peanut Butter Flavor Hives 05/21/2015 Peanuts, nuts Penicillins Unknown High 12/30/2012 Told as a child Other reaction(s): Difficulty Breathing documented as of this encounter (statuses as of 12/23/2023) Medications Medication Sig Dispensed Refills Start Date End Date Status Blood Pressure Monitoring (ADULT BLOOD PRESSURE CUFF LG) KITIndications:HTN, goal below 130/80 Use daily for blood pressure checks 1 Kit 0 01/20/2018 Active ibuprofen (MOTRIN) 800 MG TabletIndications:T ooth pain Take 1 Tab by mouth 3 times a day. with food for pain 30 Tab 1 01/07/2020 Active Proventil HFA 108 (90 Base) MCG/ACT Inhalation Aerosol SolutionIndications :Acute cough,Acute bronchitis, antibiotics not indicated Inhale by [...] if needed 3 Tablet 0 09/15/2023 Active Cariprazine HCl 1.5 MG Oral Capsule (Vraylar) [...] Active traMADol HCl 50 MG Oral Tablet (Ultram)Indications :Pelvic pain in female Take 1 Tablet by mouth every 6 hours as needed for Pain, Severe. 24 Tablet 0 12/14/2023 Active documented as of this encounter (statuses as of 12/23/2023) Active Problems Problem Noted Date Diagnosed Date [...] 07/15/2012 Bipolar 1 disorder Overview: Dr Neal, [facility] Tobacco abuse documented as of this encounter (statuses as of 12/23/2023) Resolved Problems Problem Noted Date Diagnosed Date [...] as of this encounter (statuses as of 12/23/2023) Immunizations Name Administration Dates Next Due COVID-19 [...] money to buy more. Never true 01/30/20 23 Within the past 12 months, t he [...] on file documented as of this encounter Miscellaneous Notes * Telephone Encounter - Gina Ramirez LPN - 12/23/2023 3:31 PM EDT Patient notified. * Telephone Encounter - Reyna Mayen LPN - 12/23/2023 3:06 PM EDT Attempted TC to patient. Line buzzes loudly. Sent myg. * Telephone Encounter - Gatito Do roadside mechanic - 12/23/2023 2:44 PM EDT Pt requesting a call back today from DR office. Pt stated she needs to speak to DR about a letter she received about her medication and her surgery. Please call pt back at [phone]. Thank You, Gatito Do [facility] Extruder Operator II Centralized Clinical Pharmacy Services (Formerly Telepharmacy) 12/23/2023, 2:45 PM documented in this encounter Plan of Treatment Upcoming Encounters Date Type Department Care Team (Late st Contact Info) Description 01/06/2024 11:45 AM EDT Office Visit Gynecology/Obstetrics [facility] [address] [place] [address] Aiden Appiah MD [address] [place] [address] 03/09/2024 9:20 AM EDT Office Visit [facility] [employer] [address] [facility] [place] [address] Josette Beth MD [address] [place] [address] Scheduled Procedures Name Priority Associated Diagnoses Date/Ti [...] 10) 01/30/2023 01/29/2023 COVID-19 Vaccine (2 - 2022- season) 2023 08/07/2021 Influenza Vaccine (FLU shot) [...] Not on filedocumented as of this encounter Advance Directives Latest Code Status [...] Advance Directives occurred with: Patient Care Teams Senior Chemical Process Engineer Relationship Specialty Start Date End Date Angelic Pereira DO [address] [place] [facility] [place] [address] PCP - General Family Medicine 01/20/18 documented as of this encounter
--- OUTSIDE RECORDS SUMMARY | 2023-12-25 18:59 | External Medical Summary | Summary of Care ---
Author Name Unknown Organization [facility] Address [address] [facility] [place] [address] Phone [phone] Care Team Providers Care Newspaper Reporter Name Role Phone Angelic Pereira DO Primary Care Provider [phone] Reason for Visit * Reason Onset Date Comments Medication Question 12/23/2023 Encounter Details Date Type Department Care Team (Late st Contact Info) Description 12/23/2023 Telephone Gynecology/Obstetrics [facility] [address] [place] [address] Aiden Appiah MD [address] [place] [address] Medication Question Allergies Active Allergy Reactions Criticality [...] 07/15/2012 Bipolar 1 disorder Overview: Dr Neal, [facility] Tobacco abuse documented as of this [...] encounter Miscellaneous Notes * Telephone Encounter - Reyna Mayen LPN - 12/23/2023 3:06 PM EDT Attempted TC to patient. Line buzzes loudly. Sent myg. * Telephone Encounter - Gatito Do, cook school cafeteria - 12/23/2023 2:44 PM EDT Pt requesting a call back today from DR office. Pt stated she needs to speak to DR about a letter she received about her medication and her surgery. Please call pt back at [phone]. Thank You, Gatito Do [facility] Core Inspector II Centralized Clinical Pharmacy Services (Formerly Telepharmacy) 12/23/2023, 2:45 PM documented in this encounter Plan of Treatment Upcoming Encounters Date Type Department Care Team (Late st Contact Info) Description 01/06/2024 11:45 AM EDT Office Visit Gynecology/Obstetrics [facility] [address] [place] [address] Aiden Appiah MD [address] [place] [address] 03/09/2024 9:20 AM EDT Office Visit Neurology [facility] [place] [address] [facility] [address] [place], [place] [address] Josette Beth MD [address] [facility] [address] [place] [address] Scheduled Procedures Name Priority Associated Diagnoses Date/Ti [...] Advance Directives occurred with: Patient Care Teams Newspaper Reporter Relationship Specialty Start Date End Date Angelic Pereira DO [address] [facility] [place] [address] PCP - General Family Medicine 01/20/18 documented as of this encounter
--- OUTSIDE RECORDS SUMMARY | 2023-12-25 18:59 | External Medical Summary | Summary of Care ---
Author Name Unknown Organization [facility] Address [address] [place] [facility] [place] [address] Phone [phone] Care Team Providers Care Supervisor Webbing Name Role Phone Angelic Pereira DO Primary Care Provider [phone] Encounter Details Date Type Department Care Team (Late st Contact Info) Description 09/15/2023 Telephone Neurology [facility] [address] [place] [address] Josette Beth MD [address] [place] [address] Allergies Active Allergy Reactions Criticality Noted Date Comments Justicia Adhatoda High 01/02/2023 Other reaction(s): Anaphylaxis Morphine Hives High 12/30/2012 Other reaction(s): Hives Mushroom Extract Complex Hives High 05/21/2015 mushrooms Other reaction(s): Hives Peanut Butter Flavor Hives 05/21/2015 Peanuts, nuts Penicillins Unknown High 12/30/2012 Told as a child Other reaction(s): Difficulty Breathing documented as of this encounter (statuses as of 12/15/2023) Medications Medication Sig Dispensed Refills Start Date [...] Emergency room. 2 Each 2 04/28/2023 Active Albuterol Sulfate (2.5 MG/3ML) 0.083% Inhalation Nebulization Solution (Proventil) Inhale via nebulizer 1 Vial every 4 hours as needed for Wheezing. 120 mL 1 06/02/2022 4 Discontinued Cholestyramine Light 4 GM Oral Packet (Prevalite) Take 0.5 Packets by mouth daily as needed. Loose stools 0 4 Discontinued Preparation H 0.25-14-74.9 % Rectal Ointment (Preparation H)Indications:Hem orrhoids, unspecified hemorrhoid type Administer into the rectum 4 times a day as needed for Other (hemmorhoids). 28 g 1 04/22/2023 4 Discontinued Nitroglycerin 0.4 % Rectal Ointment Administer 0.5 g into the rectum in the morning and 0.5 g before bedtime. 30 g 2 04/28/2023 4 Discontinued oxyCODONE HCl 5 MG Oral Capsule (Oxy IR)Indications:Po stoperative pain Take 1 Capsule by mouth every 4 hours as needed for Pain, Moderate or Pain, Severe. 18 Capsule 0 05/15/2023 4 Discontinued oxyCODONE-Acetami nophen 5-325 MG Oral Tablet (Percocet) Take 1 Tablet by mouth every 6 hours as needed for Pain, Moderate. 10 Tablet 0 05/18/2023 4 Discontinued Lisinopril 10 MG Oral Tablet (Prinivil)Indicat ions:HTN, goal below 130/80 take 1 tablet by mouth every morning 90 Tablet 3 05/29/2023 4 Discontinued documented as of this encounter (statuses as of 12/15/2023) Active Problems Problem Noted Date Diagnosed Date [...] 07/15/2012 Bipolar 1 disorder Overview: Dr Neal, [facility] Tobacco abuse documented as of this encounter (statuses as of 12/15/2023) Resolved Problems Problem Noted Date Diagnosed Date [...] as of this encounter (statuses as of 12/15/2023) Immunizations Name Administration Dates Next Due COVID-19 mRNA, LNP-s, No Pre serve, 2-Dose Series (Coridon) 08/07/2021 TDAP (age 10 and older)(Boostrix) 02/25/2019 [...] encounter Miscellaneous Notes * Telephone Encounter - Berkley Gimenez CPhT - 09/15/2023 11:23 AM EST Patient is calling to check the status of the medication. Patient is upset that she has been transferred multiple times. Warm transfer to [facility], specialty line. Thank you, Berkley Gimenez Land Resource Specialist [facility] ([facility]) (Formerly Telepharmacy) 09/15/2023,11:30 AM * Telephone Encounter - Sheryl Dumont CPhT - 09/15/2023 11:05 AM EST Pt calling regarding specialty medication transfer to specialty line . Thank you, Sheryl Dumont CPhT Land Resource Specialist II [facility] ([facility]) (Formerly Telepharmacy) 09/15/2023,11:05 AM documented in this encounter Plan of Treatment Upcoming Encounters Date Type Department Care Team (Late st Contact Info) Description 01/06/2024 11:45 AM EDT Office Visit Gynecology/Obstetrics Nenita Metz [address] [place] [address] Aiden Appaih MD [address] [place] [address] 03/09/2024 9:20 AM EDT Office Visit Neurology Jessica Cedillo [place] [address] [facility] [place] [address] Josette Beth MD [address] [facility] [place] [address] Scheduled Procedures Name Priority Associated Diagnoses Date/Ti [...] score < 10) 01/30/2023 01/29/2023 COVID-19 Vaccine ( - 2022- season) 2023 08/07/2021 Influenza Vaccine [...] Advance Directives occurred with: Patient Care Teams Supervisor Webbing Relationship Specialty Start Date End Date Angelic Pereira DO [address] [place] [address] PCP - General Family Medicine 01/20/18 documented as of this encounter
--- OUTSIDE RECORDS SUMMARY | 2023-12-25 18:59 | External Medical Summary | Summary of Care ---
Author Name Unknown Organization [facility] Address [address] [facility] [address] Phone [phone] Care Team Providers Care Topper Packer Name Role Phone Angelic Pereira DO Primary Care Provider [phone] Reason for Visit * Reason Onset Date Comments Amb. EEG 12/08/2023 Encounter Details Date Type Department Care Team (Late st Contact Info) Description 12/08/2023 Telephone Neurology [facility] [address] [place] [id number] Josette Beth MD [address] [place] [id number] Amb. EEG Allergies Active Allergy Reactions Criticality Noted Date Comments Justicia Adhatoda High 01/02/2023 Other reaction(s): Anaphylaxis Morphine Hives High 12/30/2012 Other reaction(s): Hives Mushroom Extract Complex Hives High 05/21/2015 mushrooms Other reaction(s): Hives Peanut Butter Flavor Hives 05/21/2015 Peanuts, nuts Penicillins Unknown High 12/30/2012 Told as a child Other reaction(s): Difficulty Breathing documented as of this encounter (statuses as of 12/16/2023) Medications Medication Sig Dispensed Refills Start Date [...] if needed 3 Tablet 0 09/15/2023 Active Azithromycin 250 MG Oral Tablet (Zithromax)Indica tions:Bloody sputum Take 2 tabs by mouth on the first day, then 1 tab daily on days two through five 6 Tablet 0 11/17/2023 4 Discontinued (Medication List Clean Up) predniSONE 20 MG Oral Tablet (Deltasone)Indica tions:Bloody sputum 1 tab 3 times a day for 3 days, then 1 tab 2 times a day for 3 days, then 1 tab daily for 3 days 18 Tablet 0 11/17/2023 4 Discontinued (Medication List Clean Up) Cephalexin 500 MG Oral Capsule Take 1 Capsule by mouth in the morning and 1 Capsule at noon and 1 Capsule before bedtime. Do all this for 10 days. 30 Capsule 0 12/04/2023 4 Additional Information Patient not taking.Reported on 12/14/2023 metroNIDAZOLE 500 MG Oral Tablet (Flagyl) Take 1 Tablet by mouth in the morning and 1 Tablet before bedtime. Do all this for 10 days. 20 Tablet 0 12/04/2023 4 Additional Information Patient not taking.Reported on 12/14/2023 traMADol HCl 50 MG Oral Tablet (Ultram) Take 1 Tablet by mouth every 6 hours as needed for Pain, Severe. 12 Tablet 0 12/04/2023 Discontinued (Refill) documented as of this encounter (statuses as of 12/16/2023) Active Problems Problem Noted Date Diagnosed Date [...] 07/15/2012 Bipolar 1 disorder Overview: Dr Neal, [facility] Tobacco abuse documented as of this encounter (statuses as of 12/16/2023) Resolved Problems Problem Noted Date Diagnosed Date [...] as of this encounter (statuses as of 12/16/2023) Immunizations Name Administration Dates Next Due COVID-19 mRNA, LNP-s, No Pre serve, 2-Dose Series ([employer]) 08/07/2021 TDAP (age 10 and older)(Boostrix) 02/25/2019 [...] encounter Miscellaneous Notes * Telephone Encounter - Lynne Ospina LPN - 12/16/2023 1:33 PM EDT Letter sent * Telephone Encounter - Josette Beth MD - 12/08/2023 9:02 AM EDT She is correct; she did have a 72h EEG, which was normal; I think the spells were seizures despite the nl 72 h EEG Give her 2 options: see an epilepsy sub specialist or have me start her on an anti seizure med, likely lamotrigine documented in this encounter Plan of Treatment Upcoming Encounters Date Type Department Care Team (Late st Contact Info) Description 01/06/2024 11:45 AM EDT Office Visit Gynecology/Obstetrics Nenita Metz [address] [place] [address] Aiden Appiah MD [address] [place] [address] 03/09/2024 9:20 AM EDT Office Visit Neurology Jessica Cedillo [place] [address] [facility] [place] [address] Josette Beth MD [address] [facility] [place] [address] Scheduled Procedures Name Priority Associated Diagnoses Date/Ti [...] Advance Directives occurred with: Patient Care Teams Topper Packer Relationship Specialty Start Date End Date Angelic Pereira DO [address] [place] [address] PCP - General Family Medicine 01/20/18 documented as of this encounter
--- OUTSIDE RECORDS SUMMARY | 2023-12-25 18:59 | External Medical Summary | Summary of Care ---
Author Name Unknown Organization [facility] Address [address] [facility] [address] Phone [phone] Care Team Providers Care Licensed Nurse Practitioner Name Role Phone Angelic Pereira DO Primary Care Provider [phone] Reason for Visit * Reason Onset Date Comments Advice 11/26/2023 Encounter Details Date Type Department Care Team (Late st Contact Info) Description 11/26/2023 Telephone Gynecology/Obstetrics [facility] [address] [place] [address] Oksana Appiah MD [address] [place] [address] Advice Allergies Active Allergy Reactions Criticality Noted Date [...] if needed 3 Tablet 0 09/15/2023 Active traMADol HCl 50 MG Oral Tablet (Ultram) Take 1 Tablet by mouth every 6 hours as needed for Pain, Severe. 24 Tablet 0 12/23/2023 Active Azithromycin 250 MG Oral Tablet (Zithromax)Indica tions:Bloody sputum Take 2 tabs by mouth on the first day, then 1 tab daily on days two through five 6 Tablet 0 11/17/2023 12/09/2023 Discontinue d(Medicatio n List Clean Up) predniSONE 20 MG Oral Tablet (Deltasone)Indica tions:Bloody sputum 1 tab 3 times a day for 3 days, then 1 tab 2 times a day for 3 days, then 1 tab daily for 3 days 18 Tablet 0 11/17/2023 12/09/2023 Discontinue d(Medicatio n List Clean Up) documented as of this encounter (statuses as [...] 07/15/2012 Bipolar 1 disorder Overview: Dr Neal, [facility] Tobacco abuse documented as of this [...] Seizure-like activity 01/06/20192022 BMI 29.0-29.9,adult 04/30/2016 09/11/19 Overview: 185 lbs documented as of this [...] as of this encounter Miscellaneous Notes * Addendum Note - Oksana Appiah MD - 12/23/2023 3:25 PM EDTAddended by: OKSANA APPIAH on: 12/23/2023 03:25 PM Modules accepted: Orders * Telephone Encounter - Yumiko Anthony OSA - 11/30/2023 11:34 AM EDT Pt was scheduled for a pelvic exam and to discuss issues for today at 10:30 AM. The appt was canceled early this morning via text. I called pt to see if she had done this by mistake. I had to leave amessage and sent MyG. Pt called me back and stated that her car had broke down and she would need to reschedule. Pt was rescheduled for 12/13 at 3:45 PM. Pt aware. Pt advised that surgery may need rescheduled from 12/24 * Telephone Encounter - Yumiko Anthony OSA - 2023 9:27 AM EDT LM on pt VM to call. * Telephone Encounter - Blanquita Crawford MD - 11/26/2023 6:18 PM EDT Patient called answering service to talk to a doctor She c/o severe pain, she has been taking ibuprofen and Tylenol as much as she is allowed and no relief She started to have VB She is having surgery with Dr Appiah in December but she thinks it was moved to January or February She is very upset and using F words multiple times I told her go to ER if she has in severe pain and VB She is asking for stronger pain meds I informed her that I can not call in stronger meds and she needs to be seen in ER I will let Dr Appiah know about her call Thanks * Telephone Encounter - Clare Cedillo RN - 11/26/2023 3:52 PM EDT Pt is aware. Will have Yumiko look for sooner appt to come in to discuss surgery. Pt is aware that she still has a surgery date but this may be changed based on getting all the details arranged beforesurgery. I advised her that we do not want to johnson into this and have missed something or not planned for something. Pt is understanding. * Telephone Encounter - Clare Cedillo RN - 11/26/2023 3:25 PM EDT I spoke with Dr. Appiah. He said she can keep her surgery scheduled but needs to have an appointmentfor a pelvic exam prior to her surgery. * Telephone Encounter - Clare Cedillo RN - 11/26/2023 2:32 PM EDT Pt is having pain. She states that she was scheduled for her hysterectomy in december but was called andtold that Dr. Appiah wanted to push this to January or February. Pt does not feel that she can wait that long, pain greenberg.Will review with Dr. Appiah and call pt back. * Telephone Encounter - Yumiko Anthony OSA - 11/26/2023 1:58 PM EDT I called pt to schedule surgery. Pt is complaining of pain/cramping and bleeding. She would like toknow what she can do for this. Please advise. documented in this encounter Plan of Treatment Upcoming Encounters Date Type Department Care Team (Late st Contact Info) Description 01/06/2024 11:45 AM EDT Office Visit Gynecology/Obstetrics [facility] [address] [place] [address] Oksana Appiah MD [address] [place] [address] 03/09/2024 9:20 AM EDT Office Visit [facility] [address] [facility] [place] [address] Josette Beth MD [address] [facility] [place] [address] Scheduled Procedures Name Priority Associated Diagnoses Date/Ti [...] Advance Directives occurred with: Patient Care Teams Licensed Nurse Practitioner Relationship Specialty Start Date End Date Angelic Pereira DO [address] [place] [facility] [place] [facility] [place] [address] PCP - General Family Medicine 01/20/18 documented as of this encounter
--- OUTSIDE RECORDS SUMMARY | 2023-12-25 19:00 | External Medical Summary | Summary of Care ---
Author Name Unknown Organization [facility] Address [address] [facility] [address] Phone [phone] Care Team Providers Care Centrifugal Chiller Technician Name Role Phone Angelic Pereira DO Primary Care Provider [phone] Reason for Visit * Reason Onset Date Comments Med Request 12/09/2023 Encounter Details Date Type Department Care Team (Late st Contact Info) Description 12/09/2023 Telephone Neurology [facility] [place] [address] [place] [address] Josette Beth MD [address] [place] [address] Med Request Allergies Active Allergy Reactions Criticality Noted Date Comments Justicia Adhatoda High 01/02/2023 Other reaction(s): Anaphylaxis Morphine Hives High 12/30/2012 Other reaction(s): Hives Mushroom Extract Complex Hives High 05/21/2015 mushrooms Other reaction(s): Hives Peanut Butter Flavor Hives 05/21/2015 Peanuts, nuts Penicillins Unknown High 12/30/2012 Told as a child Other reaction(s): Difficulty Breathing documented as of this encounter (statuses as of 12/09/2023) Medications Medication Sig Dispensed Refills Start Date [...] days. 30 Capsule 0 12/04/2023 4 Active metroNIDAZOLE 500 MG Oral Tablet (Flagyl) Take 1 Tablet by mouth in the morning and 1 Tablet before bedtime. Do all this for 10 days. 20 Tablet 0 12/04/2023 4 Active traMADol HCl 50 MG Oral Tablet (Ultram) Take 1 Tablet by mouth every 6 hours as needed for Pain, Severe. 12 Tablet 0 12/04/2023 Active Cariprazine HCl 1.5 MG Oral Capsule [...] your doctor. 140 Tablet 0 12/09/2023 Active lamoTRIgine 25 MG Oral Tablet (LaMICtal) Lamotrigine (Lamictal) 25 mg tablets. Take this medicatio as instructed below: 1 tab [...] call your doctor. 140 Tablet 0 12/09/2023 4 Discontinue d(Medicatio n/Dose Changed) lamoTRIgine 100 MG Oral Tablet (LaMICtal) Take 1 Tablet by mouth in the morning and 1 Tablet before bedtime. 60 Tablet 3 12/09/2023 4 Discontinue d(Medicatio n/Dose Changed) documented as of this encounter (statuses as of 12/09/2023) Active Problems Problem Noted Date Diagnosed Date [...] as of this encounter (statuses as of 12/09/2023) Resolved Problems Problem Noted Date Diagnosed Date [...] as of this encounter (statuses as of 12/09/2023) Immunizations Name Administration Dates Next Due COVID-19 [...] encounter Miscellaneous Notes * Telephone Encounter - Rika Jara LPN - 12/09/2023 3:02 PM EDT Spoke with pharmacist and clarified instructions. * Telephone Encounter - Josette Beth MD - 12/09/2023 2:33 PM EDT As we discussed * Telephone Encounter - Rika Jara LPN - 12/09/2023 12:53 PM EDT Received communication from pharmacy stating the below; please clarify. [facility] would like a call with clarification on Lamotrigine 25 mg. "7 days = 14 tabs and 2 BID x7 days =28. 28+14=42 tablets in 14 days. High start dose and we only have enough tablets for about 2 days" documented in this encounter Plan of Treatment Upcoming Encounters Date Type Department Care Team (Late st Contact Info) Description 12/14/2023 3:45 PM EDT Office Visit Gynecology/Obstetrics [facility] [address] [place] [address] Aidne Appiah MD [address] [place] [address] 01/06/2024 11:45 AM EDT Office Visit Gynecology/Obstetrics [facility] [address] [place] [address] Aiden Appiah MD [address] [place] [address] 03/09/2024 9:20 AM EDT Office Visit Neurology [facility] [address] [place] [address] Josette Beth MD 200 [facility] [place] [address] Scheduled Procedures Name Priority Associated Diagnoses Date/Ti [...] 12/04/2023, 1 09/13/2022, 04/29/2023, Additional history exists COLONOSCOPY-EVERY 5 YRS AGES 18-100 09/08/2027 09/08/2022, 09/08/2022 Cervical Cancer Screening 04/29/2028 HPV/Co-Test 04/29/2028 04/29/2023 DTaP,Tdap,and Td Vaccines (2 - Td or Tdap) 02/25/2029 02/25/2019 GARDASIL-HPV IMMUNIZATION SERIES Aged Out No longer eligible based on patient's age to complete this topic MENINGOCOCCAL (MENACTRA/MENVEO) Aged Out No longer eligible based on patient's age to complete this topic documented as of this encounter Medical Devices Not on filedocumented as of this encounter Visit Diagnoses Diagnosis Partial symptomatic epilepsy with complex partial seizures, not intractable, without status epilepticus (HCC)- Primary documented in this encounter Advance Directives Latest [...] Advance Directives occurred with: Patient Care Teams Centrifugal Chiller Technician Relationship Specialty Start Date End Date Angelic Pereira DO [address], [place] [phone] PCP - General Family Medicine 01/20/18 documented as of this encounter
--- OUTSIDE RECORDS SUMMARY | 2023-12-25 19:00 | External Medical Summary | Summary of Care ---
Author Name Unknown Organization [facility] Address [address] [facility] [address] Phone [phone] Care Team Providers Care Gastroenterology Teacher Name Role Phone Angelic Pereira DO Primary Care Provider [phone] Reason for Visit * Reason Onset Date Comments Med Request 12/09/2023 Encounter Details Date Type Department Care Team (Late st Contact Info) Description 12/09/2023 Telephone Neurology [facility] [place] [address] [place] [address] Josette Beth MD [address] [place] [address] Med Request Allergies Active Allergy Reactions Criticality [...] encounter Miscellaneous Notes * Telephone Encounter - Josette Beth MD - 12/09/2023 2:33 PM EDT As we discussed * Telephone Encounter - Rika Jara LPN - 12/09/2023 12:53 PM EDT Received communication from pharmacy stating the below; please clarify. [facility] would like a call with clarification on [...] 12/14/2023 3:45 PM EDT Office Visit Gynecology/Obstetrics [facility] [address] [place] [address] Aiden Appiah MD [address] [place] [address] 01/06/2024 11:45 AM EDT Office Visit Gynecology/Obstetrics [facility] [address] [place] [address] Aiden Appiah MD [address] [place] [address] 03/09/2024 9:20 AM EDT Office Visit Neurology [facility] [place] [address] [facility] [place] [address] Josette Beth MD [address] [facility] [place] [address] Scheduled Procedures Name Priority Associated Diagnoses Date/Ti [...] Advance Directives occurred with: Patient Care Teams Gastroenterology Teacher Relationship Specialty Start Date End Date Angelic Pereira DO [address] [place] [address] PCP - General Family Medicine 01/20/18 documented as of this encounter
--- OUTSIDE RECORDS SUMMARY | 2023-12-25 19:00 | External Medical Summary | Summary of Care ---
Author Name Unknown Organization [facility] Address [address] [place] [facility] [place] [address] Phone [phone] Care Team Providers Care Cone Chocolate Dipper Name Role Phone Angelic Pereira DO Primary Care Provider [phone] Reason for Visit * Reason Comments Follow Up Encounter Details Date Type Department Care Team (Late st Contact Info) Description 12/09/2023 10:00 AM EDT Office Visit [facility] [address] [facility] [place] [address] Josette Beth MD 200 [facility] [place] [address] Transient alteration of awareness*; Partial symptomatic epilepsy with complex partial seizures, not intractable, without status epilepticus (HCC) Allergies Active Allergy Reactions Criticality Noted Date [...] stop the medication and call your doctor. 56 Tablet 0 12/09/2023 Active Azithromycin 250 MG Oral Tablet (Zithromax)Indica tions:Bloody sputum Take 2 tabs by mouth on the first day, then 1 tab daily on days two through five 6 Tablet 0 11/17/2023 4 Discontinue d(Medicatio n List Clean Up) predniSONE 20 MG Oral Tablet (Deltasone)Indica tions:Bloody sputum 1 tab 3 times a day for 3 days, then 1 tab 2 times a day for 3 days, then 1 tab daily for 3 days 18 Tablet 0 11/17/2023 4 Discontinue d(Medicatio n List Clean Up) documented [...] 07/15/2012 Bipolar 1 disorder Overview: Dr Neal, [facility] Tobacco abuse documented as of this encounter [...] Sign Reading Time Taken Comments Blood Pressure 144/100 12/09/2023 9:46 AM EDT Pulse 86 12/09/2023 9:46 AM EDT Temperature 36.9 C (98.5 F) 12/09/2023 9:46 AM ED T Respiratory Rate 18 12/09/2023 9:46 AM EDT Oxygen Saturation 96% 12/09/2023 9:46 AM EDT Inhaled Oxygen Concentration - - Weight 87 kg (191 lb 12.8 oz) 12/09/2023 9:46 AM EDT Height - - Body Mass Index 31.92 11/24/2023 1:51 PM EDT documented in this encounter Progress Notes * Josette Beth MD - 12/09/2023 10:07 AM EDT Progress [place] [address] NAME: Brigette Patel Date of : 1985 Date of Visit: 12/09/23 Chief Complaint: Chief Complaint Patient presents with Follow Up Subjective: f/u epilepsy Neuro ROS: neg for stroke sx; no spells HOME MEDICATIONS : Current Outpatient Medications Medication Sig Dispense Refill Blood Pressure Monitoring (ADULT BLOOD PRESSURE CUFF LG) KIT Use daily for blood pressure checks 1 Kit 0 ibuprofen (MOTRIN) 800 MG Tablet Take 1 Tab by mouth 3 times a day. with food for pain 30 Tab 1 Proventil HFA 108 (90 Base) MCG/ACT Inhalation Aerosol Solution Inhale by mouth 2 Puffs every 4 hours as needed for Congestion or Wheezing. 18 g 0 Folic Acid 400 MCG Oral Tablet DAILY IN THE MORNING Dicyclomine HCl 10 MG Oral Capsule (Bentyl) Take 1 Capsule by mouth 4 times a day before meals and at bedtime. Multivitamin Adult Oral Tablet Take 1 Tablet by mouth in the morning. Thiamine HCl 100 MG Oral Tablet (vitamin B-1) Take 1 Tablet by mouth in the morning. EpiPen 2-Dorian 0.3 MG/0.3ML Injection Solution Auto-injector For a severe reaction: Place orange end against the outer thigh, press firmly, hold in place for 10 seconds and go to the Emergency room. 2 Each 2 diazePAM 5 MG Oral Tablet (Valium) Take 1 tab 30 minutes prior to MRI, 1 tab at facility if needed then additional tab if needed 3 Tablet 0 Cephalexin 500 MG Oral Capsule Take 1 Capsule by mouth in the morning and 1 Capsule at noon and 1 Capsule before bedtime. Do all this for 10 days. 30 Capsule 0 metroNIDAZOLE 500 MG Oral Tablet (Flagyl) Take 1 Tablet by mouth in the morning and 1 Tablet beforebedtime. Do all this for 10 days. 20 Tablet 0 traMADol HCl 50 MG Oral Tablet (Ultram) Take 1 Tablet by mouth every 6 hours as needed for Pain, Severe. 12 Tablet 0 Cariprazine HCl 1.5 MG Oral Capsule (Vraylar) Take 1 Capsule by mouth in the morning. Prazosin HCl 1 MG Oral Capsule (Minipress) Take 1 Capsule by mouth at bedtime. No current facility-administered medications for this visit. Review of patient's allergies indicates: Allergen Reactions Justicia Adhatoda ([place] Nut Tree) [Justicia Adhatoda] Other reaction(s): Anaphylaxis Morphine Hives Other reaction(s): Hives Mushroom Extract Complex Hives mushrooms Other reaction(s): Hives Penicillins Unknown Told as a child Other reaction(s): Difficulty Breathing Peanut Butter Flavor Hives Peanuts, nuts PHYSICAL EXAMINATION: Vital Signs: BP 144/100 (BP Site: Right Arm, BP Position: Sitting, BP Cuff Size: Regular) | Pulse 86 | Temp 36.9C (98.5 F) (Tympanic) | Resp 18 | Wt 87 kg (191 lb 12.8 oz) | SpO2 96% | BMI 31.92 kg/m | BSA2 m EXAM: Constitutional: appearance normally developed, well nourished. Head and Face: normocephalic and atraumatic Cardiovascular: heart sounds are normal. Rhythm is sinus NEUROLOGIC EXAM Higher integrative is obviously intact. Cranial Nerves: CN 2 - no visual defect on confrontation and pupils round, equal, reactive to light CN 3, 4, 6 - extra-ocular movements intact and no nystagmus CN 7 - no facial asymmetry CN 9, 10 - palate symmetric CN 12 - tongue midline Motor: Normal, without pronator drift Coordination: Normal finger to nose and rapid alternating movement of lower extremities IMPRESSION / PLAN: Epilepsy stable; add lamotrigine-taken before documented in this encounter Nursing Notes * Rika Jara LPN - 12/09/2023 9:45 AM EDT Patient verified identity by spelling of last name and date. Chief Complaint Patient presents with Follow Up documented in this encounter Plan of Treatment Upcoming Encounters Date Type Department Care Team (Late st Contact Info) Description 12/14/2023 3:45 PM EDT Office Visit Gynecology/Obstetrics [facility] [address] [place] [address] Aiden Appiah MD [address] [place] [address] 01/06/2024 11:45 AM EDT Office Visit Gynecology/Obstetrics [place] [facility] [address] [place] [address] Aiden Appiah MD [address] [place] [address] 03/09/2024 9:20 AM EDT Office Visit Neurology [facility] [address] [facility] [place], [place] [id number] Josette Beth MD [address] [facility] [place] [address] Scheduled Procedures Name Priority Associated Diagnoses Date/Ti [...] as of this encounter Visit Diagnoses Diagnosis Transient alteration of awareness- Primary Partial symptomatic epilepsy with complex partial seizures, not intractable, without status epilepticus (HCC) documented in this encounter Advance Directives Latest [...] Advance Directives occurred with: Patient Care Teams Cone Chocolate Dipper Relationship Specialty Start Date End Date Angelic Pereira DO [address] [facility] [place] [address] PCP - General Family Medicine 01/20/18 documented as of this encounter"
--- OUTSIDE RECORDS SUMMARY | 2023-12-25 19:00 | External Medical Summary | Summary of Care ---
Author Name Unknown Organization [facility] Address [address] [place] [address] Phone [phone] Care Team Providers Care Fly Rail Operator Name Role Phone Angelic Pereira DO Primary Care Provider [phone] Reason for Visit * Reason Onset Date Comments Medication Question 12/09/2023 Encounter Details Date Type Department Care Team (Late st Contact Info) Description 12/09/2023 Telephone Neurology [facility] [address] [place] [address] Services, Scheduling [address] [place] [address] Medication Question Allergies Active Allergy Reactions Criticality [...] Pressure Monitoring (ADULT BLOOD PRESSURE CUFF LG) KITIndications:HTN , goal below 130/80 Use daily for blood pressure checks 1 Kit 0 01/20/2018 Active ibuprofen (MOTRIN) 800 MG TabletIndications: Tooth pain Take 1 Tab by mouth 3 times a day. with food for pain 30 Tab 1 01/07/2020 Active Proventil HFA 108 (90 Base) MCG/ACT Inhalation Aerosol SolutionIndication s:Acute cough,Acute bronchitis, antibiotics not indicated Inhale by [...] for 10 days. 30 Capsule 0 12/04/2023 12/14/2023 Active metroNIDAZOLE 500 MG Oral Tablet (Flagyl) Take 1 Tablet by mouth in the morning and 1 Tablet before bedtime. Do all this for 10 days. 20 Tablet 0 12/04/2023 12/14/2023 Active traMADol HCl 50 MG Oral [...] your doctor. 56 Tablet 0 12/09/2023 Active documented as of this encounter (statuses [...] urgency 07/15/2012 [facility] Tobacco abuse documented as of this [...] mRNA, LNP-s, No Pre serve, 2-Dose Series ([employer]) 08/07/2021 TDAP (age 10 and older)(Boostrix) 02/25/2019 [...] Telephone Encounter - Lynne Ospina LPN - 12/09/2023 12:47 PM EDT Called and talked to pharmacy and pended correct amount of tablets. * Telephone Encounter - Sharita Schulz, SHAE - 12/09/2023 11:56 AM EDT Requested Information from caller: Who is calling facility name: [facility] Pharmacy Provider patient is established with: Dr. Beth What is the concern or issue they are having: Pharmacy calling to clarify medication directions. Asking if the pt is supposed to take one pill then increase as she takes it, hence the 56 pills. Very confused on the instructions and would like a call back for clarification For reference lamoTRIgine 25 MG Oral Tablet (LaMICtal) 56 Tablet 0 12/09/2023 -- Sig: Lamotrigine (Lamictal) 25 mg tablets. Take this [...] stop the medication and call your doctor. How long has the issue been going on: 12/09/23 Any additional details to add: no Pts phone number for nurse to call back: [phone] If forms need to be faxed- Please provide fax number: n/a documented in this encounter Plan of Treatment Upcoming Encounters Date Type Department Care Team (Late st Contact Info) Description 12/14/2023 3:45 PM EDT Office Visit Gynecology/Obstetrics [facility] [address] [place] [address] Aiden Appiah MD [address] [place] [address] 01/06/2024 11:45 AM EDT Office Visit Gynecology/Obstetrics [facility] [address] [place] [address] Aiden Appiah MD [address] [place] [address] 03/09/2024 9:20 AM EDT Office Visit Neurology [facility] [address] [facility] [place] [address] Josette Beth MD 200 [place] [address] Scheduled Procedures Name Priority Associated Diagnoses Date/Ti [...] Advance Directives occurred with: Patient Care Teams Fly Rail Operator Relationship Specialty Start Date End Date Angelic Pereira DO [address] [place] [address] PCP - General Family Medicine 01/20/18 documented as of this encounter
--- OUTSIDE RECORDS SUMMARY | 2023-12-25 19:00 | External Medical Summary | Summary of Care ---
Author Name Unknown Organization [facility] Address [address] [facility] [address] Phone [phone] Care Team Providers Care Aerial Crop Duster Name Role Phone Angelic Pereira DO Primary Care Provider [phone] Reason for Visit * Reason Onset Date Comments Medication Refill 12/09/2023 Encounter Details Date Type Department Care Team (Late st Contact Info) Description 12/09/2023 Refill Neurology [facility] [address] [place] [address] Farheen Gaxiola MD [address] [place] [address] Allergies Active Allergy Reactions Criticality Noted Date [...] call your doctor. 56 Tablet 0 12/09/2023 4 Discontinue d(Refill) lamoTRIgine 25 MG Oral Tablet (LaMICtal) Lamotrigine [...] encounter Miscellaneous Notes * Telephone Encounter - Farheen Gaxiola MD - 12/09/2023 2:25 PM EDT Signed Prescriptions: Disp Refills lamoTRIgine 25 MG Oral Tablet (LaMICtal) 140 Ta*0 Sig: Lamotrigine (Lamictal) 25 mg tablets. Take this medicatio as instructed below: 1 tab by mouth twice a day for 1 week Then 2 tabs by mouth twice a day for 1 week Then 3 tabs by mouth twice a day for 1 week Then 4 tabs by mouth twice a day and contin ue Please pay special attention for any rash, which can be a sign of a potentially serious side effect. If this occurs please stop the medication and call your doctor. Authorizing Provider: FARHEEN GAXIOLA lamoTRIgine 100 MG Oral Tablet (LaMICtal) 60 Tab*3 Sig: Take 1 Tablet by mouth in the morning and 1 Tablet before bedtime. Authorizing Provider: RAOUL GAXIOLA * Telephone Encounter - Lynne Ospina LPN - 12/09/2023 12:42 PM EDT Talked to pharmacy. Only 56 tablets were prescribed. Patient will need 140 of the 25mg tablets for the first month. Pended first month of the 25mg tablets and the 100mg prescription for thereafter ifthere are no issues. documented in this encounter Plan of Treatment Upcoming Encounters Date Type Department Care Team (Late st Contact Info) Description 12/14/2023 3:45 PM EDT Office Visit Gynecology/Obstetrics [facility] [address] [place] [address] Aiden Appiah MD [address] [place] [address] 01/06/2024 11:45 AM EDT [facility] [address] [place] [address] Aiden Appiah MD [address] [place] [address] 03/09/2024 9:20 AM EDT Office Visit Neurology [facility] [place] [address] [place] [address] Farheen Gaxiola MD [address] [facility] [place] [address] Scheduled Procedures Name Priority Associated Diagnoses Date/Ti [...] Advance Directives occurred with: Patient Care Teams Aerial Crop Duster Relationship Specialty Start Date End Date Angelic Pereira DO [address] [place] [address] PCP - General Family Medicine 01/20/18 documented as of this encounter
--- OUTSIDE RECORDS SUMMARY | 2023-12-25 19:00 | External Medical Summary | Summary of Care ---
Author Name Unknown Organization [facility] Address [address] [facility] [address] Phone [phone] Care Team Providers Care Home School Coordinator Name Role Phone Angelic Pereira DO Primary Care Provider [phone] Reason for Visit * Reason Onset Date Comments Amb. EEG 12/08/2023 Encounter Details Date Type Department Care Team (Late st Contact Info) Description 12/08/2023 Telephone Neurology [facility] [address] [place] [id number] Josette Beth MD [address] [place] [id number] Amb. EEG Allergies Active Allergy Reactions Criticality [...] Emergency room. 2 Each 2 04/28/2023 Active Additional Information Patient not taking.Reported on 05/04/2023 diazePAM 5 MG Oral Tablet (Valium) Take [...] Pain, Severe. 12 Tablet 0 12/04/2023 Active Azithromycin 250 MG Oral Tablet (Zithromax)Indica [...] for 3 days 18 Tablet 0 11/17/2023 Discontinue d(Medicatio n List Clean Up) documented [...] 07/15/2012 Bipolar 1 disorder Overview: Dr Neal, [facility] Tobacco abuse documented [...] 3:45 PM EDT Office Visit Gynecology/Obstetrics [facility] [address] [address] Aiden Appiah MD [address] [place] [address] 01/06/2024 11:45 AM EDT Office Visit Gynecology/Obstetrics [facility] [address] [place] [address] Aiden Appiah MD [address] [place] [address] 03/09/2024 9:20 AM EDT Office Visit Neurology [facility] [place] [address] [facility] [place] [address] Josette Beth MD 200 [facility] [place] [address] Scheduled Procedures Name Priority Associated Diagnoses Date/Ti [...] Advance Directives occurred with: Patient Care Teams Home School Coordinator Relationship Specialty Start Date End Date Angelic Pereira DO [address] [place] [address] PCP - General Family Medicine 01/20/18 documented as of this encounter
--- OUTSIDE RECORDS SUMMARY | 2023-12-25 19:01 | External Medical Summary | Summary of Care ---
Author Name Unknown Organization [facility] Address [address] [facility] [place] [address] Phone [phone] Care Team Providers Care Learning Designer Name Role Phone Angelic Pereira DO Primary Care Provider [phone] Reason for Visit * Reason Comments EEG Encounter Details Date Type Department Care Team (Late st Contact Info) Description 11/17/2023 12:30 PM EDT NeuroDiagnostic Study Neurophysiology [facility] 200 [place] [address] Sp, Neurophys Tech [facility] [address] Allergies Active Allergy Reactions Criticality Noted Date Comments Justicia Adhatoda High 01/02/2023 Other reaction(s): Anaphylaxis Morphine Hives High 12/30/2012 Other reaction(s): Hives Mushroom Extract Complex Hives High 05/21/2015 mushrooms Other reaction(s): Hives Peanut Butter Flavor Hives 05/21/2015 Peanuts, nuts Penicillins Unknown High 12/30/2012 Told as a child Other reaction(s): Difficulty Breathing documented as of this encounter (statuses as of 12/04/2023) Medications Medication Sig Dispensed Refills Start Date [...] if needed 3 Tablet 0 09/15/2023 Active predniSONE 20 MG Oral Tablet (Deltasone)Indicati ons:Bloody sputum 1 tab 3 times a day for 3 days, then 1 tab 2 times a day for 3 days, then 1 tab daily for 3 days 18 Tablet 0 11/17/2023 Active documented as of this encounter (statuses as of 12/04/2023) Active Problems Problem Noted Date Diagnosed Date Alcoholic hepatitis without ascites 09/11/2022 Fatty liver 09/11/2022 Heart failure 09/11/2022 Major depressive disorder with single episode Alcohol abuse with intoxication, unspecified Family circumstance 09/11/2022 Chronic hypokalemia 03/29/2021 Infection of tooth 03/29/2021 Generalized anxiety disorder 09/09/2019 Post-traumatic stress disorder, unspecified 08/18 Opioid dependence in remission 04/17/2017 Hypertension 08/17/2016 Hypertensive urgency 07/15/2012 Bipolar 1 disorder Overview: Dr Neal, [facility] Tobacco abuse documented as of this encounter (statuses as of 12/04/2023) Resolved Problems Problem Noted Date Diagnosed Date [...] as of this encounter (statuses as of 12/04/2023) Immunizations Name Administration Dates Next Due COVID-19 [...] on file documented as of this encounter Plan of Treatment Upcoming Encounters Date Type Department Care Team (Late st Contact Info) Description 12/14/2023 3:45 PM EDT Office Visit Gynecology/Obstetrics [place] [facility] [address] [place] [address] Aiden Appiah MD [address] [place] [address] 01/06/2024 11:45 AM EDT [facility] [address] [place] [address] Aiden Appiah MD [address] [place] [address] Scheduled Orders Name Type Priority Associated Diagnoses Orde r Schedule EEG AMBULATORY Procedures Routine Transient alteration of awareness Ordered: 08/26/2023 Scheduled Procedures Name Priority Associated Diagnoses Date/Ti [...] encounter Visit Diagnoses Diagnosis Transient alteration of awareness [R40.4]- Primary Transient alteration of awareness documented in this encounter Advance Directives Latest [...] Advance Directives occurred with: Patient Care Teams Learning Designer Relationship Specialty Start Date End Date Angelic Pereira DO [address] [place] [address] PCP - General Family Medicine 01/20/18 documented as of this encounter
--- OUTSIDE RECORDS SUMMARY | 2023-12-25 19:01 | External Medical Summary | Summary of Care ---
Author Name Unknown Organization [facility] Address [address] [facility] [address] Phone [phone] Care Team Providers Care Mixing Pan Tender Name Role Phone Angelic Pereira DO Primary Care Provider [phone] Reason for Visit * Reason Onset Date Comments EEG 12/07/2023 Encounter Details Date Type Department Care Team (Late st Contact Info) Description 12/07/2023 Telephone Neurology [facility] [place] [address] [place] [address] Josette Beth MD [address] [place] [address] EEG Allergies Active Allergy Reactions Criticality Noted Date Comments Justicia Adhatoda High 01/02/2023 Other reaction(s): Anaphylaxis Morphine Hives High 12/30/2012 Other reaction(s): Hives Mushroom Extract Complex Hives High 05/21/2015 mushrooms Other reaction(s): Hives Peanut Butter Flavor Hives 05/21/2015 Peanuts, nuts Penicillins Unknown High 12/30/2012 Told as a child Other reaction(s): Difficulty Breathing documented as of this encounter (statuses as of 12/07/2023) Medications Medication Sig Dispensed Refills Start Date [...] 09/15/2023 Active predniSONE 20 MG Oral Tablet (Deltasone)Indicat ions:Bloody sputum 1 tab 3 times a day for 3 days, then 1 tab 2 times a day for 3 days, then 1 tab daily for 3 days 18 Tablet 0 11/17/2023 Active Cephalexin 500 MG Oral Capsule Take [...] Pain, Severe. 12 Tablet 0 12/04/2023 Active documented as of this encounter (statuses as of 12/07/2023) Active Problems Problem Noted Date Diagnosed Date [...] 07/15/2012 Bipolar 1 disorder Overview: Dr Neal, [facility] Tobacco abuse documented as of this encounter (statuses as of 12/07/2023) Resolved Problems Problem Noted Date Diagnosed Date [...] as of this encounter (statuses as of 12/07/2023) Immunizations Name Administration Dates Next Due COVID-19 [...] Telephone Encounter - Josette Beth MD - 12/07/2023 10:39 AM EDT EEG nl; I am ordering extended eeg documented in this encounter Plan of Treatment Upcoming Encounters Date Type Department Care Team (Late st Contact Info) Description 12/14/2023 3:45 PM EDT Office Visit Gynecology/Obstetrics [facility] [address] [place] [address] Aiden Appiah MD [address] [place] [address] 01/06/2024 11:45 AM EDT Office Visit Gynecology/Obstetrics [facility] [address] [place] [address] Aiden Appiah MD [address] [place] [address] Scheduled Orders Name Type Priority Associated Diagnoses Orde r Schedule EEG AMBULATORY Procedures Routine Transient alteration of awareness Ordered: 12/07/2023 Scheduled Procedures Name Priority Associated Diagnoses Date/Ti [...] Diagnoses Diagnosis Transient alteration of awareness- Primary documented in this encounter Advance Directives [...] Advance Directives occurred with: Patient Care Teams Mixing Pan Tender Relationship Specialty Start Date End Date Angelic Pereira DO [address] [place] [address] PCP - General Family Medicine 01/20/18 documented as of this encounter
--- OUTSIDE RECORDS SUMMARY | 2023-12-25 19:01 | External Medical Summary ---
Author Name Unknown Address Unknown Organization [facility] [address] [place] [address] Laboratory Report Ordering Provider Test Date Status ANDRAESANTIAGO 12/04/2023 01:23:57 Final Observation Date Value Abnormality Reference (Units ) Status BUN 12/04/2023 01:23:57 4 Below low normal 6-20 (mg/dL) Final Creatinine 12/04/2023 01:23:57 0.7 0.5-1.0 (mg/dL) Final Glomerular filtration rate/1.73 sq M.predicted [Volume Rate/Area] in Serum, Plasma or Blood by Creatinine-based formula (CKD-EPI) 12/04/2023 01:23:57 >90 >=60 (mL/min) Final eGFR is calculated based on the CKD-EPI 2020 equation Sodium 12/04/2023 01:23:57 142 135-146 (m mol/L) Final Potassium 12/04/2023 01:23:57 3.9 3.5-5.1 (m mol/L) Final Cl 12/04/2023 01:23:57 105 98-107 (mm ol/L) Final CO2 12/04/2023 01:23:57 19 Below low normal 22- 32 (mmol/L) Final Anion gap 12/04/2023 01:23:57 18 Above high normal 7- 15 (mmol/L) Final Glucose 12/04/2023 01:23:57 117 70-120 (mg /dL) Final Albumin 12/04/2023 01:23:57 4.6 3.8-5.0 (g /dL) Final AST (Aspartate aminotransferase) 12/04/2023 01:23:57 31 10-35 (U/L) Fin al Alk Phos 12/04/2023 01:23:57 366 Above high normal 35 -130 (U/L) Final Bilirubin, Total 12/04/2023 01:23:57 0.4 <=1 .2 (mg/dL) Final Calcium 12/04/2023 01:23:57 10.2 8.4-10.2 ( mg/dL) Final Protein 12/04/2023 01:23:57 8.6 Above high normal 6. 0-8.3 (g/dL) Final ALT (Alanine aminotransferase) 12/04/2023 01:23:57 22 10-35 (U/L) Ambrosio segura Performing Location [facility] - [facility] [address] [place] [address]
--- OUTSIDE RECORDS SUMMARY | 2023-12-25 19:01 | External Medical Summary | Summary of Care ---
Author Name Unknown Organization [facility] [address] [address] Phone [phone] Care Team Providers Care Middle School Math Teacher Name Role Phone Angelic Pereira DO Primary Care Provider [phone] Reason for Visit * Reason Onset Date Comments Amb. EEG 12/08/2023 Encounter Details Date Type Department Care Team (Late st Contact Info) Description 12/08/[address] [facility] [address] [place] [id number] Josette Beth MD [address] [place] [id number] Amb. EEG Allergies Active Allergy Reactions Criticality Noted Date Comments Justicia Adhatoda High 01/02/2023 Other reaction(s): Anaphylaxis Morphine Hives High 12/30/2012 Other reaction(s): Hives Mushroom Extract Complex Hives High 05/21/2015 mushrooms Other reaction(s): Hives Peanut Butter Flavor Hives 05/21/2015 Peanuts, nuts Penicillins Unknown High 12/30/2012 Told as a child Other reaction(s): Difficulty Breathing documented as of this encounter (statuses as of 12/08/2023) Medications Medication Sig Dispensed Refills Start Date [...] as of this encounter (statuses as of 12/08/2023) Active Problems Problem Noted Date Diagnosed Date [...] 07/15/2012 Bipolar 1 disorder Overview: Dr Neal, [facility] Tobacco abuse documented as of this encounter (statuses as of 12/08/2023) Resolved Problems Problem Noted Date Diagnosed Date [...] as of this encounter (statuses as of 12/08/2023) Immunizations Name Administration Dates Next Due COVID-19 mRNA, LNP-s, No Pre serve, 2-Dose Series ([employer]) 08/07/2021 TDAP (age 10 and older)(Boostrix) 02/25/2019 [...] 12/09/2023 10:00 AM EDT Office Visit Neurology [facility] [place] [address] [facility] [place] [address] Josette Beth MD [address] [facility] [place] [address] 12/14/2023 3:45 PM EDT Office Visit Gynecology/Obstetrics [facility] [address] [place] [address] Aiden Appiah MD [address] [place] [address] 01/06/2024 11:45 AM EDT Office Visit Gynecology/Obstetrics [facility] [address] [place] [address] Aiden Appiah MD [address] [place] [address] Scheduled Procedures Name Priority Associated Diagnoses Date/Ti [...] Advance Directives occurred with: Patient Care Teams Middle School Math Teacher Relationship Specialty Start Date End Date Angelic Pereira DO [address] [place] [address] PCP - General Family Medicine 01/20/18 documented as of this encounter
--- OUTSIDE RECORDS SUMMARY | 2023-12-25 19:01 | External Medical Summary ---
Author Name Unknown Address Unknown Organization K1F:LABORATORY [facility] - [address] [place] [address] Laboratory Report Ordering Provider Test Date Status SANTIAGO ABEBE 12/04/2023 01:23:57 Final Observation Date Value Abnormality Reference (Units ) Status Lipase 12/04/2023 01:23:57 43 13-60 (U/L ) Final Performing Location LABORATORY [facility] - [address] [place] [address]
--- OUTSIDE RECORDS SUMMARY | 2023-12-25 19:01 | External Medical Summary ---
Author Name Unknown Address Unknown Organization K1F:LABORATORY [facility] - [address] [place] [address] Laboratory Report Ordering Provider Test Date Status SANTIAGO ABEBE 12/04/2023 01:23:57 Final Observation Date Value Abnormality Reference (Units ) Status Salicylates 12/04/2023 01:23:57 <0.3 Below low normal 5 .0-30.0 (mg/dL) Final Performing Location LABORATORY [facility] - [address] [place] [address]
--- OUTSIDE RECORDS SUMMARY | 2023-12-25 19:01 | External Medical Summary | Summary of Care ---
Author Name Unknown Organization [facility] Address [address] [place] [place] [address] Phone [phone] Care Team Providers Care Obedience Trainer Name Role Phone Angelic Pereira DO Primary Care Provider [phone] Reason for Visit * Reason Onset Date Comments EEG 12/07/2023 Encounter Details Date Type Department Care Team (Late st Contact Info) Description 12/07/2023 Telephone Neurology [facility] [place] [address] [place] [address] Josette Beth MD [address] [place] [address] EEG Allergies Active Allergy Reactions Criticality Noted [...] 12/14/2023 3:45 PM EDT Office Visit Gynecology/Obstetrics [facility] [address] [place] [address] Aiden Appiah MD [address] [place] [address] 01/06/2024 11:45 AM EDT Office Visit Gynecology/Obstetrics [facility] [address] [place] [address] Aiden Appiah MD [address] [place] [address] Scheduled Orders Name Type Priority Associated Diagnoses [...] Advance Directives occurred with: Patient Care Teams Obedience Trainer Relationship Specialty Start Date End Date Angelic Pereira DO [address] [place] [address] PCP - General Family Medicine 01/20/18 documented as of this encounter
--- OUTSIDE RECORDS SUMMARY | 2023-12-25 19:01 | External Medical Summary ---
Author Name Unknown Address Unknown Organization K01:LABORATORY [facility] - [address] [facility] [address] Laboratory Report Ordering Provider Test Date Status ANDRAESANTIAGO 12/04/2023 08:53:46 Final Observation Date Value Abnormality Reference (Units ) Status Bacterial vaginosis [Interpretation] in Vaginal fluid Qualitative 12/04/2023 08:53:46 Negative Negative Final Negative for Bacterial Vagin osis. Correlate results with other clinical findings. Liv sp DNA [Presence] in Vaginal fluid by Probe 12/04/2023 08:53:46 Negative Negative Final No Liv species group RNA detected. Correlate results with other clinical findings. Liv glabrata RNA [Presen ce] in Vaginal fluid by TRAGN with probe detection 12/04/2023 08:53:46 Negative Negative Final No Liv glabrata RNA dete cted. Correlate results with other clinical findings. Trichomonas vaginalis DNA [P resence] in Vaginal fluid by Probe 12/04/2023 08:53:46 Negative Negative Final No Trichomonas vaginalis RNA detected. Performing Location LABORATORY [facility] - [address] [facility] [address]
--- OUTSIDE RECORDS SUMMARY | 2023-12-25 19:01 | External Medical Summary ---
Author Name Unknown Address Unknown Organization K1F:LABORATORY [facility] - [address] [place] [address] Laboratory Report Ordering Provider Test Date Status SANTIAGO ABEBE 12/04/2023 01:23:57 Final hCG can serve as a screening assay for . However, early may not give a positive hCG test result. In addition, some non- women may have a hCG result slightly higher than the reference limit. Careful interpretation of the hCG with clinical history is required to determine whether the patient may be . Observation Date Value Abnormality Reference (Units ) Status Choriogonadotropin.intact +Beta subunit [Units/volume] in Serum or Plasma 12/04/2023 01:23:57 <0.1 <=1.0 (mIU/mL) Final Performing Location LABORATORY [facility] - [address] [place] [address]
--- OUTSIDE RECORDS SUMMARY | 2023-12-25 19:01 | External Medical Summary ---
Author Name Unknown Address Unknown Organization K1F:LABORATORY [facility] - [address] [address] Laboratory Report Ordering Provider Test Date Status SANTIAGO ABEBE 12/04/2023 01:23:57 Final Observation Date Value Abnormality Reference (Units ) Status Acetaminophen 12/04/2023 01:23:57 <5.0 Below low normal 10.0-30.0 (ug/mL) Final Performing Location LABORATORY [facility] - [address] [place] [address]
--- OUTSIDE RECORDS SUMMARY | 2023-12-25 19:01 | External Medical Summary ---
Author Name Unknown Address Unknown Organization K1F:LABORATORY [facility] - [address] [address] Laboratory Report Ordering Provider Test Date Status SANTIAGO ABEBE 12/04/2023 01:23:57 Final Observation Date Value Abnormality Reference (Units ) Status Ethanol 12/04/2023 01:23:57 168.0 Above high normal Ne gative (mg/dL) Final Performing Location LABORATORY [facility] - [address] [place] [address]
--- OUTSIDE RECORDS SUMMARY | 2023-12-25 19:01 | External Medical Summary | Summary of Care ---
Author Name Unknown Organization [facility] Address [address] [place] [facility] [place] [address] Phone [phone] Care Team Providers Care Cold Strip Roller Name Role Phone Angelic Pereira DO Primary Care Provider [phone] Reason for Visit * Reason Onset Date Comments EEG 12/07/2023 Encounter Details Date Type Department Care Team (Late st Contact Info) Description 12/07/2023 Telephone Neurology [facility] [place] [address] [place] [address] Josette Beth MD [address] [place] [address] EEG Allergies Active Allergy Reactions Criticality Noted [...] 12/14/2023 3:45 PM EDT Office Visit Gynecology/Obstetrics [facility] [address] [place] [address] Aiden Appiah MD [address] [place] [address] 01/06/2024 11:45 AM EDT Office Visit Gynecology/Obstetrics [facility] [address] [place] [address] Aiden Appiah MD [address] [place] [address] Scheduled Orders Name Type Priority Associated Diagnoses [...] Advance Directives occurred with: Patient Care Teams Cold Strip Roller Relationship Specialty Start Date End Date Angelic Pereira DO [address] [place] [address] PCP - General Family Medicine 01/20/18 documented as of this encounter
--- OUTSIDE RECORDS SUMMARY | 2023-12-25 19:01 | External Medical Summary | Summary of Care ---
Author Name Unknown Organization [facility] Address [address] [facility] [place] [address] Phone [phone] Care Team Providers Care Program Assistant Name Role Phone Angelic Pereira DO Primary Care Provider [phone] Reason for Visit * Reason Comments EEG Encounter Details Date Type Department Care Team (Late st Contact Info) Description 11/20/2023 9:00 AM EDT NeuroDiagnostic Study Neurophysiology [facility] [address] [place] [address] Sp, Neurophys Tech [address] [facility] [address] Allergies Active Allergy Reactions Criticality Noted Date [...] 12/14/2023 3:45 PM EDT Office Visit Gynecology/Obstetrics [facility] [address] [place] [address] Aiden Appiah MD [address] [place] [address] 01/06/2024 11:45 AM EDT Office Visit Gynecology/Obstetrics [facility] [address] [place] [address] Aiden Appiah MD [address] [place] [address] Scheduled Procedures Name Priority Associated Diagnoses Date/Ti [...] Advance Directives occurred with: Patient Care Teams Program Assistant Relationship Specialty Start Date End Date Angelic Pereira DO [address] [place] [address] PCP - General Family Medicine 01/20/18 documented as of this encounter
--- OUTSIDE RECORDS SUMMARY | 2023-12-25 19:01 | External Medical Summary | Summary of Care ---
Author Name Unknown Organization [facility] Address [address] [place] [address] Phone [phone] Care Team Providers Care Php Website Developer Name Role Phone Angelic Pereira DO Primary Care Provider [phone] Encounter Details Date Type Department Care Team (Late st Contact Info) Description 12/04/2023 Population Health External Data Unspecified Department Allergies Active Allergy Reactions Criticality Noted Date [...] 07/15/2012 Bipolar 1 disorder Overview: Dr Neal, [facility] Tobacco abuse documented as of this encounter [...] 3:45 PM EDT Office Visit Gynecology/Obstetrics [facility] [address] [place] [address] iAden Appiah MD [address] [place] [address] 01/06/2024 11:45 AM EDT Office Visit Gynecology/Obstetrics [facility] [place] [address] [place] [address] Aiden Appiah MD [address] [place] [address] Scheduled Procedures Name Priority Associated Diagnoses Date/Ti [...] Advance Directives occurred with: Patient Care Teams Php Website Developer Relationship Specialty Start Date End Date Angelic Pereira DO [address] [place] [facility] [place] [address] PCP - General Family Medicine 01/20/18 documented as of this encounter
--- OUTSIDE RECORDS SUMMARY | 2023-12-25 19:01 | External Medical Summary ---
Author Name Unknown Address Unknown Organization K1F:LABORATORY [facility] - [address] [address] Laboratory Report Ordering Provider Test Date Status SANTIAGO ABEBE 12/04/2023 01:23:57 Final Observation Date Value Abnormality Reference (Units ) Status WBC, Total 12/04/2023 01:23:57 19.73 Above high normal 4.00-10.80 (K/uL) Final RBC 12/04/2023 01:23:57 4.70 3.85-5.15 (M/uL) Final Hemoglobin 12/04/2023 01:23:57 15.3 12.0-15.3 (g/dL) Final HCT 12/04/2023 01:23:57 45.1 36.0-45.2 (%) Final MCV 12/04/2023 01:23:57 96.0 81.5-97.5 (fL) Final MCH 12/04/2023 01:23:57 32.6 27.0-34.0 (pg) Final MCHC 12/04/2023 01:23:57 33.9 32.0-36.0 (g/dL) Final RDW 12/04/2023 01:23:57 14.3 11.5-15.5 (%) Final Platelets 12/04/2023 01:23:57 269 140-400 (K/uL) Final MPV 12/04/2023 01:23:57 9.7 6.6-11.1 (fL) Final Nucleated erythrocytes/100 leukocytes [Ratio] in Blood by Automated count 12/04/2023 01:23:57 0 <=0 (/100 WBCs) Final Performing Location LABORATORY [facility] - [address] [address]
--- OUTSIDE RECORDS SUMMARY | 2023-12-25 19:01 | External Medical Summary ---
Author Name Unknown Address Unknown Organization K1F:LABORATORY [facility] - [address] [facility] [place] [address] Laboratory Report Ordering Provider Test Date Status SANTIAGO ABEBE 12/04/2023 01:23:57 Final Observation Date Value Abnormality Reference (Units ) Status SYNC LEUKOCYTES IN BLOOD BY AUTOMATED COUNT 12/04/2023 01:23:57 19.73 Above high normal 4.00-10.80 (K/uL) Final Neutrophils/100 leukocytes in Blood by Manual count 12/04/2023 01:23:57 70.0 40.0-75.0 (%) Final Lymphocytes/100 leukocytes in Blood by Manual count 12/04/2023 01:23:57 23.0 18.0-42.0 (%) Final Monocytes/100 leukocytes in Blood by Manual count 12/04/2023 01:23:57 4.0 1.0-11.0 (%) Final Eosinophils/100 leukocytes in Blood by Manual count 12/04/2023 01:23:57 2.0 0.0-6.0 (%) Final Basophils/100 leukocytes in Blood by Manual count 12/04/2023 01:23:57 1.0 0.0-2.0 (%) Final Neutrophils [#/volume] in Blood by Manual count 12/04/2023 01:23:57 13.81 Above high normal 1.80-7.70 (K/uL) Final Lymphocytes [#/volume] in Blood by Manual count 12/04/2023 01:23:57 4.54 1.00-4.80 (K/uL) Final Monocytes [#/volume] in Blood by Manual count 12/04/2023 01:23:57 0.79 0.00-1.10 (K/uL) Final Eosinophils [#/volume] in Blood by Manual count 12/04/2023 01:23:57 0.39 0.00-0.70 (K/uL) Final Basophils [#/volume] in Blood by Manual count 12/04/2023 01:23:57 0.20 0.00-0.20 (K/uL) Final Variant lymphocytes [Presence] in Blood by Light microscopy 12/04/2023 01:23:57 Present Abnormal None Seen Final Performing Location LABORATORY [facility] - [address] [address] [place] [address]
--- OUTSIDE RECORDS SUMMARY | 2023-12-25 19:01 | External Medical Summary ---
Author Name Unknown Address Unknown Organization K01:LABORATORY [facility] - [address] [place] [address] Laboratory Report Ordering Provider Test Date Status ANDRAESAVANNAHJESSI 12/04/2023 08:53:46 Final Observation Date Value Abnormality Reference (Units ) Status Chlamydia trachomatis rRNA [Presence] in Specimen by TRANG with probe detection 12/04/2023 08:53:46 Negative Negative Final No Chlamydia trachomatis det ected by farmworker field crop-mediated nucleic acid amplification. Neisseria gonorrhoeae rRNA [ Presence] in Specimen by TRANG with probe detection 12/04/2023 08:53:46 Negative Negative Final No Neisseria gonorrhoeae det ected by farmworker field crop-mediated nucleic acid amplification. Performing Location LABORATORY [facility] - [address] [place] [address]
--- OUTSIDE RECORDS SUMMARY | 2023-12-25 19:01 | External Medical Summary | Summary of Care ---
Author Name Unknown Organization [facility] Address [address] [place] [address] Phone [phone] Care Team Providers Care Kiln Repairer Name Role Phone Angelic Pereira DO Primary Care Provider [phone] Reason for Visit * Reason Comments Abdominal Pain * Auth/Cert Specialty Diagnoses / Procedures Referred By Contac t Referred To Contact [facility] [address] [place] [address] Phone: [phone] Emergency Medicine [facility] [address] [place] [address] Referral ID Status Reason Start Date Expiration Date Visits Re quested Visits Authorized [id number] Encounter Details Date Type Department Care Team (Late st Contact Info) Description 12/04/2023 12:49 AM EDT - 12/04/2023 9:58 AM EDT Emergency [facility] Emergency Department ([facility]) [address], [place] [id number] Jamie Maldonado DO [address] [place] [address] Saul Navarro MD [address], [place] [id number] RLQ abdominal pain (Primary Dx); Overdose; Pelvic pain in female; Vaginal discharge Discharge Disposition: Home - Self Care Allergies Active Allergy Reactions Criticality Noted Date [...] 07/15/2012 Bipolar 1 disorder Overview: Dr Neal, [facility] Tobacco abuse documented as of this [...] Sign Reading Time Taken Comments Blood Pressure 155/110 12/04/2023 9:54 AM EDT Pulse 90 12/04/2023 9:54 AM EDT Temperature 36.9 C (98.4 F) 12/04/2023 12:46 AM E DT Respiratory Rate 18 12/04/2023 9:54 AM EDT Oxygen Saturation 95% 12/04/2023 3:00 AM EDT Inhaled Oxygen Concentration - - Weight 87.1 kg (192 lb) 12/04/2023 12:46 AM EDT Height - - Body Mass Index 31.95 11/24/2023 1:51 PM EDT documented in this encounter Discharge Instructions * Discharge Instructions* Saul Navarro MD - 12/04/2023 9:14 AM EDT Please follow-up with OBGYN as previously scheduled. Please take the Keflex 3 times daily for 10 days. Please take the Flagyl twice daily for 10 days. For severe pain you can take 1 tablet of tramadol every 6 hours as needed. Please return to the emergency department in the meantime for any new or worsening symptoms otherwise. documented in this encounter Procedure Notes * Serge Guthrie DO - 12/04/2023 1:12 AM EDTAssociated Order(s): EKG REASON FOR STUDY: OD CONCLUSIONS: Sinus tachycardia Possible Left atrial enlargement Incomplete right bundle branch block Borderline ECG When compared with ECG of 29-Apr-2023 15:12, No significant change Ventricular Rate: 111 Atrial Rate: 111 CO Interval: 142 QRS Duration: 98 QT/QTc: 320/435 ms P-R-T [place]: 47 : 0 : 15 degrees documented in this encounter Consult Notes * Isidra Srivastava MD - 12/04/2023 9:44 AM EDT Gynecology - Consult Note REQUESTING SERVICE: ER REASON FOR CONSULT: bed side HPI Brigette Patel is a female with complaints of left pelvic pain. This began couple of moths ago , intermittent in nature. Symptoms located left lower adnexal area/pelvic area. . Symptoms worse with none, made better with pain meds. Patient denies any change in vaginal discharge, dysuria, CP/SOB, palpitations, headaches, lightheadedness, cough, nausea, vomiting, diarrhea, constipation, fever, or chills, urinary or bowel issues. No change in appetite. ROS as above, otherwise negative. Pt sexually active with one partner, no dyspareunia. Pt had endometrial ablation few years ago since then no menses expect recent one episode of period like bleeding three weeks ago with pain. OB HISTORY OB History Para Term AB Living 5 4 0 0 1 4 SAB IAB Ectopic Multiple Live Births 1 0 0 0 4 # Outcome Date GA Lbr Ray/2nd Weight Sex Delivery Anes PTL Lv 5 Para 4 Para 3 Para 2 Para 1 SAB Obstetric Comments 4 c sections. VISUAL LEAD HISTORY Menarche age 14 Pt had endometrial ablation few years ago since then no menses expect recent one episode of period like bleeding three weeks ago with pain. Denies history of abnormal pap smears : long time ago but all recent pap smears normal. Denies history of STIs PAST MEDICAL HISTORY Past Medical History: Diagnosis Date Alcoholic hepatitis without ascites 09/11/2022 Back pain started 2010 after fall from 2nd story Bipolar 1 disorder (HCC) Dr. Drea Vega Generalized anxiety disorder 09/09/2019 Heart failure (HCC) 09/11/2022 Hypertension 2017 Kidney stones Opioid dependence in remission (HCC) 04/17/2017 Pulmonary embolism (HCC) developed after having her gallbladder taken out Seizure-like activity ([facility]) 01/06/2019 Tobacco abuse PAST SURGICAL HISTORY Past Surgical History: Procedure Laterality Date ANESTH, [...] ERUPTED TOOTH AND BONE 04/2016 6 teeth FAMILY HISTORY Family History Problem Relation Age of Onset [...] "major heart probems" Breast Cancer Aunt (Maternal) SOCIAL HISTORY Social History Tobacco Use Smoking status: Every Day Current packs/day: 0.75 Average packs/day: 0.8 packs/day for 19.0 years (14.3 ttl pk-yrs) Types: Cigarettes Passive exposure: Current Smokeless tobacco: Never Vaping Use Vaping Use: Never used Substance Use Topics Alcohol use: Not Currently Comment: last drink 11/03/22, 2 shots vodka with OJ Drug use: Yes Types: Marijuana Comment: delta 8 gummies, a few nights a week ALLERGIES Justicia adhatoda (malabar nut tree) [justicia adhatoda], Morphine, Mushroom extract complex, Penicillins, and Peanut butter flavor REVIEW OF SYSTEMS ROS: Denies headache, blurry vision, runny nose, sore throat, SOB, chest pain, cough, nausea, vomiting, diarrhea, constipation, fever, chills, melanotic or bloody stools, numbness or tingling of extremities, lightheadedness, dizziness. Otherwise, no cardiac, pulmonary, GI, , musculoskeletal, or neurological problems. Remainder of ROS is negative. Positive : pelvic pain( on the left adnexal area) PHYSICAL EXAMINATION BP: 139 mmHg/99 mmHg (12/04/23 0830) Pulse: 94 (12/04/23 0830) Temp: 36.89 C (12/04/23 0046) Temp Summary: Temp Min: 36.9 C (98.4 F) Max: 36.9 C (98.4 F) SpO2: 95 % (12/04/23 0300) O2 flow rate: Supplemental O2 Delivery: Room Air, None (12/04/23 0046) Constitutional: no acute distress, appears stated age Neuro: alert and oriented x3 Eyes: pupils equal bilaterally, non-icteric sclera Cardiac: regular rate and rhythm, no edema Pulm: non labored breathing, clear to auscultation bilaterally GI: Soft, nontender, nondistended, bowel sounds present and normal. MSK: normal range of motion, no deformities. : Speculum exam: Pelvic exam: normal external female genitalia, normal labia, no erythema, no masses or lesions. Normal vaginal introitus, normal vaginal discharge( thick white), normal cervix without lesions, no tenderness , Uterus normal size, mobile, adnexa without masses, tender on the left adnexal area LABS Labs reviewed as indicated below: Latest Reference Range & Units 12/04/23 01:23 Sodium 135 - 146 mmol/L 142 Potassium 3.5 - 5.1 mmol/L 3.9 Chloride 98 - 107 mmol/L 105 CO2 22 - 32 mmol/L 19 (L) BUN 6 - 20 mg/dL 4 (L) Creatinine 0.5 - 1.0 mg/dL 0.7 Estimated Glomerular Filtration Rate >=60 mL/min >90 Anion Gap 7 - 15 mmol/L 18 (H) Glucose 70 - 120 mg/dL 117 Calcium 8.4 - 10.2 mg/dL 10.2 Protein 6.0 - 8.3 g/dL 8.6 (H) Lipase 13 - 60 U/L 43 Beta-HCG, Quantitative <=1.0 mIU/mL <0.1 CBC Rpt ! WBC 4.00 - 10.80 K/uL 19.73 (H) RBC 3.85 - 5.15 M/uL 4.70 HGB 12.0 - 15.3 g/dL 15.3 HCT 36.0 - 45.2 % 45.1 MCV 81.5 - 97.5 fL 96.0 MCH 27.0 - 34.0 pg 32.6 MCHC 32.0 - 36.0 g/dL 33.9 RDW 11.5 - 15.5 % 14.3 PLT 140 - 400 K/uL 269 MPV 6.6 - 11.1 fL 9.7 CBC WITH WBC DIFFERENTIAL Rpt ! Absolute Neutrophils 1.80 - 7.70 K/uL 13.81 (H) Absolute Lymphocytes 1.00 - 4.80 K/uL 4.54 Absolute Monocytes 0.00 - 1.10 K/uL 0.79 Absolute Eosinophils 0.00 - 0.70 K/uL 0.39 Absolute Basophils 0.00 - 0.20 K/uL 0.20 (L): Data is abnormally low (H): Data is abnormally high !: Data is abnormal Rpt: View report in Results Review for more information IMAGING PROCEDURE INFORMATION: Exam: US Duplex Artery and [...] follicular cysts measuring up to 2.1 cm. IMPRESSION Pelvic pain ( left adnexal pain) Leukocytoses from adnexal cyst/abscess S/p endometrial ablation Multiple surgeries possible pain from scar tissue/adhesions RECOMMENDATIONS Pt scheduled for Hysterectomy with Dr. Appiah on December 24 Pt is clinically and hemodynamically stable to be discharged on PO antibiotics flagyl, keflex. Reccommended warm compressors pain meds as needed. Thank you for the consult. documented in this encounter ED Notes * Saul Navarro MD - 12/04/2023 9:28 AM EDT Transfer of care: pt here with acute on chronic pain in abdomen. History of cirrhosis, obesity, alcohol abuse. CT abd/pel, and pelvic US negative. Labs unremarkable, chronic leukocytosis, elevated ETOH. Getting repeat ETOH, lactate, BMP. Obgyn coming to see. Saul Navarro MD Emergency Medicine, [facility] Patient was evaluated by OBGYN, they recommended treatment with Keflex and Flagyl for 10 days. Recommended tramadol prescription for pain. PDMP checked, no recent opioid prescriptions noted. Three days of tramadol sent to the pharmacy. They will see her in the office for follow-up. Return precautions given. Discharged home in stable condition. Saul Navarro MD Emergency Medicine, [facility] * Leann Slaughter RN - 12/04/2023 12:44 AM EDT Patient reports abdominal pain, is suppose to get hysterectomy out on the 10th. Griselda james givesher fentanyl and sends her home. Patient reports taking approximately 10 "sleep aid" pills to help her sleep. (Diphenhydramine HCL 25mg) documented in this encounter Miscellaneous Notes * ED Boom Man Note - Emre Wheat RN - 12/04/2023 9:57 AM EDT PIV removed with cath tip intact and no signs of infection. Reviewed discharge instructions with patient, who verbalized understanding. Ambulated out of ED with steady gait. Significant other presentat the time of discharge. FLACC 0. * ED Boom Man Note - Ceci Hoyos RN - 12/04/2023 9:01 AM EDT 0845 pelvic exam and swabs collected by Dr. Maldonado escorted by this nurse. * ED Boom Man Note - Yogesh Bailey RN - 12/04/2023 2:09 AM EDT Pt comes in for evaluation via POV from home for continued generalized lower abd pain. Pt states that she has been having issues with this pain for "too long now". Pt states that she follows with [facility] for same. Is scheduled for a hysterectomy on Dec 25 2023. Pt states that the pain is just "unbearable". Pt reports that she has "tried everything to get comfortable tonight". Pt reports that she took 4 - 200 mg ibuprofen capsules, 5 - 500 mg tylenol tablets, 8-10 diphenhydramine 25 mg tablets, and 6 shots of vodka at approx [phone]. documented in this encounter Plan of Treatment Upcoming Encounters Date Type Department Care Team (Late st Contact Info) Description 12/14/2023 3:45 PM EDT Office Visit Gynecology/Obstetrics [facility] [address] [place] [address] Aiden Appiah MD [address] [place] [id number] 01/06/2024 11:45 AM EDT Office Visit Gynecology/Obstetrics [facility] [address] [address] Aiden Appiah MD [address] [place] [id number] Pending Results Name Type Priority Associated Diagnoses Date /Time VAGINOSIS PANEL, PCR Lab STAT 11/15 8:53 AM EDT CHLAMYDIA TRACHOMATIS AND NEISSERIA GONORRHOEAE, AMPLIFIED PROBE Lab STAT 12/04/2023 8:53 AM EDT Scheduled Orders Name Type Priority Associated Diagnoses Orde r Schedule BASIC METABOLIC PANEL Lab STAT Per form Now for 1 Occurrences starting 12/04/2023 until 12/04/2023 ETHANOL, MEDICAL Lab STAT Perform Now for 1 Occurrences starting 12/04/2023 until 12/04/2023 LACTATE Lab STAT Perform Now fo r 1 Occurrences starting 12/04/2023 until 12/04/2023 VAGINOSIS PANEL, PCR Lab STAT Perf orm Now for 1 Occurrences starting 12/04/2023 until 12/04/2023 CHLAMYDIA TRACHOMATIS AND NEISSERIA GONORRHOEAE, AMPLIFIED PROBE Lab STAT Perform Now for 1 Occurrences starting 12/04/2023 until 12/04/2023 Scheduled Procedures Name Priority Associated Diagnoses Date/Ti [...] Not on filedocumented as of this encounter Procedures Procedure Name Priority Date/Time Associated Diagnosis Comments CT ABD/PELVIS W IV CONTRAST - WO ORAL CONTRAST STAT 12/04/2023 5:52 AM EDT US PELVIS TRANS-VAGINAL NON-OB STAT 12/04/2023 5:49 AM EDT EXTRA HUNT TOP Routine 12/04/2023 1:24 AM EDT URINALYSIS, REFLEX TO CULTURE STAT 12/04/2023 1:23 AM EDT URINALYSIS, REFLEX TO CULTURE (CUP ONLY) STAT 12/04/2023 1:23 AM EDT EXTRA LIGHT BLUE TOP STAT 12/04/2023 1:23 AM EDT DIFFERENTIAL, AUTOMATED STAT 12/04/2023 1:23 AM EDT URINALYSIS, REFLEX TO CULTURE (NOT FOR NEUTROPENIC PATIENTS) STAT 12/04/2023 1:23 AM EDT BETA-HCG, QUANTITATIVE STAT 1:23 AM EDT COMPREHENSIVE METABOLIC PANEL STAT 12/04/2023 1:23 AM EDT CBC STAT 12/04/2023 1:23 AM EDT LIPASE STAT 12/04/2023 1:23 AM EDT ETHANOL, MEDICAL Add-on 12/04/2023 1:23 AM EDT CBC STAT 12/04/2023 1:23 AM EDT DIFFERENTIAL, TECHNOLOGIST REVIEW Routine 12/04/2023 1:23 AM EDT ACETAMINOPHEN LEVEL STAT 12/04/2023 1 :23 AM EDT SALICYLATES LEVEL STAT 12/04/2023 1:2 3 AM EDT HC ECG TRACING ONLY STAT 12/04/2023 1 :12 AM EDT Overdose documented in this encounter Results * CT ABD/PELVIS W IV CONTRAST - WO ORAL CONTRAST (12/04/2023 5:52 AM EDT) Anatomical Region Laterality Modality Body, Abdomen, Pelvis Computed T omography 12/04/2023 5:27 AM EDT Impressions 12/04/2023 7:20 AM EDT IMPRESSION: No acute findings. Cirrhosis and sequela of portal venous hypertension. Right ovarian follicular cysts measuring up to 2.5 cm. THIS DOCUMENT HAS BEEN ELECTRONICALLY SIGNED BY CALLIE CARRILLO MD Narrative 12/04/2023 7:20 AM EDT PROCEDURE INFORMATION: Exam: CT Abdomen And Pelvis With Contrast Exam date and time: 12/04/2023 5:27 AM Age: 38 years old Clinical indication: Abdominal pain; Additional info: Severe central to rlq pain, HX ovarian torsion and dub - eval bowel obstruction v kidney stone v other TECHNIQUE: Imaging protocol: Computed tomography of the abdomen and pelvis with contrast. Radiation optimization: All CT scans at this facility use at least one of these dose optimization techniques: automated exposure control; mA and/or kV adjustment per patient size (includes targeted exams where dose is matched to clinical indication); or iterative reconstruction. Contrast material: [id number]; Contrast volume: 100 ml; Contrast route: INTRAVENOUS (IV); COMPARISON: CT ABDOMEN PELVIS WITH(Adult) 08/29/2022 11:50 AM FINDINGS: Lungs: Lung bases are clear. Liver: Liver is heterogeneous and enlarged. Contour is nodular suspicious for cirrhosis. Gallbladder and bile ducts: Cholecystectomy. No biliary ductal dilatation. Pancreas: Normal. No ductal dilation. Spleen: Spleen is enlarged measuring 14.9 cm in coronal dimension, increased from the prior study. Adrenal glands: Normal. No mass. Kidneys and ureters: Kidneys enhance symmetrically. No renal stones or hydronephrosis. Stomach and bowel: Stomach is unremarkable. Normal caliber small bowel. Appendix: Appendectomy. Intraperitoneal space: Unremarkable. No free air. No significant fluid collection. Vasculature: Main portal vein is patent. Mild atherosclerotic disease. No aortic aneurysm. Mild portosystemic varices in the upper abdomen. Lymph nodes: Few shotty nodes are seen in the epigastric region are seen measuring up to 5 mm in size. Shotty nodes are seen in the aortocaval periportal regions as well measuring up to 1 cm in size. No pathologic sized adenopathy. Urinary bladder: Bladder is decompressed. Reproductive: Follicular cysts are seen in the right ovary measuring up to 2.4 cm. Left ovary is unremarkable. Unremarkable uterus. Bones/joints: Unremarkable. No acute fracture. Soft tissues: Small fat containing umbilical hernia. Procedure Note Callie Carrillo MD - 12/04/2023 PROCEDURE INFORMATION: Exam: CT Abdomen And Pelvis With Contrast Exam date and time: 12/04/2023 5:27 AM Age: 38 years old Clinical indication: Abdominal pain; Additional info: Severe central torlq pain, HX ovarian torsion and dub - eval bowel obstruction v kidney stone v other TECHNIQUE: Imaging protocol: Computed tomography of the abdomen and pelvis withcontrast. Radiation optimization: All CT scans at this facility use at least one ofthese dose optimization techniques: automated exposure control; mA and/or kV adjustment per patient size (includes targeted exams where dose is matchedto clinical indication); or iterative reconstruction. Contrast material: [id number]; Contrast volume: 100 ml; Contrast route: INTRAVENOUS (IV); COMPARISON: CT ABDOMEN PELVIS WITH(Adult) 08/29/2022 11:50 AM FINDINGS: Lungs: Lung bases are clear. Liver: Liver is heterogeneous and enlarged. Contour is nodular suspiciousfor cirrhosis. Gallbladder and bile ducts: Cholecystectomy. No biliary ductal dilatation. Pancreas: Normal. No ductal dilation. Spleen: Spleen is enlarged measuring 14.9 cm in coronal dimension,increased from the prior study. Adrenal glands: Normal. No mass. Kidneys and ureters: Kidneys enhance symmetrically. No renal stones or hydronephrosis. Stomach and bowel: Stomach is unremarkable. Normal caliber small bowel. Appendix: Appendectomy. Intraperitoneal space: Unremarkable. No free air. No significant fluid collection. Vasculature: Main portal vein is patent. Mild atherosclerotic disease. No aortic aneurysm. Mild portosystemic varices in the upper abdomen. Lymph nodes: Few shotty nodes are seen in the epigastric region are seen measuring up to 5 mm in size. Shotty nodes are seen in the aortocaval periportal regions as well measuring up to 1 cm in size. No pathologicsized adenopathy. Urinary bladder: Bladder is decompressed. Reproductive: Follicular cysts are seen in the right ovary measuring upto 2.4 cm. Left ovary is unremarkable. Unremarkable uterus. Bones/joints: Unremarkable. No acute fracture. Soft tissues: Small fat containing umbilical hernia. IMPRESSION IMPRESSION: No acute findings. Cirrhosis and sequela of portal venous hypertension. Right ovarian follicular cysts measuring up to 2.5 cm. THIS DOCUMENT HAS BEEN ELECTRONICALLY SIGNED BY CALLIE CARRILLO MD Jamie Maldonado DO RAD CT * US PELVIS TRANS-VAGINAL NON-OB (12/04/2023 5:49 AM EDT) Anatomical Region Laterality Modality Pelvis, Body Ultrasound 12/04/2023 5:18 AM EDT Impressions 12/04/2023 7:15 AM EDT IMPRESSION: No evidence of ovarian torsion. PROCEDURE [...] follicular cysts measuring up to 2.1 cm. THIS DOCUMENT HAS BEEN ELECTRONICALLY SIGNED BY CALLIE CARRILLO MD Narrative 12/04/2023 7:15 AM EDT PROCEDURE INFORMATION: Exam: US Duplex Artery and [...] Left ovary: Normal arterial and venous flow. Procedure Note Callie Carrillo MD - 12/04/2023 PROCEDURE INFORMATION: Exam: US Duplex Artery and Vein of the Abdominal and/or ReproductiveOrgans, Complete Exam date and time: 12/04/2023 5:18 AM Clinical indication: Pelvic pain; Patient HX: Appy, ablation; Additionalinfo: Eval severe rlq pain, HX torsion same side TECHNIQUE: Imaging protocol: Real-time duplex ultrasound scan of the arterial andvenous flow of the abdominal and/or reproductive organs with B-mode, colorDoppler flow and spectral waveform analysis with image documentation. Exam focusedon the region of clinical concern. Complete exam. Duplex exam was performedto evaluate for vascular conditions. COMPARISON: No relevant prior studies available. FINDINGS: Right ovary: Normal arterial and venous flow. Left ovary: Normal arterial and venous flow. IMPRESSION IMPRESSION: No evidence of ovarian torsion. PROCEDURE INFORMATION: Exam: US Pelvis, Transvaginal Exam date and time: 12/04/2023 5:18 AM Age: 38 years old Clinical indication: Pelvic pain; Patient HX: Appy, ablation; Additionalinfo: Eval severe rlq pain, HX torsion same [...] ovary is normal in size and echogenicity measuring1.6 x 2.1 x 1.9 cm. Intraperitoneal space: No free fluid. IMPRESSION: 1. Heterogeneous uterus which may be related to myomatous involvement. 2. Multiple right ovarian follicular cysts measuring up to 2.1 cm. THIS DOCUMENT HAS BEEN ELECTRONICALLY SIGNED BY CALLIE CARRILLO MD Jamie Maldonado DO RAD ULTRASOUND * EXTRA HUNT TOP (12/04/2023 1:24 AM EDT) Blood Venous blood specimen / Unknown Venipuncture / Unknown 12/04/2023 1:24 AM EDT 12/04/2023 1:25 AM EDT Skyler Navarrete MD LAB BLOOD [facility] [address] [address] * (ABNORMAL) DIFFERENTIAL, TECHNOLOGIST REVIEW (12/04/2023 1:23 AM EDT) WBC 19.73(H) 4.00 - 10.80 K/uL 12/04/2023 3:18 AM EDT LABORATORY GL Neutrophils % 70.0 40.0 - 75.0 % 12/04/2023 3:18 AM EDT LABORATORY GL Lymphocytes % 23.0 18.0 - 42.0 % 12/04/2023 3:18 AM EDT LABORATORY GL Monocytes % 4.0 1.0 - 11.0 % 12/04/2023 3:18 AM EDT LABORATORY GL Eosinophils % 2.0 0.0 - 6.0 % 12/04/2023 3:18 AM EDT LABORATORY GLH Basophils % 1.0 0.0 - 2.0 % 12/04/2023 3:18 AM EDT LABORATORY GL[facility] Absolute Neutrophils 13.81(H) 1.80 - 7.70 K/uL 12/04/2023 3:18 AM EDT LABORATORY GL[facility] Absolute Lymphocytes 4.54 1.00 - 4.80 K/uL 12/04/2023 3:18 AM EDT LABORATORY GL[facility] Absolute Monocytes 0.79 0.00 - 1.10 K/uL 12/04/2023 3:18 AM EDT LABORATORY [facility] Absolute Eosinophils 0.39 0.00 - 0.70 K/uL 12/04/2023 3:18 AM EDT LABORATORY [facility] Absolute Basophils 0.20 0.00 - 0.20 K/uL 12/04/2023 3:18 AM EDT LABORATORY [facility] Reactive Lymphocytes Present(A ) None Seen 12/04/2023 3:18 AM EDT LABORATORY [facility] Blood Venous blood specimen / Unknown Venipuncture / Unknown 12/04/2023 1:23 AM EDT 12/04/2023 1:25 AM EDT Jamie Maldonado LAB BLOOD [facility] [address] [place] [address] * (ABNORMAL) ETHANOL, MEDICAL (12/04/2023 1:23 AM EDT) Pathologist [facility] Ethanol, Medical 168.0(H) Negative mg/dL 12/04/2023 1:54 AM EDT LABORATORY GL[facility] Blood Venous blood specimen / Unknown Venipuncture / Unknown 12/04/2023 1:23 AM EDT 12/04/2023 1:25 AM EDT Jamie Maldonado LAB BLOOD ORDE [facility] Performing Organization Address City/[facility]/ZIP Co de Phone Number LABORATORY [facility] [address] [place] [address] * (ABNORMAL) ACETAMINOPHEN LEVEL (12/04/2023 1:23 AM EDT) Acetaminophen Level <5.0(L) 10.0 - 30.0 ug/mL 12/04/2023 1:49 AM EDT LABORATORY GL Blood Venous blood specimen / Unknown Venipuncture / Unknown 12/04/2023 1:23 AM EDT 12/04/2023 1:25 AM EDT [facility] BLOOD ORDLucas COELHO Performing Organization Address [facility] Co de Phone Number LABORATORY [address] [phone] * (ABNORMAL) SALICYLATES LEVEL (12/04/2023 1:23 AM EDT) Salicylates Level <0.3(L) 5.0 - 30.0 mg/dL 12/04/2023 1:49 AM EDT LABORATORY [facility] Blood Venous blood specimen / Unknown Venipuncture / Unknown 12/04/2023 1:23 AM EDT 12/04/2023 1:25 AM EDT Jamie [facility] BLOOD NALLENLucas COELHO Performing Organization Address [facility] Co de Phone Number LABORATORY [address] [address] * (ABNORMAL) URINALYSIS, REFLEX TO CULTURE (12/04/2023 1:23 AM EDT) Color, Urine Yellow Light Yellow, Yellow, Dark Yellow 12/04/2023 2:05 AM EDT LABORATORY [facility] Clarity, Urine Clear Clear 12/04/2023 2:05 AM EDT LABORATORY [facility] Glucose, Urine Negative Negative mg/dL 12/04/2023 2:05 AM EDT LABORATORY [facility] Bilirubin, Urine Negative Negative 12/04/2023 2:05 AM EDT LABORATORY [facility] Ketone, Urine Negative Negative mg/dL 12/04/2023 2:05 AM EDT LABORATORY GL Specific Patterson, Urine 1.008 1.003 - 1.030 12/04/2023 2:05 AM EDT LABORATORY GL Blood, Urine Trace(A) Negative 12/04/2023 2:05 AM EDT LABORATORY GL pH, Urine 6.0 5.0 - 7.5 Units 12/04/2023 2:05 AM EDT LABORATORY GL Protein, Urine Negative Negative mg/dL 12/04/2023 2:05 AM EDT LABORATORY GL Urobilinogen, Urine 0.2 0.2, 1.0 mg/dL 12/04/2023 2:05 AM EDT LABORATORY GL Nitrite, Urine Negative Negative 12/04/2023 2:05 AM EDT LABORATORY GLH Esterase, Urine Negative Negative 12/04/2023 2:05 AM EDT LABORATORY GL RBC, Urine 0-2 0 - 2 /HPF 12/04/2023 2:05 AM EDT LABORATORY GL WBC, Urine 0-2 0 - 2 /HPF 12/04/2023 2:05 AM EDT LABORATORY GL Bacteria, Urine 0-25 0 - 25 /HPF 12/04/2023 2:05 AM EDT LABORATORY [facility] Culture, Urine 12/04/2023 2:05 AM EDT LABORATORY GL Comment:Culture not indicate d by urinalysis results Urine Urine specimen obtained by clean catch procedure / Unknown Non-blood Collection / Unknown 12/04/2023 1:23 AM EDT 12/04/2023 1:23 AM EDT Jamie Maldonado DO LAB URINE MINDY COELHO [facility] Organization Address City/State/[facility] Co de Phone Number LABORATORY [address] [address] * URINALYSIS, REFLEX TO CULTURE (CUP ONLY) (12/04/2023 1:23 AM EDT) Urinalysis, Reflex to Culture Specimen Specimen collected and received 12/04/2023 3:01 AM EDT LABORATORY [facility] Urine Urine specimen obtained by clean catch procedure / Unknown Non-blood Collection / Unknown 12/04/2023 1:23 AM EDT 12/04/2023 1:23 AM EDT [facility] MINDY COELHO Performing Organization Address City/[facility]/ZIP Co de Phone Number LABORATORY [address] [address] * DIFFERENTIAL, AUTOMATED (12/04/2023 1:23 AM EDT) Blood Venous blood specimen / Unknown Venipuncture / Unknown 12/04/2023 1:23 AM EDT 12/04/2023 1:25 AM EDT [facility] MINDY CO[facility] Performing Organization Address City/[facility]/ZIP Co de Phone Number LABORATORY [address] [address] * (ABNORMAL) CBC (12/04/2023 1:23 AM EDT) WBC 19.73(H) 4.00 - 10.80 K/uL 12/04/2023 1:29 AM EDT LABORATORY [facility] RBC 4.70 3.85 - 5.15 M/uL 12/04/2023 1:29 AM EDT LABORATORY [facility] HGB 15.3 12.0 - 15.3 g/dL 12/04/2023 1:29 AM EDT LABORATORY [facility] HCT 45.1 36.0 - 45.2 % 12/04/2023 1:29 AM EDT LABORATORY [facility] MCV 96.0 81.5 - 97.5 fL 12/04/2023 1:29 AM EDT LABORATORY [facility] MCH 32.6 27.0 - 34.0 pg 12/04/2023 1:29 AM EDT LABORATORY [facility] MCHC 33.9 32.0 - 36.0 g/dL 12/04/2023 1:29 AM EDT LABORATORY [facility] RDW 14.3 11.5 - 15.5 % 12/04/2023 1:29 AM EDT LABORATORY [facility] PLT 269 140 - 400 K/uL 12/04/2023 1:29 AM EDT LABORATORY [facility] MPV 9.7 6.6 - 11.1 fL 12/04/2023 1:29 AM EDT LABORATORY [facility] nRBCs 0 <=0 /100 WBCs 12/04/2023 1:29 AM EDT LABORATORY [facility] Blood Venous blood specimen / Unknown Venipuncture / Unknown 12/04/2023 1:23 AM EDT 12/04/2023 1:25 AM EDT Jamie Farhat Stevensmelanie LAB BLOOD ORDE MELITON Performing Organization Address [facility] Co de Phone Number LABORATORY [address] [address] * BETA-HCG, QUANTITATIVE (12/04/2023 1:23 AM EDT) [facility] Beta-HCG, Quantitative <0.1 <=1.0 mIU/mL 12/04/2023 1:57 AM EDT LABORATORY [facility] Blood Venous blood specimen / Unknown Venipuncture / Unknown 12/04/2023 1:23 AM EDT 12/04/2023 1:25 AM EDT Narrative LABORATORY [facility] - 12/04/2023 1:57 AM EDT hCG can serve as a screening assay for . However, early may not give a positive hCG test result. In addition, some non- women may have a hCG result slightly higher than the reference limit. Careful interpretation of the hCG with clinical history is required to determine whether the patient may be . Jamie Maldonado LAB BLOOD ORDLucas COELHO Performing Organization Address [facility] de Phone Number LABORATORY [address] [address] * EXTRA LIGHT BLUE TOP (12/04/2023 1:23 AM EDT) Blood Venous blood specimen / Unknown Venipuncture / Unknown 12/04/2023 1:23 AM EDT 12/04/2023 1:25 AM EDT Jamie Farhat Stevensmelanie LAB BLOOD ORDE MELITON Performing Organization Address City/[facility]/ZIP Co de Phone Number LABORATORY [address] [address] * LIPASE (12/04/2023 1:23 AM EDT) Lipase 43 13 - 60 U/L 12/04/2023 1:49 AM EDT LABORATORY [facility] Blood Venous blood specimen / Unknown Venipuncture / Unknown 12/04/2023 1:23 AM EDT 12/04/2023 1:25 AM EDT Jamie Maldonado DO LAB BLOOD MINDY COELHO LABORATORY [facility] [address] [place] [address] * (ABNORMAL) COMPREHENSIVE METABOLIC PANEL (12/04/2023 1:23 AM EDT) BUN 4(L) 6 - 20 mg/dL 12/04/2023 1:49 AM EDT LABORATORY [facility] Creatinine 0.7 0.5 - 1.0 mg/dL 12/04/2023 1:49 AM EDT LABORATORY [facility] Estimated Glomerular Filtration Rate >90 >=60 mL/min 12/04/2023 1:49 AM EDT LABORATORY [facility] Comment:eGFR is calculated b ased on the CKD-EPI 2020 equation Sodium 142 135 - 146 mmol/L 12/04/2023 1:49 AM EDT LABORATORY [facility] Potassium 3.9 3.5 - 5.1 mmol/L 12/04/2023 1:49 AM EDT LABORATORY [facility] Chloride 105 98 - 107 mmol/L 12/04/2023 1:49 AM EDT LABORATORY [facility] CO2 19(L) 22 - 32 mmol/L 12/04/2023 1:49 AM EDT LABORATORY [facility] Anion Gap 18(H) 7 - 15 mmol/L 12/04/2023 1:49 AM EDT LABORATORY [facility] Glucose 117 70 - 120 mg/dL 12/04/2023 1:49 AM EDT LABORATORY [facility] Albumin 4.6 3.8 - 5.0 g/dL 12/04/2023 1:49 AM EDT LABORATORY [facility] AST 31 10 - 35 U/L 12/04/2023 1:49 AM EDT LABORATORY [facility] Alkaline Phosphatase 366(H) 35 - 130 U/L 12/04/2023 1:49 AM EDT LABORATORY [facility] Bilirubin, Total 0.4 <=1.2 mg/dL 12/04/2023 1:49 AM EDT LABORATORY [facility] Calcium 10.2 8.4 - 10.2 mg/dL 12/04/2023 1:49 AM EDT LABORATORY [facility] Protein 8.6(H) 6.0 - 8.3 g/dL 12/04/2023 1:49 AM EDT LABORATORY [facility] ALT 22 10 - 35 U/L 12/04/2023 1:49 AM EDT LABORATORY [facility] Blood Venous blood specimen / Unknown Venipuncture / Unknown 12/04/2023 1:23 AM EDT 12/04/2023 1:25 AM EDT Jamie Maldonado DO LAB BLOOD ORDE MELITON Performing Organization Address City/[facility]/ZIP Co de Phone Number LABORATORY [facility] [address] [place], [place] [id number] * EKG (12/04/2023 1:12 AM EDT) 12/04/2023 1:12 AM EDT Narrative Procedure Note Serge Guthrie DO - 12/04/2023 1:12 AM EDT REASON FOR STUDY: OD CONCLUSIONS: Sinus tachycardia Possible Left atrial enlargement Incomplete right bundle branch block Borderline ECG When compared with ECG of 29-Apr-2023 15:12, No significant change Ventricular Rate: 111 Atrial Rate: 111 CO Interval: 142 QRS Duration: 98 QT/QTc: 320/435 ms P-R-T [place]: 47 : 0 : 15 degrees Jamie Maldonado DO EKG Performing Organization Address City/[facility]/ZIP Co de Phone Number [facility] documented in this encounter Visit Diagnoses Diagnosis RLQ abdominal pain- Primary Abdominal pain, right lower quadrant Overdose Poisoning by unspecified drug or medicinal substance Pelvic pain in female Unspecified symptom associated with female genital organs Vaginal discharge Leukorrhea, not specified as infective documented in this encounter Administered Medications Inactive Administered Medications - up to 3 most recent administrations Medication Order MAR Action Action Date Dose Rate Site Cephalexin (Keflex) cap 500 mg 500 mg, Oral, ONCE, On Thu12/04/23 at 1000, For 1 dose Given 12/04/2023 9:36 AM EDT 500 mg HYDROmorphone (Dilaudid) inj 0.5 mg 0.5 mg, IV Push, ONCE, On Thu12/04/23 at 0445, For 1 dose Given 12/04/2023 4:53 AM EDT 0.5 mg HYDROmorphone (Dilaudid) inj 0.5 mg 0.5 mg, IV Push, ONCE, On Thu12/04/23 at 0645, For 1 dose Given 12/04/2023 6:30 AM EDT 0.5 mg HYDROmorphone (Dilaudid) inj 0.5 mg 0.5 mg, IV Push, ONCE, On Thu12/04/23 at 1000, For 1 dose Given 12/04/2023 9:35 AM EDT 0.5 mg Ioversol (Optiray 320) inj 100 mL 100 mL, Intravenous, ONCE, On Thu12/04/23 at 0630, For 1 dose, Radiology Medication Routing (Non-IR) Given 12/04/2023 5:52 AM EDT 100 mL ketorolac (Toradol) 30 MG/ML inj 15 mg 15 mg, IV Push, ONCE, On Thu12/04/23 at 0845, For 1 dose Given 12/04/2023 8:57 AM EDT 15 mg metroNIDAZOLE (Flagyl) tab 500 mg 500 mg, Oral, ONCE, On Thu12/04/23 at 1000, For 1 dose Given 12/04/2023 9:36 AM EDT 500 mg NSS 0.9% 1,000 mL bolus infusion IV Piggyback, Wide open, This infusion may be completed in less than 1 hour, since it will be a wide open rate, ONCE, 1 dose, On Thu12/04/23 at 0445 Restarted 12/04/2023 6:00 AM EDT 12 00 mL/hr Restarted 12/04/2023 5:52 AM EDT 1200 mL/hr New Bag 12/04/2023 4:52 AM EDT 1,000 mL 1200 mL/hr documented in this encounter Active and Recently Administered Medications Times are shown in EDT. Scheduled Medication Order 12/02/2023 12/03/2023 12/04/2023 Cephalexin (Keflex) cap 500 mg (COMPLETED) 500 mg, Oral, ONCE, On Thu12/04/23 at 1000, For 1 dose 0936 (Given - Provid er: Emre Wheat RN) HYDROmorphone (Dilaudid) inj 0.5 mg (COMPLETED) 0.5 mg, IV Push, ONCE, On Thu12/04/23 at 0445, For 1 dose 0453 (Given - Provid er: Sudha Werner RN) HYDROmorphone (Dilaudid) inj 0.5 mg (COMPLETED) 0.5 mg, IV Push, ONCE, On Thu12/04/23 at 0645, For 1 dose 0630 (Given - Provid er: Sudha Werner RN) HYDROmorphone (Dilaudid) inj 0.5 mg (COMPLETED) 0.5 mg, IV Push, ONCE, On Thu12/04/23 at 1000, For 1 dose 0935 (Given - Provid er: Emre Wheat RN) Ioversol (Optiray 320) inj 100 mL (COMPLETED) 100 mL, Intravenous, ONCE, On Thu12/04/23 at 0630, For 1 dose, Radiology Medication Routing (Non-IR) 0552 (Given - Provid er: J Luis Mckenna, RT (R)) ketorolac (Toradol) 30 MG/ML inj 15 mg (COMPLETED) 15 mg, IV Push, ONCE, On Thu12/04/23 at 0845, For 1 dose 0857 (Given - Provid er: Ceci Hoyos RN) metroNIDAZOLE (Flagyl) tab 500 mg (COMPLETED) 500 mg, Oral, ONCE, On Thu12/04/23 at 1000, For 1 dose 0936 (Given - Provid er: Emre Wheat RN) NSS 0.9% 1,000 mL bolus infusion (COMPLETED) IV Piggyback, Wide open, This infusion may be completed in less than 1 hour, since it will be a wide open rate, ONCE, 1 dose, On Thu12/04/23 at 0445 0452 (New Bag - Prov ider: Sudha Werner RN)0510 (Paused - Provider: Emre Wheat RN)0552 (Restarted - Provider: Emre Wheat RN)0553 (Paused - Provider: Emre Wheat RN)0600 (Restarted - Provider: Emre Wheat RN)0633 (Stopped - Provider: Emre Wheat RN) documented in this encounter Advance Directives Latest [...] Advance Directives occurred with: Patient Care Teams Kiln Repairer Relationship Specialty Start Date End Date Angelic Pereira DO [address] [place] [address] PCP - General Family Medicine 01/20/18 documented as of this encounter
--- OUTSIDE RECORDS SUMMARY | 2023-12-25 19:01 | External Medical Summary ---
Author Name Unknown Address Unknown Organization K1F[facility] [address] [facility] [place] [address] Laboratory Report Ordering Provider Test Date Status SANTIAGO ABEBE 12/04/2023 01:23:56 Final Observation Date Value Abnormality Reference (Units ) Status Color of Urine by Auto 12/04/2023 01:23:56 Yellow Light Yellow, Yellow, Dark Yellow Final Clarity, Urine 12/04/2023 01:23:56 Clear Clear Final Glucose [Mass/volume] in Urine by Automated test strip 12/04/2023 01:23:56 Negative Negative (mg/dL) Final Bilirubin.total [Presence] in Urine by Automated test strip 12/04/2023 01:23:56 Negative Negative Final Ketones [Mass/volume] in Urine by Automated test strip 12/04/2023 01:23:56 Negative Negative (mg/dL) Final Specific gravity, Urine 12/04/2023 01:23:56 1.008 1.003-1.030 Final Hemoglobin [Presence] in Urine by Automated test strip 12/04/2023 01:23:56 Trace Abnormal Negative Final pH, Urine 12/04/2023 01:23:56 6.0 5.0-7.5 (Units) Final Protein [Mass/volume] in Urine by Automated test strip 12/04/2023 01:23:56 Negative Negative (mg/dL) Final Urobilinogen [Mass/volume] in Urine by Automated test strip 12/04/2023 01:23:56 0.2 0.2, 1.0 (mg/dL) Final Nitrite [Presence] in Urine by Automated test strip 12/04/2023 01:23:56 Negative Negative Final Leukocyte esterase [Presence] in Urine by Automated test strip 12/04/2023 01:23:56 Negative Negative Final RBC, Urine 12/04/2023 01:23:56 0-2 0-2 (/HPF) Final WBC, Urine 12/04/2023 01:23:56 0-2 0-2 (/HPF) Final Bacteria [#/area] in Urine sediment by Microscopy high power field 12/04/2023 01:23:56 0-25 0-25 (/HPF) Final CULTURE, URINE - [facility] 12/04/2023 01:23:56 Final Culture not indicated by uri nalysis results\[id number]\ Performing Location LABORATORY [address] [facility] [address]
[2023-12-25] MEDS: LORazepam 1 MG TAB PO PRN (19:02)
--- OUTSIDE RECORDS SUMMARY | 2023-12-25 19:02 | External Medical Summary | Summary of Care ---
Author Name Unknown Organization [facility] Address [address] [address] Phone [phone] Care Team Providers Care Manager Reimbursement Name Role Phone Angelic Pereira DO Primary Care Provider [phone] Reason for Visit * Reason Onset Date Comments Advice 11/26/2023 Encounter Details Date Type Department Care Team (Late st Contact Info) Description 11/26/2023 Telephone Gynecology/Obstetrics [facility] [address] [place] [address] Aiden Appiah MD [address] [place] [id number] Advice Allergies Active Allergy Reactions Criticality Noted Date Comments Justicia Adhatoda High 01/02/2023 Other reaction(s): Anaphylaxis Morphine Hives High 12/30/2012 Other reaction(s): Hives Mushroom Extract Complex Hives High 05/21/2015 mushrooms Other reaction(s): Hives Peanut Butter Flavor Hives 05/21/2015 Peanuts, nuts Penicillins Unknown High 12/30/2012 Told as a child Other reaction(s): Difficulty Breathing documented as of this encounter (statuses as of 11/30/2023) Medications Medication Sig Dispensed Refills Start Date [...] as of this encounter (statuses as of 11/30/2023) Active Problems Problem Noted Date Diagnosed Date Alcoholic hepatitis without ascites 09/11/2022 Fatty liver 09/11/2022 Heart failure 09/11/2022 Major depressive disorder with single episode Alcohol abuse with intoxication, unspecified Family circumstance 09/11/2022 Chronic hypokalemia 03/29/2021 Infection of tooth 03/29/2021 Generalized anxiety disorder 09/09/2019 Post-traumatic stress disorder, unspecified 08/18 Opioid dependence in remission 04/17/2017 Hypertension 08/17/2016 Hypertensive urgency 07/15/2012 B[facility] documented as of this encounter (statuses as of 11/30/2023) Resolved Problems Problem Noted Date Diagnosed Date [...] as of this encounter (statuses as of 11/30/2023) Immunizations Name Administration Dates Next Due COVID-19 [...] encounter Miscellaneous Notes * Telephone Encounter - Yumiko Anthony OSA [...] 3:25 PM EDT I spoke with Dr. Appiha. He said she can keep her surgery [...] 12/14/2023 3:45 PM EDT Office Visit Gynecology/Obstetrics [facility] [address] [place] [address] Aiden Appiah MD [address] [place] [address] 01/06/2024 11:45 AM EDT Office Visit Gynecology/Obstetrics Nenita Metz [address] [place] [address] Aiden Appiah MD [address] [place] [address] Scheduled Procedures Name Priority Associated Diagnoses Date/Ti [...] Vaccine (FLU shot) (Season Ended) 2024 GFR 07/14/2024 07/14/2023, 04/17, 04/28/2023, Additional history exists Pap Smear 04/29/2026 04/29/2023, 07/17, 07/28/2016, Additional history exists Diabetes Screening 07/14/2026 07/14/2023, 0 04/29/2023, 04/28/2023, Additional history exists COLONOSCOPY-EVERY 5 YRS AGES [...] Advance Directives occurred with: Patient Care Teams Manager Reimbursement Relationship Specialty Start Date End Date Angelic Pereira DO [address] [facility] [place] [address] PCP - General Family Medicine 01/20/18 documented as of this encounter
[2023-12-25] MEDS: oxyCODONE/ACETAMINOPHEN 5mg/325mg TAB PO PRN (20:29)
[2023-12-25] MEDS: DOCUSATE SODIUM 100 MG CAP PO SCH (20:29)
[2023-12-25] MEDS: lamoTRIgine 25 MG TAB PO SCH (20:30)
[2023-12-25] MEDS: PRAZOSIN HCL 1 MG CAP PO SCH (20:30)
[2023-12-25] MEDS ORDERED: LABETALOL HCL 100 MG TAB PO SCH (21:00)
[2023-12-25] MEDS ORDERED: GABAPENTIN 1200MG ALCOHOL WITHDRAWAL LOAD PO STA (22:09)
[2023-12-25] MEDS ORDERED: LORazepam 3 MG in SYRINGE 1.5 ML IV PRN (22:09)
[2023-12-25] MEDS ORDERED: Ativan IV Alcohol Withdrawal--Active Protocol IV PRN (22:09)
[2023-12-25] MEDS ORDERED: LORazepam 2 MG in SYRINGE 1 ML IV PRN (22:09)
[2023-12-25] MEDS: FAMOTIDINE/PF 20 MG/2 ML VIAL IV ONE (22:10)
[2023-12-25] MEDS: LABETALOL HCL IV 5 MG/ML 20ML IV ONE (22:11)
[2023-12-25] MEDS ORDERED: LABETALOL HCL IV 5 MG/ML 20ML IV PRN (22:39)
[2023-12-25] MEDS: IBUPROFEN 600 MG TAB PO PRN (23:05)
[2023-12-25] MEDS: GABAPENTIN 600 MG TAB PO ONE (23:05)
[2023-12-25] MEDS: LORazepam 1 MG in SYRINGE 0.5 ML IV PRN (23:05)
[2023-12-26] MEDS: LABETALOL HCL 100 MG TAB PO ONE (00:50)
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
[2023-12-26] MEDS: GABAPENTIN 600 MG TAB PO SCH ×2 (05:06→21:08)
[2023-12-26] MEDS: MULTI-VITAMIN INFUSION 10 ML, THIAMINE HCL 100 MG, FOLIC ACID 1 MG in SODIUM CHLORIDE 0... IV ONE (05:07)
[2023-12-26] MEDS: NICOTINE 21 MG/24 HR TDSY TD SCH (05:47)
[2023-12-26 06:16] LABS: Basophils # (auto) 0.11 K/uL (0.00-0.20); Basophils % (auto) 0.8 %; Eosinophils # (auto) 0.27 K/uL (0.00-0.50); Eosinophils % (auto) 2.1 %; Hematocrit (blood only) 34.7 % (37.0-47.0); Hemoglobin 11.1 g/dl (12.0-16.0); Immature Granulocytes # (auto) 0.09 K/uL (0.01-0.20); Immature Granulocytes % (auto) 0.7 %; Lymphocytes # (auto) 3.49 K/uL (1.20-3.40); Lymphocytes % (auto) 26.7 %; Mean Corpuscular Volume 96.9 fL (80.0-100.0); Mean Platelet Volume 10.3 fL (9.4-12.4); Monocytes % (auto) 8.4 %; Neutrophils # (auto) 7.99 K/uL (1.40-6.50); Neutrophils % (auto) 61.3 %; Platelet Count 156 K/uL (130-400); RDW Coefficient of Variation 13.3 % (11.5-14.5); RDW Standard Deviation 48.2 fL (36.4-46.3); Red Blood Count 3.58 M/uL (4.20-5.40); White Blood Count 13.05 K/ul (4.8-10.8)
[2023-12-26 06:38] LABS: BUN Creatinine Ratio 11.8 (10-20); Calcium 8.7 mg/dl (8.6-10.3); Est GFR (African American) 130.4 ml/min; Est GFR (Non-African American) 112.5 ml/min; Potassium 3.5 mmol/L (3.5-5.1)
[2023-12-26] MEDS: NALOXONE HCL 0.4 MG/1 ML VIAL/CARP ONE (07:32)
--- NOTE | 2023-12-26 07:54 | Hospitalist Progress Note ---
Date of Service December 26, 2023 Assessment & Plan (1) Alcohol withdrawal: Plan: 38 yo F w/ chronic hypokalemia, hypertension and hypertensive urgency, history of alcohol hepatitis, fatty liver, bipolar 1 disorder, opioid dependence in remission, tobacco abuse, general anxiety disorder, PTSD, depression, s/p hysterectomy and currently feeling anxious and because of alcohol history we are consulted for alcohol withdrawal. Patient states she drinks 6 shots of whiskey 4 times a week. Currently feeling somewhat anxious. Does not think that she will go through alcohol withdrawal. Denies any chest pain or shortness of breath. No nausea. Has abdominal pain at surgical site. Ambulating in the room okay per Patient. Denies any headache. No fevers. Micturating okay. Blood pressure somewhat running high. Alcoholism States drinks 6 shots of vodka daily 4 times a week Will place on alcohol withdrawal protocol with gabapentin and IV Ativan as needed Banana bag Thiamine and folic acid Close monitor in med/telemetry 12/25 Pt difficult to arouse this AM - discussed with RN pt received dilaudid and iv ativan this AM - will try to minimize iv ativan and not give together w/ opiates. dilaudid also changed to percocet per primary surg. team S/p hysterectomy Management as per CUSTOMER EXPERIENCE ANALYST Bipolar disorder PTSD Generalized anxiety disorder Depression Continue home Lamictal, prazosin and cariprazine History of hypertension Seems not taking any medication Currently also in alcohol withdrawal IV labetalol as needed echo obtained to eval for any LVH. Echo -LV normal in size. Moderate concentric LVH. LV wall motion normal. LV EF 55 to 60%. No significant valvular pathology. Aortic root upper limits of normal in size. In comparison with prior study in March 2022, no change. Will monitor Needs followup. DVT prophylaxis and disposition as per CUSTOMER EXPERIENCE ANALYST Admission and Anticipated Discharge Date Admission Date: December 25, 2023 Subjective Pt seen in follow up of med consult, for etoh withdrawal, s/p hysterectomy Currently sitting up in bed in NAD, reports some post-op abd. pain Earlier this AM difficult to arouse per RN Currently pt is awake alert, and answers appropriately No fever, chills, chest pain, shortness of breath but pt is on suppl. O2 Discussed with RN and with scratch polisher Dr. Appiah Review of Systems Review of Systems: All systems reviewed & are unremarkable except as noted in Subjective Physical Exam Physical Exam: General- obese young F in NAD Head- NC/AT Neck- supple Lungs- clear to auscultation no wheezing or crackles Heart- regular rhythm; no murmur Abdomen- normal bowel sounds, soft, tenderness at surgical site. No distension. Extremities- no pretibial edema, no erythema seen, moves extremities Neuro- alert, oriented no facial palsy; no dysarthria; moves extremities Results & Data Results & Data Vital Signs (Past 12 Hours) Vital Signs Temp Pulse Pulse Pulse Resp BP BP 12/26/23 07:46 93 H 12/26/23 05:03 36.8 C 78 18 162/108 H 12/26/23 01:45 12/26/23 01:15 36.8 C 104 H 18 145/91 H 12/25/23 22:12 94 H 12/25/23 22:00 37.1 C 90 20 167/111 H Pulse Ox O2 Del Method O2 Flow Rate 12/26/23 07:46 95 Room Air 12/26/23 05:03 98 Nasal Cannula 2 12/26/23 01:45 87 L Room Air 12/26/23 01:15 94 Room Air 12/25/23 22:12 12/25/23 22:00 93 Room Air Laboratory Results 12/26/23 12/25/23 12/25/23 Range/Units 05:50 10:03 09:58 WBC 13.05 H (4.8-10.8) K/ul RBC 3.58 L (4.20-5.40) M/uL Hgb 11.1 L (12.0-16.0) g/dl Hct 34.7 L (37.0-47.0) % MCV 96.9 (80.0-100.0) fL MCH 31.0 (25.0-34.0) pg MCHC 32.0 (32.0-36.0) g/dL RDW Std Deviation 48.2 H (36.4-46.3) fL RDW Coeff of Carmen 13.3 (11.5-14.5) % Plt Count 156 (130-400) K/uL MPV 10.3 (9.4-12.4) fL Immature Gran % (Auto) 0.7 % Neut % (Auto) 61.3 % Lymph % (Auto) 26.7 % [place] % (Auto) 8.4 % Eos % (Auto) 2.1 % Baso % (Auto) 0.8 % Neut # (Auto) 7.99 H (1.40-6.50) K/uL Lymph # (Auto) 3.49 H (1.20-3.40) K/uL [place] # (Auto) 1.10 H (0.11-0.59) K/uL Eos # (Auto) 0.27 (0.00-0.50) K/uL Baso # (Auto) 0.11 (0.00-0.20) K/uL Immature Gran # (Auto) 0.09 (0.01-0.20) K/uL Sodium 137 (136-145) mmol/L Potassium 3.5 (3.5-5.1) mmol/L Chloride 103 (98-107) mmol/L Carbon Dioxide 23 (21-32) mmol/L Anion Gap 11 (3-11) BUN 8 (6-23) mg/dl Creatinine 0.68 (0.6-1.2) mg/dl Est Cr Clr Drug Dosing 128.0 ml/min Est GFR ( Amer) 130.4 ml/min Est GFR (Non-Af Amer) 112.5 ml/min BUN/Creatinine Ratio 11.8 (10-20) Glucose 102 H (70-99(Fasting)) mg/dl Calcium 8.7 (8.6-10.3) mg/dl Magnesium 1.8 (1.7-2.4) mg/dl POC Ur Test NEG (NEG) Blood Type A Negative Antibody Screen NEGATIVE Medications Administered Current Inpatient Medications Cariprazine (Cariprazine Hcl 1.5 Mg Cap) 1.5 mg PO DAILY VANIA Stop: 01/25/24 08:59 Docusate Sodium (Docusate Sodium 100 Mg Cap) 100 mg PO BID VANIA Stop: 01/24/24 20:59 Last Admin: 12/25/23 20:29 Dose: 100 mg Gabapentin (Gabapentin 600 Mg Tab) 600 mg PO Q6H VANIA Stop: 12/26/23 12:01 Last Admin: 12/26/23 05:06 Dose: 600 mg Gabapentin (Gabapentin 600 Mg Tab) 600 mg PO Q8H VANIA Stop: 12/27/23 14:01 Gabapentin (Gabapentin 600 Mg Tab) 600 mg PO Q12H VANIA Stop: 12/28/23 12:01 Gabapentin (Gabapentin 600 Mg Tab) 600 mg PO Q24H [facility] Stop: 12/29/23 12:01 Hydromorphone HCl (Hydromorphone Hcl 4 Mg Tab) 4 mg PO Q4 PRN PRN Reason: Pain Stop: 01/08/24 17:35 Last Admin: 12/26/23 05:06 Dose: 4 mg Promethazine HCl 12.5 mg/ (Sodium Chloride) 50.5 mls @ 202 mls/hr IV Q6H PRN PRN Reason: Nausea And Vomiting Stop: 01/24/24 14:18 Lactated Ringer's (Lr) 1,000 mls @ 125 mls/hr IV .Q8H [facility] Stop: 01/24/24 14:29 Last Infusion: 12/26/23 07:39 Dose: 125 mls/hr Lorazepam 1 mg/ Syringe 1 mls @ 2 mls/min IV UD PRN; Protocol PRN Reason: EtOH Withdrawal AWSS Score 6,7 Stop: 01/24/24 22:08 Last Admin: 12/26/23 05:46 Dose: 2 mls/min Lorazepam 2 mg/ Syringe 2 mls @ 2 mls/min IV UD PRN; Protocol PRN Reason: EtOH Withdrawal AWSS Score 8,9 Stop: 01/24/24 22:08 Lorazepam 3 mg/ Syringe 3 mls @ 2 mls/min IV ONCE PRN; Protocol PRN Reason: EtOH Withdrawal AWSS Score 10+ Folic Acid 1 mg/ Syringe 10 mls @ 5 mls/min IV QAM [facility] Stop: 01/26/24 08:59 Ibuprofen (Ibuprofen 600 Mg Tab) 600 mg PO Q4H PRN PRN Reason: pain, RODRÍGUEZ, cramping or fever Stop: 01/24/24 14:18 Last Admin: 12/26/23 05:06 Dose: 600 mg Labetalol HCl (Labetalol Hcl Iv 5 Mg/Ml 20ml) 10 mg IV Q4H PRN PRN Reason: Hypertension Stop: 01/24/24 22:38 Lamotrigine (Lamotrigine 25 Mg Tab) 50 mg PO BID [facility]; Protocol Stop: 01/24/24 20:59 Last Admin: 12/25/23 20:30 Dose: 50 mg Lorazepam (Lorazepam 1 Mg Tab) 1 mg PO DAILY PRN PRN Reason: Anxiety Stop: 01/24/24 16:35 Last Admin: 12/25/23 19:02 Dose: 1 mg Magnesium Hydroxide (Magnesium Hydroxide Susp 30 Ml Udc) 30 ml PO Q6H PRN PRN Reason: Constipation Stop: 01/24/24 14:18 Miscellaneous (Remove Nicoderm Patch) 1 each N/A DAILY@0859 [facility] Stop: 01/26/24 08:58 Multivitamins/Minerals (Cerovite Adv Formula Tab) 1 tab PO QAM [facility] Stop: 01/25/24 08:59 Nicotine (Nicotine 21 Mg/24 Hr Tdsy) 1 patch TD DAILY [facility] Stop: 01/25/24 04:59 Last Admin: 12/26/23 05:47 Dose: 1 patch Ondansetron HCl (Ondansetron Inj 2 Mg/Ml 2 Ml Vial) 4 mg IV Q6H PRN PRN Reason: Nausea And Vomiting Stop: 01/24/24 14:18 Oxycodone/Acetaminophen (Oxycodone/Acetaminophen 5mg/325mg Tab) 1 tab PO Q4H PRN PRN Reason: Pain Scale 1,2,3,4,5 Stop: 01/08/24 14:18 Last Admin: 12/26/23 01:53 Dose: 1 tab Prazosin HCl (Prazosin Hcl 1 Mg Cap) 1 mg PO HS [facility] Stop: 01/24/24 20:59 Last Admin: 12/25/23 20:30 Dose: 1 mg Simethicone (Simethicone 80 Mg Chew) 80 mg PO TID PRN PRN Reason: Gas Stop: 01/24/24 14:18 Thiamine HCl (Thiamine Hcl 100 Mg Tab) 100 mg PO QAM [facility] [place] Stop: 01/25/24 08:59 Zolpidem Tartrate (Zolpidem Tartrate 5 Mg Tab) 5 mg PO HS PRN PRN Reason: Sleep Stop: 01/24/24 14:18 (1) Alcohol withdrawal Complication of substance-induced condition: with unspecified complication Qualified Code(s): F10.939 - Alcohol use, unspecified with withdrawal, unspecified
[2023-12-26] MEDS ORDERED: LABETALOL HCL 100 MG TAB PO SCH (09:00)
[2023-12-26] MEDS: POLYETHYLENE (MIRALAX) 17 GM PACK PO SCH (09:04)
[2023-12-26] MEDS: CARIPRAZINE HCL 1.5 MG CAP PO SCH (09:04)
[2023-12-26] MEDS: THIAMINE HCL 100 MG TAB PO SCH (09:05)
[2023-12-26] MEDS: POTASSIUM CHLORIDE CRTAB 20 MEQ TABCR PO STA (09:05)
[2023-12-26] MEDS: CEROVITE ADV FORMULA TAB PO SCH (09:05)
[2023-12-26] MEDS: MAGNESIUM OXIDE 400 MG TAB PO SCH (09:05)
--- NOTE | 2023-12-26 10:06 | Gynecologic Progress Note ---
Date of Service December 26, 2023 Assessment & Plan (1) Alcohol withdrawal: Plan: Pt on tele floor On alcohol protocol Hospitalist on consult pt on gabapentin taper and Ativan- managed by hospitalist (2) Postop check: Plan: Pt doing well Day#1 labs reviewed Pt ranks pain as 6-7/10 Passing gas. Trocar site hematoma - sable POD #1abs reviewed Plan Continue with Percocet Dilaudid 1mg PRN if pain is not relieved with Percocet Admission and Anticipated Discharge Date Admission Date: December 25, 2023 Results & Data Vital Signs (Past 12 Hours) Vital Signs Temp Pulse Pulse Pulse Resp BP BP 12/26/23 08:13 36.6 C 80 20 144/93 H 12/26/23 08:00 12/26/23 07:46 93 H 12/26/23 05:03 36.8 C 78 18 162/108 H 12/26/23 01:45 12/26/23 01:15 36.8 C 104 H 18 145/91 H 12/25/23 22:12 94 H Pulse Ox O2 Del Method O2 Flow Rate 12/26/23 08:13 96 Nasal Cannula 2.5 12/26/23 08:00 Room Air 12/26/23 07:46 95 Room Air 12/26/23 05:03 98 Nasal Cannula 2 12/26/23 01:45 87 L Room Air 12/26/23 01:15 94 Room Air 12/25/23 22:12 (1) Alcohol withdrawal Complication of substance-induced condition: with unspecified complication Qualified Code(s): F10.939 - Alcohol use, unspecified with withdrawal, unspecified
[2023-12-26] MEDS: HYDROmorphone HCL 2 MG TAB PO PRN (10:46)
[2023-12-26 17:03] LABS: Basophils # (auto) 0.12 K/uL (0.00-0.20); Eosinophils # (auto) 0.42 K/uL (0.00-0.50); Eosinophils % (auto) 3.6 %; Hematocrit (blood only) 35.9 % (37.0-47.0); Hemoglobin 11.8 g/dl (12.0-16.0); Immature Granulocytes # (auto) 0.08 K/uL (0.01-0.20); Immature Granulocytes % (auto) 0.7 %; Lymphocytes # (auto) 3.29 K/uL (1.20-3.40); Lymphocytes % (auto) 27.9 %; Mean Corpuscular Hemoglobin 31.6 pg (25.0-34.0); Mean Corpuscular Hgb Conc 32.9 g/dL (32.0-36.0); Mean Corpuscular Volume 96.2 fL (80.0-100.0); Mean Platelet Volume 10.3 fL (9.4-12.4); Monocytes # (auto) 0.99 K/uL (0.11-0.59); Monocytes % (auto) 8.4 %; Neutrophils % (auto) 58.4 %; Platelet Count 163 K/uL (130-400); RDW Coefficient of Variation 13.5 % (11.5-14.5); RDW Standard Deviation 47.6 fL (36.4-46.3); Red Blood Count 3.73 M/uL (4.20-5.40)
[2023-12-26 17:15] LABS: Albumin Globulin Ratio 1.2 (0.9-2); Albumin Level 3.8 gm/dl (3.4-5.0); BUN Creatinine Ratio 11.3 (10-20); Bilirubin,Total 0.5 mg/dl (0.2-1.0); Calcium 8.8 mg/dl (8.6-10.3); Creatinine Clr Calc Pharmacy 140.4 ml/min; Est GFR (African American) 134.5 ml/min; Globulin 3.2 gm/dl (2.5-4.0); Potassium 4.2 mmol/L (3.5-5.1)
[2023-12-26] MEDS: HYDROmorphone INJ 2 MG/ML SYR/VIAL IV PRN (20:26)
[2023-12-26] MEDS: OPTIRAY 320 100ml IV ONE (20:42)
--- NOTE | 2023-12-26 21:04 | Gynecologic Progress Note ---
Date of Service December 26, 2023 Assessment & Plan Admission and Anticipated Discharge Date Admission Date: December 25, 2023 Subjective I was called by nursing team that she has persistent pelvic pain since surgery, pain meds are not covering her enough. They also noted increased area of bruising on incision sites. She has been eating and drinking with no N&V and has been passing gas, had BM X2, soft Has been urinating without problems. She denies CP/SOB/ N&V/ dizziness or light headedness Her VSS , afebrile H&H has been stable. Vital Signs Height Weight Body Mass Index Blood Pressure Blood Pressure Position Temperature Temperature Source 5 ft 5 in 91.8 kg 31.2 163/116 H Lying 36.7 C Oral 12/25/23 10:45 12/26/23 06:00 12/25/23 09:55 12/26/23 19:21 12/26/23 19:21 12/26/23 19:21 12/26/23 19:21 Pulse Rate Respiratory Rate Pulse Oximetry Oxygen Flow Rate 85 18 98 2 12/26/23 19:21 12/26/23 19:21 12/26/23 19:21 12/26/23 19:21 12/26/23 12/26/23 Range/Units 16:45 05:50 WBC 11.80 H 13.05 H (4.8-10.8) K/ul RBC 3.73 L 3.58 L (4.20-5.40) M/uL Hgb 11.8 L 11.1 L (12.0-16.0) g/dl Hct 35.9 L 34.7 L (37.0-47.0) % MCV 96.2 96.9 (80.0-100.0) fL MCH 31.6 31.0 (25.0-34.0) pg MCHC 32.9 32.0 (32.0-36.0) g/dL RDW Std Deviation 47.6 H 48.2 H (36.4-46.3) fL RDW Coeff of Carmen 13.5 13.3 (11.5-14.5) % Plt Count 163 156 (130-400) K/uL MPV 10.3 10.3 (9.4-12.4) fL Immature Gran % (Auto) 0.7 0.7 % Neut % (Auto) 58.4 61.3 % Lymph % (Auto) 27.9 26.7 % [place] % (Auto) 8.4 8.4 % Eos % (Auto) 3.6 2.1 % Baso % (Auto) 1.0 0.8 % Neut # (Auto) 6.90 H 7.99 H (1.40-6.50) K/uL Lymph # (Auto) 3.29 3.49 H (1.20-3.40) K/uL [place] # (Auto) 0.99 H 1.10 H (0.11-0.59) K/uL Eos # (Auto) 0.42 0.27 (0.00-0.50) K/uL Baso # (Auto) 0.12 0.11 (0.00-0.20) K/uL Immature Gran # (Auto) 0.08 0.09 (0.01-0.20) K/uL Sodium 136 137 (136-145) mmol/L Potassium 4.2 3.5 (3.5-5.1) mmol/L Chloride 105 103 (98-107) mmol/L Carbon Dioxide 25 23 (21-32) mmol/L Anion Gap 6 11 (3-11) BUN 7 8 (6-23) mg/dl Creatinine 0.62 0.68 (0.6-1.2) mg/dl Est Cr Clr Drug Dosing 140.4 128.0 ml/min Est GFR ( Amer) 134.5 130.4 ml/min Est GFR (Non-Af Amer) 116.0 112.5 ml/min BUN/Creatinine Ratio 11.3 11.8 (10-20) Glucose 91 102 H (70-99(Fasting)) mg/dl Calcium 8.8 8.7 (8.6-10.3) mg/dl Magnesium 1.8 (1.7-2.4) mg/dl Total Bilirubin 0.5 (0.2-1.0) mg/dl AST 19 (13-39) U/L ALT 10 (7-52) U/L Alkaline Phosphatase 203 H (34-104) U/L Total Protein 7.0 (6.0-8.3) gm/dl Albumin 3.8 (3.4-5.0) gm/dl Globulin 3.2 (2.5-4.0) gm/dl Albumin/Globulin Ratio 1.2 (0.9-2) PE: she is uncomfortable with pain but able to talk to me. Her son came in with pool and she looked better Abd: soft, appropriately tender, distended like this morning when I have rounded with Dr Appiah, bruising areas around incisions are larger but scrum master in color than this morning, BS + No VB Ext NT, no edema AP: 38 yo s/p TLH, Extensive TERRY yesterday afternoon for ongoing pelvic pain, dysmenorrhea, heavy menstrual bleeding, by Dr Appiah, VSS Afebrile Bowel functions well CBC stable this afternoon, normal creatinine AST, ALT Increased bruising at trochar sites Plan to change pain meds, add iv Diluadid and obtain new setof labs, CT of abdomen pelvis and reevaluate D/W Dr Appiah Results & Data Vital Signs (Past 12 Hours) Vital Signs Temp Pulse Pulse Pulse Resp BP BP 12/26/23 19:21 36.7 C 85 18 163/116 H 12/26/23 15:39 36.9 C 86 16 149/79 H 12/26/23 14:02 92 H 12/26/23 12:26 36.5 C 88 20 162/115 H 12/26/23 12:15 155/98 H Pulse Ox O2 Del Method O2 Flow Rate 12/26/23 19:21 98 Nasal Cannula 2 12/26/23 15:39 94 Nasal Cannula 2 12/26/23 14:02 12/26/23 12:26 94 Nasal Cannula 2.5 12/26/23 12:15
[2023-12-26] MEDS: LORazepam 1 MG TAB PO PRN (21:33)
[2023-12-26 22:04] LABS: Fibrinogen 303 mg/dl (184-400); INR 1.1 (0.9-1.1); Partial Thromboplastin Time 28 Seconds (21-31); Prothrombin Time 11.6 Seconds (9.0-12.0)
[2023-12-26 22:06] LABS: Basophils # (auto) 0.12 K/uL (0.00-0.20); Basophils % (auto) 1.1 %; Eosinophils # (auto) 0.46 K/uL (0.00-0.50); Eosinophils % (auto) 4.1 %; Hematocrit (blood only) 35.1 % (37.0-47.0); Hemoglobin 11.4 g/dl (12.0-16.0); Immature Granulocytes # (auto) 0.07 K/uL (0.01-0.20); Immature Granulocytes % (auto) 0.6 %; Lymphocytes # (auto) 3.16 K/uL (1.20-3.40); Lymphocytes % (auto) 28.3 %; Mean Corpuscular Hemoglobin 31.3 pg (25.0-34.0); Mean Corpuscular Hgb Conc 32.5 g/dL (32.0-36.0); Mean Corpuscular Volume 96.4 fL (80.0-100.0); Mean Platelet Volume 10.6 fL (9.4-12.4); Monocytes # (auto) 0.92 K/uL (0.11-0.59); Monocytes % (auto) 8.3 %; Neutrophils # (auto) 6.42 K/uL (1.40-6.50); Neutrophils % (auto) 57.6 %; Platelet Count 165 K/uL (130-400); RDW Coefficient of Variation 13.4 % (11.5-14.5); Red Blood Count 3.64 M/uL (4.20-5.40); White Blood Count 11.15 K/ul (4.8-10.8)
--- NOTE | 2023-12-26 23:07 | CT Scan Report ---
Exam(s): CT ABDOMEN + PELVIS With Contrast IV Amt: 93ml EXAM: CT Abdomen and Pelvis With Intravenous Contrast CLINICAL HISTORY: Reason for exam: abdominal pain and distention after hysterectomy. TECHNIQUE: Axial computed tomography images of the abdomen and pelvis with intravenous contrast. CTDI is 26 mGy and DLP is 1458 mGy-cm. Automated exposure control was utilized for the study. A dose lowering technique was utilized adhering to the principles of ALARA. CONTRAST: Patient received 93ml of IV contrast COMPARISON: CT 05/09/2023 FINDINGS: ABDOMEN: Liver: Liver is massively enlarged measuring 31 cm. Gallbladder and bile ducts: Cholecystectomy. Pancreas: Unremarkable. Spleen: Unremarkable. Adrenals: Unremarkable. Kidneys and ureters: Unremarkable. No obstructing stones. No hydronephrosis. Stomach and bowel: Unremarkable. PELVIS: Appendix: No findings to suggest acute appendicitis. Bladder: Unremarkable. Reproductive: Postsurgical changes from a recent hysterectomy. A few residual foci of postsurgical gas. No intraperitoneal hemorrhage or fluid collection. ABDOMEN and PELVIS: Intraperitoneal space: Unremarkable. No free air. No significant fluid collection. Bones/joints: No acute fracture. Soft tissues: Subcutaneous soft tissue edema within the ventral subcutaneous fat. No abscess. Small hematoma within the ventral abdominal wall measuring 3 x 2 cm. Vasculature: Unremarkable. Lymph nodes: Unremarkable. IMPRESSION: 1. Postsurgical changes from a recent hysterectomy. A few residual foci of postsurgical gas. No intrapelvic hemorrhage or fluid collection. 2. Subcutaneous soft tissue edema within the ventral subcutaneous fat. No abscess. Small hematoma within the ventral abdominal wall measuring 3 x 2 cm. 3. Liver is massively enlarged measuring 31 cm. Electronically signed by: Evans Jovel MD 12/26/23 23:06 PM
[2023-12-27] MEDS: ACETAMINOPHEN 1,000 MG/100 ML VIAL IV PRN (05:13)
[2023-12-27 06:05] LABS: Hematocrit (blood only) 35.8 % (37.0-47.0); Hemoglobin 11.4 g/dl (12.0-16.0); Mean Corpuscular Hemoglobin 30.6 pg (25.0-34.0); Mean Corpuscular Hgb Conc 31.8 g/dL (32.0-36.0); Mean Corpuscular Volume 96.2 fL (80.0-100.0); Mean Platelet Volume 10.2 fL (9.4-12.4); Platelet Count 154 K/uL (130-400); RDW Coefficient of Variation 13.2 % (11.5-14.5); Red Blood Count 3.72 M/uL (4.20-5.40); White Blood Count 10.34 K/ul (4.8-10.8)
[2023-12-27 06:23] LABS: Magnesium 1.8 mg/dl (1.7-2.4); Phosphorus 2.7 mg/dl (2.5-4.9)
[2023-12-27 06:25] LABS: BUN Creatinine Ratio 10.1 (10-20); Calcium 8.8 mg/dl (8.6-10.3); Creatinine Clr Calc Pharmacy 127.7 ml/min; Est GFR (African American) 129.8 ml/min; Potassium 4.4 mmol/L (3.5-5.1)
[2023-12-27] MEDS: FOLIC ACID 1 MG in SYRINGE 9.8 ML IV SCH (07:14)
--- NOTE | 2023-12-27 07:27 | Hospitalist Progress Note ---
Date of Service December 27, 2023 Assessment & Plan (1) Alcohol withdrawal: Plan: 38 yo F w/ chronic hypokalemia, hypertension and hypertensive urgency, history of alcohol hepatitis, fatty liver, bipolar 1 disorder, opioid dependence in remission, tobacco abuse, general anxiety disorder, PTSD, depression, s/p hysterectomy and currently feeling anxious and because of alcohol history we are consulted for alcohol withdrawal. Patient states she drinks 6 shots of whiskey 4 times a week. Currently feeling somewhat anxious. Does not think that she will go through alcohol withdrawal. Denies any chest pain or shortness of breath. No nausea. Has abdominal pain at surgical site. Ambulating in the room okay per Patient. Denies any headache. No fevers. Micturating okay. Blood pressure somewhat running high. Alcoholism States drinks 6 shots of vodka daily 4 times a week Will place on alcohol withdrawal protocol with gabapentin and IV Ativan as needed Banana bag Thiamine and folic acid Close monitor in med/telemetry 12/25 Pt difficult to arouse this AM - discussed with RN pt received dilaudid and iv ativan this AM - will try to minimize iv ativan and not give together w/ opiates. dilaudid also changed to percocet per primary surg. team S/p hysterectomy Management as per MEDICAL AFFAIRS LEADER Bipolar disorder PTSD Generalized anxiety disorder Depression Continue home Lamictal, prazosin and cariprazine History of hypertension Seems not taking any medication Currently also in alcohol withdrawal IV labetalol as needed echo obtained to eval for any LVH. Echo -LV normal in size. Moderate concentric LVH. LV wall motion normal. LV EF 55 to 60%. No significant valvular pathology. Aortic root upper limits of normal in size. In comparison with prior study in March 2022, no change. Will monitor Needs followup. DVT prophylaxis and disposition as per MEDICAL AFFAIRS LEADER Admission and Anticipated Discharge Date Admission Date: December 25, 2023 Subjective Pt seen in follow up of med consult, for etoh withdrawal, s/p hysterectomy Currently sitting up in bed in [facility], reports some post-op abd. pain Earlier this AM difficult to arouse per RN Currently pt is awake alert, and answers appropriately No fever, chills, chest pain, shortness of breath but pt is on suppl. O2 Discussed with RN and with molded rubber goods cutter Dr. Appiah Physical Exam Physical Exam: General- obese young F in NAD Head- NC/AT Neck- supple Lungs- clear to auscultation no wheezing or crackles Heart- regular rhythm; no murmur Abdomen- normal bowel sounds, soft, tenderness at surgical site. No distension. Extremities- no pretibial edema, no erythema seen, moves extremities Neuro- alert, oriented no facial palsy; no dysarthria; moves extremities Results & Data Results & Data Vital Signs (Past 12 Hours) Vital Signs Temp Pulse Pulse Pulse Resp BP Pulse Ox 12/27/23 07:11 36.6 C 82 18 157/108 H 99 12/27/23 03:00 36.8 C 78 18 144/87 H 94 12/26/23 23:15 36.7 C 77 18 148/91 H 93 12/26/23 22:52 119 H O2 Del Method 12/27/23 07:11 Room Air 12/27/23 03:00 Room Air 12/26/23 23:15 Room Air 12/26/23 22:52 Laboratory Results 12/27/23 12/26/23 12/26/23 Range/Units 05:53 21:20 16:45 WBC 10.34 11.15 H 11.80 H (4.8-10.8) K/ul RBC 3.72 L 3.64 L 3.73 L (4.20-5.40) M/uL Hgb 11.4 L 11.4 L 11.8 L (12.0-16.0) g/dl Hct 35.8 L 35.1 L 35.9 L (37.0-47.0) % MCV 96.2 96.4 96.2 (80.0-100.0) fL MCH 30.6 31.3 31.6 (25.0-34.0) pg MCHC 31.8 L 32.5 32.9 (32.0-36.0) g/dL RDW Std Deviation 47.0 H 48.0 H 47.6 H (36.4-46.3) fL RDW Coeff of Carmen 13.2 13.4 13.5 (11.5-14.5) % Plt Count 154 165 163 (130-400) K/uL MPV 10.2 10.6 10.3 (9.4-12.4) fL Immature Gran % (Auto) 0.6 0.7 % Neut % (Auto) 57.6 58.4 % Lymph % (Auto) 28.3 27.9 % [place] % (Auto) 8.3 8.4 % Eos % (Auto) 4.1 3.6 % Baso % (Auto) 1.1 1.0 % Neut # (Auto) 6.42 6.90 H (1.40-6.50) K/uL Lymph # (Auto) 3.16 3.29 (1.20-3.40) K/uL [place] # (Auto) 0.92 H 0.99 H (0.11-0.59) K/uL Eos # (Auto) 0.46 0.42 (0.00-0.50) K/uL Baso # (Auto) 0.12 0.12 (0.00-0.20) K/uL Immature Gran # (Auto) 0.07 0.08 (0.01-0.20) K/uL PT 11.6 (9.0-12.0) Seconds INR 1.1 (0.9-1.1) APTT 28 (21-31) Seconds PTT Ratio 1.0 Fibrinogen 303 (184-400) mg/dl Sodium 137 136 (136-145) mmol/L Potassium 4.4 4.2 (3.5-5.1) mmol/L Chloride 104 105 (98-107) mmol/L Carbon Dioxide 26 25 (21-32) mmol/L Anion Gap 7 6 (3-11) BUN 7 7 (6-23) mg/dl Creatinine 0.69 0.62 (0.6-1.2) mg/dl Est Cr Clr Drug Dosing 127.7 140.4 ml/min Est GFR ( Amer) 129.8 134.5 ml/min Est GFR (Non-Af Amer) 112.0 116.0 ml/min BUN/Creatinine Ratio 10.1 11.3 (10-20) Glucose 109 H 91 (70-99(Fasting)) mg/dl Calcium 8.8 8.8 (8.6-10.3) mg/dl Phosphorus 2.7 (2.5-4.9) mg/dl Magnesium 1.8 (1.7-2.4) mg/dl Total Bilirubin 0.5 (0.2-1.0) mg/dl AST 19 (13-39) U/L ALT 10 (7-52) U/L Alkaline Phosphatase 203 H (34-104) U/L Total Protein 7.0 (6.0-8.3) gm/dl Albumin 3.8 (3.4-5.0) gm/dl Globulin 3.2 (2.5-4.0) gm/dl Albumin/Globulin Ratio 1.2 (0.9-2) Medications Administered Current Inpatient Medications Cariprazine (Cariprazine Hcl 1.5 Mg Cap) 1.5 mg PO DAILY [facility] Stop: 01/25/24 08:59 Last Admin: 12/27/23 07:15 Dose: 1.5 mg Docusate Sodium (Docusate Sodium 100 Mg Cap) 100 mg PO BID [facility] Stop: 01/24/24 20:59 Last Admin: 12/27/23 07:13 Dose: 100 mg Gabapentin (Gabapentin 600 Mg Tab) 600 mg PO Q8H [facility] Stop: 12/27/23 14:01 Last Admin: 12/27/23 05:14 Dose: 600 mg Gabapentin (Gabapentin 600 Mg Tab) 600 mg PO Q12H [facility] Stop: 12/28/23 12:01 Gabapentin (Gabapentin 600 Mg Tab) 600 mg PO Q24H [facility] Stop: 12/29/23 12:01 Hydromorphone HCl (Hydromorphone Hcl 2 Mg Tab) 1 mg PO Q4 PRN PRN Reason: Pain (6,7,8,9,10) Stop: 01/09/24 09:58 Last Admin: 12/27/23 06:21 Dose: 1 mg Hydromorphone HCl (Hydromorphone Inj 2 Mg/Ml Syr/Vial) 2 mg IV Q4H PRN PRN Reason: Pain Stop: 01/09/24 20:06 Last Admin: 12/27/23 01:27 Dose: 2 mg Promethazine HCl 12.5 mg/ (Sodium Chloride) 50.5 mls @ 202 mls/hr IV Q6H PRN PRN Reason: Nausea And Vomiting Stop: 01/24/24 14:18 Lactated Ringer's (Lr) 1,000 mls @ 125 mls/hr IV .Q8H [facility] Stop: 01/24/24 14:29 Last Admin: 12/27/23 00:47 Dose: 125 mls/hr Lorazepam 1 mg/ Syringe 1 mls @ 2 mls/min IV UD PRN; Protocol PRN Reason: EtOH Withdrawal AWSS Score 6,7 Stop: 01/24/24 22:08 Last Admin: 12/26/23 05:46 Dose: 2 mls/min Lorazepam 2 mg/ Syringe 2 mls @ 2 mls/min IV UD PRN; Protocol PRN Reason: EtOH Withdrawal AWSS Score 8,9 Stop: 01/24/24 22:08 Lorazepam 3 mg/ Syringe 3 mls @ 2 mls/min IV ONCE PRN; Protocol PRN Reason: EtOH Withdrawal AWSS Score 10+ Folic Acid 1 mg/ Syringe 10 mls @ 5 mls/min IV QAM [facility] Stop: 01/26/24 08:59 Last Admin: 12/27/23 07:14 Dose: 5 mls/min Acetaminophen (Ofirmev) 1,000 mg in 100 mls @ 400 mls/hr IV Q8H PRN PRN Reason: Pain Stop: 12/29/23 20:06 Last Infusion: 12/27/23 05:36 Dose: Infused Ibuprofen (Ibuprofen 600 Mg Tab) 600 mg PO Q4H PRN PRN Reason: pain, RODRÍGUEZ, cramping or fever Stop: 01/24/24 14:18 Last Admin: 12/26/23 21:57 Dose: 600 mg Labetalol HCl (Labetalol Hcl Iv 5 Mg/Ml 20ml) 10 mg IV Q4H PRN PRN Reason: Hypertension Stop: 01/24/24 22:38 Lamotrigine (Lamotrigine 25 Mg Tab) 50 mg PO BID [facility]; Protocol Stop: 01/24/24 20:59 Last Admin: 12/27/23 07:15 Dose: 50 mg Lorazepam (Lorazepam 1 Mg Tab) 1 mg PO BID PRN PRN Reason: Anxiety Stop: 01/24/24 16:35 Last Admin: 12/26/23 21:33 Dose: 1 mg Magnesium Hydroxide (Magnesium Hydroxide Susp 30 Ml Udc) 30 ml PO Q6H PRN PRN Reason: Constipation Stop: 01/24/24 14:18 Magnesium Oxide (Magnesium Oxide 400 Mg Tab) 400 mg PO BID [facility] Stop: 01/25/24 08:59 Last Admin: 12/27/23 07:14 Dose: 400 mg Miscellaneous (Remove Nicoderm Patch) 1 each N/A DAILY@0859 [facility] Stop: 01/26/24 08:58 Last Admin: 12/27/23 07:18 Dose: 1 each Multivitamins/Minerals (Cerovite Adv Formula Tab) 1 tab PO QAM [facility] Stop: 01/25/24 08:59 Last Admin: 12/27/23 07:15 Dose: 1 tab Nicotine (Nicotine 21 Mg/24 Hr Tdsy) 1 patch TD DAILY [facility] Stop: 01/25/24 04:59 Last Admin: 12/27/23 07:16 Dose: Not Given Ondansetron HCl (Ondansetron Inj 2 Mg/Ml 2 Ml Vial) 4 mg IV Q6H PRN PRN Reason: Nausea And Vomiting Stop: 01/24/24 14:18 Oxycodone/Acetaminophen (Oxycodone/Acetaminophen 5mg/325mg Tab) 1 tab PO Q4H PRN PRN Reason: Pain Scale 1,2,3,4,5 Stop: 01/08/24 14:18 Last Admin: 12/27/23 07:13 Dose: 1 tab Polyethylene Glycol (Polyethylene (Miralax) 17 Gm Pack) 17 gm PO DAILY [facility] Stop: 01/25/24 08:59 Last Admin: 12/27/23 07:14 Dose: 17 gm Prazosin HCl (Prazosin Hcl 1 Mg Cap) 1 mg PO HS [facility] Stop: 01/24/24 20:59 Last Admin: 12/26/23 21:08 Dose: 1 mg Simethicone (Simethicone 80 Mg Chew) 80 mg PO TID PRN PRN Reason: Gas Stop: 01/24/24 14:18 Thiamine HCl (Thiamine Hcl 100 Mg Tab) 100 mg PO QAM [facility] Stop: 01/25/24 08:59 Last Admin: 12/27/23 07:14 Dose: 100 mg Zolpidem Tartrate (Zolpidem Tartrate 5 Mg Tab) 5 mg PO HS PRN PRN Reason: Sleep Stop: 01/24/24 14:18 (1) Alcohol withdrawal Complication of substance-induced condition: with unspecified complication Qualified Code(s): F10.939 - Alcohol use, unspecified with withdrawal, unsp ecified
[2023-12-27] MEDS ORDERED: PERCOCET 5/325MG HOMEPACK PO ONE (11:34)
--- NOTE | 2023-12-27 11:37 | Gynecologic Progress Note ---
Date of Service December 27, 2023 Assessment & Plan Admission and Anticipated Discharge Date Admission Date: December 25, 2023 Subjective Patient is seen and examined. She feels better and wants to be discharged. Pain is under control with oral meds. Ambulating without dizziness Voiding without difficulty Tolerating regular diet with out N&V Flatus + BM + Bleeding is minimal No fever/ chills/ CP/ SOB/ N&V/ Leg pain Vital Signs Temp Pulse Pulse Pulse Resp BP BP 12/27/23 08:07 36.8 C 85 16 164/115 H 12/27/23 07:30 12/27/23 07:11 36.6 C 82 18 157/108 H 12/27/23 07:00 85 12/27/23 03:00 36.8 C 78 18 144/87 H 12/26/23 23:15 36.7 C 77 18 148/91 H 12/26/23 22:52 119 H 12/26/23 19:21 36.7 C 85 18 163/116 H 12/26/23 15:39 36.9 C 86 16 149/79 H 12/26/23 14:02 92 H 12/26/23 12:26 36.5 C 88 20 162/115 H 12/26/23 12:15 155/98 H Pulse Ox O2 Del Method O2 Flow Rate 12/27/23 08:07 96 Room Air 12/27/23 07:30 Room Air 12/27/23 07:11 99 Room Air 12/27/23 07:00 12/27/23 03:00 94 Room Air 12/26/23 23:15 93 Room Air 12/26/23 22:52 12/26/23 19:21 98 Nasal Cannula 2 12/26/23 15:39 94 Nasal Cannula 2 12/26/23 14:02 12/26/23 12:26 94 Nasal Cannula 2.5 12/26/23 12:15 Intake and Output 12/26/23 12/27/23 12/27/23 22:59 06:59 14:59 Intake Total 881.25 / 3957.867 1540 / 3957.867 1214.583 / 1214.583 Balance 881.25 / 3957.867 1540 / 3957.867 1214.583 / 1214.583 Intake: IV 881.25 / 3177.867 1100 / 3177.867 1214.583 / 1214.583 Acetaminophen 1,000 mg In 100 100 / 100 ml @ 400 mls/hr IV Q8H PRN Rx#: [id number] Lactated Ringer's 1,000 ml @ 881.25 / 2066.667 1000 / 2066.667 1214.583 / 1214.583 125 mls/hr IV .Q8H [facility]ANIA Rx#: [id number] Oral 440 / 780 Other: Weight 93.9 kg Weight Measurement Method Built in [facility] Lab Results 12/25/23 12/25/23 12/26/23 Range/Units 09:58 10:03 05:50 WBC 13.05 H (4.8-10.8) K/ul RBC 3.58 L (4.20-5.40) M/uL Hgb 11.1 L (12.0-16.0) g/dl Hct 34.7 L (37.0-47.0) % MCV 96.9 (80.0-100.0) fL MCH 31.0 (25.0-34.0) pg MCHC 32.0 (32.0-36.0) g/dL RDW Std Deviation 48.2 H (36.4-46.3) fL RDW Coeff of Carmen 13.3 (11.5-14.5) % Plt Count 156 (130-400) K/uL MPV 10.3 (9.4-12.4) fL Immature Gran % (Auto) 0.7 % Neut % (Auto) 61.3 % Lymph % (Auto) 26.7 % [place] % (Auto) 8.4 % Eos % (Auto) 2.1 % Baso % (Auto) 0.8 % Neut # (Auto) 7.99 H (1.40-6.50) K/uL Lymph # (Auto) 3.49 H (1.20-3.40) K/uL [place] # (Auto) 1.10 H (0.11-0.59) K/uL Eos # (Auto) 0.27 (0.00-0.50) K/uL Baso # (Auto) 0.11 (0.00-0.20) K/uL Immature Gran # (Auto) 0.09 (0.01-0.20) K/uL PT (9.0-12.0) Seconds INR (0.9-1.1) APTT (21-31) Seconds PTT Ratio Fibrinogen (184-400) mg/dl Sodium 137 (136-145) mmol/L Potassium 3.5 (3.5-5.1) mmol/L Chloride 103 (98-107) mmol/L Carbon Dioxide 23 (21-32) mmol/L Anion Gap 11 (3-11) BUN 8 (6-23) mg/dl Creatinine 0.68 (0.6-1.2) mg/dl Est Cr Clr Drug Dosing 128.0 ml/min Est GFR ( Amer) 130.4 ml/min Est GFR (Non-Af Amer) 112.5 ml/min BUN/Creatinine Ratio 11.8 (10-20) Glucose 102 H (70-99(Fasting)) mg/dl Calcium 8.7 (8.6-10.3) mg/dl Phosphorus (2.5-4.9) mg/dl Magnesium 1.8 (1.7-2.4) mg/dl Total Bilirubin (0.2-1.0) mg/dl AST (13-39) U/L ALT (7-52) U/L Alkaline Phosphatase (34-104) U/L Total Protein (6.0-8.3) gm/dl Albumin (3.4-5.0) gm/dl Globulin (2.5-4.0) gm/dl Albumin/Globulin Ratio (0.9-2) POC Ur Test NEG (NEG) Blood Type A Negative Antibody Screen NEGATIVE 12/26/23 12/26/23 12/27/23 Range/Units 16:45 21:20 05:53 WBC 11.80 H 11.15 H 10.34 (4.8-10.8) K/ul RBC 3.73 L 3.64 L 3.72 L (4.20-5.40) M/uL Hgb 11.8 L 11.4 L 11.4 L (12.0-16.0) g/dl Hct 35.9 L 35.1 L 35.8 L (37.0-47.0) % MCV 96.2 96.4 96.2 (80.0-100.0) fL MCH 31.6 31.3 30.6 (25.0-34.0) pg MCHC 32.9 32.5 31.8 L (32.0-36.0) g/dL RDW Std Deviation 47.6 H 48.0 H 47.0 H (36.4-46.3) fL RDW Coeff of Carmen 13.5 13.4 13.2 (11.5-14.5) % Plt Count 163 165 154 (130-400) K/uL MPV 10.3 10.6 10.2 (9.4-12.4) fL Immature Gran % (Auto) 0.7 0.6 % Neut % (Auto) 58.4 57.6 % Lymph % (Auto) 27.9 28.3 % [place] % (Auto) 8.4 8.3 % Eos % (Auto) 3.6 4.1 % Baso % (Auto) 1.0 1.1 % Neut # (Auto) 6.90 H 6.42 (1.40-6.50) K/uL Lymph # (Auto) 3.29 3.16 (1.20-3.40) K/uL [place] # (Auto) 0.99 H 0.92 H (0.11-0.59) K/uL Eos # (Auto) 0.42 0.46 (0.00-0.50) K/uL Baso # (Auto) 0.12 0.12 (0.00-0.20) K/uL Immature Gran # (Auto) 0.08 0.07 (0.01-0.20) K/uL PT 11.6 (9.0-12.0) Seconds INR 1.1 (0.9-1.1) APTT 28 (21-31) Seconds PTT Ratio 1.0 Fibrinogen 303 (184-400) mg/dl Sodium 136 137 (136-145) mmol/L Potassium 4.2 4.4 (3.5-5.1) mmol/L Chloride 105 104 (98-107) mmol/L Carbon Dioxide 25 26 (21-32) mmol/L Anion Gap 6 7 (3-11) BUN 7 7 (6-23) mg/dl Creatinine 0.62 0.69 (0.6-1.2) mg/dl Est Cr Clr Drug Dosing 140.4 127.7 ml/min Est GFR ( Amer) 134.5 129.8 ml/min Est GFR (Non-Af Amer) 116.0 112.0 ml/min BUN/Creatinine Ratio 11.3 10.1 (10-20) Glucose 91 109 H (70-99(Fasting)) mg/dl Calcium 8.8 8.8 (8.6-10.3) mg/dl Phosphorus 2.7 (2.5-4.9) mg/dl Magnesium 1.8 (1.7-2.4) mg/dl Total Bilirubin 0.5 (0.2-1.0) mg/dl AST 19 (13-39) U/L ALT 10 (7-52) U/L Alkaline Phosphatase 203 H (34-104) U/L Total Protein 7.0 (6.0-8.3) gm/dl Albumin 3.8 (3.4-5.0) gm/dl Globulin 3.2 (2.5-4.0) gm/dl Albumin/Globulin Ratio 1.2 (0.9-2) POC Ur Test (NEG) Blood Type Antibody Screen PE: General: Alert, orientedx3, NAD CVS: S1S2 RRR Lungs; CTAB Abd: soft, appropriately tender , BS+, Incisions: Clean, dry, intact, bruising same VB minimal Ext; NT, no edema AP: 38 yo s/p TLH, Extensive TERRY, pod# 2 VSS Afebrile doing well H&H stable All questions were answered D/C home , f/u in office Results & Data Vital Signs (Past 12 Hours) Vital Signs Temp Pulse Pulse Pulse Resp BP BP 12/27/23 08:07 36.8 C 85 16 164/115 H 12/27/23 07:30 12/27/23 07:11 36.6 C 82 18 157/108 H 12/27/23 07:00 85 12/27/23 03:00 36.8 C 78 18 144/87 H Pulse Ox O2 Del Method 12/27/23 08:07 96 Room Air 12/27/23 07:30 Room Air 12/27/23 07:11 99 Room Air 12/27/23 07:00 12/27/23 03:00 94 Room Air
--- OUTSIDE RECORDS SUMMARY | 2023-12-27 11:47 | External Medical Summary | Summary of Care ---
Author Name Unknown Organization [facility] Address [address] [place] [address] Phone [phone] Care Team Providers Care Airport Operations Supervisor Name Role Phone Angelic Pereira DO Primary Care Provider [phone] Encounter Details Date Type Department Care Team (Late st Contact Info) Description 12/25/2023 Result Scan Unspecified Department <No scans attached> Allergies Active Allergy Reactions Criticality Noted Date Comments Justicia Adhatoda High 01/02/2023 Other reaction(s): Anaphylaxis Morphine Hives High 12/30/2012 Other reaction(s): Hives Mushroom Extract Complex Hives High 05/21/2015 mushrooms Other reaction(s): Hives Peanut Butter Flavor Hives 05/21/2015 Peanuts, nuts Penicillins Unknown High 12/30/2012 Told as a child Other reaction(s): Difficulty Breathing documented as of this encounter (statuses as of 12/25/2023) Medications Medication Sig Dispensed Refills Start Date [...] Pain, Severe. 24 Tablet 0 12/23/2023 Active documented as of this encounter (statuses as of 12/25/2023) Active Problems Problem Noted Date Diagnosed Date [...] urgency 07/15/2012 Bipolar 1 disorder Overview: [facility] Tobacco abuse documented as of this encounter (statuses as of 12/25/2023) Resolved Problems Problem Noted Date Diagnosed Date [...] as of this encounter (statuses as of 12/25/2023) Immunizations Name Administration Dates Next Due COVID-19 [...] 11:45 AM EDT [facility] [address] [place] [address] Aiden Appiah MD [address] [place] [address] 03/09/2024 9:20 AM EDT Office Visit Neurology Jessica Cedillo [place] [address] [facility] [place] [address] Josette Beth MD [address] [place] [id number] Scheduled Procedures Name Priority Associated Diagnoses Date/Ti [...] Procedure Name Priority Date/Time Associated Diagnosis Comments OUTSIDE LAB RESULTS 12/25/2023 documented in this encounter Results * OUTSIDE LAB RESULTS (12/25/2023) 12/25/2023 No Physician Data Unknown LABORATORY documented in this encounter Advance Directives Latest [...] Advance Directives occurred with: Patient Care Teams Airport Operations Supervisor Relationship Specialty Start Date End Date Angelic Pereira DO [address], [place] [id number] PCP - General Family Medicine 01/20/18 documented as of this encounter
[2023-12-28] MEDS ORDERED: GABAPENTIN 600 MG TAB PO SCH
[2023-12-29] MEDS ORDERED: GABAPENTIN 600 MG TAB PO SCH (12:00)
== END 2023-12-27 12:27 | disposition home health service (06) ==
LOC: 4E1 09:23 → ASU 09:23 → 2N 22:27

== ENCOUNTER 2024-05-17 20:05 | Inpatient (IN) ==
[2024-05-17] MEDS: OPTIRAY 320 125ml IV ONE (20:20)
[2024-05-17] MEDS: PROCHLORPERAZINE 2 ML IV ONE (20:36)
[2024-05-17] MEDS: diphenhydrAMINE 50 MG/ML VIAL IV STA (20:36)
[2024-05-17] MEDS: ACETAMINOPHEN 1,000 MG/100 ML VIAL IV STA (20:37)
[2024-05-17] MEDS: SODIUM CHLORIDE 0.9% 500 ML IV ONE (20:37)
[2024-05-17 20:44] LABS: iSTAT Blood Urea Nitrogen < 3 mg/dl (7-18); iSTAT Carbon Dioxide 20 mmol/L (24-31); iSTAT Chloride 103 mmol/L (101-112); iSTAT Glucose 92 mg/dl (70-99); iSTAT Hematocrit 42 % (37-47); iSTAT Hemoglobin 14.3 g/dl (12.0-16.0); iSTAT Ionized Calcium 1.09 mmol/l (1.12-1.32); iSTAT Potassium 3.3 mmol/L (3.3-5.0); iSTAT Sodium 139 mmol/L (135-144)
--- NOTE | 2024-05-17 20:48 | CT Scan Report ---
Exam(s): CTA HEAD With Contrast IV Amt: 119 ml opti 320 EXAM: CT Angiography Head With Intravenous Contrast CLINICAL HISTORY: Reason for exam: neuro deficit, acute stroke suspected. TECHNIQUE: Axial computed tomographic angiography images of the head with intravenous contrast. CTDI is 44.21 mGy and DLP is 774.27 mGy-cm. Automated exposure control was utilized for the study. A dose lowering technique was utilized adhering to the principles of ALARA. MIP reconstructed images were created and reviewed. CONTRAST: Patient received 119 ml opti 320 of IV contrast COMPARISON: No relevant prior studies available. FINDINGS: Right internal carotid artery: No acute findings. Intracranial segment is patent with no significant stenosis. No aneurysm. Right anterior cerebral artery: Unremarkable. No occlusion or significant stenosis. No aneurysm. Right middle cerebral artery: Unremarkable. No occlusion or significant stenosis. No aneurysm. Right posterior cerebral artery: Unremarkable. No occlusion or significant stenosis. No aneurysm. Right vertebral artery: Unremarkable as visualized. Left internal carotid artery: No acute findings. Intracranial segment is patent with no significant stenosis. No aneurysm. Left anterior cerebral artery: Unremarkable. No occlusion or significant stenosis. No aneurysm. Left middle cerebral artery: Unremarkable. No occlusion or significant stenosis. No aneurysm. Left posterior cerebral artery: Unremarkable. No occlusion or significant stenosis. No aneurysm. Left vertebral artery: Unremarkable as visualized. Basilar artery: Unremarkable. No occlusion or significant stenosis. No aneurysm. IMPRESSION: No acute intracranial arterial occlusion Communications: Call Doctor Stroke Electronically signed by: Esteban Wong MD 05/17/24 20:47 PM
--- NOTE | 2024-05-17 20:51 | CT Scan Report ---
Exam(s): CTA NECK With Contrast IV Amt: 119 ml opti 320 EXAM: CT Angiography Neck With Intravenous Contrast CLINICAL HISTORY: Reason for exam: neuro deficit, acute stroke suspected. TECHNIQUE: Routine carotid CT angiography protocol was performed with intravenous contrast. NASCET criteria using the distal ICAs for comparison were used for evaluation of stenoses. CTDI is 26.99 mGy and DLP is 13.49 mGy-cm. Automated exposure control was utilized for the study. A dose lowering technique was utilized adhering to the principles of ALARA. MIP reconstructed images were created and reviewed. CONTRAST: Patient received 119 ml opti 320 of IV contrast COMPARISON: None. FINDINGS: VASCULATURE: Right common carotid artery: Unremarkable. No occlusion or significant stenosis. No dissection. Right internal carotid artery: Unremarkable. Extracranial segment is patent with no occlusion or significant stenosis. No dissection. Right external carotid artery: Unremarkable. No occlusion. Right vertebral artery: Unremarkable. No occlusion or significant stenosis. No dissection. Left common carotid artery: Unremarkable. No occlusion or significant stenosis. No dissection. Left internal carotid artery: Unremarkable. Extracranial segment is patent with no occlusion or significant stenosis. No dissection. Left external carotid artery: Unremarkable. No occlusion. Left vertebral artery: Unremarkable. No occlusion or significant stenosis. No dissection. NECK: Bones/joints: Unremarkable. No acute fracture. Soft tissues: Unremarkable. Lung apices: Clear. CAROTID STENOSIS REFERENCE USING NASCET CRITERIA: % ICA stenosis = (1 - narrowest ICA diameter/diameter of distal cervical ICA) x 100. Mild - <50% stenosis. Moderate - 50-69% stenosis. Severe - 70-94% stenosis. Near occlusion - 95-99% stenosis. Occluded - 100% stenosis. IMPRESSION: Negative CTA neck. Communications: Call Doctor Stroke Electronically signed by: Esteban Wong MD 05/17/24 20:49 PM
[2024-05-17 20:52] LABS: INR 1.2 (0.9-1.1); Partial Thromboplastin Ratio 1.1; Partial Thromboplastin Time 29 Seconds (21-31); Prothrombin Time 12.5 Seconds (9.0-12.0)
--- NOTE | 2024-05-17 20:53 | CT Scan Report ---
Exam(s): CT HEAD Without Contrast EXAM: CT Head Without Intravenous Contrast CLINICAL HISTORY: Reason for exam: neuro deficit, acute stroke suspected. TECHNIQUE: Axial computed tomography images of the head/brain without intravenous contrast. CTDI is 44.21 mGy and DLP is 774.27 mGy-cm. Automated exposure control was utilized for the study. A dose lowering technique was utilized adhering to the principles of ALARA. COMPARISON: No relevant prior studies available. FINDINGS: Brain: Mild chronic periventricular ischemic demyelination changes seen due to small vessel disease. No hemorrhage. Ventricles: Unremarkable. No ventriculomegaly. Bones/joints: Unremarkable. No acute fracture. Soft tissues: Unremarkable. Sinuses: Unremarkable as visualized. No acute sinusitis. Mastoid air cells: Unremarkable as visualized. No mastoid effusion. IMPRESSION: No acute intracranial abnormality Communications: Call Doctor Stroke Electronically signed by: Esteban Wong MD 05/17/24 20:52 PM
[2024-05-17 20:58] LABS: Alanine Aminotransferase 17 U/L (7-52); Albumin Globulin Ratio 1.3 (0.9-2); Albumin Level 4.2 gm/dl (3.4-5.0); Alkaline Phosphatase 183 U/L (34-104); Anion Gap 13 (3-11); Aspartate Aminotransferase 22 U/L (13-39); BUN Creatinine Ratio 5.6 (10-20); Bilirubin,Total 0.5 mg/dl (0.2-1.0); Blood Urea Nitrogen 4 mg/dl (6-23); Calcium 9.1 mg/dl (8.6-10.3); Carbon Dioxide 20 mmol/L (21-32); Chloride 103 mmol/L (98-107); Est GFR (Non-African American) 109.6 ml/min; Globulin 3.2 gm/dl (2.5-4.0); Glucose 94 mg/dl (70-99(Fasting)); Magnesium 1.7 mg/dl (1.7-2.4); Potassium 3.3 mmol/L (3.5-5.1); Sodium 136 mmol/L (136-145); Total Protein 7.4 gm/dl (6.0-8.3)
[2024-05-17] MEDS: LABETALOL HCL IV 5 MG/ML 20ML IV STA (21:00)
[2024-05-17] MEDS: MAGNESIUM SULFATE / D5W 1 GM/100 ML BAG IV ONE (21:03)
[2024-05-17 21:05] LABS: Troponin I High Sensitivity 3.4 pg/ml (0-14)
[2024-05-17 21:19] LABS: Hematocrit (blood only) 41.7 % (37.0-47.0); Hemoglobin 14.1 g/dl (12.0-16.0); Mean Corpuscular Hemoglobin 29.7 pg (25.0-34.0); Mean Corpuscular Hgb Conc 33.8 g/dL (32.0-36.0); Mean Corpuscular Volume 87.8 fL (80.0-100.0); Platelet Count 237 K/uL (130-400); RDW Coefficient of Variation 13.6 % (11.5-14.5); RDW Standard Deviation 43.8 fL (36.4-46.3); Red Blood Count 4.75 M/uL (4.20-5.40); White Blood Count 13.25 K/ul (4.8-10.8)
[2024-05-17] MEDS: SODIUM CHLORIDE 0.9% 1,000 ML IV SCH (21:29)
[2024-05-17 21:39] LABS: Appearance Urine Clear (Clear); Bilirubin Urine Negative (Negative); Blood Urine Negative (Negative); Color Urine Yellow; Glucose Urine UA Negative (Negative); Ketones Urine Negative (Negative); Leukocyte Esterase Urine Negative (Negative); Nitrite Urine Negative (Negative); Protein Urine Negative (Negative); Specific Gravity Urine 1.016 (1.000-1.030); Urobilinogen Urine Negative (Negative); pH Urine 6.5 (4.5-7.5)
[2024-05-17] MEDS: LORazepam 2 MG/1 ML VIAL IV STA (21:49)
[2024-05-17] MEDS: ASPIRIN CHEW 324 MG PO STA (21:49)
[2024-05-17 21:58] LABS: Amphetamines+Metham, Urine Neg (Neg); Barbiturates, Urine Neg (Neg); Benzodiazepine, Urine Neg (Neg); Cocaine, Urine Neg (Neg); Fentanyl, Urine Neg (Neg); MDMA (Ecstacy), Urine Neg (Neg); Marijuana, Urine Pos (Neg); Methadone, Urine Neg (Neg); Opiate, Urine Neg (Neg); Phencyclidine, Urine Neg (Neg)
[2024-05-17 22:25] LABS: Adenovirus PCR Not Detected (NotDetected); Bordetella parapertussis PCR Not Detected (NotDetected); Bordetella pertussis PCR Not Detected (NotDetected); Chlamydia pneumoniae PCR Not Detected (NotDetected); Coronavirus 229E PCR Not Detected (NotDetected); Coronavirus CoV-2 (COVID19)PCR Not Detected (NotDetected); Coronavirus HKU1 PCR Not Detected (NotDetected); Coronavirus NL63 PCR Not Detected (NotDetected); Coronavirus OC43PCR Not Detected (NotDetected); Human Metapneumovirus PCR Not Detected (NotDetected); Influenza A PCR Not Detected (NotDetected); Influenza B PCR Not Detected (NotDetected); Mycoplasma pneumoniae PCR Not Detected (NotDetected); Parainfluenza Virus 1 PCR Not Detected (NotDetected); Parainfluenza Virus 2 PCR Not Detected (NotDetected); Parainfluenza Virus 3 PCR Not Detected (NotDetected); Parainfluenza Virus 4 PCR Not Detected (NotDetected); Respiratory Syncytial VirusPCR Not Detected (NotDetected); Rhinovirus/Enterovirus PCR Not Detected (NotDetected)
[2024-05-17 22:45] LABS: Basophils % (auto) 0.8 %; Eosinophils # (auto) 0.52 K/uL (0.00-0.50); Eosinophils % (auto) 3.9 %; Immature Granulocytes % (auto) 0.8 %; Lymphocytes # (auto) 5.46 K/uL (1.20-3.40); Lymphocytes % (auto) 41.2 %; Monocytes # (auto) 0.62 K/uL (0.11-0.59); Monocytes % (auto) 4.7 %; Neutrophils # (auto) 6.45 K/uL (1.40-6.50); Neutrophils % (auto) 48.6 %; Polychromasia 1+
[2024-05-17] MEDS: THIAMINE HCL 100 MG in SYRINGE 9 ML IV STA (23:00)
[2024-05-17] MEDS: KETOROLAC TROMETHAMINE 15 MG/ML VIAL IV ONE (23:23)
[2024-05-17] MEDS: POTASSIUM CHLORIDE PWD 20 MEQ PACK PO STA (23:23)
[2024-05-17] MEDS: METOCLOPRAMIDE HCL INJ 5 MG/ML 2 ML VIAL IV STA (23:26)
[2024-05-17] MEDS: POTASSIUM CHLORIDE 20 MEQ in LACTATED RINGER'S 1,000 ML IV ONE (23:29)
--- NOTE | 2024-05-18 00:15 | Emergency Department Note ---
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 Communications: Call Doctor Stroke Electronically signed by: Esteban Wong MD 05/17/24 20:52 PM Head CTA 05/17/24 19:55 CR Exam(s): CTA HEAD With Contrast IV Amt: 119 ml opti 320 EXAM: CT Angiography Head With Intravenous Contrast CLINICAL HISTORY: Reason for exam: neuro deficit, acute stroke suspected. TECHNIQUE: Axial computed tomographic angiography images of the head with intravenous contrast. CTDI is 44.21 mGy and DLP is 774.27 mGy-cm. Automated exposure control was utilized for the study. A dose lowering technique was utilized adhering to the principles of ALARA. MIP reconstructed images were created and reviewed. CONTRAST: Patient received 119 ml opti 320 of IV contrast COMPARISON: No relevant prior studies available. FINDINGS: Right internal carotid artery: No acute findings. Intracranial segment is patent with no significant stenosis. No aneurysm. Right anterior cerebral artery: Unremarkable. No occlusion or significant stenosis. No aneurysm. Right middle cerebral artery: Unremarkable. No occlusion or significant stenosis. No aneurysm. Right posterior cerebral artery: Unremarkable. No occlusion or significant stenosis. No aneurysm. Right vertebral artery: Unremarkable as visualized. Left internal carotid artery: No acute findings. Intracranial segment is patent with no significant stenosis. No aneurysm. Left anterior cerebral artery: Unremarkable. No occlusion or significant stenosis. No aneurysm. Left middle cerebral artery: Unremarkable. No occlusion or significant stenosis. No aneurysm. Left posterior cerebral artery: Unremarkable. No occlusion or significant stenosis. No aneurysm. Left vertebral artery: Unremarkable as visualized. Basilar artery: Unremarkable. No occlusion or significant stenosis. No aneurysm. IMPRESSION: No acute intracranial arterial occlusion Communications: Call Doctor Stroke Electronically signed by: Esteban Wong MD 05/17/24 20:47 PM Neck CTA 05/17/24 19:55 CR Exam(s): CTA NECK With Contrast IV Amt: 119 ml opti 320 EXAM: CT Angiography Neck With Intravenous Contrast CLINICAL HISTORY: Reason for exam: neuro deficit, acute stroke suspected. TECHNIQUE: Routine carotid CT angiography protocol was performed with intravenous contrast. NASCET criteria using the distal ICAs for comparison were used for evaluation of stenoses. CTDI is 26.99 mGy and DLP is 13.49 mGy-cm. Automated exposure control was utilized for the study. A dose lowering technique was utilized adhering to the principles of ALARA. MIP reconstructed images were created and reviewed. CONTRAST: Patient received 119 ml opti 320 of IV contrast COMPARISON: None. FINDINGS: VASCULATURE: Right common carotid artery: Unremarkable. No occlusion or significant stenosis. No dissection. Right internal carotid artery: Unremarkable. Extracranial segment is patent with no occlusion or significant stenosis. No dissection. Right external carotid artery: Unremarkable. No occlusion. Right vertebral artery: Unremarkable. No occlusion or significant stenosis. No dissection. Left common carotid artery: Unremarkable. No occlusion or significant stenosis. No dissection. Left internal carotid artery: Unremarkable. Extracranial segment is patent with no occlusion or significant stenosis. No dissection. Left external carotid artery: Unremarkable. No occlusion. Left vertebral artery: Unremarkable. No occlusion or significant stenosis. No dissection. NECK: Bones/joints: Unremarkable. No acute fracture. Soft tissues: Unremarkable. Lung apices: Clear. CAROTID STENOSIS REFERENCE USING NASCET CRITERIA: % ICA stenosis = (1 - narrowest ICA diameter/diameter of distal cervical ICA) x 100. Mild - <50% stenosis. Moderate - 50-69% stenosis. Severe - 70-94% stenosis. Near occlusion - 95-99% stenosis. Occluded - 100% stenosis. IMPRESSION: Negative CTA neck. Communications: Call Doctor Stroke Electronically signed by: Esteban Wong MD 05/17/24 20:49 PM Discharge Plan Visit Data Chief Complaint: Stroke Alert Stated Complaint: STROKE ALERT ED Provider: Manjit Shah Discharge Problem: Stroke-like symptoms, Headache, Hypertensive emergency, Leukocytosis Forms Stand Alone Forms: My [facility] Prescriptions Prescriptions: No Action multivitamin Tablet 1 tab PO DAILY thiamine HCl (vitamin B1) 100 mg Tablet 100 mg PO DAILY albuterol sulfate 90 mcg/actuation HFA aerosol inhaler 2 puff INHALATION Q4 PRN (Reason: CONGESTION/WHEEZING) prazosin 1 mg Capsule 1 mg PO HS lamotrigine [Lamictal] 25 mg Tablet 50 mg PO BID lorazepam [Ativan] 1 mg Tablet 2 mg PO 2XD gabapentin 600 mg Tablet 600 mg PO Q12H Qty: 60 0RF lisdexamfetamine [Vyvanse] 20 mg capsule 20 mg PO DAILY Vraylar 3 mg capsule 3 mg PO QAM trazodone 50 mg tablet 100 mg PO HS Rx Instructions: ORDERED PRN BUT PATIENT TAKES ROUTINELY Referrals Referrals: Angelic Pereira DO [Primary Care Provider] -
[2024-05-18] MEDS: ACETAMINOPHEN 325 MG TAB PO PRN (00:33)
[2024-05-18] MEDS: oxyCODONE HCL IR 5 MG TAB (IMMEDIATE RELEASE) PO PRN ×2 (00:33→21:31)
[2024-05-18] MEDS: KETOROLAC TROMETHAMINE 15 MG/ML VIAL IV ONE (00:34)
[2024-05-18] MEDS ORDERED: PHARMACIST DISCHARGE MED REC CONSULT PRN (01:16)
[2024-05-18] MEDS ORDERED: LORazepam 2 MG/1 ML VIAL IV PRN (01:18)
[2024-05-18] MEDS ORDERED: LORazepam 0.5 MG TAB PO PRN (01:18)
[2024-05-18] MEDS ORDERED: KETOROLAC TROMETHAMINE 15 MG/ML VIAL IV PRN (01:18)
[2024-05-18] MEDS: DEXAMETHASONE SOD INJ 4 MG/ML VIAL IV STA (01:31)
[2024-05-18] MEDS: LORazepam 2 MG/1 ML VIAL IV PRN (01:41)
[2024-05-18] MEDS: GADOBUTROL 65ML VIAL IV ONE (02:32)
[2024-05-18] MEDS: oxyCODONE HCL IR 5 MG TAB (IMMEDIATE RELEASE) PO STA (03:04)
[2024-05-18] MEDS: METOPROLOL TARTRATE 1 MG/ML VIAL IV STA ×2 (03:05→06:06)
[2024-05-18] MEDS: LABETALOL HCL IV 5 MG/ML 20ML IV STA (03:38)
--- NOTE | 2024-05-18 04:27 | Magnetic Resonance Report ---
Exam(s): MRI HEAD W/WO Contrast IV Amt: 8cc gadavist EXAM: MR Head Without and With Intravenous Contrast CLINICAL HISTORY: Reason for exam: suárez. TECHNIQUE: Magnetic resonance images of the head/brain without and with intravenous contrast in multiple planes. CONTRAST: Patient received 8cc gadavist of IV contrast COMPARISON: Prior head CT from May 17, 2024. FINDINGS: Brain: Unremarkable. No mass. No hemorrhage. No acute infarct. The flow voids at the base of the brain are intact. No evidence of abnormal enhancement. The dural venous sinuses are patent. Ventricles: Unremarkable. No ventriculomegaly. Bones/joints: Unremarkable. No acute fracture. Sinuses: Unremarkable as visualized. No acute sinusitis. Mastoid air cells: Unremarkable as visualized. No mastoid effusion. Orbits: Unremarkable as visualized. IMPRESSION: Negative MRI of the brain. Electronically signed by: Olga Lidia Gan MD 05/18/24 04:26 AM
--- NOTE | 2024-05-18 04:29 | Magnetic Resonance Report ---
Exam(s): MRV HEAD EXAM: MR Venography Head Without Intravenous Contrast CLINICAL HISTORY: Reason for exam: suárez (as per dr cole). TECHNIQUE: Magnetic resonance venography images of the head without intravenous contrast. 3D and MIP reconstructed images were created and reviewed. COMPARISON: No relevant prior studies available. FINDINGS: Superior sagittal sinus: Unremarkable. Patent. Straight sinus: Unremarkable. Patent. Transverse sinuses: Hypoplastic left transverse dural sinus. Patent. Sigmoid sinuses: Unremarkable. Patent. Internal jugular veins: Unremarkable as visualized. Internal cerebral and cortical veins: Unremarkable as visualized. IMPRESSION: Negative MRV of the brain. Electronically signed by: Olga Lidia Gan MD 05/18/24 04:29 AM
[2024-05-18 04:42] LABS: Basophils # (auto) 0.07 K/uL (0.00-0.20); Basophils % (auto) 0.7 %; Eosinophils # (auto) 0.13 K/uL (0.00-0.50); Eosinophils % (auto) 1.3 %; Hematocrit (blood only) 43.5 % (37.0-47.0); Hemoglobin 14.6 g/dl (12.0-16.0); Immature Granulocytes # (auto) 0.08 K/uL (0.01-0.20); Immature Granulocytes % (auto) 0.8 %; Lymphocytes # (auto) 2.13 K/uL (1.20-3.40); Lymphocytes % (auto) 20.7 %; Mean Corpuscular Hemoglobin 29.9 pg (25.0-34.0); Mean Corpuscular Hgb Conc 33.6 g/dL (32.0-36.0); Mean Platelet Volume 9.7 fL (9.4-12.4); Monocytes # (auto) 0.21 K/uL (0.11-0.59); Neutrophils # (auto) 7.66 K/uL (1.40-6.50); Neutrophils % (auto) 74.5 %; Platelet Count 218 K/uL (130-400); RDW Coefficient of Variation 13.9 % (11.5-14.5); RDW Standard Deviation 44.6 fL (36.4-46.3); Red Blood Count 4.89 M/uL (4.20-5.40); White Blood Count 10.28 K/ul (4.8-10.8)
[2024-05-18 04:54] LABS: BUN Creatinine Ratio 6.1 (10-20); Calcium 9.2 mg/dl (8.6-10.3); Chol HDL Ratio 4.6 (0-5); Creatinine Clr Calc Pharmacy 101.3 ml/min; Est GFR (African American) 106.7 ml/min; Est GFR (Non-African American) 92.1 ml/min; Potassium 4.3 mmol/L (3.5-5.1)
[2024-05-18] MEDS: ACETAMINOPHEN 1,000 MG/100 ML VIAL IV STA (05:32)
--- NOTE | 2024-05-18 05:39 | CT Scan Report ---
Exam(s): CT HEAD Without Contrast EXAM: CT Head Without Intravenous Contrast CLINICAL HISTORY: Reason for exam: R sided weakness. TECHNIQUE: Axial computed tomography images of the head/brain without intravenous contrast. CTDI is 37.51 mGy and DLP is 625.8 mGy-cm. Automated exposure control was utilized for the study. A dose lowering technique was utilized adhering to the principles of ALARA. COMPARISON: No relevant prior studies available. FINDINGS: Brain: Unremarkable. No hemorrhage. No significant white matter disease. No edema. Ventricles: Unremarkable. No ventriculomegaly. Bones/joints: Unremarkable. No acute fracture. Soft tissues: Unremarkable. Sinuses: Unremarkable as visualized. No acute sinusitis. Mastoid air cells: Unremarkable as visualized. No mastoid effusion. IMPRESSION: No acute intracranial abnormality identified Electronically signed by: Esteban Wong MD 05/18/24 05:38 AM
[2024-05-18] MEDS: cloNIDine HCL 0.1 MG TAB PO ONE (05:53)
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
[2024-05-18 07:17] LABS: Estimated Average Glucose 97 mg/dl
[2024-05-18] MEDS: lisinopril 2.5 MG TAB PO SCH (07:51)
[2024-05-18] MEDS: MULTIVITAMIN TAB PO SCH (07:52)
[2024-05-18] MEDS: ASPIRIN 81 MG ECTAB PO SCH (07:52)
[2024-05-18] MEDS: THIAMINE HCL 100 MG TAB PO SCH (07:52)
[2024-05-18] MEDS: FOLIC ACID 1 MG TAB PO SCH (07:52)
[2024-05-18] MEDS: ENOXAPARIN INJ 40 MG/0.4 ML SYR SQ SCH (07:53)
--- NOTE | 2024-05-18 08:01 | XRay Report ---
SINGLE VIEW CHEST CLINICAL HISTORY: Neurological deficit. Stroke like symptoms FINDINGS: An AP, portable, upright chest radiograph is compared to study dated 10/07/2023. The cardiom ediastinal silhouette is unremarkable. There is mild elevation of the right hemidiaphragm. The lungs and pleural spaces are clear. No pneumothorax is seen. The bony thorax is grossly intact. IMPRESSION: No active disease in the chest. ACT 112: Negative or not required by law. Electronically signed by: Rakesh Sarabia M.D. 05/18/2024 8:00 AM
[2024-05-18] MEDS: cloNIDine HCL 0.1 MG TAB PO SCH ×2 (08:45→16:03)
[2024-05-18] MEDS ORDERED: ALBUTEROL HFA 8 GM INHALER INH PRN (08:50)
[2024-05-18] MEDS ORDERED: NON-FORMULARY MEDICATION (Multivitamin Tablet) PO SCH (09:00)
[2024-05-18] MEDS: CARIPRAZINE HCL 3 MG CAP PO SCH (10:37)
[2024-05-18] MEDS: lamoTRIgine 25 MG TAB PO SCH (10:37)
[2024-05-18] MEDS: GABAPENTIN 600 MG TAB PO SCH (10:38)
[2024-05-18] MEDS: LORazepam 1 MG TAB PO SCH (10:42)
[2024-05-18] MEDS ORDERED: PATIENT'S OWN CONTROLLED MED 2 PO PRN (11:22)
[2024-05-18] MEDS: hydrALAZINE HCL 20 MG/ML VIAL IV STA (11:41)
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
[2024-05-18] MEDS: lisinopril 10 MG TAB PO SCH (13:05)
[2024-05-18] MEDS: LISDEXAMFETAMINE DIMESYLATE PO SCH (13:06)
[2024-05-18] MEDS: carvediloL 3.125 MG TAB PO SCH (13:06)
--- NOTE | 2024-05-18 14:25 | Pharmacy Report ---
- Date of Service May 18, 2024 - Pharmacy CVA/TIA Medication Review Medications to Prevent Stroke handout has been added to the patients discharge packet. Antiplatelet(s) * aspirin 81 mg PO daily + clopidogrel 75 mg PO daily x at least 3 weeks Cholesterol * High intensity statin: atorvastatin 40 mg daily DVT Prophylaxis * Enoxaparin SQ Therapeutic Anticoagulation * No history of Afib/Aflutter noted Type 2 Diabetes * Patient does not have T2DM
[2024-05-18] MEDS: CLOPIDOGREL BISULFATE 75 MG TAB PO SCH (14:47)
--- NOTE | 2024-05-18 15:13 | Electrocardiogram Report ---
Test Reason : Blood Pressure : */* mmHG Vent. Rate : 93 BPM Atrial Rate : 93 BPM P-R Int : 154 ms QRS Dur : 106 ms QT Int : 380 ms P-R-T Axes : 69 47 31 degrees QTcB Int : 472 ms Normal sinus rhythm Incomplete right bundle branch block Abnormal ECG When compared with ECG of 07-Oct-2023 13:43, No significant change was found Confirmed by Zeferino Salazar ([id number]) on 05/18/2024 3:13:33 PM Referred By: REFERRED SELF Confirmed By: Zeferino Salazar
[2024-05-18] MEDS: ATORVASTATIN 40 MG TAB PO SCH (16:04)
--- NOTE | 2024-05-18 16:16 | Hospitalist Progress Note ---
Date of Service May 18, 2024 Assessment & Plan (1) Hypertensive urgency: (2) Hemiparesthesia: (3) Alcohol withdrawal: (4) Complex partial seizure disorder: (5) Hypertensive heart disease: (6) JEAN (generalized anxiety disorder): (7) Alcohol abuse: (8) Post traumatic stress disorder (PTSD): (9) Bipolar disorder: Plan Patient with a multitude of symptoms. Overall low suspicion for TIA stroke, suspect potentially more due to alcohol withdrawal, hypertensive urgency, mental health issues, possibly even her medications. Reviewed neurology recommendations, dual antiplatelet therapy, high-dose statin. Neurology recommending MRI of the cervical and thoracic spine to evaluate for possible MS Reviewing previous records, patient often has extremely uncontrolled blood pressure whenever in the hospital, suspect component of alcohol withdrawal multiple oral medications started. Would avoid dropping the blood pressure rapidly with IV medications. Coreg, clonidine, increase prazosin, lisinopril all started today. As needed IV hydralazine. Vraylar-which is being used for patient's mental health disorder has significant adverse reactions that she may be experiencing including seizures, hypertension, nausea, TIA/stroke. May need to consider discontinuing this medication Continue to monitor for alcohol withdrawal Monitor laboratory studies Home medications reviewed and ordered as appropriate 57 minutes spent in the care of the patient today . Admission and Anticipated Discharge Date Admission Date: May 18, 2024 Subjective Patient complaining of headache, some Darwin paresthesias, global pain, extremely anxious about blood pressure, asking if we will need IV drip. Physical Exam Physical Exam: Constitutional: Alert HEENT: Mucous membranes moist. Lungs: Clear to auscultation, decreased, no wheezes rales or rhonchi CV: S1-S2, regular Abdomen: Soft, nontender, nondistended Extremities: No significant edema Neuro: Reports some slight decrease sensation on the right, no ataxia, no significant tremor Psych: Cooperative, anxious, restless Results & Data Results & Data Vital Signs (Past 12 Hours) Vital Signs Temp Pulse Pulse Pulse Resp BP BP 05/18/24 14:47 36.8 C 120 H 18 164/111 H 05/18/24 12:22 05/18/24 11:30 36.9 C 95 H 18 193/119 H 05/18/24 09:49 115 H 201/118 H 05/18/24 08:51 195/127 H 05/18/24 07:25 36.5 C 99 H 18 183/124 H 05/18/24 07:21 100 H 05/18/24 06:50 05/18/24 06:38 89 05/18/24 06:06 91 H 181/128 H 05/18/24 05:37 36.8 C 91 H 20 05/18/24 05:00 94 H 16 161/117 H 05/18/24 04:14 89 BP Pulse Ox O2 Del Method 05/18/24 14:47 94 Room Air 05/18/24 12:22 185/126 H 05/18/24 11:30 94 Room Air 05/18/24 09:49 05/18/24 08:51 05/18/24 07:25 197/123 H 95 Room Air 05/18/24 07:21 05/18/24 06:50 180/115 H 05/18/24 06:38 05/18/24 06:06 05/18/24 05:37 181/128 H 95 Room Air 05/18/24 05:00 97 Room Air 05/18/24 04:14 Diagnostic Findings Reviewed imaging, laboratory and diagnostic studies. Pertinent findings as below. MRI of the brain negative for acute findings CBC stable BMP and electrolytes stable Troponins negative (3) Alcohol withdrawal Complication of substance-induced condition: with unspecified complication Qualified Code(s): F10.939 - Alcohol use, unspecified with withdrawal, unspecified
[2024-05-18] MEDS: PROMETHAZINE 6.25 MG/50.25 ML BAG IV PRN (16:48)
[2024-05-18] MEDS: carvediloL 6.25 MG TAB PO SCH (17:43)
[2024-05-18] MEDS: NICOTINE 21 MG/24 HR TDSY TD SCH (17:43)
[2024-05-18] MEDS ORDERED: ONDANSETRON INJ 2 MG/ML 2 ML VIAL ONE (20:13)
[2024-05-18] MEDS: PRAZOSIN HCL 1 MG CAP PO SCH (20:47)
[2024-05-18] MEDS: traZODone HCL 100 MG TAB PO SCH (20:51)
[2024-05-18] MEDS ORDERED: PRAZOSIN HCL 1 MG CAP PO SCH (21:00)
[2024-05-19] MEDS: ACETAMINOPHEN 500 MG TAB PO PRN (00:17)
--- NOTE | 2024-05-19 00:18 | Magnetic Resonance Report ---
Exam(s): MRI T SPINE Without Contrast EXAM: MR Thoracic Spine Without Intravenous Contrast CLINICAL HISTORY: Reason for exam: r/o MS. TECHNIQUE: Magnetic resonance images of the thoracic spine without intravenous contrast in multiple planes. COMPARISON: No relevant prior studies available. FINDINGS: Vertebrae: Unremarkable. No acute fracture. Discs/spinal canal/neural foramina: No acute findings. No significant disc disease. No spinal canal stenosis. Spinal cord: Unremarkable. Normal signal. Soft tissues: Unremarkable. IMPRESSION: Normal thoracic spine MRI. Electronically signed by: Gabe Plascencia M.D. 05/19/24 00:17 AM
--- NOTE | 2024-05-19 00:22 | Magnetic Resonance Report ---
Exam(s): MRI C SPINE EXAM: MR Cervical Spine Without Intravenous Contrast CLINICAL HISTORY: Reason for exam: r/o MS. TECHNIQUE: Magnetic resonance images of the cervical spine without intravenous contrast in multiple planes. COMPARISON: No relevant prior studies available. FINDINGS: Vertebral body height and alignment are maintained. There is no fracture or subluxation. There is no evidence of discitis. There is no evidence of ligamentous injury. There is mild disc degeneration at C5-C6. Cervical spinal cord is normal in caliber and signal. There is no cord edema, myelomalacia, or other cord lesion. C2-C3: No spinal canal or foraminal narrowing. C3-C4: No spinal canal or foraminal narrowing. C4-C5: No spinal canal or foraminal narrowing. C5-C6: Disc degeneration with disc bulge. Mild spinal canal narrowing. No foraminal narrowing. C6-C7: No spinal canal or foraminal narrowing. C7-T1: No spinal canal or foraminal narrowing. IMPRESSION: No evidence of demyelinating disease within the cervical spinal cord. Electronically signed by: Gabe Plascencia M.D. 05/19/24 00:21 AM
[2024-05-19] MEDS: hydrALAZINE HCL 20 MG/ML VIAL IV PRN (00:43)
--- NOTE | 2024-05-19 02:34 | Communication Note ---
Date of Service: May 19, 2024 Patient with uncontrolled BP and shakiness. SBP 1 50-200s last 24 hours. JUAN S 10 as per RN. AP Alcohol withdrawal PCU transfer JUAN S active protocol Librium taper
[2024-05-19] MEDS ORDERED: Ativan IV Alcohol Withdrawal--Active Protocol IV PRN (02:36)
[2024-05-19] MEDS ORDERED: LORazepam 2 MG/1 ML VIAL IV PRN ×2 (02:36)
[2024-05-19] MEDS ORDERED: chlordiazePOXIDE ALCOHOL WITHDRAWL 25MG PO STA (02:36)
[2024-05-19] MEDS: LORazepam 1 MG TAB PO STA (03:43)
[2024-05-19] MEDS: METOPROLOL TARTRATE 1 MG/ML VIAL IV STA ×2 (03:43→03:49)
[2024-05-19] MEDS: LORazepam 2 MG/1 ML VIAL IV PRN (05:16)
[2024-05-19] MEDS: chlordiazePOXIDE HCl 25 MG CAP PO SCH (05:20)
[2024-05-19] MEDS: MAGNESIUM SULFATE / D5W 1 GM/100 ML BAG IV ONE (05:38)
[2024-05-19] MEDS: carvediloL 6.25 MG TAB PO ONE (05:50)
[2024-05-19 06:02] LABS: Hematocrit (blood only) 44.1 % (37.0-47.0); Hemoglobin 15.5 g/dl (12.0-16.0); Mean Corpuscular Hemoglobin 30.8 pg (25.0-34.0); Mean Corpuscular Hgb Conc 35.1 g/dL (32.0-36.0); Mean Corpuscular Volume 87.5 fL (80.0-100.0); Mean Platelet Volume 10.1 fL (9.4-12.4); Platelet Count 237 K/uL (130-400); RDW Coefficient of Variation 13.6 % (11.5-14.5); Red Blood Count 5.04 M/uL (4.20-5.40); White Blood Count 18.48 K/ul (4.8-10.8)
[2024-05-19 06:17] LABS: BUN Creatinine Ratio 14.3 (10-20); Creatinine Clr Calc Pharmacy 132.6 ml/min; Potassium 3.6 mmol/L (3.5-5.1)
[2024-05-19 06:28] LABS: Basophils # (auto) 0.09 K/uL (0.00-0.20); Basophils % (auto) 0.5 %; Eosinophils # (auto) 0.23 K/uL (0.00-0.50); Eosinophils % (auto) 1.2 %; Immature Granulocytes # (auto) 0.09 K/uL (0.01-0.20); Immature Granulocytes % (auto) 0.5 %; Lymphocytes # (auto) 5.52 K/uL (1.20-3.40); Lymphocytes % (auto) 29.9 %; Monocytes # (auto) 1.56 K/uL (0.11-0.59); Monocytes % (auto) 8.4 %; Neutrophils # (auto) 10.99 K/uL (1.40-6.50); Neutrophils % (auto) 59.5 %
[2024-05-19] MEDS: LISDEXAMFETAMINE DIMESYLATE 20 MG PO SCH (07:59)
--- NOTE | 2024-05-19 11:50 | Hospitalist Progress Note ---
Date of Service May 19, 2024 Assessment & Plan (1) Benzodiazepine withdrawal with complication: (2) Alcohol withdrawal: (3) Hemiparesthesia: (4) Complex partial seizure disorder: (5) Hypertensive heart disease: (6) JEAN (generalized anxiety disorder): (7) Alcohol abuse: (8) Post traumatic stress disorder (PTSD): (9) Bipolar disorder: Plan Long conversation with the patient's at bedside, history obtained that patient may have run out of her Ativan 4 to 5 days prior to admission. Apparently she could not get to her psychiatrist for refill for a few weeks and when she did pharmacy would not fill the prescription and required a prior authorization. also reported that 2 to 3 days prior to admission patient had a severe panic and anxiety attack that was a one of the worst that he is ever encountered with her. also reports that the patient is under a lot of stress she is caring for her ex [id number] who is a paraplegic. He does not know that the patient would be stealing any of his medications, however, does report that patient does have a history of benzodiazepine misuse. confirms patient history that she only drinks 2-3 vodka shots a day mixed in orange juice. With this additional history patient's overall presentation highly consistent with acute benzodiazepine withdrawal. As evidenced by hallucinations, uncontrolled hypertension, nausea, paresthesias, insomnia. Patient did not respond to Ativan yesterday, however has had a very positive response to the Librium. Continue Librium taper Suspect now with Librium on board patient's blood pressure will be much easier to control, anticipate needing to titrate down her antihypertensive medications that were rapidly titrated up yesterday. Will put hold parameters on all her BP medications. Anticipate discontinuing some of them over the next day or 2. informed that patient will be in the hospital at least another 2 days while she continues to work through her withdrawal. The challenge may be getting her stabilized on a benzodiazepine at her insurance covering the medication so that she can get the medication at home. 53 minutes review of record, care of patient at bedside, communication with family Admission and Anticipated Discharge Date Admission Date: May 19, 2024 Subjective Events of last evening/overnight reviewed. at bedside and contributed to additional history. Patient sedated/asleep Physical Exam Physical Exam: Constitutional: Deeply asleep, unable to arouse HEENT: Mucous membranes moist. Lungs: Clear to auscultation, decreased, no wheezes rales or rhonchi CV: S1-S2, regular, mild tachycardia Abdomen: Soft, nondistended Extremities: No significant edema Neuro: Sleeping Results & Data Results & Data Vital Signs (Past 12 Hours) Vital Signs Temp Pulse Pulse Pulse Resp BP BP 05/19/24 11:14 36.6 C 80 16 05/19/24 07:04 36.6 C 101 H 25 H 05/19/24 07:00 113 H 05/19/24 06:30 109 H 05/19/24 06:16 112 H 05/19/24 06:01 107 H 05/19/24 05:45 105 H 05/19/24 05:42 96 H 05/19/24 05:31 109 H 05/19/24 05:21 104 H 05/19/24 05:15 36.8 C 111 H 20 184/129 H 05/19/24 05:15 05/19/24 04:07 108 H 170/130 H 05/19/24 03:49 108 H 171/122 H 05/19/24 03:35 37 C 101 H 16 05/19/24 01:09 162/120 H 05/19/24 00:42 197/133 H BP Pulse Ox O2 Del Method 05/19/24 11:14 104/71 93 Room Air 05/19/24 07:04 138/98 97 Room Air 05/19/24 07:00 05/19/24 06:30 154/116 H 05/19/24 06:16 156/112 H 05/19/24 06:01 160/117 H 05/19/24 05:45 174/123 H 05/19/24 05:42 05/19/24 05:31 154/122 H 05/19/24 05:21 160/127 H 05/19/24 05:15 96 Room Air 05/19/24 05:15 Room Air 05/19/24 04:07 05/19/24 03:49 05/19/24 03:35 171/122 H 97 Room Air 05/19/24 01:09 05/19/24 00:42 Diagnostic Findings Reviewed imaging, laboratory and diagnostic studies. Pertinent findings as below. WBCs 18.4 Sodium 135 (2) Alcohol withdrawal Complication of substance-induced condition: with unspecified complication Qualified Code(s): F10.939 - Alcohol use, unspecified with withdrawal, unspecified
--- NOTE | 2024-05-19 12:11 | Electroencephalogram ---
EEG Procedure Note Date of Service May 18, 2024 Start / End Times Start Time: 1100 End Time: [address] Juan Pablo Quiroz History A 38 year old female with seizure. EEG performed for evaluation of epileptiform activity. Home Medication List Medication Instructions Recorded Confirmed Type albuterol sulfate 90 mcg/actuation 2 puff inhalation Q4 PRN 05/09/23 05/17/24 History aerosol inhaler CONGESTION/WHEEZING multivitamin 1 tab PO DAILY 05/09/23 05/17/24 History thiamine HCl (vitamin B1) 100 mg 100 mg PO DAILY 05/09/23 05/17/24 History tablet lamotrigine 25 mg tablet (Lamictal) 50 mg PO BID 12/09/23 05/17/24 History lorazepam 1 mg tablet (Ativan) 2 mg PO 2XD Anxiety 12/09/23 05/17/24 History prazosin 1 mg capsule 1 mg PO HS 12/09/23 05/17/24 History gabapentin 600 mg tablet 600 mg PO Q12H #60 tabs 12/27/23 05/17/24 Rx cariprazine 3 mg capsule (Vraylar) 3 mg PO QAM 05/14/24 05/17/24 History lisdexamfetamine 20 mg capsule 20 mg PO DAILY 05/14/24 05/17/24 History (Vyvanse) trazodone 50 mg tablet 100 mg PO HS Sleep 05/15/24 05/17/24 History Inpatient Medication List Acetaminophen (Acetaminophen 500 Mg Tab) 500 mg PO Q6H PRN PRN Reason: fever/pain Stop: 06/17/24 01:17 Last Admin: 05/19/24 07:56 Dose: 500 mg Documented By: Admin: 05/19/24 00:17 Dose: 500 mg Documented By: ENRIQUE Aspirin (Aspirin 81 Mg Ectab) 81 mg PO QAM [facility] Stop: 06/17/24 08:59 Last Admin: 05/19/24 07:58 Dose: 81 mg Documented By: Admin: 05/18/24 07:52 Dose: 81 mg Documented By: JODI Atorvastatin Calcium (Atorvastatin 40 Mg Tab) 40 mg PO DAILY [facility] Stop: 06/17/24 14:44 Last Admin: 05/19/24 07:58 Dose: 40 mg Documented By: Admin: 05/18/24 16:04 Dose: 40 mg Documented By: JODI Cariprazine (Cariprazine Hcl 3 Mg Cap) 3 mg PO QAM [facility] Stop: 06/17/24 08:59 Last Admin: 05/19/24 07:56 Dose: 3 mg Documented By: Admin: 05/18/24 10:37 Dose: 3 mg Documented By: JODI Chlordiazepoxide HCl (Chlordiazepoxide Hcl 25 Mg Cap) 25 mg PO Q6H [facility] Stop: 05/19/24 21:01 Last Admin: 05/19/24 07:56 Dose: 25 mg Documented By: Admin: 05/19/24 05:20 Dose: 25 mg Documented By: LEONEL Clonidine HCl (Clonidine Hcl 0.1 Mg Tab) 0.2 mg PO TID [facility] Stop: 06/17/24 13:59 Last Admin: 05/19/24 07:56 Dose: 0.2 mg Documented By: Admin: 05/18/24 20:56 Dose: 0.2 mg Documented By: Admin: 05/18/24 16:03 Dose: 0.2 mg Documented By: JODI Clopidogrel Bisulfate (Clopidogrel Bisulfate 75 Mg Tab) 75 mg PO DAILY [facility] Stop: 06/17/24 14:29 Last Admin: 05/19/24 07:56 Dose: 75 mg Documented By: Admin: 05/18/24 14:47 Dose: 75 mg Documented By: JODI Enoxaparin Sodium (Enoxaparin Inj 40 Mg/0.4 Ml Syr) 40 mg SQ QAM [facility] Stop: 06/17/24 08:59 Last Admin: 05/19/24 08:11 Dose: Not Given Documented By: Admin: 05/18/24 07:53 Dose: 40 mg Documented By: JODI Folic Acid (Folic Acid 1 Mg Tab) 1 mg PO QAM [facility] Stop: 06/17/24 08:59 Last Admin: 05/19/24 07:57 Dose: 1 mg Documented By: Admin: 05/18/24 07:52 Dose: 1 mg Documented By: JODI Gabapentin (Gabapentin 600 Mg Tab) 600 mg PO Q12H [facility] Stop: 06/17/24 08:59 Last Admin: 05/19/24 07:57 Dose: 600 mg Documented By: Admin: 05/18/24 20:47 Dose: 600 mg Documented By: Admin: 05/18/24 10:38 Dose: 600 mg Documented By: JODI Hydralazine HCl (Hydralazine Hcl 20 Mg/Ml Vial) 10 mg IV Q6H PRN PRN Reason: SBP>190, DBP>100 Stop: 06/17/24 10:39 Last Admin: 05/19/24 00:43 Dose: 10 mg Documented By: ENRIQUE Lamotrigine (Lamotrigine 25 Mg Tab) 50 mg PO BID [facility]; Protocol Stop: 06/17/24 08:59 Last Admin: 05/19/24 07:59 Dose: 50 mg Documented By: Admin: 05/18/24 20:47 Dose: 50 mg Documented By: Admin: 05/18/24 10:37 Dose: 50 mg Documented By: JODI Lisdexamfetamine Dimesylate (Lisdexamfetamine Dimesylate (Pom)) [facility] [place] Stop: 06/17/24 11:59 Last Admin: 05/19/24 07:59 Dose: 1 each Documented By: RAMONA Lisinopril (Lisinopril 10 Mg Tab) [facility] [place] Stop: 06/17/24 11:29 Last Admin: 05/19/24 07:56 Dose: 10 mg Documented By: Admin: 05/18/24 13:05 Dose: 10 mg Documented By: JODI Lorazepam (Lorazepam 2 Mg/1 Ml Vial) 1 mg IV Q10M PRN PRN Reason: seizures Stop: 06/17/24 01:14 Last Admin: 05/18/24 07:51 Dose: 1 mg Documented By: Admin: 05/18/24 01:41 Dose: 1 mg Documented By: MONIQUE Lorazepam (Lorazepam 2 Mg/1 Ml Vial) 1 mg IV UD PRN; Protocol PRN Reason: EtOH Withdrawal AWSS Score 6,7 Stop: 06/18/24 02:35 Last Admin: 05/19/24 05:16 Dose: 1 mg Documented By: LEONEL Miscellaneous (Remove Nicoderm Patch) 1 each N/A DAILY@0859 [facility] Stop: 06/18/24 08:58 Last Admin: 05/19/24 08:00 Dose: 1 each Documented By: RAMONA Multivitamins (Multivitamin Tab) [facility] [place] Stop: 06/17/24 08:59 Last Admin: 05/19/24 07:58 Dose: 1 tab Documented By: Admin: 05/18/24 07:52 Dose: 1 tab Documented By: JODI Nicotine (Nicotine 21 Mg/24 Hr Tdsy) [facility] [place] Stop: 06/17/24 16:59 Last Admin: 05/19/24 07:58 Dose: 1 patch Documented By: Admin: 05/18/24 17:43 Dose: 1 patch Documented By: JODI Oxycodone HCl (Oxycodone Hcl Ir 5 Mg Tab (Immediate Release)) 10 mg PO Q4H PRN PRN Reason: Pain Stop: 06/01/24 00:03 Last Admin: 05/19/24 08:02 Dose: 10 mg Documented By: Admin: 05/19/24 01:43 Dose: 10 mg Documented By: Admin: 05/18/24 21:31 Dose: 10 mg Documented By: ENRIQUE Prazosin HCl (Prazosin Hcl 1 Mg Cap) 3 mg PO HS [facility] Stop: 06/17/24 20:59 Last Admin: 05/18/24 20:47 Dose: 3 mg Documented By: ENRIQUE Thiamine HCl (Thiamine Hcl 100 Mg Tab) [facility] [place] Stop: 06/17/24 08:59 Last Admin: 05/19/24 07:57 Dose: 100 mg Documented By: Admin: 05/18/24 07:52 Dose: 100 mg Documented By: JODI Discontinued Medications Acetaminophen (Acetaminophen 325 Mg Tab) 650 mg PO QID PRN PRN Reason: pain/fever Stop: 06/17/24 00:03 Last Admin: 05/18/24 00:33 Dose: 650 mg Documented By: MONIQUE Aspirin (Aspirin Chew 324 Mg) 324 mg PO NOW STA Stop: 05/17/24 21:36 Last Admin: 05/17/24 21:49 Dose: 324 mg Documented By: JACKIE Carvedilol (Carvedilol 3.125 Mg Tab) 3.125 mg PO BIDM [facility] Stop: 06/17/24 10:44 Last Admin: 05/18/24 17:49 Dose: Not Given Documented By: Admin: 05/18/24 13:06 Dose: 3.125 mg Documented By: JODI Carvedilol (Carvedilol 6.25 Mg Tab) 6.25 mg PO BIDM [facility] Stop: 06/17/24 16:59 Last Admin: 05/18/24 17:43 Dose: 6.25 mg Documented By: JODI Carvedilol (Carvedilol 6.25 Mg Tab) 6.25 mg PO NOW ONE Stop: 05/19/24 05:28 Last Admin: 05/19/24 05:50 Dose: 6.25 mg Documented By: LEONEL Clonidine HCl (Clonidine Hcl 0.1 Mg Tab) 0.1 mg PO NOW ONE Stop: 05/18/24 03:31 Last Admin: 05/18/24 05:53 Dose: Not Given Documented By: LOTUS Clonidine HCl (Clonidine Hcl 0.1 Mg Tab) 0.1 mg PO TID [facility] Stop: 06/17/24 07:44 Last Admin: 05/18/24 08:45 Dose: 0.1 mg Documented By: JODI Dexamethasone (Dexamethasone Sod Inj 4 Mg/Ml Vial) 10 mg IV NOW STA Stop: 05/18/24 01:11 Last Admin: 05/18/24 01:31 Dose: 10 mg Documented By: MONIQUE Diphenhydramine HCl (Diphenhydramine 50 Mg/Ml Vial) 12.5 mg IV NOW STA Stop: 05/17/24 20:33 Last Admin: 05/17/24 20:36 Dose: 12.5 mg Documented By: JACKIE Gadobutrol (Gadobutrol 65ml Vial) 8 ml IV ONCE ONE Stop: 05/18/24 02:33 Last Admin: 05/18/24 02:32 Dose: 8 ml Documented By: SANTIAGO Hydralazine HCl (Hydralazine Hcl 20 Mg/Ml Vial) 10 mg IV NOW STA Stop: 05/18/24 10:41 Last Admin: 05/18/24 11:41 Dose: 10 mg Documented By: JODI Sodium Chloride (Nss) 1,000 mls @ 50 mls/hr IV .Q20H [facility] Stop: 06/16/24 19:59 Last Infusion: 05/18/24 05:54 Dose: Infused Documented By: Infusion: 05/17/24 22:35 Dose: 0 mls/hr Documented By: Admin: 05/17/24 21:29 Dose: 50 mls/hr Documented By: SERAFIN Magnesium Sulfate/Dextrose (Magnesium Sulfate / D5w) 1 gm in 100 mls @ 50 mls/hr IV ONE ONE Stop: 05/17/24 22:31 Last Infusion: 05/17/24 23:35 Dose: Infused Documented By: Admin: 05/17/24 21:03 Dose: 50 mls/hr Documented By: JACKIE Sodium Chloride (Nss) 500 mls @ 999 mls/hr IV .Q31M ONE Stop: 05/17/24 21:02 Last Infusion: 05/17/24 21:08 Dose: Infused Documented By: Admin: 05/17/24 20:37 Dose: 999 mls/hr Documented By: JACKIE Prochlorperazine (Compazine) 2 mls @ 1 mls/min IV ONE ONE Stop: 05/17/24 20:33 Last Admin: 05/17/24 20:36 Dose: 1 mls/min Documented By: JACKIE Acetaminophen (Ofirmev) 1,000 mg in 100 mls @ 400 mls/hr IV NOW STA Stop: 05/17/24 20:46 Last Infusion: 05/17/24 21:05 Dose: Infused Documented By: Admin: 05/17/24 20:37 Dose: 400 mls/hr Documented By: JACKIE Thiamine HCl 100 mg/ Syringe 10 mls @ 2 mls/min IV NOW STA Stop: 05/17/24 21:39 Last Admin: 05/17/24 23:00 Dose: 2 mls/min Documented By: JACKIE Potassium Chloride 20 meq/ (Lactated Ringer's) 1,010 mls @ 50 mls/hr IV .[id number] ONE Stop: 05/18/24 18:56 Last Infusion: 05/18/24 12:09 Dose: Infused Documented By: Admin: 05/17/24 23:29 Dose: 50 mls/hr Documented By: MONIQUE Promethazine HCl (Phenergan) 6.25 mg in 50.25 mls @ 201 mls/hr IV Q6H PRN PRN Reason: Nausea And Vomiting Stop: 06/17/24 01:17 Last Infusion: 05/18/24 17:14 Dose: Infused Documented By: Admin: 05/18/24 16:48 Dose: 201 mls/hr Documented By: JODI Acetaminophen (Ofirmev) 1,000 mg in 100 mls @ 400 mls/hr IV NOW STA Stop: 05/18/24 04:45 Last Infusion: 05/18/24 05:53 Dose: Infused Documented By: Admin: 05/18/24 05:32 Dose: 400 mls/hr Documented By: LOTUS Magnesium Sulfate/Dextrose (Magnesium Sulfate / D5w) 1 gm in 100 mls @ 50 mls/hr IV ONE ONE Stop: 05/19/24 07:44 Last Infusion: 05/19/24 08:10 Dose: Infused Documented By: Admin: 05/19/24 05:38 Dose: 50 mls/hr Documented By: LEONEL Ioversol (Optiray 320 125ml) 119 ml IV ONCE ONE Stop: 05/17/24 20:19 Last Admin: 05/17/24 20:20 Dose: 119 ml Documented By: EDIE Ketorolac Tromethamine (Ketorolac Tromethamine 15 Mg/Ml Vial) 15 mg IV NOW ONE Stop: 05/17/24 23:16 Last Admin: 05/17/24 23:23 Dose: 15 mg Documented By: MONIQUE Ketorolac Tromethamine (Ketorolac Tromethamine 15 Mg/Ml Vial) 15 mg IV NOW ONE Stop: 05/18/24 00:04 Last Admin: 05/18/24 00:34 Dose: 15 mg Documented By: MONIQUE Labetalol HCl (Labetalol Hcl Iv 5 Mg/Ml 20ml) 10 mg IV NOW STA Stop: 05/17/24 20:42 Last Admin: 05/17/24 21:00 Dose: 10 mg Documented By: JACKIE Labetalol HCl (Labetalol Hcl Iv 5 Mg/Ml 20ml) 10 mg IV NOW STA Stop: 05/18/24 03:33 Last Admin: 05/18/24 03:38 Dose: 10 mg Documented By: MONIQUE Lisdexamfetamine Dimesylate (Lisdexamfetamine Dimesylate) 1 each PO TODAY@1200 [facility] Stop: 06/17/24 11:59 Last Admin: 05/18/24 13:06 Dose: 1 each Documented By: JODI Lisinopril (Lisinopril 2.5 Mg Tab) 2.5 mg PO QAM [facility] Stop: 06/17/24 06:54 Last Admin: 05/18/24 07:51 Dose: 2.5 mg Documented By: JODI Lorazepam (Lorazepam 2 Mg/1 Ml Vial) 1 mg IV NOW STA Stop: 05/17/24 21:35 Last Admin: 05/17/24 21:49 Dose: 1 mg Documented By: JACKIE Lorazepam (Lorazepam 1 Mg Tab) 2 mg PO BID [facility] Stop: 06/17/24 08:59 Last Admin: 05/18/24 20:57 Dose: 2 mg Documented By: Admin: 05/18/24 10:42 Dose: 2 mg Documented By: JODI Lorazepam (Lorazepam 1 Mg Tab) 1 mg PO NOW STA Stop: 05/19/24 02:31 Last Admin: 05/19/24 03:43 Dose: Not Given Documented By: ENRIQUE Metoclopramide HCl (Metoclopramide Hcl Inj 5 Mg/Ml 2 Ml Vial) 10 mg IV NOW STA Stop: 05/17/24 23:07 Last Admin: 05/17/24 23:26 Dose: 10 mg Documented By: MONIQUE Metoprolol Tartrate (Metoprolol Tartrate 1 Mg/Ml Vial) 2.5 mg IV NOW STA Stop: 05/18/24 02:55 Last Admin: 05/18/24 03:05 Dose: 2.5 mg Documented By: MONIQUE Metoprolol Tartrate (Metoprolol Tartrate 1 Mg/Ml Vial) 2.5 mg IV NOW STA Stop: 05/18/24 05:57 Last Admin: 05/18/24 06:06 Dose: 2.5 mg Documented By: LOTUS Metoprolol Tartrate (Metoprolol Tartrate 1 Mg/Ml Vial) 5 mg IV NOW STA Stop: 05/19/24 02:33 Last Admin: 05/19/24 03:43 Dose: Not Given Documented By: ENRIQUE Metoprolol Tartrate (Metoprolol Tartrate 1 Mg/Ml Vial) 2.5 mg IV NOW STA Stop: 05/19/24 03:30 Last Admin: 05/19/24 03:49 Dose: 2.5 mg Documented By: ENRIQUE Oxycodone HCl (Oxycodone Hcl Ir 5 Mg Tab (Immediate Release)) 5 mg PO Q4H PRN PRN Reason: Pain Stop: 06/01/24 00:03 Last Admin: 05/18/24 16:02 Dose: 5 mg Documented By: Admin: 05/18/24 11:49 Dose: 5 mg Documented By: Admin: 05/18/24 06:48 Dose: 5 mg Documented By: Admin: 05/18/24 00:33 Dose: 5 mg Documented By: MONIQUE Oxycodone HCl (Oxycodone Hcl Ir 5 Mg Tab (Immediate Release)) 5 mg PO NOW STA Stop: 05/18/24 02:55 Last Admin: 05/18/24 03:04 Dose: 5 mg Documented By: MONIQUE Potassium Chloride (Potassium Chloride Pwd 20 Meq Pack) 40 meq PO NOW STA Stop: 05/17/24 22:25 Last Admin: 05/17/24 23:23 Dose: 40 meq Documented By: MONIQUE Trazodone HCl (Trazodone Hcl 100 Mg Tab) 100 mg PO HS [facility] Stop: 06/17/24 20:59 Last Admin: 05/18/24 20:51 Dose: Not Given Documented By: ENRIQUE Description This is a 21 electrode EEG with a single channel dedicated to limited EKG. The electrodes were placed in accordance with the International 10-20 system. REPORT: At the onset of the EEG, the patient is awake. The background activity consists of 9-10 Hz, persistent, posteriorly dominant, moderate amplitude, symmetric and rhythmic activity that is reactive to eye opening with intermixed 15-25 Hz, 10-20 uV, beta activity. Anteriorly, it consists of a mixture of low voltage indeterminate activity and 15-25Hz, persistent, low amplitude, symmetric and rhythmic activity. Stepwise intermittent photic stimulation (1-23 Hz) does not induce any abnormalities. Hyperventilation is not performed. Drowsiness is characterized by low amplitude mixed frequency activity, roving eye movements, and decreased eye blinking and muscle artifact. Interpretation IMPRESSION: This is a normal awake and drowsy routine EEG. Excessive beta activity is a normal variant and can be seen as a medication effect, ie benzodiazepines and barbiturates. There is no evidence of focal slowing or epileptiform activity.
[2024-05-19] MEDS: LORazepam 1 MG TAB PO PRN (13:07)
--- NOTE | 2024-05-19 14:52 | Communication Note ---
Date of Service: May 19, 2024 Patient seen later in the morning. Now awake and conversant. She confirms her 's history. She states that she was taking the Ativan once or twice a day sometimes even more. That is why she ran out of the Ativan before could be refilled. She was only given 20 tablets by her PCP. A long discussion with her that hers all of her symptoms are really related to benzodiazepine withdrawal. Discussed with her the Librium titration protocol. We will need to make sure that she is able to get medications filled when she is discharged. Patient aware that she may be in the hospital another day or 2 will as she goes through this withdrawal process. Fully anticipate needing to cut back her blood pressure medications now that her withdrawal symptoms are better controlled. Explained to her that I put hold parameters on her medications so she should not get them if she is below the targeted range. Total time of conversation at the bedside according care with the patient additional 25 minutes to what was documented prior.
[2024-05-19] MEDS: ONDANSETRON INJ 2 MG/ML 2 ML VIAL IV PRN (15:38)
[2024-05-19] MEDS: carvediloL 6.25 MG TAB PO SCH (17:17)
[2024-05-19] MEDS: traZODone HCL 100 MG TAB PO SCH (21:11)
[2024-05-20] MEDS: traZODone HCL 100 MG TAB PO SCH (02:35)
[2024-05-20] MEDS: KETOROLAC TROMETHAMINE 15 MG/ML VIAL IV ONE (02:35)
--- NOTE | 2024-05-20 02:59 | Communication Note ---
Date of Service: May 20, 2024 3AM Patient SBP 80s, patient dizzy as per RN. Serum creatinine 1.25 from 0.63 AP Hypotension Patient placed on multiple antihypertensive agents for uncontrolled blood pressure following admission. ARF, possible ATN given hypotension Lisinopril and NSAIDs contributory IVF bolus Check UA Hold NSAIDs, lisinopril, clonidine and Coreg for now.
[2024-05-20] MEDS: SODIUM CHLORIDE 0.9% 500 ML IV ONE (03:10)
[2024-05-20] MEDS: LACTATED RINGER'S 1,000 ML IV ONE (04:35)
[2024-05-20 05:01] LABS: Hematocrit (blood only) 40.9 % (37.0-47.0); Hemoglobin 13.9 g/dl (12.0-16.0); Mean Corpuscular Hemoglobin 30.7 pg (25.0-34.0); Mean Corpuscular Volume 90.3 fL (80.0-100.0); Mean Platelet Volume 10.4 fL (9.4-12.4); Platelet Count 196 K/uL (130-400); RDW Coefficient of Variation 13.9 % (11.5-14.5); RDW Standard Deviation 46.2 fL (36.4-46.3); Red Blood Count 4.53 M/uL (4.20-5.40); White Blood Count 11.95 K/ul (4.8-10.8)
[2024-05-20 05:21] LABS: Basophils # (auto) 0.09 K/uL (0.00-0.20); Basophils % (auto) 0.8 %; Eosinophils # (auto) 0.35 K/uL (0.00-0.50); Eosinophils % (auto) 2.9 %; Immature Granulocytes # (auto) 0.07 K/uL (0.01-0.20); Immature Granulocytes % (auto) 0.6 %; Lymphocytes # (auto) 5.44 K/uL (1.20-3.40); Lymphocytes % (auto) 45.5 %; Monocytes % (auto) 6.7 %; Neutrophils % (auto) 43.5 %; Polychromasia 1+
[2024-05-20 05:22] LABS: BUN Creatinine Ratio 14.4 (10-20); Calcium 9.7 mg/dl (8.6-10.3); Creatinine Clr Calc Pharmacy 66.8 ml/min; Potassium 4.1 mmol/L (3.5-5.1)
[2024-05-20] MEDS: chlordiazePOXIDE HCl 25 MG CAP PO SCH (06:09)
[2024-05-20 09:06] LABS: Appearance Urine Turbid (Clear); Bacteria Urine Automated 4+ (None Seen); Bilirubin Urine Negative (Negative); Blood Urine Negative (Negative); Color Urine Dark Yellow; Epithelial Cell Urine Auto >20 /hpf (0-2); Glucose Urine UA Negative (Negative); Ketones Urine Trace (Negative); Leukocyte Esterase Urine Negative (Negative); Nitrite Urine Negative (Negative); Protein Urine 1+ (Negative); Specific Gravity Urine 1.022 (1.000-1.030); Urobilinogen Urine Negative (Negative)
[2024-05-20] MEDS: SODIUM CHLORIDE 0.9% 1,000 ML IV SCH (10:04)
--- NOTE | 2024-05-20 11:51 | Hospitalist Progress Note ---
Date of Service May 20, 2024 Assessment & Plan (1) Benzodiazepine withdrawal with complication: Plan: Presented with questionable panic attack with slurred speech and transient right-sided weakness She has been on Ativan 2 mg as directed but ran out of the medicine for the last 4 or 5 days Her trazodone has been increased to 300 mg recently by her psychiatrist about 4 days back Her symptoms have resolved and thought to be due to benzodiazepine withdrawal Stroke workup including MRI, CT of the head and CTAs of the head and neck are unremarkable Will continue with Ativan as needed and will advise her to make an appointment with her psychiatrist as soon as possible following discharge She will be given the trazodone 100 mg as before (2) Alcohol withdrawal: Plan: History of alcoholism Her symptoms are being complicated by withdrawal from alcohol Will continue to monitor No significant tremors involving the outstretched hands (3) Hemiparesthesia: Plan: Presented with slurred speech and hemiparesthesia suggestive of strokelike symptoms Has had extensive investigation which are unremarkable Appreciate neurology input and recommendation Initially was started with aspirin and Plavix which have been discontinued following discussion with the neurologist (4) Complex partial seizure disorder: Plan: Without any ongoing seizure activity Likely she has been having panic attacks EEG has been negative Will continue current dose of Lamictal (5) Hypertensive heart disease: Plan: Noted to have very high blood pressure and received multiple medications to improve it Blood pressure remains on the lower side at 117/80 She has been getting some intravenous fluid Will monitor the blood pressure while she is in the hospital (6) JEAN (generalized anxiety disorder): (7) Alcohol abuse: (8) Post traumatic stress disorder (PTSD): (9) Bipolar disorder: Plan Note from the prior hospitalist: Long conversation with the patient's at bedside, history obtained that patient may have run out of her Ativan 4 to 5 days prior to admission. Apparently she could not get to her psychiatrist for refill for a few weeks and when she did pharmacy would not fill the prescription and required a prior authorization. also reported that 2 to 3 days prior to admission patient had a severe panic and anxiety attack that was a one of the worst that he is ever encountered with her. also reports that the patient is under a lot of stress she is caring for her ex [id number] who is a paraplegic. He does not know that the patient would be stealing any of his medications, however, does report that patient does have a history of benzodiazepine misuse. confirms patient history that she only drinks 2-3 vodka shots a day mixed in orange juice. With this additional history patient's overall presentation highly consistent with acute benzodiazepine withdrawal. As evidenced by hallucinations, uncontro lled hypertension, nausea, paresthesias, insomnia. Patient did not respond to Ativan yesterday, however has had a very positive response to the Librium. Continue Librium taper Suspect now with Librium on board patient's blood pressure will be much easier to control, anticipate needing to titrate down her antihypertensive medications that were rapidly titrated up yesterday. Will put hold parameters on all her BP medications. Anticipate discontinuing some of them over the next day or 2. informed that patient will be in the hospital at least another 2 days while she continues to work through her withdrawal. The challenge may be getting her stabilized on a benzodiazepine at her insurance covering the medication so that she can get the medication at home. 53 minutes review of record, care of patient at bedside, communication with family Admission and Anticipated Discharge Date Admission Date: May 18, 2024 Subjective 05/20/2024 The patient was seen and examined in the telemetry unit She is very anxious and feels that she is having seizures while asleep and asking for Ativan She complains of headache which is likely due to fluctuating blood pressure Denies any new and/or more neurological symptoms Review of Systems Review of Systems: all systems reviewed and are unremarkable except as noted below Physical Exam Physical Exam: lying in bed without any acute distress Constitutional: well developed, well nourished, + ill appearing and + obese Eyes: PERRL, conjunctivae normal, anicteric sclerae ENMT: external ear and nose normal, oropharynx normal Neck: trachea midline, no thyromegaly Respiratory: no respiratory distress Auscultation: lungs clear to auscultation bilaterally Cardiovascular: Rate/Rhythm: regular rate and regular rhythm; not tachycardic Heart Sounds: normal S1 and normal S2; no murmur Extremities: no edema Gastrointestinal (Abdomen): Inspection/Auscultation: normal bowel sounds; abdomen not distended Percussion/Palpation: abdomen soft; abdomen nontender Musculoskeletal: no acute arthritis involving any of the joints Neurologic: normal touch/pain/proprioception and moves all extremities; no focal motor deficits Psychiatric: Affect: + anxious affect Mood: + anxious mood; no irritable mood Lymphatic: no cervical or axillary lymphadenopathy Results & Data Results & Data Vital Signs (Past 12 Hours) Vital Signs Temp Pulse Pulse Pulse Resp BP BP 05/20/24 07:30 84 05/20/24 07:11 36.3 C L 82 18 101/71 05/20/24 05:19 98 H 94/54 L 05/20/24 04:20 87 87/60 L 05/20/24 02:50 36.8 C 96 H 18 89/69 L Pulse Ox O2 Del Method 05/20/24 07:30 05/20/24 07:11 97 Room Air 05/20/24 05:19 05/20/24 04:20 05/20/24 02:50 95 Room Air Laboratory Results Short CBC 05/20/24 Range/Units 04:35 WBC 11.95 H (4.8-10.8) K/ul Hgb 13.9 (12.0-16.0) g/dl Hct 40.9 (37.0-47.0) % Plt Count 196 (130-400) K/uL BMP 05/20/24 04:35 Sodium 132 L Potassium 4.1 Chloride 101 Carbon Dioxide 24 BUN 18 Creatinine 1.25 H D Glucose 109 H Calcium 9.7 Urine 05/20/24 Range/Units 08:43 Urine Color Dark Yellow Urine Appearance Turbid A (Clear) Urine pH 6.0 (4.5-7.5) Ur Specific Happy 1.022 (1.000-1.030) Urine Protein 1+ H (Negative) Urine Glucose (UA) Negative (Negative) Medications Administered Current Inpatient Medications Acetaminophen (Acetaminophen 500 Mg Tab) 500 mg PO Q6H PRN PRN Reason: fever/pain Stop: 06/17/24 01:17 Last Admin: 05/19/24 21:15 Dose: 500 mg Albuterol (Albuterol Hfa 8 Gm Inhaler) 2 puffs INH Q4 PRN PRN Reason: CONGESTION/WHEEZING Stop: 06/17/24 08:49 Atorvastatin Calcium (Atorvastatin 40 Mg Tab) 40 mg PO DAILY [facility] Stop: 06/17/24 14:44 Last Admin: 05/20/24 07:32 Dose: 40 mg Cariprazine (Cariprazine Hcl 3 Mg Cap) 3 mg PO QAM [facility] Stop: 06/17/24 08:59 Last Admin: 05/20/24 07:33 Dose: 3 mg Carvedilol (Carvedilol 6.25 Mg Tab) 6.25 mg PO BIDM [facility] Stop: 06/18/24 16:59 Last Admin: 05/19/24 17:17 Dose: Not Given Chlordiazepoxide HCl (Chlordiazepoxide Hcl 25 Mg Cap) 25 mg PO Q8H [facility] Stop: 05/20/24 22:01 Last Admin: 05/20/24 06:09 Dose: 25 mg Chlordiazepoxide HCl (Chlordiazepoxide Hcl 5 Mg Cap) 5 mg PO Q12H [facility] Stop: 05/22/24 22:01 Chlordiazepoxide HCl (Chlordiazepoxide Hcl 10 Mg Cap) 10 mg PO Q8H [facility] Stop: 05/21/24 22:01 Clonidine HCl (Clonidine Hcl 0.1 Mg Tab) 0.2 mg PO TID [facility] Stop: 06/17/24 13:59 Last Admin: 05/19/24 21:08 Dose: 0.2 mg Enoxaparin Sodium (Enoxaparin Inj 40 Mg/0.4 Ml Syr) 40 mg SQ QAM [facility] Stop: 06/17/24 08:59 Last Admin: 05/20/24 07:37 Dose: Not Given Folic Acid (Folic Acid 1 Mg Tab) 1 mg PO QAM [facility] Stop: 06/17/24 08:59 Last Admin: 05/20/24 07:33 Dose: 1 mg Gabapentin (Gabapentin 600 Mg Tab) 600 mg PO Q12H [facility] Stop: 06/17/24 08:59 Last Admin: 05/20/24 07:31 Dose: 600 mg Hydralazine HCl (Hydralazine Hcl 20 Mg/Ml Vial) 10 mg IV Q6H PRN PRN Reason: SBP>190, DBP>100 Stop: 06/17/24 10:39 Last Admin: 05/19/24 00:43 Dose: 10 mg Sodium Chloride (Nss) 1,000 mls @ 100 mls/hr IV .Q10H [facility] Stop: 05/21/24 09:59 Last Admin: 05/20/24 10:04 Dose: 100 mls/hr Lamotrigine (Lamotrigine 25 Mg Tab) 50 mg PO BID [facility]; Protocol Stop: 06/17/24 08:59 Last Admin: 05/20/24 07:30 Dose: 50 mg Lisdexamfetamine Dimesylate (Lisdexamfetamine Dimesylate 20mg Capsule) 1 each PO QAM [facility] Stop: 06/17/24 11:59 Last Admin: 05/20/24 08:40 Dose: 1 each Lisinopril (Lisinopril 10 Mg Tab) 10 mg PO QAM [facility] Stop: 06/17/24 11:29 Last Admin: 05/19/24 07:56 Dose: 10 mg Lorazepam (Lorazepam 2 Mg/1 Ml Vial) 1 mg IV Q10M PRN PRN Reason: seizures Stop: 06/17/24 01:14 Last Admin: 05/18/24 07:51 Dose: 1 mg Lorazepam (Lorazepam 1 Mg Tab) 1 mg PO TID PRN PRN Reason: Anxiety Stop: 06/17/24 01:17 Last Admin: 05/20/24 07:44 Dose: 1 mg Lorazepam (Lorazepam 2 Mg/1 Ml Vial) 1 mg IV UD PRN; Protocol PRN Reason: EtOH Withdrawal AWSS Score 6,7 Stop: 06/18/24 02:35 Last Admin: 05/19/24 05:16 Dose: 1 mg Lorazepam (Lorazepam 2 Mg/1 Ml Vial) 2 mg IV UD PRN; Protocol PRN Reason: EtOH Withdrawal AWSS Score 8,9 Stop: 06/18/24 02:35 Lorazepam (Lorazepam 2 Mg/1 Ml Vial) 3 mg IV ONCE PRN; Protocol PRN Reason: EtOH Withdrawal AWSS Score 10+ Miscellaneous (Remove Nicoderm Patch) 1 each N/A DAILY@0859 [facility] Stop: 06/18/24 08:58 Last Admin: 05/20/24 07:29 Dose: 1 each Multivitamins (Multivitamin Tab) 1 tab PO QAM [facility] Stop: 06/17/24 08:59 Last Admin: 05/20/24 07:31 Dose: 1 tab Nicotine (Nicotine 21 Mg/24 Hr Tdsy) 1 patch TD QAM [facility] Stop: 06/17/24 16:59 Last Admin: 05/20/24 07:31 Dose: 1 patch Non-Formulary Medication (Patient's Own Controlled Med 2) 1 each PO Q24H [facility] Stop: 06/04/24 08:59 Ondansetron HCl (Ondansetron Inj 2 Mg/Ml 2 Ml Vial) 4 mg IV Q6H PRN PRN Reason: Nausea And Vomiting Stop: 06/17/24 18:30 Last Admin: 05/19/24 15:38 Dose: 4 mg Oxycodone HCl (Oxycodone Hcl Ir 5 Mg Tab (Immediate Release)) 10 mg PO Q4H PRN PRN Reason: Pain Stop: 06/01/24 00:03 Last Admin: 05/20/24 07:44 Dose: 10 mg Prazosin HCl (Prazosin Hcl 1 Mg Cap) [address] [facility] Stop: 06/19/24 20:59 Thiamine HCl (Thiamine Hcl 100 Mg Tab) 100 mg PO [facility] Stop: 06/17/24 08:59 Last Admin: 05/20/24 07:32 Dose: 100 mg Trazodone HCl (Trazodone Hcl 100 Mg Tab) [address] [facility] Stop: 06/19/24 02:19 Last Admin: 05/20/24 02:35 Dose: 100 mg (2) Alcohol withdrawal Complication of substance-induced condition: with unspecified complication Qualified Code(s): F10.939 - Alcohol use, unspecified with withdrawal, unspecified
[2024-05-20 14:27] LABS: Marijuana Quant, GCMS Urine 35 ng/mL (<5)
[2024-05-20] MEDS ORDERED: PRAZOSIN HCL 1 MG CAP PO SCH (21:00)
[2024-05-20 23:41] VITALS: O2SAT 95
[2024-05-21 07:36] VITALS: BP 121/84; RESP 18; TEMP 98.2
[2024-05-21] MEDS ORDERED: PATIENT'S OWN CONTROLLED MED 2 PO SCH (09:00)
[2024-05-21 09:50] VITALS: PULSE 98
--- NOTE | 2024-05-21 09:57 | Hospitalist Progress Note ---
Date of Service May 21, 2024 Assessment & Plan (1) Benzodiazepine withdrawal with complication: Plan: Presented with questionable panic attack with slurred speech and transient right-sided weakness She has been on Ativan 2 mg as directed but ran out of the medicine for the last 4 or 5 days Her trazodone has been increased to 300 mg recently by her psychiatrist about 4 days back Her symptoms have resolved and thought to be due to benzodiazepine withdrawal Stroke workup including MRI, CT of the head and CTAs of the head and neck are unremarkable Will continue with Ativan as needed and will advise her to make an appointment with her psychiatrist as soon as possible following discharge She will be given the trazodone 100 mg as before Does not have any symptoms of withdrawal and she has been ambulating without any difficulties She will be seeing her psychiatrist within a few days following discharge (2) Alcohol withdrawal: Plan: History of alcoholism Her symptoms are being complicated by withdrawal from alcohol Will continue to monitor No significant tremors involving the outstretched hands Does not have any symptoms of withdrawal No problem with ambulation She was strongly advised to quit drinking (3) Hemiparesthesia: Plan: Presented with slurred speech and hemiparesthesia suggestive of strokelike symptoms Has had extensive investigation which are unremarkable Appreciate neurology input and recommendation Initially was started with aspirin and Plavix which have been discontinued following discussion with the neurologist No more neurological symptoms (4) Complex partial seizure disorder: Plan: Without any ongoing seizure activity Likely she has been having panic attacks EEG has been negative Will continue current dose of Lamictal (5) Hypertensive heart disease: Plan: Noted to have very high blood pressure and received multiple medications to improve it Blood pressure remains on the lower side at 117/80 She has been getting some intravenous fluid Will monitor the blood pressure while she is in the hospital Her blood pressure is well-controlled to be discharged (6) JEAN (generalized anxiety disorder): (7) Alcohol abuse: (8) Post traumatic stress disorder (PTSD): (9) Bipolar disorder: Plan Note from the prior hospitalist: Long conversation with the patient's at bedside, history obtained that patient may have run out of her Ativan 4 to 5 days prior to admission. Apparently she could not get to her psychiatrist for refill for a few weeks and when she did pharmacy would not fill the prescription and required a prior authorization. also reported that 2 to 3 days prior to admission patient had a severe panic and anxiety attack that was a one of the worst that he is ever encountered with her. also reports that the patient is under a lot of stress she is caring for her ex [id number] who is a paraplegic. He does not know that the patient would be stealing any of his medications, however, does report that patient does have a history of benzodiazepine misuse. confirms patient history that she only drinks 2-3 vodka shots a day mixed in orange juice. With this additional history patient's overall presentation highly consistent with acute benzodiazepine withdrawal. As evidenced by hallucinations, uncontrolled hypertension, nausea, paresthesias, insomnia. Patient did not respond to Ativan yesterday, however has had a very positive response to the Librium. Continue Librium taper Suspect now with Librium on board patient's blood pressure will be much easier to control, anticipate needing to titrate down her antihypertensive medications that were rapidly titrated up yesterday. Will put hold parameters on all her BP medications. Anticipate discontinuing some of them over the next day or 2. informed that patient will be in the hospital at least another 2 days while she continues to work through her withdrawal. The challenge may be getting her stabilized on a benzodiazepine at her insurance covering the medication so that she can get the medication at home. 53 minutes review of record, care of patient at bedside, communication with family Admission and Anticipated Discharge Date Admission Date: May 18, 2024 Subjective 05/20/2024 The patient was seen and examined in the telemetry unit She is very anxious and feels that she is having seizures while asleep and asking for Ativan She complains of headache which is likely due to fluctuating blood pressure Denies any new and/or more neurological symptoms 05/21/2024 The patient was seen and examined in telemetry unit She has been feeling much better and denies any tremors Her headache is controlled She has been ambulating in the room and in the hallway without any unsteadiness She wants to go home this afternoon Review of Systems Review of Systems: all systems reviewed and are unremarkable except as noted below Physical Exam Physical Exam: lying in bed without any acute distress Constitutional: well developed, well nourished, + ill appearing and + obese Eyes: PERRL, conjunctivae normal, anicteric sclerae ENMT: external ear and nose normal, oropharynx normal Neck: trachea midline, no thyromegaly Respiratory: no respiratory distress Auscultation: lungs clear to auscultation bilaterally Cardiovascular: Rate/Rhythm: regular rate and regular rhythm; not tachycardic Heart Sounds: normal S1 and normal S2; no murmur Extremities: no edema Gastrointestinal (Abdomen): Inspection/Auscultation: normal bowel sounds; abdomen not distended Percussion/Palpation: abdomen soft; abdomen nontender Neurologic: normal touch/pain/proprioception and moves all extremities; no focal motor deficits Psychiatric: A+Ox3, euthymic affect Lymphatic: no cervical or axillary lymphadenopathy Results & Data Results & Data Vital Signs (Past 12 Hours) Vital Signs Temp Pulse Pulse Pulse Resp BP Pulse Ox 05/21/24 09:47 36.8 C 98 H 87 18 121/84 95 05/21/24 07:34 36.8 C 87 18 121/84 95 05/21/24 03:49 36.6 C 75 14 121/83 95 05/20/24 23:38 36.4 C L 83 14 116/71 95 05/20/24 22:00 81 O2 Del Method 05/21/24 09:47 05/21/24 07:34 Room Air 05/21/24 03:49 Room Air 05/20/24 23:38 Room Air 05/20/24 22:00 Medications Administered Current Inpatient Medications Acetaminophen (Acetaminophen 500 Mg Tab) 500 mg PO Q6H PRN PRN Reason: fever/pain Stop: 06/17/24 01:17 Last Admin: 05/20/24 17:48 Dose: 500 mg Albuterol (Albuterol Hfa 8 Gm Inhaler) 2 puffs INH Q4 PRN PRN Reason: CONGESTION/WHEEZING Stop: 06/17/24 08:49 Atorvastatin Calcium (Atorvastatin 40 Mg Tab) 40 mg PO DAILY [facility] Stop: 06/17/24 14:44 Last Admin: 05/21/24 09:09 Dose: 40 mg Cariprazine (Cariprazine Hcl 3 Mg Cap) 3 mg PO QAM [facility] Stop: 06/17/24 08:59 Last Admin: 05/21/24 09:09 Dose: 3 mg Chlordiazepoxide HCl (Chlordiazepoxide Hcl 5 Mg Cap) 5 mg PO Q12H [facility] Stop: 05/22/24 22:01 Chlordiazepoxide HCl (Chlordiazepoxide Hcl 10 Mg Cap) 10 mg PO Q8H [facility] Stop: 05/21/24 22:01 Last Admin: 05/21/24 05:16 Dose: 10 mg Enoxaparin Sodium (Enoxaparin Inj 40 Mg/0.4 Ml Syr) [facility] Stop: 06/17/24 08:59 Last Admin: 05/21/24 09:03 Dose: Not Given Folic Acid (Folic Acid 1 Mg Tab) [facility] Stop: 06/17/24 08:59 Last Admin: 05/21/24 09:09 Dose: 1 mg Gabapentin (Gabapentin 600 Mg Tab) 600 mg PO Q12H [facility] Stop: 06/17/24 08:59 Last Admin: 05/21/24 09:08 Dose: 600 mg Hydralazine HCl (Hydralazine Hcl 20 Mg/Ml Vial) 10 mg IV Q6H PRN PRN Reason: SBP>190, DBP>100 Stop: 06/17/24 10:39 Last Admin: 05/19/24 00:43 Dose: 10 mg Lamotrigine (Lamotrigine 25 Mg Tab) 50 mg PO BID [facility]; Protocol Stop: 06/17/24 08:59 Last Admin: 05/21/24 09:08 Dose: 50 mg Lisdexamfetamine Dimesylate (Lisdexamfetamine Dimesylate 20mg Capsule) 1 [facility] [place] Stop: 06/17/24 11:59 Last Admin: 05/21/24 09:10 Dose: 1 each Lisinopril (Lisinopril 10 Mg Tab) 10 mg PO [facility] Stop: 06/17/24 11:29 Last Admin: 05/19/24 07:56 Dose: 10 mg Lorazepam (Lorazepam 2 Mg/1 Ml Vial) 1 mg IV Q10M PRN PRN Reason: seizures Stop: 06/17/24 01:14 Last Admin: 05/18/24 07:51 Dose: 1 mg Lorazepam (Lorazepam 1 Mg Tab) 1 mg PO TID PRN PRN Reason: Anxiety Stop: 06/17/24 01:17 Last Admin: 05/21/24 07:43 Dose: 1 mg Lorazepam (Lorazepam 2 Mg/1 Ml Vial) 1 mg IV UD PRN; Protocol PRN Reason: EtOH Withdrawal AWSS Score 6,7 Stop: 06/18/24 02:35 Last Admin: 05/19/24 05:16 Dose: 1 mg Lorazepam (Lorazepam 2 Mg/1 Ml Vial) 2 mg IV UD PRN; Protocol PRN Reason: EtOH Withdrawal AWSS Score 8,9 Stop: 06/18/24 02:35 Lorazepam (Lorazepam 2 Mg/1 Ml Vial) 3 mg IV ONCE PRN; Protocol PRN Reason: EtOH Withdrawal AWSS Score 10+ Miscellaneous (Remove Nicoderm Patch) 1 each N/A DAILY@0859 [facility] Stop: 06/18/24 08:58 Last Admin: 05/21/24 09:10 Dose: 1 each Multivitamins (Multivitamin Tab) 1 tab PO [facility] Stop: 06/17/24 08:59 Last Admin: 05/21/24 09:09 Dose: 1 tab Nicotine (Nicotine 21 Mg/24 Hr Tdsy) 1 patch TD [facility] Stop: 06/17/24 16:59 Last Admin: 05/21/24 09:09 Dose: 1 patch Non-Formulary Medication (Patient's Own Controlled Med 2) 1 each PO Q24H [facility] Stop: 06/04/24 08:59 Ondansetron HCl (Ondansetron Inj 2 Mg/Ml 2 Ml Vial) 4 mg IV Q6H PRN PRN Reason: Nausea And Vomiting Stop: 06/17/24 18:30 Last Admin: 05/19/24 15:38 Dose: 4 mg Oxycodone HCl (Oxycodone Hcl Ir 5 Mg Tab (Immediate Release)) 10 mg PO Q4H PRN PRN Reason: Pain Stop: 06/01/24 00:03 Last Admin: 05/21/24 05:16 Dose: 10 mg Prazosin HCl (Prazosin Hcl 1 Mg Cap) 1 mg PO [facility] Stop: 06/20/24 20:59 Thiamine HCl (Thiamine Hcl 100 Mg Tab) 100 mg PO [facility] Stop: 06/17/24 08:59 Last Admin: 05/21/24 09:09 Dose: 100 mg Trazodone HCl (Trazodone Hcl 100 Mg Tab) 100 mg PO [facility] Stop: 06/19/24 02:19 Last Admin: 05/20/24 20:48 Dose: 100 mg (2) Alcohol withdrawal Complication of substance-induced condition: with unspecified complication Qualified Code(s): F10.939 - Alcohol use, unspecified with withdrawal, unspecified
[2024-05-21] MEDS ORDERED: PRAZOSIN HCL 1 MG CAP PO SCH (21:00)
--- NOTE | 2024-05-22 07:50 | Discharge Summary ---
Date of Service May 22, 2024 Admission HPI Per Admitting Provider History obtained from patient and records. Medical history significant for chronic diastolic heart failure (EF 55%, TTE 2023), hypertension, mood disorder, PE status post anti-coagulation, chronic back pain, fatty liver disease, past history benzodiazepine/opioid abuse as per records, alcohol abuse as per records, history seizures/pseudoseizure disorder, ongoing tobacco abuse. Last confinement December 2023 under Gynecology service for elective hysterectomy. Patient underwent alcohol withdrawal during confinement. Around dinnertime last night, patient noted her usual seizure attacks associated with slurred speech and transient right-sided weakness. Achy right-sided headache symptoms associated with nausea. Similar episode in the past as per patient. Has not had a seizure for years as per patient. Noncompliant with home aspirin Rx. Home trazodone recently increasing dose by psychiatrist due to sleep issues. Some stress from being caregiver to her invalid [id number]. Patient brought to ER for evaluation. 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 Admission Exam Per Admitting Provider Physical Exam: GENERAL: uncomfortable, obese, no respiratory distress, looks older than stated age SKIN: Normal color, warm HEENT: Bespectacled, pink palpebral conjunctivae, no ptosis, dry buccal mucosa NECK : Supple, short neck, no tenderness CHEST : Decreased breath sounds, no tenderness HEART : RRR, no obvious murmurs ABDOMEN: Some distention, nontender EXTREMITIES : Minimal LE swelling, no LE tenderness, no other conspicuous deformities noted NEUROLOGIC : Coherent, no facial asymmetry, no other gross focality Principal Diagnosis Benzodiazepine withdrawal, history of seizures, hypertension, alcohol abuse,JEAN Discharge Exam lying in bed without any acute distress Constitutional well developed, well nourished, + ill appearing and + obese Eyes PERRL, conjunctivae normal, anicteric sclerae ENMT external ear and nose normal, oropharynx normal Neck trachea midline, no thyromegaly Respiratory no respiratory distress Auscultation: lungs clear to auscultation bilaterally Cardiovascular Rate/Rhythm: regular rate and regular rhythm; not tachycardic Heart Sounds: normal S1 and normal S2; no murmur Extremities: no edema Gastrointestinal (Abdomen) Inspection/Auscultation: normal bowel sounds; abdomen not distended Percussion/Palpation: abdomen soft; abdomen nontender Neurologic normal touch/pain/proprioception and moves all extremities; no focal motor deficits Psychiatric A+Ox3, euthymic affect Affect: + anxious affect Mood: + anxious mood; no irritable mood Lymphatic no cervical or axillary lymphadenopathy Discharge Data Allergies Allergy/AdvReac Type Severity Reaction Status Date / Time mushroom Allergy Severe Anaphylaxis Verified 01/04/24 17:17 nut - unspecified Allergy Severe Anaphylaxis Verified 01/04/24 17:17 Penicillins Allergy Severe Difficulty Verified 01/04/24 17:17 Breathing tree nut Allergy Severe Anaphylaxis Verified 01/04/24 17:17 = MALABAR TREE NUT morphine Allergy Intermediate Hives Verified 01/04/24 17:17 peanut Allergy Intermediate ALL PEANUT Verified 01/04/24 17:17 OR PEANUT FLAVORING--HIVES fentanyl AdvReac Intermediate "makes me Verified 01/04/24 17:17 extremely hot" Consultations 05/17/24 23:25 ED Decision to Admit Stat 05/18/24 05:31 Consult Neurology Routine Ordered Studies 05/17/24 19:55 CT angio head w con Stat CT angio neck with con Stat CT head/brain wo con Stat 05/18/24 01:16 MR brain wo/w con Urgent MRI venography head [MR venography head wo con] Stat 05/18/24 04:31 CT head/brain wo con Stat 05/18/24 13:24 MR cervical spine wo con Routine MR thoracic spine wo con Routine Hospital Course (1) Benzodiazepine withdrawal with complication: Presented with questionable panic attack with slurred speech and transient right-sided weakness She has been on Ativan 2 mg as directed but ran out of the medicine for the last 4 or 5 days Her trazodone has been increased to 300 mg recently by her psychiatrist about 4 days back Her symptoms have resolved and thought to be due to benzodiazepine withdrawal Stroke workup including MRI, CT of the head and CTAs of the head and neck are unremarkable Will continue with Ativan as needed and will advise her to make an appointment with her psychiatrist as soon as possible following discharge She will be given the trazodone 100 mg as before Does not have any symptoms of withdrawal and she has been ambulating without any difficulties She will be seeing her psychiatrist within a few days following discharge (2) Alcohol withdrawal: History of alcoholism Her symptoms are being complicated by withdrawal from alcohol Will continue to monitor No significant tremors involving the outstretched hands Does not have any symptoms of withdrawal No problem with ambulation She was strongly advised to quit drinking (3) Hemiparesthesia: Presented with slurred speech and hemiparesthesia suggestive of strokelike symptoms Has had extensive investigation which are unremarkable Appreciate neurology input and recommendation Initially was started with aspirin and Plavix which have been discontinued following discussion with the neurologist No more neurological symptoms (4) Complex partial seizure disorder: Without any ongoing seizure activity Likely she has been having panic attacks EEG has been negative Will continue current dose of Lamictal (5) Hypertensive heart disease: Noted to have very high blood pressure and received multiple medications to improve it Blood pressure remains on the lower side at 117/80 She has been getting some intravenous fluid Will monitor the blood pressure while she is in the hospital Her blood pressure is well-controlled to be discharged (6) JEAN (generalized anxiety disorder): (7) Alcohol abuse: (8) Post traumatic stress disorder (PTSD): (9) Bipolar disorder: Plan Note from the prior hospitalist: Long conversation with the patient's at bedside, history obtained that patient may have run out of her Ativan 4 to 5 days prior to admission. Apparently she could not get to her psychiatrist for refill for a few weeks and when she did pharmacy would not fill the prescription and required a prior authorization. also reported that 2 to 3 days prior to admission patient had a severe panic and anxiety attack that was a one of the worst that he is ever encountered with her. also reports that the patient is under a lot of stress she is caring for her ex [id number] who is a paraplegic. He does not know that the patient would be stealing any of his medications, however, does report that patient does have a history of benzodiazepine misuse. confirms patient history that she only drinks 2-3 vodka shots a day mixed in orange juice. With this additional history patient's overall presentation highly consistent with acute benzodiazepine withdrawal. As evidenced by hallucinations, uncontrolled hypertension, nausea, paresthesias, insomnia. Patient did not respond to Ativan yesterday, however has had a very positive response to the Librium. Continue Librium taper Suspect now with Librium on board patient's blood pressure will be much easier to control, anticipate needing to titrate down her antihypertensive medications that were rapidly titrated up yesterday. Will put hold parameters on all her BP medications. Anticipate discontinuing some of them over the next day or 2. informed that patient will be in the hospital at least another 2 days while she continues to work through her withdrawal. The challenge may be getting her stabilized on a benzodiazepine at her insurance covering the medication so that she can get the medication at home. 53 minutes review of record, care of patient at bedside, communication with family Total Time Total Time Spent Total Time Spent (In Minutes): 40 minutes Discharge Plan Discharge Items Patient Disposition: Home - Self-Care Reason For Visit: TIA, SZ, RODRÍGUEZ Discharge Diagnosis: Benzodiazepine withdrawal, history of seizures, hypertension, alcohol abuse,JEAN Condition on Discharge: Good Activity: Resume your previous activity Non-emergency contact: Primary Care Provider Call non-emergency contact if: you have any medication questions and your symptoms worsen Follow-up/Referrals: Angelic Pereira, [Primary Care Provider] - (Your doctor's office will give you a call with an appointment within 7 days) Diet: Regular Addtl Attending Provider Instructions: Please take precautions to avoid falls Take your medications as advised Please make an appointment with a psychiatrist as soon as possible Keep appointments with the healthcare providers Pending Studies at Discharge: No Stand-Alone Forms: My [employer], Smoking Cessation, Medications to Prevent Stroke Medications and DC Order Prescriptions: New nicotine [Nicoderm CQ] 21 mg/24 hr Patch 24 Hour 1 patch transdermal QAM Qty: 3 0RF folic acid 1 mg Tablet 1 mg PO QAM Qty: 30 0RF lorazepam 1 mg tablet 1 mg PO BID Qty: 10 0RF Continued multivitamin Tablet 1 tab PO DAILY thiamine HCl (vitamin B1) 100 mg Tablet 100 mg PO DAILY albuterol sulfate 90 mcg/actuation HFA aerosol inhaler 2 puff INHALATION Q4 PRN (Reason: CONGESTION/WHEEZING) prazosin 1 mg Capsule 1 mg PO HS lamotrigine [Lamictal] 25 mg Tablet 50 mg PO BID gabapentin 600 mg Tablet 600 mg PO Q12H Qty: 60 0RF lisdexamfetamine [Vyvanse] 20 mg capsule 20 mg PO DAILY Vraylar 3 mg capsule 3 mg PO QAM Changed trazodone 50 mg tablet 50 mg PO HS Qty: 0 0RF Rx Instructions: ORDERED PRN BUT PATIENT TAKES ROUTINELY Discontinued lorazepam [Ativan] 1 mg Tablet 2 mg PO 2XD Discharge Orders: Discharge Order (Routine); Ordered 05/21/24 Ordered By: Kathy Murrell Admission Data Admit Date/Time: 05/18/24 01:14 Attending Provider: Kathy Murrell Admit Provider: Juan Pablo Quiroz Primary Care Provider: Angelic Pereira Other Providers: Juan Pablo Quiroz; Thalia Johnson; Manjit Oliveros Kathleen; Skyler Mcwilliams; Royer Morley; Bj Valiente; Pradip Alegre; Dayna Martinez; Dick Quintana; Kemal Appiah; Elvira Moore; Jose Napier; Veronica Khoury; Hoa Pierce; Pradip Tom; Candelario Bean Other Interventions: Discharge Summary Assessment (RN) Last Done: 05/21/24 09:47
[2024-05-22] MEDS ORDERED: chlordiazePOXIDE HCl 5 MG CAP PO SCH (10:00)
== END 2024-05-21 10:57 | disposition home or self-care (01) | DRG 896 ==
LOC: ED 20:05 → SUATTDRO 05-18 01:14 → 2N 05-18 01:14 → 2E 05-19 04:54

== ENCOUNTER 2024-06-28 14:39 | Inpatient (IN) ==
[2024-06-28] MEDS: LORazepam 2 MG/1 ML VIAL IV STA (15:12)
[2024-06-28 15:27] LABS: Hematocrit (blood only) 47.5 % (37.0-47.0); Hemoglobin 16.1 g/dl (12.0-16.0); Mean Corpuscular Hemoglobin 30.5 pg (25.0-34.0); Mean Corpuscular Hgb Conc 33.9 g/dL (32.0-36.0); Mean Platelet Volume 9.7 fL (9.4-12.4); Platelet Count 349 K/uL (130-400); RDW Coefficient of Variation 13.2 % (11.5-14.5); RDW Standard Deviation 43.6 fL (36.4-46.3); Red Blood Count 5.28 M/uL (4.20-5.40); White Blood Count 15.25 K/ul (4.8-10.8)
[2024-06-28 15:32] LABS: Albumin Level 4.9 gm/dl (3.4-5.0); BUN Creatinine Ratio 13.7 (10-20); Bilirubin Direct 0.2 mg/dl (0-0.2); Bilirubin,Total 0.6 mg/dl (0.2-1.0); Calcium 10.3 mg/dl (8.6-10.3); Creatinine Clr Calc Pharmacy 118.2 ml/min; Magnesium 1.9 mg/dl (1.7-2.4); Potassium 3.9 mmol/L (3.5-5.1); Total Protein 8.6 gm/dl (6.0-8.3)
--- NOTE | 2024-06-28 16:02 | CT Scan Report ---
CT OF THE HEAD WITHOUT CONTRAST CLINICAL HISTORY: fell hit head after seizure COMPARISON STUDY: MRI of the brain and head CT May 18, 2024. CT DOSE: 547.75 mGy.cm TECHNIQUE: Helical axial images of the head were obtained without IV contrast. Automated exposure con trol was utilized for the study. A dose lowering technique was utilized adhering to the principles o f ALARA. FINDINGS: No acute intracranial hemorrhage, midline shift or mass effect is present. The ventricular system is unremarkable. The basal cisterns are patent. No extra-axial collections are present. There are no findings to suggest acute dural sinus thrombosis or acute territorial infarct. No significant calvarial abnormalities are present. Visualized portions of the sinuses and mastoid air cells are raheem ar. IMPRESSION: 1. No acute intracranial findings. 2. No calvarial fractures. ACT 112: Negative or not required by law. Electronically signed by: Mo Alston M.D. 06/28/2024 4:00 PM
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
[2024-06-28 18:40] LABS: Amphetamines+Metham, Urine Pos (Neg); Barbiturates, Urine Neg (Neg); Benzodiazepine, Urine Neg (Neg); Cocaine, Urine Pos (Neg); Fentanyl, Urine Neg (Neg); MDMA (Ecstacy), Urine Neg (Neg); Marijuana, Urine Pos (Neg); Methadone, Urine Neg (Neg); Opiate, Urine Neg (Neg); Phencyclidine, Urine Neg (Neg)
--- NOTE | 2024-06-28 19:18 | Emergency Department Note ---
ED Visit Note I had assumed care at the change of shift. The patient was waiting for transfer to [facility]. All the paperwork was completed and signed. She was accepted to their facility. She was going to have video and EEG monitoring for potential seizure versus pseudoseizure. As per the [facility] at [facility]. There will be no bed for her tonight. She will require a medicine admit/consult. I did speak with Dr. You, he will see the patient here in the ED. .
[2024-06-28] MEDS: MAGNESIUM SULFATE / D5W 1 GM/100 ML BAG IV ONE (19:33)
[2024-06-28] MEDS: NSS + 20MEQ KCL 20 MEQ/1,000 ML BAG IV ONE (19:33)
[2024-06-28] MEDS ORDERED: LORazepam 2 MG/1 ML VIAL IV PRN ×2 (19:33→20:04)
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
[2024-06-28] MEDS: THIAMINE HCL 100 MG in SYRINGE 9 ML IV STA (19:45)
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
[2024-06-28] MEDS ORDERED: PROMETHAZINE 6.25 MG/50.25 ML BAG IV PRN (20:05)
[2024-06-28 20:36] LABS: Appearance Urine Clear (Clear); Bacteria Urine Automated None Seen (None Seen); Bilirubin Urine Negative (Negative); Blood Urine Negative (Negative); Cast Urine Automated 0-2 /lpf (0-2); Color Urine Yellow; Epithelial Cell Urine Auto 0-2 /hpf (0-2); Glucose Urine UA Negative (Negative); Ketones Urine Negative (Negative); Leukocyte Esterase Urine Negative (Negative); Nitrite Urine Negative (Negative); Protein Urine 1+ (Negative); RBC Urine Automated 0-2 /hpf (0-2); Specific Gravity Urine 1.005 (1.000-1.030); Urobilinogen Urine Negative (Negative); WBC Urine Automated 0-5 /hpf (0-5); pH Urine 6.5 (4.5-7.5)
[2024-06-28 20:44] LABS: Thyroid Stimulating Hormone 1.156 uIu/ml (0.300-4.500)
[2024-06-28] MEDS: KETOROLAC TROMETHAMINE 15 MG/ML VIAL IV STA (21:11)
[2024-06-28] MEDS: traZODone HCL 50 MG TAB PO SCH (22:04)
[2024-06-28] MEDS: NICOTINE 21 MG/24 HR TDSY TD SCH (22:04)
[2024-06-28] MEDS: oxyCODONE HCL IR 5 MG TAB (IMMEDIATE RELEASE) PO PRN (22:44)
[2024-06-28] MEDS: ACETAMINOPHEN 500 MG TAB PO PRN (22:44)
[2024-06-28] MEDS: LORazepam 1 MG TAB PO PRN (22:56)
[2024-06-28] MEDS: lamoTRIgine 100 MG TAB PO SCH (22:56)
[2024-06-28] MEDS: PRAZOSIN HCL 1 MG CAP PO SCH (22:56)
[2024-06-28] MEDS: GABAPENTIN 600 MG TAB PO SCH (22:56)
[2024-06-29] MEDS ORDERED: MELATONIN 3 MG TAB PO PRN
[2024-06-29] MEDS: METOCLOPRAMIDE HCL INJ 5 MG/ML 2 ML VIAL IV STA (00:44)
[2024-06-29] MEDS: dexAMETHasone 10 MG in SYRINGE 0 ML IV ONE (00:54)
[2024-06-29] MEDS: KETOROLAC 30 MG/ML VIAL IV ONE (01:59)
[2024-06-29] MEDS: ACETAMINOPHEN 1,000 MG/100 ML VIAL IV STA (02:42)
--- NOTE | 2024-06-29 02:52 | CT Scan Report ---
EXAM: CT head/brain wo con CLINICAL HISTORY: r face numbness. suárez, hx head trauma, follow up TECHNIQUE: Axial non-contrast CT scan of the brain was performed from the skull base to the high parietal region with multiple reformats. One of the following dose reduction techniques were utilized for this exam: Automated exposure control, adjustment of the mA and/or kV according to patient size, use of iterative reconstruction. COMPARISON: 05/18/2024 . FINDINGS: No definite calvarium fractures. No established territorial infarction was identified. No evidence of intracerebral hemorrhage. No extra axial hematoma. No other focal parenchymal abnormalities are demonstrated. Lucas-white matter differentiation is maintained. No midline shifts or deformity. Normal configuration of the cerebral ventricles. Normal CT appearance of the posterior fossa structures namely the cerebellar hemispheres, brainstem, and cerebellar peduncles. The cerebello-pontine angles are clear. The pituitary gland, the pineal gland, and the optic chiasm are unremarkable. The osseous structures in the skull base are unremarkable. IMPRESSION: Normal CT of the head without contrast. No interval change in comparison with CT 05/18/2024. Electronically signed by Adam Schofield 06-29-2024 02:52 AM
[2024-06-29] MEDS: NSS + 20MEQ KCL 20 MEQ/1,000 ML BAG IV ONE (03:26)
[2024-06-29] MEDS: SUMAtriptan succinate 6 MG/0.5 ML VIAL SQ STA (04:16)
[2024-06-29 06:38] LABS: Basophils # (auto) 0.07 K/uL (0.00-0.20); Basophils % (auto) 0.7 %; Eosinophils # (auto) 0.02 K/uL (0.00-0.50); Eosinophils % (auto) 0.2 %; Hematocrit (blood only) 45.5 % (37.0-47.0); Hemoglobin 15.2 g/dl (12.0-16.0); Immature Granulocytes # (auto) 0.11 K/uL (0.01-0.20); Immature Granulocytes % (auto) 1.1 %; Lymphocytes # (auto) 1.54 K/uL (1.20-3.40); Mean Corpuscular Hemoglobin 30.4 pg (25.0-34.0); Mean Corpuscular Hgb Conc 33.4 g/dL (32.0-36.0); Mean Platelet Volume 10.2 fL (9.4-12.4); Monocytes # (auto) 0.14 K/uL (0.11-0.59); Monocytes % (auto) 1.4 %; Neutrophils # (auto) 8.39 K/uL (1.40-6.50); Neutrophils % (auto) 81.6 %; Platelet Count 272 K/uL (130-400); RDW Coefficient of Variation 13.2 % (11.5-14.5); White Blood Count 10.27 K/ul (4.8-10.8)
[2024-06-29 06:51] LABS: Calcium 10.1 mg/dl (8.6-10.3); Potassium 4.2 mmol/L (3.5-5.1)
--- OUTSIDE RECORDS SUMMARY | 2024-06-29 06:51 | External Medical Summary | Summary of Care ---
Author Name Unknown Organization [facility] Address [address] [place] [address] Phone [phone] Care Team Providers Care Lube Attendant Name Role Phone Yashcarlitos Angelic [place] DELGADILLO Primary Care Provider [phone] Encounter Details Date Type Department Care Team (Late st Contact Info) Description 06/20/2024 Refill Neurology [facility] [address] [place], [place] [id number] Services, Scheduling [address] [place] [address] Allergies Active Allergy Reactions Criticality Noted Date Comments Justicia Adhatoda High 01/02/2023 Other reaction(s): Anaphylaxis Morphine Hives High 12/30/2012 Other reaction(s): Hives Mushroom Extract Complex Hives High 05/21/2015 mushrooms Other reaction(s): Hives Peanut Butter Flavor Hives 05/21/2015 Peanuts, nuts Penicillins Unknown High 12/30/2012 Told as a child Other reaction(s): Difficulty Breathing documented as of this encounter (statuses as of 06/22/2024) Medications Medication Sig Dispensed Refills Start Date End Date Status Blood Pressure Monitoring (ADULT BLOOD PRESSURE CUFF LG) KITIndications:HTN , goal below 130/80 Use daily for blood pressure checks 1 Kit 01/20/2018 Active Proventil HFA 108 (90 Base) MCG/ACT Inhalation Aerosol SolutionIndication s:Acute cough,Acute bronchitis, antibiotics not indicated Inhale by mouth 2 Puffs every 4 hours as needed for Congestion or Wheezing. 18 g 06/01/2022 Active Folic Acid 400 MCG Oral Tablet DAILY IN THE MORNING 09/09/2022 Active Dicyclomine HCl 10 MG Oral Capsule (Bentyl) Take 1 Capsule by mouth 4 times a day before meals and at bedtime. Active Multivitamin Adult Oral Tablet Take 1 Tablet by mouth in the morning. Active Thiamine HCl 100 MG Oral Tablet (vitamin B-1) Take 1 Tablet by mouth in the morning. Active EpiPen 2-Dorian 0.3 MG/0.3ML Injection Solution Auto-injector For a severe reaction: Place orange end against the outer thigh, press firmly, hold in place for 10 seconds and go to the Emergency room. 2 Each 2 04/28/2023 Active Cariprazine HCl 1.5 MG Oral Capsule (Vraylar) Take 1 Capsule by mouth in the morning. Active Prazosin HCl 1 MG Oral Capsule (Minipress) Take 1 Capsule by mouth at bedtime. Active traZODone HCl 50 MG Oral Tablet (Desyrel) Take 1 Tablet by mouth at bedtime. 05/15/2024 Active LORazepam 1 MG Oral Tablet (Ativan) Take 1 Tablet by mouth in the morning and 1 Tablet before bedtime. Active Lisdexamfetamine Dimesylate 20 MG Oral Capsule (Vyvanse) Take 1 Capsule by mouth in the morning. Active Acetaminophen 325 MG Oral Tablet (Tylenol) Take 2 Tablets by mouth every 6 hours as needed for Pain, Mild or Pain, Moderate. 30 Tablet 05/31/2024 Active amLODIPine Besylate 5 MG Oral Tablet (Norvasc)Indicatio ns:Primary hypertension Take 1 Tablet by mouth in the morning. 30 Tablet 06/13/2024 Active lamoTRIgine 25 MG Oral Tablet (LaMICtal) Take 4 Tablets by mouth in the morning and 4 Tablets before bedtime. . 180 Tablet 4 06/22/2024 Active lamoTRIgine 25 MG Oral Tablet (LaMICtal) [...] medication and call your doctor. 140 Tablet 12/09/2023 4 Discontinue d(Refill) documented as of this encounter (statuses as of 06/22/2024) Active Problems Problem Noted Date Diagnosed Date Intractable migraine with aura without status mi grainosus 05/29/2024 ADHD (attention deficit hype ractivity disorder), combined type 05/29/2024 Food insecurity 02/22/2024 Overview: Per [facility] Protocol Pelvic pain in female 12/04/2023 Alcoholic hepatitis without ascites 09/11/2022 Fatty liver 09/11/2022 Major depressive disorder with single episode Alcohol abuse with intoxication, unspecified Infection of tooth 03/29/2021 Generalized anxiety disorder 09/09/2019 Post-traumatic stress disorder, unspecified 08/18 Opioid dependence in remission 04/17/2017 Hypertension 08/17/2016 B[facility] documented as of this encounter (statuses as of 06/22/2024) Resolved Problems Problem Noted Date Diagnosed Date Resolved Date Class 2 severe obesity with serious comorbidity and body mass index (BMI) of 38.0 to 38.9 in adult 09/11/2022 05/28/2023 Heart failure 09/11/2022 06/13/2024 Family circumstance 09/11/2022 06/13/20 Chronic hypokalemia 03/29/2021 06/13/20 Body mass index (BMI) of 40. 0 to 44.9 in adult 10/24/2019 09/11/2022 Overview: Per Obesity protocol Seizure-like activity 01/06/20192022 BMI 29.0-29.9,adult 04/30/2016 09/11/19 23 Overview: 185 lbs Hypertensive urgency 07/15/2012 024 documented as of this encounter (statuses as of 06/22/2024) Immunizations Name Administration Dates Next Due COVID-19 mRNA, LNP-s, No Pre serve, 2-Dose Series (just.me) 08/07/2021 TDAP (age 10 and older)(Boostrix) 02/25/2019 [...] Answer Date Recorded PHQ Adult Total Score 0 06/13/2024 Hunger Vital Sign Answer Date Recorded Within the past 12 months, y ou worried that your food would run out before you got the money to buy more. Often true 02/15/20 24 Within the past 12 months, t he food you bought just didn't last and you didn't have money to get more. Often true 02/15/2024 Childcare Answer Date Recorded Do you feel overwhelmed with taking care of a child, family member or friend? No 02/15/2024 Does your family need help f inding childcare? (Household - for ages 0-17 years) Not on file 02/15/2024 Clothing Answer Date Recorded Have you been unable to get clothing when it was really needed? No 02/15/2024 Is your family able to get c lothes or diapers when needed? (Household - for ages 0-17 years) Not on file 02/15/2024 Personal Safety Answer Date Recorded Do you feel unsafe or have concerns for your saf ety? No 02/15/2024 Do you have concerns for you r family's safety? (Household - for ages 0-17 years) Not on file 02/15/2024 Utilities Answer Date Recorded Do you have trouble paying y our heating, water, or electric bill? No 02/15/2024 Is your family able to pay t he heat, water, or electric bill? (Household - for ages 0-17 years) Not on file 02/15/2024 Does your family have access to good internet? (Household - for ages 0-17 years) Not on file 02/15/2024 Employment Status Answer Date Recorded Are you unemployed or without regular income? No 02/15/2024 Does the household have a re gular source of income? (Household - for ages 0-17 years) Not on file 02/15/2024 Social Connections Answer Date Recorded How often do you feel lonely or isolated from th ose around you? Rarely 02/15/2024 Financial Resource Strain Answer Date R ecorded Do you have any trouble payi ng for your medications, or do you think you might in the future? No 02/15/2024 Does your family have troubl e paying for medicine? (Household - for ages 0-17 years) Not on file 02/15/2024 Transportation Needs Answer Date Record ed Do you have trouble getting a ride to medical visits or work? (Adult - for ages 18 years and over) Not on file 02/15/2024 Does your family have a hard time getting a ride to doctors visits? (Household - for ages 0-17 years) Not on file 02/15/2024 Has lack of transportation k ept you from medical appointments, meetings, work, or from getting things needed for daily living? Check all that apply. No 02/15/2024 Do you (or your family) have trouble finding or paying for a ride (transportation)? (Household - for ages 0-17 years) Not on file 02/15/2024 Housing Stability Answer Date Recorded Do you currently live in a s helter or have no steady place to sleep at night? No 02/15/2024 Do you think you are at risk of becoming homeless? (Adult - for ages 18 years and over) Not on file 02/15/2024 Does your family worry about paying for your home or becoming homeless? (Household - for ages 0-17 years) Not on file 0 02/15/2024 Are you homeless or worried that you might be in the future? Yes 02/15/2024 Are you (or your family) cain eless or worried that you might be in the future? (Household - for ages 0-17 years) Not on file Food Insecurity Answer Date Recorded Do you need food for this week? Yes 02/15/2024 Are you able to get enough f ood for your family? (Household - for ages 0-17 years) Not on file 02/15/2024 Does your family need food t his week? (Household - for ages 0-17 years) Not on file 02/15/2024 Do you always have enough fo od for your family? (Household - for ages 0-17 years) Not on file 02/15/2024 Education Answer Date Recorded What is the [...] on file documented as of this encounter Functional Status Functional Status Response Date of Assess ment Are you deaf or do you have serious difficulty h earing? No 05/29/2024 Are you blind or do you have serious difficulty seeing, even when wearing glasses? No 05/29/2024 Do you have serious difficul ty walking or climbing stairs? (5 years old or older) No 05/29/2024 Do you have difficulty dress ing or bathing? (5 years old or older) No 05/29/2024 Because of a physical, menta l, or emotional condition, do you have difficulty doing errands alone such as visiting a doctor s office or shopping? (15 years old or older) No 05/29/20 Cognitive Status Response Date of Assessm ent Because of a physical, menta l, or emotional condition, do you have serious difficulty concentrating, remembering, or making decisions? (5 years old or older) No 05/29/2024 documented as of this encounter Miscellaneous Notes * Telephone Encounter - Thalia Fofana MD - 06/22/2024 12:39 PM ESTSigned Prescriptions: Disp Refills lamoTRIgine 25 MG Oral Tablet (LaMICtal) 180 Ta*4 Sig: Take 4 Tablets by mouth in the morning and 4 Tablets before bedtime. .Authorizing Provider: THALIA FOFANA * Telephone Encounter - Alessandra Jimenez, MED ASSIST - 06/22/2024 10:05 AM EST LMOM. Need to know how many tabs she is currently taking. If she is following taper she should be up to four tab BID * Telephone Encounter - Alessandra Jimenez MED ASSIST - 06/21/2024 10:42 AM EST LMOM. We need to know how pt is taking Lamictal * Telephone Encounter - Patricia Johnston OSA - 06/20/2024 2:04 PM EST Requested Information from caller: Who is calling patient Provider patient is established with: [facility] What is the concern or issue they are having: medication refill How long has the issue been going on: Any additional details to add: pt calling to inform she needs a refill of her lamtical to be sent to [facility] [place]. Please assist in putting this in for pt. Pts phone number for nurse to call back: [phone] Please make sure you verify pharmacy for anything medication related. Form to be used for established patients only (not new patients) documented in this encounter Plan of Treatment Upcoming Encounters Date Type Department Care Team (Late st Contact Info) Description 08/15/2024 8:00 AM EST Office Visit [facility] [address] [place] [id number] Polly Carias PA-C [address] [place] [address] 08/15/2024 10:50 AM EST Telemedicine Neurology, [place] [address] [place] [phone] Maximilian Tobar MD [address] [place] [address] 12/23/2024 10:10 AM EDT Office [facility] [address] [facility] [place] [address] Angelic Pe[facility] [address] [facility] [address] Scheduled Procedures Name Priority Associated Diagnoses Date/Ti me ESOPHAGOGASTRODUODENOSCOPY ( EGD), FLEXIBLE, TRANSORAL, DIAGNOSTIC Recall Portal hypertension (HCC) COLONOSCOPY FLEXIBLE PROXIMAL DIAGNOSTIC Recall History of colon polyps Health Maintenance Due Date Last Done Comments *NEPHROLOGY REFERRAL DUE TO RESISTANT HTN 01/01/2024 Influenza Vaccine (FLU shot) (#1) 2024 Depression Monitoring 06/13/2025 06/13/2024 GFR 06/13/2025 06/13/2024, 05/17, 12/04/2023, Additional history exists Pneumococcal Vaccine: Pediatrics (0 to 5 Years) and At-Risk Patients (6 to 64 Years) (1 of 2 - PCV) 06/13/2025 Postponed from 11/26/1993 (Patient Declined After Education) Albumin/Creatinine Ratio 06/13/2027 06/13/2024 Diabetes Screening 06/13/2027 06/13/2024, 1 , 05/29/2024, Additional history exists DTap/Tdap Vaccines (2 - Td or Tdap) 02/25/2029 02/25/2019 Colonoscopy 11/26/2032 09/08/2022 COVID-19 Vaccine Discontinued 08/07/2021 RETIRED - COLONOSCOPY-EVERY 5 YRS AGES 18-100 Discontinued 09/08/2022 Cervical Cancer Screening Discontinued HPV/Co-Test Discontinued 04/29/2023 Pap Smear Discontinued 04/29/2023, 07/17, 07/28/2016, Additional history exists HPV (Gardasil) Vaccine Aged Out No lo nger eligible based on patient's age to complete this topic Hepatitis B Vaccine Discontinued MENINGOCOCCAL (MENACTRA/MENVEO) Aged Out No longer eligible based on patient's age to complete this topic documented as of this encounter Medical Devices Not on filedocumented as of this encounter Advance Directives * Full Code (Latest Code Status on File) Date Activated Date Inactivated Comments 05/29/2024 11:16 PM 05/31/2024 2:31 PM This orde r reflects the patients wishes and were consensually agreed upon. Question Answer Comments Discussion of Advance Directives occurred with: Patient * Full Code Date Activated Date Inactivated Comments 05/08/2023 9:10 AM 05/08/2023 5:43 PM This order r eflects the patients wishes and were consensually agreed upon. Question Answer Comments Discussion of Advance Directives occurred with: Patient * Full Code Date Activated Date Inactivated Comments 05/08/2023 9:06 AM 05/08/2023 9:10 AM This order r eflects the patients wishes and were consensually agreed upon. Question Answer Comments Discussion of Advance Directives occurred with: Patient Care Teams Lube Attendant Relationship Specialty Start Date End Date Angelic Pereira DO [address] [place] [facility] [place] [address] PCP - General Family Medicine 01/20/18 documented as of this encounter
--- OUTSIDE RECORDS SUMMARY | 2024-06-29 06:51 | External Medical Summary | Summary of Care ---
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 [facility] This patient already has care established with Neurology. Do not place this order. Please use Ask A Doc to expedite care. Acknowledge Is this referral being placed for insurance purposes ONLY No, patient needs appointment [facility] REFERRAL QUESTIONS Seizure If this is for an initial diagnosis of a new seizure disorder, please place an order for an updated EEG Routine [[id number]] Acknowledge * Evaluate & Treat - Unlimited Visits (Within 10 days (routine)) - Authorized Specialty Diagnoses / Procedures Referred By Viviana figueroa Referred To Contact Pain Management / Pain Medicine Diagnoses Cervical disc herniation Angelic Pereira DO [address] [place] [address] Referral ID Status Reason Start Date Expiration Date Visits Requested Visits Authorized [id number] Authorized Specialty Services Required [phone] Question Answer Referral Priority Within 10 days (routine) Where should this appointment be scheduled? [facility] Reason for referral? Interventional Pain Management - (Injection) What condition is the patient being referred for? Neck Axial What is the preferred location to have this test performed? [facility] Comments Patient Name: Brigette Vazquez Date of : 1985 Department Phone Number: MRI or CT (if unable to have a MRI) is recommended if any of the following apply: 1. Patient has neck or back pain with radiation to extremities. A previous MRI will be accepted if symptoms unchanged since prior MRI. 2. Spinal surgery since last MRI. If yes, order a MRI with and without contrast. 3. Hx or ongoing cancer treatment. Patient will need spine x-ray (Ap/Lat) for axial neck or back pain if not done previously. Fax No. [facility] [phone] or contact hotel front office manager [phone] Fax No. [facility] [phone] or contact hotel front office manager [phone] Fax No. [facility] [phone] or contact hotel front office manager [phone] Reason for Visit * Reason Comments Hospital Follow-Up Patient is here toda y for a hospital follow up. Patient would like to discuss BP medication. Patient states she was told in the hospital she has bulging at C3 and C4 which they felt was causing migraines. 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 Active lamoTRIgine 25 MG Oral Tablet (LaMICtal) [...] and call your doctor. 140 Tablet 12/09/2023 Active Additional Information Patient taking differently: 25 mg Oral TID(AM/NOON/HS), Lamotrigine (Lamictal) 25 mg tablets.Take this medicatio as instructed below:1 tab by mouth twice a day for [...] please stop the medication and call your doctor., Reported on 05/29/2024 traZODone HCl 50 MG Oral Tablet (Desyrel) [...] in the morning. 30 Tablet 06/13/2024 Active Nicotine 21 MG/24HR Transdermal Patch 24 Hour (Nicoderm CQ) Place 1 Patch over 24 hours topically on the skin daily - remove old patch first 28 Patch 06/01/2024 4 Discontinue d(Medicatio n List Clean Up) amLODIPine Besylate 5 MG Oral Tablet (Norvasc) Take 1 Tablet by mouth in the morning. 30 Tablet 06/01/2024 4 Discontinue d(Refill) oxyCODONE HCl 5 MG Oral Tablet (Oxy IR) Take 1 Tablet by mouth every 4 hours as needed for Pain, Severe for up to 4 doses. 4 Tablet 05/31/2024 Discontinue d(Medicatio n List Clean Up) documented as of this encounter (statuses as of 06/13/2024) Active Problems Problem Noted Date Diagnosed Date [...] Hypertension 08/17/2016 Bipolar 1 disorder Overview: Dr Neal, [facility] Tobacco abuse documented as of this encounter (statuses as of 06/13/2024) Resolved Problems Problem Noted Date Diagnosed Date [...] as of this encounter (statuses as of 06/13/2024) Immunizations Name Administration Dates Next Due COVID-19 mRNA, LNP-s, No Pre serve, 2-Dose Series (Pfizer) 08/07/2021 TDAP (age 10 and older)(Boostrix) 02/25/2019 documented as of this encounter Social History Tobacco Use Types Packs/Day Years Used Date Smoking Tobacco: Every Day Cigarettes 0.8 19 Passive Smoke Exposure: Current Smokeless Tobacco: Never Tobacco Cessation:Ready to Q uit: No; Counseling Given: Not Answered Alcohol Use Standard Drinks/Week Comments Not Currently [...] Sign Reading Time Taken Comments Blood Pressure 116/94 06/13/2024 11:11 AM EDT Pulse 86 06/13/2024 11:11 AM EDT Temperature 37.1 C (98.7 F) 06/13/2024 11:11 AM E DT Respiratory Rate 16 06/13/2024 11:11 AM EDT Oxygen Saturation 96% 06/13/2024 11:11 AM EDT Inhaled Oxygen Concentration - - Weight 84.6 kg (186 lb 6.4 oz) 06/13/2024 11:11 AM EDT Height 165.1 cm (5' 5") 06/13/2024 11:11 AM EDT Body Mass Index 31.02 06/13/2024 11:11 AM EDT documented in this encounter Functional Status Functional Status Response [...] No 05/29/2024 documented as of this encounter Progress Notes * Angelic Pereira, - 06/13/2024 11:17 AM EDT Subjective: Brigette Vazquez is a 38 year old female. Chief Complaint Patient presents with Hospital Follow-Up Patient is here today for a hospital follow up. Patient would like to discuss BP medication. Patient states she was told in the hospital she has bulging at C3 and C4 which they felt was causing migraines. HPI: 38 year old female here today for ER follow-up she went there for migraines, and appeared likeshe is having a stroke. She had R facial droop, and R side numbness. Lasted for three days. Her neuroimaging was normal, this included CT and CTA. Did MRI and was told she has disc herniation. She was hospitalized in [place] 05/29- She had norvasc added for BP control. Sent home with steroid taper for headache. She follows with Su[facility] from [facility] and is on Vraylar, Minipress, Vyvanse, ativan, and trazodone as well. For her blood pressure she is on norvasc 5 mg --this is controlled today. She is on lamictal for seizures --[facility] , has lost to follow-up with neurology. I did place another referral. There was thought that the numbers on the R hand, was due to C4-C 5 bulging disc. She would be interested in seeing pain management. Ongoing stress with taking care of her handicapped brother n law. This seems stress for her. Declines flu vaccine today. PHM: Patient Active Problem List Diagnosis Bipolar 1 disorder (HCC) Tobacco abuse Opioid dependence in remission (HCC) Generalized anxiety disorder Post-traumatic stress disorder, unspecified Chronic hypokalemia Infection of tooth Hypertension Alcoholic hepatitis without ascites Fatty liver Heart failure (HCC) Major depressive disorder with single episode Alcohol abuse with intoxication, unspecified (HCC) Family circumstance Pelvic pain in female Food insecurity Intractable migraine with aura without status migrainosus ADHD (attention deficit hyperactivity disorder), combined type Current Outpatient Medications Medication Sig Dispense Refill Blood Pressure Monitoring (ADULT BLOOD PRESSURE CUFF LG) KIT Use daily for blood pressure checks 1 Kit 0 Proventil HFA 108 (90 Base) MCG/ACT Inhalation Aerosol Solution Inhale by mouth 2 Puffs every 4 hours as needed for Congestion or Wheezing. 18 g 0 Folic Acid 400 MCG Oral Tablet DAILY IN THE MORNING Multivitamin Adult Oral Tablet Take 1 Tablet by mouth in the morning. Thiamine HCl 100 MG Oral Tablet (vitamin B-1) Take 1 Tablet by mouth in the morning. EpiPen 2-Dorian 0.3 MG/0.3ML Injection Solution Auto-injector For a severe reaction: Place orange end against the outer thigh, press firmly, hold in place for 10 seconds and go to the Emergency room. 2 Each 2 Cariprazine HCl 1.5 MG Oral Capsule (Vraylar) Take 1 Capsule by mouth in the morning. Prazosin HCl 1 MG Oral Capsule (Minipress) Take 1 Capsule by mouth at bedtime. lamoTRIgine 25 MG Oral Tablet (LaMICtal) Lamotrigine [...] stop the medication and call your doctor. (Patient taking differently: Take 1 Tablet by mouth in the morning and 1 Tablet at noon and 1 Tablet before bedtime. Lamotrigine (Lamictal) 25 mg tablets. Take this [...] stop the medication and call your doctor. .) 140 Tablet 0 traZODone HCl 50 MG Oral Tablet (Desyrel) Take 1 Tablet by mouth at bedtime. LORazepam 1 MG Oral Tablet (Ativan) Take 1 Tablet by mouth in the morning and 1 Tablet before bedtime. Lisdexamfetamine Dimesylate 20 MG Oral Capsule (Vyvanse) Take 1 Capsule by mouth in the morning. Acetaminophen 325 MG Oral Tablet (Tylenol) Take 2 Tablets by mouth every 6 hours as needed for Pain, Mild or Pain, Moderate. 30 Tablet 0 amLODIPine Besylate 5 MG Oral Tablet (Norvasc) Take 1 Tablet by mouth in the morning. 30 Tablet 0 Dicyclomine HCl 10 MG Oral Capsule (Bentyl) Take 1 Capsule by mouth 4 times a day before meals and at bedtime. (Patient not taking: Reported on 06/13/2024) No current facility-administered medications for this visit. Review of patient's allergies indicates: Allergen Reactions Justicia Adhatoda ([place] Nut Tree) [Justicia Adhatoda] Other reaction(s): Anaphylaxis Morphine Hives Other reaction(s): Hives Mushroom Extract Complex Hives mushrooms Other reaction(s): Hives Penicillins Unknown Told as a child Other reaction(s): Difficulty Breathing Peanut Butter Flavor Hives Peanuts, nuts Objective: BP 116/94 | Pulse 86 | Temp 37.1 C (98.7 F) (Tympanic) | Resp 16 | Ht 1.651 m (5' 5") | Wt 84.6kg (186 lb 6.4 oz) | LMP (LMP Unknown) | SpO2 96% | BMI 31.02 kg/m | BSA 1.97 m Physical Exam: General: alert, healthy, and no distress Heart: regular rate & rhythm, no murmur, and no gallops Lungs: chest symmetric with normal AP diameter, no chest deformities noted, no chest wall tenderness, lungs clear to auscultation Abdomen: abdomen soft, non-tender, normal bowel sounds, and no masses or organomegaly Extremities: no edema Neuro Exam: alert & oriented x 3 with fluent speech, no focal motor/sensory deficits, gait normal, reflexes normal and symmetric ASSESSMENT/PLAN: Cervical disc herniation (Primary) Will refer to see if she would be a candidate for pain injection to help with headaches. - PAIN MEDICINE REFERRAL OP Hypertension - ALBUMIN / CREATININE RATIO, URINE; Future; Expected date: 06/13/2024 - amLODIPine Besylate 5 MG Oral Tablet (Norvasc); Take 1 Tablet by mouth in the morning. - BASIC METABOLIC PANEL; Future; Expected date: 06/13/2024 - HEPATIC FUNCTION PANEL; Future; Expected date: 06/13/2024 Intractable migraine with aura without status migrainosus To see neurology as well. Opioid dependence in remission (HCC) Off suboxone, Hold on opiates. Follow Up: Return in about 6 months (around 12/12/2024) for Labs Today. | For: Labs Today | Check-out note: Neurology Pain medicine. Angelic Pereira DO documented in this encounter Nursing Notes * Shantell Leblanc LPN - 06/13/2024 11:14 AM EDT The patient has been properly identified by confirmation of name and date of . Chief Complaint Patient presents with Hospital Follow-Up Patient is here today for a hospital follow up. Patient would like to discuss BP medication. Patient states she was told in the hospital she has bulging at C3 and C4 which they felt was causing migraines. documented in this encounter Plan of Treatment Upcoming Encounters Date Type Department Care Team (Late st Contact Info) Description 08/15/2024 8:00 AM EST Office Visit [facility] [address] [place] [id number] Polly Carias PA-C [address] [place] [phone] 12/23/2024 10:10 AM EDT Office Visit [facility] [address] [facility] [phone] Angelic Pereira DO [address] [place] [address] Pending Results Name Type Priority Associated Diagnoses Date /Time ALBUMIN / CREATININE RATIO, URINE Lab Routine Hypertension 06/13/2024 12:18 PM EDT BASIC METABOLIC PANEL Lab Routine Hypertension 06/13/2024 11:53 AM EDT HEPATIC FUNCTION PANEL Lab Routine Hypertension 06/13/2024 11:53 AM EDT Scheduled Orders Name Type Priority Associated Diagnoses Orde r Schedule ALBUMIN / CREATININE RATIO, URINE Lab Routine Primary hypertension Expected: 06/13/2024, Expires: 06/13/2025 BASIC METABOLIC PANEL Lab Routine Primary hypertension Expected: 06/13/2024 (Approximate), Expires: 06/13/2025 HEPATIC FUNCTION PANEL Lab Routine Primary hypertension Expected: 06/13/2024 (Approximate), Expires: 06/13/2025 Scheduled Procedures Name Priority Associated Diagnoses Date/Ti me ESOPHAGOGASTRODUODENOSCOPY ( EGD), FLEXIBLE, TRANSORAL, DIAGNOSTIC Recall Portal hypertension (HCC) COLONOSCOPY FLEXIBLE PROXIMAL DIAGNOSTIC Recall History of colon polyps Scheduled Referrals Name Type Priority Associated Diagnoses Orde r Schedule PAIN MEDICINE REFERRAL OP Referral Within 10 days (routine) Cervical disc herniation Ordered: 06/13/2024 ADULT NEUROLOGY REFERRAL OP Referral Within 10 days (routine) Intractable migraine with aura without status migrainosus Seizure disorder, simple partial, 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) Ordered: 06/13/2024 Health Maintenance Due Date Last Done Comments Albumin/Creatinine Ratio 11/26/2005 *NEPHROLOGY REFERRAL DUE TO RESISTANT HTN 01/01/2024 Influenza Vaccine (FLU shot) (#1) 2024 GFR 05/29/2025 05/29/2024, 11/15, 07/14/2023, Additional history exists Depression Monitoring 06/13/2025 06/13/2024 Pneumococcal Vaccine: Pediatrics (0 to 5 Years) and At-Risk Patients (6 to 64 Years) (1 of 2 - PCV) 06/13/2025 Postponed from 11/26/1993 (Patient Declined After Education) Diabetes Screening 05/29/2027 05/29/2024, 1 , 12/04/2023, Additional history exists DTap/Tdap Vaccines (2 - [...] as of this encounter Visit Diagnoses Diagnosis Cervical disc herniation- Primary Displacement of cervical intervertebral disc without myelopathy Primary hypertension Unspecified essential hypertension Intractable migraine with aura without status migrainosus Migraine with aura, with intractable migraine, so stated, without mention of status migrainosus Opioid dependence in remission (HCC) Opioid type dependence, in remission Seizure disorder, simple partial, 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
--- OUTSIDE RECORDS SUMMARY | 2024-06-29 06:51 | External Medical Summary | Summary of Care ---
Author Name Unknown Organization [facility] Address [address] [place] [address] Phone [phone] Care Team Providers Care Solar Field Service Technician Name Role Phone RyanAngelic weldon [place] DELGADILLO Primary Care Provider + [phone] Reason for Visit * Reason Comments Outpatient Testing Encounter Details Date Type Department Care Team (Late st Contact Info) Description 06/13/2024 11:50 AM EDT [facility] [address] [place] [address] [facility] [address] [place] [address] Hypertension Allergies Active Allergy Reactions Criticality Noted Date [...] Active amLODIPine Besylate 5 MG Oral Tablet (Norvasc)Indication s:Hypertension Take 1 Tablet by mouth in the morning. 30 Tablet 06/13/2024 Active documented as of this encounter (statuses [...] No 05/29/2024 documented as of this encounter Plan of Treatment Upcoming Encounters Date Type Department Care Team (Late st Contact Info) Description 08/15/2024 8:00 AM EST Office Visit [facility], [facility] [address] [place] [phone] Polly Carias PA-C [address] [place] [phone] 12/23/2024 10:10 AM EDT [facility] [address] [facility] [phone] Angelic Pereira DO [address] [place] [facility] [place] [address] Pending Results Name Type Priority Associated Diagnoses Date /Time BASIC METABOLIC PANEL Lab Routine Hypertension 06/13/2024 11:53 AM EDT HEPATIC FUNCTION PANEL Lab Routine Hypertension 06/13/2024 11:53 AM EDT Scheduled Procedures Name Priority Associated Diagnoses Date/Ti [...] as of this encounter Visit Diagnoses Diagnosis Hypertension Unspecified essential hypertension documented in this encounter Advance Directives * [...] Advance Directives occurred with: Patient Care Teams Solar Field Service Technician Relationship Specialty Start Date End Date Angelic Pereira DO [address] [place] [facility] [place] [address] PCP - General Family Medicine 01/20/18 documented as of this encounter
--- OUTSIDE RECORDS SUMMARY | 2024-06-29 06:51 | External Medical Summary | Summary of Care ---
Author Name Unknown Organization [facility] Address [address] [place] [address] Phone [phone] Care Team Providers Care Play Therapist Name Role Phone YashAngelic urbina [place] DELGADILLO Primary Care Provider [phone] Reason for Visit * Reason Comments Stroke * Auth/Cert Specialty Diagnoses / Procedures Referred By Contac t Referred To Contact [facility] [address] [place] [address] Phone: [phone] Emergency Medicine [address] [address] Referral ID Status Reason Start Date Expiration Date Visits Re quested Visits Authorized [id number] Encounter Details Date Type Department Care Team (Late st Contact Info) Description 05/29/2024 8:18 PM EDT - 05/31/2024 10:26 AM EDT Emergency 3B [facility] 3rd Floor [address] [place] [address] Nithin De La Rosa DO [address] [place] [address] Kemi Garrison MD [address] [place] [id number] Mathew Harris MD [address] [place] [address] [place] [address] Pt Handout (on AVS) Discharge Disposition: Home - Self Care Allergies Active Allergy Reactions Criticality Noted Date Comments Liliana Hollingsworthatoda High 01/02/2023 Other reaction(s): Anaphylaxis Morphine Hives High 12/30/2012 Other reaction(s): Hives Mushroom Extract Complex Hives High 05/21/2015 mushrooms Other reaction(s): Hives Peanut Butter Flavor Hives 05/21/2015 Peanuts, nuts Penicillins Unknown High 12/30/2012 Told as a child Other reaction(s): Difficulty Breathing documented as of this encounter (statuses as of 05/31/2024) Medications Medication Sig Dispensed Refills Start Date End Date Status Blood Pressure Monitoring (ADULT BLOOD PRESSURE CUFF LG) KITIndications:H TN, goal below 130/80 Use daily for blood pressure checks 1 Kit 01/20/2018 Active Proventil HFA 108 (90 Base) MCG/ACT Inhalation Aerosol SolutionIndicati ons:Acute cough,Acute bronchitis, antibiotics not indicated Inhale by [...] or Pain, Moderate. 30 Tablet 05/31/2024 Active Nicotine 21 MG/24HR Transdermal Patch 24 Hour (Nicoderm CQ) Place 1 Patch over 24 hours topically on the skin daily - remove old patch first 28 Patch 06/01/2024 Active predniSONE 20 MG Oral Tablet (Deltasone) Take 2 Tablets by mouth daily for 3 days, THEN 1.5 Tablets daily for 3 days, THEN 1 Tablet daily for 3 days, THEN 0.5 Tablet daily for 3 days. 15 Tablet 05/31/2024 Active amLODIPine Besylate 5 MG Oral Tablet (Norvasc) Take 1 Tablet by mouth in the morning. 30 Tablet 06/01/2024 Active oxyCODONE HCl 5 MG Oral Tablet (Oxy IR) Take 1 Tablet by mouth every 4 hours as needed for Pain, Severe for up to 4 doses. 4 Tablet 05/31/2024 Active ibuprofen (MOTRIN) 800 MG TabletIndication s:Tooth pain Take 1 Tab by mouth 3 times a day. with food for pain 30 Tab 1 01/07/2020 4 Discontinued diazePAM 5 MG Oral Tablet (Valium) Take 1 tab 30 minutes prior to MRI, 1 tab at facility if needed then additional tab if needed 3 Tablet 09/15/2023 4 Discontinued traMADol HCl 50 MG Oral Tablet (Ultram)Indicati ons:Pelvic pain in female Take 1 Tablet by mouth every 6 hours as needed for Pain, Severe. 24 Tablet 12/14/2023 4 Discontinued traMADol HCl 50 MG Oral Tablet (Ultram) Take 1 Tablet by mouth every 6 hours as needed for Pain, Severe. 24 Tablet 12/23/2023 4 Discontinued oxyCODONE-Acetam inophen 5-325 MG Oral Tablet (Percocet) Take 1 Tablet by mouth every 4 hours as needed for Pain, Severe. 28 Tablet 12/27/2023 4 Discontinued traMADol HCl 50 MG Oral Tablet (Ultram) Take 1 Tablet by mouth every 6 hours as needed for Pain, Severe. 24 Tablet 1 01/06/2024 4 Discontinued documented as of this encounter (statuses as of 05/31/2024) Active Problems Problem Noted Date Diagnosed Date [...] Hypertension 08/17/2016 Bipolar 1 disorder Overview: [facility] Tobacco abuse documented as of this encounter (statuses as of 05/31/2024) Resolved Problems Problem Noted Date Diagnosed Date [...] as of this encounter (statuses as of 05/31/2024) Immunizations Name Administration Dates Next Due COVID-19 mRNA, LNP-s, No Pre serve, 2-Dose Series ([facility]) 08/07/2021 TDAP (age 10 and older)(Boostrix) 02/25/2019 [...] 02/15/2024 Does the household have a re lar source of income? (Household - for ages [...] Sign Reading Time Taken Comments Blood Pressure 162/109 05/31/2024 7:25 AM EDT RN aware Pulse 72 05/31/2024 7:25 AM EDT Temperature 36.4 C (97.5 F) 05/31/2024 7:25 AM ED T Respiratory Rate 18 05/31/2024 7:25 AM EDT Oxygen Saturation 95% 05/31/2024 7:25 AM EDT Inhaled Oxygen Concentration - - Weight 84.2 kg (185 lb 9.6 oz) 05/31/2024 5:07 A M EDT Height 165.1 cm (5' 5") 05/29/2024 11:39 PM EDT Body Mass Index 30.89 05/29/2024 11:39 PM EDT documented in this encounter Functional Status [...] No 05/29/2024 documented as of this encounter Discharge Summaries * Mathew Harris MD - 05/31/2024 8:26 AM EDT Images from the original note were not included. [address] [address] Admission Date: 05/29/2024 Discharge Date: 05/31/2024 RECOMMENDED TO DO FOR NEXT PROVIDER(S): Recheck bp and adjust meds as needed Consider neuro referral for migraine management REASON(S) FOR MEDICATION CHANGE(S): We added norvasc for BP We added a prednisone taper for headache Oxy prn pain (4 tabs) Nicotine patch DISPOSITION ON DISCHARGE: home Active Hospital Problems Diagnosis Intractable migraine with aura without status migrainosus ADHD (attention deficit hyperactivity disorder), combined type Fatty liver Generalized anxiety disorder Post-traumatic stress disorder, unspecified Opioid dependence in remission (HCC) Tobacco abuse Bipolar 1 disorder (HCC) Resolved Hospital Problems Diagnosis Date Resolved *Principal Diagnosis - Hypertensive urgency 05/31/2024 ADMISSION HISTORY & PHYSICAL EXAM (focused): PRESENTING PROBLEM: Stroke like symptoms with right-sided facial drooping HPI: Brigette Vazquez is a 38 year old female with a PMH that includes complex migraines, seizure disorder, hypertension, JEAN, ADHD, bipolar disorder, IBS, tobacco use, alcoholic hepatic steatosis who presented to [facility] ED for evaluation of stroke. Patient states that she was in her usual state of health today. She was cleaning her home today after which she developed a right-sided facial droop and severe frontal lobe headache. Symptoms were abrupt and began at approximately 6:30 PM tonight. Patient's blood pressure was checked before her arrival and it was 170s/120s. She took 5 tablets of her minipress 1 mg tablets to help decrease her blood pressure. Patient had similar symptoms 11 days ago for which she was evaluated at [place]. 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 She had increase of seizures that day and was ultimately d/c'd on lamictal. Code stroke was initiated in the ED. Please see detailed consultation note by Neurology colleague, Dr. Appiah. Fortunately, today's CT and CTA were unremarkable. Migraine cocktail was given in the ED with limited effectiveness per patient. Of note, patient no longer takes any of her antihypertensives that she took in the past. She stopped taking her amlodipine 5 mg, irbesartan 150 mg daily, hctz 12.5 mg daily and labetalol 100 mg bid after she lost a considerable amount of weight. She does feel as her Vyvanse causes her heart palpitations and she's considering possibly switching to Strattera to alleviate these unpleasant side effects and possible adverse reactions such as high blood pr essure. She denies any recent sick contacts, fevers or chills. Denies any chest pain, palpitations, presyncope or syncopal episodes. Denies any respiratory symptoms although gets coughing spells in the morning that irritates her throat. Smoking cigarettes appear to be contributory here. Denies any changes to her appetite, abdominal pain, nausea or vomiting. Denies changes to bowel or bladder habits. She continues to smoke cigarettes 0.8 packs/day. Occasionally drinks ETOH and smokes marijuana. Denies any changes to her prescription medications recently. Hospital medicine was asked to admit the patient for intractable headaches and hypertensive urgency. Physical Exam Most Recent Vital Signs: BP: 145 mmHg/107 mmHg (05/29/242299) Pulse: 91 (05/29/242299) Resp: 20 (05/29/242299) Temp: 36.89 C (05/29/242019) Temp Summary: Temp Min: 36.9 C (98.4 F) Max: 36.9 C (98.4 F) SpO2: 95 % (05/29/242299) O2 flow rate: Supplemental O2 Delivery: Room Air, None (05/29/242019) Constitutional: (+) moderate pain HEENT: normal: normocephalic, atraumatic; no masses, tenderness, or adenopathy Eyes: PERRLA, sclera and conjunctiva normal Neck: supple, normal range of motion CV: normal rate and rhythm, no murmur, gallops or rub Chest: normal respiratory effort, lungs clear to auscultation and percussion Abdomen: normal: soft, bowel sounds normal, no masses, tenderness or organomegaly Musculoskeletal: No limitations or weakness with the exception of bilateral tightness of trapezius muscles Extremities: no clubbing, cyanosis, or edema, otherwise grossly normal, warm, and dry Skin: warm, dry: Neuro: alert, oriented to person, place, and time, normal mental status exam, sensory normal Psych: normal mood and affect, nonsuicidal, judgement normal, memory normal Assessment and Plan IMPRESSION: Principal Problem: Intractable migraine with aura without status migrainosus Active Problems: Tobacco abuse Hypertensive urgency Generalized anxiety disorder Post-traumatic stress disorder, unspecified Fatty liver ADHD (attention deficit hyperactivity disorder), combined type Resolved Problems: * No resolved hospital problems. * DIFFERENTIAL AND PLAN: Brigette Vazquez is a 38 year old female with a PMH that includes complex migraines, seizure disorder,hypertension, JEAN, ADHD, tobacco use, alcoholic hepatic steatosis who is being admitted for intractable headache and hypertensive urgency. Intractable migraine with aura without status migrainosus Right hemiparesis Mild right hand weakness and sensory changes noted on exam - possibly related to C4-C5 bulging discs NIHSS [address] and CTA head/neck unremarkable Recent MRI brain revealed right mesial temporal lobe sclerosis - hold on repeating MRI imaging Neuro checks q4h S/p migraine cocktail in the ED Dilaudid 0.5 mg IV x1 Multimodal pain regimen with acetaminophen, ketorolac and hydromorphone for breakthrough pain Hypertensive urgency SBP 170s / DBP 120s on admission May be d/t complex migraine vs medication noncompliance. Previously on Norvasc 5 mg daily, HCTZ 12.5 mg daily, labetalol 100 mg b.i.d EKG reveals NSR with incomplete RBBB; Qtc 477. 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 CT and CTA head and neck done in the ED was unremarkable Status post migraine cocktail and Dilaudid x1 in the ED No nausea vomiting diarrhea fevers chills night sweats chest pain or shortness of breath Patient reports her paresthesias and weakness has resolved but her headache persists and remains severe. Patient received IV Solu-Medrol and later transitioned to oral prednisone. Patient states her headache is better and she would like to go home. Her blood pressure remained elevated and we started Norvasc BP 162/109 Comment: RN aware | Pulse 72 | Temp 36.4 C (97.5 F) (Temporal Artery) | Resp 18 | Ht1.651 m (5' 5") | Wt 84.2 kg (185 lb 9.6 oz) | LMP (LMP Unknown) | SpO2 95% | BMI 30.89 kg/m | BSA 1.97 m Exam: General: alert, healthy, and no distress Heart: regular rate & rhythm, no murmur, and no gallops Lungs: chest symmetric with normal AP diameter, no chest deformities noted, no chest wall tenderness, lungs clear to auscultation Abdomen: abdomen soft, non-tender, no masses, no hepatosplenomegaly, no rebound or guarding Extremities: no edema, no clubbing, no cyanosis Operations & Procedures: none Complications: none applicable Significant Lab and Imaging Results: Lab results within last 7 days (see chart for full results) Units 05/29/242027 HGB g/dL 16.0* HCT % 46.5* WBC K/uL 15.57* PLT K/uL 312 Lab results within last 7 days (see chart for full results) Units 05/29/242027 SODIUM mmol/L 138 POTASSIUM mmol/L 3.8 CHLORIDE mmol/L 102 CO2 mmol/L 18* BUN mg/dL 6 CREATININE mg/dL 0.8 Results Pending at Discharge: Lab Results Pending at Discharge: None MEDICATION UPDATES AT DISCHARGE START taking these medications INSTRUCTIONS Acetaminophen 325 MG Tablet Commonly known as: Tylenol Take 2 Tablets by mouth every 6 hours as needed for Pain, Mild or Pain, Moderate. amLODIPine 5 MG Tablet Commonly known as: Norvasc Start taking on: June 01, 2024 Take 1 Tablet by mouth in the morning. Nicotine 21 MG/24HR Patch Commonly known as: Nicoderm CQ Start taking on: June 01, 2024 Place 1 Patch over 24 hours topically on the skin daily. oxyCODONE 5 MG immediate release tablet Commonly known as: Oxy IR Take 1 Tablet by mouth every 4 hours as needed for Pain, Severe for up to 4 doses. predniSONE 20 MG Tabs Tablet Commonly known as: Deltasone Start taking on: May 31, 2024 Take 2 Tablets by mouth daily for 3 days, THEN 1.5 Tablets daily for 3 days, THEN 1 Tablet daily for 3 days, THEN 0.5 Tablets daily for 3 days. CHANGE how you take these medications INSTRUCTIONS lamoTRIgine 25 MG Tablet Commonly known as: LaMICtal What changed: how much to take how to take this when to take this Lamotrigine (Lamictal) 25 mg tablets. Take this [...] stop the medication and call your doctor. CONTINUE taking these medications INSTRUCTIONS Adult Blood Pressure Cuff Lg Kit Use daily for blood pressure checks Ativan 1 MG Tablet Generic drug: LORazepam Take 1 Tablet by mouth in the morning and 1 Tablet before bedtime. dicyclomine 10 MG Capsule Commonly known as: Bentyl Take 1 Capsule by mouth 4 times a day before meals and at bedtime. EPINEPHrine (anaphylaxis) 0.3 MG/0.3ML Soaj injection For a severe reaction: Place orange end against the outer thigh, press firmly, hold in place for 10seconds and go to the Emergency room. folic acid 400 MCG Tablet DAILY IN THE MORNING Lisdexamfetamine Dimesylate 20 MG Capsule Commonly known as: Vyvanse Take 1 Capsule by mouth in the morning. Minipress 1 MG Capsule Generic drug: prazosin Take 1 Capsule by mouth at bedtime. Multivitamin Adult Tabs Take 1 Tablet by mouth in the morning. Proventil HFA 108 (90 Base) MCG/ACT Aers Inhale by mouth 2 Puffs every 4 hours as needed for Congestion or Wheezing. THIAMINE 100 MG Tablet Commonly known as: vitamin B-1 Take 1 Tablet by mouth in the morning. traZODone 50 MG Tablet Commonly known as: Desyrel Take 1 Tablet by mouth at bedtime. Vraylar 1.5 MG Capsule Generic drug: Cariprazine HCl Take 1 Capsule by mouth in the morning. STOP taking these medications Ibuprofen 800 MG Tablet Commonly known as: Motrin oxyCODONE-acetaminophen 5-325 mg per tab Commonly known as: Percocet traMADol 50 MG Tablet Commonly known as: Ultram SCHEDULED FOLLOW-UP: Future Appointments This patient does not currently have any appointments scheduled. Other Information Indwelling Devices: LINES ALL Duration Peripheral Line Left;Upper Arm 20 Gauge 1 day Vital Signs (last recorded): Most Recent Systolic BP: 162 mmHg (05/31/24724) Most Recent Diastolic BP: 109 mmHg (05/31/24724) Pulse: 72 (05/31/24724) Resp: 18 (05/31/24724) Most Recent Temperature: 36.39 C (05/31/24724) Weight: 84.2 kg (185 lb 9.6 oz) (05/31/24506) SpO2: 95 % (05/31/24724) Allergies: Justicia adhatoda (malabar nut tree) [justicia adhatoda], Morphine, Mushroom extract complex, Penicillins, and Peanut butter flavor Activity: as tolerated Diet: Orders Placed This Encounter Procedures Regular Diet Code Status: Full Code Condition on Discharge: stable Isolation status: None Cognition: normal HOSPITAL CONSULTS ORDERED: None REFERRING PHYSICIAN: REF: SELF NO STRE[address] ADDRESS AVAILABLE PRIMARY CARE PROVIDER: PCP: Angelic Pereira, DO [address] [facility] [place] [address] (office) [phone] (fax) Note: To contact a physician responsible for this patients hospital care, please call [employer] [phone]. I spent a total of 34 minutes coordinating, documenting, and providing care for this patient excluding time spent in the performance of separately billed services. documented in this encounter Discharge Instructions * Discharge Instr - AVS* Mathew Harris MD - 05/31/2024 8:30 AM EDT Discharge Date: 05/31/2024 The information below provides you with the instructions and the list of medications you need to betaking following discharge from the hospital. If you have any questions, please ask before leaving. If you have questions after leaving, you can reach us at the numbers below. YOUR HOSPITAL PROVIDERS: Discharging Provider: Mathew Harris MD Provider Department: Hospital Medicine To reach this Provider Thursday through Thursday (8:00 AM to 4:30 PM) for any questions or test results: Call [phone] For after-hours concerns: Call [phone] and have your provider paged, or the provider radio communications superintendent for the Department of Hospital Medicine paged. Please note, the discharging provider will not be able to provide you with any medications refills.Please discuss these with your primary care provider. Worsening Symptoms: If you have new symptoms, or your symptoms get worse, please contact your Discharge Provider or Primary Care Provider (PCP). If these providers are not available, you can go to your local [facility] or Urgent Care Clinic during their business hours. In an EMERGENCY situation: Call 911 or go to the nearest emergency room. A BRIEF SUMMARY OF YOUR HOSPITAL STAY: You came to the hospital with: complaint of stroke like symptoms Your main diagnosis at discharge was: hypertensive urgency, complicated migraine Operations & Procedures performed: none Complications: none applicable Inpatient test results that are pending at discharge: none Advance Directive Documented: Advance Directive Does the Patient have an Advance Directive? No YOUR FOLLOW UP APPOINTMENTS: Primary Care Provider Information: PCP: Angelic Pereira DO [address] [place] [address] [place] [address] (office) [phone] (fax) An appointment was requested with your PCP (Angelic Pereira DO) within 3 days. (Please take this form to this visit with your primary care physician.) You need the following studies in the future: none INSTRUCTIONS: Diet: Orders Placed This Encounter Procedures Regular Diet Activity: No restrictions and As tolerated We added a prednisone taper for your headache We added norvasc (amlodipine) for blood pressure We added a nicotine patch We added a short course of oxycodone Additional Instructions: - Call your primary care physician or seek medical attention if your symptoms worsen. documented in this encounter Progress Notes * Tucker Cai [facility] - 05/31/2024 8:47 AM EDT PHARMACY DISCHARGE MEDICATION RECONCILIATION REVIEW [address] [address] Name: Brigette Vazquez Location: [facility] Date: 05/31/2024 Time: 8:47 AM This discharge medication reconciliation was reviewed by a pharmacist and no corrections or interventions were required. * Mathew Harris MD - 05/30/2024 10:44 AM EDT Images from the original note were not included. [facility] INTERVAL HISTORY: 38 year old female with a PMH that includes complex migraines, seizure disorder, hypertension, JEAN,ADHD, bipolar disorder, IBS, tobacco use, alcoholic hepatic steatosis admitted for intractable headache, hypertensive urgency and right hemiparesis. CT and CTA head and neck done in the ED was unremarkable Status post migraine cocktail and Dilaudid x1 in the ED No nausea vomiting diarrhea fevers chills night sweats chest pain or shortness of breath Patient reports her paresthesias and weakness has resolved but her headache persists and remains severe. Objective Physical Exam Most Recent Vital Signs: BP: 133 mmHg/78 mmHg (05/30/24 1035) Pulse: 80 (05/30/24 1035) Resp: 18 (05/30/24 1035) Temp: 36 C (05/30/24 0720) Temp Summary: Temp Min: 36 C (96.8 F) Max: 36.9 C (98.4 F) SpO2: 94 % (05/30/24 07) O2 flow rate: Supplemental O2 Delivery: Room Air, None (05/30/24 0830) Physical Exam Vitals and nursing note reviewed. Exam conducted with a pharmacy technician trainee present. Constitutional: General: She is in acute distress. Appearance: Normal appearance. Cardiovascular: Rate and Rhythm: Normal rate and regular rhythm. Pulses: Normal pulses. Heart sounds: Normal heart sounds. No murmur heard. No friction rub. No gallop. Pulmonary: Effort: Pulmonary effort is normal. No respiratory distress. Breath sounds: Normal breath sounds. No wheezing, rhonchi or rales. Abdominal: General: Bowel sounds are normal. Palpations: Abdomen is soft. Musculoskeletal: Right lower leg: No edema. Left lower leg: No edema. Skin: General: Skin is warm and dry. Capillary Refill: Capillary refill takes less than 2 seconds. Neurological: General: No focal deficit present. Mental Status: She is alert. Peripheral Line Left;Upper Arm 20 Gauge (Active) Number of days: 1 STUDIES: Encounter Orders Labs and other studies reviewed with pertinent findings noted below: Lab results within last 7 days (see chart for full results) Units 05/29/242027 HGB g/dL 16.0* HCT % 46.5* WBC K/uL 15.57* PLT K/uL 312 Lab results within last 7 days (see chart for full results) Units 05/29/242027 SODIUM mmol/L 138 POTASSIUM mmol/L 3.8 CHLORIDE mmol/L 102 CO2 mmol/L 18* BUN mg/dL 6 CREATININE mg/dL 0.8 Assessment and Plan IMPRESSION : Principal Problem: Intractable migraine with aura without status migrainosus Active Problems: Tobacco abuse Hypertensive urgency Generalized anxiety disorder Post-traumatic stress disorder, unspecified Fatty liver ADHD (attention deficit hyperactivity disorder), combined type Resolved Problems: * No resolved hospital problems. * DIFFERENTIAL AND PLAN: 38 year old female with a PMH that includes complex migraines, seizure disorder, hypertension, JEAN,ADHD, bipolar disorder, IBS, tobacco use, alcoholic hepatic steatosis admitted for intractable headache, hypertensive urgency and right hemiparesis Complicated migraine Suspect patient's headache and hypertensive urgency are related to complicated migraine Start Solu-Medrol to decrease inflammation for headache. We will give 40 mg x 1 today Start oral prednisone tomorrow a.m. Toradol p.r.n. Acetaminophen prn Hypertensive urgency Avoid tobacco, nicotine patch Blood pressure has improved Continue prazosin ADHD/PTSD/anxiety/bipolar Continue prazosin, Vraylar, tramadol, Lamictal, p.r.n. Ativan Hold prior to admission Vyvanse due to hypertension Opioid dependence in remission Stable Currently not on outpatient narcotics Elevated LFTs History of alcoholic fatty liver in the EHR LFTs improved when compared to last year Continue MVI and thiamine PHARMACOLOGIC VTE PROPHYLAXIS: Enoxaparin CODE STATUS: Full Code EXPECTED DISCHARGE DATE: No information available I spent a total of 51 minutes coordinating, documenting, and providing care for this patient excluding time spent in the performance of separately billed services or time spent by another provider/QHP. documented in this encounter H&P Notes * Sera Vann CRNP - 05/29/2024 11:19 PM EDT Images from the original note were not included. [facility] PRESENTING PROBLEM: Stroke like symptoms with right-sided facial drooping HPI: Brigette Vazquez is a 38 year old female with a PMH that includes complex migraines, seizure disorder, hypertension, JEAN, ADHD, bipolar disorder, IBS, tobacco use, alcoholic hepatic steatosis who presented to [facility] ED for evaluation of stroke. Patient states that she was in her usual state of health today. She was cleaning her home today after which she developed a right-sided facial droop and severe frontal lobe headache. Symptoms were abrupt and began at approximately 6:30 PM tonight. Patient's blood pressure was checked before her arrival and it was 170s/120s. She took 5 tablets of her minipress 1 mg tablets to help decrease her blood pressure. Patient had similar symptoms 11 days ago for which she was evaluated at [place]. 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 She had increase of seizures that day and was ultimately d/c'd on lamictal. Code stroke was initiated in the ED. Please see detailed consultation note by Neurology colleague, Dr. Appiah. Fortunately, today's CT and CTA were unremarkable. Migraine cocktail was given in the ED with limited effectiveness per patient. Of note, patient no longer takes any of her antihypertensives that she took in the past. She stopped taking her amlodipine 5 mg, irbesartan 150 mg daily, hctz 12.5 mg daily and labetalol 100 mg bid after she lost a considerable amount of weight. She does feel as her Vyvanse causes her heart palpitations and she's considering possibly switching to Strattera to alleviate these unpleasant side effects and possible adverse reactions such as high blood pressure. She denies any recent sick contacts, fevers or chills. Denies any chest pain, palpitations, presyncope or syncopal episodes. Denies any respiratory symptoms although gets coughing spells in the morning that irritates her throat. Smoking cigarettes appear to be contributory here. Denies any changes to her appetite, abdominal pain, nausea or vomiting. Denies changes to bowel or bladder habits. She continues to smoke cigarettes 0.8 packs/day. Occasionally drinks ETOH and smokes marijuana. Denies any changes to her prescription medications recently. Hospital medicine was asked to admit the patient for intractable headaches and hypertensive urgency. Subjective Patient's past history, medications, and allergies were reviewed. Objective Physical Exam Most Recent Vital Signs: BP: 145 mmHg/107 mmHg (05/29/242299) Pulse: 91 (05/29/242299) Resp: 20 (05/29/242299) Temp: 36.89 C (05/29/242019) Temp Summary: Temp Min: 36.9 C (98.4 F) Max: 36.9 C (98.4 F) SpO2: 95 % (10/13/24 2300) O2 flow rate: Supplemental O2 Delivery: Room Air, None (05/29/242019) Constitutional: (+) moderate pain HEENT: normal: normocephalic, atraumatic; no masses, tenderness, or adenopathy Eyes: PERRLA, sclera and conjunctiva normal Neck: supple, normal range of motion CV: normal rate and rhythm, no murmur, gallops or rub Chest: normal respiratory effort, lungs clear to auscultation and percussion Abdomen: normal: soft, bowel sounds normal, no masses, tenderness or organomegaly Musculoskeletal: No limitations or weakness with the exception of bilateral tightness of trapezius muscles Extremities: no clubbing, cyanosis, or edema, otherwise grossly normal, warm, and dry Skin: warm, dry: Neuro: alert, oriented to person, place, and time, normal mental status exam, sensory normal Psych: normal mood and affect, nonsuicidal, judgement normal, memory normal Peripheral Line Left;Upper Arm 20 Gauge (Active) Number of days: 0 STUDIES: Encounter Orders Labs and other studies reviewed with pertinent findings noted below: CT head/brain wo contrast revealed no acute intracranial pathology. CTA head/neck without any acute findings. Assessment and Plan IMPRESSION: Principal Problem: Intractable migraine with aura without status migrainosus Active Problems: Tobacco abuse Hypertensive urgency Generalized anxiety disorder Post-traumatic stress disorder, unspecified Fatty liver ADHD (attention deficit hyperactivity disorder), combined type Resolved Problems: * No resolved hospital problems. * DIFFERENTIAL AND PLAN: Brigette Vazquez is a 38 year old female with a PMH that includes complex migraines, seizure disorder,hypertension, JEAN, ADHD, tobacco use, alcoholic hepatic steatosis who is being admitted for intractable headache and hypertensive urgency. Intractable migraine with aura without status migrainosus Right hemiparesis Mild right hand weakness and sensory changes noted on exam - possibly related to C4-C5 bulging discs NIHSS [address] and CTA head/neck unremarkable Recent MRI brain revealed right mesial temporal lobe sclerosis - hold on repeating MRI imaging Neuro checks q4h S/p migraine cocktail in the ED Dilaudid 0.5 mg IV x1 Multimodal pain regimen with acetaminophen, ketorolac and hydromorphone for breakthrough pain Hypertensive urgency SBP 170s / DBP 120s on admission May be d/t complex migraine vs medication noncompliance. Previously on Norvasc 5 mg daily, HCTZ 12.5 mg daily, labetalol 100 mg b.i.d EKG reveals NSR with incomplete RBBB; Qtc 477. 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 Kemi Garrison, for further plan of care and disposition. PHARMACOLOGIC VTE PROPHYLAXIS:Enoxaparin CODE STATUS: Full Code EXPECTED DISCHARGE DATE: No information available Associated attestation - Kemi Garrison MD - 05/30/2024 12:28 AM EDT I have reviewed the advanced practitioner's documentation on the date of service referenced in note, and I agree with, and take responsibility for the plan of care. I spent a total of 50 minutes coordinating, documenting, and providing care for this patient excluding time spent in the performance of separately billed services or time spent by another provider/QHP. documented in this encounter Consult Notes * Kemal Appiah MD - 05/29/2024 8:24 PM EDT TELESTROKE CONSULT - Neurology [facility]-[address] [id number] Name: Brigette Vazquez Location: Date: 05/29/2024 Time: 8:24 PM Gender: female : 1985 Patient location: ED. I was not in a hospital or clinic location. After connecting through televideo, patient was identified by name and date of and/or wristband checked. Patient (or authorizedlegal personnel representative) was then informed that this was a Telemedicine visit and being conducted confidentially over secure lines. My office door was closed. No one else was in the room with me. Patient acknowledged consent and understanding of privacy and security of the Telemedicine visit, and gavepermission to have a telemedicine presenter stay in the room in order to assist with the history and to conduct the exam as needed. I informed the patient that I have reviewed their record in youwho and presented the opportunity for them to ask any questions regarding the visit today. The patient agreed to participate. I communicated with the patient for 15 minutes via televideo. Referring Site Information Telestroke Site: [facility] Requesting Provider: Dr De La Rosa Neurological Assessment Telestroke Received: Time: 2019 Initial Response: Time: 2019 Tele-Video Initiated: Time: 2034 Last Known Well (LKW): Time: 1829 Date: 05/29/2024 Antithrombotics: Clopidogrel (Plavix) Last Dose Taken: Within 24 hours HPI: Brigette Vazquez is a 38 year old right handed female with stroke risk factors as outlined below, who presents with symptoms including right hemiparesis. She reports that around 630 pm she had acute onset of an acute severe holocephalic headache with associated phonophobia but no photophobia. She says that this is similar to her presentation a couple of weeks ago. She has been headache free since her last hospital visit, and has taken 5 clonodine today for BP control. She was seen 11 d`ays ago at [place] for dysarthria and right sided weakness in the setting of headache. She had an increase of seizures that day. This also happened in 2021. She has an MRI which shows right mesial temporal lobe sclerosis. Ischemic Stroke Risk Factors Hypertension Smoker/Tobacco Use Hemorrhagic Stroke Risk Factors Hypertension Currently taking antithrombotic medication Stroke Mimic Risk Factors Seizure Disorder Anxiety Disorder Depression Migraine with Aura Alcohol Use Drug Use CURRENT MEDICATIONS: Note that completed medications (per the MAR) continue to display for 24 hours. Ordered medicationsto be given in the future also display. No current facility-administered medications for this encounter. Current Outpatient Medications Medication traMADol HCl 50 MG Oral Tablet (Ultram) oxyCODONE-Acetaminophen 5-325 MG Oral Tablet (Percocet) traMADol HCl 50 MG Oral Tablet (Ultram) traMADol HCl 50 MG Oral Tablet (Ultram) Cariprazine HCl 1.5 MG Oral Capsule (Vraylar) lamoTRIgine 25 MG Oral Tablet (LaMICtal) Prazosin HCl 1 MG Oral Capsule (Minipress) diazePAM 5 MG Oral Tablet (Valium) EpiPen 2-Dorian 0.3 MG/0.3ML Injection Solution Auto-injector Dicyclomine HCl 10 MG Oral Capsule (Bentyl) Multivitamin Adult Oral Tablet Thiamine HCl 100 MG Oral Tablet (vitamin B-1) Folic Acid 400 MCG Oral Tablet Proventil HFA 108 (90 Base) MCG/ACT Inhalation Aerosol Solution ibuprofen (MOTRIN) 800 MG Tablet Blood Pressure Monitoring (ADULT BLOOD PRESSURE CUFF LG) KIT ALLERGIES: Justicia adhatoda (malabar nut tree) [justicia adhatoda], Morphine, Mushroom extract complex, Penicillins, and Peanut butter flavor PAST MEDICAL HISTORY: Past Medical History: Diagnosis Date Alcoholic hepatitis without ascites 09/11/2022 Back pain started 2010 after fall from 2nd story Bipolar 1 disorder (HCC) Dr. Drea Vega Generalized anxiety disorder 09/09/2019 Heart failure (HCC) 09/11/2022 Hypertension 2017 Kidney stones Opioid dependence in remission (HCC) 04/17/2017 Pulmonary embolism (HCC) developed after having her gallbladder taken out Seizure-like activity (HCC) 01/06/2019 Tobacco abuse PAST SURGICAL HISTORY: Past Surgical History: Procedure Laterality Date ANESTH, CS DELIVERY x 4 CHOLECYSTOTOMY OR CHOLECYSTOSTOMY, PERC 11/2014 COLONOSCOPY, DIAGNOSTIC (RECTUM) 09/08/2022 benign adenomatous polyps, diverticulosis, fair prep, repeat 5 yrs / [facility] EGD, FLEXIBLE, DIAGNOSTIC 09/08/2022 portal hypertensive gastropathy, esophagitis / [facility] EGD, W/ENDOSCOPIC US N/A 01/02/2023 [facility], EGD w/ EUS - normal scope / no specimens collected / repeat EGD 1.5 years / EUS -Evid of cholecystectomy, dilatied CBD measured up to 7mm / no specimens collected / HEMORRHOIDECTOMY, INTERNAL, 2 + COLUMNS N/A 05/08/2023 HEMORRHOIDECTOMY EXTERNAL AND INTERNAL COMPLEX performed by Saul Fitzgerald MD at [facility] HYSTEROSCOPY;ENDOMETRIAL ABLAT 09/29/2019 HYSTEROSCOPY ENDOMETRIAL ABLATION performed by Tabitha Mcgregor MD at [facility] LIGATE/CUT OVIDUCT(S) REMOVAL OF APPENDIX SURGICAL PROCEDURE ONLY Bilateral 05/08/2023 HEMORRHOIDECTOMY EXTERNAL AND INTERNAL COMPLEX by Dr. Saul Tompkins.e SURGICAL REMOVAL, ERUPTED TOOTH AND BONE 04/2016 6 teeth FAMILY HISTORY: Family History Problem Relation Name Age of Onset Bipolar Disorder Mother Heart attack Mother Stroke Mother Alcohol and Other Disorders Associated Father Other (Tachycardia) Sister sydney Urolithiasis Sister sydney Drug abuse Sister Kidney disease Sister Urolithiasis Sister Autism spectrum disorder Brother shireen Heart attack Grandmother (Maternal) Breast Cancer Grandmother (Maternal) No Known Problems Grandfather (Maternal) Alcohol and Other Disorders Associated Grandmother (Paternal) No Known Problems Grandfather (Paternal) Liver disease Aunt (Paternal) Alcohol and Other Disorders Associated Aunt (Paternal) Coronary Artery disease Other Cousin with "major heart probems" Breast Cancer Aunt (Maternal) Family History: non contributory SOCIAL HISTORY: Social History Tobacco Use Smoking status: Every Day Current packs/day: 0.75 Average packs/day: 0.8 packs/day for 19.0 years (14.3 ttl pk-yrs) Types: Cigarettes Passive exposure: Current Smokeless tobacco: Never Vaping Use Vaping status: Never Used Substance Use Topics Alcohol use: Not Currently Comment: last drink 11/03/22, 2 shots vodka with OJ Drug use: Yes Types: Marijuana Comment: delta 8 gummies, a few nights a week see above ROS: All negative other than as noted in HPI Physical Examination: (indirectly performed by observation via teleconference) Most Recent Vital Signs: BP: 135 mmHg/109 mmHg (05/29/242099) Pulse: 96 (05/29/242099) Resp: 18 (05/29/242099) Temp: 36.89 C (05/29/242019) Temp Summary: Temp Min: 36.9 C (98.4 F) Max: 36.9 C (98.4 F) SpO2: 92 % (05/29/242099) O2 flow rate: Supplemental O2 Delivery: Room Air, None (05/29/242019) Vital Signs Last 24 Hours: Systolic BP: Most Recent Systolic BP Av mmHg Min: 135 mmHg Max: 166 mmHg Temperature: Most Recent Temperature Av.89 C Min: 36.89 C Max: 36.89 C Pulse: Pulse Av.3 Min: 95 Max: 100 Respirations: Resp Av.8 Min: 16 Max: 20 SpO2: SpO2 Av % Min: 92 % Max: 94 % Weight: Weight Av.7 kg (189 lb) Min: 85.7 kg (189 lb) Max: 85.7 kg (189 lb) Constitutional: Appearance normally developed Head and face: normocephalic and atraumatic Eyes: no ptosis, no anisocoria, and no dysconjugate gaze Respiratory: normal effort Cardiovascular: regular rhythm and regular rate Abdomen: non distended Skin: no rashes, lesions, or ulcers noted Psychiatric: normal judgement and insight, normal mood, and normal affect SEVERITY SCORES: [employer] [place] [employer] Stroke Scale: 1A. LOC: 0 1B. Question: 0 1C. Commands: 0 2. Gaze: 0 3. Visual Ferguson: 0 4. Facial Palsy: 0 5A. Arm Left: 0 5B. Arm Right: 0 6A. Leg Left: 0 6B. Leg Right: 0 7. Ataxia: 0 8. Sensory: 1 9. Aphasia: 0 10. Dysarthria: 0 11. Extinction: 0 Total: 1 Baseline / Pre-morbid Level of Function by Modified [place] Scale: 0 - No symptoms. ABCD2 (Age, BP, Clinical Features of TIA, Duration, Diabetes) Score: N/A Intracerebral Hemorrhage (ICH) Score: N/A Velazquez & Barnett Score: N/A Pederson SAH Grade: N/A Personal Review of Neuroimaging, my interpretations are as follows: CT Head without contrast (reviewed at 203905/29/2024): Unremarkable. ASPECTS 10. CT Angiogram: Unremarkable. ASPECTS N/A. CT Perfusion: N/A MRI Brain: N/A Review of Labs: Glucose - 107 CONSIDERATION OF ACUTE STROKE THERAPIES: IV Thrombolysis Exclusion Criteria: - None IV Thrombolysis Relative Exclusion Criteria: - Nondisabling stroke symptoms (severity too mild) - Symptoms are attributable to a condition other than acute ischemic stroke, specifically migraine IV Thrombolytic Therapy Considerations and Discussion: Patient is not eligible for IV thrombolytic therapy due to having the exclusion criteria above, andrisk to benefit is considered unfavorable. IV Thrombolysis Administration Recommendation: Do not administer IV thrombolytic agent. See any additional recommendations below for acute stroke care. Reason for delay in thrombolytic initiated > 30 minutes after hospital arrival: None. Endovascular Therapy Exclusion Criteria: - No evidence of a causative large vessel occlusion on vascular imaging Endovascular Therapy Relative Exclusion Criteria: - None Endovascular Therapy Assessment: - Patient is not a candidate for endovascular acute stroke therapy due to the above exclusion criteria, and risk to benefit is considered unfavorable. Reason for delay in endovascular therapy: None. Patient Has Decision Making Capacity: yes Recommended Disposition of Patient: Remain at current hospital. IMPRESSION: Likely migraine with aura in a 38F with a pMH of migraine with aura, epilepsy, and prior TIA. On exam she has mild right hand weakness and sensory changes. CT and CTA are unremarkable. I have a low suspicion that her headaches are secondary elevated ICP or a CVST. I do suspect they may be related to uncontrolled BP vs migraine. Further Instructions: -- goal SBP < 130 -- migraine cocktail per ED -- no further inpatient neurologic work up Additional Stroke Care (or Document Contraindication) as Follows: N/A I discussed the results of my evaluation of the patient, the pertinent imaging findings, and the above recommendations with the above named requesting provider. Stroke Telemedicine (Telestroke): Emergency Department Telemedicine (Telestroke): Pre-service diagnostic interpretation including radiologic images. Pre-service communicating with other health professionals and/or family members. Intra-service comprehensive history. Intra-service comprehensive examination. Intra-service high complexity medical decision making. Post-service completing medical records and other documentation. Patient interaction performed via interactive audio and video telecommunication system. Total time spent 45 minutes. documented in this encounter Nursing Notes * Keiko Hobson, BEAN - 05/31/2024 9:44 AM EDT 0920 - Discharge instructions provided to pt and pt's significant other at bedside. Verbalized understanding of teaching. * Angel Donovan RN - 05/30/2024 12:15 AM EDT Pt. Arrived to the floor via stretcher at 2345. Pt. Was able to ambulate from stretcher to bed independently. Pt. Complaining of 9/10 headache pain ordered one time dilaudid given per mar. Bed at lowlevel and call mcclellan within reach. Dual Licensed Skin Assessment completed by Carl Donovan RN and German Reagan. The patient is/has a N/A Skin Breakdown (includes non blanchable erythema): No * Veena Rosenthal RN - 05/29/2024 11:58 PM EDT VIRTUAL RN [facility]-[address] [id number] Name: Brigette Vazquez Location: [facility] [id number] Date: 05/29/2024 Time: 11:58 PM I completed the Admission Navigator. The patient was in the hospital. I was not in a hospital or clinic location. After connecting through [employer], the patient was identified by name and date of and / or wristband checked. Patient (or authorized legal personnel representative) was then informed that this was a Virtual Nurse visit and was being conducted confidentially over secure lines. I used a headset and other methods to ensure confidentiality for the patient. Patient acknowledged consent and understanding of privacy and security of the Virtual Nurse visit. I presented the opportunity for the patient or authorized legal personnel representative to ask any questions regarding the visit today. The patient or authorized legal personnel representative agreed to participate. documented in this encounter ED Notes * Nithin De La Rosa DO - 05/29/2024 8:26 PM EDT HISTORY OF PRESENT ILLNESS Brigette Vazquez is a 38 year old female who presents to the ED for evaluation of Stroke. The patient was seen at 05/29/242022. 38-year-old female with past medical history significant for mood disorder, IBS, generalized anxiety disorder presents to the emergency department with her complaining of a right- sided facial droop. Onset of symptoms was 6:30 p.m.. No treatment prior to arrival in the ED. No aggravating or alleviating factors. Patient has been reports that approximately 2 weeks ago, patient was seen at [facility] for a similar complaint. She began to experience right-sided numbness and facial droop on the right side. Precipitating factors include seizure activity. Seen at [facility] and cleared for discharge to home, per the patient's . Patient reports that she was cleaning all day. Denies any seizure activities today. Noted that her blood pressure was significantly elevated. She took 5 of her blood pressure medications which decreased her blood pressure. No associated chest pain or shortness of breath. No nausea or vomiting. Patient reports a pretty significant headache. States that last time this occurred, she also had a headache. Headache is worse with noise and movement of her head. No photophobia. No fever or chills Review of Systems Constitutional: Negative for chills, diaphoresis and fatigue. Respiratory: Negative for cough, shortness of breath and stridor. Cardiovascular: Negative for chest pain and palpitations. Gastrointestinal: Negative for abdominal pain, nausea and vomiting. Musculoskeletal: Negative for neck pain and neck stiffness. Skin: Negative for color change, pallor and rash. Neurological: Positive for weakness and headaches. Negative for dizziness and light-headedness. Psychiatric/Behavioral: Negative for agitation and confusion. The patient's allergies, past history, and medications were reviewed. PHYSICAL EXAM Initial Vitals (see all): BP 166/124 | Pulse 100 | Resp 20 | Temp 98.4 | O2 94 %, Room Air, None | Weight 85.96 kg | Height 165.1 cm | BMI 31.53 kg/m2 Initial Pain Assessment (see all): 0 (no pain)/10, Throbbing, location: head ([facility] Adult Scale 0-10) Physical Exam Vitals and nursing note reviewed. Constitutional: General: She is awake. Appearance: She is ill-appearing. She is not toxic-appearing or diaphoretic. HENT: Head: Normocephalic and atraumatic. Jaw: There is normal jaw occlusion. Right Ear: Tympanic membrane and ear canal normal. Left Ear: Tympanic membrane and ear canal normal. Nose: Nose normal. Mouth/Throat: Lips: [place]. Mouth: Mucous membranes are moist. Pharynx: Oropharynx is clear. Uvula midline. Eyes: General: Gaze aligned appropriately. Extraocular Movements: Extraocular movements intact. Conjunctiva/sclera: Conjunctivae normal. Pupils: Pupils are equal, round, and reactive to light. Neck: Trachea: Trachea and phonation normal. Cardiovascular: Rate and Rhythm: Normal rate and regular rhythm. Heart sounds: Normal heart sounds. Pulmonary: Effort: Pulmonary effort is normal. Breath sounds: Normal breath sounds and air entry. Abdominal: General: Bowel sounds are normal. Palpations: Abdomen is soft. Tenderness: There is no abdominal tenderness. Musculoskeletal: Cervical back: Full passive range of motion without pain, normal range of motion and neck supple. Right lower leg: No edema. Left lower leg: No edema. Lymphadenopathy: Head: Right side of head: No submental, submandibular or tonsillar adenopathy. Left side of head: No submental, submandibular or tonsillar adenopathy. Cervical: No cervical adenopathy. Upper Body: Right upper body: No supraclavicular adenopathy. Left upper body: No supraclavicular adenopathy. Skin: General: Skin is warm and dry. Capillary Refill: Capillary refill takes less than 2 seconds. Neurological: Mental Status: She is alert and oriented to person, place, and time. Psychiatric: Behavior: Behavior is cooperative. PROCEDURES AND TREATMENTS ED Orders | ED Results MEDICAL DECISION MAKING Nursing notes and vital signs were reviewed. ED Course as of 05/30/24 0338 Sun May 29, [id number] Neurologist has recommended treatment with a migraine cocktail to see if symptoms improve/resolve. Patient agreeable with plan. No TNK recommended at this time. [JT] 212 Provider interpretation of EKG: EKG: NSR Rate: 84 bpm IA interval: 154 ms QRS duration: 104 ms QT/QTC: 404/477 ms Interpretation: no signs of acute ischemia/STEMI Incomplete Right BBB. Compared with EKG dated 11/2023: improvement of rate. [JT] 214 I evaluated the patient. Presenting for transient focal deficits similar to what she was experienced previously seen [facility] [facility]. Arrived as stroke alert. Neurologist not concern for acute stroke at this time. Recommended provided with migraine cocktail though patient was persistently hypotensive in the emergency department and [AH] 2212 Patient continues to complain of a severe headache stating that it is no better with all of the medications. Blood pressure is slowly decreasing with magnesium sulfate. Agreeable to inpatient care for stabilization of the blood pressure and control of headache. Hospitalist securely texted to discuss admission for this patient [JT] 2216 Hospitalist agreeable to an observation admission. [JT] 2331 1 mL of 2% lidocaine injected via atomizer into bilateral nares for attempted to sphenopalatine nerve block to help with headache. [AH] ED Course User Index [AH] Nithin De La Rosa DO [JT] Callie Harris PA-C Scoring Tools Results: Total: 1 Amount and/or Complexity of Data Reviewed Labs: ordered. Radiology: ordered. ECG/medicine tests: ordered. Risk OTC drugs. Prescription drug management. Decision regarding hospitalization. Clinical Impressions Screening for cardiovascular condition Hypertension, unspecified type - uncontrolled Acute intractable headache, unspecified headache type Disposition Admitted. I discussed the management of this patient with the admitting provider and I made a decision to admit the patient. Admission Order Ordered Status . 05/29/242215 Assign to Observation ONCE Completed Nithin De La Rosa was the attending physician who supervised the care of this patient. Callie Harris PA-C ATTENDING ATTESTATION I have discussed the patient's management with the provider listed above and agree with the note, findings, and plan of care. I personally made/approved the management plan and take responsibility for patient management. I saw and evaluated the patient. * Verena Mg RN - 05/29/2024 8:20 PM EDT R arm and leg numbness with R facial droop started at 1830. History of TIA. Does take plavix. Glucose 107 upon arrival. 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 documented in this encounter Miscellaneous Notes * Ancillary Progress Note - Ofelia Stuart, Business Information Consultant - 05/31/2024 10:26 AM EDT CARE MANAGEMENT - ADULT DISCHARGE NOTE [facility]-[address] [id number] Name: Brigette Vazquez Location: [facility] [id number] Date: 05/31/2024 Time: 1:20 PM The following coordination of care and discharge plan has been coordinated with the care team, patient, family and/or caregiver according to the patients needs and preferences. Discharge Discharge Second Notice Important Message from Medicare delivered: Not Applicable (05/31/24 1300) Was Caregiver/Family/Facility contacted regarding discharge: Yes (05/31/24 1300) Discharge Transportation: Family/Friends drive (05/31/24 1300) Date of scheduled discharge transportation: 05/31/24 (05/31/24 1300) Final Discharge Plan (Complete only at time of Discharge): Home - Self Care (05/31/24 1300) Narrative: Pt discharged to home with her family and family providing transportation. Pt declined the need for any services upon discharge from [facility]. * Pt Handout (on AVS) - Britt Everett RN - 05/31/2024 8:57 AM EDT [id number] Amlodipine Brand Name(s): Amvaz, Katerzia, Norliqva, Norvasc, Lilian (as a combination product containing Amlodipine, Olmesartan), Caduet (as a combination product containing Amlodipine, Atorvastatin), Consensi (as a combination product containing Amlodipine, Celecoxib), Exforge (as a combination product containing Amlodipine, Valsartan), Exforge HCT (as a combination product containing Amlodipine, Hydrochlorothiazide, Valsartan), Lotrel (as a combination product containing Amlodipine, Benazepril), Prestalia (as a combination product containing Amlodipine, Perindopril), Tribenzor (as a combination product containing Amlodipine, Hydrochlorothiazide, Olmesartan), Twynsta (as a combination product containing Amlodipine, Telmisartan); also available generically WHY is this medicine prescribed? Amlodipine is used alone or in combination with other medications to treat high blood pressure in adults and children 6 years and older. It is also used to treat certain types of angina (chest pain) and coronary artery disease (narrowing of the blood vessels that supply blood to the heart). Amlodipine is in a class of medications called calcium channel blockers. It lowers blood pressure by relaxing the blood vessels so the heart does not have to pump as hard. It controls chest pain by increasing the supply of blood to the heart. If taken regularly, amlodipine controls chest pain, but it does not stop chest pain once it starts. Your doctor may prescribe a different medication to take when you have chest pain. High blood pressure is a common condition and when not treated, can cause damage to the brain, heart, blood vessels, kidneys and other parts of the body. Damage to these organs may cause heart disease, a heart attack, heart failure, stroke, kidney failure, loss of vision, and other problems. In addition to taking medication, making lifestyle changes will also help to control your blood pressure. These changes include eating a diet that is low in fat and salt, maintaining a healthy weight, exercising at least 30 minutes most days, not smoking, and using alcohol in moderation. HOW should this medicine be used? Amlodipine comes as a tablet, an oral solution (liquid), and a suspension (liquid) to take by mouth. It is usually taken once a day with or without food. Take amlodipine around the same time every day. Follow the directions on your prescription label carefully, and ask your doctor or pharmacist to explain any part you do not understand. Take amlodipine exactly as directed. Do not take more or less of it or take it more often than prescribed by your doctor. Shake the suspension well before each use to mix the medication evenly. Your doctor will probably start you on a low dose of amlodipine and gradually increase your dose. Amlodipine helps to control high blood pressure, angina, and coronary artery disease, but does not cure these conditions. Continue to take amlodipine even if you feel well. Do not stop taking amlodipine without talking to your doctor. Are there OTHER USES for this medicine? This medication may be prescribed for other uses; ask your doctor or pharmacist for more information. What SPECIAL PRECAUTIONS should I follow? Before taking amlodipine, tell your doctor and pharmacist if you are allergic to amlodipine, any other medications, or anyingredients in amlodipine tablets, oral solution, or suspension. Ask your pharmacist for a list of the ingredients. tell your doctor and pharmacist what prescription and nonprescription medications, vitamins, nutritional supplements, and herbal products you are taking or plan to take. Your doctor may need to change the doses of your medications or monitor you carefully for side effects. tell your doctor if you have or have ever had heart failure or heart or liver disease. tell your doctor if you are , plan to become , or are breast- feeding. If you become while taking amlodipine, call your doctor. What SPECIAL DIETARY instructions should I follow? If your doctor prescribes a low-salt or low-sodium diet, follow these directions carefully. What should I do IF I FORGET to take a dose? Take the missed dose as soon as you remember it. However, if it is less than 12 hours until your next scheduled dose, skip the missed dose and continue your regular dosing schedule. Do not take a double dose to make up for a missed one. What SIDE EFFECTS can this medicine cause? Amlodipine may cause side effects. Tell your doctor if any of these symptoms are severe or do not go away: swelling of the hands, feet, ankles, or lower legs nausea stomach pain dizziness or lightheadedness drowsiness excessive tiredness flushing muscle stiffness or tremors Some side effects can be serious. If you experience any of these symptoms, call your doctor immediately or get emergency medical treatment: more frequent or more severe chest pain rapid, pounding, or irregular heartbeat fainting If you experience a serious side effect, you or your doctor may send a report to the Food and Drug Administration's (FDA) MedWatch Adverse Event Reporting program online (https://www.fda.gov/Safety/MedWatch) or by phone ( ). What should I know about STORAGE and DISPOSAL of this medication? Keep this medication in the container it came in, tightly closed, and out of reach of children. Store the tablets and oral solution at room temperature and away from light, excess heat and moisture (not in the bathroom). Store the suspension in the refrigerator and avoid freezing; protect it from light. It is important to keep all medication out of sight and reach of children as many containers (such as weekly pill minders and those for eye drops, creams, patches, and inhalers) are not child-resistant and young children can open them easily. To protect young children from poisoning, always lock safety caps and immediately place the medication in a safe location - one that is up and away and out of their sight and reach. https://www.[employer].org Unneeded medications should be disposed of in special ways to ensure that pets, children, and otherpeople cannot consume them. However, you should not flush this medication down the toilet. Instead,the best way to dispose of your medication is through a medicine take-back program. Talk to your pharmacist or contact your local garbage/recycling department to learn about take-back programs in your community. See the FDA's Safe Disposal of Medicines website (https://goo.gl/c4Rm4p) for more information if you do not have access to a take-back program. What should I do in case of OVERDOSE? In case of overdose, call the poison control helpline at . Information is also available online at https://www.poisonhelp.org/help. If the victim has collapsed, had a seizure, has trouble breathing, or can't be awakened, immediately call emergency services at 611. Symptoms of overdose may include: dizziness fainting rapid heartbeat What OTHER INFORMATION should I know? Keep all appointments with your doctor. Your blood pressure should be checked regularly to determine your response to amlodipine. Do not let anyone else take your medication. Ask your pharmacist any questions you have about refilling your prescription. It is important for you to keep a written list of all of the prescription and nonprescription ([id number]) medicines you are taking, as well as any products such as vitamins, minerals, or otherdietary supplements. You should bring this list with you each time you visit a doctor or if you areadmitted to a hospital. It is also important information to carry with you in case of emergencies. This report on medications is for your information only, and is not considered individual patient advice. Because of the changing nature of drug information, please consult your physician or pharmacist about specific clinical use. The [employer] represents that the information provided hereunder was formulated with a reasonable standard of care, and in conformity with professional standards in the field. The [employer] makes no representations or warranties, express or implied, including, but not limited to, any implied warranty of merchantability and/or fitness for a particular purpose, with respect to such information and specifically disclaims all such warranties. Users are advised that decisions regarding drug therapy are complex medical decisions requiring the independent, informed decision of an appropriate health career development manager, and the information is provided for informational purposes only. The entire monograph for a drug should be reviewed for a thorough understanding of the drug's actions, uses and side effects. The [employer] does not endorse or recommend the use of any drug.The information is not a substitute for medical care. [facility] Patient Medication Information?. Copyright, 2023. The [employer], [address] [place] [address], [address], [place], [place]. All Rights Reserved. Duplication for commercial use must be authorized by [facility]. Selected Revisions: April 05, 2024. [facility] Patient Medication Information?. Copyright, 2023 * Pt Handout (on AVS) - Britt Everett RN - 05/31/2024 8:57 AM EDT [id number] Oxycodone Brand Name(s): Oxaydo, Oxycontin, Roxicodone, Roxybond, Xtampza ER, Combunox (as a combination product containing Ibuprofen, Oxycodone), Narvox (as a combination product containing Acetaminophen, Oxycodone), Oxycet (as a combination product containing Acetaminophen, Oxycodone), Percocet (as a combination product containing Acetaminophen, Oxycodone), Percodan (as a combination product containing Aspirin, Oxycodone), Roxicet (as a combination product containing Acetaminophen, Oxycodone), Roxilox (as a combination product containing Acetaminophen, Oxycodone), Roxiprin (as a combination product containing Aspirin, Oxycodone), Targiniq ER (as a combination product containing naloxone, oxycodone), Troxyca ER (as a combination product containing Naltrexone, Oxycodone), Tylox (as a combination product containing Acetaminophen, Oxycodone), Xartemis XR (as a combination product containing Acetaminophen, Oxycodone); also available generically IMPORTANT WARNING: Oxycodone may be habit-forming. Take oxycodone exactly as directed. Do not take more of it, take itmore often, or take it in a different way than directed by your doctor. While taking oxycodone, discuss with your healthcare provider your pain treatment goals, length of treatment, and other ways tomanage your pain. Tell your doctor if you or anyone in your family drinks or has ever drunk large amounts of alcohol, uses or has ever used street drugs, or has overused prescription medications, or has had an overdose, or if you have or have ever had depression or another mental illness. There is a greater risk that you will overuse oxycodone if you have or have ever had any of these conditions.Talk to your healthcare provider immediately and ask for guidance if you think that you have an opioid addiction or call the U.S. Substance Abuse and Mental Health Services Administration (SAMHSA) National Helpline at 0-521-335-KLIK. Oxycodone may cause serious or life-threatening breathing problems, especially during the first 24 to 72 hours of your treatment and any time your dose is increased. Your doctor will monitor you carefully during your treatment. Tell your doctor if you have or have ever had slowed breathing or asthma. Your doctor will probably tell you not to take oxycodone. Also tell your doctor if you have or have ever had lung disease such as chronic obstructive pulmonary disease (COPD; a group of diseases that affect the lungs and airways), a head injury a brain tumor, or any condition that increases the amount of pressure in your brain. The risk that you will develop breathing problems may be higher if you are an older adult or are weak or malnourished due to disease. If you experience any of the following symptoms, call your doctor immediately or get emergency medical treatment: slowed breathing, long pauses between breaths, or shortness of breath. Do not allow anyone else to take your medication. Oxycodone may harm or cause to other peoplewho take your medication, especially children. Keep oxycodone in a safe place so that no one else can take it accidentally or on purpose. Be especially careful to keep oxycodone out of the reach of children. Keep track of how many capsules, tablets, or oral solution is left so you will know if any medication is missing. Taking certain other medications with oxycodone may increase the risk of serious or life-threatening breathing problems, sedation, or coma. Tell your doctor and pharmacist what other prescription andnonprescription medications, vitamins, nutritional supplements, and herbal products you are taking or plan to take. Your doctor may need to change the doses of your medication and will monitor you carefully. If you take oxycodone with other medications and you develop any of the following symptoms,call your doctor immediately or seek emergency medical care: unusual dizziness, lightheadedness, extreme sleepiness, slowed or difficult breathing, or unresponsiveness. Be sure that your caregiver orfamily members know which symptoms may be serious so they can call the doctor or emergency medical care if you are unable to seek treatment on your own. Drinking alcohol, taking prescription or nonprescription medications that contain alcohol, or usingstreet drugs during your treatment with oxycodone increases the risk that you will experience serious, life-threatening side effects. Do not drink alcohol, take prescription or nonprescription medications that contain alcohol, or use street drugs during your treatment. If you are taking the oxycodone extended-release tablets, swallow them whole; do not chew, break, divide, crush, or dissolve them. Do not presoak, lick or otherwise wet the tablet prior to placing inthe mouth. Swallow each tablet right after you put it in your mouth. If you swallow broken, chewed,crushed, or dissolved extended-release tablets, you may receive too much oxycodone at once instead of slowly over 12 hours. This may cause serious problems, including overdose and . Oxycodone comes as a regular solution (liquid) and as a concentrated solution that contains more oxycodone in each milliliter of solution. Be sure that you know whether your doctor has prescribed theregular or concentrated solution and the dose in milliliters that your doctor has prescribed. Use the dosing cup, oral syringe, or dropper provided with your medication to carefully measure the number of milliliters of solution that your doctor prescribed. Read the directions that come with your medication carefully and ask your doctor or pharmacist if you have any questions about how to measure your dose or how much medication you should take. You may experience serious or life threatening side effects if you take an oxycodone solution with a different concentration or if you take a different amount of medication than prescribed by your doctor. Store oxycodone in a safe place so that no one else can take it accidentally or on purpose. Be especially careful to keep oxycodone out of the reach of children. Keep track of how many tablets or capsules, or how much liquid is left so you will know if any medication is missing. Dispose of unwantedcapsules, tablets, extended-release tablets, extended-release capsules, and liquid properly according to instructions. (See STORAGE and DISPOSAL). Tell your doctor if you are or plan to become . If you take oxycodone regularly during your , your baby may experience life- threatening withdrawal symptoms after . Tellyour baby's doctor right away if your baby experiences any of the following symptoms: irritability, hyperactivity, abnormal sleep, high-pitched cry, uncontrollable shaking of a part of the body, vomiting, diarrhea, or failure to gain weight. Talk to your doctor about the risks of taking oxycodone. Your doctor or pharmacist will give you the visual specialist's patient information sheet (Medication Guide) when you begin your treatment with oxycodone and each time you fill your prescription. Read theinformation carefully and ask your doctor or pharmacist if you have any questions. You can also visit the Food and Drug Administration (FDA) website (https://www.fda.gov/Drugs/DrugSafety/qbi512708.htm) or the visual specialist's website to obtain the Medication Guide. WHY is this medicine prescribed? Oxycodone immediate-release tablets, capsules, and oral solution are used to relieve severe, acute pain (pain that begins suddenly, has a specific cause, and is expected to go away when the cause of the pain is healed) in people who are expected to need an opioid pain medication and who cannot be treated with other pain medications. Oxycodone extended-release tablets and extended-release capsulesare used to relieve severe pain in people who are expected to need pain medication around the clockfor a long time and who cannot be treated with other medications. Oxycodone extended-release tablets and extended-release capsules should not be used to treat pain that can be controlled by medication that is taken as needed. Oxycodone concentrated solution should only be used to treat people who are tolerant (used to the effects of the medication) to opioid medications because they have taken this type of medication for at least one week. Oxycodone is in a class of medications called opiate (narcotic) analgesics. It works by changing the way the brain and nervous system respond to pain. Oxycodone is also available in combination with acetaminophen (Oxycet, Percocet, others) and aspirin (Percodan). This monograph only includes information about the use of oxycodone alone. If you are taking an oxycodone combination product, be sure to read information about all the ingredients in the product you are taking and ask your doctor or pharmacist for more information. HOW should this medicine be used? Oxycodone comes as a solution (liquid), a concentrated solution, a tablet, a capsule, an extended-release (long-acting) tablet (Oxycontin), and an extended- release capsule (Xtampza ER) to take by mouth. The solution, concentrated solution, tablet, and capsule are taken usually with or without food every 4 to 6 hours, either as needed for pain or as regularly scheduled medications. The extended-release tablets (Oxycontin) are taken every 12 hours with or without food. The extended-release capsules (Xtampza ER) are taken every 12 hours with food; eat the same amount of food with each dose. Follow the directions on your prescription label carefully, and ask your doctor or pharmacist to explainany part you do not understand. Take oxycodone exactly as directed. If you are taking the extended-release tablets (Oxycontin), swallow the tablets one at a time with plenty of water. Swallow the tablet or right after putting it in your mouth. Do not presoak, wet, orlick the tablets before you put them in your mouth. Do not chew or crush extended-release tablets. If you have trouble swallowing extended-release capsules (Xtampza ER), you can carefully open the capsule and sprinkle the contents on soft foods such as applesauce, pudding, yogurt, ice cream, or jam, then consume the mixture immediately. Dispose of the empty capsule shells right away by flushing them down a toilet. Do not store the mixture for future use. If you have a feeding tube, the extended-release capsule contents can be poured into the tube. Ask your doctor how you should take the medication and follow these directions carefully. Your doctor may adjust your dose of oxycodone during your treatment, depending on how well your pain is controlled and on the side effects that you experience. Talk to your doctor about how you are feeling during your treatment with oxycodone. Tell your doctor if you feel that your pain is not controlled or if your pain increases, becomes worse, or if you have new pain or an increased sensitivityto pain during your treatment with oxycodone. Do not take more of it or take it more often than prescribed by your doctor. Do not stop taking oxycodone without talking to your doctor. If you stop taking oxycodone suddenly,you may experience withdrawal symptoms such as restlessness, watery eyes, runny nose, sneezing, yawning, sweating, chills, muscle or joint aches or pains, weakness, irritability, anxiety, depression,difficulty falling asleep or staying asleep, cramps, nausea, vomiting, diarrhea, loss of appetite, fast heartbeat, and fast breathing. Your doctor will probably decrease your dose gradually. Are there OTHER USES for this medicine? This medication may be prescribed for other uses; ask your doctor or pharmacist for more information. What SPECIAL PRECAUTIONS should I follow? Before taking oxycodone, tell your doctor and pharmacist if you are allergic to oxycodone, any other medications, or any of the ingredients in the oxycodone product you plan to take. Ask your pharmacist or check the Medication Guide for a list of the ingredients. tell your doctor or pharmacist if you are taking the following medications or have stopped taking them within the past two weeks: isocarboxazid (Marplan), linezolid (Zyvox), methylene blue, phenelzine (Nardil), selegiline (Emsam, Zelapar), or tranylcypromine (Parnate). The following nonprescription or herbal products may interact with oxycodone: Randi's wort and tryptophan. Be sure to let your doctor and pharmacist know that you are taking these medications before you start taking oxycodone. Do not start these medications while taking oxycodone without discussing it with your healthcare provider. tell your doctor if you have or have ever had any of the conditions mentioned in the IMPORTANT WARNING section, a blockage or narrowing of your stomach or intestines, or paralytic ileus (conditionin which digested food does not move through the intestines). Your doctor may tell you not to take oxycodone. Also tell your doctor if you have or have ever had low blood pressure; seizures; adrenal insufficiency (condition in which the adrenal glands do not produce enough of certain hormones needed for important body functions); seizures; urethral stricture (blockage of the tube that allows urine to leave the body), problems urinating; or heart, kidney, liver, pancreas, thyroid, or gall bladder disease. If you will be taking the extended-release tablets or extended-release capsules, also tell your doctor if you have or have ever had difficulty swallowing, diverticulitis (condition in which small pouches form in the intestines and become swollen and infected), colon cancer (cancer that begins inthe large intestine), or esophageal cancer (cancer that begins in the tube that connects the mouth and stomach). tell your doctor if you are . You should not breastfeed while you are taking oxycodone. Oxycodone can cause shallow breathing, difficulty or noisy breathing, confusion, more than usual sleepiness, trouble , or limpness in breastfed infants. you should know that this medication may decrease fertility in men and women. Talk to your doctor about the risks of taking oxycodone. if you are having surgery, including dental surgery, tell the doctor or dentist that you are taking oxycodone. you should know that this medication may make you drowsy. Do not drive a car, operate heavy machinery, or participate in any other possibly dangerous activities until you know how this medication affects you. you should know that oxycodone may cause dizziness, lightheadedness, and fainting when you get up too quickly from a lying position. To help avoid this problem, get out of bed slowly, resting yourfeet on the floor for a few minutes before standing up. you should know that oxycodone may cause constipation. Talk to your doctor about changing your diet or using other medications to prevent or treat constipation while you are taking oxycodone. What SPECIAL DIETARY instructions should I follow? Unless your doctor tells you otherwise, continue your normal diet. What should I do IF I FORGET to take a dose? If you are taking oxycodone on a regular schedule, take the missed dose as soon as you remember it.However, if it is almost time for the next dose, skip the missed dose and continue your regular dosing schedule. Do not take a double dose to make up for a missed one. Do not take more than one dose of the extended- release tablets or capsules in 12 hours. What SIDE EFFECTS can this medicine cause? Oxycodone may cause side effects. Tell your doctor if any of these symptoms, are severe or do not go away: dry mouth stomach pain drowsiness flushing headache mood changes Some side effects can be serious. If you experience any of these symptoms or those mentioned in the IMPORTANT WARNING section, call your doctor immediately or get emergency medical help: changes in heartbeat agitation, hallucinations (seeing things or hearing voices that do not exist), fever, sweating, confusion, fast heartbeat, shivering, severe muscle stiffness or twitching, loss of coordination, ordiarrhea nausea, vomiting, loss of appetite, weakness, or dizziness inability to get or keep an erection irregular menstruation decreased sexual desire chest pain rash; itching; hives; hoarseness; difficulty breathing or swallowing; or swelling of the face, mouth, tongue, lips, or throat swelling of the hands, feet, ankles, or lower legs seizures extreme drowsiness If you experience a serious side effect, you or your doctor may send a report to the Food and Drug Administration's (FDA) MedWatch Adverse Event Reporting program online (https://www.fda.gov/Safety/MedWatch) or by phone ( ). Oxycodone may cause other side effects. Call your doctor if you have any unusual problems while youare taking this medication. What should I know about STORAGE and DISPOSAL of this medication? Keep this medication in the container it came in, tightly closed, and out of reach of children, andin a location that is not easily accessible by others, including visitors to the home. Store it at room temperature and away from light and excess heat and moisture (not in the bathroom). You must immediately dispose of any medication that is outdated or no longer needed through a medicine take-back program. If you do not have a take-back program nearby or one that you can access promptly, flush any medication that is outdated or no longer needed down the toilet so that others will not take it.Talk to your pharmacist about the proper disposal of your medication. It is important to keep all medication out of sight and reach of children as many containers (such as weekly pill minders and those for eye drops, creams, patches, and inhalers) are not child-resistant and young children can open them easily. To protect young children from poisoning, always lock safety caps and immediately place the medication in a safe location - one that is up and away and out of their sight and reach. https://www.[employer].org What should I do in case of OVERDOSE? In case of overdose, call the poison control helpline at . Information is also available online at https://www.poisonhelp.org/help. If the victim has collapsed, had a seizure, has trouble breathing, or can't be awakened, immediately call emergency services at 911. While taking oxycodone, you should talk to your doctor about having a rescue medication called naloxone readily available (e.g., home, office). Naloxone is used to reverse the life-threatening effects of an overdose. It works by blocking the effects of opiates to relieve dangerous symptoms caused by high levels of opiates in the blood. Your doctor may also prescribe you naloxone if you are livingin a household where there are small children or someone who has abused street or prescription drugs. You should make sure that you and your family members, caregivers, or the people who spend time with you know how to recognize an overdose, how to use naloxone, and what to do until emergency medical help arrives. Your doctor or pharmacist will show you and your family members how to use the medication. Ask your pharmacist for the instructions or visit the visual specialist's website to get the instructions. If symptoms of an overdose occur, a caregiver or family member should give the first dose of naloxone, call 911 immediately, and stay with you and watch you closely until emergency medical help arrives.Your symptoms may return within a few minutes after you receive naloxone. If your symptoms return, the person should give you another dose of naloxone. Additional doses may be given every 2 to 3 minutes, if symptoms return before medical help arrives. Symptoms of overdose may include the following: difficulty breathing slowed or shallow breathing excessive sleepiness limp or weak muscles narrowing or widening of the pupils ([place] in the eye) cold, clammy skin unable to respond or wake up slowed heartbeat unusual snoring What OTHER INFORMATION should I know? Keep all appointments with your doctor. Your doctor may order certain lab tests to check your body's response to oxycodone. Before having any laboratory test (especially those that involve methylene blue), tell your doctor and the laboratory personnel that you are taking oxycodone. This prescription is not refillable. If you continue to have pain after you finish the oxycodone, call your doctor. It is important for you to keep a written list of all of the prescription and nonprescription (sbao-pdc-aphynqf) medicines you are taking, as well as any products such as vitamins, minerals, or otherdietary supplements. You should bring this list with you each time you visit a doctor or if you areadmitted to a hospital. It is also important information to carry with you in case of emergencies. This report on medications is for your information only, and is not considered individual patient advice. Because of the changing nature of drug information, please consult your physician or pharmacist about specific clinical use. The [employer] represents that the information provided hereunder was formulated with a reasonable standard of care, and in conformity with professional standards in the field. The [employer] makes no representations or warranties, express or implied, including, but not limited to, any implied warranty of merchantability and/or fitness for a particular purpose, with respect to such information and specifically disclaims all such warranties. Users are advised that decisions regarding drug therapy are complex medical decisions requiring the independent, informed decision of an appropriate health career development manager, and the information is provided for informational purposes only. The entire monograph for a drug should be reviewed for a thorough understanding of the drug's actions, uses and side effects. The [employer] does not endorse or recommend the use of any drug.The information is not a substitute for medical care. [facility] Patient Medication Information?. Copyright, 2023. [employer], [address], [address], [place], [place]. All Rights Reserved. Duplication for commercial use must be authorized by [facility]. Selected Revisions: October 30, 2023. [facility] Patient Medication Information?. Copyright, 2023 * Pt Handout (on AVS) - Britt Everett RN - 05/31/2024 8:57 AM EDT [id number] Prednisone Brand Name(s): Amanda, Cortan, Deltasone, Orasone, Prednisone Intensol, Sterapred, Sterapred DS; also available generically WHY is this medicine prescribed? Prednisone is used alone or with other medications to treat the symptoms of low corticosteroid levels (lack of certain substances that are usually produced by the body and are needed for normal body functioning). Prednisone is also used to treat other conditions in patients with normal corticosteroid levels. These conditions include certain types of arthritis; severe allergic reactions; multiple sclerosis (a disease in which the nerves do not function properly); lupus (a disease in which the body attacks many of its own organs); and certain conditions that affect the lungs, skin, eyes, kidneys blood, thyroid, stomach, and intestines. Prednisone is also sometimes used to treat the symptoms of certain types of cancer. Prednisone is in a class of medications called corticosteroids. It works to treat patients with low levels of corticosteroids by replacing steroids that are normally produced naturally by the body. It works to treat other conditions by reducing swelling and redness and by changing the way the immune system works. HOW should this medicine be used? Prednisone comes as a tablet, delayed-release tablet, as a solution (liquid), and as a concentratedsolution to take by mouth. Prednisone is usually taken with food one to four times a day or once every other day. Your doctor will probably tell you to take your dose(s) of prednisone at certain time(s) of day every day. Your personal dosing schedule will depend on your condition and on how you respond to treatment. Follow the directions on your prescription label carefully, and ask your doctor or pharmacist to explain any part you do not understand. Take prednisone exactly as directed. Do not take more or less of it or take it more often or for a longer period of time than prescribed by your doctor. If you are taking the concentrated solution, use the specially marked dropper that comes with the medication to measure your dose. You may mix the concentrated solution with juice, other flavored liquids, or soft foods such as applesauce. Swallow the delayed-release tablet whole; do not chew or crush it. Your doctor may change your dose of prednisone often during your treatment to be sure that you are always taking the lowest dose that works for you. Your doctor may also need to change your dose if you experience unusual stress on your body such as surgery, illness, infection, or a severe asthma attack. Tell your doctor if your symptoms improve or get worse or if you get sick or have any changes in your health during your treatment. If you are taking prednisone to treat a long-lasting disease, the medication may help control your condition but will not cure it. Continue to take prednisone even if you feel well. Do not stop taking prednisone without talking to your doctor. If you suddenly stop taking prednisone, your body may not have enough natural steroids to function normally. This may cause symptoms such as extreme tiredness, weakness, slowed movements, upset stomach, weight loss, changes in skin color, sores in the mouth, and craving for salt. Call your doctor if you experience these or other unusual symptoms while you are taking decreasing doses of prednisone or after you stop taking the medication. Are there OTHER USES for this medicine? Prednisone is also sometimes used with antibiotics to treat a certain type of pneumonia in patientswith acquired immunodeficiency syndrome (AIDS). Talk to your doctor about the risks of using this drug for your condition. This medication may be prescribed for other uses; ask your doctor or pharmacist for more information. What SPECIAL PRECAUTIONS should I follow? Before taking prednisone, tell your doctor and pharmacist if you are allergic to prednisone, any other medications, or anyof the inactive ingredients in prednisone tablets or solutions. Ask your doctor or pharmacist for alist of the inactive ingredients. tell your doctor and pharmacist what prescription and nonprescription medications, vitamins, nutritional supplements, and herbal products you are taking or plan to take while taking prednisone. Your doctor may need to change the doses of your medications or monitor you carefully for side effects.) the following nonprescription or herbal products may interact with prednisone: [place]'s wort, cimetidine (Tagamet), aspirin. Be sure to let your doctor and pharmacist know that you are taking these medications before you start taking prednisone. Do not start any of these medications while taking prednisone without discussing with your healthcare provider.. tell your doctor if you have an eye infection now or have ever had eye infections that come and go and if you have or have ever had threadworms (a type of worm that can live inside the body); diabetes; high blood pressure; emotional problems; mental illness; myasthenia gravis (a condition in which the muscles become weak); osteoporosis (condition in which the bones become weak and fragile and can break easily); seizures; tuberculosis (TB); ulcers; or liver, kidney, intestinal, heart, or thyroid disease. tell your doctor if you are , plan to become , or are breast- feeding. If you become while taking prednisone, call your doctor. if you are having surgery, including dental surgery, or need emergency medical treatment, tell the doctor, dentist, or medical staff that you are taking or have recently stopped taking prednisone.You should carry a card or wear a bracelet with this information in case you are unable to speak marleny medical emergency. do not have any vaccinations (shots to prevent diseases) without talking to your doctor. you should know that prednisone may decrease your ability to fight infection and may prevent youfrom developing symptoms if you get an infection. Stay away from people who are sick and wash your hands often while you are taking this medication. Be sure to avoid people who have chicken pox or measles. Call your doctor immediately if you think you may have been around someone who had chicken pox or measles. What SPECIAL DIETARY instructions should I follow? Your doctor may instruct you to follow a low-salt, high potassium, or high calcium diet. Your doctor may also prescribe or recommend a calcium or potassium supplement. Follow these directions carefully. Talk to your doctor about eating grapefruit and drinking grapefruit juice while you are taking thismedication. What should I do IF I FORGET to take a dose? When you start to take prednisone, ask your doctor what to do if you forget to take a dose. Write down these instructions so that you can refer to them later. Call your doctor or pharmacist if you miss a dose and do not know what to do. Do not take a double dose to make up for a missed dose. What SIDE EFFECTS can this medicine cause? Prednisone may cause side effects. Tell your doctor if any of these symptoms are severe or do not go away: headache dizziness difficulty falling asleep or staying asleep inappropriate happiness extreme changes in mood changes in personality bulging eyes acne thin, fragile skin red or purple blotches or lines under the skin slowed healing of cuts and bruises increased hair growth changes in the way fat is spread around the body extreme tiredness weak muscles irregular or absent menstrual periods decreased sexual desire heartburn increased sweating Some side effects can be serious. If you experience any of the following symptoms, call your doctor immediately: vision problems eye pain, redness, or tearing sore throat, fever, chills, cough, or other signs of infection seizures depression loss of contact with reality confusion muscle twitching or tightening shaking of the hands that you cannot control numbness, burning, or tingling in the face, arms, legs, feet, or hands upset stomach vomiting lightheadedness irregular heartbeat sudden weight gain shortness of breath, especially during the night dry, hacking cough swelling or pain in the stomach swelling of the eyes, face, lips, tongue, throat, arms, hands, feet, ankles, or lower legs difficulty breathing or swallowing rash hives itching Prednisone may slow growth and development in children. Your child's doctor will watch his or her growth carefully. Talk to your child's doctor about the risks of giving prednisone to your child. Prednisone may increase the risk that you will develop osteoporosis. Talk to your doctor about the risks of taking prednisone and about things that you can do to decrease the chance that you will develop osteoporosis. Some patients who took prednisone or similar medications developed a type of cancer called Kaposi'ssarcoma. Talk to your doctor about the risks of taking prednisone. Prednisone may cause other side effects. Call your doctor if you have any unusual problems while you are taking this medication. If you experience a serious side effect, you or your doctor may send a report to the Food and Drug Administration's (FDA) MedWatch Adverse Event Reporting program online (https://www.fda.gov/Safety/MedWatch) or by phone ( ). What should I know about STORAGE and DISPOSAL of this medication? Keep this medication in the container it came in, tightly closed, and out of reach of children. Store it at room temperature and away from excess heat and moisture (not in the bathroom). It is important to keep all medication out of sight and reach of children as many containers (such as weekly pill minders and those for eye drops, creams, patches, and inhalers) are not child-resistant and young children can open them easily. To protect young children from poisoning, always lock safety caps and immediately place the medication in a safe location - one that is up and away and out of their sight and reach. https://www.[employer].org Unneeded medications should be disposed of in special ways to ensure that pets, children, and otherpeople cannot consume them. However, you should not flush this medication down the toilet. Instead,the best way to dispose of your medication is through a medicine take-back program. Talk to your pharmacist or contact your local garbage/recycling department to learn about take-back programs in your community. See the FDA's Safe Disposal of Medicines website (https://goo.gl/c4Rm4p) for more information if you do not have access to a take-back program. What should I do in case of OVERDOSE? In case of overdose, call the poison control helpline at . Information is also available online at https://www.poisonhelp.org/help. If the victim has collapsed, had a seizure, has trouble breathing, or can't be awakened, immediately call emergency services at [phone]. What OTHER INFORMATION should I know? Keep all appointments with your doctor and the laboratory. Your doctor will order certain lab teststo check your body's response to prednisone. If you are having any skin tests such as allergy tests or tuberculosis tests, tell the doctor or refurbish technician that you are taking prednisone. Do not let anyone else take your medication. Ask your pharmacist any questions you have about refilling your prescription. It is important for you to keep a written list of all of the prescription and nonprescription (raxp-zhp-razbwzi) medicines you are taking, as well as any products such as vitamins, minerals, or otherdietary supplements. You should bring this list with you each time you visit a doctor or if you areadmitted to a hospital. It is also important information to carry with you in case of emergencies. This report on medications is for your information only, and is not considered individual patient advice. Because of the changing nature of drug information, please consult your physician or pharmacist about specific clinical use. [employer] represents that the information provided hereunder was formulated with a reasonable standard of care, and in conformity with professional standards in the field. [employer] makes no representations or warranties, express or implied, including, but not limited to, any implied warranty of merchantability and/or fitness for a particular purpose, with respect to such information and specifically disclaims all such warranties. Users are advised that decisions regarding drug therapy are complex medical decisions requiring the independent, informed decision of an appropriate health career development manager, and the information is provided for informational purposes only. The entire monograph for a drug should be reviewed for a thorough understanding of the drug's actions, uses and side effects. [employer] does not endorse or recommend the use of any drug.The information is not a substitute for medical care. [facility] Patient Medication Information?. Copyright, 2023. [employer], [address] [place] [address], [address], [place], [place]. All Rights Reserved. Duplication for commercial use must be authorized by [facility]. Selected Revisions: February 04, 2024. [facility] Patient Medication Information?. Copyright, 2023 * Care Plan - Jacklyn Garcia RN - 05/30/2024 7:35 PM EDT Clinical Goal(s): Pts SBP will remain <180 this shift (05/30/24 0830) Possible barriers to meeting goal(s)/advancing plan of care: Acuity of illness Stability of the patient: Moderately stable - low risk of patient condition declining or worsening Summary regarding today's goal(s): Met: Pts SBP was <180 this shift Recommendations: PRN pain medications to bring help bring down BP to help with migraines * Medical Necessity - Yoshi Victoria RN - 05/30/2024 12:18 PM EDT AdmissionCare Guideline: Headache - INPT, Inpatient Based on the indications selected for the patient, the bed status of Inpatient was determined to beMET The following indications were selected as present at the time of evaluation of the patient: - Clinical Indications for Admission to Inpatient Care - Admission is indicated for 1 or more of the following: - Severe headache that persists despite observation care Additional Information: Severe Headache, IV pain medications AdmissionCare documentation entered by: Yoshi Victoria [facility], 28th edition, Copyright 2023 [facility] All Rights Reserved. [id number]:18:15-04:00 Solely for purpose of utilization review and payment; not a diagnostic tool * Ancillary Progress Note - Ofelia Stuart, Business Information Consultant - 05/30/2024 10:32 AM EDT CARE MANAGEMENT - ADULT INITIAL SCREENING [facility]-[address] [id number] Name: Brigette Vazquez Location: [facility] [id number] Date: 05/30/2024 Time: 10:32 AM Discussed patient with the interdisciplinary care team. This Accuracy Expert performed a chart review and met with pt at bedside to complete admission screen and assessed needs for transition planning. The critical care rn role and services were explained and emotional support was provided. Chief Complaint: Stroke Prior Living Arrangements What was your living situation prior to admission/observation?: With Spouse;With Child;Other (Comment) (with [id number]) (05/30/24 1026) Living Quarters: House (05/30/24 1026) Number of steps to enter living quarters:: 0STE, 14 steps to second floor (05/30/24 1026) Do you have serious difficulty walking or climbing stairs? (5 years old or older): No (05/29/24 5410) History of falling: No (05/30/24 5745) Prior Level of Functioning Describe the patient's ability prior to admission/observation to perform ADLs: Performs independently (05/30/24 1026) Describe the patient's mobility status prior to admission: Patient ambulates independently (05/30/24 1026) Patient uses assistive device: No (05/30/241025) Caregiver Information Patient Contacts Name Relation Home Work Mobile Pradip Marti Spouse [phone] Pt is a 38 year old female that came to [facility] ED for right arm and leg numbness, right facial droop. 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 Pt has no consults at this time. Pt is insured by [facility] Family. Pt lives with her spouse, 4 children, and [id number] in a 2 story home with 0 GERARD and 14 steps to the second floor. 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 Pt denies having any DME. Pt provides her own transportation. Pt goes to [facility] in [place] for Psychiatry. Pt stating that she has a medical marijuana card and only uses the marijuana at night at times. Pt plans to return home upon discharge from [facility] and pt feels she has no needs at discharge. 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 [facility] (PDA) Waiver Program: N/A (05/30/241025) EXCEPTIONAL NEEDS TEACHER Transportation (Services received within the last 30 days): Patient drives self (05/30/24 102) Outpatient Accuracy Expert: Patient Care Team: Veronica Merino RN as Insurance Counselor ([facility]) Patient/Family Expectations: Return home For further screening information, please refer to the Care Management flow document. * Pt Handout (on AVS) - Kassi Davies RN - 05/30/2024 7:36 AM EDT [id number] Your High Blood Pressure Risk Factors Risk factors are things that make you more likely to have a disease or condition. Do you know your risk factors for high blood pressure? You can?t do anything about some risk factors. But other risk factors are things that can be changed. Know what high blood pressure risk factors you have. Then, find out what changes you can make to help control your risk for high blood pressure. Start with the change that you think will be easiest for you. Risk factors you can?t control Though you can?t change any of the things listed below, check off the ones that apply to you. The more boxes you check, the greater your risk for high blood pressure. Family history ? One or both of your parents or grandparents has had high blood pressure or heart disease. Gender, age, and race ? You?re a man over age 55 or a postmenopausal woman. Or you are . Risk factors you can control There are plenty of risk factors for high blood pressure that you can control. Learn what these risk factors are and then find out how to reduce your risk. Check the ones that apply to you. ? What you eat Do you eat a lot of salty, fatty, fried, or greasy foods? Do you go to restaurants or eat out frequently? ? What you drink Do you have more than 1 alcoholic drink a day if you are a female or more than 2 drinks a day if you are a male? ? If you smoke or someone close to you smokes Do you smoke cigarettes or cigars, chew tobacco, or dip snuff? Are you exposed to secondhand smoke on a regular basis? ? How active you are Are you inactive most of the time at work and at home? Do you go weeks without exercising? ? Your weight Has your healthcare provider said that you are 15 or more pounds overweight? ? Your stress level Do you often feel anxious, nervous, and stressed? Do you feel that you don't have a supportive environment? Last Reviewed Date: 2021 00:00:00 [id number] [employer]. All rights reserved. This information is not intended as a substitute for professional medical care. Always follow your healthcare professional's instructions. * Pt Handout (on AVS) - Kassi Davies RN - 05/30/2024 7:36 AM EDT Images from the original note were not included. [id number] Headache, Unspecified A number of things can cause headaches. The cause of your headache isn?t clear. But it doesn?t seemto be a sign of any serious illness. Headache affects almost everyone at some time. It's the most common reason people miss days from work or school. A physical and nervous system exam can help rule out any serious causes of headache. Sometimes you may need more testing. This could include blood work or imaging tests of the head, such as a CAT scan or MRI. You could have a tension headache or a migraine headache. Stress can cause a tension headache. This can happen if you tense the muscles of your shoulders, neck, and scalp without knowing it. If this stress lasts long enough, you may develop a tension headache. It's not clear why migraines occur, but certain things called triggers can raise the risk of havinga migraine attack. Migraine triggers may include emotional stress or depression, or by hormone changes during the menstrual cycle. Other triggers include control pills and other medicines, alcohol or caffeine, foods with tyramine, such as aged cheese or wine, eyestrain, weather changes, missed meals, and lack of sleep or oversleeping. Other causes of headache include: Viral illness with high fever Head injury with concussion Sinus, ear, or throat infection Dental pain and jaw joint (TMJ) pain More serious but less common causes of headache include stroke, brain hemorrhage, brain tumor, meningitis, and encephalitis. Home care Follow these tips when taking care of yourself at home: Don?t drive yourself home if you were given pain medicine for your headache. Instead, have someone else drive you home. Try to sleep when you get home. You should feel much better when you wake up. Apply heat to the back of your neck to ease a neck muscle spasm. Take care of a migraine headache by putting an ice pack on your forehead or at the base of your skull. If you have nausea or vomiting, eat a light diet until your headache eases. If you have a migraine headache, use sunglasses when in the daylight or around bright indoor lighting until your symptoms get better. Bright glaring light can make this type of headache worse. Follow-up care Follow up with your healthcare provider, or as advised. Talk with your provider if you have frequent headaches. They can help figure out a treatment plan. By knowing the earliest signs of headache, and starting treatment right away, you may be able to stop the pain yourself. When to get medical advice Call your healthcare provider right away if any of the following occur: Your head pain suddenly gets worse after sexual intercourse or strenuous activity Your head pain doesn?t get better within 24 hours You have new symptoms You aren?t able to keep liquids down (repeated vomiting) Fever of 100.4F (38C) or higher, or as directed by your healthcare provider Stiff neck Extreme drowsiness, confusion, or fainting Dizziness or dizziness with spinning sensation (vertigo) Weakness in an arm or leg or one side of your face You have trouble talking or seeing Last Reviewed Date: 2022 00:00:00 [id number] [employer]. All rights reserved. This information is not intended as a substitute for professional medical care. Always follow your healthcare professional's instructions. * Care Plan - Angel Donovan RN - 05/30/2024 5:35 AM EDT Clinical Goal(s): Pts SBP will remain under 150 this shift (05/29/24 1169) Possible barriers to meeting goal(s)/advancing plan of care: Pt. Disease process Stability of the patient: Moderately stable - low risk of patient condition declining or worsening Summary regarding today's goal(s): Met: Pt. Systolic bp remained above 150 this shift Recommendations: Keep monitoring pt. BP and give medication as ordered in mar * ED Circuit Court Judge Note - Gina Ohara RN - 05/29/2024 10:51 PM EDT Report called to Angel on 3B. * Medical Necessity - Efren Lazcano, Utilization Review Staff - 05/29/2024 10:18 PM EDT AdmissionCare Guideline: General Observation - OBS, Observation Based on the indications selected for the patient, the bed status of Observation was determined to be MET The following indications were selected as present at the time of evaluation of the patient: - Observation Care Admission Criteria - Observation care is indicated for ALL of the following: - Clinical care needed is not appropriate for lower level of care (ie, discharge to outpatient setting not appropriate). - Clinical care (eg, testing, monitoring, or treatment) needed beyond usual emergency department time frame (eg, 3 to 4 hours) - Patient has clinical condition for which observation care is needed, as indicated by 1 or more ofthe following: - Neurologic condition or finding (eg, Altered mental status, confusion, weakness, dizziness, ataxia, exacerbation of neuromuscular disease or movement disorder, diplopia, neuralgia) Additional Information: Screening for cardiovascular condition Hypertension, unspecified type - uncontrolled Acute intractable headache, unspecified headache type marlena AdmissionCare documentation entered by: Efren Lazcano [facility] ROI², 28th edition, Copyright 2023 [facility] [employer] All Rights Reserved. [id number]:18:27-04:00 Solely for purpose of utilization review and payment; not a diagnostic tool documented in this encounter Plan of Treatment Upcoming Encounters Date Type Department Care Team (Late st Contact Info) Description 06/13/2024 11:10 AM EDT Office [facility] [address] [facility] [phone] Angelic Pereira DO [address] [facility] [id number] Scheduled Orders Name Type Priority Associated Diagnoses Orde r Schedule EKG EKG STAT Screening for cardiovascular condition One Time for 1 Occurrences starting 05/29/2024 until 05/29/2024 Scheduled Procedures Name Priority Associated Diagnoses Date/Ti me ESOPHAGOGASTRODUODENOSCOPY ( EGD), FLEXIBLE, TRANSORAL, DIAGNOSTIC Recall Portal hypertension (HCC) COLONOSCOPY FLEXIBLE PROXIMAL DIAGNOSTIC Recall History of colon polyps Health Maintenance Due Date Last Done Comments Pneumococcal Vaccine: Pediatrics (0 to 5 Years) and At-Risk Patients (6 to 64 Years) (1 of 2 - PCV) 11/26/1993 Albumin/Creatinine Ratio 11/26/2005 Hepatitis B Vaccine (1 of 3 - 19+ 3-dose series) 11/26/2006 *NEPHROLOGY REFERRAL DUE TO RESISTANT HTN 01/01/2024 Depression Monitoring 01/30/2024 01/29/2023 COVID-19 Vaccine (2 - season) 2024 08/07/2021 Influenza Vaccine (FLU shot) (#1) 2024 GFR 05/29/2025 05/29/2024, 11/15, 07/14/2023, Additional history exists Diabetes Screening 05/29/2027 05/29/2024, 1 , 12/04/2023, Additional history exists DTap/Tdap Vaccines (2 - Td or Tdap) 02/25/2029 02/25/2019 Colonoscopy 11/26/2032 09/08/2022 RETIRED - COLONOSCOPY-EVERY 5 YRS AGES [...] Procedure Name Priority Date/Time Associated Diagnosis Comments URINALYSIS, REFLEX TO CULTURE STAT 05/30/2024 12:52 AM EDT URINALYSIS, REFLEX TO CULTURE (CUP ONLY) STAT 05/30/2024 12:52 AM EDT URINALYSIS, REFLEX TO CULTURE (NOT FOR NEUTROPENIC PATIENTS) STAT 05/30/2024 12:52 AM EDT CULTURE, URINE, QUANTITATIVE STAT 05/30/2024 12:52 AM EDT TOXICOLOGY, URINESCREEN W/O CONFIRMATION Routine 05/30/2024 12:52 AM EDT ETHANOL, MEDICAL Routine 05/29/2024 10:4 1 PM EDT CTA NECK W CONTRAST STROKE ALERT STAT 05/29/2024 8:45 PM EDT CTA HEAD W CONTRAST STROKE ALERT STAT 05/29/2024 8:[address] HEAD/BRAIN WO CONTRAST STROKE ALERT STAT 05/29/2024 8:45 PM EDT EXTRA HUNT TOP Routine 05/29/2024 8:28 PM EDT DIFFERENTIAL, AUTOMATED STAT 05/29/2024 8:28 PM EDT TROPONIN T, HIGH SENSITIVITY Routine 05/29/2024 8:28 PM EDT TSH WITH FREE T4 IF INDICATED Add-on 05/29/2024 8:28 PM EDT COMPREHENSIVE METABOLIC PANEL STAT 05/29/2024 8:28 PM EDT CBC STAT 05/29/2024 8:28 PM EDT PT INR STAT 05/29/2024 8:28 PM EDT CBC STAT 05/29/2024 8:28 PM EDT DIFFERENTIAL, TECHNOLOGIST REVIEW Routine 05/29/2024 8:28 PM EDT T4, FREE Routine 05/29/2024 8:28 PM EDT GLUCOSE METER, POINT OF CARE FRANCISCA 05/29/2024 8:20 PM EDT documented in this encounter Results * CULTURE, URINE, QUANTITATIVE (05/30/2024 12:52 AM EDT) Culture Growth No significant growth 05/31/2024 8:22 AM EDT LABORATORY [facility] Urine Urine specimen obtained by clean catch procedure / Unknown Non-blood Collection / Unknown 05/30/2024 12:52 AM EDT 05/30/2024 12:55 AM EDT Nithin De La Rosa DO LAB MICRO - GENERAL ORDERABLES LABORATORY [facility] [address] [place] [address] * (ABNORMAL) TOXICOLOGY, URINESCREEN W/O CONFIRMATION (05/30/2024 12:52 AM EDT) Amphetamines Screen, U Positive(A) Negative 05/30/2024 1:23 AM EDT LABORATORY [facility] Benzodiazepines Screen, U Positive(A) Negative 05/30/2024 1:23 AM EDT LABORATORY [facility] Cannabinoids Screen, U Positive(A) Negative 05/30/2024 1:23 AM EDT LABORATORY [facility] Cocaine Metabolite Screen, U Negative Negative 05/30/2024 1:23 AM EDT LABORATORY [facility] Fentanyl Screen, U Negative Negative 2023 1:23 AM EDT LABORATORY [facility] Hydrocodone Screen, U Negative Negative 05/30/2024 1:23 AM EDT LABORATORY [facility] Methadone Metabolite Screen, U Negative Negative 05/30/2024 1:23 AM EDT LABORATORY [facility] Morphine/Codeine Screen, U Negative Negative 05/30/2024 1:23 AM EDT LABORATORY [facility] Oxycodone Screen, U Negative Negative 05/30/2024 1:23 AM EDT LABORATORY [facility] Urine Urine specimen obtained by clean catch procedure / Unknown Non-blood Collection / Unknown 05/30/2024 12:52 AM EDT 05/30/2024 12:56 AM EDT Narrative LABORATORY [facility] - 05/30/2024 1:23 AM EDT Cutoff Concentrations: Drug Level Amphetamines 500 ng/mL Benzodiazepines 100 ng/mL Cannabinoids 50 ng/mL Cocaine Metabolite 150 ng/mL Fentanyl 1 ng/mL Hydrocodone / Hydromorphone 300 ng/mL Methadone Metabolite 100 ng/mL Morphine / Codeine 300 ng/mL Oxycodone / Oxymorphone 100 ng/mL Screening results are presumptive and can only be used for medical purposes. Confirmatory testing is available upon request. Sera LUBIN LAB URINE ORDERABLES LABORATORY [facility] [address] [place] [address] * (ABNORMAL) URINALYSIS, REFLEX TO CULTURE (05/30/2024 12:52 AM EDT) Color, Urine Yellow Light Yellow, Yellow, Dark Yellow 05/30/2024 1:10 AM EDT LABORATORY [facility] Clarity, Urine Clear Clear 05/30/2024 1:10 AM EDT LAB[facility]ATORY [facility] Glucose, Urine Negative Negative mg/dL 05/30/2024 1:10 AM EDT LABORATORY [facility] Bilirubin, Urine Negative Negative 05/30/2024 1:10 AM EDT LABORATORY [facility] Ketone, Urine Negative Negative mg/dL 05/30/2024 1:10 AM EDT LABORATORY [facility] Specific Plover, Urine >1.060(H) 1.003 - 1.030 05/30/2024 1:10 AM EDT LABORATORY [facility] Blood, Urine Negative Negative 05/30/2024 1:10 AM EDT LABORATORY [facility] pH, Urine 6.0 5.0 - 7.5 Units 05/30/2024 1:10 AM EDT LABORATORY [facility] Protein, Urine Negative Negative mg/dL 05/30/2024 1:10 AM EDT LABORATORY [facility] Urobilinogen, Urine 1.0 0.2, 1.0 mg/dL 05/30/2024 1:10 AM EDT LABORATORY [facility] Nitrite, Urine Negative Negative 05/30/2024 1:10 AM EDT LABORATORY [facility] Esterase, Urine Negative Negative 05/30/2024 1:10 AM EDT LABORATORY [facility] RBC, Urine 0-2 0 - 2 /HPF 05/30/2024 1:10 AM EDT LABORATORY [facility] WBC, Urine 0-2 0 - 2 /HPF 05/30/2024 1:10 AM EDT LABORATORY [facility] Bacteria, Urine 51-100(A) 0 - 25 /HPF 05/30/2024 1:10 AM EDT LABORATORY [facility] Squamous Epithelial Cells, Urine Many(A) None /HPF 05/30/2024 1:10 AM EDT LABORATORY [facility] Culture, Urine 05/30/2024 1:10 AM EDT LABORATORY [facility] Comment:Quantitative urine c ulture to be performed Urine Urine specimen obtained by clean catch procedure / Unknown Non-blood Collection / Unknown 05/30/2024 12:52 AM EDT 05/30/2024 12:55 AM EDT [facility] URINE ORDERABLES Performing Organization Address City/[facility]/ZIP Co de Phone Number LABORATORY [address] [phone] * URINALYSIS, REFLEX TO CULTURE (CUP ONLY) (05/30/2024 12:52 AM EDT) Urinalysis, Reflex to Culture Specimen Specimen collected and received 05/30/2024 2:01 AM EDT LABORATORY [facility] Urine Urine specimen obtained by clean catch procedure / Unknown Non-blood Collection / Unknown 05/30/2024 12:52 AM EDT 05/30/2024 12:56 AM EDT [facility] URINE ORDERABLES LABORATORY [address] [id number] * (ABNORMAL) ETHANOL, MEDICAL (05/29/2024 10:41 PM EDT) Ethanol, Medical 50(H) Negative mg/dL 05/29/2024 11:03 PM EDT LABORATORY [facility] Blood Venous blood specimen / Unknown Venipuncture / Unknown 05/29/2024 10:41 PM EDT 05/29/2024 10:45 PM EDT Sera LUBIN LAB BLOOD ORDERABLES LABORATORY [place] [phone] * CTA NECK (05/29/2024 8:45 PM EDT) Anatomical Region Laterality Modality Neck, Head, Cspine, Spine Comput ed Tomography 05/29/2024 9:05 PM EDT Narrative 05/29/2024 9:02 PM EDT EXAM: CTA HEAD; CT HEAD/BRAIN WO CONTRAST; CTA NECK 05/29/2024 8:45 pm HISTORY: focal neurologic deficit, concern for stroke COMPARISON: MRI brain 10/31/2023. TECHNIQUE: CT of the head without intravenous contrast helical acquisition. Sagittal and coronal MPR. CTA of the head without and with intravenous contrast helical acquisition. Sagittal and coronal MPR, CPR, MIP and 3D images. CTA of the neck with intravenous contrast helical acquisition. Sagittal and coronal MPR, CPR, MIP and 3D images. FINDINGS: CT BRAIN: PARENCHYMA: No acute parenchymal hemorrhage. Mild relative RIGHT mesial temporal lobe atrophy unchanged. Otherwise goncalves-white matter differentiation maintained, no evidence of acute territorial infarction. Normal white matter density. No intra- axial mass or mass effect. EXTRA-AXIAL: No acute extraaxial hemorrhage or mass. VENTRICLES: Normal size and configuration for age. MIDLINE STRUCTURES: No shift or herniation. PARANASAL SINUSES/MASTOID AIR CELLS: Unremarkable. CALVARIUM/SOFT TISSUES: Unremarkable. ORBITS: Unremarkable. CTA BRAIN: INTERNAL CAROTID ARTERIES: Unremarkable. ANTERIOR CIRCULATION ANTERIOR CEREBRAL ARTERIES: Unremarkable. ANTERIOR COMMUNICATING ARTERY: Patent. No aneurysm. MIDDLE CEREBRAL ARTERIES: Unremarkable. POSTERIOR CIRCULATION VERTEBRAL ARTERIES: Unremarkable. BASILAR ARTERY: Unremarkable. 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 Otherwise unremarkable. POSTERIOR COMMUNICATING ARTERIES: Patent bilaterally. No aneurysm. CTA NECK: AORTIC ARCH: Normal. SUBCLAVIAN ARTERIES: No significant stenosis. COMMON CAROTID ARTERIES: Unremarkable without stenosis or dissection. RIGHT CAROTID BIFURCATION/ICA: No hemodynamically significant stenosis. LEFT CAROTID BIFURCATION/ICA: No hemodynamically significant stenosis. VERTEBRAL ARTERIES: Symmetric without stenosis or dissection. MISCELLANEOUS: No significant abnormality noted otherwise. IMPRESSION: CT BRAIN: No acute findings. CTA BRAIN: No acute findings. CTA NECK: No acute findings. Negative Result: The information above was relayed directly by me by telephone to CALLIE HARRIS on 05/29/2024 at 9:01 pm who expressed understanding. Procedure Note Haider Webb MD - 05/29/2024 EXAM: CTA HEAD; CT HEAD/BRAIN WO CONTRAST; CTA NECK 05/29/2024 8:45 pm HISTORY: focal neurologic deficit, concern for stroke COMPARISON: MRI brain 10/31/2023. TECHNIQUE: CT of the head without intravenous contrast helical acquisition. [place] coronal MPR. CTA of the head without and with intravenous contrast helical acquisition.Sagittal and coronal MPR, CPR, MIP and 3D images. CTA of the neck with intravenous contrast helical acquisition. [place] coronal MPR, CPR, MIP and 3D images. FINDINGS: CT BRAIN: PARENCHYMA: No acute parenchymal hemorrhage. Mild relative RIGHT mesialtemporal lobe atrophy unchanged. Otherwise goncalves-white matterdifferentiation maintained, no evidence of acute territorial infarction.Normal white matter density. No intra-axial mass or mass effect. EXTRA-AXIAL: No acute extraaxial hemorrhage or mass. VENTRICLES: Normal size and configuration for age. MIDLINE STRUCTURES: No shift or herniation. PARANASAL SINUSES/MASTOID AIR CELLS: Unremarkable. CALVARIUM/SOFT TISSUES: Unremarkable. ORBITS: Unremarkable. CTA BRAIN: INTERNAL CAROTID ARTERIES: Unremarkable. ANTERIOR CIRCULATION ANTERIOR CEREBRAL ARTERIES: Unremarkable. ANTERIOR COMMUNICATING ARTERY: Patent. No aneurysm. MIDDLE CEREBRAL ARTERIES: Unremarkable. POSTERIOR CIRCULATION VERTEBRAL ARTERIES: Unremarkable. BASILAR ARTERY: Unremarkable. 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 Otherwise unremarkable. POSTERIOR COMMUNICATING ARTERIES: Patent bilaterally. No aneurysm. CTA NECK: AORTIC ARCH: Normal. SUBCLAVIAN ARTERIES: No significant stenosis. COMMON CAROTID ARTERIES: Unremarkable without stenosis or dissection. RIGHT CAROTID BIFURCATION/ICA: No hemodynamically significant stenosis. LEFT CAROTID BIFURCATION/ICA: No hemodynamically significant stenosis. VERTEBRAL ARTERIES: Symmetric without stenosis or dissection. MISCELLANEOUS: No significant abnormality noted otherwise. IMPRESSION: CT BRAIN: No acute findings. CTA BRAIN: No acute findings. CTA NECK: No acute findings. Negative Result: The information above was relayed directly by me by telephone to CALLIE HARRIS on 05/29/2024 at 9:01 pm who expressed understanding. Callie Harris PA-C RAD CT * CTA HEAD (05/29/2024 8:45 PM EDT) Anatomical Region Laterality Modality Head, Neck Computed Tomogra phy 05/29/2024 9:05 PM EDT Narrative 05/29/2024 9:02 PM EDT EXAM: CTA HEAD; CT HEAD/BRAIN WO CONTRAST; CTA NECK 05/29/2024 8:45 pm HISTORY: focal neurologic deficit, concern for stroke COMPARISON: MRI brain 10/31/2023. TECHNIQUE: CT of the head without intravenous contrast helical acquisition. Sagittal and coronal MPR. CTA of the head without and with intravenous contrast helical acquisition. Sagittal and coronal MPR, CPR, MIP and 3D images. CTA of the neck with intravenous contrast helical acquisition. Sagittal and coronal MPR, CPR, MIP and 3D images. FINDINGS: CT BRAIN: PARENCHYMA: No acute parenchymal hemorrhage. Mild relative RIGHT mesial temporal lobe atrophy unchanged. Otherwise goncalves-white matter differentiation maintained, no evidence of acute territorial infarction. Normal white matter density. No intra- axial mass or mass effect. EXTRA-AXIAL: No acute extraaxial hemorrhage or mass. VENTRICLES: Normal size and configuration for age. MIDLINE STRUCTURES: No shift or herniation. PARANASAL SINUSES/MASTOID AIR CELLS: Unremarkable. CALVARIUM/SOFT TISSUES: Unremarkable. ORBITS: Unremarkable. CTA BRAIN: INTERNAL CAROTID ARTERIES: Unremarkable. ANTERIOR CIRCULATION ANTERIOR CEREBRAL ARTERIES: Unremarkable. ANTERIOR COMMUNICATING ARTERY: Patent. No aneurysm. MIDDLE CEREBRAL ARTERIES: Unremarkable. POSTERIOR CIRCULATION VERTEBRAL ARTERIES: Unremarkable. BASILAR ARTERY: Unremarkable. 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 Otherwise unremarkable. POSTERIOR COMMUNICATING ARTERIES: Patent bilaterally. No aneurysm. CTA NECK: AORTIC ARCH: Normal. SUBCLAVIAN ARTERIES: No significant stenosis. COMMON CAROTID ARTERIES: Unremarkable without stenosis or dissection. RIGHT CAROTID BIFURCATION/ICA: No hemodynamically significant stenosis. LEFT CAROTID BIFURCATION/ICA: No hemodynamically significant stenosis. VERTEBRAL ARTERIES: Symmetric without stenosis or dissection. MISCELLANEOUS: No significant abnormality noted otherwise. IMPRESSION: CT BRAIN: No acute findings. CTA BRAIN: No acute findings. CTA NECK: No acute findings. Negative Result: The information above was relayed directly by me by telephone to CALLIE HARRIS on 05/29/2024 at 9:01 pm who expressed understanding. Procedure Note Haider Webb MD - 05/29/2024 EXAM: CTA HEAD; CT HEAD/BRAIN WO CONTRAST; CTA NECK 05/29/2024 8:45 pm HISTORY: focal neurologic deficit, concern for stroke COMPARISON: MRI brain 10/31/2023. TECHNIQUE: CT of the head without intravenous contrast helical acquisition. [place] coronal MPR. CTA of the head without and with intravenous contrast helical acquisition.Sagittal and coronal MPR, CPR, MIP and 3D images. CTA of the neck with intravenous contrast helical acquisition. [place] coronal MPR, CPR, MIP and 3D images. FINDINGS: CT BRAIN: PARENCHYMA: No acute parenchymal hemorrhage. Mild relative RIGHT mesialtemporal lobe atrophy unchanged. Otherwise goncalves-white matterdifferentiation maintained, no evidence of acute territorial infarction.Normal white matter density. No intra-axial mass or mass effect. EXTRA-AXIAL: No acute extraaxial hemorrhage or mass. VENTRICLES: Normal size and configuration for age. MIDLINE STRUCTURES: No shift or herniation. PARANASAL SINUSES/MASTOID AIR CELLS: Unremarkable. CALVARIUM/SOFT TISSUES: Unremarkable. ORBITS: Unremarkable. CTA BRAIN: INTERNAL CAROTID ARTERIES: Unremarkable. ANTERIOR CIRCULATION ANTERIOR CEREBRAL ARTERIES: Unremarkable. ANTERIOR COMMUNICATING ARTERY: Patent. No aneurysm. MIDDLE CEREBRAL ARTERIES: Unremarkable. POSTERIOR CIRCULATION VERTEBRAL ARTERIES: Unremarkable. BASILAR ARTERY: Unremarkable. 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 Otherwise unremarkable. POSTERIOR COMMUNICATING ARTERIES: Patent bilaterally. No aneurysm. CTA NECK: AORTIC ARCH: Normal. SUBCLAVIAN ARTERIES: No significant stenosis. COMMON CAROTID ARTERIES: Unremarkable without stenosis or dissection. RIGHT CAROTID BIFURCATION/ICA: No hemodynamically significant stenosis. LEFT CAROTID BIFURCATION/ICA: No hemodynamically significant stenosis. VERTEBRAL ARTERIES: Symmetric without stenosis or dissection. MISCELLANEOUS: No significant abnormality noted otherwise. IMPRESSION: CT BRAIN: No acute findings. CTA BRAIN: No acute findings. CTA NECK: No acute findings. Negative Result: The information above was relayed directly by me by telephone to CALLIE HARRIS on 05/29/2024 at 9:01 pm who expressed understanding. Callie Harris PA-C RAD CT * CT HEAD/BRAIN WO CONTRAST (05/29/2024 8:45 PM EDT) Anatomical Region Laterality Modality Head Computed Tomogra phy 05/29/2024 9:05 PM EDT Narrative 05/29/2024 9:02 PM EDT EXAM: CTA HEAD; CT HEAD/BRAIN WO CONTRAST; CTA NECK 05/29/2024 8:45 pm HISTORY: focal neurologic deficit, concern for stroke COMPARISON: MRI brain 10/31/2023. TECHNIQUE: CT of the head without intravenous contrast helical acquisition. Sagittal and coronal MPR. CTA of the head without and with intravenous contrast helical acquisition. Sagittal and coronal MPR, CPR, MIP and 3D images. CTA of the neck with intravenous contrast helical acquisition. Sagittal and coronal MPR, CPR, MIP and 3D images. FINDINGS: CT BRAIN: PARENCHYMA: No acute parenchymal hemorrhage. Mild relative RIGHT mesial temporal lobe atrophy unchanged. Otherwise goncalves-white matter differentiation maintained, no evidence of acute territorial infarction. Normal white matter density. No intra- axial mass or mass effect. EXTRA-AXIAL: No acute extraaxial hemorrhage or mass. VENTRICLES: Normal size and configuration for age. MIDLINE STRUCTURES: No shift or herniation. PARANASAL SINUSES/MASTOID AIR CELLS: Unremarkable. CALVARIUM/SOFT TISSUES: Unremarkable. ORBITS: Unremarkable. CTA BRAIN: INTERNAL CAROTID ARTERIES: Unremarkable. ANTERIOR CIRCULATION ANTERIOR CEREBRAL ARTERIES: Unremarkable. ANTERIOR COMMUNICATING ARTERY: Patent. No aneurysm. MIDDLE CEREBRAL ARTERIES: Unremarkable. POSTERIOR CIRCULATION VERTEBRAL ARTERIES: Unremarkable. BASILAR ARTERY: Unremarkable. 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 Otherwise unremarkable. POSTERIOR COMMUNICATING ARTERIES: Patent bilaterally. No aneurysm. CTA NECK: AORTIC ARCH: Normal. SUBCLAVIAN ARTERIES: No significant stenosis. COMMON CAROTID ARTERIES: Unremarkable without stenosis or dissection. RIGHT CAROTID BIFURCATION/ICA: No hemodynamically significant stenosis. LEFT CAROTID BIFURCATION/ICA: No hemodynamically significant stenosis. VERTEBRAL ARTERIES: Symmetric without stenosis or dissection. MISCELLANEOUS: No significant abnormality noted otherwise. IMPRESSION: CT BRAIN: No acute findings. CTA BRAIN: No acute findings. CTA NECK: No acute findings. Negative Result: The information above was relayed directly by me by telephone to CALLIE HARRIS on 05/29/2024 at 9:01 pm who expressed understanding. Procedure Note Haider Webb MD - 05/29/2024 EXAM: CTA HEAD; CT HEAD/BRAIN WO CONTRAST; CTA NECK 05/29/2024 8:45 pm HISTORY: focal neurologic deficit, concern for stroke COMPARISON: MRI brain 10/31/2023. TECHNIQUE: CT of the head without intravenous contrast helical acquisition. [place] coronal MPR. CTA of the head without and with intravenous contrast helical acquisition.Sagittal and coronal MPR, CPR, MIP and 3D images. CTA of the neck with intravenous contrast helical acquisition. [place] coronal MPR, CPR, MIP and 3D images. FINDINGS: CT BRAIN: PARENCHYMA: No acute parenchymal hemorrhage. Mild relative RIGHT mesialtemporal lobe atrophy unchanged. Otherwise goncalves-white matterdifferentiation maintained, no evidence of acute territorial infarction.Normal white matter density. No intra-axial mass or mass effect. EXTRA-AXIAL: No acute extraaxial hemorrhage or mass. VENTRICLES: Normal size and configuration for age. MIDLINE STRUCTURES: No shift or herniation. PARANASAL SINUSES/MASTOID AIR CELLS: Unremarkable. CALVARIUM/SOFT TISSUES: Unremarkable. ORBITS: Unremarkable. CTA BRAIN: INTERNAL CAROTID ARTERIES: Unremarkable. ANTERIOR CIRCULATION ANTERIOR CEREBRAL ARTERIES: Unremarkable. ANTERIOR COMMUNICATING ARTERY: Patent. No aneurysm. MIDDLE CEREBRAL ARTERIES: Unremarkable. POSTERIOR CIRCULATION VERTEBRAL ARTERIES: Unremarkable. BASILAR ARTERY: Unremarkable. 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 Otherwise unremarkable. POSTERIOR COMMUNICATING ARTERIES: Patent bilaterally. No aneurysm. CTA NECK: AORTIC ARCH: Normal. SUBCLAVIAN ARTERIES: No significant stenosis. COMMON CAROTID ARTERIES: Unremarkable without stenosis or dissection. RIGHT CAROTID BIFURCATION/ICA: No hemodynamically significant stenosis. LEFT CAROTID BIFURCATION/ICA: No hemodynamically significant stenosis. VERTEBRAL ARTERIES: Symmetric without stenosis or dissection. MISCELLANEOUS: No significant abnormality noted otherwise. IMPRESSION: CT BRAIN: No acute findings. CTA BRAIN: No acute findings. CTA NECK: No acute findings. Negative Result: The information above was relayed directly by me by telephone to CALLIE HARRIS on 05/29/2024 at 9:01 pm who expressed understanding. 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 LAB BLOOD ORDERABLES Performing Organization Address [facility]/ZIP Co de Phone Number LABORATORY [address] [phone] * (ABNORMAL) TSH WITH FREE T4 IF INDICATED (05/29/2024 8:28 PM EDT) TSH 6.12(H) 0.27 - 4.20 uIU/mL 05/29/2024 11:08 PM EDT [facility] Blood Venous blood specimen / Unknown Venipuncture / Unknown 05/29/2024 8:28 PM EDT 05/29/2024 8:32 PM EDT FanSnapNP LAB BLOOD ORDERABLES Performing Organization Address City/[facility]/ZIP Co de Phone Number LABORATORY [address] [phone] * (ABNORMAL) DIFFERENTIAL, TECHNOLOGIST REVIEW (05/29/2024 8:28 PM EDT) WBC 15.57(H) 4.00 - 10.80 K/uL 05/29/2024 9:13 PM EDT LABORATORY GL Neutrophils % 54.0 40.0 - 75.0 % 05/29/2024 9:13 PM EDT LABORATORY [facility] Lymphocytes % 41.0 18.0 - 42.0 % 05/29/2024 9:13 PM EDT LABORATORY [facility] Monocytes % 4.0 1.0 - 11.0 % 05/29/2024 9:13 PM EDT LABORATORY [facility] Eosinophils % 1.0 0.0 - 6.0 % 05/29/2024 9:13 PM EDT LABORATORY GL Absolute Neutrophils 8.41(H) 1.80 - 7.70 K/uL 05/29/2024 9:13 PM EDT LABORATORY GL Absolute Lymphocytes 6.38(H) 1.00 - 4.80 K/uL 05/29/2024 9:13 PM EDT LABORATORY [facility] Absolute Monocytes 0.62 0.00 - 1.10 K/uL 05/29/2024 9:13 PM EDT LABORATORY [facility] Absolute Eosinophils 0.16 0.00 - 0.70 K/uL 05/29/2024 9:13 PM EDT [facility] Blood Venous blood specimen / Unknown Venipuncture / Unknown 05/29/2024 8:28 PM EDT 05/29/2024 8:32 PM EDT Nithin Joyaanton [place]O LAB BLOOD ORDERABLES Performing Organization Address City/[facility]/ZIP Co de Phone Number LABORATORY [address] [phone] * TROPONIN T, HIGH SENSITIVITY (05/29/2024 8:28 PM EDT) Troponin T, High Sensitivity <6 <=14 ng/L 05/29/2024 8:57 PM EDT [facility] Blood Venous blood specimen / Unknown Venipuncture / Unknown 05/29/2024 8:28 PM EDT 05/29/2024 8:32 PM EDT Callie Harris PA-C LAB BLOOD ORDER KEO Performing Organization Address [facility] Co de Phone Number LABORATORY [address] [phone] * DIFFERENTIAL, AUTOMATED (05/29/2024 8:28 PM EDT) Blood Venous blood specimen / Unknown Venipuncture / Unknown 05/29/2024 8:28 PM EDT 05/29/2024 8:32 PM EDT Nithin De La Rosa DO LAB BLOOD ORDERABLES Performing Organization Address [facility]/ZIP Co de Phone Number LABORATORY [address] [phone] * (ABNORMAL) CBC (05/29/2024 8:28 PM EDT) WBC 15.57(H) 4.00 - 10.80 K/uL 05/29/2024 8:36 PM EDT [facility] RBC 5.14 3.85 - 5.15 M/uL 05/29/2024 8:36 PM EDT LABORATORY GL HGB 16.0(H) 12.0 - 15.3 g/dL 05/29/2024 8:36 PM EDT LABORATORY GL HCT 46.5(H) 36.0 - 45.2 % 05/29/2024 8:36 PM EDT [facility] MCV 90.5 81.5 - 97.5 fL 05/29/2024 8:36 PM EDT [facility] MCH 31.1 27.0 - 34.0 pg 05/29/2024 8:36 PM EDT [facility] MCHC 34.4 32.0 - 36.0 g/dL 05/29/2024 8:36 PM EDT [facility] RDW 13.9 11.5 - 15.5 % 05/29/2024 8:36 PM EDT [facility] PLT 312 140 - 400 K/uL 05/29/2024 8:36 PM EDT LAB[facility] MPV 9.4 6.6 - 11.1 fL 05/29/2024 8:36 PM EDT [facility] nRBCs 0 <=0 /100 WBCs 05/29/2024 8:36 PM EDT [facility] Blood Venous blood specimen / Unknown Venipuncture / Unknown 05/29/2024 8:28 PM EDT 05/29/2024 8:32 PM EDT Nithin De La Rosa DO LAB BLOOD ORDERABLES Performing Organization Address City/[facility] Co de Phone Number LABORATORY [address] [phone] * EXTRA HUNT TOP (05/29/2024 8:28 PM EDT) Blood Venous blood specimen / Unknown Venipuncture / Unknown 05/29/2024 8:28 PM EDT 05/29/2024 8:32 PM EDT Nithin De La Rosa DO LAB BLOOD ORDERABLES Performing Organization Address City/[facility]/ZIP Co de Phone Number LABORATORY [address] [place] [address] * PT INR (05/29/2024 8:28 PM EDT) Prothrombin Time 14.4 11.6 - 15.2 seconds 05/29/2024 8:48 PM EDT [facility] INR 1.1 0.8 - 1.2 05/29/2024 8:48 PM EDT [facility] Blood Venous blood specimen / Unknown Venipuncture / Unknown 05/29/2024 8:28 PM EDT 05/29/2024 8:32 PM EDT Narrative LAB[facility]ATORY [facility] - 05/29/2024 8:48 PM EDT Warfarin Therapy INR: 2.0-3.0 conventional anticoagulation INR: 2.5-3.5 high intensity anticoagulation Nithin De La Rosa DO LAB BLOOD ORDERABLES Performing Organization Address City/State/[facility] Co de Phone Number LABORATORY [facility] [address] [place] [address] * (ABNORMAL) COMPREHENSIVE METABOLIC PANEL (05/29/2024 8:28 PM EDT) BUN 6 6 - 20 mg/dL 05/29/2024 9:59 PM EDT [facility] CREATININE 0.8 0.5 - 1.0 mg/dL 05/29/2024 9:59 PM EDT [facility] EGFR >90 >=60 mL/min 05/29/2024 9:59 PM EDT [facility] Comment:eGFR is calculated b ased on the CKD-EPI 2020 equation. SODIUM 138 135 - 146 mmol/L 05/29/2024 9:59 PM EDT LABORATORY GL POTASSIUM 3.8 3.5 - 5.1 mmol/L 05/29/2024 9:59 PM EDT LABORATORY GL CHLORIDE 102 98 - 107 mmol/L 05/29/2024 9:59 PM EDT LABORATORY GL CO2 18(L) 22 - 32 mmol/L 05/29/2024 9:59 PM EDT LABORATORY GL ANION GAP 18(H) 7 - 15 mmol/L 05/29/2024 9:59 PM EDT LABORATORY GL GLUCOSE 94 70 - 120 mg/dL 05/29/2024 9:59 PM EDT LAB[facility]ATORY [facility] Albumin 4.9 3.8 - 5.0 g/dL 05/29/2024 9:59 PM EDT LABORATORY [facility] AST 48(H) 10 - 35 U/L 05/29/2024 9:59 PM EDT LAB[facility]ORY [facility] Alkaline Phosphatase 248(H) 35 - 130 U/L 05/29/2024 9:59 PM EDT LAB[facility]ORY [facility] Bilirubin, Total 0.7 <=1.2 mg/dL 05/29/2024 9:59 PM EDT LAB[facility]ORY [facility] CALCIUM 10.1 8.4 - 10.2 mg/dL 05/29/2024 9:59 PM EDT LAB[facility]ORY [facility] Protein 9.1(H) 6.0 - 8.3 g/dL 05/29/2024 9:59 PM EDT LABORATORY [facility] ALT 32 10 - 35 U/L 05/29/2024 9:59 PM EDT LAB[facility] Blood Venous blood specimen / Unknown Venipuncture / Unknown 05/29/2024 8:28 PM EDT 05/29/2024 8:32 PM EDT Nithin Joyaanton DO LAB BLOOD ORDERABLES LABORATORY [facility] [address] [place] [id number] * GLUCOSE METER, POINT OF CARE (05/29/2024 8:20 PM EDT) [facility] GLUCOSE - POCT 107 70 - 120 mg/dL 05/29/2024 8:23 PM EDT [facility] Blood Whole blood specimen / Unknown 05/29/2024 8:20 PM EDT 05/29/2024 8:23 PM EDT No Physician Data Unknown LAB POINT OF C ARE TEST DOCKED DEVICE UNSOLICITED RESULTS [facility] [address] [place] [address] documented in this encounter Visit Diagnoses Diagnosis Hypertensive urgency- Primary Unspecified essential hypertension Screening for cardiovascular condition Screening for other and unspecified cardiovascular conditions Hypertension, unspecified type Acute intractable headache, unspecified headache type Chest pain Chest pain, unspecified Intractable migraine with aura without status migrainosus Migraine with aura, with intractable migraine, so stated, without mention of status migrainosus Generalized anxiety disorder Post-traumatic stress disorder, unspecified Fatty liver Other chronic nonalcoholic liver disease Tobacco abuse Tobacco use disorder ADHD (attention deficit hyperactivity disorder), combined type Attention deficit disorder with hyperactivity Bipolar 1 disorder (HCC) Bipolar I disorder, most recent episode (or current) unspecified Opioid dependence in remission (HCC) Opioid type dependence, in remission documented in this encounter Administered Medications Inactive Administered Medications - up to 3 most recent administrations Medication Order MAR Action Action Date Dose Rate Site Acetaminophen (Tylenol) tab 650 mg 650 mg, Oral, ONCE, On Thu05/29/24 at 2245, For 1 dose, Maximum of 4 grams (4000 mg) per day. Given 05/29/2024 10:22 PM EDT 650 mg Acetaminophen (Tylenol) tab 650 mg 650 mg, Oral, Q6H PRN Pain, Mild, Fever >38C(100.5F), Headache, Starting on Thu05/29/24 at 2316, Until Thu05/31/24 at 1426, Maximum of 4 grams (4000 mg) per day. Given 05/31/2024 2:27 AM EDT 650 mg Given 05/30/2024 5:46 PM EDT 650 mg Given 05/30/2024 5:23 AM EDT 650 mg amLODIPine (Norvasc) tab 5 mg 5 mg, Oral, Daily(AM), First dose on Thu05/31/24 at 0900, Until Discontinued Given 05/31/2024 8:22 AM EDT 5 mg Cariprazine HCl (Vraylar) cap 1.5 mg 1.5 mg, Oral, Daily(AM), First dose on Thu05/30/24 at 0900, Until Discontinued Given 05/31/2024 8:22 AM EDT 1.5 mg Given 05/30/2024 8:56 AM EDT 1.5 mg cloNIDine (Catapres) tab 100 mcg 100 mcg, Oral, ONCE, On Thu05/29/24 at 2315, For 1 dose, Hold for SBP below 100 and notify service if dose is held Given 05/29/2024 10:44 PM EDT 100 mcg dexamethasone sod phosphate PF (Decadron) 10 MG/ML inj 10 mg 10 mg, IV Push, ONCE, On Thu05/29/24 at 2130, For 1 dose, PROTECT FROM LIGHT Given 05/29/2024 9:04 PM EDT 10 mg diphenhydrAMINE (Benadryl) inj 25 mg 25 mg, Intravenous, ONCE, On Thu05/29/24 at 2130, For 1 dose Given 05/29/2024 9:07 PM EDT 25 mg Enoxaparin (Lovenox) inj 40 mg 40 mg, Subcutaneous, Daily(AM), First dose on Thu05/30/24 at 0900, Until Discontinued, If patient is on warfarin, inform provider if daily INR value is 2 or greater! folic acid tab 1 mg 1 mg (1,000 mcg), Oral, EVERY OTHER DAY, First dose on Thu05/30/24 at 0800, Until Discontinued Given 05/30/2024 8:56 AM EDT 1 mg HYDROmorphone (Dilaudid) inj 0.5 mg 0.5 mg, IV Push, ONCE, On Thu05/29/24 at 2345, For 1 dose Given 05/29/2024 11:50 PM EDT 0.5 mg HYDROmorphone (Dilaudid) inj 0.5 mg 0.5 mg, IV Push, ONCE, On Thu05/30/24 at 0230, For 1 dose Given 05/30/2024 2:07 AM EDT 0.5 mg HYDROmorphone (Dilaudid) inj 0.5 mg 0.5 mg, IV Push, Q4H PRN Pain, Severe, Starting on Thu05/30/24 at 0612, Until Thu05/31/24 at 1426, For 2 days Given 05/31/2024 8:53 AM EDT 0.5 mg Given 05/31/2024 4:44 AM EDT 0.5 mg Given 05/30/2024 11:55 PM EDT 0.5 mg Iopamidol (Isovue 370) inj 80 mL 80 mL, Intravenous, ONCE, On Thu05/29/24 at 2130, For 1 dose, Radiology Medication Routing (Non-IR) Given 05/29/2024 8:45 PM EDT 65 mL keTORolac (Toradol) 15 MG/ML inj 15 mg 15 mg, IV Push, Q6H PRN Pain, Moderate, Starting on Thu05/30/24 at 1857, Until Thu05/31/24 at 1426, For 2 doses Given 05/30/2024 9:10 PM EDT 15 mg keTORolac (Toradol) 30 MG/ML inj 15 mg 15 mg, IV Push, Q6H PRN Pain, Moderate, Starting on Thu05/30/24 at 0300, Until Thu05/30/24 at 1214, For 2 doses Given 05/30/2024 12:14 PM EDT 15 mg Given 05/30/2024 4:11 AM EDT 15 mg keTORolac (Toradol) 30 MG/ML inj 30 mg 30 mg, IV Push, ONCE, On Thu05/29/24 at 2130, For 1 dose, Confirm patient status before giving the medication! Given 05/29/2024 9:03 PM EDT 30 mg lamoTRIgine (LaMICtal) tab 25 mg 25 mg, Oral, TID(AM/NOON/HS), First dose (after last modification) on Thu05/30/24 at 0030, Until Discontinued Given 05/31/2024 5:47 AM EDT 25 mg Given 05/30/2024 9:10 PM EDT 25 mg Given 05/30/2024 12:19 PM EDT 25 mg lidocaine 2 % inj 200 mg 200 mg (10 mL), Subcutaneous, ONCE, On Thu05/29/24 at 2245, For 1 dose Given 05/29/2024 11:29 PM EDT 200 mg Othe r-Specify LORazepam (Ativan) tab 1 mg 1 mg, Oral, Q12H PRN Anxiety, Starting on Thu05/29/24 at 2321, Until Thu05/31/24 at 1426 Given 05/31/2024 8:53 AM EDT 1 mg Given 05/30/2024 9:10 PM EDT 1 mg Given 05/30/2024 9:02 AM EDT 1 mg magnesium sulfate 1 g in d5w 100mL LOCKED DOSE 1 g, IV Piggyback, ONCE, 1 dose, On Thu05/29/24 at 2130, Administer over 30 Minutes New Bag 05/29/2024 9:40 PM EDT 1 g 200 mL/hr methylPREDNISolone sodium succ (SOLU-Medrol) inj 40 mg 40 mg, Intravenous, ONCE, On Thu05/30/24 at 1015, For 1 dose Given 05/30/2024 10:33 AM EDT 40 mg Metoclopramide (Reglan) inj 5 mg 5 mg, IV Push, ONCE, On Thu05/29/24 at 2245, For 1 dose Given 05/29/2024 10:22 PM EDT 5 mg multivitamin (Mvi) 1 Tablet 1 Tablet, Oral, DAILY NOON, First dose on Thu05/30/24 at 1200, Until Discontinued Given 05/30/2024 12:19 PM EDT 1 Tablet Nicotine (Nicoderm CQ) 21 MG/24HR patch 1 Patch 1 Patch, Transdermal, Q24H, First dose on Thu05/30/24 at 0000, Until Discontinued, Place on clean, hairless area. Remove for patient showers. Change every 24 hours WASTE INFO: Return packaging and waste medication in zip lock bag to pharmacy - [facility] container. Patch Applied 05/30/2024 11:56 PM EDT 1 Patch Arm Right Upper Patch Applied 05/29/2024 11:50 PM EDT 1 Patch Arm Right Upper NSS 0.9% 1,000 mL bolus infusion IV Piggyback, at 1,000 mL/hr Administer over 60 Minutes, Administer entire volume within 60 minutes or less., ONCE, 1 dose, On Thu05/29/24 at 2130 New Bag 05/29/2024 9:03 PM EDT 1,000 mL 1000 mL/hr ondansetron (Zofran) inj 4 mg 4 mg, IV Push, ONCE, On Thu05/29/24 at 2245, For 1 dose Given 05/29/2024 10:21 PM EDT 4 mg oxygen GAS Inhalation, OXYGEN, First dose on Thu05/30/24 at 0000, Until Discontinued, Device/Managed by: Low Flow Device, Goal SPO2 (%): 91-95, Starting Device: Nasal Cannula, Initial Flow Rate (LPM): 2, Lowest Support: Nasal Cannula: Flow 0-6 LPM. Titrate up/down by 1 LPM., Titration Interval: Q2 minutes and as needed., Notify Provider: For sudden DECREASE in resting SPO2 to less than 85% and when escalating delivery device., Wean patient off Oxygen when the oxygen saturation is greater than or equal to 93% Oxygen On 05/30/2024 12:00 AM EDT prazosin (Minipress) cap 1 mg 1 mg, Oral, HS, First dose on Thu05/30/24 at 2200, Until Discontinued, Hold for SBP below 100 and notify service if dose is held Given 05/30/2024 9:10 PM EDT 1 mg predniSONE (Deltasone) tab 40 mg 40 mg, Oral, Daily(AM), First dose on Thu05/31/24 at 0900, Until Discontinued Given 05/31/2024 8:22 AM EDT 40 mg prochlorperazine (Compazine) inj 5 mg 5 mg, Intravenous, ONCE, On Thu05/29/24 at 2130, For 1 dose Given 05/29/2024 9:11 PM EDT 5 mg sodium chloride 0.9 % flush peripheral simona 3 mL 3 mL, IV Push, QSHIFT, First dose on Thu05/30/24 at 0000, Until Discontinued, Do not flush if lock, PICC, or central line not in place; IV infusing or unable to flush. Given 05/31/2024 8:23 AM EDT 3 mL Given 05/31/2024 12:00 AM EDT 3 mL Given 05/30/2024 4:00 PM EDT 3 mL sodium chloride 0.9 % flush/inj 3 mL 3 mL, IV Push, PRN Other, Line Patency, Starting on Thu05/29/24 at 2314, Until Thu05/31/24 at 1426, Do not flush if lock, PICC, or central line not in place, IV infusing or unable to flush Thiamine (Vitamin B-1) tab 100 mg 100 mg, Oral, Daily(AM), First dose on Thu05/30/24 at 0900, Until Discontinued Given 05/31/2024 8:22 AM EDT 100 mg Given 05/30/2024 8:56 AM EDT 100 mg traZODone (Desyrel) tab 50 mg 50 mg, Oral, QHS PRN Insomnia, Starting on Thu05/29/24 at 2313, Until Thu05/31/24 at 1426 Given 05/30/2024 9:10 PM EDT 50 mg documented in this encounter Active and Recently Administered Medications Times are shown in EDT. Scheduled Medication Order 05/29/2024 05/30/2024 05/31/2024 Acetaminophen (Tylenol) tab 650 mg (COMPLETED) 650 mg, Oral, ONCE, On 05/29/24 at 2245, For 1 dose, Maximum of 4 grams (4000 mg) per day. 2221 (Given - Provider: Gina Ohara, RN) amLODIPine (Norvasc) tab 5 mg 5 mg, Oral, Daily(AM), First dose on Thu05/31/24 at 0900, Until Discontinued 08 (Given - Provid er: Keiko Hobson, BEAN) Cariprazine HCl (Vraylar) cap 1.5 mg 1.5 mg, Oral, Daily(AM), First dose on Thu05/30/24 at 0900, Until Discontinued 08 (Given - Provider: Jacklyn Garcia, BEAN) 821 (Given - Provider: Keiko Hobson, BEAN) cloNIDine (Catapres) tab 100 mcg (COMPLETED) 100 mcg, Oral, ONCE, On Thu05/29/24 at 2315, For 1 dose, Hold for SBP below 100 and notify service if dose is held 2243 (Given - Provider: Gina Ohara, BEAN) dexamethasone sod phosphate PF (Decadron) 10 MG/ML inj 10 mg (COMPLETED) 10 mg, IV Push, ONCE, On Thu05/29/24 at 2130, For 1 dose, PROTECT FROM LIGHT 2103 (Given - Provider: Linda Lewis, BEAN) diphenhydrAMINE (Benadryl) inj 25 mg (COMPLETED) 25 mg, Intravenous, ONCE, On 05/29/24 at 2130, For 1 dose 2106 (Given - Provider: Linda Lewis, BEAN) Enoxaparin (Lovenox) inj 40 mg 40 mg, Subcutaneous, Daily(AM), First dose on Thu05/30/24 at 0900, Until Discontinued, If patient is on warfarin, inform provider if daily INR value is 2 or greater! 0900 (Not Given - Provider: Jacklyn Garcia RN - Reason: Refused-Notify Provider) 0900 (Not Given - Provider: Jacklyn Garcia RN - Reason: Refused-Notify Provider) folic acid tab 1 mg 1 mg (1,000 mcg), Oral, EVERY OTHER DAY, First dose on Thu05/30/24 at 0800, Until Discontinued 0856 (Given - Provider: Jacklyn Garcia RN) HYDROmorphone (Dilaudid) inj 0.5 mg (COMPLETED) 0.5 mg, IV Push, ONCE, On 05/29/24 at 2345, For 1 dose 2350 (Given - Provider: Angel Donovan RN) HYDROmorphone (Dilaudid) inj 0.5 mg (COMPLETED) 0.5 mg, IV Push, ONCE, On Thu05/30/24 at 0230, For 1 dose 0207 (Given - Provider: Angel Donovan RN) Iopamidol (Isovue 370) inj 80 mL (COMPLETED) 80 mL, Intravenous, ONCE, On Thu05/29/24 at 2130, For 1 dose, Radiology Medication Routing (Non-IR) 2044 (Given - Provider: Xiomy Baca, RT) keTORolac (Toradol) 30 MG/ML inj 30 mg (COMPLETED) 30 mg, IV Push, ONCE, On Thu05/29/24 at 2130, For 1 dose, Confirm patient status before giving the medication! 2102 (Given - Provider: Linda Lewis RN) lamoTRIgine (LaMICtal) tab 25 mg 25 mg, Oral, TID(AM/NOON/HS), First dose (after last modification) on Thu05/30/24 at 0030, Until Discontinued 0029 (Given - Provider: Angel Donovan RN)0408 (Given - Provider: Angel Donovan RN)1219 (Given - Provider: Jacklyn aGrcia RN)2110 (Given - Provider: Jh Goncalves RN) 0547 (Given - Provider: Melissa Tolentino LPN) lidocaine 2 % inj 200 mg (COMPLETED) 200 mg (10 mL), Subcutaneous, ONCE, On Thu05/29/24 at 2245, For 1 dose 2329 (Given - Provider: Reyna Melendrez RN - Comment: adomized by Dr. De La Rosa) magnesium sulfate 1 g in d5w 100mL LOCKED DOSE (COMPLETED) 1 g, IV Piggyback, ONCE, 1 dose, On 05/29/24 at 2130, Administer over 30 Minutes 2139 (New Bag - Provider: Gina Ohara, BEAN)2207 (Stopped - Provider: Gina Ohara, BEAN) methylPREDNISolone sodium succ (SOLU-Medrol) inj 40 mg (COMPLETED) 40 mg, Intravenous, ONCE, On Thu05/30/24 at 1015, For 1 dose 1033 (Given - Provider: Jacklyn Garcia, BEAN) Metoclopramide (Reglan) inj 5 mg (COMPLETED) 5 mg, IV Push, ONCE, On 05/29/24 at 2245, For 1 dose 222 (Given - Provider: Gina Ohara, BEAN) multivitamin (Mvi) 1 Tablet 1 Tablet, Oral, DAILY NOON, First dose on Thu05/30/24 at 1200, Until Discontinued 1219 (Given - Provider: Jacklyn Garcia, BEAN) Nicotine (Nicoderm CQ) 21 MG/24HR patch 1 Patch 1 Patch, Transdermal, Q24H, First dose on Thu05/30/24 at 0000, Until Discontinued, Place on clean, hairless area. Remove for patient showers. Change every 24 hours WASTE INFO: Return packaging and waste medication in zip lock bag to pharmacy - [facility] container. 2350 (Patch Applied - Provider: Angel Donovan RN) 2350 (Patch Removed - Provider: Yanna Galan, BEAN)2356 (Patch Applied - Provider: Yanna Galan, BEAN) 1026 (Due: Patch Removed - Provider: Discharge, Physician - Comment: Time automatically adjusted from order being discontinued) NSS 0.9% 1,000 mL bolus infusion (COMPLETED) IV Piggyback, at 1,000 mL/hr Administer over 60 Minutes, Administer entire volume within 60 minutes or less., ONCE, 1 dose, On Thu05/29/24 at 2130 210 (New Bag - Provider: Linda Lewis RN)2203 (Stopped - Provider: Gina Ohara, BEAN) ondansetron (Zofran) inj 4 mg (COMPLETED) 4 mg, IV Push, ONCE, On Thu05/29/24 at 2245, For 1 dose 222 (Given - Provider: Gina Ohara, BEAN) oxygen GAS Inhalation, OXYGEN, First dose on Thu05/30/24 at 0000, Until Discontinued, Device/Managed by: Low Flow Device, Goal SPO2 (%): 91-95, Starting Device: Nasal Cannula, Initial Flow Rate (LPM): 2, Lowest Support: Nasal Cannula: Flow 0-6 LPM. Titrate up/down by 1 LPM., Titration Interval: Q2 minutes and as needed., Notify Provider: For sudden DECREASE in resting SPO2 to less than 85% and when escalating delivery device., Wean patient off Oxygen when the oxygen saturation is greater than or equal to 93% 0000 (Oxygen On - Provider: Jasmyn Reagan RN)0800 (Oxygen Off - Provider: Jacklyn Garcia RN)1600 (Oxygen Off - Provider: Jacklyn Garcia RN) 0000 (Oxygen Off - Provider: Melissa Tolentino LPN)08 (Oxygen Off - Provider: Keiko Hobson RN) prazosin (Minipress) cap 1 mg 1 mg, Oral, HS, First dose on Thu05/30/24 at 2200, Until Discontinued, Hold for SBP below 100 and notify service if dose is held 2109 (Given - Provider: Jh Goncalves RN) predniSONE (Deltasone) tab 40 mg 40 mg, Oral, Daily(AM), First dose on Thu05/31/24 at 0900, Until Discontinued 821 (Given - Provid er: Keiko Hobson, BEAN) prochlorperazine (Compazine) inj 5 mg (COMPLETED) 5 mg, Intravenous, ONCE, On Thu05/29/24 at 2130, For 1 dose 2110 (Given - Provider: Linda Lewis RN) sodium chloride 0.9 % flush peripheral simona 3 mL 3 mL, IV Push, QSHIFT, First dose on Thu05/30/24 at 0000, Until Discontinued, Do not flush if lock, PICC, or central line not in place; IV infusing or unable to flush. 0000 (Given - Provider: Jasmyn Reagan RN)0800 (Given - Provider: Jacklyn Garcia RN)1600 (Given - Provider: Jacklyn Garcia RN) 0000 (Given - Provider: Melissa Tolentino LPN)0823 (Given - Provider: Keiko Hobson, BEAN) Thiamine (Vitamin B-1) tab 100 mg 100 mg, Oral, Daily(AM), First dose on Thu05/30/24 at 0900, Until Discontinued 0856 (Given - Provider: Jacklyn Garcia RN) 0822 (Given - Provider: Keiko Hobson, BEAN) PRN Medication Order 05/29/2024 05/30/2024 05/31/2024 Acetaminophen (Tylenol) tab 650 mg 650 mg, Oral, Q6H PRN Pain, Mild, Fever >38C(100.5F), Headache, Starting on 05/29/24 at 2316, Until Thu05/31/24 at 1426, Maximum of 4 grams (4000 mg) per day. 0523 (Given - Provider: Angel Donovan RN)1746 (Given - Provider: Jh Goncalves RN) 0227 (Given - Provider: Melissa Tolentino LPN) HYDROmorphone (Dilaudid) inj 0.5 mg 0.5 mg, IV Push, Q4H PRN Pain, Severe, Starting on Thu05/30/24 at 0612, Until Thu05/31/24 at 1426, For 2 days 0631 (Given - Provider: Angel Donovan RN)1028 (Given - Provider: Jacklyn Garcia RN)1439 (Given - Provider: Jacklyn Garcia RN)1845 (Given - Provider: Jacklyn Garcia RN)2355 (Given - Provider: Yanna Galan RN - Comment: amina tolentino LPN) 0444 (Given - Provider: Dorene Harman RN)0853 (Given - Provider: Keiko Hobson, BEAN) keTORolac (Toradol) 15 MG/ML inj 15 mg 15 mg, IV Push, Q6H PRN Pain, Moderate, Starting on Thu05/30/24 at 1857, Until Thu05/31/24 at 1426, For 2 doses 2110 (Given - Provider: Jh Goncalves, BEAN) keTORolac (Toradol) 30 MG/ML inj 15 mg (COMPLETED) 15 mg, IV Push, Q6H PRN Pain, Moderate, Starting on Thu05/30/24 at 0300, Until Thu05/30/24 at 1214, For 2 doses 0411 (Given - Provider: Angel Donovan RN)1214 (Given - Provider: Jacklyn Garcia, BEAN) LORazepam (Ativan) tab 1 mg 1 mg, Oral, Q12H PRN Anxiety, Starting on 05/29/24 at 2321, Until Thu05/31/24 at 1426 0056 (Given - Provider: Angel Donovan RN)0902 (Given - Provider: Jacklyn Garcia, BEAN)2110 (Given - Provider: Jh Goncalves, BEAN) 0853 (Given - Provider: Keiko Hobson RN) sodium chloride 0.9 % flush/inj 3 mL 3 mL, IV Push, PRN Other, Line Patency, Starting on 05/29/24 at 2314, Until Thu05/31/24 at 1426, Do not flush if lock, PICC, or central line not in place, IV infusing or unable to flush traZODone (Desyrel) tab 50 mg 50 mg, Oral, QHS PRN Insomnia, Starting on 05/29/24 at 2313, Until Thu05/31/24 at 1426 2110 (Given - Provider: Jh Goncalves RN) documented in this encounter Advance Directives * [...] Advance Directives occurred with: Patient Care Teams Play Therapist Relationship Specialty Start Date End Date Angelic Pereira DO [address] [place] [address] PCP - General Family Medicine 01/20/18 documented as of this encounter
--- OUTSIDE RECORDS SUMMARY | 2024-06-29 06:51 | External Medical Summary ---
Author Name Unknown Address Unknown Organization K01:LABORATORY [facility] - [address] [place] [address] Laboratory Report Ordering Provider Test Date Status PIYUSH BOWERS 06/13/2024 12:18:32 Final Normal: <30 mg/g creatinine< br/>High: 30-300 mg/g creatinine
Very High: >300 mg/g creatinine
Nephrotic: >2200 mg/g creatinine Observation Date Value Abnormality Reference (Units ) Status Albumin, Urine 06/13/2024 12:18:32 2.00 (mg/dL) Final Creatinine, Urine 06/13/2024 12:18:32 77 (mg/dL) Final Albumin/Creatinine [Mass Ratio] in Urine 06/13/2024 12:18:32 26 <30 (mg/g Creat) Final Performing Location LABORATORY [facility] - [address] [place] [address]
--- OUTSIDE RECORDS SUMMARY | 2024-06-29 06:51 | External Medical Summary ---
Author Name Unknown Address Unknown Organization K1F:[facility]ORY [facility] - [address] [facility] [address] [place] [address] Laboratory Report Ordering Provider Test Date Status JIM VITALE 05/30/2024 00:52:02 Final Observation Date Value Abnormality Reference (Units ) Status Color of Urine by Auto 05/30/2024 00:52:02 Yellow Light Yellow, Yellow, Dark Yellow Final Clarity, Urine 05/30/2024 00:52:02 Clear Clear Final Glucose [Mass/volume] in Urine by Automated test strip 05/30/2024 00:52:02 Negative Negative (mg/dL) Final Bilirubin.total [Presence] in Urine by Automated test strip 05/30/2024 00:52:02 Negative Negative Final Ketones [Mass/volume] in Urine by Automated test strip 05/30/2024 00:52:02 Negative Negative (mg/dL) Final Specific gravity, Urine 05/30/2024 00:52:02 >1.060 Above high normal 1.003-1.030 Final Hemoglobin [Presence] in Urine by Automated test strip 05/30/2024 00:52:02 Negative Negative Final pH, Urine 05/30/2024 00:52:02 6.0 5.0-7.5 (Units) Final Protein [Mass/volume] in Urine by Automated test strip 05/30/2024 00:52:02 Negative Negative (mg/dL) Final Urobilinogen [Mass/volume] in Urine by Automated test strip 05/30/2024 00:52:02 1.0 0.2, 1.0 (mg/dL) Final Nitrite [Presence] in Urine by Automated test strip 05/30/2024 00:52:02 Negative Negative Final Leukocyte esterase [Presence] in Urine by Automated test strip 05/30/2024 00:52:02 Negative Negative Final RBC, Urine 05/30/2024 00:52:02 0-2 0-2 (/HPF) Final WBC, Urine 05/30/2024 00:52:02 0-2 0-2 (/HPF) Final Bacteria [#/area] in Urine sediment by Microscopy high power field 05/30/2024 00:52:02 51-100 Abnormal 0-25 (/HPF) Final Epithelial cells.squamous [#/area] in Urine sediment by Microscopy high power field 05/30/2024 00:52:02 Many Abnormal None (/HPF) Final CULTURE, URINE - [facility] 05/30/2024 00:52:02 Final Quantitative urine culture t o be performed Performing Location LABORATORY [facility] - [address] [place] [address] [place] [address]
--- OUTSIDE RECORDS SUMMARY | 2024-06-29 06:51 | External Medical Summary ---
Author Name Unknown Address Unknown Organization K1F:LABORATORY [facility] - [facility] [place] [address] Laboratory Report Ordering Provider Test Date Status SANDEE WHITEADE 05/30/2024 00:52:02 Final Cutoff Concentrations:
Drug Level
Amphetamines 500 ng/mL
Benzodiazepines 100 ng/mL
Cannabinoids 50 ng/mL
Cocaine Metabolite 150 ng/mL
Fentanyl 1 ng/mL
Hydrocodone / Hydromorphone 300 ng/mL
Methadone Metabolite 100 ng/mL
Morphine / Codeine 300 ng/mL
Oxycodone / Oxymorphone 100 ng/mL

Screening results are presumptive and can only be used for medical purposes. Confirmatory testing is available upon request. Observation Date Value Abnormality Reference (Units ) Status Amphetamines, Urine screen 05/30/2024 00:52:02 Positive Abnormal Negative Final Benzodiazepines, Urine screen 05/30/2024 00:52:02 Positive Abnormal Negative Final Cannabinoids, Urine screen 05/30/2024 00:52:02 Positive Abnormal Negative Final Cocaine Metabolite, Urine screen 05/30/2024 00:52:02 Negative Negative Final fentaNYL [Presence] in Urine by Screen method 05/30/2024 00:52:02 Negative Negative Final HYDROcodone [Presence] in Urine by Screen method 05/30/2024 00:52:02 Negative Negative Final 6-Mivfcjrpvs-8,5-Dimeth yl-3,3-Diphenylpyrrolid ine (EDDP) [Presence] in Urine 05/30/2024 00:52:02 Negative Negative Final Opiates, Urine screen 05/30/2024 00:52:02 Negative Negative Final oxyCODONE [Presence] in Urine by Screen method 05/30/2024 00:52:02 Negative Negative Final Performing Location LAB[facility]ATORY [facility] - [address] [place] [address]
--- OUTSIDE RECORDS SUMMARY | 2024-06-29 06:51 | External Medical Summary | Summary of Care ---
Author Name Unknown Organization [facility] Address [address] [place] [address] Phone [phone] Care Team Providers Care Laboratory Technologist Name Role Phone RyanAngelic weldon [place] DELGADILLO Primary Care Provider + [phone] Reason for Visit * Reason Comments Outpatient Testing Encounter Details Date Type Department Care Team (Late st Contact Info) Description 06/13/2024 11:50 AM EDT Laboratory Laboratory, [facility] [address] [place] [address] [facility] [address] [place] [address] Hypertension Allergies Active Allergy Reactions [...] 08/17/2016 Bipolar 1 disorder Overview: Dr [facility] [...] AM EST Office Visit [facility] [address] [place] [address] Polly Carias PA-C [address] [place] [address] 12/23/2024 10:10 AM EDT [facility] [address] [facility] [phone] Angelic Pereira [facility] [address] [facility] [address] Pending Results Name Type Priority Associated Diagnoses Date /Time BASIC METABOLIC PANEL Lab Routine Hypertension 06/13/2024 11:53 AM EDT HEPATIC FUNCTION PANEL Lab Routine Hypertension 06/13/2024 11:53 AM EDT ALBUMIN / CREATININE RATIO, URINE Lab Routine Hypertension 06/13/2024 12:18 PM EDT Scheduled Procedures Name Priority Associated Diagnoses [...] Advance Directives occurred with: Patient Care Teams Laboratory Technologist Relationship Specialty Start Date End Date Angelic Pereira DO [address] [facility] [place] [address] PCP - General Family Medicine 01/20/18 documented as of this encounter
--- OUTSIDE RECORDS SUMMARY | 2024-06-29 06:51 | External Medical Summary ---
Author Name Unknown Address Unknown Organization K01:LABORATORY [facility] - [address] [place] [address] Laboratory Report Ordering Provider Test Date Status PIYUSH BOWERS 06/13/2024 11:53:02 Final Observation Date Value Abnormality Reference (Units ) Status Albumin 06/13/2024 11:53:02 4.8 3.8-5.0 (g/dL) Final AST (Aspartate aminotransferase) 06/13/2024 11:53:02 18 10-35 (U/L) Final Alk Phos 06/13/2024 11:53:02 182 Above high normal 35-130 (U/L) Final ALT (Alanine aminotransferase) 06/13/2024 11:53:02 20 10-35 (U/L) Final Bilirubin, Total 06/13/2024 11:53:02 0.7 <=1.2 (mg/dL) Final Bilirubin, Direct 06/13/2024 11:53:02 0.2 0.0-0.3 (mg/dL) Final Protein 06/13/2024 11:53:02 7.9 6.0-8.3 (g/dL) Final Performing Location LABORATORY [facility] - [address] [place] [address]
--- OUTSIDE RECORDS SUMMARY | 2024-06-29 06:51 | External Medical Summary ---
Author Name Unknown Address Unknown Organization K01:[facility] [place] [address] [facility] [address] [place] [address] Laboratory Report Ordering Provider Test Date Status PIYUSH BOWERS 06/13/2024 11:53:02 Final Observation Date Value Abnormality Reference (Units ) Status BUN 06/13/2024 11:53:02 10 6-20 (mg/dL) Final Creatinine 06/13/2024 11:53:02 0.7 0.5-1.0 (mg/dL) Final Glomerular filtration rate/1.73 sq M.predicted [Volume Rate/Area] in Serum, Plasma or Blood by Creatinine-based formula (CKD-EPI) 06/13/2024 11:53:02 >90 >=60 (mL/min) Final eGFR is calculated based on the CKD-EPI 2020 equation. Sodium 06/13/2024 11:53:02 135 135-146 (m mol/L) Final Potassium 06/13/2024 11:53:02 4.1 3.5-5.1 (m mol/L) Final Cl 06/13/2024 11:53:02 100 98-107 (mm ol/L) Final CO2 06/13/2024 11:53:02 21 Below low normal 22- 32 (mmol/L) Final Anion gap 06/13/2024 11:53:02 14 7-15 (mmol /L) Final Glucose 06/13/2024 11:53:02 114 70-120 (mg /dL) Final Calcium 06/13/2024 11:53:02 10.2 8.4-10.2 ( mg/dL) Final Performing Location [facility] [place] [address]
--- OUTSIDE RECORDS SUMMARY | 2024-06-29 06:52 | External Medical Summary ---
Author Name Unknown Address Unknown Organization K1F:LABORATORY [facility] - [address] [place] [place] [address] Laboratory Report Ordering Provider Test Date Status KIMBERLY MARTIN 05/29/2024 20:28:44 Final Observation Date Value Abnormality Reference (Units ) Status Troponin T 05/29/2024 20:28:44 <6 <=14 (ng/ L) Final Performing Location LABORATORY [facility] - [address] [place] [address]
--- OUTSIDE RECORDS SUMMARY | 2024-06-29 06:52 | External Medical Summary ---
Author Name Unknown Address Unknown Organization K1F:[facility] - [address] [place] [address] Laboratory Report Ordering Provider Test Date Status JIM VITALE 05/29/2024 20:28:27 Final Observation Date Value Abnormality Reference (Units ) Status BUN 05/29/2024 20:28:27 6 6-20 (mg/dL) Final Creatinine 05/29/2024 20:28:27 0.8 0.5-1.0 (mg/dL) Final Glomerular filtration rate/1.73 sq M.predicted [Volume Rate/Area] in Serum, Plasma or Blood by Creatinine-based formula (CKD-EPI) 05/29/2024 20:28:27 >90 >=60 (mL/min) Final eGFR is calculated based on the CKD-EPI 2020 equation. Sodium 05/29/2024 20:28:27 138 135-146 (m mol/L) Final Potassium 05/29/2024 20:28:27 3.8 3.5-5.1 (m mol/L) Final Cl 05/29/2024 20:28:27 102 98-107 (mm ol/L) Final CO2 05/29/2024 20:28:27 18 Below low normal 22- 32 (mmol/L) Final Anion gap 05/29/2024 20:28:27 18 Above high normal 7- 15 (mmol/L) Final Glucose 05/29/2024 20:28:27 94 70-120 (mg /dL) Final Albumin 05/29/2024 20:28:27 4.9 3.8-5.0 (g /dL) Final AST (Aspartate aminotransferase) 05/29/2024 20:28:27 48 Above high normal 10-35 (U/L) Final Alk Phos 05/29/2024 20:28:27 248 Above high normal 35 -130 (U/L) Final Bilirubin, Total 05/29/2024 20:28:27 0.7 <=1 .2 (mg/dL) Final Calcium 05/29/2024 20:28:27 10.1 8.4-10.2 ( mg/dL) Final Protein 05/29/2024 20:28:27 9.1 Above high normal 6. 0-8.3 (g/dL) Final ALT (Alanine aminotransferase) 05/29/2024 20:28:27 32 10-35 (U/L) Ambrosio segura Performing Location LABORATORY [facility] - [address] [place] [address] [place] [address]
--- OUTSIDE RECORDS SUMMARY | 2024-06-29 06:52 | External Medical Summary ---
Author Name Unknown Address Unknown Organization K1F:LABORATORY [facility] - [address] [place] [address] Laboratory Report Ordering Provider Test Date Status HIGINIO WHITE 05/29/2024 20:28:27 Final Observation Date Value Abnormality Reference (Units ) Status T4, Free 05/29/2024 20:28:27 1.2 0.9-1.7 (n g/dL) Final Performing Location LABORATORY [facility] - [address] [place] [address]
--- OUTSIDE RECORDS SUMMARY | 2024-06-29 06:52 | External Medical Summary ---
Author Name Unknown Address Unknown Organization R4LH:[facility] [address] [place] [address] Laboratory Report Ordering Provider Test Date Status VICTOR HUGO PONCE 05/24/2024 05:13:00 Final Observation Date Value Abnormality Reference (Units ) Status Neutrophils 05/24/2024 06:35 48 45-80 (%) Final Lymphocytes 05/24/2024 06:35 35 21-51 (%) Final Atypical Lymphocytes 05/24/2024 06:35 2.0 0-6 (%) Final Monocytes 05/24/2024 06:35 7 2-11 (%) Final Eosinophils 05/24/2024 06:35 5 Above high normal 0-3 (%) Final Metamyelocytes 05/24/2024 06:35 2.0 Above high normal 0-1 (%) Final Myelocytes 05/24/2024 06:35 1.0 Above high normal 0 (%) Final Absolute Neutrophils 05/24/2024 06:35 7.39 Above high normal 1.6-6.1 (X10E+09/L) Final Absolute Lymphocytes 05/24/2024 06:35 5.70 Above high normal 1.2-3.7 (X10E+09/L) Final Absolute Monocytes 05/24/2024 06:35 1.08 Above high normal 0.2-0.9 (X10E+09/L) Final Absolute Eosinophils 05/24/2024 06:35 0.77 Above high normal 0.0-0.4 (X10E+09/L) Final Performing Location [facility] [address] [place] [address]
--- OUTSIDE RECORDS SUMMARY | 2024-06-29 06:52 | External Medical Summary ---
Author Name Unknown Address Unknown Organization R4H:[facility] [address] [place] [address] Laboratory Report Ordering Provider Test Date Status VICTOR HUGO PONCE 05/24/2024 05:13:00 Final Observation Date Value Abnormality Reference (Units ) Status Glucose 05/24/2024 06:06 108 Above high normal 70-99 (mg/dL) Final BUN 05/24/2024 06:06 7 7-18 (mg/dL) Final Creatinine 05/24/2024 06:06 0.74 0.60-1.30 (m g/dL) Final eGFR 05/24/2024 06:06 107 >59 (mL/min/1 .73m2) Final eGFR = 142 X [min(Scr/k,1)]* *a [max(Scr/k,1)-1.200x0.9938age X 1.012 [if female] Where Scr is serum creatinine; k is 0.7 for females and 0.9 males; a is -0.241 for females and -0.302 for males; min indicates the minimum of Scr/k or 1, max indicates the maximum of Scr/k or 1 Sodium 05/24/2024 06:06 138 136-145 (mmol /L) Final Potassium 05/24/2024 06:06 3.9 3.6-5.0 (mmol /L) Final Chloride 05/24/2024 06:06 107 101-111 (mmol /L) Final CO2 05/24/2024 06:06 21 21-31 (mmol/L ) Final Anion Gap 05/24/2024 06:06 14 6-16 (mmol/L) Final Calcium 05/24/2024 06:06 9.0 8.4-10.5 (mg/ dL) Final Total Protein 05/24/2024 06:06 8.3 6.0-8.3 ( g/dL) Final Albumin 05/24/2024 06:06 4.1 3.2-5.5 (g/dL ) Final Bilirubin, Total 05/24/2024 06:06 0.3 0.2-1. 0 (mg/dL) Final AST 05/24/2024 06:06 34 10-42 (U/L) F inal ALT 05/24/2024 06:06 27 10-60 (U/L) F inal Alkaline Phosphatase 05/24/2024 06:06 220 Above high n ormal 42-121 (U/L) Final Performing Location [facility] [address] [place] [address]
--- OUTSIDE RECORDS SUMMARY | 2024-06-29 06:52 | External Medical Summary ---
Author Name Unknown Address Unknown Organization : Laboratory Report Ordering Provider Test Date Status NO,UNKNOWN 05/29/2024 20:20:17 Final Observation Date Value Abnormality Reference (Units ) Status Glucose Point of Care 05/29/2024 20:20:17 107 70-120 (mg/dL) Final Performing Location
--- OUTSIDE RECORDS SUMMARY | 2024-06-29 06:52 | External Medical Summary ---
Author Name Unknown Address Unknown Organization R4LH:[facility] [address] [address] Laboratory Report Ordering Provider Test Date Status VICTOR HUGO PONCE 05/24/2024 05:54:00 Final Observation Date Value Abnormality Reference (Units ) Status Buprenorphine, Urine 05/24/2024 12:00 Negative NE GAT Final Detection Limit = 5 ng/mL Fentanyl, Urine 05/24/2024 12:00 Negative NEGAT Final (Cutoff limit: 1 ng/mL) Note: 05/24/2024 12:00 Fin al These tests use antibodies t o screen for the presence of drugs of abuse. The tests meet standards for detection when the indicated drugs are present in levels above a cutoff used for clinical purposes only. The tests might react with compounds other than the drugs indicated, and the results are presumptive and unconfirmed. Clinical correlation is necessary for interpretation. Unconfirmed positive screening results must not be used for non-medical purposes. Amphetamine/Methamph, Urine 05/24/2024 06:23 Positive Abnor mal NEGAT Final Barbiturates, Urine 05/24/2024 06:23 Negative Normal NEG AT Final Benzodiazepine, Urine 05/24/2024 06:23 Positive Abnormal N EGAT Final Cocaine, Urine 05/24/2024 06:23 Negative Normal NEGAT Final Methadone, Urine 05/24/2024 06:23 Negative Normal NEGAT Final Opiates, Urine 05/24/2024 06:23 Negative Normal NEGAT Final Oxycodone Qual Urine 05/24/2024 06:23 Negative Normal NE GAT Final Phencyclidine, Urine 05/24/2024 06:23 Negative Normal NE GAT Final Cannabinoids, Urine 05/24/2024 06:23 Positive Abnormal NEG AT Final Tricyclics, Urine 05/24/2024 06:23 Negative Normal NEGAT Final MDMA, Urine 05/24/2024 06:23 Negative Normal NEGAT F inal Methamphetamines, Urine 05/24/2024 06:23 Negative Normal NEGAT Final Performing Location [facility] [address] [address]
--- OUTSIDE RECORDS SUMMARY | 2024-06-29 06:52 | External Medical Summary ---
Author Name Unknown Address Unknown Organization R4LH:[facility] [address] [address] Laboratory Report Ordering Provider Test Date Status VICTOR HUGO PONCE 05/24/2024 05:13:00 Final Observation Date Value Abnormality Reference (Units ) Status Lipase 05/24/2024 06:06 31 22-51 (U/L) F inal Performing Location [facility] [address] [address]
--- OUTSIDE RECORDS SUMMARY | 2024-06-29 06:52 | External Medical Summary ---
Author Name Unknown Address Unknown Organization K01:[facility] [place] [address] [place] [id number] Laboratory Report Ordering Provider Test Date Status JIM VITALE 05/30/2024 00:52:02 Final Observation Date Value Abnormality Reference (Units) Status Bacteria identified in Specimen by Culture 05/30/2024 00:52:02 No significant growth Final Test: Culture, Urine, Quanti tative
Specimen Source: Urine, Clean Catch
Specimen Type: Urine
Specimen Date: 05/30/202451
Result Date: 05/31/2024 0822
Result Status: Final result
Resulting Lab: [facility]
[address]
[place] [address]

CULTURE

No significant growth

null Performing Location [facility] [place] [address] [facility] [address]
--- OUTSIDE RECORDS SUMMARY | 2024-06-29 06:52 | External Medical Summary ---
Author Name Unknown Address Unknown Organization K1F:[facility] - [address] [address] Laboratory Report Ordering Provider Test Date Status HIGINIO WHITE 05/29/2024 20:28:27 Final Observation Date Value Abnormality Reference (Units ) Status TSH 05/29/2024 20:28:27 6.12 Above high normal 0. 27-4.20 (uIU/mL) Final Performing Location [facility] - [address] [address]
--- OUTSIDE RECORDS SUMMARY | 2024-06-29 06:52 | External Medical Summary | Summary of Care ---
Author Name Unknown Organization [facility] Address [address] [place] [address] Phone [phone] Care Team Providers Care Electronic Transaction Implementer Name Role Phone Angelic Pereira DO Primary Care Provider [phone] Encounter Details Date Type Department Care Team (Late st Contact Info) Description 05/26/2024 Population Health External Data Unspecified Department Allergies [...] as of this encounter (statuses as of 05/26/2024) Medications Medication Sig Dispensed Refills Start Date End Date Status Blood Pressure Monitoring (ADULT BLOOD PRESSURE CUFF LG) KITIndications:HTN, goal below 130/80 Use daily for blood pressure checks 1 Kit 01/20/2018 Active ibuprofen (MOTRIN) 800 MG TabletIndications:T [...] additional tab if needed 3 Tablet 09/15/2023 Active Cariprazine HCl 1.5 MG Oral [...] call your doctor. 140 Tablet 12/09/2023 Active traMADol HCl 50 MG Oral Tablet (Ultram)Indications :Pelvic pain in female Take 1 Tablet by mouth every 6 hours as needed for Pain, Severe. 24 Tablet 12/14/2023 Active Additional Information Patient not taking.Reported on 01/06/2024 traMADol HCl 50 MG Oral Tablet (Ultram) Take 1 Tablet by mouth every 6 hours as needed for Pain, Severe. 24 Tablet 12/23/2023 Active Additional Information Patient not taking.Reported on 01/06/2024 oxyCODONE-Acetamino phen 5-325 MG Oral Tablet (Percocet) Take 1 Tablet by mouth every 4 hours as needed for Pain, Severe. 28 Tablet 12/27/2023 Active Additional Information Patient not taking.Reported on 01/06/2024 traMADol HCl 50 MG Oral Tablet (Ultram) Take 1 Tablet by mouth every 6 hours as needed for Pain, Severe. 24 Tablet 1 01/06/2024 Active documented as of this encounter (statuses as of 05/26/2024) Active Problems Problem Noted Date Diagnosed Date Food insecurity 02/22/2024 Overview: Per [employer] [...] as of this encounter (statuses as of 05/26/2024) Resolved Problems Problem Noted Date Diagnosed Date [...] as of this encounter (statuses as of 05/26/2024) Immunizations Name Administration Dates Next Due COVID-19 [...] as of this encounter Plan of Treatment Scheduled Procedures Name Priority Associated Diagnoses Date/Ti [...] Influenza Vaccine (FLU shot) (#1) 2024 GFR 12/03/2024 12/04/2023, 06/18, 04/29/2023, Additional history exists Diabetes Screening 12/03/2026 12/04/2023, 1 09/13/2022, 04/29/2023, Additional history exists DTap/Tdap Vaccines (2 - [...] on File) Date Activated Date Inactivated Comments 05/08/2023 9:10 [...] Advance Directives occurred with: Patient Care Teams Electronic Transaction Implementer Relationship Specialty Start Date End Date Angelic Pereira DO [address] [facility] [place] [address] PCP - General Family Medicine 01/20/18 documented as of this encounter
--- OUTSIDE RECORDS SUMMARY | 2024-06-29 06:52 | External Medical Summary ---
Author Name Unknown Address Unknown Organization K1F:[facility] - [address] [place] [address] [address] [address] Laboratory Report Ordering Provider Test Date Status JIM VITALE 05/29/2024 20:28:27 Final Observation Date Value Abnormality Reference (Units ) Status WBC, Total 05/29/2024 20:28:27 15.57 Above high normal 4.00-10.80 (K/uL) Final RBC 05/29/2024 20:28:27 5.14 3.85-5.15 (M/uL) Final Hemoglobin 05/29/2024 20:28:27 16.0 Above high normal 12.0-15.3 (g/dL) Final HCT 05/29/2024 20:28:27 46.5 Above high normal 36.0-45.2 (%) Final MCV 05/29/2024 20:28:27 90.5 81.5-97.5 (fL) Final MCH 05/29/2024 20:28:27 31.1 27.0-34.0 (pg) Final MCHC 05/29/2024 20:28:27 34.4 32.0-36.0 (g/dL) Final RDW 05/29/2024 20:28:27 13.9 11.5-15.5 (%) Final Platelets 05/29/2024 20:28:27 312 140-400 (K/uL) Final MPV 05/29/2024 20:28:27 9.4 6.6-11.1 (fL) Final Nucleated erythrocytes/100 leukocytes [Ratio] in Blood by Automated count 05/29/2024 20:28:27 0 <=0 (/100 WBCs) Final Performing Location [facility] - [address] [address]
--- OUTSIDE RECORDS SUMMARY | 2024-06-29 06:52 | External Medical Summary ---
Author Name Unknown Address Unknown Organization K1F:[facility] - [address] [address] Laboratory Report Ordering Provider Test Date Status HIGINIO WHITE 05/29/2024 22:41:55 Final Observation Date Value Abnormality Reference (Units ) Status Ethanol 05/29/2024 22:41:55 50 Above high normal Ne gative (mg/dL) Final Performing Location [facility] - [address] [address]
--- OUTSIDE RECORDS SUMMARY | 2024-06-29 06:52 | External Medical Summary ---
Author Name Unknown Address Unknown Organization R4LH:[facility] [address] [address] Laboratory Report Ordering Provider Test Date Status VICTOR HUGO PONCE 05/24/2024 05:55:00 Final Observation Date Value Abnormality Reference (Units ) Status UA Culture Screen 05/24/2024 06:29 Negative screen. Culture not indicated. Final Urine Clarity 05/24/2024 06:29 Clear CLER Final Urine Color 05/24/2024 06:29 Yellow YELL Final Specific [place], Urine 05/24/2024 06:29 1.010 1.000-1.025 Final Urine pH 05/24/2024 06:29 7.5 5.0-8.0 Final Urine Leukocyte Esterase 05/24/2024 06:29 Negative NEGAT Final Urine Nitrites 05/24/2024 06:29 Negative NEGAT Final Protein, Urine 05/24/2024 06:29 Trace Abnormal NEGAT (mg/dL) Final Glucose, Urine 05/24/2024 06:29 Negative NEGAT (mg/dL) Final Urine Ketones 05/24/2024 06:29 Negative NEGAT Final Urine Urobilinogen 05/24/2024 06:29 1.0 0.0-1.0 (mg/dL) Final Urine Bilirubin 05/24/2024 06:29 Negative NEGAT Final Blood, Urine 05/24/2024 06:29 Negative NEGAT Final Urine Source 05/24/2024 05:55 Clean Catch Urine Final Performing Location [facility] [address] [address]
--- OUTSIDE RECORDS SUMMARY | 2024-06-29 06:52 | External Medical Summary ---
Author Name Unknown Address Unknown Organization K1F:[facility] - [address] [address] Laboratory Report Ordering Provider Test Date Status JIM VITALE 05/29/2024 20:28:27 Final Observation Date Value Abnormality Reference (Units ) Status SYNC LEUKOCYTES IN BLOOD BY AUTOMATED COUNT 05/29/2024 20:28:27 15.57 Above high normal 4.00-10.80 (K/uL) Final Neutrophils/100 leukocytes in Blood by Manual count 05/29/2024 20:28:27 54.0 40.0-75.0 (%) Final Lymphocytes/100 leukocytes in Blood by Manual count 05/29/2024 20:28:27 41.0 18.0-42.0 (%) Final Monocytes/100 leukocytes in Blood by Manual count 05/29/2024 20:28:27 4.0 1.0-11.0 (%) Final Eosinophils/100 leukocytes in Blood by Manual count 05/29/2024 20:28:27 1.0 0.0-6.0 (%) Final Neutrophils [#/volume] in Blood by Manual count 05/29/2024 20:28:27 8.41 Above high normal 1.80-7.70 (K/uL) Final Lymphocytes [#/volume] in Blood by Manual count 05/29/2024 20:28:27 6.38 Above high normal 1.00-4.80 (K/uL) Final Monocytes [#/volume] in Blood by Manual count 05/29/2024 20:28:27 0.62 0.00-1.10 (K/uL) Final Eosinophils [#/volume] in Blood by Manual count 05/29/2024 20:28:27 0.16 0.00-0.70 (K/uL) Final Performing Location [facility] - [address] [place] [address]
--- OUTSIDE RECORDS SUMMARY | 2024-06-29 06:52 | External Medical Summary ---
Author Name Unknown Address Unknown Organization R4:[facility] [address] [address] Laboratory Report Ordering Provider Test Date Status VICTOR HUGO PONCE 05/24/2024 05:13:00 Final Observation Date Value Abnormality Reference (Units) Status WBC 05/24/2024 05:49 15.4 Above high normal 4.0-10.0 (X10E+09/L) Final RBC 05/24/2024 05:49 4.64 3.9-5.2 (X10E+12/L) Final Hemoglobin 05/24/2024 05:49 14.7 11.2-15.7 (g/dL) Final Hematocrit 05/24/2024 05:49 42.3 34-45 (%) Final MCV 05/24/2024 05:49 91.2 79-98 (fL) Final MCH 05/24/2024 05:49 31.6 26.0-32.0 (pg) Final MCHC 05/24/2024 05:49 34.6 32-36 (g/dL) Final Platelets 05/24/2024 05:49 223 150-370 (X10E+09/L) Final RDW 05/24/2024 05:49 14.6 (%) Final Neutrophils 05/24/2024 05:49 Manual Diff Performed 34.0-71.1 (%) Final Lymphocytes 05/24/2024 05:49 Manual Diff Performed 19.3-51.7 (%) Final Monocytes 05/24/2024 05:49 Manual Diff Performed 4.7-12.5 (%) Final Eosinophils 05/24/2024 05:49 Manual Diff Performed 0.7-5.8 (%) Final Basophils 05/24/2024 05:49 Manual Diff Performed 0.1-1.2 (%) Final Absolute Neutrophils 05/24/2024 05:49 Manual Diff Performed 1.6-6.1 (X10E+09/L) Final Absolute Lymphocytes 05/24/2024 05:49 Manual Diff Performed 1.2-3.7 (X10E+09/L) Final Absolute Monocytes 05/24/2024 05:49 Manual Diff Performed 0.2-0.9 (X10E+09/L) Final Absolute Eosinophils 05/24/2024 05:49 Manual Diff Performed 0.0-0.4 (X10E+09/L) Final Absolute Basophils 05/24/2024 05:49 Manual Diff Performed 0.0-0.1 (X10E+09/L) Final Performing Location [facility] [address] [place] [address]
--- OUTSIDE RECORDS SUMMARY | 2024-06-29 06:52 | External Medical Summary ---
Author Name Unknown Address Unknown Organization R4LH:[facility] [address] [address] Laboratory Report Ordering Provider Test Date Status KRISVICTOR HUGO 05/24/2024 05:55:00 Final Observation Date Value Abnormality Reference (Units ) Status Urine WBC 05/24/2024 06:29 0-5 ZTF (/hpf) Fi nal Urine RBC 05/24/2024 06:29 0-4 ZTFR (/hpf) F inal Urine Bacteria 05/24/2024 06:29 Rare Abnormal NONE (/h pf) Final Epithelial Cells 05/24/2024 06:29 >36 Abnormal ZTF (/ lpf) Final Performing Location [facility] [address] [address]
--- OUTSIDE RECORDS SUMMARY | 2024-06-29 06:52 | External Medical Summary ---
Author Name Unknown Address Unknown Organization K1F:[facility]ATORY [facility] - [address] [address] Laboratory Report Ordering Provider Test Date Status JIM VITALE 05/29/2024 20:28:27 Final Warfarin Therapy
INR: 2 .0-3.0 conventional anticoagulation
INR: 2.5- 3.5 high intensity anticoagulation Observation Date Value Abnormality Reference (Units ) Status PT 05/29/2024 20:28:27 14.4 11.6-15.2 (seconds) Final INR 05/29/2024 20:28:27 1.1 0.8-1.2 Final Performing Location [facility]ORY [facility] - [address] [address]
[2024-06-29 06:57] LABS: BUN Creatinine Ratio 15.1 (10-20); Creatinine Clr Calc Pharmacy 118.7 ml/min
[2024-06-29] MEDS ORDERED: KETOROLAC TROMETHAMINE 15 MG/ML VIAL IV PRN (06:59)
[2024-06-29 07:13] VITALS: TEMP 98.1
[2024-06-29] MEDS: amLODIPine BESYLATE 5 MG TAB PO SCH (08:25)
[2024-06-29] MEDS: MULTIVITAMIN TAB PO SCH ×2 (08:26→09:15)
[2024-06-29] MEDS: CARIPRAZINE HCL 3 MG CAP PO SCH (08:26)
[2024-06-29] MEDS: FOLIC ACID 1 MG TAB PO SCH (08:27)
[2024-06-29] MEDS: THIAMINE HCL 100 MG TAB PO SCH (08:27)
[2024-06-29] MEDS: KETOROLAC TROMETHAMINE 15 MG/ML VIAL IV ONE (09:14)
[2024-06-29] MEDS: LORazepam 2 MG/1 ML VIAL IV STA (09:14)
[2024-06-29] MEDS: LORazepam 2 MG/1 ML VIAL IV PRN (09:14)
[2024-06-29] MEDS: LABETALOL HCL IV 5 MG/ML 20ML IV STA (09:39)
[2024-06-29] MEDS: HYDROmorphone INJ 1 MG/ML SYRINGE IV STA (10:47)
[2024-06-29 11:07] VITALS: O2SAT 95
[2024-06-29] MEDS ORDERED: Nursing to Pharmacy Communication SCH (12:30)
[2024-06-29] MEDS: hydrALAZINE 10 MG TAB PO STA (13:16)
[2024-06-29] MEDS: NICOTINE 21 MG/24 HR TDSY TD SCH (13:17)
[2024-06-29] MEDS: METOPROLOL TARTRATE 1 MG/ML VIAL IV PRN (14:15)
[2024-06-29 14:33] VITALS: BP 185/137; PULSE 87; RESP 19
--- NOTE | 2024-06-29 15:41 | Discharge Summary ---
Discharge Summary Date of Service June 29, 2024 Principal Dx & Hospital Course #1 = Principal Diagnosis (1) Seizures: Plan This is a 38-year-old female who has a significant past medical history of HTN, bipolar disorder, history of migraines, tobacco abuse, JEAN, PTSD, depression, alcohol abuse, history of opioid dependence, seizure disorder and ADHD who presents to ED secondary to multiple seizures. Recent confinement early May for Benzodiazepine withdrawal, alcohol withdrawal and panic attack. She was later confined at [facility] 05/29 for complex migraine. Also seen in ED on 05/24 and at that time there was concern regarding alcohol withdrawal Seizure like activity - pt reporting absence seizures lasting 20-30 secs each, multiple episodes today Pt has been accepted at [facility] for continuos EEG monitoring but a bed is currently not available She will be admitted for medical management in meantime Possible substance withdrawal UDS + marijuana, cocaine, benzo, amphetamine last alcoholic drink was a four javed around 2p.m. - she denies any regular alcohol use but this AWSS protocol, monitor closely for withdrawal thiamine/folic acid HTN: continue amlodipine Bipolar disorder/PTSD/JEAN/Depression: continue home meds Notes For Next Care Provider Medication Changes From Visit Pt admitted for ? intractable seizures. Neuro was consulted. Recommendation was for transfer to [facility] for continuous EEG monitoring. CIWA protocol was ordered. She was given hydralazine and IV metoprolol for BP control. She was transferred to [facility] in stable condition. Admission HPI Per Admitting Provider This is a 38-year-old female who has a significant past medical history of HTN, bipolar disorder, history of migraines, tobacco abuse, JEAN, PTSD, depression, alcohol abuse, history of opioid dependence, seizure disorder and ADHD who presents to ED secondary to multiple seizures. Per ED report patient arrived via EMS. Patient had multiple witnessed events during transport. Patient has been experiencing absence seizure's in which she had been staring off for 20 to 30 seconds at a time. She did receive 1 dose of Ativan prior to arrival. Patient's case was discussed with [facility] neurologist who recommended transfer to [facility] for continuous EEG monitoring. [facility]fortunate [facility]; therefore, she will be admitted to our hospital for close monitoring until transfer can be obtained. Pt states her last seizure prior to today was 2-3 months ago. She typically would have seizure like activity for 20-30 secs where she would stare, but denies convulsive seizures. Today the seizure caused her to fall and hit the back of her head. She continues to have an occipital headache. She also complains of double vision. She denies recent illness, f/c/s, chest pain, sob, vomiting, diarrhea or abd pain. She does feel nauseated and complains of dry mouth. She has not missed any of her medications. She has been under a lot of stress lately caring for her paraplegic brother. She reports smoking daily marijuana at . She continues to smoke 1ppd. She drank 1 four javed before the ED. She also reports doing cocaine 1 week ago. She reports not feeling anything from the cocaine and that it was her first time doing it. Of significance she was confined in May for alcohol withdrawal and benzodiazepine withdrawal. She was then hospitalized at [facility] 05/29 for complex migraine. Discharge Exam General- adult Head- atraumatic Eyes- PERRL, EOMI, anicteric ENT- oropharynx clear Neck- supple, no JVD, no adenopathy, no thyromegaly; carotids +2/2, no bruits ap preciated Lungs- clear to auscultation and percussion Heart- regular rhythm; no murmur, no gallop, no rub appreciated Abdomen- normal bowel sounds, soft, nontender, no masses or hepatosplenomegaly Extremities- no pretibial edema, no calf tenderness; peripheral pulses intact Neuro- alert, oriented x 3; PERRL, EOMI; no facial palsy; no dysarthria; motor 5/5 bilaterally; no cogwheel rigidity; patellar DTRs +2/2; toes downgoing bilaterally; finger to nose intact bilaterally Skin- warm & dry Updated Medication List Medication Instructions Recorded Confirmed Type albuterol sulfate 90 mcg/actuation 2 puff inhalation Q4 PRN 05/09/23 06/28/24 History aerosol inhaler CONGESTION/WHEEZING multivitamin 1 tab PO DAILY 05/09/23 06/28/24 History thiamine HCl (vitamin B1) 100 mg 100 mg PO DAILY 05/09/23 06/28/24 History tablet lamotrigine 25 mg tablet (Lamictal) 100 mg PO BID 12/09/23 06/28/24 History prazosin 1 mg capsule 1 mg PO HS 12/09/23 06/28/24 History gabapentin 600 mg tablet 600 mg PO Q12H #60 tabs 12/27/23 06/28/24 Rx cariprazine 3 mg capsule (Vraylar) 3 mg PO QAM 05/14/24 06/28/24 History folic acid 1 mg tablet 1 mg PO QAM #30 tabs 05/21/24 06/28/24 Rx lorazepam 1 mg tablet 1 mg PO BID #10 tabs 05/21/24 06/28/24 Rx trazodone 50 mg tablet 50 mg PO HS Sleep #0 tabs 05/21/24 06/28/24 Rx acetaminophen 325 mg tablet 325 mg PO Q6H PRN Pain 06/28/24 06/28/24 History amlodipine 5 mg tablet 5 mg QAM 06/28/24 06/28/24 History Hospital Stay Data Consultations 06/28/24 19:16 ED Decision to Admit Stat 06/29/24 06:51 Consult Neurology Routine Diagnostic Imagining Performed 06/28/24 15:00 CT head/brain wo con Stat 06/29/24 01:48 CT head/brain wo con Stat Pending Results Patient Have Any Pending Studies at Discharge: No Discharge Instructions Given to Patient (Per Discharging Provider) Transfer to [facility] for continuous EEG monitoring Total Time Total Time Spent Total Time Spent (In Minutes): 65
--- NOTE | 2024-06-30 15:36 | Electrocardiogram Report ---
Test Reason : Blood Pressure : */* mmHG Vent. Rate : 103 BPM Atrial Rate : 103 BPM P-R Int : 148 ms QRS Dur : 104 ms QT Int : 354 ms P-R-T Axes : 45 1 38 degrees QTcB Int : 463 ms Sinus tachycardia Left atrial enlargement Incomplete right bundle branch block Borderline ECG When compared with ECG of 24-May-2024 01:25, No significant change was found Confirmed by Pradip Mcleod ([id number]) on 06/30/2024 3:36:12 PM Referred By: REFERRED SELF Confirmed By: Pradip Mcleod
== END 2024-06-29 15:07 | disposition short-term general hospital (02) | DRG 101 ==
LOC: ED 14:39 → 2E 20:02

== ENCOUNTER 2024-10-14 02:02 | Inpatient (IN) ==
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
--- OUTSIDE RECORDS SUMMARY | 2024-10-14 04:34 | External Medical Summary | Summary of Care ---
Author Name Unknown Organization [facility] Address [address] [place] [address] Phone [phone] Care Team Providers Care Electrotyper Name Role Phone Angelic Pereira DO Primary Care Provider [phone] Reason for Visit * Reason Onset Date Comments Letter Requests 09/15/2024 Encounter Details Date Type Department Care Team (Late st Contact Info) Description 09/15/2024 Telephone Neurology [facility] [address] [facility] [place] [address] Josette Beth MD [address] [place] [address] Letter Requests Allergies Active Allergy Reactions Criticality Noted Date Comments Fentanyl High 01/04/2024 Other Reaction(s): "makes me extremely hot" Justicia Adhatoda High 01/02/2023 Other reaction(s): Anaphylaxis Morphine Hives High 12/30/2012 Other reaction(s): Hives Mushroom Extract Complex (Do Not Select) Hives High 05/21/2015 mushrooms Other reaction(s): Hives Peanut Butter Flavoring Agent (Non-Screening) Hives 05/21/2015 Peanuts, nuts Penicillins Unknown High 12/30/2012 Told as a child Other reaction(s): Difficulty Breathing documented as of this encounter (statuses as of 09/16/2024) Medications Blood Pressure Monitoring (ADULT BLOOD PRESSURE CUFF LG) Bonyications:H TN, goal below 130/80 Use daily for blood pressure checks 1 Kit 8 Active Proventil HFA 108 (90 Base) MCG/ACT Inhalation Aerosol SolutionIndicati ons:Acute cough,Acute bronchitis, antibiotics not indicated Inhale by mouth 2 Puffs every 4 hours as needed for Congestion or Wheezing. 18 g 2 Active Folic Acid 400 MCG Oral Tablet DAILY IN THE MORNING 3 Active Multivitamin Adult Oral Tablet Take 1 Tablet by mouth in the morning. Active Thiamine HCl 100 MG Oral Tablet (vitamin B-1) Take 1 Tablet by mouth in the morning. Active Cariprazine HCl 1.5 MG Oral Capsule (Vraylar) Take 1 Capsule by mouth in the morning. Active Prazosin HCl 1 MG Oral Capsule (Minipress) Take 1 Capsule by mouth at bedtime. Active LORazepam 1 MG Oral Tablet (Ativan) Take 1 Tablet by mouth in the morning and 1 Tablet before bedtime. Active Lisdexamfetamine Dimesylate 20 MG Oral Capsule (Vyvanse) Take 1 Capsule by mouth in the morning. Active Acetaminophen 325 MG Oral Tablet (Tylenol) Take 2 Tablets by mouth every 6 hours as needed for Pain, Mild or Pain, Moderate. 30 Tablet 05/31/2024 10:25 AM EDT 4 Active amLODIPine Besylate 5 MG Oral Tablet (Norvasc)Indicat ions:Primary hypertension Take 1 Tablet by mouth in the morning. 30 Tablet 4 Active Propranolol HCl ER 80 MG Oral Capsule Extended Release 24 Hour (Inderal LA) Take 1 Capsule by mouth in the morning. After completion of propranolol 60 mg for 6 weeks, increase to 80 mg starting Sep 19, 2024. Do not start before September 19, 2024. 30 Capsule 5 5 Active traZODone HCl 100 MG Oral Tablet (Desyrel) Take 1 Tablet by mouth at bedtime. 4 Active Baclofen 20 MG Oral Tablet Take 1 Tablet by mouth in the morning and 1 Tablet at noon and 1 Tablet before bedtime. 45 Tablet 1 5 Active Fluticasone Propionate 50 MCG/ACT Nasal Suspension (Flonase) Administer 2 Sprays into each nostril every night at bedtime. 16 g 5 Active Saline [place] 0.65 % Nasal Solution ([place]) Administer 1 [place] into nostril as needed for Congestion. 60 mL 12 5 Active Cetirizine HCl 10 MG Oral Tablet (ZyrTEC) Take 1 Tablet by mouth in the morning. 90 Tablet 1 5 Active EpiPen 2-Dorian 0.3 MG/0.3ML Injection Solution Auto-injector For a severe reaction: Place orange end against the outer thigh, press firmly, hold in place for 10 seconds and go to the Emergency room. 2 Each 2 5 Active Rizatriptan Benzoate 10 MG Oral Tablet (Maxalt) 1 tab by mouth as needed for migraine May repeat dose at 2 hours if needed No more than 2 in 24 hours or 12 in 1 month 10 Tablet 5 Active lamoTRIgine 100 MG Oral Tablet (LaMICtal) Take 1 Tablet by mouth in the morning and 1 Tablet before bedtime. 60 Tablet 5 5 Active documented as of this encounter (statuses as of 09/16/2024) Active Problems Problem Noted Date Diagnosed Date Chronic rhinitis 08/29/2024 Other psychoactive substance abuse, uncomplicate d 08/29/2024 Nonepileptic attack disorder 07/01/2024 Headache due to hypertension 06/29/2024 Intractable migraine with aura without status mi grainosus 05/29/2024 ADHD (attention deficit hype ractivity disorder), combined type 05/29/2024 Food insecurity 02/22/2024 Overview: Per [facility] Protocol Pelvic pain in female 12/04/2023 Alcoholic hepatitis without ascites 09/11/2022 Fatty liver 09/11/2022 Major depressive disorder with single episode Alcohol abuse with intoxication, unspecified Infection of tooth 03/29/2021 Generalized anxiety disorder 09/09/2019 Post-traumatic stress disorder, unspecified 08/18 Seizure-like activity 01/06/2019 Opioid dependence in remission 04/17/2017 Hypertension 08/17/2016 Bipolar 1 disorder Overview (03/29/2021): Dr Neal, [facility] Tobacco abuse documented as of this encounter (statuses as of 09/16/2024) Resolved Problems Problem Noted Date Diagnosed Date Resolved Date Class 2 severe obesity with serious comorbidity and body mass index (BMI) of 38.0 to 38.9 in adult 09/11/2022 05/28/2023 Heart failure 09/11/2022 06/13/2024 Family circumstance 09/11/2022 06/13/20 24 Chronic hypokalemia 03/29/2021 06/13/20 24 Body mass index (BMI) of 40. 0 to 44.9 in adult 10/24/2019 09/11/2022 Overview: Per Obesity protocol BMI 29.0-29.9,adult 04/30/2016 09/11/19 23 Overview (12/24/2016): 185 lbs Hypertensive urgency 07/15/2012 024 documented as of this encounter (statuses as of 09/16/2024) Immunizations Name Administration Dates Next Due COVID-19 mRNA, LNP-s, No Pre serve, 2-Dose Series (Empiribox) 08/07/2021 TDAP (age 10 and older)(Boostrix) 02/25/2019 documented as of this encounter Social History Tobacco Use Types Packs/Day Years Used Date Smoking Tobacco: Every Day Cigarettes 1 22.8 Started: 2001 Passive Smoke Exposure: Current Smokeless Tobacco: Never Alcohol Use Standard Drinks/Week Comments Not Currently 3 (1 standard drink = 0.6 oz pur e alcohol) PHQ-2 Answer Date Recorded PHQ Adult Total Score 0 06/13/2024 Hunger Vital Sign Answer Date Recorded Within the past 12 months, y ou worried that your food would run out before you got the money to buy more. Sometimes true Within the past 12 months, t he food you bought just didn't last and you didn't have money to get more. Sometimes true Childcare Answer Date Recorded Do you feel overwhelmed with taking care of a child, family member or friend? No 07/12/2024 Does your family need help f inding childcare? (Household - for ages 0-17 years) Not on file 07/12/2024 Clothing Answer Date Recorded Have you been unable to get clothing when it was really needed? No 07/12/2024 Is your family able to get c lothes or diapers when needed? (Household - for ages 0-17 years) Not on file 07/12/2024 Personal Safety Answer Date Recorded Do you feel unsafe or have concerns for your saf ety? No 07/12/2024 Do you have concerns for you r family's safety? (Household - for ages 0-17 years) Not on file 07/12/2024 Utilities Answer Date Recorded Do you have trouble paying y our heating, water, or electric bill? No 07/12/2024 Is your family able to pay t he heat, water, or electric bill? (Household - for ages 0-17 years) Not on file 07/12/2024 Does your family have access to good internet? (Household - for ages 0-17 years) Not on file 07/12/2024 Employment Status Answer Date Recorded Are you unemployed or without regular income? No 07/12/2024 Does the household have a [facility] source of income? (Household - for ages 0-17 years) Not on file 07/12/2024 Social Connections Answer Date Recorded How often do you feel lonely or isolated from th ose around you? Rarely 07/12/2024 Financial Resource Strain Answer Date R ecorded Do you have any trouble payi ng for your medications, or do you think you might in the future? No 07/12/2024 Does your family have troubl e paying for medicine? (Household - for ages 0-17 years) Not on file 07/12/2024 Transportation Needs Answer Date Record ed Do you have trouble getting a ride to medical visits or work? (Adult - for ages 18 years and over) Not on file 07/12/2024 Does your family have a hard time getting a ride to doctors visits? (Household - for ages 0-17 years) Not on file 07/12/2024 Has lack of transportation k ept you from medical appointments, meetings, work, or from getting things needed for daily living? Check all that apply. Yes, it has kept me from medical appointments 07/12/2024 Do you (or your family) have trouble finding or paying for a ride (transportation)? (Household - for ages 0-17 years) Not on file 07/12/2024 Housing Stability Answer Date Recorded Do you currently live in a s helter or have no steady place to sleep at night? No 07/12/2024 Do you think you are at risk of becoming homeless? (Adult - for ages 18 years and over) Not on file 07/12/2024 Does your family worry about paying for your home or becoming homeless? (Household - for ages 0-17 years) Not on file 1 09/11/2023 Are you homeless or worried that you might be in the future? No 07/12/2024 Are you (or your family) cain eless or worried that you might be in the future? (Household - for ages 0-17 years) Not on file Food Insecurity Answer Date Recorded Do you need food for this week? No 07/12/2024 Are you able to get enough f ood for your family? (Household - for ages 0-17 years) Not on file 07/12/2024 Does your family need food t his week? (Household - for ages 0-17 years) Not on file 07/12/2024 Do you always have enough fo od for your family? (Household - for ages 0-17 years) Not on file 07/12/2024 Education Answer Date Recorded What is the highest level of school you have completed or the highest degree you have received? GED or equivalent Comments No Sex and Gender Information Value Date Recorded Sex Assigned at Female 10/20/2019 1:40 PM EST Legal Sex Female 6:47 AM EST Gender Identity Female 10/20/2019 1:40 PM EST Sexual Orientation Straight 09/09/2019 11 :27 AM EST documented as of this encounter Functional Status * Are you deaf or do you have serious difficulty hearing? Answer Date of Assessment Author No 06/29/2024 4:41 PM EST Gerri, Do sana Morse RN * Are you blind or do you have serious difficulty seeing, even when wearing glasses? Answer Date of Assessment Author No 06/29/2024 4:41 PM EST Gerri, Do sana Morse RN * Do you have serious difficulty walking or climbing stairs? (5 years old or older) Answer Date of Assessment Author No 06/29/2024 4:41 PM EST Gerri, Do sana Morse RN * Do you have difficulty dressing or bathing? (5 years old or older) Answer Date of Assessment Author No 06/29/2024 4:41 PM Do sana Cui RN * Because of a physical, mental, or emotional condition, do you have difficulty doing errands alone such as visiting a doctors office or shopping? (15 years old or older) Answer Date of Assessment Author No 06/29/2024 4:41 PM Do sana Cui RN documented as of this encounter Mental Status * Because of a physical, mental, or emotional condition, do you have serious difficulty concentrating, remembering, or making decisions? (5 years old or older) Answer Entry Date Author No 06/29/2024 4:41 PM Do sana Cui RN documented in this encounter Miscellaneous Notes * Telephone Encounter - Anjana Alcantar OSA - 09/16/2024 9:17 AM EST Who is calling: Brigette (Patient) Provider patient is established with: Primack What is the concern or issue they are having: Patient called to check if forms were dropped off to the correct location. Relayed message message to patient, * Telephone Encounter - Jerome Baires OSA - 09/15/2024 11:44 AM EST Pt's dropped off filled in seizure reporting form will be put in mailbox documented in this encounter Plan of Treatment Upcoming Encounters Date Type Department Care Team (Late st Contact Info) Description 12/23/2024 10:10 AM EDT Office Visit [facility] Kareem Noble [address] [phone] Angelic Pereira DO [address] [address] 02/06/2025 1:50 PM EDT Telemedicine Neurology[address] [place] [address] Maximilian Tobar MD [address] [place] [address] Scheduled Procedures Name Priority Associated Diagnoses Date/Ti me ESOPHAGOGASTRODUODENOSCOPY ( EGD), FLEXIBLE, TRANSORAL, DIAGNOSTIC Recall Portal hypertension (HCC) COLONOSCOPY FLEXIBLE PROXIMAL DIAGNOSTIC Recall History of colon polyps Health Maintenance Due Date Last Done Comments Influenza Vaccine (FLU shot) (#1) 2024 Depression Monitoring 06/13/2025 06/13/2024 Pneumococcal Vaccine: Pediatrics (0 to 5 Years) and At-Risk Patients (6 to 18 Years and 19+ Years) (1 of 2 - PCV) 06/13/2025 Postponed from 11/26/2006 (Patient Declined After Education) GFR 08/23/2025 08/23/2024, 06/17, 06/30/2024, Additional history exists Pap Smear 04/29/2026 04/29/2023, 07/17, 07/28/2016, Additional history exists Albumin/Creatinine Ratio 06/13/2027 06/13/2024 Diabetes Screening 08/23/2027 08/23/2024, 1 08/31/2023, 06/30/2024, Additional history exists Cervical Cancer Screening 04/29/2028 HPV/Co-Test 04/29/2028 04/29/2023 DTap/Tdap Vaccines (2 - Td or Tdap) 02/25/2029 02/25/2019 Colonoscopy 11/26/2032 09/08/2022 COVID-19 Vaccine Discontinued 08/07/2021 RETIRED - COLONOSCOPY-EVERY 5 YRS AGES 18-100 Discontinued 09/08/2022 HPV (Gardasil) Vaccine Aged Out No lo [...] on File) Date Activated Date Inactivated Comments 06/29/2024 4:57 PM 07/01/2024 2:48 PM This order reflects the patients wishes and were consensually agreed upon. Question Answer Comments Discussion of Advance Directives occurred with: Patient * Full Code Date Activated Date Inactivated Comments 05/29/2024 11:16 [...] Advance Directives occurred with: Patient Care Teams Electrotyper Relationship Specialty Start Date End Date Angelic Pereira DO PCP - General Family Medicine 01/20/18 documented as of this encounter
--- OUTSIDE RECORDS SUMMARY | 2024-10-14 04:34 | External Medical Summary | Summary of Care ---
Author Name Unknown Organization [facility] Address [address] [place] [address] Phone [phone] Care Team Providers Care Offender Employment Specialist Name Role Phone Angelic Pereira Primary Care Provider Reason for Visit * Reason Comments eRx-Medication Refill Encounter Details Date Type Department Care Team (Late st Contact Info) Description 09/22/2024 Refill [facility] [address] [place] [address] Yane Thomas MD [address] [place] [address] Allergies Active Allergy Reactions Criticality Noted Date [...] as of this encounter (statuses as of 09/23/2024) Medications Blood Pressure Monitoring (ADULT BLOOD PRESSURE CUFF LG) KITIndications: HTN, goal below 130/80 Use daily for blood pressure checks 1 Kit 01/21/20 18 Active Proventil HFA 108 (90 Base) MCG/ACT Inhalation Aerosol SolutionIndicat ions:Acute cough,Acute bronchitis, antibiotics not indicated Inhale by mouth 2 Puffs every 4 hours as needed for Congestion or Wheezing. 18 g 06/01/20 22 Active Folic Acid 400 MCG Oral Tablet DAILY IN THE MORNING 09/09/19 23 Active Multivitamin Adult Oral Tablet Take 1 [...] morning and 1 Tablet before bedtime. Active Lisdexamfetamin e Dimesylate 20 MG Oral Capsule (Vyvanse) Take 1 Capsule by mouth in the morning. Active Acetaminophen 325 MG Oral Tablet (Tylenol) Take 2 Tablets by mouth every 6 hours as needed for Pain, Mild or Pain, Moderate. 30 Tablet 4 10:25 AM EDT 05/31/20 24 Active amLODIPine Besylate 5 MG Oral Tablet (Norvasc)Indica tions:Primary hypertension Take 1 Tablet by mouth in the morning. 30 Tablet 06/13/20 24 Active Propranolol HCl ER 80 MG Oral Capsule Extended Release 24 Hour (Inderal LA) Take 1 Capsule by mouth in the morning. After completion of propranolol 60 mg for 6 weeks, increase to 80 mg starting Sep 19, 2024. Do not start before September 19, 2024. 30 Capsule 5 09/19/19 25 Active traZODone HCl 100 MG Oral Tablet (Desyrel) Take 1 Tablet by mouth at bedtime. 08/15/20 24 Active Baclofen 20 MG Oral Tablet Take 1 Tablet by mouth in the morning and 1 Tablet at noon and 1 Tablet before bedtime. 45 Tablet 1 08/29/19 25 Active Saline [place] 0.65 % Nasal Solution ([place]) Administer 1 [place] into nostril as needed for Congestion. 60 mL 12 08/29/19 25 Active Cetirizine HCl 10 MG Oral Tablet (ZyrTEC) Take 1 Tablet by mouth in the morning. 90 Tablet 1 08/29/19 25 Active EpiPen 2-Dorian 0.3 MG/0.3ML Injection Solution Auto-injector For a severe reaction: Place orange end against the outer thigh, press firmly, hold in place for 10 seconds and go to the Emergency room. 2 Each 2 08/29/19 25 Active Rizatriptan Benzoate 10 MG Oral Tablet (Maxalt) 1 tab by mouth as needed for migraine May repeat dose at 2 hours if needed No more than 2 in 24 hours or 12 in 1 month 10 Tablet 09/14/19 25 Active lamoTRIgine 100 MG Oral Tablet (LaMICtal) Take 1 Tablet by mouth in the morning and 1 Tablet before bedtime. 60 Tablet 5 09/14/19 25 Active Fluticasone Propionate 50 MCG/ACT Nasal Suspension (Flonase) Administer 2 Sprays into each nostril every night at bedtime. 16 g 1 09/23/19 25 Active Fluticasone Propionate 50 MCG/ACT Nasal Suspension (Flonase) Administer 2 Sprays into each nostril every night at bedtime. 16 g 08/29/19 25 025 Discontinued documented as of this encounter (statuses as of 09/23/2024) Active Problems Problem Noted Date Diagnosed Date [...] Hypertension 08/17/2016 Bipolar 1 [facility] Tobacco abuse documented as of this encounter (statuses as of 09/23/2024) Resolved Problems Problem Noted Date Diagnosed Date [...] as of this encounter (statuses as of 09/23/2024) Immunizations Name Administration Dates Next Due COVID-19 mRNA, LNP-s, No Pre serve, 2-Dose Series (Holganix) 08/07/2021 TDAP (age 10 and older)(Boostrix) 02/25/2019 [...] No 07/12/2024 Does the household have a re gular [...] ages 0-17 years) Not on file 07/12/2024 Food Insecurity Answer Date Recorded Within the past 12 months, y ou worried that your food would run out before you got the money to buy more. Sometimes true Within the past 12 months, t he food you bought just didn't last and you didn't have money to get more. Sometimes true Do you need food for this week? No 07/12/2024 Education Answer Date Recorded What is [...] EST Gerri, Do sana Morse RN * Because of a physical, mental, or emotional condition, do you have difficulty doing errands alone such as visiting a doctors office or shopping? (15 years old or older) Answer Date of Assessment Author No 06/29/2024 4:41 PM EST Gerri, Do sana Morse RN documented as of this encounter Mental Status * Because of a physical, mental, or emotional condition, do you have serious difficulty concentrating, remembering, or making decisions? (5 years old or older) Answer Entry Date Author No 06/29/2024 4:41 PM EST Gerri, Do sana Morse RN documented in this encounter Miscellaneous Notes * Telephone Encounter - Yane Thomas MD - 09/23/2024 8:13 AM ESTSigned Prescriptions: Disp Refills Fluticasone Propionate 50 MCG/ACT Nasal [place]*16 g 1 Sig: Administer 2 Sprays into each nostril every night at bedtime. Authorizing Provider: YANE THOMAS * Telephone Encounter - [facility] - 09/23/2024 8:09 AM ESTPending Prescriptions: Disp Refills Fluticasone Propionate 50 MCG/ACT Nasal [place]*16 g 1 Sig: Administer 2 Sprays into each nostril every night at bedtime. * Telephone Encounter - Saul [facility] - 09/23/2024 8:08 AM EST Unable to authorize medication refills for pended medication(s) at this time. Part of the protocol criteria used for refill authorization was not satisfied. Rx last prescribed for an acute issue, unsure if pt is to continue as needed. Please approve if appropriate. Thank You, Saul [facility] Clinical Pharmacist [facility] 09/23/2024, 8:08 AM * Telephone Encounter - Saul [facility] - 09/23/2024 8:07 AM EST Pending Prescriptions: Disp Refills Fluticasone Propionate 50 MCG/ACT Nasal S*16 g 0 Sig: Administer 2 Sprays into each nostril every night at bedtime. Last Visit: 08/29/2024 (in office), Visit date not found (telemedicine) Next Visit: 12/23/2024 If no future appointments scheduled, and last appointment is greater than a year ago, please schedule patient for a follow-up appointment Last date the medication was ordered: 08/29/24 Pharmacy: [id number] Is this request for a controlled substance? No Urine Drug Screen: Results for orders placed or performed during the hospital encounter of 05/29/24 TOXICOLOGY, URINE SCREEN W/O CONFIRMATION Result Value Amphetamines Screen, U Positive (A) Benzodiazepines Screen, U Positive (A) Cannabinoids Screen, U Positive (A) Cocaine Metabolite Screen, U Negative Fentanyl Screen, U Negative Hydrocodone Screen, U Negative Methadone Metabolite Screen, U Negative Morphine/Codeine Screen, U Negative Oxycodone Screen, U Negative Narrative Cutoff Concentrations: Drug Level Amphetamines 500 ng/mL Benzodiazepines 100 ng/mL Cannabinoids 50 ng/mL Cocaine Metabolite 150 ng/mL Fentanyl 1 ng/mL Hydrocodone / Hydromorphone 300 ng/mL Methadone Metabolite 100 ng/mL Morphine / Codeine 300 ng/mL Oxycodone / Oxymorphone 100 ng/mL Screening results are presumptive and can only be used for medical purposes. Confirmatory testing is available upon request. Patient Phone Numbers Labs: Lab Results Component Value Date/Time CREAT 0.79 08/23/2024 12:00 AM CREAT 0.8 06/06/2020 11:16 AM POTASSIUM 4.0 08/23/2024 12:00 AM POTASSIUM 4.4 06/06/2020 11:16 AM TSH 6.12 (H) 05/29/2024 08:28 PM TSH 2.860 12/01/2018 12:00 AM TSH 0.88 01/20/2018 11:24 AM LDL 114 09/17/2022 07:41 AM LDLCALC 84 11/22/2018 12:00 AM ALT 20 06/13/2024 11:53 AM ALT 18 06/06/2020 11:16 AM HGBA1C 5.1 09/17/2022 07:41 AM documented in this encounter Plan of Treatment Upcoming Encounters Date Type Department Care Team (Late st Contact Info) Description 12/23/2024 10:10 AM EDT [facility] [address] [address] Angelic Pereira DO [address] [address] 02/06/2025 1:50 PM EDT [address]med[address] [address] Maximilian Tobar MD [address] [place] [address] Scheduled Procedures Name Priority Associated Diagnoses Date/Ti me ESOPHAGOGASTRODUODENOSCOPY ( EGD), FLEXIBLE, TRANSORAL, DIAGNOSTIC Recall Portal hypertension (HCC) COLONOSCOPY FLEXIBLE PROXIMAL DIAGNOSTIC Recall History of colon polyps Health Maintenance Due Date Last Done Comments Influenza Vaccine (FLU shot) (#1) 2024 *NEPHROLOGY REFERRAL DUE TO RESISTANT HTN 09/17/2024 Depression Monitoring 06/13/2025 06/13/2024 Pneumococcal Vaccine: Pediatrics [...] Advance Directives occurred with: Patient Care Teams Offender Employment Specialist Relationship Specialty Start Date End Date Angelic Pereira DO PCP - General Family Medicine 01/20/18 documented as of this encounter
--- OUTSIDE RECORDS SUMMARY | 2024-10-14 04:34 | External Medical Summary | Summary of Care ---
Author Name Unknown Organization [facility] Address [address] [place] [address] Phone [phone] Care Team Providers Care Air Cargo Agent Name Role Phone Angelic Pereira Primary Care Provider Encounter Details Date Type Department Care Team (Late st Contact Info) Description 09/05/2024 Population Health External Data Unspecified Department Allergies [...] as of this encounter (statuses as of 09/05/2024) Medications Blood Pressure Monitoring (ADULT BLOOD PRESSURE CUFF LG) KITIndications:H TN, goal below 130/80 Use daily for blood pressure checks 1 Kit 8 Active Proventil HFA 108 (90 Base) MCG/ACT Inhalation Aerosol SolutionIndicati ons:Acute cough,Acute bronchitis, antibiotics not indicated Inhale by mouth 2 Puffs every 4 hours as needed for Congestion or Wheezing. 18 g 10/16/202 2 Active Folic Acid 400 MCG Oral [...] in the morning. 30 Tablet 4 Active lamoTRIgine 25 MG Oral Tablet (LaMICtal) Take 4 Tablets by mouth in the morning and 4 Tablets before bedtime. . 180 Tablet 4 4 Active Lasmiditan Succinate 100 MG Oral Tablet (Reyvow) Take 1 tab at onset of moderate to severe headache. Max 1 tab in 24 hours. Max 2 days per week. Do not drive for 8 hours after taking. 8 Tablet 5 4 Active Additional Information Patient not taking.Reported on 08/29/2024 Propranolol HCl ER 80 MG Oral Capsule Extended Release 24 Hour (Inderal LA) Take 1 Capsule by mouth in the morning. After completion of propranolol 60 mg for 6 weeks, increase to 80 mg starting Sep 19, 2024. Do not start before September 19, 2024. 30 Capsule 5 5 Active Azithromycin 250 MG Oral Tablet (Zithromax) Take 1 Tablet by mouth in the morning. 5 Active traZODone HCl 100 MG Oral [...] at bedtime. 16 g 5 Active Saline Dale 0.65 % Nasal Solution ([place]) Administer 1 Dale into nostril as needed for Congestion. 60 [...] to the Emergency room. 2 Each 2 Active documented as of this encounter (statuses as of 09/05/2024) Active Problems Problem Noted Date Diagnosed Date [...] Bipolar 1 disorder Overview (03/29/2021): Dr Neal, [facility] Tobacco abuse documented as of this encounter (statuses as of 09/05/2024) Resolved Problems Problem Noted Date Diagnosed Date [...] as of this encounter (statuses as of 09/05/2024) Immunizations Name Administration Dates Next Due COVID-19 mRNA, LNP-s, No Pre serve, 2-Dose Series (ResponseTap (formerly AdInsight)) 08/07/2021 TDAP (age 10 and older)(Boostrix) 02/25/2019 [...] sana Cui RN documented in this encounter Plan of Treatment Upcoming Encounters Date Type Department Care Team (Late st Contact Info) Description 12/23/2024 10:10 AM EDT [facility] [place] [phone] Angelic Pereira DO [address] [address] Scheduled Procedures Name Priority Associated Diagnoses Date/Ti [...] Advance Directives occurred with: Patient Care Teams Air Cargo Agent Relationship Specialty Start Date End Date Angelic Pereira DO PCP - General Family Medicine 01/20/18 documented as of this encounter
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
[2024-10-14] MEDS: LABETALOL HCL IV 5 MG/ML 20ML IV STA (04:52)
[2024-10-14] MEDS: ONDANSETRON INJ 2 MG/ML 2 ML VIAL IV STA (04:53)
[2024-10-14] MEDS ORDERED: GABAPENTIN 1200MG ALCOHOL WITHDRAWAL LOAD PO STA (05:26)
[2024-10-14] MEDS ORDERED: Ativan IV Alcohol Withdrawal--Active Protocol IV PRN (05:26)
[2024-10-14] MEDS ORDERED: LORazepam 2 MG/1 ML VIAL IV PRN ×3 (05:26)
[2024-10-14] MEDS ORDERED: LABETALOL HCL IV 5 MG/ML 20ML IV PRN (05:26)
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
[2024-10-14] MEDS: SODIUM CHLORIDE 0.9% 1,000 ML IV SCH (05:41)
[2024-10-14] MEDS: HYDROmorphone INJ 0.5 MG/0.5 ML SYR ONE (05:41)
[2024-10-14 05:44] LABS: Basophils # (auto) 0.13 K/uL (0.00-0.20); Eosinophils # (auto) 0.33 K/uL (0.00-0.50); Eosinophils % (auto) 2.6 %; Hematocrit (blood only) 41.5 % (37.0-47.0); Hemoglobin 14.3 g/dl (12.0-16.0); Immature Granulocytes # (auto) 0.04 K/uL (0.01-0.20); Immature Granulocytes % (auto) 0.3 %; Mean Corpuscular Hemoglobin 31.4 pg (25.0-34.0); Mean Corpuscular Hgb Conc 34.5 g/dL (32.0-36.0); Mean Platelet Volume 9.8 fL (9.4-12.4); Monocytes # (auto) 0.96 K/uL (0.11-0.59); Monocytes % (auto) 7.4 %; Neutrophils # (auto) 7.43 K/uL (1.40-6.50); Neutrophils % (auto) 57.7 %; Platelet Count 261 K/uL (130-400); RDW Coefficient of Variation 13.7 % (11.5-14.5); RDW Standard Deviation 45.6 fL (36.4-46.3); Red Blood Count 4.56 M/uL (4.20-5.40); White Blood Count 12.89 K/ul (4.8-10.8)
[2024-10-14 06:08] LABS: Albumin Level 4.4 gm/dl (3.4-5.0); Calcium 9.2 mg/dl (8.6-10.3); Magnesium 1.3 mg/dl (1.7-2.4); Potassium 3.3 mmol/L (3.5-5.1)
[2024-10-14 06:14] LABS: Albumin Globulin Ratio 1.4 (0.9-2); BUN Creatinine Ratio 7.7 (10-20); Creatinine Clr Calc Pharmacy 129.4 ml/min; Globulin 3.2 gm/dl (2.5-4.0); INR 1.1 (0.9-1.1); Partial Thromboplastin Time 27 Seconds (21-31); Prothrombin Time 12.2 Seconds (9.0-12.0); Total Protein 7.6 gm/dl (6.0-8.3)
[2024-10-14] MEDS ORDERED: NITROGLYCERIN SL 0.4 MG/TAB TAB SL PRN (06:14)
[2024-10-14] MEDS ORDERED: RIZATRIPTAN BENZOATE 10 MG TAB PO PRN (06:14)
[2024-10-14 06:27] LABS: Troponin I High Sensitivity 5.9 pg/ml (0-14)
[2024-10-14] MEDS: GABAPENTIN 600 MG TAB PO ONE (06:31)
[2024-10-14] MEDS: THIAMINE HCL 100 MG in SYRINGE 9 ML IV STA (06:31)
[2024-10-14] MEDS: GABAPENTIN 600 MG TAB PO SCH (07:53)
[2024-10-14] MEDS: ENOXAPARIN INJ 40 MG/0.4 ML SYR SQ SCH (07:54)
[2024-10-14] MEDS: THIAMINE HCL 100 MG TAB PO SCH (07:54)
[2024-10-14] MEDS: PROPRANOLOL HCL 60 MG LA CAP PO SCH (07:56)
[2024-10-14] MEDS: CARIPRAZINE HCL 3 MG CAP PO SCH (07:57)
[2024-10-14] MEDS: MULTIVITAMIN TAB PO SCH (07:57)
[2024-10-14] MEDS: lamoTRIgine 100 MG TAB PO SCH (07:58)
[2024-10-14] MEDS: CETIRIZINE HCL 10 MG TABLET PO SCH (07:58)
[2024-10-14] MEDS: FLUTICASONE PROPIONATE NA SPR 16 GM BTL SCH (07:59)
[2024-10-14] MEDS: BACLOFEN 20 MG TAB PO SCH (07:59)
[2024-10-14] MEDS: amLODIPine BESYLATE 5 MG TAB PO SCH (07:59)
[2024-10-14] MEDS: FOLIC ACID 1 MG TAB PO SCH (08:00)
[2024-10-14] MEDS: NICOTINE 21 MG/24 HR TDSY TD SCH (08:10)
[2024-10-14] MEDS: LORazepam 1 MG TAB PO SCH (08:10)
[2024-10-14] MEDS: HYDROmorphone INJ 0.5 MG/0.5 ML SYR IV PRN (08:11)
[2024-10-14] MEDS: ONDANSETRON INJ 2 MG/ML 2 ML VIAL IV PRN (08:20)
[2024-10-14 10:11] LABS: Amphetamines+Metham, Urine Neg (Neg); Barbiturates, Urine Neg (Neg); Benzodiazepine, Urine Neg (Neg); Cocaine, Urine Neg (Neg); Fentanyl, Urine Neg (Neg); MDMA (Ecstacy), Urine Neg (Neg); Marijuana, Urine Neg (Neg); Methadone, Urine Neg (Neg); Opiate, Urine Pos (Neg); Phencyclidine, Urine Neg (Neg)
[2024-10-14] MEDS: POTASSIUM CHLORIDE PWD 20 MEQ PACK PO STA (10:30)
[2024-10-14] MEDS: MAGNESIUM SULFATE / D5W 1 GM/100 ML BAG IV SCH (10:32)
[2024-10-14] MEDS: hydrALAZINE HCL 20 MG/ML VIAL IV ONE (11:39)
[2024-10-14] MEDS: ACETAMINOPHEN 325 MG TAB PO PRN (12:51)
[2024-10-14 13:05] VITALS: O2SAT 95
[2024-10-14 15:38] VITALS: RESP 18; TEMP 98.4
--- NOTE | 2024-10-14 16:25 | Discharge Summary ---
Discharge Summary Date of Service October 14, 2024 Principal Dx & Hospital Course #1 = Principal Diagnosis (1) Hypertensive urgency: Ms. Patel is a 38-year-old female with past medical history significant for chronic rhinitis, hypertension, alcoholic hepatitis, fatty liver, seizure-like activity, history of pelvic pain, history of intractable migraines, history of headache due to hypertension, bipolar 1 disorder, opiate dependence in remission, generalized anxiety disorder, ongoing tobacco abuse, PTSD, depression, ADHD, history of psychoactive substance abuse, was sent in from [facility] for possible ovarian torsion as patient went there for left lower abdominal pain. Patient was evaluated by OBGYN who did not suspect torsion based upon exam. CT AB/P reviewed from [facility], suspect perhaps in setting of acute LLQ pain and diverticulosis perhaps mild diverticulitis flare as no other structural etiology for discomfort. Patient is allergic to penicillins there for cipro for 3 day and low fiber diet encouraged. #Hypertensive urgency resolved with home meds Continue home medication Norvasc and propranolol Patient states she vomited her blood pressure pills yesterday IV labetalol as needed We will monitor #Abdominal pain ? mild diverticulitis #Left lower quadrant Patient was transferred from [facility] because of question of ovarian torsion as they could not see ovary on ultrasound Evaluated by [employer]MENT [employer]ANER in the ER, no signs of torsion suspect perhaps mild developing diverticulitis cipro bid x 3 days low fiber diet and follow up #Alcoholism declined resources #History of seizure-like activity Continue Lamictal #Bipolar disorder PTSD Generalized anxiety disorder Depression Continue home Lamictal, prazosin and cariprazine and lisdexamfetamine and Ativan and trazodone #Tobacco abuse Counseling Nicotine patch Notes For Next Care Provider Medication Changes From Visit Ciprofloxacin BID Admission HPI Per Admitting Provider 38-year-old female with past medical history significant for chronic rhinitis, hypertension, alcoholic hepatitis, fatty liver, seizure-like activity, history of pelvic pain, history of intractable migraines, history of headache due to hypertension, bipolar 1 disorder, opiate dependence in remission, generalized anxiety disorder, ongoing tobacco abuse, PTSD, depression, ADHD, history of psychoactive substance abuse, was sent in from [facility] for possible ovarian torsion as patient went there for left lower abdominal pain. Seems that she has ultrasound and they could not see left ovary and was transferred here. Evaluated by [employer]. As blood pressure was high we are asked to see the patient by E[employer]IN[employer]. Patient's says has some pain in the left lower quadrant region. Had nausea and was vomiting since yesterday. With nausea medication the nausea is improved. Asking for pain medication. Denies any fevers. Normal bowel and bladder movements. Denies any chest pain or shortness of breath. No cough. Currently no headache. No sore throat. Hemodynamics are okay. Patient states she is drinks mixed drinks 1 to 2 cans in 2 to 3 days. Smokes marijuana once in a while. Denies any other drug use. In June 2024 Patient was transferred to [facility] from [facility] for continuous EEG monitoring for possible absence seizures. As per [facility] records diagnosis was nonepileptic seizure attacks. She she was also admitted to [facility] in May 2024 for alcohol withdrawal and benzodiazepine withdrawal. Past medical history. As mentioned above Past surgical history. Cholecystectomy. Colonoscopy. EGD. EGD with endoscop ic ultrasound. Hemorrhoidectomy. Hysteroscopy endometrial ablation. Ligation oviducts. Appendectomy. Surgical removal of tooth. Social history. Smokes 1 pack a day for last 23 years. Drinks alcohol mixed drinks 1-2 cans in 2 to 3 days. Smokes marijuana once in a while. Family history. Mother had bipolar disorder. Heart attack. Stroke. Maternal aunt had breast cancer. Maternal grandmother had breast cancer. Heart attack. Sister has kidney disease. Paternal aunt had liver disease. Admission Exam Per Admitting Provider General- Not in distress Head- atraumatic Eyes- PERRL. ENT- oropharynx clear Neck- supple, no JVD. Lungs- clear to auscultation no wheezing or crackles Heart- regular rhythm; no murmur, no gallop Abdomen- normal bowel sounds, soft, LLQ tender no distension Extremities- no pretibial edema, no erythema seen. Neuro- alert, oriented PERRL, no facial palsy; no dysarthria; moves extremities Patient appeared to be well-developed well-nourished 39-year-old female alert oriented x 3 cooperative in no acute distress. Trachea was midline there is no cervical adenopathy. Lungs are clear to auscultation and percussion. Abdomen revealed good bowel sounds. There was no CVA tenderness. No calf tenderness. Pelvic exam revealed good suspension of vaginal cuff. Bimanual examination did not reveal any tender areas in the pelvis. Discharge Exam Constitutional WD/WN, vitals as above Respiratory normal respiratory effort, lungs clear to auscultation Cardiovascular RRR, no murmur, no edema Gastrointestinal (Abdomen) LLQ tenderness Updated Medication List Medication Instructions Recorded Confirmed Type amlodipine 5 mg tablet 5 mg PO DAILY 10/14/24 10/14/24 History baclofen 20 mg tablet 20 mg PO TID 10/14/24 10/14/24 History cariprazine 3 mg capsule (Vraylar) 3 mg PO DAILY 10/14/24 10/14/24 History cetirizine 10 mg tablet 10 mg PO DAILY 10/14/24 10/14/24 History ciprofloxacin HCl 500 mg tablet 500 mg PO BID #6 tabs 10/14/24 Rx fluticasone propionate 50 1 spray intranasal DAILY 10/14/24 10/14/24 History mcg/actuation nasal spray,suspension folic acid 1 mg tablet 1 mg PO DAILY 10/14/24 10/14/24 History lamotrigine 100 mg tablet 100 mg PO BID 10/14/24 10/14/24 History lisdexamfetamine 30 mg capsule 30 mg PO DAILY 10/14/24 10/14/24 History lorazepam 1 mg tablet 1 mg PO BID 10/14/24 10/14/24 History prazosin 1 mg capsule 1 mg PO HS 10/14/24 10/14/24 History propranolol 60 mg capsule,24 60 mg PO DAILY 10/14/24 10/14/24 History hr,extended release rizatriptan 10 mg tablet 10 mg PO UD PRN Migraine Headache 10/14/24 10/14/24 History trazodone 150 mg tablet 150 mg PO HS 10/14/24 10/14/24 History Hospital Stay Data Consultations 10/14/24 04:20 ED Decision to Admit Stat Pending Results Patient Have Any Pending Studies at Discharge: No Discharge Instructions Given to Patient (Per Discharging Provider) You were assessed for ovarian torsion which seemed unlikely per the OBGYN team Your scans revealed some diverticulosis. Given your leukocytosis and severe abdo brigette pain, please complete a short course of ciprofloxacin two times a day. Your first dose is this evening. * Get enough rest to allow your colon to rest * Follow a clear liquid or low-fiber diet * After recovery, you can gradually increase solid foods, beginning with low- fiber foods * After recovery, you can resume a regular diet with high-fiber foods Total Time Total Time Spent Total Time Spent (In Minutes): 45
[2024-10-14] MEDS: KETOROLAC TROMETHAMINE 15 MG/ML VIAL IV PRN (17:34)
[2024-10-14 17:38] VITALS: BP 199/125; PULSE 70
[2024-10-14] MEDS ORDERED: traZODone HCL 50 MG TAB PO SCH (21:00)
[2024-10-14] MEDS ORDERED: PRAZOSIN HCL 1 MG CAP PO SCH (21:00)
[2024-10-14] MEDS ORDERED: GABAPENTIN 600 MG TAB PO SCH (22:00)
[2024-10-16] MEDS ORDERED: GABAPENTIN 600 MG TAB PO SCH
[2024-10-17] MEDS ORDERED: GABAPENTIN 600 MG TAB PO SCH (12:00)
== END 2024-10-14 18:51 | disposition home or self-care (01) | DRG 305 ==
LOC: ED 02:02 → 2S 05:26
DX: I10 Essential (primary) hypertension; G40.909 Epilepsy, unspecified, not intractable, without status epilepticus; Z88.0 Allergy status to penicillin; Z56.0 Unemployment, unspecified; Z71.6 Tobacco abuse counseling; F31.9 Bipolar disorder, unspecified; K76.0 Fatty (change of) liver, not elsewhere classified; Z79.899 Other long term (current) drug therapy; Z86.16 Personal history of COVID-19; Z88.5 Allergy status to narcotic agent; F17.210 Nicotine dependence, cigarettes, uncomplicated; I16.0 Hypertensive urgency; F41.1 Generalized anxiety disorder; Z86.718 Personal history of other venous thrombosis and embolism; Z82.49 Family history of ischemic heart disease and other diseases of the circulatory system; F11.21 Opioid dependence, in remission; F43.10 Post-traumatic stress disorder, unspecified; F10.20 Alcohol dependence, uncomplicated

== ENCOUNTER 2025-05-20 16:27 | Inpatient (IN) ==
[2025-05-20] MEDS: OPTIRAY 320 125ml IV ONE (16:35)
--- NOTE | 2025-05-20 16:55 | CT Scan Report ---
Head CT without contrast CT angiogram of the neck CT angiogram of the brain with contrast Provided History: Neuro deficit Comparison: None Technique: HEAD CT: Using multidetector thin collimation helical acquisition technique, axial, coronal and sagittal CT images from the skull base to the vertex were obtained without intravenous contrast. HEAD and NECK CTA: During rapid bolus intravenous injection of nonionic contrast material, axial images were obtained using thin collimation multidetector helical technique from the base of the neck through the of vertex of the head. This CT angiogram data was reconstructed at thin intervals with mild overlap. 3D reconstructions were obtained. The axial source images, multiplanar reformations, 3D reconstructions in both maximum intensity projection display and volume rendered models were reviewed. Dose reduction techniques were achieved by using automatic exposure control and/or adjustment of mA and/or kV according to patient size and/or use of iterative reconstruction technique. Findings: Head CT: There is no intracranial hemorrhage, mass effect, or midline shift. Lucas/white matter differentiation in both cerebral hemispheres is preserved. Ventricles are proportionate to the cerebral sulci. Head CTA demonstrates no aneurysm or stenosis of the major intracranial arteries. Neck CTA demonstrates no stenosis of the major cervical arteries. The origins of the great vessels from the aortic arch are patent. No mass is noted within the visualized portions of the cervical soft tissues or lung apices. Impression: 1. Head CTA demonstrates no aneurysm or stenosis of the major intracranial arteries, 2. Neck CTA demonstrates no stenosis of the major cervical arteries. Tortuosity of the distal internal carotid arteries, may be seen with fibromuscular dysplasia. 3. No intracranial hemorrhage on the noncontrast head CT. Electronically signed by Zeferino Wilson 05-20-2025 4:55 PM
[2025-05-20 17:34] LABS: Hematocrit (blood only) 43.4 % (37.0-47.0); Hemoglobin 14.6 g/dl (12.0-16.0); Immature Granulocytes # (auto) 0.09 K/uL (0.01-0.20); Immature Granulocytes % (auto) 0.6 %; Mean Corpuscular Hemoglobin 30.6 pg (25.0-34.0); Mean Corpuscular Volume 91.0 fL (80.0-100.0); Platelet Count 220 K/uL (130-400); RDW Standard Deviation 42.7 fL (36.4-46.3); Red Blood Count 4.77 M/uL (4.20-5.40); White Blood Count 14.12 K/ul (4.8-10.8)
--- NOTE | 2025-05-20 17:49 | Emergency Department Note ---
Impression & Plan Migraine, TIA (transient ischemic attack), Tachycardia ED Provider Note NAME: CECILIA NIEVES AGE: 39 SEX: F : 1985 ARRIVES VIA: Ambulance INFORMANT: Patient, ED PROVIDER(S): Jos Crouch MD CHIEF COMPLAINT: Stroke alert HPI: This is a 39-year-old female presenting as a stroke alert. Patient began having symptoms at around 11 AM with headache, weakness. She was urgent care and is advised to come here. She has history of complex migraines in the past. She had history of TIA as well. She states that she began having right sided weakness and facial droop. EMS reports similar. ROS: See above HPI for pertinent positives & negatives. A total of 10 systems reviewed and were otherwise negative. PAST MEDICAL HISTORY: See Below PAST SURGICAL HISTORY: See Below FAMILY HISTORY: See Below SOCIAL HISTORY: See Below HOME MEDICATIONS: See Below ALLERGIES: See Below VITALS: See Below PHYSICAL EXAMINATION: General: resting comfortably in no acute distress Head: Normocephalic and atraumatic Eyes: Normal inspection, extraocular muscles intact Ear, nose, throat: Normal external exam Neck: Normal range of motion Respiratory: lungs clear to auscultation bilaterally Cardiovascular: Regular rate/rhythm, no murmur GI: soft, nontender, no guarding or rebound Extremities: nontender, moves all extremities Neuro: The patient awake and alert, appropriately conversive, 3/5 strength in upper and lower extremities on the right side, 5/5 strength on left, subtle right facial droop Skin: Warm, dry, and intact MEDICAL DECISION MAKING: This is a 39-year-old female presenting as a stroke alert. Clinically patient's symptoms started with headache/migraine. Patient took migraine medicine without relief. Have more concern for complex migraine over stroke. Stroke alert still continued with CT imaging and stroke neurologist consultation. Patient out of window for TNK upon arrival and symptom started 5+ hours ago. - CT imaging is negative for acute intracranial pathology - Care discussed with stroke neurology who evaluated the patient. He thinks symptoms may be more functional versus migraine related. - Will admit the patient at this time for further stroke workup. Differential diagnosis: Complex migraine, stroke, TIA, hemorrhage Diagnostics interpreted by me: ECG: ECG independently interpreted by me with sinus tachycardia, rate of 118, normal axis, normal CA, incomplete right bundle branch block, normal QTc, no ST segment elevations consistent with STEMI criteria Cardiac Monitoring: An order was placed for continuous cardiac monitoring. The monitor shows a rate of 113 with sinus tachycardia rhythm. 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 Beliefs That Will Affect Care: None Current Living Situation: Spouse and Family Feels Safe at Home: Yes Safety Concerns: Feels Safe At This Time Assistive Devices: Glasses Allergies Allergies Allergy/AdvReac Type Severity Reaction Status Date / Time Penicillins Allergy Severe Difficulty Verified 05/20/25 17:16 Breathing morphine Allergy Intermediate Hives Verified 05/20/25 17:16 mushroom Allergy Intermediate Hives Verified 05/20/25 17:16 peanut Allergy Intermediate Hives Verified 05/20/25 17:16 fentanyl AdvReac Intermediate "makes me Verified 05/20/25 17:16 extremely hot" MALABAR NUT TREE Allergy Severe Anaphylaxis Uncoded 05/20/25 17:16 Home Meds Home Medications Medication Instructions Recorded Confirmed albuterol sulfate 90 mcg/actuation 2 puff inhalation Q4H PRN 05/20/25 05/20/25 aerosol inhaler Shortness Of Breath Or Wheezing amlodipine 10 mg tablet 10 mg PO DAILY 05/20/25 05/20/25 cariprazine 3 mg capsule (Vraylar) 3 mg PO DAILY 05/20/25 05/20/25 cetirizine 10 mg tablet (Zyrtec) 10 mg PO DAILY 05/20/25 05/20/25 clonazepam 1 mg tablet 1 mg PO DAILY PRN NEEDED 05/20/25 05/20/25 epinephrine 0.3 mg/0.3 mL 0.3 mg IM DIRECTED PRN Allergic 05/20/25 05/20/25 injection, auto-injector (EpiPen) Reaction fluticasone propionate 50 2 spray intranasal HS 05/20/25 05/20/25 mcg/actuation nasal spray,suspension folic acid 400 mcg tablet 0.4 mg PO DAILY 05/20/25 05/20/25 ibuprofen 200 mg tablet 200 mg PO Q6H PRN Pain 05/20/25 05/20/25 lamotrigine 100 mg tablet 100 mg PO BID 05/20/25 05/20/25 (Lamictal) lasmiditan 100 mg tablet 100 mg PO DIRECTED PRN SEVERE 05/20/25 05/20/25 HEADACHES lidocaine-prilocaine 2.5 %-2.5 % 1 applic topical DIRECTED PRN 05/20/25 05/20/25 topical cream PRIOR TO INJECTIONS lisdexamfetamine 30 mg capsule 30 mg PO DAILY 05/20/25 05/20/25 (Vyvanse) lisdexamfetamine 40 mg capsule 40 mg PO DAILY 05/20/25 05/20/25 (Vyvanse) losartan 25 mg tablet 25 mg PO DAILY 05/20/25 05/20/25 multivitamin 1 tab PO DAILY 05/20/25 05/20/25 ondansetron 4 mg disintegrating 4 mg PO Q8H PRN NAUSEA/VOMITING 05/20/25 05/20/25 tablet prazosin 2 mg capsule 2 mg PO HS 05/20/25 05/20/25 propranolol 80 mg capsule,extended 80 mg PO DAILY 05/20/25 05/20/25 release 24 hr sodium chloride 0.65 % nasal spray 1 spray intranasal DIRECTED PRN 05/20/25 05/20/25 aerosol (Saline Nasal) Congestion thiamine HCl (vitamin B1) 100 mg 100 mg PO DAILY 05/20/25 05/20/25 tablet (Vitamin B-1) zaleplon 10 mg capsule 10 mg PO HS 05/20/25 05/20/25 Results & Data (ED) Vital Signs Vital Signs - 24 hr 05/20/25 16:27 05/20/25 16:40 05/20/25 17:35 Temperature 36.9 C Temperature Source Oral Pulse Rate 120 H 124 H Pulse Rate [Right Finger] Respiratory Rate 16 Respiratory Effort / Characteristics Non-Labored Spontaneous Respiratory Depth Normal Blood Pressure [Left Arm] Blood Pressure Mean [Left Arm] Pulse Oximetry 95 Oxygen Delivery Method Room Air Room Air Sepsis Recent Fever Within 48 Hours No Sepsis New/Unexplained Change in Mental Status N/A Sepsis Action Taken by Nursing No Action Required 05/20/25 17:55 05/20/25 18:30 Temperature Temperature Source Pulse Rate Pulse Rate [Right Finger] 136 H 118 H Respiratory Rate 14 16 Respiratory Effort / Characteristics Non-Labored Spontaneous Non-Labored Spontaneous Respiratory Depth Normal Normal Blood Pressure [Left Arm] 147/114 H 143/105 H Blood Pressure Mean [Left Arm] 125 117 Pulse Oximetry 96 95 Oxygen Delivery Method Room Air Room Air Sepsis Recent Fever Within 48 Hours Sepsis New/Unexplained Change in Mental Status Sepsis Action Taken by Nursing Laboratory Data 05/20/25 16:47 05/20/25 16:47 Lab Results 05/20/25 05/20/25 05/20/25 Range/Units 16:44 16:47 16:59 WBC 14.12 H (4.8-10.8) K/ul RBC 4.77 (4.20-5.40) M/uL Hgb 14.6 (12.0-16.0) g/dl POC Hgb 15.6 (12.0-16.0) g/dl Hct 43.4 (37.0-47.0) % POC Hct 46 (37-47) % MCV 91.0 (80.0-100.0) fL MCH 30.6 (25.0-34.0) pg MCHC 33.6 (32.0-36.0) g/dL RDW Std Deviation 42.7 (36.4-46.3) fL RDW Coeff of Carmen 12.9 (11.5-14.5) % Plt Count 220 (130-400) K/uL MPV 10.0 (9.4-12.4) fL Immature Gran % (Auto) 0.6 % Neut % (Auto) 57.4 % Lymph % (Auto) 32.4 % Long % (Auto) 6.6 % Eos % (Auto) 2.2 % Baso % (Auto) 0.8 % Neut # (Auto) 8.10 H (1.40-6.50) K/uL Lymph # (Auto) 4.57 H (1.20-3.40) K/uL Long # (Auto) 0.93 H (0.11-0.59) K/uL Eos # (Auto) 0.31 (0.00-0.50) K/uL Baso # (Auto) 0.12 (0.00-0.20) K/uL Immature Gran # (Auto) 0.09 (0.01-0.20) K/uL PT 11.4 (9.0-12.0) Seconds INR 1.1 (0.9-1.1) APTT 25 (21-31) Seconds PTT Ratio 0.9 POC Sodium 138 (135-144) mmol/L Sodium 136 (136-145) mmol/L POC Potassium 3.4 (3.3-5.0) mmol/L Potassium 3.4 L (3.5-5.1) mmol/L POC Chloride 105 (101-112) mmol/L Chloride 103 (98-107) mmol/L Carbon Dioxide 19 L (21-32) mmol/L POC Total CO2 20 L (24-31) mmol/L Anion Gap 14 H (3-11) POC Anion Gap 18.0 (16-25) mmol/L POC BUN 10 (7-18) mg/dl BUN 10 (6-23) mg/dl Creatinine 0.69 (0.6-1.2) mg/dl POC Creatinine 0.8 (0.6-1.3) mg/dl Est Cr Clr Drug Dosing 125.8 ml/min eGFR 114.56 BUN/Creatinine Ratio 14.5 (10-20) Glucose 74 (70-99(Fasting)) mg/dl POC Glucose 82 (70-99) mg/dl POC Glucose (other) 80 (70-99) mg/dl Calcium 9.2 (8.6-10.3) mg/dl POC Ioniz Calcium Yayn 1.14 (1.12-1.32) mmol/l Magnesium 1.7 (1.7-2.4) mg/dl Total Bilirubin 0.5 (0.2-1.0) mg/dl AST 26 (13-39) U/L ALT 23 (7-52) U/L Alkaline Phosphatase 114 H (34-104) U/L Troponin I High Sens 5.4 (0-14) pg/ml Total Protein 7.7 (6.0-8.3) gm/dl Albumin 4.2 (3.4-5.0) gm/dl Globulin 3.5 (2.5-4.0) gm/dl Albumin/Globulin Ratio 1.2 (0.9-2) Blood Type A Negative Antibody Screen NEGATIVE Administered Medications Clonazepam (Clonazepam 1 Mg Tab) 1 mg PO DAILY PRN PRN Reason: NEEDED Stop: 06/19/25 21:10 Last Admin: 05/20/25 21:28 Dose: 1 mg Documented By: FER Gabapentin (Gabapentin 300 Mg Cap) 300 mg PO TID VANIA Stop: 06/19/25 19:19 Last Admin: 05/20/25 21:16 Dose: 300 mg Documented By: FER Heparin Sodium (Porcine) (Heparin Sod 5,000 Unit/0.5 Ml Vial) 5,000 units SQ Q8 VANIA Stop: 06/19/25 21:59 Last Admin: 05/20/25 21:50 Dose: Not Given Documented By: FER Sodium Chloride (Nss) 1,000 mls @ 125 mls/hr IV .Q8H VANIA Stop: 05/23/25 19:14 Last Admin: 05/20/25 21:13 Dose: 125 mls/hr Documented By: FER Ketorolac Tromethamine (Ketorolac Tromethamine 15 Mg/Ml Vial) 15 mg IV Q6H PRN PRN Reason: Headache Stop: 05/25/25 19:03 Last Admin: 05/20/25 22:01 Dose: 15 mg Documented By: FER Lamotrigine (Lamotrigine 100 Mg Tab) 100 mg PO BID [facility]; Protocol Stop: 06/19/25 21:29 Last Admin: 05/20/25 21:50 Dose: 100 mg Documented By: FER Miscellaneous (Vyvanse 30mg--Order Awaiting Action) 1 each N/A QS VANIA Stop: 06/20/25 00:00 Last Admin: 05/20/25 23:00 Dose: Not Given Documented By: FER Pandyacellaneous (Vyvanse 40mg--Order Awaiting Action) 1 each N/A QS VANIA Stop: 06/20/25 00:00 Last Admin: 05/20/25 23:01 Dose: Not Given Documented By: FER Zaleplon 10mg--Non- Formulary Patient's Own Med 1 each PO HS VANIA Stop: 06/19/25 22:14 Last Admin: 05/20/25 22:37 Dose: 10 mg Documented By: FER Discontinued Medications Diphenhydramine HCl (Diphenhydramine 50 Mg/Ml Vial) 25 mg IV NOW STA Stop: 05/20/25 19:05 Last Admin: 05/20/25 19:19 Dose: 25 mg Documented By: MELVA Magnesium Sulfate/Dextrose (Magnesium Sulfate / D5w) 1 gm in 100 mls @ 50 mls/hr IV ONE ONE Stop: 05/20/25 21:03 Last Infusion: 05/20/25 21:29 Dose: Infused Documented By: Admin: 05/20/25 19:20 Dose: 50 mls/hr Documented By: MELVA Acetaminophen (Ofirmev) 1,000 mg in 100 mls @ 400 mls/hr IV NOW STA Stop: 05/20/25 23:16 Last Infusion: 05/20/25 23:39 Dose: Infused Documented By: Admin: 05/20/25 23:12 Dose: 400 mls/hr Documented By: FER Ioversol (Optiray 320 125ml) 118 ml IV ONCE ONE Stop: 05/20/25 16:35 Last Admin: 05/20/25 16:35 Dose: 118 ml Documented By: MEHRAN Ketorolac Tromethamine (Ketorolac Tromethamine 15 Mg/Ml Vial) 15 mg IV NOW ONE Stop: 05/20/25 19:05 Last Admin: 05/20/25 19:19 Dose: 15 mg Documented By: MELVA Metoclopramide HCl (Metoclopramide Hcl Inj 5 Mg/Ml 2 Ml Vial) 10 mg IV NOW STA Stop: 05/20/25 19:05 Last Admin: 05/20/25 19:19 Dose: 10 mg Documented By: MELVA Nicotine (Nicotine 14 Mg/24 Hr Patch) 1 patch TD NOW ONE Stop: 05/20/25 22:01 Last Admin: 05/20/25 22:05 Dose: 1 patch Documented By: FER Imaging Data Radiologist's Impression: Head CT 05/20/25 16:[address] without contrast CT angiogram of the neck CT angiogram of the brain with contrast Provided History: Neuro deficit Comparison: None Technique: HEAD CT: Using multidetector thin collimation helical acquisition technique, axial, coronal and sagittal CT images from the skull base to the vertex were obtained without intravenous contrast. HEAD and NECK CTA: During rapid bolus intravenous injection of nonionic contrast material, axial images were obtained using thin collimation multidetector helical technique from the base of the neck through the of vertex of the head. This CT angiogram data was reconstructed at thin intervals with mild overlap. 3D reconstructions were obtained. The axial source images, multiplanar reformations, 3D reconstructions in both maximum intensity projection display and volume rendered models were reviewed. Dose reduction techniques were achieved by using automatic exposure control and/or adjustment of mA and/or kV according to patient size and/or use of iterative reconstruction technique. Findings: Head CT: There is no intracranial hemorrhage, mass effect, or midline shift. Lucas/white matter differentiation in both cerebral hemispheres is preserved. Ventricles are proportionate to the cerebral sulci. Head CTA demonstrates no aneurysm or stenosis of the major intracranial arteries. Neck CTA demonstrates no stenosis of the major cervical arteries. The origins of the great vessels from the aortic arch are patent. No mass is noted within the visualized portions of the cervical soft tissues or lung apices. Impression: 1. Head CTA demonstrates no aneurysm or stenosis of the major intracranial arteries, 2. Neck CTA demonstrates no stenosis of the major cervical arteries. Tortuosity of the distal internal carotid arteries, may be seen with fibromuscular dysplasia. 3. No intracranial hemorrhage on the noncontrast head CT. Electronically signed by Zeferino Wilson 05-20-2025 4:55 PM Head CTA 05/20/25 16:[address] without contrast CT angiogram of the neck CT angiogram of the brain with contrast Provided History: Neuro deficit Comparison: None Technique: HEAD CT: Using multidetector thin collimation helical acquisition technique, axial, coronal and sagittal CT images from the skull base to the vertex were obtained without intravenous contrast. HEAD and NECK CTA: During rapid bolus intravenous injection of nonionic contrast material, axial images were obtained using thin collimation multidetector helical technique from the base of the neck through the of vertex of the head. This CT angiogram data was reconstructed at thin intervals with mild overlap. 3D reconstructions were obtained. The axial source images, multiplanar reformations, 3D reconstructions in both maximum intensity projection display and volume rendered models were reviewed. Dose reduction techniques were achieved by using automatic exposure control and/or adjustment of mA and/or kV according to patient size and/or use of iterative reconstruction technique. Findings: Head CT: There is no intracranial hemorrhage, mass effect, or midline shift. Lucas/white matter differentiation in both cerebral hemispheres is preserved. Ventricles are proportionate to the cerebral sulci. Head CTA demonstrates no aneurysm or stenosis of the major intracranial arteries. Neck CTA demonstrates no stenosis of the major cervical arteries. The origins of the great vessels from the aortic arch are patent. No mass is noted within the visualized portions of the cervical soft tissues or lung apices. Impression: 1. Head CTA demonstrates no aneurysm or stenosis of the major intracranial arteries, 2. Neck CTA demonstrates no stenosis of the major cervical arteries. Tortuosity of the distal internal carotid arteries, may be seen with fibromuscular dysplasia. 3. No intracranial hemorrhage on the noncontrast head CT. Electronically signed by Zeferino Wilson 05-20-2025 4:55 PM Neck CTA 05/20/25 16:[address] without contrast CT angiogram of the neck CT angiogram of the brain with contrast Provided History: Neuro deficit Comparison: None Technique: HEAD CT: Using multidetector thin collimation helical acquisition technique, axial, coronal and sagittal CT images from the skull base to the vertex were obtained without intravenous contrast. HEAD and NECK CTA: During rapid bolus intravenous injection of nonionic contrast material, axial images were obtained using thin collimation multidetector helical technique from the base of the neck through the of vertex of the head. This CT angiogram data was reconstructed at thin intervals with mild overlap. 3D reconstructions were obtained. The axial source images, multiplanar reformations, 3D reconstructions in both maximum intensity projection display and volume rendered models were reviewed. Dose reduction techniques were achieved by using automatic exposure control and/or adjustment of mA and/or kV according to patient size and/or use of iterative reconstruction technique. Findings: Head CT: There is no intracranial hemorrhage, mass effect, or midline shift. Lucas/white matter differentiation in both cerebral hemispheres is preserved. Ventricles are proportionate to the cerebral sulci. Head CTA demonstrates no aneurysm or stenosis of the major intracranial arteries. Neck CTA demonstrates no stenosis of the major cervical arteries. The origins of the great vessels from the aortic arch are patent. No mass is noted within the visualized portions of the cervical soft tissues or lung apices. Impression: 1. Head CTA demonstrates no aneurysm or stenosis of the major intracranial arteries, 2. Neck CTA demonstrates no stenosis of the major cervical arteries. Tortuosity of the distal internal carotid arteries, may be seen with fibromuscular dysplasia. 3. No intracranial hemorrhage on the noncontrast head CT. Electronically signed by Zeferino Wilson 05-20-2025 4:55 PM Discharge Plan Visit Data Chief Complaint: Stroke Alert ED Provider: Jos Crouch Discharge Problem: Migraine, TIA (transient ischemic attack), Tachycardia Patient Disposition: Admitted As Inpatient Condition: Fair Discharge Instructions Interventions: ED Discharge Assessment Last Done: 05/20/25 20:24
[2025-05-20 17:53] LABS: Alanine Aminotransferase 23.0 U/L (7-52); Albumin Globulin Ratio 1.2 (0.9-2); Albumin Level 4.2 gm/dl (3.4-5.0); Alkaline Phosphatase 114.0 U/L (34-104); Anion Gap 14.0 (3-11); Bilirubin,Total 0.5 mg/dl (0.2-1.0); Blood Urea Nitrogen 10.0 mg/dl (6-23); Calcium 9.2 mg/dl (8.6-10.3); Carbon Dioxide 19.0 mmol/L (21-32); Chloride 103.0 mmol/L (98-107); Creatinine Clr Calc Pharmacy 125.8 ml/min; Globulin 3.5 gm/dl (2.5-4.0); Glucose 74.0 mg/dl (70-99(Fasting)); Magnesium 1.7 mg/dl (1.7-2.4); Potassium 3.4 mmol/L (3.5-5.1); Sodium 136.0 mmol/L (136-145); Total Protein 7.7 gm/dl (6.0-8.3)
[2025-05-20 18:10] LABS: INR 1.1 (0.9-1.1); Partial Thromboplastin Time 25 Seconds (21-31); Prothrombin Time 11.4 Seconds (9.0-12.0)
--- NOTE | 2025-05-20 18:42 | History & Physical Report ---
Date of Service May 20, 2025 Assessment & Plan (1) TIA (transient ischemic attack): (2) Migraine: (3) Bipolar 1 disorder: (4) Tachycardia: Plan The patient is a 39-year-old female who presented to the ED on 05/20/25 with concern for right sided weakness and facial droop, along with frontal headache Rule out TIA/CVA versus functional headache: Head CT/head/neck CTA unremarkable No relief with pain medication for migraine Check brain MRI to rule out stroke Discussed migraine cocktail with neuro, directed to use IV mag/Toradol/Reglan/Benadryl initially For breakthrough headache can utilize gabapentin 300 mg 3 times daily and Toradol as needed, IV hydration will be ordered Tachycardia: Likely secondary to pain from migraine, will also order IV fluids, continue to monitor Hx bipolar/ADHD: Hx seizure disorder: Continue Lamictal/clonazepam/Vyvanse A total of 45 minutes was spent on chart review/facilitating plan of care/reviewing diagnostic data/discussion with consultants Full code DVT prophylaxis: Heparin subcu History of Present Illness Chief Complaint: Right sided weakness/facial droop Primary Care Provider: NO PCP The patient is a 39-year-old female with a past medical history of bipolar, anxiety, seizure, alcoholism, TIA, complex migraines, HTN who presents to the ED on 05/20/25 after she was sent in by urgent care provider due to concerns of possible stroke. Reported her symptoms started around 11 AM with right sided weakness of her upper and lower extremity and also right sided facial droop. Patient reported her headache started this morning prior to the right sided weakness. Reports her headaches normally start in the center of her forehead right behind her eyes. She went to urgent care first and was directed to come to the ER. Arrived at the ER at 430 and a stroke alert was called. Per ER provider, more suspicious for functional migraine but recommended a full stroke workup. She denies any shortness of breath/chest pain/fever/chills/recent respiratory illness. It was also noted that the patient was tachycardic in the [id number] on arrival to the ED Patient was seen 2 days ago in the ED for concern for anaphylactic allergic reaction At that time, PE was ruled out, she was provided IV fluids with no improvement in heart rate On arrival to the ED, labs remarkable for WBC 14, potassium 3.4, bicarb 18, anion gap [address]/head/neck CTA unremarkable Received Benadryl in the ED without any improvement in her headache. She will be admitted for further management Allergies Allergy/AdvReac Type Severity Reaction Status Date / Time Penicillins Allergy Severe Difficulty Verified 05/20/25 17:16 Breathing morphine Allergy Intermediate Hives Verified 05/20/25 17:16 mushroom Allergy Intermediate Hives Verified 05/20/25 17:16 peanut Allergy Intermediate Hives Verified 05/20/25 17:16 fentanyl AdvReac Intermediate "makes me Verified 05/20/25 17:16 extremely hot" MALABAR NUT TREE Allergy Severe Anaphylaxis Uncoded 05/20/25 17:16 Home Medications Medication Instructions Recorded Confirmed Type albuterol sulfate 90 mcg/actuation 2 puff inhalation Q4H PRN 05/20/25 05/20/25 History aerosol inhaler Shortness Of Breath Or Wheezing amlodipine 10 mg tablet 10 mg PO DAILY 05/20/25 05/20/25 History cariprazine 3 mg capsule (Vraylar) 3 mg PO DAILY 05/20/25 05/20/25 History cetirizine 10 mg tablet (Zyrtec) 10 mg PO DAILY 05/20/25 05/20/25 History clonazepam 1 mg tablet 1 mg PO DAILY PRN NEEDED 05/20/25 05/20/25 History epinephrine 0.3 mg/0.3 mL 0.3 mg IM DIRECTED PRN Allergic 05/20/25 05/20/25 History injection, auto-injector (EpiPen) Reaction fluticasone propionate 50 2 spray intranasal HS 05/20/25 05/20/25 History mcg/actuation nasal spray,suspension folic acid 400 mcg tablet 0.4 mg PO DAILY 05/20/25 05/20/25 History ibuprofen 200 mg tablet 200 mg PO Q6H PRN Pain 05/20/25 05/20/25 History lamotrigine 100 mg tablet 100 mg PO BID 05/20/25 05/20/25 History (Lamictal) lasmiditan 100 mg tablet 100 mg PO DIRECTED PRN SEVERE 05/20/25 05/20/25 History HEADACHES lidocaine-prilocaine 2.5 %-2.5 % 1 applic topical DIRECTED PRN 05/20/25 05/20/25 History topical cream PRIOR TO INJECTIONS lisdexamfetamine 30 mg capsule 30 mg PO DAILY 05/20/25 05/20/25 History (Vyvanse) lisdexamfetamine 40 mg capsule 40 mg PO DAILY 05/20/25 05/20/25 History (Vyvanse) losartan 25 mg tablet 25 mg PO DAILY 05/20/25 05/20/25 History multivitamin 1 tab PO DAILY 05/20/25 05/20/25 History ondansetron 4 mg disintegrating 4 mg PO Q8H PRN NAUSEA/VOMITING 05/20/25 05/20/25 History tablet prazosin 2 mg capsule 2 mg PO HS 05/20/25 05/20/25 History propranolol 80 mg capsule,extended 80 mg PO DAILY 05/20/25 05/20/25 History release 24 hr sodium chloride 0.65 % nasal spray 1 spray intranasal DIRECTED PRN 05/20/25 05/20/25 History aerosol (Saline Nasal) Congestion thiamine HCl (vitamin B1) 100 mg 100 mg PO DAILY 05/20/25 05/20/25 History tablet (Vitamin B-1) zaleplon 10 mg capsule 10 mg PO HS 05/20/25 05/20/25 History Past Med/Surg History Problem List (Updated 05/20/25 @ 18:41 by AMEE Enriquez) Tachycardia Bipolar 1 disorder Migraine TIA (transient ischemic attack) Social History Smoking Status: Current every day smoker Tobacco Type: Cigarettes Feels Safe at Home: Yes Review of Systems Review of Systems: All systems reviewed & are unremarkable except as noted in HPI & below Physical Exam Physical Exam: Please see physician addendum Results & Data Results & Data Vital Signs (Past 12 Hours) Vital Signs Temp Pulse Pulse Resp BP Pulse Ox O2 Del Method 05/20/25 17:55 136 H 14 147/114 H 96 Room Air 05/20/25 17:35 124 H 05/20/25 16:40 Room Air 05/20/25 16:27 36.9 C 120 H 16 95 Room Air Laboratory Results Laboratory Results WBC 14.12 K/ul (4.8-10.8) H 05/20/25 16:47 RBC 4.77 M/uL (4.20-5.40) 05/20/25 16:47 Hgb 14.6 g/dl (12.0-16.0) 05/20/25 16:47 POC Hgb 15.6 g/dl (12.0-16.0) 05/20/25 16:59 Hct 43.4 % (37.0-47.0) 05/20/25 16:47 POC Hct 46 % (37-47) 05/20/25 16:59 MCV 91.0 fL (80.0-100.0) 05/20/25 16:47 MCH 30.6 pg (25.0-34.0) 05/20/25 16:47 MCHC 33.6 g/dL (32.0-36.0) 05/20/25 16:47 RDW Std Deviation 42.7 fL (36.4-46.3) 05/20/25 16:47 RDW Coeff of Carmen 12.9 % (11.5-14.5) 05/20/25 16:47 Plt Count 220 K/uL (130-400) 05/20/25 16:47 MPV 10.0 fL (9.4-12.4) 05/20/25 16:47 Immature Gran % (Auto) 0.6 % 05/20/25 16:47 Neut % (Auto) 57.4 % 05/20/25 16:47 Lymph % (Auto) 32.4 % 05/20/25 16:47 Desha % (Auto) 6.6 % 05/20/25 16:47 Eos % (Auto) 2.2 % 05/20/25 16:47 Baso % (Auto) 0.8 % 05/20/25 16:47 Neut # (Auto) 8.10 K/uL (1.40-6.50) H 05/20/25 16:47 Lymph # (Auto) 4.57 K/uL (1.20-3.40) H 05/20/25 16:47 Desha # (Auto) 0.93 K/uL (0.11-0.59) H 05/20/25 16:47 Eos # (Auto) 0.31 K/uL (0.00-0.50) 05/20/25 16:47 Baso # (Auto) 0.12 K/uL (0.00-0.20) 05/20/25 16:47 Immature Gran # (Auto) 0.09 K/uL (0.01-0.20) 05/20/25 16:47 PT 11.4 Seconds (9.0-12.0) 05/20/25 16:47 INR 1.1 (0.9-1.1) 05/20/25 16:47 APTT 25 Seconds (21-31) 05/20/25 16:47 PTT Ratio 0.9 05/20/25 16:47 POC Sodium 138 mmol/L (135-144) 05/20/25 16:59 Sodium 136 mmol/L (136-145) 05/20/25 16:47 POC Potassium 3.4 mmol/L (3.3-5.0) 05/20/25 16:59 Potassium 3.4 mmol/L (3.5-5.1) L 05/20/25 16:47 POC Chloride 105 mmol/L (101-112) 05/20/25 16:59 Chloride 103 mmol/L (98-107) 05/20/25 16:47 Carbon Dioxide 19 mmol/L (21-32) L 05/20/25 16:47 POC Total CO2 20 mmol/L (24-31) L 05/20/25 16:59 Anion Gap 14 (3-11) H 05/20/25 16:47 POC Anion Gap 18.0 mmol/L (16-25) 05/20/25 16:59 POC BUN 10 mg/dl (7-18) 05/20/25 16:59 BUN 10 mg/dl (6-23) 05/20/25 16:47 Creatinine 0.69 mg/dl (0.6-1.2) 05/20/25 16:47 POC Creatinine 0.8 mg/dl (0.6-1.3) 05/20/25 16:59 Est Cr Clr Drug Dosing 125.8 ml/min 05/20/25 16:47 eGFR 114.56 05/20/25 16:47 BUN/Creatinine Ratio 14.5 (10-20) 05/20/25 16:47 Glucose 74 mg/dl (70-99(Fasting)) 05/20/25 16:47 POC Glucose 82 mg/dl (70-99) 05/20/25 16:44 POC Glucose (other) 80 mg/dl (70-99) 05/20/25 16:59 Calcium 9.2 mg/dl (8.6-10.3) 05/20/25 16:47 POC Ioniz Calcium Yany 1.14 mmol/l (1.12-1.32) 05/20/25 16:59 Magnesium 1.7 mg/dl (1.7-2.4) 05/20/25 16:47 Total Bilirubin 0.5 mg/dl (0.2-1.0) 05/20/25 16:47 AST 26 U/L (13-39) 05/20/25 16:47 ALT 23 U/L (7-52) 05/20/25 16:47 Alkaline Phosphatase 114 U/L (34-104) H 05/20/25 16:47 Troponin I High Sens 5.4 pg/ml (0-14) 05/20/25 16:47 Total Protein 7.7 gm/dl (6.0-8.3) 05/20/25 16:47 Albumin 4.2 gm/dl (3.4-5.0) 05/20/25 16:47 Globulin 3.5 gm/dl (2.5-4.0) 05/20/25 16:47 Albumin/Globulin Ratio 1.2 (0.9-2) 05/20/25 16:[address] 05/20/25 16:[address] without contrast CT angiogram of the neck CT angiogram of the brain with contrast Provided History: Neuro deficit Comparison: None Technique: HEAD CT: Using multidetector thin collimation helical acquisition technique, axial, coronal and sagittal CT images from the skull base to the vertex were obtained without intravenous contrast. HEAD and NECK CTA: During rapid bolus intravenous injection of nonionic contrast material, axial images were obtained using thin collimation multidetector helical technique from the base of the neck through the of vertex of the head. This CT angiogram data was reconstructed at thin intervals with mild overlap. 3D reconstructions were obtained. The axial source images, multiplanar reformations, 3D reconstructions in both maximum intensity projection display and volume rendered models were reviewed. Dose reduction techniques were achieved by using automatic exposure control and/or adjustment of mA and/or kV according to patient size and/or use of iterative reconstruction technique. Findings: Head CT: There is no intracranial hemorrhage, mass effect, or midline shift. Lucas/white matter differentiation in both cerebral hemispheres is preserved. Ventricles are proportionate to the cerebral sulci. Head CTA demonstrates no aneurysm or stenosis of the major intracranial arteries. Neck CTA demonstrates no stenosis of the major cervical arteries. The origins of the great vessels from the aortic arch are patent. No mass is noted within the visualized portions of the cervical soft tissues or lung apices. Impression: 1. Head CTA demonstrates no aneurysm or stenosis of the major intracranial arteries, 2. Neck CTA demonstrates no stenosis of the major cervical arteries. Tortuosity of the distal internal carotid arteries, may be seen with fibromuscular dysplasia. 3. No intracranial hemorrhage on the noncontrast head CT. Electronically signed by Zeferino Wilson 05-20-2025 4:55 PM Head CTA 05/20/25 16:[address] without contrast CT angiogram of the neck CT angiogram of the brain with contrast Provided History: Neuro deficit Comparison: None Technique: HEAD CT: Using multidetector thin collimation helical acquisition technique, axial, coronal and sagittal CT images from the skull base to the vertex were obtained without intravenous contrast. HEAD and NECK CTA: During rapid bolus intravenous injection of nonionic contrast material, axial images were obtained using thin collimation multidetector helical technique from the base of the neck through the of vertex of the head. This CT angiogram data was reconstructed at thin intervals with mild overlap. 3D reconstructions were obtained. The axial source images, multiplanar reformations, 3D reconstructions in both maximum intensity projection display and volume rendered models were reviewed. Dose reduction techniques were achieved by using automatic exposure control and/or adjustment of mA and/or kV according to patient size and/or use of iterative reconstruction technique. Findings: Head CT: There is no intracranial hemorrhage, mass effect, or midline shift. Lucas/white matter differentiation in both cerebral hemispheres is preserved. Ventricles are proportionate to the cerebral sulci. Head CTA demonstrates no aneurysm or stenosis of the major intracranial arteries. Neck CTA demonstrates no stenosis of the major cervical arteries. The origins of the great vessels from the aortic arch are patent. No mass is noted within the visualized portions of the cervical soft tissues or lung apices. Impression: 1. Head CTA demonstrates no aneurysm or stenosis of the major intracranial arteries, 2. Neck CTA demonstrates no stenosis of the major cervical arteries. Tortuosity of the distal internal carotid arteries, may be seen with fibromuscular dysplasia. 3. No intracranial hemorrhage on the noncontrast head CT. Electronically signed by Zeferino Wilson 05-20-2025 4:55 PM Neck CTA 05/20/25 16:[address] without contrast CT angiogram of the neck CT angiogram of the brain with contrast Provided History: Neuro deficit Comparison: None Technique: HEAD CT: Using multidetector thin collimation helical acquisition technique, axial, coronal and sagittal CT images from the skull base to the vertex were obtained without intravenous contrast. HEAD and NECK CTA: During rapid bolus intravenous injection of nonionic contrast material, axial images were obtained using thin collimation multidetector helical technique from the base of the neck through the of vertex of the head. This CT angiogram data was reconstructed at thin intervals with mild overlap. 3D reconstructions were obtained. The axial source images, multiplanar reformations, 3D reconstructions in both maximum intensity projection display and volume rendered models were reviewed. Dose reduction techniques were achieved by using automatic exposure control and/or adjustment of mA and/or kV according to patient size and/or use of iterative reconstruction technique. Findings: Head CT: There is no intracranial hemorrhage, mass effect, or midline shift. Lucas/white matter differentiation in both cerebral hemispheres is preserved. Ventricles are proportionate to the cerebral sulci. Head CTA demonstrates no aneurysm or stenosis of the major intracranial arteries. Neck CTA demonstrates no stenosis of the major cervical arteries. The origins of the great vessels from the aortic arch are patent. No mass is noted within the visualized portions of the cervical soft tissues or lung apices. Impression: 1. Head CTA demonstrates no aneurysm or stenosis of the major intracranial arteries, 2. Neck CTA demonstrates no stenosis of the major cervical arteries. Tortuosity of the distal internal carotid arteries, may be seen with fibromuscular dysplasia. 3. No intracranial hemorrhage on the noncontrast head CT. Electronically signed by Zeferino Wilson 05-20-2025 4:55 PM Supervising Physician Co-Signing Physician Notes Attending Addendum: Case reviewed with the advanced practitioner. I have personally performed a history and physical examination on the patient. I have reviewed the advanced practitioner's documentation on the date of service referenced in note, and I agree with, and take responsibility for the plan of care. please refer to her notes for full details patient seen and examined, records reviewed by myself as well on exam, patient seen resting in bed, sitting up not in distress still having frontal headache R sided weakness is about the same no other neurologic findings no other symptoms VS noted and reviewed oriented x 3 , not in distress, speaks in sentences with no effort nor accessory muscle use (+) dry oral mucosa tachycardic, regular rhythm, no murmurs clear breath sounds bilaterally non distended, soft, nontender no bipedal edema, erythema, warmth no neuro deficits all labs, imaging noted and reviewed ASSESSMENT AND PLAN> COMPLICATED MIGRAINE headache + right sided weakness CT head: no acute process no improvement with Compazine and Benadryl discussed with [facility] Neurologist Dr. Keshav Avila, recommend: Magnesium IV 1 g Reglan IV Benadryl IV Toradol IV Gabapentin 300mg BID IV fluids if without improvement tomorrow AM, can try Hydrocortisone 100mg Brain MRI w/o contrast other diagnoses and plan of care as per advanced practitioner's notes I spent a total of 40 minutes coordinating, documenting, and providing care for this patient, excluding time spent in the performance of separately billed services or time spent by another provider/QHP. Yoshi Corado MD
[2025-05-20] MEDS: METOCLOPRAMIDE HCL INJ 5 MG/ML 2 ML VIAL IV STA (19:19)
[2025-05-20] MEDS: diphenhydrAMINE 50 MG/ML VIAL IV STA (19:19)
[2025-05-20] MEDS: KETOROLAC TROMETHAMINE 15 MG/ML VIAL IV ONE (19:19)
[2025-05-20] MEDS: MAGNESIUM SULFATE / D5W 1 GM/100 ML BAG IV ONE (19:20)
[2025-05-20] MEDS ORDERED: ACETAMINOPHEN 325 MG TAB PO PRN (21:11)
[2025-05-20] MEDS ORDERED: PHARMACIST DISCHARGE MED REC CONSULT PRN (21:11)
[2025-05-20] MEDS: SODIUM CHLORIDE 0.9% 1,000 ML IV SCH (21:13)
[2025-05-20] MEDS: GABAPENTIN 300 MG CAP PO SCH (21:16)
[2025-05-20] MEDS: clonazePAM 1 MG TAB PO PRN (21:28)
[2025-05-20] MEDS: HEPARIN SOD 5,000 UNIT/0.5 ML VIAL SQ SCH (21:50)
[2025-05-20] MEDS: lamoTRIgine 100 MG TAB PO SCH (21:50)
[2025-05-20] MEDS: KETOROLAC TROMETHAMINE 15 MG/ML VIAL IV PRN (22:01)
[2025-05-20] MEDS: NICOTINE 14 MG/24 HR PATCH TD ONE (22:05)
[2025-05-20] MEDS: ZALEPLON 10 MG PO SCH (22:37)
[2025-05-20] MEDS: ACETAMINOPHEN 1,000 MG/100 ML VIAL IV STA (23:12)
[2025-05-21] MEDS: KETOROLAC TROMETHAMINE 15 MG/ML VIAL IV ONE ×2 (00:50→23:20)
--- NOTE | 2025-05-21 02:57 | CT Scan Report ---
EXAM: CT head/brain wo con CLINICAL HISTORY: worsening suárez, numbness. TECHNIQUE: Axial non-contrast CT scan of the brain was performed from the skull base to the high parietal region. One of the following dose reduction techniques were utilized for this exam: Automated exposure control, adjustment of the mA and/or kV according to patient size, use of iterative reconstruction. COMPARISON: 05/20/2025. FINDINGS: Brain Parenchyma: Normal attenuation of the cerebral hemispheres, cerebellum, and brainstem. No evidence of acute infarct, hemorrhage, or mass effect. No abnormal areas of hypo- or hyperattenuation. Ventricular System: Ventricles are normal in size and configuration. No evidence of hydrocephalus or ventricular enlargement. Subarachnoid Spaces: Normal sulci and cisterns. No evidence of subarachnoid hemorrhage or extra-axial fluid collections. Cerebellum and Brainstem: No masses, lesions, or areas of abnormal density. Orbits: Normal appearance of the globes, optic nerves, and extraocular muscles. No evidence of orbital masses or abnormal density. Sinuses: Clear paranasal sinuses. No evidence of sinusitis or mucosal thickening. Mastoid Air Cells: Clear mastoid air cells. No evidence of mastoiditis. Skull: Normal skull morphology. IMPRESSION: Normal CT of the head without contrast. No significant interval change compared to the prior study dated 05/20/2025. Electronically signed by Juan Alberto Esteban 05-21-2025 02:57 AM
[2025-05-21] MEDS: METOCLOPRAMIDE HCL INJ 5 MG/ML 2 ML VIAL IV PRN (04:27)
[2025-05-21 06:14] LABS: Hematocrit (blood only) 43.8 % (37.0-47.0); Hemoglobin 14.3 g/dl (12.0-16.0); Immature Granulocytes # (auto) 0.09 K/uL (0.01-0.20); Immature Granulocytes % (auto) 0.8 %; Mean Corpuscular Hemoglobin 30.4 pg (25.0-34.0); Mean Corpuscular Volume 93.0 fL (80.0-100.0); Platelet Count 213 K/uL (130-400); RDW Standard Deviation 44.5 fL (36.4-46.3); Red Blood Count 4.71 M/uL (4.20-5.40); White Blood Count 10.74 K/ul (4.8-10.8)
[2025-05-21 06:36] LABS: Anion Gap 8.0 (3-11); Blood Urea Nitrogen 12.0 mg/dl (6-23); Calcium 9.1 mg/dl (8.6-10.3); Carbon Dioxide 23.0 mmol/L (21-32); Chloride 104.0 mmol/L (98-107); Cholesterol 210.0 mg/dl (0-200); Creatinine Clr Calc Pharmacy 112.5 ml/min; Glucose 82.0 mg/dl (70-99(Fasting)); HDL Cholesterol 48.0 mg/dl; Potassium 3.9 mmol/L (3.5-5.1); Sodium 135.0 mmol/L (136-145); Triglycerides 296.0 mg/dl (0-150)
[2025-05-21 07:49] LABS: Hemoglobin A1C 4.7 % (4.5-5.6)
[2025-05-21] MEDS: HYDROmorphone INJ 0.5 MG/0.5 ML SYR IV STA (08:53)
[2025-05-21] MEDS: REMOVE NICODERM PATCH SCH (08:53)
[2025-05-21] MEDS: NICOTINE 14 MG/24 HR PATCH TD SCH (08:54)
[2025-05-21] MEDS: FOLIC ACID 400 MCG TAB PO SCH (08:55)
[2025-05-21] MEDS: ATORVASTATIN 40 MG TAB PO SCH (08:56)
[2025-05-21] MEDS: CARIPRAZINE HCL 3 MG CAP PO SCH (08:56)
[2025-05-21] MEDS: THIAMINE HCL 100 MG TAB PO SCH (08:56)
[2025-05-21] MEDS: METOCLOPRAMIDE HCL INJ 5 MG/ML 2 ML VIAL IV SCH (09:29)
[2025-05-21] MEDS: VALPROATE SOD 500 MG in DEXTROSE 5% 50 ML IV SCH (09:29)
[2025-05-21] MEDS: dexAMETHasone 10 MG in SYRINGE 0 ML IV SCH (09:30)
[2025-05-21] MEDS: LORazepam Inj 1 MG in SYRINGE 0.5 ML IV SCH (11:19)
--- NOTE | 2025-05-21 11:58 | Electrocardiogram Report ---
Test Reason : Blood Pressure : */* mmHG Vent. Rate : 115 BPM Atrial Rate : 115 BPM P-R Int : 148 ms QRS Dur : 96 ms QT Int : 336 ms P-R-T Axes : 50 -2 39 degrees QTcB Int : 464 ms Sinus tachycardia Possible Left atrial enlargement Incomplete right bundle branch block Possible Anterior infarct , age undetermined Abnormal ECG No previous ECGs available Confirmed by Tucker Knight ([id number]) on 05/21/2025 11:57:48 AM Referred By: REFERRED SELF Confirmed By: Tucker Knight
--- NOTE | 2025-05-21 12:02 | Electrocardiogram Report ---
Test Reason : Blood Pressure : */* mmHG Vent. Rate : 76 BPM Atrial Rate : 76 BPM P-R Int : 158 ms QRS Dur : 102 ms QT Int : 404 ms P-R-T Axes : 60 9 43 degrees QTcB Int : 454 ms Normal sinus rhythm Normal ECG When compared with ECG of 20-May-2025 19:27, (unconfirmed) Vent. rate has decreased by 39 bpm Incomplete right bundle branch block is no longer Present Confirmed by Tucker Knight ([id number]) on 05/21/2025 12:02:06 PM Referred By: REFERRED SELF Confirmed By: Tucker Knight
--- NOTE | 2025-05-21 12:32 | XCELERA ---
[id number]
--- NOTE | 2025-05-21 13:05 | Magnetic Resonance Report ---
EXAM: MR brain wo con CLINICAL HISTORY: Tia/cva. TECHNIQUE: MRI of the brain was performed without contrast, with multiplanar sequences obtained. COMPARISON: Prior CT dated 05/21/2025 was reviewed. FINDINGS: Brain Parenchyma: There is no evidence of acute infarction or hemorrhage. A small focus of altered MRI signal is seen in the right parietal subcortical white matter, displaying bright FLAIR and T2 signal, inconspicuous on T1, with no restriction. There is normal goncalves-white matter differentiation. No mass lesions or focal cortical abnormalities are identified. Ventricles and Sulci: There is a normal size and configuration of the lateral ventricles, the third ventricle, and the fourth ventricle. No evidence of hydrocephalus or ventriculomegaly is present. Sylvian fissures, sulci, and cisterns are mildly prominent for age. Posterior Fossa: The cerebellum and brainstem appear normal without evidence of mass lesions or signal abnormalities. Cranial Nerves: There is a normal course and appearance of the cranial nerves identified. Vessels: No evidence of vascular malformations or aneurysms is seen. Intracranial arteries and veins appear normal, without evidence of stenosis or occlusion. Orbits and Skull Base: The orbits and skull base structures are normal without evidence of abnormalities. IMPRESSION: MRI of the brain: 1. No acute intracranial abnormality is identified. 2. A right parietal subcortical white matter focus of abnormal signal; possibilities include a chronic ischemic focus, migraine-related change, or nonspecific in nature. 3. Normal appearance of the ventricular system, posterior fossa, cranial nerves, vessels, orbits, and skull base. Electronically signed by Juan Alberto Esteban 05-21-2025 13:05 PM
[2025-05-21] MEDS: LOSARTAN POTASSIUM 25 MG TAB PO SCH (14:02)
[2025-05-21] MEDS: PROPRANOLOL HCL LA 80 MG CAPCR PO SCH (14:02)
[2025-05-21] MEDS ORDERED: ONDANSETRON INJ 2 MG/ML 2 ML VIAL IV PRN (14:52)
--- NOTE | 2025-05-21 15:07 | Hospitalist Progress Note ---
Date of Service May 21, 2025 Assessment & Plan (1) Hypertensive urgency: (2) Headache, hemiplegic migraine, intractable: (3) Bipolar 1 disorder: Plan Patient initially admitted for concern for TIA. This has been ruled out. MRI does not show any acute ischemic event. Potentially chronic ischemia versus migraine changes. This morning felt patient's presentation was more consistent with a hemiplegic complex migraine, has not responded to usual migraine therapy. This afternoon patient's blood pressures remained elevated despite her usual antihypertensive medications. Concern for hypertensive urgency that is symptomatic and evidence of end-stage organ disease as evidence on MRI. Continue with propranolol, add IV Lopressor for better blood pressure control as well as heart rate control, may need to adjust propranolol dose. Will reevaluate in a.m. Discontinue losartan, and replace with valsartan which is a more effective antihypertensive medication Continue to monitor on telemetry Will discontinue migraine cocktail at this time, Decadron can certainly make the blood pressure higher. She had not responded to that therapy anyway. Suspect headache may improve as her blood pressure improves Monitor electrolytes and renal function in a.m. Neurology consultation pending Admission and Anticipated Discharge Date Admission Date: May 20, 2025 Subjective Patient seen throughout the day. This morning complaining still of some paresthesias of her right side of her face and upper body, also complaining of significant headache that is consistent with her usual migraine.. Patient reevaluated in the afternoon after MRI, continues to complain of a severe headache. Patient continues to be hypertensive. Noted that her blood pressure medicines held at the time of admission most likely due to allow for permissive hypertension. Patient was given all of her blood pressure medications this afternoon and remains hypertensive. On further history, patient states that when her symptoms started she noticed that her blood pressure was significantly elevated. Urgent care got a blood pressure that was significantly elevated and was who told her to go to the emergency department. Initial blood pressures in ED were elevated, however then significantly improved. Blood pressure started to increase again overnight. Physical Exam Physical Exam: Constitutional: Alert nontoxic HEENT: Mucous membranes moist. Lungs: Clear to auscultation, decreased, no wheezes rales or rhonchi CV: S1-S2, regular Abdomen: Soft, nontender, nondistended Extremities: No significant edema Neuro: Cannot appreciate facial droop, speech is clear, gait is slow but not ataxic, paresthesias right face and upper extremity Psych: Cooperative, normal mood Results & Data Results & Data Vital Signs (Past 12 Hours) Vital Signs Temp Pulse Pulse Pulse Resp BP Pulse Ox 05/21/25 14:00 109 H 150/103 H 05/21/25 12:18 36.7 C 105 H 16 168/118 H 98 05/21/25 07:15 05/21/25 07:02 36.5 C 77 21 185/122 H 94 05/21/25 06:25 72 05/21/25 03:11 36.6 C 81 18 148/108 H 96 O2 Del Method 05/21/25 14:00 05/21/25 12:18 Room Air 05/21/25 07:15 Room Air 05/21/25 07:02 Room Air 05/21/25 06:25 05/21/25 03:11 Room Air Diagnostic Findings Reviewed imaging, laboratory and diagnostic studies. Pertinent findings as below. CBC stable Electrolytes stable Creatinine 0.76 Hemoglobin A1c 4.7% Triglycerides 296 Cholesterol 210 LDL 103 MRI of the brain: noted some right parietal subcortical white matter abnormal signal that could be chronic ischemic focus versus migraine related changes versus nonspecific. Otherwise no other acute intracranial abnormalities were noted
[2025-05-21] MEDS: METOPROLOL TARTRATE 1 MG/ML VIAL IV SCH (15:23)
[2025-05-21] MEDS: VALSARTAN 80 MG TAB PO SCH (15:40)
[2025-05-21] MEDS ORDERED: STAT IV Infusion **Titration per Protocol STA (15:59)
[2025-05-21] MEDS: PROPRANOLOL HCL 20 MG TAB PO SCH (17:52)
[2025-05-21] MEDS: clonazePAM 1 MG TAB PO PRN (18:24)
[2025-05-21] MEDS: PRAZOSIN HCL 1 MG CAP PO SCH (20:33)
[2025-05-21] MEDS ORDERED: PROPRANOLOL HCL 20 MG TAB PO SCH (21:00)
[2025-05-21] MEDS: ACETAMINOPHEN 1,000 MG/100 ML VIAL IV STA (22:14)
[2025-05-22] MEDS: diphenhydrAMINE Capsule 25 MG CAP PO ONE (03:17)
[2025-05-22 06:41] LABS: Hematocrit (blood only) 43.6 % (37.0-47.0); Hemoglobin 15.4 g/dl (12.0-16.0); Immature Granulocytes # (auto) 0.10 K/uL (0.01-0.20); Immature Granulocytes % (auto) 0.8 %; Mean Corpuscular Hemoglobin 32.2 pg (25.0-34.0); Mean Corpuscular Volume 91.0 fL (80.0-100.0); Platelet Count 215 K/uL (130-400); RDW Standard Deviation 40.9 fL (36.4-46.3); Red Blood Count 4.79 M/uL (4.20-5.40); White Blood Count 11.96 K/ul (4.8-10.8)
[2025-05-22 06:59] LABS: Anion Gap 10.0 (3-11); Blood Urea Nitrogen 14.0 mg/dl (6-23); Calcium 9.7 mg/dl (8.6-10.3); Carbon Dioxide 23.0 mmol/L (21-32); Chloride 102.0 mmol/L (98-107); Creatinine Clr Calc Pharmacy 115.6 ml/min; Glucose 107.0 mg/dl (70-99(Fasting)); Potassium 4.0 mmol/L (3.5-5.1); Sodium 135.0 mmol/L (136-145)
[2025-05-22] MEDS: PROPRANOLOL HCL 60 MG LA CAP PO SCH (10:58)
[2025-05-22 11:09] VITALS: RESP 18; TEMP 97.5; O2SAT 92
[2025-05-22 11:39] VITALS: BP 147/95
--- NOTE | 2025-05-22 11:47 | Discharge Summary ---
Discharge Summary Date of Service May 22, 2025 Principal Dx & Hospital Course #1 = Principal Diagnosis (1) Hypertensive urgency: (2) Headache, hemiplegic migraine, intractable: (3) Polysubstance dependence including opioid type drug with complication, episodic abuse: (4) Alcohol dependence with alcohol-induced mood disorder: (5) Polypharmacy: (6) Bipolar 1 disorder: Plan Patient 39-year-old female with history of multiple psychiatric diagnoses as well as history of alcohol misuse presented to the emergency room with intractable headache and complaints of paresthesias on the right side of her face and upper extremities and a facial droop. In the emergency room patient was noted to be quite hypertensive. She was worked up for acute stroke. Initial imaging was unremarkable. Patient was admitted to monitored floor. She continued with severe cephalgia. Patient reports that she does have a history of complex migraines with neurological symptoms in the past. MRI of the brain was negative for acute ischemic event however her blood pressure continue to fluctuate and at times extremely elevated. She states that previously her migraine was aborted with a single dose of Dilaudid. This was attempted however was ineffective. Also attempted to several different migraine cocktails, all of these were ineffective. Her blood pressure continue to be quite uncontrolled despite dosing her with her oral medications. She was started on a Cardene drip almost immediately her blood pressure became significantly improved. Her propranolol dosing was increased and her blood pressure stayed controlled. Her losartan was also switched to valsartan which showed much improved of management of her blood pressure. Discussed with the patient multiple times had a concern that she may be withdrawing from medication that is prescribed or illicit drugs. She also then admitted to drinking 3-4 large glasses of wine about every other day. She denied any illicit drug use other than marijuana. She is prescribed benzodiazepines and medication for ADHD which would be positive for amphetamines on urine drug screen. Again reviewing the patient's condition highly suspicious that she is either withdrawing from some of her medications that need to be prescribed or has overdosed. Discussed this with the patient she denies taking in any additional medicines. She says sometimes she skips her vitamin A's. She also states that she has not been sleeping well for several nights this may indicate an exacerbation of her bipolar disorder. On the morning of discharge her blood pressure is much better controlled. Still complaining of cephalgia but willing to go home. She assures me that she has follow-up appointments with her psychiatrist and neurologist in the next coming weeks which I encouraged her to continue to discuss with them and appropriate management of her chronic issues and see if there is any way they can reduce some of her polypharmacy. I reassured the patient has been ruled out for acute life-threatening events that need hospital level care. She was ruled out for acute stroke. Blood pressure is controlled. There was no significant arrhythmias seen on telemetry monitoring. Echocardiogram was performed which showed normal ejection fraction without any significant valvular or wall motion abnormalities. I reassured her that she could continue to pursue her care as an outpatient. Notes For Next Care Provider Medication Changes From Visit Propranolol LA increased to 120 mg daily Losartan switched to valsartan Admission HPI Per Admitting Provider The patient is a 39-year-old female with a past medical history of bipolar, anxiety, seizure, alcoholism, TIA, complex migraines, HTN who presents to the ED on 05/20/25 after she was sent in by urgent care provider due to concerns of possible stroke. Reported her symptoms started around 11 AM with right sided weakness of her upper and lower extremity and also right sided facial droop. Patient reported her headache started this morning prior to the right sided weakness. Reports her headaches normally start in the center of her forehead right behind her eyes. She went to urgent care first and was directed to come to the ER. Arrived at the ER at 430 and a stroke alert was called. Per ER provider, more suspicious for functional migraine but recommended a full stroke workup. She denies any shortness of breath/chest pain/fever/chills/recent respiratory illness. It was also noted that the patient was tachycardic in the [id number] on arrival to the ED Patient was seen 2 days ago in the ED for concern for anaphylactic allergic reaction At that time, PE was ruled out, she was provided IV fluids with no improvement in heart rate On arrival to the ED, labs remarkable for WBC 14, potassium 3.4, bicarb 18, anion gap [address]/head/neck CTA unremarkable Received Benadryl in the ED without any improvement in her headache. She will be admitted for further management Admission Exam Per Admitting Provider See H&P Discharge Exam Constitutional: Alert HEENT: Mucous membranes moist. Lungs: Clear to auscultation, decreased, no wheezes rales or rhonchi CV: S1-S2, regular Abdomen: Soft, nontender, nondistended Extremities: No significant edema Neuro: No objective focal deficits on exam, patient continues to subjectively report some numbness and tingling on the right side of her face and upper extremity. Psych: Cooperative, normal mood Updated Medication List Medication Instructions Recorded Confirmed Type prazosin 1 mg capsule 1 mg PO HS 10/14/24 03/07/25 History rizatriptan 10 mg tablet 10 mg PO UD PRN Migraine Headache 10/14/24 03/07/25 History acetaminophen 500 mg tablet 500 mg PO Q6H PRN Pain 01/10/25 03/07/25 History famotidine 10 mg tablet (Pepcid AC) 10 mg PO DAILY 01/10/25 03/07/25 History vit no.95-ferrous 1 tab PO DAILY 01/10/25 03/07/25 History fumarate 28 mg-folic acid 800 mcg tablet () fluticasone propionate 50 1 spray intranasal BID PRN Allergy 05/18/25 05/18/25 History mcg/actuation nasal Symptoms spray,suspension galcanezumab-gnlm 120 mg/mL 120 mg subcut MONTHLY 05/18/25 05/18/25 History subcutaneous pen injector (Emgality Pen) lasmiditan 100 mg tablet (Reyvow) 100 mg PO DIRECTED PRN Migraine 05/18/25 05/18/25 History Headache losartan 25 mg tablet 25 mg PO DAILY 05/18/25 05/18/25 History pantoprazole 40 mg tablet,delayed 40 mg PO DAILY 05/18/25 05/18/25 History release albuterol sulfate 90 mcg/actuation 2 puff inhalation Q4H PRN 05/20/25 05/20/25 History aerosol inhaler Shortness Of Breath Or Wheezing cariprazine 3 mg capsule (Vraylar) 3 mg PO DAILY 05/20/25 05/20/25 History cetirizine 10 mg tablet (Zyrtec) 10 mg PO DAILY 05/20/25 05/20/25 History clonazepam 1 mg tablet 1 mg PO DAILY PRN NEEDED 05/20/25 05/20/25 History epinephrine 0.3 mg/0.3 mL 0.3 mg IM DIRECTED PRN Allergic 05/20/25 05/20/25 History injection, auto-injector (EpiPen) Reaction fluticasone propionate 50 2 spray intranasal HS 05/20/25 05/20/25 History mcg/actuation nasal spray,suspension folic acid 400 mcg tablet 0.4 mg PO DAILY 05/20/25 05/20/25 History lamotrigine 100 mg tablet 100 mg PO BID 05/20/25 05/20/25 History (Lamictal) lasmiditan 100 mg tablet 100 mg PO DIRECTED PRN SEVERE 05/20/25 05/20/25 History HEADACHES lidocaine-prilocaine 2.5 %-2.5 % 1 applic topical DIRECTED PRN 05/20/25 05/20/25 History topical cream PRIOR TO INJECTIONS lisdexamfetamine 30 mg capsule 30 mg PO DAILY 05/20/25 05/20/25 History (Vyvanse) lisdexamfetamine 40 mg capsule 40 mg PO DAILY 05/20/25 05/20/25 History (Vyvanse) ondansetron 4 mg disintegrating 4 mg PO Q8H PRN NAUSEA/VOMITING 05/20/25 05/20/25 History tablet sodium chloride 0.65 % nasal spray 1 spray intranasal DIRECTED PRN 05/20/25 05/20/25 History aerosol (Saline Nasal) Congestion thiamine HCl (vitamin B1) 100 mg 100 mg PO DAILY 05/20/25 05/20/25 History tablet (Vitamin B-1) zaleplon 10 mg capsule 10 mg PO HS 05/20/25 05/20/25 History amlodipine 10 mg tablet 10 mg PO DAILY #30 tabs 05/22/25 Rx atorvastatin 40 mg tablet 40 mg PO QAM #30 tabs 05/22/25 Rx ibuprofen 200 mg tablet 400 mg (2 x 200 mg) PO Q6H PRN 05/22/25 05/20/25 Rx Pain #0 tabs prazosin 2 mg capsule 2 mg PO HS #30 caps 05/22/25 Rx propranolol 60 mg capsule,24 120 mg (2 x 60 mg) PO QAM #30 caps 05/22/25 Rx hr,extended release valsartan 80 mg tablet (Diovan) 160 mg (2 x 80 mg) PO QAM #30 tabs 05/22/25 Rx Hospital Stay Data Consultations 05/20/25 19:10 ED Decision to Admit Stat 05/20/25 21:11 Consult Neurology Routine Diagnostic Imagining Performed 05/20/25 16:26 CT angio head w con Stat CT angio neck with con Stat CT head/brain wo con Stat 05/21/25 01:31 CT head/brain wo con Stat 05/21/25 09:30 MR brain wo con Routine Reviewed imaging, laboratory and diagnostic studies. Pertinent findings as below. WBCs 11.9, increased due to steroids Hemoglobin 15.4 Platelets of 215 Electrolytes stable or within normal limits Creatinine 0.74 MRI of the brain showed a small focus of altered signal in the right parietal subcortical white matter this could be due to chronic ischemic changes versus migraine related changes. Otherwise no acute intracranial abnormalities. Normal appearance of the ventricular system. Echocardiogram showed ejection fraction of 55 to 60%. No dilated chambers, no significant valvular abnormalities. No PFO or ASD. EKG showed sinus tachycardia with incomplete right bundle branch block. Incomplete right bundle branch block comes and goes with patient's rate. Pending Results Patient Have Any Pending Studies at Discharge: No Discharge Instructions Given to Patient (Per Discharging Provider) Strongly recommend you decrease your alcohol intake in half or eliminate completely Recommend you discuss your multiple medications with your neurologist and how they may be contributing to some of your symptoms Strongly recommend you stop smoking Total Time Total Time Spent Total Time Spent (In Minutes): 43
[2025-05-22 12:07] VITALS: PULSE 86
--- NOTE | 2025-05-22 15:10 | Electrocardiogram Report ---
Test Reason : Blood Pressure : */* mmHG Vent. Rate : 82 BPM Atrial Rate : 82 BPM P-R Int : 176 ms QRS Dur : 104 ms QT Int : 402 ms P-R-T Axes : 35 2 32 degrees QTcB Int : 469 ms Normal sinus rhythm Normal ECG When compared with ECG of 21-May-2025 05:25, No significant change was found Confirmed by Tucker Knight ([id number]) on 05/22/2025 3:10:30 PM Referred By: REFERRED SELF Confirmed By: Tucker Knight
== END 2025-05-22 12:11 | disposition home or self-care (01) | DRG 305 ==
LOC: MERGE 18:34 → SUATTDRO 18:34 → 4W 18:34

== ENCOUNTER 2025-06-01 18:49 | Inpatient (IN) ==
[2025-06-01 19:48] LABS: Hematocrit (blood only) 47.4 % (37.0-47.0); Hemoglobin 15.9 g/dl (12.0-16.0); Immature Granulocytes # (auto) 1.35 K/uL (0.01-0.20); Immature Granulocytes % (auto) 4.2 %; Mean Corpuscular Hemoglobin 30.5 pg (25.0-34.0); Mean Corpuscular Volume 91.0 fL (80.0-100.0); Platelet Count 399 K/uL (130-400); RDW Standard Deviation 42.6 fL (36.4-46.3); Red Blood Count 5.21 M/uL (4.20-5.40)
[2025-06-01 19:51] LABS: Pregnancy Test, Serum Negative (Negative)
[2025-06-01 19:52] LABS: Alanine Aminotransferase 61 U/L (7-52); Albumin Globulin Ratio 1.2 (0.9-2); Albumin Level 4.5 gm/dl (3.4-5.0); Alkaline Phosphatase 101 U/L (34-104); Anion Gap 10 (3-11); Bilirubin,Total 0.4 mg/dl (0.2-1.0); Blood Urea Nitrogen 12 mg/dl (6-23); Calcium 9.7 mg/dl (8.6-10.3); Carbon Dioxide 20 mmol/L (21-32); Chloride 108 mmol/L (98-107); Creatine Kinase 24 U/L (26-192); Globulin 3.9 gm/dl (2.5-4.0); Glucose 78 mg/dl (70-99(Fasting)); Lipase 47 U/L (11-82); Magnesium 2.0 mg/dl (1.7-2.4); Sodium 138 mmol/L (136-145); Total Protein 8.4 gm/dl (6.0-8.3)
[2025-06-01 19:53] LABS: White Blood Count 32.21 K/ul (4.8-10.8)
[2025-06-01 20:10] LABS: Thyroid Stimulating Hormone 8.790 uIu/ml (0.300-4.500)
[2025-06-01 20:13] LABS: INR 1.1 (0.9-1.1); Prothrombin Time 11.3 Seconds (9.0-12.0)
[2025-06-01] MEDS: OPTIRAY 320 125ml IV ONE (20:17)
[2025-06-01 20:27] LABS: Potassium 3.9 mmol/L (3.5-5.1)
[2025-06-01 20:50] LABS: T4 Free Thyroxine 0.79 ng/dl (0.61-1.60)
--- NOTE | 2025-06-01 20:58 | XRay Report ---
Exam(s): XR CXR 1 VIEW EXAM: XR Chest, 1 View CLINICAL HISTORY: Reason for exam: syncope. TECHNIQUE: Frontal view of the chest. COMPARISON: Prior chest x-ray from May 18, 2025. FINDINGS: Lungs: Mild to moderate peribronchial thickening of the central lower lobe bronchi with the silk opacity in the right lower lobe. Lung volumes limiting evaluation of the lung bases. Pleural space: Unremarkable. No pneumothorax. Heart: Unremarkable. No cardiomegaly. Mediastinum: Unremarkable. Normal mediastinal contour. Bones/joints: Unremarkable. No acute fracture. IMPRESSION: Bronchitis with small right lower lobe infiltrate. Communications: Verify Receipt Electronically signed by: Olga Lidia Gan MD 06/01/25 20:57 PM
--- NOTE | 2025-06-01 21:03 | CT Scan Report ---
Exam(s): CT HEAD Without Contrast EXAM: CT Head Without Intravenous Contrast CLINICAL HISTORY: Reason for exam: fall. TECHNIQUE: Axial computed tomography images of the head/brain without intravenous contrast. CTDI is 36 mGy and DLP is 832 mGy-cm. Automated exposure control was utilized for the study. A dose lowering technique was utilized adhering to the principles of ALARA. COMPARISON: Prior brain MRI from June 01, 2025. FINDINGS: Brain: Unremarkable. No hemorrhage. No significant white matter disease. No edema. Ventricles: Unremarkable. No ventriculomegaly. Bones/joints: Unremarkable. No acute fracture. Soft tissues: Unremarkable. Sinuses: Unremarkable as visualized. No acute sinusitis. Mastoid air cells: Unremarkable as visualized. No mastoid effusion. IMPRESSION: No evidence of acute intracranial pathology. Electronically signed by: Olga Lidia Gan MD 06/01/25 21:03 PM
--- NOTE | 2025-06-01 21:06 | CT Scan Report ---
Exam(s): CTA CHEST IV Amt: 118 cc [id number] EXAM: CT Angiography Chest With Intravenous Contrast CLINICAL HISTORY: Reason for exam: PE. TECHNIQUE: Axial computed tomographic angiography images of the chest with intravenous contrast. CTDI is 36 mGy and DLP is 832 mGy-cm. Automated exposure control was utilized for the study. A dose lowering technique was utilized adhering to the principles of ALARA. MIP reconstructed images were created and reviewed. COMPARISON: 10/07/2023 FINDINGS: Pulmonary arteries: Suboptimal pulmonary artery opacification, limiting assessment. No evidence of pulmonary embolism as visualized. Aorta: No aortic aneurysm or dissection. Lungs: No mass. No consolidation. Pleural space: No significant pleural effusion. No pneumothorax. Heart: No cardiomegaly. No significant pericardial effusion. Bones/joints: No acute fracture. No dislocation. Soft tissues: Unremarkable. Lymph nodes: No enlarged lymph nodes. Liver: Hepatomegaly. IMPRESSION: Suboptimal pulmonary artery opacification, limiting assessment. No evidence of pulmonary embolism as visualized. Electronically signed by: Gabe Plascencia M.D. 06/01/25 21:05 PM
--- NOTE | 2025-06-01 21:11 | CT Scan Report ---
Exam(s): CTA HEAD With Contrast IV Amt: 118 cc [id number] EXAM: CT Angiography Head With Intravenous Contrast CLINICAL HISTORY: Reason for exam: recent venous thrombus; headache. TECHNIQUE: Axial computed tomographic angiography images of the head with intravenous contrast. CTDI is 36 mGy and DLP is 832 mGy-cm. Automated exposure control was utilized for the study. A dose lowering technique was utilized adhering to the principles of ALARA. MIP reconstructed images were created and reviewed. CONTRAST: Patient received 118 cc [id number] of IV contrast COMPARISON: No relevant prior studies available. FINDINGS: The dural venous sinuses are patent. Right internal carotid artery: No acute findings. Intracranial segment is patent with no significant stenosis. No aneurysm. Right anterior cerebral artery: Unremarkable. No occlusion or significant stenosis. No aneurysm. Right middle cerebral artery: Unremarkable. No occlusion or significant stenosis. No aneurysm. Right posterior cerebral artery: Unremarkable. No occlusion or significant stenosis. No aneurysm. Right vertebral artery: Unremarkable as visualized. Left internal carotid artery: No acute findings. Intracranial segment is patent with no significant stenosis. No aneurysm. Left anterior cerebral artery: Unremarkable. No occlusion or significant stenosis. No aneurysm. Left middle cerebral artery: Unremarkable. No occlusion or significant stenosis. No aneurysm. Left posterior cerebral artery: Unremarkable. No occlusion or significant stenosis. No aneurysm. Left vertebral artery: Unremarkable as visualized. Basilar artery: Unremarkable. No occlusion or significant stenosis. No aneurysm. IMPRESSION: Negative CT angiogram of the head. Electronically signed by: Olga Lidia Gan MD 06/01/25 21:10 PM
--- NOTE | 2025-06-01 21:15 | Emergency Department Note ---
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 Ventricles: Unremarkable. No ventriculomegaly. Bones/joints: Unremarkable. No acute fracture. Soft tissues: Unremarkable. Sinuses: Unremarkable as visualized. No acute sinusitis. Mastoid air cells: Unremarkable as visualized. No mastoid effusion. IMPRESSION: No evidence of acute intracranial pathology. Electronically signed by: Olga Lidia Gan MD 06/01/25 21:03 PM Head CTA 06/01/25 19:14 Exam(s): CTA HEAD With Contrast IV Amt: 118 cc [id number] EXAM: CT Angiography Head With Intravenous Contrast CLINICAL HISTORY: Reason for exam: recent venous thrombus; headache. TECHNIQUE: Axial computed tomographic angiography images of the head with intravenous contrast. CTDI is 36 mGy and DLP is 832 mGy-cm. Automated exposure control was utilized for the study. A dose lowering technique was utilized adhering to the principles of ALARA. MIP reconstructed images were created and reviewed. CONTRAST: Patient received 118 cc [id number] of IV contrast COMPARISON: No relevant prior studies available. FINDINGS: The dural venous sinuses are patent. Right internal carotid artery: No acute findings. Intracranial segment is patent with no significant stenosis. No aneurysm. Right anterior cerebral artery: Unremarkable. No occlusion or significant stenosis. No aneurysm. Right middle cerebral artery: Unremarkable. No occlusion or significant stenosis. No aneurysm. Right posterior cerebral artery: Unremarkable. No occlusion or significant stenosis. No aneurysm. Right vertebral artery: Unremarkable as visualized. Left internal carotid artery: No acute findings. Intracranial segment is patent with no significant stenosis. No aneurysm. Left anterior cerebral artery: Unremarkable. No occlusion or significant stenosis. No aneurysm. Left middle cerebral artery: Unremarkable. No occlusion or significant stenosis. No aneurysm. Left posterior cerebral artery: Unremarkable. No occlusion or significant stenosis. No aneurysm. Left vertebral artery: Unremarkable as visualized. Basilar artery: Unremarkable. No occlusion or significant stenosis. No aneurysm. IMPRESSION: Negative CT angiogram of the head. Electronically signed by: Olga Lidia Gan MD 06/01/25 21:10 PM Chest X-Ray 06/01/25 19:42 CR Exam(s): XR CXR 1 VIEW EXAM: XR Chest, 1 View CLINICAL HISTORY: Reason for exam: syncope. TECHNIQUE: Frontal view of the chest. COMPARISON: Prior chest x-ray from May 18, 2025. FINDINGS: Lungs: Mild to moderate peribronchial thickening of the central lower lobe bronchi with the silk opacity in the right lower lobe. Lung volumes limiting evaluation of the lung bases. Pleural space: Unremarkable. No pneumothorax. Heart: Unremarkable. No cardiomegaly. Mediastinum: Unremarkable. Normal mediastinal contour. Bones/joints: Unremarkable. No acute fracture. IMPRESSION: Bronchitis with small right lower lobe infiltrate. Communications: Verify Receipt Electronically signed by: Olga Lidia Gan MD 06/01/25 20:57 PM Discharge Plan Visit Data Chief Complaint: Fall Stated Complaint: INJURY ALERT ED Provider: Candis Del Valle Discharge Problem: Headache, Sepsis, Recurrent falls, Pneumonia Condition: Fair Forms Stand Alone Forms: [facility] Prescriptions Prescriptions: No Action prazosin 1 mg capsule 1 mg PO HS rizatriptan 10 mg tablet 10 mg PO UD PRN (Reason: Migraine Headache) Rx Instructions: 10mg prn onset of migraine headache.May repeat dose at 2 hours if needed No more than 2 in 24 hours or 12 in 1 month famotidine [Pepcid AC] 10 mg Tablet 10 mg PO DAILY acetaminophen 500 mg Tablet 500 mg PO Q6H PRN (Reason: Pain) PNV no.95-ferrous fumarate-FA [] 28 mg iron- 800 mcg Tablet 1 tab PO DAILY pantoprazole 40 mg tablet,delayed release (DR/EC) 40 mg PO DAILY losartan 25 mg tablet 25 mg PO DAILY fluticasone propionate 50 mcg/actuation spray,suspension 1 spray INTRANASAL BID PRN (Reason: Allergy Symptoms) Emgality Pen 120 mg/mL pen injector 120 mg SUBCUT MONTHLY Rx Instructions: 16 OF EVERY MONTH [place] 100 mg tablet 100 mg PO DIRECTED PRN (Reason: Migraine Headache) cetirizine [Zyrtec] 10 mg Tablet 10 mg PO DAILY clonazepam 1 mg Tablet 1 mg PO DAILY PRN (Reason: NEEDED) thiamine HCl (vitamin B1) [Vitamin B-1] 100 mg Tablet 100 mg PO DAILY folic acid 400 mcg Tablet 0.4 mg PO DAILY lidocaine-prilocaine 2.5-2.5 % Cream 1 applic topical DIRECTED PRN (Reason: PRIOR TO INJECTIONS) zaleplon 10 mg Capsule 10 mg PO HS Rx Instructions: must avoid high-fat meal/food immediately before taking dose epinephrine [EpiPen] 0.3 mg/0.3 mL Auto-Injector 0.3 mg IM DIRECTED PRN (Reason: Allergic Reaction) albuterol sulfate 90 mcg/actuation Hfa Aerosol Inhaler 2 puff INHALATION Q4H PRN (Reason: Shortness Of Breath Or Wheezing) ondansetron 4 mg Tablet,Disintegrating 4 mg PO Q8H PRN (Reason: NAUSEA/VOMITING) fluticasone propionate 50 mcg/actuation [place],Suspension 2 spray INTRANASAL HS Rx Instructions: administer into each nostril lamotrigine [Lamictal] 100 mg Tablet 100 mg PO BID Saline Nasal 0.65 % Aerosol,[place] 1 spray INTRANASAL DIRECTED PRN (Reason: Congestion) lisdexamfetamine [Vyvanse] 30 mg Capsule 30 mg PO DAILY lisdexamfetamine [Vyvanse] 40 mg Capsule 40 mg PO DAILY Vraylar 3 mg Capsule 3 mg PO DAILY lasmiditan 100 mg Tablet 100 mg PO DIRECTED MDD 2 DAYS/WK. PRN (Reason: SEVERE HEADACHES) Rx Instructions: DO NOT DRIVE FOR 8 HOURS AFTER TAKING. atorvastatin 40 mg Tablet 40 mg PO QAM Qty: 30 0RF propranolol 60 mg Capsule,Extended Release 24 Hr 120 mg PO QAM Qty: 30 0RF valsartan [Diovan] 80 mg Tablet 160 mg PO QAM Qty: 30 0RF amlodipine 10 mg Tablet 10 mg PO DAILY Qty: 30 0RF ibuprofen 200 mg Tablet 400 mg PO Q6H PRN (Reason: Pain) Qty: 0 0RF prazosin 2 mg Capsule 2 mg PO HS Qty: 30 0RF Referrals Referrals: Angelic Pereira DO [Primary Care Provider] -
[2025-06-01] MEDS: cefTRIAXone SODIUM 2,000 MG/50 ML BAG IV STA (21:56)
[2025-06-01] MEDS: ACETAMINOPHEN 1,000 MG/100 ML VIAL IV STA (21:56)
[2025-06-01] MEDS: THIAMINE HCL 100 MG in SYRINGE 9 ML IV STA (22:54)
[2025-06-01] MEDS: ERTAPENEM 1000MG 1,000 MG/10 ML SYR IV STA (22:54)
[2025-06-01] MEDS: SODIUM CHLORIDE 0.9% 1,000 ML IV ONE (22:54)
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
[2025-06-01] MEDS: KETOROLAC TROMETHAMINE 15 MG/ML VIAL IV STA (23:26)
[2025-06-01] MEDS: NICOTINE 21 MG/24 HR TDSY TD STA (23:26)
[2025-06-01 23:55] LABS: Appearance Urine Clear (Clear); Glucose Urine UA Negative (Negative)
[2025-06-02 00:21] LABS: Amphetamines+Metham, Urine Neg (Neg); MDMA (Ecstacy), Urine Neg (Neg); Marijuana, Urine Neg (Neg)
[2025-06-02] MEDS ORDERED: LORazepam Inj 1 MG in SYRINGE 0.5 ML IV PRN (00:38)
[2025-06-02 00:57] LABS: Chlamydia pneumoniae PCR Not Detected (NotDetected); Coronavirus 229E PCR Not Detected (NotDetected); Coronavirus CoV-2 (COVID19)PCR Not Detected (NotDetected); Coronavirus HKU1 PCR Not Detected (NotDetected); Coronavirus NL63 PCR Not Detected (NotDetected); Coronavirus OC43PCR Not Detected (NotDetected); Human Metapneumovirus PCR Not Detected (NotDetected); Parainfluenza Virus 1 PCR Not Detected (NotDetected); Parainfluenza Virus 2 PCR Not Detected (NotDetected); Parainfluenza Virus 3 PCR Not Detected (NotDetected); Parainfluenza Virus 4 PCR Not Detected (NotDetected); Respiratory Syncytial VirusPCR Not Detected (NotDetected); Rhinovirus/Enterovirus PCR Not Detected (NotDetected)
[2025-06-02] MEDS: PROMETHAZINE 12.5 MG/50.5 ML BAG IV PRN (01:22)
[2025-06-02] MEDS ORDERED: BUTALBITAL/ACETAMIN/CAFFEINE TAB PO PRN (03:45)
[2025-06-02] MEDS: KETOROLAC TROMETHAMINE 15 MG/ML VIAL IV ONE ×2 (03:49→13:05)
[2025-06-02] MEDS: lamoTRIgine 100 MG TAB PO SCH (04:26)
[2025-06-02] MEDS: LACTATED RINGER'S 1,000 ML IV ONE (05:34)
[2025-06-02 06:51] LABS: Hematocrit (blood only) 42.1 % (37.0-47.0); Hemoglobin 13.8 g/dl (12.0-16.0); Mean Corpuscular Hemoglobin 30.5 pg (25.0-34.0); Mean Corpuscular Volume 93.1 fL (80.0-100.0); Platelet Count 325 K/uL (130-400); RDW Standard Deviation 44.9 fL (36.4-46.3); Red Blood Count 4.52 M/uL (4.20-5.40); White Blood Count 20.51 K/ul (4.8-10.8)
[2025-06-02 07:11] LABS: Anion Gap 9.0 (3-11); Blood Urea Nitrogen 17.0 mg/dl (6-23); Calcium 9.1 mg/dl (8.6-10.3); Carbon Dioxide 21.0 mmol/L (21-32); Chloride 106.0 mmol/L (98-107); Creatinine Clr Calc Pharmacy 104.6 ml/min; Glucose 77.0 mg/dl (70-99(Fasting)); Immature Granulocytes # (auto) 0.93 K/uL (0.01-0.20); Immature Granulocytes % (auto) 4.5 %; Potassium 4.2 mmol/L (3.5-5.1); Sodium 136.0 mmol/L (136-145)
[2025-06-02 07:48] VITALS: TEMP 97.9
[2025-06-02] MEDS ORDERED: FOLIC ACID 400 MCG TAB PO SCH (09:00)
[2025-06-02] MEDS ORDERED: LOSARTAN POTASSIUM 25 MG TAB PO SCH ×2 (09:00)
[2025-06-02] MEDS ORDERED: THIAMINE HCL 100 MG TAB PO SCH (09:00)
--- NOTE | 2025-06-02 09:22 | Hospitalist Progress Note ---
Date of Service June 02, 2025 Assessment & Plan (1) Sepsis: Plan: Assessment and plan below following discussion of case with ED provider and reviewing patient history/pertinent normal/abnormal diagnostic test results. Sepsis Secondary to HCAP/possible aspiration pneumonia Recent [facility] confinement for headache symptoms -- CT chest no pneumonia afebrile clear breath sounds bilaterally respiratory panel: negative obtain sputum culture -- observe off abx Severe Migraine Flare up -- start Toradol IV, Benadryl IV, Gabapentin BID, Mg IV -- patient reports she had palpitations with Prednisone -- awaiting Neuro consult chronic diastolic heart failure (EF 55%, TTE 2024), patient on the dry side hypertension, stable, patient noted to be hypotensive on orthostatic vitals testing at the ER -- BP improving hx PE status post anti-coagulation hx TIA MASLD past history benzodiazepine/opioid abuse as per records history seizures/pseudoseizure disorder ADHD/anxiety/mood disorder, at baseline ongoing tobacco/alcohol abuse Hold amlodipine and losartan for now Continue beta-dina and prazosin [facility] and Anticipated Discharge Date Admission Date: June 01, 2025 Subjective seen resting in bed, tearful states she is having severe R sided migraine headache no other neuro symptoms no nausea reports mild productive cough no shortness of breath no other sympptoms Review of Systems Review of Systems: all noted and negative except for above Physical Exam Physical Exam: General- oriented x 3, not in distress, speaks in sentences with no effort or accessory muscle use Eyes- anicteric Neck- no JVD Lungs- clear breath sounds no wheezing Heart- normal rate, regular rhythm; no murmurs Abdomen- normal bowel sounds, nondistended, soft, no tenderness Extremities- no pretibial edema, no calf tenderness Neuro- alert, oriented x 3; no gross focal neurologic deficits Skin- warm & dry Results & Data Results & Data Vital Signs (Past 12 Hours) Vital Signs Temp Pulse Pulse Resp BP BP Pulse Ox 06/02/25 07:47 36.6 C 91 H 16 126/86 96 06/02/25 05:00 87 116/81 06/02/25 03:58 06/02/25 03:58 36.7 C 101 H 18 98/75 L 97 06/02/25 03:08 101 H 06/02/25 02:37 36.6 C 104 H 18 122/81 93 06/02/25 02:07 107 H 20 112/79 92 06/02/25 01:39 104 H 20 106/72 95 06/02/25 01:00 103 H 17 123/83 96 06/02/25 00:39 99 H 19 109/75 95 06/02/25 00:30 36.7 C 06/01/25 23:30 97 H 13 132/110 H 96 06/01/25 23:01 86 16 141/101 H 96 06/01/25 22:32 101 H 122/102 H 96 06/01/25 21:30 97 H 99/75 L 96 O2 Del Method 06/02/25 07:47 Room Air 06/02/25 05:00 06/02/25 03:58 Room Air 06/02/25 03:58 Room Air 06/02/25 03:08 06/02/25 02:37 Room Air 06/02/25 02:07 Room Air 06/02/25 01:39 Room Air 06/02/25 01:00 Room Air 06/02/25 00:39 Room Air 06/02/25 00:30 06/01/25 23:30 Room Air 06/01/25 23:01 Room Air 06/01/25 22:32 06/01/25 21:30 all noted and reviewed including below
[2025-06-02] MEDS: NICOTINE 21 MG/24 HR TDSY TD SCH (09:40)
[2025-06-02] MEDS: PROPRANOLOL HCL 60 MG LA CAP PO SCH (09:40)
[2025-06-02] MEDS: PRENATAL VITAMIN 1 TAB PO SCH (09:41)
[2025-06-02] MEDS: CETIRIZINE HCL 10 MG TABLET PO SCH (09:41)
[2025-06-02] MEDS: CARIPRAZINE HCL 3 MG CAP PO SCH (09:41)
[2025-06-02] MEDS: ENOXAPARIN INJ 40 MG/0.4 ML SYR SQ SCH (09:41)
[2025-06-02] MEDS: REMOVE NICODERM PATCH SCH (09:41)
[2025-06-02] MEDS: FAMOTIDINE 10 MG TABLET PO SCH (09:41)
[2025-06-02] MEDS: FOLIC ACID 1 MG TAB PO SCH (09:41)
[2025-06-02] MEDS: THIAMINE HCL 100 MG TAB PO SCH (09:41)
[2025-06-02] MEDS: ATORVASTATIN 40 MG TAB PO SCH (09:41)
[2025-06-02] MEDS: clonazePAM 1 MG TAB PO PRN (09:55)
[2025-06-02] MEDS: ACETAMINOPHEN 325 MG TAB PO PRN (10:53)
[2025-06-02 11:35] VITALS: O2SAT 95
[2025-06-02] MEDS: MULTIVITAMIN TAB PO SCH (12:00)
[2025-06-02] MEDS: diphenhydrAMINE 50 MG/ML VIAL IV STA (13:04)
[2025-06-02] MEDS: MAGNESIUM SULFATE / D5W 1 GM/100 ML BAG IV ONE (13:04)
[2025-06-02] MEDS: GABAPENTIN 300 MG CAP PO SCH (13:49)
[2025-06-02] MEDS ORDERED: KETOROLAC TROMETHAMINE 15 MG/ML VIAL IV PRN (15:10)
[2025-06-02] MEDS ORDERED: GABAPENTIN 600 MG TAB PO STA (19:23)
[2025-06-02] MEDS ORDERED: KETOROLAC 30 MG/ML VIAL IV ONE (19:23)
[2025-06-02] MEDS ORDERED: diphenhydrAMINE 50 MG/ML VIAL IV STA (19:23)
--- NOTE | 2025-06-02 19:29 | Neurology Consultation ---
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 DAILY VANIA Administration Clonazepam 1 mg 06/02/25 02:24 06/02/25 09:55 Clonazepam 1 Mg Tab PO 07/02/25 02:23 1 mg DAILY PRN Administration NEEDED Enoxaparin Sodium 40 mg 06/02/25 09:00 06/02/25 09:41 Enoxaparin Inj 40 Mg/0.4 Ml Syr SQ 07/02/25 08:59 40 mg QAM VANIA Administration Famotidine 10 mg 06/02/25 09:00 06/02/25 09:41 Famotidine 10 Mg Tablet PO 07/02/25 08:59 10 mg DAILY VANIA Administration Folic Acid 1 mg 06/02/25 09:00 06/02/25 09:41 Folic Acid 1 Mg Tab PO 07/02/25 08:59 1 mg QAM VANIA Administration Gabapentin 300 mg 06/02/25 13:00 06/02/25 13:49 Gabapentin 300 Mg Cap PO 07/02/25 12:59 300 mg BID VANIA Administration Promethazine HCl 12.5 mg in 50.5 mls @ 202 mls/hr 06/01/25 23:03 06/02/25 02:15 Phenergan IV 07/01/25 23:02 Infused Q6H PRN Infusion Nausea And Vomiting Lamotrigine 100 mg 06/02/25 02:30 06/02/25 09:41 Lamotrigine 100 Mg Tab PO 07/02/25 02:29 100 mg BID VANIA Administration Protocol Miscellaneous 1 each 06/02/25 08:59 06/02/25 09:41 Remove Nicoderm Patch N/A 07/02/25 08:58 1 each DAILY@0859 VANIA Administration Miscellaneous 1 each 06/02/25 08:00 06/02/25 15:44 (Zaleplon 10 Mg Capsule)~Order Awaiting Action N/A 07/02/25 07:59 Not Given QS VANIA Multivitamins 1 tab 06/02/25 09:00 06/02/25 12:00 Multivitamin Tab PO 07/02/25 08:59 1 tab QAM VANIA Administration Nicotine 1 patch 06/02/25 09:00 06/02/25 09:40 Nicotine 21 Mg/24 Hr Tdsy TD 07/02/25 08:59 1 patch QAM VANIA Administration Oxycodone HCl 5 - 10 mg 06/02/25 04:55 06/02/25 15:43 Oxycodone Hcl Ir 5 Mg Tab (Immediate Release) PO 06/16/25 04:54 10 mg QID PRN Administration Pain Pantoprazole Sodium 40 mg 06/02/25 09:00 06/02/25 09:41 Pantoprazole 40 Mg Tab PO 07/02/25 08:59 40 mg DAILY VANIA Administration Prenat Multivit/[place]/Iron/Folic Ac 1 tab 06/02/25 09:00 06/02/25 09:41 Vitamin 1 Tab PO 07/02/25 08:59 1 tab DAILY VANIA Administration Propranolol HCl 120 mg 06/02/25 09:00 06/02/25 09:40 Propranolol Hcl 60 Mg La Cap PO 07/02/25 08:59 120 mg QAM VANIA Administration Thiamine HCl 100 mg 06/02/25 09:00 06/02/25 09:41 Thiamine Hcl 100 Mg Tab PO 07/02/25 08:59 100 mg QAM VANIA Administration ECG Additional Comments: NSR
[2025-06-02] MEDS ORDERED: SODIUM CHLORIDE 0.9% 1,000 ML IV SCH (19:30)
[2025-06-02 19:32] VITALS: BP 118/76; PULSE 89; RESP 18
--- NOTE | 2025-06-02 19:59 | Communication Note ---
Date of Service: June 02, 2025 Made aware by RN of patient request to leave hospital to AGAINST MEDICAL ADVICE. Patient unhappy with Neurology recommendations for headache. Patient stated she will just go to another hospital where she can get the medication that will work for her headache. Patient not willing to wait for morning provider. Patient intent on departing hospital AGAINST MEDICAL ADVICE despite explanations provided and citation of risks/possible consequences arising from decision to leave AMA which include worsening infection and as an extreme end result. Patient signed AMA form. Dr. Corado to accomplish discharge summary in AM.
[2025-06-02] MEDS ORDERED: PRAZOSIN HCL 1 MG CAP PO SCH ×2 (21:00)
[2025-06-02] MEDS ORDERED: lamoTRIgine 100 MG TAB PO SCH (21:00)
[2025-06-02] MEDS ORDERED: FLUTICASONE PROPIONATE NA SPR 16 GM BTL SCH (21:00)
[2025-06-02] MEDS ORDERED: ERTAPENEM 1000MG 1,000 MG/10 ML SYR IV SCH (22:00)
[2025-06-03] MEDS ORDERED: GABAPENTIN 600 MG TAB PO SCH (09:00)
[2025-06-03] MEDS ORDERED: lamoTRIgine 100 MG TAB PO SCH (09:00)
--- NOTE | 2025-06-04 23:49 | Electrocardiogram Report ---
Test Reason : Blood Pressure : */* mmHG Vent. Rate : 111 BPM Atrial Rate : 111 BPM P-R Int : 144 ms QRS Dur : 90 ms QT Int : 340 ms P-R-T Axes : 67 1 54 degrees QTcB Int : 462 ms Sinus tachycardia Possible Left atrial enlargement Possible Anteroseptal infarct , age undetermined Abnormal ECG When compared with ECG of 20-May-2025 16:59, Questionable change in QRS axis Confirmed by Anmol Thorpe ([id number]) on 06/04/2025 11:49:02 PM Referred By: REFERRED SELF Confirmed By: Anmol Thorpe
[2025-06-06 12:47] LABS: Amobarbital, Urine Conf NEGATIVE ng/mL (<100); Pentobarbital, Urine Conf NEGATIVE ng/mL (<100); Secobarbital, Urine Conf NEGATIVE ng/mL (<100)
== END 2025-06-02 20:18 | disposition left against medical advice (07) | DRG 871 ==
LOC: ED 18:49 → 2N 22:59